=== PATIENT | female | born 1975 | race Caucasian/White ===

== ENCOUNTER 2018-03-11 11:55 | Inpatient (IN) | payer MEDICARE, MEDICAID, SELFPAY ==
[2018-03-11] VITALS (20 sets, daily range): BP systolic 114–156; BP diastolic 65–101; PULSE 92–138; RESP 16–35; TEMP 36.9–37.4; O2SAT 96–100; BMI 39.9; BMI 36.7; BMI 40.0
--- NOTE | 2018-03-11 12:07 | EKG12_ITS ---
Test Reason : DYSRHYTHMIA Blood Pressure : / mmHG Vent. Rate : 111 BPM Atrial Rate : 111 BPM P-R Int : 114 ms QRS Dur : 066 ms QT Int : 326 ms P-R-T Axes : 039 054 045 degrees QTc Int : 443 ms Sinus tachycardia Otherwise normal ECG Confirmed by CARL SAMANO, JAY ([id number]), website/blog editor JOSE MOLINA ([id number]) on 03/13/2018 3:04:38 PM Referred By: BRIGHT Confirmed By:JAY HENRY MD
--- NOTE | 2018-03-11 12:09 | ED.VISSUMM ---
- ER Visit Summary Date of Service: 03/11/18 Chief Complaint: [] Shortness of breath cough low pulse ox History of Present Illness: The patient is a 42 F [] of spina bifida recently admitted to [facility] in [place] for low pulse ox cough fever found to have what sounds like sepsis UTI, per family started on Rocephin discharged on oral cefuroxime about 2 days ago. Per the family she really never improved and during her outpatient stay for the last few days her condition has deteriorated where she continues to be short of breath coughing her pulse ox today was about 77 and she was brought to the hospital at [place] for further management. 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 that she urinates through at times when she does urinate she is straight cath, she has been constipated and recently was started on a bowel regimen and she is been passing runny yellow stool On exam the patient's resting comforting her bed she is on 4 L of oxygen her pulse ox is 99 she just feels tired awake alert family is providing most of her history Physical Examination: [] Vital signs are within normal range resting comforting the bed no distress now that she is on oxygen she is a very short statured individual she has scars to her lower back she has contracted her extremities and her abdomen seems slightly distended her HEENT exam is generally unremarkable her lungs are diminished the heart tones are tachycardic to 100 the abdomen is soft not obviously tender but again slightly distended, there is a stoma in her right lower quadrant that the family reports she urinates out of, rectal exam done with nurse auto damage trainee shows brown stool in the vault no pain no mass she has decreased sensation to her lower extremities which she really cannot move and per family she is awake to her normal mental status Test Results: [] Emergency Department Course and Treatment: [] Given all of the above the low pulse ox the persistence of her symptoms the differential is rather extensive and it would certainly include pneumonia sepsis CHF etc. the patient is never had a DVT or PE, her symptoms began with harsh cough and fever per the family will obtain screening labs flu swab, family reports she had a flu vaccine about a week ago The patient's EKG shows a sinus rhythm nothing acute, the chest x-ray shows nonspecific findings consistent with pulmonary congestion versus interstitial infiltrates, her BNP is about 600, white count is 13, 000, UA shows UTI blood and urine culture sent IV antibiotics started, she has no known history of congestive heart failure at this time I have asked the hospital see her further management and admission she is hemodynamically stable Treatment Plan: [] Disposition: [] Stable admit Impression: [] Dyspnea, possible pneumonia, urinary tract infection, recently treated for sepsis pneumonia and UTI, history of spina bifida This note was generated with [employer] dictation software. It may contain incorrect words, spelling, and punctuation that were not noted in review of the chart prior to signing ED Disposition - Plan for ED Patient: Chief Complaint: Shortness of Breath Referrals: Delores Alford MD [Primary Care Provider] -
--- NOTE | 2018-03-11 12:11 | ED.RN ---
NO OLD EKG'S IN MUSE.
--- NOTE | 2018-03-11 12:14 | ED.DCSUM_ITS ---
- ER Visit Summary Date of Service: 03/11/18 Chief Complaint: [] Shortness of breath cough low pulse ox History of Present Illness: The patient is a 42 F [] of spina bifida recently admitted to [facility] in [place] for low pulse ox cough fever found to have what sounds like sepsis UTI, per family started on Rocephin discharged on oral cefuroxime about 2 days ago. Per the family she really never improved and during her outpatient stay for the last few days her condition has deteriorated where she continues to be short of breath coughing her pulse ox today was about 77 and she was brought to the hospital at [place] for further management. 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 that she urinates through at times when she does urinate she is straight cath, she has been constipated and recently was started on a bowel regimen and she is been passing runny yellow stool On exam the patient's resting comforting her bed she is on 4 L of oxygen her pulse ox is 99 she just feels tired awake alert family is providing most of her history Physical Examination: [] Vital signs are within normal range resting comforting the bed no distress now that she is on oxygen she is a very short statured individual she has scars to her lower back she has contracted her extremities and her abdomen seems slightly distended her HEENT exam is generally unremarkable her lungs are diminished the heart tones are tachycardic to 100 the abdomen is soft not obviously tender but again slightly distended, there is a stoma in her right lower quadrant that the family reports she urinates out of, rectal exam done with nurse children's ministry director shows brown stool in the vault no pain no mass she has decreased sensation to her lower extremities which she really cannot move and per family she is awake to her normal mental status Test Results: [] Emergency Department Course and Treatment: [] Given all of the above the low pulse ox the persistence of her symptoms the differential is rather extensive and it would certainly include pneumonia sepsis CHF etc. the patient is never had a DVT or PE, her symptoms began with harsh cough and fever per the family will obtain screening labs flu swab, family reports she had a flu vaccine about a week ago The patient's EKG shows a sinus rhythm nothing acute, the chest x-ray shows nonspecific findings consistent with pulmonary congestion versus interstitial infiltrates, her BNP is about 600, white count is 13, 000, UA shows UTI blood and urine culture sent IV antibiotics started, she has no known history of congestive heart failure at this time I have asked the hospital see her further management and admission she is hemodynamically stable Treatment Plan: [] Disposition: [] Stable admit Impression: [] Dyspnea, possible pneumonia, urinary tract infection, recently treated for sepsis pneumonia and UTI, history of spina bifida This note was generated with [employer] dictation software. It may contain incorrect words, spelling, and punctuation that were not noted in review of the chart prior to signing ED Disposition - Plan for ED Patient: Chief Complaint: Shortness of Breath Referrals: Delores Alford MD [Primary Care Provider] -
--- NOTE | 2018-03-11 12:20 | RAD_ITS ---
STUDY: X-RAY CHEST REASON FOR EXAM: Female, 42 years old. Shortness of breath TECHNIQUE: Single view of the chest was obtained COMPARISON: August 22, 2014 chest radiograph FINDINGS: Dextroconvex scoliotic curvature with prior rhonda fixation seen. Blunting of the left costophrenic angle may relate with a small left-sided pleural effusion. Increased bilateral reticular markings may relate with pulmonary vascular congestion or interstitial pneumonitis. IMPRESSION: Small left-sided pleural effusion versus pleural thickening. Bilateral increased reticular markings may relate with mild pulmonary vascular congestion or interstitial pneumonitis Electronically Signed: James Burks, at 13:06 EDT Tel , Service support , RAD/Chest 1 View (Portable)
[2018-03-11] MEDS: Ipratropium/Albuterol Sulfate 3 ML AMPUL.NEB INHALATION ×2 (12:26→18:51)
[2018-03-11 12:36] LABS: Mucous, Urine 0 SEEN /hpf (<or=2+)
[2018-03-11 12:46] LABS: Color, Urine Yellow (Yellow); Glucose, Dipstick Normal (Normal); Leukocyte Esterase-Dipstick 100 /ul (Negative); Nitrite-Dipstick Negative (Negative); Occult Blood-Urine 150 /ul (Negative); Protein-Dipstick 100 mg/dl (Negative); Urine Bilirubin Dipstick Negative (Negative); Urine Clarity Sl. Cloudy (Clear); Urine Urobilinogen Normal (Normal)
[2018-03-11 12:49] LABS: Ketone-Dipstick 150 mg/dl (Negative)
[2018-03-11 12:58] LABS: Bacteria RARE /hpf (None Seen); Red Blood Cells-Urine 0-5 SEEN /hpf (0-5); Squamous Epithelial Cells - UA 0-5 SEEN /hpf (5-10); White Blood Cells 5-10 SEEN /hpf (0-5)
[2018-03-11 13:20] LABS: Anion Gap 9 (5-15); BUN 11 mg/dL (7-18); BUN/Creat Ratio 15.4 RATIO (10-20); Calcium,Total 8.4 mg/dL (8.5-10.1); Chloride 107 mmol/L (98-107); Creatinine, Serum 0.72 mg/dL (0.55-1.02); EST Glomerular Filtration Rate 95 mL/min (>60); Est Glom Filt Rate - Afr Amer 115 mL/min (>60); Glucose 70 mg/dL (74-106); Potassium 4.2 mmol/L (3.5-5.1); Sodium Level 142 mmol/L (136-145)
[2018-03-11 13:32] LABS: Absolute Lymphocyte Count 1.87 X10^3/ul (0.83-4.51); Absolute Neutrophil Count 9.7 X10^3/uL (2.0-7.7); Basophil# 0.08 X10^3/uL; Basophil% 0.6 % (0-1); Differential Indicated SCAN CRITERIA MET; Eosinophils% 1.5 % (0-5); Hematocrit 33.4 % (37-47); Hemoglobin 10.5 g/dl (12.0-15.0); Lymphocyte # 1.87 X10^3/ul (4.0); Lymphocyte % 13.8 % (19-41); Mean Corp Hgb Conc 31.4 g/gl (32-36); Mean Corpuscular Hgb 29.5 pg (27.0-32.0); Mean Corpuscular Volume 93.8 fL (81-99); Mean Platelet Vol. 9.9 fl (6.2-12.0); Monocyte# 1.63 X10^3/uL; Monocyte% 12.1 % (0-10); Neutrophil # 9.68 X10^3/uL (2.7-7.7); Neutrophil % 71.6 % (47-70); POSITIVE COUNT NO; POSITIVE DIFFERENTIAL YES; POSITIVE MORPHOLOGY YES; Platelet Count 328 K/mm3 (150-450); RBC Distribution Width CV 15.3 % (11.6-14.6); RBC Distribution Width SD 50.3 fl (35.1-43.9); Red Blood Count 3.56 M/mm3 (4.2-5.4); White Blood Count 13.5 K/mm3 (4.4-11.0)
[2018-03-11 13:33] LABS: Differential Comment SCANNED
[2018-03-11 13:36] LABS: BNP,B-Type NATRIURETIC PEPTIDE 561.7 pg/mL (0-100)
--- NOTE | 2018-03-11 14:16 | ED.RN ---
ED physician cancelled 2nd set of blood cultures, pt has had IV and blood draw attempts multiple times.
--- NOTE | 2018-03-11 14:17 | NURSING ---
FAXED TO [facility] FOR OLD CHART FROM THERE. HOSPITALIST PAGED
--- NOTE | 2018-03-11 14:19 | NURSING ---
DR STEVIE NOVOA
--- NOTE | 2018-03-11 14:29 | NURSING ---
DR HUBBARD IN WITH PATIENT
--- NOTE | 2018-03-11 14:30 | ED.RN ---
lab was then able to get 2nd set of blood cultures
--- NOTE | 2018-03-11 14:50 | PCM.HP.STD ---
Problem List (1) Acute respiratory failure with hypoxia Status: Acute (2) Sepsis Status: Acute (3) Gram-negative pneumonia Status: Acute History of Present Illness Date of Admission: 03/11/18 Chief Complaint: shortness of breath. The patient is a 42 year old F who was admitted at [facility] for constipation as well as Medardo tract infection and sepsis. Patient was able to have a small bowel movement while she was there and I was told that she is short of breath because she is constipated on top of her scoliosis and spina bifida. Was discharged yesterday and was doing okay but today, patient was short of breath. They checked her pulse ox and patient was noted to be in the 70% range. Patient was sent to the emergency room at [facility]. In there the workup showed patient was septic did have a white count. Patient received Rocephin and vancomycin. Blood cultures were drawn. Patient has been having some increasing abdominal distention as well per her family. She has been having some nausea and some vomiting. Patient's last normal bowel movement was about 10 days ago. Family states that they try to have her have a bowel movement twice a week. Patient has no knowledge of when she does have to have a bowel movement given the lack of sensation.[] Past Medical History Past Medical History (Chronic Problems): Chronic Problems (Last Updated 03/11/18 @ 14:54 by Cecil Butts DO) Edema of right lower extremity (Chronic) Spina bifida (Chronic) Medical History: Medical History (Last Updated 03/11/18 @ 14:54 by Cecil Butts DO) Acquired scoliosis M41.9 Spina bifida Q05.9 Allergies amoxicillin [From Augmentin] Allergy (Verified 03/11/18 12:10) Diarrhea azithromycin [From Zithromax Z-Turner] Allergy (Verified 03/11/18 12:10) Diarrhea ciprofloxacin [From Cipro] Allergy (Verified 03/11/18 12:10) Pain in joints clavulanic acid [From Augmentin] Allergy (Verified 03/11/18 12:10) Diarrhea Home Medications: Ambulatory Orders Medication Instructions Recorded Multivitamins,Therapeutic 1 tablet PO DAILY 04/24/13 [Multivitamin] Oxybutynin Chloride [Ditropan Xl] 15 mg PO DAILY 04/24/13 Paroxetine HCl [Paxil] 40 mg PO DAILY 04/24/13 Calcium Carbonate/Vitamin D3 1 each PO DAILY 04/14/16 [Calcium 500-Vit D3 200 Tablet] Cefuroxime Axetil [Ceftin] 250 mg PO BID 04/14/16 Ascorbic Acid [Vitamin C] 1,000 mg PO DAILY 03/11/18 Bacillus Coagulans [Probiotic] 1 each PO DAILY 03/11/18 Docusate Sodium [Colace] 100 mg PO QHS 03/11/18 MedroxyPROGESTERone [Depo-Provera] 150 mg IM .[id number] 03/11/18 Omeprazole [Prilosec] 20 mg PO QHS 03/11/18 Polyethylene Glycol 3350 [Miralax] 17 gm PO DAILY PRN 03/11/18 Surgical History: Surgical History (Last Updated 03/11/18 @ 14:55 by Cecil Butts DO) Hx of cholecystectomy Z90.49 Surgical History: cholecystectomy, - - vertebral rods. ileostomy Psychiatric History: No pertinent psych hx CT SCAN SPECIAL PROCEDURES TECHNOLOGIST History: No pertinent CT SCAN SPECIAL PROCEDURES TECHNOLOGIST history Lives: With Family Smoking Status: Never smoker Tobacco Use: Non-smoker Alcohol: None Drugs: None - *Family History Maternal History Items: - - hypothyroidism Review of Systems Constitutional: Reports: Chills. Denies: Fever Eyes: Denies: Blurred vision, Double vision HEENT: Denies: Head Aches, Sinus Congestion, Sinus Drainage Cardiovascular: Reports: Chest Pain. Denies: Palpitations Respiratory: Reports: Shortness of Breath, Shortness of breath at rest. Denies: Cough Gastrointestinal: Denies: Abdominal Pain, Nausea, Vomiting Genitourinary: Reports: - - ileostomy. Denies: Dysuria Musculoskeletal: Denies: Joint Pain, Joint Tenderness Skin: Denies: Rash, Wounds Neurological: Reports: - - paraplegic. wheelchair-bound. Denies: Balance problems Psychiatric: Denies: Anxiety, Depression Hematologic/ Lymphatic: Denies: Easy Bruising, Easy Bleeding, Hx of blood clot Comment: All review of systems are negative except as mentioned in the history of present illness and the other review of systems. VTE Information - Inpt Only VTE Present on Admission: No VTE Pharm Prophylaxis ordered?: Yes Patient Problems: Active and Suspected Problems (Last Updated 03/11/18 @ 14:54 by Cecil Butts DO) Acute respiratory failure with hypoxia (Acute) Sepsis (Acute) Gram-negative pneumonia (Acute) - Physical Exam General: Alert, Cooperative, No apparent distress HEENT: Atraumatic, PERRLA, EOMI, Normocephalic, - - No scleral icterus Oral: Moist Mucosa, No Gingival or Mucosal Lesions/ Ulcerations Neck: No Nodes, Thyroid Normal Size and Texture Lungs: Diminished, - - Few crackles in right lung field Abdomen: Soft, Non Tender, Distended, - - Ileostomy Extremities: No edema, Capillary Refill Less than 3 Seconds Skin: No rashes, No breakdown Musculoskeletal: No Tenderness to Palpation of Joints or Extremities, Muscle Wasting Neurological: - - No clonus. Muscle strength 5 out of 5 in upper extremities. Psych/Mental Status: Normal Affect, Appropriate Vital Signs Temp Pulse Resp BP Pulse Ox 36.9 C 109 H 22 H 135/90 H 99 03/11/18 11:56 03/11/18 14:19 03/11/18 14:19 03/11/18 14:19 03/11/18 14:19 Oxygen Flow Rate (L/min) 2 Oxygen Delivery Method Nasal Cannula Weight: 80.9 kg Body Mass Index (BMI) 39.9 Microbiology Past 72 Hours 03/11/18 12:40 Influenza Types A,B Direct FA (KELSEY) - Final Mucosa - Nose Laboratory Tests Past 24 Hrs 03/11/18 03/11/18 03/11/18 12:30 12:50 12:50 WBC 13.5 H RBC 3.56 L Hgb 10.5 L Hct 33.4 L MCV 93.8 MCH 29.5 MCHC 31.4 L RDW 15.3 H RDW Differential 50.3 H Plt Count 328 MPV 9.9 Immature Gran % (Auto) 0.400 Neut % (Auto) 71.6 H Lymph % (Auto) 13.8 L [place] % (Auto) 12.1 H Eos % (Auto) 1.5 Baso % (Auto) 0.6 Absolute Neuts (auto) 9.7 H Absolute Lymphs (auto) 1.87 Total Counted Not Reportable Differential Comment SCANNED Sodium 142 Potassium 4.2 Chloride 107 Carbon Dioxide 26.0 Anion Gap 9 BUN 11 Creatinine 0.72 Estim Creat Clear Calc 130.00 Est GFR (MDRD) Af Amer 115 Est GFR (MDRD) Non-Af 95 BUN/Creatinine Ratio 15.4 Glucose 70 L Lactic Acid Calcium 8.4 L Troponin I 0.043 B-Natriuretic Peptide Urine Color Yellow Urine Clarity Sl. Cloudy Urine pH 6.0 Ur Specific [place] 1.020 Urine Protein 100 H Urine Glucose (UA) Normal Urine Ketones 150 H Urine Occult Blood 150 H Urine Nitrite Negative Urine Bilirubin Negative Urine Urobilinogen Normal Ur Leukocyte Esterase 100 H Urine RBC 0-5 SEEN Urine WBC 5-10 SEEN Ur Squamous Epith Cells 0-5 SEEN Urine Bacteria RARE Urine Mucus 0 SEEN 03/11/18 03/11/18 12:50 12:50 WBC RBC Hgb Hct MCV MCH MCHC RDW RDW Differential Plt Count MPV Immature Gran % (Auto) Neut % (Auto) Lymph % (Auto) [place] % (Auto) Eos % (Auto) Baso % (Auto) Absolute Neuts (auto) Absolute Lymphs (auto) Total Counted Differential Comment Sodium Potassium Chloride Carbon Dioxide Anion Gap BUN Creatinine Estim Creat Clear Calc Est GFR (MDRD) Af Amer Est GFR (MDRD) Non-Af BUN/Creatinine Ratio Glucose Lactic Acid 1.0 Calcium Troponin I B-Natriuretic Peptide 561.7 H Urine Color Urine Clarity Urine pH Ur Specific [place] Urine Protein Urine Glucose (UA) Urine Ketones Urine Occult Blood Urine Nitrite Urine Bilirubin Urine Urobilinogen Ur Leukocyte Esterase Urine RBC Urine WBC Ur Squamous Epith Cells Urine Bacteria Urine Mucus EKG reviewed showed normal sinus rhythm without any acute changes. Chest x-ray personally reviewed and showed severe scoliosis with concavity to the right. Does show diminished in lung field in the left with some slight opacity. Unchanged from 2016. Assessment/Plan All Active Problems (Last Updated 03/11/18 @ 14:54 by Cecil Butts DO) Wound, open, foot (Resolved) Acute respiratory failure with hypoxia (Acute) Sepsis (Acute) Gram-negative pneumonia (Acute) 1. Acute hypoxic respiratory failure Currently improved with oxygen Patient was down to 70-80% range at home Unclear this is a specific diagnosis but partly attributable to the patient's severe scoliosis. Unable to evaluate rule out pneumonia at this time. Bronchodilators and pulmonary toilet 2. Sepsis Present on admission Patient was recently treated for a urinary tract infection at the outside hospital Will continue with vancomycin and aztreonam for potential gram-negative pneumonia. 3. Suspected gram-negative pneumonia. Patient was just hospitalized greater than 48 hours at [facility]. Vancomycin and meropenem Pulmonary toilet Check urinary antigens for Streptococcus and Legionella Check influenza 4. Spina bifida and severe scoliosis scoliosis Complicating care 5. DVT prophylaxis with Lovenox 6. Constipation Patient's last normal bowel movement was about 10 days ago We will check an abdominal x-ray as patient does have some abdominal distention. Evaluate for ileus or small bowel obstruction. Discussed with patient's family at bedside. All questions were answered. Code Visit Inpatient E&M: [id number] Init Hosp L3
--- NOTE | 2018-03-11 14:52 | NURSING ---
106 SEPSIS, PNEUMONIA STEVIE
--- NOTE | 2018-03-11 14:54 | HP.PCM_ITS ---
Problem List (1) Acute respiratory failure with hypoxia Status: Acute (2) Sepsis Status: Acute (3) Gram-negative pneumonia Status: Acute History of Present Illness Date of Admission: 03/11/18 Chief Complaint: shortness of breath. The patient is a 42 year old F who was admitted at [facility] for constipation as well as Medardo tract infection and sepsis. Patient was able to have a small bowel movement while she was there and I was told that she is short of breath because she is constipated on top of her scoliosis and spina bifida. Was discharged yesterday and was doing okay but today, patient was short of breath. They checked her pulse ox and patient was noted to be in the 70% range. Patient was sent to the emergency room at [facility]. In there the workup showed patient was septic did have a white count. Patient received Rocephin and vancomycin. Blood cultures were drawn. Patient has been having some increasing abdominal distention as well per her family. She has been having some nausea and some vomiting. Patient's last normal bowel movement was about 10 days ago. Family states that they try to have her have a bowel movement twice a week. Patient has no knowledge of when she does have to have a bowel movement given the lack of sensation.[] Past Medical History Past Medical History (Chronic Problems): Chronic Problems (Last Updated 03/11/18 @ 14:54 by Cecil Butts DO) Edema of right lower extremity (Chronic) Spina bifida (Chronic) Medical History: Medical History (Last Updated 03/11/18 @ 14:54 by Cecil Butts DO) Acquired scoliosis M41.9 Spina bifida Q05.9 Allergies amoxicillin [From Augmentin] Allergy (Verified 03/11/18 12:10) Diarrhea azithromycin [From Zithromax Z-Turner] Allergy (Verified 03/11/18 12:10) Diarrhea ciprofloxacin [From Cipro] Allergy (Verified 03/11/18 12:10) Pain in joints clavulanic acid [From Augmentin] Allergy (Verified 03/11/18 12:10) Diarrhea Home Medications: Ambulatory Orders Medication Instructions Recorded Multivitamins,Therapeutic 1 tablet PO DAILY 04/24/13 [Multivitamin] Oxybutynin Chloride [Ditropan Xl] 15 mg PO DAILY 04/24/13 Paroxetine HCl [Paxil] 40 mg PO DAILY 04/24/13 Calcium Carbonate/Vitamin D3 1 each PO DAILY 04/14/16 [Calcium 500-Vit D3 200 Tablet] Cefuroxime Axetil [Ceftin] 250 mg PO BID 04/14/16 Ascorbic Acid [Vitamin C] 1,000 mg PO DAILY 03/11/18 Bacillus Coagulans [Probiotic] 1 each PO DAILY 03/11/18 Docusate Sodium [Colace] 100 mg PO QHS 03/11/18 MedroxyPROGESTERone [Depo-Provera] 150 mg IM .[id number] 03/11/18 Omeprazole [Prilosec] 20 mg PO QHS 03/11/18 Polyethylene Glycol 3350 [Miralax] 17 gm PO DAILY PRN 03/11/18 Surgical History: Surgical History (Last Updated 03/11/18 @ 14:55 by Cecil Butts DO) Hx of cholecystectomy Z90.49 Surgical History: cholecystectomy, - - vertebral rods. ileostomy Psychiatric History: No pertinent psych hx TRIP RIDER History: No pertinent TRIP RIDER history Lives: With Family Smoking Status: Never smoker Tobacco Use: Non-smoker Alcohol: None Drugs: None - *Family History Maternal History Items: - - hypothyroidism Review of Systems Constitutional: Reports: Chills. Denies: Fever Eyes: Denies: Blurred vision, Double vision HEENT: Denies: Head Aches, Sinus Congestion, Sinus Drainage Cardiovascular: Reports: Chest Pain. Denies: Palpitations Respiratory: Reports: Shortness of Breath, Shortness of breath at rest. Denies: Cough Gastrointestinal: Denies: Abdominal Pain, Nausea, Vomiting Genitourinary: Reports: - - ileostomy. Denies: Dysuria Musculoskeletal: Denies: Joint Pain, Joint Tenderness Skin: Denies: Rash, Wounds Neurological: Reports: - - paraplegic. wheelchair-bound. Denies: Balance problems Psychiatric: Denies: Anxiety, Depression Hematologic/ Lymphatic: Denies: Easy Bruising, Easy Bleeding, Hx of blood clot Comment: All review of systems are negative except as mentioned in the history of present illness and the other review of systems. VTE Information - Inpt Only VTE Present on Admission: No VTE Pharm Prophylaxis ordered?: Yes Patient Problems: Active and Suspected Problems (Last Updated 03/11/18 @ 14:54 by Cecil Butts DO) Acute respiratory failure with hypoxia (Acute) Sepsis (Acute) Gram-negative pneumonia (Acute) - Physical Exam General: Alert, Cooperative, No apparent distress HEENT: Atraumatic, PERRLA, EOMI, Normocephalic, - - No scleral icterus Oral: Moist Mucosa, No Gingival or Mucosal Lesions/ Ulcerations Neck: No Nodes, Thyroid Normal Size and Texture Lungs: Diminished, - - Few crackles in right lung field Abdomen: Soft, Non Tender, Distended, - - Ileostomy Extremities: No edema, Capillary Refill Less than 3 Seconds Skin: No rashes, No breakdown Musculoskeletal: No Tenderness to Palpation of Joints or Extremities, Muscle Wasting Neurological: - - No clonus. Muscle strength 5 out of 5 in upper extremities. Psych/Mental Status: Normal Affect, Appropriate Vital Signs Temp Pulse Resp BP Pulse Ox 36.9 C 109 H 22 H 135/90 H 99 03/11/18 11:56 03/11/18 14:19 03/11/18 14:19 03/11/18 14:19 03/11/18 14:19 Oxygen Flow Rate (L/min) 2 Oxygen Delivery Method Nasal Cannula Weight: 80.9 kg Body Mass Index (BMI) 39.9 Microbiology Past 72 Hours 03/11/18 12:40 Influenza Types A,B Direct FA (KELSEY) - Final Mucosa - Nose Laboratory Tests Past 24 Hrs 03/11/18 03/11/18 03/11/18 12:30 12:50 12:50 WBC 13.5 H RBC 3.56 L Hgb 10.5 L Hct 33.4 L MCV 93.8 MCH 29.5 MCHC 31.4 L RDW 15.3 H RDW Differential 50.3 H Plt Count 328 MPV 9.9 Immature Gran % (Auto) 0.400 Neut % (Auto) 71.6 H Lymph % (Auto) 13.8 L Placer % (Auto) 12.1 H Eos % (Auto) 1.5 Baso % (Auto) 0.6 Absolute Neuts (auto) 9.7 H Absolute Lymphs (auto) 1.87 Total Counted Not Reportable Differential Comment SCANNED Sodium 142 Potassium 4.2 Chloride 107 Carbon Dioxide 26.0 Anion Gap 9 BUN 11 Creatinine 0.72 Estim Creat Clear Calc 130.00 Est GFR (MDRD) Af Amer 115 Est GFR (MDRD) Non-Af 95 BUN/Creatinine Ratio 15.4 Glucose 70 L Lactic Acid Calcium 8.4 L Troponin I 0.043 B-Natriuretic Peptide Urine Color Yellow Urine Clarity Sl. Cloudy Urine pH 6.0 Ur Specific Bryant 1.020 Urine Protein 100 H Urine Glucose (UA) Normal Urine Ketones 150 H Urine Occult Blood 150 H Urine Nitrite Negative Urine Bilirubin Negative Urine Urobilinogen Normal Ur Leukocyte Esterase 100 H Urine RBC 0-5 SEEN Urine WBC 5-10 SEEN Ur Squamous Epith Cells 0-5 SEEN Urine Bacteria RARE Urine Mucus 0 SEEN 03/11/18 03/11/18 12:50 12:50 WBC RBC Hgb Hct MCV MCH MCHC RDW RDW Differential Plt Count MPV Immature Gran % (Auto) Neut % (Auto) Lymph % (Auto) Placer % (Auto) Eos % (Auto) Baso % (Auto) Absolute Neuts (auto) Absolute Lymphs (auto) Total Counted Differential Comment Sodium Potassium Chloride Carbon Dioxide Anion Gap BUN Creatinine Estim Creat Clear Calc Est GFR (MDRD) Af Amer Est GFR (MDRD) Non-Af BUN/Creatinine Ratio Glucose Lactic Acid 1.0 Calcium Troponin I B-Natriuretic Peptide 561.7 H Urine Color Urine Clarity Urine pH Ur Specific Bryant Urine Protein Urine Glucose (UA) Urine Ketones Urine Occult Blood Urine Nitrite Urine Bilirubin Urine Urobilinogen Ur Leukocyte Esterase Urine RBC Urine WBC Ur Squamous Epith Cells Urine Bacteria Urine Mucus EKG reviewed showed normal sinus rhythm without any acute changes. Chest x-ray personally reviewed and showed severe scoliosis with concavity to the right. Does show diminished in lung field in the left with some slight opacity. Unchanged from 2016. Assessment/Plan All Active Problems (Last Updated 03/11/18 @ 14:54 by Cecil Butts DO) Wound, open, foot (Resolved) Acute respiratory failure with hypoxia (Acute) Sepsis (Acute) Gram-negative pneumonia (Acute) 1. Acute hypoxic respiratory failure * Currently improved with oxygen * Patient was down to 70-80% range at home * Unclear this is a specific diagnosis but partly attributable to the patient's severe scoliosis. Unable to evaluate rule out pneumonia at this time. * Bronchodilators and pulmonary toilet 2. Sepsis * Present on admission * Patient was recently treated for a urinary tract infection at the outside hospital * Will continue with vancomycin and aztreonam for potential gram-negative pneumonia. 3. Suspected gram-negative pneumonia. * Patient was just hospitalized greater than 48 hours at [facility]. * Vancomycin and meropenem * Pulmonary toilet * Check urinary antigens for Streptococcus and Legionella * Check influenza 4. Spina bifida and severe scoliosis scoliosis * Complicating care 5. DVT prophylaxis with Lovenox 6. Constipation * Patient's last normal bowel movement was about 10 days ago * We will check an abdominal x-ray as patient does have some abdominal distention. Evaluate for ileus or small bowel obstruction. Discussed with patient's family at bedside. All questions were answered. Code Visit Inpatient E&M: 10795 Init Hosp L3
[2018-03-11] MEDS: Vancomycin IV 1,000 MG/200 ML BAG 200 MG IV (15:26)
--- NOTE | 2018-03-11 15:48 | CT_ITS ---
STUDY: CT CHEST WITH CONTRAST REASON FOR EXAM: Female, 42 years old. Respiratory failure RADIATION DOSAGE (If Supplied By Facility): CTDIvol = ( 15.06 ) mGy, DLP = ( 513.40 ) mGycm TECHNIQUE: Transaxial imaging was performed following intravenous administration of 100 ml of Isovue 300 contrast material. Sagittal and coronal reconstructions were performed. Individualized dose optimization techniques were used for this CT. COMPARISON: Chest radiograph from the same day FINDINGS: There is motion artifact on the images. The lungs are under aerated. There are no focal airspace opacities. There is marked volume loss on the left side compared to the right. There is no demonstrated pleural abnormality. The heart is normal in size. The mediastinum is unremarkable. The hilar regions are unremarkable. The pulmonary arteries are unremarkable. The thoracic aorta is within normal limits. There is marked dextroscoliosis of the thoracic spine. Mota rods are present. The ribs on the left side are smaller than the right. A ventriculoperitoneal shunt catheter traverses the anterior left chest. There are no acute abnormalities in the upper abdomen. CT/Chest WITH Contrast IMPRESSION: There is no focal consolidation. There is no pleural effusion. The appearance on chest radiograph is due to decreased lung volume on the left side compared to the right secondary to small size of the left chest cavity. This is from severe dextroscoliosis of the thoracic spine and abnormal shape of the left ribs. Electronically Signed: Shell Ochoa MD at 20:01 EDT Tel Direct: [phone], Service support ,
--- NOTE | 2018-03-11 16:11 | RAD_ITS ---
STUDY: X-RAY - ABDOMEN/PELVIS REASON FOR EXAM: Female, 42 years old. Abdominal pain TECHNIQUE: Supine views of the abdomen and pelvis were obtained. COMPARISON: Chest radiograph from the same day FINDINGS: There is atelectasis in the left lung base. There is an unremarkable bowel gas pattern. There is no demonstrated free abdominal air. There is contrast in the collecting systems of both kidneys and in the bladder after CT scan. The soft tissues are unremarkable. Mota rods are present in the lower thoracic and lumbar spine. The lower aspect of the right Mota rhonda is broken. 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 RAD/Abdomen Single View (Portable) IMPRESSION: No acute abnormalities are seen in the abdomen or pelvis. Electronically Signed: Shell Ochoa MD at 20:07 EDT Tel Direct: [phone], Service support ,
--- NOTE | 2018-03-11 18:45 | NURSING ---
nurse called into the room by family who states that the patient pulled out her IV attempted twice to restart Iv without success. pt then began getting very anxious, tesnsing up her arms, and pulling the blankets over her head, and coughing, having grunting respirations, seeming to be holding her breath and possibly having a panic attack. pt reassured and comforted by nurse and family. her lips began to look cyanotic, pulse ox checked and was 83% on 2L NC. pt continues to have respiratory distress. Dr Butts called and notified of above, no new orders obtained.
--- NOTE | 2018-03-11 19:10 | NURSING ---
Pt continues to have respiratory distress, pulse ox continues to be around 88% to 90%on 100% 02 non rebreather mask. but having difficulty obtaining accurate pulse ox as pt is very agitated, and moving her arms and tensing up a lot. have been unable to obtain any IV access due to pt's condition. attempted to place pt on bipap, but unable because she states that she is nauseated. Dr Butts notified again, and he is now to the room to see the patient. He states to transfer the patient to ICU.
--- NOTE | 2018-03-11 19:51 | CPS ---
pep and smi in room -pt unable to do at this time
--- NOTE | 2018-03-11 20:00 | NURSING ---
report called and patient transferred to ICU 201.
--- NOTE | 2018-03-11 20:40 | PCM.RX.CS ---
Consult Pharmacy has been consulted to manage selected antiobiotic: Vancomycin Type of Consult: New start Suspected Infection: Sepsis Prior Doses of Antibiotics Received/Current Regimen: Medications Vancomycin HCl (Vancomycin) 1,000 mg in 200 mls @ 200 mls/hr IV Q8H MONE Discontinued Medications Vancomycin HCl (Vancomycin) 1,000 mg in 200 mls @ 200 mls/hr IV X1 ONE Stop: 03/11/18 14:58 Last Admin: 03/11/18 15:26 Dose: 200 mls/hr Labs: Sodium 142 mmol/L (136-145) 03/11/18 12:50 Potassium 4.2 mmol/L (3.5-5.1) 03/11/18 12:50 Chloride 107 mmol/L (98-107) 03/11/18 12:50 Carbon Dioxide 26.0 mmol/L (21.0-32.0) 03/11/18 12:50 Anion Gap 9 (5-15) 03/11/18 12:50 BUN 11 mg/dL (7-18) 03/11/18 12:50 Creatinine 0.72 mg/dL (0.55-1.02) 03/11/18 12:50 Est GFR (MDRD) Af Amer 115 mL/min (>60) 03/11/18 12:50 Est GFR (MDRD) Non-Af 95 mL/min (>60) 03/11/18 12:50 BUN/Creatinine Ratio 15.4 RATIO (10-20) 03/11/18 12:50 Glucose 70 mg/dL (74-106) L 03/11/18 12:50 Microbiology: Microbiology 03/11/18 12:40 Mucosa - Nose Influenza Types A,B Direct FA (KELSEY) - Final Weight used for dosin.1 kg Estimated Creatinine Clearance: 130 Goal Trough: 15-20 mcg/mL Pharmacy Plan for Drug Dosing: Pharmacy Service will continue to monitor and adjust dosing as required. Follow-Up Labs: Trough Vancomycin Labs to be done on [date and time ordered]: 03/12/18 @1500
--- NOTE | 2018-03-11 21:14 | PCM.OP.BLANK ---
Problem List (1) Acute respiratory failure with hypoxia Status: Acute (2) Sepsis Status: Acute (3) Gram-negative pneumonia Status: Acute Operative Report Date of Procedure: 03/11/18 Right internal jugular triple lumen catheter Reason: IV access Risks and benefits were explained to the patient's mother and daughter. Risk being bleeding and amongst others. They agreed to proceed. Procedure: Using sterile technique. Area was prepped and draped in a sterile fashion. Using ultrasound guidance the right internal jugular was identified and the skin was locally anesthetized with lidocaine. Using ultrasound guidance the catheter was cannulated and the guidewire was unable to be advanced. Was reattempted and again successful for cannulation and the guidewire was able to be advanced. It was dilated but the triple-lumen catheter could not be advanced over the guidewire. There was dark nonpulsatile blood noted. The guidewire and drip and catheter were completely removed and pressure was applied for 5 minutes. Patient had little bit of bruising in the area. Patient has a very short stature and her there may be some anatomical issue that may be prohibitive to advancing in the catheter. I evaluated the patient femoral area and there is significant yeast burden in that area region and feel putting a line would pose the patient to additional risks for infection. Follow-up chest x-ray currently pending.
--- NOTE | 2018-03-11 21:30 | RAD_ITS ---
STUDY: X-RAY CHEST REASON FOR EXAM: Female, 42 years old. Central line attempt TECHNIQUE: A single frontal view of the chest was obtained. COMPARISON: Chest radiograph from the same day FINDINGS: A ventriculoperitoneal shunt catheter traverses the left chest. The lungs are underaerated. There are increased interstitial markings throughout the lungs. There are no focal airspace opacities. There is no demonstrated pleural abnormality. The cardiac silhouette is normal in size allowing for low volume inspiration. The mediastinum and hilar regions are unremarkable. Normal visualized pulmonary arteries. Normal visualized aortic arch and descending thoracic aorta. There is marked dextroscoliosis of the thoracic spine. Mota rods are present in the lower thoracic spine. The visualized ribs, clavicles, and shoulders are unremarkable. There is no demonstrated abnormality of the visualized upper abdomen. RAD/CXR for Line Placement IMPRESSION: There are no acute abnormalities. There is no evidence of pneumothorax on the right side. Electronically Signed: Shell Ochoa MD at 22:12 EDT Tel Direct: [phone], Service support ,
--- NOTE | 2018-03-11 22:36 | ECHOCS_ITS ---
Reason For Study: CHF Procedure This was a 2D Doppler, Color Flow transthoracic echocardiogram. The study was technically difficult. Contrast injection was performed. The study was technically limited. Exam performed portable in ICU/CCU. Left Ventricle Normal LV size. Left ventricular systolic function is normal. The estimated ejection fraction is 60 %. No regional wall motion abnormalities noted. Right Ventricle Normal RV size. Normal systolic function. Atria Normal left atrium. Normal right atrium. Mitral Valve Normal mitral valve. Tricuspid Valve Normal tricuspid valve. Mild (1+) tricuspid valve insufficiency. Pulmonary artery systolic pressure is 37 mmHg. Aortic Valve Normal aortic valve. Trisinus/trileaflet aortic valve. Pulmonic Valve The pulmonic valve is not well visualized. Great Vessels Normal aortic root. The pulmonary artery is normal size. Normal inferior vena cava. Pericardium/Pleural No pericardial effusion. Medication Diluted definity 3ml given slow IV push to enhance endocardial definition. MMode/2D Measurements & Calculations LVIDd: 3.4 cm IVSd: 0.62 cm Ao root diam: 3.1 cm LVIDs: 2.3 cm LVPWd: 0.61 cm LA dimension: 3.3 cm FS: 32.8 % LVAd ap4: 22.1 cm2 SV(MOD-sp4): 40.0 ml SV(sp4-el): 41.2 ml EDV(MOD-sp4): 59.3 ml EDV(sp4-el): 60.9 ml LVAs ap4: 11.3 cm2 ESV(MOD-sp4): 19.3 ml ESV(sp4-el): 19.7 ml EF(MOD-sp4): 67.4 % EF(sp4-el): 67.7 % Doppler Measurements & Calculations MV E max mikael: 102.6 cm/sec Lat Peak E' Mikael: 7.4 cm/sec Med Peak E' Mikael: 5.2 cm/sec MV A max mikael: 85.3 cm/sec E/E' lat: 13.8 E/E' med: 19.6 MV E/A: 1.2 Ao V2 max: 122.0 cm/sec LV V1 max: 97.7 cm/sec PA V2 max: 143.5 cm/sec Ao max P.0 mmHg LV V1 max P.8 mmHg TR max mikael: 287.2 cm/sec TR max P.1 mmHg Interpretation Summary Normal LV size. Left ventricular systolic function is normal. The estimated ejection fraction is 60 %. Mild (1+) tricuspid valve insufficiency. Pulmonary artery systolic pressure is 37 mmHg. Contrast injection was performed. The study was technically difficult. Ordering Physician: Cecil Butts Referring Physician: CHRISTOPHE PENA MD Performed By: Brenda Waterman, KARY, RVT
[2018-03-11] MEDS: Pantoprazole Sodium 20 MG Tablet PO (22:54)
[2018-03-11] MEDS: Docusate Sodium 100 MG Capsule PO (22:54)
[2018-03-11] MEDS: Furosemide 40 MG Tablet PO (22:54)
[2018-03-11] MEDS: guaiFENesin 1,200 MG Tablet 1200 MG PO (22:54)
[2018-03-11] MEDS: Azithromycin 250 MG Tablet 500 MG PO (22:54)
[2018-03-12] VITALS (36 sets, daily range): BP systolic 113–158; BP diastolic 69–100; PULSE 93–128; RESP 12–27; TEMP 36.5–37.6; O2SAT 95–100
--- NOTE | 2018-03-12 01:15 | NURSING ---
Spoke with [employer] ray blowing engineer. She said someone will be in touch later this morning with an ETA.
--- NOTE | 2018-03-12 02:30 | CPS ---
PT SWITCHED TO BILEVEL 16/10 35% FROM CPAP OF 8CMH20 30% DUE TO LOW SPO2 AND APNEAS WHILE SLEEPING. PT TOLERATED WELL.
[2018-03-12] MEDS: Ipratropium/Albuterol Sulfate 3 ML AMPUL.NEB INHALATION ×5 (06:34→23:07)
--- NOTE | 2018-03-12 07:35 | PCM.CON.CC ---
Reason for Consult Date of Consultation: 03/12/18 Reason for Consultation: Acute respiratory failure History of Present Illness: The patient is a 42-year-old female, with a history as outlined below, who presented to the emergency department on March 11 with hypoxia and shortness of breath. The patient was recently admitted to [facility] reportedly treated for a urinary tract infection. Per the patient's family, the patient was experiencing shortness of breath even upon her discharge from the outside hospital. They were periodically checking her oxygen saturations in her home environment and in the day leading up to her hospital admission, she was noted to be hypoxic with oxygen saturations in the 70s and 80s. She denies the presence of a cough. However, she does have a history of obstructive sleep apnea, for which she utilizes nocturnal CPAP therapy. She gets around by wheelchair and per the patient's family has good quality of life. On presentation to the emergency department, the patient was initially noted to be afebrile, mildly tachycardic and hemodynamically stable. She was hypoxic requiring supplemental oxygen to maintain saturations. Laboratory evaluation revealed elevated white blood cell count to 13,000. Chemistry profile was largely unremarkable. Serum lactate was within normal limits. Troponin was negative. BNP was elevated to 561. Urinalysis revealed negative nitrates, positive leukocyte esterase and rare bacteria. A CT chest was obtained which revealed no acute cardiopulmonary process. The patient received supplemental IV fluid hydration and was started on antibiotics for suspected sepsis. She was initially admitted to the medical floor, where she later deteriorated with increasing oxygen requirement, requiring a transfer to the medical intensive care unit for ongoing management. Past Medical History Past Medical History (Chronic Problems): Chronic Problems (Last Updated 03/11/18 @ 14:54 by Cecil Butts DO) Edema of right lower extremity (Chronic) Spina bifida (Chronic) Medical History: Medical History (Last Updated 03/11/18 @ 14:54 by Cecil Butts DO) Acquired scoliosis M41.9 Spina bifida Q05.9 Allergies amoxicillin [From Augmentin] Allergy (Verified 03/11/18 12:10) Diarrhea azithromycin [From Zithromax Z-Turner] Allergy (Verified 03/11/18 12:10) Diarrhea ciprofloxacin [From Cipro] Allergy (Verified 03/11/18 12:10) Pain in joints clavulanic acid [From Augmentin] Allergy (Verified 03/11/18 12:10) Diarrhea Home Medications: Ambulatory Orders Medication Instructions Recorded Multivitamins,Therapeutic 1 tablet PO QHS 04/24/13 [Multivitamin] Oxybutynin Chloride [Ditropan Xl] 15 mg PO QHS 04/24/13 Paroxetine HCl [Paxil] 40 mg PO QHS 04/24/13 Calcium Carbonate/Vitamin D3 1 each PO QHS 04/14/16 [Calcium 500-Vit D3 200 Tablet] Cefuroxime Axetil [Ceftin] 250 mg PO BID 04/14/16 Ascorbic Acid [Vitamin C] 1,000 mg PO DAILY 03/11/18 Bacillus Coagulans [Probiotic] 1 each PO QHS 03/11/18 Docusate Sodium [Colace] 100 mg PO QHS 03/11/18 MedroxyPROGESTERone [Depo-Provera] 150 mg IM .[id number] 03/11/18 Omeprazole [Prilosec] 20 mg PO QHS 03/11/18 Polyethylene Glycol 3350 [Miralax] 17 gm PO DAILY PRN 03/11/18 Surgical History: Surgical History (Last Updated 03/11/18 @ 14:55 by Cecil Butts DO) Hx of cholecystectomy Z90.49 Surgical History: cholecystectomy, - - vertebral rods. 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 Lives: With Family Smoking Status: Never smoker Tobacco Use: Non-smoker Alcohol: None Drugs: None - *Family History Maternal History Items: - - hypothyroidism Review of Systems Constitutional: Denies: Chills, Fever Eyes: Denies: Blurred vision, Double vision HEENT: Denies: Head Aches, Sinus Congestion, Sinus Drainage Cardiovascular: Denies: Chest Pain, Palpitations Respiratory: Reports: Shortness of Breath Gastrointestinal: Denies: Abdominal Pain, Nausea, Vomiting Genitourinary: Denies: Dysuria Musculoskeletal: Denies: Joint Pain, Joint Tenderness Skin: Denies: Rash, Wounds Neurological: Denies: Numbness, Tingling, Focal weakness Psychiatric: Reports: Anxiety Hematologic/ Lymphatic: Denies: Easy Bruising, Easy Bleeding, Hx of blood clot Patient Problems: Active and Suspected Problems (Last Updated 03/11/18 @ 14:54 by Cecil Butts DO) Acute respiratory failure with hypoxia (Acute) Sepsis (Acute) Gram-negative pneumonia (Acute) Objective: The patient's most recent lab work, culture data and imaging studies have all been personally reviewed. Strep and urine Legionella antigens were both negative. Urine culture is pending. Rapid influenza screen was negative. Blood cultures are pending. - Physical Exam General: - - Currently on BiPAP. Somnolent but will arouse and answer simple questions. HEENT: Atraumatic, PERRLA, Normocephalic Oral: Dry Mucosa Neck: Supple, No Nodes, Trachea Midline Lungs: No rhonchi, No wheeze, No rales, Diminished Cardiovascular: Regular rate, Regular Rhythm, Normal S1, Normal S2, No murmurs Abdomen: Bowel Sounds Present, Soft, Non Tender Extremities: No clubbing, No edema Skin: No breakdown Musculoskeletal: - - Severe thoracic dextroscoliosis Neurological: Neuro grossly intact Psych/Mental Status: Normal Affect, Appropriate Vital Signs Temp Pulse Resp BP Pulse Ox 99.5 F H 95 15 136/74 H 100 03/12/18 02:00 03/12/18 06:00 03/12/18 06:00 03/12/18 06:00 03/12/18 06:00 Oxygen Flow Rate (L/min) 2 Oxygen Delivery Method Non-Rebreather Weight: 163 lb 5.8 oz Body Mass Index (BMI) 36.7 Intake and Output for Last 24 Hours 03/10/18 03/11/18 03/12/18 23:59 23:59 23:59 Intake Total 1135 / 1135 Output Total 650 / 650 575 / 575 Balance 485 / 485 -575 / -575 Microbiology Past 72 Hours 03/11/18 12:20 Legionella Antigen - Final Urine Catheter - Catheter 03/11/18 12:20 Streptococcus pneumoniae Antigen (M - Final Urine Catheter - Catheter 03/11/18 12:40 Influenza Types A,B Direct FA (KELSEY) - Final Mucosa - Nose Laboratory Tests Past 24 Hrs 03/11/18 03/11/18 03/11/18 12:30 12:50 12:50 WBC 13.5 H RBC 3.56 L Hgb 10.5 L Hct 33.4 L MCV 93.8 MCH 29.5 MCHC 31.4 L RDW 15.3 H RDW Differential 50.3 H Plt Count 328 MPV 9.9 Immature Gran % (Auto) 0.400 Neut % (Auto) 71.6 H Lymph % (Auto) 13.8 L [place] % (Auto) 12.1 H Eos % (Auto) 1.5 Baso % (Auto) 0.6 Absolute Neuts (auto) 9.7 H Absolute Lymphs (auto) 1.87 Total Counted Not Reportable Differential Comment SCANNED Sodium 142 Potassium 4.2 Chloride 107 Carbon Dioxide 26.0 Anion Gap 9 BUN 11 Creatinine 0.72 Estim Creat Clear Calc 130.00 Est GFR (MDRD) Af Amer 115 Est GFR (MDRD) Non-Af 95 BUN/Creatinine Ratio 15.4 Glucose 70 L Lactic Acid Calcium 8.4 L Troponin I 0.043 B-Natriuretic Peptide Urine Color Yellow Urine Clarity Sl. Cloudy Urine pH 6.0 Ur Specific [place] 1.020 Urine Protein 100 H Urine Glucose (UA) Normal Urine Ketones 150 H Urine Occult Blood 150 H Urine Nitrite Negative Urine Bilirubin Negative Urine Urobilinogen Normal Ur Leukocyte Esterase 100 H Urine RBC 0-5 SEEN Urine WBC 5-10 SEEN Ur Squamous Epith Cells 0-5 SEEN Urine Bacteria RARE Urine Mucus 0 SEEN 03/11/18 03/11/18 12:50 12:50 WBC RBC Hgb Hct MCV MCH MCHC RDW RDW Differential Plt Count MPV Immature Gran % (Auto) Neut % (Auto) Lymph % (Auto) [place] % (Auto) Eos % (Auto) Baso % (Auto) Absolute Neuts (auto) Absolute Lymphs (auto) Total Counted Differential Comment Sodium Potassium Chloride Carbon Dioxide Anion Gap BUN Creatinine Estim Creat Clear Calc Est GFR (MDRD) Af Amer Est GFR (MDRD) Non-Af BUN/Creatinine Ratio Glucose Lactic Acid 1.0 Calcium Troponin I B-Natriuretic Peptide 561.7 H Urine Color Urine Clarity Urine pH Ur Specific [place] Urine Protein Urine Glucose (UA) Urine Ketones Urine Occult Blood Urine Nitrite Urine Bilirubin Urine Urobilinogen Ur Leukocyte Esterase Urine RBC Urine WBC Ur Squamous Epith Cells Urine Bacteria Urine Mucus Clinical Impression(s) from Imaging Studies Chest X-Ray 03/11/18 12:[address] 03/11/18 15:48 IMPRESSION: There is no focal consolidation. There is no pleural effusion. The appearance on chest radiograph is due to decreased lung volume on the left side compared to the right secondary to small size of the left chest cavity. This is from severe dextroscoliosis of the thoracic spine and abnormal shape of the left ribs. Electronically Signed: Shell Ochoa MD at 20:01 EDT Tel Direct: [phone], Service support , KUB X-Ray 03/11/18 16:11 IMPRESSION: No acute abnormalities are seen in the abdomen or pelvis. Electronically Signed: Shell Ochoa MD at 20:07 EDT Tel Direct: [phone], Service support , Chest X-Ray 03/11/18 21:30 IMPRESSION: There are no acute abnormalities. There is no evidence of pneumothorax on the right side. Electronically Signed: Shell Ochoa MD at 22:12 EDT Tel Direct: [phone], Service support , Assessment/Plan Active and Suspected Problems (Last Updated 03/11/18 @ 14:54 by Cecil Butts DO) Acute respiratory failure with hypoxia (Acute) Sepsis (Acute) Gram-negative pneumonia (Acute) RECOMMENDATIONS: 1. Place PICC line and continue empiric antibiotics, pending infectious workup. 2. Wean supplemental oxygen to maintain saturations at or above 90%. 3. Continue nocturnal PAP therapy with sleeping. 4. Encourage incentive spirometer use. 5. Obtain respiratory viral panel. 6. Obtain repeat arterial blood gas if the patient's mentation changes. 7. Obtain echocardiogram IMPRESSIONS: 1. Acute hypoxemic respiratory failure The exact precipitating etiology is a bit unclear. The CT scan did not reveal a discernible infectious process. Alternative considerations include VQ mismatch from atelectasis versus tracheal bronchitis versus heart failure with fluid overload state. Regardless, the patient has responded to noninvasive positive pressure ventilation and is currently maintaining appropriate oxygen saturations on minimal O2. Recommend continuing to wean as tolerated. Given her history of obstructive sleep apnea, recommend continuing nocturnal PAP therapy on a nightly basis. Empiric antibiotics will be continued once PICC line has been established, pending infectious workup. Echocardiogram is currently pending. 2. Questionable CHF Echocardiogram is currently pending. Recommend transitioning from p.o. to IV Lasix today. 3. History of obstructive sleep apnea The patient does have a reported history of obstructive sleep apnea of unknown severity. She is reportedly compliant with the use of nocturnal CPAP therapy. She is currently scheduled to follow-up with Dr. Mack tomorrow. In the interim, recommend continuing nocturnal PAP therapy with sleeping. 4. Anxiety/depression/GERD/constipation/baseline spina bifida/scoliosis Complicates care, management, recovery and prognosis. Likely okay to continue home medications. TIME: 40 minutes of critical care time, independent of procedures, was spent addressing the patient's acute hypoxic respiratory failure, questionable CHF, history of obstructive sleep apnea, review of all data and collaboration with the care team. ([id number]) Code Visit 9xxxx: [id number] Critical care first hour
--- NOTE | 2018-03-12 07:39 | CON.PCM_ITS ---
Reason for Consult Date of Consultation: 03/12/18 Reason for Consultation: Acute respiratory failure History of Present Illness: The patient is a 42-year-old female, with a history as outlined below, who presented to the emergency department on March 11 with hypoxia and shortness of breath. The patient was recently admitted to [facility] reportedly treated for a urinary tract infection. Per the patient's family, the patient was experiencing shortness of breath even upon her discharge from the outside hospital. They were periodically checking her oxygen saturations in her home environment and in the day leading up to her hospital admission, she was noted to be hypoxic with oxygen saturations in the 70s and 80s. She denies the presence of a cough. However, she does have a history of obstructive sleep apnea, for which she utilizes nocturnal CPAP therapy. She gets around by wheelchair and per the patient's family has good quality of life. On presentation to the emergency department, the patient was initially noted to be afebrile, mildly tachycardic and hemodynamically stable. She was hypoxic requiring supplemental oxygen to maintain saturations. Laboratory evaluation revealed elevated white blood cell count to 13,000. Chemistry profile was largely unremarkable. Serum lactate was within normal limits. Troponin was negative. BNP was elevated to 561. Urinalysis revealed negative nitrates, positive leukocyte esterase and rare bacteria. A CT chest was obtained which revealed no acute cardiopulmonary process. The patient received supplemental IV fluid hydration and was started on antibiotics for suspected sepsis. She was initially admitted to the medical floor, where she later deteriorated with increasing oxygen requirement, requiring a transfer to the medical intensive care unit for ongoing management. Past Medical History Past Medical History (Chronic Problems): Chronic Problems (Last Updated 03/11/18 @ 14:54 by Cecil Butts DO) Edema of right lower extremity (Chronic) Spina bifida (Chronic) Medical History: Medical History (Last Updated 03/11/18 @ 14:54 by eCcil Butts DO) Acquired scoliosis M41.9 Spina bifida Q05.9 Allergies amoxicillin [From Augmentin] Allergy (Verified 03/11/18 12:10) Diarrhea azithromycin [From Zithromax Z-Turner] Allergy (Verified 03/11/18 12:10) Diarrhea ciprofloxacin [From Cipro] Allergy (Verified 03/11/18 12:10) Pain in joints clavulanic acid [From Augmentin] Allergy (Verified 03/11/18 12:10) Diarrhea Home Medications: Ambulatory Orders Medication Instructions Recorded Multivitamins,Therapeutic 1 tablet PO QHS 04/24/13 [Multivitamin] Oxybutynin Chloride [Ditropan Xl] 15 mg PO QHS 04/24/13 Paroxetine HCl [Paxil] 40 mg PO QHS 04/24/13 Calcium Carbonate/Vitamin D3 1 each PO QHS 04/14/16 [Calcium 500-Vit D3 200 Tablet] Cefuroxime Axetil [Ceftin] 250 mg PO BID 04/14/16 Ascorbic Acid [Vitamin C] 1,000 mg PO DAILY 03/11/18 Bacillus Coagulans [Probiotic] 1 each PO QHS 03/11/18 Docusate Sodium [Colace] 100 mg PO QHS 03/11/18 MedroxyPROGESTERone [Depo-Provera] 150 mg IM .[id number] 03/11/18 Omeprazole [Prilosec] 20 mg PO QHS 03/11/18 Polyethylene Glycol 3350 [Miralax] 17 gm PO DAILY PRN 03/11/18 Surgical History: Surgical History (Last Updated 03/11/18 @ 14:55 by Cecil Butts DO) Hx of cholecystectomy Z90.49 Surgical History: cholecystectomy, - - vertebral rods. 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 Lives: With Family Smoking Status: Never smoker Tobacco Use: Non-smoker Alcohol: None Drugs: None - *Family History Maternal History Items: - - hypothyroidism Review of Systems Constitutional: Denies: Chills, Fever Eyes: Denies: Blurred vision, Double vision HEENT: Denies: Head Aches, Sinus Congestion, Sinus Drainage Cardiovascular: Denies: Chest Pain, Palpitations Respiratory: Reports: Shortness of Breath Gastrointestinal: Denies: Abdominal Pain, Nausea, Vomiting Genitourinary: Denies: Dysuria Musculoskeletal: Denies: Joint Pain, Joint Tenderness Skin: Denies: Rash, Wounds Neurological: Denies: Numbness, Tingling, Focal weakness Psychiatric: Reports: Anxiety Hematologic/ Lymphatic: Denies: Easy Bruising, Easy Bleeding, Hx of blood clot Patient Problems: Active and Suspected Problems (Last Updated 03/11/18 @ 14:54 by Cecil Butts DO) Acute respiratory failure with hypoxia (Acute) Sepsis (Acute) Gram-negative pneumonia (Acute) Objective: The patient's most recent lab work, culture data and imaging studies have all been personally reviewed. Strep and urine Legionella antigens were both negative. Urine culture is pending. Rapid influenza screen was negative. Blood cultures are pending. - Physical Exam General: - - Currently on BiPAP. Somnolent but will arouse and answer simple questions. HEENT: Atraumatic, PERRLA, Normocephalic Oral: Dry Mucosa Neck: Supple, No Nodes, Trachea Midline Lungs: No rhonchi, No wheeze, No rales, Diminished Cardiovascular: Regular rate, Regular Rhythm, Normal S1, Normal S2, No murmurs Abdomen: Bowel Sounds Present, Soft, Non Tender Extremities: No clubbing, No edema Skin: No breakdown Musculoskeletal: - - Severe thoracic dextroscoliosis Neurological: Neuro grossly intact Psych/Mental Status: Normal Affect, Appropriate Vital Signs Temp Pulse Resp BP Pulse Ox 99.5 F H 95 15 136/74 H 100 03/12/18 02:00 03/12/18 06:00 03/12/18 06:00 03/12/18 06:00 03/12/18 06:00 Oxygen Flow Rate (L/min) 2 Oxygen Delivery Method Non-Rebreather Weight: 163 lb 5.8 oz Body Mass Index (BMI) 36.7 Intake and Output for Last 24 Hours 03/10/18 03/11/18 03/12/18 23:59 23:59 23:59 Intake Total 1135 / 1135 Output Total 650 / 650 575 / 575 Balance 485 / 485 -575 / -575 Microbiology Past 72 Hours 03/11/18 12:20 Legionella Antigen - Final Urine Catheter - Catheter 03/11/18 12:20 Streptococcus pneumoniae Antigen (M - Final Urine Catheter - Catheter 03/11/18 12:40 Influenza Types A,B Direct FA (KELSEY) - Final Mucosa - Nose Laboratory Tests Past 24 Hrs 03/11/18 03/11/18 03/11/18 12:30 12:50 12:50 WBC 13.5 H RBC 3.56 L Hgb 10.5 L Hct 33.4 L MCV 93.8 MCH 29.5 MCHC 31.4 L RDW 15.3 H RDW Differential 50.3 H Plt Count 328 MPV 9.9 Immature Gran % (Auto) 0.400 Neut % (Auto) 71.6 H Lymph % (Auto) 13.8 L [place] % (Auto) 12.1 H Eos % (Auto) 1.5 Baso % (Auto) 0.6 Absolute Neuts (auto) 9.7 H Absolute Lymphs (auto) 1.87 Total Counted Not Reportable Differential Comment SCANNED Sodium 142 Potassium 4.2 Chloride 107 Carbon Dioxide 26.0 Anion Gap 9 BUN 11 Creatinine 0.72 Estim Creat Clear Calc 130.00 Est GFR (MDRD) Af Amer 115 Est GFR (MDRD) Non-Af 95 BUN/Creatinine Ratio 15.4 Glucose 70 L Lactic Acid Calcium 8.4 L Troponin I 0.043 B-Natriuretic Peptide Urine Color Yellow Urine Clarity Sl. Cloudy Urine pH 6.0 Ur Specific [place] 1.020 Urine Protein 100 H Urine Glucose (UA) Normal Urine Ketones 150 H Urine Occult Blood 150 H Urine Nitrite Negative Urine Bilirubin Negative Urine Urobilinogen Normal Ur Leukocyte Esterase 100 H Urine RBC 0-5 SEEN Urine WBC 5-10 SEEN Ur Squamous Epith Cells 0-5 SEEN Urine Bacteria RARE Urine Mucus 0 SEEN 03/11/18 03/11/18 12:50 12:50 WBC RBC Hgb Hct MCV MCH MCHC RDW RDW Differential Plt Count MPV Immature Gran % (Auto) Neut % (Auto) Lymph % (Auto) [place] % (Auto) Eos % (Auto) Baso % (Auto) Absolute Neuts (auto) Absolute Lymphs (auto) Total Counted Differential Comment Sodium Potassium Chloride Carbon Dioxide Anion Gap BUN Creatinine Estim Creat Clear Calc Est GFR (MDRD) Af Amer Est GFR (MDRD) Non-Af BUN/Creatinine Ratio Glucose Lactic Acid 1.0 Calcium Troponin I B-Natriuretic Peptide 561.7 H Urine Color Urine Clarity Urine pH Ur Specific [place] Urine Protein Urine Glucose (UA) Urine Ketones Urine Occult Blood Urine Nitrite Urine Bilirubin Urine Urobilinogen Ur Leukocyte Esterase Urine RBC Urine WBC Ur Squamous Epith Cells Urine Bacteria Urine Mucus Clinical Impression(s) from Imaging Studies Chest X-Ray 03/11/18 12:[address] 03/11/18 15:48 IMPRESSION: There is no focal consolidation. There is no pleural effusion. The appearance on chest radiograph is due to decreased lung volume on the left side compared to the right secondary to small size of the left chest cavity. This is from severe dextroscoliosis of the thoracic spine and abnormal shape of the left ribs. Electronically Signed: Shell Ochoa MD at 20:01 EDT Tel Direct: [phone], Service support , KUB X-Ray 03/11/18 16:11 IMPRESSION: No acute abnormalities are seen in the abdomen or pelvis. Electronically Signed: Shell Ochoa MD at 20:07 EDT Tel Direct: [phone], Service support , Chest X-Ray 03/11/18 21:30 IMPRESSION: There are no acute abnormalities. There is no evidence of pneumothorax on the right side. Electronically Signed: Shell Ochoa MD at 22:12 EDT Tel Direct: [phone], Service support , Assessment/Plan Active and Suspected Problems (Last Updated 03/11/18 @ 14:54 by Cecil Butts DO) Acute respiratory failure with hypoxia (Acute) Sepsis (Acute) Gram-negative pneumonia (Acute) RECOMMENDATIONS: 1. Place PICC line and continue empiric antibiotics, pending infectious workup. 2. Wean supplemental oxygen to maintain saturations at or above 90%. 3. Continue nocturnal PAP therapy with sleeping. 4. Encourage incentive spirometer use. 5. Obtain respiratory viral panel. 6. Obtain repeat arterial blood gas if the patient's mentation changes. 7. Obtain echocardiogram IMPRESSIONS: 1. Acute hypoxemic respiratory failure The exact precipitating etiology is a bit unclear. The CT scan did not reveal a discernible infectious process. Alternative considerations include VQ mismatch from atelectasis versus tracheal bronchitis versus heart failure with fluid overload state. Regardless, the patient has responded to noninvasive positive pressure ventilation and is currently maintaining appropriate oxygen saturations on minimal O2. Recommend continuing to wean as tolerated. Given her history of obstructive sleep apnea, recommend continuing nocturnal PAP therapy on a nightly basis. Empiric antibiotics will be continued once PICC line has been established, pending infectious workup. Echocardiogram is currently pending. 2. Questionable CHF Echocardiogram is currently pending. Recommend transitioning from p.o. to IV Lasix today. 3. History of obstructive sleep apnea The patient does have a reported history of obstructive sleep apnea of unknown severity. She is reportedly compliant with the use of nocturnal CPAP therapy. She is currently scheduled to follow-up with Dr. Mack tomorrow. In the interim, recommend continuing nocturnal PAP therapy with sleeping. 4. Anxiety/depression/GERD/constipation/baseline spina bifida/scoliosis Complicates care, management, recovery and prognosis. Likely okay to continue home medications. TIME: 40 minutes of critical care time, independent of procedures, was spent addressing the patient's acute hypoxic respiratory failure, questionable CHF, history of obstructive sleep apnea, review of all data and collaboration with the care team. ([id number]) Code Visit 9xxxx: [id number] Critical care first hour
--- NOTE | 2018-03-12 07:41 | PCM.PN.HOSP ---
Patient Problems: Active and Suspected Problems (Last Updated 03/11/18 @ 14:54 by Cecil Butts DO) Acute respiratory failure with hypoxia (Acute) Sepsis (Acute) Gram-negative pneumonia (Acute) Subjective: Patient transitioned following admission to ICU on BiPAP with improvement overnight with ability to transition this morning to nasal cannula. Discussed with ICU staff and family and at this time not convinced of pneumonia; however, we will continue antibiotic therapy pending echocardiogram and further cardiology evaluation given concern for possible volume overload as etiology for current acute presentation. Patient notes feeling improved and less dyspneic. She remains mildly sluggish and falling asleep during examination. Patient denies fevers, chills, nausea, emesis, abdominal pain, chest pain. Objective: Physical Examination: General: awakens intermittently, falls back asleep easily, intermittently alert, orientation improving, answering some questions, cooperative, seated upright in bed in no apparent distress. Skin: normal color, turgor, no icterus, cyanosis. HEENT: AT/NC, EOMI, PERRLA, dry MM, thickened neck. Lungs: Diffusely diminished BS, > bases, poor effort, no rales, ronchi or wheezing. Heart: Regular rate and rhythm; no gallop, rub audible. Abdomen: soft, obese, NTTP, mildly to moderately distended, mildly decreased BS. Extremities: no cyanosis, clubbing, shortened stature, no pitting edema to extremities. Neurological: awakens intermittently, falls back asleep easily, intermittently alert, orientation improving, answering some questions, cooperative, seated upright in bed in no apparent distress; cognitive function improved, but not baseline intact; pupils equally reactive to light and accomodation; cranial nerves II-XII grossly normal, spina bifida, baseline wheelchair bound, moving upper extremities only, limited, strength severely globally decreased. Psychiatric: affect appears fatigued, no acute evidence of depressive or anxiety feelings. Vitals/I&O's: Vital Signs Temp Pulse Resp BP Pulse Ox 99.5 F H 95 15 136/74 H 100 03/12/18 02:00 03/12/18 06:00 03/12/18 06:00 03/12/18 06:00 03/12/18 06:00 Oxygen Flow Rate (L/min) 2 Oxygen Delivery Method Non-Rebreather Weight: 163 lb 5.8 oz Body Mass Index (BMI) 36.7 Intake and Output for Last 24 Hours 03/10/18 03/11/18 03/12/18 23:59 23:59 23:59 Intake Total 1135 / 1135 Output Total 650 / 650 575 / 575 Balance 485 / 485 -575 / -575 Microbiology Past 72 Hours 03/11/18 12:20 Urine Catheter - Catheter Legionella Antigen - Final 03/11/18 12:20 Urine Catheter - Catheter Streptococcus pneumoniae Antigen (M - Final 03/11/18 12:40 Mucosa - Nose Influenza Types A,B Direct FA ([facility]) - Final Laboratory Results 03/11/18 12:30: Urine Color Yellow, Urine Clarity Sl. Cloudy, Urine pH 6.0, Ur Specific [place] 1.020, Urine Protein 100 H, Urine Glucose (UA) Normal, Urine Ketones 150 H, Urine Occult Blood 150 H, Urine Nitrite Negative, Urine Bilirubin Negative, Urine Urobilinogen Normal, Ur Leukocyte Esterase 100 H, Urine RBC 0-5 SEEN, Urine WBC 5-10 SEEN, Ur Squamous Epith Cells 0-5 SEEN, Urine Bacteria RARE, Urine Mucus 0 SEEN 03/11/18 12:50: WBC 13.5 H, RBC 3.56 L, Hgb 10.5 L, Hct 33.4 L, MCV 93.8, MCH 29.5, MCHC 31.4 L, RDW 15.3 H, RDW Differential 50.3 H, Plt Count 328, MPV 9.9, Immature Gran % (Auto) 0.400, Neut % (Auto) 71.6 H, Lymph % (Auto) 13.8 L, [place] % (Auto) 12.1 H, Eos % (Auto) 1.5, Baso % (Auto) 0.6, Absolute Neuts (auto) 9.7 H, Absolute Lymphs (auto) 1.87, Total Counted Not Reportable, Differential Comment SCANNED 03/11/18 12:50: Sodium 142, Potassium 4.2, Chloride 107, Carbon Dioxide 26.0, Anion Gap 9, BUN 11, Creatinine 0.72, Estim Creat Clear Calc 130.00, Est GFR (MDRD) Af Amer 115, Est GFR (MDRD) Non-Af 95, BUN/Creatinine Ratio 15.4, Glucose 70 L, Calcium 8.4 L, Troponin I 0.043 03/11/18 12:50: Lactic Acid 1.0 03/11/18 12:50: B-Natriuretic Peptide 561.7 H Current Medications Acetaminophen (Tylenol) 650 mg PO Q4H PRN PRN PRN Reason: FEVER Albuterol Sulfate (Ventolin Aerosols) 2.5 mg INHALATION Q2H PRN PRN PRN Reason: SHORTNESS OF BREATH Albuterol/Ipratropium (Duoneb) 3 ml INHALATION Q4H.RT [facility] Last Admin: 03/12/18 06:34 Dose: 3 ml Ascorbic Acid (Vitamin C) 1,000 mg PO DAILY [facility] Azithromycin (Zithromax) 500 mg PO 2200 [facility] Calcium/Vitamin D (Os-Yrn 500mg + D) 1 tablet PO DAILYCM [facility] Ceftriaxone Sodium (Rocephin) 1 gm IM Q24 [facility] Docusate Sodium (Colace) 100 mg PO QHS [facility] Last Admin: 03/11/18 22:54 Dose: 100 mg Enoxaparin Sodium (Lovenox) 40 mg SC DAILY@1000 [facility] Furosemide (Lasix) 40 mg PO BID@1000,1800 [facility] Guaifenesin (Mucinex) 1,200 mg PO BID [facility] Last Admin: 03/11/18 22:54 Dose: 1,200 mg Influenza Virus Vaccine Quadrival (Fluarix/Fluzone) 0.5 ml IM .ONCE ONE Stop: 03/12/18 10:01 Lactobacillus Acidophilus (Acidophilus) 1 tablet PO DAILY [facility] Magnesium Hydroxide (Milk Of Magnesia) 30 ml PO DAILY PRN PRN PRN Reason: Constipation Multivitamins ([facility]amin) [facility] Ondansetron HCl (Zofran) 4 mg IV Q8H PRN PRN PRN Reason: NAUSEA Pantoprazole Sodium (Protonix) 20 mg PO QHS [facility] Last Admin: 03/11/18 22:54 Dose: 20 mg Paroxetine HCl (Paxil) 40 mg PO DAILY [facility] Polyethylene Glycol (Miralax) 17 gm PO DAILY PRN PRN Reason: Constipation Sodium Chloride () 5 - 30 ml IV UD PRN PRN Reason: SALINE FLUSH Tolterodine Tartrate (Detrol La) 4 mg PO DAILY [facility] Medical Necessity - Tobacco Use Smoking Status: Never smoker Tobacco Use: Non-smoker Assessment/Plan All Active Problems (Last Updated 03/11/18 @ 14:54 by Cecil Butts DO) Wound, open, foot (Resolved) Acute respiratory failure with hypoxia (Acute) Sepsis (Acute) Gram-negative pneumonia (Acute) The patient is a 42 y/o F w/ PMHx: Spina Bifida w/ severe scoliosis, GERD, Anxiety and Depression, Obesity, [facility] w/ sepsis and noted tachypnea and hypoxia at that time discharged on 03/10/18 with presentation to the [facility] ED on 03/11/18 with ongoing dyspnea, progressively worsening and home oxygenation 70%. (1) Acute Hypoxic Respiratory Failure secondary to ? Possible Pneumonia (CAP) and #2 Possible Volume Overload/CHF Unclear Type: Unclear specific etiology for respiratory failureCXR in the ED w/ small left-sided pleural effusion versus pleural thickening, bilateral increased reticular markings possibly consistent with mild pulmonary vascular congestion versus interstitial pneumonitis, CT chest with no focal consolidation, no pleural effusion, decreased lung volume left side compared to right secondary to small size of the left chest, severe dextroscoliosis of the thoracic spine and abnormal shape of the left ribs, KUB unremarkable. Admission CBC w/ WBC 13.5 with L shift, LA normal, worsened status with increased RR, accessory muscle usage w/ transition to BIPAP. Transferred to the ICU, maintained on BIPAP, transition to supplementation as able, ICU consulted, difficulties w/ central line placement secondary to anatomy with pending ICU physician evaluation, maintain on oxygen with wean as tolerated to room air/home oxygen supplementation, continue ATC duonebs, PRN albuterol, maintained on IV Rocephin and Azithromycin initially-->transitioned to oral azithromycin and IM rocephin secondary to access, pending PICC Placement w/ return to Rocephin/Azithromycin IV, given Vanc IV x 1 upon presentation, defer additional given lower suspicion for PNA. Maintain HOB, IS parameters w/ requested sputum cultures, pending respiratory viral panel, negative urine antigens. Given IV lasix secondary to notable weight increase through admission and CXR w/ congestion, will continue IV BID lasix pending PICC line placement. Bld cx x 2 obtained in the ED. (2) ? Possible Volume Overload, Acute Decompensated CHF, Unclear type: CXR obtained in the ED w/ congestion, recent 20 lb weight gain following [facility] admissions and current. Patient administered IV lasix initially, transitioned to oral, maintain on cardiac telemetry obtain cardiac enzyme series, obtain serial EKGs, continue IV lasix diuresis 40 mg BID, monitor I/Os, obtain FLP, continue medical therapy w/ asa, pending FLP. Hold on further agent administration pending ICU evaluation also given atypical presentation. Will obtain TSH and magnesium level. ECHO ordered. (3) Recent UTI: Unclear organism, UA not marked appearing on current presentation, UCx pending, treatment for #1 and #2 as noted. (4) Spina Bifida w/ Severe Scoliosis: Fall precautions, position changes, barrier regimen, PT, OT, CM consultation. (5) Chronic Constipation: KUB not marked appearing, maintain on bowel regimen, monitor I&O. (6) Anxiety and Depression: Maintain on home paxil regimen. (7) GERD: PPI. (8) DARIO: History of DARIO, continue q HS CPAP. (9) DVT prophylaxis: SCDs, lovenox. Code Visit Inpatient E&M: 63134 Subs Hosp L3
--- NOTE | 2018-03-12 07:58 | PN_ITS ---
Patient Problems: Active and Suspected Problems (Last Updated 03/11/18 @ 14:54 by Cecil Butts DO) Acute respiratory failure with hypoxia (Acute) Sepsis (Acute) Gram-negative pneumonia (Acute) Subjective: Patient transitioned following admission to ICU on BiPAP with improvement overnight with ability to transition this morning to nasal cannula. Discussed with ICU staff and family and at this time not convinced of pneumonia; however, we will continue antibiotic therapy pending echocardiogram and further cardiology evaluation given concern for possible volume overload as etiology for current acute presentation. Patient notes feeling improved and less dyspneic. She remains mildly sluggish and falling asleep during examination. Patient denies fevers, chills, nausea, emesis, abdominal pain, chest pain. Objective: Physical Examination: General: awakens intermittently, falls back asleep easily, intermittently alert, orientation improving, answering some questions, cooperative, seated upright in bed in no apparent distress. Skin: normal color, turgor, no icterus, cyanosis. HEENT: AT/NC, EOMI, PERRLA, dry MM, thickened neck. Lungs: Diffusely diminished BS, > bases, poor effort, no rales, ronchi or wheezing. Heart: Regular rate and rhythm; no gallop, rub audible. Abdomen: soft, obese, NTTP, mildly to moderately distended, mildly decreased BS. Extremities: no cyanosis, clubbing, shortened stature, no pitting edema to extremities. Neurological: awakens intermittently, falls back asleep easily, intermittently alert, orientation improving, answering some questions, cooperative, seated upright in bed in no apparent distress; cognitive function improved, but not baseline intact; pupils equally reactive to light and accomodation; cranial nerves II-XII grossly normal, spina bifida, baseline wheelchair bound, moving upper extremities only, limited, strength severely globally decreased. Psychiatric: affect appears fatigued, no acute evidence of depressive or anxiety feelings. Vitals/I&O's: Vital Signs Temp Pulse Resp BP Pulse Ox 99.5 F H 95 15 136/74 H 100 03/12/18 02:00 03/12/18 06:00 03/12/18 06:00 03/12/18 06:00 03/12/18 06:00 Oxygen Flow Rate (L/min) 2 Oxygen Delivery Method Non-Rebreather Weight: 163 lb 5.8 oz Body Mass Index (BMI) 36.7 Intake and Output for Last 24 Hours 03/10/18 03/11/18 03/12/18 23:59 23:59 23:59 Intake Total 1135 / 1135 Output Total 650 / 650 575 / 575 Balance 485 / 485 -575 / -575 Microbiology Past 72 Hours 03/11/18 12:20 Urine Catheter - Catheter Legionella Antigen - Final 03/11/18 12:20 Urine Catheter - Catheter Streptococcus pneumoniae Antigen (M - Final 03/11/18 12:40 Mucosa - Nose Influenza Types A,B Direct FA ([facility]) - Final Laboratory Results 03/11/18 12:30: Urine Color Yellow, Urine Clarity Sl. Cloudy, Urine pH 6.0, Ur Specific [place] 1.020, Urine Protein 100 H, Urine Glucose (UA) Normal, Urine Ketones 150 H, Urine Occult Blood 150 H, Urine Nitrite Negative, Urine Bilirubin Negative, Urine Urobilinogen Normal, Ur Leukocyte Esterase 100 H, Urine RBC 0-5 SEEN, Urine WBC 5-10 SEEN, Ur Squamous Epith Cells 0-5 SEEN, Urine Bacteria RARE, Urine Mucus 0 SEEN 03/11/18 12:50: WBC 13.5 H, RBC 3.56 L, Hgb 10.5 L, Hct 33.4 L, MCV 93.8, MCH 29.5, MCHC 31.4 L, RDW 15.3 H, RDW Differential 50.3 H, Plt Count 328, MPV 9.9, Immature Gran % (Auto) 0.400, Neut % (Auto) 71.6 H, Lymph % (Auto) 13.8 L, [place] % (Auto) 12.1 H, Eos % (Auto) 1.5, Baso % (Auto) 0.6, Absolute Neuts (auto) 9.7 H, Absolute Lymphs (auto) 1.87, Total Counted Not Reportable, Differential Comment SCANNED 03/11/18 12:50: Sodium 142, Potassium 4.2, Chloride 107, Carbon Dioxide 26.0, Anion Gap 9, BUN 11, Creatinine 0.72, Estim Creat Clear Calc 130.00, Est GFR (MDRD) Af Amer 115, Est GFR (MDRD) Non-Af 95, BUN/Creatinine Ratio 15.4, Glucose 70 L, Calcium 8.4 L, Troponin I 0.043 03/11/18 12:50: Lactic Acid 1.0 03/11/18 12:50: B-Natriuretic Peptide 561.7 H Current Medications Acetaminophen (Tylenol) 650 mg PO Q4H PRN PRN PRN Reason: FEVER Albuterol Sulfate (Ventolin Aerosols) 2.5 mg INHALATION Q2H PRN PRN PRN Reason: SHORTNESS OF BREATH Albuterol/Ipratropium (Duoneb) 3 ml INHALATION Q4H.RT [facility] Last Admin: 03/12/18 06:34 Dose: 3 ml Ascorbic Acid (Vitamin C) 1,000 mg PO DAILY [facility] Azithromycin (Zithromax) 500 mg PO 2200 [facility] Calcium/Vitamin D (Os-Yrn 500mg + D) 1 tablet PO DAILYCM [facility] Ceftriaxone Sodium (Rocephin) 1 gm IM Q24 [facility] Docusate Sodium (Colace) 100 mg PO QHS [facility] Last Admin: 03/11/18 22:54 Dose: 100 mg Enoxaparin Sodium (Lovenox) 40 mg SC DAILY@1000 [facility] Furosemide (Lasix) 40 mg PO BID@1000,1800 [facility] Guaifenesin (Mucinex) 1,200 mg PO BID [facility] Last Admin: 03/11/18 22:54 Dose: 1,200 mg Influenza Virus Vaccine Quadrival (Fluarix/Fluzone) 0.5 ml IM .ONCE ONE Stop: 03/12/18 10:01 Lactobacillus Acidophilus (Acidophilus) 1 tablet PO DAILY [facility] Magnesium Hydroxide (Milk Of Magnesia) 30 ml PO DAILY PRN PRN PRN Reason: Constipation Multivitamins (Multivitamin) [facility] Ondansetron HCl (Zofran) 4 mg IV Q8H PRN PRN PRN Reason: NAUSEA Pantoprazole Sodium (Protonix) 20 mg PO QHS [facility] Last Admin: 03/11/18 22:54 Dose: 20 mg Paroxetine HCl (Paxil) 40 mg PO DAILY [facility] Polyethylene Glycol (Miralax) 17 gm PO DAILY PRN PRN Reason: Constipation Sodium Chloride () 5 - 30 ml IV UD PRN PRN Reason: SALINE FLUSH Tolterodine Tartrate (Detrol La) 4 mg PO DAILY [facility] Medical Necessity - Tobacco Use Smoking Status: Never smoker Tobacco Use: Non-smoker Assessment/Plan All Active Problems (Last Updated 03/11/18 @ 14:54 by Cecil Butts DO) Wound, open, foot (Resolved) Acute respiratory failure with hypoxia (Acute) Sepsis (Acute) Gram-negative pneumonia (Acute) The patient is a 42 y/o F w/ PMHx: Spina Bifida w/ severe scoliosis, GERD, Anxiety and Depression, Obesity, [facility] w/ sepsis and noted tachypnea and hypoxia at that time discharged on 03/10/18 with presentation to the [facility] ED on 03/11/18 with ongoing dyspnea, progressively worsening and home oxygenation 70%. (1) Acute Hypoxic Respiratory Failure secondary to ? Possible Pneumonia (CAP) and #2 Possible Volume Overload/CHF Unclear Type: Unclear specific etiology for respiratory failureCXR in the ED w/ small left-sided pleural effusion versus pleural thickening, bilateral increased reticular markings possibly consistent with mild pulmonary vascular congestion versus interstitial pneumonitis, CT chest with no focal consolidation, no pleural effusion, decreased lung volume left side compared to right secondary to small size of the left chest, severe dextroscoliosis of the thoracic spine and abnormal shape of the left ribs, KUB unremarkable. Admission CBC w/ WBC 13.5 with L shift, LA normal, worsened status with increased RR, accessory muscle usage w/ transition to BIPAP. Transferred to the ICU, maintained on BIPAP, transition to supplementation as able, ICU consulted, difficulties w/ central line placement secondary to anatomy with pending ICU physician evaluation, maintain on oxygen with wean as tolerated to room air/home oxygen supplementation, continue ATC duonebs, PRN albuterol, maintained on IV Rocephin and Azithromycin initially-->transitioned to oral azithromycin and IM rocephin secondary to access, pending PICC Placement w/ return to Rocephin/Azithromycin IV, given Vanc IV x 1 upon presentation, defer additional given lower suspicion for PNA. Maintain HOB, IS parameters w/ requested sputum cultures, pending respiratory viral panel, negative urine antigens. Given IV lasix secondary to notable weight increase through admission and CXR w/ congestion, will continue IV BID lasix pending PICC line placement. Bld cx x 2 obtained in the ED. (2) ? Possible Volume Overload, Acute Decompensated CHF, Unclear type: CXR obtained in the ED w/ congestion, recent 20 lb weight gain following [facility] admissions and current. Patient administered IV lasix initially, transitioned to oral, maintain on cardiac telemetry obtain cardiac enzyme series, obtain serial EKGs, continue IV lasix diuresis 40 mg BID, monitor I/Os, obtain FLP, continue medical therapy w/ asa, pending FLP. Hold on further agent administration pending ICU evaluation also given atypical presentation. Will obtain TSH and magnesium level. ECHO ordered. (3) Recent UTI: Unclear organism, UA not marked appearing on current presentation, UCx pending, treatment for #1 and #2 as noted. (4) Spina Bifida w/ Severe Scoliosis: Fall precautions, position changes, barrier regimen, PT, OT, CM consultation. (5) Chronic Constipation: KUB not marked appearing, maintain on bowel regimen, monitor I&O. (6) Anxiety and Depression: Maintain on home paxil regimen. (7) GERD: PPI. (8) DARIO: History of DARIO, continue q HS CPAP. (9) DVT prophylaxis: SCDs, lovenox. Code Visit Inpatient E&M: 72537 Subs Hosp L3
[2018-03-12 08:41] LABS: Allen Test POS; Base Excess 10 mmol/L (-2 to +2); Bicarbonate 34.9 mmol/L (22-26); Blood Gas Specimen Type ART; EPAP 10; FI02 35; IPAP 16; PO2 132 mmHG (75-100); RR 12; SITE R Radial; SO2 99 % (95-99); Time Given 828; Total Carbon Dioxide 37 mmol/L; pCO2 57.4 mmHg (35-45); pH 7.39 (7.35-7.45)
[2018-03-12] MEDS: Ascorbic Acid 500 MG Tablet 1000 MG PO (09:28)
[2018-03-12] MEDS: Multivitamins,Therapeutic Tablet 1 TABLET PO (09:28)
[2018-03-12] MEDS: Calcium Carb/Vitamin D 1 TABLET Tablet PO (09:28)
[2018-03-12] MEDS: guaiFENesin 1,200 MG Tablet 1200 MG PO ×2 (09:29→20:36)
[2018-03-12] MEDS: Aspirin 81 MG TAB.CHEW PO (09:33)
[2018-03-12] MEDS: Tolterodine Tartrate 4 MG CAP.SA PO (09:35)
[2018-03-12] MEDS: Enoxaparin 40 MG/0.4 ML Syringe SC (09:35)
--- NOTE | 2018-03-12 09:36 | NURSING ---
Per family, patient has already had her flu shot this season. MD present at conversation with family and order discontinued.
[2018-03-12] MEDS: Furosemide 40 MG/4 ML Vial IV (11:23)
[2018-03-12] MEDS: Ceftriaxone 1 GM/50 mL Premix Q24 IV (11:51)
[2018-03-12 11:54] LABS: Anion Gap 6 (5-15); BUN 7 mg/dL (7-18); BUN/Creat Ratio 10.9 RATIO (10-20); Calcium,Total 8.1 mg/dL (8.5-10.1); Chloride 101 mmol/L (98-107); Creatinine, Serum 0.64 mg/dL (0.55-1.02); EST Glomerular Filtration Rate 107 mL/min (>60); Est Glom Filt Rate - Afr Amer 130 mL/min (>60); Estimated Creatinine Clearance 133.95 ml/min; Glucose 92 mg/dL (74-106); Potassium 3.1 mmol/L (3.5-5.1); Sodium Level 142 mmol/L (136-145)
[2018-03-12 11:57] LABS: Cholesterol 129 mg/dL (200); High Density Lipoprotein 9 mg/dL; T4 Free Direct 1.14 ng/dL (0.76-1.46); Triglycerides 161 mg/dL; Very Low Density Lipoprotein 32 mg/dL (5-40)
[2018-03-12 15:28] LABS: Absolute Lymphocyte Count 2.14 X10^3/ul (0.83-4.51); Absolute Neutrophil Count 9.7 X10^3/uL (2.0-7.7); Basophil# 0.04 X10^3/uL; Basophil% 0.3 % (0-1); Differential Indicated SCAN CRITERIA MET; Eosinophil# 0.16 X10^3/uL; Eosinophils% 1.2 % (0-5); Hematocrit 32.7 % (37-47); Hemoglobin 10.2 g/dl (12.0-15.0); Lymphocyte # 2.14 X10^3/ul (4.0); Lymphocyte % 16.2 % (19-41); Mean Corp Hgb Conc 31.2 g/gl (32-36); Mean Corpuscular Hgb 28.8 pg (27.0-32.0); Mean Corpuscular Volume 92.4 fL (81-99); Mean Platelet Vol. 9.2 fl (6.2-12.0); Monocyte# 1.19 X10^3/uL; Neutrophil # 9.65 X10^3/uL (2.7-7.7); POSITIVE COUNT NO; POSITIVE DIFFERENTIAL NO; POSITIVE MORPHOLOGY YES; Platelet Count 309 K/mm3 (150-450); RBC Distribution Width SD 51.2 fl (35.1-43.9); Red Blood Count 3.54 M/mm3 (4.2-5.4); White Blood Count 13.2 K/mm3 (4.4-11.0)
[2018-03-12 18:06] LABS: Anion Gap 6 (5-15); BUN 7 mg/dL (7-18); BUN/Creat Ratio 10.9 RATIO (10-20); Calcium,Total 8.3 mg/dL (8.5-10.1); Chloride 92 mmol/L (98-107); Creatinine, Serum 0.64 mg/dL (0.55-1.02); EST Glomerular Filtration Rate 108 mL/min (>60); Est Glom Filt Rate - Afr Amer 130 mL/min (>60); Estimated Creatinine Clearance 133.95 ml/min; Glucose 86 mg/dL (74-106); Potassium 3.4 mmol/L (3.5-5.1); Sodium Level 138 mmol/L (136-145)
[2018-03-12] MEDS: Furosemide 20 MG/2 ML VIAL IV (18:43)
[2018-03-12] MEDS: Pantoprazole Sodium 20 MG Tablet PO (20:36)
[2018-03-12] MEDS: Docusate Sodium 100 MG Capsule PO (20:36)
[2018-03-13] VITALS (27 sets, daily range): BP systolic 115–140; BP diastolic 75–99; PULSE 110–135; RESP 12–38; TEMP 36.6–37.3; O2SAT 92–100
[2018-03-13 01:03] LABS: Potassium 3.4 mmol/L (3.5-5.1)
[2018-03-13] MEDS: 0.9% NaCl Peripheral Flush Adult/Peds IV ×4 (02:02→21:44)
[2018-03-13] MEDS: Ipratropium/Albuterol Sulfate 3 ML AMPUL.NEB INHALATION ×6 (02:09→23:10)
[2018-03-13 05:55] LABS: Anion Gap 6 (5-15); BUN 10 mg/dL (7-18); BUN/Creat Ratio 15.1 RATIO (10-20); Calcium,Total 8.6 mg/dL (8.5-10.1); Chloride 91 mmol/L (98-107); Creatinine, Serum 0.66 mg/dL (0.55-1.02); EST Glomerular Filtration Rate 103 mL/min (>60); Est Glom Filt Rate - Afr Amer 125 mL/min (>60); Estimated Creatinine Clearance 122.71 ml/min; Glucose 85 mg/dL (74-106); Potassium 4.2 mmol/L (3.5-5.1); Sodium Level 138 mmol/L (136-145)
--- NOTE | 2018-03-13 05:55 | EKG12_ITS ---
Test Reason : AM EKG Blood Pressure : / mmHG Vent. Rate : 122 BPM Atrial Rate : 122 BPM P-R Int : 124 ms QRS Dur : 064 ms QT Int : 316 ms P-R-T Axes : 018 082 041 degrees QTc Int : 450 ms Sinus tachycardia Otherwise normal ECG When compared with ECG of 11-MAR-2018 12:16, MANUAL COMPARISON REQUIRED, DATA IS UNCONFIRMED Confirmed by CARL SAMANO, JAY ([id number]), design editor JOSE MOLINA ([id number] on 03/15/2018 3:45:46 PM Referred By: STEVIE Confirmed By:JAY HENRY MD
--- NOTE | 2018-03-13 06:39 | PCM.PN.INT ---
Subjective: The patient was seen and examined at the bedside this morning. Events from the last 24 hours have been reviewed. The patient is currently afebrile, hemodynamically stable and maintaining appropriate oxygen saturations on minimal supplemental oxygen. The patient was tolerant of scheduled BiPAP therapy overnight. Prior to this, she was able to be weaned down to 1 L/min of supplemental oxygen via nasal cannula. The patient was diuresed yesterday and was overall net -3 L. She appears to have developed a contraction alkalosis with a rising serum bicarbonate level. She is also now tachycardic. Objective: The patient's most recent lab work, culture data and imaging studies have all been personally reviewed. Infectious workup has been negative to date. Echocardiogram is pending. General: Alert, Cooperative, No apparent distress HEENT: Atraumatic, PERRLA, Normocephalic Oral: Moist Mucosa Neck: Supple, No Nodes, Trachea Midline Lungs: No rhonchi, No wheeze, No rales, Diminished Cardiovascular: Normal S1, Normal S2, No murmurs, Tachycardic Abdomen: Bowel Sounds Present, Soft, Non Tender Extremities: No clubbing, No cyanosis, No edema Skin: No breakdown Musculoskeletal: No Tenderness to Palpation of Joints or Extremities, - - Severe thoracic dextroscoliosis Lymphatic: No Cervical, Supraclavicular, or Inguinal Adenopathy Neurological: Neuro grossly intact Psych/Mental Status: Normal Affect, Appropriate Vital Signs Temp Pulse Resp BP Pulse Ox 97.9 F 120 H 22 H 137/95 H 100 03/13/18 04:00 03/13/18 06:00 03/13/18 06:00 03/13/18 06:00 03/13/18 06:00 Oxygen Flow Rate (L/min) 1 Oxygen Delivery Method Bi-pap Weight: 154 lb 5.177 oz Body Mass Index (BMI) 36.7 Intake and Output for Last 24 Hours 03/11/18 03/12/18 03/13/18 23:59 23:59 23:59 Intake Total 1135 / 1135 597 / 597 982 / 982 Output Total 650 / 650 3725 / 3725 800 / 800 Balance 485 / 485 -3128 / -3128 182 / 182 Labs (Last 48 Hours) 03/11/18 03/11/18 03/11/18 12:30 12:50 12:50 WBC 13.5 H RBC 3.56 L Hgb 10.5 L Hct 33.4 L MCV 93.8 MCH 29.5 MCHC 31.4 L RDW 15.3 H RDW Differential 50.3 H Plt Count 328 MPV 9.9 Immature Gran % (Auto) 0.400 Neut % (Auto) 71.6 H Lymph % (Auto) 13.8 L [place] % (Auto) 12.1 H Eos % (Auto) 1.5 Baso % (Auto) 0.6 Absolute Neuts (auto) 9.7 H Absolute Lymphs (auto) 1.87 Total Counted Not Reportable Differential Comment SCANNED Specimen Type Sample Site pH Bicarbonate Actual POC Total CO2 Base Excess O2 Saturation O2 % ABG pCO2 ABG pO2 Salo Test Respiration Rate O2 Delivery Device EPAP IPAP Blood Gas Notified Whom Blood Gas Notified Time Sodium 142 Potassium 4.2 Chloride 107 Carbon Dioxide 26.0 Anion Gap 9 BUN 11 Creatinine 0.72 Estim Creat Clear Calc 130.00 Est GFR (MDRD) Af Amer 115 Est GFR (MDRD) Non-Af 95 BUN/Creatinine Ratio 15.4 Glucose 70 L Lactic Acid Calcium 8.4 L Magnesium Troponin I 0.043 B-Natriuretic Peptide Triglycerides Cholesterol LDL Cholesterol VLDL Cholesterol HDL Cholesterol TSH Free T4 Urine Color Yellow Urine Clarity Sl. Cloudy Urine pH 6.0 Ur Specific [place] 1.020 Urine Protein 100 H Urine Glucose (UA) Normal Urine Ketones 150 H Urine Occult Blood 150 H Urine Nitrite Negative Urine Bilirubin Negative Urine Urobilinogen Normal Ur Leukocyte Esterase 100 H Urine RBC 0-5 SEEN Urine WBC 5-10 SEEN Ur Squamous Epith Cells 0-5 SEEN Urine Bacteria RARE Urine Mucus 0 SEEN 03/11/18 03/11/18 03/12/18 12:50 12:50 08:34 WBC RBC Hgb Hct MCV MCH MCHC RDW RDW Differential Plt Count MPV Immature Gran % (Auto) Neut % (Auto) Lymph % (Auto) [place] % (Auto) Eos % (Auto) Baso % (Auto) Absolute Neuts (auto) Absolute Lymphs (auto) Total Counted Differential Comment Specimen Type ART Sample Site R Radial pH 7.39 Bicarbonate Actual 34.9 H POC Total CO2 37 Base Excess 10 H O2 Saturation 99 O2 % 35 ABG pCO2 57.4 H ABG pO2 132 H Salo Test POS Respiration Rate 12 O2 Delivery Device Bi / C PAP EPAP 10 IPAP 16 Blood Gas Notified Whom ICU MD Blood Gas Notified Time 828 Sodium Potassium Chloride Carbon Dioxide Anion Gap BUN Creatinine Estim Creat Clear Calc Est GFR (MDRD) Af Amer Est GFR (MDRD) Non-Af BUN/Creatinine Ratio Glucose Lactic Acid 1.0 Calcium Magnesium Troponin I B-Natriuretic Peptide 561.7 H Triglycerides Cholesterol LDL Cholesterol VLDL Cholesterol HDL Cholesterol TSH Free T4 Urine Color Urine Clarity Urine pH Ur Specific [place] Urine Protein Urine Glucose (UA) Urine Ketones Urine Occult Blood Urine Nitrite Urine Bilirubin Urine Urobilinogen Ur Leukocyte Esterase Urine RBC Urine WBC Ur Squamous Epith Cells Urine Bacteria Urine Mucus 03/12/18 03/12/18 03/12/18 11:30 11:30 11:30 WBC RBC Hgb Hct MCV MCH MCHC RDW RDW Differential Plt Count MPV Immature Gran % (Auto) Neut % (Auto) Lymph % (Auto) [place] % (Auto) Eos % (Auto) Baso % (Auto) Absolute Neuts (auto) Absolute Lymphs (auto) Total Counted Differential Comment Specimen Type Sample Site pH Bicarbonate Actual POC Total CO2 Base Excess O2 Saturation O2 % ABG pCO2 ABG pO2 Salo Test Respiration Rate O2 Delivery Device EPAP IPAP Blood Gas Notified Whom Blood Gas Notified Time Sodium 142 Potassium 3.1 L Chloride 101 Carbon Dioxide 35.0 H Anion Gap 6 BUN 7 Creatinine 0.64 Estim Creat Clear Calc 133.95 Est GFR (MDRD) Af Amer 130 Est GFR (MDRD) Non-Af 107 BUN/Creatinine Ratio 10.9 Glucose 92 Lactic Acid Calcium 8.1 L Magnesium 2.0 Troponin I 0.021 B-Natriuretic Peptide Triglycerides 161 Cholesterol 129 LDL Cholesterol 88 VLDL Cholesterol 32 HDL Cholesterol 9 L TSH 2.40 Free T4 1.14 Urine Color Urine Clarity Urine pH Ur Specific [place] Urine Protein Urine Glucose (UA) Urine Ketones Urine Occult Blood Urine Nitrite Urine Bilirubin Urine Urobilinogen Ur Leukocyte Esterase Urine RBC Urine WBC Ur Squamous Epith Cells Urine Bacteria Urine Mucus 03/12/18 03/12/18 03/12/18 14:30 14:30 14:30 WBC 13.2 H RBC 3.54 L Hgb 10.2 L Hct 32.7 L MCV 92.4 MCH 28.8 MCHC 31.2 L RDW 15.0 H RDW Differential 51.2 H Plt Count 309 MPV 9.2 Immature Gran % (Auto) 0.300 Neut % (Auto) 73.0 H Lymph % (Auto) 16.2 L [place] % (Auto) 9.0 Eos % (Auto) 1.2 Baso % (Auto) 0.3 Absolute Neuts (auto) 9.7 H Absolute Lymphs (auto) 2.14 Total Counted Not Reportable Differential Comment Specimen Type Sample Site pH Bicarbonate Actual POC Total CO2 Base Excess O2 Saturation O2 % ABG pCO2 ABG pO2 Salo Test Respiration Rate O2 Delivery Device EPAP IPAP Blood Gas Notified Whom Blood Gas Notified Time Sodium Cancelled Potassium Cancelled Chloride Cancelled Carbon Dioxide Cancelled Anion Gap Cancelled BUN Cancelled Creatinine Cancelled Estim Creat Clear Calc Cancelled Est GFR (MDRD) Af Amer Cancelled Est GFR (MDRD) Non-Af Cancelled BUN/Creatinine Ratio Cancelled Glucose Cancelled Lactic Acid Calcium Cancelled Magnesium Troponin I 0.018 B-Natriuretic Peptide Triglycerides Cholesterol LDL Cholesterol VLDL Cholesterol HDL Cholesterol TSH Free T4 Urine Color Urine Clarity Urine pH Ur Specific [place] Urine Protein Urine Glucose (UA) Urine Ketones Urine Occult Blood Urine Nitrite Urine Bilirubin Urine Urobilinogen Ur Leukocyte Esterase Urine RBC Urine WBC Ur Squamous Epith Cells Urine Bacteria Urine Mucus 03/12/18 03/12/18 03/13/18 17:20 17:20 00:45 WBC RBC Hgb Hct MCV MCH MCHC RDW RDW Differential Plt Count MPV Immature Gran % (Auto) Neut % (Auto) Lymph % (Auto) [place] % (Auto) Eos % (Auto) Baso % (Auto) Absolute Neuts (auto) Absolute Lymphs (auto) Total Counted Differential Comment Specimen Type Sample Site pH Bicarbonate Actual POC Total CO2 Base Excess O2 Saturation O2 % ABG pCO2 ABG pO2 Salo Test Respiration Rate O2 Delivery Device EPA IPAP Blood Gas Notified Whom Blood Gas Notified Time Sodium 138 Potassium 3.4 L 3.4 L Chloride 92 L Carbon Dioxide 40.0 H Anion Gap 6 BUN 7 Creatinine 0.64 Estim Creat Clear Calc 133.95 Est GFR (MDRD) Af Amer 130 Est GFR (MDRD) Non-Af 108 BUN/Creatinine Ratio 10.9 Glucose 86 Lactic Acid Calcium 8.3 L Magnesium Troponin I < 0.015 B-Natriuretic Peptide Triglycerides Cholesterol LDL Cholesterol VLDL Cholesterol HDL Cholesterol TSH Free T4 Urine Color Urine Clarity Urine pH Ur Specific [place] Urine Protein Urine Glucose (UA) Urine Ketones Urine Occult Blood Urine Nitrite Urine Bilirubin Urine Urobilinogen Ur Leukocyte Esterase Urine RBC Urine WBC Ur Squamous Epith Cells Urine Bacteria Urine Mucus 03/13/18 05:30 WBC RBC Hgb Hct MCV MCH MCHC RDW RDW Differential Plt Count MPV Immature Gran % (Auto) Neut % (Auto) Lymph % (Auto) [place] % (Auto) Eos % (Auto) Baso % (Auto) Absolute Neuts (auto) Absolute Lymphs (auto) Total Counted Differential Comment Specimen Type Sample Site pH Bicarbonate Actual POC Total CO2 Base Excess O2 Saturation O2 % ABG pCO2 ABG pO2 Salo Test Respiration Rate O2 Delivery Device EPAP IPAP Blood Gas Notified Whom Blood Gas Notified Time Sodium 138 Potassium 4.2 Chloride 91 L Carbon Dioxide 41.0 H Anion Gap 6 BUN 10 Creatinine 0.66 Estim Creat Clear Calc 122.71 Est GFR (MDRD) Af Amer 125 Est GFR (MDRD) Non-Af 103 BUN/Creatinine Ratio 15.1 Glucose 85 Lactic Acid Calcium 8.6 Magnesium Troponin I B-Natriuretic Peptide Triglycerides Cholesterol LDL Cholesterol VLDL Cholesterol HDL Cholesterol TSH Free T4 Urine Color Urine Clarity Urine pH Ur Specific [place] Urine Protein Urine Glucose (UA) Urine Ketones Urine Occult Blood Urine Nitrite Urine Bilirubin Urine Urobilinogen Ur Leukocyte Esterase Urine RBC Urine WBC Ur Squamous Epith Cells Urine Bacteria Urine Mucus Microbiology 03/12/18 08:26 Mucosa - Nasopharyngeal Respiratory Panel (PCR) - Final 03/11/18 12:20 Urine Catheter - Catheter Legionella Antigen - Final 03/11/18 12:20 Urine Catheter - Catheter Streptococcus pneumoniae Antigen (M - Final 03/11/18 12:40 Mucosa - Nose Influenza Types A,B Direct FA ([facility]) - Final Clinical Impression(s) from Imaging Studies Chest X-Ray 03/11/18 12:[address] 03/11/18 15:48 IMPRESSION: There is no focal consolidation. There is no pleural effusion. The appearance on chest radiograph is due to decreased lung volume on the left side compared to the right secondary to small size of the left chest cavity. This is from severe dextroscoliosis of the thoracic spine and abnormal shape of the left ribs. Electronically Signed: Shell Ochoa MD at 20:01 EDT Tel Direct: [phone], Service support , KUB X-Ray 03/11/18 16:11 IMPRESSION: No acute abnormalities are seen in the abdomen or pelvis. Electronically Signed: Shell Ochoa MD at 20:07 EDT Tel Direct: [phone], Service support , Chest X-Ray 03/11/18 21:30 IMPRESSION: There are no acute abnormalities. There is no evidence of pneumothorax on the right side. Electronically Signed: Shell Ochoa MD at 22:12 EDT Tel Direct: [phone], Service support , Medical Necessity - Tobacco Use Smoking Status: Never smoker Tobacco Use: Non-smoker Assessment/Plan All Active Problems (Last Updated 03/11/18 @ 14:54 by Cecil Butts DO) Wound, open, foot (Resolved) Acute respiratory failure with hypoxia (Acute) Sepsis (Acute) Gram-negative pneumonia (Acute) RECOMMENDATIONS: 1. Continue empiric antibiotics, pending infectious workup. 2. Continue nocturnal PAP therapy with sleeping. 3. Encourage incentive spirometer use. 4. Echocardiogram is pending. 5. Provide the patient with 1 L of supplemental IV fluid in the form of normal saline. IMPRESSIONS: 1. Acute hypoxemic respiratory failure The exact precipitating etiology is a bit unclear. The CT scan did not reveal a discernible infectious process. Alternative considerations include VQ mismatch from atelectasis versus tracheal bronchitis versus heart failure with fluid overload state. Regardless, the patient has responded to noninvasive positive pressure ventilation and is currently maintaining appropriate oxygen saturations on room air. The patient was diuresed over 3 L in the last 24 hours. Therefore, I will provide her back with a small amount of supplemental IV fluid. Surface echocardiogram is currently pending. Empiric antibiotics can be continued, pending finalized infectious workup. 2. Questionable CHF Echocardiogram is currently pending. Lasix discontinued as the patient appears to be developing a contraction alkalosis. 3. History of obstructive sleep apnea The patient does have a reported history of obstructive sleep apnea of unknown severity. She is reportedly compliant with the use of nocturnal CPAP therapy. She is currently scheduled to follow-up with Dr. Mack. In the interim, recommend continuing nocturnal PAP therapy with sleeping. 4. Anxiety/depression/GERD/constipation/baseline spina bifida/scoliosis Complicates care, management, recovery and prognosis. Likely okay to continue home medications. This note was generated with [employer] dictation software. It may contain incorrect words, spelling, and punctuation that were not noted in checking the note before signing. DISPOSITION: The patient is medically stable for transfer out of the intensive care unit. Code Visit Inpatient E&M: 17364 Subs Hosp L3
[2018-03-13] MEDS: 0.9% Normal Saline 1,000 ML 999 ML IV (07:28)
[2018-03-13] MEDS: CHLORHEXIDINE GLUC 2% CLOTH 1 EACH TOWELETTE TOPICAL (07:37)
[2018-03-13] MEDS: Multivitamins,Therapeutic Tablet 1 TABLET PO (07:38)
[2018-03-13] MEDS: Calcium Carb/Vitamin D 1 TABLET Tablet PO (07:39)
[2018-03-13] MEDS: Aspirin 81 MG TAB.CHEW PO (07:41)
--- NOTE | 2018-03-13 08:50 | PN_ITS ---
Patient Problems: Active and Suspected Problems (Last Updated 03/11/18 @ 14:54 by Cecil Butts DO) Acute respiratory failure with hypoxia (Acute) Sepsis (Acute) Gram-negative pneumonia (Acute) Subjective: Patient with no acute events overnight per self and per nursing report. Patient tolerated overnight scheduled BiPAP without issue and is transitioned to minimal supplemental oxygen. Patient mildly tachycardic this morning suspected secondary to aggressive diuresis therefore Lasix discontinued and small normal saline bolus administered. Patient notes feeling improved since initial presentation and given clinical stability per discussion with ICU will transfer to PCU. Patient denies fevers, chills, nausea, emesis, abdominal pain, chest pain or dyspnea. Objective: Physical Examination: General: awake, alert, oriented x 3, improved appearance this AM, notes feeling weak, but notably improved, not short of breath. Skin: normal color, turgor, no icterus, cyanosis. HEENT: AT/NC, EOMI, PERRLA, improved MMM, thickened neck. Lungs: Improved BS, still diminished BL, > bases, improved effort, no rales, ronchi or wheezing. Heart: Regular rate and rhythm; no gallop, rub audible. Abdomen: soft, obese, NTTP, minimally distended, mildly decreased BS. Extremities: no cyanosis, clubbing, shortened stature, no pitting edema to extremities. Neurological: awake, alert, oriented x 3, improved appearance this AM; bseated upright in bed in no apparent distress; cognitive function improved, baseline per family; pupils equally reactive to light and accomodation; cranial nerves II-XII grossly normal, spina bifida, baseline wheelchair bound, moving upper extremities only, limited, strength improved, moderately to severely globally decreased. Psychiatric: affect appears improved, more interactive, no acute evidence of depressive or anxiety feelings. Vitals/I&O's: Vital Signs Temp Pulse Resp BP Pulse Ox 99.1 F 118 H 21 H 115/75 92 03/13/18 08:00 03/13/18 08:00 03/13/18 08:00 03/13/18 08:00 03/13/18 08:00 Oxygen Flow Rate (L/min) 1 Oxygen Delivery Method Room Air Weight: 154 lb 5.177 oz Body Mass Index (BMI) 36.7 Intake and Output for Last 24 Hours 03/11/18 03/12/1803/13/18 23:59 23:59 23:59 Intake Total 1135 / 1135 597 / 597 982 / 982 Output Total 650 / 650 3725 / 3725 800 / 800 Balance 485 / 485 -3128 / -3128 182 / 182 Microbiology Past 72 Hours 03/11/18 12:50 Blood Culture (Wb) - Anticubital Left Blood Culture - Preliminary No growth in 48 hours. 03/12/18 08:26 Mucosa - Nasopharyngeal Respiratory Panel (PCR) - Final 03/11/18 12:20 Urine Catheter - Catheter Legionella Antigen - Final 03/11/18 12:20 Urine Catheter - Catheter Streptococcus pneumoniae Antigen (M - Final 03/11/18 12:40 Mucosa - Nose Influenza Types A,B Direct FA ([facility]) - Final Laboratory Results 03/12/18 11:30: Sodium 142, Potassium 3.1 L, Chloride 101, Carbon Dioxide 35.0 H , Anion Gap 6, BUN 7, Creatinine 0.64, Estim Creat Clear Calc 133.95, Est GFR (MDRD) Af Amer 130, Est GFR (MDRD) Non-Af 107, BUN/Creatinine Ratio 10.9, Glucose 92, Calcium 8.1 L 03/12/18 11:30: Magnesium 2.0, Triglycerides 161, Cholesterol 129, LDL Cholesterol 88, VLDL Cholesterol 32, HDL Cholesterol 9 L, TSH 2.40, Free T4 1.14 03/12/18 11:30: Troponin I 0.021 03/12/18 14:30: WBC 13.2 H, RBC 3.54 L, Hgb 10.2 L, Hct 32.7 L, MCV 92.4, MCH 28.8, MCHC 31.2 L, RDW 15.0 H, RDW Differential 51.2 H, Plt Count 309, MPV 9.2, Immature Gran % (Auto) 0.300, Neut % (Auto) 73.0 H, Lymph % (Auto) 16.2 L, [place] % (Auto) 9.0, Eos % (Auto) 1.2, Baso % (Auto) 0.3, Absolute Neuts (auto) 9.7 H, Absolute Lymphs (auto) 2.14, Total Counted Not Reportable, Differential Comment 03/12/18 14:30: Troponin I 0.018 03/12/18 14:30: Sodium Cancelled, Potassium Cancelled, Chloride Cancelled, Carbon Dioxide Cancelled, Anion Gap Cancelled, BUN Cancelled, Creatinine Cancelled, Estim Creat Clear Calc Cancelled, Est GFR (MDRD) Af Amer Cancelled, Est GFR (MDRD) Non-Af Cancelled, BUN/Creatinine Ratio Cancelled, Glucose Cancelled, Calcium Cancelled 03/12/18 17:20: Troponin I < 0.015 03/12/18 17:20: Sodium 138, Potassium 3.4 L, Chloride 92 L, Carbon Dioxide 40.0 H, Anion Gap 6, BUN 7, Creatinine 0.64, Estim Creat Clear Calc 133.95, Est GFR (MDRD) Af Amer 130, Est GFR (MDRD) Non-Af 108, BUN/Creatinine Ratio 10.9, Glucose 86, Calcium 8.3 L 03/13/18 00:45: Potassium 3.4 L 03/13/18 05:30: Sodium 138, Potassium 4.2, Chloride 91 L, Carbon Dioxide 41.0 H, Anion Gap 6, BUN 10, Creatinine 0.66, Estim Creat Clear Calc 122.71, Est GFR (MDRD) Af Amer 125, Est GFR (MDRD) Non-Af 103, BUN/Creatinine Ratio 15.1, Glucose 85, Calcium 8.6 Current Medications Acetaminophen (Tylenol) 650 mg PO Q4H PRN PRN PRN Reason: FEVER Albuterol Sulfate (Ventolin Aerosols) 2.5 mg INHALATION Q2H PRN PRN PRN Reason: SHORTNESS OF BREATH Albuterol/Ipratropium (Duoneb) 3 ml INHALATION Q4H.RT [facility] Last Admin: 03/13/18 06:33 Dose: 3 ml Ascorbic Acid (Vitamin C) 1,000 mg PO DAILY [facility] Last Admin: 03/12/18 09:28 Dose: 1,000 mg Aspirin (Aspirin, Baby) 81 mg PO DAILY@0800 [facility] Last Admin: 03/13/18 07:41 Dose: 81 mg Calcium/Vitamin D (Os-Yrn 500mg + D) [facility] Last Admin: 03/13/18 07:39 Dose: 1 tablet Chlorhexidine Gluconate () 1 each TOPICAL DAILY [facility] Last Admin: 03/13/18 07:37 Dose: 1 each Docusate Sodium (Colace) 100 mg PO QHS [facility] Last Admin: 03/12/18 20:36 Dose: 100 mg Enoxaparin Sodium (Lovenox) 40 mg SC DAILY@1000 [facility] Last Admin: 03/12/18 09:35 Dose: 40 mg Guaifenesin (Mucinex) 1,200 mg PO BID [facility] Last Admin: 03/12/18 20:36 Dose: 1,200 mg Azithromycin 500 mg/ Dextrose 255 mls @ 250 mls/hr IV DAILY@2200 [facility] Last Admin: 03/12/18 21:42 Dose: 250 mls/hr Ceftriaxone Sodium (Rocephin) 1 gm in 50 mls @ 100 mls/hr IV Q24 [facility] Last Admin: 03/12/18 11:51 Dose: 100 mls/hr Lactobacillus Acidophilus (Acidophilus) 1 tablet PO DAILY [facility] Last Admin: 03/12/18 09:29 Dose: 1 tablet Magnesium Hydroxide (Milk Of Magnesia) 30 ml PO DAILY PRN PRN PRN Reason: Constipation Multivitamins (Multivitamin) 1 [facility] Last Admin: 03/13/18 07:38 Dose: 1 tablet Ondansetron HCl (Zofran) 4 mg IV Q8H PRN PRN PRN Reason: NAUSEA Pantoprazole Sodium (Protonix) 20 mg PO QHS [facility] Last Admin: 03/12/18 20:36 Dose: 20 mg Paroxetine HCl (Paxil) 40 mg PO DAILY [facility] Last Admin: 03/12/18 09:33 Dose: 40 mg Polyethylene Glycol (Miralax) 17 gm PO DAILY PRN PRN Reason: Constipation Sodium Chloride () 5 - 30 ml IV UD PRN PRN Reason: SALINE FLUSH Last Admin: 03/13/18 05:23 Dose: 20 ml Tolterodine Tartrate (Detrol La) 4 mg PO DAILY [facility] Last Admin: 03/12/18 09:35 Dose: 4 mg Medical Necessity - Tobacco Use Smoking Status: Never smoker Tobacco Use: Non-smoker Assessment/Plan All Active Problems (Last Updated 03/11/18 @ 14:54 by Cecil Butts DO) Wound, open, foot (Resolved) Acute respiratory failure with hypoxia (Acute) Sepsis (Acute) Gram-negative pneumonia (Acute) The patient is a 42 y/o F w/ PMHx: Spina Bifida w/ severe scoliosis, GERD, Anxi ety and Depression, Obesity, Recent OSH [facility] for constipation, UTI w/ sepsis and noted tachypnea and hypoxia at that time discharged on 03/10/18 with presentation to the [facility] ED on 03/11/18 with ongoing dyspnea, progressively worsening and home oxygenation 70%. (1) Acute Hypoxic Respiratory Failure secondary to ? Possible Pneumonia (CAP) and #2 More Likely Suspected Volume Overload secondary to Recent OSH Resuscitation w/ Sepsis/UTI, Lower suspicion of Actual CHF Unclear Type: CXR in the ED w/ small left-sided pleural effusion versus pleural thickening, bilateral increased reticular markings possibly consistent with mild pulmonary vascular congestion versus interstitial pneumonitis, CT chest with no focal consolidation, no pleural effusion, decreased lung volume left side compared to right secondary to small size of the left chest, severe dextroscoliosis of the thoracic spine and abnormal shape of the left ribs, KUB unremarkable. Admission CBC w/ WBC 13.5 with L shift, LA normal, worsened status with increased RR, accessory muscle usage w/ transition to BIPAP. Transferred to the ICU, maintained on BIPAP initially with eventual wean to NC, ATC duonebs, PRN albuterol, maintained on IV Rocephin and Azithromycin, PICC Placement secondary to access difficulties, continue HOB, IS parameters w/ requested sputum cultures, negative respiratory viral panel, negative urine antigens. Lasix as noted #2 discontinued. ECHO not marked appearing. Suspect presentation likely secondary to aggressive hydration w/ sepsis w/ UTI at OSH. Bld cx x 2 obtained in the ED without growth. UCx without growth. If remains stable, plan discharge in AM pending therapy recommendations. Will discuss abx continuation with ICU physician. (2) Suspected Volume Overload, ? Less Suspected Decompensated CHF: CXR obtained in the ED w/ congestion, recent 20 lb weight gain following [facility] admissions and current. Patient maintained on telemetry without event, cardiac enzyme series not marked, serial EKGs not marked, continued IV lasix diuresis with discontinuation secondary to notable successful diuresis w/ actually IVF administered w/ bolus following secondary to tachycardia w/ an early contraction alkalosis secondary to her diuresis, monitored I/Os, continue medical therapy w/ asa, FLP w/ TG 161, TChol 129, LDL 88, VLDL 32, HDL 9. Hold on further agent administration pending ICU evaluation also given atypical presentation. TSH normal. Mag normal. ECHO obtained w/ normal LV size, normal LV systolic function, EF 60%, mild TBI, PAS P 37 mmHg. (3) Prior to Admission Recent UTI: Unclear organism, UA not marked appearing on current presentation, UCx without growth, treatment for #1 and #2 as noted. (4) Spina Bifida w/ Severe Scoliosis: Fall precautions, position changes, barrier regimen, PT, OT, CM consultation. (5) Chronic Constipation: KUB not marked appearing, maintain on bowel regimen, monitor I&O. (6) Anxiety and Depression: Maintain on home paxil regimen. (7) GERD: PPI. (8) DARIO: History of DARIO, continue q HS BIPAP currently per Pulmonary recommendation. Will need pulmonary/sleep reassessment outpatient of her home DARIO settings. (9) DVT prophylaxis: SCDs, lovenox. Code Visit Inpatient E&M: 59954 Subs Hosp L2
--- NOTE | 2018-03-13 11:02 | CASEMGMT ---
HUBERT met with patient and her mom. Introduced self and role at [facility]. Confirmed patient's primary care doctor is Dr Delores Alford who is located in [place], [place]. She sees Dr Mack. Their home is one level with a ramp entrance. Patient has a track system set up in the bathroom as patient is wc bound. They have a slide board to help with transfers, and a wheelchair as well as accessible van. They use [facility] in [place]. Patient has a cpap through [employer]. Patient is active with the waiver program and her case mgr is Mgean Herrmann. They currently do not have any aides. Megan is trying to find an aide, but there is a shortage locally. She is not sure if they will need anything at d/c. HUBERT told her we will follow along and assist if needed. Anette TIMMONS
[2018-03-13] MEDS: Ceftriaxone 1 GM/50 mL Premix Q24 IV (11:46)
[2018-03-13] MEDS: Ascorbic Acid 500 MG Tablet 1000 MG PO (11:46)
[2018-03-13] MEDS: Enoxaparin 40 MG/0.4 ML Syringe SC (11:47)
[2018-03-13] MEDS: Tolterodine Tartrate 4 MG CAP.SA PO (11:47)
[2018-03-13] MEDS: guaiFENesin 1,200 MG Tablet 1200 MG PO ×2 (11:52→21:27)
--- NOTE | 2018-03-13 13:48 | NURSING ---
Changed in ICU prior to transfer to PCU
--- NOTE | 2018-03-13 17:35 | RAD_ITS ---
STUDY: X-RAY CHEST REASON FOR EXAM: Female, 42 years old. Shortness of breath. Sepsis. Pneumonia. TECHNIQUE: Single AP portable view of the chest. COMPARISON: March 11, 2018. FINDINGS: Telemetry wires overlie the chest. The lungs are hypoexpanded. There is no mass or infiltrate. There is no demonstrated pleural abnormality. Normal size heart. Normal mediastinum and fareed. Normal visualized pulmonary arteries. Normal visualized aortic arch and descending thoracic aorta. There is marked dextroscoliosis of the thoracic spine. There are Mota rods extending from the mid thoracic spine inferiorly. There is degenerative osteoarthritis of the bilateral shoulders. There is no demonstrated abnormality of the visualized soft tissue structures of the upper abdomen. RAD/Chest 1 View (Portable) IMPRESSION: No acute cardiopulmonary disease. There is no other interval change. Electronically Signed: Tacos Rene DO at 18:14 EDT Tel [phone], Service support ,
[2018-03-13] MEDS: LORazepam 2 MG/ML Syringe 0.5 MG IV (18:15)
[2018-03-13] MEDS: Pantoprazole Sodium 20 MG Tablet PO (21:27)
[2018-03-13] MEDS: Docusate Sodium 100 MG Capsule PO (21:27)
[2018-03-14] VITALS (10 sets, daily range): BP systolic 102–134; BP diastolic 66–93; PULSE 92–118; RESP 12–21; TEMP 36.2–37.1; O2SAT 92–100
[2018-03-14] MEDS: Ipratropium/Albuterol Sulfate 3 ML AMPUL.NEB INHALATION ×2 (03:35→06:54)
--- NOTE | 2018-03-14 07:02 | PCM.PN.HOSP ---
Patient Problems: Active and Suspected Problems (Last Updated 03/11/18 @ 14:54 by Cecil Butts DO) Acute respiratory failure with hypoxia (Acute) Sepsis (Acute) Gram-negative pneumonia (Acute) Subjective: Patient with recurrent episode 03/13/18 evening w/ dyspnea appearance, agitation, possibly anxiety, BIPAP replaced, repeat CXR without marked findings. PRN ativan initiated. She with no recurrent events but speech therapy evaluation today with suspected likely vocal cord dysfunction with no evidence of aspiration. Discussed with pulmonary medicine and given no findings of aspiration discontinue antibiotic therapy as do not suspect underlying pneumonia and do not suspect underlying CHF history but likely presentation secondary to volume overload from recent aggressive resuscitation from sepsis with UTI at outside facility. Patient denies fevers, chills, nausea, emesis, abdominal pain, chest pain or dyspnea. Objective: Physical Examination: General: awake, alert, oriented x 3, NAD, no current dyspnea. Skin: normal color, turgor, no icterus, cyanosis. HEENT: AT/NC, EOMI, PERRLA, MMM. Lungs: Improved BS, still diminished BL, > bases, no rales, ronchi or wheezing. Heart: Regular rate and rhythm; no gallop, rub audible. Abdomen: soft, obese, NTTP, minimally distended, mildly decreased BS. Extremities: no cyanosis, clubbing, shortened stature, no pitting edema to extremities. Neurological: awake, alert, oriented x 3, seated upright in bed in no apparent distress; cognitive function improved, baseline per family; pupils equally reactive to light and accomodation; cranial nerves II-XII grossly normal, spina bifida, baseline wheelchair bound, moving upper extremities only, limited, strength improved, moderately to severely globally decreased. Psychiatric: affect appears improved, calm, no acute evidence of depressive or anxiety feelings. Vitals/I&O's: Vital Signs Temp Pulse Resp BP Pulse Ox 98.0 F 92 17 134/93 H 100 03/14/18 06:15 03/14/18 06:15 03/14/18 06:15 03/14/18 06:15 03/14/18 06:15 Oxygen Flow Rate (L/min) 2 Oxygen Delivery Method Bi-pap Weight: 156 lb 15.506 oz Body Mass Index (BMI) 36.7 Intake and Output for Last 24 Hours 03/12/18 03/13/18 03/14/18 23:59 23:59 23:59 Intake Total 597 / 597 2907 / 2907 Output Total 3725 / 3725 1700 / 1700 100 / 100 Balance -3128 / -3128 1207 / 1207 -100 / -100 Microbiology Past 72 Hours 03/11/18 12:50 Blood Culture (Wb) - Anticubital Left Blood Culture - Preliminary 03/11/18 12:30 Urine, Catheterized Urine Culture - Final Culture exhibits no growth. 03/12/18 08:26 Mucosa - Nasopharyngeal Respiratory Panel (PCR) - Final 03/11/18 12:20 Urine Catheter - Catheter Legionella Antigen - Final 03/11/18 12:20 Urine Catheter - Catheter Streptococcus pneumoniae Antigen (M - Final 03/11/18 12:40 Mucosa - Nose Influenza Types A,B Direct FA ([facility]) - Final Current Medications Acetaminophen (Tylenol) 650 mg PO Q4H PRN PRN PRN Reason: FEVER Albuterol Sulfate (Ventolin Aerosols) 2.5 mg INHALATION Q2H PRN PRN PRN Reason: SHORTNESS OF BREATH Albuterol/Ipratropium (Duoneb) 3 ml INHALATION Q4H.RT [facility] Last Admin: 03/14/18 06:54 Dose: 3 ml Ascorbic Acid (Vitamin C) 1,000 mg PO DAILY [facility] Last Admin: 03/13/18 11:46 Dose: 1,000 mg Aspirin (Aspirin, Baby) 81 mg PO DAILY@0800 [facility] Last Admin: 03/13/18 07:41 Dose: 81 mg Calcium/Vitamin D (Os-Yrn 500mg + D) [facility] Admin: 03/13/18 07:39 Dose: 1 tablet Chlorhexidine Gluconate () 1 each TOPICAL DAILY [facility] Last Admin: 03/13/18 07:37 Dose: 1 each Docusate Sodium (Colace) 100 mg PO QHS [facility] Last Admin: 03/13/18 21:27 Dose: 100 mg Enoxaparin Sodium (Lovenox) 40 mg SC DAILY@1000 [facility] Last Admin: 03/13/18 11:47 Dose: 40 mg Guaifenesin (Mucinex) 1,200 mg PO BID [facility] Last Admin: 03/13/18 21:27 Dose: 1,200 mg Azithromycin 500 mg/ Dextrose 255 mls @ 250 mls/hr IV DAILY@2200 [facility] Last Admin: 03/13/18 21:28 Dose: 250 mls/hr Ceftriaxone Sodium (Rocephin) 1 gm in 50 mls @ 100 mls/hr IV Q24 [facility] Last Admin: 03/13/18 11:46 Dose: 100 mls/hr Lactobacillus Acidophilus (Acidophilus) 1 tablet PO DAILY [facility] Last Admin: 03/13/18 11:48 Dose: 1 tablet Lorazepam (Ativan) 0.5 mg IV Q6H PRN PRN PRN Reason: anxiety, agitation Last Admin: 03/13/18 18:15 Dose: 0.5 mg Magnesium Hydroxide (Milk Of Magnesia) 30 ml PO DAILY PRN PRN PRN Reason: Constipation Multivitamins (Multivitamin) 1 tablet PO DAILYCM [facility] Last Admin: 03/13/18 07:38 Dose: 1 tablet Ondansetron HCl (Zofran) 4 mg IV Q8H PRN PRN PRN Reason: NAUSEA Pantoprazole Sodium (Protonix) 20 mg PO QHS [facility] Last Admin: 03/13/18 21:27 Dose: 20 mg Paroxetine HCl (Paxil) 40 mg PO DAILY [facility] Last Admin: 03/13/18 11:47 Dose: 40 mg Polyethylene Glycol (Miralax) 17 gm PO DAILY PRN PRN Reason: Constipation Sodium Chloride () 5 - 30 ml IV UD PRN PRN Reason: SALINE FLUSH Last Admin: 03/13/18 21:44 Dose: 10 ml Tolterodine Tartrate (Detrol La) 4 mg PO DAILY [facility] Last Admin: 03/13/18 11:47 Dose: 4 mg Medical Necessity - Tobacco Use Smoking Status: Never smoker Tobacco Use: Non-smoker Assessment/Plan All Active Problems (Last Updated 03/11/18 @ 14:54 by Cecil Butts DO) Wound, open, foot (Resolved) Acute respiratory failure with hypoxia (Acute) Sepsis (Acute) Gram-negative pneumonia (Acute) The patient is a 42 y/o F w/ PMHx: Spina Bifida w/ severe scoliosis, GERD, Anxiety and Depression, Obesity, Recent [facility] admission for constipation, UTI w/ sepsis and noted tachypnea and hypoxia at that time discharged on 03/10/18 with presentation to the [facility] ED on 03/11/18 with ongoing dyspnea, progressively worsening and home oxygenation 70%. (1) Acute Hypoxic Respiratory Failure secondary to ? Possible Pneumonia (CAP) and #2 More Likely Suspected Volume Overload secondary to Recent OSH Resuscitation w/ Sepsis/UTI, Lower suspicion of Actual CHF Unclear Type: CXR in the ED w/ small left-sided pleural effusion versus pleural thickening, bilateral increased reticular markings possibly consistent with mild pulmonary vascular congestion versus interstitial pneumonitis, CT chest with no focal consolidation, no pleural effusion, decreased lung volume left side compared to right secondary to small size of the left chest, severe dextroscoliosis of the thoracic spine and abnormal shape of the left ribs, KUB unremarkable. Admission CBC w/ WBC 13.5 with L shift, LA normal, worsened status with increased RR, accessory muscle usage w/ transition to BIPAP. Transferred to the ICU, maintained on BIPAP initially with eventual wean to NC, ATC duonebs, PRN albuterol, maintained on IV Rocephin and Azithromycin, PICC Placement secondary to access difficulties, continue HOB, IS parameters w/ requested sputum cultures, negative respiratory viral panel, negative urine antigens. Lasix as noted #2 discontinued. ECHO not marked appearing. Suspect presentation likely secondary to aggressive hydration w/ sepsis w/ UTI at OSH. Bld cx x 2 obtained in the ED without growth. UCx without growth. 03/13/18 evening similar presentation to prior, worsened appearance dyspnea, although appeared more consistent with anxiety drive, BIPAP replaced, repeat CXR without acute findings, remained afebrile, discussed w/ pulmonary and may be vocal cord dysfunction as an etiology for this presentation w/ possible ENT evaluation upon discharge. Will discuss discharge planning timeline and abx therapy with Pulmonary. ST evaluation with feeling likely vocal cord issues, no signs of aspiration. (2) Suspected Volume Overload, ? Less Suspected Decompensated CHF: CXR obtained in the ED w/ congestion, recent 20 lb weight gain following [facility] admissions and current. Patient maintained on telemetry without event, cardiac enzyme series not marked, serial EKGs not marked, continued IV lasix diuresis with discontinuation secondary to notable successful diuresis w/ actually IVF administered w/ bolus following secondary to tachycardia w/ an early contraction alkalosis secondary to her diuresis, monitored I/Os, continue medical therapy w/ asa, FLP w/ TG 161, TChol 129, LDL 88, VLDL 32, HDL 9. Hold on further agent administration pending ICU evaluation also given atypical presentation. TSH normal. Mag normal. ECHO obtained w/ normal LV size, normal LV systolic function, EF 60%, mild TBI, PAS P 37 mmHg. 03/13/18 evening repeat CXR no marked appearing. (3) Prior to Admission Recent UTI: Unclear organism, UA not marked appearing on current presentation, UCx without growth, treatment for #1 and #2 as noted. (4) Spina Bifida w/ Severe Scoliosis: Fall precautions, position changes, barrier regimen, PT, OT, CM consultation. (5) Chronic Constipation: KUB not marked appearing, maintain on bowel regimen, monitor I&O. (6) Anxiety and Depression: Maintain on home paxil regimen. (7) GERD: PPI. (8) DARIO: History of DARIO, continue q HS BIPAP currently per Pulmonary recommendation. Will need pulmonary/sleep reassessment outpatient of her home DARIO settings. (9) DVT prophylaxis: SCDs, lovenox.
--- NOTE | 2018-03-14 07:05 | PN_ITS ---
Patient Problems: Active and Suspected Problems (Last Updated 03/11/18 @ 14:54 by Cecil Butts DO) Acute respiratory failure with hypoxia (Acute) Sepsis (Acute) Gram-negative pneumonia (Acute) Subjective: Patient with recurrent episode 03/13/18 evening w/ dyspnea appearance, agitation, possibly anxiety, BIPAP replaced, repeat CXR without marked findings. PRN ativan initiated. She with no recurrent events but speech therapy evaluation today with suspected likely vocal cord dysfunction with no evidence of aspiration. Discussed with pulmonary medicine and given no findings of aspiration discontinue antibiotic therapy as do not suspect underlying pneumonia and do not suspect underlying CHF history but likely presentation secondary to volume overload from recent aggressive resuscitation from sepsis with UTI at outside facility. Patient denies fevers, chills, nausea, emesis, abdominal pain, chest pain or dyspnea. Objective: Physical Examination: General: awake, alert, oriented x 3, NAD, no current dyspnea. Skin: normal color, turgor, no icterus, cyanosis. HEENT: AT/NC, EOMI, PERRLA, MMM. Lungs: Improved BS, still diminished BL, > bases, no rales, ronchi or wheezing. Heart: Regular rate and rhythm; no gallop, rub audible. Abdomen: soft, obese, NTTP, minimally distended, mildly decreased BS. Extremities: no cyanosis, clubbing, shortened stature, no pitting edema to extremities. Neurological: awake, alert, oriented x 3, seated upright in bed in no apparent distress; cognitive function improved, baseline per family; pupils equally reactive to light and accomodation; cranial nerves II-XII grossly normal, spina bifida, baseline wheelchair bound, moving upper extremities only, limited, strength improved, moderately to severely globally decreased. Psychiatric: affect appears improved, calm, no acute evidence of depressive or anxiety feelings. Vitals/I&O's: Vital Signs Temp Pulse Resp BP Pulse Ox 98.0 F 92 17 134/93 H 100 03/14/18 06:15 03/14/18 06:15 03/14/18 06:15 03/14/18 06:15 03/14/18 06:15 Oxygen Flow Rate (L/min) 2 Oxygen Delivery Method Bi-pap Weight: 156 lb 15.506 oz Body Mass Index (BMI) 36.7 Intake and Output for Last 24 Hours 03/12/18 03/13/18 03/14/18 23:59 23:59 23:59 Intake Total 597 / 597 2907 / 2907 Output Total 3725 / 3725 1700 / 1700 100 / 100 Balance -3128 / -3128 1207 / 1207 -100 / -100 Microbiology Past 72 Hours 03/11/18 12:50 Blood Culture (Wb) - Anticubital Left Blood Culture - Preliminary 03/11/18 12:30 Urine, Catheterized Urine Culture - Final Culture exhibits no growth. 03/12/18 08:26 Mucosa - Nasopharyngeal Respiratory Panel (PCR) - Final 03/11/18 12:20 Urine Catheter - Catheter Legionella Antigen - Final 03/11/18 12:20 Urine Catheter - Catheter Streptococcus pneumoniae Antigen (M - Final 03/11/18 12:40 Mucosa - Nose Influenza Types A,B Direct FA ([place]) - Final Current Medications Acetaminophen (Tylenol) 650 mg PO Q4H PRN PRN PRN Reason: FEVER Albuterol Sulfate (Ventolin Aerosols) 2.5 mg INHALATION Q2H PRN PRN PRN Reason: SHORTNESS OF BREATH Albuterol/Ipratropium (Duoneb) 3 ml INHALATION Q4H.RT [facility] Last Admin: 03/14/18 06:54 Dose: 3 ml Ascorbic Acid (Vitamin C) 1,000 mg PO DAILY [facility] Last Admin: 03/13/18 11:46 Dose: 1,000 mg Aspirin (Aspirin, Baby) 81 mg PO DAILY@0800 [facility] Last Admin: 03/13/18 07:41 Dose: 81 mg Calcium/Vitamin D (Os-Yrn 500mg + D) [facility] Last Admin: 03/13/18 07:39 Dose: 1 tablet Chlorhexidine Gluconate () 1 each TOPICAL DAILY [facility] Last Admin: 03/13/18 07:37 Dose: 1 each Docusate Sodium (Colace) 100 mg PO QHS [facility] Last Admin: 03/13/18 21:27 Dose: 100 mg Enoxaparin Sodium (Lovenox) 40 mg SC DAILY@1000 [facility] Last Admin: 03/13/18 11:47 Dose: 40 mg Guaifenesin (Mucinex) 1,200 mg PO BID [facility] Last Admin: 03/13/18 21:27 Dose: 1,200 mg Azithromycin 500 mg/ Dextrose 255 mls @ 250 mls/hr IV DAILY@2200 [facility] Last Admin: 03/13/18 21:28 Dose: 250 mls/hr Ceftriaxone Sodium (Rocephin) 1 gm in 50 mls @ 100 mls/hr IV Q24 [facility] Last Admin: 03/13/18 11:46 Dose: 100 mls/hr Lactobacillus Acidophilus (Acidophilus) 1 tablet PO DAILY [facility] Last Admin: 03/13/18 11:48 Dose: 1 tablet Lorazepam (Ativan) 0.5 mg IV Q6H PRN PRN PRN Reason: anxiety, agitation Last Admin: 03/13/18 18:15 Dose: 0.5 mg Magnesium Hydroxide (Milk Of Magnesia) 30 ml PO DAILY PRN PRN PRN Reason: Constipation Multivitamins (Multivitamin) 1 tablet PO DAILYCM [facility] Last Admin: 03/13/18 07:38 Dose: 1 tablet Ondansetron HCl (Zofran) 4 mg IV Q8H PRN PRN PRN Reason: NAUSEA Pantoprazole Sodium (Protonix) 20 mg PO QHS [facility] Last Admin: 03/13/18 21:27 Dose: 20 mg Paroxetine HCl (Paxil) 40 mg PO DAILY [facility] Last Admin: 03/13/18 11:47 Dose: 40 mg Polyethylene Glycol (Miralax) 17 gm PO DAILY PRN PRN Reason: Constipation Sodium Chloride () 5 - 30 ml IV UD PRN PRN Reason: SALINE FLUSH Last Admin: 03/13/18 21:44 Dose: 10 ml Tolterodine Tartrate (Detrol La) 4 mg PO DAILY [facility] Last Admin: 03/13/18 11:47 Dose: 4 mg Medical Necessity - Tobacco Use Smoking Status: Never smoker Tobacco Use: Non-smoker Assessment/Plan All Active Problems (Last Updated 03/11/18 @ 14:54 by Cecil Butts DO) Wound, open, foot (Resolved) Acute respiratory failure with hypoxia (Acute) Sepsis (Acute) Gram-negative pneumonia (Acute) The patient is a 42 y/o F w/ PMHx: Spina Bifida w/ severe scoliosis, GERD, Anxiety and Depression, Obesity, Recent [facility] admission for constip ation, UTI w/ sepsis and noted tachypnea and hypoxia at that time discharged on 03/10/18 with presentation to the [facility] ED on 03/11/18 with ongoing dyspnea, progressively worsening and home oxygenation 70%. (1) Acute Hypoxic Respiratory Failure secondary to ? Possible Pneumonia (CAP) and #2 More Likely Suspected Volume Overload secondary to Recent OSH Resuscitation w/ Sepsis/UTI, Lower suspicion of Actual CHF Unclear Type: CXR in the ED w/ small left-sided pleural effusion versus pleural thickening, bilateral increased reticular markings possibly consistent with mild pulmonary vascular congestion versus interstitial pneumonitis, CT chest with no focal consolidation, no pleural effusion, decreased lung volume left side compared to right secondary to small size of the left chest, severe dextroscoliosis of the thoracic spine and abnormal shape of the left ribs, KUB unremarkable. Admission CBC w/ WBC 13.5 with L shift, LA normal, worsened status with increased RR, accessory muscle usage w/ transition to BIPAP. Transferred to the ICU, maintained on BIPAP initially with eventual wean to NC, ATC duonebs, PRN albuterol, maintained on IV Rocephin and Azithromycin, PICC Placement secondary to access difficulties, continue HOB, IS parameters w/ requested sputum cultures, negative respiratory viral panel, negative urine antigens. Lasix as noted #2 discontinued. ECHO not marked appearing. Suspect presentation likely secondary to aggressive hydration w/ sepsis w/ UTI at OSH. Bld cx x 2 obtained in the ED without growth. UCx without growth. 03/13/18 evening similar presentation to prior, worsened appearance dyspnea, although appeared more consistent with anxiety drive, BIPAP replaced, repeat CXR without acute findings, remained afebrile, discussed w/ pulmonary and may be vocal cord dysfun ction as an etiology for this presentation w/ possible ENT evaluation upon discharge. Will discuss discharge planning timeline and abx therapy with Pulmonary. ST evaluation with feeling likely vocal cord issues, no signs of aspiration. (2) Suspected Volume Overload, ? Less Suspected Decompensated CHF: CXR obtained in the ED w/ congestion, recent 20 lb weight gain following [facility] admissions and current. Patient maintained on telemetry without event, cardiac enzyme series not marked, serial EKGs not marked, continued IV lasix diuresis with discontinuation secondary to notable successful diuresis w/ actually IVF administered w/ bolus following secondary to tachycardia w/ an early contraction alkalosis secondary to her diuresis, monitored I/Os, continue medical therapy w/ asa, FLP w/ TG 161, TChol 129, LDL 88, VLDL 32, HDL 9. Hold on further agent administration pending ICU evaluation also given atypical presentation. TSH normal. Mag normal. ECHO obtained w/ normal LV size, normal LV systolic function, EF 60%, mild TBI, PAS P 37 mmHg. 03/13/18 evening repeat CXR no marked appearing. (3) Prior to Admission Recent UTI: Unclear organism, UA not marked appearing on current presentation, UCx without growth, treatment for #1 and #2 as noted. (4) Spina Bifida w/ Severe Scoliosis: Fall precautions, position changes, barrier regimen, PT, OT, CM consultation. (5) Chronic Constipation: KUB not marked appearing, maintain on bowel regimen, monitor I&O. (6) Anxiety and Depression: Maintain on home paxil regimen. (7) GERD: PPI. (8) DARIO: History of DARIO, continue q HS BIPAP currently per Pulmonary recommendation. Will need pulmonary/sleep reassessment outpatient of her home [facility]ARIO settings. (9) DVT prophylaxis: SCDs, lovenox.
--- NOTE | 2018-03-14 07:18 | PCM.PROGNOTE ---
Patient Problems: Active and Suspected Problems (Last Updated 03/11/18 @ 14:54 by Cecil Butts DO) Acute respiratory failure with hypoxia (Acute) Sepsis (Acute) Gram-negative pneumonia (Acute) Subjective: The patient was seen and examined at the bedside this morning. Events from the last 24 hours have been reviewed. The patient is currently afebrile, hemodynamically stable and maintaining appropriate oxygen saturations on BiPAP. Last evening the patient was noted to have an episode of shortness of breath with possible anxiety contributing. She was placed back on BiPAP. This morning, the patient reports feeling well. She denies any resting shortness of breath. She does report that she has been experiencing intermittent episodes of acute onset dyspnea with an associated tightness and/or choking sensation in her throat. These episodes appear to be unrelated to food or liquid ingestion. She does report having a great deal of anxiety. Objective: The patient's most recent lab work, culture data and imaging studies have all been personally reviewed. Infectious workup has been negative to date. Surface echocardiogram revealed normal LV size and function with an ejection fraction of 60%. Pulmonary artery systolic pressure was estimated to be 37 mmHg. - Physical Exam General: Alert, Cooperative, No apparent distress HEENT: Atraumatic, PERRLA, Normocephalic Oral: No Gingival or Mucosal Lesions/ Ulcerations Neck: Supple, No Nodes, Trachea Midline Lungs: No rhonchi, No wheeze, No rales, Diminished Cardiovascular: Regular rate, Regular Rhythm, Normal S1, Normal S2, No murmurs Abdomen: Bowel Sounds Present, Soft, Non Tender Extremities: No clubbing, No cyanosis, No edema Skin: No breakdown Musculoskeletal: - - No significant change from previous. Lymphatic: No Cervical, Supraclavicular, or Inguinal Adenopathy Neurological: Neuro grossly intact Psych/Mental Status: Flat Affect Vital Signs Temp Pulse Resp BP Pulse Ox 98.0 F 92 17 134/93 H 100 03/14/18 06:15 03/14/18 06:15 03/14/18 06:15 03/14/18 06:15 03/14/18 06:15 Oxygen Flow Rate (L/min) 2 Oxygen Delivery Method Bi-pap Weight: 156 lb 15.506 oz Body Mass Index (BMI) 36.7 Intake and Output for Last 24 Hours 03/12/18 03/13/18 03/14/18 23:59 23:59 23:59 Intake Total 597 / 597 2907 / 2907 Output Total 3725 / 3725 1700 / 1700 100 / 100 Balance -3128 / -3128 1207 / 1207 -100 / -100 Microbiology Past 72 Hours 03/11/18 12:50 Blood Culture - Preliminary Blood Culture (Wb) - Anticubital Left 03/11/18 12:30 Urine Culture - Final Urine, Catheterized Culture exhibits no growth. 03/12/18 08:26 Respiratory Panel (PCR) - Final Mucosa - Nasopharyngeal 03/11/18 12:20 Legionella Antigen - Final Urine Catheter - Catheter 03/11/18 12:20 Streptococcus pneumoniae Antigen (M - Final Urine Catheter - Catheter 03/11/18 12:40 Influenza Types A,B Direct FA ([facility]) - Final Mucosa - Nose Labs (Last 48 Hours) 03/12/18 03/12/18 03/12/18 08:34 11:30 11:30 WBC RBC Hgb Hct MCV MCH MCHC RDW RDW Differential Plt Count MPV Immature Gran % (Auto) Neut % (Auto) Lymph % (Auto) Centre % (Auto) Eos % (Auto) Baso % (Auto) Absolute Neuts (auto) Absolute Lymphs (auto) Total Counted Differential Comment Specimen Type ART Sample Site R Radial pH 7.39 Bicarbonate Actual 34.9 H POC Total CO2 37 Base Excess 10 H O2 Saturation 99 O2 % 35 ABG pCO2 57.4 H ABG pO2 132 H Salo Test POS Respiration Rate 12 O2 Delivery Device Bi / C PAP EPAP 10 IPAP 16 Blood Gas Notified Whom ICU Blood Gas Notified Time 828 Sodium 142 Potassium 3.1 L Chloride 101 Carbon Dioxide 35.0 H Anion Gap 6 BUN 7 Creatinine 0.64 Estim Creat Clear Calc 133.95 Est GFR (MDRD) Af Amer 130 Est GFR (MDRD) Non-Af 107 BUN/Creatinine Ratio 10.9 Glucose 92 Calcium 8.1 L Magnesium 2.0 Troponin I Triglycerides 161 Cholesterol 129 LDL Cholesterol 88 VLDL Cholesterol 32 HDL Cholesterol 9 L TSH 2.40 Free T4 1.14 03/12/18 03/12/18 03/12/18 11:30 14:30 14:30 WBC 13.2 H RBC 3.54 L Hgb 10.2 L Hct 32.7 L MCV 92.4 MCH 28.8 MCHC 31.2 L RDW 15.0 H RDW Differential 51.2 H Plt Count 309 MPV 9.2 Immature Gran % (Auto) 0.300 Neut % (Auto) 73.0 H Lymph % (Auto) 16.2 L Centre % (Auto) 9.0 Eos % (Auto) 1.2 Baso % (Auto) 0.3 Absolute Neuts (auto) 9.7 H Absolute Lymphs (auto) 2.14 Total Counted Not Reportable Differential Comment Specimen Type Sample Site pH Bicarbonate Actual POC Total CO2 Base Excess O2 Saturation O2 % ABG pCO2 ABG pO2 Salo Test Respiration Rate O2 Delivery Device EPAP IPAP Blood Gas Notified Whom Blood Gas Notified Time Sodium Potassium Chloride Carbon Dioxide Anion Gap BUN Creatinine Estim Creat Clear Calc Est GFR (MDRD) Af Amer Est GFR (MDRD) Non-Af BUN/Creatinine Ratio Glucose Calcium Magnesium Troponin I 0.021 0.018 Triglycerides Cholesterol LDL Cholesterol VLDL Cholesterol HDL Cholesterol TSH Free T4 03/12/18 03/12/18 03/12/18 14:30 17:20 17:20 WBC RBC Hgb Hct MCV MCH MCHC RDW RDW Differential Plt Count MPV Immature Gran % (Auto) Neut % (Auto) Lymph % (Auto) Centre % (Auto) Eos % (Auto) Baso % (Auto) Absolute Neuts (auto) Absolute Lymphs (auto) Total Counted Differential Comment Specimen Type Sample Site pH Bicarbonate Actual POC Total CO2 Base Excess O2 Saturation O2 % ABG pCO2 ABG pO2 Salo Test Respiration Rate O2 Delivery Device EPAP IPAP Blood Gas Notified Whom Blood Gas Notified Time Sodium Cancelled 138 Potassium Cancelled 3.4 L Chloride Cancelled 92 L Carbon Dioxide Cancelled 40.0 H Anion Gap Cancelled 6 BUN Cancelled 7 Creatinine Cancelled 0.64 Estim Creat Clear Calc Cancelled 133.95 Est GFR (MDRD) Af Amer Cancelled 130 Est GFR (MDRD) Non-Af Cancelled 108 BUN/Creatinine Ratio Cancelled 10.9 Glucose Cancelled 86 Calcium Cancelled 8.3 L Magnesium Troponin I < 0.015 Triglycerides Cholesterol LDL Cholesterol VLDL Cholesterol HDL Cholesterol TSH Free T4 03/13/18 03/13/18 00:45 05:30 WBC RBC Hgb Hct MCV MCH MCHC RDW RDW Differential Plt Count MPV Immature Gran % (Auto) Neut % (Auto) Lymph % (Auto) Centre % (Auto) Eos % (Auto) Baso % (Auto) Absolute Neuts (auto) Absolute Lymphs (auto) Total Counted Differential Comment Specimen Type Sample Site pH Bicarbonate Actual POC Total CO2 Base Excess O2 Saturation O2 % ABG pCO2 ABG pO2 Salo Test Respiration Rate O2 Delivery Device EPAP IPAP Blood Gas Notified Whom Blood Gas Notified Time Sodium 138 Potassium 3.4 L 4.2 Chloride 91 L Carbon Dioxide 41.0 H Anion Gap 6 BUN 10 Creatinine 0.66 Estim Creat Clear Calc 122.71 Est GFR (MDRD) Af Amer 125 Est GFR (MDRD) Non-Af 103 BUN/Creatinine Ratio 15.1 Glucose 85 Calcium 8.6 Magnesium Troponin I Triglycerides Cholesterol LDL Cholesterol VLDL Cholesterol HDL Cholesterol TSH Free T4 Microbiology 03/11/18 12:50 Blood Culture (Wb) - Anticubital Left Blood Culture - Preliminary 03/11/18 12:30 Urine, Catheterized Urine Culture - Final Culture exhibits no growth. 03/12/18 08:26 Mucosa - Nasopharyngeal Respiratory Panel (PCR) - Final Clinical Impression(s) from Imaging Studies Chest X-Ray 03/11/18 12:[address] 03/11/18 15:48 IMPRESSION: There is no focal consolidation. There is no pleural effusion. The appearance on chest radiograph is due to decreased lung volume on the left side compared to the right secondary to small size of the left chest cavity. This is from severe dextroscoliosis of the thoracic spine and abnormal shape of the left ribs. Electronically Signed: Shell Ochoa MD at 20:01 EDT Tel Direct: [phone], Service support , KUB X-Ray 03/11/18 16:11 IMPRESSION: No acute abnormalities are seen in the abdomen or pelvis. Electronically Signed: Shell Ochoa MD at 20:07 EDT Tel Direct: [phone], Service support , Chest X-Ray 03/11/18 21:30 IMPRESSION: There are no acute abnormalities. There is no evidence of pneumothorax on the right side. Electronically Signed: Shell Ochoa MD at 22:12 EDT Tel Direct: [phone], Service support , Chest X-Ray 03/13/18 17:35 IMPRESSION: No acute cardiopulmonary disease. There is no other interval change. Electronically Signed: Tacos AnjuDO at 18:14 EDT Tel [phone], Service support , Medical Necessity - Tobacco Use Smoking Status: Never smoker Tobacco Use: Non-smoker Assessment/Plan All Active Problems (Last Updated 03/11/18 @ 14:54 by Cecil Butts DO) Wound, open, foot (Resolved) Acute respiratory failure with hypoxia (Acute) Sepsis (Acute) Gram-negative pneumonia (Acute) RECOMMENDATIONS: 1. Okay from my perspective to discontinue antibiotics at this time. 2. Continue nocturnal PAP therapy with sleeping. Follow-up with Dr. Mack as an outpatient. 3. Encourage incentive spirometer use. 4. Recommend evaluation by speech therapy for potential aspiration versus vocal cord dysfunction. Can also consider ENT referral for VLS following discharge. IMPRESSIONS: 1. Acute hypoxemic respiratory failure The exact precipitating etiology is a bit unclear. The CT scan did not reveal a discernible infectious process. Alternative considerations include VQ mismatch from atelectasis versus tracheal bronchitis versus heart failure with fluid overload state. Regardless, the patient has responded to noninvasive positive pressure ventilation and is currently maintaining appropriate oxygen saturations on room air. Empiric antibiotics can be discontinued from my perspective, as no infectious precipitant has been identified. 2. Questionable CHF Echocardiogram revealed normal systolic and diastolic dysfunction. 3. History of obstructive sleep apnea The patient does have a reported history of obstructive sleep apnea of unknown severity. She is reportedly compliant with the use of nocturnal CPAP therapy. She is currently scheduled to follow-up with Dr. Mack. In the interim, recommend continuing nocturnal PAP therapy with sleeping. 4. Anxiety/depression/GERD/constipation/baseline spina bifida/scoliosis Complicates care, management, recovery and prognosis. Likely okay to continue home medications. This note was generated with The [employer] software. It may contain incorrect words, spelling, and punctuation that were not noted in checking the note before signing. Code Visit Inpatient E&M: 62971 Subs Hosp L2
--- NOTE | 2018-03-14 07:21 | PN_ITS ---
Patient Problems: Active and Suspected Problems (Last Updated 03/11/18 @ 14:54 by Cecil Butts DO) Acute respiratory failure with hypoxia (Acute) Sepsis (Acute) Gram-negative pneumonia (Acute) Subjective: The patient was seen and examined at the bedside this morning. Events from the last 24 hours have been reviewed. The patient is currently afebrile, hemodynamically stable and maintaining appropriate oxygen saturations on BiPAP. Last evening the patient was noted to have an episode of shortness of breath with possible anxiety contributing. She was placed back on BiPAP. This morning, the patient reports feeling well. She denies any resting shortness of breath. She does report that she has been experiencing intermittent episodes of acute onset dyspnea with an associated tightness and/or choking sensation in her throat. These episodes appear to be unrelated to food or liquid ingestion. She does report having a great deal of anxiety. Objective: The patient's most recent lab work, culture data and imaging studies have all been personally reviewed. Infectious workup has been negative to date. Surface echocardiogram revealed normal LV size and function with an ejection fraction of 60%. Pulmonary artery systolic pressure was estimated to be 37 mmHg. - Physical Exam General: Alert, Cooperative, No apparent distress HEENT: Atraumatic, PERRLA, Normocephalic Oral: No Gingival or Mucosal Lesions/ Ulcerations Neck: Supple, No Nodes, Trachea Midline Lungs: No rhonchi, No wheeze, No rales, Diminished Cardiovascular: Regular rate, Regular Rhythm, Normal S1, Normal S2, No murmurs Abdomen: Bowel Sounds Present, Soft, Non Tender Extremities: No clubbing, No cyanosis, No edema Skin: No breakdown Musculoskeletal: - - No significant change from previous. Lymphatic: No Cervical, Supraclavicular, or Inguinal Adenopathy Neurological: Neuro grossly intact Psych/Mental Status: Flat Affect Vital Signs Temp Pulse Resp BP Pulse Ox 98.0 F 92 17 134/93 H 100 03/14/18 06:15 03/14/18 06:15 03/14/18 06:15 03/14/18 06:15 03/14/18 06:15 Oxygen Flow Rate (L/min) 2 Oxygen Delivery Method Bi-pap Weight: 156 lb 15.506 oz Body Mass Index (BMI) 36.7 Intake and Output for Last 24 Hours 03/12/18 03/13/18 03/14/18 23:59 23:59 23:59 Intake Total 597 / 597 2907 / 2907 Output Total 3725 / 3725 1700 / 1700 100 / 100 Balance -3128 / -3128 1207 / 1207 -100 / -100 Microbiology Past 72 Hours 03/11/18 12:50 Blood Culture - Preliminary Blood Culture (Wb) - Anticubital Left 03/11/18 12:30 Urine Culture - Final Urine, Catheterized Culture exhibits no growth. 03/12/18 08:26 Respiratory Panel (PCR) - Final Mucosa - Nasopharyngeal 03/11/18 12:20 Legionella Antigen - Final Urine Catheter - Catheter 03/11/18 12:20 Streptococcus pneumoniae Antigen (M - Final Urine Catheter - Catheter 03/11/18 12:40 Influenza Types A,B Direct FA ([facility]) - Final Mucosa - Nose Labs (Last 48 Hours) 03/12/18 03/12/18 03/12/18 08:34 11:30 11:30 WBC RBC Hgb Hct MCV MCH MCHC RDW RDW Differential Plt Count MPV Immature Gran % (Auto) Neut % (Auto) Lymph % (Auto) [place] % (Auto) Eos % (Auto) Baso % (Auto) Absolute Neuts (auto) Absolute Lymphs (auto) Total Counted Differential Comment Specimen Type ART Sample Site R Radial pH 7.39 Bicarbonate Actual 34.9 H POC Total CO2 37 Base Excess 10 H O2 Saturation 99 O2 % 35 ABG pCO2 57.4 H ABG pO2 132 H Salo Test POS Respiration Rate 12 O2 Delivery Device Bi / C PAP EPAP 10 IPAP 16 Blood Gas Notified Whom ICU Blood Gas Notified Time 828 Sodium 142 Potassium 3.1 L Chloride 101 Carbon Dioxide 35.0 H Anion Gap 6 BUN 7 Creatinine 0.64 Estim Creat Clear Calc 133.95 Est GFR (MDRD) Af Amer 130 Est GFR (MDRD) Non-Af 107 BUN/Creatinine Ratio 10.9 Glucose 92 Calcium 8.1 L Magnesium 2.0 Troponin I Triglycerides 161 Cholesterol 129 LDL Cholesterol 88 VLDL Cholesterol 32 HDL Cholesterol 9 L TSH 2.40 Free T4 1.14 03/12/18 03/12/18 03/12/18 11:30 14:30 14:30 WBC 13.2 H RBC 3.54 L Hgb 10.2 L Hct 32.7 L MCV 92.4 MCH 28.8 MCHC 31.2 L RDW 15.0 H RDW Differential 51.2 H Plt Count 309 MPV 9.2 Immature Gran % (Auto) 0.300 Neut % (Auto) 73.0 H Lymph % (Auto) 16.2 L [place] % (Auto) 9.0 Eos % (Auto) 1.2 Baso % (Auto) 0.3 Absolute Neuts (auto) 9.7 H Absolute Lymphs (auto) 2.14 Total Counted Not Reportable Differential Comment Specimen Type Sample Site pH Bicarbonate Actual POC Total CO2 Base Excess O2 Saturation O2 % ABG pCO2 ABG pO2 Salo Test Respiration Rate O2 Delivery Device EPAP IPAP Blood Gas Notified Whom Blood Gas Notified Time Sodium Potassium Chloride Carbon Dioxide Anion Gap BUN Creatinine Estim Creat Clear Calc Est GFR (MDRD) Af Amer Est GFR (MDRD) Non-Af BUN/Creatinine Ratio Glucose Calcium Magnesium Troponin I 0.021 0.018 Triglycerides Cholesterol LDL Cholesterol VLDL Cholesterol HDL Cholesterol TSH Free T4 03/12/18 03/12/18 03/12/18 14:30 17:20 17:20 WBC RBC Hgb Hct MCV MCH MCHC RDW RDW Differential Plt Count MPV Immature Gran % (Auto) Neut % (Auto) Lymph % (Auto) [place] % (Auto) Eos % (Auto) Baso % (Auto) Absolute Neuts (auto) Absolute Lymphs (auto) Total Counted Differential Comment Specimen Type Sample Site pH Bicarbonate Actual POC Total CO2 Base Excess O2 Saturation O2 % ABG pCO2 ABG pO2 Salo Test Respiration Rate O2 Delivery Device EPAP IPAP Blood Gas Notified Whom Blood Gas Notified Time Sodium Cancelled 138 Potassium Cancelled 3.4 L Chloride Cancelled 92 L Carbon Dioxide Cancelled 40.0 H Anion Gap Cancelled 6 BUN Cancelled 7 Creatinine Cancelled 0.64 Estim Creat Clear Calc Cancelled 133.95 Est GFR (MDRD) Af Amer Cancelled 130 Est GFR (MDRD) Non-Af Cancelled 108 BUN/Creatinine Ratio Cancelled 10.9 Glucose Cancelled 86 Calcium Cancelled 8.3 L Magnesium Troponin I < 0.015 Triglycerides Cholesterol LDL Cholesterol VLDL Cholesterol HDL Cholesterol TSH Free T4 03/13/18 03/13/18 00:45 05:30 WBC RBC Hgb Hct MCV MCH MCHC RDW RDW Differential Plt Count MPV Immature Gran % (Auto) Neut % (Auto) Lymph % (Auto) [place] % (Auto) Eos % (Auto) Baso % (Auto) Absolute Neuts (auto) Absolute Lymphs (auto) Total Counted Differential Comment Specimen Type Sample Site pH Bicarbonate Actual POC Total CO2 Base Excess O2 Saturation O2 % ABG pCO2 ABG pO2 Salo Test Respiration Rate O2 Delivery Device EPAP IPAP Blood Gas Notified Whom Blood Gas Notified Time Sodium 138 Potassium 3.4 L 4.2 Chloride 91 L Carbon Dioxide 41.0 H Anion Gap 6 BUN 10 Creatinine 0.66 Estim Creat Clear Calc 122.71 Est GFR (MDRD) Af Amer 125 Est GFR (MDRD) Non-Af 103 BUN/Creatinine Ratio 15.1 Glucose 85 Calcium 8.6 Magnesium Troponin I Triglycerides Cholesterol LDL Cholesterol VLDL Cholesterol HDL Cholesterol TSH Free T4 Microbiology 03/11/18 12:50 Blood Culture (Wb) - Anticubital Left Blood Culture - Preliminary 03/11/18 12:30 Urine, Catheterized Urine Culture - Final Culture exhibits no growth. 03/12/18 08:26 Mucosa - Nasopharyngeal Respiratory Panel (PCR) - Final Clinical Impression(s) from Imaging Studies Chest X-Ray 03/11/18 12:[address] 03/11/18 15:48 IMPRESSION: There is no focal consolidation. There is no pleural effusion. The appearance on chest radiograph is due to decreased lung volume on the left side compared to the right secondary to small size of the left chest cavity. This is from severe dextroscoliosis of the thoracic spine and abnormal shape of the left ribs. Electronically Signed: Shell Ochoa MD at 20:01 EDT Tel Direct: [phone], Service support , KUB X-Ray 03/11/18 16:11 IMPRESSION: No acute abnormalities are seen in the abdomen or pelvis. Electronically Signed: Shell Ochoa MD at 20:07 EDT Tel Direct: [phone], Service support , Chest X-Ray 03/11/18 21:30 IMPRESSION: There are no acute abnormalities. There is no evidence of pneumothorax on the right side. Electronically Signed: Shell Ochoa MD at 22:12 EDT Tel Direct: [phone], Service support , Chest X-Ray 03/13/18 17:35 IMPRESSION: No acute cardiopulmonary disease. There is no other interval change. Electronically Signed: Taocs AnjuDO at 18:14 EDT Tel [phone], Service support , Medical Necessity - Tobacco Use Smoking Status: Never smoker Tobacco Use: Non-smoker Assessment/Plan All Active Problems (Last Updated 03/11/18 @ 14:54 by Cecil Butts DO) Wound, open, foot (Resolved) Acute respiratory failure with hypoxia (Acute) Sepsis (Acute) Gram-negative pneumonia (Acute) RECOMMENDATIONS: 1. Okay from my perspective to discontinue antibiotics at this time. 2. Continue nocturnal PAP therapy with sleeping. Follow-up with Dr. Mack as an outpatient. 3. Encourage incentive spirometer use. 4. Recommend evaluation by speech therapy for potential aspiration versus vocal cord dysfunction. Can also consider ENT referral for VLS following discharge. IMPRESSIONS: 1. Acute hypoxemic respiratory failure The exact precipitating etiology is a bit unclear. The CT scan did not reveal a discernible infectious process. Alternative considerations include VQ mismatch from atelectasis versus tracheal bronchitis versus heart failure with fluid overload state. Regardless, the patient has responded to noninvasive positive pressure ventilation and is currently maintaining appropriate oxygen saturations on room air. Empiric antibiotics can be discontinued from my perspective, as no infectious precipitant has been identified. 2. Questionable CHF Echocardiogram revealed normal systolic and diastolic dysfunction. 3. History of obstructive sleep apnea The patient does have a reported history of obstructive sleep apnea of unknown severity. She is reportedly compliant with the use of nocturnal CPAP therapy. She is currently scheduled to follow-up with Dr. Mack. In the interim, recommend continuing nocturnal PAP therapy with sleeping. 4. Anxiety/depression/GERD/constipation/baseline spina bifida/scoliosis Complicates care, management, recovery and prognosis. Likely okay to continue home medications. This note was generated with Team [employer] software. It may contain incorrect words, spelling, and punctuation that were not noted in checking the note before signing. Code Visit Inpatient E&M: 43608 Subs Hosp L2
[2018-03-14] MEDS: Aspirin 81 MG TAB.CHEW PO (09:04)
[2018-03-14] MEDS: guaiFENesin 1,200 MG Tablet 1200 MG PO (09:04)
[2018-03-14] MEDS: Multivitamins,Therapeutic Tablet 1 TABLET PO (09:04)
[2018-03-14] MEDS: Enoxaparin 40 MG/0.4 ML Syringe SC (09:04)
[2018-03-14] MEDS: Calcium Carb/Vitamin D 1 TABLET Tablet PO (09:04)
[2018-03-14] MEDS: Ascorbic Acid 500 MG Tablet 1000 MG PO (09:04)
[2018-03-14] MEDS: Tolterodine Tartrate 4 MG CAP.SA PO (09:04)
--- NOTE | 2018-03-14 10:37 | PCM.DC ---
- Discharge Diagnoses Current Active Problems: Current Active and Chronic Problems (Last Updated 03/11/18 @ 14:54 by Cecil Butts DO) (1) Acute Hypoxic Respiratory Failure secondary to Pneumonia (CAP) RULED OUT and felt #2 More Likely Suspected Volume Overload secondary to Recent OSH Resuscitation w/ Sepsis/UTI, CHF Unclear Type RULED OUT (2) Suspected Volume Overload, Decompensated CHF RULED OUT (3) Suspected Vocal Cord Dysfunction/Spasms w/ Associated Anxiety and Subjective Dyspnea onset (3) Prior to Admission Recent UTI, Unclear Organism (4) Spina Bifida w/ Severe Scoliosis (5) Chronic Constipation (6) Anxiety and Depression (7) GERD (8) DARIO You will use the following diet at home:: Cardiac - Cardiac diet, need to have appropriate HOB, small bites, encourage laryngeal elevation as able. Amenable to regular consistency for both food and liquids. Your food should be the consistency of: Regular Your liquids should be the consistency of: Regular/Thin Discharge Activity: - - Encouraged continued home therapies including speech, PT and OT. Encourage every 2 hour re-positioning and off loading. Call your doctor if you observe: Fever of 101 or Higher, Inability to urinate - Decreased urine output., Inability to have a bowel movement, Shortness of breath, Dizziness, Chest pain, Uncontrolled pain Instructions: Vocal Cord Dysfunction (VCD), Your Body's Response to Anxiety Additional Instructions: During the admission you were evaluated for possible pneumonia as well as heart failure. Work-up for these processes was unremarkable and it was felt likely the presentation was associated w/ recent aggressive fluid resuscitation with recent UTI and sepsis presentation at other facility. Additionally, given history and events during admission, suspect ongoing vocal cord dysfunction with can cause the sensation of dyspnea and anxiety. Please continue with outpatient Speech evaluation for training and therapies in addition to planned ENT follow-up. Please follow-up with Dr. Mack also to re-assess home CPAP settings. Low dose ativan small amount has been given to assist w/ anxiety with onset of vocal cord dysfunction if needed. Allergies/Adverse Reactions: Allergies amoxicillin [From Augmentin] Allergy (Verified 03/11/18 12:10) Diarrhea azithromycin [From Zithromax Z-Turner] Allergy (Verified 03/11/18 12:10) Diarrhea ciprofloxacin [From Cipro] Allergy (Verified 03/11/18 12:10) Pain in joints clavulanic acid [From Augmentin] Allergy (Verified 03/11/18 12:10) Diarrhea Medications to take at Discharge Multivitamins,Therapeutic [Multivitamin] 1 tablet PO QHS 04/24/13 Oxybutynin Chloride [Ditropan Xl] 15 mg PO QHS 04/24/13 Paroxetine HCl [Paxil] 40 mg PO QHS 04/24/13 Calcium Carbonate/Vitamin D3 [Calcium 500-Vit D3 200 Tablet] 1 each PO QHS 04/14/16 Ascorbic Acid [Vitamin C] 1,000 mg PO DAILY 03/11/18 Bacillus Coagulans [Probiotic] 1 each PO QHS 03/11/18 Docusate Sodium [Colace] 100 mg PO QHS 03/11/18 MedroxyPROGESTERone [Depo-Provera] 150 mg IM .[id number] 03/11/18 Omeprazole [Prilosec] 20 mg PO QHS 03/11/18 Polyethylene Glycol 3350 [Miralax] 17 gm PO DAILY PRN 03/11/18 Albuterol IH (ProAir) [Proair Hfa] 1 - 2 puff INHALATION Q4H PRN PRN #1 inhaler 03/14/18 Aspirin [Aspirin, Baby] 81 mg PO DAILY@0800 tab.chew 03/14/18 Lorazepam [Ativan] 0.5 mg PO BID PRN PRN 5 Days #10 tab 03/14/18 The following prescriptions were given: Albuterol IH (ProAir) [Proair Hfa] 1 - 2 puff INHALATION Q4H PRN PRN #1 inhaler PRN Reason: dyspnea, wheezing Lorazepam [Ativan] 0.5 mg PO BID PRN PRN 5 Days #10 tab PRN Reason: anxiety w/ vocal cord dysfunct Primary Care Physician: Delores Alford MD [Primary Care Provider] - Please follow up with your Primary Care Physician in: Follow-up within 3-5 days. Test Results: Test results from this visit will be discussed in further detail at your follow-up appointment, if applicable. Please Follow Up With: Cecil Rogel MD When: Follow-up within 1 week to review admit, discuss vocal cord dysfunction. Please Follow Up With: Parviz Mack MD When: Follow-up within 1 week to review CPAP settings, reassess. Proposed Discharge Date: 03/14/18
--- NOTE | 2018-03-14 10:41 | DCINST_ITS ---
- Discharge Diagnoses Current Active Problems: Current Active and Chronic Problems (Last Updated 03/11/18 @ 14:54 by Cecil Butts DO) (1) Acute Hypoxic Respiratory Failure secondary to Pneumonia (CAP) RULED OUT and felt #2 More Likely Suspected Volume Overload secondary to Recent OSH Resuscitation w/ Sepsis/UTI, CHF Unclear Type RULED OUT (2) Suspected Volume Overload, Decompensated CHF RULED OUT (3) Suspected Vocal Cord Dysfunction/Spasms w/ Associated Anxiety and Subjective Dyspnea onset (3) Prior to Admission Recent UTI, Unclear Organism (4) Spina Bifida w/ Severe Scoliosis (5) Chronic Constipation (6) Anxiety and Depression (7) GERD (8) DARIO You will use the following diet at home:: Cardiac - Cardiac diet, need to have appropriate HOB, small bites, encourage laryngeal elevation as able. Amenable to regular consistency for both food and liquids. Your food should be the consistency of: Regular Your liquids should be the consistency of: Regular/Thin Discharge Activity: - - Encouraged continued home therapies including speech, PT and OT. Encourage every 2 hour re-positioning and off loading. Call your doctor if you observe: Fever of 101 or Higher, Inability to urinate - Decreased urine output., Inability to have a bowel movement, Shortness of breath, Dizziness, Chest pain, Uncontrolled pain Instructions: Vocal Cord Dysfunction (VCD), Your Body's Response to Anxiety Additional Instructions: During the admission you were evaluated for possible pneumonia as well as heart failure. Work-up for these processes was unremarkable and it was felt likely the presentation was associated w/ recent aggressive fluid resuscitation with recent UTI and sepsis presentation at other facility. Additionally, given history and events during admission, suspect ongoing vocal cord dysfunction with can cause the sensation of dyspnea and anxiety. Please continue with outpatient Speech evaluation for training and therapies in addition to planned ENT follow-up. Please follow-up with Dr. Mack also to re- assess home CPAP settings. Low dose ativan small amount has been given to assist w/ anxiety with onset of vocal cord dysfunction if needed. Allergies/Adverse Reactions: Allergies amoxicillin [From Augmentin] Allergy (Verified 03/11/18 12:10) Diarrhea azithromycin [From Zithromax Z-Turner] Allergy (Verified 03/11/18 12:10) Diarrhea ciprofloxacin [From Cipro] Allergy (Verified 03/11/18 12:10) Pain in joints clavulanic acid [From Augmentin] Allergy (Verified 03/11/18 12:10) Diarrhea Medications to take at Discharge Multivitamins,Therapeutic [Multivitamin] 1 tablet PO QHS 04/24/13 Oxybutynin Chloride [Ditropan Xl] 15 mg PO QHS 04/24/13 Paroxetine HCl [Paxil] 40 mg PO QHS 04/24/13 Calcium Carbonate/Vitamin D3 [Calcium 500-Vit D3 200 Tablet] 1 each PO QHS 04/14/16 Ascorbic Acid [Vitamin C] 1,000 mg PO DAILY 03/11/18 Bacillus Coagulans [Probiotic] 1 each PO QHS 03/11/18 Docusate Sodium [Colace] 100 mg PO QHS 03/11/18 MedroxyPROGESTERone [Depo-Provera] 150 mg IM .[id number] 03/11/18 Omeprazole [Prilosec] 20 mg PO QHS 03/11/18 Polyethylene Glycol 3350 [Miralax] 17 gm PO DAILY PRN 03/11/18 Albuterol IH (ProAir) [Proair Hfa] 1 - 2 puff INHALATION Q4H PRN PRN #1 inhaler 03/14/18 Aspirin [Aspirin, Baby] 81 mg PO DAILY@0800 tab.chew 03/14/18 Lorazepam [Ativan] 0.5 mg PO BID PRN PRN 5 Days #10 tab 03/14/18 The following prescriptions were given: Albuterol IH (ProAir) [Proair Hfa] 1 - 2 puff INHALATION Q4H PRN PRN #1 inhaler PRN Reason: dyspnea, wheezing Lorazepam [Ativan] 0.5 mg PO BID PRN PRN 5 Days #10 tab PRN Reason: anxiety w/ vocal cord dysfunct Primary Care Physician: Delores Alford MD [Primary Care Provider] - Please follow up with your Primary Care Physician in: Follow-up within 3-5 days. Test Results: Test results from this visit will be discussed in further detail at your follow- up appointment, if applicable. Please Follow Up With: Cecil Rogel MD When: Follow-up within 1 week to review admit, discuss vocal cord dysfunction. Please Follow Up With: Parviz Mack MD When: Follow-up within 1 week to review CPAP settings, reassess. Proposed Discharge Date: 03/14/18
--- NOTE | 2018-03-14 10:51 | DS.PCM_ITS ---
Discharge Date and Diagnosis - Problem List Patient Problems: Active and Suspected Problems (Last Updated 03/11/18 @ 14:54 by Cecil Butts DO) Acute respiratory failure with hypoxia (Acute) Sepsis (Acute) Gram-negative pneumonia (Acute) Date of Admission: 03/11/18 Date of Discharge: 03/14/18 - Primary Discharge Diagnosis Active and Suspected Problems (Last Updated 03/11/18 @ 14:54 by Cecil Butts DO) (1) Acute Hypoxic Respiratory Failure secondary to Volume Overload secondary to Recent OSH Resuscitation w/ Sepsis/UTI, RULED OUT CHF and Pneumonia (2) DARIO with need for CPAP setting re-evaluation (3) Suspected Vocal Cord Dysfunction/Spasms w/ Associated Anxiety and Subjective Dyspnea onset (4) Prior to Admission Recent UTI, Unclear Organism (5) Spina Bifida w/ Severe Scoliosis (6) Chronic Constipation (7) Anxiety and Depression with noted increased episodes anxiety with suspected vocal cord dysfunction/spasms #3 (8) GERD - Secondary Discharge Diagnosis Chronic Problems (Last Updated 03/11/18 @ 14:54 by Cecil Butts DO) Edema of right lower extremity (Chronic) Spina bifida (Chronic) Hospital Course and Treatment Dr. Fuentes Pulmonary Operations: None Procedures: EKG, - - BIPAP placement, PICC Line placement. Summary of Care Provided: The patient is a 42 y/o F w/ PMHx: Spina Bifida w/ severe scoliosis, GERD, Anxiety and Depression, Obesity, Recent OSH [facility] admission for constipation, UTI w/ sepsis and noted tachypnea and hypoxia at that time discharged on 03/10/18 with presentation to the [facility] ED on 03/11/18 with ongoing dyspnea, progressively worsening and home oxygenation 70%. CXR in the ED w/ small left-sided pleural effusion versus pleural thickening, bilateral increased reticular markings possibly consistent with mild pulmonary vascular congestion versus interstitial pneumonitis, CT chest with no focal consolidation, no pleural effusion, decreased lung volume left side compared to right secondary to small size of the left chest, severe dextroscoliosis of the thoracic spine and abnormal shape of the left ribs, KUB unremarkable. Admission CBC w/ WBC 13.5 with L shift, LA normal, worsened status with increased RR, accessory muscle usage w/ transition to BIPAP. Transferred to the ICU, maintained on BIPAP initially with eventual wean to NC, ATC duonebs, PRN albuterol, maintained on IV Rocephin and Azithromycin, PICC Placement secondary to access difficulties, continue HOB, IS parameters w/ requested sputum cultures, negative respiratory viral panel, negative urine antigens. Lasix as noted #2 discontinued. ECHO obtained w/ normal LV size, normal LV systolic function, EF 60%, mild TBI, PAS P 37 mmHg.. Suspected presentation likely secondary to aggressive hydration w/ sepsis w/ UTI at OSH as all findings not consistent with CHF or pneumonia and abx stopped on 03/14/18 per discussion with Pulmonary/ICU with Bld Cx and UCx without findings, negative urine antigens and negative respiratory panel. 03/13/18 evening did have similar presentation to prior and family notes this has been happening outpatient independent of food w/ worsened appearance dyspnea, although appeared more consistent with anxiety, BIPAP replaced, repeat CXR without acute findings, remained afebrile, discussed w/ pulmonary and may be vocal cord dysfunction as an etiology for this presentation. Speech evaluation performed, agreed no evidence of aspiration, encouraged small bites in addition to agreement with outpatient ENT evaluation as well as continued speech training for vocal cord dysfunction. Patient w/ history of DARIO, continued q HS BIPAP per Pulmonary recommendation w/ discharge recommendation for follow-up with Dr. Mack for re-assessment of her CPAP settings. Patient discharged to home in stable improved condition with ruled out pneumonia and CHF, felt secondary to volume overload and suspected episodes of vocal cord dysfunction/spasms w/ planned follow-up with PCP, ENT. Discharge Activity: - - Encouraged continued home therapies including speech, PT and OT. Encourage every 2 hour re-positioning and off loading. Call your doctor if you observe: Fever of 101 or Higher, Inability to urinate - Decreased urine output., Inability to have a bowel movement, Shortness of breath, Dizziness, Chest pain, Uncontrolled pain Home Medications: Medications to take at Discharge Multivitamins,Therapeutic [Multivitamin] 1 tablet PO QHS 04/24/13 Oxybutynin Chloride [Ditropan Xl] 15 mg PO QHS 04/24/13 Paroxetine HCl [Paxil] 40 mg PO QHS 04/24/13 Calcium Carbonate/Vitamin D3 [Calcium 500-Vit D3 200 Tablet] 1 each PO QHS 04/14/16 Ascorbic Acid [Vitamin C] 1,000 mg PO DAILY 03/11/18 Bacillus Coagulans [Probiotic] 1 each PO QHS 03/11/18 Docusate Sodium [Colace] 100 mg PO QHS 03/11/18 MedroxyPROGESTERone [Depo-Provera] 150 mg IM .[id number] 03/11/18 Omeprazole [Prilosec] 20 mg PO QHS 03/11/18 Polyethylene Glycol 3350 [Miralax] 17 gm PO DAILY PRN 03/11/18 Albuterol IH (ProAir) [Proair Hfa] 1 - 2 puff INHALATION Q4H PRN PRN #1 inhaler 03/14/18 Aspirin [Aspirin, Baby] 81 mg PO DAILY@0800 tab.chew 03/14/18 Lorazepam [Ativan] 0.5 mg PO BID PRN PRN 5 Days #10 tab 03/14/18 Following Prescrptions Were Given to Patient: Albuterol IH (ProAir) [Proair Hfa] 1 - 2 puff INHALATION Q4H PRN PRN #1 inhaler PRN Reason: dyspnea, wheezing Lorazepam [Ativan] 0.5 mg PO BID PRN PRN 5 Days #10 tab PRN Reason: anxiety w/ vocal cord dysfunct Primary Care Physician: Delores Alford MD [Primary Care Provider] - Please follow up with your Primary Care Physician in: Follow-up within 3-5 days. Please Follow Up With: Cecil Rogel MD When: Follow-up within 1 week to review admit, discuss vocal cord dysfunction. Please Follow Up With: Parviz Mack MD When: Follow-up within 1 week to review CPAP settings, reassess. Patient Instructions: Vocal Cord Dysfunction (VCD), Your Body's Response to Anxiety Disposition: Home with Home Health Minutes spent on discharge:: 35 Patient Condition:: Fair Medical Necessity - Tobacco Use Smoking Status: Never smoker Tobacco Use: Non-smoker Meaningful Use Info Meaningful Use Diagnoses (Choose all that apply): None applicable Code Visit Inpatient E&M: 59481 Disch Hosp
--- NOTE | 2018-03-14 11:19 | PHA.DC.MC ---
Pharmacy Service has performed discharge medication reconciliation and counseling for this patient. The patient's discharge medication list was reviewed for discrepancies and discrepancies were resolved. The patient was counseled on the following discharge medications and changes in medications for homegoing were reviewed. PROAIR INHALER, LORAZEPAM The Reason for Use, instructions for use, and potential side effects were reviewed for all new medications. The patient's questions regarding all of their medications were answered. The patient was not able to adequately demonstrate understanding. Spoke with the patient's mother, who is the primary caregiver for the patient. The patient's mother demonstrated understanding of medications, answered all of her questions.
--- NOTE | 2018-03-14 11:34 | CASEMGMT ---
Addendum entered by Janee Farnsworth 03/14/18 12:58: This RN CM still awaiting call back from [facility] at this time. Call to [facility] and pt is not in their service area. Call to [facility] and they can take pt for PT/OT/ST at this time. Referral faxed at this time. Call to [facility] to cancel referral to them at this time, voice understanding. Pt's mother updated at this time, voices understanding. Ted MACHADO CM Original Note: Therapy recommending [facility] for PT/OT/ST at this time. This RN CM to room to speak with pt's mother regarding to same. Mother agrees to [facility] at this time and states no preference on company at this time. Call to Marycarmen at [facility] and she states that they are unable to take pt at this time. Call to [facility] and they do not have Speech therapy coverage in pt's area at this time. Call and referral to [facility] to see if they are able to take pt at this time and they will return call to this RN JUAN and notify. Ted MACHADO CM
--- NOTE | 2018-03-14 11:34 | CASEMGMT ---
Therapy recommending [facility] for PT/OT/ST at this time. This RN CM to room to speak with pt's mother regarding to same. Mother agrees to HH at this time and states no preference on company at this time. Call to Marycarmen at [facility] and she states that they are unable to take pt at this time. Call to [facility] and they do not have Speech therapy coverage in pt's area at this time. Call and referral to [facility] to see if they are able to take pt at this time and they will return call to this RN JUAN and notify. [facility] order placed for RN, PT/OT/ST and aide at this time. SStaten JEANNETTE CM
== END 2018-03-14 14:41 | disposition home health service (06) | DRG 189 ==
LOC: ED 14:13 → PCU 15:12 → ICU 20:11 → PCU 03-13 13:08
PROVIDERS: Emergency Provider Emergency Medicine; Visit Provider Family Medicine
DX: J96.01 Acute respiratory failure with hypoxia (principal); G82.20 Paraplegia, unspecified; G47.33 Obstructive sleep apnea (adult) (pediatric); K21.9 Gastro-esophageal reflux disease without esophagitis; F41.9 Anxiety disorder, unspecified; F32.9 Major depressive disorder, single episode, unspecified; K59.09 Other constipation; Q05.9 Spina bifida, unspecified; M41.9 Scoliosis, unspecified; E66.9 Obesity, unspecified; Z68.36 Body mass index [BMI] 36.0-36.9, adult; E87.70 Fluid overload, unspecified; J38.3 Other diseases of vocal cords
CPT/HCPCS: 36569; 36600; 71045; 71260; 74018; 80048; 80061; 81001; 82803; 83605; 83735; 83880; 84132; 84439; 84443; 84484; 85025; 87040; 87086; 87149; 87449; 87633; 87804; 93005; 93306; 94003; 94640; 94660; 94667; 94668; 97110; 97163; 97165; 97530; 99285; J7030; J7050; P9612; Q9957; Q9967; A4216; C1751; C8929; J0696; J1940

== ENCOUNTER → 2018-03-30 11:17 | Outpatient (CLI) | payer MEDICARE, MEDICAID, SELFPAY ==
--- NOTE | 2018-03-30 11:21 | CT_ITS ---
STUDY: CT ABDOMEN AND PELVIS WITHOUT CONTRAST REASON FOR EXAM: Female, 43 years old. History of kidney stones. RADIATION DOSAGE (If Supplied By Facility): CTDIvol = ( 15.11 ) mGy, DLP = ( 649.39 ) mGycm TECHNIQUE: Transaxial images were obtained from the dome of the diaphragm to the symphysis pubis without oral contrast, and without intravenous contrast. Sagittal and coronal images were reconstructed. Individualized dose optimization techniques were used for this CT. COMPARISON: None. FINDINGS: Minimal increased markings at the lung bases suggestive of atelectasis. The visualized portions of the heart are within normal limits. Normal liver. Normal gallbladder and extrahepatic biliary system. Normal spleen. There is diffuse atrophy of the pancreas. Normal bilateral adrenal glands. There is a 1 cm calculus at the right renal pelvis. There is also evidence of a 6.6 mm calculus in the lower pole calyx of the right kidney as well as a 2.1 mm conquest in the lower posterior aspect of the right kidney. No significant hydronephrosis is seen. Normal left kidney. There is a small hiatal hernia. A gastrostomy tube is seen. Normal small intestine. A large amount of fecal material is seen in the right hemicolon. There are surgical clips in the region of the appendix consistent with a prior appendectomy. Normal abdominal aorta. Normal inferior vena cava. Normal retroperitoneum. There is a 8mm by 8 mm calculus at the base of the bladder on the right side. Normal abdominal wall. There are diffuse degenerative changes of the visualized lumbar spine. Moderate degree of the levoscoliosis. Prior multilevel fusion of the lumbar spine. Screw fixation of both sacroiliac regions bilaterally. Deformity of both hip joints with evidence of synovial thickening worse on the right side. CT/Abdomen/Pelvis without Cont IMPRESSION: Right renal calculi. 1 cm calculus in the right renal pelvis. 8 mm calculus at the base of the bladder on the right side. Electronically Signed: Jared Burns MD at 12:28 EDT Tel [phone], Service support ,
== END ==
PROVIDERS: Referring Provider Urology; Visit Provider Urology
DX: N20.0 Calculus of kidney (principal); N31.9 Neuromuscular dysfunction of bladder, unspecified
CPT/HCPCS: 74176

== ENCOUNTER 2018-04-12 10:15 | Day surgery (SDC) | payer MEDICARE, MEDICAID, SELFPAY ==
[2018-04-12 11:04] LABS: Internal QC Validated? YES +Cl - CLEAR BKGD; Pregnancy, Urine Negative Negative
[2018-04-12 11:05] VITALS: BP 132/83; PULSE 84; RESP 18; TEMP 37.3; O2SAT 95; BMI 31.1
[2018-04-12] MEDS: Cefazolin 2 GM in 0.9% Normal Saline 100 ML IV (12:33)
--- NOTE | 2018-04-12 13:33 | DCINST_ITS ---
Discharge Diet: Light diet - advance as tolerated Discharge Activity: Return to Normal Activity Allergies/Adverse Reactions: Allergies amoxicillin [From Augmentin] Adverse Reaction (Verified 04/11/18 11:08) Diarrhea azithromycin [From Zithromax Z-Turner] Adverse Reaction (Verified 04/11/18 11:08) Diarrhea ciprofloxacin [From Cipro] Adverse Reaction (Verified 04/11/18 11:08) Pain in joints clavulanic acid [From Augmentin] Adverse Reaction (Verified 04/11/18 11:08) Diarrhea Medications to take at Discharge Multivitamins,Therapeutic [Multivitamin] 1 tablet PO QHS 04/24/13 Oxybutynin Chloride [Ditropan Xl] 15 mg PO QHS 04/24/13 Paroxetine HCl [Paxil] 40 mg PO QHS 04/24/13 Calcium Carbonate/Vitamin D3 [Calcium 500-Vit D3 200 Tablet] 1 each PO QHS 04/14/16 Ascorbic Acid [Vitamin C] 1,000 mg PO DAILY 03/11/18 Bacillus Coagulans [Probiotic] 1 each PO QHS 03/11/18 Docusate Sodium [Colace] 100 mg PO QHS 03/11/18 MedroxyPROGESTERone [Depo-Provera] 150 mg IM .[id number] 03/11/18 Omeprazole [Prilosec] 20 mg PO QHS 03/11/18 Polyethylene Glycol 3350 [Miralax] 17 gm PO DAILY PRN 03/11/18 Albuterol IH (ProAir) [Proair Hfa] 1 - 2 puff INHALATION Q4H PRN PRN #1 inhaler 03/14/18 Aspirin [Aspirin, Baby] 81 mg PO DAILY@0800 tab.chew 03/14/18 Metoprolol Tartrate [Lopressor (Beta Jackie)] 12.5 mg PO BID 04/11/18 Nitrofurantoin Monohyd/M-Cryst [Macrobid 100 mg Capsule] 100 mg PO BID #10 cap 04/12/18 The following prescriptions were given: Nitrofurantoin Monohyd/M-Cryst [Macrobid 100 mg Capsule] 100 mg PO BID #10 cap Primary Care Physician: Delores Alford MD [Primary Care Provider] - Test Results: Test results from this visit will be discussed in further detail at your follow- up appointment, if applicable. Please Follow Up With: Enzo Hernandez MD When: in 2 weeks, please call to make an appointment.
--- NOTE | 2018-04-12 13:34 | PCM.OPRPT ---
Report of Operation Date of Procedure: 04/12/18 Pre-Operative Diagnosis: Bladder stone and kidney stones Post-Operative Diagnosis: Large bladder stone, large kidney stone, right UPJ obstruction. Surgery/Procedure Performed:: Cystoscopy and cystolitholapaxy of large bladder stone, right ureteroscopy laser lithotripsy of stone in the kidney, right laser endopyelotomy for UPJ obstruction, right stent placement, left ureteroscopy. Description of Surgical Findings:: 43-year-old female has a history of spinal myelomeningocele who presents to the hospital because she has a large stone in her bladder she does have a Mitrofanoff and catheterizes himself to empty her bladder every so often, about every 4 hours. CAT scan was done to demonstrate a large stone in the bladder is probably a source of infection she also has a large stone in the UPJ of the right kidney, the stone is in the pelvis and the right kidney also appears a stone in the upper pole of the left kidney. Because of this I recommend we proceed with surgery to remove the stones as her likely sources of infection for her. She was taken back to the operating room after smooth induction of general anesthesia she was placed supine on the table the legs in dorsal lithotomy position took extra time to position her legs and her stirrups making sure to make sure the hips were not overly stretched she was a difficult positioning because of her short stature and short legs but after this was accomplished then the urethra and vaginal area were prepped and draped in usual sterile fashion I went into the bladder with a 21 Gabonese rigid cystourethroscope and the urethra was normal appeared to be fairly coapted together the trigone was normal identify the right ureteral orifice and the left ureteral orifice. Then identified a large stone that was in the middle the in the bladder. The arroyo of the bladder nice and clear there is no tumors or stones within the bladder itself I then used 1000 ?m laser fiber started with a 6 Hz and 1 J and laser the stone little tiny pieces and then worked my way up in the power and fine laser the stone little tiny pieces all the pieces were then flushed out of the bladder. After completion of lasering the stone then I put a wire up on the right side wire went up to the kidney difficult to see the anatomy because of her multiple back surgeries and and hardware in her back, once the wire was in place I went over the wire with a flexible ureteroscope was able to get into the pelvis there was a very tight UPJ right before the pelvis I first lasered a large stone with a 200 ?m laser fiber using energy settings of 6 Hz and 1 J I then increased my joules and hurts I lasered the fragment this took quite some time and it into little tiny pieces I then went back down to the UPJ I then perform an endopyelotomy of the UPJ obstruction incised the UPJ medially towards the kidney did a large incision about 2cm using the end fire of the laser after this was lasered open and then had a nice more open channel put a wire through the endopyelotomy and then backed out the ureter with the scope and over the wire then advanced a stent it was a 6 Gabonese by 22 cm stent should allow this to heal open and allow the fragments to pass. We then drained the bladder I then went back in the bladder with a 21 Gabonese rigid cystourethroscope cannulated the left ureteral orifice with a wire advanced a wire up into the kidney performed x-ray difficult to tell the anatomy because the patient's body habitus she was twisted and so the kidney and ureter were overlying the hardware from her back so retrograde pyelogram was performed on the side I then went up all the way to the kidney I inspected the upper pole midpole lower the pole the kidney it was sort of a unusual angle of the kidney somewhat a dilated tortuous ureter and inspected the kidney I did not find any free floating stones no stones were found in the kidney there were some stones that were seen supposedly on CAT scan but I could not identify any stones along the course of the ureter of the pelvis or any obstructing stones then I worked my way down the ureter and out the bladder we then drained the bladder the stent on the right side was positioned appropriately with the string trimmed the string and we can see her back next week to remove the stent on the right side patient's anesthetic was reversed she is taken back to PACU good condition. Type of Anesthesia:: General Drains: stent right side - Admit VTE Documentation VTE Present on Admission: No VTE Mechan Device Prophylaxis: SCD's
[2018-04-12 13:40] VITALS: BP 119/75; BP 132/83; PULSE 111; RESP 16; TEMP 36.8; O2SAT 97
[2018-04-12 13:45] VITALS: BP 115/74; BP 132/83; PULSE 111; RESP 16; O2SAT 96
[2018-04-12 14:00] VITALS: BP 112/58; BP 132/83; PULSE 110; RESP 16; TEMP 37; O2SAT 96
[2018-04-12 16:05] VITALS: BP 132/83; BP 98/57; PULSE 103; RESP 16; TEMP 37.5; O2SAT 93
== END 2018-04-12 15:45 | disposition home or self-care (01) ==
LOC: SDC 10:17 → AC 10:18
PROVIDERS: Anesthesiology; Referring Provider Urology; Visit Provider Urology
PROC: (CPT 52318; principal; 2018-04-12 11:35)
DX: N21.0 Calculus in bladder (principal); N20.0 Calculus of kidney; N31.2 Flaccid neuropathic bladder, not elsewhere classified; F32.9 Major depressive disorder, single episode, unspecified; R62.52 Short stature (child); G47.30 Sleep apnea, unspecified; Z87.440 Personal history of urinary (tract) infections; E66.9 Obesity, unspecified; Z99.3 Dependence on wheelchair; Z68.34 Body mass index [BMI] 34.0-34.9, adult; Q05.1 Thoracic spina bifida with hydrocephalus
CPT/HCPCS: 52318; 52356; 76000; 81025; J7040; J7120; C1769; C2625; J2405

== ENCOUNTER → 2018-04-20 16:52 | Outpatient (CLI) | payer MEDICARE, MEDICAID, SELFPAY ==
[2018-04-12 11:05] VITALS: BMI 31.1
== END ==
PROVIDERS: Referring Provider Urology; Visit Provider Urology
DX: R82.90 Unspecified abnormal findings in urine (principal)
CPT/HCPCS: 87077; 87086; 87088; 87186

== ENCOUNTER → 2018-05-31 07:03 | Outpatient (CLI) | payer MEDICARE, MEDICAID, SELFPAY ==
--- NOTE | 2018-05-31 07:07 | CT_ITS ---
STUDY: CT ABDOMEN AND PELVIS WITHOUT CONTRAST REASON FOR EXAM: Female, 43 years old. RADIATION DOSAGE (If Supplied By Facility): CTDIvol = ( 12.17 ) mGy, DLP = ( 538.27 ) mGycm TECHNIQUE: Transaxial images were obtained from the dome of the diaphragm to the symphysis pubis without oral contrast, and without intravenous contrast. Sagittal and coronal images were reconstructed. Individualized dose optimization techniques were used for this CT. COMPARISON: March 30, 2018. FINDINGS: Minimal atelectatic changes are seen at the bases. There is a fixed hiatal hernia of moderate size. The liver is normal in size and attenuation no focal lesion noted. There is absence of the gallbladder due to previous cholecystectomy. The spleen is not enlarged. The pancreas is atrophic no masses are seen. There is apparently a [employer] shunt tube with the lower end beneath the inferior surface of the liver. There is 1 cm stone in the inferior aspect of the right kidney with another faint tiny stone adjacent to it. No hydronephrosis seen. The left kidney is unremarkable. There is evidence also spinal fusion involving the entire lumbar spine with fixating hardware down to the sacrum. There is scoliosis of the lumbar spine convexity to the left with resection of the posterior elements. The small and large bowel are within normal limits. The appendix is out. No free fluid or free air within the peritoneal cavity. The urinary bladder shows no stone formation. There is dislocated right hip with deformity of the pelvis. CT/Abdomen/Pelvis without Cont IMPRESSION: Stable findings without significant change since the previous study of March 30, 2018. Electronically Signed: Carolann Akhtar, at 12:04 EST Tel , Service support ,
== END ==
PROVIDERS: Referring Provider Urology; Visit Provider Urology
DX: N20.0 Calculus of kidney (principal)
CPT/HCPCS: 74176

== ENCOUNTER → 2018-07-13 17:32 | Outpatient (CLI) | payer MEDICARE, MEDICAID, SELFPAY | PROVIDERS: Referring Provider Urology; Visit Provider Urology | DX: N39.0 Urinary tract infection, site not specified (principal) | CPT/HCPCS: 87077; 87086; 87088; 87186 ==

== ENCOUNTER 2018-07-21 14:37 | Emergency (ER) | payer MEDICARE, MEDICAID, SELFPAY ==
[2018-07-21 14:38] VITALS: BP 127/83; PULSE 114; RESP 18; TEMP 37; O2SAT 97; BMI 29.2
--- NOTE | 2018-07-21 15:17 | CT_ITS ---
STUDY: CT ABDOMEN AND PELVIS WITHOUT CONTRAST REASON FOR EXAM: Female, 43 years old. Left flank pain RADIATION DOSAGE (If Supplied By Facility): CTDIvol = ( 29.78 ) mGy, DLP = ( 1302.01 ) mGycm TECHNIQUE: Transaxial images were obtained from the dome of the diaphragm to the symphysis pubis without oral contrast, and without intravenous contrast. Sagittal and coronal images were reconstructed. Individualized dose optimization techniques were used for this CT. COMPARISON: Prior recent study of 05/31/2018 FINDINGS: The visualized lung bases are unremarkable. The visualized portions of the heart are within normal limits. Normal liver. There are surgical clips in the gallbladder fossa consistent with a prior cholecystectomy. Normal spleen. The pancreas is fatty replaced. Normal bilateral adrenal glands. There are multiple nonobstructing right renal calculi measuring up to 1.3 cm. The largest stone is in the right renal pelvis. Normal left kidney. A [employer] shunt is seen with tip terminating in the mid pelvis. There is a small hiatal hernia. Normal small intestine. Normal colon. There is non-visualization of the appendix. Normal abdominal aorta. Normal inferior vena cava. Normal retroperitoneum. Normal urinary bladder. Normal abdominal wall. There is spina bifida of the lumbosacral region. Stabilization with orthopedic rods is seen throughout the visualized thoracolumbar region and sacrum. There is deformity of the bony pelvis. There are severe degenerative changes of the hips. There is dislocation of the right hip. CT/Abdomen/Pelvis without Cont IMPRESSION: 1. Status post cholecystectomy. 2. Fatty replaced pancreas. 3. Small hiatal hernia. 4. Multiple nonobstructing right renal calculi measuring up to 1.3 cm. 5. There is a CHIL[employer] shunt with tip terminating in the mid pelvis. 6. There is spina bifida of the lumbosacral region. Stabilization with orthopedic rods is noted throughout the visualized thoracolumbar area and sacrum. There is deformity of the bony pelvis. There are severe degenerative changes of the hips. There is dislocation of the right hip, also noted on the prior study. 7. There is no evidence of free intra-abdominal or intrapelvic air, fluid, or inflammatory process. 8. Findings are similar to the prior study. Electronically Signed: Rodney Hanson MD at 16:41 EST , Service support ,
--- NOTE | 2018-07-21 15:18 | ED.VISSUMM ---
- ER Visit Summary Date of Service: 07/21/18 Chief Complaint: Left flank pain History of Present Illness: The patient is a 43 F who has left flank pain. The pain started 5 days ago. She has a history of UTI and kidney stones in the past. She has not had a fever or back pain currently. She sees Dr. Hernandez as an outpatient. They took a urine specimen earlier this week and actually grew out Klebsiella and another gram-negative nonfermenting organism. They did not start antibiotics. She caths as needed through her navel. She wears a bag at night. She does not have an indwelling catheter. Physical Examination: Vital signs are reviewed. HEENT exam unremarkable. Heart is tachycardic and regular rhythm without murmurs. Lungs are clear. Abdomen is soft with left flank tenderness. Her extremities have no edema. Her neurologic exam is at baseline according to family. Test Results: White blood cell count 11.8, hemoglobin 11.7. Chemistries normal. Urinalysis reveals infection. CAT scan of the abdomen and pelvis reveals nothing acute. Emergency Department Course and Treatment: I reviewed the patient's culture from earlier this week. It was sensitive to many antibiotics including ceftriaxone. I will treat her with 1 dose of ceftriaxone here. Keflex for home. Feel she can be discharged as an outpatient because she has not vomiting. She is not febrile. Her white blood cell count is under 12. There are no signs of sepsis. She will need to follow-up with her urologist. Treatment Plan: [] Disposition: Discharge Impression: Pyelonephritis This note was generated with [employer] dictation software. It may contain incorrect words, spelling, and punctuation that were not noted in review of the chart prior to signing ED Disposition - Plan for ED Patient: Referrals: Delores Alford MD [Primary Care Provider] -
[2018-07-21] MEDS: Ketorolac 30 MG/ML Syringe IV (15:45)
[2018-07-21] MEDS: 0.9% Normal Saline 1,000 ML 250 ML IV (15:45)
[2018-07-21] MEDS: Ondansetron 4 MG/2 ML Vial IV (15:45)
[2018-07-21 15:47] VITALS: BP 134/99; PULSE 105; RESP 18; TEMP 37; O2SAT 92
[2018-07-21 16:00] LABS: Basophil# 0.07 X10^3/uL; Basophil% 0.6 % (0-1); Eosinophil# 0.47 X10^3/uL; Hematocrit 36.9 % (37-47); Hemoglobin 11.7 g/dl (12.0-15.0); Lymphocyte % 22.8 % (19-41); Mean Corp Hgb Conc 31.7 g/gl (32-36); Mean Corpuscular Hgb 30.3 pg (27.0-32.0); Mean Corpuscular Volume 95.6 fL (81-99); Mean Platelet Vol. 9.6 fl (6.2-12.0); Monocyte# 0.59 X10^3/uL; Neutrophil # 7.97 X10^3/uL (2.7-7.7); Neutrophil % 67.4 % (47-70); Platelet Count 378 K/mm3 (150-450); RBC Distribution Width CV 13.6 % (11.6-14.6); RBC Distribution Width SD 45.2 fl (35.1-43.9); Red Blood Count 3.86 M/mm3 (4.2-5.4); White Blood Count 11.8 K/mm3 (4.4-11.0)
[2018-07-21 16:02] LABS: Differential Indicated SCAN CRITERIA MET; POSITIVE COUNT NO; POSITIVE DIFFERENTIAL NO; POSITIVE MORPHOLOGY YES
[2018-07-21 16:03] LABS: Anion Gap 7 (5-15); BUN 10 mg/dL (7-18); BUN/Creat Ratio 17.8 RATIO (10-20); Calcium,Total 8.4 mg/dL (8.5-10.1); Chloride 106 mmol/L (98-107); Creatinine, Serum 0.56 mg/dL (0.55-1.02); EST Glomerular Filtration Rate 125 mL/min (>60); Est Glom Filt Rate - Afr Amer 151 mL/min (>60); Estimated Creatinine Clearance 134.49 ml/min; Glucose 91 mg/dL (74-106); Sodium Level 139 mmol/L (136-145)
[2018-07-21 16:39] LABS: Mucous, Urine 0 SEEN /hpf (<or=2+); Red Blood Cells-Urine 0 SEEN /hpf (0-5)
[2018-07-21 16:40] LABS: Differential Comment SCANNED; Reactive Lymphocyte 1+
[2018-07-21 16:47] LABS: Color, Urine Yellow (Yellow); Glucose, Dipstick Normal (Normal); Ketone-Dipstick Negative (Negative); Leukocyte Esterase-Dipstick 500 /ul (Negative); Nitrite-Dipstick Positive (Negative); Occult Blood-Urine 150 /ul (Negative); Protein-Dipstick 30 mg/dl (Negative); Urine Bilirubin Dipstick Negative (Negative); Urine Clarity Clear (Clear); Urine Urobilinogen Normal (Normal)
[2018-07-21 17:04] LABS: Bacteria 1+ /hpf (None Seen); Squamous Epithelial Cells - UA 0-5 SEEN /hpf (5-10); White Blood Cells 25-50 SEEN /hpf (0-5)
[2018-07-21 17:09] VITALS: BP 136/88; PULSE 106; RESP 16; O2SAT 87
--- NOTE | 2018-07-21 17:17 | ED.DEP ---
ED Disposition - Plan for ED Patient: Disposition: Home or Assisted Living Instructions: ED Kidney Infec Female Prescriptions: Cephalexin [Keflex] 500 mg PO Q12 #10 cap Referrals: Delores Alford MD [Primary Care Provider] -
[2018-07-21] MEDS: Ceftriaxone 1 GM/50 ML BAG IV (17:33)
[2018-07-21 18:12] VITALS: BP 148/85; PULSE 105; RESP 17; O2SAT 98
== END 2018-07-21 19:30 | disposition home or self-care (01) ==
PROVIDERS: Emergency Provider Emergency Medicine
DX: N12 Tubulo-interstitial nephritis, not specified as acute or chronic (principal); Z87.440 Personal history of urinary (tract) infections; Z87.442 Personal history of urinary calculi; J45.909 Unspecified asthma, uncomplicated
CPT/HCPCS: 74176; 80048; 81001; 85025; 96361; 96365; 96375; 99284; J7030; A4216; J2405

== ENCOUNTER → 2018-10-18 12:48 | Outpatient (CLI) | payer MEDICARE, MEDICAID, SELFPAY ==
[2018-10-18 09:39] VITALS: BMI 29.0
== END ==
PROVIDERS: Family Provider Family Medicine; PCP Family Medicine; Referring Provider Urology; Visit Provider Urology
DX: R30.0 Dysuria (principal); L89.103 Pressure ulcer of unspecified part of back, stage 3; Q05.9 Spina bifida, unspecified; Z79.82 Long term (current) use of aspirin; Z79.899 Other long term (current) drug therapy; R60.0 Localized edema
CPT/HCPCS: 11042; 87086; 87088; 87186; 99213; G0463

== ENCOUNTER 2018-10-25 09:15 | Outpatient (RCR) | payer MEDICARE, MEDICAID, SELFPAY ==
[2018-10-18 09:39] VITALS: BP 109/71; PULSE 76; RESP 16; TEMP 37.6; BMI 29.0
--- NOTE | 2018-10-18 13:30 | PCM.WC.HP ---
(1) Decubitus ulcer of lower back, stage 3 Status: Acute Current Visit: Yes Code(s): L89.103 - Pressure ulcer of unspecified part of back, stage 3 (2) Spina bifida Status: Chronic Current Visit: Yes Code(s): Q05.9 - Spina bifida, unspecified History of Present Illness Chief Complaint: Lower back ulcer. History of Wound: Ms. Crews is a 43-year-old who presents today with a lower back ulcer noted just over a week ago. He denies any known precipitating factor. Has been doing some conservative management at home without any significant improvement. Initial drainage noted however none at this time. She denies chills, fever otherwise feeling of unwell. Past Medical History Past Medical History: Chronic Problems (Last Updated 03/11/18 @ 14:54 by Cecil Butts DO) Edema of right lower extremity (Chronic) Spina bifida (Chronic) Surgical History: cholecystectomy, - - vertebral rods. ileostomy Allergies/Adverse Reactions: Allergies amoxicillin [From Augmentin] Adverse Reaction (Verified 10/18/18 11:30) Diarrhea azithromycin [From Zithromax Z-Turner] Adverse Reaction (Verified 10/18/18 11:30) Diarrhea ciprofloxacin [From Cipro] Adverse Reaction (Verified 10/18/18 11:30) Pain in joints clavulanic acid [From Augmentin] Adverse Reaction (Verified 10/18/18 11:30) Diarrhea Home Medications: Ambulatory Orders Medication Instructions Recorded Multivitamins,Therapeutic 1 tablet PO QHS 04/24/13 [Multivitamin] Oxybutynin Chloride [Ditropan Xl] 15 mg PO QHS 04/24/13 Paroxetine [Paxil] 40 mg PO QHS 04/24/13 Bacillus Coagulans [Probiotic] 1 each PO QHS 03/11/18 Omeprazole [Prilosec] mg PO QHS 03/11/18 Aspirin [Aspirin, Baby] 81 mg PO DAILY@0800 tab.chew 03/14/18 Metoprolol Tartrate [Lopressor mg PO BID 04/11/18 (Beta Jackie)] - Family History Maternal - Smoking Status: Never smoker Review of Systems Constitutional: Denies: Anorexia, Chills, Fever Eyes: Denies: Blurred vision, Pain, Redness HEENT: Denies: Difficulty Swallowing Cardiovascular: Denies: Chest Pain, Chest Pressure Respiratory: Denies: Cough, Hemoptysis Gastrointestinal: Denies: Abdominal Pain, Hematemesis, Vomiting Genitourinary: Denies: Hematuria Skin: Denies: Jaundice - Physical Exam Vital Signs Temp Pulse Resp BP 99.6 F H 76 16 109/71 10/18/18 09:39 10/18/18 09:39 10/18/18 09:39 10/18/18 09:39 General: Alert, Oriented x3, Cooperative, No apparent distress HEENT: Atraumatic, Normocephalic Oral: Moist Mucosa Neck: Supple Lungs: Normal air movement Cardiovascular: Regular rate, Regular Rhythm Abdomen: Soft, Non Tender, Obese Extremities: No cyanosis Skin: Ulcer/ Wound Wound Measurements and Assessment WC - Nurse 1 - General Ulcer Measurement Start: 10/18/18 09:39 Freq: Status: Active Protocol: Activity Type Activity Date Activity User E-Sign Co-Sign Detail Recorded Client Recorded Date Recorded By Document 10/18/18 09:39 [facility] [id number] 10/18/18 09:53 [facility] 10/18/18 09:39 Wound Center Nurse 1 [Ulcer Assessment] #2- LUMBAR AREA -Combined with other wound No -Current Size (cm) - Length 1.8 -Current Size (cm) - Width 1.7 -Current Size (cm) - Depth 0.1 -Total Square Cm 3.06 -Date of Last Picture (Recall this 10/18/18 field) -Photo Taken Yes -Epithelialization None Present -Tunneling No -Undermining/Tunneling No -Circular Undermining No -Exudate Amt Medium -Exudate Type Serosanguineous -Wound Margin Distinct, Outline Attached -Granulation Amt Small (1-33%) -Granulation Quality Red -Slough/Fibrin Yes -Necrosis Amt Large (67-100%) -Necrotic Tissue Type Adherent Slough -Texture (Patience-wound Skin Appearance) Assessed Scarring -Moisture (Patience-wound Skin Appearance Assessed ) -Color (Patience-wound Skin Appearance) Assessed -Temperature (Patience-wound Skin No Abnormality Appearance) (Pt Warm) -Tenderness on Palpation (Patience-wound No Skin Appearance) -Ulcer Cleansing Rinsed/ Irrigated with Saline -Foul Odor after Cleansing No -Anesthetic Used 5% Lidocaine Gel WC - Nurse 2 - General Ulcer CM Notes Start: 10/18/18 09:39 Freq: Status: Active Protocol: Activity Type Activity Date Activity User E-Sign Co-Sign Detail Recorded Client Recorded Date Recorded By Document 10/18/18 10:04 MW [id number] 10/18/18 10:10 MW 10/18/18 10:04 Wound Center Nurse 2 [Procedure/Treatment] -Time 10:04 -Correct Patient Yes -Correct Side, Site, Position Yes -Correct Procedure Yes -Procedure Performed Yes -Type of Procedure Debridement -Clinical Debridement Subcutaneous -Post Debridement Size (cm) - Length 2.3 -Post Debridement Size (cm) - Width 2.0 -Post Debridement Size (cm) - Depth 0.1 -Total Square Cm 4.60 -Wound/Ulcer Outcome Not Healed -Ulcer Cleansing Wound Cleanser -Foul Odor after Cleansing No -Bioengineered Tissue No -Bleeding Controlled with Pressure -Offloading No -Treatment Response Procedure Tolerated Well [See Physician Procedure note for Specifics] Pain Scale: 0-10 Numeric [Pain] -Is Patient Pain Free? Yes Musculoskeletal: No Muscle Wasting Neurological: Cranial nerves II-XII grossly intact Psych/Mental Status: Normal Affect Debridement Note Post-Debridement Measurements/Treatment WC - Nurse 2 - General Ulcer CM Notes Start: 10/18/18 09:39 Freq: Status: Active Protocol: Activity Type Activity Date Activity User E-Sign Co-Sign Detail Recorded Client Recorded Date Recorded By Document 10/18/18 10:04 MW [id number] 10/18/18 10:10 MW 10/18/18 10:04 Wound Center Nurse 2 #2- LUMBAR AREA -Time 10:04 -Correct Patient Yes -Correct Side, Site, Position Yes -Correct Procedure Yes -Procedure Performed Yes -Type of Procedure Debridement -Clinical Debridement Subcutaneous -Post Debridement Size (cm) - Length 2.3 -Post Debridement Size (cm) - Width 2.0 -Post Debridement Size (cm) - Depth 0.1 -Total Square Cm 4.60 -Wound/Ulcer Outcome Not Healed -Ulcer Cleansing Wound Cleanser -Foul Odor after Cleansing No -Bioengineered Tissue No -Bleeding Controlled with Pressure -Offloading No -Treatment Response Procedure Tolerated Well Pain Scale: 0-10 Numeric Is Patient Pain Free? Yes Wound debrided: Lower back Wound Grade/Stage: Stage III Type of Debridement: Excisional debridement Anesthesia Used: 4% Lidocaine Solution Depth: Down to and including healthy tissue, in the subcutaneous layer Percentage of wound debrided: 100 Instrument Used: 5mm curette Tissue Removed: Slough and devitalized tissue Severity: Fat Layer Exposed Amount of bleeding with debridement: Mild Bleeding Controlled with: Pressure Patient tolerated procedure well Assessment/Plan Active Problems (Last Updated 03/11/18 @ 14:54 by Cecil Butts DO) Spina bifida (Chronic) Decubitus ulcer of lower back, stage 3 (Acute) Assessment: Same as above. Plan: Debridement done as documented above, procedure was well-tolerated. Still has a decent amount of slough. Will start with Santyl daily with moistened gauze over top. Offloading recommended. Increased protein intake also strongly recommended. All her questions were answered and she was advised to call with any further questions or concerns. Follow-up in 1 week. This note was generated with [employer] dictation software. It may contain incorrect words, spelling, and punctuation that were not noted in checking the note before signing.
--- NOTE | 2018-10-18 13:34 | HP.PCM_ITS ---
(1) Decubitus ulcer of lower back, stage 3 Status: Acute Current Visit: Yes Code(s): L89.103 - Pressure ulcer of unspecified part of back, stage 3 (2) Spina bifida Status: Chronic Current Visit: Yes Code(s): Q05.9 - Spina bifida, unspecified History of Present Illness Chief Complaint: Lower back ulcer. History of Wound: Ms. Crews is a 43-year-old who presents today with a lower back ulcer noted just over a week ago. He denies any known precipitating factor. Has been doing some conservative management at home without any significant improvement. Initial drainage noted however none at this time. She denies chills, fever otherwise feeling of unwell. Past Medical History Past Medical History: Chronic Problems (Last Updated 03/11/18 @ 14:54 by Cecil Butts DO) Edema of right lower extremity (Chronic) Spina bifida (Chronic) Surgical History: cholecystectomy, - - vertebral rods. ileostomy Allergies/Adverse Reactions: Allergies amoxicillin [From Augmentin] Adverse Reaction (Verified 10/18/18 11:30) Diarrhea azithromycin [From Zithromax Z-Turner] Adverse Reaction (Verified 10/18/18 11:30) Diarrhea ciprofloxacin [From Cipro] Adverse Reaction (Verified 10/18/18 11:30) Pain in joints clavulanic acid [From Augmentin] Adverse Reaction (Verified 10/18/18 11:30) Diarrhea Home Medications: Ambulatory Orders Medication Instructions Recorded Multivitamins,Therapeutic 1 tablet PO QHS 04/24/13 [Multivitamin] Oxybutynin Chloride [Ditropan Xl] 15 mg PO QHS 04/24/13 Paroxetine [Paxil] 40 mg PO QHS 04/24/13 Bacillus Coagulans [Probiotic] 1 each PO QHS 03/11/18 Omeprazole [Prilosec] mg PO QHS 03/11/18 Aspirin [Aspirin, Baby] 81 mg PO DAILY@0800 tab.chew 03/14/18 Metoprolol Tartrate [Lopressor mg PO BID 04/11/18 (Beta Jackie)] - Family History Maternal - Smoking Status: Never smoker Review of Systems Constitutional: Denies: Anorexia, Chills, Fever Eyes: Denies: Blurred vision, Pain, Redness HEENT: Denies: Difficulty Swallowing Cardiovascular: Denies: Chest Pain, Chest Pressure Respiratory: Denies: Cough, Hemoptysis Gastrointestinal: Denies: Abdominal Pain, Hematemesis, Vomiting Genitourinary: Denies: Hematuria Skin: Denies: Jaundice - Physical Exam Vital Signs Temp Pulse Resp BP 99.6 F H 76 16 109/71 10/18/18 09:39 10/18/18 09:39 10/18/18 09:39 10/18/18 09:39 General: Alert, Oriented x3, Cooperative, No apparent distress HEENT: Atraumatic, Normocephalic Oral: Moist Mucosa Neck: Supple Lungs: Normal air movement Cardiovascular: Regular rate, Regular Rhythm Abdomen: Soft, Non Tender, Obese Extremities: No cyanosis Skin: Ulcer/ Wound Wound Measurements and Assessment WC - Nurse 1 - General Ulcer Measurement Start: 10/18/18 09:39 Freq: Status: Active Protocol: Activity Type Activity Date Activity User E-Sign Co-Sign Detail Recorded Client Recorded Date Recorded By Document 10/18/18 09:39 [facility] [id number] 10/18/18 09:53 [facility] 10/18/18 09:39 Wound Center Nurse 1 [Ulcer Assessment] #2- LUMBAR AREA -Combined with other wound No -Current Size (cm) - Length 1.8 -Current Size (cm) - Width 1.7 -Current Size (cm) - Depth 0.1 -Total Square Cm 3.06 -Date of Last Picture (Recall this 10/18/18 field) -Photo Taken Yes -Epithelialization None Present -Tunneling No -Undermining/Tunneling No -Circular Undermining No -Exudate Amt Medium -Exudate Type Serosanguineous -Wound Margin Distinct, Outline Attached -Granulation Amt Small (1-33%) -Granulation Quality Red -Slough/Fibrin Yes -Necrosis Amt Large (67-100%) -Necrotic Tissue Type Adherent Slough -Texture (Patience-wound Skin Appearance) Assessed Scarring -Moisture (Patience-wound Skin Appearance Assessed ) -Color (Patience-wound Skin Appearance) Assessed -Temperature (Patience-wound Skin No Abnormality Appearance) (Pt Warm) -Tenderness on Palpation (Patience-wound No Skin Appearance) -Ulcer Cleansing Rinsed/ Irrigated with Saline -Foul Odor after Cleansing No -Anesthetic Used 5% Lidocaine Gel WC - Nurse 2 - General Ulcer CM Notes Start: 10/18/18 09:39 Freq: Status: Active Protocol: Activity Type Activity Date Activity User E-Sign Co-Sign Detail Recorded Client Recorded Date Recorded By Document 10/18/18 10:04 MW [id number] 10/18/18 10:10 MW 10/18/18 10:04 Wound Center Nurse 2 [Procedure/Treatment] -Time 10:04 -Correct Patient Yes -Correct Side, Site, Position Yes -Correct Procedure Yes -Procedure Performed Yes -Type of Procedure Debridement -Clinical Debridement Subcutaneous -Post Debridement Size (cm) - Length 2.3 -Post Debridement Size (cm) - Width 2.0 -Post Debridement Size (cm) - Depth 0.1 -Total Square Cm 4.60 -Wound/Ulcer Outcome Not Healed -Ulcer Cleansing Wound Cleanser -Foul Odor after Cleansing No -Bioengineered Tissue No -Bleeding Controlled with Pressure -Offloading No -Treatment Response Procedure Tolerated Well [See Physician Procedure note for Specifics] Pain Scale: 0-10 Numeric [Pain] -Is Patient Pain Free? Yes Musculoskeletal: No Muscle Wasting Neurological: Cranial nerves II-XII grossly intact Psych/Mental Status: Normal Affect Debridement Note Post-Debridement Measurements/Treatment WC - Nurse 2 - General Ulcer CM Notes Start: 10/18/18 09:39 Freq: Status: Active Protocol: Activity Type Activity Date Activity User E-Sign Co-Sign Detail Recorded Client Recorded Date Recorded By Document 10/18/18 10:04 MW [id number] 10/18/18 10:10 MW 10/18/18 10:04 Wound Center Nurse 2 #2- LUMBAR AREA -Time 10:04 -Correct Patient Yes -Correct Side, Site, Position Yes -Correct Procedure Yes -Procedure Performed Yes -Type of Procedure Debridement -Clinical Debridement Subcutaneous -Post Debridement Size (cm) - Length 2.3 -Post Debridement Size (cm) - Width 2.0 -Post Debridement Size (cm) - Depth 0.1 -Total Square Cm 4.60 -Wound/Ulcer Outcome Not Healed -Ulcer Cleansing Wound Cleanser -Foul Odor after Cleansing No -Bioengineered Tissue No -Bleeding Controlled with Pressure -Offloading No -Treatment Response Procedure Tolerated Well Pain Scale: 0-10 Numeric Is Patient Pain Free? Yes Wound debrided: Lower back Wound Grade/Stage: Stage III Type of Debridement: Excisional debridement Anesthesia Used: 4% Lidocaine Solution Depth: Down to and including healthy tissue, in the subcutaneous layer Percentage of wound debrided: 100 Instrument Used: 5mm curette Tissue Removed: Slough and devitalized tissue Severity: Fat Layer Exposed Amount of bleeding with debridement: Mild Bleeding Controlled with: Pressure Patient tolerated procedure well Assessment/Plan Active Problems (Last Updated 03/11/18 @ 14:54 by Cecil Butts DO) Spina bifida (Chronic) Decubitus ulcer of lower back, stage 3 (Acute) Assessment: Same as above. Plan: Debridement done as documented above, procedure was well-tolerated. Still has a decent amount of slough. Will start with Santyl daily with moistened gauze over top. Offloading recommended. Increased protein intake also strongly recommended. All her questions were answered and she was advised to call with any further questions or concerns. Follow-up in 1 week. This note was generated with [employer] dictation software. It may contain incorrect words, spelling, and punctuation that were not noted in checking the note before signing.
[2018-10-25 09:52] VITALS: BP 97/63; PULSE 86; RESP 18; TEMP 36.9; BMI 29.0
--- NOTE | 2018-10-25 10:59 | PN.PCM_ITS ---
(1) Decubitus ulcer of lower back, stage 3 Status: Acute Current Visit: Yes Code(s): L89.103 - Pressure ulcer of unspecified part of back, stage 3 (2) Spina bifida Status: Chronic Current Visit: Yes Code(s): Q05.9 - Spina bifida, unspecified Type of Wound Chief Complaint: Lower back ulcer. History of Wound: Ms. Crews is a 43-year-old who presents today with a lower back ulcer noted just over a week ago. He denies any known precipitating factor. Has been doing some conservative management at home without any significant improvement. Initial drainage noted however none at this time. She denies chills, fever otherwise feeling of unwell. Progress of Wound: Improving. No new concerns at this time. - Physical Exam Vital Signs Temp Pulse Resp BP 98.4 F 86 18 97/63 10/25/18 09:52 10/25/18 09:52 10/25/18 09:52 10/25/18 09:52 General: Alert, Oriented x3, Cooperative, No apparent distress HEENT: Atraumatic, Normocephalic Oral: Moist Mucosa Neck: Supple Lungs: Normal air movement Extremities: No cyanosis Skin: Ulcer/ Wound Wound Measurements and Assessment WC - Nurse 1 - General Ulcer Measurement Start: 10/18/18 09:39 Freq: Status: Active Protocol: Activity Type Activity Date Activity User E-Sign Co-Sign Detail Recorded Client Recorded Date Recorded By Document 10/25/18 09:52 DV [id number] 10/25/18 09:59 DV 10/25/18 09:52 Wound Center Nurse 1 [Ulcer Assessment] #3- LUMBAR AREA -Combined with other wound No -Current Size (cm) - Length 1.9 -Current Size (cm) - Width 2.0 -Current Size (cm) - Depth 0.1 -Total Square Cm 3.80 -Photo Taken No -Epithelialization None Present -Tunneling No -Undermining/Tunneling No -Circular Undermining No -Classification - Thickness Full Thickness without Exposed Support Structure -Exudate Amt Medium -Exudate Type Serous -Wound Margin Flat & Intact -Granulation Amt Small (1-33%) -Granulation Quality Pale Red -Slough/Fibrin Yes -Necrosis Amt Medium (34-66%) -Necrotic Tissue Type Adherent Slough -Structure Exposed None/Limited to Skin Breakdown -Texture (Patience-wound Skin Appearance) Assessed Scarring -Moisture (Patience-wound Skin Appearance Assessed ) Weeping -Color (Patience-wound Skin Appearance) No Abnormality Assessed -Temperature (Patience-wound Skin No Abnormality Appearance) (Pt Warm) -Tenderness on Palpation (Patience-wound No Skin Appearance) -Ulcer Cleansing Rinsed/ Irrigated with Saline -Foul Odor after Cleansing No -Anesthetic Used 5% Lidocaine Gel - Nurse 2 - General Ulcer CM Notes Start: 10/18/18 09:39 Freq: Status: Active Protocol: Activity Type Activity Date Activity User E-Sign Co-Sign Detail Recorded Client Recorded Date Recorded By Document 10/25/18 10:17 MW [id number] 10/25/18 10:20 MW 10/25/18 10:17 Wound Center Nurse 2 [Procedure/Treatment] -Time 10:19 -Correct Patient Yes -Correct Side, Site, Position Yes -Correct Procedure Yes -Procedure Performed Yes -Type of Procedure Debridement -Clinical Debridement Subcutaneous -Post Debridement Size (cm) - Length 1.6 -Post Debridement Size (cm) - Width 1.0 -Post Debridement Size (cm) - Depth 0.1 -Total Square Cm 1.60 -Wound/Ulcer Outcome Not Healed -Ulcer Cleansing Rinsed/ Irrigated with Saline -Foul Odor after Cleansing No -Bioengineered Tissue No -Bleeding Controlled with Pressure -Offloading No -Treatment Response Procedure Tolerated Well [See Physician Procedure note for Specifics] Pain Scale: 0-10 Numeric [Pain] -Is Patient Pain Free? Yes Musculoskeletal: No Muscle Wasting Neurological: Cranial nerves II-XII grossly intact Psych/Mental Status: Normal Affect Debridement Note Post-Debridement Measurements/Treatment - Nurse 2 - General Ulcer CM Notes Start: 10/18/18 09:39 Freq: Status: Active Protocol: Activity Type Activity Date Activity User E-Sign Co-Sign Detail Recorded Client Recorded Date Recorded By Document 10/18/18 10:04 MW [id number] 10/18/18 10:10 MW Document 10/25/18 10:17 MW [id number] 10/25/18 10:20 MW 10/18/18 10/25/18 10:04 10:17 Wound Center Nurse 2 #3- LUMBAR AREA -Time 10:04 10:19 -Correct Patient Yes Yes -Correct Side, Site, Position Yes Yes -Correct Procedure Yes Yes -Procedure Performed Yes Yes -Type of Procedure Debridement Debridement -Clinical Debridement Subcutaneous Subcutaneous -Post Debridement Size (cm) - Length 2.3 1.6 -Post Debridement Size (cm) - Width 2.0 1.0 -Post Debridement Size (cm) - Depth 0.1 0.1 -Total Square Cm 4.60 1.60 -Wound/Ulcer Outcome Not Healed Not Healed -Ulcer Cleansing Wound Cleanser Rinsed/ Irrigated with Saline -Foul Odor after Cleansing No No -Bioengineered Tissue No No -Bleeding Controlled with Pressure Pressure -Offloading No No -Treatment Response Procedure Procedure Tolerated Well Tolerated Well Pain Scale: 0-10 Numeric Is Patient Pain Free? Yes Yes Wound debrided: Mid lower back Wound Grade/Stage: Stage III Type of Debridement: Excisional debridement Anesthesia Used: 4% Lidocaine Solution Depth: Down to and including healthy tissue, in the subcutaneous layer Percentage of wound debrided: 100 Instrument Used: 3mm curette Tissue Removed: Slough and devitalized tissue Severity: Fat Layer Exposed Amount of bleeding with debridement: Mild Bleeding Controlled with: Pressure Patient tolerated procedure well Assessment/Plan Active Problems (Last Updated 03/11/18 @ 14:54 by Cecil Butts DO) Spina bifida (Chronic) Decubitus ulcer of lower back, stage 3 (Acute) Assessment: Same as above. Plan: Improving. Debridement done as documented above, procedure was well- tolerated. Continue Santyl daily with moistened gauze over top. Offloading recommended. Increased protein intake also strongly recommended. All her questions were answered and she was advised to call with any further questions or concerns. Follow-up in 1 week. This note was generated with [employer] software. It may contain incorrect words, spelling, and punctuation that were not noted in checking the note before signing.
== END 2018-11-03 23:59 ==
LOC: WC 09:15
PROVIDERS: Family Provider Family Medicine; PCP Family Medicine; Visit Provider Internal Medicine
DX: L89.103 Pressure ulcer of unspecified part of back, stage 3 (principal); Q05.9 Spina bifida, unspecified; Z79.82 Long term (current) use of aspirin; Z79.899 Other long term (current) drug therapy; R60.0 Localized edema
CPT/HCPCS: 11042; 99213; G0463

== ENCOUNTER 2018-11-30 10:30 | Outpatient (RCR) | payer MEDICARE, MEDICAID, SELFPAY ==
[2018-11-04 01:20] VITALS: BP 97/63; PULSE 86; RESP 18; TEMP 36.9
[2018-11-08 08:16] VITALS: BP 120/82; PULSE 105; RESP 18; TEMP 37; BMI 29.0
--- NOTE | 2018-11-08 09:32 | PCM.WC.PN ---
(1) Decubitus ulcer of lower back, stage 3 Status: Chronic Current Visit: Yes Code(s): L89.103 - Pressure ulcer of unspecified part of back, stage 3 (2) Spina bifida Status: Chronic Current Visit: Yes Code(s): Q05.9 - Spina bifida, unspecified Type of Wound Chief Complaint: Lower back ulcer. History of Wound: Ms. Crews is a 43-year-old who presents today with a lower back ulcer noted just over a week ago. He denies any known precipitating factor. Has been doing some conservative management at home without any significant improvement. Initial drainage noted however none at this time. She denies chills, fever otherwise feeling of unwell. Progress of Wound: Stable. No new concerns at this time. - Physical Exam Vital Signs Temp Pulse Resp BP 98.6 F 105 H 18 120/82 H 11/08/18 08:16 11/08/18 08:16 11/08/18 08:16 11/08/18 08:16 General: Alert, Oriented x3, Cooperative, No apparent distress HEENT: Atraumatic, Normocephalic Oral: Moist Mucosa Neck: Supple Lungs: Normal air movement Extremities: No cyanosis Skin: Ulcer/ Wound Wound Measurements and Assessment WC - Nurse 1 - General Ulcer Measurement Start: 11/08/18 08:16 Freq: Status: Active Protocol: Activity Type Activity Date Activity User E-Sign Co-Sign Detail Recorded Client Recorded Date Recorded By Document 11/08/18 08:16 DV [id number] 11/08/18 08:23 DV 11/08/18 08:16 Wound Center Nurse 1 [Ulcer Assessment] #3- LUMBAR AREA -Combined with other wound No -Current Size (cm) - Length 1.5 -Current Size (cm) - Width 1.0 -Current Size (cm) - Depth 0.1 -Total Square Cm 1.50 -Photo Taken No -Epithelialization None Present -Tunneling No -Undermining/Tunneling No -Circular Undermining No -Classification - Thickness Full Thickness without Exposed Support Structure -Wound Margin Flat & Intact -Granulation Amt Small (1-33%) -Granulation Quality Pale Red -Slough/Fibrin Yes -Necrosis Amt Medium (34-66%) -Necrotic Tissue Type Adherent Slough -Structure Exposed None/Limited to Skin Breakdown -Texture (Patience-wound Skin Appearance) No Abnormality Assessed -Moisture (Patience-wound Skin Appearance No Abnormality ) Assessed -Color (Patience-wound Skin Appearance) No Abnormality Assessed -Temperature (Patience-wound Skin No Abnormality Appearance) (Pt Warm) -Tenderness on Palpation (Patience-wound No Skin Appearance) -Ulcer Cleansing Rinsed/ Irrigated with Saline -Foul Odor after Cleansing No -Anesthetic Used 5% Lidocaine Gel WC - Nurse 2 - General Ulcer CM Notes Start: 11/08/18 08:16 Freq: Status: Active Protocol: Activity Type Activity Date Activity User E-Sign Co-Sign Detail Recorded Client Recorded Date Recorded By Document 11/08/18 08:32 MW [id number] 11/08/18 08:35 MW 11/08/18 08:32 Wound Center Nurse 2 [Procedure/Treatment] -Time 08:34 -Correct Patient Yes -Correct Side, Site, Position Yes -Correct Procedure Yes -Procedure Performed Yes -Type of Procedure Debridement -Clinical Debridement Subcutaneous -Post Debridement Size (cm) - Length 1.5 -Post Debridement Size (cm) - Width 1.0 -Post Debridement Size (cm) - Depth 0.1 -Total Square Cm 1.50 -Wound/Ulcer Outcome Not Healed -Ulcer Cleansing Rinsed/ Irrigated with Saline -Foul Odor after Cleansing No -Bioengineered Tissue No -Bleeding Controlled with Pressure -Offloading No -Treatment Response Procedure Tolerated Well [See Physician Procedure note for Specifics] Pain Scale: 0-10 Numeric [Pain] -Is Patient Pain Free? Yes Neurological: Cranial nerves II-XII grossly intact Psych/Mental Status: Normal Affect Debridement Note Post-Debridement Measurements/Treatment WC - Nurse 2 - General Ulcer CM Notes Start: 11/08/18 08:16 Freq: Status: Active Protocol: Activity Type Activity Date Activity User E-Sign Co-Sign Detail Recorded Client Recorded Date Recorded By Document 11/08/18 08:32 MW [id number] 11/08/18 08:35 MW 11/08/18 08:32 Wound Center Nurse 2 #3- LUMBAR AREA -Time 08:34 -Correct Patient Yes -Correct Side, Site, Position Yes -Correct Procedure Yes -Procedure Performed Yes -Type of Procedure Debridement -Clinical Debridement Subcutaneous -Post Debridement Size (cm) - Length 1.5 -Post Debridement Size (cm) - Width 1.0 -Post Debridement Size (cm) - Depth 0.1 -Total Square Cm 1.50 -Wound/Ulcer Outcome Not Healed -Ulcer Cleansing Rinsed/ Irrigated with Saline -Foul Odor after Cleansing No -Bioengineered Tissue No -Bleeding Controlled with Pressure -Offloading No -Treatment Response Procedure Tolerated Well Pain Scale: 0-10 Numeric Is Patient Pain Free? Yes Wound debrided: Mid lower back Wound Grade/Stage: Stage III Type of Debridement: Excisional debridement Anesthesia Used: 4% Lidocaine Solution Depth: Down to and including healthy tissue, in the subcutaneous layer Percentage of wound debrided: 100 Instrument Used: 3mm curette Tissue Removed: Slough and devitalized tissue Severity: Fat Layer Exposed Amount of bleeding with debridement: Mild Bleeding Controlled with: Pressure Patient tolerated procedure well Assessment/Plan Active Problems (Last Updated 03/11/18 @ 14:54 by Cecil Butts DO) Spina bifida (Chronic) Decubitus ulcer of lower back, stage 3 (Chronic) Assessment: Same as above. Plan: Mild improvement in the past week. Debridement done as documented above, procedure was well-tolerated. Switch to Pomogran daily with adaptic over top. Offloading recommended. Increased protein intake also strongly recommended. All her questions were answered and she was advised to call with any further questions or concerns. Follow-up with Dr Lazaro next week. This note was generated with [employer] software. It may contain incorrect words, spelling, and punctuation that were not noted in checking the note before signing.
--- NOTE | 2018-11-08 09:35 | PN.PCM_ITS ---
(1) Decubitus ulcer of lower back, stage 3 Status: Chronic Current Visit: Yes Code(s): L89.103 - Pressure ulcer of unspecified part of back, stage 3 (2) Spina bifida Status: Chronic Current Visit: Yes Code(s): Q05.9 - Spina bifida, unspecified Type of Wound Chief Complaint: Lower back ulcer. History of Wound: Ms. Crews is a 43-year-old who presents today with a lower back ulcer noted just over a week ago. He denies any known precipitating factor. Has been doing some conservative management at home without any significant imp rovement. Initial drainage noted however none at this time. She denies chills, fever otherwise feeling of unwell. Progress of Wound: Stable. No new concerns at this time. - Physical Exam Vital Signs Temp Pulse Resp BP 98.6 F 105 H 18 120/82 H 11/08/18 08:16 11/08/18 08:16 11/08/18 08:16 11/08/18 08:16 General: Alert, Oriented x3, Cooperative, No apparent distress HEENT: Atraumatic, Normocephalic Oral: Moist Mucosa Neck: Supple Lungs: Normal air movement Extremities: No cyanosis Skin: Ulcer/ Wound Wound Measurements and Assessment WC - Nurse 1 - General Ulcer Measurement Start: 11/08/18 08:16 Freq: Status: Active Protocol: Activity Type Activity Date Activity User E-Sign Co-Sign Detail Recorded Client Recorded Date Recorded By Document 11/08/18 08:16 DV [id number] 11/08/18 08:23 DV 11/08/18 08:16 Wound Center Nurse 1 [Ulcer Assessment] #3- LUMBAR AREA -Combined with other wound No -Current Size (cm) - Length 1.5 -Current Size (cm) - Width 1.0 -Current Size (cm) - Depth 0.1 -Total Square Cm 1.50 -Photo Taken No -Epithelialization None Present -Tunneling No -Undermining/Tunneling No -Circular Undermining No -Classification - Thickness Full Thickness without Exposed Support Structure -Wound Margin Flat & Intact -Granulation Amt Small (1-33%) -Granulation Quality Pale Red -Slough/Fibrin Yes -Necrosis Amt Medium (34-66%) -Necrotic Tissue Type Adherent Slough -Structure Exposed None/Limited to Skin Breakdown -Texture (Patience-wound Skin Appearance) No Abnormality Assessed -Moisture (Patience-wound Skin Appearance No Abnormality ) Assessed -Color (Patience-wound Skin Appearance) No Abnormality Assessed -Temperature (Patience-wound Skin No Abnormality Appearance) (Pt Warm) -Tenderness on Palpation (Patience-wound No Skin Appearance) -Ulcer Cleansing Rinsed/ Irrigated with Saline -Foul Odor after Cleansing No -Anesthetic Used 5% Lidocaine Gel WC - Nurse 2 - General Ulcer CM Notes Start: 11/08/18 08:16 Freq: Status: Active Protocol: Activity Type Activity Date Activity User E-Sign Co-Sign Detail Recorded Client Recorded Date Recorded By Document 11/08/18 08:32 MW [id number] 11/08/18 08:35 MW 11/08/18 08:32 Wound Center Nurse 2 [Procedure/Treatment] -Time 08:34 -Correct Patient Yes -Correct Side, Site, Position Yes -Correct Procedure Yes -Procedure Performed Yes -Type of Procedure Debridement -Clinical Debridement Subcutaneous -Post Debridement Size (cm) - Length 1.5 -Post Debridement Size (cm) - Width 1.0 -Post Debridement Size (cm) - Depth 0.1 -Total Square Cm 1.50 -Wound/Ulcer Outcome Not Healed -Ulcer Cleansing Rinsed/ Irrigated with Saline -Foul Odor after Cleansing No -Bioengineered Tissue No -Bleeding Controlled with Pressure -Offloading No -Treatment Response Procedure Tolerated Well [See Physician Procedure note for Specifics] Pain Scale: 0-10 Numeric [Pain] -Is Patient Pain Free? Yes Neurological: Cranial nerves II-XII grossly intact Psych/Mental Status: Normal Affect Debridement Note Post-Debridement Measurements/Treatment WC - Nurse 2 - General Ulcer CM Notes Start: 11/08/18 08:16 Freq: Status: Active Protocol: Activity Type Activity Date Activity User E-Sign Co-Sign Detail Recorded Client Recorded Date Recorded By Document 11/08/18 08:32 MW [id number] 11/08/18 08:35 MW 11/08/18 08:32 Wound Center Nurse 2 #3- LUMBAR AREA -Time 08:34 -Correct Patient Yes -Correct Side, Site, Position Yes -Correct Procedure Yes -Procedure Performed Yes -Type of Procedure Debridement -Clinical Debridement Subcutaneous -Post Debridement Size (cm) - Length 1.5 -Post Debridement Size (cm) - Width 1.0 -Post Debridement Size (cm) - Depth 0.1 -Total Square Cm 1.50 -Wound/Ulcer Outcome Not Healed -Ulcer Cleansing Rinsed/ Irrigated with Saline -Foul Odor after Cleansing No -Bioengineered Tissue No -Bleeding Controlled with Pressure -Offloading No -Treatment Response Procedure Tolerated Well Pain Scale: 0-10 Numeric Is Patient Pain Free? Yes Wound debrided: Mid lower back Wound Grade/Stage: Stage III Type of Debridement: Excisional debridement Anesthesia Used: 4% Lidocaine Solution Depth: Down to and including healthy tissue, in the subcutaneous layer Percentage of wound debrided: 100 Instrument Used: 3mm curette Tissue Removed: Slough and devitalized tissue Severity: Fat Layer Exposed Amount of bleeding with debridement: Mild Bleeding Controlled with: Pressure Patient tolerated procedure well Assessment/Plan Active Problems (Last Updated 03/11/18 @ 14:54 by Cecil Butts DO) Spina bifida (Chronic) Decubitus ulcer of lower back, stage 3 (Chronic) Assessment: Same as above. Plan: Mild improvement in the past week. Debridement done as documented above, procedure was well-tolerated. Switch to Pomogran daily with adaptic over top. Offloading recommended. Increased protein intake also strongly recommended. All her questions were answered and she was advised to call with any further questions or concerns. Follow-up with Dr Lazaro next week. This note was generated with [employer] software. It may contain incorrect words, spelling, and punctuation that were not noted in checking the note before krystal miguel
[2018-11-17 13:28] VITALS: BP 124/94; PULSE 107; RESP 16; TEMP 37.3; BMI 29.0
--- NOTE | 2018-11-17 19:06 | PCM.WC.HP ---
(1) Spina bifida Status: Chronic Current Visit: Yes Qualifiers: Spinal region: unspecified Presence of hydrocephalus: unspecified hydrocephalus presence Qualified Code(s): Q05.9 - Spina bifida, unspecified Code(s): Q05.9 - Spina bifida, unspecified (2) Decubitus ulcer of lower back, stage 3 Status: Chronic Current Visit: Yes Code(s): L89.103 - Pressure ulcer of unspecified part of back, stage 3 Comment: midline History of Present Illness Date of Service: 11/17/18 Chief Complaint: Lower back ulcer. History of Wound: Ms. Crews is a 43-year-old who is seen today as a courtesy visit for Dr. Kinney with a lower back ulcer noted the beginning of October. She denies any known precipitating factor but does have spina bifida and spends a significant amount of time in a wheelchair. She has had ulcers in this area in the past. She initially had been doing some conservative management at home without any significant improvement. Initially there was drainage noted however there is not any significant drainage at this time. She denies chills, fever otherwise feeling of unwell. She has been tolerating traetment with Promogran moistened and changed every other day. She has been off work for several weeks. Past Medical History Past Medical History: Chronic Problems (Last Updated 03/11/18 @ 14:54 by Cecil Butts DO) Edema of right lower extremity (Chronic) Spina bifida (Chronic) Decubitus ulcer of lower back, stage 3 (Chronic) midline Surgical History: cholecystectomy, - - vertebral rods. ileostomy Allergies/Adverse Reactions: Allergies amoxicillin [From Augmentin] Adverse Reaction (Verified 10/18/18 11:30) Diarrhea azithromycin [From Zithromax Z-Turner] Adverse Reaction (Verified 10/18/18 11:30) Diarrhea ciprofloxacin [From Cipro] Adverse Reaction (Verified 10/18/18 11:30) Pain in joints clavulanic acid [From Augmentin] Adverse Reaction (Verified 10/18/18 11:30) Diarrhea Home Medications: Ambulatory Orders Medication Instructions Recorded Multivitamins,Therapeutic 1 tablet PO QHS 04/24/13 [Multivitamin] Oxybutynin Chloride [Ditropan Xl] 15 mg PO QHS 04/24/13 Paroxetine [Paxil] 40 mg PO QHS 04/24/13 Bacillus Coagulans [Probiotic] 1 each PO QHS 03/11/18 Omeprazole [Prilosec] mg PO QHS 03/11/18 Aspirin [Aspirin, Baby] 81 mg PO DAILY@0800 tab.chew 03/14/18 Metoprolol Tartrate [Lopressor mg PO BID 04/11/18 (Beta Jackie)] - Family History Maternal - Lives: With Family Smoking Status: Never smoker Tobacco Use: Non-smoker Alcohol: None Drugs: None Review of Systems Constitutional: Denies: Chills, Fever, Weight Change Eyes: Denies: Pain, Vision Change HEENT: Denies: Difficulty Hearing, Difficulty Swallowing, Sinus Congestion Cardiovascular: Denies: Chest Pain, Palpitations Respiratory: Denies: Cough, Shortness of Breath Gastrointestinal: Denies: Diarrhea, Nausea, Vomiting Genitourinary: Denies: Dysuria, Hematuria Skin: Reports: Wounds Endocrine: Denies: Heat/ Cold Intolerance, Polydipsia, Polyuria Hematologic/ Lymphatic: Denies: Easy Bruising, Easy Bleeding - Physical Exam Vital Signs Temp Pulse Resp BP 99.1 F 107 H 16 124/94 H 11/17/18 13:28 11/17/18 13:28 11/17/18 13:28 11/17/18 13:28 General: Alert, Oriented x3, Cooperative, No apparent distress HEENT: Atraumatic, Normocephalic Oral: Moist Mucosa Neck: Supple Lungs: Clear to auscultation Cardiovascular: Regular rate, Regular Rhythm Abdomen: Obese Extremities: Edema Skin: Ulcer/ Wound Wound Measurements and Assessment WC - Nurse 1 - General Ulcer Measurement Start: 11/08/18 08:16 Freq: Status: Active Protocol: Activity Type Activity Date Activity User E-Sign Co-Sign Detail Recorded Client Recorded Date Recorded By Document 11/17/18 13:28 [facility] [id number] 11/17/18 13:36 [facility] 11/17/18 13:28 Wound Center Nurse 1 [Ulcer Assessment] #3- LUMBAR AREA -Combined with other wound No -Current Size (cm) - Length 1.3 -Current Size (cm) - Width 1.4 -Current Size (cm) - Depth 0.2 -Total Square Cm 1.82 -Date of Last Picture (Recall this 11/17/18 field) -Photo Taken Yes -Epithelialization None Present -Tunneling No -Undermining/Tunneling No -Circular Undermining No -Exudate Amt Small -Exudate Type Serosanguineous -Wound Margin Flat & Intact -Granulation Amt Small (1-33%) -Granulation Quality Red -Slough/Fibrin Yes -Necrosis Amt Large (67-100%) -Necrotic Tissue Type Adherent Slough -Texture (Patience-wound Skin Appearance) Assessed Scarring -Moisture (Patience-wound Skin Appearance Assessed ) -Color (Patience-wound Skin Appearance) Assessed Erythema -Temperature (Patience-wound Skin No Abnormality Appearance) (Pt Warm) -Tenderness on Palpation (Patience-wound No Skin Appearance) -Ulcer Cleansing Rinsed/ Irrigated with Saline -Foul Odor after Cleansing No -Anesthetic Used 5% Lidocaine Gel WC - Nurse 2 - General Ulcer CM Notes Start: 11/08/18 08:16 Freq: Status: Active Protocol: Activity Type Activity Date Activity User E-Sign Co-Sign Detail Recorded Client Recorded Date Recorded By Document 11/17/18 14:19 DV [id number] 11/17/18 14:28 DV 11/17/18 14:19 Wound Center Nurse 2 [Procedure/Treatment] -Time 14:20 -Correct Patient Yes -Correct Side, Site, Position Yes -Correct Procedure Yes -Procedure Performed Yes -Type of Procedure Debridement -Clinical Debridement Subcutaneous -Post Debridement Size (cm) - Length 1.4 -Post Debridement Size (cm) - Width 1.3 -Post Debridement Size (cm) - Depth 0.1 -Total Square Cm 1.82 -Wound/Ulcer Outcome Not Healed -Ulcer Cleansing Rinsed/ Irrigated with Saline -Foul Odor after Cleansing No -Bioengineered Tissue No -Bleeding Controlled with Pressure -Offloading Yes -Treatment Response Procedure Tolerated Well [See Physician Procedure note for Specifics] Pain Scale: 0-10 Numeric [Pain] -Is Patient Pain Free? Yes Psych/Mental Status: Normal Affect, Appropriate Debridement Note Post-Debridement Measurements/Treatment - Nurse 2 - General Ulcer CM Notes Start: 11/08/18 08:16 Freq: Status: Active Protocol: Activity Type Activity Date Activity User E-Sign Co-Sign Detail Recorded Client Recorded Date Recorded By Document 11/08/18 08:32 MW [id number] 11/08/18 08:35 MW Document 11/17/18 14:19 DV [id number] 11/17/18 14:28 DV 11/08/18 11/17/18 08:32 14:19 Wound Center Nurse 2 #3- LUMBAR AREA -Time 08:34 14:20 -Correct Patient Yes Yes -Correct Side, Site, Position Yes Yes -Correct Procedure Yes Yes -Procedure Performed Yes Yes -Type of Procedure Debridement Debridement -Clinical Debridement Subcutaneous Subcutaneous -Post Debridement Size (cm) - Length 1.5 1.4 -Post Debridement Size (cm) - Width 1.0 1.3 -Post Debridement Size (cm) - Depth 0.1 0.1 -Total Square Cm 1.50 1.82 -Wound/Ulcer Outcome Not Healed Not Healed -Ulcer Cleansing Rinsed/ Rinsed/ Irrigated with Irrigated with Saline Saline -Foul Odor after Cleansing No No -Bioengineered Tissue No No -Bleeding Controlled with Pressure Pressure -Offloading No Yes -Treatment Response Procedure Procedure Tolerated Well Tolerated Well Pain Scale: 0-10 Numeric Is Patient Pain Free? Yes Yes Wound debrided: lumbar area midline Laterality: Not Applicable Wound Grade/Stage: Stage 3 Type of Debridement: Excisional debridement Anesthesia Used: 4% Lidocaine Solution, 5% Lidocaine Gel Depth: Down to and including healthy tissue, in the subcutaneous layer Percentage of wound debrided: 100 Instrument Used: 5mm curette Tissue Removed: yellow slough, devitalized tissue Severity: Fat Layer Exposed Amount of bleeding with debridement: Mild Bleeding Controlled with: Compression and gauze Patient tolerated procedure well Assessment/Plan Active Problems (Last Updated 03/11/18 @ 14:54 by Cecil Butts DO) Spina bifida (Chronic) Decubitus ulcer of lower back, stage 3 (Chronic) midline Assessment: Same as above. Plan: Mild improvement in the past week. Subcutaneous debridement done as documented above, procedure was well-tolerated. Continue with Promogran daily moistened with hydrogel with adaptic over top. Offloading recommended. She was given release to return to work but will need to offload her buttocks for 30 minutes every 3 hours by lying on her side or stomach which she states they can accomodate. Increased protein intake also strongly recommended. All her questions were answered and she was advised to call with any further questions or concerns. Follow-up in 1 week. This note was generated with [employer] software. It may contain incorrect words, spelling, and punctuation that were not noted in checking the note before signing.
--- NOTE | 2018-11-17 19:10 | HP.PCM_ITS ---
(1) Spina bifida Status: Chronic Current Visit: Yes Qualifiers: Spinal region: unspecified Presence of hydrocephalus: unspecified hydrocephalus presence Qualified Code(s): Q05.9 - Spina bifida, unspecified Code(s): Q05.9 - Spina bifida, unspecified (2) Decubitus ulcer of lower back, stage 3 Status: Chronic Current Visit: Yes Code(s): L89.103 - Pressure ulcer of unspecified part of back, stage 3 Comment: midline History of Present Illness Date of Service: 11/17/18 Chief Complaint: Lower back ulcer. History of Wound: Ms. Crews is a 43-year-old who is seen today as a courtesy visit for Dr. Kinney with a lower back ulcer noted the beginning of October. She denies any known precipitating factor but does have spina bifida and spends a significant amount of time in a wheelchair. She has had ulcers in this area in the past. She initially had been doing some conservative management at home without any significant improvement. Initially there was drainage noted however there is not any significant drainage at this time. She denies chills, fever otherwise feeling of unwell. She has been tolerating traetment with Promogran moistened and changed every other day. She has been off work for several weeks. Past Medical History Past Medical History: Chronic Problems (Last Updated 03/11/18 @ 14:54 by Cecil Butts DO) Edema of right lower extremity (Chronic) Spina bifida (Chronic) Decubitus ulcer of lower back, stage 3 (Chronic) midline Surgical History: cholecystectomy, - - vertebral rods. ileostomy Allergies/Adverse Reactions: Allergies amoxicillin [From Augmentin] Adverse Reaction (Verified 10/18/18 11:30) Diarrhea azithromycin [From Zithromax Z-Turner] Adverse Reaction (Verified 10/18/18 11:30) Diarrhea ciprofloxacin [From Cipro] Adverse Reaction (Verified 10/18/18 11:30) Pain in joints clavulanic acid [From Augmentin] Adverse Reaction (Verified 10/18/18 11:30) Diarrhea Home Medications: Ambulatory Orders Medication Instructions Recorded Multivitamins,Therapeutic 1 tablet PO QHS 04/24/13 [Multivitamin] Oxybutynin Chloride [Ditropan Xl] 15 mg PO QHS 04/24/13 Paroxetine [Paxil] 40 mg PO QHS 04/24/13 Bacillus Coagulans [Probiotic] 1 each PO QHS 03/11/18 Omeprazole [Prilosec] mg PO QHS 03/11/18 Aspirin [Aspirin, Baby] 81 mg PO DAILY@0800 tab.chew 03/14/18 Metoprolol Tartrate [Lopressor mg PO BID 04/11/18 (Beta Jackie)] - Family History Maternal - Lives: With Family Smoking Status: Never smoker Tobacco Use: Non-smoker Alcohol: None Drugs: None Review of Systems Constitutional: Denies: Chills, Fever, Weight Change Eyes: Denies: Pain, Vision Change HEENT: Denies: Difficulty Hearing, Difficulty Swallowing, Sinus Congestion Cardiovascular: Denies: Chest Pain, Palpitations Respiratory: Denies: Cough, Shortness of Breath Gastrointestinal: Denies: Diarrhea, Nausea, Vomiting Genitourinary: Denies: Dysuria, Hematuria Skin: Reports: Wounds Endocrine: Denies: Heat/ Cold Intolerance, Polydipsia, Polyuria Hematologic/ Lymphatic: Denies: Easy Bruising, Easy Bleeding - Physical Exam Vital Signs Temp Pulse Resp BP 99.1 F 107 H 16 124/94 H 11/17/18 13:28 11/17/18 13:28 11/17/18 13:28 11/17/18 13:28 General: Alert, Oriented x3, Cooperative, No apparent distress HEENT: Atraumatic, Normocephalic Oral: Moist Mucosa Neck: Supple Lungs: Clear to auscultation Cardiovascular: Regular rate, Regular Rhythm Abdomen: Obese Extremities: Edema Skin: Ulcer/ Wound Wound Measurements and Assessment WC - Nurse 1 - General Ulcer Measurement Start: 11/08/18 08:16 Freq: Status: Active Protocol: Activity Type Activity Date Activity User E-Sign Co-Sign Detail Recorded Client Recorded Date Recorded By Document 11/17/18 13:28 [facility] [id number] 11/17/18 13:36 [facility] 11/17/18 13:28 Wound Center Nurse 1 [Ulcer Assessment] #3- LUMBAR AREA -Combined with other wound No -Current Size (cm) - Length 1.3 -Current Size (cm) - Width 1.4 -Current Size (cm) - Depth 0.2 -Total Square Cm 1.82 -Date of Last Picture (Recall this 11/17/18 field) -Photo Taken Yes -Epithelialization None Present -Tunneling No -Undermining/Tunneling No -Circular Undermining No -Exudate Amt Small -Exudate Type Serosanguineous -Wound Margin Flat & Intact -Granulation Amt Small (1-33%) -Granulation Quality Red -Slough/Fibrin Yes -Necrosis Amt Large (67-100%) -Necrotic Tissue Type Adherent Slough -Texture (Patience-wound Skin Appearance) Assessed Scarring -Moisture (Patience-wound Skin Appearance Assessed ) -Color (Patience-wound Skin Appearance) Assessed Erythema -Temperature (Patience-wound Skin No Abnormality Appearance) (Pt Warm) -Tenderness on Palpation (Patience-wound No Skin Appearance) -Ulcer Cleansing Rinsed/ Irrigated with Saline -Foul Odor after Cleansing No -Anesthetic Used 5% Lidocaine Gel WC - Nurse 2 - General Ulcer CM Notes Start: 11/08/18 08:16 Freq: Status: Active Protocol: Activity Type Activity Date Activity User E-Sign Co-Sign Detail Recorded Client Recorded Date Recorded By Document 11/17/18 14:19 DV [id number] 11/17/18 14:28 DV 11/17/18 14:19 Wound Center Nurse 2 [Procedure/Treatment] -Time 14:20 -Correct Patient Yes -Correct Side, Site, Position Yes -Correct Procedure Yes -Procedure Performed Yes -Type of Procedure Debridement -Clinical Debridement Subcutaneous -Post Debridement Size (cm) - Length 1.4 -Post Debridement Size (cm) - Width 1.3 -Post Debridement Size (cm) - Depth 0.1 -Total Square Cm 1.82 -Wound/Ulcer Outcome Not Healed -Ulcer Cleansing Rinsed/ Irrigated with Saline -Foul Odor after Cleansing No -Bioengineered Tissue No -Bleeding Controlled with Pressure -Offloading Yes -Treatment Response Procedure Tolerated Well [See Physician Procedure note for Specifics] Pain Scale: 0-10 Numeric [Pain] -Is Patient Pain Free? Yes Psych/Mental Status: Normal Affect, Appropriate Debridement Note Post-Debridement Measurements/Treatment - Nurse 2 - General Ulcer CM Notes Start: 11/08/18 08:16 Freq: Status: Active Protocol: Activity Type Activity Date Activity User E-Sign Co-Sign Detail Recorded Client Recorded Date Recorded By Document 11/08/18 08:32 MW [id number] 11/08/18 08:35 MW Document 11/17/18 14:19 DV [id number] 11/17/18 14:28 DV 11/08/18 11/17/18 08:32 14:19 Wound Center Nurse 2 #3- LUMBAR AREA -Time 08:34 14:20 -Correct Patient Yes Yes -Correct Side, Site, Position Yes Yes -Correct Procedure Yes Yes -Procedure Performed Yes Yes -Type of Procedure Debridement Debridement -Clinical Debridement Subcutaneous Subcutaneous -Post Debridement Size (cm) - Length 1.5 1.4 -Post Debridement Size (cm) - Width 1.0 1.3 -Post Debridement Size (cm) - Depth 0.1 0.1 -Total Square Cm 1.50 1.82 -Wound/Ulcer Outcome Not Healed Not Healed -Ulcer Cleansing Rinsed/ Rinsed/ Irrigated with Irrigated with Saline Saline -Foul Odor after Cleansing No No -Bioengineered Tissue No No -Bleeding Controlled with Pressure Pressure -Offloading No Yes -Treatment Response Procedure Procedure Tolerated Well Tolerated Well Pain Scale: 0-10 Numeric Is Patient Pain Free? Yes Yes Wound debrided: lumbar area midline Laterality: Not Applicable Wound Grade/Stage: Stage 3 Type of Debridement: Excisional debridement Anesthesia Used: 4% Lidocaine Solution, 5% Lidocaine Gel Depth: Down to and including healthy tissue, in the subcutaneous layer Percentage of wound debrided: 100 Instrument Used: 5mm curette Tissue Removed: yellow slough, devitalized tissue Severity: Fat Layer Exposed Amount of bleeding with debridement: Mild Bleeding Controlled with: Compression and gauze Patient tolerated procedure well Assessment/Plan Active Problems (Last Updated 03/11/18 @ 14:54 by Cecil Butts DO) Spina bifida (Chronic) Decubitus ulcer of lower back, stage 3 (Chronic) midline Assessment: Same as above. Plan: Mild improvement in the past week. Subcutaneous debridement done as documented above, procedure was well-tolerated. Continue with Promogran daily moistened with hydrogel with adaptic over top. Offloading recommended. She was given release to return to work but will need to offload her buttocks for 30 minutes every 3 hours by lying on her side or stomach which she states they can accomodate. Increased protein intake also strongly recommended. All her questions were answered and she was advised to call with any further questions or concerns. Follow-up in 1 week. This note was generated with [employer] software. It may contain incorrect words, spelling, and punctuation that were not noted in checking the note before signing.
[2018-11-24 08:26] VITALS: BP 121/71; PULSE 74; RESP 16; TEMP 36.6; BMI 29.0
--- NOTE | 2018-11-24 10:51 | PCM.WC.PN ---
(1) Spina bifida Status: Chronic Current Visit: Yes Qualifiers: Spinal region: unspecified Presence of hydrocephalus: unspecified hydrocephalus presence Qualified Code(s): Q05.9 - Spina bifida, unspecified Code(s): Q05.9 - Spina bifida, unspecified (2) Decubitus ulcer of lower back, stage 3 Status: Chronic Current Visit: Yes Code(s): L89.103 - Pressure ulcer of unspecified part of back, stage 3 Comment: midline Type of Wound Date of Service: 11/24/18 Chief Complaint: Lower back ulcer. History of Wound: Ms. Crews is a 43-year-old who is seen today as a courtesy visit for Dr. Kinney with a lower back ulcer noted the beginning of October. She denies any known precipitating factor but does have spina bifida and spends a significant amount of time in a wheelchair. She has had ulcers in this area in the past. She initially had been doing some conservative management at home without any significant improvement. Initially there was drainage noted however there is not any significant drainage at this time. She denies chills, fever otherwise feeling of unwell. She has been tolerating teatment with Promogran moistened and changed every other day. She has been off work for several weeks. Progress of Wound: Her wound is slightly deeper this week but improved in size. She went to work and her caregiver states that they don't turn her like they should or have her rest there as instructed. - Physical Exam Vital Signs Temp Pulse Resp BP 97.8 F 74 16 121/71 H 11/24/18 08:26 11/24/18 08:26 11/24/18 08:26 11/24/18 08:26 General: Alert, Oriented x3, Cooperative, No apparent distress HEENT: Atraumatic, Normocephalic Oral: Moist Mucosa Abdomen: Obese Skin: Ulcer/ Wound Wound Measurements and Assessment WC - Nurse 1 - General Ulcer Measurement Start: 11/08/18 08:16 Freq: Status: Active Protocol: Activity Type Activity Date Activity User E-Sign Co-Sign Detail Recorded Client Recorded Date Recorded By Document 11/24/18 08:26 [id number] 11/24/18 08:35 11/24/18 08:26 Wound Center Nurse 1 [Ulcer Assessment] #3- LUMBAR AREA -Combined with other wound No -Photo Taken No -Epithelialization None Present -Undermining/Tunneling No -Circular Undermining No -Change in Wound Grade/Stage No Query Text:If change please identify the Stage/Grade in the comment (ie. S2 G3) -Exudate Amt Small -Exudate Type Purulent -Wound Margin Well Defined, Not Attached -Granulation Amt Small (1-33%) -Granulation Quality [place] -Slough/Fibrin Yes -Necrosis Amt None Present (0 %) -Structure Exposed None/Limited to Skin Breakdown -Texture (Patience-wound Skin Appearance) Friable -Moisture (Patience-wound Skin Appearance Weeping ) -Color (Patience-wound Skin Appearance) Palor -Temperature (Patience-wound Skin No Abnormality Appearance) (Pt Warm) -Tenderness on Palpation (Patience-wound No Skin Appearance) -Ulcer Cleansing Rinsed/ Irrigated with Saline -Foul Odor after Cleansing No -Anesthetic Used 5% Lidocaine Gel [Edema Assessment] -Lower Limb Edema Present NA WC - Nurse 2 - General Ulcer CM Notes Start: 11/08/18 08:16 Freq: Status: Active Protocol: Activity Type Activity Date Activity User E-Sign Co-Sign Detail Recorded Client Recorded Date Recorded By Document 11/24/18 08:46 AN [id number] 11/24/18 08:50 AN 11/24/18 08:46 Wound Center Nurse 2 [Procedure/Treatment] #3- LUMBAR AREA -Time 08:46 -Correct Patient Yes -Correct Side, Site, Position Yes -Correct Procedure Yes -Procedure Performed Yes -Type of Procedure Debridement -Clinical Debridement Subcutaneous -Post Debridement Size (cm) - Length 1.4 -Post Debridement Size (cm) - Width 1.2 -Post Debridement Size (cm) - Depth 0.3 -Total Square Cm 1.68 -Wound/Ulcer Outcome Not Healed -Ulcer Cleansing Rinsed/ Irrigated with Saline -Foul Odor after Cleansing No -Bioengineered Tissue No -Offloading Yes -Treatment Response Procedure Tolerated Well [See Physician Procedure note for Specifics] Pain Scale: 0-10 Numeric [Pain] -Is Patient Pain Free? Yes Psych/Mental Status: Normal Affect, Appropriate Debridement Note Post-Debridement Measurements/Treatment WC - Nurse 2 - General Ulcer CM Notes Start: 11/08/18 08:16 Freq: Status: Active Protocol: Activity Type Activity Date Activity User E-Sign Co-Sign Detail Recorded Client Recorded Date Recorded By Document 11/08/18 08:32 MW [id number] 11/08/18 08:35 MW Document 11/17/18 14:19 DV [id number] 11/17/18 14:28 DV Document 11/24/18 08:46 AN [id number] 11/24/18 08:50 AN 11/08/18 11/17/18 11/24/18 08:32 14:19 08:46 Wound Center Nurse 2 #3- LUMBAR AREA -Time 08:34 14:20 08:46 -Correct Patient Yes Yes Yes -Correct Side, Site, Position Yes Yes Yes -Correct Procedure Yes Yes Yes -Procedure Performed Yes Yes Yes -Type of Procedure Debridement Debridement Debridement -Clinical Debridement Subcutaneous Subcutaneous Subcutaneous -Post Debridement Size (cm) - Length 1.5 1.4 1.4 -Post Debridement Size (cm) - Width 1.0 1.3 1.2 -Post Debridement Size (cm) - Depth 0.1 0.1 0.3 -Total Square Cm 1.50 1.82 1.68 -Wound/Ulcer Outcome Not Healed Not Healed Not Healed -Ulcer Cleansing Rinsed/ Rinsed/ Rinsed/ Irrigated with Irrigated with Irrigated with Saline Saline Saline -Foul Odor after Cleansing No No No -Bioengineered Tissue No No No -Bleeding Controlled with Pressure Pressure -Offloading No Yes Yes -Treatment Response Procedure Procedure Procedure Tolerated Well Tolerated Well Tolerated Well Pain Scale: 0-10 Numeric Is Patient Pain Free? Yes Yes Yes Wound debrided: lumbar area Laterality: Not Applicable Wound Grade/Stage: Stage 3 Type of Debridement: Excisional debridement Anesthesia Used: 4% Lidocaine Solution, 5% Lidocaine Gel Depth: Down to and including healthy tissue, in the subcutaneous layer Percentage of wound debrided: 100 Instrument Used: 5mm curette Tissue Removed: yellow slough, devitalized tissue Severity: Fat Layer Exposed Amount of bleeding with debridement: Mild Bleeding Controlled with: Compression and gauze Patient tolerated procedure well Assessment/Plan Active Problems (Last Updated 03/11/18 @ 14:54 by Cecil Butts DO) Spina bifida (Chronic) Decubitus ulcer of lower back, stage 3 (Chronic) midline Assessment: Same as above. Plan: Mild improvement in the past week. Subcutaneous debridement done as documented above, procedure was well-tolerated. Continue with Promogran daily moistened with adaptic over top. Offloading recommended. She. was given a note to be off work untul further notice. All her questions were answered and she was advised to call with any further questions or concerns. Follow-up in 1 week. This note was generated with [employer] software. It may contain incorrect words, spelling, and punctuation that were not noted in checking the note before signing.
[2018-11-30 10:54] VITALS: BP 113/76; PULSE 69; RESP 16; TEMP 35.9; BMI 29.0
--- NOTE | 2018-11-30 19:49 | PN.PCM_ITS ---
(1) Decubitus ulcer of lower back, stage 3 Status: Chronic Current Visit: Yes Code(s): L89.103 - Pressure ulcer of unspecified part of back, stage 3 Comment: midline (2) Spina bifida Status: Chronic Current Visit: Yes Qualifiers: Spinal region: unspecified Presence of hydrocephalus: unspecified hydrocephalus presence Qualified Code(s): Q05.9 - Spina bifida, unspecified Code(s): Q05.9 - Spina bifida, unspecified Type of Wound Date of Service: 11/30/18 Chief Complaint: Lower back ulcer. History of Wound: Ms. Crews is a 43-year-old who is seen today as a courtesy visit for Dr. Kinney with a lower back ulcer noted the beginning of October. She denies any known precipitating factor but does have spina bifida and spends a significant amount of time in a wheelchair. She has had ulcers in this area in the past. She initially had been doing some conservative management at home without any significant improvement. Initially there was drainage noted however there is not any significant drainage at this time. She denies chills, fever otherwise feeling of unwell. She has been tolerating teatment with Promogran moistened and changed every other day. She has been off work for several weeks. Progress of Wound: No new concerns. - Physical Exam Vital Signs Temp Pulse Resp BP 96.6 F L 69 16 113/76 11/30/18 10:54 11/30/18 10:54 11/30/18 10:54 11/30/18 10:54 General: Alert, Oriented x3, Cooperative, No apparent distress HEENT: Atraumatic, Normocephalic Oral: Moist Mucosa Neck: Supple Lungs: Normal air movement Abdomen: Non Tender, Obese Wound Measurements and Assessment WC - Nurse 1 - General Ulcer Measurement Start: 11/08/18 08:16 Freq: Status: Active Protocol: Activity Type Activity Date Activity User E-Sign Co-Sign Detail Recorded Client Recorded Date Recorded By Document 11/30/18 10:54 [facility] [id number] 11/30/18 10:59 [facility] 11/30/18 10:54 Wound Center Nurse 1 [Ulcer Assessment] #3- LUMBAR AREA -Combined with other wound No -Current Size (cm) - Length 1.5 -Current Size (cm) - Width 0.8 -Current Size (cm) - Depth 0.4 -Total Square Cm 1.20 -Photo Taken No -Epithelialization None Present -Tunneling No -Undermining/Tunneling No -Circular Undermining No -Exudate Amt Small -Exudate Type Sanguineous -Wound Margin Distinct, Outline Attached -Granulation Amt Medium (34-66%) -Granulation Quality Red -Slough/Fibrin Yes -Necrosis Amt Small (1-33%) -Necrotic Tissue Type Adherent Slough -Texture (Patience-wound Skin Appearance) Assessed, Scarring -Moisture (Patience-wound Skin Appearance Assessed ) -Color (Patience-wound Skin Appearance) Assessed -Temperature (Patience-wound Skin No Abnormality Appearance) (Pt Warm) -Tenderness on Palpation (Patience-wound No Skin Appearance) -Ulcer Cleansing Rinsed/ Irrigated with Saline -Foul Odor after Cleansing No -Anesthetic Used 5% Lidocaine Gel WC - Nurse 2 - General Ulcer CM Notes Start: 11/08/18 08:16 Freq: Status: Active Protocol: Activity Type Activity Date Activity User E-Sign Co-Sign Detail Recorded Client Recorded Date Recorded By Document 11/30/18 11:14 MW [id number] 11/30/18 11:19 MW 11/30/18 11:14 Wound Center Nurse 2 [Procedure/Treatment] -Time 11:15 -Correct Patient Yes -Correct Side, Site, Position Yes -Correct Procedure Yes -Procedure Performed Yes -Type of Procedure Debridement -Clinical Debridement Subcutaneous -Post Debridement Size (cm) - Length 1.5 -Post Debridement Size (cm) - Width 1.0 -Post Debridement Size (cm) - Depth 0.3 -Total Square Cm 1.50 -Wound/Ulcer Outcome Not Healed -Ulcer Cleansing Rinsed/ Irrigated with Saline -Foul Odor after Cleansing No -Bioengineered Tissue No -Bleeding Controlled with Pressure -Offloading No -Treatment Response Procedure Tolerated Well [See Physician Procedure note for Specifics] Pain Scale: 0-10 Numeric [Pain] -Is Patient Pain Free? Yes Neurological: Cranial nerves II-XII grossly intact Debridement Note Post-Debridement Measurements/Treatment WC - Nurse 2 - General Ulcer CM Notes Start: 11/08/18 08:16 Freq: Status: Active Protocol: Activity Type Activity Date Activity User E-Sign Co-Sign Detail Recorded Client Recorded Date Recorded By Document 06/05/19 08:32 MW [id number] 11/08/18 08:35 MW Document 11/17/18 14:19 DV [id number] 11/17/18 14:28 DV Document 11/24/18 08:46 AN [id number] 11/24/18 08:50 AN Document 11/30/18 11:14 MW [id number] 11/30/18 11:19 MW 11/08/18 11/17/18 11/24/18 08:32 14:19 08:46 Wound Center Nurse 2 #3- LUMBAR AREA -Time 08:34 14:20 08:46 -Correct Patient Yes Yes Yes -Correct Side, Site, Position Yes Yes Yes -Correct Procedure Yes Yes Yes -Procedure Performed Yes Yes Yes -Type of Procedure Debridement Debridement Debridement -Clinical Debridement Subcutaneous Subcutaneous Subcutaneous -Post Debridement Size (cm) - Length 1.5 1.4 1.4 -Post Debridement Size (cm) - Width 1.0 1.3 1.2 -Post Debridement Size (cm) - Depth 0.1 0.1 0.3 -Total Square Cm 1.50 1.82 1.68 -Wound/Ulcer Outcome Not Healed Not Healed Not Healed -Ulcer Cleansing Rinsed/ Rinsed/ Rinsed/ Irrigated with Irrigated with Irrigated with Saline Saline Saline -Foul Odor after Cleansing No No No -Bioengineered Tissue No No No -Bleeding Controlled with Pressure Pressure -Offloading No Yes Yes -Treatment Response Procedure Procedure Procedure Tolerated Well Tolerated Well Tolerated Well Pain Scale: 0-10 Numeric Is Patient Pain Free? Yes Yes Yes 11/30/18 11:14 Wound Center Nurse 2 #3- LUMBAR AREA -Time 11:15 -Correct Patient Yes -Correct Side, Site, Position Yes -Correct Procedure Yes -Procedure Performed Yes -Type of Procedure Debridement -Clinical Debridement Subcutaneous -Post Debridement Size (cm) - Length 1.5 -Post Debridement Size (cm) - Width 1.0 -Post Debridement Size (cm) - Depth 0.3 -Total Square Cm 1.50 -Wound/Ulcer Outcome Not Healed -Ulcer Cleansing Rinsed/ Irrigated with Saline -Foul Odor after Cleansing No -Bioengineered Tissue No -Bleeding Controlled with Pressure -Offloading No -Treatment Response Procedure Tolerated Well Pain Scale: 0-10 Numeric Is Patient Pain Free? Yes Wound debrided: Mid lower back Wound Grade/Stage: Stage III Type of Debridement: Excisional debridement Anesthesia Used: 4% Lidocaine Solution Depth: Down to and including healthy tissue, in the subcutaneous layer Percentage of wound debrided: 100 Instrument Used: 3mm curette Tissue Removed: Slough and devitalized tissue Severity: Fat Layer Exposed Amount of bleeding with debridement: Mild Bleeding Controlled with: Pressure Patient tolerated procedure well Assessment/Plan Active Problems (Last Updated 03/11/18 @ 14:54 by Cecil Butts DO) Spina bifida (Chronic) Decubitus ulcer of lower back, stage 3 (Chronic) midline Assessment: Same as above. Plan: No significant improvement in the past week, debridement done as documented above, procedure was well-tolerated. Has used Promogran for 5 weeks without any significant improvement at this point, I believe she will benefit from a skin substitute/advanced wound care. We will apply for this. For now, continue Promogran with Adaptic over top, change daily. Continue offloading. Increase protein intake also recommended. Questions were answered and they were advised to call with any further questions or concerns. Follow-up in 1 week. This note was generated with [employer] dictation software. It may contain incorrect words, spelling, and punctuation that were not noted in checking the note before signing.
== END 2018-12-03 23:59 ==
LOC: WC 10:30
PROVIDERS: Family Provider Family Medicine; PCP Family Medicine; Visit Provider Internal Medicine
DX: L89.103 Pressure ulcer of unspecified part of back, stage 3 (principal); Q05.9 Spina bifida, unspecified; Z79.82 Long term (current) use of aspirin; Z79.899 Other long term (current) drug therapy; R60.0 Localized edema
CPT/HCPCS: 11042

== ENCOUNTER → 2018-12-27 11:35 | Outpatient (CLI) | payer MEDICARE, MEDICAID, SELFPAY ==
[2018-12-27 09:56] VITALS: BMI 29.0
== END ==
PROVIDERS: Family Provider Family Medicine; PCP Family Medicine; Referring Provider Urology; Visit Provider Urology
DX: N39.0 Urinary tract infection, site not specified (principal)
CPT/HCPCS: 87077; 87086; 87088; 87186

== ENCOUNTER 2019-01-03 09:45 | Outpatient (RCR) | payer MEDICARE, MEDICAID, SELFPAY ==
[2018-12-04 00:54] VITALS: BP 113/76; PULSE 69; RESP 16; TEMP 35.9
[2018-12-06 09:00] VITALS: BP 141/91; PULSE 95; RESP 16; TEMP 37.7; BMI 29.0
--- NOTE | 2018-12-06 10:27 | PN.PCM_ITS ---
(1) Decubitus ulcer of lower back, stage 3 Status: Chronic Current Visit: Yes Code(s): L89.103 - Pressure ulcer of unspecified part of back, stage 3 Comment: midline (2) Spina bifida Status: Chronic Current Visit: Yes Qualifiers: Code(s): Q05.9 - Spina bifida, unspecified Type of Wound Date of Service: 12/06/18 Chief Complaint: right foot wound healed History of Wound: Ms. Crews is a 43-year-old who is seen today as a courtesy visit for Dr. Kinney with a lower back ulcer noted the beginning of October. She denies any known precipitating factor but does have spina bifida and spends a significant amount of time in a wheelchair. She has had ulcers in this area in the past. She initially had been doing some conservative management at home without any significant improvement. Initially there was drainage noted however there is not any significant drainage at this time. She denies chills, fever otherwise feeling of unwell. She has been tolerating teatment with Promogran moistened and changed every other day. She has been off work for several weeks. Progress of Wound: No new concerns. Now approved for Epifix. She has had 6 week of collagen treatment without significant improvement. - Physical Exam Vital Signs Temp Pulse Resp BP 99.8 F H 95 16 141/91 H 12/06/18 09:00 12/06/18 09:00 12/06/18 09:00 12/06/18 09:00 General: Alert, Oriented x3, Cooperative, No apparent distress HEENT: Atraumatic, Normocephalic Neck: Supple Abdomen: Non Tender, Obese Extremities: No cyanosis Skin: Ulcer/ Wound Wound Measurements and Assessment WC - Nurse 1 - General Ulcer Measurement Start: 12/06/18 09:00 Freq: Status: Active Protocol: Activity Type Activity Date Activity User E-Sign Co-Sign Detail Recorded Client Recorded Date Recorded By Document 12/06/18 09:00 [facility] [id number] 12/06/18 09:08 [facility] 12/06/18 09:00 Wound Center Nurse 1 [Ulcer Assessment] #3- LUMBAR AREA -Combined with other wound No -Current Size (cm) - Length 1.2 -Current Size (cm) - Width 0.7 -Current Size (cm) - Depth 0.5 -Total Square Cm 0.84 -Photo Taken No -Epithelialization None Present -Tunneling No -Undermining/Tunneling No -Circular Undermining No -Exudate Amt Small -Exudate Type Serous -Wound Margin Thickened -Granulation Amt Medium (34-66%) -Granulation Quality Red -Slough/Fibrin Yes -Necrosis Amt Medium (34-66%) -Necrotic Tissue Type Adherent Slough -Texture (Patience-wound Skin Appearance) Assessed, Scarring -Moisture (Patience-wound Skin Appearance Assessed ) -Color (Patience-wound Skin Appearance) Assessed, Erythema -Temperature (Patience-wound Skin No Abnormality Appearance) (Pt Warm) -Tenderness on Palpation (Patience-wound No Skin Appearance) -Ulcer Cleansing Rinsed/ Irrigated with Saline -Foul Odor after Cleansing No -Anesthetic Used 5% Lidocaine Gel WC - Nurse 2 - General Ulcer CM Notes Start: 12/06/18 09:00 Freq: Status: Active Protocol: Activity Type Activity Date Activity User E-Sign Co-Sign Detail Recorded Client Recorded Date Recorded By Document 12/06/18 09:25 MW [id number] 12/06/18 09:34 MW 12/06/18 09:25 Wound Center Nurse 2 [Procedure/Treatment] -Time 09:25 -Correct Patient Yes -Correct Side, Site, Position Yes -Correct Procedure Yes -Procedure Performed Yes -Type of Procedure Debridement -Clinical Debridement Subcutaneous -Post Debridement Size (cm) - Length 1.5 -Post Debridement Size (cm) - Width 1.2 -Post Debridement Size (cm) - Depth 0.3 -Total Square Cm 1.80 -Wound/Ulcer Outcome Not Healed -Ulcer Cleansing Rinsed/ Irrigated with Saline -Foul Odor after Cleansing No -Bioengineered Tissue Yes -Type of bioengineered Tissue EPIFIX -Expiration Date 04/06/23 -Product Lot Number [id number] -Percent Used 100 -Saline Lot Number [id number] -Bleeding Controlled with Pressure -Offloading No -Treatment Response Procedure Tolerated Well [See Physician Procedure note for Specifics] Pain Scale: 0-10 Numeric [Pain] -Is Patient Pain Free? Yes Musculoskeletal: No Muscle Wasting Neurological: Cranial nerves II-XII grossly intact Psych/Mental Status: Normal Affect Debridement Note Post-Debridement Measurements/Treatment WC - Nurse 2 - General Ulcer CM Notes Start: 12/06/18 09:00 Freq: Status: Active Protocol: Activity Type Activity Date Activity User E-Sign Co-Sign Detail Recorded Client Recorded Date Recorded By Document 12/06/18 09:25 MW [id number] 12/06/18 09:34 MW 12/06/18 09:25 Wound Center Nurse 2 #3- LUMBAR AREA -Time 09:25 -Correct Patient Yes -Correct Side, Site, Position Yes -Correct Procedure Yes -Procedure Performed Yes -Type of Procedure Debridement -Clinical Debridement Subcutaneous -Post Debridement Size (cm) - Length 1.5 -Post Debridement Size (cm) - Width 1.2 -Post Debridement Size (cm) - Depth 0.3 -Total Square Cm 1.80 -Wound/Ulcer Outcome Not Healed -Ulcer Cleansing Rinsed/ Irrigated with Saline -Foul Odor after Cleansing No -Bioengineered Tissue Yes -Type of bioengineered Tissue EPIFIX -Expiration Date 04/06/23 -Product Lot Number [id number] -Percent Used 100 -Saline Lot Number [id number] -Bleeding Controlled with Pressure -Offloading No -Treatment Response Procedure Tolerated Well Pain Scale: 0-10 Numeric Is Patient Pain Free? Yes Wound debrided: Lower back ( Mid ) Wound Grade/Stage: Stage III Type of Debridement: Excisional debridement Anesthesia Used: 4% Lidocaine Solution Depth: Down to and including healthy tissue, in the subcutaneous layer Percentage of wound debrided: 100 Instrument Used: 3mm curette Tissue Removed: Slough and devitalized tissue Severity: Fat Layer Exposed Amount of bleeding with debridement: Mild Bleeding Controlled with: Pressure Patient tolerated procedure well Assessment/Plan Active Problems (Last Updated 03/11/18 @ 14:54 by Cecil Butts DO) Spina bifida (Chronic) Decubitus ulcer of lower back, stage 3 (Chronic) midline Assessment: right foot wound (possible burn) - healed today. spina bifida. malnutrition. lower extremity edema Plan: Again, no significant improvement in the past week. Has had 6 weeks of collagen treatment. She meets mediucal necessity for advanced wound care product due to failure to progress with over 30 days of traditional wound care products. Initial application of Epifix done using 100% of product. Moistened with saline. Adaptic over top and steristrips to secure. leave in place x 1 week. Continue offloading. Increase protein intake also recommended. All thier Questions were answered and they were advised to call with any further questions or concerns. Follow-up in 1 week. This note was generated with [employer] software. It may contain incorrect words, spelling, and punctuation that were not noted in checking the note before signing.
[2018-12-13 09:05] VITALS: BP 136/74; PULSE 86; RESP 18; TEMP 36.2; BMI 29.0
--- NOTE | 2018-12-13 10:08 | PN.PCM_ITS ---
(1) Decubitus ulcer of lower back, stage 3 Status: Chronic Current Visit: Yes Code(s): L89.103 - Pressure ulcer of unspecified part of back, stage 3 Comment: midline (2) Spina bifida Status: Chronic Current Visit: Yes Qualifiers: Code(s): Q05.9 - Spina bifida, unspecified Type of Wound Date of Service: 12/13/18 Chief Complaint: right foot wound healed History of Wound: Ms. Crews is a 43-year-old who is seen today as a courtesy visit for Dr. Kinney with a lower back ulcer noted the beginning of October. She denies any known precipitating factor but does have spina bifida and spends a significant amount of time in a wheelchair. She has had ulcers in this area in the past. She initially had been doing some conservative management at home without any significant improvement. Initially there was drainage noted however there is not any significant drainage at this time. She denies chills, fever otherwise feeling of unwell. She has been tolerating teatment with Promogran moistened and changed every other day. She has been off work for several weeks. Progress of Wound: Has had 1 application of Epifix. It however came off on tuesday. Been applying pomogran since falling off. - Physical Exam Vital Signs Temp Pulse Resp BP 97.1 F L 86 18 136/74 H 12/13/18 09:05 12/13/18 09:05 12/13/18 09:05 12/13/18 09:05 General: Alert, Oriented x3, Cooperative, No apparent distress HEENT: Atraumatic, Normocephalic Oral: Moist Mucosa Neck: Supple Lungs: Normal air movement Extremities: No cyanosis Skin: Ulcer/ Wound Wound Measurements and Assessment WC - Nurse 1 - General Ulcer Measurement Start: 12/06/18 09:00 Freq: Status: Active Protocol: Activity Type Activity Date Activity User E-Sign Co-Sign Detail Recorded Client Recorded Date Recorded By Document 12/13/18 09:05 INO [id number] 12/13/18 09:11 DL 12/13/18 09:05 Wound Center Nurse 1 [Ulcer Assessment] #3- LUMBAR AREA -Current Size (cm) - Length 1 -Current Size (cm) - Width 1.1 -Current Size (cm) - Depth 0.5 -Total Square Cm 1.1 -Photo Taken No -Exudate Amt Small -Exudate Type Serosanguineous -Wound Margin Distinct, Outline Attached -Granulation Amt Large (67-100%) -Granulation Quality Pale,[place] -Necrosis Amt Small (1-33%) -Necrotic Tissue Type Adherent Slough -Texture (Patience-wound Skin Appearance) Scarring -Moisture (Patience-wound Skin Appearance No Abnormality ) -Color (Patience-wound Skin Appearance) No Abnormality -Temperature (Patience-wound Skin No Abnormality Appearance) (Pt Warm) -Ulcer Cleansing Rinsed/ Irrigated with Saline -Foul Odor after Cleansing No -Anesthetic Used 5% Lidocaine Gel WC - Nurse 2 - General Ulcer CM Notes Start: 12/06/18 09:00 Freq: Status: Active Protocol: Activity Type Activity Date Activity User E-Sign Co-Sign Detail Recorded Client Recorded Date Recorded By Document 12/13/18 09:45 MW [id number] 12/13/18 09:52 MW 12/13/18 09:45 Wound Center Nurse 2 [Procedure/Treatment] -Time 09:46 -Correct Patient Yes -Correct Side, Site, Position Yes -Correct Procedure Yes -Procedure Performed Yes -Type of Procedure Debridement -Clinical Debridement Subcutaneous -Post Debridement Size (cm) - Length 1.0 -Post Debridement Size (cm) - Width 1.1 -Post Debridement Size (cm) - Depth 0.3 -Total Square Cm 1.10 -Wound/Ulcer Outcome Not Healed -Ulcer Cleansing Rinsed/ Irrigated with Saline -Foul Odor after Cleansing No -Bioengineered Tissue Yes -Type of bioengineered Tissue EPIFIX -Expiration Date 04/06/23 -Product Lot Number [id number] -Percent Used 100 -Saline Lot Number [id number] -Bleeding Controlled with Pressure -Offloading No -Treatment Response Procedure Tolerated Well [See Physician Procedure note for Specifics] Pain Scale: 0-10 Numeric [Pain] -Is Patient Pain Free? Yes Musculoskeletal: No Muscle Wasting Neurological: Cranial nerves II-XII grossly intact Psych/Mental Status: Normal Affect Debridement Note Post-Debridement Measurements/Treatment WC - Nurse 2 - General Ulcer CM Notes Start: 12/06/18 09:00 Freq: Status: Active Protocol: Activity Type Activity Date Activity User E-Sign Co-Sign Detail Recorded Client Recorded Date Recorded By Document 12/06/18 09:25 MW [id number] 12/06/18 09:34 MW Document 12/13/18 09:45 MW [id number] 12/13/18 09:52 MW 12/06/18 12/13/18 09:25 09:45 Wound Center Nurse 2 #3- LUMBAR AREA -Time 09: 09:46 -Correct Patient Yes Yes -Correct Side, Site, Position Yes Yes -Correct Procedure Yes Yes -Procedure Performed Yes Yes -Type of Procedure Debridement Debridement -Clinical Debridement Subcutaneous Subcutaneous -Post Debridement Size (cm) - Length 1.5 1.0 -Post Debridement Size (cm) - Width 1.2 1.1 -Post Debridement Size (cm) - Depth 0.3 0.3 -Total Square Cm 1.80 1.10 -Wound/Ulcer Outcome Not Healed Not Healed -Ulcer Cleansing Rinsed/ Rinsed/ Irrigated with Irrigated with Saline Saline -Foul Odor after Cleansing No No -Bioengineered Tissue Yes Yes -Type of bioengineered Tissue EPIFIX EPIFIX -Expiration Date 04/06/23 04/06/23 -Product Lot Number [id number] -Percent Used 100 100 -Saline Lot Number [id number] -Bleeding Controlled with Pressure Pressure -Offloading No No -Treatment Response Procedure Procedure Tolerated Well Tolerated Well Pain Scale: 0-10 Numeric Is Patient Pain Free? Yes Yes Wound debrided: Mid lower back Wound Grade/Stage: Stage III Type of Debridement: Excisional debridement Anesthesia Used: 4% Lidocaine Solution Depth: Down to and including healthy tissue, in the subcutaneous layer Percentage of wound debrided: 100 Instrument Used: 3mm curette Tissue Removed: Slough and devitalized tissue Severity: Fat Layer Exposed Amount of bleeding with debridement: Mild Bleeding Controlled with: Pressure Patient tolerated procedure well Assessment/Plan Active Problems (Last Updated 03/11/18 @ 14:54 by Cecil Butts DO) Spina bifida (Chronic) Decubitus ulcer of lower back, stage 3 (Chronic) midline Assessment: right foot wound (possible burn) - healed today. spina bifida. malnutrition. lower extremity edema Plan: 2nd application of Epifix done using 100% of product. Moistened with saline. wound veil over top and steristrips to secure. Reinforced blue tape due nto problems sticking. Leave in place x 1 week. Continue offloading. Increase protein intake also recommended. All their Questions were answered and they were advised to call with any further questions or concerns. She continues to meet medical necessity for Epifix due to non improvement ith traditinal wound care products after 6 weeks. Follow-up in 1 week. This note was generated with [email or web address] dictation software. It may contain incorrect words, spelling, and punctuation that were not noted in checking the note before signing.
[2018-12-20 09:05] VITALS: BP 113/79; PULSE 86; RESP 16; TEMP 36; BMI 29.0
--- NOTE | 2018-12-20 10:20 | PN.PCM_ITS ---
(1) Decubitus ulcer of lower back, stage 3 Status: Chronic Current Visit: Yes Code(s): L89.103 - Pressure ulcer of unspecified part of back, stage 3 Comment: midline (2) Spina bifida Status: Chronic Current Visit: Yes Qualifiers: Code(s): Q05.9 - Spina bifida, unspecified Type of Wound Date of Service: 12/20/18 Chief Complaint: right foot wound healed History of Wound: Ms. Crews is a 43-year-old who is seen today as a courtesy visit for Dr. Kinney with a lower back ulcer noted the beginning of October. She denies any known precipitating factor but does have spina bifida and spends a significant amount of time in a wheelchair. She has had ulcers in this area in the past. She initially had been doing some conservative management at home without any significant improvement. Initially there was drainage noted however there is not any significant drainage at this time. She denies chills, fever otherwise feeling of unwell. She has been tolerating teatment with Promogran moistened and changed every other day. She has been off work for several weeks. Progress of Wound: Has had 2 applications of Epifix so far. Stayed on better this week. No new cocnerns at this time. - Physical Exam Vital Signs Temp Pulse Resp BP 96.8 F L 86 16 113/79 12/20/18 09:05 12/20/18 09:05 12/20/18 09:05 12/20/18 09:05 General: Alert, No apparent distress HEENT: Atraumatic, Normocephalic Oral: Moist Mucosa Neck: Supple Lungs: Normal air movement Extremities: No cyanosis Wound Measurements and Assessment WC - Nurse 1 - General Ulcer Measurement Start: 12/06/18 09:00 Freq: Status: Active Protocol: Activity Type Activity Date Activity User E-Sign Co-Sign Detail Recorded Client Recorded Date Recorded By Document 12/20/18 09:05 DL [id number] 12/20/18 09:12 DL 12/20/18 09:05 Wound Center Nurse 1 [Ulcer Assessment] #3- LUMBAR AREA -Current Size (cm) - Length 1 -Current Size (cm) - Width 1.1 -Current Size (cm) - Depth 0.6 -Total Square Cm 1.1 -Photo Taken No -Exudate Amt Small -Exudate Type Serosanguineous -Wound Margin Thickened -Granulation Amt Large (67-100%) -Granulation Quality Pale,[place] -Necrosis Amt Small (1-33%) -Necrotic Tissue Type Adherent Slough -Structure Exposed N/A -Texture (Patience-wound Skin Appearance) Scarring -Moisture (Patience-wound Skin Appearance No Abnormality ) -Color (Patience-wound Skin Appearance) Rubor -Ulcer Cleansing Rinsed/ Irrigated with Saline -Foul Odor after Cleansing No -Anesthetic Used 5% Lidocaine Gel - Nurse 2 - General Ulcer CM Notes Start: 12/06/18 09:00 Freq: Status: Active Protocol: Activity Type Activity Date Activity User E-Sign Co-Sign Detail Recorded Client Recorded Date Recorded By Document 12/20/18 09:35 MW [id number] 12/20/18 09:40 MW 12/20/18 09:35 Wound Center Nurse 2 [Procedure/Treatment] -Time 09:35 -Correct Patient Yes -Correct Side, Site, Position Yes -Correct Procedure Yes -Procedure Performed Yes -Type of Procedure Debridement -Clinical Debridement Subcutaneous -Post Debridement Size (cm) - Length 1.0 -Post Debridement Size (cm) - Width 1.5 -Post Debridement Size (cm) - Depth 0.3 -Total Square Cm 1.50 -Wound/Ulcer Outcome Not Healed -Ulcer Cleansing Rinsed/ Irrigated with Saline -Foul Odor after Cleansing No -Bioengineered Tissue Yes -Type of bioengineered Tissue EPIFIX -Expiration Date 04/06/23 -Product Lot Number [id number] -Percent Used 100 -Saline Lot Number [id number] -Bleeding Controlled with Pressure -Offloading No -Treatment Response Procedure Tolerated Well [See Physician Procedure note for Specifics] Pain Scale: 0-10 Numeric [Pain] -Is Patient Pain Free? Yes Musculoskeletal: No Muscle Wasting Neurological: Cranial nerves II-XII grossly intact Psych/Mental Status: Normal Affect Debridement Note Post-Debridement Measurements/Treatment - Nurse 2 - General Ulcer CM Notes Start: 12/06/18 09:00 Freq: Status: Active Protocol: Activity Type Activity Date Activity User E-Sign Co-Sign Detail Recorded Client Recorded Date Recorded By Document 12/06/18 09:25 MW [id number] 12/06/18 09:34 MW Document 12/13/18 09:45 MW [id number] 12/13/18 09:52 MW Document 12/20/18 09:35 MW [id number] 12/20/18 09:40 MW 12/06/18 12/13/18 12/20/18 09:25 09:45 09:35 Wound Center Nurse 2 #3- LUMBAR AREA -Time 09:25 09:46 09:35 -Correct Patient Yes Yes Yes -Correct Side, Site, Position Yes Yes Yes -Correct Procedure Yes Yes Yes -Procedure Performed Yes Yes Yes -Type of Procedure Debridement Debridement Debridement -Clinical Debridement Subcutaneous Subcutaneous Subcutaneous -Post Debridement Size (cm) - Length 1.5 1.0 1.0 -Post Debridement Size (cm) - Width 1.2 1.1 1.5 -Post Debridement Size (cm) - Depth 0.3 0.3 0.3 -Total Square Cm 1.80 1.10 1.50 -Wound/Ulcer Outcome Not Healed Not Healed Not Healed -Ulcer Cleansing Rinsed/ Rinsed/ Rinsed/ Irrigated with Irrigated with Irrigated with Saline Saline Saline -Foul Odor after Cleansing No No No -Bioengineered Tissue Yes Yes Yes -Type of bioengineered Tissue EPIFIX EPIFIX EPIFIX -Expiration Date 04/06/23 04/06/23 04/06/23 -Product Lot Number [id number] -Percent Used 100 100 100 -Saline Lot Number [id number] -Bleeding Controlled with Pressure Pressure Pressure -Offloading No No No -Treatment Response Procedure Procedure Procedure Tolerated Well Tolerated Well Tolerated Well Pain Scale: 0-10 Numeric Is Patient Pain Free? Yes Yes Yes Wound debrided: Lower back ( Mid) Wound Grade/Stage: Stage III Type of Debridement: Excisional debridement Anesthesia Used: 4% Lidocaine Solution Depth: Down to and including healthy tissue, in the subcutaneous layer Percentage of wound debrided: 100 Instrument Used: 3mm curette Tissue Removed: Slough and devitalized tissue Severity: Fat Layer Exposed Amount of bleeding with debridement: Mild Bleeding Controlled with: Pressure Patient tolerated procedure well Assessment/Plan Active Problems (Last Updated 03/11/18 @ 14:54 by Cecil Butts DO) Spina bifida (Chronic) Decubitus ulcer of lower back, stage 3 (Chronic) midline Assessment: right foot wound (possible burn) - healed today. spina bifida. malnutrition. lower extremity edema Plan: Good granulation tissue however no significant change in circumference. Third application of Epifix done using 100% of product. Moistened with saline. wound veil over top and steristrips to secure. Leave in place x 1 week. Continue offloading. Increase protein intake also recommended. All their Questions were answered and they were advised to call with any further questions or concerns. She continues to meet medical necessity for Epifix due to non improvement with traditional wound care products after 6 weeks. Follow-up in 1 week. This note was generated with [employer] dictation software. It may contain incorrect words, spelling, and punctuation that were not noted in checking the note before signing.
[2018-12-27 09:56] VITALS: BP 138/81; PULSE 92; RESP 16; TEMP 37.7; BMI 29.0
--- NOTE | 2018-12-27 12:51 | PN.PCM_ITS ---
(1) Decubitus ulcer of lower back, stage 3 Status: Chronic Current Visit: Yes Code(s): L89.103 - Pressure ulcer of unspecified part of back, stage 3 Comment: midline (2) Spina bifida Status: Chronic Current Visit: Yes Qualifiers: Code(s): Q05.9 - Spina bifida, unspecified (3) Decubitus ulcer of right buttock, stage 1 Status: Acute Current Visit: Yes Code(s): L89.311 - Pressure ulcer of right buttock, stage 1 Type of Wound Date of Service: 12/27/18 Chief Complaint: right foot wound healed History of Wound: Ms. Crews is a 43-year-old who is seen today as a courtesy visit for Dr. Kinney with a lower back ulcer noted the beginning of October. She denies any known precipitating factor but does have spina bifida and spends a significant amount of time in a wheelchair. She has had ulcers in this area in the past. She initially had been doing some conservative management at home without any significant improvement. Initially there was drainage noted however there is not any significant drainage at this time. She denies chills, fever otherwise feeling of unwell. She has been tolerating teatment with Promogran moistened and changed every other day. She has been off work for several weeks. Progress of Wound: Has had 3 applications of epifix so far. New right superficial ulcer. - Physical Exam Vital Signs Temp Pulse Resp BP 100 F H 92 16 138/81 H 12/27/18 09:56 12/27/18 09:56 12/27/18 09:56 12/27/18 09:56 General: Alert, Oriented x3, Cooperative, No apparent distress HEENT: Atraumatic, Normocephalic Oral: Moist Mucosa Neck: Supple Lungs: Normal air movement Abdomen: Non Tender, Obese Extremities: No cyanosis Skin: Ulcer/ Wound Wound Measurements and Assessment WC - Nurse 1 - General Ulcer Measurement Start: 12/06/18 09:00 Freq: Status: Active Protocol: Activity Type Activity Date Activity User E-Sign Co-Sign Detail Recorded Client Recorded Date Recorded By Document 12/27/18 09:56 [facility] [id number] 12/27/18 10:08 [facility] 12/27/18 09:56 Wound Center Nurse 1 [Ulcer Assessment] #4- R BUTTOCK -Combined with other wound No -Current Size (cm) - Length 0.6 -Current Size (cm) - Width 1.3 -Current Size (cm) - Depth 0.1 -Total Square Cm 0.78 -Date of Last Picture (Recall this 12/27/18 field) -Photo Taken Yes -Epithelialization None Present -Tunneling No -Undermining/Tunneling No -Circular Undermining No -Exudate Amt Small -Exudate Type Serous -Wound Margin Flat & Intact -Granulation Amt Large (67-100%) -Granulation Quality Red -Slough/Fibrin No -Necrosis Amt None Present (0 %) -Texture (Patience-wound Skin Appearance) Assessed -Moisture (Patience-wound Skin Appearance Assessed ) -Color (Patience-wound Skin Appearance) Assessed -Temperature (Patience-wound Skin No Abnormality Appearance) (Pt Warm) -Tenderness on Palpation (Patience-wound No Skin Appearance) -Ulcer Cleansing Rinsed/ Irrigated with Saline -Foul Odor after Cleansing No -Anesthetic Used 5% Lidocaine Gel #3- LUMBAR AREA -Combined with other wound No -Current Size (cm) - Length 0.9 -Current Size (cm) - Width 0.9 -Current Size (cm) - Depth 0.5 -Total Square Cm 0.81 -Date of Last Picture (Recall this 12/27/18 field) -Photo Taken No -Epithelialization Small 1-33% -Tunneling No -Undermining/Tunneling No -Circular Undermining No -Exudate Amt Medium -Exudate Type Serous -Wound Margin Distinct, Outline Attached -Granulation Amt Large (67-100%) -Granulation Quality Red -Slough/Fibrin Yes -Necrosis Amt Small (1-33%) -Necrotic Tissue Type Adherent Slough -Texture (Patience-wound Skin Appearance) Assessed, Scarring -Moisture (Patience-wound Skin Appearance Assessed ) -Color (Patience-wound Skin Appearance) Assessed -Temperature (Patience-wound Skin No Abnormality Appearance) (Pt Warm) -Tenderness on Palpation (Patience-wound No Skin Appearance) -Ulcer Cleansing Rinsed/ Irrigated with Saline -Foul Odor after Cleansing No -Anesthetic Used 5% Lidocaine Gel WC - Nurse 2 - General Ulcer CM Notes Start: 12/06/18 09:00 Freq: Status: Active Protocol: Activity Type Activity Date Activity User E-Sign Co-Sign Detail Recorded Client Recorded Date Recorded By Document 12/27/18 10:27 MW [id number] 12/27/18 10:36 MW 12/27/18 10:27 Wound Center Nurse 2 [Procedure/Treatment] #4- R BUTTOCK -Time 10:28 -Correct Patient Yes -Correct Side, Site, Position Yes -Correct Procedure Yes -Procedure Performed No -Wound/Ulcer Outcome Not Healed -Ulcer Cleansing Rinsed/ Irrigated with Saline -Foul Odor after Cleansing No -Bioengineered Tissue No -Bleeding Controlled with NA -Offloading No -Treatment Response Procedure Tolerated Well #3- LUMBAR AREA -Time 10:27 -Correct Patient Yes -Correct Side, Site, Position Yes -Correct Procedure Yes -Procedure Performed Yes -Type of Procedure Debridement -Clinical Debridement Subcutaneous -Post Debridement Size (cm) - Length 0.7 -Post Debridement Size (cm) - Width 1.0 -Post Debridement Size (cm) - Depth 0.3 -Total Square Cm 0.70 -Wound/Ulcer Outcome Not Healed -Ulcer Cleansing Rinsed/ Irrigated with Saline -Foul Odor after Cleansing No -Bioengineered Tissue Yes -Type of bioengineered Tissue EPIFIX -Expiration Date 04/06/23 -Product Lot Number [id number] -Percent Used 100 -Saline Lot Number [id number] -Bleeding Controlled with Pressure -Offloading No -Treatment Response Procedure Tolerated Well [See Physician Procedure note for Specifics] Pain Scale: 0-10 Numeric [Pain] -Is Patient Pain Free? Yes Musculoskeletal: No Muscle Wasting Neurological: Cranial nerves II-XII grossly intact Debridement Note Post-Debridement Measurements/Treatment WC - Nurse 2 - General Ulcer CM Notes Start: 12/06/18 09:00 Freq: Status: Active Protocol: Activity Type Activity Date Activity User E-Sign Co-Sign Detail Recorded Client Recorded Date Recorded By Document 12/06/18 09:25 MW [id number] 12/06/18 09:34 MW Document 12/13/18 09:45 MW [id number] 12/13/18 09:52 MW Document 12/20/18 09:35 MW [id number] 12/20/18 09:40 MW Document 12/27/18 10:27 MW [id number] 12/27/18 10:36 MW 12/06/18 12/13/18 12/20/18 09:25 09:45 09:35 Wound Center Nurse 2 #4- R BUTTOCK -Time -Correct Patient -Correct Side, Site, Position -Correct Procedure -Procedure Performed -Wound/Ulcer Outcome -Ulcer Cleansing -Foul Odor after Cleansing -Bioengineered Tissue -Bleeding Controlled with -Offloading -Treatment Response #3- LUMBAR AREA -Time 09: 09:46 09:35 -Correct Patient Yes Yes Yes -Correct Side, Site, Position Yes Yes Yes -Correct Procedure Yes Yes Yes -Procedure Performed Yes Yes Yes -Type of Procedure Debridement Debridement Debridement -Clinical Debridement Subcutaneous Subcutaneous Subcutaneous -Post Debridement Size (cm) - Length 1.5 1.0 1.0 -Post Debridement Size (cm) - Width 1.2 1.1 1.5 -Post Debridement Size (cm) - Depth 0.3 0.3 0.3 -Total Square Cm 1.80 1.10 1.50 -Wound/Ulcer Outcome Not Healed Not Healed Not Healed -Ulcer Cleansing Rinsed/ Rinsed/ Rinsed/ Irrigated with Irrigated with Irrigated with Saline Saline Saline -Foul Odor after Cleansing No No No -Bioengineered Tissue Yes Yes Yes -Type of bioengineered Tissue EPIFIX EPIFIX EPIFIX -Expiration Date 04/06/23 04/06/23 04/06/23 -Product Lot Number [id number] -Percent Used 100 100 100 -Saline Lot Number [id number] -Bleeding Controlled with Pressure Pressure Pressure -Offloading No No No -Treatment Response Procedure Procedure Procedure Tolerated Well Tolerated Well Tolerated Well Pain Scale: 0-10 Numeric Is Patient Pain Free? Yes Yes Yes 12/27/18 10:27 Wound Center Nurse 2 #4- R BUTTOCK -Time 10:28 -Correct Patient Yes -Correct Side, Site, Position Yes -Correct Procedure Yes -Procedure Performed No -Wound/Ulcer Outcome Not Healed -Ulcer Cleansing Rinsed/ Irrigated with Saline -Foul Odor after Cleansing No -Bioengineered Tissue No -Bleeding Controlled with NA -Offloading No -Treatment Response Procedure Tolerated Well #3- LUMBAR AREA -Time 10:27 -Correct Patient Yes -Correct Side, Site, Position Yes -Correct Procedure Yes -Procedure Performed Yes -Type of Procedure Debridement -Clinical Debridement Subcutaneous -Post Debridement Size (cm) - Length 0.7 -Post Debridement Size (cm) - Width 1.0 -Post Debridement Size (cm) - Depth 0.3 -Total Square Cm 0.70 -Wound/Ulcer Outcome Not Healed -Ulcer Cleansing Rinsed/ Irrigated with Saline -Foul Odor after Cleansing No -Bioengineered Tissue Yes -Type of bioengineered Tissue EPIFIX -Expiration Date 04/06/23 -Product Lot Number [id number] -Percent Used 100 -Saline Lot Number [id number] -Bleeding Controlled with Pressure -Offloading No -Treatment Response Procedure Tolerated Well Pain Scale: 0-10 Numeric Is Patient Pain Free? Yes Wound debrided: Mid lower back Wound Grade/Stage: Stage III Type of Debridement: Excisional debridement Anesthesia Used: 4% Lidocaine Solution Depth: Down to and including healthy tissue, in the subcutaneous layer Percentage of wound debrided: 100 Instrument Used: 3mm curette Tissue Removed: Slough and devitalized tissue Severity: Fat Layer Exposed Amount of bleeding with debridement: Mild Bleeding Controlled with: Pressure Patient tolerated procedure well Assessment/Plan Active Problems (Last Updated 03/11/18 @ 14:54 by Cecil Butts DO) Spina bifida (Chronic) Decubitus ulcer of lower back, stage 3 (Chronic) midline Decubitus ulcer of right buttock, stage 1 (Acute) Assessment: right foot wound (possible burn) - healed today. spina bifida. malnutrition. lower extremity edema Plan: 4th application of Epifix done using 100% of product. Moistened with saline. wound veil over top and steristrips to secure. Leave in place x 1 week. Continue offloading. Aquacel extra 2 superficial right buttock ulcer. Zinc oxide cream to surrounding area. Increased protein intake also recommended. All their Questions were answered and they were advised to call with any further questions or concerns. She continues to meet medical necessity for Epifix due to non improvement with traditional wound care products after 6 weeks. Follow- up in 1 week. This note was generated with [employer] software. It may contain incorrect words, spelling, and punctuation that were not noted in checking the note before signing.
[2019-01-03 10:00] VITALS: BP 106/72; PULSE 96; RESP 18; TEMP 37.2; BMI 29.0
--- NOTE | 2019-01-03 11:48 | PN.PCM_ITS ---
(1) Decubitus ulcer of lower back, stage 3 Status: Chronic Current Visit: Yes Code(s): L89.103 - Pressure ulcer of unspecified part of back, stage 3 Comment: midline (2) Spina bifida Status: Chronic Current Visit: Yes Qualifiers: Code(s): Q05.9 - Spina bifida, unspecified (3) Decubitus ulcer of right buttock, stage 1 Status: Acute Current Visit: Yes Code(s): L89.311 - Pressure ulcer of right buttock, stage 1 Type of Wound Date of Service: 01/03/19 Chief Complaint: right foot wound healed History of Wound: Ms. Crews is a 43-year-old who is seen today as a courtesy visit for Dr. Kinney with a lower back ulcer noted the beginning of October. She denies any known precipitating factor but does have spina bifida and spends a significant amount of time in a wheelchair. She has had ulcers in this area in the past. She initially had been doing some conservative management at home without any significant improvement. Initially there was drainage noted however there is not any significant drainage at this time. She denies chills, fever otherwise feeling of unwell. She has been tolerating teatment with Promogran moistened and changed every other day. She has been off work for several weeks. Progress of Wound: Has had 4 applications of epifix so far. Right buttock ulcer healed hwever, now presents with patience ulcer skin break down and drainage noted on the dressing. - Physical Exam Vital Signs Temp Pulse Resp BP 98.9 F 96 18 106/72 01/03/19 10:00 01/03/19 10:00 01/03/19 10:00 01/03/19 10:00 General: Alert, Oriented x3, Cooperative, No apparent distress HEENT: Atraumatic, Normocephalic Oral: Moist Mucosa Neck: Supple Lungs: Normal air movement Abdomen: Soft, Obese Extremities: No cyanosis Skin: Ulcer/ Wound Wound Measurements and Assessment WC - Nurse 1 - General Ulcer Measurement Start: 12/06/18 09:00 Freq: Status: Active Protocol: Activity Type Activity Date Activity User E-Sign Co-Sign Detail Recorded Client Recorded Date Recorded By Document 01/03/19 10:00 DL [id number] 01/03/19 10:11 DL 01/03/19 10:00 Wound Center Nurse 1 [Ulcer Assessment] #4- R BUTTOCK -Current Size (cm) - Length 0.6 -Current Size (cm) - Width 1.4 -Current Size (cm) - Depth 0.5 -Total Square Cm 0.84 -Photo Taken No -Exudate Amt Small -Exudate Type Yellow/Green -Wound Margin Thickened -Granulation Amt Large (67-100%) -Granulation Quality Pale,[place] -Necrosis Amt None Present (0 %) -Structure Exposed N/A -Texture (Patience-wound Skin Appearance) Scarring -Moisture (Patience-wound Skin Appearance No Abnormality ) -Color (Patience-wound Skin Appearance) Rubor -Temperature (Patience-wound Skin No Abnormality Appearance) (Pt Warm) -Tenderness on Palpation (Patience-wound No Skin Appearance) -Ulcer Cleansing Wound Cleanser -Foul Odor after Cleansing No -Anesthetic Used 5% Lidocaine Gel WC - Nurse 2 - General Ulcer CM Notes Start: 12/06/18 09:00 Freq: Status: Active Protocol: Activity Type Activity Date Activity User E-Sign Co-Sign Detail Recorded Client Recorded Date Recorded By Document 01/03/19 10:34 MW [id number] 01/03/19 10:41 MW 01/03/19 10:34 Wound Center Nurse 2 [Procedure/Treatment] -Time 10:35 -Correct Patient Yes -Correct Side, Site, Position Yes -Correct Procedure Yes -Procedure Performed Yes -Wound/Ulcer Outcome Not Healed -Ulcer Cleansing Rinsed/ Irrigated with Saline -Foul Odor after Cleansing No -Bioengineered Tissue No -Bleeding Controlled with Pressure -Offloading No -Treatment Response Procedure Tolerated Well #3- LUMBAR AREA -Time 10:36 -Correct Patient Yes -Correct Side, Site, Position Yes -Correct Procedure Yes -Procedure Performed Yes -Type of Procedure Debridement -Clinical Debridement Subcutaneous -Post Debridement Size (cm) - Length 0.8 -Post Debridement Size (cm) - Width 1.1 -Post Debridement Size (cm) - Depth 0.3 -Total Square Cm 0.88 -Wound/Ulcer Outcome Not Healed -Ulcer Cleansing Rinsed/ Irrigated with Saline -Foul Odor after Cleansing No -Bioengineered Tissue No -Bleeding Controlled with Pressure -Offloading No -Treatment Response Procedure Tolerated Well [See Physician Procedure note for Specifics] Pain Scale: 0-10 Numeric [Pain] -Is Patient Pain Free? Yes Musculoskeletal: No Muscle Wasting Neurological: Cranial nerves II-XII grossly intact Psych/Mental Status: Normal Affect Debridement Note Post-Debridement Measurements/Treatment WC - Nurse 2 - General Ulcer CM Notes Start: 12/06/18 09:00 Freq: Status: Active Protocol: Activity Type Activity Date Activity User E-Sign Co-Sign Detail Recorded Client Recorded Date Recorded By Document 12/06/18 09:25 MW [id number] 12/06/18 09:34 MW Document 12/13/18 09:45 MW [id number] 12/13/18 09:52 MW Document 12/20/18 09:35 MW [id number] 12/20/18 09:40 MW Document 12/27/18 10:27 MW [id number] 12/27/18 10:36 MW Document 01/03/19 10:34 MW [id number] 01/03/19 10:41 MW 12/06/18 12/13/18 12/20/18 09:25 09:45 09:35 Wound Center Nurse 2 #4- R BUTTOCK -Time -Correct Patient -Correct Side, Site, Position -Correct Procedure -Procedure Performed -Wound/Ulcer Outcome -Ulcer Cleansing -Foul Odor after Cleansing -Bioengineered Tissue -Bleeding Controlled with -Offloading -Treatment Response #3- LUMBAR AREA -Time 09:25 09:46 09:35 -Correct Patient Yes Yes Yes -Correct Side, Site, Position Yes Yes Yes -Correct Procedure Yes Yes Yes -Procedure Performed Yes Yes Yes -Type of Procedure Debridement Debridement Debridement -Clinical Debridement Subcutaneous Subcutaneous Subcutaneous -Post Debridement Size (cm) - Length 1.5 1.0 1.0 -Post Debridement Size (cm) - Width 1.2 1.1 1.5 -Post Debridement Size (cm) - Depth 0.3 0.3 0.3 -Total Square Cm 1.80 1.10 1.50 -Wound/Ulcer Outcome Not Healed Not Healed Not Healed -Ulcer Cleansing Rinsed/ Rinsed/ Rinsed/ Irrigated with Irrigated with Irrigated with Saline Saline Saline -Foul Odor after Cleansing No No No -Bioengineered Tissue Yes Yes Yes -Type of bioengineered Tissue EPIFIX EPIFIX EPIFIX -Expiration Date 04/06/23 04/06/23 04/06/23 -Product Lot Number [id number] -Percent Used 100 100 100 -Saline Lot Number [id number] -Bleeding Controlled with Pressure Pressure Pressure -Offloading No No No -Treatment Response Procedure Procedure Procedure Tolerated Well Tolerated Well Tolerated Well Pain Scale: 0-10 Numeric Is Patient Pain Free? Yes Yes Yes 12/27/18 01/03/19 10:27 10:34 Wound Center Nurse 2 #4- R BUTTOCK -Time 10:28 10:35 -Correct Patient Yes Yes -Correct Side, Site, Position Yes Yes -Correct Procedure Yes Yes -Procedure Performed No Yes -Wound/Ulcer Outcome Not Healed Not Healed -Ulcer Cleansing Rinsed/ Rinsed/ Irrigated with Irrigated with Saline Saline -Foul Odor after Cleansing No No -Bioengineered Tissue No No -Bleeding Controlled with NA Pressure -Offloading No No -Treatment Response Procedure Procedure Tolerated Well Tolerated Well #3- LUMBAR AREA -Time 10:27 10:36 -Correct Patient Yes Yes -Correct Side, Site, Position Yes Yes -Correct Procedure Yes Yes -Procedure Performed Yes Yes -Type of Procedure Debridement Debridement -Clinical Debridement Subcutaneous Subcutaneous -Post Debridement Size (cm) - Length 0.7 0.8 -Post Debridement Size (cm) - Width 1.0 1.1 -Post Debridement Size (cm) - Depth 0.3 0.3 -Total Square Cm 0.70 0.88 -Wound/Ulcer Outcome Not Healed Not Healed -Ulcer Cleansing Rinsed/ Rinsed/ Irrigated with Irrigated with Saline Saline -Foul Odor after Cleansing No No -Bioengineered Tissue Yes No -Type of bioengineered Tissue EPIFIX -Expiration Date 04/06/23 -Product Lot Number [id number] -Percent Used 100 -Saline Lot Number [id number] -Bleeding Controlled with Pressure Pressure -Offloading No No -Treatment Response Procedure Procedure Tolerated Well Tolerated Well Pain Scale: 0-10 Numeric Is Patient Pain Free? Yes Yes Wound debrided: Mid lower back Wound Grade/Stage: Berto III Type of Debridement: Excisional debridement Anesthesia Used: 4% Lidocaine Solution Depth: Down to and including healthy tissue, in the subcutaneous layer Percentage of wound debrided: 100 Instrument Used: 3mm curette Tissue Removed: Slough and devitalized tissue Severity: Fat Layer Exposed Amount of bleeding with debridement: Mild Bleeding Controlled with: Pressure Patient tolerated procedure well Assessment/Plan Active Problems (Last Updated 03/11/18 @ 14:54 by Cecil Butts DO) Spina bifida (Chronic) Decubitus ulcer of lower back, stage 3 (Chronic) midline Decubitus ulcer of right buttock, stage 1 (Acute) Assessment: right foot wound (possible burn) - healed today. spina bifida. malnutrition. lower extremity edema Plan: Debridement done as documented above, procedure was well tolearted. Cultures taken due to drainage and skin breakdown. Hold off Epifix thos week. Loren with adaptic over top. Change twice daily. Continue offloading. Zinc oxide cream to surrounding area. Increased protein intake also recommended. All their Questions were answered and they were advised to call with any further questions or concerns. She continues to meet medical necessity for Epifix due to non improvement with traditional wound care products after 6 weeks. Follow- up in 1 week. This note was generated with [facility] dictation software. It may contain incorrect words, spelling, and punctuation that were not noted in checking the note before signing.
== END 2019-01-03 23:59 ==
LOC: WC 09:45
PROVIDERS: Family Provider Family Medicine; PCP Family Medicine; Visit Provider Internal Medicine
DX: L89.103 Pressure ulcer of unspecified part of back, stage 3 (principal); Q05.9 Spina bifida, unspecified; Z79.82 Long term (current) use of aspirin; Z79.899 Other long term (current) drug therapy; R60.0 Localized edema; L89.311 Pressure ulcer of right buttock, stage 1
CPT/HCPCS: 11042; 15271; 87070; 87075; 87077; 87086; 87088; 87186; 87205; Q4186

== ENCOUNTER 2019-02-01 10:00 | Outpatient (RCR) | payer MEDICARE, MEDICAID, SELFPAY ==
[2019-01-04 00:51] VITALS: BP 106/72; PULSE 96; RESP 18; TEMP 37.2
[2019-01-11 10:09] VITALS: BP 150/98; PULSE 78; RESP 18; TEMP 37.4; BMI 29.0
--- NOTE | 2019-01-11 10:45 | PCM.WC.PN ---
(1) Decubitus ulcer of lower back, stage 3 Status: Chronic Current Visit: Yes Code(s): L89.103 - Pressure ulcer of unspecified part of back, stage 3 Comment: midline (2) Spina bifida Status: Chronic Current Visit: Yes Qualifiers: Code(s): Q05.9 - Spina bifida, unspecified Type of Wound Date of Service: 01/11/19 Chief Complaint: right foot wound healed History of Wound: Ms. Crews is a 43-year-old who is seen today as a courtesy visit for Dr. Kinney with a lower back ulcer noted the beginning of October. She denies any known precipitating factor but does have spina bifida and spends a significant amount of time in a wheelchair. She has had ulcers in this area in the past. She initially had been doing some conservative management at home without any significant improvement. Initially there was drainage noted however there is not any significant drainage at this time. She denies chills, fever otherwise feeling of unwell. She has been tolerating teatment with Promogran moistened and changed every other day. She has been off work for several weeks. Progress of Wound: Has had 4 applications of epifix so far. Skin breakdown with some worsening. Prior ulcer has improved. - Physical Exam Vital Signs Temp Pulse Resp BP 99.3 F H 78 18 150/98 H 01/11/19 10:09 01/11/19 10:09 01/11/19 10:09 01/11/19 10:09 General: Alert, Oriented x3, Cooperative, No apparent distress HEENT: Atraumatic, Normocephalic Oral: Moist Mucosa Neck: Supple Lungs: Normal air movement Abdomen: Non Tender, Obese Extremities: No cyanosis Skin: Ulcer/ Wound Wound Measurements and Assessment WC - Nurse 1 - General Ulcer Measurement Start: 01/11/19 10:08 Freq: Status: Active Protocol: Activity Type Activity Date Activity User E-Sign Co-Sign Detail Recorded Client Recorded Date Recorded By Document 01/11/19 10:09 [email or web address] [id number] 01/11/19 10:16 [email or web address] 01/11/19 10:09 Wound Center Nurse 1 [Ulcer Assessment] #3- LUMBAR AREA -Combined with other wound No -Current Size (cm) - Length 0.7 -Current Size (cm) - Width 2.4 -Current Size (cm) - Depth 0.5 -Total Square Cm 1.68 -Tunneling No -Undermining/Tunneling No -Circular Undermining No -Exudate Amt Small -Exudate Type Serosanguineous -Wound Margin Flat & Intact -Granulation Amt Large (67-100%) -Granulation Quality [place] -Slough/Fibrin Yes -Necrosis Amt Medium (34-66%) -Necrotic Tissue Type Adherent Slough -Structure Exposed N/A -Texture (Patience-wound Skin Appearance) Assessed, Scarring -Moisture (Patience-wound Skin Appearance Assessed ) -Color (Patience-wound Skin Appearance) Assessed -Temperature (Patience-wound Skin No Abnormality Appearance) (Pt Warm) -Tenderness on Palpation (Patience-wound No Skin Appearance) -Ulcer Cleansing Wound Cleanser -Foul Odor after Cleansing No -Anesthetic Used 5% Lidocaine Gel WC - Nurse 2 - General Ulcer CM Notes Start: 01/11/19 10:08 Freq: Status: Active Protocol: Activity Type Activity Date Activity User E-Sign Co-Sign Detail Recorded Client Recorded Date Recorded By Document 01/11/19 10:25 MW [id number] 01/11/19 10:33 MW 01/11/19 10:25 Wound Center Nurse 2 [Procedure/Treatment] -Time 10:25 -Correct Patient Yes -Correct Side, Site, Position Yes -Correct Procedure Yes -Procedure Performed Yes -Type of Procedure Debridement -Clinical Debridement Subcutaneous -Post Debridement Size (cm) - Length 0.8 -Post Debridement Size (cm) - Width 2.5 -Post Debridement Size (cm) - Depth 0.3 -Total Square Cm 2.00 -Wound/Ulcer Outcome Not Healed -Ulcer Cleansing Rinsed/ Irrigated with Saline -Foul Odor after Cleansing No -Bioengineered Tissue Yes -Type of bioengineered Tissue EPIFIX -Bleeding Controlled with Pressure -Offloading No -Treatment Response Procedure Tolerated Well [See Physician Procedure note for Specifics] Pain Scale: 0-10 Numeric [Pain] -Is Patient Pain Free? Yes Musculoskeletal: No Muscle Wasting Neurological: Cranial nerves II-XII grossly intact Psych/Mental Status: Normal Affect Debridement Note Post-Debridement Measurements/Treatment WC - Nurse 2 - General Ulcer CM Notes Start: 01/11/19 10:08 Freq: Status: Active Protocol: Activity Type Activity Date Activity User E-Sign Co-Sign Detail Recorded Client Recorded Date Recorded By Document 01/11/19 10:25 MW [id number] 01/11/19 10:33 MW 01/11/19 10:25 Wound Center Nurse 2 #3- LUMBAR AREA -Time 10:25 -Correct Patient Yes -Correct Side, Site, Position Yes -Correct Procedure Yes -Procedure Performed Yes -Type of Procedure Debridement -Clinical Debridement Subcutaneous -Post Debridement Size (cm) - Length 0.8 -Post Debridement Size (cm) - Width 2.5 -Post Debridement Size (cm) - Depth 0.3 -Total Square Cm 2.00 -Wound/Ulcer Outcome Not Healed -Ulcer Cleansing Rinsed/ Irrigated with Saline -Foul Odor after Cleansing No -Bioengineered Tissue Yes -Type of bioengineered Tissue EPIFIX -Bleeding Controlled with Pressure -Offloading No -Treatment Response Procedure Tolerated Well Pain Scale: 0-10 Numeric Is Patient Pain Free? Yes Wound debrided: Mild lower back Wound Grade/Stage: Stage III Type of Debridement: Excisional debridement Anesthesia Used: 4% Lidocaine Solution Depth: Down to and including healthy tissue, in the subcutaneous layer Percentage of wound debrided: 100 Instrument Used: 3mm curette Tissue Removed: Slough and devitalized tissue Severity: Fat Layer Exposed Amount of bleeding with debridement: Mild Bleeding Controlled with: Pressure Patient tolerated procedure well Assessment/Plan Active Problems (Last Updated 03/11/18 @ 14:54 by Cecil Butts DO) Spina bifida (Chronic) Decubitus ulcer of lower back, stage 3 (Chronic) midline Assessment: right foot wound (possible burn) - healed today. spina bifida. malnutrition. lower extremity edema Plan: Debridement done as documented above, procedure was well tolearted. Cultures reviewed, miniml growth possibly contaminant. Patient also allergic to Ciprofloxacin. 5th application of Epifix done today using 100 % of product.Moistened with saline, wound veil over top. Seristrips and blue tape to secure. Leave in place for 1 week. Zinc oxide cream to surrounding area. Increased protein intake also recommended. All their Questions were answered and they were advised to call with any further questions or concerns. She continues to meet medical necessity for Epifix due to non improvement with traditional wound care products after 6 weeks. Follow-up in 1 week. This note was generated with [employer] software. It may contain incorrect words, spelling, and punctuation that were not noted in checking the note before signing.
[2019-01-17 09:35] VITALS: BP 120/68; PULSE 100; RESP 16; TEMP 37.4; BMI 29.0
--- NOTE | 2019-01-17 09:59 | PCM.WC.PN ---
(1) Decubitus ulcer of lower back, stage 3 Status: Chronic Current Visit: Yes Code(s): L89.103 - Pressure ulcer of unspecified part of back, stage 3 Comment: midline (2) Spina bifida Status: Chronic Current Visit: Yes Qualifiers: Code(s): Q05.9 - Spina bifida, unspecified Type of Wound Date of Service: 01/17/19 Chief Complaint: right foot wound healed History of Wound: Ms. Crews is a 43-year-old who is seen today as a courtesy visit for Dr. Kinney with a lower back ulcer noted the beginning of October. She denies any known precipitating factor but does have spina bifida and spends a significant amount of time in a wheelchair. She has had ulcers in this area in the past. She initially had been doing some conservative management at home without any significant improvement. Initially there was drainage noted however there is not any significant drainage at this time. She denies chills, fever otherwise feeling of unwell. She has been tolerating teatment with Promogran moistened and changed every other day. She has been off work for several weeks. Progress of Wound: Has had 5 applications of epifix so far. Improving. No ne concerns at this time. - Physical Exam Vital Signs Temp Pulse Resp BP 99.3 F H 100 16 120/68 01/17/19 09:35 01/17/19 09:35 01/17/19 09:35 01/17/19 09:35 General: Alert, Oriented x3, Cooperative, No apparent distress HEENT: Atraumatic, Normocephalic Oral: Moist Mucosa Neck: Supple Lungs: Normal air movement Extremities: No cyanosis Skin: Ulcer/ Wound Wound Measurements and Assessment WC - Nurse 1 - General Ulcer Measurement Start: 01/11/19 10:08 Freq: Status: Active Protocol: Activity Type Activity Date Activity User E-Sign Co-Sign Detail Recorded Client Recorded Date Recorded By Document 01/17/19 09:35 [facility] [id number] 01/17/19 09:39 [facility] 01/17/19 09:35 Wound Center Nurse 1 [Ulcer Assessment] #3- LUMBAR AREA -Combined with other wound No -Current Size (cm) - Length 0.8 -Current Size (cm) - Width 2.3 -Current Size (cm) - Depth 0.6 -Total Square Cm 1.84 -Photo Taken No -Epithelialization None Present -Tunneling No -Undermining/Tunneling No -Circular Undermining No -Exudate Amt Small -Exudate Type Serous -Wound Margin Thickened -Granulation Amt Medium (34-66%) -Granulation Quality Red -Slough/Fibrin Yes -Necrosis Amt Small (1-33%) -Necrotic Tissue Type Adherent Slough -Texture (Patience-wound Skin Appearance) Assessed, Scarring -Moisture (Patience-wound Skin Appearance Assessed ) -Color (Patience-wound Skin Appearance) Assessed -Temperature (Patience-wound Skin No Abnormality Appearance) (Pt Warm) -Tenderness on Palpation (Patience-wound No Skin Appearance) -Foul Odor after Cleansing No -Anesthetic Used 5% Lidocaine Gel WC - Nurse 2 - General Ulcer CM Notes Start: 01/11/19 10:08 Freq: Status: Active Protocol: Activity Type Activity Date Activity User E-Sign Co-Sign Detail Recorded Client Recorded Date Recorded By Document 01/17/19 09:49 [id number] 01/17/19 09:54 01/17/19 09:49 Wound Center Nurse 2 [Procedure/Treatment] -Time 09:49 -Correct Patient Yes -Correct Side, Site, Position Yes -Correct Procedure Yes -Procedure Performed Yes -Type of Procedure Debridement -Clinical Debridement Subcutaneous -Post Debridement Size (cm) - Length 0.4 -Post Debridement Size (cm) - Width 2.1 -Post Debridement Size (cm) - Depth 0.3 -Total Square Cm 0.84 -Wound/Ulcer Outcome Not Healed -Ulcer Cleansing Rinsed/ Irrigated with Saline -Foul Odor after Cleansing No -Bioengineered Tissue Yes -Type of bioengineered Tissue EPIFIX -Expiration Date 06/06/23 -Product Lot Number [id number] -Percent Used 100 -Saline Lot Number [id number] -Bleeding Controlled with Pressure -Offloading No -Treatment Response Procedure Tolerated Well [See Physician Procedure note for Specifics] Pain Scale: 0-10 Numeric [Pain] -Is Patient Pain Free? Yes Musculoskeletal: No Muscle Wasting Neurological: Cranial nerves II-XII grossly intact Psych/Mental Status: Normal Affect Debridement Note Post-Debridement Measurements/Treatment WC - Nurse 2 - General Ulcer CM Notes Start: 01/11/19 10:08 Freq: Status: Active Protocol: Activity Type Activity Date Activity User E-Sign Co-Sign Detail Recorded Client Recorded Date Recorded By Document 01/11/19 10:25 MW [id number] 01/11/19 10:33 MW Document 01/17/19 09:49 [id number] 01/17/19 09:54 01/11/19 01/17/19 10:25 09:49 Wound Center Nurse 2 #3- LUMBAR AREA -Time 10:25 09:49 -Correct Patient Yes Yes -Correct Side, Site, Position Yes Yes -Correct Procedure Yes Yes -Procedure Performed Yes Yes -Type of Procedure Debridement Debridement -Clinical Debridement Subcutaneous Subcutaneous -Post Debridement Size (cm) - Length 0.8 0.4 -Post Debridement Size (cm) - Width 2.5 2.1 -Post Debridement Size (cm) - Depth 0.3 0.3 -Total Square Cm 2.00 0.84 -Wound/Ulcer Outcome Not Healed Not Healed -Ulcer Cleansing Rinsed/ Rinsed/ Irrigated with Irrigated with Saline Saline -Foul Odor after Cleansing No No -Bioengineered Tissue Yes Yes -Type of bioengineered Tissue EPIFIX EPIFIX -Expiration Date 05/06/23 06/06/23 -Product Lot Number [id number] -Percent Used 100 100 -Saline Lot Number [id number] -Bleeding Controlled with Pressure Pressure -Offloading No No -Treatment Response Procedure Procedure Tolerated Well Tolerated Well Pain Scale: 0-10 Numeric Is Patient Pain Free? Yes Yes Wound debrided: Mid lower back Wound Grade/Stage: Stage III Type of Debridement: Excisional debridement Anesthesia Used: 4% Lidocaine Solution Depth: Down to and including healthy tissue, in the subcutaneous layer Percentage of wound debrided: 100 Instrument Used: 3mm curette Tissue Removed: Slough and dveitalized tissue Severity: Fat Layer Exposed Amount of bleeding with debridement: Mild Bleeding Controlled with: Pressure Assessment/Plan Active Problems (Last Updated 03/11/18 @ 14:54 by Cecil Butts DO) Spina bifida (Chronic) Decubitus ulcer of lower back, stage 3 (Chronic) midline Assessment: right foot wound (possible burn) - healed today. spina bifida. malnutrition. lower extremity edema Plan: Improving. Debridement done as documented above, procedure was well tolearted. 6th application of Epifix done today using 100 % of product.Moistened with saline, wound veil over top. Seristrips and blue tape to secure. Leave in place for 1 week. Zinc oxide cream to surrounding area. Increased protein intake also recommended. All their Questions were answered and they were advised to call with any further questions or concerns. She continues to meet medical necessity for Epifix due to non improvement with traditional wound care products after 6 weeks. Follow-up in 1 week. This note was generated with [employer] dictation software. It may contain incorrect words, spelling, and punctuation that were not noted in checking the note before signing.
[2019-01-25 10:56] VITALS: BP 144/94; PULSE 87; RESP 16; TEMP 36.4; BMI 29.0
--- NOTE | 2019-01-25 11:39 | PN.PCM_ITS ---
(1) Decubitus ulcer of lower back, stage 3 Status: Chronic Current Visit: Yes Code(s): L89.103 - Pressure ulcer of unspecified part of back, stage 3 Comment: midline (2) Spina bifida Status: Chronic Current Visit: Yes Qualifiers: Code(s): Q05.9 - Spina bifida, unspecified Type of Wound Date of Service: 01/25/19 Chief Complaint: right foot wound healed History of Wound: Ms. Crews is a 43-year-old who is seen today as a courtesy visit for Dr. Kinney with a lower back ulcer noted the beginning of October. She denies any known precipitating factor but does have spina bifida and spends a significant amount of time in a wheelchair. She has had ulcers in this area in the past. She initially had been doing some conservative management at home without any significant improvement. Initially there was drainage noted however there is not any significant drainage at this time. She denies chills, fever otherwise feeling of unwell. She has been tolerating teatment with Promogran moistened and changed every other day. She has been off work for several weeks. Progress of Wound: Has had 6 applications of epifix so far. Improving. No new concerns at this time. - Physical Exam Vital Signs Temp Pulse Resp BP 97.6 F L 87 16 144/94 H 01/25/19 10:56 01/25/19 10:56 01/25/19 10:56 01/25/19 10:56 General: Alert, Oriented x3, Cooperative, No apparent distress HEENT: Atraumatic, Normocephalic Oral: Moist Mucosa Neck: Supple Lungs: Normal air movement Abdomen: Non Tender, Obese Extremities: No cyanosis Skin: Ulcer/ Wound Wound Measurements and Assessment WC - Nurse 1 - General Ulcer Measurement Start: 01/11/19 10:08 Freq: Status: Active Protocol: Activity Type Activity Date Activity User E-Sign Co-Sign Detail Recorded Client Recorded Date Recorded By Document 01/25/19 10:56 PRASANTH [id number] 01/25/19 11:07 BS 01/25/19 10:56 Wound Center Nurse 1 [Ulcer Assessment] #3- LUMBAR AREA -Combined with other wound No -Current Size (cm) - Length 1.0 -Current Size (cm) - Width 2.0 -Current Size (cm) - Depth 0.7 -Total Square Cm 2.00 -Photo Taken No -Granulation Quality [place],Red -Slough/Fibrin Yes -Moisture (Patience-wound Skin Appearance Assessed ) -Color (Patience-wound Skin Appearance) Assessed -Temperature (Patience-wound Skin No Abnormality Appearance) (Pt Warm) -Tenderness on Palpation (Patience-wound No Skin Appearance) -Ulcer Cleansing Rinsed/ Irrigated with Saline -Foul Odor after Cleansing No -Anesthetic Used 5% Lidocaine Gel - Nurse 2 - General Ulcer CM Notes Start: 01/11/19 10:08 Freq: Status: Active Protocol: Activity Type Activity Date Activity User E-Sign Co-Sign Detail Recorded Client Recorded Date Recorded By Document 01/25/19 11:19 MW [id number] 01/25/19 11:27 MW 01/25/19 11:19 Wound Center Nurse 2 [Procedure/Treatment] -Time 11:21 -Correct Patient Yes -Correct Side, Site, Position Yes -Correct Procedure Yes -Procedure Performed Yes -Type of Procedure Debridement -Clinical Debridement Subcutaneous -Post Debridement Size (cm) - Length 0.3 -Post Debridement Size (cm) - Width 1.8 -Post Debridement Size (cm) - Depth 0 -Total Square Cm 0.54 -Wound/Ulcer Outcome Not Healed -Ulcer Cleansing Rinsed/ Irrigated with Saline -Foul Odor after Cleansing No -Bioengineered Tissue Yes -Type of bioengineered Tissue EPIFIX -Expiration Date 06/06/23 -Product Lot Number [id number] -Percent Used 100 -Saline Lot Number [id number] -Bleeding Controlled with Pressure -Offloading No -Treatment Response Procedure Tolerated Well [See Physician Procedure note for Specifics] Pain Scale: 0-10 Numeric [Pain] -Is Patient Pain Free? Yes Musculoskeletal: No Muscle Wasting Neurological: Cranial nerves II-XII grossly intact Psych/Mental Status: Normal Affect Debridement Note Post-Debridement Measurements/Treatment - Nurse 2 - General Ulcer CM Notes Start: 01/11/19 10:08 Freq: Status: Active Protocol: Activity Type Activity Date Activity User E-Sign Co-Sign Detail Recorded Client Recorded Date Recorded By Document 01/11/19 10:25 MW [id number] 01/11/19 10:33 MW Document 01/17/19 09:49 JF [id number] 01/17/19 09:54 JF Document 01/25/19 11:19 MW [id number] 01/25/19 11:27 MW 01/11/19 01/17/19 01/25/19 10:25 09:49 11:19 Wound Center Nurse 2 #3- LUMBAR AREA -Time 10: 09:49 11:21 -Correct Patient Yes Yes Yes -Correct Side, Site, Position Yes Yes Yes -Correct Procedure Yes Yes Yes -Procedure Performed Yes Yes Yes -Type of Procedure Debridement Debridement Debridement -Clinical Debridement Subcutaneous Subcutaneous Subcutaneous -Post Debridement Size (cm) - Length 0.8 0.4 0.3 -Post Debridement Size (cm) - Width 2.5 2.1 1.8 -Post Debridement Size (cm) - Depth 0.3 0.3 0 -Total Square Cm 2.00 0.84 0.54 -Wound/Ulcer Outcome Not Healed Not Healed Not Healed -Ulcer Cleansing Rinsed/ Rinsed/ Rinsed/ Irrigated with Irrigated with Irrigated with Saline Saline Saline -Foul Odor after Cleansing No No No -Bioengineered Tissue Yes Yes Yes -Type of bioengineered Tissue EPIFIX EPIFIX EPIFIX -Expiration Date 05/06/23 06/06/23 06/06/23 -Product Lot Number [id number] -Percent Used 100 100 100 -Saline Lot Number [id number] -Bleeding Controlled with Pressure Pressure Pressure -Offloading No No No -Treatment Response Procedure Procedure Procedure Tolerated Well Tolerated Well Tolerated Well Pain Scale: 0-10 Numeric Is Patient Pain Free? Yes Yes Yes Wound debrided: Mid low back Wound Grade/Stage: Stage III Type of Debridement: Excisional debridement Anesthesia Used: 4% Lidocaine Solution Depth: Down to and including healthy tissue, in the subcutaneous layer Percentage of wound debrided: 100 Instrument Used: 3mm curette Tissue Removed: Slough and devitalized tissue Severity: Fat Layer Exposed Amount of bleeding with debridement: Mild Bleeding Controlled with: Pressure Patient tolerated procedure well Assessment/Plan Active Problems (Last Updated 03/11/18 @ 14:54 by Cecil Butts DO) Spina bifida (Chronic) Decubitus ulcer of lower back, stage 3 (Chronic) midline Assessment: right foot wound (possible burn) - healed today. spina bifida. malnutrition. lower extremity edema Plan: Improving. Debridement done as documented above, procedure was well tolearted. 7th application of Epifix done today using 100 % of product.Moistened with saline, adaptic touch over top. Steristrips and blue tape to secure. Leave in place for 1 week. Zinc oxide cream to surrounding area. Increased protein intake also recommended. All their Questions were answered and they were advised to call with any further questions or concerns. She continues to meet medical necessity for Epifix due to non improvement with traditional wound care products after 6 weeks. Follow-up in 1 week. This note was generated with [employer] dictation software. It may contain incorrect words, spelling, and punctuation that were not noted in checking the note before signing.
[2019-02-01 10:20] VITALS: BP 161/99; PULSE 106; RESP 18; TEMP 37.2; BMI 29.0
--- NOTE | 2019-02-01 10:50 | PCM.WC.PN ---
(1) Decubitus ulcer of lower back, stage 3 Status: Chronic Current Visit: Yes Code(s): L89.103 - Pressure ulcer of unspecified part of back, stage 3 Comment: midline (2) Spina bifida Status: Chronic Current Visit: Yes Qualifiers: Code(s): Q05.9 - Spina bifida, unspecified Type of Wound Date of Service: 02/01/19 Chief Complaint: right foot wound healed History of Wound: Ms. Crews is a 43-year-old who is seen today as a courtesy visit for Dr. Kinney with a lower back ulcer noted the beginning of October. She denies any known precipitating factor but does have spina bifida and spends a significant amount of time in a wheelchair. She has had ulcers in this area in the past. She initially had been doing some conservative management at home without any significant improvement. Initially there was drainage noted however there is not any significant drainage at this time. She denies chills, fever otherwise feeling of unwell. She has been tolerating teatment with Promogran moistened and changed every other day. She has been off work for several weeks. Progress of Wound: Has had 7 applications of epifix so far. Improving. No new concerns at this time. - Physical Exam Vital Signs Temp Pulse Resp BP 98.9 F 106 H 18 161/99 H 02/01/19 10:20 02/01/19 10:20 02/01/19 10:20 02/01/19 10:20 General: Alert, Oriented x3, Cooperative, No apparent distress HEENT: Atraumatic, Normocephalic Oral: Moist Mucosa Neck: Supple Lungs: Normal air movement Extremities: No cyanosis Skin: Ulcer/ Wound Wound Measurements and Assessment WC - Nurse 1 - General Ulcer Measurement Start: 01/11/19 10:08 Freq: Status: Active Protocol: Activity Type Activity Date Activity User E-Sign Co-Sign Detail Recorded Client Recorded Date Recorded By Document 02/01/19 10:20 DL [id number] 02/01/19 10:23 DL 02/01/19 10:20 Wound Center Nurse 1 [Ulcer Assessment] #3- LUMBAR AREA -Combined with other wound No -Current Size (cm) - Length 0.3 -Current Size (cm) - Width 2.5 -Current Size (cm) - Depth 0.4 -Total Square Cm 0.75 -Photo Taken No -Tunneling No -Undermining/Tunneling No -Circular Undermining No -Exudate Amt Small -Exudate Type Serosanguineous -Wound Margin Thickened & Rolled Under -Granulation Amt Medium (34-66%) -Granulation Quality [place] -Slough/Fibrin Yes -Necrosis Amt Small (1-33%) -Necrotic Tissue Type Adherent Slough -Structure Exposed N/A -Texture (Patience-wound Skin Appearance) Assessed, Scarring -Moisture (Patience-wound Skin Appearance Assessed ) -Color (Patience-wound Skin Appearance) Assessed -Temperature (Patience-wound Skin No Abnormality Appearance) (Pt Warm) -Tenderness on Palpation (Patience-wound No Skin Appearance) -Ulcer Cleansing Wound Cleanser -Foul Odor after Cleansing No -Anesthetic Used 5% Lidocaine Gel WC - Nurse 2 - General Ulcer CM Notes Start: 01/11/19 10:08 Freq: Status: Active Protocol: Activity Type Activity Date Activity User E-Sign Co-Sign Detail Recorded Client Recorded Date Recorded By Document 02/01/19 10:35 MW [id number] 02/01/19 10:43 MW 02/01/19 10:35 Wound Center Nurse 2 [Procedure/Treatment] -Time 10:36 -Correct Patient Yes -Correct Side, Site, Position Yes -Correct Procedure Yes -Procedure Performed Yes -Type of Procedure Debridement -Clinical Debridement Subcutaneous -Post Debridement Size (cm) - Length 0.3 -Post Debridement Size (cm) - Width 1.5 -Post Debridement Size (cm) - Depth 0.3 -Total Square Cm 0.45 -Wound/Ulcer Outcome Not Healed -Ulcer Cleansing Rinsed/ Irrigated with Saline -Foul Odor after Cleansing No -Bioengineered Tissue Yes -Type of bioengineered Tissue EPIFIX -Expiration Date 05/06/23 -Product Lot Number [id number] -Percent Used 100 -Saline Lot Number [id number] -Bleeding Controlled with Pressure -Offloading No -Treatment Response Procedure Tolerated Well [See Physician Procedure note for Specifics] Pain Scale: 0-10 Numeric [Pain] -Is Patient Pain Free? Yes Neurological: Cranial nerves II-XII grossly intact Psych/Mental Status: Normal Affect Debridement Note Post-Debridement Measurements/Treatment WC - Nurse 2 - General Ulcer CM Notes Start: 01/11/19 10:08 Freq: Status: Active Protocol: Activity Type Activity Date Activity User E-Sign Co-Sign Detail Recorded Client Recorded Date Recorded By Document 01/11/19 10:25 MW [id number] 01/11/19 10:33 MW Document 01/17/19 09:49 JF [id number] 01/17/19 09:54 JF Document 01/25/19 11:19 MW [id number] 01/25/19 11:27 MW Document 02/01/19 10:35 MW [id number] 02/01/19 10:43 MW 01/11/19 01/17/19 01/25/19 10:25 09:49 11:19 Wound Center Nurse 2 #3- LUMBAR AREA -Time 10:25 09:49 11:21 -Correct Patient Yes Yes Yes -Correct Side, Site, Position Yes Yes Yes -Correct Procedure Yes Yes Yes -Procedure Performed Yes Yes Yes -Type of Procedure Debridement Debridement Debridement -Clinical Debridement Subcutaneous Subcutaneous Subcutaneous -Post Debridement Size (cm) - Length 0.8 0.4 0.3 -Post Debridement Size (cm) - Width 2.5 2.1 1.8 -Post Debridement Size (cm) - Depth 0.3 0.3 0 -Total Square Cm 2.00 0.84 0.54 -Wound/Ulcer Outcome Not Healed Not Healed Not Healed -Ulcer Cleansing Rinsed/ Rinsed/ Rinsed/ Irrigated with Irrigated with Irrigated with Saline Saline Saline -Foul Odor after Cleansing No No No -Bioengineered Tissue Yes Yes Yes -Type of bioengineered Tissue EPIFIX EPIFIX EPIFIX -Expiration Date 05/06/23 06/06/23 06/06/23 -Product Lot Number [id number] -Percent Used 100 100 100 -Saline Lot Number [id number] -Bleeding Controlled with Pressure Pressure Pressure -Offloading No No No -Treatment Response Procedure Procedure Procedure Tolerated Well Tolerated Well Tolerated Well Pain Scale: 0-10 Numeric Is Patient Pain Free? Yes Yes Yes 02/01/19 10:35 Wound Center Nurse 2 #3- LUMBAR AREA -Time 10:36 -Correct Patient Yes -Correct Side, Site, Position Yes -Correct Procedure Yes -Procedure Performed Yes -Type of Procedure Debridement -Clinical Debridement Subcutaneous -Post Debridement Size (cm) - Length 0.3 -Post Debridement Size (cm) - Width 1.5 -Post Debridement Size (cm) - Depth 0.3 -Total Square Cm 0.45 -Wound/Ulcer Outcome Not Healed -Ulcer Cleansing Rinsed/ Irrigated with Saline -Foul Odor after Cleansing No -Bioengineered Tissue Yes -Type of bioengineered Tissue EPIFIX -Expiration Date 05/06/23 -Product Lot Number [id number] -Percent Used 100 -Saline Lot Number [id number] -Bleeding Controlled with Pressure -Offloading No -Treatment Response Procedure Tolerated Well Pain Scale: 0-10 Numeric Is Patient Pain Free? Yes Wound debrided: Mild lower back Wound Grade/Stage: Stage III Type of Debridement: Excisional debridement Anesthesia Used: 5% Lidocaine Gel Depth: Down to and including healthy tissue, in the subcutaneous layer Percentage of wound debrided: 100 Instrument Used: 3mm curette Tissue Removed: Devitalized tissue Severity: Fat Layer Exposed Amount of bleeding with debridement: Mild Bleeding Controlled with: Pressure Patient tolerated procedure well Assessment/Plan Active Problems (Last Updated 03/11/18 @ 14:54 by Cecil Butts DO) Spina bifida (Chronic) Decubitus ulcer of lower back, stage 3 (Chronic) midline Assessment: right foot wound (possible burn) - healed today. spina bifida. malnutrition. lower extremity edema Plan: Improving. Debridement done as documented above, procedure was well tolearted. 8th application of Epifix done today using 100 % of product.Moistened with saline, adaptic touch over top. Steristrips and blue tape to secure. Leave in place for 1 week. Zinc oxide cream to surrounding area. Increased protein intake also recommended. All their Questions were answered and they were advised to call with any further questions or concerns. She continues to meet medical necessity for Epifix due to non improvement with traditional wound care products after 6 weeks. Follow-up in 1 week. This note was generated with [employer] software. It may contain incorrect words, spelling, and punctuation that were not noted in checking the note before signing.
== END 2019-02-03 23:59 ==
LOC: WC 10:00
PROVIDERS: Family Provider Family Medicine; PCP Family Medicine; Visit Provider Internal Medicine
DX: L89.103 Pressure ulcer of unspecified part of back, stage 3 (principal); Q05.9 Spina bifida, unspecified; Z79.82 Long term (current) use of aspirin; Z79.899 Other long term (current) drug therapy; R60.0 Localized edema; Z87.2 Personal history of diseases of the skin and subcutaneous tissue
CPT/HCPCS: 15271; Q4186

== ENCOUNTER → 2019-02-22 13:07 | Outpatient (CLI) | payer MEDICARE, MEDICAID, SELFPAY ==
[2019-02-22 11:48] VITALS: BMI 29.0
== END ==
PROVIDERS: Family Provider Family Medicine; PCP Family Medicine; Referring Provider Urology; Visit Provider Urology
DX: N39.0 Urinary tract infection, site not specified (principal)
CPT/HCPCS: 87086; 87088; 87186

== ENCOUNTER 2019-03-01 10:15 | Outpatient (RCR) | payer MEDICARE, MEDICAID, SELFPAY ==
[2019-02-04 00:43] VITALS: BP 161/99; PULSE 106; RESP 18; TEMP 37.2
[2019-02-08 11:24] VITALS: BP 128/87; PULSE 93; RESP 18; TEMP 36.2; BMI 29.0
--- NOTE | 2019-02-08 19:26 | PCM.WC.PN ---
(1) Decubitus ulcer of lower back, stage 3 Status: Chronic Current Visit: Yes Code(s): L89.103 - Pressure ulcer of unspecified part of back, stage 3 Comment: midline (2) Spina bifida Status: Chronic Current Visit: Yes Qualifiers: Code(s): Q05.9 - Spina bifida, unspecified Type of Wound Date of Service: 02/08/19 Chief Complaint: right foot wound healed History of Wound: Ms. Crews is a 43-year-old who is seen today as a courtesy visit for Dr. Kinney with a lower back ulcer noted the beginning of October. She denies any known precipitating factor but does have spina bifida and spends a significant amount of time in a wheelchair. She has had ulcers in this area in the past. She initially had been doing some conservative management at home without any significant improvement. Initially there was drainage noted however there is not any significant drainage at this time. She denies chills, fever otherwise feeling of unwell. She has been tolerating teatment with Promogran moistened and changed every other day. She has been off work for several weeks. Progress of Wound: Has had 8 applications of epifix so far. Stable. No new concerns at this time. - Physical Exam Vital Signs Temp Pulse Resp BP 97.1 F L 93 18 128/87 H 02/08/19 11:24 02/08/19 11:24 02/08/19 11:24 02/08/19 11:24 General: Alert, Oriented x3, Cooperative, No apparent distress HEENT: Atraumatic, Normocephalic Oral: Moist Mucosa Neck: Supple Lungs: Normal air movement Extremities: No cyanosis Skin: Ulcer/ Wound Wound Measurements and Assessment WC - Nurse 1 - General Ulcer Measurement Start: 02/08/19 11:24 Freq: Status: Active Protocol: Activity Type Activity Date Activity User E-Sign Co-Sign Detail Recorded Client Recorded Date Recorded By Document 02/08/19 11:24 [id number] 02/08/19 11:29 RB 02/08/19 11:24 Wound Center Nurse 1 [Ulcer Assessment] #3- LUMBAR AREA -Combined with other wound No -Current Size (cm) - Length 0.5 -Current Size (cm) - Width 2.2 -Current Size (cm) - Depth 0.2 -Total Square Cm 1.10 -Tunneling No -Undermining/Tunneling No -Circular Undermining No -Exudate Amt Small -Exudate Type Serosanguineous -Wound Margin Thickened -Granulation Amt Medium (34-66%) -Granulation Quality [place] -Necrosis Amt Medium (34-66%) -Necrotic Tissue Type Adherent Slough -Structure Exposed N/A -Texture (Patience-wound Skin Appearance) Assessed, Scarring -Moisture (Patience-wound Skin Appearance Assessed ) -Color (Patience-wound Skin Appearance) Assessed -Temperature (Patience-wound Skin No Abnormality Appearance) (Pt Warm) -Tenderness on Palpation (Patience-wound No Skin Appearance) -Ulcer Cleansing Wound Cleanser -Foul Odor after Cleansing No -Anesthetic Used 5% Lidocaine Gel WC - Nurse 2 - General Ulcer CM Notes Start: 02/08/19 11:24 Freq: Status: Active Protocol: Activity Type Activity Date Activity User E-Sign Co-Sign Detail Recorded Client Recorded Date Recorded By Document 02/08/19 11:48 MW [id number] 02/08/19 11:55 MW 02/08/19 11:48 Wound Center Nurse 2 [Procedure/Treatment] -Time 11:52 -Correct Patient Yes -Correct Side, Site, Position Yes -Correct Procedure Yes -Procedure Performed Yes -Type of Procedure Debridement -Clinical Debridement Subcutaneous -Post Debridement Size (cm) - Length 0.4 -Post Debridement Size (cm) - Width 1.8 -Post Debridement Size (cm) - Depth 0.2 -Total Square Cm 0.72 -Wound/Ulcer Outcome Not Healed -Ulcer Cleansing Rinsed/ Irrigated with Saline -Foul Odor after Cleansing No -Bioengineered Tissue Yes -Type of bioengineered Tissue EPIFIX -Expiration Date 06/06/23 -Product Lot Number [id number] -Percent Used 100 -Saline Lot Number [id number] -Bleeding Controlled with Pressure -Offloading No -Treatment Response Procedure Tolerated Well [See Physician Procedure note for Specifics] Pain Scale: 0-10 Numeric [Pain] -Is Patient Pain Free? Yes Musculoskeletal: No Muscle Wasting Neurological: Cranial nerves II-XII grossly intact Psych/Mental Status: Normal Affect Debridement Note Post-Debridement Measurements/Treatment WC - Nurse 2 - General Ulcer CM Notes Start: 02/08/19 11:24 Freq: Status: Active Protocol: Activity Type Activity Date Activity User E-Sign Co-Sign Detail Recorded Client Recorded Date Recorded By Document 02/08/19 11:48 MW [id number] 02/08/19 11:55 MW 02/08/19 11:48 Wound Center Nurse 2 #3- LUMBAR AREA -Time 11:52 -Correct Patient Yes -Correct Side, Site, Position Yes -Correct Procedure Yes -Procedure Performed Yes -Type of Procedure Debridement -Clinical Debridement Subcutaneous -Post Debridement Size (cm) - Length 0.4 -Post Debridement Size (cm) - Width 1.8 -Post Debridement Size (cm) - Depth 0.2 -Total Square Cm 0.72 -Wound/Ulcer Outcome Not Healed -Ulcer Cleansing Rinsed/ Irrigated with Saline -Foul Odor after Cleansing No -Bioengineered Tissue Yes -Type of bioengineered Tissue EPIFIX -Expiration Date 06/06/23 -Product Lot Number [id number] -Percent Used 100 -Saline Lot Number [id number] -Bleeding Controlled with Pressure -Offloading No -Treatment Response Procedure Tolerated Well Pain Scale: 0-10 Numeric Is Patient Pain Free? Yes Wound debrided: Mid lower back Wound Grade/Stage: Stage III Type of Debridement: Excisional debridement Anesthesia Used: 4% Lidocaine Solution, 5% Lidocaine Gel Depth: in the subcutaneous layer Percentage of wound debrided: 100 Instrument Used: 3mm curette Tissue Removed: Slough and devitalized tissue Severity: Fat Layer Exposed Amount of bleeding with debridement: Mild Bleeding Controlled with: Pressure Patient tolerated procedure well Assessment/Plan Active Problems (Last Updated 03/11/18 @ 14:54 by Cecil Butts DO) Spina bifida (Chronic) Decubitus ulcer of lower back, stage 3 (Chronic) midline Assessment: right foot wound (possible burn) - healed today. spina bifida. malnutrition. lower extremity edema Plan: Stable. Debridement done as documented above, procedure was well tolearted. 9th application of Epifix done today using 100 % of product.Moistened with saline, adaptic touch over top. Steristrips and blue tape to secure. Leave in place for 1 week. Zinc oxide cream to surrounding area. Increased protein intake also recommended. All their Questions were answered and they were advised to call with any further questions or concerns. She continues to meet medical necessity for Epifix due to non improvement with traditional wound care products after 6 weeks. May go back to work twice weekly for now. Reassess at next visit. Follow-up in 1 week. This note was generated with [employer] software. It may contain incorrect words, spelling, and punctuation that were not noted in checking the note before signing.
[2019-02-15 09:58] VITALS: BP 109/59; PULSE 94; RESP 18; TEMP 37.3; BMI 29.0
--- NOTE | 2019-02-15 10:21 | PN.PCM_ITS ---
(1) Decubitus ulcer of lower back, stage 3 Status: Chronic Current Visit: Yes Code(s): L89.103 - Pressure ulcer of unspecified part of back, stage 3 Comment: midline (2) Spina bifida Status: Chronic Current Visit: Yes Qualifiers: Code(s): Q05.9 - Spina bifida, unspecified Type of Wound Date of Service: 02/15/19 Chief Complaint: right foot wound healed History of Wound: Ms. Crews is a 43-year-old who is seen today as a courtesy visit for Dr. Kinney with a lower back ulcer noted the beginning of October. She denies any known precipitating factor but does have spina bifida and spends a significant amount of time in a wheelchair. She has had ulcers in this area in the past. She initially had been doing some conservative management at home without any significant improvement. Initially there was drainage noted however there is not any significant drainage at this time. She denies chills, fever otherwise feeling of unwell. She has been tolerating teatment with Promogran moistened and changed every other day. She has been off work for several weeks. Progress of Wound: Improving. Has had 9 applications of epifix so far. Stable. - Physical Exam Vital Signs Temp Pulse Resp BP 99.1 F 94 18 109/59 L 02/15/19 09:58 02/15/19 09:58 02/15/19 09:58 02/15/19 09:58 General: Alert, Oriented x3, Cooperative, No apparent distress HEENT: Atraumatic, Normocephalic Oral: Moist Mucosa Neck: Supple Lungs: Normal air movement Extremities: No cyanosis Skin: Ulcer/ Wound Wound Measurements and Assessment WC - Nurse 1 - General Ulcer Measurement Start: 02/08/19 11:24 Freq: Status: Active Protocol: Activity Type Activity Date Activity User E-Sign Co-Sign Detail Recorded Client Recorded Date Recorded By Document 02/15/19 09:58 [facility] [id number] 02/15/19 10:01 [facility] 02/15/19 09:58 Wound Center Nurse 1 [Ulcer Assessment] #3- LUMBAR AREA -Combined with other wound No -Current Size (cm) - Length 0.1 -Current Size (cm) - Width 1.5 -Current Size (cm) - Depth 0.3 -Total Square Cm 0.15 -Photo Taken Yes -Tunneling No -Undermining/Tunneling No -Circular Undermining No -Exudate Amt Small -Exudate Type Serosanguineous -Wound Margin Thickened -Granulation Amt Large (67-100%) -Granulation Quality [place] -Slough/Fibrin No -Necrosis Amt None Present (0 %) -Structure Exposed N/A -Texture (Patience-wound Skin Appearance) Scarring -Moisture (Patience-wound Skin Appearance Assessed ) -Color (Patience-wound Skin Appearance) Assessed -Temperature (Patience-wound Skin No Abnormality Appearance) (Pt Warm) -Tenderness on Palpation (Patience-wound No Skin Appearance) -Ulcer Cleansing Wound Cleanser -Foul Odor after Cleansing No -Anesthetic Used 5% Lidocaine Gel WC - Nurse 2 - General Ulcer CM Notes Start: 02/08/19 11:24 Freq: Status: Active Protocol: Activity Type Activity Date Activity User E-Sign Co-Sign Detail Recorded Client Recorded Date Recorded By Document 02/15/19 10:09 MW [id number] 02/15/19 10:20 MW 02/15/19 10:09 Wound Center Nurse 2 [Procedure/Treatment] -Time 10:10 -Correct Patient Yes -Correct Side, Site, Position Yes -Correct Procedure Yes -Procedure Performed Yes -Type of Procedure Debridement -Clinical Debridement Subcutaneous -Post Debridement Size (cm) - Length 0.2 -Post Debridement Size (cm) - Width 1.8 -Post Debridement Size (cm) - Depth 0.2 -Total Square Cm 0.36 -Wound/Ulcer Outcome Not Healed -Ulcer Cleansing Rinsed/ Irrigated with Saline -Foul Odor after Cleansing No -Bioengineered Tissue Yes -Type of bioengineered Tissue EPIFIX -Expiration Date 05/06/23 -Product Lot Number [id number] -Percent Used 100 -Saline Lot Number [id number] -Bleeding Controlled with Pressure -Offloading No -Treatment Response Procedure Tolerated Well [See Physician Procedure note for Specifics] Pain Scale: 0-10 Numeric [Pain] -Is Patient Pain Free? Yes Musculoskeletal: No Muscle Wasting Neurological: Cranial nerves II-XII grossly intact Psych/Mental Status: Normal Affect Debridement Note Post-Debridement Measurements/Treatment WC - Nurse 2 - General Ulcer CM Notes Start: 02/08/19 11:24 Freq: Status: Active Protocol: Activity Type Activity Date Activity User E-Sign Co-Sign Detail Recorded Client Recorded Date Recorded By Document 02/08/19 11:48 MW [id number] 02/08/19 11:55 MW Document 02/15/19 10:09 MW [id number] 02/15/19 10:20 MW 02/08/19 02/15/19 11:48 10:09 Wound Center Nurse 2 #3- LUMBAR AREA -Time 11:52 10:10 -Correct Patient Yes Yes -Correct Side, Site, Position Yes Yes -Correct Procedure Yes Yes -Procedure Performed Yes Yes -Type of Procedure Debridement Debridement -Clinical Debridement Subcutaneous Subcutaneous -Post Debridement Size (cm) - Length 0.4 0.2 -Post Debridement Size (cm) - Width 1.8 1.8 -Post Debridement Size (cm) - Depth 0.2 0.2 -Total Square Cm 0.72 0.36 -Wound/Ulcer Outcome Not Healed Not Healed -Ulcer Cleansing Rinsed/ Rinsed/ Irrigated with Irrigated with Saline Saline -Foul Odor after Cleansing No No -Bioengineered Tissue Yes Yes -Type of bioengineered Tissue EPIFIX EPIFIX -Expiration Date 06/06/23 05/06/23 -Product Lot Number [id number] -Percent Used 100 100 -Saline Lot Number [id number] -Bleeding Controlled with Pressure Pressure -Offloading No No -Treatment Response Procedure Procedure Tolerated Well Tolerated Well Pain Scale: 0-10 Numeric Is Patient Pain Free? Yes Yes Wound debrided: Mid lower back Wound Grade/Stage: Stage III Type of Debridement: Excisional debridement Anesthesia Used: 4% Lidocaine Solution Depth: Down to and including healthy tissue, in the subcutaneous layer Percentage of wound debrided: 100 Instrument Used: - - 1mm Tissue Removed: Slough and devitalized tisue Severity: Fat Layer Exposed Amount of bleeding with debridement: Mild Bleeding Controlled with: Pressure Patient tolerated procedure well Assessment/Plan Active Problems (Last Updated 03/11/18 @ 14:54 by Cecil Butts DO) Spina bifida (Chronic) Decubitus ulcer of lower back, stage 3 (Chronic) midline Assessment: right foot wound (possible burn) - healed today. spina bifida. malnutrition. lower extremity edema Plan: Improving. Debridement done as documented above, procedure was well tolerated. 10th application of Epifix done today using 100 % of product.Moistened with saline, adaptic touch over top. Steristrips. Leave in place for 1 week. Increased protein intake also recommended. All their Questions were answered and they were advised to call with any further questions or concerns. She continues to meet medical necessity for Epifix due to non improvement with traditional wound care products after 6 weeks. May go back to work twice weekly for now. Reassess at next visit. Follow-up in 1 week. This note was generated with [employer] dictation software. It may contain incorrect words, spelling, and punctuation that were not noted in checking the note before signing.
[2019-02-22 11:48] VITALS: BP 136/81; PULSE 103; RESP 20; TEMP 36.4; BMI 29.0
--- NOTE | 2019-02-22 12:48 | PN.PCM_ITS ---
(1) Decubitus ulcer of lower back, stage 3 Status: Chronic Current Visit: Yes Code(s): L89.103 - Pressure ulcer of unspecified part of back, stage 3 Comment: midline (2) Spina bifida Status: Chronic Current Visit: Yes Qualifiers: Code(s): Q05.9 - Spina bifida, unspecified Type of Wound Date of Service: 02/22/19 Chief Complaint: right foot wound healed History of Wound: Ms. Crews is a 43-year-old who is seen today as a courtesy visit for Dr. Kinney with a lower back ulcer noted the beginning of October. She denies any known precipitating factor but does have spina bifida and spends a significant amount of time in a wheelchair. She has had ulcers in this area in the past. She initially had been doing some conservative management at home without any significant improvement. Initially there was drainage noted however there is not any significant drainage at this time. She denies chills, fever otherwise feeling of unwell. She has been tolerating teatment with Promogran moistened and changed every other day. She has been off work for several weeks. Progress of Wound: Has had 10 aplications of Epifix. No new concerns at this time. - Physical Exam Vital Signs Temp Pulse Resp BP 97.5 F L 103 H 20 H 136/81 H 02/22/19 11:48 02/22/19 11:48 02/22/19 11:48 02/22/19 11:48 General: Alert, Oriented x3, Cooperative, No apparent distress HEENT: Atraumatic, Normocephalic Oral: Moist Mucosa Neck: Supple Abdomen: Non Tender, Obese Extremities: No cyanosis Skin: Ulcer/ Wound Wound Measurements and Assessment WC - Nurse 1 - General Ulcer Measurement Start: 02/08/19 11:24 Freq: Status: Active Protocol: Activity Type Activity Date Activity User E-Sign Co-Sign Detail Recorded Client Recorded Date Recorded By Document 02/22/19 11:48 DL [id number] 02/22/19 11:54 DL 02/22/19 11:48 Wound Center Nurse 1 [Ulcer Assessment] #3- LUMBAR AREA -Current Size (cm) - Length 0.4 -Current Size (cm) - Width 1.5 -Current Size (cm) - Depth 0.2 -Total Square Cm 0.60 -Photo Taken No -Undermining/Tunneling Starts (O' 9 clock) -Undermining/Tunneling Ends (O'clock) 3 -Maximum Distance (cm) 0.2 -Exudate Amt Small -Exudate Type Serosanguineous -Wound Margin Thickened & Rolled Under -Granulation Amt Small (1-33%) -Granulation Quality [place] -Necrosis Amt Small (1-33%) -Necrotic Tissue Type Adherent Slough -Structure Exposed N/A -Texture (Patience-wound Skin Appearance) Scarring -Moisture (Patience-wound Skin Appearance No Abnormality ) -Color (Patience-wound Skin Appearance) No Abnormality -Temperature (Patience-wound Skin No Abnormality Appearance) (Pt Warm) -Tenderness on Palpation (Patience-wound No Skin Appearance) -Ulcer Cleansing Rinsed/ Irrigated with Saline -Foul Odor after Cleansing No -Anesthetic Used 5% Lidocaine Gel WC - Nurse 2 - General Ulcer CM Notes Start: 02/08/19 11:24 Freq: Status: Active Protocol: Activity Type Activity Date Activity User E-Sign Co-Sign Detail Recorded Client Recorded Date Recorded By Document 02/22/19 12:21 MW [id number] 02/22/19 12:24 MW 02/22/19 12:21 Wound Center Nurse 2 [Procedure/Treatment] -Time 12:21 -Correct Patient Yes -Correct Side, Site, Position Yes -Correct Procedure Yes -Procedure Performed Yes -Type of Procedure Debridement -Clinical Debridement Subcutaneous -Post Debridement Size (cm) - Length 0.2 -Post Debridement Size (cm) - Width 1.5 -Post Debridement Size (cm) - Depth 0.3 -Total Square Cm 0.30 -Wound/Ulcer Outcome Not Healed -Ulcer Cleansing Rinsed/ Irrigated with Saline -Foul Odor after Cleansing No -Bioengineered Tissue No -Bleeding Controlled with Pressure -Offloading No -Treatment Response Procedure Tolerated Well [See Physician Procedure note for Specifics] Pain Scale: 0-10 Numeric [Pain] -Is Patient Pain Free? Yes Musculoskeletal: No Muscle Wasting Neurological: Cranial nerves II-XII grossly intact Psych/Mental Status: Normal Affect Debridement Note Post-Debridement Measurements/Treatment WC - Nurse 2 - General Ulcer CM Notes Start: 02/08/19 11:24 Freq: Status: Active Protocol: Activity Type Activity Date Activity User E-Sign Co-Sign Detail Recorded Client Recorded Date Recorded By Document 02/08/19 11:48 MW [id number] 02/08/19 11:55 MW Document 02/15/19 10:09 MW [id number] 02/15/19 10:20 MW Document 02/22/19 12:21 MW [id number] 02/22/19 12:24 MW 02/08/19 02/15/19 02/22/19 11:48 10:09 12:21 Wound Center Nurse 2 #3- LUMBAR AREA -Time 11:52 10:10 12:21 -Correct Patient Yes Yes Yes -Correct Side, Site, Position Yes Yes Yes -Correct Procedure Yes Yes Yes -Procedure Performed Yes Yes Yes -Type of Procedure Debridement Debridement Debridement -Clinical Debridement Subcutaneous Subcutaneous Subcutaneous -Post Debridement Size (cm) - Length 0.4 0.2 0.2 -Post Debridement Size (cm) - Width 1.8 1.8 1.5 -Post Debridement Size (cm) - Depth 0.2 0.2 0.3 -Total Square Cm 0.72 0.36 0.30 -Wound/Ulcer Outcome Not Healed Not Healed Not Healed -Ulcer Cleansing Rinsed/ Rinsed/ Rinsed/ Irrigated with Irrigated with Irrigated with Saline Saline Saline -Foul Odor after Cleansing No No No -Bioengineered Tissue Yes Yes No -Type of bioengineered Tissue EPIFIX EPIFIX -Expiration Date 06/06/23 05/06/23 -Product Lot Number [id number] -Percent Used 100 100 -Saline Lot Number [id number] -Bleeding Controlled with Pressure Pressure Pressure -Offloading No No No -Treatment Response Procedure Procedure Procedure Tolerated Well Tolerated Well Tolerated Well Pain Scale: 0-10 Numeric Is Patient Pain Free? Yes Yes Yes Wound debrided: Midline Lower back Wound Grade/Stage: Stage III Type of Debridement: Excisional debridement Anesthesia Used: 4% Lidocaine Solution Depth: Down to and including healthy tissue, in the subcutaneous layer Percentage of wound debrided: 100 Instrument Used: - - 1mm Tissue Removed: Slough and devitalized tissue Severity: Fat Layer Exposed Amount of bleeding with debridement: Mild Bleeding Controlled with: Pressure Patient tolerated procedure well Assessment/Plan Active Problems (Last Updated 03/11/18 @ 14:54 by Cecil Butts DO) Spina bifida (Chronic) Decubitus ulcer of lower back, stage 3 (Chronic) midline Assessment: right foot wound (possible burn) - healed today. spina bifida. malnutrition. lower extremity edema Plan: Improving. Debridement done as documented above, procedure was well tolerated. Has completed Epifix allocated. switch to Pomogarn daily with adaptic over top. Offloading and Increased protein intake also recommended. All their Questions were answered and they were advised to call with any further questions or concerns. Follow-up in 1 week. This note was generated with [employer] dictation software. It may contain incorrect words, spelling, and punctuation that were not noted in checking the note before signing.
[2019-03-01 10:44] VITALS: BP 134/82; PULSE 99; RESP 18; TEMP 35; BMI 29.0
--- NOTE | 2019-03-01 11:00 | PN.PCM_ITS ---
(1) Decubitus ulcer of lower back, stage 3 Status: Chronic Current Visit: Yes Code(s): L89.103 - Pressure ulcer of unspecified part of back, stage 3 Comment: midline (2) Spina bifida Status: Chronic Current Visit: Yes Qualifiers: Code(s): Q05.9 - Spina bifida, unspecified Type of Wound Date of Service: 03/01/19 Chief Complaint: right foot wound healed History of Wound: Ms. Crews is a 43-year-old who is seen today as a courtesy visit for Dr. Kinney with a lower back ulcer noted the beginning of October. She denies any known precipitating factor but does have spina bifida and spends a significant amount of time in a wheelchair. She has had ulcers in this area in the past. She initially had been doing some conservative management at home without any significant improvement. Initially there was drainage noted however there is not any significant drainage at this time. She denies chills, fever otherwise feeling of unwell. She has been tolerating teatment with Promogran moistened and changed every other day. She has been off work for several weeks. Progress of Wound: Stable. No new concerns at this time. Has had 1 week of pomogram. - Physical Exam Vital Signs Temp Pulse Resp BP 95.0 F L 99 18 134/82 H 03/01/19 10:44 03/01/19 10:44 03/01/19 10:44 03/01/19 10:44 General: Alert, Oriented x3, Cooperative, No apparent distress HEENT: Atraumatic, Normocephalic Oral: Moist Mucosa Neck: Supple Lungs: Normal air movement Extremities: No cyanosis Skin: Ulcer/ Wound Wound Measurements and Assessment - Nurse 1 - General Ulcer Measurement Start: 02/08/19 11:24 Freq: Status: Active Protocol: Activity Type Activity Date Activity User E-Sign Co-Sign Detail Recorded Client Recorded Date Recorded By Document 03/01/19 10:44 [id number] 03/01/19 10:51 03/01/19 10:44 Wound Center Nurse 1 [Ulcer Assessment] #3- LUMBAR AREA -Combined with other wound No -Current Size (cm) - Length 0.4 -Current Size (cm) - Width 1.3 -Current Size (cm) - Depth 0.3 -Total Square Cm 0.52 -Photo Taken No -Epithelialization Small 1-33% -Tunneling No -Undermining/Tunneling No -Circular Undermining No -Exudate Amt None Present -Wound Margin Thickened -Granulation Amt Small (1-33%) -Granulation Quality [place] -Slough/Fibrin Yes -Necrosis Amt None Present (0 %) -Necrotic Tissue Type Adherent Slough -Texture (Patience-wound Skin Appearance) Callus,Scarring -Moisture (Patience-wound Skin Appearance Maceration ) -Color (Patience-wound Skin Appearance) No Abnormality, Assessed -Temperature (Patience-wound Skin No Abnormality Appearance) (Pt Warm) -Tenderness on Palpation (Patience-wound No Skin Appearance) -Ulcer Cleansing Rinsed/ Irrigated with Saline -Foul Odor after Cleansing No -Anesthetic Used 5% Lidocaine Gel [Edema Assessment] -Lower Limb Edema Present NA WC - Nurse 2 - General Ulcer CM Notes Start: 02/08/19 11:24 Freq: Status: Active Protocol: Activity Type Activity Date Activity User E-Sign Co-Sign Detail Recorded Client Recorded Date Recorded By Document 03/01/19 10:56 MW [id number] 03/01/19 10:58 MW 03/01/19 10:56 Wound Center Nurse 2 [Procedure/Treatment] #3- LUMBAR AREA -Time 10:56 -Correct Patient Yes -Correct Side, Site, Position Yes -Correct Procedure Yes -Procedure Performed Yes -Type of Procedure Debridement -Clinical Debridement Subcutaneous -Post Debridement Size (cm) - Length 0.3 -Post Debridement Size (cm) - Width 1.2 -Post Debridement Size (cm) - Depth 0.3 -Total Square Cm 0.36 -Wound/Ulcer Outcome Not Healed -Ulcer Cleansing Rinsed/ Irrigated with Saline -Foul Odor after Cleansing No -Bioengineered Tissue No -Bleeding Controlled with Pressure -Offloading No -Treatment Response Procedure Tolerated Well [See Physician Procedure note for Specifics] Pain Scale: 0-10 Numeric [Pain] -Is Patient Pain Free? Yes Musculoskeletal: No Muscle Wasting Neurological: Cranial nerves II-XII grossly intact Psych/Mental Status: Normal Affect Debridement Note Post-Debridement Measurements/Treatment WC - Nurse 2 - General Ulcer CM Notes Start: 02/08/19 11:24 Freq: Status: Active Protocol: Activity Type Activity Date Activity User E-Sign Co-Sign Detail Recorded Client Recorded Date Recorded By Document 02/08/19 11:48 MW [id number] 02/08/19 11:55 MW Document 02/15/19 10:09 MW [id number] 02/15/19 10:20 MW Document 02/22/19 12:21 MW [id number] 02/22/19 12:24 MW Document 03/01/19 10:56 MW [id number] 03/01/19 10:58 MW 02/08/19 02/15/19 02/22/19 11:48 10:09 12:21 Wound Center Nurse 2 #3- LUMBAR AREA -Time 11:52 10:10 12:21 -Correct Patient Yes Yes Yes -Correct Side, Site, Position Yes Yes Yes -Correct Procedure Yes Yes Yes -Procedure Performed Yes Yes Yes -Type of Procedure Debridement Debridement Debridement -Clinical Debridement Subcutaneous Subcutaneous Subcutaneous -Post Debridement Size (cm) - Length 0.4 0.2 0.2 -Post Debridement Size (cm) - Width 1.8 1.8 1.5 -Post Debridement Size (cm) - Depth 0.2 0.2 0.3 -Total Square Cm 0.72 0.36 0.30 -Wound/Ulcer Outcome Not Healed Not Healed Not Healed -Ulcer Cleansing Rinsed/ Rinsed/ Rinsed/ Irrigated with Irrigated with Irrigated with Saline Saline Saline -Foul Odor after Cleansing No No No -Bioengineered Tissue Yes Yes No -Type of bioengineered Tissue EPIFIX EPIFIX -Expiration Date 06/06/23 05/06/23 -Product Lot Number [id number] -Percent Used 100 100 -Saline Lot Number [id number] -Bleeding Controlled with Pressure Pressure Pressure -Offloading No No No -Treatment Response Procedure Procedure Procedure Tolerated Well Tolerated Well Tolerated Well Pain Scale: 0-10 Numeric Is Patient Pain Free? Yes Yes Yes 03/01/19 10:56 Wound Center Nurse 2 #3- LUMBAR AREA -Time 10:56 -Correct Patient Yes -Correct Side, Site, Position Yes -Correct Procedure Yes -Procedure Performed Yes -Type of Procedure Debridement -Clinical Debridement Subcutaneous -Post Debridement Size (cm) - Length 0.3 -Post Debridement Size (cm) - Width 1.2 -Post Debridement Size (cm) - Depth 0.3 -Total Square Cm 0.36 -Wound/Ulcer Outcome Not Healed -Ulcer Cleansing Rinsed/ Irrigated with Saline -Foul Odor after Cleansing No -Bioengineered Tissue No -Type of bioengineered Tissue -Expiration Date -Product Lot Number -Percent Used -Saline Lot Number -Bleeding Controlled with Pressure -Offloading No -Treatment Response Procedure Tolerated Well Pain Scale: 0-10 Numeric Is Patient Pain Free? Yes Wound debrided: Mid lower back Wound Grade/Stage: Stage III Type of Debridement: Excisional debridement Anesthesia Used: 4% Lidocaine Solution Depth: Down to and including healthy tissue, in the subcutaneous layer Percentage of wound debrided: 100 Instrument Used: - - 1mm Tissue Removed: Slough and devitalized tissue Severity: Fat Layer Exposed Amount of bleeding with debridement: Mild Bleeding Controlled with: Pressure Patient tolerated procedure well Assessment/Plan Active Problems (Last Updated 03/11/18 @ 14:54 by Cecil Butts DO) Spina bifida (Chronic) Decubitus ulcer of lower back, stage 3 (Chronic) midline Assessment: right foot wound (possible burn) - healed today. spina bifida. malnutrition. lower extremity edema Plan: No significant change in the past week. Debridement done as documented above, procedure was well tolerated. Has completed Epifix allocated and switched to pomogran a week ago. No significnat change ( Actually, mild increase in circumference ). She also truly did not do well with traditional wound products in the past. We appeal for more applications of skin subs because this is likely her best chance at healing in a decent time. No concern for infection at this time. Continue Pomogram with adaptic over top. Change daily. Offloading and Increased protein intake also recommended. All their Questions were answered and they were advised to call with any further questions or concerns. Follow-up in 1 week. This note was generated with [employer] software. It may contain incorrect words, spelling, and punctuation that were not noted in checking the note before signing.
== END 2019-03-05 23:59 ==
LOC: WC 10:15
PROVIDERS: Family Provider Family Medicine; PCP Family Medicine; Visit Provider Internal Medicine
DX: L89.103 Pressure ulcer of unspecified part of back, stage 3 (principal); Q05.9 Spina bifida, unspecified; Z79.82 Long term (current) use of aspirin; Z79.899 Other long term (current) drug therapy; R60.0 Localized edema; Z87.2 Personal history of diseases of the skin and subcutaneous tissue
CPT/HCPCS: 11042; 15271; Q4186

== ENCOUNTER → 2019-03-12 11:59 | Outpatient (CLI) | payer MEDICARE, MEDICAID, SELFPAY ==
[2019-03-08 12:27] VITALS: BMI 29.0
--- NOTE | 2019-03-12 12:02 | CT_ITS ---
STUDY: CT ABDOMEN AND PELVIS WITHOUT CONTRAST REASON FOR EXAM: Female, 43 years old. RADIATION DOSAGE (If Supplied By Facility): CTDIvol = ( 15.58 ) mGy, DLP = ( 622.72 ) mGycm TECHNIQUE: Transaxial images were obtained from the dome of the diaphragm to the symphysis pubis without oral contrast, and without intravenous contrast. Sagittal and coronal images were reconstructed. Individualized dose optimization techniques were used for this CT. COMPARISON: Previous CT scan of the abdomen and pelvis obtained on 07/21/2018 FINDINGS: The visualized lung bases are unremarkable. The visualized portions of the heart are within normal limits. Normal liver. Patient has had a cholecystectomy. Normal spleen. Normal pancreas. A ventriculoperitoneal shunt tube are in place in the right upper abdominal cavity. Normal bilateral adrenal glands. The right kidney shows a large calcification seen in the right renal pelvis at the level of the ureteropelvic junction. An additional calculus is seen in a calyceal calculus. This calculi were previously noted and not significantly changed. Normal left kidney. Normal visualized stomach. Normal small intestine. Normal colon. The appendix is not visualized and there appears to be some surgery on the cecum. Normal abdominal aorta. Normal inferior vena cava. Normal retroperitoneum. Normal urinary bladder. Normal abdominal wall. There is moderate levoscoliosis involving the lumbar spine with pronounced spina bifida deformity.. CT/Abdomen/Pelvis without Cont IMPRESSION: 1. A ventriculoperitoneal shunt tubing are in place in the upper abdominal cavity in this patient with moderate levoscoliosis with a crown spina bifida deformity of the lower lumbar spine and sacrum. This was noted previously and is unchanged. 2.Tiny nonobstructive calculi are noted in the mid pole calyces of the right kidney with a staghorn calculus measuring about 1 cm in size in the right renal pelvis which was previously noted and is unchanged. Electronically Signed: Michi Serna, at 15:10 EDT Tel , Service support ,
== END ==
PROVIDERS: Referring Provider Urology; Visit Provider Urology
DX: N20.0 Calculus of kidney (principal)
CPT/HCPCS: 74176

== ENCOUNTER 2019-03-23 11:36 | Day surgery (SDC) | payer MEDICARE, MEDICAID, SELFPAY ==
[2019-03-08 12:27] VITALS: BMI 29.0
[2019-03-15 09:37] VITALS: BMI 29.0
[2019-03-23] VITALS (7 sets, daily range): BP systolic 106–124; BP diastolic 61–87; PULSE 110–135; RESP 16–18; TEMP 36.8–37.3; O2SAT 88–99; BMI 33.4
[2019-03-23] MEDS: Lactated Ringers 1,000 ML 100 ML IV (12:20)
--- NOTE | 2019-03-23 14:03 | HP.PCM_ITS ---
History and Physical Date of Admission: 03/23/19 Patient returns 43-year-old female with spina bifida complex reconstruction she has a neobladder and a catheterize will stoma, mom and child catheterize several times a day to empty the bladder. Shows a history of kidney stones on both sides. Prior to this she had surgery to alleviate obstruction. She is getting is still occasional urinary tract infections. Will do a CT scan stone protocol make sure the kidneys are okay. ALLERGIES: Augmentin - Diarrhea Cipro - Swelling, causes joint swelling. 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 Tobacco Use Assessment Completed: Used Smokeless in last 30 days? Smoking cessation counseling was provided. Does not use smokeless tobacco. Has never drank. Does not use drugs. Drinks 2 caffeinated drinks per day. Has not had a blood transfusion. REVIEW OF SYSTEMS: Constitutional: Patient denies fever, chills, weight loss, and weight gain. Genitourinary: Patient reports get up at night to void, leakage of urine, frequent uti's, and history of stones. Patient denies frequent urination, urinary retention, painful urination, blood in the urine, difficulty starting stream, weak stream/scanty, and bedwetting. VITAL SIGNS: 03/12/2019 11:31 AM Weight 145 lb / 65.77 kg Height 60 in / 152.4 cm BP 128/70 mmHg BMI 28.3 kg/m? - BMI Counseling was provided. MULTI-SYSTEM PHYSICAL EXAMINATION: Constitutional: Well-nourished. No physical deformities. Normally developed. Good grooming. Neck: Neck symmetrical, not swollen. Normal tracheal position. Respiratory: No labored breathing, no use of accessory muscles. Cardiovascular: Normal temperature, normal extremity pulses, no swelling, no varicosities. Lymphatic: No enlargement of neck, axillae, groin. Skin: No paleness, no jaundice, no cyanosis. No lesion, no ulcer, no rash. Neurologic / Psychiatric: Oriented to time, oriented to place, oriented to person. No depression, no anxiety, no agitation. Gastrointestinal: No mass, no tenderness, no rigidity, non obese abdomen. stoma Eyes: Normal conjunctivae. Normal eyelids. Ears, Nose, Mouth, and Throat: Left ear no scars, no lesions, no masses. Right ear no scars, no lesions, no masses. Nose no scars, no lesions, no masses. Normal hearing. Normal lips. Musculoskeletal: Normal gait and station of head and neck. PAST DATA REVIEWED: Source Of History: Patient PROCEDURES: None ASSESSMENT: ICD-10 Details 1 : Calculus of kidney - N20.0 2 Flaccid neuropathic bladder, not elsewhere classified - N31.2 3 Personal history of urinary (tract) infections - Z87.440 4 NON-: Thoracic spina bifida with hydrocephalus - Q05.1 PLAN: Document Letter(s): Created for Patient: Clinical Summary Notes: 43-year-old female with spina bifida, reconstruction of the urinary system with neobladder on self intermittent catheterization. Will do a CT scan stone protocol evaluate the kidneys. Treat UTI's as needed if she has symptoms. Follow-up in six months for checkup. Patient was feeling well today with no symptoms no fevers or chills, mom is wondering if her to check for urinary tract infection and explain to the mother that she will always have bacteria in her system and we only treat if she has symptoms. CARE TEAM: Girish Mary, M.Brittney Wellington Signed by Girish Hernandez M.D. on 03/12/19 at 11:43 AM (EDT) APPENDED NOTES: Has a stone in right renal pelvis. plan for cystoscopy and right ESWL, told mother, caregiver that may need multiple treatments.
[2019-03-23] MEDS: Cefazolin 2 GM in 0.9% Normal Saline 100 ML IV (14:37)
--- NOTE | 2019-03-23 15:08 | PCM.OPRPT ---
Report of Operation Date of Procedure: 03/23/19 Pre-Operative Diagnosis: Recurrent urinary tract infections and right kidney stone Post-Operative Diagnosis: The same Surgery/Procedure Performed:: Cystoscopy and right stent placement ESWL canceled because of active infection Description of Surgical Findings:: 43-year-old female with history of recurrent infections on work-up she was found to have a stone in the right pelvis of the kidney plan to treat the stone today however it looks like it is possible she may have an active infection will do a cystoscopy and stent placement if the urine looks purulent we then will have to delay the case for treatment of the active infection. 43-year-old female taken back to the operating room at the smooth induction of anesthesia she was placed supine on the table quite difficult anesthesia because of her body habitus she has spina bifida very short stature lot of hardware curvature she had rods in both her back's. After intubation she was then brought down to the end of the lithotripter table we placed one leg in stirrups the other leg to be held manually by the nurse because there is no way to put her legs in stirrups without any cause any severe bending. So being very careful we held her one leg manually and the other leg and stirrup we went into the bladder I left a lot of debris in the bladder from chronic infections and I then identified the right ureteral orifice advanced a wire up into the kidney could see the wire going to the kidney could see the wire go past the stone in the kidney showed a large stone in the right kidney. And then I placed a stent 6 [place] by 26 cm stent up on the right side. On fluoroscopy this the stone was quite faint but was visible. We will start her on some potassium citrate perhaps that the uric acid stone. Also possible with an infected stone. Because of the active infection we just place a stent for now and that the string on the stent for easy extraction but the stent was left coiled in the kidney and bladder good position and patient anesthetic was reversed taken back to PACU good condition and will put her on Bactrim and will send the urine for culture. Type of Anesthesia:: General Drains: stent placed - Admit VTE Documentation VTE Present on Admission: No VTE Mechan Device Prophylaxis: SCD's
--- NOTE | 2019-03-23 15:12 | DCINST_ITS ---
Discharge Diet: Light diet - advance as tolerated Discharge Activity: Return to Normal Activity Call your doctor if your incision/area has: Sudden Increased Bleeding Suture Line Care: Avoid Pulling/Pushing, Avoid Pinching/Bending Allergies/Adverse Reactions: Allergies amoxicillin [From Augmentin] Adverse Reaction (Verified 03/23/19 12:02) Diarrhea azithromycin [From Zithromax Z-Turner] Adverse Reaction (Verified 03/23/19 12:02) Diarrhea ciprofloxacin [From Cipro] Adverse Reaction (Verified 03/23/19 12:02) Pain in joints clavulanic acid [From Augmentin] Adverse Reaction (Verified 03/23/19 12:02) Diarrhea Medications to take at Discharge Multivitamins,Therapeutic [Multivitamin] 1 tablet PO QHS 04/24/13 Oxybutynin Chloride [Ditropan Xl] 15 mg PO QHS 04/24/13 Paroxetine [Paxil] 40 mg PO QHS 04/24/13 Bacillus Coagulans [Probiotic] 1 each PO QHS 03/11/18 Omeprazole [Prilosec] 20 mg PO QHS 03/11/18 Aspirin [Aspirin, Baby] 81 mg PO DAILY@0800 tab.chew 03/14/18 Metoprolol Tartrate [Lopressor (Beta Jackie)] 25 mg PO BID 04/11/18 MedroxyPROGESTERone [Depo-Provera] 150 mg IM .[id number] 03/19/19 Hydrocodone/Acetaminophen [[place] 5-325 Tablet] 1 ea PO Q4H PRN PRN 5 Days #20 tab 03/23/19 Smz/Tmp Ds [Bactrim Ds] 1 tab PO BID #14 tab 03/23/19 The following prescriptions were given: Smz/Tmp Ds [Bactrim Ds] 1 tab PO BID #14 tab Prescription Printed Hydrocodone/Acetaminophen [[place] 5-325 Tablet] 1 ea PO Q4H PRN PRN 5 Days #20 tab PRN Reason: Pain Or Fever Prescription Printed Primary Care Physician: Parviz Pruitt MD [Primary Care Provider] - Test Results: Test results from this visit will be discussed in further detail at your follow- up appointment, if applicable. Please Follow Up With: Enzo Hernandez MD
== END 2019-03-23 17:04 | disposition home or self-care (01) ==
LOC: SDC 11:37 → AC 11:39
PROVIDERS: Family Provider Family Medicine; PCP Family Medicine; Referring Provider Urology; Visit Provider Urology
PROC: (CPT 50590; principal; 2019-03-23 13:45)
DX: N20.0 Calculus of kidney (principal); Z87.440 Personal history of urinary (tract) infections; Z88.0 Allergy status to penicillin; Z88.1 Allergy status to other antibiotic agents; Z79.82 Long term (current) use of aspirin; Z79.899 Other long term (current) drug therapy; Z82.49 Family history of ischemic heart disease and other diseases of the circulatory system; N31.9 Neuromuscular dysfunction of bladder, unspecified; Q05.1 Thoracic spina bifida with hydrocephalus; Z87.442 Personal history of urinary calculi
CPT/HCPCS: 52332; 87077; 87086; 87088; 87186; J7120; C1769; C2617; J2405

== ENCOUNTER 2019-03-29 10:00 | Outpatient (RCR) | payer MEDICARE, MEDICAID, SELFPAY ==
[2019-03-06 00:43] VITALS: BP 134/82; PULSE 99; RESP 18; TEMP 35
[2019-03-08 12:27] VITALS: BP 114/77; PULSE 88; RESP 16; TEMP 37.4; BMI 29.0
--- NOTE | 2019-03-08 12:56 | PN.PCM_ITS ---
(1) Decubitus ulcer of lower back, stage 3 Status: Chronic Current Visit: Yes Code(s): L89.103 - Pressure ulcer of unspecified part of back, stage 3 Comment: midline (2) Spina bifida Status: Chronic Current Visit: Yes Qualifiers: Code(s): Q05.9 - Spina bifida, unspecified Type of Wound Date of Service: 03/08/19 Chief Complaint: right foot wound healed History of Wound: Ms. Crews is a 43-year-old who is seen today as a courtesy visit for Dr. Kinney with a lower back ulcer noted the beginning of October. She denies any known precipitating factor but does have spina bifida and spends a significant amount of time in a wheelchair. She has had ulcers in this area in the past. She initially had been doing some conservative management at home without any significant improvement. Initially there was drainage noted however there is not any significant drainage at this time. She denies chills, fever otherwise feeling of unwell. She has been tolerating teatment with Promogran moistened and changed every other day. She has been off work for several weeks. Progress of Wound: Stable. No new concerns at this time. - Physical Exam Vital Signs Temp Pulse Resp BP 99.3 F H 88 16 114/77 03/08/19 12:27 03/08/19 12:27 03/08/19 12:27 03/08/19 12:27 General: Alert, Oriented x3, Cooperative, No apparent distress HEENT: Atraumatic, Normocephalic Oral: Moist Mucosa Neck: Supple Lungs: Normal air movement Extremities: No cyanosis Skin: Ulcer/ Wound Wound Measurements and Assessment WC - Nurse 1 - General Ulcer Measurement Start: 03/08/19 12:27 Freq: Status: Active Protocol: Activity Type Activity Date Activity User E-Sign Co-Sign Detail Recorded Client Recorded Date Recorded By Document 03/08/19 12:27 [facility] [id number] 03/08/19 12:36 [facility] 03/08/19 12:27 Wound Center Nurse 1 [Ulcer Assessment] #3- LUMBAR AREA -Combined with other wound No -Current Size (cm) - Length 0.1 -Current Size (cm) - Width 1.9 -Current Size (cm) - Depth 0.3 -Total Square Cm 0.19 -Photo Taken No -Epithelialization None Present -Tunneling No -Undermining/Tunneling No -Circular Undermining No -Exudate Amt Small -Exudate Type Serous -Wound Margin Distinct, Outline Attached -Granulation Amt Small (1-33%) -Granulation Quality [place] -Slough/Fibrin Yes -Necrosis Amt Medium (34-66%) -Necrotic Tissue Type Adherent Slough -Texture (Patience-wound Skin Appearance) Assessed, Scarring -Moisture (Patience-wound Skin Appearance Assessed, ) Maceration -Color (Patience-wound Skin Appearance) Assessed,Palor -Temperature (Patience-wound Skin No Abnormality Appearance) (Pt Warm) -Tenderness on Palpation (Patience-wound No Skin Appearance) -Ulcer Cleansing Rinsed/ Irrigated with Saline -Foul Odor after Cleansing No -Anesthetic Used 5% Lidocaine Gel WC - Nurse 2 - General Ulcer CM Notes Start: 03/08/19 12:27 Freq: Status: Active Protocol: Activity Type Activity Date Activity User E-Sign Co-Sign Detail Recorded Client Recorded Date Recorded By Document 03/08/19 12:47 MW [id number] 03/08/19 12:50 MW 03/08/19 12:47 Wound Center Nurse 2 [Procedure/Treatment] -Time 12:47 -Correct Patient Yes -Correct Side, Site, Position Yes -Correct Procedure Yes -Procedure Performed Yes -Type of Procedure Debridement -Clinical Debridement Subcutaneous -Post Debridement Size (cm) - Length 0.3 -Post Debridement Size (cm) - Width 1.8 -Post Debridement Size (cm) - Depth 0.3 -Total Square Cm 0.54 -Wound/Ulcer Outcome Not Healed -Ulcer Cleansing Rinsed/ Irrigated with Saline -Foul Odor after Cleansing No -Bioengineered Tissue No -Bleeding Controlled with Pressure -Offloading No -Treatment Response Procedure Tolerated Well [See Physician Procedure note for Specifics] Pain Scale: 0-10 Numeric [Pain] -Is Patient Pain Free? Yes Musculoskeletal: No Muscle Wasting Neurological: Cranial nerves II-XII grossly intact Psych/Mental Status: Normal Affect Debridement Note Post-Debridement Measurements/Treatment WC - Nurse 2 - General Ulcer CM Notes Start: 03/08/19 12:27 Freq: Status: Active Protocol: Activity Type Activity Date Activity User E-Sign Co-Sign Detail Recorded Client Recorded Date Recorded By Document 03/08/19 12:47 MW [id number] 03/08/19 12:50 MW 03/08/19 12:47 Wound Center Nurse 2 #3- LUMBAR AREA -Time 12:47 -Correct Patient Yes -Correct Side, Site, Position Yes -Correct Procedure Yes -Procedure Performed Yes -Type of Procedure Debridement -Clinical Debridement Subcutaneous -Post Debridement Size (cm) - Length 0.3 -Post Debridement Size (cm) - Width 1.8 -Post Debridement Size (cm) - Depth 0.3 -Total Square Cm 0.54 -Wound/Ulcer Outcome Not Healed -Ulcer Cleansing Rinsed/ Irrigated with Saline -Foul Odor after Cleansing No -Bioengineered Tissue No -Bleeding Controlled with Pressure -Offloading No -Treatment Response Procedure Tolerated Well Pain Scale: 0-10 Numeric Is Patient Pain Free? Yes Wound debrided: Mid Lower Back Wound Grade/Stage: Stage III Type of Debridement: Excisional debridement Anesthesia Used: 4% Lidocaine Solution Depth: Down to and including healthy tissue, in the subcutaneous layer Percentage of wound debrided: 100 Instrument Used: - - 1mm Tissue Removed: Slough and devitalized tissue Severity: Fat Layer Exposed Amount of bleeding with debridement: Mild Bleeding Controlled with: Pressure Patient tolerated procedure well Assessment/Plan Active Problems (Last Updated 03/11/18 @ 14:54 by Cecil Butts DO) Spina bifida (Chronic) Decubitus ulcer of lower back, stage 3 (Chronic) midline Assessment: right foot wound (possible burn) - healed today. spina bifida. malnutrition. lower extremity edema Plan: No new concerns. Now clustered. Middle area is healed. Debridement done as documented above, procedure was well tolerated. Continue Pomogram with adaptic over top. Change daily. Offloading and Increased protein intake also recommended. All their Questions were answered and they were advised to call with any further questions or concerns. Follow-up in 1 week. This note was generated with [employer] [facility] [employer] dictation software. It may contain incorrect words, spelling, and punctuation that were not noted in checking the note before signing.
[2019-03-15 09:37] VITALS: BP 132/81; PULSE 91; RESP 18; TEMP 36.8; BMI 29.0
--- NOTE | 2019-03-15 10:06 | PCM.WC.PN ---
(1) Decubitus ulcer of lower back, stage 3 Status: Chronic Current Visit: Yes Code(s): L89.103 - Pressure ulcer of unspecified part of back, stage 3 Comment: midline (2) Spina bifida Status: Chronic Current Visit: Yes Qualifiers: Code(s): Q05.9 - Spina bifida, unspecified Type of Wound Date of Service: 03/15/19 Chief Complaint: right foot wound healed History of Wound: Ms. Crews is a 43-year-old who is seen today as a courtesy visit for Dr. Kinney with a lower back ulcer noted the beginning of October. She denies any known precipitating factor but does have spina bifida and spends a significant amount of time in a wheelchair. She has had ulcers in this area in the past. She initially had been doing some conservative management at home without any significant improvement. Initially there was drainage noted however there is not any significant drainage at this time. She denies chills, fever otherwise feeling of unwell. She has been tolerating teatment with Promogran moistened and changed every other day. She has been off work for several weeks. Progress of Wound: Improving. No new concerns at this time. - Physical Exam Vital Signs Temp Pulse Resp BP 98.2 F 91 18 132/81 H 03/15/19 09:37 03/15/19 09:37 03/15/19 09:37 03/15/19 09:37 General: Alert, Oriented x3, Cooperative, No apparent distress HEENT: Atraumatic, Normocephalic Oral: Moist Mucosa Neck: Supple Lungs: Normal air movement Abdomen: Non Tender, Obese Extremities: No cyanosis Skin: Ulcer/ Wound Wound Measurements and Assessment WC - Nurse 1 - General Ulcer Measurement Start: 03/08/19 12:27 Freq: Status: Active Protocol: Activity Type Activity Date Activity User E-Sign Co-Sign Detail Recorded Client Recorded Date Recorded By Document 03/15/19 09:37 RB [id number] 03/15/19 09:52 RB 03/15/19 09:37 Wound Center Nurse 1 [Ulcer Assessment] #3- LUMBAR AREA -Combined with other wound No -Current Size (cm) - Length 0.5 -Current Size (cm) - Width 1 -Current Size (cm) - Depth 0.3 -Total Square Cm 0.5 -Tunneling No -Undermining/Tunneling No -Circular Undermining No -Exudate Amt Small -Exudate Type Serosanguineous -Wound Margin Fibrotic Scar, Thickened Scar -Granulation Amt Large (67-100%) -Granulation Quality [place] -Slough/Fibrin Yes -Necrosis Amt Small (1-33%) -Necrotic Tissue Type Adherent Slough -Structure Exposed N/A -Texture (Patience-wound Skin Appearance) Assessed, Scarring -Moisture (Patience-wound Skin Appearance Assessed ) -Color (Patience-wound Skin Appearance) Assessed -Temperature (Patience-wound Skin No Abnormality Appearance) (Pt Warm) -Tenderness on Palpation (Patience-wound No Skin Appearance) -Ulcer Cleansing Wound Cleanser -Foul Odor after Cleansing No -Anesthetic Used 5% Lidocaine Gel WC - Nurse 2 - General Ulcer CM Notes Start: 03/08/19 12:27 Freq: Status: Active Protocol: Activity Type Activity Date Activity User E-Sign Co-Sign Detail Recorded Client Recorded Date Recorded By Document 03/15/19 10:03 MW [id number] 03/15/19 10:04 MW 03/15/19 10:03 Wound Center Nurse 2 [Procedure/Treatment] -Time 10:03 -Correct Patient Yes -Correct Side, Site, Position Yes -Correct Procedure Yes -Procedure Performed No -Post Debridement Size (cm) - Length 0.1 -Post Debridement Size (cm) - Width 0.1 -Post Debridement Size (cm) - Depth 0.1 -Total Square Cm 0.01 -Wound/Ulcer Outcome Not Healed -Ulcer Cleansing Rinsed/ Irrigated with Saline -Foul Odor after Cleansing No -Bioengineered Tissue No -Bleeding Controlled with NA -Offloading No -Treatment Response Procedure Tolerated Well [See Physician Procedure note for Specifics] Pain Scale: 0-10 Numeric [Pain] -Is Patient Pain Free? Yes Musculoskeletal: No Muscle Wasting Neurological: Cranial nerves II-XII grossly intact Psych/Mental Status: Normal Affect Debridement Note Post-Debridement Measurements/Treatment WC - Nurse 2 - General Ulcer CM Notes Start: 03/08/19 12:27 Freq: Status: Active Protocol: Activity Type Activity Date Activity User E-Sign Co-Sign Detail Recorded Client Recorded Date Recorded By Document 03/08/19 12:47 MW [id number] 03/08/19 12:50 MW Document 03/15/19 10:03 MW [id number] 03/15/19 10:04 MW 03/08/19 03/15/19 12:47 10:03 Wound Center Nurse 2 #3- LUMBAR AREA -Time 12:47 10:03 -Correct Patient Yes Yes -Correct Side, Site, Position Yes Yes -Correct Procedure Yes Yes -Procedure Performed Yes No -Type of Procedure Debridement -Clinical Debridement Subcutaneous -Post Debridement Size (cm) - Length 0.3 0.1 -Post Debridement Size (cm) - Width 1.8 0.1 -Post Debridement Size (cm) - Depth 0.3 0.1 -Total Square Cm 0.54 0.01 -Wound/Ulcer Outcome Not Healed Not Healed -Ulcer Cleansing Rinsed/ Rinsed/ Irrigated with Irrigated with Saline Saline -Foul Odor after Cleansing No No -Bioengineered Tissue No No -Bleeding Controlled with Pressure NA -Offloading No No -Treatment Response Procedure Procedure Tolerated Well Tolerated Well Pain Scale: 0-10 Numeric Is Patient Pain Free? Yes Yes No debridement was completed today Assessment/Plan Active Problems (Last Updated 03/11/18 @ 14:54 by Cecil Butts DO) Spina bifida (Chronic) Decubitus ulcer of lower back, stage 3 (Chronic) midline Assessment: right foot wound (possible burn) - healed today. spina bifida. malnutrition. lower extremity edema Plan: Improving. Miniml area left. No debridment completed today. Continue Pomogram with adaptic over top. Change daily. Offloading and Increased protein intake also recommended. All their Questions were answered and they were advised to call with any further questions or concerns. Follow-up in 1 week. This note was generated with [employer] software. It may contain incorrect words, spelling, and punctuation that were not noted in checking the note before signing.
[2019-03-29 10:33] VITALS: BP 111/75; PULSE 100; RESP 22; TEMP 37.7; BMI 29.0
--- NOTE | 2019-03-29 10:53 | PN.PCM_ITS ---
(1) Decubitus ulcer of lower back, stage 3 Status: Chronic Current Visit: Yes Code(s): L89.103 - Pressure ulcer of unspecified part of back, stage 3 Comment: midline (2) Spina bifida Status: Chronic Current Visit: Yes Qualifiers: Code(s): Q05.9 - Spina bifida, unspecified Type of Wound Date of Service: 03/29/19 Chief Complaint: right foot wound healed History of Wound: Ms. Crews is a 43-year-old who is seen today as a courtesy visit for Dr. Kinney with a lower back ulcer noted the beginning of October. She denies any known precipitating factor but does have spina bifida and spends a significant amount of time in a wheelchair. She has had ulcers in this area in the past. She initially had been doing some conservative management at home without any significant improvement. Initially there was drainage noted however there is not any significant drainage at this time. She denies chills, fever otherwise feeling of unwell. She has been tolerating teatment with Promogran moistened and changed every other day. She has been off work for several weeks. Progress of Wound: Slight worsening compared to last week however, still minimal area left. - Physical Exam Vital Signs Temp Pulse Resp BP 100 F H 100 22 H 111/75 03/29/19 10:33 03/29/19 10:33 03/29/19 10:33 03/29/19 10:33 General: Alert, Oriented x3, Cooperative, No apparent distress HEENT: Atraumatic, Normocephalic Oral: Moist Mucosa Neck: Supple Lungs: Normal air movement Abdomen: Non Tender, Obese Skin: Ulcer/ Wound Wound Measurements and Assessment WC - Nurse 1 - General Ulcer Measurement Start: 03/08/19 12:27 Freq: Status: Active Protocol: Activity Type Activity Date Activity User E-Sign Co-Sign Detail Recorded Client Recorded Date Recorded By Document 03/29/19 10:33 DL [id number] 03/29/19 10:36 DL 03/29/19 10:33 Wound Center Nurse 1 [Ulcer Assessment] #3- LUMBAR AREA -Current Size (cm) - Length 0.2 -Current Size (cm) - Width 0.2 -Current Size (cm) - Depth 0.2 -Total Square Cm 0.04 -Photo Taken No -Exudate Amt None Present -Wound Margin Thickened -Granulation Amt Small (1-33%) -Granulation Quality [place] -Necrosis Amt None Present (0 %) -Structure Exposed N/A -Texture (Patience-wound Skin Appearance) Scarring -Moisture (Patience-wound Skin Appearance No Abnormality ) -Color (Patience-wound Skin Appearance) No Abnormality -Temperature (Patience-wound Skin No Abnormality Appearance) (Pt Warm) -Tenderness on Palpation (Patience-wound No Skin Appearance) -Ulcer Cleansing Rinsed/ Irrigated with Saline -Foul Odor after Cleansing No -Anesthetic Used 5% Lidocaine Gel WC - Nurse 2 - General Ulcer CM Notes Start: 03/08/19 12:27 Freq: Status: Active Protocol: Activity Type Activity Date Activity User E-Sign Co-Sign Detail Recorded Client Recorded Date Recorded By Document 03/29/19 10:48 MW [id number] 03/29/19 10:51 MW 03/29/19 10:48 Wound Center Nurse 2 [Procedure/Treatment] -Time 10:48 -Correct Patient Yes -Correct Side, Site, Position Yes -Correct Procedure Yes -Procedure Performed Yes -Type of Procedure Debridement -Clinical Debridement Selective -Post Debridement Size (cm) - Length 0.2 -Post Debridement Size (cm) - Width 0.3 -Post Debridement Size (cm) - Depth 0.3 -Total Square Cm 0.06 -Wound/Ulcer Outcome Not Healed -Ulcer Cleansing Rinsed/ Irrigated with Saline -Foul Odor after Cleansing No -Bioengineered Tissue No -Bleeding Controlled with Pressure -Offloading No -Treatment Response Procedure Tolerated Well [See Physician Procedure note for Specifics] Pain Scale: 0-10 Numeric [Pain] -Is Patient Pain Free? Yes Musculoskeletal: No Muscle Wasting Neurological: Cranial nerves II-XII grossly intact Psych/Mental Status: Normal Affect Debridement Note Post-Debridement Measurements/Treatment WC - Nurse 2 - General Ulcer CM Notes Start: 03/08/19 12:27 Freq: Status: Active Protocol: Activity Type Activity Date Activity User E-Sign Co-Sign Detail Recorded Client Recorded Date Recorded By Document 03/08/19 12:47 MW [id number] 03/08/19 12:50 MW Document 03/15/19 10:03 MW [id number] 03/15/19 10:04 MW Document 03/29/19 10:48 MW [id number] 03/29/19 10:51 MW 03/08/19 03/15/19 03/29/19 12:47 10:03 10:48 Wound Center Nurse 2 #3- LUMBAR AREA -Time 12:47 10:03 10:48 -Correct Patient Yes Yes Yes -Correct Side, Site, Position Yes Yes Yes -Correct Procedure Yes Yes Yes -Procedure Performed Yes No Yes -Type of Procedure Debridement Debridement -Clinical Debridement Subcutaneous Selective -Post Debridement Size (cm) - Length 0.3 0.1 0.2 -Post Debridement Size (cm) - Width 1.8 0.1 0.3 -Post Debridement Size (cm) - Depth 0.3 0.1 0.3 -Total Square Cm 0.54 0.01 0.06 -Wound/Ulcer Outcome Not Healed Not Healed Not Healed -Ulcer Cleansing Rinsed/ Rinsed/ Rinsed/ Irrigated with Irrigated with Irrigated with Saline Saline Saline -Foul Odor after Cleansing No No No -Bioengineered Tissue No No No -Bleeding Controlled with Pressure NA Pressure -Offloading No No No -Treatment Response Procedure Procedure Procedure Tolerated Well Tolerated Well Tolerated Well Pain Scale: 0-10 Numeric Is Patient Pain Free? Yes Yes Yes Wound debrided: Mid lower back Type of Debridement: Excisional debridement Anesthesia Used: 4% Lidocaine Solution Depth: Down to and including healthy tissue, in the subcutaneous layer Percentage of wound debrided: 100 Instrument Used: - - 1mm Tissue Removed: Slough and devitalized tissue Severity: Fat Layer Exposed Amount of bleeding with debridement: Mild Bleeding Controlled with: Pressure Patient tolerated procedure well Assessment/Plan Active Problems (Last Updated 03/11/18 @ 14:54 by Cecil Butts DO) Spina bifida (Chronic) Decubitus ulcer of lower back, stage 3 (Chronic) midline Assessment: Same as above. Plan: Stable. Debridement done as documented above. Procedure was well tolerated. Continue Pomogram with adaptic over top. Change daily. Offloading and Increased protein intake also recommended. Has been sitting and laying a lot over the past week. All their Questions were answered and they were advised to call with any further questions or concerns. Follow-up in 1 week. This note was generated with [employer] software. It may contain incorrect words, spelling, and punctuation that were not noted in checking the note before signing.
== END 2019-04-05 23:59 ==
LOC: WC 10:00
PROVIDERS: Family Provider Family Medicine; PCP Family Medicine; Visit Provider Internal Medicine
DX: L89.103 Pressure ulcer of unspecified part of back, stage 3 (principal); Q05.9 Spina bifida, unspecified; R60.0 Localized edema
CPT/HCPCS: 11042; 97597; 99213; G0463

== ENCOUNTER 2019-03-30 10:35 | Day surgery (SDC) | payer MEDICARE, MEDICAID, SELFPAY ==
[2019-03-23 12:07] VITALS: BMI 33.4
[2019-03-29 10:33] VITALS: BMI 29.0
[2019-03-30] VITALS (11 sets, daily range): BP systolic 80–143; BP diastolic 50–92; PULSE 75–99; RESP 15–16; TEMP 36.3–37.3; O2SAT 92–100; BMI 30.3
[2019-03-30] MEDS: Lactated Ringers 1,000 ML 100 ML IV (11:30)
--- NOTE | 2019-03-30 12:36 | DCINST_ITS ---
- Discharge Diagnoses Current Active Problems: Current Active and Chronic Problems (Last Updated 03/11/18 @ 14:54 by Cecil Butts DO) Spina bifida (Chronic) Decubitus ulcer of lower back, stage 3 (Chronic) midline Reason(s) for Visit for Discharge Instructions: shockwave lithotripsy You will use the following diet at home:: Regular Your food should be the consistency of: Regular Discharge Activity: Return to Normal Activity Call your doctor if you observe: Fever of 101 or Higher Allergies/Adverse Reactions: Allergies amoxicillin [From Augmentin] Adverse Reaction (Verified 03/30/19 11:04) Diarrhea azithromycin [From Zithromax Z-Turner] Adverse Reaction (Verified 03/30/19 11:04) Diarrhea ciprofloxacin [From Cipro] Adverse Reaction (Verified 03/30/19 11:04) Pain in joints clavulanic acid [From Augmentin] Adverse Reaction (Verified 03/30/19 11:04) Diarrhea Medications to take at Discharge Multivitamins,Therapeutic [Multivitamin] 1 tablet PO QHS 04/24/13 Oxybutynin Chloride [Ditropan Xl] 15 mg PO QHS 04/24/13 Paroxetine [Paxil] 40 mg PO QHS 04/24/13 Bacillus Coagulans [Probiotic] 1 each PO QHS 03/11/18 Omeprazole [Prilosec] 20 mg PO QHS 03/11/18 Aspirin [Aspirin, Baby] 81 mg PO DAILY@0800 tab.chew 03/14/18 Metoprolol Tartrate [Lopressor (Beta Jackie)] 25 mg PO BID 04/11/18 MedroxyPROGESTERone [Depo-Provera] 150 mg IM .[id number] 03/19/19 Hydrocodone/Acetaminophen [[place] 5-325 Tablet] 1 ea PO Q4H PRN PRN 5 Days #20 tab 03/23/19 Potassium Citrate [Urocit-K] 15 meq PO BID #60 tablet.er 03/23/19 Smz/Tmp Ds [Bactrim Ds] 1 tab PO BID #14 tab 03/23/19 Smz/Tmp Ds [Bactrim Ds] 1 tab PO BID #14 tab 03/30/19 The following prescriptions were given: Smz/Tmp Ds [Bactrim Ds] 1 tab PO BID #14 tab Prescription Printed Primary Care Physician: Parviz Pruitt MD [Primary Care Provider] - Test Results: Test results from this visit will be discussed in further detail at your follow- up appointment, if applicable. Please Follow Up With: Enzo Hernandez MD When: 10 days with xray
--- NOTE | 2019-03-30 12:50 | PCM.OPRPT ---
Report of Operation Date of Procedure: 03/30/19 Pre-Operative Diagnosis: Right kidney stone large status post stent Post-Operative Diagnosis: The same Surgery/Procedure Performed:: Right extracorporeal shockwave lithotripsy Description of Surgical Findings:: 44-year-old female with spina bifida she has a history of augmented bladder she self catheterizes through the stoma in her abdomen, she is been getting recurrent infections on work-up was found to have an obstructing stone in the right kidney in the right UPJ area. Last week a stent was placed cultures was done showed multiple organisms growing she was placed on antibiotics and also given IV antibiotics today for the procedure. Today she was taken back to the operating room after induction of anesthesia she was placed supine on the table we were then able to localize a stone in the right renal pelvis and a total of 3000 shockwaves were delivered to the stone in the right kidney. Appeared to break up fairly quickly as a very faint stone could be infectious stone therefore she was on antibiotics to prevent sepsis. Stent was left in place at the completion of the shockwave treatment the stone recommend a pretty well but decided not to move the stent left stent placed all the fragments to pass and see her in 10 days with an x-ray and then remove the stent. She was taken back to the PACU in good condition anesthesia was reversed and went spoke to her mother. Type of Anesthesia:: General Drains: stent in place - Admit VTE Documentation VTE Present on Admission: No VTE Mechan Device Prophylaxis: SCD's
[2019-03-30] MEDS: Ipratropium/Albuterol Sulfate 3 ML AMPUL.NEB INHALATION (13:15)
--- NOTE | 2019-04-10 07:44 | HP.PCM_ITS ---
History of Present Illness Date of Admission: 04/04/19 Chief Complaint: presents for ESWL The patient is a 44 year old Female, had uti, treated, on bactrim, plan for ESWL today Past Medical History Past Medical History (Chronic Problems): Chronic Problems (Last Updated 03/11/18 @ 14:54 by Cecil Butts DO) Edema of right lower extremity (Chronic) Spina bifida (Chronic) Decubitus ulcer of lower back, stage 3 (Chronic) midline Medical History: Medical History (Last Updated 03/11/18 @ 14:54 by Cecil Butts DO) Acquired scoliosis M41.9 Spina bifida Q05.9 Allergies amoxicillin [From Augmentin] Adverse Reaction (Verified 03/30/19 11:04) Diarrhea azithromycin [From Zithromax Z-Turner] Adverse Reaction (Verified 03/30/19 11:04) Diarrhea ciprofloxacin [From Cipro] Adverse Reaction (Verified 03/30/19 11:04) Pain in joints clavulanic acid [From Augmentin] Adverse Reaction (Verified 03/30/19 11:04) Diarrhea Home Medications: Ambulatory Orders Medication Instructions Recorded Multivitamins,Therapeutic 1 tablet PO QHS 04/24/13 [Multivitamin] Oxybutynin Chloride [Ditropan Xl] 15 mg PO QHS 04/24/13 Paroxetine [Paxil] 40 mg PO QHS 04/24/13 Bacillus Coagulans [Probiotic] 1 each PO QHS 03/11/18 Omeprazole [Prilosec] 20 mg PO QHS 03/11/18 Aspirin [Aspirin, Baby] 81 mg PO DAILY@0800 tab.chew 03/14/18 Metoprolol Tartrate [Lopressor 25 mg PO BID 04/11/18 (Beta Jackie)] MedroxyPROGESTERone [Depo-Provera] 150 mg IM .[id number] 03/19/19 Potassium Citrate [Urocit-K] 15 meq PO BID #60 tablet.er 03/23/19 Smz/Tmp Ds [Bactrim Ds] 1 tab PO BID #14 tab 03/23/19 Smz/Tmp Ds [Bactrim Ds] 1 tab PO BID #14 tab 03/30/19 Surgical History: Surgical History (Last Updated 03/11/18 @ 14:55 by Cecil Jopperi, DO) Hx of cholecystectomy Z90.49 Surgical History: cholecystectomy, - - vertebral rods. 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[employer] AND VICE History: No pertinent [employer]ECTIVE NARCOT[employer] AND V[employer] history Smoking Status: Never smoker - *Family History Maternal History Items: - VTE Information - Inpt Only VTE Present on Admission: No - Physical Exam Vitals/I&O's: Vital Signs Temp Pulse Resp BP Pulse Ox 97.5 F L 89 16 92/50 L 92 03/30/19 14:45 03/30/19 16:15 03/30/19 16:15 03/30/19 16:15 03/30/19 16:15 Oxygen Flow Rate (L/min) 1 Oxygen Delivery Method Room Air Weight: 65.771 kg Body Mass Index (BMI) 30.3 General: Alert HEENT: Atraumatic Neck: Supple Lungs: Clear to auscultation Abdomen: Soft, Obese Assessment/Plan All Active Problems (Last Updated 03/11/18 @ 14:54 by Cecil Butts DO) Wound, open, foot (Resolved) Acute respiratory failure with hypoxia (Acute) Sepsis (Acute) Gram-negative pneumonia (Acute) Decubitus ulcer of right buttock, stage 1 (Acute) plan for ESWL uti treated stent in place
== END 2019-03-30 16:29 | disposition home or self-care (01) ==
LOC: SDC 10:38 → AC 10:39
PROVIDERS: Family Provider Family Medicine; PCP Family Medicine; Referring Provider Urology; Visit Provider Urology
PROC: (CPT 50590; principal; 2019-03-30 12:10)
DX: N20.0 Calculus of kidney (principal); I27.20 Pulmonary hypertension, unspecified; K21.9 Gastro-esophageal reflux disease without esophagitis; Z87.442 Personal history of urinary calculi; Q05.9 Spina bifida, unspecified; R60.0 Localized edema; L89.311 Pressure ulcer of right buttock, stage 1; M41.9 Scoliosis, unspecified; Z79.82 Long term (current) use of aspirin; Z88.0 Allergy status to penicillin; Z88.1 Allergy status to other antibiotic agents; N39.0 Urinary tract infection, site not specified; Z99.3 Dependence on wheelchair
CPT/HCPCS: 00873; 50590; 94640; J7120; J2405

== ENCOUNTER → 2019-04-09 09:26 | Outpatient (CLI) | payer MEDICARE, MEDICAID, SELFPAY ==
[2019-03-30 11:06] VITALS: BMI 30.3
--- NOTE | 2019-04-09 09:30 | RAD_ITS ---
STUDY: X-RAY - ABDOMEN/PELVIS REASON FOR EXAM: Female, 44 years old. Kidney stones with stent placement on the right TECHNIQUE: Two AP supine views of the abdomen and pelvis. COMPARISON: Prior study of 03/11/2018 FINDINGS: Normal visualized lung bases. There is a moderate amount of colonic gas. There is no demonstrated free abdominal air. There is a right-sided ureteral stent. The proximal portion of the stent is indeterminate in location. The distal portion of stent is projecting over the mid lower pelvis. A WHEAT INSPECTOR shunt is also noted with tip projecting over the epigastrium. Normal soft tissue structures. There is severe deformity of the right hemipelvis and right hip. There are severe degenerative changes of the left hip joint. Stabilizing rods are seen extending from the lower thoracic level to the sacrum. The right-sided stabilization rhonda is fractured in the sacral area. RAD/Abdomen Single View IMPRESSION: Right-sided ureteral stent noted with proximal portion in indeterminate position. There is a moderate amount of colonic gas. Stabilizing rods noted in the spine from the visualized lower thoracic region to sacrum. The lower right sided rhonda is fractured in the sacral region. Severe deformity of the right hemipelvis and hip and severe degenerative changes of the left hip. A WHEAT INSPECTOR shunt is seen with tip projecting over the epigastrium. Electronically Signed: Rodney Hanson MD at 22:28 EST , Service support ,
== END ==
PROVIDERS: Family Provider Family Medicine; PCP Family Medicine; Referring Provider Nurse Practitioner Adult Health; Visit Provider Nurse Practitioner Adult Health
DX: N20.0 Calculus of kidney (principal)
CPT/HCPCS: 74018

== ENCOUNTER 2019-04-26 09:15 | Outpatient (RCR) | payer MEDICARE, MEDICAID, SELFPAY ==
[2019-03-30 11:06] VITALS: BMI 30.3
[2019-04-06 00:44] VITALS: BP 111/75; PULSE 100; RESP 22; TEMP 37.7
[2019-04-12 10:00] VITALS: BP 121/77; PULSE 76; RESP 18; TEMP 35.1; BMI 30.3
--- NOTE | 2019-04-12 17:30 | PCM.WC.PN ---
(1) Decubitus ulcer of lower back, stage 3 Status: Chronic Current Visit: Yes Code(s): L89.103 - Pressure ulcer of unspecified part of back, stage 3 Comment: midline (2) Spina bifida Status: Chronic Current Visit: Yes Qualifiers: Code(s): Q05.9 - Spina bifida, unspecified Type of Wound Date of Service: 04/12/19 Chief Complaint: right foot wound healed History of Wound: Ms. Crews is a 43-year-old who is seen today as a courtesy visit for Dr. Kinney with a lower back ulcer noted the beginning of October. She denies any known precipitating factor but does have spina bifida and spends a significant amount of time in a wheelchair. She has had ulcers in this area in the past. She initially had been doing some conservative management at home without any significant improvement. Initially there was drainage noted however there is not any significant drainage at this time. She denies chills, fever otherwise feeling of unwell. She has been tolerating teatment with Promogran moistened and changed every other day. She has been off work for several weeks. Progress of Wound: No significant change. No new concerns at this time. - Physical Exam Vital Signs Temp Pulse Resp BP 95.1 F L 76 18 121/77 H 04/12/19 10:00 04/12/19 10:00 04/12/19 10:00 04/12/19 10:00 General: Alert, Cooperative, No apparent distress HEENT: Atraumatic, Normocephalic Oral: Moist Mucosa Neck: Supple Abdomen: Non Tender, Obese Extremities: No cyanosis Wound Measurements and Assessment WC - Nurse 1 - General Ulcer Measurement Start: 04/12/19 09:59 Freq: Status: Active Protocol: Activity Type Activity Date Activity User E-Sign Co-Sign Detail Recorded Client Recorded Date Recorded By Document 04/12/19 10:00 [id number] 04/12/19 10:08 04/12/19 10:00 Wound Center Nurse 1 [Ulcer Assessment] #3- LUMBAR AREA -Combined with other wound No -Current Size (cm) - Length 0.2 -Current Size (cm) - Width 0.6 -Current Size (cm) - Depth 0.1 -Total Square Cm 0.12 -Photo Taken No -Epithelialization Small 1-33% -Tunneling No -Undermining/Tunneling No -Circular Undermining No -Exudate Amt None Present -Wound Margin Distinct, Outline Attached -Granulation Amt Large (67-100%) -Granulation Quality Red -Slough/Fibrin Yes -Necrosis Amt None Present (0 %) -Necrotic Tissue Type Adherent Slough -Structure Exposed N/A -Texture (Patience-wound Skin Appearance) Scarring -Moisture (Patience-wound Skin Appearance Maceration ) -Color (Patience-wound Skin Appearance) No Abnormality, Assessed -Temperature (Patience-wound Skin No Abnormality Appearance) (Pt Warm) -Tenderness on Palpation (Patience-wound No Skin Appearance) -Ulcer Cleansing Rinsed/ Irrigated with Saline -Foul Odor after Cleansing No -Anesthetic Used 4% Lidocaine Solution [Edema Assessment] -Lower Limb Edema Present NA WC - Nurse 2 - General Ulcer CM Notes Start: 04/12/19 09:59 Freq: Status: Active Protocol: Activity Type Activity Date Activity User E-Sign Co-Sign Detail Recorded Client Recorded Date Recorded By Document 04/12/19 10:19 MW [id number] 04/12/19 10:21 MW 04/12/19 10:19 Wound Center Nurse 2 [Procedure/Treatment] #3- LUMBAR AREA -Time 10:21 -Correct Patient Yes -Correct Side, Site, Position Yes -Correct Procedure Yes -Procedure Performed Yes -Type of Procedure Debridement -Clinical Debridement Subcutaneous -Post Debridement Size (cm) - Length 0.1 -Post Debridement Size (cm) - Width 0.5 -Post Debridement Size (cm) - Depth 0.1 -Total Square Cm 0.05 -Wound/Ulcer Outcome Not Healed -Ulcer Cleansing Rinsed/ Irrigated with Saline -Foul Odor after Cleansing No -Bioengineered Tissue No -Bleeding Controlled with Pressure -Offloading No -Treatment Response Procedure Tolerated Well [See Physician Procedure note for Specifics] Pain Scale: 0-10 Numeric [Pain] -Is Patient Pain Free? Yes Neurological: Cranial nerves II-XII grossly intact Psych/Mental Status: Normal Affect Debridement Note Post-Debridement Measurements/Treatment WC - Nurse 2 - General Ulcer CM Notes Start: 04/12/19 09:59 Freq: Status: Active Protocol: Activity Type Activity Date Activity User E-Sign Co-Sign Detail Recorded Client Recorded Date Recorded By Document 04/12/19 10:19 MW [id number] 04/12/19 10:21 MW 04/12/19 10:19 Wound Center Nurse 2 #3- LUMBAR AREA -Time 10:21 -Correct Patient Yes -Correct Side, Site, Position Yes -Correct Procedure Yes -Procedure Performed Yes -Type of Procedure Debridement -Clinical Debridement Subcutaneous -Post Debridement Size (cm) - Length 0.1 -Post Debridement Size (cm) - Width 0.5 -Post Debridement Size (cm) - Depth 0.1 -Total Square Cm 0.05 -Wound/Ulcer Outcome Not Healed -Ulcer Cleansing Rinsed/ Irrigated with Saline -Foul Odor after Cleansing No -Bioengineered Tissue No -Bleeding Controlled with Pressure -Offloading No -Treatment Response Procedure Tolerated Well Pain Scale: 0-10 Numeric Is Patient Pain Free? Yes Wound debrided: Mid lower back Type of Debridement: Excisional debridement Anesthesia Used: 4% Lidocaine Solution Depth: Down to and including healthy tissue, in the subcutaneous layer Percentage of wound debrided: 100 Instrument Used: - - 1mm Tissue Removed: Slough and devitalized tissue Severity: Fat Layer Exposed Amount of bleeding with debridement: Mild Bleeding Controlled with: Pressure Patient tolerated procedure well Assessment/Plan Active Problems (Last Updated 03/11/18 @ 14:54 by Cecil Butts DO) Spina bifida (Chronic) Decubitus ulcer of lower back, stage 3 (Chronic) midline Assessment: Same as above. Plan: Stable. Debridement done as documented above. Procedure was well tolerated. Continue Pomogram with adaptic over top. Change daily to twice daily depending on drainage. Offloading and Increased protein intake also recommended. All their Questions were answered and they were advised to call with any further questions or concerns. Follow-up in 1 week. This note was generated with [employer] software. It may contain incorrect words, spelling, and punctuation that were not noted in checking the note before signing. Code Visit [id number]: [id number] Sher[place] subq tissue 20 sq cm/<
[2019-04-26 09:27] VITALS: BP 133/56; PULSE 84; RESP 16; TEMP 37; BMI 30.3
--- NOTE | 2019-04-26 09:46 | PCM.WC.PN ---
(1) Decubitus ulcer of lower back, stage 3 Status: Chronic Current Visit: Yes Code(s): L89.103 - Pressure ulcer of unspecified part of back, stage 3 Comment: midline (2) Spina bifida Status: Chronic Current Visit: Yes Qualifiers: Code(s): Q05.9 - Spina bifida, unspecified Type of Wound Date of Service: 04/26/19 Chief Complaint: right foot wound healed History of Wound: Ms. Crews is a 43-year-old who is seen today as a courtesy visit for Dr. Kinney with a lower back ulcer noted the beginning of October. She denies any known precipitating factor but does have spina bifida and spends a significant amount of time in a wheelchair. She has had ulcers in this area in the past. She initially had been doing some conservative management at home without any significant improvement. Initially there was drainage noted however there is not any significant drainage at this time. She denies chills, fever otherwise feeling of unwell. She has been tolerating teatment with Promogran moistened and changed every other day. She has been off work for several weeks. Progress of Wound: Healed. No ne concerns. - Physical Exam Vital Signs Temp Pulse Resp BP 98.6 F 84 16 133/56 H 04/26/19 09:27 04/26/19 09:27 04/26/19 09:27 04/26/19 09:27 General: Alert, Oriented x3, Cooperative, No apparent distress HEENT: Atraumatic, Normocephalic Oral: Moist Mucosa Neck: Supple Lungs: Normal air movement Extremities: No cyanosis Wound Measurements and Assessment WC - Nurse 1 - General Ulcer Measurement Start: 04/12/19 09:59 Freq: Status: Active Protocol: Activity Type Activity Date Activity User E-Sign Co-Sign Detail Recorded Client Recorded Date Recorded By Document 04/26/19 09:27 [facility] [id number] 04/26/19 09:37 [facility] 04/26/19 09:27 Wound Center Nurse 1 [Ulcer Assessment] #3- LUMBAR AREA -Combined with other wound No -Current Size (cm) - Length 0.1 -Current Size (cm) - Width 0.1 -Current Size (cm) - Depth 0.1 -Total Square Cm 0.01 -Photo Taken No -Epithelialization Large 67-100% -Tunneling No -Undermining/Tunneling No -Circular Undermining No -Slough/Fibrin Yes -Necrosis Amt Small (1-33%) -Necrotic Tissue Type Eschar -Texture (Patience-wound Skin Appearance) Assessed, Scarring -Moisture (Patience-wound Skin Appearance Assessed,Dry/ ) Scaly -Color (Patience-wound Skin Appearance) Assessed -Temperature (Patience-wound Skin No Abnormality Appearance) (Pt Warm) -Tenderness on Palpation (Patience-wound No Skin Appearance) -Ulcer Cleansing Rinsed/ Irrigated with Saline -Foul Odor after Cleansing No -Anesthetic Used 5% Lidocaine Gel WC - Nurse 2 - General Ulcer CM Notes Start: 04/12/19 09:59 Freq: Status: Active Protocol: Activity Type Activity Date Activity User E-Sign Co-Sign Detail Recorded Client Recorded Date Recorded By Document 04/26/19 09:44 MW [id number] 04/26/19 09:45 MW 04/26/19 09:44 Wound Center Nurse 2 [Procedure/Treatment] -Time 09:45 -Correct Patient Yes -Correct Side, Site, Position Yes -Correct Procedure Yes -Procedure Performed No -Post Debridement Size (cm) - Length 0 -Post Debridement Size (cm) - Width 0 -Post Debridement Size (cm) - Depth 0 -Total Square Cm 0 -Wound/Ulcer Outcome Healed- Epithelialized [See Physician Procedure note for Specifics] Pain Scale: 0-10 Numeric [Pain] -Is Patient Pain Free? Yes Musculoskeletal: No Muscle Wasting Neurological: Cranial nerves II-XII grossly intact Psych/Mental Status: Normal Affect Debridement Note Post-Debridement Measurements/Treatment - Nurse 2 - General Ulcer CM Notes Start: 04/12/19 09:59 Freq: Status: Active Protocol: Activity Type Activity Date Activity User E-Sign Co-Sign Detail Recorded Client Recorded Date Recorded By Document 04/12/19 10:19 MW [id number] 04/12/19 10:21 MW Document 04/26/19 09:44 MW [id number] 04/26/19 09:45 MW 04/12/19 04/26/19 10:19 09:44 Wound Center Nurse 2 #3- LUMBAR AREA -Time 10:21 09:45 -Correct Patient Yes Yes -Correct Side, Site, Position Yes Yes -Correct Procedure Yes Yes -Procedure Performed Yes No -Type of Procedure Debridement -Clinical Debridement Subcutaneous -Post Debridement Size (cm) - Length 0.1 0 -Post Debridement Size (cm) - Width 0.5 0 -Post Debridement Size (cm) - Depth 0.1 0 -Total Square Cm 0.05 0 -Wound/Ulcer Outcome Not Healed Healed- Epithelialized -Ulcer Cleansing Rinsed/ Irrigated with Saline -Foul Odor after Cleansing No -Bioengineered Tissue No -Bleeding Controlled with Pressure -Offloading No -Treatment Response Procedure Tolerated Well Pain Scale: 0-10 Numeric Is Patient Pain Free? Yes Yes No debridement was completed today Assessment/Plan Active Problems (Last Updated 03/11/18 @ 14:54 by Cecil Butts DO) Spina bifida (Chronic) Decubitus ulcer of lower back, stage 3 (Chronic) midline Assessment: Same as above. Plan: Healed. Adaptic and guaze over area for 2 weeks. Keep area protected. Offloading and Increased protein intake also recommended. All their questions were answered and they were advised to call with any further questions or concerns. Discharge from the wound clinic. Call with any concerns. This note was generated with [employer] dictation software. It may contain incorrect words, spelling, and punctuation that were not noted in checking the note before signing. Code Visit Office Visits / Consults: [id number] OV L3 Est - E and M code level 3
== END 2019-05-05 23:59 ==
LOC: WC 09:15
PROVIDERS: Family Provider Family Medicine; PCP Family Medicine; Visit Provider Internal Medicine
DX: L89.103 Pressure ulcer of unspecified part of back, stage 3 (principal); Q05.9 Spina bifida, unspecified; R60.0 Localized edema
CPT/HCPCS: 11042; 99213; G0463

== ENCOUNTER 2019-05-17 10:45 | Outpatient (RCR) | payer MEDICARE, MEDICAID, SELFPAY ==
[2019-05-06 00:36] VITALS: BP 133/56; PULSE 84; RESP 16; TEMP 37
[2019-05-10 10:47] VITALS: BMI 30.3
--- NOTE | 2019-05-10 11:11 | PCM.WC.PN ---
(1) Decubitus ulcer of lower back, stage 3 Status: Chronic Current Visit: Yes Code(s): L89.103 - Pressure ulcer of unspecified part of back, stage 3 Comment: midline (2) Spina bifida Status: Chronic Current Visit: Yes Qualifiers: Code(s): Q05.9 - Spina bifida, unspecified Type of Wound Date of Service: 05/10/19 Chief Complaint: right foot wound healed History of Wound: Ms. Crews is a 43-year-old who is seen today as a courtesy visit for Dr. Kinney with a lower back ulcer noted the beginning of October. She denies any known precipitating factor but does have spina bifida and spends a significant amount of time in a wheelchair. She has had ulcers in this area in the past. She initially had been doing some conservative management at home without any significant improvement. Initially there was drainage noted however there is not any significant drainage at this time. She denies chills, fever otherwise feeling of unwell. She has been tolerating teatment with Promogran moistened and changed every other day. She has been off work for several weeks. Progress of Wound: Healed out 2 weeks ago but presents today with superfiscial break down/ skin tear. - Physical Exam Vital Signs Temp Pulse Resp BP 98.6 F 84 16 133/56 H 05/06/19 00:36 05/06/19 00:36 05/06/19 00:36 05/06/19 00:36 General: Alert, Oriented x3, Cooperative, No apparent distress HEENT: Atraumatic, Normocephalic Oral: Moist Mucosa Neck: Supple Lungs: Normal air movement Abdomen: Obese Extremities: No cyanosis Skin: Ulcer/ Wound Wound Measurements and Assessment WC - Nurse 1 - General Ulcer Measurement Start: 05/10/19 10:47 Freq: Status: Active Protocol: Activity Type Activity Date Activity User E-Sign Co-Sign Detail Recorded Client Recorded Date Recorded By Document 05/10/19 10:47 DL [id number] 05/10/19 10:48 DL 05/10/19 10:47 Wound Center Nurse 1 [Ulcer Assessment] #3- LUMBAR AREA -Current Size (cm) - Length 0.3 -Current Size (cm) - Width 0.3 -Current Size (cm) - Depth 0.1 -Total Square Cm 0.09 -Photo Taken Yes -Exudate Amt Small -Exudate Type Serosanguineous -Wound Margin Distinct, Outline Attached -Granulation Amt Large (67-100%) -Granulation Quality [place] -Necrosis Amt None Present (0 %) -Structure Exposed N/A -Texture (Patience-wound Skin Appearance) Scarring -Moisture (Patience-wound Skin Appearance No Abnormality ) -Color (Patience-wound Skin Appearance) No Abnormality -Temperature (Patience-wound Skin No Abnormality Appearance) (Pt Warm) -Tenderness on Palpation (Patience-wound No Skin Appearance) -Ulcer Cleansing Rinsed/ Irrigated with Saline -Foul Odor after Cleansing No -Anesthetic Used 5% Lidocaine Gel WC - Nurse 2 - General Ulcer CM Notes Start: 05/10/19 10:47 Freq: Status: Active Protocol: Activity Type Activity Date Activity User E-Sign Co-Sign Detail Recorded Client Recorded Date Recorded By Document 05/10/19 11:01 MW [id number] 05/10/19 11:06 MW 05/10/19 11:01 Wound Center Nurse 2 [Procedure/Treatment] -Time 11:01 -Correct Patient Yes -Correct Side, Site, Position Yes -Correct Procedure Yes -Procedure Performed No -Post Debridement Size (cm) - Length 0.3 -Post Debridement Size (cm) - Width 0.3 -Post Debridement Size (cm) - Depth 0.1 -Total Square Cm 0.09 -Wound/Ulcer Outcome Not Healed -Ulcer Cleansing Rinsed/ Irrigated with Saline -Foul Odor after Cleansing No -Bioengineered Tissue No -Bleeding Controlled with NA -Offloading No -Treatment Response Procedure Tolerated Well [See Physician Procedure note for Specifics] Pain Scale: 0-10 Numeric [Pain] -Is Patient Pain Free? Yes Musculoskeletal: No Muscle Wasting Psych/Mental Status: Normal Affect Debridement Note Post-Debridement Measurements/Treatment WC - Nurse 2 - General Ulcer CM Notes Start: 05/10/19 10:47 Freq: Status: Active Protocol: Activity Type Activity Date Activity User E-Sign Co-Sign Detail Recorded Client Recorded Date Recorded By Document 05/10/19 11:01 MW [id number] 05/10/19 11:06 MW 05/10/19 11:01 Wound Center Nurse 2 #3- LUMBAR AREA -Time 11:01 -Correct Patient Yes -Correct Side, Site, Position Yes -Correct Procedure Yes -Procedure Performed No -Post Debridement Size (cm) - Length 0.3 -Post Debridement Size (cm) - Width 0.3 -Post Debridement Size (cm) - Depth 0.1 -Total Square Cm 0.09 -Wound/Ulcer Outcome Not Healed -Ulcer Cleansing Rinsed/ Irrigated with Saline -Foul Odor after Cleansing No -Bioengineered Tissue No -Bleeding Controlled with NA -Offloading No -Treatment Response Procedure Tolerated Well Pain Scale: 0-10 Numeric Is Patient Pain Free? Yes No debridement was completed today Assessment/Plan Active Problems (Last Updated 03/11/18 @ 14:54 by Cecil Butts DO) Spina bifida (Chronic) Decubitus ulcer of lower back, stage 3 (Chronic) midline Assessment: Same as above. Plan: Superfiscial breakdown. No debridement needed. Moistened pomogram with adaptic to the area. Moisture control discussed. May use Zince oxide cream to surrounding area. Keep area protected. Offloading and Increased protein intake also recommended. All their questions were answered and they were advised to call with any further questions or concerns. Follow up in 1 week. This note was generated with [employer] dictation software. It may contain incorrect words, spelling, and punctuation that were not noted in checking the note before signing. Code Visit Office Visits / Consults: [id number] OV L3 Est
[2019-05-17 11:33] VITALS: BP 132/75; PULSE 92; RESP 18; TEMP 37.3; BMI 30.3
--- NOTE | 2019-05-17 12:13 | PN.PCM_ITS ---
(1) Decubitus ulcer of lower back, stage 3 Status: Chronic Current Visit: Yes Code(s): L89.103 - Pressure ulcer of unspecified part of back, stage 3 Comment: midline (2) Spina bifida Status: Chronic Current Visit: Yes Qualifiers: Code(s): Q05.9 - Spina bifida, unspecified Type of Wound Date of Service: 05/17/19 Chief Complaint: right foot wound healed History of Wound: Ms. Crews is a 43-year-old who is seen today as a courtesy visit for Dr. Kinney with a lower back ulcer noted the beginning of October. She denies any known precipitating factor but does have spina bifida and spends a significant amount of time in a wheelchair. She has had ulcers in this area in the past. She initially had been doing some conservative management at home without any significant improvement. Initially there was drainage noted however there is not any significant drainage at this time. She denies chills, fever otherwise feeling of unwell. She has been tolerating teatment with Promogran moistened and changed every other day. She has been off work for several weeks. Progress of Wound: Stable. No new cocnerns. Still superficial tears - Physical Exam Vital Signs Temp Pulse Resp BP 99.1 F 92 18 132/75 H 05/17/19 11:33 05/17/19 11:33 05/17/19 11:33 05/17/19 11:33 General: Alert, Oriented x3, Cooperative, No apparent distress HEENT: Atraumatic, Normocephalic Oral: Moist Mucosa Neck: Supple Lungs: Normal air movement Abdomen: Obese Extremities: No cyanosis Skin: Ulcer/ Wound Wound Measurements and Assessment WC - Nurse 1 - General Ulcer Measurement Start: 05/10/19 10:47 Freq: Status: Active Protocol: Activity Type Activity Date Activity User E-Sign Co-Sign Detail Recorded Client Recorded Date Recorded By Document 05/17/19 11:33 [id number] 05/17/19 11:34 RB 05/17/19 11:33 Wound Center Nurse 1 [Ulcer Assessment] #3- LUMBAR AREA -Combined with other wound No -Current Size (cm) - Length 0.5 -Current Size (cm) - Width 0.3 -Current Size (cm) - Depth 0.2 -Total Square Cm 0.15 -Tunneling No -Undermining/Tunneling No -Circular Undermining No -Exudate Amt Small -Exudate Type Serosanguineous -Wound Margin Thickened & Rolled Under -Granulation Amt Large (67-100%) -Granulation Quality [place] -Slough/Fibrin Yes -Necrosis Amt Small (1-33%) -Structure Exposed N/A -Texture (Patience-wound Skin Appearance) Assessed, Excoriation -Moisture (Patience-wound Skin Appearance Assessed ) -Color (Patience-wound Skin Appearance) Assessed -Temperature (Patience-wound Skin No Abnormality Appearance) (Pt Warm) -Tenderness on Palpation (Patience-wound No Skin Appearance) -Foul Odor after Cleansing No -Anesthetic Used 4% Lidocaine Solution WC - Nurse 2 - General Ulcer CM Notes Start: 05/10/19 10:47 Freq: Status: Active Protocol: Activity Type Activity Date Activity User E-Sign Co-Sign Detail Recorded Client Recorded Date Recorded By Document 05/17/19 11:41 MW [id number] 05/17/19 11:45 MW 05/17/19 11:41 Wound Center Nurse 2 [Procedure/Treatment] -Time 11:41 -Correct Patient Yes -Correct Side, Site, Position Yes -Correct Procedure Yes -Procedure Performed Yes -Type of Procedure Debridement -Clinical Debridement Subcutaneous -Post Debridement Size (cm) - Length 0.1 -Post Debridement Size (cm) - Width 0.1 -Post Debridement Size (cm) - Depth 0.1 -Total Square Cm 0.01 -Wound/Ulcer Outcome Not Healed -Ulcer Cleansing Rinsed/ Irrigated with Saline -Foul Odor after Cleansing No -Bioengineered Tissue No -Bleeding Controlled with NA -Offloading No -Treatment Response Procedure Tolerated Well [See Physician Procedure note for Specifics] Pain Scale: 0-10 Numeric [Pain] -Is Patient Pain Free? Yes Musculoskeletal: No Muscle Wasting Neurological: Cranial nerves II-XII grossly intact Psych/Mental Status: Normal Affect Debridement Note Post-Debridement Measurements/Treatment WC - Nurse 2 - General Ulcer CM Notes Start: 05/10/19 10:47 Freq: Status: Active Protocol: Activity Type Activity Date Activity User E-Sign Co-Sign Detail Recorded Client Recorded Date Recorded By Document 05/10/19 11:01 MW [id number] 05/10/19 11:06 MW Document 05/17/19 11:41 MW [email or web address] 05/17/19 11:45 MW 05/10/19 05/17/19 11:01 11:41 Wound Center Nurse 2 #3- LUMBAR AREA -Time 11:01 11:41 -Correct Patient Yes Yes -Correct Side, Site, Position Yes Yes -Correct Procedure Yes Yes -Procedure Performed No Yes -Type of Procedure Debridement -Clinical Debridement Subcutaneous -Post Debridement Size (cm) - Length 0.3 0.1 -Post Debridement Size (cm) - Width 0.3 0.1 -Post Debridement Size (cm) - Depth 0.1 0.1 -Total Square Cm 0.09 0.01 -Wound/Ulcer Outcome Not Healed Not Healed -Ulcer Cleansing Rinsed/ Rinsed/ Irrigated with Irrigated with Saline Saline -Foul Odor after Cleansing No No -Bioengineered Tissue No No -Bleeding Controlled with NA NA -Offloading No No -Treatment Response Procedure Procedure Tolerated Well Tolerated Well Pain Scale: 0-10 Numeric Is Patient Pain Free? Yes Yes No debridement was completed today Assessment/Plan Active Problems (Last Updated 03/11/18 @ 14:54 by Cecil Butts DO) Spina bifida (Chronic) Decubitus ulcer of lower back, stage 3 (Chronic) midline Assessment: Same as above. Plan: Superficial breakdown. No debridement needed. Moistened pomogram with adaptic to the area. Optifoam for off loading. Moisture control discussed. May use Zince oxide cream to surrounding area. Keep area protected. Offloading and Increased protein intake also recommended. All their questions were answered and they were advised to call with any further questions or concerns. Follow up in 1 week. This note was generated with [employer] dictation software. It may contain incorrect words, spelling, and punctuation that were not noted in checking the note before signing. Code Visit Office Visits / Consults: [id number] OV L3 Est - E and M code level 3.
== END 2019-06-05 23:59 ==
LOC: WC 10:45
PROVIDERS: Family Provider Family Medicine; PCP Family Medicine; Visit Provider Internal Medicine
DX: L89.103 Pressure ulcer of unspecified part of back, stage 3 (principal); Q05.9 Spina bifida, unspecified
CPT/HCPCS: 99213; G0463

== ENCOUNTER 2019-06-07 09:47 | Outpatient (RCR) | payer MEDICARE, MEDICAID, SELFPAY ==
[2019-06-06 00:31] VITALS: BP 132/75; PULSE 92; RESP 18; TEMP 37.3
[2019-06-07 10:04] VITALS: BP 134/92; PULSE 87; RESP 18; TEMP 36.2; BMI 30.3
--- NOTE | 2019-06-07 10:55 | PCM.WC.PN ---
(1) Decubitus ulcer of right buttock, stage 1 Status: Acute Current Visit: Yes Code(s): L89.311 - Pressure ulcer of right buttock, stage 1 (2) Spina bifida Status: Chronic Current Visit: Yes Qualifiers: Code(s): Q05.9 - Spina bifida, unspecified Type of Wound Date of Service: 06/07/19 Chief Complaint: right foot wound healed History of Wound: Ms. Crews is a 43-year-old who is seen today as a courtesy visit for Dr. Kinney with a lower back ulcer noted the beginning of October. She denies any known precipitating factor but does have spina bifida and spends a significant amount of time in a wheelchair. She has had ulcers in this area in the past. She initially had been doing some conservative management at home without any significant improvement. Initially there was drainage noted however there is not any significant drainage at this time. She denies chills, fever otherwise feeling of unwell. She has been tolerating teatment with Promogran moistened and changed every other day. She has been off work for several weeks. Progress of Wound: Courtesy visit lumbar area resolved patient will be discharged - Physical Exam Vital Signs Temp Pulse Resp BP 97.1 F L 87 18 134/92 H 06/07/19 10:04 06/07/19 10:04 06/07/19 10:04 06/07/19 10:04 General: Oriented x3, Cooperative, Well developed HEENT: Atraumatic, PERRLA Oral: Moist Mucosa Neck: Supple, No JVD Lungs: Clear to auscultation, Normal air movement Cardiovascular: Regular rate, Regular Rhythm Abdomen: Bowel Sounds Present, Soft, Non Tender, No Hepato-splenomegaly Extremities: No clubbing, No edema Skin: Ulcer/ Wound - Lower lumbar area Wound Measurements and Assessment WC - Nurse 1 - General Ulcer Measurement Start: 06/07/19 10:03 Freq: Status: Active Protocol: Activity Type Activity Date Activity User E-Sign Co-Sign Detail Recorded Client Recorded Date Recorded By Document 06/07/19 10:04 [email or web address] [id number] 06/07/19 10:06 KALI 06/07/19 10:04 Wound Center Nurse 1 [Ulcer Assessment] #3- LUMBAR AREA -Combined with other wound No -Current Size (cm) - Length 0.1 -Current Size (cm) - Width 0.1 -Current Size (cm) - Depth 0.1 -Total Square Cm 0.01 -Date of Last Picture (Recall this 06/07/19 field) -Photo Taken Yes -Epithelialization Large 67-100% [Edema Assessment] -Lower Limb Edema Present NA WC - Nurse 2 - General Ulcer CM Notes Start: 06/07/19 10:03 Freq: Status: Active Protocol: Activity Type Activity Date Activity User E-Sign Co-Sign Detail Recorded Client Recorded Date Recorded By Document 06/07/19 10:18 MW [id number] 06/07/19 10:18 MW 06/07/19 10:18 Wound Center Nurse 2 [Procedure/Treatment] #3- LUMBAR AREA -Time 10:18 -Correct Patient Yes -Correct Side, Site, Position Yes -Correct Procedure Yes -Procedure Performed No -Post Debridement Size (cm) - Length 0 -Post Debridement Size (cm) - Width 0 -Post Debridement Size (cm) - Depth 0 -Total Square Cm 0 -Wound/Ulcer Outcome Healed- Epithelialized -Ulcer Cleansing Not Cleansed -Foul Odor after Cleansing No -Bioengineered Tissue No -Bleeding Controlled with NA -Offloading No -Treatment Response Procedure Tolerated Well [See Physician Procedure note for Specifics] Musculoskeletal: No Tenderness to Palpation of Joints or Extremities Lymphatic: No Cervical, Supraclavicular, or Inguinal Adenopathy Neurological: Cranial nerves II-XII grossly intact, Neuro grossly intact Psych/Mental Status: Normal Affect, Appropriate Debridement Note Post-Debridement Measurements/Treatment WC - Nurse 2 - General Ulcer CM Notes Start: 06/07/19 10:03 Freq: Status: Active Protocol: Activity Type Activity Date Activity User E-Sign Co-Sign Detail Recorded Client Recorded Date Recorded By Document 06/07/19 10:18 MW [id number] 06/07/19 10:18 MW 06/07/19 10:18 Wound Center Nurse 2 #3- LUMBAR AREA -Time 10:18 -Correct Patient Yes -Correct Side, Site, Position Yes -Correct Procedure Yes -Procedure Performed No -Post Debridement Size (cm) - Length 0 -Post Debridement Size (cm) - Width 0 -Post Debridement Size (cm) - Depth 0 -Total Square Cm 0 -Wound/Ulcer Outcome Healed- Epithelialized -Ulcer Cleansing Not Cleansed -Foul Odor after Cleansing No -Bioengineered Tissue No -Bleeding Controlled with NA -Offloading No -Treatment Response Procedure Tolerated Well No debridement was completed today Assessment/Plan Active Problems (Last Updated 03/11/18 @ 14:54 by Cecil Butts DO) Spina bifida (Chronic) Decubitus ulcer of right buttock, stage 1 (Acute) Assessment: Decubitus ulcer stage I lower lumbar area resolved. Spina bifida Plan: Discharge from the wound center continue padding the area with prescribed pads. Follow-up as needed
== END 2019-07-06 23:59 ==
LOC: WC 09:47
PROVIDERS: Family Provider Family Medicine; PCP Family Medicine; Visit Provider Internal Medicine
DX: Z09 Encounter for follow-up examination after completed treatment for conditions other than malignant neoplasm (principal); Q05.9 Spina bifida, unspecified
CPT/HCPCS: 99213; G0463

== ENCOUNTER → 2019-07-02 13:52 | Outpatient (CLI) | payer MEDICARE, MEDICAID, SELFPAY ==
[2019-06-07 10:04] VITALS: BMI 30.3
--- NOTE | 2019-07-02 14:06 | CT_ITS ---
STUDY: CT ABDOMEN AND PELVIS WITHOUT CONTRAST REASON FOR EXAM: Female, 44 years old. KIDNEY STONE? SPINA BIFIDA, BACK SURGERY AND CHOLECYSTECTOMY RADIATION DOSAGE (If Supplied By Facility): CTDIvol = ( 12.47 ) mGy, DLP = ( 517.25 ) mGycm TECHNIQUE: Transaxial images were obtained from the dome of the diaphragm to the symphysis pubis without oral contrast, and without intravenous contrast. Sagittal and coronal images were reconstructed. Individualized dose optimization techniques were used for this CT. COMPARISON: Comparison is made with prior study dated March 12, 2019. FINDINGS: A ventriculoperitoneal shunt tube is seen. The distal tip is in the right upper abdominal cavity. The visualized lung bases are unremarkable. The visualized portions of the heart are within normal limits. Normal liver. The patient is status post cholecystectomy. Normal spleen. There is mild diffuse atrophy of the pancreas. Normal bilateral adrenal glands. There is a 4 mm nonobstructive calculus in the lower pole calyx of the right kidney. The previously seen calcification at the right renal pelvis is not present at this time. Normal left kidney. Normal visualized stomach. Normal small intestine. Stable metallic density in the cecum. There is non-visualization of the appendix. Anastomosis is seen in the region of the ileocolic junction. Normal abdominal aorta. Normal inferior vena cava. Normal retroperitoneum. Mild degree of diffuse bladder wall thickening. Normal abdominal wall. Once again, there is a moderate degree of levoscoliosis with the spina bifida deformity and intraventricular fusion throughout the visualized thoracic and lumbar spine. CT/Abdomen/Pelvis without Cont IMPRESSION: 4 mm nonobstructive calculus in the inferior pole calyx of the right kidney. Mild degree of the bladder wall thickening. Electronically Signed: Jared Burns, at 14:43 EST , Service support ,
== END ==
PROVIDERS: PCP Nurse Practitioner Family; Referring Provider Urology; Visit Provider Urology
DX: N20.0 Calculus of kidney (principal)
CPT/HCPCS: 74176

== ENCOUNTER 2019-08-27 09:41 | Outpatient (RCR) | payer MEDICARE, MEDICAID, SELFPAY ==
[2019-08-27 09:51] VITALS: BP 124/90; PULSE 94; RESP 16; TEMP 36.6
--- NOTE | 2019-08-27 17:20 | HP.PCM_ITS ---
History of Present Illness Date of Service: 08/27/19 Chief Complaint: Recurrent sacral pressure sore, Stage III. History of Wound: 44-year-old woman with a history of spina bifida returns today with a 1 week history of breakdown and recurrence of a previous sacral pressure sore. She denies trauma. She had a flap done several years ago in the area and also had vertebral rods placed. The mother brings her in today for further evaluation and treatment. Today she denies fever. Her appetite is ok. She has spina bifida and spends a significant amount of time in a wheelchair. She has had multiple CT scans over the last year and a half with the latest one on 07/02/19. The CT Abdomen/Pelvis shows levoscoliosis with a spina bifida deformity of the lumbosacral region. Stabilization with orthopedic rods is seen throughout the visualized thoracolumbar region and sacrum. Screw fixation of both sacroiliac regions bilaterally. There is deformity of the bony pelvis. There are severe degenerative changes of the hips. There is dislocation of the right hip. Past Medical History Past Medical History: Chronic Problems (Last Updated 03/11/18 @ 14:[address] Cecil Butts, DO) History of back surgery (Chronic) had vertebral rods placed throughout thoracolumbar region and sacrum Edema of right lower extremity (Chronic) Spina bifida (Chronic) Decubitus ulcer of lower back, stage 3 (Chronic) midline Surgical History: cholecystectomy, - - vertebral rods. ileostomy Allergies/Adverse Reactions: Allergies amoxicillin [From Augmentin] Adverse Reaction (Verified 08/27/19 10:06) Diarrhea azithromycin [From Zithromax Z-Turner] Adverse Reaction (Verified 08/27/19 10:06) Diarrhea ciprofloxacin [From Cipro] Adverse Reaction (Verified 08/27/19 10:06) Pain in joints clavulanic acid [From Augmentin] Adverse Reaction (Verified 08/27/19 10:06) Diarrhea Home Medications: Ambulatory Orders Medication Instructions Recorded Multivitamins,Therapeutic 1 tablet PO QHS 04/24/13 [Multivitamin] Oxybutynin Chloride [Ditropan Xl] 15 mg PO QHS 04/24/13 Paroxetine [Paxil] 40 mg PO QHS 04/24/13 Bacillus Coagulans [Probiotic] 1 each PO QHS 03/11/18 Omeprazole [Prilosec] 20 mg PO QHS 03/11/18 Aspirin [Aspirin, Baby] 81 mg PO DAILY@0800 tab.chew 03/14/18 Metoprolol Tartrate [Lopressor 25 mg PO BID 04/11/18 (Beta Jackie)] MedroxyPROGESTERone [Depo-Provera] 150 mg IM .[id number] 03/19/19 Potassium Citrate [Urocit-K] 15 meq PO BID #60 tablet.er 03/23/19 Smz/Tmp Ds [Bactrim Ds] 1 tab PO BID #14 tab 03/23/19 Smz/Tmp Ds [Bactrim Ds] 1 tab PO BID #14 tab 03/30/19 - Family History Maternal No pertinent history Lives: With Family Smoking Status: Never smoker Tobacco Use: Non-smoker Alcohol: None Drugs: None Review of Systems Constitutional: Denies: Chills, Fever, Weight Change. Eyes: Denies: Pain, Vision Change. HEENT: Denies: Difficulty Hearing, Difficulty Swallowing, Sinus Congestion. Cardiovascular: Denies: Chest Pain, Palpitations. Respiratory: De nies: Cough, Shortness of Breath. Gastrointestinal: Denies: Diarrhea, Nausea, Vomiting. Genitourinary: Denies: Dysuria, Hematuria. Skin: Reports: Wounds. Endocrine: Denies: Heat/ Cold Intolerance, Polydipsia, Polyuria. Hematologic/ Lymphatic: Denies: Easy Bruising, Easy Bleeding - Physical Exam General: Alert, Oriented x3, Cooperative. HEENT: PERRL, EOMI. Oral: Moist Mucosa. Neck: Supple, nontender. No cervical adenopathy. Lungs: Clear to auscultation Cardiovascular: Regular rate, Regular Rhythm Abdomen: Soft, Nondistended. Extremities: Mild edema Skin: Has sacral pressure sore into the subcutaneous tissue. No exposed bone. No exposed hardware. Stage III pressure sore. Measures 0.6 x 0.8 x 0.6 cm. Neuro: CN II-XII grossly intact. Psych/Mental Status: Normal Affect, Appropriate Vital Signs Temp Pulse Resp BP 98 F 94 16 124/90 H 08/27/19 09:51 08/27/19 09:51 08/27/19 09:51 08/27/19 09:51 Wound Measurements and Assessment WC - Nurse 1 - General Ulcer Measurement Start: 08/27/19 09:44 Freq: Status: Active Protocol: Activity Type Activity Date Activity User E-Sign Co-Sign Detail Recorded Client Recorded Date Recorded By Document 08/27/19 09:51 DL [id number] 08/27/19 10:04 DL 08/27/19 09:51 Wound Center Nurse 1 [Ulcer Assessment] #5 Lumbar -Current Size (cm) - Length 0.5 -Current Size (cm) - Width 0.7 -Current Size (cm) - Depth 0.2 -Total Square Cm 0.35 -Photo Taken Yes -Classification - Thickness Full Thickness without Exposed Support Structure -Exudate Amt Small -Exudate Type Serosanguineous -Wound Margin Distinct, Outline Attached -Granulation Amt Small (1-33%) -Granulation Quality Red -Necrosis Amt Small (1-33%) -Necrotic Tissue Type Adherent Slough -Structure Exposed N/A -Texture (Patience-wound Skin Appearance) Scarring -Moisture (Patience-wound Skin Appearance No Abnormality ) -Color (Patience-wound Skin Appearance) No Abnormality -Temperature (Patience-wound Skin No Abnormality Appearance) (Pt Warm) -Tenderness on Palpation (Patience-wound No Skin Appearance) -Ulcer Cleansing Wound Cleanser -Foul Odor after Cleansing No -Anesthetic Used 5% Lidocaine Gel WC - Nurse 2 - General Ulcer CM Notes Start: 08/27/19 09:44 Freq: Status: Active Protocol: Activity Type Activity Date Activity User E-Sign Co-Sign Detail Recorded Client Recorded Date Recorded By Document 08/27/19 10:25 DL [id number] 08/27/19 10:27 DL 08/27/19 10:25 Wound Center Nurse 2 [Procedure/Treatment] -Time 10:26 -Correct Patient Yes -Correct Side, Site, Position Yes -Correct Procedure Yes -Procedure Performed Yes -Type of Procedure Debridement -Clinical Debridement Subcutaneous -Post Debridement Size (cm) - Length 0.6 -Post Debridement Size (cm) - Width 0.8 -Post Debridement Size (cm) - Depth 0.6 -Total Square Cm 0.48 -Wound/Ulcer Outcome Not Healed -Ulcer Cleansing Rinsed/ Irrigated with Saline -Foul Odor after Cleansing No -Bioengineered Tissue No -Bleeding Controlled with Pressure -Offloading No -Treatment Response Procedure Tolerated Well [See Physician Procedure note for Specifics] Pain Scale: 0-10 Numeric [Pain] -Is Patient Pain Free? Yes Debridement Note Post-Debridement Measurements/Treatment WC - Nurse 2 - General Ulcer CM Notes Start: 08/27/19 09:44 Freq: Status: Active Protocol: Activity Type Activity Date Activity User E-Sign Co-Sign Detail Recorded Client Recorded Date Recorded By Document 08/27/19 10:25 DL [id number] 08/27/19 10:27 DL 08/27/19 10:25 Wound Center Nurse 2 #5 Sacral pressure sore, Stage III -Time 10:26 -Correct Patient Yes -Correct Side, Site, Position Yes -Correct Procedure Yes -Procedure Performed Yes -Type of Procedure Debridement -Clinical Debridement Subcutaneous -Post Debridement Size (cm) - Length 0.6 -Post Debridement Size (cm) - Width 0.8 -Post Debridement Size (cm) - Depth 0.6 -Total Square Cm 0.48 -Wound/Ulcer Outcome Not Healed -Ulcer Cleansing Rinsed/ Irrigated with Saline -Foul Odor after Cleansing No -Bioengineered Tissue No -Bleeding Controlled with Pressure -Offloading No -Treatment Response Procedure Tolerated Well Pain Scale: 0-10 Numeric Is Patient Pain Free? Yes Wound debrided: #5 Sacral area. Laterality: Not Applicable Wound Grade/Stage: III. Type of Debridement: Excisional debridement Anesthesia Used: 4% Lidocaine Solution Depth: Down to and including healthy tissue, in the subcutaneous layer Percentage of wound debrided: 100 Instrument Used: 3mm curette Tissue Removed: subcutaneous tissue. Severity: Fat Layer Exposed Amount of bleeding with debridement: Mild Bleeding Controlled with: Pressure Patient tolerated procedure well, - - A wound culture was obtained today. Assessment/Plan Assessment: 1. Recurrent sacral pressure sore, Stage III. 2. Spina bifida. 3. History of vertebral rods placement. Plan: Begin Silver dressing changes daily to the sacral pressure sore. A wound culture was obtained today. A positive culture will necessitate antibiotic therapy. She has had multiple CT scans over the last year and a half with the latest one on 07/02/19. The CT Abdomen/Pelvis shows levoscoliosis with a spina bifida deformity of the lumbosacral region. Stabilization with orthopedic rods is seen throughout the visualized thoracolumbar region and sacrum. Screw fixation of both sacroiliac regions bilaterally. There is deformity of the bony pelvis. There are severe degenerative changes of the hips. There is dislocation of the right hip. There is concern that if the pressure sore progresses down to the bone, we may see exposed hardware. Hopefully that doesn't happen. The mother seems quite attentive to her care so will keep a close eye on the healing of this pressure sore. Encourage nutritional pickens pplementation with protein to help the healing process. Her last Prealbumin was 21.0 on 04/14/16. Followup one week. Office Visits / Consults: [id number] OV L4 New - -25 Modifier ICD-10 - L89.153, Q05.9, Z98.890 Multi Select Codes - Integumentary Integumentary CPT Codes: 81347 Sherlyn subq tissue 20 sq cm/< - ICD-10 - L89.153, Q05.9, Z98.890
== END 2019-09-04 23:59 ==
LOC: WC 09:41
PROVIDERS: PCP Nurse Practitioner Family; Referring Provider Surgery; Visit Provider Surgery
DX: L89.153 Pressure ulcer of sacral region, stage 3 (principal); Q05.7 Lumbar spina bifida without hydrocephalus; R60.0 Localized edema
CPT/HCPCS: 11042; 87070; 87075; 87077; 87186; 87205; 99213; G0463

== ENCOUNTER 2019-09-27 10:30 | Outpatient (RCR) | payer MEDICARE, MEDICAID, SELFPAY ==
[2019-09-05 01:01] VITALS: BP 124/90; PULSE 94; RESP 16; TEMP 36.6
[2019-09-06 12:04] VITALS: BP 130/86; PULSE 106; RESP 16; TEMP 36.1; BMI 30.3
--- NOTE | 2019-09-06 13:35 | PCM.WC.HP ---
(1) Pressure ulcer of sacral region, stage 3 Status: Acute Current Visit: Yes Code(s): L89.153 - Pressure ulcer of sacral region, stage 3 (2) Spina bifida Status: Chronic Current Visit: Yes Qualifiers: Code(s): Q05.9 - Spina bifida, unspecified History of Present Illness Date of Service: 09/06/19 Chief Complaint: Recurrent sacral pressure sore, Stage III. History of Wound: 44-year-old woman with a history of spina bifida returns today with a 1 week history of breakdown and recurrence of a previous sacral pressure. She denies any known precipitating factors but admits that she has occasionally had urine around the area. She was seen about a week ago by Dr. Batista and culture taken and grew Proteus. She has since been on Aquacel silver. She denies chills, fever or otherwise feeling of unwell. Mother reports compliance with dressing changes. History of spina bifida and is largely sedentary. Past Medical History Past Medical History: Chronic Problems (Last Updated 03/11/18 @ 14:[address] Cecil Butts, DO) History of back surgery (Chronic) had vertebral rods placed throughout thoracolumbar region and sacrum Edema of right lower extremity (Chronic) Spina bifida (Chronic) Decubitus ulcer of lower back, stage 3 (Chronic) midline Surgical History: cholecystectomy, - - vertebral rods. ileostomy Allergies/Adverse Reactions: Allergies amoxicillin [From Augmentin] Adverse Reaction (Verified 08/27/19 10:06) Diarrhea azithromycin [From Zithromax Z-Turner] Adverse Reaction (Verified 08/27/19 10:06) Diarrhea ciprofloxacin [From Cipro] Adverse Reaction (Verified 08/27/19 10:06) Pain in joints clavulanic acid [From Augmentin] Adverse Reaction (Verified 08/27/19 10:06) Diarrhea Home Medications: Ambulatory Orders Medication Instructions Recorded Multivitamins,Therapeutic 1 tablet PO QHS 04/24/13 [Multivitamin] Oxybutynin Chloride [Ditropan Xl] 15 mg PO QHS 04/24/13 Paroxetine [Paxil] 40 mg PO QHS 04/24/13 Bacillus Coagulans [Probiotic] 1 each PO QHS 03/11/18 Omeprazole [Prilosec] 20 mg PO QHS 10/06/18 Aspirin [Aspirin, Baby] 81 mg PO DAILY@0800 tab.chew 03/14/18 Metoprolol Tartrate [Lopressor 25 mg PO BID 04/11/18 (Beta Jackie)] MedroxyPROGESTERone [Depo-Provera] 150 mg IM .[id number] 03/19/19 Potassium Citrate [Urocit-K] 15 meq PO BID #60 tablet.er 03/23/19 Smz/Tmp Ds [Bactrim Ds] 1 tab PO BID #14 tab 03/23/19 Smz/Tmp Ds [Bactrim Ds] 1 tab PO BID #14 tab 03/30/19 - Family History Maternal No pertinent history Smoking Status: Never smoker Tobacco Use: Non-smoker Review of Systems Constitutional: Denies: Anorexia, Chills, Fever Eyes: Denies: Blurred vision, Pain, Redness HEENT: Denies: Difficulty Swallowing Cardiovascular: Denies: Chest Pain, Chest Pressure Respiratory: Denies: Cough, Hemoptysis Gastrointestinal: Denies: Abdominal Pain, Hematemesis, Vomiting Skin: Denies: Jaundice - Physical Exam Vital Signs Temp Pulse Resp BP 96.9 F L 106 H 16 130/86 H 09/06/19 12:04 09/06/19 12:04 09/06/19 12:04 09/06/19 12:04 General: Alert, Oriented x3, Cooperative, No apparent distress HEENT: Atraumatic, Normocephalic Oral: Moist Mucosa Neck: Supple Lungs: Normal air movement Abdomen: Non Tender, Obese Extremities: No cyanosis Wound Measurements and Assessment WC - Nurse 1 - General Ulcer Measurement Start: 09/06/19 12:04 Freq: Status: Active Protocol: Activity Type Activity Date Activity User E-Sign Co-Sign Detail Recorded Client Recorded Date Recorded By Document 09/06/19 12:04 [facility] [id number] 09/06/19 12:12 [facility] 09/06/19 12:04 Wound Center Nurse 1 [Ulcer Assessment] #5 Lumbar -Combined with other wound No -Current Size (cm) - Length 0.1 -Current Size (cm) - Width 0.5 -Current Size (cm) - Depth 0.3 -Total Square Cm 0.05 -Photo Taken No -Epithelialization None Present -Tunneling No -Undermining/Tunneling No -Circular Undermining No -Exudate Amt Small -Exudate Type Serous -Wound Margin Distinct, Outline Attached -Granulation Amt Large (67-100%) -Granulation Quality Red -Slough/Fibrin No -Necrosis Amt None Present (0 %) -Texture (Patience-wound Skin Appearance) Assessed, Scarring -Moisture (Patience-wound Skin Appearance Assessed ) -Color (Patience-wound Skin Appearance) Assessed -Temperature (Patience-wound Skin No Abnormality Appearance) (Pt Warm) -Tenderness on Palpation (Patience-wound No Skin Appearance) -Ulcer Cleansing Rinsed/ Irrigated with Saline -Foul Odor after Cleansing No -Anesthetic Used 5% Lidocaine Gel WC - Nurse 2 - General Ulcer CM Notes Start: 09/06/19 12:04 Freq: Status: Active Protocol: Activity Type Activity Date Activity User E-Sign Co-Sign Detail Recorded Client Recorded Date Recorded By Document 09/06/19 12:36 MW [id number] 09/06/19 12:44 MW 09/06/19 12:36 Wound Center Nurse 2 [Procedure/Treatment] -Time 12:37 -Correct Patient Yes -Correct Side, Site, Position Yes -Correct Procedure Yes -Procedure Performed Yes -Type of Procedure Debridement -Clinical Debridement Subcutaneous -Post Debridement Size (cm) - Length 0.3 -Post Debridement Size (cm) - Width 0.5 -Post Debridement Size (cm) - Depth 0.6 -Total Square Cm 0.15 -Wound/Ulcer Outcome Not Healed -Ulcer Cleansing Rinsed/ Irrigated with Saline -Foul Odor after Cleansing No -Bioengineered Tissue No -Bleeding Controlled with Pressure -Offloading No -Treatment Response Procedure Tolerated Well [See Physician Procedure note for Specifics] Pain Scale: 0-10 Numeric [Pain] -Is Patient Pain Free? Yes Neurological: Cranial nerves II-XII grossly intact Psych/Mental Status: Normal Affect Debridement Note Post-Debridement Measurements/Treatment WC - Nurse 2 - General Ulcer CM Notes Start: 09/06/19 12:04 Freq: Status: Active Protocol: Activity Type Activity Date Activity User E-Sign Co-Sign Detail Recorded Client Recorded Date Recorded By Document 09/06/19 12:36 MW [id number] 09/06/19 12:44 MW 09/06/19 12:36 Wound Center Nurse 2 #5 Lumbar -Time 12:37 -Correct Patient Yes -Correct Side, Site, Position Yes -Correct Procedure Yes -Procedure Performed Yes -Type of Procedure Debridement -Clinical Debridement Subcutaneous -Post Debridement Size (cm) - Length 0.3 -Post Debridement Size (cm) - Width 0.5 -Post Debridement Size (cm) - Depth 0.6 -Total Square Cm 0.15 -Wound/Ulcer Outcome Not Healed -Ulcer Cleansing Rinsed/ Irrigated with Saline -Foul Odor after Cleansing No -Bioengineered Tissue No -Bleeding Controlled with Pressure -Offloading No -Treatment Response Procedure Tolerated Well Pain Scale: 0-10 Numeric Is Patient Pain Free? Yes Wound debrided: Sacral Wound Grade/Stage: Stage III Type of Debridement: Excisional debridement Anesthesia Used: 4% Lidocaine Solution Depth: Down to and including healthy tissue, in the subcutaneous layer Percentage of wound debrided: 100 Instrument Used: - - 1mm Tissue Removed: Slough and devitalized tissue Severity: Fat Layer Exposed Amount of bleeding with debridement: Mild Bleeding Controlled with: Pressure Patient tolerated procedure well Assessment/Plan Active Problems (Last Updated 03/11/18 @ 14:[address] Cecil Butts, DO) Pressure ulcer of sacral region, stage 3 (Acute) Spina bifida (Chronic) Assessment: 1. Recurrent sacral pressure sore, Stage III. 2. Spina bifida. 3. History of vertebral rods placement. Plan: Recurrent sacral ulcer probably from breakdown due to urinary contamination. Debridement done as documented above, procedure was well-tolerated. Culture and sensitivity reviewed, switch to Keflex. No true allergy to penicillin, reports increased diarrhea while on penicillin. Continue Aquacel silver daily to twice daily. Strongly advised to avoid urinary contamination of the area. Continue offloading. Continue increased protein intake. Their questions were answered and they were advised to call with any further questions or concerns. Follow-up in a week. This note was generated with [employer] software. It may contain incorrect words, spelling, and punctuation that were not noted in checking the note before signing. Multi Select Codes - Visit Charges Office Visit/Consults: 97891 OV L3 Est - Integumentary Integumentary CPT Codes: 13344 Sherlyn subq tissue 20 sq cm/<
[2019-09-13 10:43] VITALS: BP 139/80; PULSE 91; RESP 20; TEMP 36.6; BMI 30.3
--- NOTE | 2019-09-13 11:08 | PCM.WC.PN ---
(1) Pressure ulcer of sacral region, stage 3 Status: Acute Current Visit: Yes Code(s): L89.153 - Pressure ulcer of sacral region, stage 3 (2) Spina bifida Status: Chronic Current Visit: Yes Qualifiers: Code(s): Q05.9 - Spina bifida, unspecified Type of Wound Date of Service: 09/13/19 Chief Complaint: Recurrent sacral pressure sore, Stage III. History of Wound: 44-year-old woman with a history of spina bifida returns today with a 1 week history of breakdown and recurrence of a previous sacral pressure. She denies any known precipitating factors but admits that she has occasionally had urine around the area. She was seen about a week ago by Dr. Batista and culture taken and grew Proteus. She has since been on Aquacel silver. She denies chills, fever or otherwise feeling of unwell. Mother reports compliance with dressing changes. History of spina bifida and is largely sedentary. Progress of Wound: No new concerns. Almost completed antibiotics. - Physical Exam Vital Signs Temp Pulse Resp BP 97.8 F 91 20 H 139/80 H 09/13/19 10:43 09/13/19 10:43 09/13/19 10:43 09/13/19 10:43 General: Alert, Oriented x3, Cooperative, No apparent distress HEENT: Atraumatic, Normocephalic Oral: Moist Mucosa Neck: Supple Lungs: Normal air movement Extremities: No cyanosis Skin: Ulcer/ Wound Wound Measurements and Assessment WC - Nurse 1 - General Ulcer Measurement Start: 09/06/19 12:04 Freq: Status: Active Protocol: Activity Type Activity Date Activity User E-Sign Co-Sign Detail Recorded Client Recorded Date Recorded By Document 09/13/19 10:43 PL [id number] 09/13/19 10:48 PL 09/13/19 10:43 Wound Center Nurse 1 [Ulcer Assessment] #5 Lumbar -Combined with other wound No -Current Size (cm) - Length 0.3 -Current Size (cm) - Width 0.4 -Current Size (cm) - Depth 0.5 -Total Square Cm 0.12 -Photo Taken No -Epithelialization None Present -Tunneling No -Undermining/Tunneling No -Exudate Amt Small -Exudate Type Serosanguineous -Granulation Amt Large (67-100%) -Granulation Quality [place] -Slough/Fibrin Yes -Necrosis Amt Small (1-33%) -Necrotic Tissue Type Adherent Slough -Ulcer Cleansing Rinsed/ Irrigated with Saline -Foul Odor after Cleansing No -Anesthetic Used 4% Lidocaine Solution - Nurse 2 - General Ulcer CM Notes Start: 09/06/19 12:04 Freq: Status: Active Protocol: Activity Type Activity Date Activity User E-Sign Co-Sign Detail Recorded Client Recorded Date Recorded By Document 09/13/19 11:01 MW [id number] 09/13/19 11:04 MW 09/13/19 11:01 Wound Center Nurse 2 [Procedure/Treatment] -Time 11:02 -Correct Patient Yes -Correct Side, Site, Position Yes -Correct Procedure Yes -Procedure Performed Yes -Type of Procedure Debridement -Clinical Debridement Subcutaneous -Post Debridement Size (cm) - Length 0.3 -Post Debridement Size (cm) - Width 0.6 -Post Debridement Size (cm) - Depth 0.6 -Total Square Cm 0.18 -Wound/Ulcer Outcome Not Healed -Ulcer Cleansing Rinsed/ Irrigated with Saline -Foul Odor after Cleansing No -Bioengineered Tissue No -Bleeding Controlled with Pressure -Offloading No -Treatment Response Procedure Tolerated Well [See Physician Procedure note for Specifics] Pain Scale: 0-10 Numeric [Pain] -Is Patient Pain Free? Yes Neurological: Cranial nerves II-XII grossly intact Psych/Mental Status: Normal Affect Debridement Note Post-Debridement Measurements/Treatment - Nurse 2 - General Ulcer CM Notes Start: 09/06/19 12:04 Freq: Status: Active Protocol: Activity Type Activity Date Activity User E-Sign Co-Sign Detail Recorded Client Recorded Date Recorded By Document 09/06/19 12:36 MW [id number] 09/06/19 12:44 MW Document 09/13/19 11:01 MW [id number] 09/13/19 11:04 MW 09/06/19 09/13/19 12:36 11:01 Wound Center Nurse 2 #5 Lumbar -Time 12:37 11:02 -Correct Patient Yes Yes -Correct Side, Site, Position Yes Yes -Correct Procedure Yes Yes -Procedure Performed Yes Yes -Type of Procedure Debridement Debridement -Clinical Debridement Subcutaneous Subcutaneous -Post Debridement Size (cm) - Length 0.3 0.3 -Post Debridement Size (cm) - Width 0.5 0.6 -Post Debridement Size (cm) - Depth 0.6 0.6 -Total Square Cm 0.15 0.18 -Wound/Ulcer Outcome Not Healed Not Healed -Ulcer Cleansing Rinsed/ Rinsed/ Irrigated with Irrigated with Saline Saline -Foul Odor after Cleansing No No -Bioengineered Tissue No No -Bleeding Controlled with Pressure Pressure -Offloading No No -Treatment Response Procedure Procedure Tolerated Well Tolerated Well Pain Scale: 0-10 Numeric Is Patient Pain Free? Yes Yes Wound debrided: Sacral Wound Grade/Stage: Stage III Type of Debridement: Excisional debridement Anesthesia Used: 4% Lidocaine Solution Depth: Down to and including healthy tissue, in the subcutaneous layer Percentage of wound debrided: 100 Instrument Used: - - 1mm Tissue Removed: Slough and devitalized tissue Severity: Fat Layer Exposed Amount of bleeding with debridement: Mild Bleeding Controlled with: Pressure Patient tolerated procedure well Assessment/Plan Active Problems (Last Updated 03/11/18 @ 14:[address] Cecil Butts, DO) Pressure ulcer of sacral region, stage 3 (Acute) Spina bifida (Chronic) Assessment: 1. Recurrent sacral pressure sore, Stage III. 2. Spina bifida. 3. History of vertebral rods placement. Plan: Debridement done as documented above. Procedure was well-tolerated. Very slight worsening noted, switch from Aquacel to Promogran daily. Complete antibiotics. Strongly advised to avoid urinary contamination of the area. Continue offloading. Continue increased protein intake. Their questions were answered and they were advised to call with any further questions or concerns. Follow-up in a week. This note was generated with [employer] software. It may contain incorrect words, spelling, and punctuation that were not noted in checking the note before signing. [id number]: [id number] Sherlyn subq tissue 20 sq cm/<
[2019-09-27 10:47] VITALS: BP 114/92; PULSE 95; RESP 18; TEMP 36.2; BMI 30.3
--- NOTE | 2019-09-27 11:06 | PCM.WC.PN ---
(1) Pressure ulcer of sacral region, stage 3 Status: Acute Current Visit: Yes Code(s): L89.153 - Pressure ulcer of sacral region, stage 3 (2) Spina bifida Status: Chronic Current Visit: Yes Qualifiers: Code(s): Q05.9 - Spina bifida, unspecified Type of Wound Date of Service: 09/27/19 Chief Complaint: Recurrent sacral pressure sore, Stage III. History of Wound: 44-year-old woman with a history of spina bifida returns today with a 1 week history of breakdown and recurrence of a previous sacral pressure. She denies any known precipitating factors but admits that she has occasionally had urine around the area. She was seen about a week ago by Dr. Batista and culture taken and grew Proteus. She has since been on Aquacel silver. She denies chills, fever or otherwise feeling of unwell. Mother reports compliance with dressing changes. History of spina bifida and is largely sedentary. Progress of Wound: Healed. No new concerns at this time. - Physical Exam Vital Signs Temp Pulse Resp BP 97.2 F L 95 18 114/92 H 09/27/19 10:47 09/27/19 10:47 09/27/19 10:47 09/27/19 10:47 General: Alert, Oriented x3, Cooperative, No apparent distress HEENT: Atraumatic, Normocephalic Oral: Moist Mucosa Neck: Supple Lungs: Normal air movement Abdomen: Non Tender, Obese Extremities: No cyanosis Wound Measurements and Assessment WC - Nurse 1 - General Ulcer Measurement Start: 09/06/19 12:04 Freq: Status: Active Protocol: Activity Type Activity Date Activity User E-Sign Co-Sign Detail Recorded Client Recorded Date Recorded By Document 09/27/19 10:47 RB [id number] 09/27/19 10:49 RB 09/27/19 10:47 Wound Center Nurse 1 [Ulcer Assessment] #5 Lumbar -Combined with other wound No -Current Size (cm) - Length 0.1 -Current Size (cm) - Width 0.1 -Current Size (cm) - Depth 0.1 -Total Square Cm 0.01 -Tunneling No -Undermining/Tunneling No -Circular Undermining No -Exudate Amt Small -Exudate Type Serosanguineous -Wound Margin Thickened & Rolled Under -Granulation Amt Large (67-100%) -Granulation Quality [place] -Slough/Fibrin Yes -Necrosis Amt Small (1-33%) -Necrotic Tissue Type Adherent Slough -Structure Exposed N/A -Texture (Patience-wound Skin Appearance) Assessed, Friable, Scarring -Moisture (Aptience-wound Skin Appearance Assessed ) -Color (Patience-wound Skin Appearance) Assessed -Temperature (Patience-wound Skin No Abnormality Appearance) (Pt Warm) -Tenderness on Palpation (Patience-wound No Skin Appearance) -Ulcer Cleansing Wound Cleanser -Foul Odor after Cleansing No -Anesthetic Used 4% Lidocaine Solution WC - Nurse 2 - General Ulcer CM Notes Start: 09/06/19 12:04 Freq: Status: Active Protocol: Activity Type Activity Date Activity User E-Sign Co-Sign Detail Recorded Client Recorded Date Recorded By Document 09/27/19 11:02 MW [id number] 09/27/19 11:04 MW 09/27/19 11:02 Wound Center Nurse 2 [Procedure/Treatment] -Time 11:03 -Correct Patient Yes -Correct Side, Site, Position Yes -Correct Procedure Yes -Procedure Performed No -Post Debridement Size (cm) - Length 0 -Post Debridement Size (cm) - Width 0 -Post Debridement Size (cm) - Depth 0 -Total Square Cm 0 -Wound/Ulcer Outcome Healed- Epithelialized [See Physician Procedure note for Specifics] Pain Scale: 0-10 Numeric [Pain] -Is Patient Pain Free? Yes Musculoskeletal: No Muscle Wasting Neurological: Cranial nerves II-XII grossly intact Psych/Mental Status: Normal Affect Debridement Note Post-Debridement Measurements/Treatment - Nurse 2 - General Ulcer CM Notes Start: 09/06/19 12:04 Freq: Status: Active Protocol: Activity Type Activity Date Activity User E-Sign Co-Sign Detail Recorded Client Recorded Date Recorded By Document 09/06/19 12:36 MW [id number] 09/06/19 12:44 MW Document 09/13/19 11:01 MW [id number] 09/13/19 11:04 MW Document 09/27/19 11:02 MW [id number] 09/27/19 11:04 MW 09/06/19 09/13/19 09/27/19 12:36 11:01 11:02 Wound Center Nurse 2 #5 Lumbar -Time 12:37 11:02 11:03 -Correct Patient Yes Yes Yes -Correct Side, Site, Position Yes Yes Yes -Correct Procedure Yes Yes Yes -Procedure Performed Yes Yes No -Type of Procedure Debridement Debridement -Clinical Debridement Subcutaneous Subcutaneous -Post Debridement Size (cm) - Length 0.3 0.3 0 -Post Debridement Size (cm) - Width 0.5 0.6 0 -Post Debridement Size (cm) - Depth 0.6 0.6 0 -Total Square Cm 0.15 0.18 0 -Wound/Ulcer Outcome Not Healed Not Healed Healed- Epithelialized -Ulcer Cleansing Rinsed/ Rinsed/ Irrigated with Irrigated with Saline Saline -Foul Odor after Cleansing No No -Bioengineered Tissue No No -Bleeding Controlled with Pressure Pressure -Offloading No No -Treatment Response Procedure Procedure Tolerated Well Tolerated Well Pain Scale: 0-10 Numeric Is Patient Pain Free? Yes Yes Yes No debridement was completed today Assessment/Plan Active Problems (Last Updated 03/11/18 @ 14:[address] Cecil Butts, DO) Pressure ulcer of sacral region, stage 3 (Acute) Spina bifida (Chronic) Assessment: 1. Recurrent sacral pressure sore, Stage III. 2. Spina bifida. 3. History of vertebral rods placement. Plan: No debridement completed today. Ulcer is healed. OptiForm over area to help with offloading. Advised that they always keep the area dry and avoid urinary contamination as well. Their questions were answered and they were advised to call with any further questions or concerns. Discharged from the wound center. This note was generated with [employer] dictation software. It may contain incorrect words, spelling, and punctuation that were not noted in checking the note before signing. Office Visits / Consults: 01722 OV L3 Est - E and M code level 3.
== END 2019-10-04 23:59 ==
LOC: WC 10:30
PROVIDERS: PCP Nurse Practitioner Family; Referring Provider Internal Medicine; Visit Provider Internal Medicine
DX: L89.153 Pressure ulcer of sacral region, stage 3 (principal); Q05.9 Spina bifida, unspecified; R60.0 Localized edema; Z79.3 Long term (current) use of hormonal contraceptives; Z79.82 Long term (current) use of aspirin; Z79.899 Other long term (current) drug therapy
CPT/HCPCS: 11042; 99213; G0463

== ENCOUNTER → 2020-09-04 12:51 | Outpatient (CLI) | payer MEDICARE, MEDICAID, SELFPAY ==
--- NOTE | 2020-09-04 13:28 | CT_ITS ---
STUDY: CT ABDOMEN AND PELVIS WITHOUT CONTRAST REASON FOR EXAM: Female, 45 years old. GROSS HEMATURIA/CALCULUS OF KIDNEY RADIATION DOSAGE (If Supplied By Facility): CTDIvol = ( 18.60 ) mGy, DLP = ( 778.18 ) mGycm TECHNIQUE: Transaxial images were obtained from the dome of the diaphragm to the symphysis pubis without oral contrast, and without intravenous contrast. Sagittal and coronal images were reconstructed. Individualized dose optimization techniques were used for this CT. COMPARISON: 07/02/2019. FINDINGS: The study is limited by the patient''s severe scoliosis and lack of IV contrast. DIRECTOR OF PREMIUM SEAT SALES shunt is partially included with no evidence of discontinuity. Visualized lung is clear. Unremarkable liver, spleen, pancreas, and adrenals on this unenhanced study. Stones in the right kidney measuring up to 0.8 cm. A 1.0 cm stone at the right UPJ causing mild right-sided hydronephrosis. No radiopaque urolithiasis on the left side. Status post cholecystectomy and likely appendectomy. Bowel loops nonobstructed. Large amount of retained stool in the cecum and ascending colon. No free air or free fluid. No adenopathy. No abdominal aortic aneurysm. Grossly unremarkable urinary bladder. No adnexal mass. Status post fusion of the thoracolumbar spine and sacroiliac joints. Fracture of distal right rhonda is noted, unchanged. CT/Abdomen/Pelvis without Cont IMPRESSION: A 1.0 cm stone at the right UPJ causing mild hydronephrosis. Additional smaller stones in the right kidney. No left-sided radiopaque urolithiasis. Status post fusion of the thoracolumbar spine and sacroiliac joints. Inferior part of the right rhonda is broken. Electronically Signed: Camden Howard MD at 3:25 EDT Tel , Service support ,
== END ==
PROVIDERS: PCP Nurse Practitioner Family; Referring Provider Nurse Practitioner Adult Health; Visit Provider Nurse Practitioner Adult Health
DX: N20.0 Calculus of kidney (principal); R31.0 Gross hematuria
CPT/HCPCS: 74176

== ENCOUNTER 2020-09-11 10:11 | Inpatient (IN) | payer MEDICARE, MEDICAID, SELFPAY ==
[2020-09-11] VITALS (9 sets, daily range): BP systolic 115–165; BP diastolic 67–96; PULSE 92–112; RESP 17–18; TEMP 36.6–37.1; O2SAT 95–98; BMI 33.6; BMI 35.0; BMI 34.9
--- NOTE | 2020-09-11 11:01 | ED.VIS.GI ---
History of Present Illness Chief Complaint: Complaint Informant: Patient - Abdominal Pain/Flank Pain Onset: Yesterday Context: Sudden Onset Timing: Continuous Quality: Aching Location: Left Flank Current Severity: Severe Maximum Severity: Severe Worsened by: Nothing Relieved by: Nothing - Nausea/Vomiting/Emesis GI Symptom: Nausea, Vomiting Onset: Yesterday - Diarrhea/Melena/Hematochezia GI Symptom: Negative for: Diarrhea, Melena, Hematochezia Associated Symptoms: Negative for: Hematuria Narrative: Patient has a history of spina bifida, paralyzed from the waist down, with a urostomy that she self caths through. 2 weeks ago it was foul-smelling and cloudy so mother took her in and she was placed on a short course of antibiotics that she finished over a week ago. About 1 week ago, she had a routine appointment with Dr. Hernandez, a CT was done to evaluate known renal stone, and it was seen to be in the ureter and she was scheduled to have surgery to remove it which has not happened yet. Yesterday she developed pain and a fever along with nausea and vomiting that has progressed today. She did not have flank pain prior to yesterday. She was advised to come to the ER for further evaluation, symptom control, and likely admission. - Past Medical History (1) Spina bifida Status: Chronic Past Medical History - Allergies and Home Meds Allergies/Adverse Reactions: Allergies amoxicillin [From Augmentin] Adverse Reaction (Verified 09/11/20 10:12) Diarrhea azithromycin [From Zithromax Z-Turner] Adverse Reaction (Verified 09/11/20 10:12) Diarrhea ciprofloxacin [From Cipro] Adverse Reaction (Verified 09/11/20 10:12) Pain in joints clavulanic acid [From Augmentin] Adverse Reaction (Verified 09/11/20 10:12) Diarrhea Primary Care Physician: Kelsey Toure NP, GAS TRANSFER OPERATOR-C [Primary Care Provider] - Surgical History: cholecystectomy, - - vertebral rods. ileostomy Lives: With Family Smoking Status: Never smoker - Family History Maternal Family History: Reports: No pertinent history Review of Systems General: Reports: Chills, Fever, Malaise. Denies: Sweats Eyes: Denies: Visual changes - bilaterally, Diplopia ENT: Denies: Rhinorrhea, Sore throat Cardiovascular: Denies: Chest pain, Palpitations Respiratory: Denies: Dyspnea, Cough, Dyspnea on exertion Gastrointestinal: Reports: Abdominal pain, Nausea, Vomiting. Denies: Diarrhea, Melena, Hematochezia Genitourinary: Denies: Dysuria, Hematuria, Frequency Musculoskeletal: Reports: Back pain. Denies: Swelling, Extremity Pain Skin: Denies: Rash, Wounds Neurological: Reports: Weakness - Paraplegic, Numbness - Waist down. Denies: Headache Physical Exam Vital Signs/Narrative: Vital Signs Temp Pulse Resp BP Pulse Ox 09/11/20 10:12 98.1 F 106 H 18 162/95 H 97 Inital Vital Signs reviewed: Yes General: Well nourished, Well developed, Acute Distress - Pain, no other distress Head: Normocephalic, Atraumatic Eyes: Perrl, EOMI ENT: Moist mucous membranes, No rhinorrhea Neck: Supple, Nontender Cardiovascular: Regular rate, Regular rhythm, No murmurs, Tachycardia - Mild Respiratory: No distress, CTA bilaterally, Chest nontender Abdomen: Soft, Nontender, Nondistended, Normal bowel sounds, - - Periumbilical urostomy site benign appearing without discharge or signs of cellulitis Back: Nontender, Normal Inspection. Negative for: CVA tenderness Extremities: Nontender, No edema Skin: Normal color, No rash, No Trauma Neurological: Alert, Oriented x3, Cranial nerves II-XII grossly intact, - - Paraplegia, insensate from the waist down. Good distal pulses. Psychological: Normal affect, Normal Mood Diagnostic/Tx/Re-eval Laboratory Tests 09/11/20 09/11/20 09/11/20 Range/Units 11:48 11:48 11:48 WBC (4.4-11.0) K/mm3 RBC (4.2-5.4) M/mm3 Hgb (12.0-15.0) g/dL Hct (37-47) % MCV (81-99) fL MCH (27.0-32.0) pg MCHC (32-36) g/dL RDW Std Deviation (35.1-43.9) fl RDW Coeff of Melodie (11.6-14.6) % Plt Count (150-450) K/mm3 MPV (6.2-12.0) fl Immature Gran % (Auto) (0.0-0.9) % Neut % (Auto) (47-70) % Lymph % (Auto) (19-41) % [place] % (Auto) (0-10) % Eos % (Auto) (0-5) % Baso % (Auto) (0-1) % Absolute Neuts (auto) (2.0-7.7) X10^3/uL Absolute Lymphs (auto) (0.83-4.51) X10^3/uL Nucleated RBC % (0-5) % Sodium 138 Potassium 4.0 Chloride 104 Carbon Dioxide 31.0 Anion Gap 3 L BUN 18 Creatinine 0.61 Estim Creat Clear Calc 125.09 Est GFR (MDRD) Af Amer 135 Est GFR (MDRD) Non-Af 112 BUN/Creatinine Ratio 29.3 H Glucose 92 Lactic Acid 1.0 Calcium 9.2 Urine Color Straw (Yellow) Urine Clarity Sl. Cloudy (Clear) Urine pH 6.5 (5.0 - 8.0) Ur Specific [place] 1.015 (1.002-1.030) Urine Protein 30 H (Negative) mg/dl Urine Glucose (UA) Normal (Normal) mg/dl Urine Ketones Negative (Negative) mg/dl Urine Occult Blood 25 H (Negative) /ul Urine Nitrite Negative (Negative) Urine Bilirubin Negative (Negative) mg/dL Urine Urobilinogen Normal (Normal) mg/dl Ur Leukocyte Esterase 500 H (Negative) /ul Urine RBC 0 SEEN (0-5) /hpf Urine WBC 10-25 SEEN (0-5) /hpf Ur Squamous Epith Cells 0-5 SEEN (5-10) /hpf Urine Bacteria 2+ (None Seen) /hpf Urine Mucus 0 SEEN (<or=2+) /hpf 09/11/20 09/11/20 09/11/20 Range/Units 11:25 11:10 11:10 WBC 13.9 H (4.4-11.0) K/mm3 RBC 4.35 (4.2-5.4) M/mm3 Hgb 12.7 (12.0-15.0) g/dL Hct 40.4 (37-47) % MCV 92.9 (81-99) fL MCH 29.2 (27.0-32.0) pg MCHC 31.4 L (32-36) g/dL RDW Std Deviation 49.1 H (35.1-43.9) fl RDW Coeff of Melodie 14.4 (11.6-14.6) % Plt Count 401 (150-450) K/mm3 MPV 9.5 (6.2-12.0) fl Immature Gran % (Auto) 0.400 (0.0-0.9) % Neut % (Auto) 72.6 H (47-70) % Lymph % (Auto) 18.3 L (19-41) % [place] % (Auto) 5.8 (0-10) % Eos % (Auto) 2.5 (0-5) % Baso % (Auto) 0.4 (0-1) % Absolute Neuts (auto) 10.1 H (2.0-7.7) X10^3/uL Absolute Lymphs (auto) 2.54 (0.83-4.51) X10^3/uL Nucleated RBC % 0 (0-5) % Sodium Cancelled Potassium Cancelled Chloride Cancelled Carbon Dioxide Cancelled Anion Gap Cancelled BUN Cancelled Creatinine Cancelled Estim Creat Clear Calc Cancelled Est GFR (MDRD) Af Amer Cancelled Est GFR (MDRD) Non-Af Cancelled BUN/Creatinine Ratio Cancelled Glucose Cancelled Lactic Acid Cancelled Calcium Cancelled Urine Color (Yellow) Urine Clarity (Clear) Urine pH (5.0 - 8.0) Ur Specific [place] (1.002-1.030) Urine Protein (Negative) mg/dl Urine Glucose (UA) (Normal) mg/dl Urine Ketones (Negative) mg/dl Urine Occult Blood (Negative) /ul Urine Nitrite (Negative) Urine Bilirubin (Negative) mg/dL Urine Urobilinogen (Normal) mg/dl Ur Leukocyte Esterase (Negative) /ul Urine RBC (0-5) /hpf Urine WBC (0-5) /hpf Ur Squamous Epith Cells (5-10) /hpf Urine Bacteria (None Seen) /hpf Urine Mucus (<or=2+) /hpf - Medical Decision Making Patient CT from 1 week ago was reviewed and shows a 1 cm left UPJ stone with associated hydronephrosis. Her urine shows signs of infection at this time consistent with the symptoms she was having, and she has a leukocytosis. Blood cultures were obtained, her lactate is within normal limits, hemodynamically stable, Rocephin started and plan is for admission. Discussed with urology, he will consult, agrees with antibiotics, hospitalist to admit. ED Disposition - Plan for ED Patient: Disposition: Acute Care Hospital [facility] Diagnosis: Acute upper urinary tract infection, Ureterolithiasis, Renal colic on left side, Sepsis due to urinary tract infection Referrals: Kelsey Toure GAS TRANSFER OPERATOR, GAS TRANSFER OPERATOR-C [Primary Care Provider] -
[2020-09-11 11:23] LABS: Absolute Lymphocyte Count 2.54 X10^3/uL (0.83-4.51); Absolute Neutrophil Count 10.1 X10^3/uL (2.0-7.7); Basophil# 0.05 X10^3/uL; Basophil% 0.4 % (0-1); Eosinophil# 0.34 X10^3/uL; Eosinophils% 2.5 % (0-5); Hematocrit 40.4 % (37-47); Hemoglobin 12.7 g/dL (12.0-15.0); Lymphocyte # 2.54 X10^3/ul (4.0); Lymphocyte % 18.3 % (19-41); Mean Corp Hgb Conc 31.4 g/dL (32-36); Mean Corpuscular Hgb 29.2 pg (27.0-32.0); Mean Corpuscular Volume 92.9 fL (81-99); Mean Platelet Vol. 9.5 fl (6.2-12.0); Monocyte% 5.8 % (0-10); NRBC Flagged by Analyzer 0 % (0-5); Neutrophil # 10.07 X10^3/uL (2.7-7.7); Neutrophil % 72.6 % (47-70); Platelet Count 401 K/mm3 (150-450); RBC Distribution Width CV 14.4 % (11.6-14.6); RBC Distribution Width SD 49.1 fl (35.1-43.9); Red Blood Count 4.35 M/mm3 (4.2-5.4); White Blood Count 13.9 K/mm3 (4.4-11.0)
[2020-09-11] MEDS: Ketorolac 15 MG/ML Vial IV (11:31)
[2020-09-11] MEDS: 0.9% Normal Saline 1,000 ML 150 ML IV ×2 (11:31→22:04)
[2020-09-11] MEDS: Ondansetron 4 MG/2 ML Vial IV (11:31)
[2020-09-11] MEDS: Morphine 4 MG/ML Syringe IV (11:32)
[2020-09-11 12:04] LABS: Mucous, Urine 0 SEEN /hpf (<or=2+); Red Blood Cells-Urine 0 SEEN /hpf (0-5)
[2020-09-11 12:09] LABS: Color, Urine Straw (Yellow); Glucose, Dipstick Normal (Normal); Ketone-Dipstick Negative (Negative); Leukocyte Esterase-Dipstick 500 /ul (Negative); Nitrite-Dipstick Negative (Negative); Occult Blood-Urine 25 /ul (Negative); Protein-Dipstick 30 mg/dl (Negative); Specific Gravity, Urine 1.015 (1.002-1.030); Urine Bilirubin Dipstick Negative (Negative); Urine Clarity Sl. Cloudy (Clear); Urine Urobilinogen Normal (Normal); Urine pH 6.5 (5.0 - 8.0)
[2020-09-11 12:22] LABS: White Blood Cells 10-25 SEEN /hpf (0-5)
[2020-09-11 12:23] LABS: Bacteria 2+ /hpf (None Seen); Squamous Epithelial Cells - UA 0-5 SEEN /hpf (5-10)
[2020-09-11 12:25] LABS: Anion Gap 3 (5-15); BUN 18 mg/dL (7-18); BUN/Creat Ratio 29.3 RATIO (10-20); Calcium,Total 9.2 mg/dL (8.5-10.1); Chloride 104 mmol/L (98-107); Creatinine, Serum 0.61 mg/dL (0.55-1.02); EST Glomerular Filtration Rate 112 mL/min (>60); Est Glom Filt Rate - Afr Amer 135 mL/min (>60); Estimated Creatinine Clearance 125.09 ml/min; Glucose 92 mg/dL (74-106); Sodium Level 138 mmol/L (136-145)
[2020-09-11] MEDS: HYDROmorphone 1 MG/ML Syringe IV (13:05)
[2020-09-11] MEDS: Ceftriaxone 1 GM/50 ML BAG IV (13:06)
--- NOTE | 2020-09-11 15:03 | HP.PCM_ITS ---
History of Present Illness Date of Admission: 09/11/20 Chief Complaint: fever, chills The patient is a 45 year old F with an extensive past medical history as outlined which includes a history of spina bifida with paralysis from the waist down with a urostomy that she self caths through. Patient was admitted through the ED on 09/21/2020 with a complaint of fever and chills. About 2 weeks ago, she noticed that her urine was foul-smelling and cloudy so she was taken to her PCP and she was placed on a course of antibiotics that she finished about a week ago. She followed up with her urologist for routine appointment about a week ago and a CT was done to evaluate her known kidney stone. Kidney stone was subsequently seen to be in the ureter and she was scheduled to have surgery to remove the stone in about a week. However she had a fever and chills about 1 day prior to admission, and had assisted nausea and vomiting. She denied any flank pain. Her mother called her urologist office on the day of admission and she was counseled to bring her into the ED for admission. D, vitals show temperature of 98.1 Fahrenheit with blood pressure of 165/95, pulse rate of 106 and respiratory rate of 18. She was saturating at 97% on 2 L of oxygen. Chemistry essentially unremarkable and creatinine was 0.69. CBC showed WBC of 13.9 and hemoglobin was 12.7. Platelets were 401. Urinalysis showed 2+ bacteria and 10-[address] of the abdomen and pelvis dated 09/04/2020 showed a 1 cm stone at the right ureteropelvic junction causing mild hydronephrosis with additional smaller stones in the right kidney. She has been admitted to manage for sepsis due to infected right ureteric stone. [] Past Medical History Past Medical History (Chronic Problems): Chronic Problems (Last Reviewed 09/11/20 @ 17:[address] Enzo Hernandez MD) History of back surgery (Chronic) had vertebral rods placed throughout thoracolumbar region and sacrum Edema of right lower extremity (Chronic) Spina bifida (Chronic) Decubitus ulcer of lower back, stage 3 (Chronic) midline Medical History: Medical History (Last Reviewed 09/11/20 @ 17:[address] Enzo Hernandez MD) Acquired scoliosis M41.9 Spina bifida Q05.9 Allergies amoxicillin [From Augmentin] Adverse Reaction (Verified 09/11/20 10:12) Diarrhea azithromycin [From Zithromax Z-Turner] Adverse Reaction (Verified 09/11/20 10:12) Diarrhea ciprofloxacin [From Cipro] Adverse Reaction (Verified 09/11/20 10:12) Pain in joints clavulanic acid [From Augmentin] Adverse Reaction (Verified 09/11/20 10:12) Diarrhea Home Medications: Ambulatory Orders Medication Instructions Recorded Multivitamins,Therapeutic 1 tablet PO QHS 04/24/13 [Multivitamin] Omeprazole [Prilosec] 20 mg PO QHS 03/11/18 Aspirin [Aspirin, Baby] 81 mg PO DAILY@0800 tab.chew 03/14/18 MedroxyPROGESTERone [Depo-Provera] 150 mg IM .[id number] 03/19/19 Potassium Citrate [Urocit-K] 15 meq PO BID #60 tablet.er 03/23/19 Bacillus Coagulans [Probiotic] 1 each PO QHS 09/11/20 Oxybutynin Chloride [Oxybutynin 15 mg PO QHS 09/11/20 Chloride ER] Paroxetine HCl [Paxil] 40 mg PO QHS 09/11/20 Surgical History: Surgical History (Last Reviewed 09/11/20 @ 17:[address] Enzo Hernandez MD) Hx of cholecystectomy Z90.49 Surgical History: cholecystectomy, - - vertebral rods. 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 Denies: Anorexia, Fatigue Eyes: Denies: Blurred vision HEENT: Denies: Head Aches, Sinus Congestion, Sinus Drainage Cardiovascular: Denies: Chest Pain, Palpitations Respiratory: Denies: Cough, Shortness of Breath, Shortness of breath at rest, Shortness of breath upon exertion, Sputum production Gastrointestinal: Reports: Nausea, Vomiting. Denies: Abdominal Pain Genitourinary: Denies: Dysuria Musculoskeletal: Denies: Joint Pain, Joint Tenderness Skin: Denies: Rash, Wounds Neurological: Denies: Numbness, Tingling, Focal weakness Psychiatric: Denies: Anxiety, Depression, Homicidal Ideations, Suicidal Ideations Hematologic/ Lymphatic: Denies: Easy Bruising, Easy Bleeding VTE Information - Inpt Only VTE Present on Admission: No VTE Pharm Prophylaxis ordered?: Yes Patient Problems: Active and Suspected Problems (Last Reviewed 09/11/20 @ 17:[address] Enzo Hernandez MD) Acute upper urinary tract infection (Acute) Ureterolithiasis (Acute) Renal colic on left side (Acute) Sepsis due to urinary tract infection (Acute) - Physical Exam Vitals/I&O's: Vital Signs Temp Pulse Resp BP Pulse Ox 98.3 F 98 18 120/75 95 09/11/20 14:31 09/11/20 14:31 09/11/20 14:31 09/11/20 14:31 09/11/20 14:31 Oxygen Flow Rate (L/min) 2 Oxygen Delivery Method Nasal Cannula Weight: 155 lb 10.342 oz Body Mass Index (BMI) 34.9 General: Alert, Oriented x3, Cooperative HEENT: Atraumatic, PERRLA, EOMI, Normocephalic Oral: Dry Mucosa Neck: Supple, No JVD, Negative Carotid Bruits Lungs: Clear to auscultation, Normal air movement Cardiovascular: Regular rate, Regular Rhythm, Normal S1, Normal S2, No murmurs Abdomen: Bowel Sounds Present, Soft, Non Tender, Non-Distended, No Hepato- splenomegaly, - - has suprapubic urostomy Extremities: No clubbing, No cyanosis, No edema, Capillary Refill Less than 3 Seconds Skin: No rashes, No breakdown Musculoskeletal: No Tenderness to Palpation of Joints or Extremities Lymphatic: No Cervical, Supraclavicular, or Inguinal Adenopathy Neurological: Cranial nerves II-XII grossly intact, - - has bilateral LE paralysis due to spina bifida Psych/Mental Status: Normal Affect, Appropriate, Alert and oriented to time, place, person, mood and affect Microbiology Past 72 Hours 09/11/20 11:56 Mucosa - Nose SARS-CoV-2 Antigen (Rapid) - Final Laboratory Results 09/11/20 11:10: WBC 13.9 H, RBC 4.35, Hgb 12.7, Hct 40.4, MCV 92.9, MCH 29.2, MCHC 31.4 L, RDW Std Deviation 49.1 H, RDW Coeff of Melodie 14.4, Plt Count 401, MPV 9.5, Immature Gran % (Auto) 0.400, Neut % (Auto) 72.6 H, Lymph % (Auto) 18.3 L, [place] % (Auto) 5.8, Eos % (Auto) 2.5, Baso % (Auto) 0.4, Absolute Neuts (auto) 10.1 H, Absolute Lymphs (auto) 2.54, Nucleated RBC % 0 09/11/20 11:10: Sodium Cancelled, Potassium Cancelled, Chloride Cancelled, Carbon Dioxide Cancelled, Anion Gap Cancelled, BUN Cancelled, Creatinine Cancelled, Estim Creat Clear Calc Cancelled, Est GFR (MDRD) Af Amer Cancelled, Est GFR (MDRD) Non-Af Cancelled, BUN/Creatinine Ratio Cancelled, Glucose Cancelled, Calcium Cancelled 09/11/20 11:25: Lactic Acid Cancelled 09/11/20 11:48: Urine Color Straw, Urine Clarity Sl. Cloudy, Urine pH 6.5, Ur Specific [place] 1.015, Urine Protein 30 H, Urine Glucose (UA) Normal, Urine Ketones Negative, Urine Occult Blood 25 H, Urine Nitrite Negative, Urine Bilirubin Negative, Urine Urobilinogen Normal, Ur Leukocyte Esterase 500 H, Urine RBC 0 SEEN, Urine WBC 10-25 SEEN, Ur Squamous Epith Cells 0-5 SEEN, Urine Bacteria 2+, Urine Mucus 0 SEEN 09/11/20 11:48: Lactic Acid 1.0 09/11/20 11:48: Sodium 138, Potassium 4.0, Chloride 104, Carbon Dioxide 31.0, Anion Gap 3 L, BUN 18, Creatinine 0.61, Estim Creat Clear Calc 125.09, Est GFR (MDRD) Af Amer 135, Est GFR (MDRD) Non-Af 112, BUN/Creatinine Ratio 29.3 H, Glucose 92, Calcium 9.2 Current Medications Sodium Chloride () 1,000 mls @ 150 mls/hr IV .[id number] [facility] Last Admin: 09/11/20 11:31 Dose: 150 mls/hr Documented by: Sodium Chloride () 500 mls @ 15 mls/hr IV PRN PRN PRN Reason: Blood Transfusion Sodium Chloride () 250 mls @ 15 mls/hr IV .[id number] PRN PRN Reason: Saline Flush Sodium Chloride () 250 mls @ 15 mls/hr IV .[id number] PRN PRN Reason: Additional IVPB Infusion Sodium Chloride (0.9% Saline Lock 10 Ml Syringe) 10 - 40 ml IV UD PRN PRN Reason: SALINE FLUSH Assessment/Plan All Active Problems (Last Reviewed 09/11/20 @ 17:[address] Enzo Hernandez MD) Acute upper urinary tract infection (Acute) Ureterolithiasis (Acute) Renal colic on left side (Acute) Sepsis due to urinary tract infection (Acute) Pressure ulcer of sacral region, stage 3 (Acute) Wound, open, foot (Resolved) Acute respiratory failure with hypoxia (Acute) Sepsis (Acute) Gram-negative pneumonia (Acute) Decubitus ulcer of right buttock, stage 1 (Acute) 45-year-old female admitted with a complaint of fever and chills and has been admitted to manage for UTI and infected ureteric stone. #sepsis due to Acute complicated UTI with infected right ureteric stone * admit to PCU * hydrate with IVF NS @ 150cc/hr * IV cefepime 2mg every 8 hours * blood and urine cultures obtained * urology consulted. * PT/OT consulted * #UTI: As above. #Spina bifida with acquired scoliosis: Stable. Consult PT OT. #History of neurogenic bladder: Due to spina bifida. Has urostomy which she self caths daily. DVT prophylaxis: lovenox code status; full code * Patient and her mother counseled extensively about different types of CODE STATUS including full code, DNR CCA and DNR CCA. Patient elects to be full code. * Total ofih-ad-zlss time 16 minutes. Inpatient E&M: 88154 Init Hosp L3 Procedures: 05674 Advncd Care Plan 30 Min
--- NOTE | 2020-09-11 15:30 | NURSING ---
Pt and pt's mother straight cath'd pt for 100mls of urine. Charted in I&Os.
[2020-09-11 16:17] LABS: Lactic Acid 0.7 mmol/L (0.4-1.9)
--- NOTE | 2020-09-11 17:14 | PCM.CONS.U ---
Problem List (1) Acute upper urinary tract infection Status: Acute Reason for Consult Date of Consultation: 09/11/20 Reason for Consultation: acute pyelo Right with stone History of Present Illness: The patient is a 45 year old female admitted obstruction on right with pyelonephritis Past Medical History Past Medical History (Chronic Problems): Chronic Problems (Last Updated 03/11/18 @ 14:[address] Cecil Butts DO) History of back surgery (Chronic) had vertebral rods placed throughout thoracolumbar region and sacrum Edema of right lower extremity (Chronic) Spina bifida (Chronic) Decubitus ulcer of lower back, stage 3 (Chronic) midline Medical History: Medical History (Last Reviewed 09/11/20 @ 17:[address] Enzo Hernandez MD) Acquired scoliosis M41.9 Spina bifida Q05.9 Allergies amoxicillin [From Augmentin] Adverse Reaction (Verified 09/11/20 10:12) Diarrhea azithromycin [From Zithromax Z-Turner] Adverse Reaction (Verified 09/11/20 10:12) Diarrhea ciprofloxacin [From Cipro] Adverse Reaction (Verified 09/11/20 10:12) Pain in joints clavulanic acid [From Augmentin] Adverse Reaction (Verified 09/11/20 10:12) Diarrhea Home Medications: Ambulatory Orders Medication Instructions Recorded Multivitamins,Therapeutic 1 tablet PO QHS 04/24/13 [Multivitamin] Omeprazole [Prilosec] 20 mg PO QHS 03/11/18 Aspirin [Aspirin, Baby] 81 mg PO DAILY@0800 tab.chew 03/14/18 MedroxyPROGESTERone [Depo-Provera] 150 mg IM .[id number] 03/19/19 Potassium Citrate [Urocit-K] 15 meq PO BID #60 tablet.er 03/23/19 Bacillus Coagulans [Probiotic] 1 each PO QHS 09/11/20 Oxybutynin Chloride [Oxybutynin 15 mg PO QHS 09/11/20 Chloride ER] Paroxetine HCl [Paxil] 40 mg PO QHS 09/11/20 Surgical History: Surgical History (Last Reviewed 09/11/20 @ 17:[address] Enzo Hernandez MD) Hx of cholecystectomy Z90.49 Surgical History: cholecystectomy, - - vertebral rods. ileostomy Psychiatric History: No pertinent psych hx [employer] History: No pertinent [employer] history Lives: With Family Smoking Status: Never smoker - *Family History Maternal History Items: No pertinent history Review of Systems Constitutional: Reports: Chills. Denies: Fever, Weight Change HEENT: Denies: Head Aches, Sinus Congestion, Sinus Drainage Cardiovascular: Denies: Chest Pain, Palpitations Respiratory: Denies: Cough, Shortness of breath at rest, Sputum production Gastrointestinal: Reports: Nausea, Vomiting. Denies: Abdominal Pain Genitourinary: Denies: Dysuria Musculoskeletal: Denies: Joint Pain, Joint Tenderness Skin: Denies: Rash, Wounds Neurological: Denies: Numbness, Tingling, Focal weakness Psychiatric: Denies: Anxiety, Depression, Homicidal Ideations, Suicidal Ideations Hematologic/ Lymphatic: Denies: Easy Bruising, Easy Bleeding Physical Exam - Physical Exam Vital Signs Temp 98.3 F 09/11/20 14:31 Pulse 92 09/11/20 15:19 Resp 18 09/11/20 14:31 BP 120/75 09/11/20 14:31 Pulse Ox 95 09/11/20 14:31 Intake & Output 09/09/20 09/10/20 09/11/20 23:59 23:59 23:59 Intake Total 50 / 50 Balance 50 / 50 Weight: 70.6 kg Intake: Intake, IV Amount 50 / 50 Rocephin 1 gm In 50 ml @ 100 50 / 50 mls/hr IV X1 ONE Rx#:[id number] General: Alert, No apparent distress Oral: Moist Mucosa Neck: Supple Lungs: Normal air movement Abdomen: Soft, Obese Microbiology Past 72 Hours 09/11/20 11:56 SARS-CoV-2 Antigen (Rapid) - Final Mucosa - Nose Laboratory Tests Past 24 Hrs 09/11/20 09/11/20 09/11/20 11:10 11:10 11:25 WBC 13.9 H RBC 4.35 Hgb 12.7 Hct 40.4 MCV 92.9 MCH 29.2 MCHC 31.4 L RDW Std Deviation 49.1 H RDW Coeff of Melodie 14.4 Plt Count 401 MPV 9.5 Immature Gran % (Auto) 0.400 Neut % (Auto) 72.6 H Lymph % (Auto) 18.3 L [place] % (Auto) 5.8 Eos % (Auto) 2.5 Baso % (Auto) 0.4 Absolute Neuts (auto) 10.1 H Absolute Lymphs (auto) 2.54 Nucleated RBC % 0 Sodium Cancelled Potassium Cancelled Chloride Cancelled Carbon Dioxide Cancelled Anion Gap Cancelled BUN Cancelled Creatinine Cancelled Estim Creat Clear Calc Cancelled Est GFR (MDRD) Af Amer Cancelled Est GFR (MDRD) Non-Af Cancelled BUN/Creatinine Ratio Cancelled Glucose Cancelled Lactic Acid Cancelled Calcium Cancelled Urine Color Urine Clarity Urine pH Ur Specific [place] Urine Protein Urine Glucose (UA) Urine Ketones Urine Occult Blood Urine Nitrite Urine Bilirubin Urine Urobilinogen Ur Leukocyte Esterase Urine RBC Urine WBC Ur Squamous Epith Cells Urine Bacteria Urine Mucus 09/11/20 09/11/20 09/11/20 11:48 11:48 11:48 WBC RBC Hgb Hct MCV MCH MCHC RDW Std Deviation RDW Coeff of Melodie Plt Count MPV Immature Gran % (Auto) Neut % (Auto) Lymph % (Auto) [place] % (Auto) Eos % (Auto) Baso % (Auto) Absolute Neuts (auto) Absolute Lymphs (auto) Nucleated RBC % Sodium 138 Potassium 4.0 Chloride 104 Carbon Dioxide 31.0 Anion Gap 3 L BUN 18 Creatinine 0.61 Estim Creat Clear Calc 125.09 Est GFR (MDRD) Af Amer 135 Est GFR (MDRD) Non-Af 112 BUN/Creatinine Ratio 29.3 H Glucose 92 Lactic Acid 1.0 Calcium 9.2 Urine Color Straw Urine Clarity Sl. Cloudy Urine pH 6.5 Ur Specific [place] 1.015 Urine Protein 30 H Urine Glucose (UA) Normal Urine Ketones Negative Urine Occult Blood 25 H Urine Nitrite Negative Urine Bilirubin Negative Urine Urobilinogen Normal Ur Leukocyte Esterase 500 H Urine RBC 0 SEEN Urine WBC 10-25 SEEN Ur Squamous Epith Cells 0-5 SEEN Urine Bacteria 2+ Urine Mucus 0 SEEN 09/11/20 15:44 WBC RBC Hgb Hct MCV MCH MCHC RDW Std Deviation RDW Coeff of Melodie Plt Count MPV Immature Gran % (Auto) Neut % (Auto) Lymph % (Auto) [place] % (Auto) Eos % (Auto) Baso % (Auto) Absolute Neuts (auto) Absolute Lymphs (auto) Nucleated RBC % Sodium Potassium Chloride Carbon Dioxide Anion Gap BUN Creatinine Estim Creat Clear Calc Est GFR (MDRD) Af Amer Est GFR (MDRD) Non-Af BUN/Creatinine Ratio Glucose Lactic Acid 0.7 Calcium Urine Color Urine Clarity Urine pH Ur Specific [place] Urine Protein Urine Glucose (UA) Urine Ketones Urine Occult Blood Urine Nitrite Urine Bilirubin Urine Urobilinogen Ur Leukocyte Esterase Urine RBC Urine WBC Ur Squamous Epith Cells Urine Bacteria Urine Mucus Assessment/Plan All Active Problems (Last Updated 03/11/18 @ 14:[address] Cecil Butts, DO) Acute upper urinary tract infection (Acute) Ureterolithiasis (Acute) Renal colic on left side (Acute) Sepsis due to urinary tract infection (Acute) Pressure ulcer of sacral region, stage 3 (Acute) Wound, open, foot (Resolved) Acute respiratory failure with hypoxia (Acute) Sepsis (Acute) Gram-negative pneumonia (Acute) Decubitus ulcer of right buttock, stage 1 (Acute) npo at midnight add on for tomorrow for cysto Right stent placement in OR
[2020-09-11] MEDS: Tolterodine Tartrate 4 MG CAP.SA PO (20:15)
[2020-09-11] MEDS: Multivitamins,Therapeutic Tablet 1 TABLET PO (21:10)
[2020-09-11] MEDS: Pantoprazole Sodium 20 MG Tablet PO (21:10)
[2020-09-11] MEDS: Paroxetine 20 MG Tablet 40 MG PO (21:11)
[2020-09-11 22:25] LABS: Internal QC Validated? YES +Cl - CLEAR BKGD; Pregnancy, Urine Negative Negative
[2020-09-12] VITALS (18 sets, daily range): BP systolic 115–136; BP diastolic 67–97; PULSE 85–107; RESP 16–20; TEMP 36.4–37.4; O2SAT 90–100; BMI 35.0
[2020-09-12] MEDS: 0.9% Normal Saline 1,000 ML 150 ML IV ×3 (05:20→22:05)
--- NOTE | 2020-09-12 06:00 | EKG12_ITS ---
Test Reason : AM EKG Blood Pressure : / mmHG Vent. Rate : 108 BPM Atrial Rate : 108 BPM P-R Int : 116 ms QRS Dur : 066 ms QT Int : 322 ms P-R-T Axes : 029 053 055 degrees QTc Int : 431 ms Sinus tachycardia Otherwise normal ECG When compared with ECG of 13-MAR-2018 05:23, No significant change was found Confirmed by CARL SAMANO, JAY ([id number]), fan mail editor ANNABELLE ELMORE ([id number]) on 09/17/2020 1:11:17 PM Referred By: DR MCCAIN Confirmed By:JAY HENRY MD
[2020-09-12 06:18] LABS: Absolute Lymphocyte Count 2.11 X10^3/uL (0.83-4.51); Absolute Neutrophil Count 8.1 X10^3/uL (2.0-7.7); Basophil# 0.06 X10^3/uL; Basophil% 0.5 % (0-1); Eosinophil# 0.31 X10^3/uL; Eosinophils% 2.8 % (0-5); Hematocrit 36.4 % (37-47); Hemoglobin 10.3 g/dL (12.0-15.0); Lymphocyte # 2.11 X10^3/ul (4.0); Lymphocyte % 18.8 % (19-41); Mean Corp Hgb Conc 28.3 g/dL (32-36); Mean Corpuscular Hgb 29.3 pg (27.0-32.0); Mean Corpuscular Volume 103.7 fL (81-99); Mean Platelet Vol. 9.5 fl (6.2-12.0); Monocyte# 0.56 X10^3/uL; NRBC Flagged by Analyzer 0 % (0-5); Neutrophil # 8.14 X10^3/uL (2.7-7.7); Neutrophil % 72.5 % (47-70); Platelet Count 320 K/mm3 (150-450); RBC Distribution Width CV 14.7 % (11.6-14.6); RBC Distribution Width SD 56.3 fl (35.1-43.9); Red Blood Count 3.51 M/mm3 (4.2-5.4); White Blood Count 11.2 K/mm3 (4.4-11.0)
[2020-09-12 06:56] LABS: Anion Gap 3 (5-15); BUN 14 mg/dL (7-18); BUN/Creat Ratio 24.8 RATIO (10-20); Calcium,Total 8.3 mg/dL (8.5-10.1); Chloride 110 mmol/L (98-107); Creatinine, Serum 0.56 mg/dL (0.55-1.02); EST Glomerular Filtration Rate 123 mL/min (>60); Est Glom Filt Rate - Afr Amer 149 mL/min (>60); Estimated Creatinine Clearance 141.39 ml/min; Glucose 106 mg/dL (74-106); Potassium 4.3 mmol/L (3.5-5.1); Sodium Level 137 mmol/L (136-145)
--- NOTE | 2020-09-12 09:54 | PCM.PN.HOSP ---
Patient Problems: Active and Suspected Problems (Last Reviewed 09/11/20 @ 17:[address] Enzo Hernandez MD) Acute upper urinary tract infection (Acute) Ureterolithiasis (Acute) Renal colic on left side (Acute) Sepsis due to urinary tract infection (Acute) Subjective: Patient seen and examined. She had no complaints today and felt well. Review of systems otherwise negative. She has remained hemodynamically stable. She is for cystoscopy with stent placement by urology today. She does have a mild fever of 99.4F today. Wbc is down to 11.2. Vitals/I&O's: Vital Signs Temp Pulse Resp BP Pulse Ox 99.4 F H 97 17 126/83 H 93 09/12/20 08:03 09/12/20 08:03 09/12/20 08:03 09/12/20 08:03 09/12/20 08:03 Oxygen Flow Rate (L/min) 2 Oxygen Delivery Method Room Air Weight: 155 lb 10.342 oz Body Mass Index (BMI) 34.9 Intake and Output for Last 24 Hours 09/10/20 09/11/20 09/12/20 23:59 23:59 23:59 Intake Total 1370 / 1690 1420 / 1420 Output Total 100 / 350 700 / 700 Balance 1270 / 1340 720 / 720 General: Alert, Oriented x3, Cooperative HEENT: Atraumatic, PERRLA, EOMI, Normocephalic Oral: Dry Mucosa Neck: Supple, No JVD, Negative Carotid Bruits Lungs: Clear to auscultation, Normal air movement Cardiovascular: Regular rate, Regular Rhythm, Normal S1, Normal S2, No murmurs Abdomen: Bowel Sounds Present, Soft, Non Tender, Non-Distended, No Hepato-splenomegaly, - - has suprapubic urostomy Extremities: No clubbing, No cyanosis, No edema, Capillary Refill Less than 3 Seconds Skin: No rashes, No breakdown Musculoskeletal: No Tenderness to Palpation of Joints or Extremities Lymphatic: No Cervical, Supraclavicular, or Inguinal Adenopathy Neurological: Cranial nerves II-XII grossly intact, - - has bilateral LE paralysis due to spina bifida Psych/Mental Status: Normal Affect, Appropriate, Alert and oriented to time, place, person, mood and affect Microbiology Past 72 Hours 09/11/20 11:56 Mucosa - Nose SARS-CoV-2 Antigen (Rapid) - Final Laboratory Results 09/11/20 11:10: WBC 13.9 H, RBC 4.35, Hgb 12.7, Hct 40.4, MCV 92.9, MCH 29.2, MCHC 31.4 L, RDW Std Deviation 49.1 H, RDW Coeff of Melodie 14.4, Plt Count 401, MPV 9.5, Immature Gran % (Auto) 0.400, Neut % (Auto) 72.6 H, Lymph % (Auto) 18.3 L, [place] % (Auto) 5.8, Eos % (Auto) 2.5, Baso % (Auto) 0.4, Absolute Neuts (auto) 10.1 H, Absolute Lymphs (auto) 2.54, Nucleated RBC % 0 09/11/20 11:10: Sodium Cancelled, Potassium Cancelled, Chloride Cancelled, Carbon Dioxide Cancelled, Anion Gap Cancelled, BUN Cancelled, Creatinine Cancelled, Estim Creat Clear Calc Cancelled, Est GFR (MDRD) Af Amer Cancelled, Est GFR (MDRD) Non-Af Cancelled, BUN/Creatinine Ratio Cancelled, Glucose Cancelled, Calcium Cancelled 09/11/20 11:25: Lactic Acid Cancelled 09/11/20 11:48: Urine Color Straw, Urine Clarity Sl. Cloudy, Urine pH 6.5, Ur Specific [place] 1.015, Urine Protein 30 H, Urine Glucose (UA) Normal, Urine Ketones Negative, Urine Occult Blood 25 H, Urine Nitrite Negative, Urine Bilirubin Negative, Urine Urobilinogen Normal, Ur Leukocyte Esterase 500 H, Urine RBC 0 SEEN, Urine WBC 10-25 SEEN, Ur Squamous Epith Cells 0-5 SEEN, Urine Bacteria 2+, Urine Mucus 0 SEEN 09/11/20 11:48: Lactic Acid 1.0 09/11/20 11:48: Sodium 138, Potassium 4.0, Chloride 104, Carbon Dioxide 31.0, Anion Gap 3 L, BUN 18, Creatinine 0.61, Estim Creat Clear Calc 125.09, Est GFR (MDRD) Af Amer 135, Est GFR (MDRD) Non-Af 112, BUN/Creatinine Ratio 29.3 H, Glucose 92, Calcium 9.2 09/11/20 11:48: Urine Test Negative 09/11/20 15:44: Lactic Acid 0.7 09/12/20 06:10: WBC 11.2 H, RBC 3.51 L, Hgb 10.3 L, Hct 36.4 L, MCV 103.7 H D, MCH 29.3, MCHC 28.3 L D, RDW Std Deviation 56.3 H, RDW Coeff of Melodie 14.7 H, Plt Count 320, MPV 9.5, Immature Gran % (Auto) 0.400, Neut % (Auto) 72.5 H, Lymph % (Auto) 18.8 L, [place] % (Auto) 5.0, Eos % (Auto) 2.8, Baso % (Auto) 0.5, Absolute Neuts (auto) 8.1 H, Absolute Lymphs (auto) 2.11, Nucleated RBC % 0 09/12/20 06:10: Sodium 137, Potassium 4.3, Chloride 110 H, Carbon Dioxide 24.0, Anion Gap 3 L, BUN 14, Creatinine 0.56, Estim Creat Clear Calc 141.39, Est GFR (MDRD) Af Amer 149, Est GFR (MDRD) Non-Af 123, BUN/Creatinine Ratio 24.8 H, Glucose 106, Calcium 8.3 L Current Medications Acetaminophen (Acetaminophen 325 Mg Tablet) 650 mg PO Q6H PRN PRN PRN Reason: Pain Score 1-10/Temp > 100.7 F Aspirin (Aspirin 81 Mg Tab.Chew) 81 mg PO DAILY@0800 [facility] Enoxaparin Sodium (Enoxaparin 40 Mg/0.4 Ml Syringe) 40 mg SC DAILY [facility] Sodium Chloride () 1,000 mls @ 150 mls/hr IV .[id number] [facility] Last Admin: 09/12/20 05:20 Dose: 150 mls/hr Documented by: Sodium Chloride () 500 mls @ 15 mls/hr IV PRN PRN PRN Reason: Blood Transfusion Sodium Chloride () 250 mls @ 15 mls/hr IV .[id number] PRN PRN Reason: Saline Flush Sodium Chloride () 250 mls @ 15 mls/hr IV .[id number] PRN PRN Reason: Additional IVPB Infusion Cefepime HCl 2 gm/ Sodium (Chloride) 100 mls @ 200 mls/hr IV Q8 [facility] Last Infusion: 09/12/20 05:52 Dose: Infused Documented by: Lactobacillus Acidophilus (Lactobacillus Acidophilus) [facility] Last Admin: 09/11/20 20:15 Dose: 1 tablet Documented by: Medroxyprogesterone Acetate (Medroxyprogesterone 150 Mg/Ml Syringe) 150 mg IM .[id number] [facility] Morphine Sulfate (Morphine 4 Mg/Ml Syringe) 4 mg IV Q3H PRN PRN PRN Reason: Pain Score 6-10 Multivitamins (Multivitamins,Therapeutic Tablet) [facility] Last Admin: 09/11/20 21:10 Dose: 1 tablet Documented by: Ondansetron HCl (Ondansetron 4 Mg/2 Ml Vial) 4 mg IV Q8H PRN PRN PRN Reason: NAUSEA/VOMITING Oxycodone HCl (Oxycodone 5 Mg Tablet) 5 mg PO Q4H PRN PRN PRN Reason: Pain Score 4-5 Pantoprazole Sodium (Pantoprazole Sodium 20 Mg Tablet) [facility] Last Admin: 09/11/20 21:10 Dose: 20 mg Documented by: Paroxetine HCl (Paroxetine 20 Mg Tablet) 40 [facility] Last Admin: 09/11/20 21:11 Dose: 40 mg Documented by: Potassium Citrate (Potassium Citrate 15 Meq Tablet.Er) 15 meq PO BID [facility] Last Admin: 09/11/20 21:11 Dose: 15 meq Documented by: Sodium Chloride (0.9% Saline Lock 10 Ml Syringe) 10 - 40 ml IV UD PRN PRN Reason: SALINE FLUSH Tolterodine Tartrate (Tolterodine Tartrate 4 Mg Cap.Sa) 4 mg [facility] Last Admin: 09/11/20 20:15 Dose: 4 mg Documented by: STROKE Vital Signs/Narrative: Vital Signs Temp Pulse Resp BP Pulse Ox 09/12/20 08:03 99.4 F H 97 17 126/83 H 93 09/12/20 07:29 103 H Medical Necessity - Tobacco Use Smoking Status: Never smoker Assessment/Plan All Active Problems (Last Reviewed 09/11/20 @ 17:[address] Enzo Hernandez MD) Acute upper urinary tract infection (Acute) Ureterolithiasis (Acute) Renal colic on left side (Acute) Sepsis due to urinary tract infection (Acute) Pressure ulcer of sacral region, stage 3 (Acute) Wound, open, foot (Resolved) Acute respiratory failure with hypoxia (Acute) Sepsis (Acute) Gram-negative pneumonia (Acute) Decubitus ulcer of right buttock, stage 1 (Acute) #sepsis due to Acute complicated UTI with infected right ureteric stone on IV cefepime blood and urine cultures pending. hydrate with IVF NS @ 150cc/hr IV cefepime 2mg every 8 hours urology on board; for cystoscopy with stent placement. PT/OT consulted #UTI: As above. #Spina bifida with acquired scoliosis: Stable. Consult PT OT. #History of neurogenic bladder: Due to spina bifida. Has urostomy which she self caths daily. DVT prophylaxis: lovenox code status: full code Inpatient E&M: 87256 Subs Hosp L3
--- NOTE | 2020-09-12 11:00 | CASEMGMT ---
JEANNETTE MARTINEZ assessment: Face to Face with pt's mother/guardian for initial transition planning/care coordination assessment. Pt is sleeping with cpap in place in no distress. JEANNETTE MARTINEZ introduced self and role at [facility], mother voices understanding and consents to assessment. Care providers, pharmacy, and demographics verified. Presentation: Pt c/o left sided flank pain, recent dx kidney stone on left-also reports fever/recent UTI Admitting dx: Sepsis d/t UTI, kidney stone PCP: [facility] Specialists: Mary, uro; den Mack Preferred Pharmacy: [facility] Insurance: [facility] A/B, [facility] Prescription Benefit: SHARRI Living Will/HPOA: Per mother, pt has LW/HPOA and she is pt's HPOA as well as guardian. LNOK: Mirella Pena, mother; Robyn Clements, sister Living Arrangements: Pt lives with parents on main level of 2 story home and is dependent on mother for all ADL's. Pt also has an aide 3 days/week for about 3hrs/day. Pt's CM is Shantell Spencer. Pt is non-ambulatory. Transportation: Parents drive and states no transportation concerns. DME/HHC: Per mom, pt has the following DME: tracking system in home to bedroom and bathroom, power w/c, nebulizer, and cpap thru [employer]. Mom states no need for any further DME. Mom states pt has had HHC 3 years ago but has not been to SNF. Mother states no concerns with pt going home at time of discharge. Pt is on disability. Mom states pt does not smoke cigarettes or drink ETOH. Mom states no further concerns/needs. CM to follow for any further discharge planning/needs. Advised pt to ask for CM if any further questions/concerns/needs arise, voices understanding. Plan: Home w/ family support. [place] JEANNETTE MARTINEZ
--- NOTE | 2020-09-12 15:49 | PCM.CONS.B ---
Problem List (1) Acute upper urinary tract infection Status: Acute - Consult Date of Consult: 09/12/20 - Reason for Consult 45-year-old female with history of spina bifida she was seen in the office and is known to have a stone in the right kidney she now presents with obstruction and infection were to proceed with a cystoscopy and right stent placement. After this we can treat her with antibiotics discharge once stable and cultures are known and she does have an appointment later on this month for shockwave lithotripsy of the stone fragment.
--- NOTE | 2020-09-12 16:46 | OP.PCM_ITS ---
Problem List (1) Acute upper urinary tract infection Status: Acute Report of Operation Date of Procedure: 09/12/20 Pre-Operative Diagnosis: Right renal calculi radiolucent Post-Operative Diagnosis: Same Surgery/Procedure Performed:: Cystoscopy retrograde pyelogram and right stent placement Description of Surgical Findings:: 45-year-old female with spina bifida she has a Mitrofanoff she catheterizes through her bellybutton to the bladder she came in with a obstructing stone and sepsis nausea vomiting so today when taken to surgery for cystoscopy stent placement on the right side she is on the surgical schedule for treatment of the stone of the right side at this point she is on for lithotripsy progress which were overlooked laser ureteroscopy since I cannot see it on x-ray. Patient was taken back to the operating room at the smooth induction of general anesthesia she was placed in dorsolithotomy position her legs to place straight in the stirrups that could not bend him she is very short she is a pediatric patient basically. Once the legs were in the stirrups and straight went into the bladder with a 21 Montene[place] rigid cystourethroscope the bladder anatomy extremely unusual she had a large stone bladder probably from the Mitrofanoff and identified the trigone which is very flat and bullous edema I did force identify the right ureteral orifice and cannulated with a Pollick catheter quite difficult to get the wire up the right ureter after multiple gentle tries of that was able to get the wire up into the right kidney I then performed a retrograde pyelogram to see the contrast going up to the kidney could see the stones within the renal pelvis and delineate the anatomy and then I put a wire up into the kidney and then placed a stent but the for stent was missed position so I pulled out the stent and then recannulated the right ureteral orifice at the use another gentle manipulation to get the wire up on the right side and eventually got it in then over the wire advanced a 6 Montenegrin by 22 cm stent and then I saw that the wire was after coiled and then the stent coiled in the bladder I then pulled the wire and drained the bladder left the Mitrofanoff in place left the catheter in the Mitrofanoff patient anesthetic was reversed taken back to PACU good condition with plan to switch over to ureteroscopy laser when she comes back in about 2 weeks for treatment of the stone. Type of Anesthesia:: General Drains: stent right - Admit VTE Documentation VTE Present on Admission: No VTE Mechan Device Prophylaxis: SCD's
[2020-09-12] MEDS: Paroxetine 20 MG Tablet 40 MG PO (20:22)
[2020-09-12] MEDS: Multivitamins,Therapeutic Tablet 1 TABLET PO (20:22)
[2020-09-12] MEDS: Tolterodine Tartrate 4 MG CAP.SA PO (20:22)
[2020-09-12] MEDS: Pantoprazole Sodium 20 MG Tablet PO (20:24)
[2020-09-12] MEDS: Acetaminophen 325 MG Tablet 650 MG PO (20:36)
[2020-09-13] VITALS (14 sets, daily range): BP systolic 117–154; BP diastolic 77–99; PULSE 95–102; RESP 16–18; TEMP 36.6–37.4; O2SAT 91–99
[2020-09-13] MEDS: 0.9% Normal Saline 1,000 ML 150 ML IV ×2 (05:06→12:06)
[2020-09-13] MEDS: oxyCODONE 5 MG Tablet PO ×2 (05:29→19:53)
[2020-09-13 06:44] LABS: Absolute Lymphocyte Count 2.08 X10^3/uL (0.83-4.51); Absolute Neutrophil Count 8.1 X10^3/uL (2.0-7.7); Basophil# 0.06 X10^3/uL; Basophil% 0.5 % (0-1); Eosinophil# 0.42 X10^3/uL; Eosinophils% 3.7 % (0-5); Hematocrit 34.3 % (37-47); Hemoglobin 10.1 g/dL (12.0-15.0); Lymphocyte # 2.08 X10^3/ul (4.0); Lymphocyte % 18.5 % (19-41); Mean Corp Hgb Conc 29.4 g/dL (32-36); Mean Corpuscular Hgb 28.6 pg (27.0-32.0); Mean Corpuscular Volume 97.2 fL (81-99); Mean Platelet Vol. 9.5 fl (6.2-12.0); Monocyte# 0.57 X10^3/uL; Monocyte% 5.1 % (0-10); NRBC Flagged by Analyzer 0 % (0-5); Neutrophil # 8.11 X10^3/uL (2.7-7.7); Neutrophil % 71.9 % (47-70); Platelet Count 312 K/mm3 (150-450); RBC Distribution Width CV 14.6 % (11.6-14.6); RBC Distribution Width SD 52.7 fl (35.1-43.9); Red Blood Count 3.53 M/mm3 (4.2-5.4); White Blood Count 11.3 K/mm3 (4.4-11.0)
[2020-09-13 08:02] LABS: Anion Gap 3 (5-15); BUN 10 mg/dL (7-18); Calcium,Total 8.5 mg/dL (8.5-10.1); Chloride 108 mmol/L (98-107); Creatinine, Serum 0.46 mg/dL (0.55-1.02); EST Glomerular Filtration Rate 158 mL/min (>60); Est Glom Filt Rate - Afr Amer 191 mL/min (>60); Estimated Creatinine Clearance 172.13 ml/min; Glucose 102 mg/dL (74-106); Potassium 4.2 mmol/L (3.5-5.1); Sodium Level 139 mmol/L (136-145)
--- NOTE | 2020-09-13 09:19 | PCM.PN.BLA ---
Progress Note 45 yo female with spina bifida clinically stable s/p stent for infections stone can go home once cx back has appt for last stone in about 1 1/2 week. d/c abernathy on discharge and resume self cath. STROKE Vital Signs/Narrative: Vital Signs Temp Pulse Resp BP Pulse Ox 09/13/20 08:32 98 F 95 18 151/99 H 92 09/13/20 08:21 94 09/13/20 07:17 98 09/13/20 05:32 98.2 F 98 18 121/77 H 94
[2020-09-13] MEDS: Aspirin 81 MG TAB.CHEW PO (09:27)
[2020-09-13] MEDS: Enoxaparin 40 MG/0.4 ML Syringe SC (09:27)
[2020-09-13] MEDS: Acetaminophen 325 MG Tablet 650 MG PO (09:29)
--- NOTE | 2020-09-13 10:32 | PCM.PN.HOSP ---
Patient Problems: Active and Suspected Problems (Last Reviewed 09/11/20 @ 17:[address] Enzo Hernandez MD) Acute upper urinary tract infection (Acute) Ureterolithiasis (Acute) Renal colic on left side (Acute) Sepsis due to urinary tract infection (Acute) Subjective: Patient seen and examined. She had no complaints today. She had cystoscopy with stent placement yesterday. Review of systems otherwise negative. Vitals/I&O's: Vital Signs Temp Pulse Resp BP Pulse Ox 98 F 95 18 151/99 H 92 09/13/20 08:32 09/13/20 08:32 09/13/20 08:32 09/13/20 08:32 09/13/20 08:32 Oxygen Flow Rate (L/min) 2 Oxygen Delivery Method CPAP Weight: 155 lb 10.342 oz Body Mass Index (BMI) 35.0 Intake and Output for Last 24 Hours 09/11/20 09/12/20 09/13/20 23:59 23:59 23:59 Intake Total 1370 / 1690 3447.5 / 3447.5 2315.0 / 2315.0 Output Total 100 / 350 2055 / 2055 1525 / 1525 Balance 1270 / 1340 1392.5 / 1392.5 790.0 / 790.0 General: Alert, Oriented x3, Cooperative HEENT: Atraumatic, PERRLA, EOMI, Normocephalic Oral: Dry Mucosa Neck: Supple, No JVD, Negative Carotid Bruits Lungs: Clear to auscultation, Normal air movement Cardiovascular: Regular rate, Regular Rhythm, Normal S1, Normal S2, No murmurs Abdomen: Bowel Sounds Present, Soft, Non Tender, Non-Distended, No Hepato-splenomegaly, - -has urostomy through which she self caths Extremities: No clubbing, No cyanosis, No edema, Capillary Refill Less than 3 Seconds Skin: No rashes, No breakdown Musculoskeletal: No Tenderness to Palpation of Joints or Extremities Lymphatic: No Cervical, Supraclavicular, or Inguinal Adenopathy Neurological: Cranial nerves II-XII grossly intact, - - 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 09/11/20 11:25 Blood Culture (Wb) - Right Hand Blood Culture - Preliminary No growth in 48 hours. 09/11/20 11:56 Mucosa - Nose SARS-CoV-2 Antigen (Rapid) - Final Laboratory Results 09/13/20 06:30: WBC 11.3 H, RBC 3.53 L, Hgb 10.1 L, Hct 34.3 L, MCV 97.2 D, MCH 28.6, MCHC 29.4 L, RDW Std Deviation 52.7 H, RDW Coeff of Melodie 14.6, Plt Count 312, MPV 9.5, Immature Gran % (Auto) 0.300, Neut % (Auto) 71.9 H, Lymph % (Auto) 18.5 L, Mckenzie % (Auto) 5.1, Eos % (Auto) 3.7, Baso % (Auto) 0.5, Absolute Neuts (auto) 8.1 H, Absolute Lymphs (auto) 2.08, Nucleated RBC % 0 09/13/20 06:30: Sodium 139, Potassium 4.2, Chloride 108 H, Carbon Dioxide 28.0, Anion Gap 3 L, BUN 10, Creatinine 0.46 L, Estim Creat Clear Calc 172.13, Est GFR (MDRD) Af Amer 191, Est GFR (MDRD) Non-Af 158, BUN/Creatinine Ratio 22.0 H, Glucose 102, Calcium 8.5 Current Medications Acetaminophen (Acetaminophen 325 Mg Tablet) 650 mg PO Q6H PRN PRN PRN Reason: Pain Score 1-10/Temp > 100.7 F Last Admin: 09/13/20 09:29 Dose: 650 mg Documented by: Aspirin (Aspirin 81 Mg Tab.Chew) 81 mg PO DAILY@0800 [facility] Last Admin: 09/13/20 09:27 Dose: 81 mg Documented by: Enoxaparin Sodium (Enoxaparin 40 Mg/0.4 Ml Syringe) 40 mg SC DAILY [facility] Last Admin: 09/13/20 09:27 Dose: 40 mg Documented by: Sodium Chloride () 1,000 mls @ 150 mls/hr IV .[id number] [facility] Last Infusion: 09/13/20 08:35 Dose: Infused Documented by: Sodium Chloride () 500 mls @ 15 mls/hr IV PRN PRN PRN Reason: Blood Transfusion Sodium Chloride () 250 mls @ 15 mls/hr IV .[id number] PRN PRN Reason: Saline Flush Sodium Chloride () 250 mls @ 15 mls/hr IV .[id number] PRN PRN Reason: Additional IVPB Infusion Cefepime HCl 2 gm/ Sodium (Chloride) 100 mls @ 200 mls/hr IV Q8 [facility] Last Infusion: 09/13/20 05:39 Dose: Infused Documented by: Lactobacillus Acidophilus (Lactobacillus Acidophilus) [facility] Last Admin: 09/12/20 20:19 Dose: 1 tablet Documented by: Medroxyprogesterone Acetate (Medroxyprogesterone 150 Mg/Ml Syringe) 150 mg IM .[id number] [facility] Morphine Sulfate (Morphine 4 Mg/Ml Syringe) 4 mg IV Q3H PRN PRN PRN Reason: Pain Score 6-10 Multivitamins (Multivitamins,Therapeutic Tablet) [facility] Last Admin: 09/12/20 20:22 Dose: 1 tablet Documented by: Ondansetron HCl (Ondansetron 4 Mg/2 Ml Vial) 4 mg IV Q8H PRN PRN PRN Reason: NAUSEA/VOMITING Oxycodone HCl (Oxycodone 5 Mg Tablet) 5 mg PO Q4H PRN PRN PRN Reason: Pain Score 4-5 Last Admin: 09/13/20 05:29 Dose: 5 mg Documented by: Pantoprazole Sodium (Pantoprazole Sodium 20 Mg Tablet) [facility] Last Admin: 09/12/20 20:24 Dose: 20 mg Documented by: Paroxetine HCl (Paroxetine 20 Mg Tablet) [facility] Last Admin: 09/12/20 20:22 Dose: 40 mg Documented by: Potassium Citrate (Potassium Citrate 15 Meq Tablet.Er) 15 meq PO BID [facility] Last Admin: 09/13/20 09:28 Dose: 15 meq Documented by: Sodium Chloride (0.9% Saline Lock 10 Ml Syringe) 10 - 40 ml IV UD PRN PRN Reason: SALINE FLUSH Tolterodine Tartrate (Tolterodine Tartrate 4 Mg Cap.Sa) [facility] Last Admin: 09/12/20 20:22 Dose: 4 mg Documented by: STROKE Vital Signs/Narrative: Vital Signs Temp Pulse Resp BP Pulse Ox 09/13/20 08:32 98 F 95 18 151/99 H 92 09/13/20 08:21 94 09/13/20 07:17 98 Medical Necessity - Tobacco Use Smoking Status: Never smoker Assessment/Plan All Active Problems (Last Reviewed 09/11/20 @ 17:[address] Enzo Hernandez MD) Acute upper urinary tract infection (Acute) Ureterolithiasis (Acute) Renal colic on left side (Acute) Sepsis due to urinary tract infection (Acute) Pressure ulcer of sacral region, stage 3 (Acute) Wound, open, foot (Resolved) Acute respiratory failure with hypoxia (Acute) Sepsis (Acute) Gram-negative pneumonia (Acute) Decubitus ulcer of right buttock, stage 1 (Acute) 45-year-old female admitted with a complaint of fever and chills and has been admitted to manage for UTI and infected ureteric stone. #sepsis due to Acute complicated UTI with infected right ureteric stone s/p cystoscopy with right ureteral stent placement on IV cefepime urology on board blood cultures show no growth after 48 hours urine culutres growing Proteus mirabilis and alpha hemolytic streptococcus #UTI: As above. #Spina bifida with acquired scoliosis: Stable. #History of neurogenic bladder: Due to spina bifida. Has urostomy which she self caths daily. DVT prophylaxis: lovenox code status; full code Inpatient E&M: 52594 Subs Hosp L2
--- NOTE | 2020-09-13 14:22 | CASEMGMT ---
SW spoke w/pt's mother in pt's room in regard to services at home. She states that Rolanda Spencer is pt's SSA, she does not think SW needs to call her for anything. SW also asked about pt's aides at home, if SW needs to contact any agency. Pt's mother states that no, she will contact the aides when pt goes home. SW gave pt's mother SW's number to call, in the event pt gets home and any of the service providers need information from pt's hospital stay. Pt's mother states understanding. Otherwise, no other social service needs are anticipated. CHERYL Irizarry
[2020-09-13] MEDS: Tolterodine Tartrate 4 MG CAP.SA PO (21:35)
[2020-09-13] MEDS: Multivitamins,Therapeutic Tablet 1 TABLET PO (21:36)
[2020-09-13] MEDS: Paroxetine 20 MG Tablet 40 MG PO (21:36)
[2020-09-13] MEDS: Pantoprazole Sodium 20 MG Tablet PO (21:36)
[2020-09-14] VITALS (11 sets, daily range): BP systolic 145–158; BP diastolic 81–115; PULSE 92–121; RESP 16–18; TEMP 36.2–37; O2SAT 95–98
[2020-09-14 06:32] LABS: Absolute Lymphocyte Count 1.92 X10^3/uL (0.83-4.51); Absolute Neutrophil Count 9.7 X10^3/uL (2.0-7.7); Basophil# 0.05 X10^3/uL; Basophil% 0.4 % (0-1); Eosinophil# 0.51 X10^3/uL; Eosinophils% 3.9 % (0-5); Hematocrit 37.1 % (37-47); Hemoglobin 11.1 g/dL (12.0-15.0); Lymphocyte # 1.92 X10^3/ul (4.0); Lymphocyte % 14.8 % (19-41); Mean Corp Hgb Conc 29.9 g/dL (32-36); Mean Corpuscular Hgb 28.8 pg (27.0-32.0); Mean Corpuscular Volume 96.4 fL (81-99); Mean Platelet Vol. 9.6 fl (6.2-12.0); Monocyte# 0.75 X10^3/uL; Monocyte% 5.8 % (0-10); NRBC Flagged by Analyzer 0 % (0-5); Neutrophil # 9.72 X10^3/uL (2.7-7.7); Neutrophil % 74.6 % (47-70); Platelet Count 339 K/mm3 (150-450); RBC Distribution Width CV 14.4 % (11.6-14.6); RBC Distribution Width SD 50.7 fl (35.1-43.9); Red Blood Count 3.85 M/mm3 (4.2-5.4)
[2020-09-14 06:59] LABS: Anion Gap 1 (5-15); BUN 9 mg/dL (7-18); BUN/Creat Ratio 21.8 RATIO (10-20); Calcium,Total 9.2 mg/dL (8.5-10.1); Chloride 102 mmol/L (98-107); Creatinine, Serum 0.41 mg/dL (0.55-1.02); EST Glomerular Filtration Rate 177 mL/min (>60); Est Glom Filt Rate - Afr Amer 214 mL/min (>60); Estimated Creatinine Clearance 193.12 ml/min; Glucose 95 mg/dL (74-106); Potassium 4.2 mmol/L (3.5-5.1); Sodium Level 134 mmol/L (136-145)
--- NOTE | 2020-09-14 08:44 | PCM.PN.BLA ---
Progress Note 45 yo female with spina bifida no changes, s/p stent, urine cx are back on discharge her abernathy can come out and do self cath and overnight abernathy at home like usual STROKE Vital Signs/Narrative: Vital Signs Temp Pulse Resp BP Pulse Ox 09/14/20 08:38 98.4 F 108 H 17 157/109 H 98 09/14/20 06:48 109 H
[2020-09-14] MEDS: Aspirin 81 MG TAB.CHEW PO (08:45)
--- NOTE | 2020-09-14 10:02 | PCM.PN.HOSP ---
Patient Problems: Active and Suspected Problems (Last Reviewed 09/11/20 @ 17:[address] Enzo Hernandez MD) Acute upper urinary tract infection (Acute) Ureterolithiasis (Acute) Renal colic on left side (Acute) Sepsis due to urinary tract infection (Acute) Subjective: Patient seen and examined. She feels well and has no complaints today. Review systems otherwise negative. WBC has trended up slightly to 13.3 today and her heart rate is up at 108. She is therefore still meeting SIRS criteria 2 out of 4. She has otherwise remained hemodynamically stable. Vitals/I&O's: Vital Signs Temp Pulse Resp BP Pulse Ox 98.4 F 108 H 17 157/109 H 98 09/14/20 08:38 09/14/20 08:38 09/14/20 08:38 09/14/20 08:38 09/14/20 08:38 Oxygen Flow Rate (L/min) 1 Oxygen Delivery Method Nasal Cannula Weight: 155 lb 10.342 oz Body Mass Index (BMI) 35.0 Intake and Output for Last 24 Hours 09/12/20 09/13/20 09/14/20 23:59 23:59 23:59 Intake Total 3447.5 / 3447.5 3995.5 / 3995.5 200 / 200 Output Total 2055 / 2055 4675 / 4675 2200 / 2200 Balance 1392.5 / 1392.5 -679.5 / -679.5 -1999 / General: Alert, Oriented x3, Cooperative HEENT: Atraumatic, PERRLA, EOMI, Normocephalic Oral: Dry Mucosa Neck: Supple, No JVD, Negative Carotid Bruits Lungs: Clear to auscultation, Normal air movement Cardiovascular: Regular rate, Regular Rhythm, Normal S1, Normal S2, No murmurs Abdomen: Bowel Sounds Present, Soft, Non Tender, Non-Distended, No Hepato-splenomegaly, - -has urostomy through which she self caths Extremities: No clubbing, No cyanosis, No edema, Capillary Refill Less than 3 Seconds Skin: No rashes, No breakdown Musculoskeletal: No Tenderness to Palpation of Joints or Extremities Lymphatic: No Cervical, Supraclavicular, or Inguinal Adenopathy Neurological: Cranial nerves II-XII grossly intact, - - 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 09/11/20 11:25 Blood Culture (Wb) - Right Hand Blood Culture - Preliminary No growth in 48 hours. 09/11/20 11:56 Mucosa - Nose SARS-CoV-2 Antigen (Rapid) - Final Laboratory Results 09/14/20 06:18: WBC 13.0 H, RBC 3.85 L, Hgb 11.1 L, Hct 37.1, MCV 96.4, MCH 28.8, MCHC 29.9 L, RDW Std Deviation 50.7 H, RDW Coeff of Melodie 14.4, Plt Count 339, MPV 9.6, Immature Gran % (Auto) 0.500, Neut % (Auto) 74.6 H, Lymph % (Auto) 14.8 L, Callahan % (Auto) 5.8, Eos % (Auto) 3.9, Baso % (Auto) 0.4, Absolute Neuts (auto) 9.7 H, Absolute Lymphs (auto) 1.92, Nucleated RBC % 0 09/14/20 06:18: Sodium 134 L, Potassium 4.2, Chloride 102, Carbon Dioxide 31.0, Anion Gap 1 L, BUN 9, Creatinine 0.41 L, Estim Creat Clear Calc 193.12, Est GFR (MDRD) Af Amer 214, Est GFR (MDRD) Non-Af 177, BUN/Creatinine Ratio 21.8 H, Glucose 95, Calcium 9.2 Current Medications Acetaminophen (Acetaminophen 325 Mg Tablet) 650 mg PO Q6H PRN PRN PRN Reason: Pain Score 1-10/Temp > 100.7 F Last Admin: 09/13/20 09:29 Dose: 650 mg Documented by: Aspirin (Aspirin 81 Mg Tab.Chew) 81 mg PO DAILY@0800 [facility] Last Admin: 09/14/20 08:45 Dose: 81 mg Documented by: Enoxaparin Sodium (Enoxaparin 40 Mg/0.4 Ml Syringe) 40 mg SC DAILY [facility] Last Admin: 09/13/20 09:27 Dose: 40 mg Documented by: Sodium Chloride () 500 mls @ 15 mls/hr IV PRN PRN PRN Reason: Blood Transfusion Sodium Chloride () 250 mls @ 15 mls/hr IV .[id number] PRN PRN Reason: Saline Flush Last Infusion: 09/13/20 22:10 Dose: 15 mls/hr Documented by: Sodium Chloride () 250 mls @ 15 mls/hr IV .[id number] PRN PRN Reason: Additional IVPB Infusion Cefepime HCl 2 gm/ Sodium (Chloride) 100 mls @ 200 mls/hr IV Q8 [facility] Last Infusion: 09/14/20 06:22 Dose: Infused Documented by: Lactobacillus Acidophilus ([facility]act[facility]ophilus) [facility] Last Admin: 09/13/20 21:36 Dose: 1 tablet Documented by: Medroxyprogesterone Acetate (Medroxyprogesterone 150 Mg/Ml Syringe) 150 mg IM .[id number] [facility] Morphine Sulfate (Morphine 4 Mg/Ml Syringe) 4 mg IV Q3H PRN PRN PRN Reason: Pain Score 6-10 Multivitamins (Multivitamins,Therapeutic Tablet) 1 tablet PO QHS [facility] Last Admin: 09/13/20 21:36 Dose: 1 tablet Documented by: Ondansetron HCl (Ondansetron 4 Mg/2 Ml Vial) 4 mg IV Q8H PRN PRN PRN Reason: NAUSEA/VOMITING Oxycodone HCl (Oxycodone 5 Mg Tablet) 5 mg PO Q4H PRN PRN PRN Reason: Pain Score 4-5 Last Admin: 09/13/20 19:53 Dose: 5 mg Documented by: Pantoprazole Sodium (Pantoprazole Sodium 20 Mg Tablet) 20 mg PO QHS [facility] Last Admin: 09/13/20 21:36 Dose: 20 mg Documented by: Paroxetine HCl (Paroxetine 20 Mg Tablet) [facility] Last Admin: 09/13/20 21:36 Dose: 40 mg Documented by: Potassium Citrate (Potassium Citrate 15 Meq Tablet.Er) 15 meq PO BID [facility] Last Admin: 09/13/20 21:37 Dose: 15 meq Documented by: Sodium Chloride (0.9% Saline Lock 10 Ml Syringe) 10 - 40 ml IV UD PRN PRN Reason: SALINE FLUSH Tolterodine Tartrate (Tolterodine Tartrate 4 Mg Cap.Sa) 4 mg PO QHS [facility] Last Admin: 09/13/20 21:35 Dose: 4 mg Documented by: STROKE Vital Signs/Narrative: Vital Signs Temp Pulse Resp BP Pulse Ox 09/14/20 08:38 98.4 F 108 H 17 157/109 H 98 09/14/20 06:48 109 H Medical Necessity - Tobacco Use Smoking Status: Never smoker Assessment/Plan All Active Problems (Last Reviewed 09/11/20 @ 17:[address] Enzo Hernandez MD) Acute upper urinary tract infection (Acute) Ureterolithiasis (Acute) Renal colic on left side (Acute) Sepsis due to urinary tract infection (Acute) Pressure ulcer of sacral region, stage 3 (Acute) Wound, open, foot (Resolved) Acute respiratory failure with hypoxia (Acute) Sepsis (Acute) Gram-negative pneumonia (Acute) Decubitus ulcer of right buttock, stage 1 (Acute) 45-year-old female admitted with a complaint of fever and chills and has been admitted to manage for UTI and infected ureteric stone. #sepsis due to Acute complicated UTI with infected right ureteric stone s/p cystoscopy with right ureteral stent placement on IV cefepime urology on board blood cultures show no growth after 48 hours urine cultures growing Proteus mirabilis and alpha hemolytic streptococcus patient has SIRS criteria of 2/4 today, with increased wbc and HR. Will therefore continue on IV antibiotics for today #UTI: As above. #Spina bifida with acquired scoliosis: Stable. #History of neurogenic bladder: Due to spina bifida. Has urostomy which she self caths daily. DVT prophylaxis: lovenox code status; full code Disposition: for likely Dc home tomorrow Inpatient E&M: 62300 Subs Hosp L2
[2020-09-14] MEDS: Enoxaparin 40 MG/0.4 ML Syringe SC (10:53)
[2020-09-14] MEDS: Polyethylene Glycol 3350 17 GM PACKET PO (15:55)
[2020-09-14] MEDS: Bisacodyl 5 MG Tablet 10 MG PO (15:55)
[2020-09-14] MEDS: 0.9% Saline Lock 10 ML Syringe IV ×2 (16:08→21:19)
[2020-09-14] MEDS: hydrALAZINE 20 MG/ML Vial 10 MG IV (16:09)
[2020-09-14] MEDS: Paroxetine 20 MG Tablet 40 MG PO (21:19)
[2020-09-14] MEDS: POTASSIUM CITRATE 5 MEQ TABLET.ER 15 MEQ PO (21:19)
[2020-09-14] MEDS: Pantoprazole Sodium 20 MG Tablet PO (21:19)
[2020-09-14] MEDS: Multivitamins,Therapeutic Tablet 1 TABLET PO (21:19)
[2020-09-14] MEDS: Tolterodine Tartrate 4 MG CAP.SA PO (21:19)
[2020-09-15] MEDS: oxyCODONE 5 MG Tablet PO (02:10)
[2020-09-15 02:57] VITALS: BP 149/80; PULSE 110; RESP 18; TEMP 36.6; O2SAT 95
[2020-09-15 03:01] VITALS: PULSE 91
[2020-09-15 06:43] LABS: Absolute Lymphocyte Count 2.12 X10^3/uL (0.83-4.51); Absolute Neutrophil Count 11.4 X10^3/uL (2.0-7.7); Basophil# 0.04 X10^3/uL; Basophil% 0.3 % (0-1); Eosinophil# 0.38 X10^3/uL; Eosinophils% 2.6 % (0-5); Hematocrit 39.4 % (37-47); Hemoglobin 12.4 g/dL (12.0-15.0); Lymphocyte # 2.12 X10^3/ul (4.0); Lymphocyte % 14.3 % (19-41); Mean Corp Hgb Conc 31.5 g/dL (32-36); Mean Corpuscular Volume 92.1 fL (81-99); Mean Platelet Vol. 9.7 fl (6.2-12.0); Monocyte# 0.85 X10^3/uL; Monocyte% 5.7 % (0-10); NRBC Flagged by Analyzer 0 % (0-5); Neutrophil # 11.39 X10^3/uL (2.7-7.7); Neutrophil % 76.8 % (47-70); Platelet Count 412 K/mm3 (150-450); RBC Distribution Width CV 14.6 % (11.6-14.6); RBC Distribution Width SD 49.3 fl (35.1-43.9); Red Blood Count 4.28 M/mm3 (4.2-5.4); White Blood Count 14.8 K/mm3 (4.4-11.0)
[2020-09-15 07:04] VITALS: PULSE 110
[2020-09-15 07:09] LABS: Anion Gap 4 (5-15); BUN 10 mg/dL (7-18); BUN/Creat Ratio 21.1 RATIO (10-20); Calcium,Total 9.7 mg/dL (8.5-10.1); Chloride 99 mmol/L (98-107); Creatinine, Serum 0.47 mg/dL (0.55-1.02); EST Glomerular Filtration Rate 151 mL/min (>60); Est Glom Filt Rate - Afr Amer 183 mL/min (>60); Estimated Creatinine Clearance 168.47 ml/min; Glucose 95 mg/dL (74-106); Potassium 4.4 mmol/L (3.5-5.1); Sodium Level 135 mmol/L (136-145)
[2020-09-15 07:19] VITALS: O2SAT 95
[2020-09-15] MEDS: POTASSIUM CITRATE 5 MEQ TABLET.ER 15 MEQ PO (08:15)
[2020-09-15] MEDS: Aspirin 81 MG TAB.CHEW PO (08:15)
[2020-09-15] MEDS: Polyethylene Glycol 3350 17 GM PACKET PO (08:18)
[2020-09-15] MEDS: Enoxaparin 40 MG/0.4 ML Syringe SC (08:18)
[2020-09-15 09:43] VITALS: BP 125/78; PULSE 125; RESP 17; TEMP 36.6; O2SAT 99
--- NOTE | 2020-09-15 12:03 | DCINST_ITS ---
- Discharge Diagnoses Current Active Problems: Current Active and Chronic Problems (Last Reviewed 09/11/20 @ 17:[address] Enzo Hernandez MD) Acute upper urinary tract infection (Acute) Ureterolithiasis (Acute) Renal colic on left side (Acute) Sepsis due to urinary tract infection (Acute) Spina bifida (Chronic) You will use the following diet at home:: No restrictions Your food should be the consistency of: Regular Your liquids should be the consistency of: Regular/Thin Discharge Activity: Return to Normal Activity Call your doctor if you observe: Fever of 101 or Higher Additional Instructions: Self cath and overnight indwelling catheter as previously performed. Allergies/Adverse Reactions: Allergies amoxicillin [From Augmentin] Adverse Reaction (Verified 09/11/20 10:12) Diarrhea azithromycin [From Zithromax Z-Turner] Adverse Reaction (Verified 09/11/20 10:12) Diarrhea ciprofloxacin [From Cipro] Adverse Reaction (Verified 09/11/20 10:12) Pain in joints clavulanic acid [From Augmentin] Adverse Reaction (Verified 09/11/20 10:12) Diarrhea Medications to take at Discharge Multivitamins,Therapeutic [Multivitamin] 1 tablet PO QHS 04/24/13 Omeprazole [Prilosec] 20 mg PO QHS 03/11/18 Aspirin [Aspirin, Baby] 81 mg PO DAILY@0800 tab.chew 03/14/18 MedroxyPROGESTERone [Depo-Provera] 150 mg IM .[id number] 03/19/19 Potassium Citrate [Urocit-K] 15 meq PO BID #60 tablet.er 03/23/19 Bacillus Coagulans [Probiotic] 1 each PO QHS 09/11/20 Oxybutynin Chloride [Oxybutynin Chloride ER] 15 mg PO QHS 09/11/20 Paroxetine HCl [Paxil] 40 mg PO QHS 09/11/20 Polyethylene Glycol 3350 [Miralax] 17 gm PO DAILY PRN PRN 09/14/20 Primary Care Physician: Kelsey Toure [employer], [employer] [Primary Care Provider] - Within 2 Weeks Test Results: Test results from this visit will be discussed in further detail at your follow- up appointment, if applicable. Please Follow Up With: Enzo Hernandez MD When: 1-2 weeks Proposed Discharge Date: 09/15/20
--- NOTE | 2020-09-15 12:05 | DS.PCM_ITS ---
Discharge Date and Diagnosis - Problem List Patient Problems: Active and Suspected Problems (Last Reviewed 09/11/20 @ 17:[address] Enzo Hernandez MD) Ureterolithiasis (Acute) Renal colic on left side (Acute) Sepsis due to urinary tract infection (Acute) Date of Admission: 09/11/20 Date of Discharge: 09/15/20 - Primary Discharge Diagnosis Acute Problems: Active Problems (Last Reviewed 09/11/20 @ 17:[address] Enzo Hernandez MD) Acute upper urinary tract infection (Acute) Ureterolithiasis (Acute) Renal colic on left side (Acute) Sepsis due to urinary tract infection (Acute) - Secondary Discharge Diagnosis Chronic Problems: Chronic Problems (Last Reviewed 09/11/20 @ 17:[address] Enzo Hernandez MD) History of back surgery (Chronic) had vertebral rods placed throughout thoracolumbar region and sacrum Edema of right lower extremity (Chronic) Spina bifida (Chronic) Decubitus ulcer of lower back, stage 3 (Chronic) midline Hospital Course and Treatment Operations: - - cystoscopy Procedures: None Summary of Care Provided: The patient is a 45 year old F presented with fever and chills. Patient previously known to have a 1 cm stone at the right UP junction. Concern was for UTI as patient had 2+ bacteria and 10-25 white blood cells. Culture came back 1000 Proteus mirabilis as well as creatinine 100,000 Streptococcus gallolyticus. Patient had negative nitrates, 500 leuk esterase and 10-25 white blood cells. I feel that the urine is likely colonization and not a true infection. Patient was felt to have sepsis, however I do not feel the patient was septic and as patient has had chronic leukocytosis and urinalysis is not suggestive of a urinary tract infection. Therefore, patient would not receive any additional antibiotics upon discharge. Patient was put on cefepime during this hospitalization. Patient did undergo a cystoscopy on September 12 with retrograde pyelogram and right stent placement. Afterwards patient is feeling much better. Patient will follow up with urology in regards to having the stone and stent subsequently removed. Patient is overall feeling well and will be discharged home in stable condition. Case discussed with the patient's mother at bedside. Patient had acute Newberry catheter placed here. Patient will continue with her intermittent self catheterizations as well as continuous drainage overnight she was doing previously. [] Patient Problems: Active and Suspected Problems (Last Reviewed 09/11/20 @ 17:[address] Enzo Hernandez MD) Ureterolithiasis (Acute) Renal colic on left side (Acute) Sepsis due to urinary tract infection (Acute) - Physical Exam Vitals/I&O's: Vital Signs Temp Pulse Resp BP Pulse Ox 36.6 C 125 H 17 125/78 H 99 09/15/20 09:43 09/15/20 09:43 09/15/20 09:43 09/15/20 09:43 09/15/20 09:43 Oxygen Flow Rate (L/min) 2 Oxygen Delivery Method Nasal Cannula Weight: 70.6 kg Body Mass Index (BMI) 35.0 Intake and Output for Last 24 Hours 09/13/20 09/14/20 09/15/20 23:59 23:59 23:59 Intake Total 3995.5 / 3995.5 1770.25 / 1770.25 100 / 100 Output Total 4675 / 4675 4775 / 4775 950 / 950 Balance -679.5 / -679.5 -3004.75 / -3004.75 -850 / -850 General: Alert, Cooperative, No apparent distress HEENT: Atraumatic, Normocephalic Oral: Moist Mucosa, No Gingival or Mucosal Lesions/ Ulcerations Neck: No Nodes, Thyroid Normal Size and Texture Lungs: Clear to auscultation, Normal air movement, No rhonchi, No wheeze, No rales Cardiovascular: Regular rate, Regular Rhythm, Normal S1, Normal S2, No murmurs Abdomen: Bowel Sounds Present, Soft, Non Tender, Non-Distended, No Hepato- splenomegaly Extremities: No edema, No Calf Tenderness Psych/Mental Status: Normal Affect, Appropriate Microbiology Past 72 Hours 09/11/20 11:48 Urine Catheter - Catheter Urine Culture - Final Proteus mirabilis Streptococcus gallolyticus pas 09/11/20 11:52 Blood Culture (Wb) - Arm Left Blood Culture - Preliminary No growth in 48 hours. 09/11/20 11:25 Blood Culture (Wb) - Right Hand Blood Culture - Preliminary No growth in 48 hours. Laboratory Results 09/15/20 06:10: WBC 14.8 H, RBC 4.28, Hgb 12.4, Hct 39.4, MCV 92.1, MCH 29.0, MCHC 31.5 L D, RDW Std Deviation 49.3 H, RDW Coeff of Melodie 14.6, Plt Count 412, MPV 9.7, Immature Gran % (Auto) 0.300, Neut % (Auto) 76.8 H, Lymph % (Auto) 14.3 L, [place] % (Auto) 5.7, Eos % (Auto) 2.6, Baso % (Auto) 0.3, Absolute Neuts (auto) 11.4 H, Absolute Lymphs (auto) 2.12, Nucleated RBC % 0 09/15/20 06:10: Sodium 135 L, Potassium 4.4, Chloride 99, Carbon Dioxide 32.0, Anion Gap 4 L, BUN 10, Creatinine 0.47 L, Estim Creat Clear Calc 168.47, Est GFR (MDRD) Af Amer 183, Est GFR (MDRD) Non-Af 151, BUN/Creatinine Ratio 21.1 H, Glucose 95, Calcium 9.7 Current Medications Acetaminophen (Acetaminophen 325 Mg Tablet) 650 mg PO Q6H PRN PRN PRN Reason: Pain Score 1-10/Temp > 100.7 F Last Admin: 09/13/20 09:29 Dose: 650 mg Documented by: Aspirin (Aspirin 81 Mg Tab.Chew) 81 mg PO DAILY@0800 [facility] Last Admin: 09/15/20 08:15 Dose: 81 mg Documented by: Enoxaparin Sodium (Enoxaparin 40 Mg/0.4 Ml Syringe) 40 mg SC DAILY [facility] Last Admin: 09/15/20 08:18 Dose: 40 mg Documented by: Hydralazine HCl (Hydralazine 20 Mg/Ml Vial) 10 mg IV Q6H PRN PRN PRN Reason: Sbp Greater Than 160 Last Admin: 09/14/20 16:09 Dose: 10 mg Documented by: Sodium Chloride () 500 mls @ 15 mls/hr IV PRN PRN PRN Reason: Blood Transfusion Sodium Chloride () 250 mls @ 15 mls/hr IV .[id number] PRN PRN Reason: Saline Flush Last Infusion: 09/14/20 22:02 Dose: 15 mls/hr Documented by: Sodium Chloride () 250 mls @ 15 mls/hr IV .[id number] PRN PRN Reason: Additional IVPB Infusion Cefepime HCl 2 gm/ Sodium (Chloride) 100 mls @ 200 mls/hr IV Q8 [facility] Last Infusion: 09/15/20 05:53 Dose: Infused Documented by: Lactobacillus Acidophilus (Lactobacillus Acidophilus) 1 tablet PO QHS [facility] Last Admin: 09/14/20 21:19 Dose: 1 tablet Documented by: Medroxyprogesterone Acetate (Medroxyprogesterone 150 Mg/Ml Syringe) 150 mg IM .[id number] [facility] Morphine Sulfate (Morphine 4 Mg/Ml Syringe) 4 mg IV Q3H PRN PRN PRN Reason: Pain Score 6-10 Multivitamins (Multivitamins,Therapeutic Tablet) 1 tablet PO QHS [facility] Last Admin: 09/14/20 21:19 Dose: 1 tablet Documented by: Ondansetron HCl (Ondansetron 4 Mg/2 Ml Vial) 4 mg IV Q8H PRN PRN PRN Reason: NAUSEA/VOMITING Oxycodone HCl (Oxycodone 5 Mg Tablet) 5 mg PO Q4H PRN PRN PRN Reason: Pain Score 4-5 Last Admin: 09/15/20 02:10 Dose: 5 mg Documented by: Pantoprazole Sodium (Pantoprazole Sodium 20 Mg Tablet) 20 mg PO QHS [facility] Last Admin: 09/14/20 21:19 Dose: 20 mg Documented by: Paroxetine HCl (Paroxetine 20 Mg Tablet) 40 mg PO QHS [facility] Last Admin: 09/14/20 21:19 Dose: 40 mg Documented by: Polyethylene Glycol (Polyethylene Glycol 3350 17 Gm Packet) 17 gm PO DAILY [facility] Last Admin: 09/15/20 08:18 Dose: 17 gm Documented by: Potassium Citrate (Potassium Citrate 5 Meq Tablet.Er) 15 meq PO BID [facility] Last Admin: 09/15/20 08:15 Dose: 15 meq Documented by: Sodium Chloride (0.9% Saline Lock 10 Ml Syringe) 10 - 40 ml IV UD PRN PRN Reason: SALINE FLUSH Last Admin: 09/14/20 21:19 Dose: 10 ml Documented by: Tolterodine Tartrate (Tolterodine Tartrate 4 Mg Cap.Sa) 4 mg PO QHS [facility] Last Admin: 09/14/20 21:19 Dose: 4 mg Documented by: Discharge Diet: No Restrictions Discharge Activity: Return to Normal Activity Call your doctor if you observe: Fever of 101 or Higher Home Medications: Medications to take at Discharge Multivitamins,Therapeutic [Multivitamin] 1 tablet PO QHS 04/24/13 Omeprazole [Prilosec] 20 mg PO QHS 03/11/18 Aspirin [Aspirin, Baby] 81 mg PO DAILY@0800 tab.chew 03/14/18 MedroxyPROGESTERone [Depo-Provera] 150 mg IM .[id number] 03/19/19 Potassium Citrate [Urocit-K] 15 meq PO BID #60 tablet.er 03/23/19 Bacillus Coagulans [Probiotic] 1 each PO QHS 09/11/20 Oxybutynin Chloride [Oxybutynin Chloride ER] 15 mg PO QHS 09/11/20 Paroxetine HCl [Paxil] 40 mg PO QHS 09/11/20 Polyethylene Glycol 3350 [Miralax] 17 gm PO DAILY PRN PRN 09/14/20 Primary Care Physician: Kelsey Toure OVERLOCK HEMMER, OVERLOCK HEMMER-C [Primary Care Provider] - Within 2 Weeks Please Follow Up With: Enzo Hernandez MD When: 1-2 weeks Disposition: Home Minutes spent on discharge:: 28 Patient Condition:: Good Medical Necessity - Tobacco Use Smoking Status: Never smoker Meaningful Use Info Meaningful Use Diagnoses (Choose all that apply): None applicable Inpatient E&M: 60132 Disch Hosp
--- NOTE | 2020-09-15 12:12 | PHA.DC.MR ---
Pharmacy Service has performed discharge medication reconciliation for this patient. The patient's discharge medication list was reviewed for discrepancies and discrepancies were resolved. Home Medications Multivitamins,Therapeutic [Multivitamin] 1 tablet PO QHS 04/24/13 Omeprazole [Prilosec] 20 mg PO QHS 03/11/18 Aspirin [Aspirin, Baby] 81 mg PO DAILY@0800 tab.chew 03/14/18 MedroxyPROGESTERone [Depo-Provera] 150 mg IM .[id number] 03/19/19 Potassium Citrate [Urocit-K] 15 meq PO BID #60 tablet.er 03/23/19 Bacillus Coagulans [Probiotic] 1 each PO QHS 09/11/20 Oxybutynin Chloride [Oxybutynin Chloride ER] 15 mg PO QHS 09/11/20 Paroxetine HCl [Paxil] 40 mg PO QHS 09/11/20 Polyethylene Glycol 3350 [Miralax] 17 gm PO DAILY PRN PRN 09/14/20
[2020-09-15] MEDS: MedroxyPROGESTERone 150 MG/ML Syringe IM (13:04)
--- NOTE | 2020-09-22 08:42 | CASEMGMT ---
SW received a message from pt's mother inquiring about a return to work letter for pt. SW called back, left her a message directing her to call Dr. Hernandez's office, and left the number for his office, for her to call. CHERYL Irizarry
== END 2020-09-15 14:06 | disposition home or self-care (01) | DRG 660 ==
LOC: ED 13:00 → PCU 13:14
PROVIDERS: Anesthesiology; Urology; Admitting Provider Student in an Organized Health Care Education/Training Program; Emergency Provider Emergency Medicine; PCP Nurse Practitioner Family
PROC: BT1D1ZZ Fluoroscopy of Right Kidney, Ureter and Bladder using Low Osmolar Contrast (ICD-10-PCS; CPT 52332; principal; 2020-09-12 17:20)
DX: N13.2 Hydronephrosis with renal and ureteral calculous obstruction (principal); G82.20 Paraplegia, unspecified; Q05.9 Spina bifida, unspecified; N21.0 Calculus in bladder; N31.9 Neuromuscular dysfunction of bladder, unspecified; Z93.6 Other artificial openings of urinary tract status; Z99.3 Dependence on wheelchair; B95.5 Unspecified streptococcus as the cause of diseases classified elsewhere; B96.4 Proteus (mirabilis) (morganii) as the cause of diseases classified elsewhere
CPT/HCPCS: 36415; 76000; 80048; 81001; 81025; 83605; 85025; 87040; 87077; 87086; 87088; 87186; 87426; 93005; 99284; J7030; J7050; A4216; C1769; C2625; J2405

== ENCOUNTER 2020-09-26 08:03 | Day surgery (SDC) | payer MEDICARE, MEDICAID, SELFPAY ==
[2020-09-12 14:05] VITALS: BMI 35.0
--- NOTE | 2020-09-26 08:11 | RAD_ITS ---
INDICATION: preop EXAMINATION/TECHNIQUE: X-RAY - XR Abdomen 1 View COMPARISON: 04/09/2019 FINDINGS: Normal visualized lung bases. There is a large amount of colonic gas. There is no demonstrated free abdominal air. There is a right-sided ureteral stent. The proximal portion of the stent is indeterminate in location. The distal portion of stent is projecting over the mid lower pelvis, likely in the bladder. A LOGISTICS OPERATIONS MANAGER shunt is also noted with tip projecting over the epigastrium. Normal soft tissue structures. There is severe deformity of the right hemipelvis and right hip. There are severe degenerative changes of the left hip joint. Stabilizing rods are seen extending from the lower thoracic level to the sacrum. The right-sided stabilization rhonda is fractured in the sacral area. RAD/Abdomen Single View IMPRESSION: Large amount of colonic gas. Right-sided ureteral stent noted with proximal portion in indeterminate position. Severe deformity of the right hemipelvis and hip and severe degenerative changes of the left hip. Electronically Signed: Yemi Paniagua MD at 23:03 EDT Tel , Service support ,
[2020-09-26] MEDS: Lactated Ringers 1,000 ML 100 ML IV (09:10)
[2020-09-26 09:17] VITALS: BP 137/82; PULSE 100; RESP 20; TEMP 36.9; O2SAT 97
--- NOTE | 2020-09-26 09:57 | HP.PCM_ITS ---
Problem List (1) Ureterolithiasis Status: Acute History of Present Illness Date of Admission: 09/26/20 Chief Complaint: Right kidney stones The patient is a 45 year old female with radiolucent stones in the right renal pelvis she underwent stent placement for infection she now presents for shockwave lithotripsy and stent removal on the right side Past Medical History Past Medical History (Chronic Problems): Chronic Problems (Last Reviewed 09/11/20 @ 17:[address] Enzo Hernandez MD) History of back surgery (Chronic) had vertebral rods placed throughout thoracolumbar region and sacrum Pressure ulcer of sacral region, stage 3 (Chronic) Edema of right lower extremity (Chronic) Spina bifida (Chronic) Decubitus ulcer of lower back, stage 3 (Chronic) midline Medical History: Medical History (Last Reviewed 09/11/20 @ 17:[address] Enzo Hernandez MD) Acquired scoliosis M41.9 Spina bifida Q05.9 Allergies amoxicillin [From Augmentin] Adverse Reaction (Verified 09/26/20 09:14) Diarrhea azithromycin [From Zithromax Z-Turner] Adverse Reaction (Verified 09/26/20 09:14) Diarrhea ciprofloxacin [From Cipro] Adverse Reaction (Verified 09/26/20 09:14) Pain in joints clavulanic acid [From Augmentin] Adverse Reaction (Verified 09/26/20 09:14) Diarrhea Home Medications: Ambulatory Orders Medication Instructions Recorded Multivitamins,Therapeutic 1 tablet PO QHS 04/24/13 [Multivitamin] Omeprazole [Prilosec] 20 mg PO QHS 03/11/18 Aspirin [Aspirin, Baby] 81 mg PO DAILY@0800 tab.chew 03/14/18 MedroxyPROGESTERone [Depo-Provera] 150 mg IM .[id number] 03/19/19 Potassium Citrate [Urocit-K] 15 meq PO BID #60 tablet.er 03/23/19 Bacillus Coagulans [Probiotic] 1 each PO QHS 09/11/20 Oxybutynin Chloride [Oxybutynin 15 mg PO QHS 09/11/20 Chloride ER] Paroxetine HCl [Paxil] 40 mg PO QHS 09/11/20 Polyethylene Glycol 3350 [Miralax] 17 gm PO DAILY PRN PRN 09/14/20 Surgical History: Surgical History (Last Reviewed 09/11/20 @ 17:[address] Enzo Hernandez MD) Hx of cholecystectomy Z90.49 Surgical History: cholecystectomy, - - vertebral rods. ileostomy Psychiatric History: No pertinent psych hx COMMUNITY HEALTH AGENT History: No pertinent COMMUNITY HEALTH AGENT history Smoking Status: Never smoker - *Family History Maternal History Items: No pertinent history Review of Systems Constitutional: Denies: Chills, Fever, Weight Change HEENT: Denies: Head Aches, Sinus Congestion, Sinus Drainage Cardiovascular: Denies: Chest Pain, Palpitations Respiratory: Denies: Cough, Shortness of breath at rest, Sputum production Gastrointestinal: Denies: Abdominal Pain, Nausea, Vomiting Genitourinary: Denies: Dysuria Musculoskeletal: Denies: Joint Pain, Joint Tenderness Skin: Denies: Rash, Wounds Neurological: Denies: Numbness, Tingling, Focal weakness Psychiatric: Denies: Anxiety, Depression, Homicidal Ideations, Suicidal Ideations Hematologic/ Lymphatic: Denies: Easy Bruising, Easy Bleeding VTE Information - Inpt Only VTE Present on Admission: No - Physical Exam Vitals/I&O's: Vital Signs Temp Pulse Resp BP Pulse Ox 98.4 F 100 20 H 137/82 H 97 09/26/20 09:17 09/26/20 09:17 09/26/20 09:17 09/26/20 09:17 09/26/20 09:17 Oxygen Delivery Method Room Air Weight: 67.132 kg Body Mass Index (BMI) 35.0 General: Alert, Oriented x3, Cooperative HEENT: Atraumatic, PERRLA, EOMI, Normocephalic Neck: Supple, No JVD, Negative Carotid Bruits Lungs: Clear to auscultation, Normal air movement Cardiovascular: Regular rate, No murmurs Abdomen: Bowel Sounds Present, Soft, Non Tender Extremities: No edema, Capillary Refill Less than 3 Seconds Skin: No rashes, No breakdown Musculoskeletal: No Tenderness to Palpation of Joints or Extremities Neurological: Cranial nerves II-XII grossly intact Psych/Mental Status: Normal Affect, Appropriate Microbiology Past 72 Hours 09/25/20 11:35 Interface Orders SARS-CoV-2 Antigen (Rapid) - Final Current Medications Cefazolin Sodium 2 gm/ Sodium (Chloride) 110 mls @ 150 mls/hr IV PREOP ONE Stop: 09/26/20 10:38 Lactated Ringer's () 1,000 mls @ 100 mls/hr IV .Q10H MONE Last Admin: 09/26/20 09:10 Dose: 100 mls/hr Documented by: Assessment/Plan All Active Problems (Last Reviewed 09/11/20 @ 17:[address] Enzo Hernandez MD) Acute upper urinary tract infection (Ruled-out) Ureterolithiasis (Acute) Renal colic on left side (Acute) Sepsis due to urinary tract infection (Acute) Wound, open, foot (Resolved) Acute respiratory failure with hypoxia (Ruled-out) Sepsis (Acute) Gram-negative pneumonia (Acute) Decubitus ulcer of right buttock, stage 1 (Acute) Plan to proceed with shockwave lithotripsy of the right kidney stones and retrograde pyelogram and stent removal
--- NOTE | 2020-09-26 09:59 | PCM.DC.URO ---
Discharge Diet: Light diet - advance as tolerated Discharge Activity: Return to Normal Activity Allergies/Adverse Reactions: Allergies amoxicillin [From Augmentin] Adverse Reaction (Verified 09/26/20 09:14) Diarrhea azithromycin [From Zithromax Z-Turner] Adverse Reaction (Verified 09/26/20 09:14) Diarrhea ciprofloxacin [From Cipro] Adverse Reaction (Verified 09/26/20 09:14) Pain in joints clavulanic acid [From Augmentin] Adverse Reaction (Verified 09/26/20 09:14) Diarrhea Medications to take at Discharge Multivitamins,Therapeutic [Multivitamin] 1 tablet PO QHS 04/24/13 Omeprazole [Prilosec] 20 mg PO QHS 03/11/18 Aspirin [Aspirin, Baby] 81 mg PO DAILY@0800 tab.chew 03/14/18 MedroxyPROGESTERone [Depo-Provera] 150 mg IM .[id number] 03/19/19 Potassium Citrate [Urocit-K] 15 meq PO BID #60 tablet.er 03/23/19 Bacillus Coagulans [Probiotic] 1 each PO QHS 09/11/20 Oxybutynin Chloride [Oxybutynin Chloride ER] 15 mg PO QHS 09/11/20 Paroxetine HCl [Paxil] 40 mg PO QHS 09/11/20 Polyethylene Glycol 3350 [Miralax] 17 gm PO DAILY PRN PRN 09/14/20 Orders to be completed after discharge: Abdomen Single View [RAD] Time Frame: 09/26/20, Facility: [facility], Location: [facility] [place] Primary Care Physician: Kelsey Toure NP, PHARMACY INFORMATICS SPECIALIST-C [Primary Care Provider] - Test Results: Test results from this visit will be discussed in further detail at your follow-up appointment, if applicable. Please Follow Up With: Enzo Hernandez MD When: please call to make an appointment.
[2020-09-26] MEDS: Cefazolin 2 GM in 0.9% Normal Saline 100 ML IV (10:00)
[2020-09-26] MEDS: Lubricating Jelly 60 GM Tube 30 GM TOPICAL (10:00)
--- NOTE | 2020-09-26 10:37 | PCM.OPRPT ---
Problem List (1) Ureterolithiasis Status: Acute Report of Operation Date of Procedure: 09/26/20 Pre-Operative Diagnosis: Right renal calculus Post-Operative Diagnosis: Same Surgery/Procedure Performed:: Right extracorporeal shockwave lithotripsy, and stent removal Description of Surgical Findings:: Patient presents to the hospital for treatment of a kidney stone with shockwave lithotripsy. In the preoperative area and x-ray was done to confirm the location of the stone. The x-ray was reviewed and the stone location was reviewed. In the preoperative setting I spoke with the patient regarding the treatment of the stone how the treatment would be conducted and the expectations after surgery. The patient understands there is a risk of bleeding and infection. Also discussed the very rare risk of hematoma or damage to the kidney. We also discussed the risk that the shockwave machine will fail to break the stone adequately and that the patient may need other surgical procedures. We also discussed the possibility that the patient may need a stent after the procedure. After reviewing the procedure with the patient, the patient is signed the consent form all the patient's questions were addressed and was taken back to the operating room for treatment of a kidney stone. Patient was taken back to the operating room, patient was identified by the nursing staff, we identified the side of the treatment and the patient side of treatment had been marked by my initials. The patient underwent general anesthetic and was placed supine on the lithotripter table. We then used fluoroscopy to identify the stone on the right renal pelvis with the stent. We then positioned the patient under the lithotripter and we used triangulation technique to identify the location of the stone and then we made sure that the stone was engaged in the F2 focal point of F2 Donier lithoprior machine. Once the patient was positioned appropriately and the stone was identified and placed in the F2 focal point of the lithotripter machine we then proceeded with shockwave lithotripsy. In the beginning the shockwave was delivered at a rate of 120 shocks per minute, we monitor the EKG for any ectopy. The power was slowly increased to 5 kV and subsequently at the 7 kV. We then proceeded with the treatment we move the therapy had around during the treatment to make sure the stone stayed in the F2 focal point during the entire treatment. Once the stone had broken up completely then we stopped the treatment a total of about 2000 shockwaves were delivered to the stone under fluoroscopic guidance. The patient's urethra and genitals were prepped and draped in usual sterile fashion. I went into the bladder with a 21 [place] rigid cystourethroscope. I grabbed the stent emanating from the right ureteral orifice and then gently remove the stent from the bladder. I then drained the patient's bladder.At this point the patient's anesthetic was reversed patient was extubated and taken back to the PACU in stable condition. The patient was given instructions to call the office to make an a follow-up appointment. Type of Anesthesia:: General Drains: stent removed. - Admit VTE Documentation VTE Present on Admission: No VTE Mechan Device Prophylaxis: SCD's
[2020-09-26 10:48] VITALS: BP 127/74; BP 137/82; PULSE 104; RESP 18; TEMP 36.1; O2SAT 100
[2020-09-26 11:00] VITALS: BP 125/61; BP 137/82; PULSE 101; RESP 18; O2SAT 94
[2020-09-26 11:13] VITALS: BP 137/82; PULSE 98; RESP 18; TEMP 36.5; O2SAT 97
[2020-09-26] MEDS: Ondansetron 4 MG/2 ML Vial IV (11:16)
[2020-09-26] MEDS: Ketorolac 15 MG/ML Vial IV (11:16)
[2020-09-26 12:14] VITALS: BP 137/82; BP 96/67; PULSE 92; RESP 16; TEMP 36.2; O2SAT 96
== END 2020-09-26 12:18 | disposition home or self-care (01) ==
LOC: SDC 08:04 → AC 08:05
PROVIDERS: PCP Nurse Practitioner Family; Referring Provider Urology; Visit Provider Urology
PROC: (CPT 50590; principal; 2020-09-26 09:45)
DX: N20.0 Calculus of kidney (principal); Q05.9 Spina bifida, unspecified; K21.9 Gastro-esophageal reflux disease without esophagitis; Z79.899 Other long term (current) drug therapy; G47.33 Obstructive sleep apnea (adult) (pediatric); G83.9 Paralytic syndrome, unspecified; Z20.822 Contact with and (suspected) exposure to COVID-19
CPT/HCPCS: 00873; 50590; 52310; 74018; 87426; C9803; J7120; C1769; J2405

== ENCOUNTER → 2021-04-10 13:43 | Outpatient (CLI) | payer MEDICARE, MEDICAID, SELFPAY ==
--- NOTE | 2021-04-10 13:47 | ECHOD_ITS ---
Reason For Study: DARIO Procedure This was a 2D Doppler, Color Flow transthoracic echocardiogram. Very technically difficult study. Echo done with patient in wheel chair. The study was technically difficult. Exam performed in department. Left Ventricle Normal LV size. Based upon the 2D echocardiographic images obtained there appears to be grossly normal left ventricular size, wall motion, and systolic function. The estimated ejection fraction is 65 %. Transmitral doppler flow suggestive of impaired relaxation of left ventricle. No regional wall motion abnormalities noted. Right Ventricle Normal RV size. Normal systolic function. Atria Normal left atrium. Normal right atrium. No doppler evidence for ASD. Mitral Valve There is no mitral annular calcification. Normal mitral valve. Trivial mitral valve insufficiency. Tricuspid Valve Normal tricuspid valve. Mild tricuspid valve insufficiency. Unable to estimate RV systolic pressure/pulmonary artery pressure due to technically difficult study. Aortic Valve Trisinus/trileaflet aortic valve. Normal aortic valve. Pulmonic Valve The pulmonic valve is not well visualized. Great Vessels Normal sized aortic root. Pericardium/Pleural No pericardial effusion. MMode/2D Measurements & Calculations LVIDd: 3.0 cm IVSd: 1.1 cm Ao root diam: 3.1 cm LVIDs: 1.8 cm LVPWd: 1.0 cm LA dimension: 3.0 cm FS: 40.1 % Time Measurements MV dec time: 0.30 sec Doppler Measurements & Calculations MV E max mikael: 71.3 cm/sec Lat Peak E' Mikael: 9.2 cm/sec Med Peak E' Mikael: 6.3 cm/sec MV A max mikael: 89.3 cm/sec E/E' lat: 7.8 E/E' med: 11.4 MV E/A: 0.80 Ao V2 max: 100.6 cm/sec LV V1 max: 91.0 cm/sec PA V2 max: 120.4 cm/sec Ao max P.0 mmHg LV V1 max P.3 mmHg ECHO/Echo Complete Interpretation Summary The study was technically difficult. Based upon the 2D echocardiographic images obtained there appears to be grossly normal left ventricular size, wall motion, and systolic function. The estimated ejection fraction is 65 %. Trivial mitral valve insufficiency. Mild tricuspid valve insufficiency. Unable to estimate RV systolic pressure/pulmonary artery pressure due to techni micaela difficult study. Transmitral doppler flow suggestive of impaired relaxation of left ventricle Ordering Physician: Parviz Mack Referring Physician: Kelsey Toure HUMANITIES AND LANGUAGES PROFESSOR-C Performed By: Carroll Whelan RCS
== END ==
PROVIDERS: PCP Nurse Practitioner Family; Referring Provider Internal Medicine Pulmonary Disease; Visit Provider Internal Medicine Pulmonary Disease
DX: G47.33 Obstructive sleep apnea (adult) (pediatric) (principal); R09.02 Hypoxemia; R06.09 Other forms of dyspnea
CPT/HCPCS: 93306

== ENCOUNTER → 2021-04-17 20:09 | Outpatient (CLI) | payer MEDICARE, MEDICAID, SELFPAY | PROVIDERS: PCP Nurse Practitioner Family; Referring Provider Internal Medicine Pulmonary Disease; Visit Provider Internal Medicine Pulmonary Disease | DX: G47.31 Primary central sleep apnea (principal); G47.33 Obstructive sleep apnea (adult) (pediatric) | CPT/HCPCS: 95811 ==

== ENCOUNTER → 2021-10-09 | Outpatient (CLI) | payer MEDICARE, MEDICAID, SELFPAY ==
--- NOTE | 2021-10-09 14:30 | ST.MBS ---
Modified Barium Swallow - Patient Information Study Date: 10/09/21 Study Time: 13:00 Direct Billable Minutes: 120 Total Minutes procedure & reportin Diagnosis: Spina bifida (Q05.9), GERD (K21.9) Referring Physician: Parviz Mack V Reason for Referral: Objectively assess swallow function, risk for aspiration, and determine recommendations for least restrictive diet textures and compensatory strategies to improve safety of swallow. Medical History: The patient is a 46 year old female with PMH including Acquired scoliosis, Spina bifida, GERD, History of back surgery (SEE EMR for full PMH) who was referred for MBS study after choking episode in August of 2021. Mother, Mirella, and caregiver, Candida, present for the study. The food she choked on was a pretzel. The patient's caregiver, Candida, had to perform the Heimlich maneuver and use a finger sweep to clear a pretzel from the patient's oral cavity. She has been eating chopped foods since and has supervision for all food and snack. The patient eats with a quick rate and consumes large bites while speaking per mother's report. She has a history of coughing when eating food. She had pneumonia ~2-3 years ago. Current Diet Ordered: Chopped foods / Thin liquids Dentition: WNL Mental Status: WNL - Followed directions well; however, the patient is impulsive with quick rate of oral intake. Respiratory Status: Oxygenating on Room Air - Penetration-Aspiration Scale Penetration-Aspiration Scale: OBJECTIVE ASSESSMENT OF SWALLOW FUNCTION (QUANTITATIVE ? PER TRIAL): PENETRATION / ASPIRATION SCALE (MORENO): 1 = does not enter airway 2 = enters airway/above vocal folds/ejected 3 = enters airway/above vocal folds/not ejected 4 = enters airway/contacts vocal folds/ejected 5 = enters airway/contacts vocal folds/not ejected 6 = enters airway/below vocal folds/ejected 7 = enters airway/below vocal folds/not ejected despite effort 8 = enters airway/below vocal folds/no effort VIDEOFLOROSCOPIC SCALE SCORE (MORENO): Grade I = aspiration of material that has penetrated into the laryngeal vestibule, intact cough reflex Grade II = aspiration < 10 % of the bolus, intact cough reflex Grade III = aspiration of < 10 % of the bolus, reduced cough reflex or aspiration of > 10 % of the bolus, intact cough reflex Grade IV = aspiration of > 10 % of the bolus, reduced cough reflex - Penetration-Aspiration Scale Score Thin Liquid via teaspoon Result: 1= does not enter airway Thin Liquid via teaspoon Trial 2 Result: 1= does not enter airway Thin Liquid via large single sip from cup Result: 2= enter airway/above vocal folds/ejected Thin Liquid via large single sip from cup Effortful swallow Result: 2= enter airway/above vocal folds/ejected Thin Liquid via teaspoon Trial 3 Result: 1= does not enter airway Thin Liquid via small single sip from cup Result: 1= does not enter airway [place] Thick Liquid via small single sip from cup Result: 1= does not enter airway Honey Thick Liquid via small single sip from cup Result: 1= does not enter airway Pudding via teaspoon Result: 1= does not enter airway Cookie Result: 1= does not enter airway Thin Liquid via sequential sips from straw Result: 2= enter airway/above vocal folds/ejected - Pt was cued for small sip, but took large sequential sips. Thin Liquid via sequential sips from cup Result: 2= enter airway/above vocal folds/ejected Thin Liquid via small single sip from cup Trial 2 Result: 1= does not enter airway - Oral Phase Labial Seal: No Labial Escape Tongue Control During Bolus Hold: Posterior escape of less than half of bolus Bolus Preparation/Mastication: Disorganized chewing/mashing with solid pieces of bolus unchewed Bolus Transport/Lingual Motion: Brisk tongue motion Oral Residue: Trace residue lining oral structures - Pharyngeal Phase Initiation of Pharyngeal Swallow: Bolus head at posterior laryngeal surgace of epiglottis - large sips of liquids Soft Palate Elevation: Trace column of contrast/air between soft palate and pharyngeal wall Laryngeal Elevation: Partial superior movement thyroid cart/partial apprx aryt-epig petiole Anterior Hyoid Excursion: Partial anterior movement Epiglottic Movement: Complete inversion Laryngeal Vestibule Closure at Height of Swallow: Incomplete; narrow column of air/contrast in laryngeal vestibule Pharyngeal Stripping Wave: Present - complete Pharyngoesophageal Segment Opening: Complete distension and complete duration; no obstruction of flow Tongue Base Retraction: Trace column of contrast between tongue base & post. pharyngeal wall Pharyngeal Residue: Trace residue within or on pharyngeal structures - Treatment Strategies Effects of treatment strategies attemped:: Effortful swallow = little to no impact. Decreased rate = effective. Decreased bolus size = effective. - Diagnosis/Impression Diagnosis: Mild oropharyngeal phase dysphagia (R13.12) Impression: Due to pt's body habitus, the C-arm was required to complete the study. COUNSELOR [facility]AMP had difficulty viewing the level of the vocal folds and below. COULD NOT DEFINITIVELY RULE OUT ASPIRATION FOR ALL TRIALS NOTED ABOVE DUE TO LIMITED VIEW OF PHARYNX. The oral phase is primarily marked by rapid and decreased mastication abilities with pieces of cookie bolus left unchewed upon swallowing. She had mild posterior loss of large or sequential sips of thin liquids to the posterior surface of the epiglottis resulting in suboptimal bolus placement before the swallow. The pharyngeal phase is primarily marked by mildly decreased airway closure during the swallow. She has mildly decreased hyoid excursion and laryngeal elevation. She demonstrated laryngeal penetration of large or sequential sips of thin liquids, which appeared to fully eject from the laryngeal vestibule. However, as mentioned above, the COUNSELOR CAMP could not rule out aspiration during the study due to limited view of pharynx due to pt's body habitus. - Recommendations Diet: Mechanical Soft Textures - Soft and bite size textures (IDDSI Level 6) with Minced and moist meats (IDDSI Level 5), Thin Liquids Compensatory Strategies: Small Bites - Clear oral cavity prior to taking each next bite, Small Sips - Consider use of Provale cup or sips by tsp if unable to reliably consume small sips with direct supervision and verbal cues, Slow Rate - Sips and bites one at a time, Sitting upright, Remain sitting upright for 30 minutes after PO intake, Assist with verbal cues to use recommended strategies Supervision: 1:1 Close Supervision Recommend Repeat Modified Barium Swallow: No Need for Skilled Speech Therapy Services: Yes Comment: Will recommend the patient for outpatient dysphagia therapy to address deficits in oropharyngeal swallow function. Would consider the patient for oropharyngeal strengthening to improve laryngeal elevation and hyoid excursion (effortful swallow, Sarah, CTAR). The patient would benefit from thorough education regarding diet recommendations and recommended compensatory strategies, especially need for use of small bites/sips and slow rate. Education Completed: 1. Described result of evaluation., 4. Family/caregivers understand evaluation & agree w/ goals & tx plan., 7. Pt requires further education on strategies & risks. Comment: Thorough education for pt, pt's mother, and pt's caregiver following study re: results of MBS study and recommended diet textures and aspiration precautions. Additionally, COUNSELOR CAMP educated the patient and family in aspiration and choking risk. Pt's mother inquired about use of de-choking device. COUNSELOR CAMP recommended use of Heimlich maneuver for choking. COUNSELOR CAMP provided soft and bite size and minced and moist preparation and testing handouts. Additional handout provided re: diet recommendations and aspiration precautions. Pt's mother and caregiver demonstrated good understanding. The patient requires continued education. Following explanation, she took a large sip resulting in coughing. COUNSELOR CAMP re-iterated recommendation for Provale cup to limit bolus size and rate with liquids. - Status Active ST Patient: Active - Contact Information [facility] Speech Therapy:: Anitra Garcia M.A. [facility] Speech-Language Pathologist [facility] [address] [place] [address] [email or web address] [phone] 10/09/21 14:51
== END | disposition home or self-care (01) ==
PROVIDERS: PCP Nurse Practitioner Family; Visit Provider Internal Medicine Pulmonary Disease
DX: K21.9 Gastro-esophageal reflux disease without esophagitis (principal); R05.9 Cough, unspecified
CPT/HCPCS: 74230; 92611

== ENCOUNTER → 2021-10-12 | Outpatient (CLI) | payer MEDICARE, MEDICAID, SELFPAY ==
--- NOTE | 2021-10-12 14:33 | CT_ITS ---
STUDY: CT ABDOMEN AND PELVIS WITHOUT CONTRAST REASON FOR EXAM: Female, 46 years old. GROSS HEMATURIA. History of spina bifida. RADIATION DOSAGE (If Supplied By Facility): CTDIvol = ( 19.62 ) mGy, DLP = ( 892.24 ) mGycm TECHNIQUE: Transaxial images were obtained from the dome of the diaphragm to the symphysis pubis without oral contrast, and without intravenous contrast. Sagittal and coronal images were reconstructed. Individualized dose optimization techniques were used for this CT. COMPARISON: Comparison is made with prior study 09/04/2020. FINDINGS: A right-sided ventricular peritoneal shunt tube is visualized. The visualized lung bases are unremarkable. The visualized portions of the heart are within normal limits. Normal liver. There are surgical clips in the gallbladder fossa consistent with a prior cholecystectomy. Normal spleen. Normal pancreas. Normal bilateral adrenal glands. Normal right kidney. Normal left kidney. No renal calculi are seen at this time. Mild degree of persistent right hydroureter down to the ureterovesical junction. No obstructive uropathy is seen at this time. Normal visualized stomach. Normal small intestine. Residual oral contrast is seen within portions of the colon. The appendix is visualized and appears normal. Normal abdominal aorta. Normal inferior vena cava. Normal retroperitoneum. Normal urinary bladder. Normal abdominal wall. Marked degree of levoscoliosis with rhonda and screw fixation devices. Once again, there is a fracture of the distal right rhonda. Marked degree of degenerative changes and pseudoacetabulum formation of the right hip joint. CT/Abdomen/Pelvis without Cont IMPRESSION: No evidence of ureteral obstruction at this time. Electronically Signed: Jared Burns MD at 15:23 EDT ,
[2021-10-12 14:59] LABS: Anion Gap 4 (5-15); BUN 9 mg/dL (7-18); BUN/Creat Ratio 16.2 RATIO (10-20); Calcium,Total 9.3 mg/dL (8.5-10.1); Chloride 102 mmol/L (98-107); Creatinine, Serum 0.56 mg/dL (0.55-1.02); EST Glomerular Filtration Rate 125 mL/min (>60); Est Glom Filt Rate - Afr Amer 151 mL/min (>60); Glucose 122 mg/dL (74-106); Potassium 3.4 mmol/L (3.5-5.1); Sodium Level 139 mmol/L (136-145)
== END | disposition home or self-care (01) ==
PROVIDERS: PCP Nurse Practitioner Family; Referring Provider Urology; Visit Provider Urology
DX: Q05.1 Thoracic spina bifida with hydrocephalus (principal); R31.0 Gross hematuria
CPT/HCPCS: 36415; 74176; 80048

== ENCOUNTER → 2021-10-28 | Outpatient (CLI) | payer MEDICARE, MEDICAID, SELFPAY ==
[2021-11-04 13:39] VITALS: BP 153/104; PULSE 100; RESP 18; TEMP 37.3; O2SAT 98; BMI 34.2
== END | disposition home or self-care (01) ==
LOC: SDC 11-04 12:50 → PAT 11-24 09:04
PROVIDERS: PCP Nurse Practitioner Family; Referring Provider Urology; Visit Provider Urology
DX: Z01.818 Encounter for other preprocedural examination (principal)
CPT/HCPCS: J7120; J2405

== ENCOUNTER 2021-12-24 10:00 | Outpatient (RCR) | payer MEDICARE, MEDICAID, SELFPAY ==
[2021-12-17 09:26] VITALS: BP 137/90; PULSE 101; RESP 16; TEMP 36.4
--- NOTE | 2021-12-17 11:44 | HP.PCM_ITS ---
History of Present Illness Date of Service: 12/17/21 Chief Complaint: Recurrent sacral pressure sore, Stage III. History of Wound: Ms. Crews is a 46-year-old woman with a history of spina bifida returns today with a 10 day history of breakdown and recurrence of a previous sacral pressure ulcer. She denies any known precipitating factor. Mother states that she noted it on the 07 of December. Has been applying dry dressing. No significant improvement. She typically a lot of moisture in the area and there has been. She otherwise feels well denies chills, fever nausea vomiting. [facility] Medical History (Updated 10/28/21 @ 13:07 by Mya Dinh) Acquired scoliosis Asthma Back pain BiPAP (biphasic positive airway pressure) dependence Constipation Depression Gastric reflux History of echocardiogram History of edema History of urinary self-catheterization Hx of back injury Non-smoker Spina bifida Uses wheelchair Wears glasses Home Medications multivitamin with folic acid 400 mcg tablet (Thera) 1 tab PO QHS general health 04/24/13 [History Last Taken 09/25/20 17:30] omeprazole 20 mg capsule,delayed release 20 mg PO QHS acid reflux 03/11/18 [History Last Taken 09/25/20 17:30] aspirin 81 mg chewable tablet 81 mg PO DAILY@0800 03/14/18 [Rx Last Taken 11/02/21] medroxyprogesterone 150 mg/mL intramuscular syringe 150 mg IM .[id number] 03/19/19 [History Last Taken 09/25/20 17:30] potassium citrate 15 mEq (1,620 mg) tablet,extended release 15 meq PO BID ##60 03/23/19 [Rx Last Taken 09/25/20 17:30] Bacillus coagulans 10 billion cell capsule,delayed release 1 each PO QHS [facility] 09/11/20 [History Last Taken 09/25/20 17:30] oxybutynin chloride 15 mg tablet,extended release 24 hr 15 mg PO TID BLADDER 09/11/20 [History Last Taken 09/25/20 17:30] paroxetine HCl 40 mg tablet 40 mg PO QHS DEPRESSION 09/11/20 [History Last Taken 09/25/20 17:30] polyethylene glycol 3350 17 gram oral powder packet 17 gm PO DAILY PRN PRN Constipation 09/14/20 [History Last Taken 09/25/20 17:30] budesonide 0.25 mg/2 mL suspension for nebulization 0.25 mg inhalation BID 10/28/21 [History Last Taken Unknown] sennosides 8.6 mg-docusate sodium 50 mg tablet (Stool Softener-Laxative) 1 tab- cap PO QHS 10/28/21 [History Last Taken Unknown] Allergy/AdvReac Type Severity Reaction Status Date / Time amoxicillin [From Augmentin] AdvReac Diarrhea Verified 11/04/21 13:39 azithromycin AdvReac Diarrhea Verified 11/04/21 13:39 [From Zithromax Z-Turner] ciprofloxacin [From Cipro] AdvReac Pain in Verified 11/04/21 13:39 joints clavulanic acid AdvReac Diarrhea Verified 11/04/21 13:39 [From Augmentin] Surgical History (Updated 10/28/21 @ 13:07 by Mya Dinh) History of brain shunt History of cystoscopy History of incision and drainage Hx of cholecystectomy Hx of eye surgery Hx of ileostomy Social History Smoking Status: Never smoker ROS Constitutional Constitutional: Denies body ache(s), change in weight, frequent falls, headache(s), increased appetite, poor appetite or snoring Eyes Eyes: Denies change in vision, decreased night vision, discharge from eye(s), exophthalmos, halo effect, itchy eyes, loss of central vision or loss of peripheral vision ENT HEENT: Denies dysphagia, ear discharge, facial pain, halitosis, headache(s), nasal congestion or nasal obstruction Cardiovascular Cardiovascular: Denies clubbing, cyanosis, diaphoresis, dyspnea at rest, dyspnea on exertion, easily tiring during activity or erythema on extremities Respiratory/Chest Respiratory/Chest: Denies dyspnea, dyspnea on exertion, hemoptysis, hoarseness, inability to speak, nail bed cyanosis or patience-oral cyanosis Gastrointestinal Gastrointestinal: Denies chewing difficulty, coffee ground emesis, constipation, cramping, diarrhea, dry heaves or dyspepsia Genitourinary Genitourinary: Denies abdominal discomfort, anuria, burning urination, difficulty urinating, dysuria or genital lesions Musculoskeletal Musculoskeletal: Denies joint stiffness, joint swelling, loss of height, muscle cramps, muscle spasms or muscle weakness Integumentary Integumentary: Denies erythema, furuncle, hirsutism, jaundice, lesions, nail changes or new lesions Neurologic Neurologic: Denies burning sensations, confusion, convulsions, disequilibrium, dizziness, focal weakness or frequent falls Psychiatric Psychiatric: Denies change in appetite, confusion, depression, difficulty concentrating, hallucinations, homicidal ideation or hopelessness Endocrine Endocrinology: Denies deepening of the voice, flushing, heat intolerance, palpitations, polydipsia, polyphagia or polyuria Allergic/Immunologic Allergic/Immunologic: Denies lip swelling, seasonal rhinorrhea, tongue swelling, hives, urticaria, eczemia or wheezing Vital Signs Vital Signs Vital Signs: 12/17/21 09:26 Temperature 97.5 F L Temperature Source Temporal Pulse Rate 101 H Respiratory Rate 16 Blood Pressure 137/90 H Blood Pressure Mean 105 Blood Pressure Source Monitor Blood Pressure Position Sitting Blood Pressure Location Left Forearm Oxygen Delivery Method Room Air Physical Exam Const alert, oriented x3 and no apparent distress General Appearance: cooperative and well kempt HEENT normocephalic and hearing grossly normal bilaterally Head and Scalp: normal to inspection and atraumatic Neck full ROM and supple Resp normal respiratory effort and normal air movement Effort and Inspection: able to speak in complete sentences Skin Wounds: wounds noted Neuro oriented x3, CN's II-XII intact bilaterally and moves all extremities Psych mental status grossly normal, cooperative and affect normal Appearance: grossly normal Attitude: calm Speech: normal speech Debridement Note Debridement Note Wound debrided: sacral Wound Grade/Stage: Stage III Type of Debridement: Excisional debridement Anesthesia Used: 4% Lidocaine Solution Depth: Down to and including healthy tissue and in the subcutaneous layer Percentage of wound debrided: 100 Instrument Used: 5mm curette Tissue Removed: Slough and devitalized tissue Severity: Fat Layer Exposed Amount of bleeding with debridement: Mild Bleeding Controlled with: Pressure Patient tolerated procedure: Patient tolerated procedure well Post-Debridement Measurements and Additional Note: Post-Debridement Measurements/Treatment - Nurse 1 - General Ulcer Assessment Start: 12/17/21 09:04 Freq: Status: Active Protocol: TOBIN Activity Type Activity Date Activity User E-sign Co-sign Detail Recorded Client Recorded Date Recorded By Document 12/17/21 09:26 [facility] [id number] 12/17/21 09:36 [facility] 12/17/21 09:26 - Today's Visit Information Type of service Initial Visit Arrival Mode Wheelchair Transfer Assistance Manual,Other Transfer Assist (Other) 3 assist to bed Accompanied by mom Patient Identification Verified (Name & Yes ) Patient Requires Transmission-Based No Precautions Vital Signs Temperature (97.8 F-99.1 F) 97.5 F L Temperature Source Temporal Pulse Rate (60-100) 101 H Pulse Location Monitor Respiratory Rate (12-18) 16 Respiratory rate source Observation Oxygen Delivery Method Room Air Blood Pressure (90/60-120/80) 137/90 H Blood Pressure Mean 105 Source Monitor Position Sitting Blood Pressure Location Left Forearm Pain Scale: 0-10 Numeric Is Patient Pain Free? Yes WC - Nurse 1 - General Ulcer Measurement Start: 12/17/21 09:04 Freq: Status: Active Protocol: Activity Type Activity Date Activity User E-sign Co-sign Detail Recorded Client Recorded Date Recorded By Document 12/17/21 09:26 [facility] [id number] 12/17/21 09:36 [facility] 12/17/21 09:26 Wound Center Nurse 1 #6- lumbar -Combined with other wound No -Current Size (cm) - Length 1.4 -Current Size (cm) - Width 1.1 -Current Size (cm) - Depth 0.1 -Total Square Cm 1.54 -Date of Last Picture (Recall this 12/17/21 field) -Photo Taken Yes -Epithelialization None Present -Tunneling No -Undermining/Tunneling No -Circular Undermining No -Exudate Amt Medium -Exudate Type Serosanguineous -Wound Margin Distinct, Outline Attached -Granulation Amt Medium (34-66%) -Granulation Quality Red -Slough/Fibrin Yes -Necrosis Amt Medium (34-66%) -Necrotic Tissue Type Adherent Slough -Texture (Patience-wound Skin Appearance) Assessed, Scarring -Moisture (Patience-wound Skin Appearance) Assessed, Maceration -Color (Patience-wound Skin Appearance) Assessed, Erythema -Temperature (Patience-wound Skin No Abnormality Appearance) (Pt Warm) -Tenderness on Palpation (Patience-wound No Skin Appearance) -Ulcer Cleansing Rinsed/ Irrigated with Saline -Foul Odor after Cleansing No -Anesthetic Used 5% Lidocaine Gel WC - Nurse 2 - General Ulcer CM Notes Start: 12/17/21 09:04 Freq: Status: Active Protocol: Activity Type Activity Date Activity User E-sign Co-sign Detail Recorded Client Recorded Date Recorded By Document 12/17/21 09:43 MW [id number] 12/17/21 09:48 MW 12/17/21 09:43 Wound Center Nurse 2 -Time 09:43 -Correct Patient Yes -Correct Side, Site, Position Yes -Correct Procedure Yes -Procedure Performed Yes -Type of Procedure Debridement -Clinical Debridement Subcutaneous -Tissue Removed Subcutaneous -Post Debridement (cm) - Length 1.5 -Post Debridement (cm) - Width 1.4 -Post Debridement (cm) - Depth 0.1 -Total Square (Post) (cm) 2.10 -Area of Debridement (cm) - Length 1.5 -Area of Debridement (cm) - Width 1.4 -Total Square (Area) (cm) 2.10 -Tunneling No -Undermining/Tunneling No -Circular Undermining No -Wound/Ulcer Outcome Not Healed -Ulcer Cleansing Rinsed/ Irrigated with Saline -Foul Odor after Cleansing No -Bioengineered Tissue No -Bleeding Controlled with Pressure -Treatment Response Procedure Tolerated Well -Offloading No -Debridement - Subq, 1st 20sq cm Yes Pain Scale: 0-10 Numeric Is Patient Pain Free? Yes WC - Nurse 3 - General Ulcer D/C NN Start: 12/17/21 09:04 Freq: Status: Active Protocol: Activity Type Activity Date Activity User E-sign Co-sign Detail Recorded Client Recorded Date Recorded By Document 12/17/21 09:49 MW [id number] 12/17/21 09:50 MW 12/17/21 09:49 Wound Care Nurse 3 #6- lumbar -Ulcer Cleansing Rinsed/ Irrigated with Saline -Foul Odor after Cleansing No -Negative Pressure Wound Therapy N/A -Primary Dressing Applied Mepilex Border, Promogran -Mepilex Border 1 -Promogran 1 Pain Scale: 0-10 Numeric Is Patient Pain Free? Yes Teaching: Wound Center Dressing Your Wound -Person Taught Patient,Family -Teaching Method Discussion -Response to teaching Verbalize understanding WC - Visit Discharge Discharge Condition Stable Ambulatory Status Wheelchair Transportation Private Auto Accompanied by mom Medication Reconcilliation completed & No provided to patient/care provider Clinical Summary of Care Provided Yes Charges/Coding Visit Charges Office Visits / Consults: 83970 OV L3 Est Procedures Integumentary 111xxx-113xx: [id number] Sherlyn subq tissue 20 sq cm/< Assessment/Plan Assessment/Plan (1) Pressure ulcer of sacral region, stage 3: CODE(S): L89.153 - Pressure ulcer of sacral region, stage 3 (2) Spina bifida: CODE(S): Q05.9 - Spina bifida, unspecified PLAN: Plan Recurrent sacral pressure ulcer. Debridement done as documented above, procedure was well-tolerated. Promogran daily, cover with Adaptic and secure with foam dressing/Optifoam. Moisture control strongly recommended. Offloading also discussed. Increase protein intake. They were advised to call with any further questions or concerns. Follow-up in 1 week. This note was generated with [employer] dictation software. It may contain incorrect words, spelling, and punctuation that were not noted in checking the note before signing.
[2021-12-24 10:08] VITALS: BP 132/93; PULSE 95; RESP 16; TEMP 36.4
--- NOTE | 2021-12-24 10:30 | PCM.WC.PN ---
History of Present Illness Date of Service: 12/24/21 Chief Complaint: Recurrent sacral pressure sore, Stage III. History of Wound: Ms. Crews is a 46-year-old woman with a history of spina bifida returns today with a 10 day history of breakdown and recurrence of a previous sacral pressure ulcer. She denies any known precipitating factor. Mother states that she noted it on the 07 of December. Has been applying dry dressing. No significant improvement. She typically a lot of moisture in the area and there has been. She otherwise feels well denies chills, fever nausea vomiting. Progress of Wound: Improving. Has been applying Promogran with Adaptic. No new concerns reported. Objective Data Objective Data Vital Signs: Vital Signs Temp Pulse Resp BP O2 Del Method 97.6 F L 95 16 132/93 H Room Air 12/24/21 10:08 12/24/21 10:08 12/24/21 10:08 12/24/21 10:08 12/24/21 10:08 Oxygen Delivery Method Room Air Charges/Coding Procedures Integumentary 111xxx-113xx: 59247 Sherlyn subq tissue 20 sq cm/< Physical Exam Const alert, oriented x3 and no apparent distress General Appearance: cooperative and well kempt HEENT normocephalic and hearing grossly normal bilaterally Head and Scalp: normal to inspection and atraumatic Neck full ROM and supple Resp normal respiratory effort and normal air movement Effort and Inspection: able to speak in complete sentences Skin Wounds: wounds noted Neuro oriented x3, CN's II-XII intact bilaterally and moves all extremities Psych mental status grossly normal, cooperative and affect normal Appearance: grossly normal Attitude: calm Speech: normal speech Debridement Note Debridement Note Wound debrided: Sacral Wound Grade/Stage: Stage III Type of Debridement: Excisional debridement Anesthesia Used: 4% Lidocaine Solution Depth: Down to and including healthy tissue and in the subcutaneous layer Percentage of wound debrided: 100 Instrument Used: 5mm curette Tissue Removed: Slough and devitalized tissue Severity: Fat Layer Exposed Amount of bleeding with debridement: Mild Bleeding Controlled with: Pressure Patient tolerated procedure: Patient tolerated procedure well Post-Debridement Measurements and Additional Note: Post-Debridement Measurements/Treatment JESSICA - Nurse 1 - General Ulcer Assessment Start: 12/17/21 09:04 Freq: Status: Active Protocol: TOBIN Activity Type Activity Date Activity User E-sign Co-sign Detail Recorded Client Recorded Date Recorded By Document 12/17/21 09:26 [facility] [id number] 12/17/21 09:36 [facility] Document 12/24/21 10:08 [facility] [id number] 12/24/21 10:16 [facility] 12/17/21 12/24/21 09:26 10:08 - Today's Visit Information Type of service Initial Visit Follow-up Visit (Physician/SENIOR FOREMAN ) Arrival Mode Wheelchair Wheelchair Transfer Assistance Manual,Other Other Transfer Assist (Other) 3 assist to bed 2 assist- rolls onto bed Accompanied by mom mother Patient Identification Verified (Name & Yes Yes ) Patient Requires Transmission-Based No No Precautions Vital Signs Temperature (97.8 F-99.1 F) 97.5 F L 97.6 F L Temperature Source Temporal Temporal Pulse Rate (60-100) 101 H 95 Pulse Location Monitor Monitor Respiratory Rate (12-18) 16 16 Respiratory rate source Observation Observation Oxygen Delivery Method Room Air Room Air Blood Pressure (90/60-120/80) 137/90 H 132/93 H Blood Pressure Mean (mm Hg) 105 106 Source Monitor Monitor Position Sitting Sitting Blood Pressure Location Left Forearm Right Forearm History Since Last Visit- (Skip if this is Patient's initial visit) Have you changed medications since your No last visit? Any new allergies or adverse reactions No Had a fall/change in ADL's that may No increase risk of falls Signs or symptoms of abuse and/or No neglect since last visit Have you been in the hospital since your No last visit? Has dressing in place as prescribed Yes Has compression in place as prescribed N/A Has offloadiing in place as prescribed N/A Experienced any changes in pain level or No management Left Footwear Other Footwear (Comment) Right Footwear Other Footwear (Comment) Other Footwear socks Pain Scale: 0-10 Numeric Is Patient Pain Free? Yes Yes - Nurse 1 - General Ulcer Measurement Start: 12/17/21 09:04 Freq: Status: Active Protocol: Activity Type Activity Date Activity User E-sign Co-sign Detail Recorded Client Recorded Date Recorded By Document 12/17/21 09:26 [facility] [id number] 12/17/21 09:36 [facility] Document 12/24/21 10:08 [facility] [id number] 12/24/21 10:16 [facility] 12/17/21 12/24/21 09:26 10:08 Wound Center Nurse 1 #6- lumbar -Combined with other wound No No -Current Size (cm) - Length 1.4 1.3 -Current Size (cm) - Width 1.1 1.1 -Current Size (cm) - Depth 0.1 0.2 -Total Square Cm 1.54 1.43 -Date of Last Picture (Recall this 12/17/21 12/24/21 field) -Photo Taken Yes Yes -Epithelialization None Present None Present -Tunneling No No -Undermining/Tunneling No No -Circular Undermining No No -Exudate Amt Medium Small -Exudate Type Serosanguineous Serous -Wound Margin Distinct, Distinct, Outline Outline Attached Attached -Granulation Amt Medium (34-66%) None Present (0 %) -Granulation Quality Red -Slough/Fibrin Yes Yes -Necrosis Amt Medium (34-66%) Large (67-100%) -Necrotic Tissue Type Adherent Slough Adherent Slough -Texture (Patience-wound Skin Appearance) Assessed, Assessed Scarring -Moisture (Pateince-wound Skin Appearance) Assessed, Assessed, Maceration Maceration -Color (Patience-wound Skin Appearance) Assessed, Assessed,Palor Erythema -Temperature (Patience-wound Skin No Abnormality No Abnormality Appearance) (Pt Warm) (Pt Warm) -Tenderness on Palpation (Patience-wound No No Skin Appearance) -Ulcer Cleansing Rinsed/ Rinsed/ Irrigated with Irrigated with Saline Saline -Foul Odor after Cleansing No No -Anesthetic Used 5% Lidocaine 5% Lidocaine Gel Gel WC - Nurse 2 - General Ulcer CM Notes Start: 12/17/21 09:04 Freq: Status: Active Protocol: Activity Type Activity Date Activity User E-sign Co-sign Detail Recorded Client Recorded Date Recorded By Document 12/17/21 09:43 MW [id number] 12/17/21 09:48 MW Document 12/24/21 10:20 MW [id number] 12/24/21 10:23 MW 12/17/21 12/24/21 09:43 10:20 Wound Center Nurse 2 #6- lumbar -Time 09:43 10:20 -Correct Patient Yes Yes -Correct Side, Site, Position Yes Yes -Correct Procedure Yes Yes -Procedure Performed Yes Yes -Type of Procedure Debridement Debridement -Clinical Debridement Subcutaneous Subcutaneous -Tissue Removed Subcutaneous Subcutaneous -Post Debridement (cm) - Length 1.5 1.3 -Post Debridement (cm) - Width 1.4 1.2 -Post Debridement (cm) - Depth 0.1 0.1 -Total Square (Post) (cm) 2.10 1.56 -Area of Debridement (cm) - Length 1.5 1.3 -Area of Debridement (cm) - Width 1.4 1.2 -Total Square (Area) (cm) 2.10 1.56 -Tunneling No No -Undermining/Tunneling No No -Circular Undermining No No -Wound/Ulcer Outcome Not Healed Not Healed -Ulcer Cleansing Rinsed/ Rinsed/ Irrigated with Irrigated with Saline Saline -Foul Odor after Cleansing No No -Bioengineered Tissue No No -Bleeding Controlled with Pressure Pressure -Treatment Response Procedure Procedure Tolerated Well Tolerated Well -Offloading No No -Debridement - Subq, 1st 20sq cm Yes Yes Pain Scale: 0-10 Numeric Is Patient Pain Free? Yes Yes - Nurse 3 - General Ulcer D/C NN Start: 12/17/21 09:04 Freq: Status: Active Protocol: Activity Type Activity Date Activity User E-sign Co-sign Detail Recorded Client Recorded Date Recorded By Document 12/17/21 09:49 MW [id number] 12/17/21 09:50 MW Document 12/24/21 10:23 MW [id number] 12/24/21 10:24 MW 12/17/21 12/24/21 09:49 10:23 Wound Care Nurse 3 #6- lumbar -Ulcer Cleansing Rinsed/ Rinsed/ Irrigated with Irrigated with Saline Saline -Foul Odor after Cleansing No No -Negative Pressure Wound Therapy N/A N/A -Primary Dressing Applied Mepilex Border, Promogran -Other Dressing promogran -Other Covering [place] SAP silicone bordered 4x4 foam -Mepilex Border 1 -Promogran 1 Treatment Response Procedure Tolerated Well Pain Scale: 0-10 Numeric Is Patient Pain Free? Yes Yes Teaching: Wound Center Dressing Your Wound -Person Taught Patient,Family Patient,Family -Teaching Method Discussion Discussion, Demonstration -Response to teaching Verbalize Verbalize understanding understanding WC - Visit Discharge Discharge Condition Stable Stable Ambulatory Status Wheelchair Wheelchair Transportation Private Auto Private Auto Accompanied by mom mom Medication Reconcilliation completed & No No provided to patient/care provider Clinical Summary of Care Provided Yes Yes Assessment/Plan Assessment/Plan (1) Pressure ulcer of sacral region, stage 3: CODE(S): L89.153 - Pressure ulcer of sacral region, stage 3 (2) Spina bifida: CODE(S): Q05.9 - Spina bifida, unspecified PLAN: Plan Improving. Debridement done as documented above, procedure was well-tolerated. Continue Promogran daily, cover with Adaptic and secure with foam dressing/Optifoam. Moisture control strongly recommended. Offloading also discussed. Increase protein intake. They were advised to call with any further questions or concerns. Follow-up in 2 weeks. This note was generated with [employer] dictation software. It may contain incorrect words, spelling, and punctuation that were not noted in checking the note before signing.
== END 2022-01-03 23:59 | disposition home or self-care (01) ==
LOC: WC 10:00
PROVIDERS: PCP Nurse Practitioner Family; Visit Provider Internal Medicine
DX: L89.153 Pressure ulcer of sacral region, stage 3 (principal); Q05.9 Spina bifida, unspecified; Z79.51 Long term (current) use of inhaled steroids; Z79.82 Long term (current) use of aspirin
CPT/HCPCS: 11042; 99213; G0463

== ENCOUNTER → 2022-01-19 | Outpatient (CLI) | payer MEDICARE, MEDICAID, SELFPAY ==
--- NOTE | 2022-01-19 12:12 | RAD_ITS ---
STUDY: X-RAY - LUMBAR SPINE REASON FOR EXAM: Female, 46 years old. SACRAL ULCER TECHNIQUE: 2 view(s) of the lumbar spine were obtained. COMPARISON: CT of abdomen and pelvis dated OCTOBER 12, 2021 FINDINGS: The lumbar lordosis is straightened. There is osseous fusion across the disc spaces from the thoracic spine down to L4-L5. Spinal rods and cerclage wires are stable throughout the lower thoracic spine down to the bilateral SI joints. Reidentification of fracturing and displacement of the distal one third aspect of the right spinal rhonda across the sacral ala region. No acute fracture is seen. No aggressive process is present. 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 No significant scoliosis is present. No visualized osteomyelitis. The soft tissue structures are unremarkable. RAD/Lumbar Spine 2 or 3 Views IMPRESSION: Degenerative changes of the spine, as detailed above. Electronically Signed: Chung Vera MD at 14:45 EDT ,
--- NOTE | 2022-01-19 12:15 | RAD_ITS ---
STUDY: X-RAY - SACRUM/COCCYX REASON FOR EXAM: Female, 46 years old. SACRAL ULCER TECHNIQUE: 3 view(s) of the sacrum and coccyx were obtained. COMPARISON: None. FINDINGS: The bony structures are demineralized. No visualized acute sacral fracture or evidence of osteomyelitis or a destructive process. Angulation and hyperinflation of the coccygeal segments is chronic. Spinal hardware and chronic postoperative and degenerative changes of the spine noted. Mild osteophytic changes of the SI joints noted. The spinal rods terminate at the inferior aspects of the bilateral SI joints. The distal one third aspect of the right spinal rhonda is fractured and displaced, however this is a chronic finding. No visualized subcutaneous gas. The presacral soft tissue structures are unremarkable. RAD/Sacrum-Coccyx min 2 Views IMPRESSION: No acute fracture or evidence of osteomyelitis Electronically Signed: Chung Vera MD at 15:45 EDT ,
== END | disposition home or self-care (01) ==
LOC: RAD 12:09
PROVIDERS: PCP Nurse Practitioner Family; Referring Provider Internal Medicine; Visit Provider Internal Medicine
DX: L98.419 Non-pressure chronic ulcer of buttock with unspecified severity (principal)
CPT/HCPCS: 72100; 72220

== ENCOUNTER 2022-01-28 13:15 | Outpatient (RCR) | payer MEDICARE, MEDICAID, SELFPAY ==
[2022-01-04 00:39] VITALS: BP 132/93; PULSE 95; RESP 16; TEMP 36.4
[2022-01-07 10:32] VITALS: BP 139/94; PULSE 118; RESP 16; TEMP 36.8
--- NOTE | 2022-01-07 13:44 | PN.PCM_ITS ---
History of Present Illness Date of Service: 01/07/22 Chief Complaint: Recurrent sacral pressure sore, Stage III. History of Wound: Ms. Crews is a 46-year-old woman with a history of spina bifida returns today with a 10 day history of breakdown and recurrence of a previous sacral pressure ulcer. She denies any known precipitating factor. Mother states that she noted it on the 07 of December. Has been applying dry dressing. No significant improvement. She typically a lot of moisture in the area and there has been. She otherwise feels well denies chills, fever nausea vomiting. Progress of Wound: Patience wound maceration. They state that dressing changes have been done as recommended. Currently applying Promogran Objective Data Objective Data Vital Signs: Vital Signs Temp Pulse Resp BP O2 Del Method 98.2 F 118 H 16 139/94 H Room Air 01/07/22 10:32 01/07/22 10:32 01/07/22 10:32 01/07/22 10:32 01/07/22 10:32 Oxygen Delivery Method Room Air Charges/Coding Procedures Integumentary 111xxx-113xx: 57434 Sherlyn subq tissue 20 sq cm/< Physical Exam Const alert, oriented x3 and no apparent distress General Appearance: cooperative and well kempt HEENT normocephalic and hearing grossly normal bilaterally Head and Scalp: normal to inspection and atraumatic Neck full ROM and supple Resp normal respiratory effort and normal air movement Effort and Inspection: able to speak in complete sentences Skin Wounds: wounds noted Neuro oriented x3, CN's II-XII intact bilaterally and moves all extremities Psych mental status grossly normal, cooperative and affect normal Appearance: grossly normal Attitude: calm Speech: normal speech Debridement Note Debridement Note Wound debrided: Sacral Type of Debridement: Excisional debridement Anesthesia Used: 4% Lidocaine Solution Depth: Down to and including healthy tissue and in the subcutaneous layer Percentage of wound debrided: 100 Instrument Used: 5mm curette Tissue Removed: Slough and devitalized tissue Severity: Fat Layer Exposed Amount of bleeding with debridement: Mild Bleeding Controlled with: Pressure Patient tolerated procedure: Patient tolerated procedure well Post-Debridement Measurements and Additional Note: Post-Debridement Measurements/Treatment JESSICA - Nurse 1 - General Ulcer Assessment Start: 01/07/22 10:30 Freq: Status: Active Protocol: TOBIN Activity Type Activity Date Activity User E-sign Co-sign Detail Recorded Client Recorded Date Recorded By Document 01/07/22 10:32 [facility] [id number] 01/07/22 10:40 [facility] 01/07/22 10:32 - Today's Visit Information Type of service Follow-up Visit (Physician/GROCERY MANAGER ) Arrival Mode Ambulatory Transfer Assistance None Patient Identification Verified (Name & Yes ) Patient Requires Transmission-Based No Precautions Vital Signs Temperature (97.8 F-99.1 F) 98.2 F Temperature Source Temporal Pulse Rate (60-100) 118 H Pulse Location Monitor Respiratory Rate (12-18) 16 Respiratory rate source Observation Oxygen Delivery Method Room Air Blood Pressure (90/60-120/80) 139/94 H Blood Pressure Mean (mm Hg) 109 Source Monitor Position Sitting Blood Pressure Location Left Arm History Since Last Visit- (Skip if this is Patient's initial visit) Have you changed medications since your No last visit? Any new allergies or adverse reactions No Had a fall/change in ADL's that may No increase risk of falls Signs or symptoms of abuse and/or No neglect since last visit Have you been in the hospital since your No last visit? Has dressing in place as prescribed Yes Has compression in place as prescribed N/A Has offloadiing in place as prescribed N/A Experienced any changes in pain level or No management Other Footwear SOCKS BOTH FEET Pain Scale: 0-10 Numeric Is Patient Pain Free? Yes - Nurse 1 - General Ulcer Measurement Start: 01/07/22 10:30 Freq: Status: Active Protocol: Activity Type Activity Date Activity User E-sign Co-sign Detail Recorded Client Recorded Date Recorded By Document 01/07/22 10:32 [facility] [id number] 01/07/22 10:40 [facility] 01/07/22 10:32 Wound Center Nurse 1 #6- lumbar cluster -Combined with other wound No -Current Size (cm) - Length 2.4 -Current Size (cm) - Width 1.3 -Current Size (cm) - Depth 0.3 -Total Square Cm 3.12 -Date of Last Picture (Recall this 01/07/22 field) -Photo Taken Yes -Epithelialization None Present -Tunneling No -Undermining/Tunneling No -Circular Undermining No -Exudate Amt Medium -Exudate Type Serosanguineous -Wound Margin Distinct, Outline Attached -Granulation Amt Small (1-33%) -Granulation Quality Red -Slough/Fibrin Yes -Necrosis Amt Large (67-100%) -Necrotic Tissue Type Adherent Slough -Texture (Patience-wound Skin Appearance) Assessed, Scarring -Moisture (Patience-wound Skin Appearance) Assessed, Maceration -Color (Patience-wound Skin Appearance) Assessed, Erythema,Palor -Temperature (Patience-wound Skin No Abnormality Appearance) (Pt Warm) -Tenderness on Palpation (Patience-wound No Skin Appearance) -Ulcer Cleansing Rinsed/ Irrigated with Saline -Foul Odor after Cleansing No -Anesthetic Used 5% Lidocaine Gel WC - Nurse 2 - General Ulcer CM Notes Start: 01/07/22 10:30 Freq: Status: Active Protocol: Activity Type Activity Date Activity User E-sign Co-sign Detail Recorded Client Recorded Date Recorded By Document 01/07/22 10:51 Desktop 01/07/22 10:58 01/07/22 10:51 Wound Center Nurse 2 -Time 10:53 -Correct Patient Yes -Correct Side, Site, Position Yes -Correct Procedure Yes -Procedure Performed Yes -Type of Procedure Debridement -Clinical Debridement Subcutaneous -Tissue Removed Subcutaneous -Post Debridement (cm) - Length 4 -Post Debridement (cm) - Width 5 -Post Debridement (cm) - Depth 0.2 -Total Square (Post) (cm) 20 -Area of Debridement (cm) - Length 4 -Area of Debridement (cm) - Width 5 -Total Square (Area) (cm) 20 -Tunneling No -Undermining/Tunneling No -Circular Undermining No -Wound/Ulcer Outcome Not Healed -Ulcer Cleansing Rinsed/ Irrigated with Saline -Foul Odor after Cleansing No -Bioengineered Tissue No -Bleeding Controlled with Pressure -Treatment Response Procedure Tolerated Well -Offloading No -Debridement - Subq, 1st 20sq cm Yes Pain Scale: 0-10 Numeric Is Patient Pain Free? Yes JESSICA - Nurse 3 - General Ulcer D/C NN Start: 01/07/22 10:30 Freq: Status: Active Protocol: Activity Type Activity Date Activity User E-sign Co-sign Detail Recorded Client Recorded Date Recorded By Document 01/07/22 11:11 DL [id number] 01/07/22 11:15 DL 01/07/22 11:11 Wound Care Nurse 3 #6- lumbar cluster -Ulcer Cleansing Rinsed/ Irrigated with Saline -Foul Odor after Cleansing No -Other Dressing promogran -Other Covering ABD Treatment Response Procedure Tolerated Well Pain Scale: 0-10 Numeric Is Patient Pain Free? Yes WC - Visit Discharge Discharge Condition Stable Ambulatory Status Wheelchair Transportation Private Auto Facility Type Framing Machine Tender Care Facility Orders Sent Yes Assessment/Plan Assessment/Plan (1) Pressure ulcer of sacral region, stage 3: CODE(S): L89.153 - Pressure ulcer of sacral region, stage 3 (2) Spina bifida: CODE(S): Q05.9 - Spina bifida, unspecified PLAN: Plan Some worsening noted with periwound maceration. Debridement done as documented above, procedure was well-tolerated. Continue Promogran cover with Adaptic and ABD. change daily to twice daily depending on drainage. Moisture control strongly recommended. Offloading also discussed. Increase protein intake. They were advised to call with any further questions or concerns. Follow-up in 1 week. This note was generated with [employer] dictation software. It may contain incorrect words, spelling, and punctuation that were not noted in checking the note before signing.
[2022-01-14 10:32] VITALS: BP 132/91; PULSE 106; RESP 20; TEMP 36.8
--- NOTE | 2022-01-14 12:45 | PN.PCM_ITS ---
History of Present Illness Date of Service: 01/14/22 Chief Complaint: Recurrent sacral pressure sore, Stage III. History of Wound: Ms. Crews is a 46-year-old woman with a history of spina bifida returns today with a 10 day history of breakdown and recurrence of a previous sacral pressure ulcer. She denies any known precipitating factor. Mother states that she noted it on the 07 of December. Has been applying dry dressing. No significant improvement. She typically a lot of moisture in the area and there has been. She otherwise feels well denies chills, fever nausea vomiting. Progress of Wound: New Maulik sacral ulceration. Prior maceration is improved compared to last week however now presents with a new area of ulceration. Concern for pressure over a prior implant. Objective Data Objective Data Vital Signs: Vital Signs Temp Pulse Resp BP O2 Del Method 98.2 F 106 H 20 H 132/91 H Room Air 01/14/22 10:32 01/14/22 10:32 01/14/22 10:32 01/14/22 10:32 01/07/22 10:32 Oxygen Delivery Method Room Air Charges/Coding Procedures Integumentary 111xxx-113xx: 97109 Sherlyn subq tissue 20 sq cm/< Physical Exam Const alert, oriented x3 and no apparent distress General Appearance: cooperative and well kempt HEENT normocephalic and hearing grossly normal bilaterally Head and Scalp: normal to inspection and atraumatic Neck full ROM and supple Resp normal respiratory effort Effort and Inspection: able to speak in complete sentences Skin Wounds: wounds noted Neuro oriented x3, CN's II-XII intact bilaterally and moves all extremities Psych mental status grossly normal, cooperative and affect normal Appearance: grossly normal Attitude: calm Speech: normal speech Debridement Note Debridement Note Wound debrided: Sacral cluster Type of Debridement: Excisional debridement Anesthesia Used: 4% Lidocaine Solution Depth: Down to and including healthy tissue and in the subcutaneous layer Percentage of wound debrided: 100 Instrument Used: 5mm curette Tissue Removed: Slough and devitalized tissue Severity: Fat Layer Exposed Amount of bleeding with debridement: Mild Bleeding Controlled with: Pressure Patient tolerated procedure: Patient tolerated procedure well Post-Debridement Measurements and Additional Note: Post-Debridement Measurements/Treatment JESSICA - Nurse 1 - General Ulcer Assessment Start: 01/07/22 10:30 Freq: Status: Active Protocol: TOBIN Activity Type Activity Date Activity User E-sign Co-sign Detail Recorded Client Recorded Date Recorded By Document 01/07/22 10:32 [facility] [id number] 01/07/22 10:40 [facility] Document 01/14/22 10:32 DL [id number] 01/14/22 10:39 DL 01/07/22 01/14/22 10:32 10:32 - Today's Visit Information Type of service Follow-up Visit Follow-up Visit (Physician/HALVER MACHINE OPERATOR (Physician/HALVER MACHINE OPERATOR ) ) Arrival Mode Ambulatory Wheelchair Transfer Assistance None Manual Transfer Assist (Other) x2 Patient Identification Verified (Name & Yes Yes ) Patient Requires Transmission-Based No No Precautions Vital Signs Temperature (97.8 F-99.1 F) 98.2 F 98.2 F Temperature Source Temporal Temporal Pulse Rate (60-100) 118 H 106 H Pulse Location Monitor Monitor Respiratory Rate (12-18) 16 20 H Respiratory rate source Observation Observation Oxygen Delivery Method Room Air Blood Pressure (90/60-120/80) 139/94 H 132/91 H Blood Pressure Mean (mm Hg) 109 104 Source Monitor Monitor Position Sitting Blood Pressure Location Left Arm History Since Last Visit- (Skip if this is Patient's initial visit) Have you changed medications since your No No last visit? Any new allergies or adverse reactions No No Had a fall/change in ADL's that may No No increase risk of falls Signs or symptoms of abuse and/or No No neglect since last visit Have you been in the hospital since your No No last visit? Has dressing in place as prescribed Yes Yes Has compression in place as prescribed N/A N/A Has offloadiing in place as prescribed N/A Yes Experienced any changes in pain level or No No management Other Footwear SOCKS BOTH FEET Pain Scale: 0-10 Numeric Is Patient Pain Free? Yes Yes - Nurse 1 - General Ulcer Measurement Start: 01/07/22 10:30 Freq: Status: Active Protocol: Activity Type Activity Date Activity User E-sign Co-sign Detail Recorded Client Recorded Date Recorded By Document 01/07/22 10:32 [facility] [id number] 01/07/22 10:40 [facility] Document 01/14/22 10:32 DL [id number] 08/11/22 10:39 DL 01/07/22 01/14/22 10:32 10:32 Wound Center Nurse 1 #6- sacral cluster -Combined with other wound No -Current Size (cm) - Length 2.4 4 -Current Size (cm) - Width 1.3 6 -Current Size (cm) - Depth 0.3 0.2 -Total Square Cm 3.12 24 -Date of Last Picture (Recall this 01/07/22 field) -Photo Taken Yes No -Epithelialization None Present -Tunneling No -Undermining/Tunneling No -Circular Undermining No -Exudate Amt Medium Medium -Exudate Type Serosanguineous Serosanguineous -Wound Margin Distinct, Distinct, Outline Outline Attached Attached -Granulation Amt Small (1-33%) Small (1-33%) -Granulation Quality Red [place] -Slough/Fibrin Yes -Necrosis Amt Large (67-100%) Medium (34-66%) -Necrotic Tissue Type Adherent Slough Adherent Slough -Structure Exposed N/A -Texture (Patience-wound Skin Appearance) Assessed, Scarring Scarring -Moisture (Patience-wound Skin Appearance) Assessed, No Abnormality Maceration -Color (Patience-wound Skin Appearance) Assessed, No Abnormality Erythema,Palor -Temperature (Patience-wound Skin No Abnormality No Abnormality Appearance) (Pt Warm) (Pt Warm) -Tenderness on Palpation (Patience-wound No No Skin Appearance) -Ulcer Cleansing Rinsed/ Rinsed/ Irrigated with Irrigated with Saline Saline -Foul Odor after Cleansing No No -Anesthetic Used 5% Lidocaine 5% Lidocaine Gel Gel WC - Nurse 2 - General Ulcer CM Notes Start: 01/07/22 10:30 Freq: Status: Active Protocol: Activity Type Activity Date Activity User E-sign Co-sign Detail Recorded Client Recorded Date Recorded By Document 01/07/22 10:51 Desktop 01/07/22 10:58 Document 01/14/22 10:57 MW [id number] 01/14/22 11:07 MW 01/07/22 01/14/22 10:51 10:57 Wound Center Nurse 2 #6- sacral cluster -Time 10:53 10:57 -Correct Patient Yes Yes -Correct Side, Site, Position Yes Yes -Correct Procedure Yes Yes -Procedure Performed Yes Yes -Type of Procedure Debridement Debridement -Clinical Debridement Subcutaneous Subcutaneous -Tissue Removed Subcutaneous Subcutaneous -Post Debridement (cm) - Length 4 5.0 -Post Debridement (cm) - Width 5 6.0 -Post Debridement (cm) - Depth 0.2 0.2 -Total Square (Post) (cm) 20 30.00 -Area of Debridement (cm) - Length 4 5.0 -Area of Debridement (cm) - Width 5 6.0 -Total Square (Area) (cm) 20 30.00 -Tunneling No No -Undermining/Tunneling No No -Circular Undermining No No -Wound/Ulcer Outcome Not Healed Not Healed -Ulcer Cleansing Rinsed/ Rinsed/ Irrigated with Irrigated with Saline Saline -Foul Odor after Cleansing No No -Bioengineered Tissue No No -Bleeding Controlled with Pressure Pressure -Treatment Response Procedure Procedure Tolerated Well Tolerated Well -Offloading No No -Debridement - Subq, 1st 20sq cm Yes Yes -Debridement, SubQ, ea addt'l 20sq cm 1 or part thereof Pain Scale: 0-10 Numeric Is Patient Pain Free? Yes Yes - Nurse 3 - General Ulcer D/C NN Start: 01/07/22 10:30 Freq: Status: Active Protocol: Activity Type Activity Date Activity User E-sign Co-sign Detail Recorded Client Recorded Date Recorded By Document 01/07/22 11:11 DL [id number] 01/07/22 11:15 DL Document 01/14/22 11:21 DL [id number] 01/14/22 11:23 DL 01/07/22 01/14/22 11:11 11:21 Wound Care Nurse 3 #6- sacral cluster -Ulcer Cleansing Rinsed/ Rinsed/ Irrigated with Irrigated with Saline Saline -Foul Odor after Cleansing No No -Other Dressing promogran hydrogel -Primary Dressing Covered/Secured with Dry Gauze, Secured with Tape -Other Covering ABD ABD Treatment Response Procedure Tolerated Well Pain Scale: 0-10 Numeric Is Patient Pain Free? Yes Yes - Visit Discharge Discharge Condition Stable Stable Ambulatory Status Wheelchair Wheelchair Transportation Private Auto Private Auto Notes: pt to start Santyl as soon as it is obtained from pharm. Facility Type [facility]idential Care Facility Orders Sent Yes Assessment/Plan Assessment/Plan (1) Pressure ulcer of sacral region, stage 3: CODE(S): L89.153 - Pressure ulcer of sacral region, stage 3 (2) Spina bifida: CODE(S): Q05.9 - Spina bifida, unspecified PLAN: Plan New area of ulceration, clustered. Significant slough. Concern for pressure from surgical device/rhonda. Imaging ordered. Switch to Santyl to both ulcers however due to worsening, will apply for Epifix which she has used in the past and healed really well on it. Recommendation sent over to facility on repositioning often. Continue adequate protein intake, vitamin C and zinc. Their questions were answered and they were advised to call with any further questions or concerns. This note was generated with [employer] dictation software. It may contain incorrect words, spelling, and punctuation that were not noted in checking the note before signing.
[2022-01-21 10:47] VITALS: BP 134/83; PULSE 112; RESP 20; TEMP 37.1
--- NOTE | 2022-01-21 13:58 | PN.PCM_ITS ---
History of Present Illness Date of Service: 01/21/22 Chief Complaint: Recurrent sacral pressure sore, Stage III. History of Wound: Ms. Crews is a 46-year-old woman with a history of spina bifida returns today with a 10 day history of breakdown and recurrence of a previous sacral pressure ulcer. She denies any known precipitating factor. Mother states that she noted it on the 07 of December. Has been applying dry dressing. No significant improvement. She typically a lot of moisture in the area and there has been. She otherwise feels well denies chills, fever nausea vomiting. Progress of Wound: No significant change in the past week. Now approved for epi fix. Subjective Subjective No new concerns at this time. Objective Data Objective Data Vital Signs: Vital Signs Temp Pulse Resp BP O2 Del Method 98.8 F 112 H 20 H 134/83 H Room Air 01/21/22 10:47 01/21/22 10:47 01/21/22 10:47 01/21/22 10:47 01/07/22 10:32 Oxygen Delivery Method Room Air Charges/Coding Procedures Integumentary 150xxx-152xx: 07156 Skin sub graft trnk/arm/leg Physical Exam Const alert, oriented x3 and no apparent distress General Appearance: cooperative and well kempt HEENT normocephalic and hearing grossly normal bilaterally Head and Scalp: normal to inspection and atraumatic Neck full ROM and supple Resp normal respiratory effort Effort and Inspection: able to speak in complete sentences Skin Wounds: wounds noted Neuro oriented x3, CN's II-XII intact bilaterally and moves all extremities Psych mental status grossly normal, cooperative and affect normal Appearance: grossly normal Attitude: calm Speech: normal speech Debridement Note Debridement Note Wound debrided: Sacral Wound Grade/Stage: Stage III Type of Debridement: Excisional debridement Anesthesia Used: 4% Lidocaine Solution Depth: Down to and including healthy tissue and in the subcutaneous layer Percentage of wound debrided: 100 Instrument Used: 5mm curette Tissue Removed: Slough and devitalized tissue Severity: Fat Layer Exposed Amount of bleeding with debridement: Mild Bleeding Controlled with: Pressure Patient tolerated procedure: Patient tolerated procedure well Post-Debridement Measurements and Additional Note: Post-Debridement Measurements/Treatment JESSICA - Nurse 1 - General Ulcer Assessment Start: 01/07/22 10:30 Freq: Status: Active Protocol: TOBIN Activity Type Activity Date Activity User E-sign Co-sign Detail Recorded Client Recorded Date Recorded By Document 01/07/22 10:32 BMF [id number] 01/07/22 10:40 BMF Document 01/14/22 10:32 DL [id number] 01/14/22 10:39 DL Document 01/21/22 10:47 DL [id number] 01/21/22 11:00 DL 01/07/22 01/14/22 01/21/22 10:32 10:32 10:47 - Today's Visit Information Type of service Follow-up Visit Follow-up Visit Follow-up Visit (Physician/CORPORATE LICENSED BROKER (Physician/CORPORATE LICENSED BROKER (Physician/CORPORATE LICENSED BROKER ) ) ) Arrival Mode Ambulatory Wheelchair Wheelchair Transfer Assistance None Manual Manual Transfer Assist (Other) x2 x2 Patient Identification Verified (Name & Yes Yes Yes ) Patient Requires Transmission-Based No No No Precautions Vital Signs Temperature (97.8 F-99.1 F) 98.2 F 98.2 F 98.8 F Temperature Source Temporal Temporal Temporal Pulse Rate (60-100) 118 H 106 H 112 H Pulse Location Monitor Monitor Monitor Respiratory Rate (12-18) 16 20 H 20 H Respiratory rate source Observation Observation Observation Oxygen Delivery Method Room Air Blood Pressure (90/60-120/80) 139/94 H 132/91 H 134/83 H Blood Pressure Mean (mm Hg) 109 104 100 Source Monitor Monitor Monitor Position Sitting Blood Pressure Location Left Arm History Since Last Visit- (Skip if this is Patient's initial visit) Have you changed medications since your No No No last visit? Any new allergies or adverse reactions No No No Had a fall/change in ADL's that may No No No increase risk of falls Signs or symptoms of abuse and/or No No No neglect since last visit Have you been in the hospital since your No No No last visit? Has dressing in place as prescribed Yes Yes Yes Has compression in place as prescribed N/A N/A N/A Has offloadiing in place as prescribed N/A Yes Yes Experienced any changes in pain level or No No No management Other Footwear SOCKS BOTH FEET Pain Scale: 0-10 Numeric Is Patient Pain Free? Yes Yes Yes - Nurse 1 - General Ulcer Measurement Start: 01/07/22 10:30 Freq: Status: Active Protocol: Activity Type Activity Date Activity User E-sign Co-sign Detail Recorded Client Recorded Date Recorded By Document 01/07/22 10:32 BMF [id number] 01/07/22 10:40 BMF Document 01/14/22 10:32 DL [id number] 01/14/22 10:39 DL Document 01/21/22 10:47 DL [id number] 01/21/22 11:00 DL 01/07/22 01/14/22 01/21/22 10:32 10:32 10:47 Wound Center Nurse 1 #6- sacral cluster -Combined with other wound No -Current Size (cm) - Length 2.4 4 3.3 -Current Size (cm) - Width 1.3 6 5.8 -Current Size (cm) - Depth 0.3 0.2 0.3 -Total Square Cm 3.12 24 19.14 -Date of Last Picture (Recall this 01/07/22 field) -Photo Taken Yes No No -Epithelialization None Present -Tunneling No -Undermining/Tunneling No -Circular Undermining No -Exudate Amt Medium Medium Medium -Exudate Type Serosanguineous Serosanguineous Serosanguineous -Wound Margin Distinct, Distinct, Distinct, Outline Outline Outline Attached Attached Attached -Granulation Amt Small (1-33%) Small (1-33%) Medium (34-66%) -Granulation Quality Red [place] Red -Slough/Fibrin Yes -Necrosis Amt Large (67-100%) Medium (34-66%) Medium (34-66%) -Necrotic Tissue Type Adherent Slough Adherent Slough Adherent Slough -Structure Exposed N/A N/A -Texture (Patience-wound Skin Appearance) Assessed, Scarring Scarring Scarring -Moisture (Patience-wound Skin Appearance) Assessed, No Abnormality No Abnormality Maceration -Color (Patience-wound Skin Appearance) Assessed, No Abnormality No Abnormality Erythema,Palor -Temperature (Patience-wound Skin No Abnormality No Abnormality No Abnormality Appearance) (Pt Warm) (Pt Warm) (Pt Warm) -Tenderness on Palpation (Patience-wound No No Skin Appearance) -Ulcer Cleansing Rinsed/ Rinsed/ Soap and Water Irrigated with Irrigated with Saline Saline -Foul Odor after Cleansing No No No -Anesthetic Used 5% Lidocaine 5% Lidocaine 5% Lidocaine Gel Gel Gel WC - Nurse 2 - General Ulcer CM Notes Start: 01/07/22 10:30 Freq: Status: Active Protocol: Activity Type Activity Date Activity User E-sign Co-sign Detail Recorded Client Recorded Date Recorded By Document 01/07/22 10:51 Desktop 01/07/22 10:58 JF Document 01/14/22 10:57 MW [id number] 01/14/22 11:07 MW Document 01/21/22 11:29 MW [id number] 01/21/22 11:41 MW 01/07/22 01/14/22 01/21/22 10:51 10:57 11:29 Wound Center Nurse 2 #6- sacral cluster -Time 10:53 10:57 11:31 -Correct Patient Yes Yes Yes -Correct Side, Site, Position Yes Yes Yes -Correct Procedure Yes Yes Yes -Procedure Performed Yes Yes Yes -Type of Procedure Debridement Debridement Debridement -Clinical Debridement Subcutaneous Subcutaneous Subcutaneous -Tissue Removed Subcutaneous Subcutaneous Subcutaneous -Post Debridement (cm) - Length 4 5.0 3.4 -Post Debridement (cm) - Width 5 6.0 6.0 -Post Debridement (cm) - Depth 0.2 0.2 0.2 -Total Square (Post) (cm) 20 30.00 20.40 -Area of Debridement (cm) - Length 4 5.0 3.4 -Area of Debridement (cm) - Width 5 6.0 6.0 -Total Square (Area) (cm) 20 30.00 20.40 -Tunneling No No No -Undermining/Tunneling No No No -Circular Undermining No No No -Wound/Ulcer Outcome Not Healed Not Healed Not Healed -Ulcer Cleansing Rinsed/ Rinsed/ Rinsed/ Irrigated with Irrigated with Irrigated with Saline Saline Saline -Foul Odor after Cleansing No No No -Bioengineered Tissue No No Yes -Type of Bioengineered Tissue Epifix Mesh -Expiration Date 11/04/26 -Product Lot Number [id number] -Percent Used 100 -Lot number of Saline Used [id number] -Bleeding Controlled with Pressure Pressure Pressure -Treatment Response Procedure Procedure Procedure Tolerated Well Tolerated Well Tolerated Well -Offloading No No No -Debridement - Subq, 1st 20sq cm Yes Yes No -Debridement, SubQ, ea addt'l 20sq cm 1 or part thereof -Apply Skin Sub - 1st 25 sq cm - Legs 1 -Epifix Mesh (per sq cm) 11 Pain Scale: 0-10 Numeric Is Patient Pain Free? Yes Yes Yes WC - Nurse 3 - General Ulcer D/C NN Start: 01/07/22 10:30 Freq: Status: Active Protocol: Activity Type Activity Date Activity User E-sign Co-sign Detail Recorded Client Recorded Date Recorded By Document 01/07/22 11:11 DL [id number] 01/07/22 11:15 DL Document 01/14/22 11:21 DL [id number] 01/14/22 11:23 DL Document 01/21/22 11:51 DL [id number] 01/21/22 11:52 DL 01/07/22 01/14/22 01/21/22 11:11 11:21 11:51 Wound Care Nurse 3 #6- sacral cluster -Ulcer Cleansing Rinsed/ Rinsed/ Irrigated with Irrigated with Saline Saline -Foul Odor after Cleansing No No No -Other Dressing promogran hydrogel ABD -Primary Dressing Covered/Secured with Dry Gauze, Dry Gauze, Secured with Secured with Tape Tape -Other Covering ABD ABD Treatment Response Procedure Procedure Tolerated Well Tolerated Well Pain Scale: 0-10 Numeric Is Patient Pain Free? Yes Yes Yes - Visit Discharge Discharge Condition Stable Stable Stable Ambulatory Status Wheelchair Wheelchair Wheelchair Transportation Private Auto Private Auto Private Auto Accompanied by mother Notes: pt to start Santyl as soon as it is obtained from pharm. Facility [facility] Facility Orders Sent Yes Yes Assessment/Plan Assessment/Plan (1) Pressure ulcer of sacral region, stage 3: CODE(S): L89.153 - Pressure ulcer of sacral region, stage 3 (2) Spina bifida: CODE(S): Q05.9 - Spina bifida, unspecified PLAN: Plan Debridement done as documented above, procedure was well-tolerated. Now approved for epi fix. Initial application done today using 100% of product. Moistened with saline. Covered with wound veil and secured with Steri-Strips. Leave in place for a week. May change outer dressing if soiled. X-ray findings discussed with mother. Pressure relief and offloading very strongly recommended. Continue adequate protein intake, vitamin C and zinc. Their questions were answered and they were advised to call with any further questions or concerns. Follow-up next week for a courtesy visit in 2 weeks with me. This note was generated with [employer] dictation software. It may contain incorrect words, spelling, and punctuation that were not noted in checking the note before signing.
[2022-01-28 13:29] VITALS: BP 133/91; PULSE 109; TEMP 36.2
--- NOTE | 2022-01-28 16:37 | PN.PCM_ITS ---
History of Present Illness Date of Service: 01/28/22 Chief Complaint: Recurrent sacral pressure sore, Stage III. History of Wound: Ms. Crews is a 46-year-old woman with a history of spina bifida returns today with a 10 day history of breakdown and recurrence of a previous sacral pressure ulcer. She denies any known precipitating factor. Mother states that she noted it on the 07 of December. Has been applying dry dressing. No significant improvement. She typically a lot of moisture in the area and there has been. She otherwise feels well denies chills, fever nausea vomiting. Progress of Wound: Courtesy visit for Dr. Kinney, ulcer cluster has slightly improved after the first application of Epifix. Her mother states that one of [facility] care givers removed the wound veil on Tuesday due to it getting soiled. They were placing her previous dressing daily since then. Objective Data Objective Data Vital Signs: Vital Signs Temp Pulse Resp BP O2 Del Method 97.2 F L 109 H 20 H 133/91 H Room Air 01/28/22 13:29 01/28/22 13:29 01/21/22 10:47 01/28/22 13:29 01/07/22 10:32 Oxygen Delivery Method Room Air Charges/Coding Procedures Integumentary 150xxx-152xx: 13891 Skin sub graft face/nk/hf/g Physical Exam Const alert, oriented x3 and no apparent distress General Appearance: well kempt HEENT normocephalic and hearing grossly normal bilaterally Neck full ROM and supple Resp normal respiratory effort Effort and Inspection: able to speak in complete sentences Skin Wound Narrative: Sacral ulcer cluster is beefy pink in color. Patience wound is stable. Neuro oriented x3 and CN's II-XII intact bilaterally Psych mental status grossly normal, cooperative and affect normal Appearance: grossly normal Attitude: calm Speech: normal speech Debridement Note Debridement Note Wound debrided: Sacral Wound Grade/Stage: Stage III Type of Debridement: Excisional debridement Anesthesia Used: 4% Lidocaine Solution Depth: Down to and including healthy tissue and in the subcutaneous layer Percentage of wound debrided: 100 Instrument Used: 5mm curette Tissue Removed: Slough and devitalized tissue Severity: Fat Layer Exposed Amount of bleeding with debridement: Mild Bleeding Controlled with: Pressure Patient tolerated procedure: Patient tolerated procedure well Post-Debridement Measurements and Additional Note: Post-Debridement Measurements/Treatment WC - Nurse 1 - General Ulcer Assessment Start: 01/07/22 10:30 Freq: Status: Active Protocol: TOBIN Activity Type Activity Date Activity User E-sign Co-sign Detail Recorded Client Recorded Date Recorded By Document 01/07/22 10:32 BMF [id number] 01/07/22 10:40 BMF Document 01/14/22 10:32 DL [id number] 01/14/22 10:39 DL Document 01/21/22 10:47 DL [id number] 01/21/22 11:00 DL Document 01/28/22 13:29 AK [id number] 01/28/22 13:36 AK 01/07/22 01/14/22 01/21/22 10:32 10:32 10:47 - Today's Visit Information Type of service Follow-up Visit Follow-up Visit Follow-up Visit (Physician/NATURAL RESOURCE TECHNICIAN (Physician/NATURAL RESOURCE TECHNICIAN (Physician/NATURAL RESOURCE TECHNICIAN ) ) ) Arrival Mode Ambulatory Wheelchair Wheelchair Transfer Assistance None Manual Manual Transfer Assist (Other) x2 x2 Patient Identification Verified (Name & Yes Yes Yes ) Patient Requires Transmission-Based No No No Precautions Safety Precautions Vital Signs Temperature (97.8 F-99.1 F) 98.2 F 98.2 F 98.8 F Temperature Source Temporal Temporal Temporal Pulse Rate (60-100) 118 H 106 H 112 H Pulse Location Monitor Monitor Monitor Respiratory Rate (12-18) 16 20 H 20 H Respiratory rate source Observation Observation Observation Oxygen Delivery Method Room Air Blood Pressure (90/60-120/80) 139/94 H 132/91 H 134/83 H Blood Pressure Mean (mm Hg) 109 104 100 Source Monitor Monitor Monitor Position Sitting Blood Pressure Location Left Arm History Since Last Visit- (Skip if this is Patient's initial visit) Have you changed medications since your No No No last visit? Any new allergies or adverse reactions No No No Had a fall/change in ADL's that may No No No increase risk of falls Signs or symptoms of abuse and/or No No No neglect since last visit Have you been in the hospital since your No No No last visit? Has dressing in place as prescribed Yes Yes Yes Has compression in place as prescribed N/A N/A N/A Has offloadiing in place as prescribed N/A Yes Yes Experienced any changes in pain level or No No No management Other Footwear SOCKS BOTH FEET Pain Scale: 0-10 Numeric Is Patient Pain Free? Yes Yes Yes 01/28/22 13:29 WC - Today's Visit Information Type of service Follow-up Visit (Physician/NATURAL RESOURCE TECHNICIAN ) Arrival Mode Wheelchair Transfer Assistance Transfer Assist (Other) Patient Identification Verified (Name & Yes ) Patient Requires Transmission-Based No Precautions Safety Precautions NA Vital Signs Temperature (97.8 F-99.1 F) 97.2 F L Temperature Source Temporal Pulse Rate (60-100) 109 H Pulse Location Monitor Respiratory Rate (12-18) Respiratory rate source Oxygen Delivery Method Blood Pressure (90/60-120/80) 133/91 H Blood Pressure Mean (mm Hg) 105 Source Monitor Position Blood Pressure Location History Since Last Visit- (Skip if this is Patient's initial visit) Have you changed medications since your No last visit? Any new allergies or adverse reactions No Had a fall/change in ADL's that may No increase risk of falls Signs or symptoms of abuse and/or No neglect since last visit Have you been in the hospital since your No last visit? Has dressing in place as prescribed Yes Has compression in place as prescribed N/A Has offloadiing in place as prescribed N/A Experienced any changes in pain level or No management Other Footwear Pain Scale: 0-10 Numeric Is Patient Pain Free? Yes - Nurse 1 - General Ulcer Measurement Start: 01/07/22 10:30 Freq: Status: Active Protocol: Activity Type Activity Date Activity User E-sign Co-sign Detail Recorded Client Recorded Date Recorded By Document 01/07/22 10:32 BMF [id number] 01/07/22 10:40 BMF Document 01/14/22 10:32 DL [id number] 01/14/22 10:39 DL Document 01/21/22 10:47 DL [id number] 01/21/22 11:00 DL Document 01/28/22 13:29 AK [id number] 01/28/22 13:36 AK Document 01/28/22 13:37 AK [id number] 01/28/22 13:38 AK 01/07/22 01/14/22 01/21/22 10:32 10:32 10:47 Wound Center Nurse 1 #6- sacral cluster -Combined with other wound No -Current Size (cm) - Length 2.4 4 3.3 -Current Size (cm) - Width 1.3 6 5.8 -Current Size (cm) - Depth 0.3 0.2 0.3 -Total Square Cm 3.12 24 19.14 -Date of Last Picture (Recall this 01/07/22 field) -Photo Taken Yes No No -Epithelialization None Present -Tunneling No -Undermining/Tunneling No -Circular Undermining No -Change in Wound Grade/Stage -Exudate Amt Medium Medium Medium -Exudate Type Serosanguineous Serosanguineous Serosanguineous -Wound Margin Distinct, Distinct, Distinct, Outline Outline Outline Attached Attached Attached -Granulation Amt Small (1-33%) Small (1-33%) Medium (34-66%) -Granulation Quality Red [place] Red -Slough/Fibrin Yes -Necrosis Amt Large (67-100%) Medium (34-66%) Medium (34-66%) -Necrotic Tissue Type Adherent Slough Adherent Slough Adherent Slough -Structure Exposed N/A N/A -Texture (Patience-wound Skin Appearance) Assessed, Scarring Scarring Scarring -Moisture (Patience-wound Skin Appearance) Assessed, No Abnormality No Abnormality Maceration -Color (Patience-wound Skin Appearance) Assessed, No Abnormality No Abnormality Erythema,Palor -Temperature (Patience-wound Skin No Abnormality No Abnormality No Abnormality Appearance) (Pt Warm) (Pt Warm) (Pt Warm) -Tenderness on Palpation (Patience-wound No No Skin Appearance) -Ulcer Cleansing Rinsed/ Rinsed/ Soap and Water Irrigated with Irrigated with Saline Saline -Foul Odor after Cleansing No No No -Anesthetic Used 5% Lidocaine 5% Lidocaine 5% Lidocaine Gel Gel Gel 01/28/22 01/28/22 13:29 13:37 Wound Center Nurse 1 #6- sacral cluster -Combined with other wound No -Current Size (cm) - Length 3.9 -Current Size (cm) - Width 5.3 -Current Size (cm) - Depth 0.2 -Total Square Cm 20.67 -Date of Last Picture (Recall this field) -Photo Taken No -Epithelialization -Tunneling No -Undermining/Tunneling No -Circular Undermining No -Change in Wound Grade/Stage No -Exudate Amt Medium -Exudate Type Serosanguineous -Wound Margin Distinct, Outline Attached -Granulation Amt Medium (34-66%) -Granulation Quality [place],Red -Slough/Fibrin Yes -Necrosis Amt Large (67-100%) -Necrotic Tissue Type Adherent Slough -Structure Exposed N/A -Texture (Patience-wound Skin Appearance) No Abnormality, Assessed -Moisture (Patience-wound Skin Appearance) No Abnormality, Assessed -Color (Patience-wound Skin Appearance) No Abnormality, Assessed -Temperature (Patience-wound Skin No Abnormality Appearance) (Pt Warm) -Tenderness on Palpation (Patience-wound No Skin Appearance) -Ulcer Cleansing Rinsed/ Irrigated with Saline -Foul Odor after Cleansing No -Anesthetic Used 5% Lidocaine Gel WC - Nurse 2 - General Ulcer CM Notes Start: 01/07/22 10:30 Freq: Status: Active Protocol: Activity Type Activity Date Activity User E-sign Co-sign Detail Recorded Client Recorded Date Recorded By Document 01/07/22 10:51 Desktop 01/07/22 10:58 Document 01/14/22 10:57 MW [id number] 01/14/22 11:07 MW Document 01/21/22 11:29 MW [id number] 01/21/22 11:41 MW Document 01/28/22 15:54 PL [id number] 01/28/22 15:56 PL 01/07/22 01/14/22 01/21/22 10:51 10:57 11:29 Wound Center Nurse 2 #6- sacral cluster -Time 10:53 10:57 11:31 -Correct Patient Yes Yes Yes -Correct Side, Site, Position Yes Yes Yes -Correct Procedure Yes Yes Yes -Procedure Performed Yes Yes Yes -Type of Procedure Debridement Debridement Debridement -Clinical Debridement Subcutaneous Subcutaneous Subcutaneous -Tissue Removed Subcutaneous Subcutaneous Subcutaneous -Post Debridement (cm) - Length 4 5.0 3.4 -Post Debridement (cm) - Width 5 6.0 6.0 -Post Debridement (cm) - Depth 0.2 0.2 0.2 -Total Square (Post) (cm) 20 30.00 20.40 -Area of Debridement (cm) - Length 4 5.0 3.4 -Area of Debridement (cm) - Width 5 6.0 6.0 -Total Square (Area) (cm) 20 30.00 20.40 -Tunneling No No No -Undermining/Tunneling No No No -Circular Undermining No No No -Wound/Ulcer Outcome Not Healed Not Healed Not Healed -Ulcer Cleansing Rinsed/ Rinsed/ Rinsed/ Irrigated with Irrigated with Irrigated with Saline Saline Saline -Foul Odor after Cleansing No No No -Bioengineered Tissue No No Yes -Type of Bioengineered Tissue Epifix Mesh -Expiration Date 11/04/26 -Product Lot Number [id number] -Percent Used 100 -Lot number of Saline Used [id number] -Bleeding Controlled with Pressure Pressure Pressure -Treatment Response Procedure Procedure Procedure Tolerated Well Tolerated Well Tolerated Well -Offloading No No No -Debridement - Subq, 1st 20sq cm Yes Yes No -Debridement, SubQ, ea addt'l 20sq cm 1 or part thereof -Apply Skin Sub - 1st 25 sq cm - Legs 1 -Apply Skin Sub - 1st 25 sq cm - Feet -Epifix Mesh (per sq cm) 11 Pain Scale: 0-10 Numeric Is Patient Pain Free? Yes Yes Yes 01/28/22 15:54 Wound Center Nurse 2 #6- sacral cluster -Time 13:44 -Correct Patient Yes -Correct Side, Site, Position Yes -Correct Procedure Yes -Procedure Performed Yes -Type of Procedure Debridement -Clinical Debridement Subcutaneous -Tissue Removed Subcutaneous -Post Debridement (cm) - Length 3.2 -Post Debridement (cm) - Width 5.8 -Post Debridement (cm) - Depth 0.4 -Total Square (Post) (cm) 18.56 -Area of Debridement (cm) - Length 3.2 -Area of Debridement (cm) - Width 5.8 -Total Square (Area) (cm) 18.56 -Tunneling No -Undermining/Tunneling No -Circular Undermining No -Wound/Ulcer Outcome Not Healed -Ulcer Cleansing Rinsed/ Irrigated with Saline -Foul Odor after Cleansing No -Bioengineered Tissue Yes -Type of Bioengineered Tissue Epifix Mesh -Expiration Date 11/04/26 -Product Lot Number [id number] -Percent Used 100 -Lot number of Saline Used -Bleeding Controlled with Pressure -Treatment Response Procedure Tolerated Well -Offloading -Debridement - Subq, 1st 20sq cm No -Debridement, SubQ, ea addt'l 20sq cm or part thereof -Apply Skin Sub - 1st 25 sq cm - Legs -Apply Skin Sub - 1st 25 sq cm - Feet 1 -Epifix Mesh (per sq cm) 11 Pain Scale: 0-10 Numeric Is Patient Pain Free? Yes - Nurse 3 - General Ulcer D/C NN Start: 01/07/22 10:30 Freq: Status: Active Protocol: Activity Type Activity Date Activity User E-sign Co-sign Detail Recorded Client Recorded Date Recorded By Document 01/07/22 11:11 DL [id number] 01/07/22 11:15 DL Document 01/14/22 11:21 DL [id number] 01/14/22 11:23 DL Document 01/21/22 11:51 DL [id number] 01/21/22 11:52 DL Document 01/28/22 14:11 KR [id number] 01/28/22 14:11 KR 01/07/22 01/14/22 01/21/22 11:11 11:21 11:51 Wound Care Nurse 3 #6- sacral cluster -Ulcer Cleansing Rinsed/ Rinsed/ Irrigated with Irrigated with Saline Saline -Foul Odor after Cleansing No No No -Other Dressing promogran hydrogel ABD -Primary Dressing Covered/Secured with Dry Gauze, Dry Gauze, Secured with Secured with Tape Tape -Other Covering ABD ABD Treatment Response Procedure Procedure Tolerated Well Tolerated Well Pain Scale: 0-10 Numeric Is Patient Pain Free? Yes Yes Yes WC - Visit Discharge Discharge Condition Stable Stable Stable Ambulatory Status Wheelchair Wheelchair Wheelchair Transportation Private Auto Private Auto Private Auto Accompanied by mother Notes: pt to start Santyl as soon as it is obtained from pharm. Facility Type [facility] Facility Orders Sent Yes Yes 01/28/22 14:11 Wound Care Nurse 3 #6- sacral cluster -Ulcer Cleansing -Foul Odor after Cleansing -Other Dressing abd pad -Primary Dressing Covered/Secured with -Other Covering Treatment Response Pain Scale: 0-10 Numeric Is Patient Pain Free? Yes WC - Visit Discharge Discharge Condition Stable Ambulatory Status Wheelchair Transportation Private Auto Accompanied by mother Notes: Facility Type Orders Sent Assessment/Plan Assessment/Plan (1) Pressure ulcer of sacral region, stage 3: CODE(S): L89.153 - Pressure ulcer of sacral region, stage 3 (2) Spina bifida: CODE(S): Q05.9 - Spina bifida, unspecified PLAN: Plan Courtesy visit for Dr. Kinney. Debridement done as documented above, procedure was well-tolerated. Now approved for epi fix. Second application done today using 100% of product. Moistened with saline. Covered with wound veil and secured with Steri-Strips. Leave in place for a week. May change outer dressing if soiled. Stressed the importance of keeping the wound veil in place. Given extra steri strips to secure the wound veil if it becomes loose. Pressure relief and offloading very strongly recommended. Continue adequate protein intake, vitamin C and zinc. Their questions were answered and they were advised to call with any further questions or concerns. Follow-up next week with Dr. Kinney.
== END 2022-02-03 23:59 | disposition home or self-care (01) ==
LOC: WC 13:15
PROVIDERS: PCP Nurse Practitioner Family; Visit Provider Internal Medicine
DX: L89.153 Pressure ulcer of sacral region, stage 3 (principal); Q05.9 Spina bifida, unspecified
CPT/HCPCS: 11042; 11045; 15271; 15275; Q4186

== ENCOUNTER 2022-02-25 10:30 | Outpatient (RCR) | payer MEDICARE, MEDICAID, SELFPAY ==
[2022-02-04 00:37] VITALS: BP 133/91; PULSE 109; RESP 20; TEMP 36.2
[2022-02-04 10:58] VITALS: BP 136/89; PULSE 113; RESP 20; TEMP 36.6
--- NOTE | 2022-02-04 14:01 | PCM.WC.PN ---
History of Present Illness Date of Service: 02/04/22 Chief Complaint: Recurrent sacral pressure sore, Stage III. History of Wound: Ms. Crews is a 46-year-old woman with a history of spina bifida returns today with a 10 day history of breakdown and recurrence of a previous sacral pressure ulcer. She denies any known precipitating factor. Mother states that she noted it on the 07 of December. Has been applying dry dressing. No significant improvement. She typically a lot of moisture in the area and there has been. She otherwise feels well denies chills, fever nausea vomiting. Progress of Wound: Has had 2 applications of epi fix so far. Some improvement. Periwound dermatitis, mother states that outer dressing was left in place all week. Objective Data Objective Data Vital Signs: Vital Signs Temp Pulse Resp BP 97.9 F 113 H 20 H 136/89 H 02/04/22 10:58 02/04/22 10:58 02/04/22 10:58 02/04/22 10:58 Charges/Coding Procedures Integumentary 150xxx-152xx: 90535 Skin sub graft trnk/arm/leg Physical Exam Const alert, oriented x3 and no apparent distress General Appearance: cooperative and well kempt HEENT normocephalic and hearing grossly normal bilaterally Head and Scalp: normal to inspection and atraumatic Neck full ROM and supple Resp normal respiratory effort Effort and Inspection: able to speak in complete sentences Skin Wounds: wounds noted Neuro oriented x3, CN's II-XII intact bilaterally and moves all extremities Psych mental status grossly normal, cooperative and affect normal Appearance: grossly normal Attitude: calm Speech: normal speech Debridement Note Debridement Note Wound debrided: Sacral Type of Debridement: Excisional debridement Anesthesia Used: 4% Lidocaine Solution Depth: Down to and including healthy tissue and in the subcutaneous layer Percentage of wound debrided: 100 Instrument Used: 5mm curette Tissue Removed: Slough and devitalized tissue Severity: Fat Layer Exposed Amount of bleeding with debridement: Mild Bleeding Controlled with: Pressure Patient tolerated procedure: Patient tolerated procedure well Post-Debridement Measurements and Additional Note: Post-Debridement Measurements/Treatment JESSICA - Nurse 1 - General Ulcer Assessment Start: 02/04/22 10:57 Freq: Status: Active Protocol: TOBIN Activity Type Activity Date Activity User E-sign Co-sign Detail Recorded Client Recorded Date Recorded By Document 02/04/22 10:58 [id number] 02/04/22 11:03 02/04/22 10:58 - Today's Visit Information Type of service Follow-up Visit (Physician/SENIOR CLIMATE ADVISOR ) Arrival Mode Wheelchair Transfer Assistance Manual Transfer Assist (Other) x2 Patient Identification Verified (Name & Yes ) Safety Precautions NA Vital Signs Temperature (97.8 F-99.1 F) 97.9 F Temperature Source Temporal Pulse Rate (60-100) 113 H Pulse Location Monitor Respiratory Rate (12-18) 20 H Respiratory rate source Observation Blood Pressure (90/60-120/80) 136/89 H Blood Pressure Mean (mm Hg) 104 Source Monitor History Since Last Visit- (Skip if this is Patient's initial visit) Have you changed medications since your No last visit? Any new allergies or adverse reactions No Had a fall/change in ADL's that may No increase risk of falls Signs or symptoms of abuse and/or No neglect since last visit Have you been in the hospital since your No last visit? Has dressing in place as prescribed Yes Has compression in place as prescribed N/A Has offloadiing in place as prescribed Yes Experienced any changes in pain level or No management Pain Scale: 0-10 Numeric Is Patient Pain Free? Yes - Nurse 1 - General Ulcer Measurement Start: 02/04/22 10:57 Freq: Status: Active Protocol: Activity Type Activity Date Activity User E-sign Co-sign Detail Recorded Client Recorded Date Recorded By Document 02/04/22 10:58 [id number] 02/04/22 11:03 02/04/22 10:58 Wound Center Nurse 1 #6- sacral cluster -Current Size (cm) - Length 3 -Current Size (cm) - Width 4 -Current Size (cm) - Depth 0.2 -Total Square Cm 12 -Photo Taken No -Exudate Amt Medium -Exudate Type Serosanguineous -Wound Margin Distinct, Outline Attached -Granulation Amt Medium (34-66%) -Granulation Quality Red -Necrosis Amt Medium (34-66%) -Necrotic Tissue Type Adherent Slough -Structure Exposed N/A -Texture (Patience-wound Skin Appearance) Excoriation, Scarring,Rash -Moisture (Patience-wound Skin Appearance) No Abnormality -Color (Patience-wound Skin Appearance) No Abnormality -Temperature (Patience-wound Skin No Abnormality Appearance) (Pt Warm) -Tenderness on Palpation (Patience-wound No Skin Appearance) -Ulcer Cleansing Soap and Water -Foul Odor after Cleansing No -Anesthetic Used 5% Lidocaine Gel WC - Nurse 2 - General Ulcer CM Notes Start: 02/04/22 10:57 Freq: Status: Active Protocol: Activity Type Activity Date Activity User E-sign Co-sign Detail Recorded Client Recorded Date Recorded By Document 02/04/22 11:15 MW [id number] 02/04/22 11:26 MW 02/04/22 11:15 Wound Center Nurse 2 -Time 11:16 -Correct Patient Yes -Correct Side, Site, Position Yes -Correct Procedure Yes -Procedure Performed Yes -Type of Procedure Debridement -Clinical Debridement Subcutaneous -Tissue Removed Subcutaneous -Post Debridement (cm) - Length 2.5 -Post Debridement (cm) - Width 5.2 -Post Debridement (cm) - Depth 0.3 -Total Square (Post) (cm) 13.00 -Area of Debridement (cm) - Length 2.5 -Area of Debridement (cm) - Width 5.2 -Total Square (Area) (cm) 13.00 -Tunneling No -Undermining/Tunneling No -Circular Undermining No -Wound/Ulcer Outcome Not Healed -Ulcer Cleansing Rinsed/ Irrigated with Saline -Foul Odor after Cleansing No -Bioengineered Tissue Yes -Type of Bioengineered Tissue Epifix Mesh -Expiration Date 12/04/26 -Product Lot Number [id number] -Percent Used 100 -Lot number of Saline Used [id number] -Bleeding Controlled with Pressure -Treatment Response Procedure Tolerated Well -Offloading No -Debridement - Subq, 1st 20sq cm No -Epifix Mesh (per sq cm) 11 Pain Scale: 0-10 Numeric Is Patient Pain Free? Yes WC - Nurse 3 - General Ulcer D/C NN Start: 02/04/22 10:57 Freq: Status: Active Protocol: Activity Type Activity Date Activity User E-sign Co-sign Detail Recorded Client Recorded Date Recorded By Document 02/04/22 11:28 MW [id number] 02/04/22 11:29 MW 02/04/22 11:28 Wound Care Nurse 3 #6- sacral cluster -Ulcer Cleansing Not Cleansed -Foul Odor after Cleansing No -Negative Pressure Wound Therapy N/A -Other Dressing ABD PAD -Primary Dressing Covered/Secured with Secured with Tape Pain Scale: 0-10 Numeric Is Patient Pain Free? Yes Teaching: Wound Center Dressing Your Wound -Person Taught Patient -Teaching Method Discussion -Response to teaching Verbalize understanding WC - Visit Discharge Discharge Condition Stable Ambulatory Status Ambulatory Transportation Private Auto Accompanied by MOM Medication Reconcilliation completed & No provided to patient/care provider Clinical Summary of Care Provided Yes Assessment/Plan Assessment/Plan (1) Pressure ulcer of sacral region, stage 3: CODE(S): L89.153 - Pressure ulcer of sacral region, stage 3 (2) Spina bifida: CODE(S): Q05.9 - Spina bifida, unspecified PLAN: Plan Debridement done as documented above, procedure was well-tolerated. 3rd application of Epifix done today using 100% of product. Moistened with saline. Covered with wound veil and secured with Steri-Strips. Leave in place for a week. May change outer dressing if soiled. Aquaphor to the periwound dermatitis/irritated area. Change outer dressing when soiled. Continue adequate protein intake, vitamin C and zinc. Their questions were answered and they were advised to call with any further questions or concerns. Follow-up in a week. This note was generated with [employer] dictation software. It may contain incorrect words, spelling, and punctuation that were not noted in checking the note before signing.
[2022-02-11 09:59] VITALS: BP 136/67; PULSE 105; RESP 16; TEMP 36.2
--- NOTE | 2022-02-11 10:35 | PCM.WC.PN ---
History of Present Illness Date of Service: 02/11/22 Chief Complaint: Recurrent sacral pressure sore, Stage III. History of Wound: Ms. Crews is a 46-year-old woman with a history of spina bifida returns today with a 10 day history of breakdown and recurrence of a previous sacral pressure ulcer. She denies any known precipitating factor. Mother states that she noted it on the 07 of December. Has been applying dry dressing. No significant improvement. She typically a lot of moisture in the area and there has been. She otherwise feels well denies chills, fever nausea vomiting. Progress of Wound: Has had 3 applications of epi fix so far. Some improvement. Periwound dermatitis noted last week has resolved. Objective Data Objective Data Vital Signs: Vital Signs Temp Pulse Resp BP O2 Del Method 97.1 F L 105 H 16 136/67 H Room Air 02/11/22 09:59 02/11/22 09:59 02/11/22 09:59 02/11/22 09:59 02/11/22 09:59 Oxygen Delivery Method Room Air Charges/Coding Procedures Integumentary 150xxx-152xx: 87231 Skin sub graft trnk/arm/leg Physical Exam Const alert, oriented x3 and no apparent distress General Appearance: cooperative and well kempt HEENT normocephalic and hearing grossly normal bilaterally Head and Scalp: normal to inspection and atraumatic Neck full ROM and supple Resp normal respiratory effort Effort and Inspection: able to speak in complete sentences Skin Wounds: wounds noted Neuro oriented x3, CN's II-XII intact bilaterally and moves all extremities Psych mental status grossly normal, cooperative and affect normal Appearance: grossly normal Attitude: calm Speech: normal speech Debridement Note Debridement Note Wound debrided: Sacral Type of Debridement: Excisional debridement Anesthesia Used: 4% Lidocaine Solution Depth: Down to and including healthy tissue and in the subcutaneous layer Percentage of wound debrided: 100 Instrument Used: 7mm curette Tissue Removed: Slough and devitalized tissue Severity: Fat Layer Exposed Amount of bleeding with debridement: Mild Bleeding Controlled with: Pressure Patient tolerated procedure: Patient tolerated procedure well Post-Debridement Measurements and Additional Note: Post-Debridement Measurements/Treatment JESSICA - Nurse 1 - General Ulcer Assessment Start: 02/04/22 10:57 Freq: Status: Active Protocol: TOBIN Activity Type Activity Date Activity User E-sign Co-sign Detail Recorded Client Recorded Date Recorded By Document 02/04/22 10:58 DL [id number] 02/04/22 11:03 DL Document 02/11/22 09:59 [facility] [id number] 02/11/22 10:10 BMF 02/04/22 02/11/22 10:58 09:59 - Today's Visit Information Type of service Follow-up Visit Follow-up Visit (Physician/[employer] (Physician/[employer] ) ) Arrival Mode Wheelchair Wheelchair Transfer Assistance Manual Other Transfer Assist (Other) x2 2 Accompanied by mom Patient Identification Verified (Name & Yes Yes ) Patient Requires Transmission-Based No Precautions Safety Precautions NA Vital Signs Temperature (97.8 F-99.1 F) 97.9 F 97.1 F L Temperature Source Temporal Temporal Pulse Rate (60-100) 113 H 105 H Pulse Location Monitor Monitor Respiratory Rate (12-18) 20 H 16 Respiratory rate source Observation Observation Oxygen Delivery Method Room Air Blood Pressure (90/60-120/80) 136/89 H 136/67 H Blood Pressure Mean (mm Hg) 104 90 Source Monitor Monitor Position Sitting Blood Pressure Location Right Forearm History Since Last Visit- (Skip if this is Patient's initial visit) Have you changed medications since your No No last visit? Any new allergies or adverse reactions No No Had a fall/change in ADL's that may No No increase risk of falls Signs or symptoms of abuse and/or No No neglect since last visit Have you been in the hospital since your No No last visit? Has dressing in place as prescribed Yes No Has compression in place as prescribed N/A N/A Has offloadiing in place as prescribed Yes N/A Experienced any changes in pain level or No No management Left Footwear Other Footwear (Comment) Right Footwear Other Footwear (Comment) Other Footwear heel protector Pain Scale: 0-10 Numeric Is Patient Pain Free? Yes Yes - Nurse 1 - General Ulcer Measurement Start: 02/04/22 10:57 Freq: Status: Active Protocol: Activity Type Activity Date Activity User E-sign Co-sign Detail Recorded Client Recorded Date Recorded By Document 02/04/22 10:58 DL [id number] 02/04/22 11:03 DL Document 02/11/22 09:59 [facility] [id number] 02/11/22 10:10 [facility] 02/04/22 02/11/22 10:58 09:59 Wound Center Nurse 1 #6- sacral cluster -Combined with other wound No -Current Size (cm) - Length 3 2.4 -Current Size (cm) - Width 4 4.5 -Current Size (cm) - Depth 0.2 0.3 -Total Square Cm 12 10.80 -Date of Last Picture (Recall this 02/11/22 field) -Photo Taken No Yes -Epithelialization None Present -Tunneling No -Undermining/Tunneling No -Circular Undermining No -Exudate Amt Medium Medium -Exudate Type Serosanguineous Serous -Wound Margin Distinct, Distinct, Outline Outline Attached Attached -Granulation Amt Medium (34-66%) Large (67-100%) -Granulation Quality Red Red -Necrosis Amt Medium (34-66%) -Necrotic Tissue Type Adherent Slough -Structure Exposed N/A -Texture (Patience-wound Skin Appearance) Excoriation, Assessed, Scarring,Rash Scarring -Moisture (Patience-wound Skin Appearance) No Abnormality Assessed, Maceration -Color (Patience-wound Skin Appearance) No Abnormality Assessed,Rubor -Temperature (Patience-wound Skin No Abnormality No Abnormality Appearance) (Pt Warm) (Pt Warm) -Tenderness on Palpation (Patience-wound No No Skin Appearance) -Ulcer Cleansing Soap and Water Soap and Water -Foul Odor after Cleansing No No -Anesthetic Used 5% Lidocaine 5% Lidocaine Gel Gel WC - Nurse 2 - General Ulcer CM Notes Start: 02/04/22 10:57 Freq: Status: Active Protocol: Activity Type Activity Date Activity User E-sign Co-sign Detail Recorded Client Recorded Date Recorded By Document 02/04/22 11:15 MW [id number] 02/04/22 11:26 MW Edit Result 02/04/22 11:15 MW (1) [id number] 02/05/22 06:41 PL Document 02/11/22 10:18 MW [id number] 02/11/22 10:28 MW (1) #6- sacral cluster - Apply Skin Sub - 1st 25 sq cm - Legs => 1 02/04/22 02/11/22 11:15 10:18 Wound Center Nurse 2 #6- sacral cluster -Time 11:16 10:19 -Correct Patient Yes Yes -Correct Side, Site, Position Yes Yes -Correct Procedure Yes Yes -Procedure Performed Yes Yes -Type of Procedure Debridement Debridement -Clinical Debridement Subcutaneous Subcutaneous -Tissue Removed Subcutaneous Subcutaneous -Post Debridement (cm) - Length 2.5 2.0 -Post Debridement (cm) - Width 5.2 5.0 -Post Debridement (cm) - Depth 0.3 0.2 -Total Square (Post) (cm) 13.00 10.00 -Area of Debridement (cm) - Length 2.5 2.0 -Area of Debridement (cm) - Width 5.2 5.0 -Total Square (Area) (cm) 13.00 10.00 -Tunneling No No -Undermining/Tunneling No No -Circular Undermining No No -Wound/Ulcer Outcome Not Healed Not Healed -Ulcer Cleansing Rinsed/ Rinsed/ Irrigated with Irrigated with Saline Saline -Foul Odor after Cleansing No No -Bioengineered Tissue Yes Yes -Type of Bioengineered Tissue Epifix Mesh Epifix Mesh -Expiration Date 12/04/26 12/04/26 -Product Lot Number [id number] -Percent Used 100 100 -Lot number of Saline Used [id number] -Bleeding Controlled with Pressure Pressure -Treatment Response Procedure Procedure Tolerated Well Tolerated Well -Offloading No No -Debridement - Subq, 1st 20sq cm No No -Apply Skin Sub - 1st 25 sq cm - Legs 1 1 -Epifix Mesh (per sq cm) 11 11 Pain Scale: 0-10 Numeric Is Patient Pain Free? Yes Yes - Nurse 3 - General Ulcer D/C NN Start: 02/04/22 10:57 Freq: Status: Active Protocol: Activity Type Activity Date Activity User E-sign Co-sign Detail Recorded Client Recorded Date Recorded By Document 02/04/22 11:28 MW [id number] 02/04/22 11:29 MW 02/04/22 11:28 Wound Care Nurse 3 #6- sacral cluster -Ulcer Cleansing Not Cleansed -Foul Odor after Cleansing No -Negative Pressure Wound Therapy N/A -Other Dressing ABD PAD -Primary Dressing Covered/Secured with Secured with Tape Pain Scale: 0-10 Numeric Is Patient Pain Free? Yes Teaching: Wound Center Dressing Your Wound -Person Taught Patient -Teaching Method Discussion -Response to teaching Verbalize understanding WC - Visit Discharge Discharge Condition Stable Ambulatory Status Ambulatory Transportation Private Auto Accompanied by MOM Medication Reconcilliation completed & No provided to patient/care provider Clinical Summary of Care Provided Yes Assessment/Plan Assessment/Plan (1) Pressure ulcer of sacral region, stage 3: CODE(S): L89.153 - Pressure ulcer of sacral region, stage 3 (2) Spina bifida: CODE(S): Q05.9 - Spina bifida, unspecified PLAN: Plan Debridement done as documented above, procedure was well-tolerated. 4th application of Epifix done today using 100% of product. Moistened with saline. Covered with wound veil and secured with Steri-Strips. Leave in place for a week. Aquacel extra to help with drainage. May change outer dressing if soiled. Aquaphor to the periwound dermatitis/irritated area. Change outer dressing when soiled. Continue adequate protein intake, vitamin C and zinc. Their questions were answered and they were advised to call with any further questions or concerns. Follow-up in a week. This note was generated with [employer] dictation software. It may contain incorrect words, spelling, and punctuation that were not noted in checking the note before signing.
[2022-02-18 10:18] VITALS: BP 148/97; PULSE 104; RESP 16; TEMP 36.6
--- NOTE | 2022-02-18 12:33 | PCM.WC.PN ---
History of Present Illness Date of Service: 02/18/22 Chief Complaint: Recurrent sacral pressure sore, Stage III. History of Wound: Ms. Crews is a 46-year-old woman with a history of spina bifida returns today with a 10 day history of breakdown and recurrence of a previous sacral pressure ulcer. She denies any known precipitating factor. Mother states that she noted it on the 07 of December. Has been applying dry dressing. No significant improvement. She typically a lot of moisture in the area and there has been. She otherwise feels well denies chills, fever nausea vomiting. Progress of Wound: Has had 4 applications of epi fix so far. Some improvement. Some improvement noted. Objective Data Objective Data Vital Signs: Vital Signs Temp Pulse Resp BP O2 Del Method 98 F 104 H 16 148/97 H Room Air 02/18/22 10:18 02/18/22 10:18 02/18/22 10:18 02/18/22 10:18 02/18/22 10:18 Oxygen Delivery Method Room Air Charges/Coding Procedures Integumentary 150xxx-152xx: 16987 Skin sub graft trnk/arm/leg Physical Exam Const alert, oriented x3 and no apparent distress General Appearance: cooperative and well kempt HEENT normocephalic and hearing grossly normal bilaterally Head and Scalp: normal to inspection and atraumatic Neck full ROM and supple Resp normal respiratory effort Effort and Inspection: able to speak in complete sentences Skin Wounds: wounds noted Neuro oriented x3, CN's II-XII intact bilaterally and moves all extremities Psych mental status grossly normal, cooperative and affect normal Appearance: grossly normal Attitude: calm Speech: normal speech Debridement Note Debridement Note Wound debrided: Sacral Type of Debridement: Excisional debridement Anesthesia Used: 4% Lidocaine Solution Depth: Down to and including healthy tissue and in the subcutaneous layer Percentage of wound debrided: 100 Instrument Used: 5mm curette Tissue Removed: Slough and devitalized tissue Severity: Fat Layer Exposed Amount of bleeding with debridement: Mild Bleeding Controlled with: Pressure Patient tolerated procedure: Patient tolerated procedure well Post-Debridement Measurements and Additional Note: Post-Debridement Measurements/Treatment JESSICA - Nurse 1 - General Ulcer Assessment Start: 02/04/22 10:57 Freq: Status: Active Protocol: TOBIN Activity Type Activity Date Activity User E-sign Co-sign Detail Recorded Client Recorded Date Recorded By Document 02/04/22 10:58 DL [id number] 02/04/22 11:03 DL Document 02/11/22 09:59 F [id number] 02/11/22 10:10 BMF Document 02/18/22 10:18 BMF [id number] 02/18/22 10:26 BMF 02/04/22 02/11/22 02/18/22 10:58 09:59 10:18 - Today's Visit Information Type of service Follow-up Visit Follow-up Visit Follow-up Visit (Physician/[employer]ATOR (Physician/[employer]IVE [employer] OPERATOR (Physician/[employer]PERATOR ) ) ) Arrival Mode Wheelchair Wheelchair Wheelchair Transfer Assistance Manual Other Manual Transfer Assist (Other) x2 2 3 Accompanied by mom mom Patient Identification Verified (Name & Yes Yes Yes ) Patient Requires Transmission-Based No No Precautions Safety Precautions NA Vital Signs Temperature (97.8 F-99.1 F) 97.9 F 97.1 F L 98 F Temperature Source Temporal Temporal Temporal Pulse Rate (60-100) 113 H 105 H 104 H Pulse Location Monitor Monitor Monitor Respiratory Rate (12-18) 20 H 16 16 Respiratory rate source Observation Observation Observation Oxygen Delivery Method Room Air Room Air Blood Pressure (90/60-120/80) 136/89 H 136/67 H 148/97 H Blood Pressure Mean (mm Hg) 104 90 114 Source Monitor Monitor Monitor Position Sitting Sitting Blood Pressure Location Right Forearm Right Forearm History Since Last Visit- (Skip if this is Patient's initial visit) Have you changed medications since your No No No last visit? Any new allergies or adverse reactions No No No Had a fall/change in ADL's that may No No No increase risk of falls Signs or symptoms of abuse and/or No No No neglect since last visit Have you been in the hospital since your No No No last visit? Has dressing in place as prescribed Yes No Yes Has compression in place as prescribed N/A N/A N/A Has offloadiing in place as prescribed Yes N/A N/A Experienced any changes in pain level or No No No management Left Footwear Other Footwear (Comment) Right Footwear Other Footwear (Comment) Other Footwear heel protector Pain Scale: 0-10 Numeric Is Patient Pain Free? Yes Yes Yes - Nurse 1 - General Ulcer Measurement Start: 02/04/22 10:57 Freq: Status: Active Protocol: Activity Type Activity Date Activity User E-sign Co-sign Detail Recorded Client Recorded Date Recorded By Document 02/04/22 10:58 DL [id number] 02/04/22 11:03 DL Document 02/11/22 09:59 [facility] [id number] 02/11/22 10:10 BMF Document 02/18/22 10:18 [facility] [id number] 02/18/22 10:26 BMF 02/04/22 02/11/22 02/18/22 10:58 09:59 10:18 Wound Center Nurse 1 #6- sacral cluster -Combined with other wound No No -Current Size (cm) - Length 3 2.4 3 -Current Size (cm) - Width 4 4.5 5.5 -Current Size (cm) - Depth 0.2 0.3 0.5 -Total Square Cm 12 10.80 16.5 -Date of Last Picture (Recall this 02/11/22 02/18/22 field) -Photo Taken No Yes Yes -Epithelialization None Present Small 1-33% -Tunneling No No -Undermining/Tunneling No No -Circular Undermining No No -Exudate Amt Medium Medium Medium -Exudate Type Serosanguineous Serous Serosanguineous -Wound Margin Distinct, Distinct, Thickened Outline Outline Attached Attached -Granulation Amt Medium (34-66%) Large (67-100%) Large (67-100%) -Granulation Quality Red Red Red -Slough/Fibrin Yes -Necrosis Amt Medium (34-66%) Small (1-33%) -Necrotic Tissue Type Adherent Slough Adherent Slough -Structure Exposed N/A -Texture (Patience-wound Skin Appearance) Excoriation, Assessed, Assessed, Scarring,Rash Scarring Scarring -Moisture (Patience-wound Skin Appearance) No Abnormality Assessed, Assessed Maceration -Color (Patience-wound Skin Appearance) No Abnormality Assessed,Rubor Assessed -Temperature (Patience-wound Skin No Abnormality No Abnormality No Abnormality Appearance) (Pt Warm) (Pt Warm) (Pt Warm) -Tenderness on Palpation (Patience-wound No No No Skin Appearance) -Ulcer Cleansing Soap and Water Soap and Water Soap and Water -Foul Odor after Cleansing No No No -Anesthetic Used 5% Lidocaine 5% Lidocaine 5% Lidocaine Gel Gel Gel WC - Nurse 2 - General Ulcer CM Notes Start: 02/04/22 10:57 Freq: Status: Active Protocol: Activity Type Activity Date Activity User E-sign Co-sign Detail Recorded Client Recorded Date Recorded By Document 02/04/22 11:15 MW [id number] 02/04/22 11:26 MW Edit Result 02/04/22 11:15 MW (1) [id number] 02/05/22 06:41 PL Document 02/11/22 10:18 MW [id number] 02/11/22 10:28 MW Document 02/18/22 10:47 MW [id number] 02/18/22 10:57 MW (1) #6- sacral cluster - Apply Skin Sub - 1st 25 sq cm - Legs => 1 02/04/22 02/11/22 02/18/22 11:15 10:18 10:47 Wound Center Nurse 2 #6- sacral cluster -Time 11:16 10:19 10:48 -Correct Patient Yes Yes Yes -Correct Side, Site, Position Yes Yes Yes -Correct Procedure Yes Yes Yes -Procedure Performed Yes Yes Yes -Type of Procedure Debridement Debridement Debridement -Clinical Debridement Subcutaneous Subcutaneous Subcutaneous -Tissue Removed Subcutaneous Subcutaneous Subcutaneous -Post Debridement (cm) - Length 2.5 2.0 2.4 -Post Debridement (cm) - Width 5.2 5.0 5.2 -Post Debridement (cm) - Depth 0.3 0.2 0.3 -Total Square (Post) (cm) 13.00 10.00 12.48 -Area of Debridement (cm) - Length 2.5 2.0 2.4 -Area of Debridement (cm) - Width 5.2 5.0 5.2 -Total Square (Area) (cm) 13.00 10.00 12.48 -Tunneling No No No -Undermining/Tunneling No No No -Circular Undermining No No No -Wound/Ulcer Outcome Not Healed Not Healed Not Healed -Ulcer Cleansing Rinsed/ Rinsed/ Rinsed/ Irrigated with Irrigated with Irrigated with Saline Saline Saline -Foul Odor after Cleansing No No No -Bioengineered Tissue Yes Yes Yes -Type of Bioengineered Tissue Epifix Mesh Epifix Mesh Epifix Mesh -Expiration Date 12/04/26 12/04/26 12/04/26 -Product Lot Number [id number] -Percent Used 100 100 100 -Lot number of Saline Used [id number] -Bleeding Controlled with Pressure Pressure Pressure -Treatment Response Procedure Procedure Procedure Tolerated Well Tolerated Well Tolerated Well -Offloading No No No -Debridement - Subq, 1st 20sq cm No No No -Apply Skin Sub - 1st 25 sq cm - Legs 1 1 1 -Epifix Mesh (per sq cm) 11 11 11 Pain Scale: 0-10 Numeric Is Patient Pain Free? Yes Yes Yes - Nurse 3 - General Ulcer D/C NN Start: 02/04/22 10:57 Freq: Status: Active Protocol: Activity Type Activity Date Activity User E-sign Co-sign Detail Recorded Client Recorded Date Recorded By Document 02/04/22 11:28 [id number] 02/04/22 11:29 MW Document 02/11/22 10:38 ID [id number] 02/11/22 10:39 MT Document 02/18/22 11:09 [facility] [id number] 02/18/22 11:10 [facility] 02/04/22 02/11/22 02/18/22 11:28 10:38 11:09 Wound Care Nurse 3 #6- sacral cluster -Ulcer Cleansing Not Cleansed -Foul Odor after Cleansing No -Negative Pressure Wound Therapy N/A -Primary Dressing Applied Aquacel AG 4x4 Aquacel Extra -Other Dressing ABD PAD abd pad and epifix aquacel extra -Primary Dressing Covered/Secured with Secured with Dry Gauze, Secured with Tape Secured with Tape Tape -Other Covering abd -Aquacel Extra 1 -Aquacel AG 4x4 1 Treatment Response Procedure Tolerated Well Pain Scale: 0-10 Numeric Is Patient Pain Free? Yes Yes Yes Teaching: Wound Center Dressing Your Wound -Person Taught Patient -Teaching Method Discussion -Response to teaching Verbalize understanding WC - Visit Discharge Discharge Condition Stable Stable Stable Ambulatory Status Ambulatory Wheelchair Wheelchair Transportation Private Auto Private Auto Accompanied by MOM mom Medication Reconcilliation completed & No No provided to patient/care provider Clinical Summary of Care Provided Yes Yes Notes: explained to pt and mother they need to keep wound dry. pt and mother verbalized understanding. Assessment/Plan Assessment/Plan (1) Pressure ulcer of sacral region, stage 3: CODE(S): L89.153 - Pressure ulcer of sacral region, stage 3 (2) Spina bifida: CODE(S): Q05.9 - Spina bifida, unspecified PLAN: Plan Debridement done as documented above, procedure was well-tolerated. 5th application of Epifix done today using 100% of product. Moistened with saline. Covered with wound veil and secured with Steri-Strips. Leave in place for a week. Aquacel extra to help with drainage. Change outer dressing when soiled. Continue adequate protein intake, vitamin C and zinc. Their questions were answered and they were advised to call with any further questions or concerns. Follow-up in a week. This note was generated with [employer] dictation software. It may contain incorrect words, spelling, and punctuation that were not noted in checking the note before signing.
[2022-02-25 10:40] VITALS: BP 143/105; PULSE 108; RESP 20; TEMP 36.2
--- NOTE | 2022-02-25 12:37 | PCM.WC.PN ---
History of Present Illness Date of Service: 02/25/22 Chief Complaint: Recurrent sacral pressure sore, Stage III. History of Wound: Ms. Crews is a 46-year-old woman with a history of spina bifida returns today with a 10 day history of breakdown and recurrence of a previous sacral pressure ulcer. She denies any known precipitating factor. Mother states that she noted it on the 07 of December. Has been applying dry dressing. No significant improvement. She typically a lot of moisture in the area and there has been. She otherwise feels well denies chills, fever nausea vomiting. Progress of Wound: Has had 5 applications of epi fix so far. Some improvement. Some improvement noted. Objective Data Objective Data Vital Signs: Vital Signs Temp Pulse Resp BP O2 Del Method 97.1 F L 108 H 20 H 143/105 H Room Air 02/25/22 10:40 02/25/22 10:40 02/25/22 10:40 02/25/22 10:40 02/18/22 10:18 Oxygen Delivery Method Room Air Charges/Coding Procedures Integumentary 150xxx-152xx: 70375 Skin sub graft trnk/arm/leg Physical Exam Const alert, oriented x3 and no apparent distress General Appearance: cooperative and well kempt HEENT normocephalic and hearing grossly normal bilaterally Head and Scalp: normal to inspection and atraumatic Neck full ROM and supple Resp normal respiratory effort Effort and Inspection: able to speak in complete sentences Skin Wounds: wounds noted Neuro oriented x3, CN's II-XII intact bilaterally and moves all extremities Psych mental status grossly normal, cooperative and affect normal Appearance: grossly normal Attitude: calm Speech: normal speech Debridement Note Debridement Note Wound debrided: Sacral Type of Debridement: Excisional debridement Anesthesia Used: 4% Lidocaine Solution Depth: Down to and including healthy tissue and in the subcutaneous layer Percentage of wound debrided: 100 Instrument Used: 3mm curette Tissue Removed: Slough and devitalized tissue Severity: Fat Layer Exposed Amount of bleeding with debridement: Mild Bleeding Controlled with: Pressure Patient tolerated procedure: Patient tolerated procedure well Post-Debridement Measurements and Additional Note: Post-Debridement Measurements/Treatment JESSICA - Nurse 1 - General Ulcer Assessment Start: 02/04/22 10:57 Freq: Status: Active Protocol: TOBIN Activity Type Activity Date Activity User E-sign Co-sign Detail Recorded Client Recorded Date Recorded By Document 02/04/22 10:58 DL [id number] 02/04/22 11:03 DL Document 02/11/22 09:59 BMF [id number] 02/11/22 10:10 BMF Document 02/18/22 10:18 BMF [id number] 02/18/22 10:26 BMF Document 02/25/22 10:40 DL [id number] 02/25/22 10:49 DL 02/04/22 02/11/22 02/18/22 10:58 09:59 10:18 - Today's Visit Information Type of service Follow-up Visit Follow-up Visit Follow-up Visit (Physician/CLINICAL LAB SCIENTIST (Physician/CLINICAL LAB SCIENTIST (Physician/CLINICAL LAB SCIENTIST ) ) ) Arrival Mode Wheelchair Wheelchair Wheelchair Transfer Assistance Manual Other Manual Transfer Assist (Other) x2 2 3 Accompanied by mom mom Patient Identification Verified (Name & Yes Yes Yes ) Patient Requires Transmission-Based No No Precautions Safety Precautions NA Vital Signs Temperature (97.8 F-99.1 F) 97.9 F 97.1 F L 98 F Temperature Source Temporal Temporal Temporal Pulse Rate (60-100) 113 H 105 H 104 H Pulse Location Monitor Monitor Monitor Respiratory Rate (12-18) 20 H 16 16 Respiratory rate source Observation Observation Observation Oxygen Delivery Method Room Air Room Air Blood Pressure (90/60-120/80) 136/89 H 136/67 H 148/97 H Blood Pressure Mean (mm Hg) 104 90 114 Source Monitor Monitor Monitor Position Sitting Sitting Blood Pressure Location Right Forearm Right Forearm History Since Last Visit- (Skip if this is Patient's initial visit) Have you changed medications since your No No No last visit? Any new allergies or adverse reactions No No No Had a fall/change in ADL's that may No No No increase risk of falls Signs or symptoms of abuse and/or No No No neglect since last visit Have you been in the hospital since your No No No last visit? Has dressing in place as prescribed Yes No Yes Has compression in place as prescribed N/A N/A N/A Has offloadiing in place as prescribed Yes N/A N/A Experienced any changes in pain level or No No No management Left Footwear Other Footwear (Comment) Right Footwear Other Footwear (Comment) Other Footwear heel protector Pain Scale: 0-10 Numeric Is Patient Pain Free? Yes Yes Yes 02/25/22 10:40 WC - Today's Visit Information Type of service Follow-up Visit (Physician/CLINICAL LAB SCIENTIST ) Arrival Mode Wheelchair Transfer Assistance Manual Transfer Assist (Other) x2 Accompanied by Patient Identification Verified (Name & Yes ) Patient Requires Transmission-Based No Precautions Safety Precautions Vital Signs Temperature (97.8 F-99.1 F) 97.1 F L Temperature Source Temporal Pulse Rate (60-100) 108 H Pulse Location Monitor Respiratory Rate (12-18) 20 H Respiratory rate source Observation Oxygen Delivery Method Blood Pressure (90/60-120/80) 143/105 H Blood Pressure Mean (mm Hg) 117 Source Monitor Position Blood Pressure Location History Since Last Visit- (Skip if this is Patient's initial visit) Have you changed medications since your No last visit? Any new allergies or adverse reactions No Had a fall/change in ADL's that may No increase risk of falls Signs or symptoms of abuse and/or No neglect since last visit Have you been in the hospital since your No last visit? Has dressing in place as prescribed Yes Has compression in place as prescribed N/A Has offloadiing in place as prescribed Yes Experienced any changes in pain level or No management Left Footwear Right Footwear Other Footwear Pain Scale: 0-10 Numeric Is Patient Pain Free? Yes - Nurse 1 - General Ulcer Measurement Start: 02/04/22 10:57 Freq: Status: Active Protocol: Activity Type Activity Date Activity User E-sign Co-sign Detail Recorded Client Recorded Date Recorded By Document 02/04/22 10:58 DL [id number] 02/04/22 11:03 DL Document 02/11/22 09:59 [facility] [id number] 02/11/22 10:10 [facility] Document 02/18/22 10:18 BM [id number] 02/18/22 10:26 BM Document 02/25/22 10:40 DL [id number] 02/25/22 10:49 DL 02/04/22 02/11/22 02/18/22 10:58 09:59 10:18 Wound Center Nurse 1 #6- sacral cluster -Combined with other wound No No -Current Size (cm) - Length 3 2.4 3 -Current Size (cm) - Width 4 4.5 5.5 -Current Size (cm) - Depth 0.2 0.3 0.5 -Total Square Cm 12 10.80 16.5 -Date of Last Picture (Recall this 02/11/22 02/18/22 field) -Photo Taken No Yes Yes -Epithelialization None Present Small 1-33% -Tunneling No No -Undermining/Tunneling No No -Circular Undermining No No -Exudate Amt Medium Medium Medium -Exudate Type Serosanguineous Serous Serosanguineous -Wound Margin Distinct, Distinct, Thickened Outline Outline Attached Attached -Granulation Amt Medium (34-66%) Large (67-100%) Large (67-100%) -Granulation Quality Red Red Red -Slough/Fibrin Yes -Necrosis Amt Medium (34-66%) Small (1-33%) -Necrotic Tissue Type Adherent Slough Adherent Slough -Structure Exposed N/A -Texture (Patience-wound Skin Appearance) Excoriation, Assessed, Assessed, Scarring,Rash Scarring Scarring -Moisture (Patience-wound Skin Appearance) No Abnormality Assessed, Assessed Maceration -Color (Patience-wound Skin Appearance) No Abnormality Assessed,Rubor Assessed -Temperature (Patience-wound Skin No Abnormality No Abnormality No Abnormality Appearance) (Pt Warm) (Pt Warm) (Pt Warm) -Tenderness on Palpation (Patience-wound No No No Skin Appearance) -Ulcer Cleansing Soap and Water Soap and Water Soap and Water -Foul Odor after Cleansing No No No -Anesthetic Used 5% Lidocaine 5% Lidocaine 5% Lidocaine Gel Gel Gel 02/25/22 10:40 Wound Center Nurse 1 #6- sacral cluster -Combined with other wound -Current Size (cm) - Length 1.2 -Current Size (cm) - Width 4.8 -Current Size (cm) - Depth 0.3 -Total Square Cm 5.76 -Date of Last Picture (Recall this field) -Photo Taken No -Epithelialization -Tunneling -Undermining/Tunneling -Circular Undermining -Exudate Amt Medium -Exudate Type Serosanguineous -Wound Margin Distinct, Outline Attached -Granulation Amt Large (67-100%) -Granulation Quality [place],Red -Slough/Fibrin -Necrosis Amt None Present (0 %) -Necrotic Tissue Type -Structure Exposed N/A -Texture (Patience-wound Skin Appearance) Scarring -Moisture (Patience-wound Skin Appearance) No Abnormality -Color (Patience-wound Skin Appearance) No Abnormality -Temperature (Patience-wound Skin No Abnormality Appearance) (Pt Warm) -Tenderness on Palpation (Patience-wound Skin Appearance) -Ulcer Cleansing Rinsed/ Irrigated with Saline -Foul Odor after Cleansing No -Anesthetic Used 5% Lidocaine Gel WC - Nurse 2 - General Ulcer CM Notes Start: 02/04/22 10:57 Freq: Status: Active Protocol: Activity Type Activity Date Activity User E-sign Co-sign Detail Recorded Client Recorded Date Recorded By Document 02/04/22 11:15 MW [id number] 02/04/22 11:26 MW Edit Result 02/04/22 11:15 MW (1) [id number] 02/05/22 06:41 PL Document 02/11/22 10:18 MW [id number] 02/11/22 10:28 MW Document 02/18/22 10:47 MW [id number] 02/18/22 10:57 MW Document 02/25/22 10:57 MW [id number] 02/25/22 11:12 MW (1) #6- sacral cluster - Apply Skin Sub - 1st 25 sq cm - Legs => 1 02/04/22 02/11/22 02/18/22 11:15 10:18 10:47 Wound Center Nurse 2 #6- sacral cluster -Time 11:16 10:19 10:48 -Correct Patient Yes Yes Yes -Correct Side, Site, Position Yes Yes Yes -Correct Procedure Yes Yes Yes -Procedure Performed Yes Yes Yes -Type of Procedure Debridement Debridement Debridement -Clinical Debridement Subcutaneous Subcutaneous Subcutaneous -Tissue Removed Subcutaneous Subcutaneous Subcutaneous -Post Debridement (cm) - Length 2.5 2.0 2.4 -Post Debridement (cm) - Width 5.2 5.0 5.2 -Post Debridement (cm) - Depth 0.3 0.2 0.3 -Total Square (Post) (cm) 13.00 10.00 12.48 -Area of Debridement (cm) - Length 2.5 2.0 2.4 -Area of Debridement (cm) - Width 5.2 5.0 5.2 -Total Square (Area) (cm) 13.00 10.00 12.48 -Tunneling No No No -Undermining/Tunneling No No No -Circular Undermining No No No -Wound/Ulcer Outcome Not Healed Not Healed Not Healed -Ulcer Cleansing Rinsed/ Rinsed/ Rinsed/ Irrigated with Irrigated with Irrigated with Saline Saline Saline -Foul Odor after Cleansing No No No -Bioengineered Tissue Yes Yes Yes -Type of Bioengineered Tissue Epifix Mesh Epifix Mesh Epifix Mesh -Expiration Date 12/04/26 12/04/26 12/04/26 -Product Lot Number [id number] -Percent Used 100 100 100 -Lot number of Saline Used [id number] -Bleeding Controlled with Pressure Pressure Pressure -Treatment Response Procedure Procedure Procedure Tolerated Well Tolerated Well Tolerated Well -Offloading No No No -Debridement - Subq, 1st 20sq cm No No No -Apply Skin Sub - 1st 25 sq cm - Legs 1 1 1 -Epifix (per sq cm) -Epifix Mesh (per sq cm) 11 11 11 Pain Scale: 0-10 Numeric Is Patient Pain Free? Yes Yes Yes 02/25/22 10:57 Wound Center Nurse 2 #6- sacral cluster -Time 10:57 -Correct Patient Yes -Correct Side, Site, Position Yes -Correct Procedure Yes -Procedure Performed Yes -Type of Procedure Debridement -Clinical Debridement Subcutaneous -Tissue Removed Subcutaneous -Post Debridement (cm) - Length 2.0 -Post Debridement (cm) - Width 4.7 -Post Debridement (cm) - Depth 0.2 -Total Square (Post) (cm) 9.40 -Area of Debridement (cm) - Length 2.0 -Area of Debridement (cm) - Width 4.7 -Total Square (Area) (cm) 9.40 -Tunneling No -Undermining/Tunneling No -Circular Undermining No -Wound/Ulcer Outcome Not Healed -Ulcer Cleansing Rinsed/ Irrigated with Saline -Foul Odor after Cleansing No -Bioengineered Tissue Yes -Type of Bioengineered Tissue Epifix -Expiration Date 11/04/26 -Product Lot Number [id number] -Percent Used 100 -Lot number of Saline Used [id number] -Bleeding Controlled with Pressure -Treatment Response Procedure Tolerated Well -Offloading No -Debridement - Subq, 1st 20sq cm No -Apply Skin Sub - 1st 25 sq cm - Legs 1 -Epifix (per sq cm) 4 -Epifix Mesh (per sq cm) Pain Scale: 0-10 Numeric Is Patient Pain Free? Yes - Nurse 3 - General Ulcer D/C NN Start: 02/04/22 10:57 Freq: Status: Active Protocol: Activity Type Activity Date Activity User E-sign Co-sign Detail Recorded Client Recorded Date Recorded By Document 02/04/22 11:28 MW [id number] 02/04/22 11:29 MW Document 02/11/22 10:38 MT [id number] 02/11/22 10:39 MT Document 02/18/22 11:09 [facility] [id number] 02/18/22 11:10 [facility] 02/04/22 02/11/22 02/18/22 11:28 10:38 11:09 Wound Care Nurse 3 #6- sacral cluster -Ulcer Cleansing Not Cleansed -Foul Odor after Cleansing No -Negative Pressure Wound Therapy N/A -Primary Dressing Applied Aquacel AG 4x4 Aquacel Extra -Other Dressing ABD PAD abd pad and epifix aquacel extra -Primary Dressing Covered/Secured with Secured with Dry Gauze, Secured with Tape Secured with Tape Tape -Other Covering abd -Aquacel Extra 1 -Aquacel AG 4x4 1 Treatment Response Procedure Tolerated Well Pain Scale: 0-10 Numeric Is Patient Pain Free? Yes Yes Yes Teaching: Wound Center Dressing Your Wound -Person Taught Patient -Teaching Method Discussion -Response to teaching Verbalize understanding WC - Visit Discharge Discharge Condition Stable Stable Stable Ambulatory Status Ambulatory Wheelchair Wheelchair Transportation Private Auto Private Auto Accompanied by MOM mom Medication Reconcilliation completed & No No provided to patient/care provider Clinical Summary of Care Provided Yes Yes Notes: explained to pt and mother they need to keep wound dry. pt and mother verbalized understanding. Assessment/Plan Assessment/Plan (1) Pressure ulcer of sacral region, stage 3: CODE(S): L89.153 - Pressure ulcer of sacral region, stage 3 (2) Spina bifida: CODE(S): Q05.9 - Spina bifida, unspecified PLAN: Plan Debridement done as documented above, procedure was well-tolerated. Improving. 6th application of Epifix done today using 100% of product. Moistened with saline. Covered with wound veil and secured with Steri-Strips. Leave in place for a week. Aquacel extra to help with drainage. Change outer dressing when soiled. Continue adequate protein intake, vitamin C and zinc. Their questions were answered and they were advised to call with any further questions or concerns. Follow-up in a week. This note was generated with [employer] dictation software. It may contain incorrect words, spelling, and punctuation that were not noted in checking the note before signing.
== END 2022-03-05 23:59 | disposition home or self-care (01) ==
LOC: WC 10:30
PROVIDERS: PCP Nurse Practitioner Family; Visit Provider Internal Medicine
DX: L89.153 Pressure ulcer of sacral region, stage 3 (principal); Q05.9 Spina bifida, unspecified
CPT/HCPCS: 15271; Q4186

== ENCOUNTER 2022-03-25 10:45 | Outpatient (RCR) | payer MEDICARE, MEDICAID, SELFPAY ==
[2022-03-06 01:28] VITALS: BP 143/105; PULSE 108; RESP 20; TEMP 36.2
[2022-03-11 10:45] VITALS: BP 181/98; PULSE 96; RESP 18; TEMP 36.1
--- NOTE | 2022-03-11 12:43 | PN.PCM_ITS ---
History of Present Illness Date of Service: 03/11/22 Chief Complaint: Recurrent sacral pressure sore, Stage III. History of Wound: Ms. Crews is a 46-year-old woman with a history of spina bifida returns today with a 10 day history of breakdown and recurrence of a previous sacral pressure ulcer. She denies any known precipitating factor. Mother states that she noted it on the 07 of December. Has been applying dry dressing. No significant improvement. She typically a lot of moisture in the area and there has been. She otherwise feels well denies chills, fever nausea vomiting. Progress of Wound: Has had 6 applications of epi fix so far. Improving. No new concerns at this time. Objective Data Objective Data Vital Signs: Vital Signs Temp Pulse Resp BP 97 F L 96 18 181/98 H 03/11/22 10:45 03/11/22 10:45 03/11/22 10:45 03/11/22 10:45 Charges/Coding Procedures Integumentary 150xxx-152xx: 73805 Skin sub graft trnk/arm/leg Physical Exam Const alert, oriented x3 and no apparent distress General Appearance: cooperative and well kempt HEENT normocephalic and hearing grossly normal bilaterally Head and Scalp: normal to inspection and atraumatic Neck full ROM and supple Resp normal respiratory effort Effort and Inspection: able to speak in complete sentences Skin Wounds: wounds noted Neuro oriented x3, CN's II-XII intact bilaterally and moves all extremities Psych mental status grossly normal, cooperative and affect normal Appearance: grossly normal Attitude: calm Speech: normal speech Debridement Note Debridement Note Wound debrided: Sacral Type of Debridement: Excisional debridement Anesthesia Used: 4% Lidocaine Solution Depth: Down to and including healthy tissue and in the subcutaneous layer Percentage of wound debrided: 100 Instrument Used: 3mm curette Tissue Removed: Slough and devitalized tissue Severity: Fat Layer Exposed Amount of bleeding with debridement: Mild Bleeding Controlled with: Pressure Patient tolerated procedure: Patient tolerated procedure well Post-Debridement Measurements and Additional Note: Post-Debridement Measurements/Treatment JESSICA - Nurse 1 - General Ulcer Assessment Start: 03/11/22 10:45 Freq: Status: Active Protocol: TOBIN Activity Type Activity Date Activity User E-sign Co-sign Detail Recorded Client Recorded Date Recorded By Document 03/11/22 10:45 ALFREDO [id number] 03/11/22 10:55 RB 03/11/22 10:45 - Today's Visit Information Type of service Follow-up Visit (Physician/LEAN MANAGER ) Arrival Mode Wheelchair Transfer Assistance Manual Patient Identification Verified (Name & Yes ) Patient Requires Transmission-Based No Precautions Vital Signs Temperature (97.8 F-99.1 F) 97 F L Temperature Source Temporal Pulse Rate (60-100) 96 Pulse Location Monitor Respiratory Rate (12-18) 18 Respiratory rate source Observation Blood Pressure (90/60-120/80) 181/98 H Blood Pressure Mean (mm Hg) 125 Source Monitor Position Semi-Fowlers Blood Pressure Location Left Arm History Since Last Visit- (Skip if this is Patient's initial visit) Have you changed medications since your No last visit? Any new allergies or adverse reactions No Had a fall/change in ADL's that may No increase risk of falls Signs or symptoms of abuse and/or No neglect since last visit Have you been in the hospital since your No last visit? Has dressing in place as prescribed Yes Has compression in place as prescribed No Has offloadiing in place as prescribed Yes Experienced any changes in pain level or No management Pain Scale: 0-10 Numeric Is Patient Pain Free? Yes - Nurse 1 - General Ulcer Measurement Start: 03/11/22 10:45 Freq: Status: Active Protocol: Activity Type Activity Date Activity User E-sign Co-sign Detail Recorded Client Recorded Date Recorded By Document 03/11/22 10:45 RB [id number] 03/11/22 10:55 RB 03/11/22 10:45 Wound Center Nurse 1 #6- sacral cluster -Combined with other wound No -Current Size (cm) - Length 0.4 -Current Size (cm) - Width 0.9 -Current Size (cm) - Depth 0.3 -Total Square Cm 0.36 -Photo Taken Yes -Tunneling No -Undermining/Tunneling No -Circular Undermining No -Exudate Amt Medium -Exudate Type Serosanguineous -Wound Margin Thickened & Rolled Under -Granulation Amt Medium (34-66%) -Granulation Quality [place] -Slough/Fibrin Yes -Necrosis Amt Medium (34-66%) -Necrotic Tissue Type Adherent Slough -Structure Exposed N/A -Texture (Patience-wound Skin Appearance) Scarring -Moisture (Patience-wound Skin Appearance) Assessed -Color (Patience-wound Skin Appearance) Assessed -Temperature (Patience-wound Skin No Abnormality Appearance) (Pt Warm) -Tenderness on Palpation (Patience-wound No Skin Appearance) -Ulcer Cleansing Wound Cleanser -Foul Odor after Cleansing No -Anesthetic Used 5% Lidocaine Gel WC - Nurse 2 - General Ulcer CM Notes Start: 03/11/22 10:45 Freq: Status: Active Protocol: Activity Type Activity Date Activity User E-sign Co-sign Detail Recorded Client Recorded Date Recorded By Document 03/11/22 11:24 MW [id number] 03/11/22 11:31 MW 03/11/22 11:24 Wound Center Nurse 2 -Time 11:24 -Correct Patient Yes -Correct Side, Site, Position Yes -Correct Procedure Yes -Procedure Performed Yes -Type of Procedure Debridement -Clinical Debridement Subcutaneous -Tissue Removed Subcutaneous -Post Debridement (cm) - Length 0.4 -Post Debridement (cm) - Width 1.2 -Post Debridement (cm) - Depth 0.2 -Total Square (Post) (cm) 0.48 -Area of Debridement (cm) - Length 0.4 -Area of Debridement (cm) - Width 1.2 -Total Square (Area) (cm) 0.48 -Tunneling No -Undermining/Tunneling No -Circular Undermining No -Wound/Ulcer Outcome Not Healed -Ulcer Cleansing Rinsed/ Irrigated with Saline -Foul Odor after Cleansing No -Bioengineered Tissue Yes -Type of Bioengineered Tissue Epifix 18mm Disc -Expiration Date 12/04/26 -Product Lot Number [id number] -Percent Used 100 -Lot number of Saline Used [id number] -Bleeding Controlled with Pressure -Treatment Response Procedure Tolerated Well -Offloading No -Debridement - Subq, 1st 20sq cm No -Apply Skin Sub - each addt'l 25 sq cm 1 - Legs -Epifix 18mm Disc 3 Pain Scale: 0-10 Numeric Is Patient Pain Free? Yes - Nurse 3 - General Ulcer D/C NN Start: 03/11/22 10:45 Freq: Status: Active Protocol: Activity Type Activity Date Activity User E-sign Co-sign Detail Recorded Client Recorded Date Recorded By Document 03/11/22 11:37 BMF [id number] 03/11/22 11:38 BMF 03/11/22 11:37 Wound Care Nurse 3 #6- sacral cluster -Primary Dressing Applied Aquacel Extra -Other Dressing EPIFIX -Other Covering ABD, PER RB RN -Aquacel Extra 1 Treatment Response Procedure Tolerated Well Pain Scale: 0-10 Numeric Is Patient Pain Free? Yes WC - Visit Discharge Discharge Condition Stable Ambulatory Status Wheelchair Transportation Private Auto Accompanied by MOM Assessment/Plan Assessment/Plan (1) Pressure ulcer of sacral region, stage 3: CODE(S): L89.153 - Pressure ulcer of sacral region, stage 3 (2) Spina bifida: CODE(S): Q05.9 - Spina bifida, unspecified PLAN: Plan Debridement done as documented above, procedure was well-tolerated. Improving. 7th application of Epifix done today using 100% of product. Moistened with saline. Covered with wound veil and secured with Steri-Strips. Leave in place for a week. Aquacel extra to help with drainage. Change outer dressing when soiled. Continue adequate protein intake, vitamin C and zinc. Their questions were answered and they were advised to call with any further questions or concerns. Follow-up in a week. This note was generated with [employer] dictation software. It may contain incorrect words, spelling, and punctuation that were not noted in checking the note before signing.
[2022-03-18 10:43] VITALS: BP 151/92; PULSE 100; RESP 18; TEMP 35.8
--- NOTE | 2022-03-18 13:19 | PN.PCM_ITS ---
History of Present Illness Date of Service: 03/18/22 Chief Complaint: Recurrent sacral pressure sore, Stage III. History of Wound: Ms. Crews is a 46-year-old woman with a history of spina bifida returns today with a 10 day history of breakdown and recurrence of a previous sacral pressure ulcer. She denies any known precipitating factor. Mother states that she noted it on the 07 of December. Has been applying dry dressing. No significant improvement. She typically a lot of moisture in the area and there has been. She otherwise feels well denies chills, fever nausea vomiting. Progress of Wound: Has had 7 applications of epi fix so far. Mild skin tear in the previously healed area otherwise, no acute concern. Objective Data Objective Data Vital Signs: Vital Signs Temp Pulse Resp BP 96.4 F L 100 18 151/92 H 03/18/22 10:43 03/18/22 10:43 03/18/22 10:43 03/18/22 10:43 Charges/Coding Procedures Integumentary 150xxx-152xx: 86968 Skin sub graft trnk/arm/leg Physical Exam Const alert, oriented x3 and no apparent distress General Appearance: cooperative and well kempt HEENT normocephalic and hearing grossly normal bilaterally Head and Scalp: normal to inspection and atraumatic Neck full ROM and supple Resp normal respiratory effort Effort and Inspection: able to speak in complete sentences Skin Wounds: wounds noted Neuro oriented x3, CN's II-XII intact bilaterally and moves all extremities Psych mental status grossly normal, cooperative and affect normal Appearance: grossly normal Attitude: calm Speech: normal speech Debridement Note Debridement Note Wound debrided: Sacral Type of Debridement: Excisional debridement Anesthesia Used: 4% Lidocaine Solution Depth: Down to and including healthy tissue and in the subcutaneous layer Percentage of wound debrided: 100 Instrument Used: 3mm curette Tissue Removed: Slough and devitalized tissue Severity: Fat Layer Exposed Amount of bleeding with debridement: Mild Bleeding Controlled with: Pressure Patient tolerated procedure: Patient tolerated procedure well Post-Debridement Measurements and Additional Note: Post-Debridement Measurements/Treatment JESSICA - Nurse 1 - General Ulcer Assessment Start: 03/11/22 10:45 Freq: Status: Active Protocol: TOBIN Activity Type Activity Date Activity User E-sign Co-sign Detail Recorded Client Recorded Date Recorded By Document 03/11/22 10:45 RB [id number] 03/11/22 10:55 RB Document 03/18/22 10:43 DL [id number] 03/18/22 10:54 DL 03/11/22 03/18/22 10:45 10:43 - Today's Visit Information Type of service Follow-up Visit Follow-up Visit (Physician/NEEDLE LEADER (Physician/NEEDLE LEADER ) ) Arrival Mode Wheelchair Wheelchair Transfer Assistance Manual Manual Transfer Assist (Other) x2 Patient Identification Verified (Name & Yes Yes ) Patient Requires Transmission-Based No Precautions Vital Signs Temperature (97.8 F-99.1 F) 97 F L 96.4 F L Temperature Source Temporal Temporal Pulse Rate (60-100) 96 100 Pulse Location Monitor Monitor Respiratory Rate (12-18) 18 18 Respiratory rate source Observation Observation Blood Pressure (90/60-120/80) 181/98 H 151/92 H Blood Pressure Mean (mm Hg) 125 111 Source Monitor Monitor Position Semi-Fowlers Blood Pressure Location Left Arm History Since Last Visit- (Skip if this is Patient's initial visit) Have you changed medications since your No No last visit? Any new allergies or adverse reactions No No Had a fall/change in ADL's that may No No increase risk of falls Signs or symptoms of abuse and/or No No neglect since last visit Have you been in the hospital since your No No last visit? Has dressing in place as prescribed Yes Yes Has compression in place as prescribed No N/A Has offloadiing in place as prescribed Yes Yes Experienced any changes in pain level or No No management Pain Scale: 0-10 Numeric Is Patient Pain Free? Yes Yes - Nurse 1 - General Ulcer Measurement Start: 03/11/22 10:45 Freq: Status: Active Protocol: Activity Type Activity Date Activity User E-sign Co-sign Detail Recorded Client Recorded Date Recorded By Document 03/11/22 10:45 RB [id number] 03/11/22 10:55 RB Document 03/18/22 10:43 DL [id number] 03/18/22 10:54 DL 03/11/22 03/18/22 10:45 10:43 Wound Center Nurse 1 #6- sacral cluster -Combined with other wound No -Current Size (cm) - Length 0.4 1 -Current Size (cm) - Width 0.9 4.5 -Current Size (cm) - Depth 0.3 0.3 -Total Square Cm 0.36 4.5 -Photo Taken Yes Yes -Tunneling No -Undermining/Tunneling No -Circular Undermining No -Exudate Amt Medium Small -Exudate Type Serosanguineous Serosanguineous -Wound Margin Thickened & Distinct, Rolled Under Outline Attached -Granulation Amt Medium (34-66%) Small (1-33%) -Granulation Quality [place] -Slough/Fibrin Yes -Necrosis Amt Medium (34-66%) Small (1-33%) -Necrotic Tissue Type Adherent Slough Adherent Slough -Structure Exposed N/A N/A -Texture (Patience-wound Skin Appearance) Scarring Scarring -Moisture (Patience-wound Skin Appearance) Assessed No Abnormality -Color (Patience-wound Skin Appearance) Assessed No Abnormality -Temperature (Patience-wound Skin No Abnormality No Abnormality Appearance) (Pt Warm) (Pt Warm) -Tenderness on Palpation (Patience-wound No No Skin Appearance) -Ulcer Cleansing Wound Cleanser Rinsed/ Irrigated with Saline -Foul Odor after Cleansing No No -Anesthetic Used 5% Lidocaine 5% Lidocaine Gel Gel WC - Nurse 2 - General Ulcer CM Notes Start: 03/11/22 10:45 Freq: Status: Active Protocol: Activity Type Activity Date Activity User E-sign Co-sign Detail Recorded Client Recorded Date Recorded By Document 03/11/22 11:24 MW [id number] 03/11/22 11:31 MW Edit Result 03/11/22 11:24 MW (1) [id number] 03/12/22 06:54 PL Document 03/18/22 11:10 MW [id number] 03/18/22 11:19 MW (1) #6- sacral cluster - Apply Skin Sub - 1st 25 sq cm - Legs => 1 - Apply Skin Sub - each addt'l 25 sq cm 1 => - Legs 03/11/22 03/18/22 11:24 11:10 Wound Center Nurse 2 #6- sacral cluster -Time 11:24 11:12 -Correct Patient Yes Yes -Correct Side, Site, Position Yes Yes -Correct Procedure Yes Yes -Procedure Performed Yes Yes -Type of Procedure Debridement Debridement -Clinical Debridement Subcutaneous Subcutaneous -Tissue Removed Subcutaneous Subcutaneous -Post Debridement (cm) - Length 0.4 0.5 -Post Debridement (cm) - Width 1.2 1.0 -Post Debridement (cm) - Depth 0.2 0.2 -Total Square (Post) (cm) 0.48 0.50 -Area of Debridement (cm) - Length 0.4 0.5 -Area of Debridement (cm) - Width 1.2 1.0 -Total Square (Area) (cm) 0.48 0.50 -Tunneling No No -Undermining/Tunneling No No -Circular Undermining No No -Wound/Ulcer Outcome Not Healed Not Healed -Ulcer Cleansing Rinsed/ Rinsed/ Irrigated with Irrigated with Saline Saline -Foul Odor after Cleansing No No -Bioengineered Tissue Yes Yes -Type of Bioengineered Tissue Epifix 18mm Epifix 18mm Disc Disc -Expiration Date 12/04/26 12/04/26 -Product Lot Number [id number] -Percent Used 100 100 -Lot number of Saline Used [id number] -Bleeding Controlled with Pressure Pressure -Treatment Response Procedure Procedure Tolerated Well Tolerated Well -Offloading No No -Debridement - Subq, 1st 20sq cm No No -Apply Skin Sub - 1st 25 sq cm - Legs 1 1 -Epifix 18mm Disc 3 3 Pain Scale: 0-10 Numeric Is Patient Pain Free? Yes Yes WC - Nurse 3 - General Ulcer D/C NN Start: 03/11/22 10:45 Freq: Status: Active Protocol: Activity Type Activity Date Activity User E-sign Co-sign Detail Recorded Client Recorded Date Recorded By Document 03/11/22 11:37 [facility] [id number] 03/11/22 11:38 [facility] Document 03/18/22 11:33 [facility] [id number] 03/18/22 11:34 [facility] 03/11/22 03/18/22 11:37 11:33 Wound Care Nurse 3 #6- sacral cluster -Primary Dressing Applied Aquacel Extra Aquacel Extra -Other Dressing EPIFIX epifix; abd -Primary Dressing Covered/Secured with Secured with Tape -Other Covering ABD, PER RB RN drsg per dl rides attendant -Aquacel Extra 1 1 Treatment Response Procedure Procedure Tolerated Well Tolerated Well Pain Scale: 0-10 Numeric Is Patient Pain Free? Yes Yes WC - Visit Discharge Discharge Condition Stable Stable Ambulatory Status Wheelchair Wheelchair Transportation Private Auto Private Auto Accompanied by MOM mom Assessment/Plan Assessment/Plan (1) Pressure ulcer of sacral region, stage 3: CODE(S): L89.153 - Pressure ulcer of sacral region, stage 3 (2) Spina bifida: CODE(S): Q05.9 - Spina bifida, unspecified PLAN: Plan Debridement done as documented above, procedure was well-tolerated. Stable. 8th application of Epifix done today using 100% of product. Moistened with saline. Covered with wound veil and secured with Steri-Strips. Leave in place for a week. Aquacel extra to help with drainage. Change outer dressing when soiled. Continue adequate protein intake, vitamin C and zinc. Their questions were answered and they were advised to call with any further questions or concerns. Follow-up in a week. This note was generated with [employer] dictation software. It may contain incorrect words, spelling, and punctuation that were not noted in checking the note before signing.
[2022-03-25 11:26] VITALS: BP 160/85; PULSE 72; RESP 20; TEMP 36
--- NOTE | 2022-03-25 12:46 | PN.PCM_ITS ---
History of Present Illness Date of Service: 03/25/22 Chief Complaint: Recurrent sacral pressure sore, Stage III. History of Wound: Ms. Crews is a 46-year-old woman with a history of spina bifida returns today with a 10 day history of breakdown and recurrence of a previous sacral pressure ulcer. She denies any known precipitating factor. Mother states that she noted it on the 07 of December. Has been applying dry dressing. No significant improvement. She typically a lot of moisture in the area and there has been. She otherwise feels well denies chills, fever nausea vomiting. Progress of Wound: Has had 8 applications of epi fix so far. Improving. No new concerns at this time. Objective Data Objective Data Vital Signs: Vital Signs Temp Pulse Resp BP 96.8 F L 72 20 H 160/85 H 03/25/22 11:26 03/25/22 11:26 03/25/22 11:26 03/25/22 11:26 Charges/Coding Procedures Integumentary 150xxx-152xx: 04517 Skin sub graft trnk/arm/leg Physical Exam Const alert, oriented x3 and no apparent distress General Appearance: cooperative and well kempt HEENT normocephalic and hearing grossly normal bilaterally Head and Scalp: normal to inspection and atraumatic Neck full ROM and supple Resp normal respiratory effort Effort and Inspection: able to speak in complete sentences Skin Wounds: wounds noted Neuro oriented x3, CN's II-XII intact bilaterally and moves all extremities Psych mental status grossly normal, cooperative and affect normal Appearance: grossly normal Attitude: calm Speech: normal speech Debridement Note Debridement Note Wound debrided: Sacral Type of Debridement: Excisional debridement Anesthesia Used: 4% Lidocaine Solution Depth: Down to and including healthy tissue and in the subcutaneous layer Percentage of wound debrided: 100 Instrument Used: 3mm curette Tissue Removed: Slough and devitalized tissue Severity: Fat Layer Exposed Amount of bleeding with debridement: Mild Bleeding Controlled with: Pressure Patient tolerated procedure: Patient tolerated procedure well Post-Debridement Measurements and Additional Note: Post-Debridement Measurements/Treatment JESSICA - Nurse 1 - General Ulcer Assessment Start: 03/11/22 10:45 Freq: Status: Active Protocol: TOBIN Activity Type Activity Date Activity User E-sign Co-sign Detail Recorded Client Recorded Date Recorded By Document 03/11/22 10:45 RB [id number] 03/11/22 10:55 RB Document 03/18/22 10:43 DL [id number] 03/18/22 10:54 DL Document 03/25/22 11:26 DL [id number] 03/25/22 11:27 DL 03/11/22 03/18/22 03/25/22 10:45 10:43 11:26 WC - Today's Visit Information Type of service Follow-up Visit Follow-up Visit Follow-up Visit (Physician/SHANK CARRIER (Physician/SHANK CARRIER (Physician/SHANK CARRIER ) ) ) Arrival Mode Wheelchair Wheelchair Wheelchair Transfer Assistance Manual Manual Manual Transfer Assist (Other) x2 x2 Patient Identification Verified (Name & Yes Yes Yes ) Patient Requires Transmission-Based No No Precautions Vital Signs Temperature (97.8 F-99.1 F) 97 F L 96.4 F L 96.8 F L Temperature Source Temporal Temporal Temporal Pulse Rate (60-100) 96 100 72 Pulse Location Monitor Monitor Monitor Respiratory Rate (12-18) 18 18 20 H Respiratory rate source Observation Observation Observation Blood Pressure (90/60-120/80) 181/98 H 151/92 H 160/85 H Blood Pressure Mean (mm Hg) 125 111 110 Source Monitor Monitor Monitor Position Semi-Fowlers Blood Pressure Location Left Arm History Since Last Visit- (Skip if this is Patient's initial visit) Have you changed medications since your No No No last visit? Any new allergies or adverse reactions No No No Had a fall/change in ADL's that may No No No increase risk of falls Signs or symptoms of abuse and/or No No No neglect since last visit Have you been in the hospital since your No No No last visit? Has dressing in place as prescribed Yes Yes Yes Has compression in place as prescribed No N/A N/A Has offloadiing in place as prescribed Yes Yes Experienced any changes in pain level or No No No management Pain Scale: 0-10 Numeric Is Patient Pain Free? Yes Yes Yes - Nurse 1 - General Ulcer Measurement Start: 03/11/22 10:45 Freq: Status: Active Protocol: Activity Type Activity Date Activity User E-sign Co-sign Detail Recorded Client Recorded Date Recorded By Document 03/11/22 10:45 RB [id number] 03/11/22 10:55 RB Document 03/18/22 10:43 DL [id number] 03/18/22 10:54 DL Document 03/25/22 11:26 DL [id number] 03/25/22 11:27 DL 03/11/22 03/18/22 03/25/22 10:45 10:43 11:26 Wound Center Nurse 1 #6- sacral cluster -Combined with other wound No -Current Size (cm) - Length 0.4 1 1 -Current Size (cm) - Width 0.9 4.5 4.2 -Current Size (cm) - Depth 0.3 0.3 0.4 -Total Square Cm 0.36 4.5 4.2 -Photo Taken Yes Yes Yes -Tunneling No -Undermining/Tunneling No -Circular Undermining No -Exudate Amt Medium Small Small -Exudate Type Serosanguineous Serosanguineous Serosanguineous -Wound Margin Thickened & Distinct, Distinct, Rolled Under Outline Outline Attached Attached -Granulation Amt Medium (34-66%) Small (1-33%) Large (67-100%) -Granulation Quality [place] -Slough/Fibrin Yes -Necrosis Amt Medium (34-66%) Small (1-33%) None Present (0 %) -Necrotic Tissue Type Adherent Slough Adherent Slough -Structure Exposed N/A N/A N/A -Texture (Patience-wound Skin Appearance) Scarring Scarring Scarring -Moisture (Patience-wound Skin Appearance) Assessed No Abnormality No Abnormality -Color (Patience-wound Skin Appearance) Assessed No Abnormality No Abnormality -Temperature (Patience-wound Skin No Abnormality No Abnormality No Abnormality Appearance) (Pt Warm) (Pt Warm) (Pt Warm) -Tenderness on Palpation (Patience-wound No No Skin Appearance) -Ulcer Cleansing Wound Cleanser Rinsed/ Rinsed/ Irrigated with Irrigated with Saline Saline -Foul Odor after Cleansing No No No -Anesthetic Used 5% Lidocaine 5% Lidocaine Gel Gel WC - Nurse 2 - General Ulcer CM Notes Start: 03/11/22 10:45 Freq: Status: Active Protocol: Activity Type Activity Date Activity User E-sign Co-sign Detail Recorded Client Recorded Date Recorded By Document 03/11/22 11:24 MW [id number] 03/11/22 11:31 MW Edit Result 03/11/22 11:24 MW (1) [id number] 03/12/22 06:54 PL Document 03/18/22 11:10 MW [id number] 03/18/22 11:19 MW Document 03/25/22 11:53 MW [id number] 03/25/22 12:02 MW (1) #6- sacral cluster - Apply Skin Sub - 1st 25 sq cm - Legs => 1 - Apply Skin Sub - each addt'l 25 sq cm 1 => - Legs 03/11/22 03/18/22 03/25/22 11:24 11:10 11:53 Wound Center Nurse 2 #6- sacral cluster -Time 11:24 11:12 11:59 -Correct Patient Yes Yes Yes -Correct Side, Site, Position Yes Yes Yes -Correct Procedure Yes Yes Yes -Procedure Performed Yes Yes Yes -Type of Procedure Debridement Debridement Debridement -Clinical Debridement Subcutaneous Subcutaneous Subcutaneous -Tissue Removed Subcutaneous Subcutaneous Subcutaneous -Post Debridement (cm) - Length 0.4 0.5 0.3 -Post Debridement (cm) - Width 1.2 1.0 0.9 -Post Debridement (cm) - Depth 0.2 0.2 0.2 -Total Square (Post) (cm) 0.48 0.50 0.27 -Area of Debridement (cm) - Length 0.4 0.5 0.3 -Area of Debridement (cm) - Width 1.2 1.0 0.9 -Total Square (Area) (cm) 0.48 0.50 0.27 -Tunneling No No No -Undermining/Tunneling No No No -Circular Undermining No No No -Wound/Ulcer Outcome Not Healed Not Healed Not Healed -Ulcer Cleansing Rinsed/ Rinsed/ Rinsed/ Irrigated with Irrigated with Irrigated with Saline Saline Saline -Foul Odor after Cleansing No No No -Bioengineered Tissue Yes Yes Yes -Type of Bioengineered Tissue Epifix 18mm Epifix 18mm Epifix 18mm Disc Disc Disc -Expiration Date 12/04/26 12/04/26 12/04/26 -Product Lot Number [id number] -Percent Used 100 100 100 -Lot number of Saline Used [id number] -Bleeding Controlled with Pressure Pressure Pressure -Treatment Response Procedure Procedure Procedure Tolerated Well Tolerated Well Tolerated Well -Offloading No No No -Debridement - Subq, 1st 20sq cm No No No -Apply Skin Sub - 1st 25 sq cm - Legs 1 1 1 -Epifix 18mm Disc 3 3 3 Pain Scale: 0-10 Numeric Is Patient Pain Free? Yes Yes Yes - Nurse 3 - General Ulcer D/C NN Start: 03/11/22 10:45 Freq: Status: Active Protocol: Activity Type Activity Date Activity User E-sign Co-sign Detail Recorded Client Recorded Date Recorded By Document 03/11/22 11:37 [facility] [id number] 03/11/22 11:38 [facility] Document 03/18/22 11:33 [facility] [id number] 03/18/22 11:34 [facility] Document 03/25/22 12:12 [facility] [id number] 03/25/22 12:12 [facility] 03/11/22 03/18/22 03/25/22 11:37 11:33 12:12 Wound Care Nurse 3 #6- sacral cluster -Primary Dressing Applied Aquacel Extra Aquacel Extra -Other Dressing EPIFIX epifix; abd EPIFIX -Primary Dressing Covered/Secured with Secured with Secured with Tape Tape -Other Covering ABD, PER RB RN drsg per dl delphi developer ABD -Aquacel Extra 1 1 Treatment Response Procedure Procedure Procedure Tolerated Well Tolerated Well Tolerated Well Pain Scale: 0-10 Numeric Is Patient Pain Free? Yes Yes Yes - Visit Discharge Discharge Condition Stable Stable Stable Ambulatory Status Wheelchair Wheelchair Wheelchair Transportation Private Auto Private Auto Private Auto Accompanied by MOM mom MOM Assessment/Plan Assessment/Plan (1) Pressure ulcer of sacral region, stage 3: CODE(S): L89.153 - Pressure ulcer of sacral region, stage 3 (2) Spina bifida: CODE(S): Q05.9 - Spina bifida, unspecified PLAN: Plan Debridement done as documented above, procedure was well-tolerated. Some improvement noted. 9th application of Epifix done today using 100% of product. Moistened with saline. Covered with wound veil and secured with Steri-Strips. Leave in place for a week. Aquacel extra to help with drainage. Change outer dressing when soiled. Continue adequate protein intake, vitamin C and zinc. Their questions were answered and they were advised to call with any further questions or concerns. Follow-up in a week. This note was generated with [employer] dictation software. It may contain incorrect words, spelling, and punctuation that were not noted in checking the note before signing.
== END 2022-04-05 23:59 | disposition home or self-care (01) ==
LOC: WC 10:45
PROVIDERS: PCP Nurse Practitioner Family; Visit Provider Internal Medicine
DX: L89.153 Pressure ulcer of sacral region, stage 3 (principal); Q05.9 Spina bifida, unspecified
CPT/HCPCS: 15271; 15272; Q4186

== ENCOUNTER 2022-04-22 10:45 | Outpatient (RCR) | payer MEDICARE, MEDICAID, SELFPAY ==
[2022-04-06 00:29] VITALS: BP 160/85; PULSE 72; RESP 20; TEMP 36
[2022-04-08 10:51] VITALS: BP 130/86; RESP 16; TEMP 35.7
--- NOTE | 2022-04-08 12:44 | PN.PCM_ITS ---
History of Present Illness Date of Service: 04/08/22 Chief Complaint: Recurrent sacral pressure sore, Stage III. History of Wound: Ms. Crews is a 46-year-old woman with a history of spina bifida returns today with a 10 day history of breakdown and recurrence of a previous sacral pressure ulcer. She denies any known precipitating factor. Mother states that she noted it on the 07 of December. Has been applying dry dressing. No significant improvement. She typically a lot of moisture in the area and there has been. She otherwise feels well denies chills, fever nausea vomiting. Progress of Wound: Had 9 applications of epi fix. Some improvement. No new concerns at this time. Objective Data Objective Data Vital Signs: Vital Signs Temp Pulse Resp BP O2 Del Method 96.2 F L 72 16 130/86 H Room Air 04/08/22 10:51 04/06/22 00:29 04/08/22 10:51 04/08/22 10:51 04/08/22 10:51 Oxygen Delivery Method Room Air Charges/Coding Procedures Integumentary 150xxx-152xx: 21643 Skin sub graft trnk/arm/leg Physical Exam Const alert, oriented x3 and no apparent distress General Appearance: cooperative and well kempt HEENT normocephalic and hearing grossly normal bilaterally Head and Scalp: normal to inspection and atraumatic Neck full ROM and supple Resp normal respiratory effort Effort and Inspection: able to speak in complete sentences Skin Wounds: wounds noted Neuro oriented x3, CN's II-XII intact bilaterally and moves all extremities Psych mental status grossly normal, cooperative and affect normal Appearance: grossly normal Attitude: calm Speech: normal speech Debridement Note Debridement Note Wound debrided: Sacral Type of Debridement: Excisional debridement Anesthesia Used: 4% Lidocaine Solution Depth: Down to and including healthy tissue and in the subcutaneous layer Percentage of wound debrided: 100 Instrument Used: 3mm curette Tissue Removed: Slough and devitalized tissue Severity: Fat Layer Exposed Amount of bleeding with debridement: Mild Bleeding Controlled with: Pressure Patient tolerated procedure: Patient tolerated procedure well Post-Debridement Measurements and Additional Note: Post-Debridement Measurements/Treatment JESSICA - Nurse 1 - General Ulcer Assessment Start: 04/08/22 10:49 Freq: Status: Active Protocol: TOBIN Activity Type Activity Date Activity User E-sign Co-sign Detail Recorded Client Recorded Date Recorded By Document 04/08/22 10:51 [facility] [id number] 04/08/22 11:06 [facility] 04/08/22 10:51 - Today's Visit Information Type of service Follow-up Visit (Physician/CONVOLUTE TUBE WINDER ) Arrival Mode Wheelchair Transfer Assistance Other Transfer Assist (Other) 2 Patient Identification Verified (Name & Yes ) Patient Requires Transmission-Based No Precautions Vital Signs Temperature (97.8 F-99.1 F) 96.2 F L Temperature Source Temporal Respiratory Rate (12-18) 16 Respiratory rate source Observation Oxygen Delivery Method Room Air Blood Pressure (90/60-120/80) 130/86 H Blood Pressure Mean (mm Hg) 100 Source Monitor Position Sitting Blood Pressure Location Left Arm History Since Last Visit- (Skip if this is Patient's initial visit) Have you changed medications since your No last visit? Any new allergies or adverse reactions No Had a fall/change in ADL's that may No increase risk of falls Signs or symptoms of abuse and/or No neglect since last visit Have you been in the hospital since your No last visit? Has dressing in place as prescribed Yes Has compression in place as prescribed N/A Has offloadiing in place as prescribed N/A Experienced any changes in pain level or No management Pain Scale: 0-10 Numeric Is Patient Pain Free? Yes - Nurse 1 - General Ulcer Measurement Start: 04/08/22 10:49 Freq: Status: Active Protocol: Activity Type Activity Date Activity User E-sign Co-sign Detail Recorded Client Recorded Date Recorded By Document 04/08/22 10:51 [facility] [id number] 04/08/22 11:06 [facility] 04/08/22 10:51 Wound Center Nurse 1 #6- sacral cluster -Combined with other wound No -Current Size (cm) - Length 0.2 -Current Size (cm) - Width 0.5 -Current Size (cm) - Depth 0.4 -Total Square Cm 0.10 -Photo Taken No -Epithelialization Medium 34-66% -Tunneling No -Undermining/Tunneling No -Circular Undermining No -Exudate Amt Medium -Exudate Type Serosanguineous -Wound Margin Distinct, Outline Attached -Granulation Amt Large (67-100%) -Granulation Quality Red -Slough/Fibrin No -Necrosis Amt None Present (0 %) -Texture (Patience-wound Skin Appearance) Assessed, Scarring -Moisture (Patience-wound Skin Appearance) Assessed -Color (Patience-wound Skin Appearance) Assessed -Temperature (Patience-wound Skin No Abnormality Appearance) (Pt Warm) -Tenderness on Palpation (Patience-wound No Skin Appearance) -Ulcer Cleansing Soap and Water -Foul Odor after Cleansing No -Anesthetic Used 5% Lidocaine Gel WC - Nurse 2 - General Ulcer CM Notes Start: 04/08/22 10:49 Freq: Status: Active Protocol: Activity Type Activity Date Activity User E-sign Co-sign Detail Recorded Client Recorded Date Recorded By Document 04/08/22 11:30 MW [id number] 04/08/22 11:40 MW 04/08/22 11:30 Wound Center Nurse 2 -Time 11:30 -Correct Patient Yes -Correct Side, Site, Position Yes -Correct Procedure Yes -Procedure Performed Yes -Type of Procedure Debridement -Clinical Debridement Subcutaneous -Tissue Removed Subcutaneous -Post Debridement (cm) - Length 0.3 -Post Debridement (cm) - Width 0.9 -Post Debridement (cm) - Depth 0.2 -Total Square (Post) (cm) 0.27 -Area of Debridement (cm) - Length 0.3 -Area of Debridement (cm) - Width 0.9 -Total Square (Area) (cm) 0.27 -Tunneling No -Undermining/Tunneling No -Circular Undermining No -Wound/Ulcer Outcome Not Healed -Ulcer Cleansing Rinsed/ Irrigated with Saline -Foul Odor after Cleansing No -Bioengineered Tissue Yes -Type of Bioengineered Tissue Epifix 18mm Disc -Expiration Date 01/04/27 -Product Lot Number [id number] -Percent Used 100 -Lot number of Saline Used [id number] -Bleeding Controlled with Pressure -Treatment Response Procedure Tolerated Well -Offloading No -Debridement - Subq, 1st 20sq cm No -Apply Skin Sub - 1st 25 sq cm - Legs 1 -Epifix 18mm Disc 3 Pain Scale: 0-10 Numeric Is Patient Pain Free? Yes WC - Nurse 3 - General Ulcer D/C NN Start: 04/08/22 10:49 Freq: Status: Active Protocol: Activity Type Activity Date Activity User E-sign Co-sign Detail Recorded Client Recorded Date Recorded By Document 04/08/22 11:44 [facility] [id number] 04/08/22 11:45 [facility] 04/08/22 11:44 Wound Care Nurse 3 #6- sacral cluster -Primary Dressing Applied Aquacel Extra, Promogran -Other Dressing EPIFIX -Primary Dressing Covered/Secured with Secured with Tape -Other Covering ABD, DRSG PER DL; PROMOGRAN SENT W/ PT TO APPLY IN 10 DAYS -Aquacel Extra 1 -Promogran 1 Treatment Response Procedure Tolerated Well Pain Scale: 0-10 Numeric Is Patient Pain Free? Yes WC - Visit Discharge Discharge Condition Stable Ambulatory Status Wheelchair Transportation Private Auto Accompanied by MOM Assessment/Plan Assessment/Plan (1) Pressure ulcer of sacral region, stage 3: CODE(S): L89.153 - Pressure ulcer of sacral region, stage 3 (2) Spina bifida: CODE(S): Q05.9 - Spina bifida, unspecified PLAN: Plan Debridement done as documented above, procedure was well-tolerated. Some improvement noted. 10th application of Epifix done today using 100% of product. Moistened with saline. Covered with wound veil and secured with Steri-Strips. Leave in place for 2 week. Aquacel extra to help with drainage. Change outer dressing when soiled. Continue adequate protein intake, vitamin C and zinc. Their questions were answered and they were advised to call with any further questions or concerns. Follow-up in 2 weeks. This note was generated with [employer] software. It may contain incorrect words, spelling, and punctuation that were not noted in checking the note before signing.
[2022-04-22 11:34] VITALS: BP 135/95; PULSE 93; RESP 18; TEMP 36.4
--- NOTE | 2022-04-22 12:37 | PCM.WC.PN ---
History of Present Illness Date of Service: 04/22/22 Chief Complaint: Recurrent sacral pressure sore, Stage III. History of Wound: Ms. Crews is a 46-year-old woman with a history of spina bifida returns today with a 10 day history of breakdown and recurrence of a previous sacral pressure ulcer. She denies any known precipitating factor. Mother states that she noted it on the 07 of December. Has been applying dry dressing. No significant improvement. She typically a lot of moisture in the area and there has been. She otherwise feels well denies chills, fever nausea vomiting. Progress of Wound: Has had 10 applications of epi fix. Some increase in periwound maceration. No other acute concerns. Objective Data Objective Data Vital Signs: Vital Signs Temp Pulse Resp BP O2 Del Method 97.5 F L 93 18 135/95 H Room Air 04/22/22 11:34 04/22/22 11:34 04/22/22 11:34 04/22/22 11:34 04/08/22 10:51 Oxygen Delivery Method Room Air Charges/Coding Procedures Integumentary 111xxx-113xx: 37019 Sherlyn subq tissue 20 sq cm/< Physical Exam Const alert, oriented x3 and no apparent distress General Appearance: cooperative and well kempt HEENT normocephalic and hearing grossly normal bilaterally Head and Scalp: normal to inspection and atraumatic Neck full ROM and supple Resp normal respiratory effort Effort and Inspection: able to speak in complete sentences Skin Wounds: wounds noted Neuro oriented x3, CN's II-XII intact bilaterally and moves all extremities Psych mental status grossly normal, cooperative and affect normal Appearance: grossly normal Attitude: calm Speech: normal speech Debridement Note Debridement Note Wound debrided: Sacral Type of Debridement: Excisional debridement Anesthesia Used: 4% Lidocaine Solution Depth: Down to and including healthy tissue and in the subcutaneous layer Percentage of wound debrided: 100 Instrument Used: 3mm curette Tissue Removed: Slough and devitalized tissue Severity: Fat Layer Exposed Amount of bleeding with debridement: Mild Bleeding Controlled with: Pressure Patient tolerated procedure: Patient tolerated procedure well Post-Debridement Measurements and Additional Note: Post-Debridement Measurements/Treatment JESSICA - Nurse 1 - General Ulcer Assessment Start: 04/08/22 10:49 Freq: Status: Active Protocol: TOBIN Activity Type Activity Date Activity User E-sign Co-sign Detail Recorded Client Recorded Date Recorded By Document 04/08/22 10:[address] [facility] [id number] 04/08/22 11:[address] [facility] Document 04/22/22 11:34 DL [id number] 04/22/22 11:44 DL 04/08/22 04/22/22 10:51 11:34 - Today's Visit Information Type of service Follow-up Visit Follow-up Visit (Physician/CONSTRUCTION IRONWORKER (Physician/CONSTRUCTION IRONWORKER ) ) Arrival Mode Wheelchair Wheelchair Transfer Assistance Other None Transfer Assist (Other) 2 Patient Identification Verified (Name & Yes Yes ) Patient Requires Transmission-Based No No Precautions Vital Signs Temperature (97.8 F-99.1 F) 96.2 F L 97.5 F L Temperature Source Temporal Temporal Pulse Rate (60-100) 93 Pulse Location Monitor Respiratory Rate (12-18) 16 18 Respiratory rate source Observation Observation Oxygen Delivery Method Room Air Blood Pressure (90/60-120/80) 130/86 H 135/95 H Blood Pressure Mean (mm Hg) 100 108 Source Monitor Monitor Position Sitting Blood Pressure Location Left Arm History Since Last Visit- (Skip if this is Patient's initial visit) Have you changed medications since your No No last visit? Any new allergies or adverse reactions No No Had a fall/change in ADL's that may No No increase risk of falls Signs or symptoms of abuse and/or No No neglect since last visit Have you been in the hospital since your No No last visit? Has dressing in place as prescribed Yes Yes Has compression in place as prescribed N/A N/A Has offloadiing in place as prescribed N/A Yes Experienced any changes in pain level or No No management Pain Scale: 0-10 Numeric Is Patient Pain Free? Yes Yes - Nurse 1 - General Ulcer Measurement Start: 04/08/22 10:49 Freq: Status: Active Protocol: Activity Type Activity Date Activity User E-sign Co-sign Detail Recorded Client Recorded Date Recorded By Document 04/08/22 10:[address] [facility] [id number] 04/08/22 11:[address] [facility] Document 04/22/22 11:34 DL [id number] 04/22/22 11:44 DL 04/08/22 04/22/22 10:51 11:34 Wound Center Nurse 1 #6- sacral cluster -Combined with other wound No -Current Size (cm) - Length 0.2 0.5 -Current Size (cm) - Width 0.5 0.7 -Current Size (cm) - Depth 0.4 0.3 -Total Square Cm 0.10 0.35 -Photo Taken No No -Epithelialization Medium 34-66% -Tunneling No -Tunneling Position (O'clock) 3 -Tunneling Distance (cm) 0.3 -Undermining/Tunneling No -Circular Undermining No -Exudate Amt Medium Medium -Exudate Type Serosanguineous Serosanguineous -Wound Margin Distinct, Distinct, Outline Outline Attached Attached -Granulation Amt Large (67-100%) -Granulation Quality Red Pale,[place] -Slough/Fibrin No -Necrosis Amt None Present (0 Small (1-33%) %) -Necrotic Tissue Type Adherent Slough -Structure Exposed N/A -Texture (Patience-wound Skin Appearance) Assessed, Scarring Scarring -Moisture (Patience-wound Skin Appearance) Assessed No Abnormality -Color (Patience-wound Skin Appearance) Assessed No Abnormality -Temperature (Patience-wound Skin No Abnormality No Abnormality Appearance) (Pt Warm) (Pt Warm) -Tenderness on Palpation (Patience-wound No No Skin Appearance) -Ulcer Cleansing Soap and Water Rinsed/ Irrigated with Saline -Foul Odor after Cleansing No No -Anesthetic Used 5% Lidocaine 5% Lidocaine Gel Gel WC - Nurse 2 - General Ulcer CM Notes Start: 04/08/22 10:49 Freq: Status: Active Protocol: Activity Type Activity Date Activity User E-sign Co-sign Detail Recorded Client Recorded Date Recorded By Document 04/08/22 11:30 MW [id number] 04/08/22 11:40 MW Document 04/22/22 11:53 MW [id number] 04/22/22 11:56 MW 04/08/22 04/22/22 11:30 11:53 Wound Center Nurse 2 #6- sacral cluster -Time 11:30 11:53 -Correct Patient Yes Yes -Correct Side, Site, Position Yes Yes -Correct Procedure Yes Yes -Procedure Performed Yes Yes -Type of Procedure Debridement Debridement -Clinical Debridement Subcutaneous Subcutaneous -Tissue Removed Subcutaneous Subcutaneous -Post Debridement (cm) - Length 0.3 0.4 -Post Debridement (cm) - Width 0.9 1.0 -Post Debridement (cm) - Depth 0.2 0.4 -Total Square (Post) (cm) 0.27 0.40 -Area of Debridement (cm) - Length 0.3 0.4 -Area of Debridement (cm) - Width 0.9 1.0 -Total Square (Area) (cm) 0.27 0.40 -Tunneling No No -Undermining/Tunneling No No -Circular Undermining No No -Wound/Ulcer Outcome Not Healed Not Healed -Ulcer Cleansing Rinsed/ Rinsed/ Irrigated with Irrigated with Saline Saline -Foul Odor after Cleansing No -Bioengineered Tissue Yes No -Type of Bioengineered Tissue Epifix 18mm Disc -Expiration Date 01/04/27 -Product Lot Number [id number] -Percent Used 100 -Lot number of Saline Used [id number] -Bleeding Controlled with Pressure Pressure -Treatment Response Procedure Procedure Tolerated Well Tolerated Well -Offloading No No -Debridement - Subq, 1st 20sq cm No Yes -Apply Skin Sub - 1st 25 sq cm - Legs 1 -Epifix 18mm Disc 3 Pain Scale: 0-10 Numeric Is Patient Pain Free? Yes Yes WC - Nurse 3 - General Ulcer D/C NN Start: 04/08/22 10:49 Freq: Status: Active Protocol: Activity Type Activity Date Activity User E-sign Co-sign Detail Recorded Client Recorded Date Recorded By Document 04/08/22 11:[address] [facility] [id number] 04/08/22 11:[address] [facility] Document 04/22/22 11:57 MW [id number] 04/22/22 11:57 MW 04/08/22 04/22/22 11:44 11:57 Wound Care Nurse 3 #6- sacral cluster -Ulcer Cleansing Rinsed/ Irrigated with Saline -Foul Odor after Cleansing No -Negative Pressure Wound Therapy N/A -Primary Dressing Applied Aquacel Extra, Mepilex Border, Promogran Promogran -Other Dressing EPIFIX -Primary Dressing Covered/Secured with Secured with Tape -Other Covering ABD, DRSG PER DL; PROMOGRAN SENT W/ PT TO APPLY IN 10 DAYS -Aquacel Extra 1 -Mepilex Border 1 -Promogran 1 1 Treatment Response Procedure Procedure Tolerated Well Tolerated Well Pain Scale: 0-10 Numeric Is Patient Pain Free? Yes Yes Teaching: Wound Center Dressing Your Wound -Person Taught Patient,Family -Teaching Method Discussion -Response to teaching Verbalize understanding WC - Visit Discharge Discharge Condition Stable Stable Ambulatory Status Wheelchair Wheelchair Transportation Private Auto Private Auto Accompanied by MOM mom Medication Reconcilliation completed & No provided to patient/care provider Clinical Summary of Care Provided Yes Assessment/Plan Assessment/Plan (1) Pressure ulcer of sacral region, stage 3: CODE(S): L89.153 - Pressure ulcer of sacral region, stage 3 (2) Spina bifida: CODE(S): Q05.9 - Spina bifida, unspecified PLAN: Plan Debridement done as documented above, procedure was well-tolerated. Has completed epi fix applications. Periwound maceration, dressings have been left on for longer than it should have. Promogran with Adaptic over top, change daily to twice daily depending on drainage. ABD over top. Continue adequate protein intake, vitamin C and zinc. Their questions were answered and they were advised to call with any further questions or concerns. Follow-up in 2 weeks. This note was generated with [employer] software. It may contain incorrect words, spelling, and punctuation that were not noted in checking the note before signing.
== END 2022-05-05 23:59 | disposition home or self-care (01) ==
LOC: WC 10:45
PROVIDERS: PCP Nurse Practitioner Family; Visit Provider Internal Medicine
DX: L89.153 Pressure ulcer of sacral region, stage 3 (principal); Q05.9 Spina bifida, unspecified
CPT/HCPCS: 11042; 15271; Q4186

== ENCOUNTER 2022-06-02 15:19 | Outpatient (CLI) | payer MEDICARE, MEDICAID, SELFPAY ==
[2022-06-02 16:38] LABS: Erythrocyte Sedimentation Rate 97 mm/hr (0-30)
[2022-06-02 16:40] LABS: Absolute Lymphocyte Count 2.34 X10^3/uL (0.83-4.51); Absolute Neutrophil Count 9.6 X10^3/uL (2.0-7.7); Basophil# 0.05 X10^3/uL; Basophil% 0.4 % (0-1); Eosinophil# 0.27 X10^3/uL; Eosinophils% 2.1 % (0-5); Hematocrit 38.7 % (37-47); Hemoglobin 12.6 g/dL (12.0-15.0); Lymphocyte # 2.34 X10^3/ul (0.83-4.51); Mean Corp Hgb Conc 32.6 g/dL (32-36); Mean Corpuscular Hgb 29.7 pg (27.0-32.0); Mean Corpuscular Volume 91.3 fL (81-99); Mean Platelet Vol. 9.3 fl (6.2-12.0); Monocyte# 0.69 X10^3/uL; Monocyte% 5.3 % (0-10); NRBC Flagged by Analyzer 0 % (0-5); Neutrophil # 9.57 X10^3/uL (2.7-7.7); Neutrophil % 73.8 % (47-70); Platelet Count 442 K/mm3 (150-450); RBC Distribution Width CV 14.6 % (11.6-14.6); RBC Distribution Width SD 48.2 fl (35.1-43.9); Red Blood Count 4.24 M/mm3 (4.2-5.4)
[2022-06-02 17:03] LABS: Prealbumin 18.7 mg/dL (20.0-40.0)
== END 2022-06-02 23:59 | disposition home or self-care (01) ==
PROVIDERS: PCP Nurse Practitioner Family; Visit Provider Internal Medicine
DX: L89.153 Pressure ulcer of sacral region, stage 3 (principal)
CPT/HCPCS: 36415; 84134; 85025; 85652; 86140

== ENCOUNTER 2022-06-03 10:30 | Outpatient (RCR) | payer MEDICARE, MEDICAID, SELFPAY ==
[2022-05-06 00:28] VITALS: BP 135/95; PULSE 93; RESP 18; TEMP 36.4
[2022-05-06 11:02] VITALS: BP 122/90; PULSE 92; RESP 20; TEMP 36.9
--- NOTE | 2022-05-06 13:17 | PCM.WC.PN ---
History of Present Illness Date of Service: 05/06/22 Chief Complaint: Recurrent sacral pressure sore, Stage III. History of Wound: Ms. Crews is a 46-year-old woman with a history of spina bifida returns today with a 10 day history of breakdown and recurrence of a previous sacral pressure ulcer. She denies any known precipitating factor. Mother states that she noted it on the 07 of December. Has been applying dry dressing. No significant improvement. She typically a lot of moisture in the area and there has been. She otherwise feels well denies chills, fever nausea vomiting. Progress of Wound: Worsening noted. Her mother states that dressing changes have been done as recommended. Has been applying Promogran daily. Objective Data Objective Data Vital Signs: Vital Signs Temp Pulse Resp BP 98.5 F 92 20 H 122/90 H 05/06/22 11:02 05/06/22 11:02 05/06/22 11:02 05/06/22 11:02 Charges/Coding Procedures Integumentary 111xxx-113xx: [id number] Sherlyn subq tissue 20 sq cm/< Physical Exam Const alert, oriented x3 and no apparent distress General Appearance: cooperative and well kempt HEENT normocephalic and hearing grossly normal bilaterally Head and Scalp: normal to inspection and atraumatic Neck full ROM and supple Resp normal respiratory effort Effort and Inspection: able to speak in complete sentences Skin Wounds: wounds noted Neuro oriented x3, CN's II-XII intact bilaterally and moves all extremities Psych mental status grossly normal, cooperative and affect normal Appearance: grossly normal Attitude: calm Speech: normal speech Debridement Note Debridement Note Wound debrided: Sacral Type of Debridement: Excisional debridement Anesthesia Used: 4% Lidocaine Solution Depth: Down to and including healthy tissue and in the subcutaneous layer Percentage of wound debrided: 100 Instrument Used: 3mm curette Tissue Removed: Slough and devitalized tissue Severity: Fat Layer Exposed Amount of bleeding with debridement: Mild Bleeding Controlled with: Pressure Patient tolerated procedure: Patient tolerated procedure well Post-Debridement Measurements and Additional Note: Post-Debridement Measurements/Treatment JESSICA - Nurse 1 - General Ulcer Assessment Start: 05/06/22 11:02 Freq: Status: Active Protocol: TOBIN Activity Type Activity Date Activity User E-sign Co-sign Detail Recorded Client Recorded Date Recorded By Document 05/06/22 11:02 INO [id number] 05/06/22 11:15 DL 05/06/22 11:02 WC - Today's Visit Information Type of service Follow-up Visit (Physician/TOBACCO CHECKOUT CLERK ) Arrival Mode Wheelchair Transfer Assistance Manual Transfer Assist (Other) x2 Patient Identification Verified (Name & Yes ) Patient Requires Transmission-Based No Precautions Vital Signs Temperature (97.8 F-99.1 F) 98.5 F Temperature Source Temporal Pulse Rate (60-100) 92 Pulse Location Monitor Respiratory Rate (12-18) 20 H Respiratory rate source Observation Blood Pressure (90/60-120/80) 122/90 H Blood Pressure Mean (mm Hg) 100 Source Monitor History Since Last Visit- (Skip if this is Patient's initial visit) Have you changed medications since your No last visit? Any new allergies or adverse reactions No Had a fall/change in ADL's that may No increase risk of falls Signs or symptoms of abuse and/or No neglect since last visit Have you been in the hospital since your No last visit? Has dressing in place as prescribed Yes Has compression in place as prescribed N/A Has offloadiing in place as prescribed Yes Experienced any changes in pain level or No management Pain Scale: 0-10 Numeric Is Patient Pain Free? Yes - Nurse 1 - General Ulcer Measurement Start: 05/06/22 11:02 Freq: Status: Active Protocol: Activity Type Activity Date Activity User E-sign Co-sign Detail Recorded Client Recorded Date Recorded By Document 05/06/22 11:02 [id number] 05/06/22 11:15 05/06/22 11:02 Wound Center Nurse 1 #6- sacral cluster -Current Size (cm) - Length 1.8 -Current Size (cm) - Width 1.3 -Current Size (cm) - Depth 0.7 -Total Square Cm 2.34 -Photo Taken Yes -Exudate Amt Medium -Exudate Type Serosanguineous -Wound Margin Distinct, Outline Attached -Granulation Amt Medium (34-66%) -Granulation Quality Red -Necrosis Amt Small (1-33%) -Necrotic Tissue Type Adherent Slough -Structure Exposed N/A -Texture (Patience-wound Skin Appearance) Scarring -Moisture (Patience-wound Skin Appearance) No Abnormality -Color (Patience-wound Skin Appearance) No Abnormality -Temperature (Patience-wound Skin No Abnormality Appearance) (Pt Warm) -Ulcer Cleansing Rinsed/ Irrigated with Saline -Foul Odor after Cleansing No -Anesthetic Used 5% Lidocaine Gel WC - Nurse 2 - General Ulcer CM Notes Start: 05/06/22 11:02 Freq: Status: Active Protocol: Activity Type Activity Date Activity User E-sign Co-sign Detail Recorded Client Recorded Date Recorded By Document 05/06/22 11:25 MW [id number] 05/06/22 11:31 MW 05/06/22 11:25 Wound Center Nurse 2 -Time 11:26 -Correct Patient Yes -Correct Side, Site, Position Yes -Correct Procedure Yes -Procedure Performed Yes -Type of Procedure Debridement -Clinical Debridement Subcutaneous -Tissue Removed Subcutaneous -Post Debridement (cm) - Length 1.7 -Post Debridement (cm) - Width 1.0 -Post Debridement (cm) - Depth 0.2 -Total Square (Post) (cm) 1.70 -Area of Debridement (cm) - Length 1.7 -Area of Debridement (cm) - Width 1.0 -Total Square (Area) (cm) 1.70 -Tunneling No -Undermining/Tunneling No -Circular Undermining No -Wound/Ulcer Outcome Not Healed -Ulcer Cleansing Rinsed/ Irrigated with Saline -Foul Odor after Cleansing No -Bioengineered Tissue No -Bleeding Controlled with Pressure -Treatment Response Procedure Tolerated Well -Offloading No -Debridement - Subq, 1st 20sq cm Yes Pain Scale: 0-10 Numeric Is Patient Pain Free? Yes WC - Nurse 3 - General Ulcer D/C NN Start: 05/06/22 11:02 Freq: Status: Active Protocol: Activity Type Activity Date Activity User E-sign Co-sign Detail Recorded Client Recorded Date Recorded By Document 05/06/22 11:52 DL [id number] 05/06/22 11:53 DL 05/06/22 11:52 Wound Care Nurse 3 #6- sacral cluster -Ulcer Cleansing Rinsed/ Irrigated with Saline -Foul Odor after Cleansing No -Primary Dressing Applied NonAdherent Contact Layer, Promogran -Primary Dressing Covered/Secured with Dry Gauze, Secured with Tape -Promogran 2 Treatment Response Procedure Tolerated Well Pain Scale: 0-10 Numeric Is Patient Pain Free? Yes WC - Visit Discharge Discharge Condition Stable Ambulatory Status Wheelchair Transportation Private Auto Accompanied by mother Facility Type Home Health Orders Sent Yes Assessment/Plan Assessment/Plan (1) Pressure ulcer of sacral region, stage 3: CODE(S): L89.153 - Pressure ulcer of sacral region, stage 3 (2) Spina bifida: CODE(S): Q05.9 - Spina bifida, unspecified PLAN: Plan Debridement done as documented above, procedure was well-tolerated. Periwound maceration noted at her last visit has resolved however, there is worsening ulcer size/will start. No clinical concern for infection at this time however, we will switch to Loren. Change daily, cover with Adaptic. ABD over top. Offloading very strongly recommended. Continue adequate protein intake, vitamin C and zinc. Their questions were answered and they were advised to call with any further questions or concerns. Follow-up in 2 weeks or sooner if needed.. This note was generated with EverPresent dictation software. It may contain incorrect words, spelling, and punctuation that were not noted in checking the note before signing.
[2022-05-27 09:09] VITALS: BP 131/81; PULSE 93; RESP 20; TEMP 36.6
--- NOTE | 2022-05-27 10:29 | PN.PCM_ITS ---
History of Present Illness Date of Service: 05/27/22 Chief Complaint: Recurrent sacral pressure sore, Stage III. History of Wound: Ms. Crews is a 46-year-old woman with a history of spina bifida returns today with a 10 day history of breakdown and recurrence of a previous sacral pressure ulcer. She denies any known precipitating factor. Mother states that she noted it on the 07 of December. Has been applying dry dressing. No significant improvement. She typically a lot of moisture in the area and there has been. She otherwise feels well denies chills, fever nausea vomiting. Progress of Wound: No significant tire changer the last 2 weeks. Mother states that they have been doing dressing changes as recommended. Questionable drainage. No chills, fever or feeling of unwell. Objective Data Objective Data Vital Signs: Vital Signs Temp Pulse Resp BP 98 F 93 20 H 131/81 H 05/27/22 09:09 05/27/22 09:09 05/27/22 09:09 05/27/22 09:09 Charges/Coding Procedures Integumentary 111xxx-113xx: [id number] Sherlyn subq tissue 20 sq cm/< Physical Exam Const alert, oriented x3 and no apparent distress General Appearance: cooperative and well kempt HEENT normocephalic and hearing grossly normal bilaterally Head and Scalp: normal to inspection and atraumatic Neck full ROM and supple Resp normal respiratory effort Effort and Inspection: able to speak in complete sentences Skin Wounds: wounds noted Neuro oriented x3, CN's II-XII intact bilaterally and moves all extremities Psych mental status grossly normal, cooperative and affect normal Appearance: grossly normal Attitude: calm Speech: normal speech Debridement Note Debridement Note Wound debrided: Sacral Type of Debridement: Excisional debridement Anesthesia Used: 4% Lidocaine Solution Depth: Down to and including healthy tissue Percentage of wound debrided: 100 Instrument Used: 3mm curette Tissue Removed: Slough and devitalized tissue Severity: Fat Layer Exposed Amount of bleeding with debridement: Mild Bleeding Controlled with: Pressure Patient tolerated procedure: Patient tolerated procedure well Post-Debridement Measurements and Additional Note: Post-Debridement Measurements/Treatment JESSICA - Nurse 1 - General Ulcer Assessment Start: 05/06/22 11:02 Freq: Status: Active Protocol: TOBIN Activity Type Activity Date Activity User E-sign Co-sign Detail Recorded Client Recorded Date Recorded By Document 05/06/22 11:02 DL [id number] 05/06/22 11:15 DL Document 05/27/22 09:09 DL [id number] 05/27/22 09:16 DL 05/06/22 05/27/22 11:02 09:09 - Today's Visit Information Type of service Follow-up Visit Follow-up Visit (Physician/PETROLEUM REFINERY WORKER (Physician/PETROLEUM REFINERY WORKER ) ) Arrival Mode Wheelchair Wheelchair Transfer Assistance Manual Manual Transfer Assist (Other) x2 x2 Patient Identification Verified (Name & Yes Yes ) Patient Requires Transmission-Based No No Precautions Vital Signs Temperature (97.8 F-99.1 F) 98.5 F 98 F Temperature Source Temporal Temporal Pulse Rate (60-100) 92 93 Pulse Location Monitor Monitor Respiratory Rate (12-18) 20 H 20 H Respiratory rate source Observation Observation Blood Pressure (90/60-120/80) 122/90 H 131/81 H Blood Pressure Mean (mm Hg) 100 97 Source Monitor Monitor History Since Last Visit- (Skip if this is Patient's initial visit) Have you changed medications since your No No last visit? Any new allergies or adverse reactions No No Had a fall/change in ADL's that may No No increase risk of falls Signs or symptoms of abuse and/or No No neglect since last visit Have you been in the hospital since your No No last visit? Has dressing in place as prescribed Yes Yes Has compression in place as prescribed N/A N/A Has offloadiing in place as prescribed Yes Yes Experienced any changes in pain level or No No management Pain Scale: 0-10 Numeric Is Patient Pain Free? Yes Yes - Nurse 1 - General Ulcer Measurement Start: 05/06/22 11:02 Freq: Status: Active Protocol: Activity Type Activity Date Activity User E-sign Co-sign Detail Recorded Client Recorded Date Recorded By Document 05/06/22 11:02 DL [id number] 05/06/22 11:15 DL Document 05/27/22 09:09 [id number] 05/27/22 09:16 DL 05/06/22 05/27/22 11:02 09:09 Wound Center Nurse 1 #6- sacral cluster -Current Size (cm) - Length 1.8 1.7 -Current Size (cm) - Width 1.3 1.1 -Current Size (cm) - Depth 0.7 0.6 -Total Square Cm 2.34 1.87 -Photo Taken Yes No -Exudate Amt Medium Small -Exudate Type Serosanguineous Serosanguineous -Wound Margin Distinct, Distinct, Outline Outline Attached Attached -Granulation Amt Medium (34-66%) Large (67-100%) -Granulation Quality [place] -Necrosis Amt Small (1-33%) Small (1-33%) -Necrotic Tissue Type Adherent Slough Adherent Slough -Structure Exposed N/A N/A -Texture (Patience-wound Skin Appearance) Scarring Scarring -Moisture (Patience-wound Skin Appearance) No Abnormality No Abnormality -Color (Patience-wound Skin Appearance) No Abnormality No Abnormality -Temperature (Patience-wound Skin No Abnormality No Abnormality Appearance) (Pt Warm) (Pt Warm) -Tenderness on Palpation (Patience-wound No Skin Appearance) -Ulcer Cleansing Rinsed/ Soap and Water Irrigated with Saline -Foul Odor after Cleansing No No -Anesthetic Used 5% Lidocaine 5% Lidocaine Gel Gel WC - Nurse 2 - General Ulcer CM Notes Start: 05/06/22 11:02 Freq: Status: Active Protocol: Activity Type Activity Date Activity User E-sign Co-sign Detail Recorded Client Recorded Date Recorded By Document 05/06/22 11:25 MW [id number] 05/06/22 11:31 MW Document 05/27/22 09:33 MW [id number] 05/27/22 09:33 MW 05/06/22 05/27/22 11:25 09:33 Wound Center Nurse 2 #6- sacral cluster -Time 11:26 09:33 -Correct Patient Yes Yes -Correct Side, Site, Position Yes Yes -Correct Procedure Yes Yes -Procedure Performed Yes Yes -Type of Procedure Debridement Debridement -Clinical Debridement Subcutaneous Subcutaneous -Tissue Removed Subcutaneous Subcutaneous -Post Debridement (cm) - Length 1.7 1.5 -Post Debridement (cm) - Width 1.0 1.9 -Post Debridement (cm) - Depth 0.2 0.5 -Total Square (Post) (cm) 1.70 2.85 -Area of Debridement (cm) - Length 1.7 1.5 -Area of Debridement (cm) - Width 1.0 1.9 -Total Square (Area) (cm) 1.70 2.85 -Tunneling No No -Undermining/Tunneling No No -Circular Undermining No No -Wound/Ulcer Outcome Not Healed Not Healed -Ulcer Cleansing Rinsed/ Rinsed/ Irrigated with Irrigated with Saline Saline -Foul Odor after Cleansing No No -Bioengineered Tissue No No -Bleeding Controlled with Pressure Pressure -Treatment Response Procedure Procedure Tolerated Well Tolerated Well -Offloading No No -Debridement - Subq, 1st 20sq cm Yes Yes Pain Scale: 0-10 Numeric Is Patient Pain Free? Yes Yes - Nurse 3 - General Ulcer D/C NN Start: 05/06/22 11:02 Freq: Status: Active Protocol: Activity Type Activity Date Activity User E-sign Co-sign Detail Recorded Client Recorded Date Recorded By Document 05/06/22 11:52 INO [id number] 05/06/22 11:53 DL 05/06/22 11:52 Wound Care Nurse 3 #6- sacral cluster -Ulcer Cleansing Rinsed/ Irrigated with Saline -Foul Odor after Cleansing No -Primary Dressing Applied NonAdherent Contact Layer, Promogran -Primary Dressing Covered/Secured with Dry Gauze, Secured with Tape -Promogran 2 Treatment Response Procedure Tolerated Well Pain Scale: 0-10 Numeric Is Patient Pain Free? Yes WC - Visit Discharge Discharge Condition Stable Ambulatory Status Wheelchair Transportation Private Auto Accompanied by mother Facility Type Home Health Orders Sent Yes Assessment/Plan Assessment/Plan (1) Pressure ulcer of sacral region, stage 3: CODE(S): L89.153 - Pressure ulcer of sacral region, stage 3 (2) Spina bifida: CODE(S): Q05.9 - Spina bifida, unspecified PLAN: Plan Debridement done as documented above, procedure was well-tolerated. Again, no improvement. Concern for drainage. Cultures taken. Labs ordered, will review. Stop Loren and go back to Promogran daily. ABD over top. Offloading very strongly recommended. Continue adequate protein intake, vitamin C and zinc. Their questions were answered and they were advised to call with any further questions or concerns. Follow-up in 1 week or sooner if needed. This note was generated with Stand Ination software. It may contain incorrect words, spelling, and punctuation that were not noted in checking the note before signing.
[2022-06-03 10:44] VITALS: BP 145/84; PULSE 100; RESP 19; TEMP 35.9
--- NOTE | 2022-06-03 12:45 | PN.PCM_ITS ---
History of Present Illness Date of Service: 06/03/22 Chief Complaint: Recurrent sacral pressure sore, Stage III. History of Wound: Ms. Crews is a 46-year-old woman with a history of spina bifida returns today with a 10 day history of breakdown and recurrence of a previous sacral pressure ulcer. She denies any known precipitating factor. Mother states that she noted it on the 07 of December. Has been applying dry dressing. No significant improvement. She typically a lot of moisture in the area and there has been. She otherwise feels well denies chills, fever nausea vomiting. Progress of Wound: Some improvement noted this week. No new concerns reported. Objective Data Objective Data Vital Signs: Vital Signs Temp Pulse Resp BP 96.6 F L 100 19 H 145/84 H 06/03/22 10:44 06/03/22 10:44 06/03/22 10:44 06/03/22 10:44 Lab / Micro Data Micro: Microbiology 05/27/22 09:30 Wound Abcess - Sacral Gram Stain - Final 05/27/22 09:30 Wound Abcess - Sacral Wound Culture - Final Staphylococcus aureus Corynebacterium striatum 05/27/22 09:30 Wound Abcess - Sacral Anaerobic Culture - Final Anaerobic cocci Charges/Coding Procedures Integumentary 111xxx-113xx: 60763 Sherlyn subq tissue 20 sq cm/< Physical Exam Const alert, oriented x3 and no apparent distress General Appearance: cooperative and well kempt HEENT normocephalic and hearing grossly normal bilaterally Head and Scalp: normal to inspection and atraumatic Neck full ROM and supple Resp normal respiratory effort Effort and Inspection: able to speak in complete sentences Skin Wounds: wounds noted Neuro oriented x3, CN's II-XII intact bilaterally and moves all extremities Psych mental status grossly normal, cooperative and affect normal Appearance: grossly normal Attitude: calm Speech: normal speech Debridement Note Debridement Note Wound debrided: Sacral Type of Debridement: Excisional debridement Anesthesia Used: 5% Lidocaine Gel Depth: Down to and including healthy tissue and in the subcutaneous layer Percentage of wound debrided: 100 Instrument Used: 3mm curette Tissue Removed: Slough and devitalized tissue Severity: Fat Layer Exposed Amount of bleeding with debridement: Mild Bleeding Controlled with: Pressure Patient tolerated procedure: Patient tolerated procedure well Post-Debridement Measurements and Additional Note: Post-Debridement Measurements/Treatment WC - Nurse 1 - General Ulcer Assessment Start: 05/06/22 11:02 Freq: Status: Active Protocol: [email or web address] Activity Type Activity Date Activity User E-sign Co-sign Detail Recorded Client Recorded Date Recorded By Document 05/06/22 11:02 DL [id number] 05/06/22 11:15 DL Document 05/27/22 09:09 DL [id number] 05/27/22 09:16 DL Document 06/03/22 10:44 ML [id number] 06/03/22 10:47 ML 05/06/22 05/27/22 06/03/22 11:02 09:09 10:44 WC - Today's Visit Information Type of service Follow-up Visit Follow-up Visit Follow-up Visit (Physician/CONSTRUCTION ADMINISTRATIVE ASSISTANT (Physician/CONSTRUCTION ADMINISTRATIVE ASSISTANT (Physician/CONSTRUCTION ADMINISTRATIVE ASSISTANT ) ) ) Arrival Mode Wheelchair Wheelchair Wheelchair Transfer Assistance Manual Manual None Transfer Assist (Other) x2 x2 Patient Identification Verified (Name & Yes Yes Yes ) Patient Requires Transmission-Based No No No Precautions Safety Precautions NA Vital Signs Temperature (97.8 F-99.1 F) 98.5 F 98 F 96.6 F L Temperature Source Temporal Temporal Temporal Pulse Rate (60-100) 92 93 100 Pulse Location Monitor Monitor Monitor Respiratory Rate (12-18) 20 H 20 H 19 H Respiratory rate source Observation Observation Observation Blood Pressure (90/60-120/80) 122/90 H 131/81 H 145/84 H Blood Pressure Mean (mm Hg) 100 97 104 Source Monitor Monitor Monitor Position Sitting Blood Pressure Location Left Arm History Since Last Visit- (Skip if this is Patient's initial visit) Have you changed medications since your No No No last visit? Any new allergies or adverse reactions No No No Had a fall/change in ADL's that may No No No increase risk of falls Signs or symptoms of abuse and/or No No No neglect since last visit Have you been in the hospital since your No No No last visit? Has dressing in place as prescribed Yes Yes Yes Has compression in place as prescribed N/A N/A N/A Has offloadiing in place as prescribed Yes Yes N/A Experienced any changes in pain level or No No No management Left Footwear No Footwear Right Footwear No Footwear Pain Scale: 0-10 Numeric Is Patient Pain Free? Yes Yes Yes WC - Nurse 1 - General Ulcer Measurement Start: 05/06/22 11:02 Freq: Status: Active Protocol: Activity Type Activity Date Activity User E-sign Co-sign Detail Recorded Client Recorded Date Recorded By Document 05/06/22 11:02 DL [id number] 05/06/22 11:15 DL Document 05/27/22 09:09 DL [id number] 05/27/22 09:16 DL Document 06/03/22 10:44 ML [id number] 06/03/22 10:47 ML 05/06/22 05/27/22 06/03/22 11:02 09:09 10:44 Wound Center Nurse 1 #6- sacral cluster -Current Size (cm) - Length 1.8 1.7 1.8 -Current Size (cm) - Width 1.3 1.1 1.6 -Current Size (cm) - Depth 0.7 0.6 0.4 -Total Square Cm 2.34 1.87 2.88 -Photo Taken Yes No -Exudate Amt Medium Small Small -Exudate Type Serosanguineous Serosanguineous Serosanguineous -Wound Margin Distinct, Distinct, Flat & Intact Outline Outline Attached Attached -Granulation Amt Medium (34-66%) Large (67-100%) -Granulation Quality [place] -Slough/Fibrin Yes -Necrosis Amt Small (1-33%) Small (1-33%) Medium (34-66%) -Necrotic Tissue Type Adherent Slough Adherent Slough Adherent Slough -Structure Exposed N/A N/A -Texture (Patience-wound Skin Appearance) Scarring Scarring Assessed -Moisture (Patience-wound Skin Appearance) No Abnormality No Abnormality Assessed -Color (Patience-wound Skin Appearance) No Abnormality No Abnormality Assessed -Temperature (Patience-wound Skin No Abnormality No Abnormality Appearance) (Pt Warm) (Pt Warm) -Tenderness on Palpation (Patience-wound No No Skin Appearance) -Ulcer Cleansing Rinsed/ Soap and Water Rinsed/ Irrigated with Irrigated with Saline Saline -Foul Odor after Cleansing No No No -Anesthetic Used 5% Lidocaine 5% Lidocaine 5% Lidocaine Gel Gel Gel WC - Nurse 2 - General Ulcer CM Notes Start: 05/06/22 11:02 Freq: Status: Active Protocol: Activity Type Activity Date Activity User E-sign Co-sign Detail Recorded Client Recorded Date Recorded By Document 05/06/22 11:25 MW [id number] 05/06/22 11:31 MW Document 05/27/22 09:33 MW [id number] 05/27/22 09:33 MW Document 06/03/22 11:03 [id number] 06/03/22 11:08 05/06/22 05/27/22 06/03/22 11:25 09:33 11:03 Wound Center Nurse 2 #6- sacral cluster -Time 11:26 09:33 11:04 -Correct Patient Yes Yes Yes -Correct Side, Site, Position Yes Yes Yes -Correct Procedure Yes Yes Yes -Procedure Performed Yes Yes Yes -Type of Procedure Debridement Debridement Debridement -Clinical Debridement Subcutaneous Subcutaneous Subcutaneous -Tissue Removed Subcutaneous Subcutaneous Subcutaneous -Post Debridement (cm) - Length 1.7 1.5 1.4 -Post Debridement (cm) - Width 1.0 1.9 1.4 -Post Debridement (cm) - Depth 0.2 0.5 0.4 -Total Square (Post) (cm) 1.70 2.85 1.96 -Area of Debridement (cm) - Length 1.7 1.5 1.4 -Area of Debridement (cm) - Width 1.0 1.9 1.4 -Total Square (Area) (cm) 1.70 2.85 1.96 -Tunneling No No No -Undermining/Tunneling No No No -Circular Undermining No No No -Wound/Ulcer Outcome Not Healed Not Healed Not Healed -Ulcer Cleansing Rinsed/ Rinsed/ Rinsed/ Irrigated with Irrigated with Irrigated with Saline Saline Saline -Foul Odor after Cleansing No No No -Bioengineered Tissue No No No -Bleeding Controlled with Pressure Pressure Pressure -Treatment Response Procedure Procedure Procedure Tolerated Well Tolerated Well Tolerated Well -Offloading No No No -Debridement - Subq, 1st 20sq cm Yes Yes Yes Pain Scale: 0-10 Numeric Is Patient Pain Free? Yes Yes Yes WC - Nurse 3 - General Ulcer D/C NN Start: 05/06/22 11:02 Freq: Status: Active Protocol: Activity Type Activity Date Activity User E-sign Co-sign Detail Recorded Client Recorded Date Recorded By Document 05/06/22 11:52 DL [id number] 05/06/22 11:53 DL Document 06/03/22 11:23 ML [id number] 06/03/22 11:24 ML 05/06/22 06/03/22 11:52 11:23 Wound Care Nurse 3 #6- sacral cluster -Ulcer Cleansing Rinsed/ Rinsed/ Irrigated with Irrigated with Saline Saline -Foul Odor after Cleansing No -Primary Dressing Applied NonAdherent Promogran Contact Layer, Promogran -Other Dressing adaptic, -Primary Dressing Covered/Secured with Dry Gauze, Dry Gauze, Secured with Secured with Tape Tape -Promogran 2 1 Treatment Response Procedure Tolerated Well Pain Scale: 0-10 Numeric Is Patient Pain Free? Yes Yes WC - Visit Discharge Discharge Condition Stable Ambulatory Status Wheelchair Transportation Private Auto Accompanied by mother Facility Type Home Health Orders Sent Yes Assessment/Plan Assessment/Plan (1) Pressure ulcer of sacral region, stage 3: CODE(S): L89.153 - Pressure ulcer of sacral region, stage 3 (2) Spina bifida: CODE(S): Q05.9 - Spina bifida, unspecified PLAN: Plan Debridement done as documented above, procedure was well-tolerated. Some improvement this week. Cultures and blood work reviewed, some growth but not o verwhelming however, elevated CRP which may be chronic. ESR is elevated but improved compared to prior check. White count and neutrophils also elevated however this appears to be chronic. Due to labs, culture and stagnation, will start on oral antibiotics. Prescription for doxycycline and metronidazole sent. Continue Promogran daily. ABD over top. Offloading very strongly recommended. Continue adequate protein intake, vitamin C and zinc. Their questions were answered and they were advised to call with any further questions or concerns. Follow-up in 1 week or sooner if needed. This note was generated with [employer] dictation software. It may contain incorrect words, spelling, and punctuation that were not noted in checking the note before signing.
== END 2022-06-05 23:59 | disposition home or self-care (01) ==
LOC: WC 10:30
PROVIDERS: PCP Nurse Practitioner Family; Visit Provider Internal Medicine
DX: L89.153 Pressure ulcer of sacral region, stage 3 (principal); Q05.9 Spina bifida, unspecified
CPT/HCPCS: 11042; 87070; 87075; 87077; 87186; 87205

== ENCOUNTER 2022-07-01 10:15 | Outpatient (RCR) | payer MEDICARE, MEDICAID, SELFPAY ==
[2022-06-06 00:24] VITALS: BP 145/84; PULSE 100; RESP 19; TEMP 35.9
[2022-06-10 10:43] VITALS: BP 120/79; PULSE 114; RESP 16; TEMP 36.1
--- NOTE | 2022-06-10 12:03 | PN.PCM_ITS ---
History of Present Illness Date of Service: 06/10/22 Chief Complaint: Recurrent sacral pressure sore, Stage III. History of Wound: Ms. Crews is a 46-year-old woman with a history of spina bifida returns today with a 10 day history of breakdown and recurrence of a previous sacral pressure ulcer. She denies any known precipitating factor. Mother states that she noted it on the 07 of December. Has been applying dry dressing. No significant improvement. She typically a lot of moisture in the area and there has been. She otherwise feels well denies chills, fever nausea vomiting. Progress of Wound: No new concerns at this time. Stable Ulcer. Objective Data Objective Data Vital Signs: Vital Signs Temp Pulse Resp BP O2 Del Method 96.9 F L 114 H 16 120/79 Room Air 06/10/22 10:43 06/10/22 10:43 06/10/22 10:43 06/10/22 10:43 06/10/22 10:43 Oxygen Delivery Method Room Air Charges/Coding Procedures Integumentary 111xxx-113xx: 27739 Sherlyn subq tissue 20 sq cm/< Physical Exam Const alert, oriented x3 and no apparent distress General Appearance: cooperative and well kempt HEENT normocephalic and hearing grossly normal bilaterally Head and Scalp: normal to inspection and atraumatic Neck full ROM and supple Resp normal respiratory effort Effort and Inspection: able to speak in complete sentences Skin Wounds: wounds noted Neuro oriented x3, CN's II-XII intact bilaterally and moves all extremities Psych mental status grossly normal, cooperative and affect normal Appearance: grossly normal Attitude: calm Speech: normal speech Debridement Note Debridement Note Wound debrided: Sacral Ulcer Type of Debridement: Excisional debridement Anesthesia Used: 4% Lidocaine Solution Depth: Down to and including healthy tissue and in the subcutaneous layer Percentage of wound debrided: 100 Instrument Used: 3mm curette Tissue Removed: Slough and devitalized tissue Severity: Fat Layer Exposed Amount of bleeding with debridement: Mild Bleeding Controlled with: Pressure Patient tolerated procedure: Patient tolerated procedure well Post-Debridement Measurements and Additional Note: Post-Debridement Measurements/Treatment JESSICA - Nurse 1 - General Ulcer Assessment Start: 06/10/22 10:41 Freq: Status: Active Protocol: TOBIN Activity Type Activity Date Activity User E-sign Co-sign Detail Recorded Client Recorded Date Recorded By Document 06/10/22 10:43 BMF [id number] 06/10/22 10:49 [facility] 06/10/22 10:43 WC - Today's Visit Information Type of service Follow-up Visit (Physician/STONE CRUSHER OPERATOR ) Arrival Mode Wheelchair Transfer Assistance Manual Transfer Assist (Other) 2 assist Accompanied by mom Patient Identification Verified (Name & Yes ) Patient Requires Transmission-Based No Precautions Vital Signs Temperature (97.8 F-99.1 F) 96.9 F L Temperature Source Temporal Pulse Rate (60-100) 114 H Pulse Location Monitor Respiratory Rate (12-18) 16 Respiratory rate source Observation Oxygen Delivery Method Room Air Blood Pressure (90/60-120/80) 120/79 Blood Pressure Mean (mm Hg) 92 Source Monitor Position Sitting Blood Pressure Location Left Forearm History Since Last Visit- (Skip if this is Patient's initial visit) Have you changed medications since your No last visit? Any new allergies or adverse reactions No Had a fall/change in ADL's that may No increase risk of falls Signs or symptoms of abuse and/or No neglect since last visit Have you been in the hospital since your No last visit? Has dressing in place as prescribed Yes Has compression in place as prescribed N/A Has offloadiing in place as prescribed N/A Experienced any changes in pain level or No management Left Footwear Slipper Right Footwear Slipper Pain Scale: 0-10 Numeric Is Patient Pain Free? Yes - Nurse 1 - General Ulcer Measurement Start: 06/10/22 10:41 Freq: Status: Active Protocol: Activity Type Activity Date Activity User E-sign Co-sign Detail Recorded Client Recorded Date Recorded By Document 06/10/22 10:43 [facility] [id number] 06/10/22 10:49 [facility] 06/10/22 10:43 Wound Center Nurse 1 #6- sacral cluster -Combined with other wound No -Current Size (cm) - Length 1.8 -Current Size (cm) - Width 1.3 -Current Size (cm) - Depth 0.6 -Total Square Cm 2.34 -Date of Last Picture (Recall this 06/10/22 field) -Photo Taken Yes -Epithelialization Small 1-33% -Tunneling Yes -Tunneling Position (O'clock) 3 -Tunneling Distance (cm) 0.6 -Undermining/Tunneling No -Circular Undermining No -Exudate Amt Medium -Exudate Type Serosanguineous -Wound Margin Distinct, Outline Attached -Granulation Amt Large (67-100%) -Granulation Quality Red -Slough/Fibrin No -Necrosis Amt None Present (0 %) -Texture (Patience-wound Skin Appearance) Assessed, Scarring -Moisture (Patience-wound Skin Appearance) Assessed -Color (Patience-wound Skin Appearance) Assessed -Temperature (Patience-wound Skin No Abnormality Appearance) (Pt Warm) -Tenderness on Palpation (Patience-wound No Skin Appearance) -Ulcer Cleansing Rinsed/ Irrigated with Saline -Foul Odor after Cleansing No -Anesthetic Used 5% Lidocaine Gel WC - Nurse 2 - General Ulcer CM Notes Start: 06/10/22 10:41 Freq: Status: Active Protocol: Activity Type Activity Date Activity User E-sign Co-sign Detail Recorded Client Recorded Date Recorded By Document 06/10/22 11:08 MW [id number] 06/10/22 11:13 MW 06/10/22 11:08 Wound Center Nurse 2 -Time 11:08 -Correct Patient Yes -Correct Side, Site, Position Yes -Correct Procedure Yes -Procedure Performed Yes -Type of Procedure Debridement -Clinical Debridement Subcutaneous -Tissue Removed Subcutaneous -Post Debridement (cm) - Length 1.5 -Post Debridement (cm) - Width 1.2 -Post Debridement (cm) - Depth 0.4 -Total Square (Post) (cm) 1.80 -Area of Debridement (cm) - Length 1.5 -Area of Debridement (cm) - Width 1.2 -Total Square (Area) (cm) 1.80 -Tunneling No -Undermining/Tunneling No -Circular Undermining No -Wound/Ulcer Outcome Not Healed -Ulcer Cleansing Rinsed/ Irrigated with Saline -Foul Odor after Cleansing No -Bioengineered Tissue No -Bleeding Controlled with Pressure -Treatment Response Procedure Tolerated Well -Offloading No -Debridement - Subq, 1st 20sq cm Yes Pain Scale: 0-10 Numeric Is Patient Pain Free? Yes JESSICA - Nurse 3 - General Ulcer D/C NN Start: 06/10/22 10:41 Freq: Status: Active Protocol: Activity Type Activity Date Activity User E-sign Co-sign Detail Recorded Client Recorded Date Recorded By Document 06/10/22 11:23 MW [id number] 06/10/22 11:24 MW 06/10/22 11:23 Wound Care Nurse 3 #6- sacral cluster -Ulcer Cleansing Rinsed/ Irrigated with Saline -Foul Odor after Cleansing No -Negative Pressure Wound Therapy N/A -Primary Dressing Applied NonAdherent Contact Layer, Promogran -Primary Dressing Covered/Secured with Secured with Tape -Other Covering abd pad -Promogran 1 Treatment Response Procedure Tolerated Well Pain Scale: 0-10 Numeric Is Patient Pain Free? Yes Teaching: Wound Center Dressing Your Wound -Person Taught Patient,Family -Teaching Method Discussion, Demonstration -Response to teaching Verbalize understanding WC - Visit Discharge Discharge Condition Stable Ambulatory Status Wheelchair Transportation Private Auto Accompanied by mom Medication Reconcilliation completed & No provided to patient/care provider Clinical Summary of Care Provided Yes Assessment/Plan Assessment/Plan (1) Pressure ulcer of sacral region, stage 3: CODE(S): L89.153 - Pressure ulcer of sacral region, stage 3 (2) Spina bifida: CODE(S): Q05.9 - Spina bifida, unspecified PLAN: Plan Debridement done as documented above, procedure was well-tolerated. Stable. Continue Promogran daily. ABD over top. Offloading very strongly recommended. Continue adequate protein intake, vitamin C and zinc. Their questions were answered and they were advised to call with any further questions or concerns. Follow-up in 2 weeks or sooner if needed. This note was generated with [employer] software. It may contain incorrect words, spelling, and punctuation that were not noted in checking the note before signing.
[2022-06-24 10:37] VITALS: BP 153/91; PULSE 108; RESP 20; TEMP 36.6
--- NOTE | 2022-06-24 12:42 | PN.PCM_ITS ---
History of Present Illness Date of Service: 06/24/22 Chief Complaint: Recurrent sacral pressure sore, Stage III. History of Wound: Ms. Crews is a 46-year-old woman with a history of spina bifida returns today with a 10 day history of breakdown and recurrence of a previous sacral pressure ulcer. She denies any known precipitating factor. Mother states that she noted it on the 07 of December. Has been applying dry dressing. No significant improvement. She typically a lot of moisture in the area and there has been. She otherwise feels well denies chills, fever nausea vomiting. Progress of Wound: Significant worsening since her last visit. Mother states that she has had wound dressings as recommended. They do not believe that she has had more pressure to the area than previously. Objective Data Objective Data Vital Signs: Vital Signs Temp Pulse Resp BP O2 Del Method 97.8 F 108 H 20 H 153/91 H Room Air 06/24/22 10:37 06/24/22 10:37 06/24/22 10:37 06/24/22 10:37 06/10/22 10:43 Oxygen Delivery Method Room Air Charges/Coding Procedures Integumentary 111xxx-113xx: 47119 Sherlyn subq tissue 20 sq cm/< Physical Exam Const alert, oriented x3 and no apparent distress General Appearance: cooperative and well kempt HEENT normocephalic and hearing grossly normal bilaterally Head and Scalp: normal to inspection and atraumatic Neck full ROM and supple Resp normal respiratory effort Effort and Inspection: able to speak in complete sentences Skin Wounds: wounds noted Neuro oriented x3, CN's II-XII intact bilaterally and moves all extremities Psych mental status grossly normal, cooperative and affect normal Appearance: grossly normal Attitude: calm Speech: normal speech Debridement Note Debridement Note Wound debrided: Sacral Type of Debridement: Excisional debridement Anesthesia Used: 4% Lidocaine Solution Depth: Down to and including healthy tissue and in the subcutaneous layer Percentage of wound debrided: 100 Instrument Used: 5mm curette Tissue Removed: Slough and devitalized tissue Severity: Fat Layer Exposed Amount of bleeding with debridement: Mild Bleeding Controlled with: Pressure Patient tolerated procedure: Patient tolerated procedure well Post-Debridement Measurements and Additional Note: Post-Debridement Measurements/Treatment JESSICA - Nurse 1 - General Ulcer Assessment Start: 06/10/22 10:41 Freq: Status: Active Protocol: TOBIN Activity Type Activity Date Activity User E-sign Co-sign Detail Recorded Client Recorded Date Recorded By Document 06/10/22 10:43 [facility] [id number] 06/10/22 10:49 [facility] Document 06/24/22 10:37 DL [id number] 06/24/22 10:46 DL 06/10/22 06/24/22 10:43 10:37 - Today's Visit Information Type of service Follow-up Visit Follow-up Visit (Physician/RESPIRATORY EQUIPMENT ASSISTANT (Physician/RESPIRATORY EQUIPMENT ASSISTANT ) ) Arrival Mode Wheelchair Wheelchair Transfer Assistance Manual Transfer Assist (Other) 2 assist x2 Accompanied by mom Patient Identification Verified (Name & Yes Yes ) Patient Requires Transmission-Based No No Precautions Vital Signs Temperature (97.8 F-99.1 F) 96.9 F L 97.8 F Temperature Source Temporal Temporal Pulse Rate (60-100) 114 H 108 H Pulse Location Monitor Monitor Respiratory Rate (12-18) 16 20 H Respiratory rate source Observation Observation Oxygen Delivery Method Room Air Blood Pressure (90/60-120/80) 120/79 153/91 H Blood Pressure Mean (mm Hg) 92 111 Source Monitor Monitor Position Sitting Blood Pressure Location Left Forearm History Since Last Visit- (Skip if this is Patient's initial visit) Have you changed medications since your No No last visit? Any new allergies or adverse reactions No No Had a fall/change in ADL's that may No No increase risk of falls Signs or symptoms of abuse and/or No No neglect since last visit Have you been in the hospital since your No No last visit? Has dressing in place as prescribed Yes Yes Has compression in place as prescribed N/A Has offloadiing in place as prescribed N/A Yes Experienced any changes in pain level or No No management Left Footwear Slipper Right Footwear Slipper Pain Scale: 0-10 Numeric Is Patient Pain Free? Yes Yes - Nurse 1 - General Ulcer Measurement Start: 06/10/22 10:41 Freq: Status: Active Protocol: Activity Type Activity Date Activity User E-sign Co-sign Detail Recorded Client Recorded Date Recorded By Document 06/10/22 10:43 [facility] [id number] 06/10/22 10:49 [facility] Document 06/24/22 10:37 DL [id number] 06/24/22 10:46 DL 06/10/22 06/24/22 10:43 10:37 Wound Center Nurse 1 #6- sacral cluster -Combined with other wound No -Current Size (cm) - Length 1.8 1.8 -Current Size (cm) - Width 1.3 1.8 -Current Size (cm) - Depth 0.6 0.5 -Total Square Cm 2.34 3.24 -Date of Last Picture (Recall this 06/10/22 field) -Photo Taken Yes Yes -Epithelialization Small 1-33% -Tunneling Yes -Tunneling Position (O'clock) 3 -Tunneling Distance (cm) 0.6 -Undermining/Tunneling No -Circular Undermining No -Exudate Amt Medium Medium -Exudate Type Serosanguineous Serosanguineous -Wound Margin Distinct, Distinct, Outline Outline Attached Attached -Granulation Amt Large (67-100%) Large (67-100%) -Granulation Quality Red Red -Slough/Fibrin No -Necrosis Amt None Present (0 Small (1-33%) %) -Structure Exposed N/A -Texture (Patience-wound Skin Appearance) Assessed, Scarring Scarring -Moisture (Patience-wound Skin Appearance) Assessed No Abnormality -Color (Patience-wound Skin Appearance) Assessed No Abnormality -Temperature (Patience-wound Skin No Abnormality Appearance) (Pt Warm) -Tenderness on Palpation (Patience-wound No No Skin Appearance) -Ulcer Cleansing Rinsed/ Soap and Water Irrigated with Saline -Foul Odor after Cleansing No No -Anesthetic Used 5% Lidocaine 5% Lidocaine Gel Gel WC - Nurse 2 - General Ulcer CM Notes Start: 06/10/22 10:41 Freq: Status: Active Protocol: Activity Type Activity Date Activity User E-sign Co-sign Detail Recorded Client Recorded Date Recorded By Document 06/10/22 11:08 MW [id number] 06/10/22 11:13 MW Document 06/24/22 11:02 MW [id number] 06/24/22 11:11 MW 06/10/22 06/24/22 11:08 11:02 Wound Center Nurse 2 #6- sacral cluster -Time 11:08 11:03 -Correct Patient Yes Yes -Correct Side, Site, Position Yes Yes -Correct Procedure Yes Yes -Procedure Performed Yes Yes -Type of Procedure Debridement Debridement -Clinical Debridement Subcutaneous Subcutaneous -Tissue Removed Subcutaneous Subcutaneous -Post Debridement (cm) - Length 1.5 1.9 -Post Debridement (cm) - Width 1.2 3.2 -Post Debridement (cm) - Depth 0.4 0.6 -Total Square (Post) (cm) 1.80 6.08 -Area of Debridement (cm) - Length 1.5 1.9 -Area of Debridement (cm) - Width 1.2 3.2 -Total Square (Area) (cm) 1.80 6.08 -Tunneling No No -Undermining/Tunneling No No -Circular Undermining No No -Wound/Ulcer Outcome Not Healed Not Healed -Ulcer Cleansing Rinsed/ Rinsed/ Irrigated with Irrigated with Saline Saline -Foul Odor after Cleansing No No -Bioengineered Tissue No No -Bleeding Controlled with Pressure Pressure -Treatment Response Procedure Procedure Tolerated Well Tolerated Well -Offloading No No -Debridement - Subq, 1st 20sq cm Yes Yes Pain Scale: 0-10 Numeric Is Patient Pain Free? Yes Yes - Nurse 3 - General Ulcer D/C NN Start: 06/10/22 10:41 Freq: Status: Active Protocol: Activity Type Activity Date Activity User E-sign Co-sign Detail Recorded Client Recorded Date Recorded By Document 06/10/22 11:23 MW [id number] 06/10/22 11:24 MW 06/10/22 11:23 Wound Care Nurse 3 #6- sacral cluster -Ulcer Cleansing Rinsed/ Irrigated with Saline -Foul Odor after Cleansing No -Negative Pressure Wound Therapy N/A -Primary Dressing Applied NonAdherent Contact Layer, Promogran -Primary Dressing Covered/Secured with Secured with Tape -Other Covering abd pad -Promogran 1 Treatment Response Procedure Tolerated Well Pain Scale: 0-10 Numeric Is Patient Pain Free? Yes Teaching: Wound Center Dressing Your Wound -Person Taught Patient,Family -Teaching Method Discussion, Demonstration -Response to teaching Verbalize understanding WC - Visit Discharge Discharge Condition Stable Ambulatory Status Wheelchair Transportation Private Auto Accompanied by mom Medication Reconcilliation completed & No provided to patient/care provider Clinical Summary of Care Provided Yes Assessment/Plan Assessment/Plan (1) Pressure ulcer of sacral region, stage 3: CODE(S): L89.153 - Pressure ulcer of sacral region, stage 3 (2) Spina bifida: CODE(S): Q05.9 - Spina bifida, unspecified PLAN: Plan Debridement done as documented above, procedure was well-tolerated. Significant worsening noted since her last visit. Cultures taken. Surgical wound/flap closure discussed. Patient's mother states that she has had same to the same area many years ago. This might be beneficial since this time, sacral ulcer is not progressing as well as it did in the past. Due to concern for moisture, switch to Aquacel extra, cover with gauze and ABD and change daily to twice daily depending on drainage. Offloading very strongly recommended. Continue adequate protein intake, vitamin C and zinc. Their questions were answered and they were advised to call with any further questions or concerns. Follow-up in 1 week. This note was generated with [employer] dictation software. It may contain incorrect words, spelling, and punctuation that were not noted in checking the note before signing.
[2022-07-01 10:44] VITALS: BP 129/81; PULSE 107; RESP 20; TEMP 36.6
--- NOTE | 2022-07-01 11:24 | PCM.WC.PN ---
History of Present Illness Date of Service: 07/01/22 Chief Complaint: Recurrent sacral pressure sore, Stage III. History of Wound: Ms. Crews is a 46-year-old woman with a history of spina bifida returns today with a 10 day history of breakdown and recurrence of a previous sacral pressure ulcer. She denies any known precipitating factor. Mother states that she noted it on the 07 of December. Has been applying dry dressing. No significant improvement. She typically a lot of moisture in the area and there has been. She otherwise feels well denies chills, fever nausea vomiting. Progress of Wound: Some improvement noted this week. Less erythema. Mother still reports some drainage at home. They have been better with offloading. Objective Data Objective Data Vital Signs: Vital Signs Temp Pulse Resp BP O2 Del Method 97.9 F 107 H 20 H 129/81 H Room Air 07/01/22 10:44 07/01/22 10:44 07/01/22 10:44 07/01/22 10:44 06/10/22 10:43 Oxygen Delivery Method Room Air Lab / Micro Data Micro: Microbiology 06/24/22 11:10 Wound Abcess - Sacral Gram Stain - Final 06/24/22 11:10 Wound Abcess - Sacral Wound Culture - Final Proteus mirabilis Staphylococcus aureus Corynebacterium striatum 06/24/22 11:10 Wound Abcess - Sacral Anaerobic Culture - Final No anaerobic bacteria isolated. Charges/Coding Procedures Integumentary 111xxx-113xx: [id number] Sherlyn subq tissue 20 sq cm/< Physical Exam Const alert, oriented x3 and no apparent distress General Appearance: cooperative and well kempt HEENT normocephalic and hearing grossly normal bilaterally Head and Scalp: normal to inspection and atraumatic Neck full ROM and supple Resp normal respiratory effort Effort and Inspection: able to speak in complete sentences Skin Wounds: wounds noted Neuro oriented x3, CN's II-XII intact bilaterally and moves all extremities Psych mental status grossly normal, cooperative and affect normal Appearance: grossly normal Attitude: calm Speech: normal speech Debridement Note Debridement Note Wound debrided: Sacral Type of Debridement: Excisional debridement Anesthesia Used: 4% Lidocaine Solution Depth: Down to and including healthy tissue and in the subcutaneous layer Percentage of wound debrided: 100 Instrument Used: 3mm curette Tissue Removed: Slough and devitalized tissue Severity: Fat Layer Exposed Amount of bleeding with debridement: Mild Bleeding Controlled with: Pressure Patient tolerated procedure: Patient tolerated procedure well Post-Debridement Measurements and Additional Note: Post-Debridement Measurements/Treatment - Nurse 1 - General Ulcer Assessment Start: 06/10/22 10:41 Freq: Status: Active Protocol: TOBIN Activity Type Activity Date Activity User E-sign Co-sign Detail Recorded Client Recorded Date Recorded By Document 06/10/22 10:43 [facility] [id number] 06/10/22 10:49 [facility] Document 06/24/22 10:37 DL [id number] 06/24/22 10:46 DL Document 07/01/22 10:44 DL [id number] 07/01/22 10:54 DL 06/10/22 06/24/22 07/01/22 10:43 10:37 10:44 - Today's Visit Information Type of service Follow-up Visit Follow-up Visit Follow-up Visit (Physician/TEST DESK TROUBLE LOCATOR (Physician/TEST DESK TROUBLE LOCATOR (Physician/TEST DESK TROUBLE LOCATOR ) ) ) Arrival Mode Wheelchair Wheelchair Wheelchair Transfer Assistance Manual None Transfer Assist (Other) 2 assist x2 Accompanied by mom Patient Identification Verified (Name & Yes Yes Yes ) Patient Requires Transmission-Based No No No Precautions Vital Signs Temperature (97.8 F-99.1 F) 96.9 F L 97.8 F 97.9 F Temperature Source Temporal Temporal Temporal Pulse Rate (60-100) 114 H 108 H 107 H Pulse Location Monitor Monitor Monitor Respiratory Rate (12-18) 16 20 H 20 H Respiratory rate source Observation Observation Observation Oxygen Delivery Method Room Air Blood Pressure (90/60-120/80) 120/79 153/91 H 129/81 H Blood Pressure Mean (mm Hg) 92 111 97 Source Monitor Monitor Monitor Position Sitting Blood Pressure Location Left Forearm History Since Last Visit- (Skip if this is Patient's initial visit) Have you changed medications since your No No No last visit? Any new allergies or adverse reactions No No No Had a fall/change in ADL's that may No No No increase risk of falls Signs or symptoms of abuse and/or No No No neglect since last visit Have you been in the hospital since your No No No last visit? Has dressing in place as prescribed Yes Yes Yes Has compression in place as prescribed N/A N/A Has offloadiing in place as prescribed N/A Yes Yes Experienced any changes in pain level or No No No management Left Footwear Slipper Right Footwear Slipper Pain Scale: 0-10 Numeric Is Patient Pain Free? Yes Yes Yes WC - Nurse 1 - General Ulcer Measurement Start: 06/10/22 10:41 Freq: Status: Active Protocol: Activity Type Activity Date Activity User E-sign Co-sign Detail Recorded Client Recorded Date Recorded By Document 06/10/22 10:43 BMF [id number] 06/10/22 10:49 BMF Document 06/24/22 10:37 DL [id number] 06/24/22 10:46 DL Document 07/01/22 10:44 DL [id number] 07/01/22 10:54 DL 06/10/22 06/24/22 07/01/22 10:43 10:37 10:44 Wound Center Nurse 1 #6- sacral cluster -Combined with other wound No -Current Size (cm) - Length 1.8 1.8 1.9 -Current Size (cm) - Width 1.3 1.8 2.3 -Current Size (cm) - Depth 0.6 0.5 0.8 -Total Square Cm 2.34 3.24 4.37 -Date of Last Picture (Recall this 06/10/22 field) -Photo Taken Yes Yes Yes -Epithelialization Small 1-33% -Tunneling Yes -Tunneling Position (O'clock) 3 -Tunneling Distance (cm) 0.6 -Undermining/Tunneling No -Circular Undermining No -Exudate Amt Medium Medium Medium -Exudate Type Serosanguineous Serosanguineous Serosanguineous -Wound Margin Distinct, Distinct, Thickened & Outline Outline Rolled Under Attached Attached -Granulation Amt Large (67-100%) Large (67-100%) Medium (34-66%) -Granulation Quality Red Red Pale,[place] -Slough/Fibrin No -Necrosis Amt None Present (0 Small (1-33%) Medium (34-66%) %) -Necrotic Tissue Type Adherent Slough -Structure Exposed N/A N/A -Texture (Patience-wound Skin Appearance) Assessed, Scarring Scarring Scarring -Moisture (Patience-wound Skin Appearance) Assessed No Abnormality Dry/Scaly -Color (Patience-wound Skin Appearance) Assessed No Abnormality Assessed -Temperature (Patience-wound Skin No Abnormality No Abnormality Appearance) (Pt Warm) (Pt Warm) -Tenderness on Palpation (Patience-wound No No No Skin Appearance) -Ulcer Cleansing Rinsed/ Soap and Water Rinsed/ Irrigated with Irrigated with Saline Saline -Foul Odor after Cleansing No No No -Anesthetic Used 5% Lidocaine 5% Lidocaine 5% Lidocaine Gel Gel Gel WC - Nurse 2 - General Ulcer CM Notes Start: 06/10/22 10:41 Freq: Status: Active Protocol: Activity Type Activity Date Activity User E-sign Co-sign Detail Recorded Client Recorded Date Recorded By Document 06/10/22 11:08 MW [id number] 06/10/22 11:13 MW Document 06/24/22 11:02 MW [id number] 06/24/22 11:11 MW Document 07/01/22 11:03 MW [id number] 07/01/22 11:07 MW 06/10/22 06/24/22 07/01/22 11:08 11:02 11:03 Wound Center Nurse 2 #6- sacral cluster -Time 11:08 11:03 11:04 -Correct Patient Yes Yes Yes -Correct Side, Site, Position Yes Yes Yes -Correct Procedure Yes Yes Yes -Procedure Performed Yes Yes Yes -Type of Procedure Debridement -Type of Procedure Debridement Debridement -Clinical Debridement Subcutaneous Subcutaneous Subcutaneous -Tissue Removed Subcutaneous Subcutaneous Subcutaneous -Post Debridement (cm) - Length 1.5 1.9 2.0 -Post Debridement (cm) - Width 1.2 3.2 2.5 -Post Debridement (cm) - Depth 0.4 0.6 0.4 -Total Square (Post) (cm) 1.80 6.08 5.00 -Area of Debridement (cm) - Length 1.5 1.9 2.0 -Area of Debridement (cm) - Width 1.2 3.2 2.5 -Total Square (Area) (cm) 1.80 6.08 5.00 -Tunneling No No No -Undermining/Tunneling No No No -Circular Undermining No No No -Wound/Ulcer Outcome Not Healed Not Healed Not Healed -Ulcer Cleansing Rinsed/ Rinsed/ Rinsed/ Irrigated with Irrigated with Irrigated with Saline Saline Saline -Foul Odor after Cleansing No No No -Bioengineered Tissue No No No -Bleeding Controlled with Pressure Pressure Pressure -Treatment Response Procedure Procedure Procedure Tolerated Well Tolerated Well Tolerated Well -Offloading No No No -Debridement - Subq, 1st 20sq cm Yes Yes Yes Pain Scale: 0-10 Numeric Is Patient Pain Free? Yes Yes Yes WC - Nurse 3 - General Ulcer D/C NN Start: 06/10/22 10:41 Freq: Status: Active Protocol: Activity Type Activity Date Activity User E-sign Co-sign Detail Recorded Client Recorded Date Recorded By Document 06/10/22 11:23 MW [id number] 06/10/22 11:24 MW 06/10/22 11:23 Wound Care Center Nurse 3 #6- sacral cluster -Ulcer Cleansing Rinsed/ Irrigated with Saline -Foul Odor after Cleansing No -Negative Pressure Wound Therapy N/A -Primary Dressing Applied NonAdherent Contact Layer, Promogran -Primary Dressing Covered/Secured with Secured with Tape -Other Covering abd pad -Promogran 1 Treatment Response Procedure Tolerated Well Pain Scale: 0-10 Numeric Is Patient Pain Free? Yes Teaching: Wound Center Dressing Your Wound -Person Taught Patient,Family -Teaching Method Discussion, Demonstration -Response to teaching Verbalize understanding WC - Visit Discharge Discharge Condition Stable Ambulatory Status Wheelchair Transportation Private Auto Accompanied by mom Medication Reconcilliation completed & No provided to patient/care provider Clinical Summary of Care Provided Yes Assessment/Plan Assessment/Plan (1) Pressure ulcer of sacral region, stage 3: CODE(S): L89.153 - Pressure ulcer of sacral region, stage 3 (2) Spina bifida: CODE(S): Q05.9 - Spina bifida, unspecified PLAN: Plan Debridement done as documented above, procedure was well-tolerated. Some improvement noted this week. They have been offloading better, they recommended. Cultures reviewed, prescription for Keflex sent. Continue Aquacel extra, cover with gauze and ABD and change daily to twice daily depending on drainage. Offloading very strongly recommended. Continue adequate protein intake, vitamin C and zinc. Their questions were answered and they were advised to call with any further questions or concerns. Follow-up in 1 week. This note was generated with [employer] software. It may contain incorrect words, spelling, and punctuation that were not noted in checking the note before signing.
== END 2022-07-06 23:59 | disposition home or self-care (01) ==
LOC: WC 10:15
PROVIDERS: PCP Nurse Practitioner Family; Visit Provider Internal Medicine
DX: L89.153 Pressure ulcer of sacral region, stage 3 (principal); Q05.9 Spina bifida, unspecified
CPT/HCPCS: 11042; 87070; 87075; 87077; 87186; 87205

== ENCOUNTER 2022-07-29 10:45 | Outpatient (RCR) | payer MEDICARE, MEDICAID, SELFPAY ==
[2022-07-07 00:29] VITALS: BP 129/81; PULSE 107; RESP 20; TEMP 36.6
[2022-07-08 10:15] VITALS: BP 97/72; PULSE 113; RESP 20; TEMP 36.6
--- NOTE | 2022-07-08 10:35 | PCM.WC.PN ---
History of Present Illness Date of Service: 07/08/22 Chief Complaint: Recurrent sacral pressure sore, Stage III. History of Wound: Ms. Crews is a 46-year-old woman with a history of spina bifida returns today with a 10 day history of breakdown and recurrence of a previous sacral pressure ulcer. She denies any known precipitating factor. Mother states that she noted it on the 07 of December. Has been applying dry dressing. No significant improvement. She typically a lot of moisture in the area and there has been. She otherwise feels well denies chills, fever nausea vomiting. Progress of Wound: Some improvement noted. No new concerns reported. Now using Aquacel extra. Objective Data Objective Data Vital Signs: Vital Signs Temp Pulse Resp BP 98 F 113 H 20 H 97/72 07/08/22 10:15 07/08/22 10:15 07/08/22 10:15 07/08/22 10:15 Charges/Coding Procedures Integumentary 111xxx-113xx: [id number] Sherlyn subq tissue 20 sq cm/< Physical Exam Const alert, oriented x3 and no apparent distress General Appearance: cooperative and well kempt HEENT normocephalic and hearing grossly normal bilaterally Head and Scalp: normal to inspection and atraumatic Neck full ROM and supple Resp normal respiratory effort Effort and Inspection: able to speak in complete sentences Skin Wounds: wounds noted Neuro oriented x3, CN's II-XII intact bilaterally and moves all extremities Psych mental status grossly normal, cooperative and affect normal Appearance: grossly normal Attitude: calm Speech: normal speech Debridement Note Debridement Note Wound debrided: Sacral Type of Debridement: Excisional debridement Anesthesia Used: 4% Lidocaine Solution Depth: Down to and including healthy tissue and in the subcutaneous layer Percentage of wound debrided: 100 Instrument Used: 3mm curette Tissue Removed: Slough and devitalized tissue Severity: Fat Layer Exposed Amount of bleeding with debridement: Mild Bleeding Controlled with: Pressure Patient tolerated procedure: Patient tolerated procedure well Post-Debridement Measurements and Additional Note: Post-Debridement Measurements/Treatment JESSICA - Nurse 1 - General Ulcer Assessment Start: 07/08/22 10:14 Freq: Status: Active Protocol: TOBIN Activity Type Activity Date Activity User E-sign Co-sign Detail Recorded Client Recorded Date Recorded By Document 07/08/22 10:15 DL [id number] 07/08/22 10:25 DL 07/08/22 10:15 - Today's Visit Information Type of service Follow-up Visit (Physician/DISTRIBUTOR SALES CONSULTANT ) Arrival Mode Wheelchair Transfer Assistance Manual,None Transfer Assist (Other) x2 Patient Identification Verified (Name & Yes ) Patient Requires Transmission-Based No Precautions Vital Signs Temperature (97.8 F-99.1 F) 98 F Temperature Source Temporal Pulse Rate (60-100) 113 H Respiratory Rate (12-18) 20 H Respiratory rate source Observation Blood Pressure (90/60-120/80) 97/72 Blood Pressure Mean (mm Hg) 80 Source Monitor History Since Last Visit- (Skip if this is Patient's initial visit) Have you changed medications since your No last visit? Any new allergies or adverse reactions No Had a fall/change in ADL's that may No increase risk of falls Signs or symptoms of abuse and/or No neglect since last visit Have you been in the hospital since your No last visit? Has dressing in place as prescribed Yes Has compression in place as prescribed N/A Experienced any changes in pain level or No management Pain Scale: 0-10 Numeric Is Patient Pain Free? Yes - Nurse 1 - General Ulcer Measurement Start: 07/08/22 10:14 Freq: Status: Active Protocol: Activity Type Activity Date Activity User E-sign Co-sign Detail Recorded Client Recorded Date Recorded By Document 07/08/22 10:15 DL [id number] 07/08/22 10:25 DL 07/08/22 10:15 Wound Center Nurse 1 #6- sacral cluster -Current Size (cm) - Length 1.8 -Current Size (cm) - Width 1.9 -Current Size (cm) - Depth 0.7 -Total Square Cm 3.42 -Photo Taken Yes -Exudate Amt Medium -Exudate Type Serosanguineous -Wound Margin Distinct, Outline Attached -Granulation Amt Medium (34-66%) -Granulation Quality Raymond,Red -Necrosis Amt Medium (34-66%) -Necrotic Tissue Type Adherent Slough -Structure Exposed N/A -Texture (Patience-wound Skin Appearance) Scarring -Moisture (Patience-wound Skin Appearance) No Abnormality -Color (Patience-wound Skin Appearance) No Abnormality -Temperature (Patience-wound Skin No Abnormality Appearance) (Pt Warm) -Tenderness on Palpation (Patience-wound No Skin Appearance) -Ulcer Cleansing Rinsed/ Irrigated with Saline -Foul Odor after Cleansing Yes, Due to Product Use -Anesthetic Used 5% Lidocaine Gel - Nurse 2 - General Ulcer CM Notes Start: 07/08/22 10:14 Freq: Status: Active Protocol: Activity Type Activity Date Activity User E-sign Co-sign Detail Recorded Client Recorded Date Recorded By Document 07/08/22 10:29 MW [id number] 07/08/22 10:31 MW 07/08/22 10:29 Wound Center Nurse 2 -Time 10:29 -Correct Patient Yes -Correct Side, Site, Position Yes -Correct Procedure Yes -Procedure Performed Yes -Type of Procedure Debridement -Clinical Debridement Subcutaneous -Tissue Removed Subcutaneous -Post Debridement (cm) - Length 1.8 -Post Debridement (cm) - Width 2.0 -Post Debridement (cm) - Depth 0.4 -Total Square (Post) (cm) 3.60 -Area of Debridement (cm) - Length 1.8 -Area of Debridement (cm) - Width 2.0 -Total Square (Area) (cm) 3.60 -Tunneling No -Undermining/Tunneling No -Circular Undermining No -Wound/Ulcer Outcome Not Healed -Ulcer Cleansing Rinsed/ Irrigated with Saline -Foul Odor after Cleansing No -Bioengineered Tissue No -Bleeding Controlled with Pressure -Treatment Response Procedure Tolerated Well -Offloading No -Debridement - Subq, 1st 20sq cm Yes Pain Scale: 0-10 Numeric Is Patient Pain Free? Yes JESSICA - Nurse 3 - General Ulcer D/C NN Start: 07/08/22 10:14 Freq: Status: Active Protocol: Activity Type Activity Date Activity User E-sign Co-sign Detail Recorded Client Recorded Date Recorded By Document 07/08/22 10:31 MW [id number] 07/08/22 10:32 MW 07/08/22 10:31 Wound Care Center Nurse 3 #6- sacral cluster -Ulcer Cleansing Rinsed/ Irrigated with Saline -Foul Odor after Cleansing No -Negative Pressure Wound Therapy N/A -Primary Dressing Applied Aquacel Extra -Other Covering ABD PAD -Aquacel Extra 1 Treatment Response Procedure Tolerated Well Pain Scale: 0-10 Numeric Is Patient Pain Free? Yes Teaching: Wound Center Dressing Your Wound -Person Taught Patient,Family -Teaching Method Discussion, Demonstration -Response to teaching Verbalize understanding WC - Visit Discharge Discharge Condition Stable Ambulatory Status Walker Transportation Private Auto Accompanied by MOM Clinical Summary of Care Provided Yes Assessment/Plan Assessment/Plan (1) Pressure ulcer of sacral region, stage 3: CODE(S): L89.153 - Pressure ulcer of sacral region, stage 3 (2) Spina bifida: CODE(S): Q05.9 - Spina bifida, unspecified PLAN: Plan Debridement done as documented above, procedure was well-tolerated. Some improvement noted this week. Continue Aquacel extra, cover with gauze and ABD and change daily to twice daily depending on drainage. Offloading very strongly recommended. Continue adequate protein intake, vitamin C and zinc. Their questions were answered and they were advised to call with any further questions or concerns. Follow-up in 1 week. This note was generated with [employer] dictation software. It may contain incorrect words, spelling, and punctuation that were not noted in checking the note before signing.
[2022-07-22 10:10] VITALS: BP 148/86; PULSE 108; TEMP 36.6
--- NOTE | 2022-07-22 12:54 | PCM.WC.PN ---
History of Present Illness Date of Service: 07/22/22 Chief Complaint: Recurrent sacral pressure sore, Stage III. History of Wound: Ms. Crews is a 46-year-old woman with a history of spina bifida returns today with a 10 day history of breakdown and recurrence of a previous sacral pressure ulcer. She denies any known precipitating factor. Mother states that she noted it on the 07 of December. Has been applying dry dressing. No significant improvement. She typically a lot of moisture in the area and there has been. She otherwise feels well denies chills, fever nausea vomiting. Progress of Wound: Significant worsening noted since her last visit. Has not been here in 2 weeks. Here today with her mother and caregiver. Mother has been ill so care has been largely by her caregivers at home. They state that she has not been laying for too long on her back. Caregiver also states that there has been increased drainage. No chills, fever or otherwise feeling of unwell. Objective Data Objective Data Vital Signs: Vital Signs Temp Pulse Resp BP 97.8 F 108 H 20 H 148/86 H 07/22/22 10:10 07/22/22 10:10 07/08/22 10:15 07/22/22 10:10 Charges/Coding Procedures Integumentary 111xxx-113xx: [id number] Sherlyn subq tissue 20 sq cm/< Physical Exam Const alert, oriented x3 and no apparent distress General Appearance: cooperative and well kempt HEENT normocephalic and hearing grossly normal bilaterally Head and Scalp: normal to inspection and atraumatic Neck full ROM and supple Resp normal respiratory effort Effort and Inspection: able to speak in complete sentences Skin Wounds: wounds noted Neuro oriented x3, CN's II-XII intact bilaterally and moves all extremities Psych mental status grossly normal, cooperative and affect normal Appearance: grossly normal Attitude: calm Speech: normal speech Debridement Note Debridement Note Wound debrided: Sacral Type of Debridement: Excisional debridement Anesthesia Used: 5% Lidocaine Gel Depth: Down to and including healthy tissue and in the subcutaneous layer Percentage of wound debrided: 100 Instrument Used: 3mm curette Tissue Removed: Slough and devitalized tissue Severity: Fat Layer Exposed Amount of bleeding with debridement: Mild Bleeding Controlled with: Pressure Patient tolerated procedure: Patient tolerated procedure well Post-Debridement Measurements and Additional Note: Post-Debridement Measurements/Treatment WC - Nurse 1 - General Ulcer Assessment Start: 07/08/22 10:14 Freq: Status: Active Protocol: TOBIN Activity Type Activity Date Activity User E-sign Co-sign Detail Recorded Client Recorded Date Recorded By Document 07/08/22 10:15 DL [id number] 07/08/22 10:25 DL Document 07/22/22 10:10 [facility] [id number] 07/22/22 10:20 BM 07/08/22 07/22/22 10:15 10:10 - Today's Visit Information Type of service Follow-up Visit Follow-up Visit (Physician/ACCIDENT EXAMINER (Physician/ACCIDENT EXAMINER ) ) Arrival Mode Wheelchair Wheelchair Transfer Assistance Manual,None Manual Transfer Assist (Other) x2 2 w/slide board Accompanied by mom and caregiver Patient Identification Verified (Name & Yes Yes ) Patient Requires Transmission-Based No No Precautions Vital Signs Temperature (97.8 F-99.1 F) 98 F 97.8 F Temperature Source Temporal Temporal Pulse Rate (60-100) 113 H 108 H Pulse Location Monitor Respiratory Rate (12-18) 20 H Respiratory rate source Observation Blood Pressure (90/60-120/80) 97/72 148/86 H Blood Pressure Mean (mm Hg) 80 106 Source Monitor Monitor Position Sitting Blood Pressure Location Left Forearm History Since Last Visit- (Skip if this is Patient's initial visit) Have you changed medications since your No No last visit? Any new allergies or adverse reactions No No Had a fall/change in ADL's that may No No increase risk of falls Signs or symptoms of abuse and/or No No neglect since last visit Have you been in the hospital since your No No last visit? Has dressing in place as prescribed Yes Yes Has compression in place as prescribed N/A N/A Has offloadiing in place as prescribed N/A Experienced any changes in pain level or No No management Left Footwear Regular Shoe Right Footwear Regular Shoe Pain Scale: 0-10 Numeric Is Patient Pain Free? Yes Yes - Nurse 1 - General Ulcer Measurement Start: 07/08/22 10:14 Freq: Status: Active Protocol: Activity Type Activity Date Activity User E-sign Co-sign Detail Recorded Client Recorded Date Recorded By Document 07/08/22 10:15 DL [id number] 07/08/22 10:25 DL Document 07/22/22 10:10 BMF [id number] 07/22/22 10:20 BMF 07/08/22 07/22/22 10:15 10:10 Wound Center Nurse 1 #6- sacral cluster -Combined with other wound No -Current Size (cm) - Length 1.8 2.6 -Current Size (cm) - Width 1.9 2.6 -Current Size (cm) - Depth 0.7 1.6 -Total Square Cm 3.42 6.76 -Date of Last Picture (Recall this 07/22/22 field) -Photo Taken Yes Yes -Epithelialization None Present -Tunneling No -Undermining/Tunneling No -Circular Undermining No -Exudate Amt Medium Medium -Exudate Type Serosanguineous Serosanguineous -Wound Margin Distinct, Distinct, Outline Outline Attached Attached -Granulation Amt Medium (34-66%) Small (1-33%) -Granulation Quality [place],Red Red -Slough/Fibrin Yes -Necrosis Amt Medium (34-66%) Large (67-100%) -Necrotic Tissue Type Adherent Slough Adherent Slough -Structure Exposed N/A -Texture (Patience-wound Skin Appearance) Scarring Assessed, Scarring -Moisture (Patience-wound Skin Appearance) No Abnormality Assessed -Color (Patience-wound Skin Appearance) No Abnormality Assessed, Erythema -Temperature (Patience-wound Skin No Abnormality No Abnormality Appearance) (Pt Warm) (Pt Warm) -Tenderness on Palpation (Patience-wound No No Skin Appearance) -Ulcer Cleansing Rinsed/ Rinsed/ Irrigated with Irrigated with Saline Saline -Foul Odor after Cleansing Yes, Due to No Product Use -Anesthetic Used 5% Lidocaine 5% Lidocaine Gel Gel WC - Nurse 2 - General Ulcer CM Notes Start: 07/08/22 10:14 Freq: Status: Active Protocol: Activity Type Activity Date Activity User E-sign Co-sign Detail Recorded Client Recorded Date Recorded By Document 07/08/22 10:29 MW [id number] 07/08/22 10:31 MW Document 07/22/22 10:47 MW [id number] 07/22/22 10:55 MW 07/08/22 07/22/22 10:29 10:47 Wound Center Nurse 2 #6- sacral cluster -Time 10:29 10:47 -Correct Patient Yes Yes -Correct Side, Site, Position Yes Yes -Correct Procedure Yes Yes -Procedure Performed Yes Yes -Type of Procedure Debridement Debridement -Clinical Debridement Subcutaneous Subcutaneous -Tissue Removed Subcutaneous Subcutaneous -Post Debridement (cm) - Length 1.8 2.3 -Post Debridement (cm) - Width 2.0 2.6 -Post Debridement (cm) - Depth 0.4 1.5 -Total Square (Post) (cm) 3.60 5.98 -Area of Debridement (cm) - Length 1.8 2.3 -Area of Debridement (cm) - Width 2.0 2.6 -Total Square (Area) (cm) 3.60 5.98 -Tunneling No No -Undermining/Tunneling No No -Circular Undermining No No -Wound/Ulcer Outcome Not Healed Not Healed -Ulcer Cleansing Rinsed/ Wound Cleanser Irrigated with Saline -Foul Odor after Cleansing No No -Bioengineered Tissue No No -Bleeding Controlled with Pressure Pressure -Treatment Response Procedure Procedure Tolerated Well Tolerated Well -Offloading No No -Debridement - Subq, 1st 20sq cm Yes Yes Pain Scale: 0-10 Numeric Is Patient Pain Free? Yes Yes WC - Nurse 3 - General Ulcer D/C NN Start: 07/08/22 10:14 Freq: Status: Active Protocol: Activity Type Activity Date Activity User E-sign Co-sign Detail Recorded Client Recorded Date Recorded By Document 07/08/22 10:31 MW [id number] 07/08/22 10:32 MW Document 07/22/22 11:07 MW [id number] 07/22/22 11:08 MW 07/08/22 07/22/22 10:31 11:07 Wound Care Center Nurse 3 #6- sacral cluster -Ulcer Cleansing Rinsed/ Rinsed/ Irrigated with Irrigated with Saline Saline -Foul Odor after Cleansing No No -Negative Pressure Wound Therapy N/A N/A -Primary Dressing Applied Aquacel Extra Aquacel Extra, NonAdherent Contact Layer -Primary Dressing Covered/Secured with Secured with Tape -Other Covering ABD PAD ABD pad -Aquacel Extra 1 1 Treatment Response Procedure Procedure Tolerated Well Tolerated Well Pain Scale: 0-10 Numeric Is Patient Pain Free? Yes Yes Teaching: Wound Center Dressing Your Wound -Person Taught Patient,Family Patient,Family, Primary Caregiver -Teaching Method Discussion, Discussion Demonstration -Response to teaching Verbalize Verbalize understanding understanding WC - Visit Discharge Discharge Condition Stable Stable Ambulatory Status Walker Wheelchair Transportation Private Auto Private Auto Accompanied by MOM mom and caregiver Medication Reconcilliation completed & No provided to patient/care provider Clinical Summary of Care Provided Yes Yes Assessment/Plan Assessment/Plan (1) Pressure ulcer of sacral region, stage 3: CODE(S): L89.153 - Pressure ulcer of sacral region, stage 3 (2) Spina bifida: CODE(S): Q05.9 - Spina bifida, unspecified PLAN: Plan Debridement done as documented above, procedure was well-tolerated. Significant worsening since her last visit. Missed her last appointment because her mother could not bring her here. Cultures taken however does not look clinically/grossly infected. May have been due to worsening pressure. Has an appointment with plastic surgery on the . Continue Aquacel extra, cover with gauze and ABD and change daily to twice daily depending on drainage. Offloading very strongly recommended. Continue adequate protein intake, vitamin C and zinc. Their questions were answered and they were advised to call with any further questions or concerns. Follow-up in 1 week. This note was generated with [employer] dictation software. It may contain incorrect words, spelling, and punctuation that were not noted in checking the note before signing.
[2022-07-29 10:52] VITALS: BP 149/91; PULSE 107; RESP 20; TEMP 36.4
--- NOTE | 2022-07-29 12:27 | PN.PCM_ITS ---
History of Present Illness Date of Service: 07/29/22 Chief Complaint: Recurrent sacral pressure sore, Stage III. History of Wound: Ms. Crews is a 46-year-old woman with a history of spina bifida returns today with a 10 day history of breakdown and recurrence of a previous sacral pressure ulcer. She denies any known precipitating factor. Mother states that she noted it on the 07 of December. Has been applying dry dressing. No significant improvement. She typically a lot of moisture in the area and there has been. She otherwise feels well denies chills, fever nausea vomiting. Progress of Wound: Stable. No new concerns or significant changes since last visit. Objective Data Objective Data Vital Signs: Vital Signs Temp Pulse Resp BP 97.5 F L 107 H 20 H 149/91 H 07/29/22 10:52 07/29/22 10:52 07/29/22 10:52 07/29/22 10:52 Lab / Micro Data Micro: Microbiology 07/22/22 10:50 Wound - Sacral Gram Stain - Final 07/22/22 10:50 Wound - Sacral Wound Culture - Final Proteus mirabilis Staphylococcus aureus 07/22/22 10:50 Wound - Sacral Anaerobic Culture - Final No anaerobic bacteria isolated. Charges/Coding Procedures Integumentary 111xxx-113xx: 75111 Sherlyn subq tissue 20 sq cm/< Physical Exam Const alert, oriented x3 and no apparent distress General Appearance: cooperative and well kempt HEENT normocephalic and hearing grossly normal bilaterally Head and Scalp: normal to inspection and atraumatic Neck full ROM and supple Resp normal respiratory effort Effort and Inspection: able to speak in complete sentences Skin Wounds: wounds noted Neuro oriented x3, CN's II-XII intact bilaterally and moves all extremities Psych mental status grossly normal, cooperative and affect normal Appearance: grossly normal Attitude: calm Speech: normal speech Debridement Note Debridement Note Wound debrided: Sacral Type of Debridement: Excisional debridement Anesthesia Used: 5% Lidocaine Gel Depth: Down to and including healthy tissue and in the subcutaneous layer Percentage of wound debrided: 100 Instrument Used: 5mm curette Tissue Removed: Slough and devitalized tissue Severity: Fat Layer Exposed Amount of bleeding with debridement: Mild Bleeding Controlled with: Pressure Patient tolerated procedure: Patient tolerated procedure well Post-Debridement Measurements and Additional Note: Post-Debridement Measurements/Treatment WC - Nurse 1 - General Ulcer Assessment Start: 07/08/22 10:14 Freq: Status: Active Protocol: WC.LOWEXT Activity Type Activity Date Activity User E-sign Co-sign Detail Recorded Client Recorded Date Recorded By Document 07/08/22 10:15 DL [id number] 07/08/22 10:25 DL Document 07/22/22 10:10 BMF [id number] 07/22/22 10:20 BMF Document 07/29/22 10:52 DL [id number] 07/29/22 10:54 DL 07/08/22 07/22/22 07/29/22 10:15 10:10 10:52 - Today's Visit Information Type of service Follow-up Visit Follow-up Visit Follow-up Visit (Physician/INFANTRY OPERATIONS SPECIALIST (Physician/INFANTRY OPERATIONS SPECIALIST (Physician/INFANTRY OPERATIONS SPECIALIST ) ) ) Arrival Mode Wheelchair Wheelchair Wheelchair Transfer Assistance Manual,None Manual Manual,None Transfer Assist (Other) x2 2 w/slide board x1 Accompanied by mom and caregiver Patient Identification Verified (Name & Yes Yes No ) Patient Requires Transmission-Based No No Precautions Vital Signs Temperature (97.8 F-99.1 F) 98 F 97.8 F 97.5 F L Temperature Source Temporal Temporal Temporal Pulse Rate (60-100) 113 H 108 H 107 H Pulse Location Monitor Monitor Respiratory Rate (12-18) 20 H 20 H Respiratory rate source Observation Observation Blood Pressure (90/60-120/80) 97/72 148/86 H 149/91 H Blood Pressure Mean (mm Hg) 80 106 110 Source Monitor Monitor Monitor Position Sitting Blood Pressure Location Left Forearm History Since Last Visit- (Skip if this is Patient's initial visit) Have you changed medications since your No No No last visit? Any new allergies or adverse reactions No No No Had a fall/change in ADL's that may No No No increase risk of falls Signs or symptoms of abuse and/or No No No neglect since last visit Have you been in the hospital since your No No No last visit? Has dressing in place as prescribed Yes Yes Yes Has compression in place as prescribed N/A N/A N/A Has offloadiing in place as prescribed N/A Yes Experienced any changes in pain level or No No No management Left Footwear Regular Shoe Right Footwear Regular Shoe Pain Scale: 0-10 Numeric Is Patient Pain Free? Yes Yes Yes WC - Nurse 1 - General Ulcer Measurement Start: 07/08/22 10:14 Freq: Status: Active Protocol: Activity Type Activity Date Activity User E-sign Co-sign Detail Recorded Client Recorded Date Recorded By Document 07/08/22 10:15 DL [id number] 07/08/22 10:25 DL Document 07/22/22 10:10 BMF [id number] 07/22/22 10:20 BMF Document 07/29/22 10:52 DL [id number] 07/29/22 10:54 DL 07/08/22 07/22/22 07/29/22 10:15 10:10 10:52 Wound Center Nurse 1 #6- sacral cluster -Combined with other wound No -Current Size (cm) - Length 1.8 2.6 2.2 -Current Size (cm) - Width 1.9 2.6 2.4 -Current Size (cm) - Depth 0.7 1.6 1.5 -Total Square Cm 3.42 6.76 5.28 -Date of Last Picture (Recall this 07/22/22 field) -Photo Taken Yes Yes Yes -Epithelialization None Present -Tunneling No -Undermining/Tunneling No -Circular Undermining No -Exudate Amt Medium Medium Medium -Exudate Type Serosanguineous Serosanguineous Serosanguineous -Wound Margin Distinct, Distinct, Thickened & Outline Outline Rolled Under Attached Attached -Granulation Amt Medium (34-66%) Small (1-33%) Medium (34-66%) -Granulation Quality [place],Red -Slough/Fibrin Yes -Necrosis Amt Medium (34-66%) Large (67-100%) Medium (34-66%) -Necrotic Tissue Type Adherent Slough Adherent Slough Adherent Slough -Structure Exposed N/A N/A -Texture (Patience-wound Skin Appearance) Scarring Assessed, Scarring Scarring -Moisture (Patience-wound Skin Appearance) No Abnormality Assessed Dry/Scaly -Color (Patience-wound Skin Appearance) No Abnormality Assessed, No Abnormality Erythema -Temperature (Patience-wound Skin No Abnormality No Abnormality No Abnormality Appearance) (Pt Warm) (Pt Warm) (Pt Warm) -Tenderness on Palpation (Patience-wound No No Skin Appearance) -Ulcer Cleansing Rinsed/ Rinsed/ Soap and Water Irrigated with Irrigated with Saline Saline -Foul Odor after Cleansing Yes, Due to No No Product Use -Anesthetic Used 5% Lidocaine 5% Lidocaine 5% Lidocaine Gel Gel Gel WC - Nurse 2 - General Ulcer CM Notes Start: 07/08/22 10:14 Freq: Status: Active Protocol: Activity Type Activity Date Activity User E-sign Co-sign Detail Recorded Client Recorded Date Recorded By Document 07/08/22 10:29 MW [id number] 07/08/22 10:31 MW Document 07/22/22 10:47 MW [id number] 07/22/22 10:55 MW Document 07/29/22 10:59 MW [id number] 07/29/22 11:05 MW 07/08/22 07/22/22 07/29/22 10:29 10:47 10:59 Wound Center Nurse 2 #6- sacral cluster -Time 10:29 10:47 11:00 -Correct Patient Yes Yes Yes -Correct Side, Site, Position Yes Yes Yes -Correct Procedure Yes Yes Yes -Procedure Performed Yes Yes Yes -Type of Procedure Debridement Debridement Debridement -Clinical Debridement Subcutaneous Subcutaneous Subcutaneous -Tissue Removed Subcutaneous Subcutaneous Subcutaneous -Post Debridement (cm) - Length 1.8 2.3 2.8 -Post Debridement (cm) - Width 2.0 2.6 2.4 -Post Debridement (cm) - Depth 0.4 1.5 1.6 -Total Square (Post) (cm) 3.60 5.98 6.72 -Area of Debridement (cm) - Length 1.8 2.3 2.8 -Area of Debridement (cm) - Width 2.0 2.6 2.4 -Total Square (Area) (cm) 3.60 5.98 6.72 -Tunneling No No No -Undermining/Tunneling No No No -Circular Undermining No No No -Wound/Ulcer Outcome Not Healed Not Healed Not Healed -Ulcer Cleansing Rinsed/ Wound Cleanser Rinsed/ Irrigated with Irrigated with Saline Saline -Foul Odor after Cleansing No No No -Bioengineered Tissue No No No -Bleeding Controlled with Pressure Pressure Pressure -Treatment Response Procedure Procedure Procedure Tolerated Well Tolerated Well Tolerated Well -Offloading No No No -Debridement - Subq, 1st 20sq cm Yes Yes Yes Pain Scale: 0-10 Numeric Is Patient Pain Free? Yes Yes Yes - Nurse 3 - General Ulcer D/C NN Start: 07/08/22 10:14 Freq: Status: Active Protocol: Activity Type Activity Date Activity User E-sign Co-sign Detail Recorded Client Recorded Date Recorded By Document 07/08/22 10:31 MW [id number] 07/08/22 10:32 MW Document 07/22/22 11:07 MW [id number] 07/22/22 11:08 MW 07/08/22 07/22/22 10:31 11:07 Wound Care Center Nurse 3 #6- sacral cluster -Ulcer Cleansing Rinsed/ Rinsed/ Irrigated with Irrigated with Saline Saline -Foul Odor after Cleansing No No -Negative Pressure Wound Therapy N/A N/A -Primary Dressing Applied Aquacel Extra Aquacel Extra, NonAdherent Contact Layer -Primary Dressing Covered/Secured with Secured with Tape -Other Covering ABD PAD ABD pad -Aquacel Extra 1 1 Treatment Response Procedure Procedure Tolerated Well Tolerated Well Pain Scale: 0-10 Numeric Is Patient Pain Free? Yes Yes Teaching: Wound Center Dressing Your Wound -Person Taught Patient,Family Patient,Family, Primary Caregiver -Teaching Method Discussion, Discussion Demonstration -Response to teaching Verbalize Verbalize understanding understanding WC - Visit Discharge Discharge Condition Stable Stable Ambulatory Status Walker Wheelchair Transportation Private Auto Private Auto Accompanied by MOM mom and caregiver Medication Reconcilliation completed & No provided to patient/care provider Clinical Summary of Care Provided Yes Yes Assessment/Plan Assessment/Plan (1) Pressure ulcer of sacral region, stage 3: CODE(S): L89.153 - Pressure ulcer of sacral region, stage 3 (2) Spina bifida: CODE(S): Q05.9 - Spina bifida, unspecified PLAN: Plan Debridement done as documented above, procedure was well-tolerated. No significant change since last visit. Culture reviewed, Proteus and staph with minimal growth. Allergy to fluoroquinolones, doxycycline prescribed. Mupirocin ointment also recommended. Has an appointment with plastic surgery on the . Continue Aquacel extra, cover with gauze and ABD and change daily to twice daily depending on drainage. Offloading very strongly recommended. Continue adequate protein intake, vitamin C and zinc. Their questions were answered and they were advised to call with any further questions or concerns. Follow-up in 1 week. This note was generated with [employer] dictation software. It may contain incorrect words, spelling, and punctuation that were not noted in checking the note before signing.
== END 2022-08-03 23:59 | disposition home or self-care (01) ==
LOC: WC 10:45
PROVIDERS: PCP Nurse Practitioner Family; Visit Provider Internal Medicine
DX: L89.153 Pressure ulcer of sacral region, stage 3 (principal); Q05.9 Spina bifida, unspecified
CPT/HCPCS: 11042; 87070; 87075; 87077; 87186; 87205

== ENCOUNTER 2022-08-26 10:45 | Outpatient (RCR) | payer MEDICARE, MEDICAID, SELFPAY ==
[2022-08-04 00:21] VITALS: BP 149/91; PULSE 107; RESP 20; TEMP 36.4
[2022-08-05 10:27] VITALS: BP 138/98; PULSE 110; RESP 16; TEMP 36.9
--- NOTE | 2022-08-05 13:27 | PN.PCM_ITS ---
History of Present Illness Date of Service: 08/05/22 Chief Complaint: Recurrent sacral pressure sore, Stage III. History of Wound: Ms. Crews is a 46-year-old woman with a history of spina bifida returns today with a 10 day history of breakdown and recurrence of a previous sacral pressure ulcer. She denies any known precipitating factor. Mother states that she noted it on the 07 of December. Has been applying dry dressing. No significant improvement. She typically a lot of moisture in the area and there has been. She otherwise feels well denies chills, fever nausea vomiting. Progress of Wound: No new concerns at this time. Established with plastic surgery and plan is for surgery however date has not been fixed. Objective Data Objective Data Vital Signs: Vital Signs Temp Pulse Resp BP O2 Del Method 98.4 F 110 H 16 138/98 H Room Air 08/05/22 10:27 08/05/22 10:27 08/05/22 10:27 08/05/22 10:27 08/05/22 10:27 Oxygen Delivery Method Room Air Charges/Coding Procedures Integumentary 111xxx-113xx: 40154 Sherlyn subq tissue 20 sq cm/< Physical Exam Const alert, oriented x3 and no apparent distress General Appearance: cooperative and well kempt HEENT normocephalic and hearing grossly normal bilaterally Head and Scalp: normal to inspection and atraumatic Neck full ROM and supple Resp normal respiratory effort Effort and Inspection: able to speak in complete sentences Skin Wounds: wounds noted Neuro oriented x3, CN's II-XII intact bilaterally and moves all extremities Psych mental status grossly normal, cooperative and affect normal Appearance: grossly normal Attitude: calm Speech: normal speech Debridement Note Debridement Note Wound debrided: Sacral Type of Debridement: Excisional debridement Anesthesia Used: 5% Lidocaine Gel Depth: Down to and including healthy tissue and in the subcutaneous layer Percentage of wound debrided: 100 Instrument Used: 5mm curette Tissue Removed: Slough and devitalized tissue Severity: Fat Layer Exposed Amount of bleeding with debridement: Mild Bleeding Controlled with: Pressure Patient tolerated procedure: Patient tolerated procedure well Post-Debridement Measurements and Additional Note: Post-Debridement Measurements/Treatment JESSICA - Nurse 1 - General Ulcer Assessment Start: 08/05/22 10:27 Freq: Status: Active Protocol: TOBIN Activity Type Activity Date Activity User E-sign Co-sign Detail Recorded Client Recorded Date Recorded By Document 08/05/22 10:27 [facility] [id number] 08/05/22 10:37 [facility] 08/05/22 10:27 - Today's Visit Information Type of service Follow-up Visit (Physician/ASSISTIVE TECHNOLOGY SPECIALIST ) Arrival Mode Wheelchair Transfer Assistance Manual Transfer Assist (Other) 2 W/ SLIDE BOARD Accompanied by 2 CAREGIVERS Patient Identification Verified (Name & Yes ) Patient Requires Transmission-Based No Precautions Vital Signs Temperature (97.8 F-99.1 F) 98.4 F Temperature Source Temporal Pulse Rate (60-100) 110 H Pulse Location Monitor Respiratory Rate (12-18) 16 Respiratory rate source Observation Oxygen Delivery Method Room Air Blood Pressure (90/60-120/80) 138/98 H Blood Pressure Mean (mm Hg) 111 Source Monitor Position Sitting Blood Pressure Location Right Arm History Since Last Visit- (Skip if this is Patient's initial visit) Have you changed medications since your No last visit? Any new allergies or adverse reactions No Had a fall/change in ADL's that may No increase risk of falls Signs or symptoms of abuse and/or No neglect since last visit Have you been in the hospital since your No last visit? Has dressing in place as prescribed Yes Has compression in place as prescribed N/A Has offloadiing in place as prescribed N/A Experienced any changes in pain level or No management Left Footwear Regular Shoe Right Footwear Regular Shoe Pain Scale: 0-10 Numeric Is Patient Pain Free? Yes - Nurse 1 - General Ulcer Measurement Start: 08/05/22 10:27 Freq: Status: Active Protocol: Activity Type Activity Date Activity User E-sign Co-sign Detail Recorded Client Recorded Date Recorded By Document 08/05/22 10:27 [facility] [id number] 08/05/22 10:37 [facility] 08/05/22 10:27 Wound Center Nurse 1 #6- sacral cluster -Combined with other wound No -Current Size (cm) - Length 2 -Current Size (cm) - Width 2.7 -Current Size (cm) - Depth 1.3 -Total Square Cm 5.4 -Date of Last Picture (Recall this 08/05/22 field) -Photo Taken Yes -Epithelialization None Present -Tunneling No -Undermining/Tunneling No -Circular Undermining No -Exudate Amt Medium -Exudate Type Serosanguineous -Wound Margin Thickened -Granulation Amt Small (1-33%) -Granulation Quality No Name -Slough/Fibrin Yes -Necrosis Amt Large (67-100%) -Necrotic Tissue Type Adherent Slough -Texture (Patience-wound Skin Appearance) Assessed, Scarring -Moisture (Patience-wound Skin Appearance) Assessed -Color (Patience-wound Skin Appearance) Assessed, Erythema -Temperature (Patience-wound Skin No Abnormality Appearance) (Pt Warm) -Tenderness on Palpation (Patience-wound No Skin Appearance) -Ulcer Cleansing Soap and Water -Foul Odor after Cleansing No -Anesthetic Used 5% Lidocaine Gel WC - Nurse 2 - General Ulcer CM Notes Start: 08/05/22 10:27 Freq: Status: Active Protocol: Activity Type Activity Date Activity User E-sign Co-sign Detail Recorded Client Recorded Date Recorded By Document 08/05/22 10:48 MW [id number] 08/05/22 10:52 MW 08/05/22 10:48 Wound Center Nurse 2 -Time 10:49 -Correct Patient Yes -Correct Side, Site, Position Yes -Correct Procedure Yes -Procedure Performed Yes -Type of Procedure Debridement -Clinical Debridement Subcutaneous -Tissue Removed Subcutaneous -Post Debridement (cm) - Length 3.0 -Post Debridement (cm) - Width 3.0 -Post Debridement (cm) - Depth 1.7 -Total Square (Post) (cm) 9.00 -Area of Debridement (cm) - Length 3.0 -Area of Debridement (cm) - Width 3.0 -Total Square (Area) (cm) 9.00 -Tunneling No -Undermining/Tunneling No -Circular Undermining No -Wound/Ulcer Outcome Not Healed -Ulcer Cleansing Rinsed/ Irrigated with Saline -Foul Odor after Cleansing No -Bioengineered Tissue No -Bleeding Controlled with Pressure -Treatment Response Procedure Tolerated Well -Offloading No -Debridement - Subq, 1st 20sq cm Yes Pain Scale: 0-10 Numeric Is Patient Pain Free? Yes - Nurse 3 - General Ulcer D/C NN Start: 08/05/22 10:27 Freq: Status: Active Protocol: Activity Type Activity Date Activity User E-sign Co-sign Detail Recorded Client Recorded Date Recorded By Document 08/05/22 11:15 BMF [id number] 08/05/22 11:15 BM 08/05/22 11:15 Wound Care Center Nurse 3 #6- sacral cluster -Ulcer Cleansing Rinsed/ Irrigated with Saline -Foul Odor after Cleansing No -Primary Dressing Applied Aquacel Extra -Other Dressing BACTROBAN -Primary Dressing Covered/Secured with Secured with Tape,Other -Other Covering ABD -Aquacel Extra 1 Treatment Response Procedure Tolerated Well Pain Scale: 0-10 Numeric Is Patient Pain Free? Yes WC - Visit Discharge Discharge Condition Stable Ambulatory Status Wheelchair Transportation Private Auto Accompanied by 2 CAREGIVERS Other SENIOR CARE Assessment/Plan Assessment/Plan (1) Pressure ulcer of sacral region, stage 3: CODE(S): L89.153 - Pressure ulcer of sacral region, stage 3 (2) Spina bifida: CODE(S): Q05.9 - Spina bifida, unspecified PLAN: Plan Debridement done as documented above, procedure was well-tolerated. As above, has established with plastics and plan is for surgery but date still pending. Continue Aquacel extra, cover with gauze and ABD and change daily to twice daily depending on drainage. Continue mupirocin ointment. Offloading very strongly recommended. Continue adequate protein intake, vitamin C and zinc. Their questions were answered and they were advised to call with any further questions or concerns. Follow-up in 1 week. This note was generated with [employer] dictation software. It may contain incorrect words, spelling, and punctuation that were not noted in checking the note before signing.
[2022-08-12 11:18] VITALS: BP 126/87; PULSE 109; TEMP 36.1
--- NOTE | 2022-08-12 11:37 | PCM.WC.PN ---
History of Present Illness Date of Service: 08/12/22 Chief Complaint: Recurrent sacral pressure sore, Stage III. History of Wound: Ms. Crews is a 46-year-old woman with a history of spina bifida returns today with a 10 day history of breakdown and recurrence of a previous sacral pressure ulcer. She denies any known precipitating factor. Mother states that she noted it on the 07 of December. Has been applying dry dressing. No significant improvement. She typically a lot of moisture in the area and there has been. She otherwise feels well denies chills, fever nausea vomiting. Progress of Wound: No new concerns at this time, some improvement noted. Objective Data Objective Data Vital Signs: Vital Signs Temp Pulse Resp BP O2 Del Method 97 F L 109 H 16 126/87 H Room Air 08/12/22 11:18 08/12/22 11:18 08/05/22 10:27 08/12/22 11:18 08/05/22 10:27 Oxygen Delivery Method Room Air Charges/Coding Procedures Integumentary 111xxx-113xx: [id number] Sherlyn subq tissue 20 sq cm/< Physical Exam Const alert, oriented x3 and no apparent distress General Appearance: cooperative and well kempt HEENT normocephalic and hearing grossly normal bilaterally Head and Scalp: normal to inspection and atraumatic Neck full ROM and supple Resp normal respiratory effort Effort and Inspection: able to speak in complete sentences Skin Wounds: wounds noted Neuro oriented x3, CN's II-XII intact bilaterally and moves all extremities Psych mental status grossly normal, cooperative and affect normal Appearance: grossly normal Speech: normal speech Debridement Note Debridement Note Wound debrided: Sacral Type of Debridement: Excisional debridement Anesthesia Used: 5% Lidocaine Gel Depth: Down to and including healthy tissue and in the subcutaneous layer Percentage of wound debrided: 100 Instrument Used: 5mm curette Tissue Removed: Slough and devitalized tissue Severity: Fat Layer Exposed Amount of bleeding with debridement: Mild Bleeding Controlled with: Pressure Patient tolerated procedure: Patient tolerated procedure well Post-Debridement Measurements and Additional Note: Post-Debridement Measurements/Treatment JESSICA - Nurse 1 - General Ulcer Assessment Start: 08/05/22 10:27 Freq: Status: Active Protocol: TOBIN Activity Type Activity Date Activity User E-sign Co-sign Detail Recorded Client Recorded Date Recorded By Document 08/05/22 10:27 [facility] [id number] 08/05/22 10:37 [facility] Document 08/12/22 11:18 [facility] [id number] 08/12/22 11:24 [facility] 08/05/22 08/12/22 10:27 11:18 - Today's Visit Information Type of service Follow-up Visit Follow-up Visit (Physician/[employer] (Physician/[employer] ) ) Arrival Mode Wheelchair Wheelchair Transfer Assistance Manual Other Transfer Assist (Other) 2 W/ SLIDE 2 BOARD Accompanied by 2 CAREGIVERS 2CAREGIVERS Patient Identification Verified (Name & Yes Yes ) Patient Requires Transmission-Based No No Precautions Vital Signs Temperature (97.8 F-99.1 F) 98.4 F 97 F L Temperature Source Temporal Temporal Pulse Rate (60-100) 110 H 109 H Pulse Location Monitor Monitor Respiratory Rate (12-18) 16 Respiratory rate source Observation Oxygen Delivery Method Room Air Blood Pressure (90/60-120/80) 138/98 H 126/87 H Blood Pressure Mean (mm Hg) 111 100 Source Monitor Monitor Position Sitting Sitting Blood Pressure Location Right Arm Right Forearm History Since Last Visit- (Skip if this is Patient's initial visit) Have you changed medications since your No No last visit? Any new allergies or adverse reactions No No Had a fall/change in ADL's that may No No increase risk of falls Signs or symptoms of abuse and/or No No neglect since last visit Have you been in the hospital since your No No last visit? Has dressing in place as prescribed Yes Yes Has compression in place as prescribed N/A N/A Has offloadiing in place as prescribed N/A N/A Experienced any changes in pain level or No No management Left Footwear Regular Shoe Slipper Right Footwear Regular Shoe Slipper Pain Scale: 0-10 Numeric Is Patient Pain Free? Yes Yes - Nurse 1 - General Ulcer Measurement Start: 08/05/22 10:27 Freq: Status: Active Protocol: Activity Type Activity Date Activity User E-sign Co-sign Detail Recorded Client Recorded Date Recorded By Document 08/05/22 10:27 [facility] [id number] 08/05/22 10:37 [facility] Document 08/12/22 11:18 [facility] [id number] 08/12/22 11:24 BMF 08/05/22 08/12/22 10:27 11:18 Wound Center Nurse 1 #6- sacral cluster -Combined with other wound No No -Current Size (cm) - Length 2 2.1 -Current Size (cm) - Width 2.7 2.9 -Current Size (cm) - Depth 1.3 1 -Total Square Cm 5.4 6.09 -Date of Last Picture (Recall this 08/05/22 08/12/22 field) -Photo Taken Yes Yes -Epithelialization None Present None Present -Tunneling No No -Undermining/Tunneling No No -Circular Undermining No No -Exudate Amt Medium Medium -Exudate Type Serosanguineous Serosanguineous -Wound Margin Thickened Thickened -Granulation Amt Small (1-33%) Small (1-33%) -Granulation Quality [place] Red -Slough/Fibrin Yes Yes -Necrosis Amt Large (67-100%) Large (67-100%) -Necrotic Tissue Type Adherent Slough Adherent Slough -Texture (Patience-wound Skin Appearance) Assessed, Assessed, Scarring Scarring -Moisture (Patience-wound Skin Appearance) Assessed Assessed -Color (Patience-wound Skin Appearance) Assessed, Assessed Erythema -Temperature (Patience-wound Skin No Abnormality No Abnormality Appearance) (Pt Warm) (Pt Warm) -Tenderness on Palpation (Patience-wound No No Skin Appearance) -Ulcer Cleansing Soap and Water Rinsed/ Irrigated with Saline -Foul Odor after Cleansing No No -Anesthetic Used 5% Lidocaine 5% Lidocaine Gel Gel WC - Nurse 2 - General Ulcer CM Notes Start: 08/05/22 10:27 Freq: Status: Active Protocol: Activity Type Activity Date Activity User E-sign Co-sign Detail Recorded Client Recorded Date Recorded By Document 08/05/22 10:48 MW [id number] 08/05/22 10:52 MW 08/05/22 10:48 Wound Center Nurse 2 -Time 10:49 -Correct Patient Yes -Correct Side, Site, Position Yes -Correct Procedure Yes -Procedure Performed Yes -Type of Procedure Debridement -Clinical Debridement Subcutaneous -Tissue Removed Subcutaneous -Post Debridement (cm) - Length 3.0 -Post Debridement (cm) - Width 3.0 -Post Debridement (cm) - Depth 1.7 -Total Square (Post) (cm) 9.00 -Area of Debridement (cm) - Length 3.0 -Area of Debridement (cm) - Width 3.0 -Total Square (Area) (cm) 9.00 -Tunneling No -Undermining/Tunneling No -Circular Undermining No -Wound/Ulcer Outcome Not Healed -Ulcer Cleansing Rinsed/ Irrigated with Saline -Foul Odor after Cleansing No -Bioengineered Tissue No -Bleeding Controlled with Pressure -Treatment Response Procedure Tolerated Well -Offloading No -Debridement - Subq, 1st 20sq cm Yes Pain Scale: 0-10 Numeric Is Patient Pain Free? Yes - Nurse 3 - General Ulcer D/C NN Start: 08/05/22 10:27 Freq: Status: Active Protocol: Activity Type Activity Date Activity User E-sign Co-sign Detail Recorded Client Recorded Date Recorded By Document 08/05/22 11:15 [facility] [id number] 08/05/22 11:15 [facility] 08/05/22 11:15 Wound Care Center Nurse 3 #6- sacral cluster -Ulcer Cleansing Rinsed/ Irrigated with Saline -Foul Odor after Cleansing No -Primary Dressing Applied Aquacel Extra -Other Dressing BACTROBAN -Primary Dressing Covered/Secured with Secured with Tape,Other -Other Covering ABD -Aquacel Extra 1 Treatment Response Procedure Tolerated Well Pain Scale: 0-10 Numeric Is Patient Pain Free? Yes - Visit Discharge Discharge Condition Stable Ambulatory Status Wheelchair Transportation Private Auto Accompanied by 2 CAREGIVERS Other [facility]IV[facility] Assessment/Plan Assessment/Plan (1) Pressure ulcer of sacral region, stage 3: CODE(S): L89.153 - Pressure ulcer of sacral region, stage 3 (2) Spina bifida: CODE(S): Q05.9 - Spina bifida, unspecified PLAN: Plan Debridement done as documented above, procedure was well-tolerated. Some improvement noted, no new concerns. Still awaiting neck steps from plastics. Continue Aquacel extra, cover with gauze and ABD and change daily to twice daily depending on drainage. Continue mupirocin ointment. Offloading very strongly recommended. Continue adequate protein intake, vitamin C and zinc. Their questions were answered and they were advised to call with any further questions or concerns. Follow-up in 1 week. This note was generated with [employer] software. It may contain incorrect words, spelling, and punctuation that were not noted in checking the note before signing.
[2022-08-26 10:57] VITALS: BP 121/80; PULSE 91; RESP 16
--- NOTE | 2022-08-26 12:27 | PCM.WC.PN ---
History of Present Illness Date of Service: 08/26/22 Chief Complaint: Recurrent sacral pressure sore, Stage III. History of Wound: Ms. Crews is a 46-year-old woman with a history of spina bifida returns today with a 10 day history of breakdown and recurrence of a previous sacral pressure ulcer. She denies any known precipitating factor. Mother states that she noted it on the 07 of December. Has been applying dry dressing. No significant improvement. She typically a lot of moisture in the area and there has been. She otherwise feels well denies chills, fever nausea vomiting. Progress of Wound: Stable. No new concerns at this time. Scheduled for her procedure in October. Objective Data Objective Data Vital Signs: Vital Signs Temp Pulse Resp BP O2 Del Method 97 F L 91 16 121/80 H Room Air 08/12/22 11:18 08/26/22 10:57 08/26/22 10:57 08/26/22 10:57 08/26/22 10:57 Oxygen Delivery Method Room Air Physical Exam Const alert, oriented x3 and no apparent distress General Appearance: cooperative and well kempt HEENT normocephalic and hearing grossly normal bilaterally Head and Scalp: normal to inspection and atraumatic Neck full ROM and supple Resp normal respiratory effort Effort and Inspection: able to speak in complete sentences Skin Wounds: wounds noted Neuro oriented x3, CN's II-XII intact bilaterally and moves all extremities Psych mental status grossly normal, cooperative and affect normal Appearance: grossly normal Speech: normal speech Debridement Note Debridement Note Wound debrided: Sacral Type of Debridement: Excisional debridement Anesthesia Used: 5% Lidocaine Gel Depth: Down to and including healthy tissue and in the subcutaneous layer Percentage of wound debrided: 100 Instrument Used: 5mm curette Tissue Removed: Slough and devitalized tissue Severity: Fat Layer Exposed Amount of bleeding with debridement: Mild Bleeding Controlled with: Pressure Patient tolerated procedure: Patient tolerated procedure well Post-Debridement Measurements and Additional Note: Post-Debridement Measurements/Treatment - Nurse 1 - General Ulcer Assessment Start: 08/05/22 10:27 Freq: Status: Active Protocol: TOBIN Activity Type Activity Date Activity User E-sign Co-sign Detail Recorded Client Recorded Date Recorded By Document 08/05/22 10:27 [facility] [id number] 08/05/22 10:37 [facility] Document 08/12/22 11:18 [facility] [id number] 08/12/22 11:24 [facility] Document 08/26/22 10:57 [facility] [id number] 08/26/22 11:05 BMF 08/05/22 08/12/22 08/26/22 10:27 11:18 10:57 - Today's Visit Information Type of service Follow-up Visit Follow-up Visit Follow-up Visit (Physician/[employer] (Physician/[employer] (Physician/[employer] ) ) ) Arrival Mode Wheelchair Wheelchair Wheelchair Transfer Assistance Manual Other Other Transfer Assist (Other) 2 W/ SLIDE 2 2 BOARD Accompanied by 2 CAREGIVERS 2CAREGIVERS 2 CAREGIVERS Patient Identification Verified (Name & Yes Yes Yes ) Patient Requires Transmission-Based No No No Precautions Vital Signs Temperature (97.8 F-99.1 F) 98.4 F 97 F L Temperature Source Temporal Temporal Pulse Rate (60-100) 110 H 109 H 91 Pulse Location Monitor Monitor Monitor Respiratory Rate (12-18) 16 16 Respiratory rate source Observation Observation Oxygen Delivery Method Room Air Room Air Blood Pressure (90/60-120/80) 138/98 H 126/87 H 121/80 H Blood Pressure Mean (mm Hg) 111 100 93 Source Monitor Monitor Monitor Position Sitting Sitting Sitting Blood Pressure Location Right Arm Right Forearm Right Forearm History Since Last Visit- (Skip if this is Patient's initial visit) Have you changed medications since your No No No last visit? Any new allergies or adverse reactions No No No Had a fall/change in ADL's that may No No No increase risk of falls Signs or symptoms of abuse and/or No No No neglect since last visit Have you been in the hospital since your No No No last visit? Has dressing in place as prescribed Yes Yes Yes Has compression in place as prescribed N/A N/A N/A Has offloadiing in place as prescribed N/A N/A N/A Experienced any changes in pain level or No No No management Left Footwear Regular Shoe Slipper Slipper Right Footwear Regular Shoe Slipper Slipper Pain Scale: 0-10 Numeric Is Patient Pain Free? Yes Yes Yes - Nurse 1 - General Ulcer Measurement Start: 08/05/22 10:27 Freq: Status: Active Protocol: Activity Type Activity Date Activity User E-sign Co-sign Detail Recorded Client Recorded Date Recorded By Document 08/05/22 10:27 [facility] [id number] 08/05/22 10:37 [facility] Document 08/12/22 11:18 [facility] [id number] 08/12/22 11:24 [facility] Document 08/26/22 10:57 [facility] [id number] 08/26/22 11:05 [facility] 08/05/22 08/12/22 08/26/22 10:27 11:18 10:57 Wound Center Nurse 1 #6- sacral cluster -Combined with other wound No No No -Current Size (cm) - Length 2 2.1 2.5 -Current Size (cm) - Width 2.7 2.9 2.4 -Current Size (cm) - Depth 1.3 1 1 -Total Square Cm 5.4 6.09 6.00 -Date of Last Picture (Recall this 08/05/22 08/12/22 08/26/22 field) -Photo Taken Yes Yes Yes -Epithelialization None Present None Present None Present -Tunneling No No No -Undermining/Tunneling No No No -Circular Undermining No No No -Exudate Amt Medium Medium Medium -Exudate Type Serosanguineous Serosanguineous Serous -Wound Margin Thickened Thickened Distinct, Outline Attached -Granulation Amt Small (1-33%) Small (1-33%) None Present (0 %) -Granulation Quality [place] Red -Slough/Fibrin Yes Yes Yes -Necrosis Amt Large (67-100%) Large (67-100%) Large (67-100%) -Necrotic Tissue Type Adherent Slough Adherent Slough Adherent Slough -Texture (Patience-wound Skin Appearance) Assessed, Assessed, Assessed, Scarring Scarring Scarring -Moisture (Patience-wound Skin Appearance) Assessed Assessed Assessed -Color (Patience-wound Skin Appearance) Assessed, Assessed Assessed Erythema -Temperature (Patience-wound Skin No Abnormality No Abnormality No Abnormality Appearance) (Pt Warm) (Pt Warm) (Pt Warm) -Tenderness on Palpation (Patience-wound No No No Skin Appearance) -Ulcer Cleansing Soap and Water Rinsed/ Soap and Water Irrigated with Saline -Foul Odor after Cleansing No No No -Anesthetic Used 5% Lidocaine 5% Lidocaine 5% Lidocaine Gel Gel Gel WC - Nurse 2 - General Ulcer CM Notes Start: 08/05/22 10:27 Freq: Status: Active Protocol: Activity Type Activity Date Activity User E-sign Co-sign Detail Recorded Client Recorded Date Recorded By Document 08/05/22 10:48 MW [id number] 08/05/22 10:52 MW Document 08/12/22 11:28 BMF [id number] 08/12/22 11:47 BMF Document 08/26/22 11:26 MW [id number] 08/26/22 11:29 MW 08/05/22 08/12/22 08/26/22 10:48 11:28 11:26 Wound Center Nurse 2 #6- sacral cluster -Time 10:49 11:30 11:27 -Correct Patient Yes Yes Yes -Correct Side, Site, Position Yes Yes Yes -Correct Procedure Yes Yes Yes -Procedure Performed Yes Yes Yes -Type of Procedure Debridement Debridement Debridement -Clinical Debridement Subcutaneous Subcutaneous Subcutaneous -Tissue Removed Subcutaneous Subcutaneous, Subcutaneous Slough -Post Debridement (cm) - Length 3.0 2.3 2.5 -Post Debridement (cm) - Width 3.0 2.6 2.5 -Post Debridement (cm) - Depth 1.7 1.1 1.1 -Total Square (Post) (cm) 9.00 5.98 6.25 -Area of Debridement (cm) - Length 3.0 2.3 2.5 -Area of Debridement (cm) - Width 3.0 2.6 2.5 -Total Square (Area) (cm) 9.00 5.98 6.25 -Tunneling No No No -Undermining/Tunneling No No No -Circular Undermining No No No -Wound/Ulcer Outcome Not Healed Not Healed Not Healed -Ulcer Cleansing Rinsed/ Rinsed/ Rinsed/ Irrigated with Irrigated with Irrigated with Saline Saline Saline -Foul Odor after Cleansing No No No -Bioengineered Tissue No No No -Bleeding Controlled with Pressure Pressure Pressure -Treatment Response Procedure Procedure Procedure Tolerated Well Tolerated Well Tolerated Well -Offloading No No -Assistive Device(s) Wheelchair -Pressure Reduction Wheelchair cushion -Debridement - Subq, 1st 20sq cm Yes Yes Yes Pain Scale: 0-10 Numeric Is Patient Pain Free? Yes Yes Yes JESSICA - Nurse 3 - General Ulcer D/C NN Start: 08/05/22 10:27 Freq: Status: Active Protocol: Activity Type Activity Date Activity User E-sign Co-sign Detail Recorded Client Recorded Date Recorded By Document 08/05/22 11:15 BM [id number] 08/05/22 11:15 BM Document 08/12/22 11:52 [id number] 08/12/22 11:52 Document 08/26/22 11:36 BM [id number] 08/26/22 11:38 BMF Edit Result 08/26/22 11:36 BMF (1) [id number] 08/26/22 11:40 BMF (1) #6- sacral cluster - Other Covering ABD => ABD; - Aquacel Extra 1 => 3 08/05/22 08/12/22 08/26/22 11:15 11:52 11:36 Wound Care Center Nurse 3 #6- sacral cluster -Ulcer Cleansing Rinsed/ Rinsed/ Rinsed/ Irrigated with Irrigated with Irrigated with Saline Saline Saline -Foul Odor after Cleansing No No No -Primary Dressing Applied Aquacel Extra Aquacel Extra Aquacel Extra -Other Dressing BACTROBAN BACTROBAN BACTROBAN -Primary Dressing Covered/Secured with Secured with Dry Gauze, Tape,Other Secured with Tape -Other Covering ABD ABD; -Aquacel Extra 1 1 3 Treatment Response Procedure Tolerated Well Pain Scale: 0-10 Numeric Is Patient Pain Free? Yes Yes Yes WC - Visit Discharge Discharge Condition Stable Stable Stable Ambulatory Status Wheelchair Wheelchair Wheelchair Transportation Private Auto Private Auto Private Auto Accompanied by 2 CAREGIVERS Medication Reconcilliation completed & Yes provided to patient/care provider Clinical Summary of Care Provided Yes Facility Type Home Health Other RESIDENTIAL Orders Sent Yes Assessment/Plan Assessment/Plan (1) Pressure ulcer of sacral region, stage 3: CODE(S): L89.153 - Pressure ulcer of sacral region, stage 3 (2) Spina bifida: CODE(S): Q05.9 - Spina bifida, unspecified PLAN: Plan Debridement done as documented above, procedure was well-tolerated. Stable, no new concerns. Plan per patient is for surgery in October. Continue Aquacel extra, cover with gauze and ABD and change daily to twice daily depending on drainage. Continue mupirocin ointment. Offloading very strongly recommended. Continue adequate protein intake, vitamin C and zinc. Their questions were answered and they were advised to call with any further questions or concerns. Follow-up in 2 weeks. This note was generated with [employer] software. It may contain incorrect words, spelling, and punctuation that were not noted in checking the note before signing.
== END 2022-09-03 23:59 | disposition home or self-care (01) ==
LOC: WC 10:45
PROVIDERS: PCP Nurse Practitioner Family; Visit Provider Internal Medicine
DX: L89.153 Pressure ulcer of sacral region, stage 3 (principal); Q05.9 Spina bifida, unspecified
CPT/HCPCS: 11042

== ENCOUNTER 2022-09-23 11:15 | Outpatient (RCR) | payer MEDICARE, MEDICAID, SELFPAY ==
[2022-09-04 01:36] VITALS: BP 121/80; PULSE 91; RESP 16; TEMP 36.1
[2022-09-09 11:24] VITALS: BP 112/75; PULSE 108; RESP 20; TEMP 36.2
--- NOTE | 2022-09-09 17:08 | PN.PCM_ITS ---
History of Present Illness Date of Service: 09/09/22 Chief Complaint: Recurrent sacral pressure sore, Stage III. History of Wound: Ms. Crews is a 46-year-old woman with a history of spina bifida returns today with a 10 day history of breakdown and recurrence of a previous sacral pressure ulcer. She denies any known precipitating factor. Mother states that she noted it on the 07 of December. Has been applying dry dressing. No significant improvement. She typically a lot of moisture in the area and there has been. She otherwise feels well denies chills, fever nausea vomiting. Progress of Wound: Stable ulcer, no acute concerns at this time. Objective Data Objective Data Vital Signs: Vital Signs Temp Pulse Resp BP 97.1 F L 108 H 20 H 112/75 09/09/22 11:24 09/09/22 11:24 09/09/22 11:24 09/09/22 11:24 Charges/Coding Procedures Integumentary 111xxx-113xx: [id number] Sherlyn subq tissue 20 sq cm/< Physical Exam Const alert, oriented x3 and no apparent distress General Appearance: cooperative and well kempt HEENT normocephalic and hearing grossly normal bilaterally Head and Scalp: normal to inspection and atraumatic Neck full ROM and supple Resp normal respiratory effort Effort and Inspection: able to speak in complete sentences Skin Wounds: wounds noted Neuro oriented x3, CN's II-XII intact bilaterally and moves all extremities Psych mental status grossly normal, cooperative and affect normal Appearance: grossly normal Speech: normal speech Debridement Note Debridement Note Wound debrided: Sacral Type of Debridement: Excisional debridement Anesthesia Used: 5% Lidocaine Gel Depth: Down to and including healthy tissue and in the subcutaneous layer Percentage of wound debrided: 100 Instrument Used: 5mm curette Tissue Removed: Slough and devitalized tissue Severity: Fat Layer Exposed Amount of bleeding with debridement: Mild Bleeding Controlled with: Pressure Patient tolerated procedure: Patient tolerated procedure well Post-Debridement Measurements and Additional Note: Post-Debridement Measurements/Treatment JESSICA - Nurse 1 - General Ulcer Assessment Start: 09/09/22 11:23 Freq: Status: Active Protocol: TOBIN Activity Type Activity Date Activity User E-sign Co-sign Detail Recorded Client Recorded Date Recorded By Document 09/09/22 11:24 DL [id number] 09/09/22 11:31 DL 09/09/22 11:24 - Today's Visit Information Type of service Follow-up Visit (Physician/MAILROOM ASSOCIATE ) Arrival Mode Wheelchair Transfer Assistance Manual Transfer Assist (Other) X2 Patient Identification Verified (Name & Yes ) Patient Requires Transmission-Based No Precautions Vital Signs Temperature (97.8 F-99.1 F) 97.1 F L Temperature Source Temporal Pulse Rate (60-100) 108 H Pulse Location Monitor Respiratory Rate (12-18) 20 H Respiratory rate source Observation Blood Pressure (90/60-120/80) 112/75 Blood Pressure Mean (mm Hg) 87 Source Monitor History Since Last Visit- (Skip if this is Patient's initial visit) Have you changed medications since your No last visit? Any new allergies or adverse reactions No Had a fall/change in ADL's that may No increase risk of falls Signs or symptoms of abuse and/or No neglect since last visit Have you been in the hospital since your No last visit? Has dressing in place as prescribed Yes Has offloadiing in place as prescribed Yes Experienced any changes in pain level or No management Pain Scale: 0-10 Numeric Is Patient Pain Free? Yes - Nurse 1 - General Ulcer Measurement Start: 09/09/22 11:23 Freq: Status: Active Protocol: Activity Type Activity Date Activity User E-sign Co-sign Detail Recorded Client Recorded Date Recorded By Document 09/09/22 11:24 [id number] 09/09/22 11:31 DL 09/09/22 11:24 Wound Center Nurse 1 #6- sacral cluster -Current Size (cm) - Length 2.6 -Current Size (cm) - Width 2.1 -Current Size (cm) - Depth 1.1 -Total Square Cm 5.46 -Photo Taken No -Undermining/Tunneling Starts (O'clock 1 ) -Undermining/Tunneling Ends (O'clock) 2 -Maximum Distance (cm) 1 -Exudate Type Serosanguineous -Wound Margin Thickened & Rolled Under -Granulation Amt None Present (0 %) -Necrosis Amt Large (67-100%) -Necrotic Tissue Type Adherent Slough -Structure Exposed N/A -Texture (Patience-wound Skin Appearance) Scarring -Moisture (Patience-wound Skin Appearance) No Abnormality -Color (Patience-wound Skin Appearance) No Abnormality -Temperature (Patience-wound Skin No Abnormality Appearance) (Pt Warm) -Tenderness on Palpation (Patience-wound No Skin Appearance) -Ulcer Cleansing Rinsed/ Irrigated with Saline -Foul Odor after Cleansing No -Anesthetic Used 5% Lidocaine Gel - Nurse 2 - General Ulcer CM Notes Start: 09/09/22 11:23 Freq: Status: Active Protocol: Activity Type Activity Date Activity User E-sign Co-sign Detail Recorded Client Recorded Date Recorded By Document 09/09/22 11:51 MW [id number] 09/09/22 11:54 MW 09/09/22 11:51 Wound Center Nurse 2 -Time 11:51 -Correct Patient Yes -Correct Side, Site, Position Yes -Correct Procedure Yes -Procedure Performed Yes -Type of Procedure Debridement -Clinical Debridement Subcutaneous -Tissue Removed Subcutaneous -Post Debridement (cm) - Length 2.5 -Post Debridement (cm) - Width 2.5 -Post Debridement (cm) - Depth 1.0 -Total Square (Post) (cm) 6.25 -Area of Debridement (cm) - Length 2.5 -Area of Debridement (cm) - Width 2.5 -Total Square (Area) (cm) 6.25 -Tunneling No -Undermining/Tunneling No -Circular Undermining No -Wound/Ulcer Outcome Not Healed -Ulcer Cleansing Rinsed/ Irrigated with Saline -Foul Odor after Cleansing No -Bioengineered Tissue No -Bleeding Controlled with Pressure -Treatment Response Procedure Tolerated Well -Offloading No -Debridement - Subq, 1st 20sq cm Yes Pain Scale: 0-10 Numeric Is Patient Pain Free? Yes - Nurse 3 - General Ulcer D/C NN Start: 09/09/22 11:23 Freq: Status: Active Protocol: Activity Type Activity Date Activity User E-sign Co-sign Detail Recorded Client Recorded Date Recorded By Document 09/09/22 12:06 MW [id number] 09/09/22 12:07 MW 09/09/22 12:06 Wound Care Center Nurse 3 #6- sacral cluster -Ulcer Cleansing Rinsed/ Irrigated with Saline -Foul Odor after Cleansing No -Negative Pressure Wound Therapy N/A -Primary Dressing Applied Aquacel Extra -Other Dressing bactroban -Other Covering abd pad -Aquacel Extra 1 Treatment Response Procedure Tolerated Well Pain Scale: 0-10 Numeric Is Patient Pain Free? Yes Teaching: Wound Center Dressing Your Wound -Person Taught Patient,Primary Caregiver -Teaching Method Discussion, Demonstration -Response to teaching Verbalize understanding WC - Visit Discharge Discharge Condition Stable Ambulatory Status Wheelchair Transportation Private Auto Accompanied by caregivers Medication Reconcilliation completed & No provided to patient/care provider Clinical Summary of Care Provided Yes Assessment/Plan Assessment/Plan (1) Pressure ulcer of sacral region, stage 3: CODE(S): L89.153 - Pressure ulcer of sacral region, stage 3 (2) Spina bifida: CODE(S): Q05.9 - Spina bifida, unspecified PLAN: Plan Debridement done as documented above, procedure was well-tolerated. Stable, no new concerns. ? Plan per patient is for surgery in October this has however not been finalized.. Continue Aquacel extra, cover with gauze and ABD and change daily to twice daily depending on drainage. Continue mupirocin ointment. Offloading very strongly recommended. Continue adequate protein intake, vitamin C and zinc. Their questions were answered and they were advised to call with any further questions or concerns. Follow-up in 1 week. This note was generated with [employer] dictation software. It may contain incorrect words, spelling, and punctuation that were not noted in checking the note before signing.
[2022-09-16 11:25] VITALS: BP 146/87; PULSE 101; RESP 18; TEMP 36.4
--- NOTE | 2022-09-16 13:21 | PN.PCM_ITS ---
History of Present Illness Date of Service: 09/16/22 Chief Complaint: Recurrent sacral pressure sore, Stage III. History of Wound: Ms. Crews is a 46-year-old woman with a history of spina bifida returns today with a 10 day history of breakdown and recurrence of a previous sacral pressure ulcer. She denies any known precipitating factor. Mother states that she noted it on the 07 of December. Has been applying dry dressing. No significant improvement. She typically a lot of moisture in the area and there has been. She otherwise feels well denies chills, fever nausea vomiting. Progress of Wound: Stable ulcer, no acute concerns at this time. Objective Data Objective Data Vital Signs: Vital Signs Temp Pulse Resp BP O2 Del Method 97.5 F L 101 H 18 146/87 H Room Air 09/16/22 11:25 09/16/22 11:25 09/16/22 11:25 09/16/22 11:25 09/16/22 11:25 Oxygen Delivery Method Room Air Charges/Coding Procedures Integumentary 111xxx-113xx: [id number] Sherlyn subq tissue 20 sq cm/< Physical Exam Const alert, oriented x3 and no apparent distress General Appearance: cooperative and well kempt HEENT normocephalic and hearing grossly normal bilaterally Head and Scalp: normal to inspection and atraumatic Neck full ROM and supple Resp normal respiratory effort Effort and Inspection: able to speak in complete sentences Skin Wounds: wounds noted Neuro oriented x3, CN's II-XII intact bilaterally and moves all extremities Psych mental status grossly normal, cooperative and affect normal Appearance: grossly normal Speech: normal speech Debridement Note Debridement Note Wound debrided: Sacral Type of Debridement: Excisional debridement Anesthesia Used: 5% Lidocaine Gel Depth: Down to and including healthy tissue and in the subcutaneous layer Percentage of wound debrided: 100 Instrument Used: 5mm curette Tissue Removed: Slough and devitalized tissue Severity: Fat Layer Exposed Amount of bleeding with debridement: Mild Bleeding Controlled with: Pressure Patient tolerated procedure: Patient tolerated procedure well Post-Debridement Measurements and Additional Note: Post-Debridement Measurements/Treatment JESSICA - Nurse 1 - General Ulcer Assessment Start: 09/09/22 11:23 Freq: Status: Active Protocol: TOBIN Activity Type Activity Date Activity User E-sign Co-sign Detail Recorded Client Recorded Date Recorded By Document 09/09/22 11:24 DL [id number] 09/09/22 11:31 DL Document 09/16/22 11:25 [facility] [id number] 09/16/22 11:33 [facility] 09/09/22 09/16/22 11:24 11:25 - Today's Visit Information Type of service Follow-up Visit Follow-up Visit (Physician/TITLE MANAGER (Physician/TITLE MANAGER ) ) Arrival Mode Wheelchair Wheelchair Transfer Assistance Manual Other Transfer Assist (Other) X2 2 Accompanied by 2 CAREGIVERS Patient Identification Verified (Name & Yes ) Patient Requires Transmission-Based No Precautions Vital Signs Temperature (97.8 F-99.1 F) 97.1 F L 97.5 F L Temperature Source Temporal Temporal Pulse Rate (60-100) 108 H 101 H Pulse Location Monitor Monitor Respiratory Rate (12-18) 20 H 18 Respiratory rate source Observation Observation Oxygen Delivery Method Room Air Blood Pressure (90/60-120/80) 112/75 146/87 H Blood Pressure Mean (mm Hg) 87 106 Source Monitor Monitor Position Sitting Blood Pressure Location Left Forearm History Since Last Visit- (Skip if this is Patient's initial visit) Have you changed medications since your No No last visit? Any new allergies or adverse reactions No No Had a fall/change in ADL's that may No No increase risk of falls Signs or symptoms of abuse and/or No No neglect since last visit Have you been in the hospital since your No No last visit? Has dressing in place as prescribed Yes Yes Has compression in place as prescribed N/A Has offloadiing in place as prescribed Yes N/A Experienced any changes in pain level or No No management Left Footwear Slipper Right Footwear Slipper Pain Scale: 0-10 Numeric Is Patient Pain Free? Yes Yes - Nurse 1 - General Ulcer Measurement Start: 09/09/22 11:23 Freq: Status: Active Protocol: Activity Type Activity Date Activity User E-sign Co-sign Detail Recorded Client Recorded Date Recorded By Document 09/09/22 11:24 DL [id number] 09/09/22 11:31 DL Document 09/16/22 11:25 [facility] [id number] 09/16/22 11:33 [facility] 09/09/22 09/16/22 11:24 11:25 Wound Center Nurse 1 #6- sacral cluster -Combined with other wound No -Current Size (cm) - Length 2.6 2.7 -Current Size (cm) - Width 2.1 1.9 -Current Size (cm) - Depth 1.1 1.4 -Total Square Cm 5.46 5.13 -Date of Last Picture (Recall this 09/16/22 field) -Photo Taken No Yes -Epithelialization None Present -Tunneling No -Undermining/Tunneling No -Undermining/Tunneling Starts (O'clock 1 ) -Undermining/Tunneling Ends (O'clock) 2 -Maximum Distance (cm) 1 -Circular Undermining No -Exudate Amt Medium -Exudate Type Serosanguineous Serosanguineous -Wound Margin Thickened & Thickened & Rolled Under Rolled Under -Granulation Amt None Present (0 None Present (0 %) %) -Slough/Fibrin Yes -Necrosis Amt Large (67-100%) Large (67-100%) -Necrotic Tissue Type Adherent Slough Adherent Slough -Structure Exposed N/A -Texture (Patience-wound Skin Appearance) Scarring Assessed, Scarring -Moisture (Patience-wound Skin Appearance) No Abnormality Assessed -Color (Patience-wound Skin Appearance) No Abnormality Assessed, Erythema -Temperature (Patience-wound Skin No Abnormality No Abnormality Appearance) (Pt Warm) (Pt Warm) -Tenderness on Palpation (Patience-wound No No Skin Appearance) -Ulcer Cleansing Rinsed/ Rinsed/ Irrigated with Irrigated with Saline Saline -Foul Odor after Cleansing No No -Anesthetic Used 5% Lidocaine 5% Lidocaine Gel Gel WC - Nurse 2 - General Ulcer CM Notes Start: 09/09/22 11:23 Freq: Status: Active Protocol: Activity Type Activity Date Activity User E-sign Co-sign Detail Recorded Client Recorded Date Recorded By Document 09/09/22 11:51 MW [id number] 09/09/22 11:54 MW Document 09/16/22 12:02 MW [id number] 09/16/22 12:03 MW 09/09/22 09/16/22 11:51 12:02 Wound Center Nurse 2 #6- sacral cluster -Time 11:51 12:02 -Correct Patient Yes Yes -Correct Side, Site, Position Yes Yes -Correct Procedure Yes Yes -Procedure Performed Yes Yes -Type of Procedure Debridement Debridement -Clinical Debridement Subcutaneous Subcutaneous -Tissue Removed Subcutaneous Subcutaneous -Post Debridement (cm) - Length 2.5 2.5 -Post Debridement (cm) - Width 2.5 2.1 -Post Debridement (cm) - Depth 1.0 1.0 -Total Square (Post) (cm) 6.25 5.25 -Area of Debridement (cm) - Length 2.5 2.5 -Area of Debridement (cm) - Width 2.5 2.1 -Total Square (Area) (cm) 6.25 5.25 -Tunneling No No -Undermining/Tunneling No No -Circular Undermining No No -Wound/Ulcer Outcome Not Healed Not Healed -Ulcer Cleansing Rinsed/ Rinsed/ Irrigated with Irrigated with Saline Saline -Foul Odor after Cleansing No No -Bioengineered Tissue No No -Bleeding Controlled with Pressure Pressure -Treatment Response Procedure Procedure Tolerated Well Tolerated Well -Offloading No No -Debridement - Subq, 1st 20sq cm Yes Yes Pain Scale: 0-10 Numeric Is Patient Pain Free? Yes Yes - Nurse 3 - General Ulcer D/C NN Start: 09/09/22 11:23 Freq: Status: Active Protocol: Activity Type Activity Date Activity User E-sign Co-sign Detail Recorded Client Recorded Date Recorded By Document 09/09/22 12:06 [id number] 09/09/22 12:07 MW Document 09/16/22 12:16 [facility] [id number] 09/16/22 12:17 [facility] 09/09/22 09/16/22 12:06 12:16 Wound Care Center Nurse 3 #6- sacral cluster -Ulcer Cleansing Rinsed/ Rinsed/ Irrigated with Irrigated with Saline Saline -Foul Odor after Cleansing No No -Negative Pressure Wound Therapy N/A -Primary Dressing Applied Aquacel Extra Aquacel Extra -Other Dressing bactroban BACTROBAN, DRSG PER DL DEGREASER OPERATOR -Primary Dressing Covered/Secured with Secured with Tape -Other Covering abd pad ABD -Aquacel Extra 1 1 Treatment Response Procedure Procedure Tolerated Well Tolerated Well Pain Scale: 0-10 Numeric Is Patient Pain Free? Yes Yes Teaching: Wound Center Dressing Your Wound -Person Taught Patient,Primary Caregiver -Teaching Method Discussion, Demonstration -Response to teaching Verbalize understanding WC - Visit Discharge Discharge Condition Stable Stable Ambulatory Status Wheelchair Wheelchair Transportation Private Auto HALF-WAY TRANSPORT Accompanied by caregivers Medication Reconcilliation completed & No provided to patient/care provider Clinical Summary of Care Provided Yes Other HALF-WAY Assessment/Plan Assessment/Plan (1) Pressure ulcer of sacral region, stage 3: CODE(S): L89.153 - Pressure ulcer of sacral region, stage 3 (2) Spina bifida: CODE(S): Q05.9 - Spina bifida, unspecified PLAN: Plan Debridement done as documented above, procedure was well-tolerated. Stable, no new concerns. Plan per patient is for surgery in October, this has however not been finalized.. Continue Aquacel extra, cover with gauze and ABD and change daily to twice daily depending on drainage. Continue mupirocin ointment. Offloading very strongly recommended. Continue adequate protein intake, vitamin C and zinc. Their questions were answered and they were advised to call with any further questions or concerns. Follow-up in 1 week. This note was generated with [employer] dictation software. It may contain incorrect words, spelling, and punctuation that were not noted in checking the note before signing.
[2022-09-23 11:14] VITALS: BP 108/78; PULSE 101; RESP 16; TEMP 36.4
--- NOTE | 2022-09-23 12:25 | PCM.WC.PN ---
History of Present Illness Date of Service: 09/23/22 Chief Complaint: Recurrent sacral pressure sore, Stage III. History of Wound: Ms. Crews is a 46-year-old woman with a history of spina bifida returns today with a 10 day history of breakdown and recurrence of a previous sacral pressure ulcer. She denies any known precipitating factor. Mother states that she noted it on the 07 of December. Has been applying dry dressing. No significant improvement. She typically a lot of moisture in the area and there has been. She otherwise feels well denies chills, fever nausea vomiting. Progress of Wound: Stable ulcer, no acute concerns at this time. Surgery is scheduled for the 05 of October. Objective Data Objective Data Vital Signs: Vital Signs Temp Pulse Resp BP O2 Del Method 97.5 F L 101 H 16 108/78 Room Air 09/23/22 11:14 09/23/22 11:14 09/23/22 11:14 09/23/22 11:14 09/23/22 11:14 Oxygen Delivery Method Room Air Charges/Coding Procedures Integumentary 111xxx-113xx: 44504 Sherlyn subq tissue 20 sq cm/< Physical Exam Const alert, oriented x3 and no apparent distress General Appearance: cooperative and well kempt HEENT normocephalic and hearing grossly normal bilaterally Head and Scalp: normal to inspection and atraumatic Neck full ROM and supple Resp normal respiratory effort Effort and Inspection: able to speak in complete sentences Skin Wounds: wounds noted Neuro oriented x3, CN's II-XII intact bilaterally and moves all extremities Psych mental status grossly normal, cooperative and affect normal Appearance: grossly normal Speech: normal speech Debridement Note Debridement Note Wound debrided: Sacral Type of Debridement: Excisional debridement Anesthesia Used: 5% Lidocaine Gel Depth: Down to and including healthy tissue and in the subcutaneous layer Percentage of wound debrided: 100 Instrument Used: 5mm curette Tissue Removed: Slough and devitalized tissue Severity: Fat Layer Exposed Amount of bleeding with debridement: Mild Bleeding Controlled with: Pressure Patient tolerated procedure: Patient tolerated procedure well Post-Debridement Measurements and Additional Note: Post-Debridement Measurements/Treatment JESSICA - Nurse 1 - General Ulcer Assessment Start: 09/09/22 11:23 Freq: Status: Active Protocol: TOBIN Activity Type Activity Date Activity User E-sign Co-sign Detail Recorded Client Recorded Date Recorded By Document 09/09/22 11:24 DL [id number] 09/09/22 11:31 DL Document 09/16/22 11:25 [facility] [id number] 09/16/22 11:33 BMF Document 09/23/22 11:14 [facility] [id number] 09/23/22 11:21 BMF 09/09/22 09/16/22 09/23/22 11:24 11:25 11:14 - Today's Visit Information Type of service Follow-up Visit Follow-up Visit Follow-up Visit (Physician/COMMUNICATIONS STRATEGIST (Physician/COMMUNICATIONS STRATEGIST (Physician/COMMUNICATIONS STRATEGIST ) ) ) Arrival Mode Wheelchair Wheelchair Wheelchair Transfer Assistance Manual Other Other Transfer Assist (Other) X2 2 caregivers transfer pt Accompanied by 2 CAREGIVERS 2 caregivers Patient Identification Verified (Name & Yes Yes ) Patient Requires Transmission-Based No No Precautions Vital Signs Temperature (97.8 F-99.1 F) 97.1 F L 97.5 F L 97.5 F L Temperature Source Temporal Temporal Temporal Pulse Rate (60-100) 108 H 101 H 101 H Pulse Location Monitor Monitor Monitor Respiratory Rate (12-18) 20 H 18 16 Respiratory rate source Observation Observation Observation Oxygen Delivery Method Room Air Room Air Blood Pressure (90/60-120/80) 112/75 146/87 H 108/78 Blood Pressure Mean (mm Hg) 87 106 88 Source Monitor Monitor Monitor Position Sitting Sitting Blood Pressure Location Left Forearm Left Forearm History Since Last Visit- (Skip if this is Patient's initial visit) Have you changed medications since your No No No last visit? Any new allergies or adverse reactions No No No Had a fall/change in ADL's that may No No No increase risk of falls Signs or symptoms of abuse and/or No No No neglect since last visit Have you been in the hospital since your No No No last visit? Has dressing in place as prescribed Yes Yes Yes Has compression in place as prescribed N/A N/A Has offloadiing in place as prescribed Yes N/A N/A Experienced any changes in pain level or No No No management Left Footwear Slipper Slipper Right Footwear Slipper Slipper Pain Scale: 0-10 Numeric Is Patient Pain Free? Yes Yes Yes - Nurse 1 - General Ulcer Measurement Start: 09/09/22 11:23 Freq: Status: Active Protocol: Activity Type Activity Date Activity User E-sign Co-sign Detail Recorded Client Recorded Date Recorded By Document 09/09/22 11:24 DL [id number] 09/09/22 11:31 DL Document 09/16/22 11:25 [facility] [id number] 09/16/22 11:33 BM Document 09/23/22 11:14 [facility] [id number] 09/23/22 11:21 BMF 09/09/22 09/16/22 09/23/22 11:24 11:25 11:14 Wound Center Nurse 1 #6- sacral cluster -Combined with other wound No No -Current Size (cm) - Length 2.6 2.7 2.2 -Current Size (cm) - Width 2.1 1.9 2.3 -Current Size (cm) - Depth 1.1 1.4 1.6 -Total Square Cm 5.46 5.13 5.06 -Date of Last Picture (Recall this 09/16/22 09/23/22 field) -Photo Taken No Yes Yes -Epithelialization None Present None Present -Tunneling No No -Undermining/Tunneling No No -Undermining/Tunneling Starts (O'clock 1 ) -Undermining/Tunneling Ends (O'clock) 2 -Maximum Distance (cm) 1 -Circular Undermining No No -Exudate Amt Medium Medium -Exudate Type Serosanguineous Serosanguineous Serous -Wound Margin Thickened & Thickened & Thickened & Rolled Under Rolled Under Rolled Under -Granulation Amt None Present (0 None Present (0 Small (1-33%) %) %) -Granulation Quality Red -Slough/Fibrin Yes Yes -Necrosis Amt Large (67-100%) Large (67-100%) Large (67-100%) -Necrotic Tissue Type Adherent Slough Adherent Slough Adherent Slough -Structure Exposed N/A -Texture (Patience-wound Skin Appearance) Scarring Assessed, Assessed, Scarring Scarring -Moisture (Patience-wound Skin Appearance) No Abnormality Assessed Assessed -Color (Patience-wound Skin Appearance) No Abnormality Assessed, Assessed Erythema -Temperature (Patience-wound Skin No Abnormality No Abnormality No Abnormality Appearance) (Pt Warm) (Pt Warm) (Pt Warm) -Tenderness on Palpation (Patience-wound No No No Skin Appearance) -Ulcer Cleansing Rinsed/ Rinsed/ Rinsed/ Irrigated with Irrigated with Irrigated with Saline Saline Saline -Foul Odor after Cleansing No No No -Anesthetic Used 5% Lidocaine 5% Lidocaine 5% Lidocaine Gel Gel Gel WC - Nurse 2 - General Ulcer CM Notes Start: 09/09/22 11:23 Freq: Status: Active Protocol: Activity Type Activity Date Activity User E-sign Co-sign Detail Recorded Client Recorded Date Recorded By Document 09/09/22 11:51 MW [id number] 09/09/22 11:54 MW Document 09/16/22 12:02 MW [id number] 09/16/22 12:03 MW Document 09/23/22 11:30 MW [id number] 09/23/22 11:34 MW 09/09/22 09/16/22 09/23/22 11:51 12:02 11:30 Wound Center Nurse 2 #6- sacral cluster -Time 11:51 12:02 11:30 -Correct Patient Yes Yes Yes -Correct Side, Site, Position Yes Yes Yes -Correct Procedure Yes Yes Yes -Procedure Performed Yes Yes Yes -Type of Procedure Debridement Debridement Debridement -Clinical Debridement Subcutaneous Subcutaneous Subcutaneous -Tissue Removed Subcutaneous Subcutaneous Subcutaneous -Post Debridement (cm) - Length 2.5 2.5 2.4 -Post Debridement (cm) - Width 2.5 2.1 2.5 -Post Debridement (cm) - Depth 1.0 1.0 1.2 -Total Square (Post) (cm) 6.25 5.25 6.00 -Area of Debridement (cm) - Length 2.5 2.5 2.4 -Area of Debridement (cm) - Width 2.5 2.1 2.5 -Total Square (Area) (cm) 6.25 5.25 6.00 -Tunneling No No No -Undermining/Tunneling No No No -Circular Undermining No No No -Wound/Ulcer Outcome Not Healed Not Healed Not Healed -Ulcer Cleansing Rinsed/ Rinsed/ Rinsed/ Irrigated with Irrigated with Irrigated with Saline Saline Saline -Foul Odor after Cleansing No No No -Bioengineered Tissue No No No -Bleeding Controlled with Pressure Pressure Pressure -Treatment Response Procedure Procedure Procedure Tolerated Well Tolerated Well Tolerated Well -Offloading No No No -Debridement - Subq, 1st 20sq cm Yes Yes Yes Pain Scale: 0-10 Numeric Is Patient Pain Free? Yes Yes Yes - Nurse 3 - General Ulcer D/C NN Start: 09/09/22 11:23 Freq: Status: Active Protocol: Activity Type Activity Date Activity User E-sign Co-sign Detail Recorded Client Recorded Date Recorded By Document 09/09/22 12:06 MW [id number] 09/09/22 12:07 MW Document 09/16/22 12:16 [facility] [id number] 09/16/22 12:17 BM Document 09/23/22 11:48 [facility] [id number] 09/23/22 11:48 [facility] 09/09/22 09/16/22 09/23/22 12:06 12:16 11:48 Wound Care Center Nurse 3 #6- sacral cluster -Ulcer Cleansing Rinsed/ Rinsed/ Rinsed/ Irrigated with Irrigated with Irrigated with Saline Saline Saline -Foul Odor after Cleansing No No No -Negative Pressure Wound Therapy N/A -Primary Dressing Applied Aquacel Extra Aquacel Extra Aquacel Extra -Other Dressing bactroban BACTROBAN, DRSG bactroban PER DL FOURCHETTE SEWER -Primary Dressing Covered/Secured with Secured with Secured with Tape Tape -Other Covering abd pad ABD abd; drsg per dl 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 Yes Yes Yes Teaching: Wound Center Dressing Your Wound -Person Taught Patient,Primary Caregiver -Teaching Method Discussion, Demonstration -Response to teaching Verbalize understanding WC - Visit Discharge Discharge Condition Stable Stable Stable Ambulatory Status Wheelchair Wheelchair Wheelchair Transportation Private Auto ALF Private Auto TRANSPORT Accompanied by caregivers 2 caregivers from retirement Medication Reconcilliation completed & No provided to patient/care provider Clinical Summary of Care Provided Yes Facility Type Home Health Other ALF Assessment/Plan Assessment/Plan (1) Pressure ulcer of sacral region, stage 3: CODE(S): L89.153 - Pressure ulcer of sacral region, stage 3 (2) Spina bifida: CODE(S): Q05.9 - Spina bifida, unspecified PLAN: Plan Debridement done as documented above, procedure was well-tolerated. Stable, no new concerns. Plan is for surgery on the 05 of October. Continue Aquacel extra, cover with gauze and ABD and change daily to twice daily depending on drainage. Continue mupirocin ointment. Offloading very strongly recommended. Continue adequate protein intake, vitamin C and zinc. Their questions were answered and they were advised to call with any further questions or concerns. Since plan is for surgery in 2 weeks, patient was discharged from the wound center. She was advised to call if she has any questions or concerns. Patient and caregivers voiced understanding. This note was generated with [employer]ov[employer] dictation software. It may contain incorrect words, spelling, and punctuation that were not noted in checking the note before signing.
== END 2022-10-03 23:59 | disposition home or self-care (01) ==
LOC: WC 11:15
PROVIDERS: PCP Nurse Practitioner Family; Visit Provider Internal Medicine
DX: L89.153 Pressure ulcer of sacral region, stage 3 (principal); Q05.9 Spina bifida, unspecified
CPT/HCPCS: 11042

== ENCOUNTER → 2023-03-05 | Outpatient (CLI) | payer MEDICARE, MEDICAID, SELFPAY ==
--- NOTE | 2023-03-05 10:32 | US_ITS ---
STUDY: RENAL ULTRASOUND - COMPLETE REASON FOR EXAM: Female, 47 years old. HX OF URINARY CALC TECHNIQUE: Ultrasound evaluation of the kidneys was performed with real-time and static hinojosa-scale imaging. COMPARISON: None. FINDINGS: RIGHT KIDNEY: Normal location of the right kidney, which is normal in size. The right kidney measures 8.8 cm. There is a normal cortex of the right kidney. The renal cortex measures 1.2 cm. There is no right renal mass or cyst. There are no right renal calculi. There is no right hydronephrosis. DISTAL RIGHT URETER: There is non-visualization of the distal right ureter. There is no demonstrated right ureterovesical junction calculus. There is a visualized right ureteral jet. LEFT KIDNEY: Normal location of the left kidney, which is normal in size. The left kidney measures 10.0 cm. There is a normal cortex of the left kidney. The renal cortex measures 1.5 cm. There is no left renal mass or cyst. There are no left renal calculi. There is no left hydronephrosis. DISTAL LEFT URETER: There is non-visualization of the distal left ureter. There is no demonstrated left ureterovesical junction calculus. There is a visualized left ureteral jet. BLADDER: The distended urinary bladder has a volume of 113 ml. The empty urinary bladder has a volume of ml. There is a normal wall thickness of the distended urinary bladder. There is no demonstrated mass within the urinary bladder. There are no demonstrated bladder calculi. US/Kidney and Bladder IMPRESSION: Normal ultrasound of the kidneys and urinary bladder. Electronically Signed: Kartik Olivera MD at 22:42 EDT ,
== END | disposition home or self-care (01) ==
LOC: US 10:30
PROVIDERS: PCP Nurse Practitioner Family; Referring Provider Urology; Visit Provider Urology
DX: Q05.9 Spina bifida, unspecified (principal); Z87.442 Personal history of urinary calculi
CPT/HCPCS: 76770

== ENCOUNTER 2024-11-29 10:30 | Outpatient (RCR) | payer MEDICARE, MEDICAID, SELFPAY ==
[2024-11-22 10:48] VITALS: BP 139/103; PULSE 87; RESP 18; TEMP 36.9
[2024-11-29 10:50] VITALS: BP 118/83; PULSE 100; RESP 18; TEMP 36.8
== END 2024-12-03 23:59 | disposition home or self-care (01) ==
LOC: WC 10:30
PROVIDERS: PCP Nurse Practitioner Family; Visit Provider Internal Medicine
DX: L89.153 Pressure ulcer of sacral region, stage 3 (principal); L89.313 Pressure ulcer of right buttock, stage 3; L89.323 Pressure ulcer of left buttock, stage 3; G82.20 Paraplegia, unspecified; Q05.9 Spina bifida, unspecified; L22 Diaper dermatitis; K21.9 Gastro-esophageal reflux disease without esophagitis; Z79.51 Long term (current) use of inhaled steroids; Z79.82 Long term (current) use of aspirin; Z79.899 Other long term (current) drug therapy
CPT/HCPCS: 11042; 11045; 87070; 87075; 87077; 87186; 87205; 99204; G0463

== ENCOUNTER 2024-12-13 10:45 | Outpatient (RCR) | payer MEDICARE, MEDICAID, SELFPAY ==
[2024-12-06 11:29] VITALS: BP 107/62; PULSE 112; RESP 18; TEMP 36.4
--- NOTE | 2024-12-06 13:40 | PN.PCM_ITS ---
History of Present Illness Date of Service: 12/06/24 Chief Complaint: Recurrent decubitus buttock and sacral ulcers History of Wound: A courtesy visit is provided today on behalf of the patient's regular Wound Center physician, Dr. Kinney. The patient's medical history is as follows: Juliette is a 49-year-old well-known to the wound center who presented due to decubitus ulcers. She has a history of spinal bifida and paraplegia. She currently resides in a long term. Her family noted bleeding on her underwear during routine care and subsequently examined her buttock area where they noted some blisters and open areas. Since then, they had been applying Vaseline to the area and subsequently presented here. She has been relatively stable. No history of diabetes mellitus or tobacco use. She has been having more daily bowel movements however no significant watery bowel movements or concern for fecal contamination. She feels well otherwise. Progress of Wound: No acute concerns reported at this time. Has made significant progress since her last visit. Tolerating antibiotics well so far. Objective Data Objective Data Vital Signs: Vital Signs Temp Pulse Resp BP 97.5 F L 112 H 18 107/62 12/06/24 11:29 12/06/24 11:29 12/06/24 11:29 12/06/24 11:29 Charges/Coding Procedures Integumentary 111xxx-113xx: 23334 Sherlyn subq tissue 20 sq cm/< Physical Exam Const alert, oriented x3 and no apparent distress General Appearance: cooperative and well kempt HEENT normocephalic and hearing grossly normal bilaterally Head and Scalp: normal to inspection and atraumatic Neck full ROM and supple Resp normal respiratory effort and normal air movement Effort and Inspection: able to speak in complete sentences Skin Wounds: wounds noted size Size: See clinical note, bed with slough, no odor, o pen and surrounding erythema Neuro oriented x3 and CN's II-XII intact bilaterally Psych mental status grossly normal, cooperative and affect normal Appearance: grossly normal Attitude: calm Speech: normal speech Debridement Note Debridement Note Wound debrided: Left buttock cluster Wound Grade/Stage: Stage III Type of Debridement: Excisional debridement Anesthesia Used: 5% Lidocaine Gel Depth: Down to and including healthy tissue and in the subcutaneous layer Percentage of wound debrided: 100 Instrument Used: 5mm curette Tissue Removed: Slough and devitalized tissue Severity: Fat Layer Exposed Amount of bleeding with debridement: Mild Bleeding Controlled with: Pressure Patient tolerated procedure: Patient tolerated procedure well Post-Debridement Measurements and Additional Note: Post-Debridement Measurements/Treatment - Nurse 1 - General Ulcer Assessment Start: 12/06/24 11:29 Freq: Status: Active Protocol: TOBIN Activity Type Activity Date Activity User E-sign Co-sign Detail Recorded Client Recorded Date Recorded By Document 12/06/24 11:29 ALFREDO [id number] 12/06/24 11:33 12/06/24 11:29 - Today's Visit Information Type of service Follow-up Visit (Physician/ENTRY LEVEL SALES CONSULTANT ) Arrival Mode Ambulatory Transfer Assistance Manual Transfer Assist (Other) three assist Patient Identification Verified (Name & Yes ) Patient Requires Transmission-Based No Precautions Safety Precautions NA Vital Signs Temperature (97.8 F-99.1 F) 97.5 F L Temperature Source Temporal Pulse Rate (60-100) 112 H Pulse Location Monitor Respiratory Rate (12-18) 18 Respiratory rate source Observation Blood Pressure (90/60-120/80) 107/62 Blood Pressure Mean (mm Hg) 77 Source Monitor Position Semi-Fowlers Blood Pressure Location Left Arm History Since Last Visit- (Skip if this is Patient's initial visit) Have you changed medications since your No last visit? Any new allergies or adverse reactions No Had a fall/change in ADL's that may No increase risk of falls Signs or symptoms of abuse and/or No neglect since last visit Have you been in the hospital since your No last visit? Has dressing in place as prescribed Yes Has compression in place as prescribed N/A Has offloadiing in place as prescribed N/A Experienced any changes in pain level or No management Pain Scale: 0-10 Numeric Is Patient Pain Free? Yes [facility] Nurse 1 - General Ulcer Measurement Start: 12/06/24 11:29 Freq: Status: Active Protocol: Activity Type Activity Date Activity User E-sign Co-sign Detail Recorded Client Recorded Date Recorded By Document 12/06/24 11:29 [email or web address] [id number] 12/06/24 11:33 RB 12/06/24 11:29 Wound Center Nurse 1 #8 Right ishium cluster -Combined with other wound No -Current Size (cm) - Length 0.1 -Current Size (cm) - Width 0.1 -Current Size (cm) - Depth 0.1 -Total Square Cm 0.01 -Photo Taken Yes -Tunneling No -Undermining/Tunneling No -Circular Undermining No -Exudate Amt Medium -Exudate Type Serosanguineous -Wound Margin Distinct, Outline Attached -Granulation Amt Medium (34-66%) -Granulation Quality [place] -Slough/Fibrin Yes -Necrosis Amt Medium (34-66%) -Necrotic Tissue Type Adherent Slough -Structure Exposed N/A -Texture (Patience-wound Skin Appearance) Scarring -Moisture (Patience-wound Skin Appearance) Assessed -Color (Patience-wound Skin Appearance) Assessed -Temperature (Patience-wound Skin No Abnormality Appearance) (Pt Warm) -Tenderness on Palpation (Patience-wound No Skin Appearance) -Ulcer Cleansing Wound Cleanser -Foul Odor after Cleansing No #7 L Ishium cluster -Combined with other wound No -Current Size (cm) - Length 4.2 -Current Size (cm) - Width 1 -Current Size (cm) - Depth 0.1 -Total Square Cm 4.2 -Photo Taken Yes -Tunneling No -Undermining/Tunneling No -Circular Undermining No -Exudate Amt Medium -Exudate Type Serosanguineous -Wound Margin Distinct, Outline Attached -Granulation Amt Medium (34-66%) -Granulation Quality [place] -Slough/Fibrin Yes -Necrosis Amt Medium (34-66%) -Necrotic Tissue Type Adherent Slough -Structure Exposed N/A -Texture (Patience-wound Skin Appearance) Assessed, Scarring -Moisture (Patience-wound Skin Appearance) Assessed -Color (Patience-wound Skin Appearance) Assessed -Temperature (Patience-wound Skin No Abnormality Appearance) (Pt Warm) -Tenderness on Palpation (Patience-wound No Skin Appearance) -Ulcer Cleansing Wound Cleanser -Foul Odor after Cleansing No -Anesthetic Used 5% Lidocaine Gel #6- sacrum -Combined with other wound No -Current Size (cm) - Length 0.1 -Current Size (cm) - Width 0.1 -Current Size (cm) - Depth 0.1 -Total Square Cm 0.01 -Photo Taken Yes -Tunneling No -Undermining/Tunneling No -Circular Undermining No -Exudate Amt Medium -Exudate Type Serosanguineous -Wound Margin Distinct, Outline Attached -Granulation Amt Medium (34-66%) -Granulation Quality [place] -Slough/Fibrin Yes -Necrosis Amt Medium (34-66%) -Necrotic Tissue Type Adherent Slough -Structure Exposed N/A -Texture (Patience-wound Skin Appearance) Assessed -Moisture (Patience-wound Skin Appearance) Assessed -Color (Patience-wound Skin Appearance) Assessed -Temperature (Patience-wound Skin No Abnormality Appearance) (Pt Warm) -Tenderness on Palpation (Patience-wound No Skin Appearance) -Ulcer Cleansing Wound Cleanser -Foul Odor after Cleansing No -Anesthetic Used 5% Lidocaine Gel WC - Nurse 2 - General Ulcer CM Notes Start: 12/06/24 11:29 Freq: Status: Active Protocol: Activity Type Activity Date Activity User E-sign Co-sign Detail Recorded Client Recorded Date Recorded By Document 12/06/24 11:40 [id number] 12/06/24 11:44 12/06/24 11:40 Wound Center Nurse 2 #8 Right ishium cluster -Time 11:43 -Correct Patient Yes -Correct Side, Site, Position Yes -Correct Procedure No -Procedure Performed No -Wound/Ulcer Outcome Healed- Epithelialized -Foul Odor after Cleansing No -Bioengineered Tissue No -Bleeding Controlled with NA #7 L Ishium cluster -Time 11:44 -Correct Patient Yes -Correct Side, Site, Position Yes -Correct Procedure Yes -Procedure Performed Yes -Type of Procedure Debridement -Clinical Debridement Subcutaneous -Tissue Removed Subcutaneous -Post Debridement (cm) - Length 3.7 -Post Debridement (cm) - Width 0.7 -Post Debridement (cm) - Depth 0.1 -Total Square (Post) (cm) 2.59 -Area of Debridement (cm) - Length 3.7 -Area of Debridement (cm) - Width 0.7 -Total Square (Area) (cm) 2.59 -Tunneling No -Undermining/Tunneling No -Circular Undermining No -Wound/Ulcer Outcome Not Healed -Ulcer Cleansing Rinsed/ Irrigated with Saline -Foul Odor after Cleansing No -Bioengineered Tissue No -Bleeding Controlled with Pressure -Treatment Response Procedure Tolerated Well -Offloading No -Debridement - Subq, 1st 20sq cm Yes #6- sacrum -Time 11:40 -Correct Patient Yes -Correct Side, Site, Position Yes -Correct Procedure No -Procedure Performed No -Wound/Ulcer Outcome Healed- Epithelialized -Foul Odor after Cleansing No -Bioengineered Tissue No -Bleeding Controlled with NA Pain Scale: 0-10 Numeric Is Patient Pain Free? Yes - Nurse 3 - General Ulcer D/C NN Start: 12/06/24 11:29 Freq: Status: Active Protocol: Activity Type Activity Date Activity User E-sign Co-sign Detail Recorded Client Recorded Date Recorded By Document 12/06/24 12:00 WA [id number] 12/06/24 12:02 WA 12/06/24 12:00 Wound Care Center Nurse 3 #8 Right ishium cluster -Foul Odor after Cleansing No -Negative Pressure Wound Therapy N/A -Primary Dressing Applied Fibracol Plus 4x4,Silicone Border Foam 4x4 -Fibracol Plus 4x4 1 -Silicone Border Foam 4x4 1 Pain Scale: 0-10 Numeric Is Patient Pain Free? Yes WC - Visit Discharge Discharge Condition Stable Ambulatory Status Ambulatory Transportation Private Auto Medication Reconcilliation completed & No provided to patient/care provider Clinical Summary of Care Provided Yes Assessment/Plan Assessment/Plan (1) Pressure ulcer of sacral region, stage 3: CODE(S): L89.153 - Pressure ulcer of sacral region, stage 3 (2) Decubitus ulcer of left buttock, stage 3: CODE(S): L89.323 - Pressure ulcer of left buttock, stage 3 (3) Decubitus ulcer of right buttock, stage 3: CODE(S): L89.313 - Pressure ulcer of right buttock, stage 3 (4) Spina bifida: CODE(S): Q05.9 - Spina bifida, unspecified PLAN: Plan Debridement done as documented above, procedure was well-tolerated. Has done remarkably well since her last visit. Sacral and right buttock ulcers have essentially healed. Left also with significant improvement. Has an appointment with urology on the due to concern for malfunctioning suprapubic catheter. Continue lightly moistened Fibracol and cover with foam dressing. Continue zinc oxide/diaper rash cream for skin protection. Change daily or when soiled. Appetite is said to be good, continue optimal protein intake. Continue use of offloading devices/mattress. 6 weeks off workshop/work given to help with monitoring area properly, changing once soiled and repositioning. Their questions were answered and they were advised to let us know if they had any further questions or concerns. Follow-up in a week or sooner if needed. This note was generated with [employer] software. It may contain incorrect words, spelling, and punctuation that were not noted in checking the note before signing.
--- NOTE | 2024-12-10 09:04 | WC ---
PHOTO 12/06/24
--- NOTE | 2024-12-10 09:08 | WC ---
PHOTO 12/06/24 RIGHT ISCHIUM
--- NOTE | 2024-12-10 09:12 | WC ---
PHOTO 12/06/24 LEFT ISCHIUM
[2024-12-13 11:11] VITALS: BP 131/95; PULSE 96; RESP 18; TEMP 36.2
--- NOTE | 2024-12-13 12:20 | PN.PCM_ITS ---
History of Present Illness Date of Service: 12/13/24 Chief Complaint: Recurrent decubitus buttock and sacral ulcers History of Wound: A courtesy visit is provided today on behalf of the patient's regular Wound Center physician, Dr. Kinney. The patient's medical history is as follows: Juliette is a 49-year-old well-known to the wound center who presented due to decubitus ulcers. She has a history of spinal bifida and paraplegia. She currently resides in a assisted. Her family noted bleeding on her underwear during routine care and subsequently examined her buttock area where they noted some blisters and open areas. Since then, they had been applying Vaseline to the area and subsequently presented here. She has been relatively stable. No history of diabetes mellitus or tobacco use. She has been having more daily bowel movements however no significant watery bowel movements or concern for fecal contamination. She feels well otherwise. Progress of Wound: No new concerns at this time. Healed. Objective Data Objective Data Vital Signs: Vital Signs Temp Pulse Resp BP O2 Del Method 97.1 F L 96 18 131/95 H Room Air 12/13/24 11:11 12/13/24 11:11 12/13/24 11:11 12/13/24 11:11 12/13/24 11:11 Oxygen Delivery Method Room Air Charges/Coding Visit Charges Office Visits / Consults: [id number] OV L3 Est 20min Physical Exam Const alert, oriented x3 and no apparent distress General Appearance: cooperative and well kempt HEENT normocephalic and hearing grossly normal bilaterally Head and Scalp: normal to inspection and atraumatic Neck full ROM and supple Resp normal respiratory effort and normal air movement Effort and Inspection: able to speak in complete sentences Neuro oriented x3 and CN's II-XII intact bilaterally Psych mental status grossly normal, cooperative and affect normal Appearance: grossly normal Attitude: calm Speech: normal speech Debridement Note Debridement Note Post-Debridement Measurements and Additional Note: Post-Debridement Measurements/Treatment WC - Nurse 1 - General Ulcer Assessment Start: 12/06/24 11:29 Freq: Status: Active Protocol: [email or web address] Activity Type Activity Date Activity User E-sign Co-sign Detail Recorded Client Recorded Date Recorded By Document 12/06/24 11:29 RB [id number] 12/06/24 11:33 RB Document 12/13/24 11:11 [id number] 12/13/24 11:25 12/06/24 12/13/24 11:29 11:11 - Today's Visit Information Type of service Follow-up Visit Follow-up Visit (Physician/AUTO PAINTER HELPER (Physician/AUTO PAINTER HELPER ) ) Arrival Mode Ambulatory Wheelchair Transfer Assistance Manual Transfer Assist (Other) three assist Patient Identification Verified (Name & Yes Yes ) Patient Requires Transmission-Based No Precautions Safety Precautions NA Vital Signs Temperature (97.8 F-99.1 F) 97.5 F L 97.1 F L Temperature Source Temporal Temporal Pulse Rate (60-100) 112 H 96 Pulse Location Monitor Monitor Respiratory Rate (12-18) 18 18 Respiratory rate source Observation Observation Oxygen Delivery Method Room Air Blood Pressure (90/60-120/80) 107/62 131/95 H Blood Pressure Mean (mm Hg) 77 107 Source Monitor Monitor Position Semi-Fowlers Sitting Blood Pressure Location Left Arm Left Arm History Since Last Visit- (Skip if this is Patient's initial visit) Have you changed medications since your No No last visit? Any new allergies or adverse reactions No No Had a fall/change in ADL's that may No No increase risk of falls Signs or symptoms of abuse and/or No No neglect since last visit Have you been in the hospital since your No No last visit? Has dressing in place as prescribed Yes Yes Has compression in place as prescribed N/A Yes Has offloadiing in place as prescribed N/A N/A Experienced any changes in pain level or No No management Left Footwear No Footwear Right Footwear No Footwear Pain Scale: 0-10 Numeric Is Patient Pain Free? Yes Yes - Nurse 1 - General Ulcer Measurement Start: 12/06/24 11:29 Freq: Status: Active Protocol: Activity Type Activity Date Activity User E-sign Co-sign Detail Recorded Client Recorded Date Recorded By Document 12/06/24 11:29 RB [id number] 12/06/24 11:33 RB Document 12/13/24 11:11 [id number] [id number] 12/13/24 11:25 12/06/24 12/13/24 11:29 11:11 Wound Center Nurse 1 #6- sacrum -Combined with other wound No -Current Size (cm) - Length 0.1 0.1 -Current Size (cm) - Width 0.1 0.1 -Current Size (cm) - Depth 0.1 0 -Total Square Cm 0.01 0.01 -Photo Taken Yes -Epithelialization Large 67-100% -Tunneling No -Undermining/Tunneling No -Circular Undermining No -Exudate Amt Medium None Present -Exudate Type Serosanguineous -Wound Margin Distinct, Outline Attached -Granulation Amt Medium (34-66%) -Granulation Quality [place] -Slough/Fibrin Yes -Necrosis Amt Medium (34-66%) -Necrotic Tissue Type Adherent Slough -Structure Exposed N/A -Texture (Patience-wound Skin Appearance) Assessed Assessed -Moisture (Patience-wound Skin Appearance) Assessed Assessed -Color (Patience-wound Skin Appearance) Assessed Assessed -Temperature (Patience-wound Skin No Abnormality No Abnormality Appearance) (Pt Warm) (Pt Warm) -Tenderness on Palpation (Patience-wound No No Skin Appearance) -Ulcer Cleansing Wound Cleanser Soap and Water -Foul Odor after Cleansing No No -Anesthetic Used 5% Lidocaine Gel -Wound Comment(s) poss. healed #8 Right ishium cluster -Combined with other wound No -Current Size (cm) - Length 0.1 0.1 -Current Size (cm) - Width 0.1 0.1 -Current Size (cm) - Depth 0.1 0 -Total Square Cm 0.01 0.01 -Date of Last Picture (Recall this 12/13/24 field) -Photo Taken Yes -Epithelialization Large 67-100% -Tunneling No -Undermining/Tunneling No -Circular Undermining No -Exudate Amt Medium None Present -Exudate Type Serosanguineous -Wound Margin Distinct, Outline Attached -Granulation Amt Medium (34-66%) -Granulation Quality [place] -Slough/Fibrin Yes -Necrosis Amt Medium (34-66%) -Necrotic Tissue Type Adherent Slough -Structure Exposed N/A -Texture (Patience-wound Skin Appearance) Scarring Assessed -Moisture (Patience-wound Skin Appearance) Assessed Assessed -Color (Patience-wound Skin Appearance) Assessed Assessed -Temperature (Patience-wound Skin No Abnormality No Abnormality Appearance) (Pt Warm) (Pt Warm) -Tenderness on Palpation (Patience-wound No No Skin Appearance) -Ulcer Cleansing Wound Cleanser Soap and Water -Foul Odor after Cleansing No No -Wound Comment(s) poss. healed #7 L Ishium cluster -Combined with other wound No -Current Size (cm) - Length 4.2 0.1 -Current Size (cm) - Width 1 0.1 -Current Size (cm) - Depth 0.1 0 -Total Square Cm 4.2 0.01 -Date of Last Picture (Recall this 12/13/24 field) -Photo Taken Yes -Epithelialization Large 67-100% -Tunneling No -Undermining/Tunneling No -Circular Undermining No -Exudate Amt Medium -Exudate Type Serosanguineous -Wound Margin Distinct, Outline Attached -Granulation Amt Medium (34-66%) -Granulation Quality [place] -Slough/Fibrin Yes -Necrosis Amt Medium (34-66%) -Necrotic Tissue Type Adherent Slough -Structure Exposed N/A -Texture (Patience-wound Skin Appearance) Assessed, Assessed Scarring -Moisture (Patience-wound Skin Appearance) Assessed Assessed -Color (Patience-wound Skin Appearance) Assessed Assessed -Temperature (Patience-wound Skin No Abnormality No Abnormality Appearance) (Pt Warm) (Pt Warm) -Tenderness on Palpation (Patience-wound No No Skin Appearance) -Ulcer Cleansing Wound Cleanser Soap and Water -Foul Odor after Cleansing No No -Anesthetic Used 5% Lidocaine Gel -Wound Comment(s) poss. healed WC - Nurse 2 - General Ulcer CM Notes Start: 12/06/24 11:29 Freq: Status: Active Protocol: Activity Type Activity Date Activity User E-sign Co-sign Detail Recorded Client Recorded Date Recorded By Document 12/06/24 11:40 [id number] 12/06/24 11:44 Document 12/13/24 11:32 [id number] 12/13/24 11:35 12/06/24 12/13/24 11:40 11:32 Wound Center Nurse 2 #6- sacrum -Time 11:40 -Correct Patient Yes -Correct Side, Site, Position Yes -Correct Procedure No -Procedure Performed No -Wound/Ulcer Outcome Healed- Epithelialized -Foul Odor after Cleansing No -Bioengineered Tissue No -Bleeding Controlled with NA #8 Right ishium cluster -Time 11:43 11:33 -Correct Patient Yes Yes -Correct Side, Site, Position Yes Yes -Correct Procedure No No -Procedure Performed No No -Tunneling No -Undermining/Tunneling No -Circular Undermining No -Wound/Ulcer Outcome Healed- Healed- Epithelialized Epithelialized -Foul Odor after Cleansing No -Bioengineered Tissue No -Bleeding Controlled with NA NA #7 L Alfredo cluster -Time 11:44 11:33 -Correct Patient Yes Yes -Correct Side, Site, Position Yes Yes -Correct Procedure Yes No -Procedure Performed Yes No -Type of Procedure Debridement -Clinical Debridement Subcutaneous -Tissue Removed Subcutaneous -Post Debridement (cm) - Length 3.7 -Post Debridement (cm) - Width 0.7 -Post Debridement (cm) - Depth 0.1 -Total Square (Post) (cm) 2.59 -Area of Debridement (cm) - Length 3.7 -Area of Debridement (cm) - Width 0.7 -Total Square (Area) (cm) 2.59 -Tunneling No -Undermining/Tunneling No -Circular Undermining No -Wound/Ulcer Outcome Not Healed Healed- Epithelialized -Ulcer Cleansing Rinsed/ Not Cleansed Irrigated with Saline -Foul Odor after Cleansing No No -Bioengineered Tissue No No -Bleeding Controlled with Pressure NA -Treatment Response Procedure Tolerated Well -Offloading No No -Debridement - Subq, 1st 20sq cm Yes Pain Scale: 0-10 Numeric Is Patient Pain Free? Yes Yes - Nurse 3 - General Ulcer D/C NN Start: 12/06/24 11:29 Freq: Status: Active Protocol: Activity Type Activity Date Activity User E-sign Co-sign Detail Recorded Client Recorded Date Recorded By Document 12/06/24 12:00 TN [id number] 12/06/24 12:02 TN 12/06/24 12:00 Wound Care Center Nurse 3 #8 Right alfredo cluster -Foul Odor after Cleansing No -Negative Pressure Wound Therapy N/A -Primary Dressing Applied Fibracol Plus 4x4,Silicone Border Foam 4x4 -Fibracol Plus 4x4 1 -Silicone Border Foam 4x4 1 Pain Scale: 0-10 Numeric Is Patient Pain Free? Yes - Visit Discharge Discharge Condition Stable Ambulatory Status Ambulatory Transportation Private Auto Medication Reconcilliation completed & No provided to patient/care provider Clinical Summary of Care Provided Yes Assessment/Plan Assessment/Plan (1) Pressure ulcer of sacral region, stage 3: CODE(S): L89.153 - Pressure ulcer of sacral region, stage 3 (2) Decubitus ulcer of left buttock, stage 3: CODE(S): L89.323 - Pressure ulcer of left buttock, stage 3 (3) Decubitus ulcer of right buttock, stage 3: CODE(S): L89.313 - Pressure ulcer of right buttock, stage 3 (4) Spina bifida: CODE(S): Q05.9 - Spina bifida, unspecified PLAN: Plan Healed. No debridement completed today. Lengthy discussion had with mother and caregiver. Zinc oxide cream to buttock area indefinitely. Cover prior areas of ulceration with foam dressing for 2 weeks and then stop. May return to workshop after 2 weeks. Continue offloading. Continue optimized protein/dietary intake. Their questions were answered, they were advised to let us know if they had any further questions or concerns. Discharge from the wound center. This note was generated with [employer] dictation software. It may contain incorrect words, spelling, and punctuation that were not noted in checking the note before signing.
== END 2024-12-13 15:24 | disposition home or self-care (01) ==
LOC: WC 10:45
PROVIDERS: PCP Nurse Practitioner Family; Visit Provider Internal Medicine
DX: L89.153 Pressure ulcer of sacral region, stage 3 (principal); L89.313 Pressure ulcer of right buttock, stage 3; L89.323 Pressure ulcer of left buttock, stage 3; G82.20 Paraplegia, unspecified; Q05.9 Spina bifida, unspecified
CPT/HCPCS: 11042; 99213; G0463

== ENCOUNTER 2025-01-03 08:08 | Outpatient (RCR) | payer MEDICARE, MEDICAID, SELFPAY ==
[2025-01-03 08:22] VITALS: BP 117/76; PULSE 106; RESP 18; TEMP 36.2
--- NOTE | 2025-01-03 09:25 | PCM.WC.HP ---
History of Present Illness Date of Service: 01/03/25 Chief Complaint: Sacral/Coccyx Ulcer History of Wound: Ms. Crews is a 49-year-old well-known to me. Recently discharged following healing of decubitus ulcers however, presents with a new sacral area ulcer. Said to have opened on Tuesday. 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 Had been off due to previous decubitus ulcers. Tuesday, new area of opening was noted. No chills, fever or feeling of unwell. Appetite is good. [facility] Medical History Decubitus ulcer of right buttock, stage 3 Decubitus ulcer of left buttock, stage 3 UTI (urinary tract infection) GI problem Kidney stone Seasonal allergies Wears glasses Depression Uses wheelchair History of urinary self-catheterization Back pain Constipation Gastric reflux Non-smoker BiPAP (biphasic positive airway pressure) dependence Asthma History of edema History of echocardiogram Hx of back injury Acquired scoliosis Spina bifida Home Medications ?Medication ?Instructions ?Recorded ?Last Taken ?Type multivitamin with folic acid 400 1 tab PO QHS general health 04/24/13 09/25/20 17:30 History mcg tablet (Thera) omeprazole 20 mg capsule,delayed 20 mg PO QHS acid reflux 03/11/18 09/25/20 17:30 History release aspirin 81 mg chewable tablet 81 mg PO DAILY@0800 03/14/18 11/02/21 Rx potassium citrate 15 mEq (1,620 15 meq PO BID ##60 03/23/19 09/25/20 17:30 Rx mg) tablet,extended release Bacillus coagulans 10 billion cell 1 each PO QHS [facility] 09/11/20 09/25/20 17:30 History capsule,delayed release polyethylene glycol 3350 17 gram 17 gm PO DAILY PRN PRN Constipation 09/14/20 09/25/20 17:30 History oral powder packet budesonide 0.25 mg/2 mL suspension 0.25 mg inhalation BID 10/28/21 Unknown History for nebulization bisacodyl 5 mg tablet 5 mg PO .once weekly 08/21/24 Unknown History docusate sodium 100 mg tablet 100 mg PO BID 08/21/24 Unknown History (Stool Softener) loratadine 10 mg tablet 10 mg PO QDAY 08/21/24 Unknown History mineral oil (Fleet Mineral Oil 118 ml GA .QTUFR 08/21/24 Unknown History enema) mupirocin calcium 2 % topical cream 1 applic topical BID 08/21/24 Unknown History ondansetron HCl 4 mg tablet 4 mg PO .COMPLEX #10 tabs 08/21/24 Unknown Rx oxybutynin chloride 15 mg 5 mg PO TID BLADDER 08/21/24 Unknown History tablet,extended release 24 hr peg 3350-electrolytes 236 240 ml PO Q10M #4,000 mL 08/21/24 Unknown Rx gram-22.74 gram-6.74 gram-5.86 gram solution (Golytely) psyllium husk 0.52 gram capsule 0.52 g PO QDAY 08/21/24 Unknown History (Fiber Laxative (psyllium husk)) sertraline 50 mg tablet 50 mg PO QDAY 08/21/24 Unknown History amoxicillin 500 mg-potassium 1 tab PO BID #14 tabs 11/29/24 Unknown Rx clavulanate 125 mg tablet (Augmentin) sulfamethoxazole 800 1 tab PO BID #14 tabs 11/29/24 Unknown Rx mg-trimethoprim 160 mg tablet (Bactrim DS) lubiprostone 24 mcg capsule 24 mcg PO BID constipation #60 caps 12/08/24 Unknown Rx (Amitiza) cefdinir 300 mg capsule 300 mg PO BID #20 caps 01/03/25 Unknown Rx Allergy/AdvReac Type Severity Reaction Status Date / Time amoxicillin (From Augmentin) AdvReac Diarrhea Verified 11/04/21 13:39 azithromycin (From Zithromax AdvReac Diarrhea Verified 11/04/21 13:39 Z-Turner) ciprofloxacin (From Cipro) AdvReac Pain in Verified 11/04/21 13:39 joints clavulanic acid (From AdvReac Diarrhea Verified 11/04/21 13:39 Augmentin) Surgical History History of incision and drainage Hx of eye surgery Hx of ileostomy History of brain shunt History of cystoscopy Hx of cholecystectomy Social History Smoking Status: Never smoker ROS Constitutional Constitutional: Denies body ache(s), change in weight, frequent falls, headache(s), increased appetite, poor appetite or snoring Eyes Eyes: Denies change in vision, decreased night vision, discharge from eye(s), exophthalmos, halo effect, itchy eyes, loss of central vision or loss of peripheral vision ENT HEENT: Denies dysphagia, ear discharge, facial pain, halitosis, headache(s), nasal congestion or nasal obstruction Cardiovascular Cardiovascular: Denies clubbing, cyanosis, diaphoresis, dyspnea at rest, dyspnea on exertion, easily tiring during activity or erythema on extremities Respiratory/Chest Respiratory/Chest: Denies dyspnea, dyspnea on exertion, hemoptysis, hoarseness, inability to speak, nail bed cyanosis or patience-oral cyanosis Gastrointestinal Gastrointestinal: Denies chewing difficulty, coffee ground emesis, constipation, cramping, diarrhea, dry heaves or dyspepsia Genitourinary Genitourinary: Denies abdominal discomfort, anuria, burning urination, difficulty urinating, dysuria or genital lesions Musculoskeletal Musculoskeletal: Denies joint stiffness, joint swelling, loss of height, muscle cramps, muscle spasms or muscle weakness Integumentary Integumentary: Denies erythema, furuncle, hirsutism, jaundice, lesions, nail changes or new lesions Neurologic Neurologic: Denies burning sensations, confusion, convulsions, disequilibrium, dizziness, focal weakness or frequent falls Psychiatric Psychiatric: Denies change in appetite, confusion, depression, difficulty concentrating, hallucinations, homicidal ideation or hopelessness Endocrine Endocrinology: Denies deepening of the voice, flushing, heat intolerance, palpitations, polydipsia, polyphagia or polyuria Allergic/Immunologic Allergic/Immunologic: Denies lip swelling, seasonal rhinorrhea, tongue swelling, hives, urticaria, eczemia or wheezing Vital Signs Vital Signs Vital Signs: 01/03/25 08:22 Temperature 97.1 F L Temperature Source Temporal Pulse Rate 106 H Respiratory Rate 18 Blood Pressure 117/76 Blood Pressure Mean 89 Blood Pressure Source Monitor Blood Pressure Position Semi-Fowlers Blood Pressure Location Right Arm Oxygen Delivery Method Room Air Physical Exam Const alert, oriented x3 and no apparent distress General Appearance: cooperative and well kempt HEENT normocephalic and hearing grossly normal bilaterally Head and Scalp: normal to inspection and atraumatic Neck full ROM and supple Resp normal respiratory effort Effort and Inspection: able to speak in complete sentences Skin Wounds: wounds noted size Size: See clinical note, bed with slough, no odor, open and surrounding erythema Neuro oriented x3 and CN's II-XII intact bilaterally Psych mental status grossly normal, cooperative and affect normal Appearance: grossly normal Attitude: calm Speech: normal speech Debridement Note Debridement Note Wound debrided: Sacrum Wound Grade/Stage: Stage III Type of Debridement: Excisional debridement Anesthesia Used: 5% Lidocaine Gel Depth: Down to and including healthy tissue and in the subcutaneous layer Percentage of wound debrided: 100 Instrument Used: 3mm curette Tissue Removed: Slough and devitalized tissue Severity: Fat Layer Exposed Amount of bleeding with debridement: Mild Bleeding Controlled with: Pressure Patient tolerated procedure: Patient did not tolerate procedure well Post-Debridement Measurements and Additional Note: Post-Debridement Measurements/Treatment - Nurse 1 - General Ulcer Assessment Start: 01/03/25 08:21 Freq: Status: Active Protocol: TOBIN Activity Type Activity Date Activity User E-sign Co-sign Detail Recorded Client Recorded Date Recorded By Document 01/03/25 08:22 [id number] 01/03/25 08:26 DS 01/03/25 08:22 - Today's Visit Information Type of service Initial Visit Arrival Mode Wheelchair Accompanied by mother and sister Patient Identification Verified (Name & Yes ) Patient Requires Transmission-Based No Precautions Safety Precautions Fall Prevention Vital Signs Temperature (97.8 F-99.1 F) 97.1 F L Temperature Source Temporal Pulse Rate (60-100) 106 H Pulse Location Monitor Respiratory Rate (12-18) 18 Respiratory rate source Observation Oxygen Delivery Method Room Air Blood Pressure (90/60-120/80) 117/76 Blood Pressure Mean 89 Source Monitor Position Semi-Fowlers Blood Pressure Location Right Arm Pain Scale: 0-10 Numeric Is Patient Pain Free? Yes Communication Assessment Preferred language Namibian Able to Read Yes Able to Write Yes Communication Tools None Right Hearing Abillity Normal Left Hearing Abillity Normal Visual Assistive Devices Glasses Teaching Assessment Preferences Verbal,Written Readiness To Learn Excellent Willingness to Engage in Self Management High Activies Readiness to Engage in Self Management High Activities Anxiety Level Calm Cooperation Cooperative Perception Coherent Interest in Health Problem Asks Questions Education Importance Acknowledges Need Does Patient Smoke tobacco or other No substances Is Patient Diabetic No Functional Assessment Recent Decline in Ability to Perform Denies Any Declines Teaching: Wound Center *Welcome to the Wound Center -Person Taught Patient,Family -Teaching Method Discussion -Response to teaching Verbalize Understanding WC - Nurse 1 - General Ulcer Measurement Start: 01/03/25 08:21 Freq: Status: Active Protocol: Activity Type Activity Date Activity User E-sign Co-sign Detail Recorded Client Recorded Date Recorded By Document 01/03/25 08:26 DS [id number] 01/03/25 08:36 DS 01/03/25 08:26 Wound Center Nurse 1 #9 coccyx -Current Size (cm) - Length 0.9 -Current Size (cm) - Width 0.9 -Current Size (cm) - Depth 0.1 -Total Square Cm 0.81 -Date of Last Picture (Recall this 01/03/25 field) -Photo Taken Yes -Tunneling No -Undermining/Tunneling No -Circular Undermining No -Exudate Amt None Present -Wound Margin Distinct, Outline Attached -Texture (Patience-wound Skin Appearance) Assessed -Moisture (Patience-wound Skin Appearance) Assessed -Color (Patience-wound Skin Appearance) Assessed -Temperature (Patience-wound Skin No Abnormality Appearance) (Pt Warm) -Tenderness on Palpation (Patience-wound No Skin Appearance) -Ulcer Cleansing Soap and Water -Foul Odor after Cleansing No -Anesthetic Used 5% Lidocaine Gel WC - Nurse 2 - General Ulcer CM Notes Start: 01/03/25 08:21 Freq: Status: Active Protocol: Activity Type Activity Date Activity User E-sign Co-sign Detail Recorded Client Recorded Date Recorded By Document 01/03/25 08:41 [id number] 01/03/25 08:46 01/03/25 08:41 Wound Center Nurse 2 -Time 08:41 -Correct Patient Yes -Correct Side, Site, Position Yes -Correct Procedure Yes -Procedure Performed Yes -Type of Procedure Debridement -Clinical Debridement Subcutaneous -Tissue Removed Subcutaneous -Post Debridement (cm) - Length 0.9 -Post Debridement (cm) - Width 1.0 -Post Debridement (cm) - Depth 0.1 -Total Square (Post) (cm) 0.90 -Area of Debridement (cm) - Length 0.9 -Area of Debridement (cm) - Width 1.0 -Total Square (Area) (cm) 0.90 -Tunneling No -Undermining/Tunneling No -Circular Undermining No -Wound/Ulcer Outcome Not Healed -Ulcer Cleansing Rinsed/ Irrigated with Saline -Foul Odor after Cleansing No -Bioengineered Tissue No -Bleeding Controlled with Pressure -Treatment Response Procedure Tolerated Well -Offloading No -Debridement - Subq, 1st 20sq cm Yes Pain Scale: 0-10 Numeric Is Patient Pain Free? Yes - Nurse 3 - General Ulcer D/C NN Start: 01/03/25 08:21 Freq: Status: Active Protocol: Activity Type Activity Date Activity User E-sign Co-sign Detail Recorded Client Recorded Date Recorded By Document 01/03/25 08:52 WV [id number] 01/03/25 09:06 W[place] 01/03/25 08:52 Wound Care Center Nurse 3 #9 coccyx -Primary Dressing Applied Promogran, Silicone Border Foam 4x4 -Other Dressing adaptic -Promogran 1 -Silicone Border Foam 4x4 2 Pain Scale: 0-10 Numeric Is Patient Pain Free? Yes WC - Visit Discharge Discharge Condition Stable Ambulatory Status Wheelchair Transportation Private Auto Medication Reconcilliation completed & No provided to patient/care provider Clinical Summary of Care Provided Yes Notes: explained new dressing changes to family and pt. they verbalized understanding. Charges/Coding Visit Charges Office Visits / Consults: 38987 OV L3 Est 20min Procedures Integumentary 111xxx-113xx: 16768 Sherlyn subq tissue 20 sq cm/< Assessment/Plan Assessment/Plan (1) Pressure ulcer of sacral region, stage 3: CODE(S): L89.153 - Pressure ulcer of sacral region, stage 3 (2) Spina bifida: CODE(S): Q05.9 - Spina bifida, unspecified PLAN: Plan New area of opening. Noted on Tuesday. No known precipitating factors however recently went back to her workshop. No chills, fever or feeling of unwell. Debridement done as documented above, procedure was well-tolerated. Area of erythema noted surrounding ulceration. Concern for cellulitis. Culture taken. Empirically starting cefdinir 300 mg twice daily for 10 days. For now, Promogran daily. Cover with Adaptic and foam dressing. Change when soiled. Continue offloading and reposition often. Optimal protein intake. Their questions were answered and they were advised to let us know if they had any further questions or concerns. Follow-up in a week or sooner if needed. This note was generated with [employer] software. It may contain incorrect words, spelling, and punctuation that were not noted in checking the note before signing.
--- NOTE | 2025-01-04 08:31 | WC ---
PHOTO-COCCYX 01/03/25
== END 2025-01-03 23:59 | disposition home or self-care (01) ==
LOC: WC 08:08
PROVIDERS: PCP Nurse Practitioner Family; Referring Provider Internal Medicine; Visit Provider Internal Medicine
DX: L89.153 Pressure ulcer of sacral region, stage 3 (principal); Q05.9 Spina bifida, unspecified; Z79.51 Long term (current) use of inhaled steroids; Z79.82 Long term (current) use of aspirin; K21.9 Gastro-esophageal reflux disease without esophagitis; F32.A Depression, unspecified; Z90.49 Acquired absence of other specified parts of digestive tract
CPT/HCPCS: 11042; 87070; 87075; 87205; 99213; G0463

== ENCOUNTER → 2025-01-15 | Outpatient (CLI) | payer MEDICARE, MEDICAID, SELFPAY ==
--- NOTE | 2025-01-15 18:37 | CT_ITS ---
PROCEDURE: ABDOMEN/PELVIS WITHOUT CONT 01/15/2025 REASON FOR EXAM: FREQUENCY OF MICTURITION TECHNIQUE: ABDOMEN/PELVIS WITHOUT CONT Noncontrast technique limits evaluation of the abdominal and pelvic viscera. Coronal and Sagittal reconstruction series were provided. One or more dose reduction techniques were used (e.g., Automated exposure control, adjustment of the mA and/or kV according to patient size, use of iterative reconstruction technique). RADIATION DOSE SUMMARY: CTDlvol: 15 mGy DLP: 696 mGycm COMPARISON: 10/12/2021 FINDINGS: Severe scoliosis. Thoracic cage deformity. Clear lung bases. Normal heart size. Status post cholecystectomy. Unremarkable liver, pancreas, spleen, adrenal glands, kidneys. No hydronephrosis or ureteral stone. Suprapubic catheter tip in bladder lumen. Normal uterus. No retroperitoneal or pelvic adenopathy. There is a lower pelvic mass or cyst, series 2, image 119, measuring 1.8 x 2.3 cm, nonspecific but favoring benign etiology. No free air. Distal end of SIGHT MOUNTER shunt tip terminates in the peritoneal cavity. Nonobstructed bowel.. Status post appendectomy. No acute large bowel findings. Extensive thoracic lumbar scoliosis status post spinal rhonda placement. Muscle wasting. Bilateral hip joint deformity. Sacral hypoplasia. CT/Abdomen/Pelvis without Cont IMPRESSION: No acute abdominopelvic findings. Reading Location: [place] [id number]
== END | disposition home or self-care (01) ==
PROVIDERS: PCP Nurse Practitioner Family; Referring Provider Urology; Visit Provider Urology
DX: R32 Unspecified urinary incontinence (principal); R35.0 Frequency of micturition; Z87.442 Personal history of urinary calculi
CPT/HCPCS: 74176

== ENCOUNTER 2025-01-22 08:42 | Day surgery (SDC) | payer MEDICARE, MEDICAID, SELFPAY ==
[2025-01-22 10:01] VITALS: BP 137/99; PULSE 110; RESP 16; TEMP 36.4; O2SAT 97; BMI 26.4
[2025-01-22] MEDS: Lactated Ringers 1,000 ML 15 ML IV (10:01)
--- NOTE | 2025-01-22 10:40 | PCM.PRE.AN2 ---
ASA Classification* ASA Classification ASA Classification: 3 Assessment & Plan Anesthesia* Anesthesia Assessment Anesthesia Assessment: Discussed sedation and/or anesthesia options, risks, benefits, and alternatives with patient/parents/legal guardian/POA. Questions invited. The patient/parents/legal guardian/POA seems to understand and agrees to proceed with anesthesia plan. Reviewed the physical assessment, medical history, allergy history and patient home medications list prior to surgery/procedure/anesthetic and documented any changes. Performed airway and anesthesia risk assessments. Anesthesia Type Anesthesia Type: MAC History Source History Obtained from:: Patient, Chart and Parent/ Guardian Anesthesia Focused Assessment* Oxygen Delivery Method: Room Air Airway Assessment Mouth opens: 2 cm Mallampati Score: III Teeth Condition: Intact Neck Range of motion (ROM): Full ROM Labs Anesthesia Preop lab: CBC WBC 13.0 K/mm3 (4.4-11.0) H 06/02/22 15:23 06/02/22 RBC 4.24 M/mm3 (4.2-5.4) 06/02/22 15:23 06/02/22 Hgb 12.6 g/dL (12.0-15.0) 06/02/22 15:23 06/02/22 Hct 38.7 % (37-47) 06/02/22 15:23 06/02/22 Plt Count 442 K/mm3 (150-450) 06/02/22 15:23 06/02/22 CHEMISTRY Potassium 3.4 mmol/L (3.5-5.1) L 10/12/21 14:13 10/12/21 Sodium 139 mmol/L (136-145) 10/12/21 14:13 10/12/21 Magnesium 2.0 mg/dL (1.6-2.6) 03/12/18 11:30 03/12/18 BUN 9 mg/dL (7-18) 10/12/21 14:13 10/12/21 Creatinine 0.56 mg/dL (0.55-1.02) 10/12/21 14:13 10/12/21 Glucose 122 mg/dL (74-106) H 10/12/21 14:13 10/12/21 TSH 2.40 uIU/mL (0.358-3.74) 03/12/18 11:30 03/12/18 COAG Urine Test Negative Negative 09/11/20 11:48 09/11/20 Pre-Assessment Diagnosis/Proposed Procedure Planned Operative Procedure(s): COLONOSCOPY Anesthesia History 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 When Was Last Pacemaker Check QUESTION #4 FULL TEXT: You/Your Family Experience fever (hyperthermia) with Anesthesia Last Oral Intake Last Oral intake: Last Oral Intake NPO since Meds taken in AM with sips of water? Meds patient instructed to take am of surgery PONV PONV - plant safety leader: PONV - plant safety leader Female Yes 01/22/25 10:33 HX of Motion Sickness No 01/22/25 10:33 HX of N/V After Surgery No 01/22/25 10:33 Non-Smoker Yes 01/22/25 10:33 Duration of Surgery greater No 01/22/25 10:33 than 60 minutes Number of Risk Factors 2 01/22/25 10:33 PONV Score Moderate Risk 01/22/25 10:33 Height & Weight Height & Weight: Anesthesia: Height & Weight Height 4 ft 7.9 in 08/21/24 13:52 Respiratory Assessment Respiratory Assessment - plant safety leader: Respiratory Tract Infection Hx - plant safety leader Hx Respiratory Tract Infection No 01/22/25 10:33 STOP Sleep Apnea STOP Sleep Apnea - plant safety leader: STOP Sleep Apnea - plant safety leader Hx Hypertension Yes 01/22/25 10:33 Hx Sleep Apnea Yes 01/22/25 10:33 CPAP No 01/22/25 10:33 BIPAP Yes 01/22/25 10:33 Do you snore loudly (louder than talking or can be heard Do you often feel tired/ fatigued/ sleepy during daytime? Has anyone observed you stop breathing during sleep? STOP Results Positive 01/22/25 10:33 QUESTION #5 FULL TEXT : Do you snore loudly (louder than talking or can be heard through closed doors)? 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 Specify any problems Hx of Preganancy in last 3 No 01/22/25 10:33 Months Nurse Filling Out Transfusion MGRIFFITH 01/22/25 10:33 & Questions: Date: 01/22/25 01/22/25 10:33 Time: 10:34 01/22/25 10:33 Patient unable to answer at this time (ie. confused, unrespo /Reproduction History /Reproductive History - plant safety leader: /Reproductive Hx- plant safety leader Hx Now No 01/22/25 10:33 Gestational Age (in weeks): EDC: Hx Hx Para Hx Section SAB No 01/22/25 10:33 Active Medications Active Medications: Current Medications Generic Name Dose Route Start Last Admin Trade Name Freq PRN Reason Stop Dose Admin Lactated Ringer's 1,000 mls @ 15 mls/hr 01/22/25 09:45 01/22/25 10:01 IV 15 mls/hr .Q48H MONE Administration PFSH Medical History Decubitus ulcer of right buttock, stage 3 Decubitus ulcer of left buttock, stage 3 UTI (urinary tract infection) GI problem Kidney stone Seasonal allergies Wears glasses Depression Uses wheelchair History of urinary self-catheterization Back pain Constipation Gastric reflux Non-smoker BiPAP (biphasic positive airway pressure) dependence Asthma History of edema History of echocardiogram Hx of back injury Acquired scoliosis Spina bifida Home Medications ?Medication ?Instructions ?Recorded ?Last Taken ?Type multivitamin with folic acid 400 1 tab PO QHS general health 04/24/13 01/22/25 History mcg tablet (Thera) omeprazole 20 mg capsule,delayed 20 mg PO QHS acid reflux 03/11/18 01/21/25 History release aspirin 81 mg chewable tablet 81 mg PO DAILY@0800 03/14/18 01/22/25 Rx potassium citrate 15 mEq (1,620 15 meq PO BID ##60 03/23/19 01/22/25 Rx mg) tablet,extended release polyethylene glycol 3350 17 gram 17 gm PO DAILY PRN PRN Constipation 09/14/20 01/22/25 History oral powder packet budesonide 0.25 mg/2 mL suspension 0.25 mg inhalation BID 10/28/21 Unknown History for nebulization bisacodyl 5 mg tablet 5 mg PO FR 08/21/24 Unknown History docusate sodium 100 mg tablet 100 mg PO BID 08/21/24 01/22/25 History (Stool Softener) loratadine 10 mg tablet 10 mg PO QDAY 08/21/24 01/22/25 History mupirocin calcium 2 % topical cream 1 applic topical BID 08/21/24 01/22/25 History oxybutynin chloride 15 mg 5 mg PO TID BLADDER 08/21/24 01/22/25 History tablet,extended release 24 hr psyllium husk 0.52 gram capsule 0.52 g PO QDAY 08/21/24 01/22/25 History (Fiber Laxative (psyllium husk)) sertraline 50 mg tablet 50 mg PO QDAY 08/21/24 01/22/25 History peg 3350-electrolytes 236 240 ml PO Q10M #4,000 mL 01/16/25 01/21/25 Rx gram-22.74 gram-6.74 gram-5.86 gram solution (Golytely) Bacillus coagulans 250 million 1 tab PO DAILY 01/22/25 Unknown History cell chewable tablet (Digestive Advantage Probiotic Gummy) lisinopril 20 mg tablet 20 mg PO DAILY 01/22/25 01/22/25 History Allergy/AdvReac Type Severity Reaction Status Date / Time amoxicillin (From Augmentin) AdvReac Diarrhea Verified 01/22/25 09:34 azithromycin (From Zithromax AdvReac Diarrhea Verified 01/22/25 09:34 Z-Turner) ciprofloxacin (From Cipro) AdvReac Pain in Verified 01/22/25 09:34 joints clavulanic acid (From AdvReac Diarrhea Verified 01/22/25 09:34 Augmentin) Surgical History History of incision and drainage Hx of eye surgery Hx of ileostomy History of brain shunt History of cystoscopy Hx of cholecystectomy Social History Smoking Status: Never smoker Review of Systems (Anesthesia) ROS Narrative System reviewed and no additional complaints, except as documented. Physical Exam Resp normal respiratory effort and normal air movement Cardio regular rate and regular rhythm
--- NOTE | 2025-01-22 11:39 | PCM.HP.STD ---
HPI - General General Date of Admission: 01/22/25 Date of Service: 01/22/25 Chief Complaint: Constipation HPI Narrative TOMMY DE LA TORRE, is a 49 F who presents Chief Complaint: constipaiton - she is seen in the office today with her mom, sister and caregiver - used to do digital stimulation - enema on Tuesday and Fridays - stools are very small - smears or skid alexandra - Dulcolax 4 tabs and 2 stool softeners would result in an explosive stool - denies any abdominal pain - does experience abdominal distension - she will have nausea with laxatives - has a history of bed sores, presently none - has choked significantly in the past - she is supposed to be on a special diet, food is chopped up into small pieces, que often to take small bites, alternate sips and swallow - h/o CCX - denies any family h/o colon CA - in past she did a bag enema of water but this never worked, this was years ago - denies any weight loss - sister reports the idea behind the enemas two days a week, was so she could have a BM in a controlled environment and still function and go to shop during the week without interfering with her daily activities - sister reports she really needs to keep to her daily routine for her QOL - while this seems ideal, it does not appear practical [facility] Medical History Suprapubic catheter History of Clostridium difficile infection Anxiety Pressure ulcer Easy bruising Dietary restriction Difficulty chewing Heartburn Sleep apnea On home oxygen therapy Hypertension Decubitus ulcer of right buttock, stage 3 Decubitus ulcer of left buttock, stage 3 GI problem Seasonal allergies Wears glasses Depression Uses wheelchair History of urinary self-catheterization Back pain Constipation Gastric reflux Non-smoker BiPAP (biphasic positive airway pressure) dependence Asthma History of edema History of echocardiogram Hx of back injury Acquired scoliosis Spina bifida Home Medications ?Medication ?Instructions ?Recorded ?Last Taken ?Type multivitamin with folic acid 400 1 tab PO QHS general health 04/24/13 01/22/25 History mcg tablet (Thera) omeprazole 20 mg capsule,delayed 20 mg PO QHS acid reflux 03/11/18 01/21/25 History release aspirin 81 mg chewable tablet 81 mg PO DAILY@0800 03/14/18 01/22/25 Rx potassium citrate 15 mEq (1,620 15 meq PO BID ##60 03/23/19 01/22/25 Rx mg) tablet,extended release polyethylene glycol 3350 17 gram 17 gm PO DAILY PRN PRN Constipation 09/14/20 01/22/25 History oral powder packet budesonide 0.25 mg/2 mL suspension 0.25 mg inhalation BID 10/28/21 Unknown History for nebulization bisacodyl 5 mg tablet 5 mg PO FR 08/21/24 Unknown History docusate sodium 100 mg tablet 100 mg PO BID 08/21/24 01/22/25 History (Stool Softener) loratadine 10 mg tablet 10 mg PO QDAY 08/21/24 01/22/25 History mupirocin calcium 2 % topical cream 1 applic topical BID 08/21/24 01/22/25 History oxybutynin chloride 15 mg 5 mg PO TID BLADDER 08/21/24 01/22/25 History tablet,extended release 24 hr psyllium husk 0.52 gram capsule 0.52 g PO QDAY 08/21/24 01/22/25 History (Fiber Laxative (psyllium husk)) sertraline 50 mg tablet 50 mg PO QDAY 08/21/24 01/22/25 History peg 3350-electrolytes 236 240 ml PO Q10M #4,000 mL 01/16/25 01/21/25 Rx gram-22.74 gram-6.74 gram-5.86 gram solution (Golytely) Bacillus coagulans 250 million 1 tab PO DAILY 01/22/25 Unknown History cell chewable tablet (Digestive Advantage Probiotic Gummy) lisinopril 20 mg tablet 20 mg PO DAILY 01/22/25 01/22/25 History Allergy/AdvReac Type Severity Reaction Status Date / Time amoxicillin (From Augmentin) AdvReac Diarrhea Verified 01/22/25 09:34 azithromycin (From Zithromax AdvReac Diarrhea Verified 01/22/25 09:34 Z-Turner) ciprofloxacin (From Cipro) AdvReac Pain in Verified 01/22/25 09:34 joints clavulanic acid (From AdvReac Diarrhea Verified 01/22/25 09:34 Augmentin) Surgical History History of brain surgery History of incision and drainage Hx of eye surgery Hx of ileostomy History of brain shunt History of cystoscopy Hx of cholecystectomy Social History Smoking Status: Never smoker ROS Constitutional Constitutional: Denies fatigue, fever(s), poor appetite, weight gain or weight loss Gastrointestinal Gastrointestinal: Denies belching, bloating, change in bowel habits, change in stool character, chewing difficulty, coffee ground emesis, constipation, cramping, diarrhea, dyspepsia, dysphagia, early satiety, excessive flatus, fecal incontinence, heartburn, hematemesis, hematochezia, hemorrhoids, loose stools, melena, nausea, odynophagia, rectal bleeding, tenesmus, vomiting or weight changes Vital Signs Vital Signs Vital Signs: 01/22/25 10:01 01/22/25 10:05 01/22/25 10:41 Temperature 97.5 F L Temperature Source Temporal Pulse Rate 110 H Respiratory Rate 16 Respiratory Pattern Normal Blood Pressure 137/99 H Blood Pressure Mean 111 Blood Pressure Source Monitor Blood Pressure Position Semi-Fowlers Blood Pressure Location Right Arm Pulse Ox 97 Oxygen Delivery Method Room Air Room Air Weight Weight: 135 lb Body Mass Index (BMI) 26.4 Physical Exam Const alert, oriented x3, no apparent distress and healthy appearing General Appearance: cooperative GI normal to inspection, nondistended, normoactive bowel sounds, soft to palpation, non-tender and non-distended Percussion: normal to percussion Rectal Exam: deferred Assessment & Plan Assessment/Plan (1) Constipation: QUALIFIERS: Constipation type: chronic idiopathic constipation Qualified Code(s): K59.04 - Chronic idiopathic constipation PLAN: Assessment and Plan Assessment and Plan (1) Constipation: Status: Acute Qualifiers: Constipation type: chronic idiopathic constipation Qualified Code(s): K59.04 - Chronic idiopathic constipation Orders: Orders Thyroid Stim Hormone (TSH) Today K59.00 - Constipation, unspecified Medications: New linaclotide (Linzess) 290 mcg PO QDAY 90 caps 1RF peg 3350-electrolytes 236-22.74-6.74 -5.86 gram (Golytely) take as directed for split dose bowel prep 240 mL PO Q10M 4,000 mL 0RF ondansetron HCl 4 mg orally; take two tablets PO two hours prior to start of bowel prep and one every 4 hours as needed for N/V 10 tabs 0RF Plan 49y/o female presents for initial consult with complaints of chronic constipation. PMH of spina bifida. Presents in WC today with her mom, sister and caregiver from halfway. She has tried and failed multiple OTC laxatives and enemas. She does experience abdominal distension, bloating and occasional abdominal pain with nausea. She is presently only having a BM 24-48 hours after use of an enema, and family reports this only produces a small smear of a stool. I have started her on Linzess 290mcg once daily. She will proceed with colonoscopy. Discussed risk of skin breakdown secondary to frequent soiling. She resides in a halfway and they are aware they will need to frequently monitor for soiling. Linzess has an increased risk of diarrhea in the first two weeks of treatment. We have discussed importance of daily use and PRN use of laxative while possibly more convenient have shown to be ineffective. Patient Instructions: Start Linzess 290mcg once daily at 1400. Take on an empty stomach, 30 minutes before a snack. Linzess may cause diarrhea and diarrhea may be worse in the first two weeks of continuous use. Increase fluid intake Discontinue bi-weekly enemas Discontinue stool softener Follow-up in office 10-14 days post procedure
[2025-01-22 12:45] VITALS: BP 126/71; BP 137/99; PULSE 114; RESP 16; TEMP 37.4; O2SAT 100
--- NOTE | 2025-01-22 12:48 | OP.PROVAT_ITS ---
01/22/2025 Sangeeta Joseph Re : Colonoscopy procedure for Juliette Baileyr Mesfin This procedure was performed on Wednesday, January 22, 2025. My impressions and recommendations are as follows: Impressions : - Preparation of the colon was fair. - Redundant colon. - Stool in the recto-sigmoid colon, in the sigmoid colon, in the descending colon, at the splenic flexure, in the transverse colon and in the cecum. - No specimens collected. Recommendations : - Discharge patient to home. - Resume previous diet. - Continue present medications. - Repeat colonoscopy in 5 years for surveillance. My findings are described in the full procedure note, which is enclosed. If I can be of further assistance, please feel free to contact me at . Sincerely, Mario Rai, 01/22/2025 12:48:14 PM This report has been signed electronically.
--- NOTE | 2025-01-22 12:48 | OP.COLON_ITS ---
Patient Name: Juliette Crews Procedure Date: 01/22/2025 11:23 AM Date of : 1975 Age: 49 Procedure: Colonoscopy Indications: Screening for colorectal malignant neoplasm Providers: Mario Rai DO Referring MD: Sangeeta Joseph Medicines: Monitored Anesthesia Care Patient Profile: This is a 49 year old female. Refer to note in patient chart for documentation of history and physical. Last Colonoscopy: none. The patient's first colonoscopy is today. Complications: No immediate complications. Procedure: Pre-Anesthesia Assessment: - Prior to the procedure, a History and Physical was performed, and patient medications and allergies were reviewed. The patient is competent. The risks and benefits of the procedure and the sedation options and risks were discussed with the patient. All questions were answered and informed consent was obtained. Patient identification and proposed procedure were verified by the physician in the pre-procedure area. Mental Status Examination: alert and oriented. Airway Examination: normal oropharyngeal airway and neck mobility. Respiratory Examination: clear to auscultation. CV Examination: normal. Prophylactic Antibiotics: The patient does not require prophylactic antibiotics. Prior Anticoagulants: The patient has taken no anticoagulant or antiplatelet agents. ASA Grade Assessment: III - A patient with severe systemic disease. After reviewing the risks and benefits, the patient was deemed in satisfactory condition to undergo the procedure. The anesthesia plan was to use monitored anesthesia care (MAC). Immediately prior to administration of medications, the patient was re-assessed for adequacy to receive sedatives. The heart rate, respiratory rate, oxygen saturations, blood pressure, adequacy of pulmonary ventilation, and response to care were monitored throughout the procedure. The physical status of the patient was re-assessed after the procedure. After I obtained informed consent, the scope was passed under direct vision. Throughout the procedure, the patient's blood pressure, pulse, and oxygen saturations were monitored continuously. The Colonoscope was introduced through the anus and advanced to the cecum, identified by appendiceal orifice and ileocecal valve. The colonoscopy was performed without difficulty. The patient tolerated the procedure well. The quality of the bowel preparation was fair. The ileocecal valve, appendiceal orifice, and rectum were photographed. Scope In: 12:21:55 PM Scope Withdrawal Time 0 hours 12 minutes 25 seconds Scope Out: 12:40:55 PM Total Procedure Duration Time 0 hours 19 minutes 0 seconds Findings: The perianal and digital rectal examinations were normal. The colon (entire examined portion) was significantly redundant. Stool was found in the recto-sigmoid colon, in the sigmoid colon, in the descending colon, at the splenic flexure, in the transverse colon and in the cecum. Lavage of the area was performed using greater than 500 mL, resulting in incomplete clearance with fair visualization. Impression: - Preparation of the colon was fair. - Redundant colon. - Stool in the recto-sigmoid colon, in the sigmoid colon, in the descending colon, at the splenic flexure, in the transverse colon and in the cecum. - No specimens collected. Recommendation: - Discharge patient to home. - Resume previous diet. - Continue present medications. - Repeat colonoscopy in 5 years for surveillance. Procedure Code(s): --- Professional --- 01607, Colonoscopy, flexible; diagnostic, including collection of specimen(s) by brushing or washing, when performed (separate procedure) CPT copyright 2021 [employer]. All rights reserved. The codes documented in this report are preliminary and upon office admin review may be revised to meet current compliance requirements. Mario Rai DO 01/22/2025 12:48:14 PM This report has been signed electronically. Number of Addenda: 0 Note Initiated On: 01/22/2025 11:23 AM
[2025-01-22 12:50] VITALS: BP 118/78; BP 137/99; PULSE 114; RESP 16; O2SAT 100
--- NOTE | 2025-01-22 12:51 | PCM.POST.ANE ---
Anesthesia: Postop Eval I Current Vital Signs Temperature: 99.3 F Pulse Rate: 109 Blood Pressure: 126/71 Respiratory Rate: 18 Pulse Ox: 100 Oxygen Delivery Method: Room Air Assessment Airway patent: Yes Spontaneous unlabored respirations: Yes Mental status: Awake nausea: No Vomiting: No Anesthesia Complication: Yes Anesthesia Complication Comment:: in situ IV infiltrated Fluid Hydration Crystalloid volume administer (ml): 300 Total IV fluid infused: 300 Progress Note Anesthesia document: Postop Eval 1 completed: Yes
[2025-01-22 12:52] VITALS: BP 126/71; PULSE 109; RESP 18; TEMP 37.4; O2SAT 100
[2025-01-22 12:55] VITALS: BP 115/85; BP 137/99; PULSE 114; RESP 18; TEMP 37.3; O2SAT 100
[2025-01-22 13:28] VITALS: BP 137/99
--- NOTE | 2025-01-22 14:31 | PCM.POSTANE2 ---
Anesthesia Postop Eval I Sum Postop Eval Completion status Anesthesia document: Postop Eval 1 completed: Yes Anesthesia Postop Eval I Summary Anesthesia Postop Eval I Summary: Anesthesia Postop Eval I: Assessment Summary Airway patent Yes 01/22/25 12:52 [email or web address] Spontaneous unlabored Yes 01/22/25 12:52 [email or web address] respirations Mental status Awake 01/22/25 12:52 [email or web address] nausea No 01/22/25 12:52 [email or web address] Vomiting No 01/22/25 12:52 [email or web address] Anesthesia Postop Eval I: Fluid Summary Crystalloid volume administer 300 01/22/25 12:52 [email or web address] (ml) Colloids volume administered ( ml) Blood Product volume administered (ml) Total IV fluid infused 300 01/22/25 12:52 [email or web address] Anesthesia Postop Eval I: Summary Notes Anesthesia Complication Yes 01/22/25 12:52 [email or web address] Anesthesia Complication in situ IV 01/22/25 12:52 [email or web address] Comment: infiltrated Post-operative progress note Anesthesia: Postop Eval II Evaluation Mental status: Awake Pain Level: 0 nausea: No Vomiting: No Complications Anesthesia Complication: No
== END 2025-01-22 13:41 | disposition home or self-care (01) ==
LOC: EN 08:43 → AC 08:45
PROVIDERS: PCP Nurse Practitioner Family; Referring Provider Nurse Practitioner Family; Visit Provider Internal Medicine Gastroenterology
PROC: 0DJD8ZZ Inspection of Lower Intestinal Tract, Via Natural or Artificial Opening Endoscopic (ICD-10-PCS; CPT 45378; principal; 2025-01-22 11:25)
DX: K59.04 Chronic idiopathic constipation (principal); K21.9 Gastro-esophageal reflux disease without esophagitis; Z79.899 Other long term (current) drug therapy; I10 Essential (primary) hypertension; Z79.51 Long term (current) use of inhaled steroids; Q43.8 Other specified congenital malformations of intestine; Z79.82 Long term (current) use of aspirin; G47.30 Sleep apnea, unspecified; Z99.81 Dependence on supplemental oxygen; J45.909 Unspecified asthma, uncomplicated; F41.9 Anxiety disorder, unspecified; F32.A Depression, unspecified; Z90.49 Acquired absence of other specified parts of digestive tract
CPT/HCPCS: 45378; J2405

== ENCOUNTER 2025-01-31 10:00 | Outpatient (RCR) | payer MEDICARE, MEDICAID, SELFPAY ==
[2025-01-10 10:34] VITALS: BP 122/85; PULSE 92; RESP 16; TEMP 36.1
--- NOTE | 2025-01-10 11:27 | PN.PCM_ITS ---
History of Present Illness Date of Service: 01/10/25 Chief Complaint: Sacral/Coccyx Ulcer History of Wound: Ms. Crews is a 49-year-old well-known to me. Recently discharged following healing of decubitus ulcers however, presents with a new sacral area ulcer. Said to have opened on Tuesday. 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 Had been off due to previous decubitus ulcers. Tuesday, new area of opening was noted. No chills, fever or feeling of unwell. Appetite is good. Progress of Wound: Concerns with dressing changes due to long term restrictions and state mandate. [facility] staff is unable to do dressing changes because Promogran is listed as a "debriding agent" which they cannot apply. Her sister has been having to come in for dressing changes. Otherwise, no acute concerns reported at this time. Cultures from last visit with no growth. Has a few more days of cefdinir for cellulitis. Objective Data Objective Data Vital Signs: Vital Signs Temp Pulse Resp BP 97 F L 92 16 122/85 H 01/10/25 10:34 01/10/25 10:34 01/10/25 10:34 01/10/25 10:34 Charges/Coding Procedures Integumentary 111xxx-113xx: [id number] Sherlyn subq tissue 20 sq cm/< Physical Exam Const alert, oriented x3 and no apparent distress General Appearance: cooperative and well kempt HEENT normocephalic and hearing grossly normal bilaterally Head and Scalp: normal to inspection and atraumatic Neck full ROM and supple Resp normal respiratory effort and normal air movement Effort and Inspection: able to speak in complete sentences Skin Wounds: wounds noted size Size: See clinical note, bed granulating well and with slough, no odor, open and surrounding erythema Neuro oriented x3 and CN's II-XII intact bilaterally Psych mental status grossly normal, cooperative and affect normal Appearance: grossly normal Attitude: calm Speech: normal speech Debridement Note Debridement Note Wound debrided: Sacrum Wound Grade/Stage: Stage III Type of Debridement: Excisional debridement Anesthesia Used: 5% Lidocaine Gel Depth: Down to and including healthy tissue and in the subcutaneous layer Percentage of wound debrided: 100 Instrument Used: 3mm curette Tissue Removed: Slough and devitalized tissue Severity: Fat Layer Exposed Amount of bleeding with debridement: Mild Bleeding Controlled with: Pressure Patient tolerated procedure: Patient tolerated procedure well Post-Debridement Measurements and Additional Note: Post-Debridement Measurements/Treatment - Nurse 1 - General Ulcer Assessment Start: 01/10/25 10:34 Freq: Status: Active Protocol: TOBIN Activity Type Activity Date Activity User E-sign Co-sign Detail Recorded Client Recorded Date Recorded By Document 01/10/25 10:34 HAROON [id number] 01/10/25 10:39 01/10/25 10:34 - Today's Visit Information Type of service Follow-up Visit (Physician/INPUT OUTPUT CLERK ) Arrival Mode Wheelchair Transfer Assistance Manual Transfer Assist (Other) 2 Patient Identification Verified (Name & Yes ) Vital Signs Temperature (97.8 F-99.1 F) 97 F L Temperature Source Temporal Pulse Rate (60-100) 92 Pulse Location Monitor Respiratory Rate (12-18) 16 Respiratory rate source Observation Blood Pressure (90/60-120/80) 122/85 H Blood Pressure Mean (mm Hg) 97 Source Monitor Position Semi-Fowlers Blood Pressure Location Left Forearm History Since Last Visit- (Skip if this is Patient's initial visit) Have you changed medications since your No last visit? Any new allergies or adverse reactions No Had a fall/change in ADL's that may No increase risk of falls Signs or symptoms of abuse and/or No neglect since last visit Have you been in the hospital since your No last visit? Has dressing in place as prescribed Yes Has compression in place as prescribed N/A Has offloadiing in place as prescribed N/A Experienced any changes in pain level or No management Pain Scale: 0-10 Numeric Is Patient Pain Free? Yes - Nurse 1 - General Ulcer Measurement Start: 01/10/25 10:34 Freq: Status: Active Protocol: Activity Type Activity Date Activity User E-sign Co-sign Detail Recorded Client Recorded Date Recorded By Document 01/10/25 10:34 HAROON [id number] 01/10/25 10:39 01/10/25 10:34 Wound Center Nurse 1 #9 coccyx -Current Size (cm) - Length 0.7 -Current Size (cm) - Width 0.5 -Current Size (cm) - Depth 0.3 -Total Square Cm 0.35 -Photo Taken Yes -Exudate Amt Medium -Exudate Type Serosanguineous -Wound Margin Flat & Intact -Granulation Amt Large (67-100%) -Granulation Quality [place] -Slough/Fibrin No -Structure Exposed N/A -Texture (Patience-wound Skin Appearance) No Abnormality -Moisture (Patience-wound Skin Appearance) No Abnormality -Color (Patience-wound Skin Appearance) No Abnormality -Temperature (Patience-wound Skin No Abnormality Appearance) (Pt Warm) -Tenderness on Palpation (Patience-wound No Skin Appearance) -Ulcer Cleansing Soap and Water -Foul Odor after Cleansing No -Anesthetic Used 5% Lidocaine Gel WC - Nurse 2 - General Ulcer CM Notes Start: 01/10/25 10:34 Freq: Status: Active Protocol: Activity Type Activity Date Activity User E-sign Co-sign Detail Recorded Client Recorded Date Recorded By Document 01/10/25 10:47 [id number] 01/10/25 10:53 01/10/25 10:47 Wound Center Nurse 2 -Time 10:47 -Correct Patient Yes -Correct Side, Site, Position Yes -Correct Procedure Yes -Procedure Performed Yes -Type of Procedure Debridement -Clinical Debridement Subcutaneous -Tissue Removed Subcutaneous -Post Debridement (cm) - Length 0.5 -Post Debridement (cm) - Width 0.9 -Post Debridement (cm) - Depth 0.6 -Total Square (Post) (cm) 0.45 -Area of Debridement (cm) - Length 0.5 -Area of Debridement (cm) - Width 0.9 -Total Square (Area) (cm) 0.45 -Tunneling No -Undermining/Tunneling Yes -Undermining/Tunneling Starts (O'clock 11 ) -Undermining/Tunneling Ends (O'clock) 2 -Maximum Distance (cm) 0.6 -Circular Undermining No -Wound/Ulcer Outcome Not Healed -Ulcer Cleansing Rinsed/ Irrigated with Saline -Foul Odor after Cleansing No -Bioengineered Tissue No -Bleeding Controlled with Pressure -Treatment Response Procedure Tolerated Well -Offloading No -Debridement - Subq, 1st 20sq cm Yes Pain Scale: 0-10 Numeric Is Patient Pain Free? Yes JESSICA - Nurse 3 - General Ulcer D/C NN Start: 01/10/25 10:34 Freq: Status: Active Protocol: Activity Type Activity Date Activity User E-sign Co-sign Detail Recorded Client Recorded Date Recorded By Document 01/10/25 10:58 CP [id number] 01/10/25 11:00 CP 01/10/25 10:58 Wound Care Center Nurse 3 #9 coccyx -Ulcer Cleansing Rinsed/ Irrigated with Saline -Foul Odor after Cleansing No -Primary Dressing Applied Promogran, Silicone Border Foam 4x4 -Other Dressing adaptic -Promogran 1 -Silicone Border Foam 4x4 1 Pain Scale: 0-10 Numeric Is Patient Pain Free? Yes WC - Visit Discharge Discharge Condition Stable Ambulatory Status Wheelchair Transportation Private Auto Clinical Summary of Care Provided Yes Assessment/Plan Assessment/Plan (1) Pressure ulcer of sacral region, stage 3: CODE(S): L89.153 - Pressure ulcer of sacral region, stage 3 (2) Spina bifida: CODE(S): Q05.9 - Spina bifida, unspecified PLAN: Plan Debridement done as documented above, procedure was well-tolerated. Some improvement noted. Area of erythema noted at last visit has improved/resolved. New undermining however appreciated. Due to restrictions at the long term we will switch from Promogran to Fibracol. This is not classified as a "debriding agent. Cover with Adaptic and foam dressing. Currently applying bacitracin which is an old order that she had, they were advised that they reach out to her prescribing practitioner and to have this discontinued. Change dressing when soiled. Complete cefdinir. Continue offloading and reposition often. Optimal protein intake. Their questions were answered and they were advised to let us know if they had any further questions or concerns. Follow-up in a week or sooner if needed. This note was generated with [employer] dictation software. It may contain incorrect words, spelling, and punctuation that were not noted in checking the note before signing.
--- NOTE | 2025-01-10 13:22 | WC ---
PHOTO-COCCYX 01/10/25
[2025-01-17 10:03] VITALS: BP 139/83; PULSE 100; RESP 18; TEMP 35.8
--- NOTE | 2025-01-17 10:37 | PN.PCM_ITS ---
History of Present Illness Date of Service: 01/17/25 Chief Complaint: Sacral/Coccyx Ulcer History of Wound: Ms. Crews is a 49-year-old well-known to me. Recently discharged following healing of decubitus ulcers however, presents with a new sacral area ulcer. Said to have opened on Tuesday. 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 Had been off due to previous decubitus ulcers. Tuesday, new area of opening was noted. No chills, fever or feeling of unwell. Appetite is good. Progress of Wound: Switched to Fibracol at her last visit due to senior living restrictions and state laws. Caregiver states that dressing changes have been done consistently and no concerns reported at this time. Objective Data Objective Data Vital Signs: Vital Signs Temp Pulse Resp BP O2 Del Method 96.4 F L 100 18 139/83 H Room Air 01/17/25 10:03 01/17/25 10:03 01/17/25 10:03 01/17/25 10:03 01/17/25 10:03 Oxygen Delivery Method Room Air Charges/Coding Procedures Integumentary 111xxx-113xx: [id number] Sherlyn subq tissue 20 sq cm/< Physical Exam Const alert, oriented x3 and no apparent distress General Appearance: cooperative and well kempt HEENT normocephalic and hearing grossly normal bilaterally Head and Scalp: normal to inspection and atraumatic Neck full ROM and supple Resp normal respiratory effort and normal air movement Effort and Inspection: able to speak in complete sentences Skin Wounds: wounds noted size Size: See clinical note, bed granulating well and with slough, no odor, open and surrounding erythema Neuro oriented x3 and CN's II-XII intact bilaterally Psych mental status grossly normal, cooperative and affect normal Appearance: grossly normal Attitude: calm Speech: normal speech Debridement Note Debridement Note Wound debrided: Sacrum Wound Grade/Stage: Stage III Type of Debridement: Excisional debridement Anesthesia Used: 5% Lidocaine Gel Depth: Down to and including healthy tissue and in the subcutaneous layer Percentage of wound debrided: 100 Instrument Used: 3mm curette Tissue Removed: Slough and devitalized tissue Severity: Fat Layer Exposed Amount of bleeding with debridement: Mild Bleeding Controlled with: Pressure Patient tolerated procedure: Patient tolerated procedure well Post-Debridement Measurements and Additional Note: Post-Debridement Measurements/Treatment WC - Nurse 1 - General Ulcer Assessment Start: 01/10/25 10:34 Freq: Status: Active Protocol: TOBIN Activity Type Activity Date Activity User E-sign Co-sign Detail Recorded Client Recorded Date Recorded By Document 01/10/25 10:34 CP [id number] 01/10/25 10:39 CP Document 01/17/25 10:03 DS [id number] 01/17/25 10:05 DS 01/10/25 01/17/25 10:34 10:03 - Today's Visit Information Type of service Follow-up Visit Follow-up Visit (Physician/DIMENSIONAL INTEGRATION ENGINEER (Physician/DIMENSIONAL INTEGRATION ENGINEER ) ) Arrival Mode Wheelchair Wheelchair Transfer Assistance Manual Manual Transfer Assist (Other) 2 Accompanied by aides Patient Identification Verified (Name & Yes Yes ) Vital Signs Temperature (97.8 F-99.1 F) 97 F L 96.4 F L Temperature Source Temporal Temporal Pulse Rate (60-100) 92 100 Pulse Location Monitor Monitor Respiratory Rate (12-18) 16 18 Respiratory rate source Observation Observation Oxygen Delivery Method Room Air Blood Pressure (90/60-120/80) 122/85 H 139/83 H Blood Pressure Mean (mm Hg) 97 101 Source Monitor Monitor Position Semi-Fowlers Semi-Fowlers Blood Pressure Location Left Forearm Left Forearm History Since Last Visit- (Skip if this is Patient's initial visit) Have you changed medications since your No No last visit? Any new allergies or adverse reactions No No Had a fall/change in ADL's that may No No increase risk of falls Signs or symptoms of abuse and/or No No neglect since last visit Have you been in the hospital since your No No last visit? Has dressing in place as prescribed Yes Yes Has compression in place as prescribed N/A N/A Has offloadiing in place as prescribed N/A N/A Experienced any changes in pain level or No No management Pain Scale: 0-10 Numeric Is Patient Pain Free? Yes Yes - Nurse 1 - General Ulcer Measurement Start: 01/10/25 10:34 Freq: Status: Active Protocol: Activity Type Activity Date Activity User E-sign Co-sign Detail Recorded Client Recorded Date Recorded By Document 01/10/25 10:34 CP [id number] 01/10/25 10:39 CP Document 01/17/25 10:05 DS [id number] 01/17/25 10:13 DS 01/10/25 01/17/25 10:34 10:05 Wound Center Nurse 1 #9 coccyx -Current Size (cm) - Length 0.7 0.9 -Current Size (cm) - Width 0.5 1.2 -Current Size (cm) - Depth 0.3 0.2 -Total Square Cm 0.35 1.08 -Date of Last Picture (Recall this 01/17/25 field) -Photo Taken Yes Yes -Tunneling No -Undermining/Tunneling No -Circular Undermining No -Exudate Amt Medium Small -Exudate Type Serosanguineous Serosanguineous -Wound Margin Flat & Intact Distinct, Outline Attached -Granulation Amt Large (67-100%) Small (1-33%) -Granulation Quality [place] -Slough/Fibrin No -Necrosis Amt Medium (34-66%) -Necrotic Tissue Type Adherent Slough -Structure Exposed N/A -Texture (Patience-wound Skin Appearance) No Abnormality Assessed -Moisture (Patience-wound Skin Appearance) No Abnormality Assessed -Color (Patience-wound Skin Appearance) No Abnormality Assessed -Temperature (Patience-wound Skin No Abnormality No Abnormality Appearance) (Pt Warm) (Pt Warm) -Tenderness on Palpation (Patience-wound No No Skin Appearance) -Ulcer Cleansing Soap and Water Soap and Water -Foul Odor after Cleansing No No -Anesthetic Used 5% Lidocaine 5% Lidocaine Gel Gel WC - Nurse 2 - General Ulcer CM Notes Start: 01/10/25 10:34 Freq: Status: Active Protocol: Activity Type Activity Date Activity User E-sign Co-sign Detail Recorded Client Recorded Date Recorded By Document 01/10/25 10:47 [id number] 01/10/25 10:53 Document 01/17/25 10:23 [id number] 01/17/25 10:30 01/10/25 01/17/25 10:47 10:23 Wound Center Nurse 2 #9 coccyx -Time 10:47 10:24 -Correct Patient Yes Yes -Correct Side, Site, Position Yes Yes -Correct Procedure Yes Yes -Procedure Performed Yes Yes -Type of Procedure Debridement Debridement -Clinical Debridement Subcutaneous Subcutaneous -Tissue Removed Subcutaneous Subcutaneous -Post Debridement (cm) - Length 0.5 0.7 -Post Debridement (cm) - Width 0.9 0.5 -Post Debridement (cm) - Depth 0.6 0.4 -Total Square (Post) (cm) 0.45 0.35 -Area of Debridement (cm) - Length 0.5 0.7 -Area of Debridement (cm) - Width 0.9 0.5 -Total Square (Area) (cm) 0.45 0.35 -Tunneling No No -Undermining/Tunneling Yes Yes -Undermining/Tunneling Starts (O'clock 11 11 ) -Undermining/Tunneling Ends (O'clock) 2 2 -Maximum Distance (cm) 0.6 0.5 -Circular Undermining No No -Wound/Ulcer Outcome Not Healed Not Healed -Ulcer Cleansing Rinsed/ Rinsed/ Irrigated with Irrigated with Saline Saline -Foul Odor after Cleansing No No -Bioengineered Tissue No No -Bleeding Controlled with Pressure Pressure -Treatment Response Procedure Procedure Tolerated Well Tolerated Well -Offloading No No -Debridement - Subq, 1st 20sq cm Yes Yes Pain Scale: 0-10 Numeric Is Patient Pain Free? Yes Yes - Nurse 3 - General Ulcer D/C NN Start: 01/10/25 10:34 Freq: Status: Active Protocol: Activity Type Activity Date Activity User E-sign Co-sign Detail Recorded Client Recorded Date Recorded By Document 01/10/25 10:58 CP [id number] 01/10/25 11:00 CP 01/10/25 10:58 Wound Care Center Nurse 3 #9 coccyx -Ulcer Cleansing Rinsed/ Irrigated with Saline -Foul Odor after Cleansing No -Primary Dressing Applied Promogran, Silicone Border Foam 4x4 -Other Dressing adaptic -Promogran 1 -Silicone Border Foam 4x4 1 Pain Scale: 0-10 Numeric Is Patient Pain Free? Yes - Visit Discharge Discharge Condition Stable Ambulatory Status Wheelchair Transportation Private Auto Clinical Summary of Care Provided Yes Assessment/Plan Assessment/Plan (1) Pressure ulcer of sacral region, stage 3: CODE(S): L89.153 - Pressure ulcer of sacral region, stage 3 (2) Spina bifida: CODE(S): Q05.9 - Spina bifida, unspecified PLAN: Plan Debridement done as documented above, procedure was well-tolerated. Improving. No new concerns reported or noted at this time. Continue Fibracol, cover with Adaptic and foam dressing. Change dressing daily or when soiled. Continue offloading and reposition often. Optimal protein intake. Their questions were answered and they were advised to let us know if they had any further questions or concerns. Follow-up in a week or sooner if needed. This note was generated with [employer] dictation software. It may contain incorrect words, spelling, and punctuation that were not noted in checking the note before signing.
--- NOTE | 2025-01-18 08:47 | WC ---
PHOTO-COCCYX 01/17/25
[2025-01-24 10:37] VITALS: BP 116/85; PULSE 110; RESP 18; TEMP 35.8
--- NOTE | 2025-01-24 12:25 | PN.PCM_ITS ---
History of Present Illness Date of Service: 01/24/25 Chief Complaint: Sacral/Coccyx Ulcer History of Wound: Ms. Crews is a 49-year-old well-known to me. Recently discharged following healing of decubitus ulcers however, presents with a new sacral area ulcer. Said to have opened on Tuesday. 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 Had been off due to previous decubitus ulcers. Tuesday, new area of opening was noted. No chills, fever or feeling of unwell. Appetite is good. Progress of Wound: Improving. No new concerns reported at this time. Objective Data Objective Data Vital Signs: Vital Signs Temp Pulse Resp BP O2 Del Method 96.4 F L 110 H 18 116/85 H Room Air 01/24/25 10:37 01/24/25 10:37 01/24/25 10:37 01/24/25 10:37 01/24/25 10:37 Oxygen Delivery Method Room Air Charges/Coding Procedures Integumentary 111xxx-113xx: 52730 Sherlyn subq tissue 20 sq cm/< Physical Exam Const alert, oriented x3 and no apparent distress General Appearance: cooperative and well kempt HEENT normocephalic and hearing grossly normal bilaterally Head and Scalp: normal to inspection and atraumatic Neck full ROM and supple Resp normal respiratory effort and normal air movement Effort and Inspection: able to speak in complete sentences Skin Wounds: wounds noted size Size: See clinical note, bed granulating well, no odor and open Neuro oriented x3 and CN's II-XII intact bilaterally Psych mental status grossly normal, cooperative and affect normal Appearance: grossly normal Attitude: calm Speech: normal speech Debridement Note Debridement Note Wound debrided: sacrum Wound Grade/Stage: Stage III Type of Debridement: Excisional debridement Anesthesia Used: 5% Lidocaine Gel Depth: Down to and including healthy tissue and in the subcutaneous layer Percentage of wound debrided: 100 Instrument Used: 3mm curette Tissue Removed: Devitalized tissue Severity: Fat Layer Exposed Amount of bleeding with debridement: Mild Bleeding Controlled with: Pressure Patient tolerated procedure: Patient tolerated procedure well Post-Debridement Measurements and Additional Note: Post-Debridement Measurements/Treatment JESSICA - Nurse 1 - General Ulcer Assessment Start: 01/10/25 10:34 Freq: Status: Active Protocol: TOBIN Activity Type Activity Date Activity User E-sign Co-sign Detail Recorded Client Recorded Date Recorded By Document 01/10/25 10:34 CP [id number] 01/10/25 10:39 CP Document 01/17/25 10:03 DS [id number] 01/17/25 10:05 DS Document 01/24/25 10:37 DS [id number] 01/24/25 10:48 DS 01/10/25 01/17/25 01/24/25 10:34 10:03 10:37 WC - Today's Visit Information Type of service Follow-up Visit Follow-up Visit Follow-up Visit (Physician/PROFESSOR OF LITERATURE (Physician/PROFESSOR OF LITERATURE (Physician/PROFESSOR OF LITERATURE ) ) ) Arrival Mode Wheelchair Wheelchair Wheelchair Transfer Assistance Manual Manual Manual Transfer Assist (Other) 2 Accompanied by aides aides Patient Identification Verified (Name & Yes Yes Yes ) Safety Precautions Fall Prevention Vital Signs Temperature (97.8 F-99.1 F) 97 F L 96.4 F L 96.4 F L Temperature Source Temporal Temporal Temporal Pulse Rate (60-100) 92 100 110 H Pulse Location Monitor Monitor Monitor Respiratory Rate (12-18) 16 18 18 Respiratory rate source Observation Observation Observation Oxygen Delivery Method Room Air Room Air Blood Pressure (90/60-120/80) 122/85 H 139/83 H 116/85 H Blood Pressure Mean (mm Hg) 97 101 95 Source Monitor Monitor Monitor Position Semi-Fowlers Semi-Fowlers Semi-Fowlers Blood Pressure Location Left Forearm Left Forearm Left Arm History Since Last Visit- (Skip if this is Patient's initial visit) Have you changed medications since your No No No last visit? Any new allergies or adverse reactions No No No Had a fall/change in ADL's that may No No No increase risk of falls Signs or symptoms of abuse and/or No No No neglect since last visit Have you been in the hospital since your No No No last visit? Has dressing in place as prescribed Yes Yes Yes Has compression in place as prescribed N/A N/A N/A Has offloadiing in place as prescribed N/A N/A N/A Experienced any changes in pain level or No No No management Left Footwear Regular Shoe Right Footwear Regular Shoe Pain Scale: 0-10 Numeric Is Patient Pain Free? Yes Yes Yes - Nurse 1 - General Ulcer Measurement Start: 01/10/25 10:34 Freq: Status: Active Protocol: Activity Type Activity Date Activity User E-sign Co-sign Detail Recorded Client Recorded Date Recorded By Document 01/10/25 10:34 CP [id number] 01/10/25 10:39 CP Document 01/17/25 10:05 DS [id number] 01/17/25 10:13 DS Document 01/24/25 10:37 DS [id number] 01/24/25 10:48 DS 01/10/25 01/17/25 01/24/25 10:34 10:05 10:37 Wound Center Nurse 1 #9 coccyx -Current Size (cm) - Length 0.7 0.9 0.4 -Current Size (cm) - Width 0.5 1.2 0.5 -Current Size (cm) - Depth 0.3 0.2 0.3 -Total Square Cm 0.35 1.08 0.20 -Date of Last Picture (Recall this 01/17/25 01/24/25 field) -Photo Taken Yes Yes Yes -Tunneling No No -Undermining/Tunneling No No -Circular Undermining No No -Exudate Amt Medium Small Medium -Exudate Type Serosanguineous Serosanguineous Serosanguineous -Wound Margin Flat & Intact Distinct, Outline Attached -Granulation Amt Large (67-100%) Small (1-33%) -Granulation Quality [place] -Slough/Fibrin No -Necrosis Amt Medium (34-66%) -Necrotic Tissue Type Adherent Slough -Structure Exposed N/A -Texture (Patience-wound Skin Appearance) No Abnormality Assessed Assessed -Moisture (Patience-wound Skin Appearance) No Abnormality Assessed Assessed, Maceration -Color (Patience-wound Skin Appearance) No Abnormality Assessed Assessed -Temperature (Patience-wound Skin No Abnormality No Abnormality No Abnormality Appearance) (Pt Warm) (Pt Warm) (Pt Warm) -Tenderness on Palpation (Patience-wound No No No Skin Appearance) -Ulcer Cleansing Soap and Water Soap and Water Rinsed/ Irrigated with Saline -Foul Odor after Cleansing No No No -Anesthetic Used 5% Lidocaine 5% Lidocaine 5% Lidocaine Gel Gel Gel WC - Nurse 2 - General Ulcer CM Notes Start: 01/10/25 10:34 Freq: Status: Active Protocol: Activity Type Activity Date Activity User E-sign Co-sign Detail Recorded Client Recorded Date Recorded By Document 01/10/25 10:47 GM [id number] 01/10/25 10:53 GM Document 01/17/25 10:23 GM [id number] 01/17/25 10:30 GM Document 01/24/25 11:05 GM [id number] 01/24/25 11:06 GM Edit Result 01/24/25 11:05 GM (1) [id number] 01/24/25 11:08 GM (1) #9 coccyx - Post Debridement (cm) - Length => 0.5 - Post Debridement (cm) - Width => 0.4 - Post Debridement (cm) - Depth => 0.2 - Total Square (Post) (cm) => 0.20 - Area of Debridement (cm) - Length => 0.5 - Area of Debridement (cm) - Width => 0.4 - Total Square (Area) (cm) => 0.20 01/10/25 01/17/25 01/24/25 10:47 10:23 11:05 Wound Center Nurse 2 #9 coccyx -Time 10:47 10:24 11:05 -Correct Patient Yes Yes Yes -Correct Side, Site, Position Yes Yes Yes -Correct Procedure Yes Yes Yes -Procedure Performed Yes Yes Yes -Type of Procedure Debridement Debridement Debridement -Clinical Debridement Subcutaneous Subcutaneous Subcutaneous -Tissue Removed Subcutaneous Subcutaneous Subcutaneous -Post Debridement (cm) - Length 0.5 0.7 0.5 -Post Debridement (cm) - Width 0.9 0.5 0.4 -Post Debridement (cm) - Depth 0.6 0.4 0.2 -Total Square (Post) (cm) 0.45 0.35 0.20 -Area of Debridement (cm) - Length 0.5 0.7 0.5 -Area of Debridement (cm) - Width 0.9 0.5 0.4 -Total Square (Area) (cm) 0.45 0.35 0.20 -Tunneling No No No -Undermining/Tunneling Yes Yes No -Undermining/Tunneling Starts (O'clock 11 11 ) -Undermining/Tunneling Ends (O'clock) 2 2 -Maximum Distance (cm) 0.6 0.5 -Circular Undermining No No No -Wound/Ulcer Outcome Not Healed Not Healed Not Healed -Ulcer Cleansing Rinsed/ Rinsed/ Rinsed/ Irrigated with Irrigated with Irrigated with Saline Saline Saline -Foul Odor after Cleansing No No No -Bioengineered Tissue No No No -Bleeding Controlled with Pressure Pressure Pressure -Treatment Response Procedure Procedure Procedure Tolerated Well Tolerated Well Tolerated Well -Offloading No No No -Debridement - Subq, 1st 20sq cm Yes Yes Yes Pain Scale: 0-10 Numeric Is Patient Pain Free? Yes Yes Yes - Nurse 3 - General Ulcer D/C NN Start: 01/10/25 10:34 Freq: Status: Active Protocol: Activity Type Activity Date Activity User E-sign Co-sign Detail Recorded Client Recorded Date Recorded By Document 01/10/25 10:58 CP [id number] 01/10/25 11:00 CP Document 01/17/25 10:53 KW [email or web address] 01/17/25 10:53 KW Document 01/24/25 11:26 RB [id number] 01/24/25 11:27 RB 01/10/25 01/17/25 01/24/25 10:58 10:53 11:26 Wound Care Center Nurse 3 #9 coccyx -Ulcer Cleansing Rinsed/ Rinsed/ Irrigated with Irrigated with Saline Saline -Foul Odor after Cleansing No -Primary Dressing Applied Promogran, Fibracol Plus Fibracol Plus Silicone Border 4x4,Silicone 4x4,NonAdherent Foam 4x4 Border Foam 4x4 Contact Layer, Silicone Border Foam 4x4 -Other Dressing adaptic -Fibracol Plus 4x4 1 1 -Promogran 1 -Silicone Border Foam 4x4 1 1 1 Treatment Response Procedure Tolerated Well Pain Scale: 0-10 Numeric Is Patient Pain Free? Yes Yes Yes - Visit Discharge Discharge Condition Stable Stable Stable Ambulatory Status Wheelchair Wheelchair Wheelchair Transportation Private Auto Private Auto Accompanied by home caregiver Medication Reconcilliation completed & No No provided to patient/care provider Clinical Summary of Care Provided Yes Yes Yes Assessment/Plan Assessment/Plan (1) Pressure ulcer of sacral region, stage 3: CODE(S): L89.153 - Pressure ulcer of sacral region, stage 3 (2) Spina bifida: CODE(S): Q05.9 - Spina bifida, unspecified PLAN: Plan Debridement done as documented above, procedure was well-tolerated. Continued improvement noted. No new concerns reported or noted at this time. Continue Fibracol, cover with Adaptic and foam dressing. Change dressing daily or when soiled. Continue offloading and reposition often. Optimal protein intake. Their questions were answered and they were advised to let us know if they had any further questions or concerns. Follow-up in a week or sooner if needed. This note was generated with [employer] software. It may contain incorrect words, spelling, and punctuation that were not noted in checking the note before signing.
--- NOTE | 2025-01-25 08:38 | WC ---
PHOTO-[email or web address] 01/24/25
--- NOTE | 2025-01-25 09:22 | WC ---
photo-COCCYX 01/24/25
[2025-01-31 10:03] VITALS: BP 115/86; PULSE 102; RESP 16; TEMP 36.4
--- NOTE | 2025-01-31 11:51 | PN.PCM_ITS ---
History of Present Illness Date of Service: 01/31/25 Chief Complaint: Sacral/Coccyx Ulcer History of Wound: Ms. Crews is a 49-year-old well-known to me. Recently discharged following healing of decubitus ulcers however, presents with a new sacral area ulcer. Said to have opened on Tuesday. 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 Had been off due to previous decubitus ulcers. Tuesday, new area of opening was noted. No chills, fever or feeling of unwell. Appetite is good. Progress of Wound: No acute concerns reported at this time, improving. Objective Data Objective Data Vital Signs: Vital Signs Temp Pulse Resp BP O2 Del Method 97.6 F L 102 H 16 115/86 H Room Air 01/31/25 10:03 01/31/25 10:03 01/31/25 10:03 01/31/25 10:03 01/31/25 10:03 Oxygen Delivery Method Room Air Charges/Coding Procedures Integumentary 111xxx-113xx: 84671 Sherlyn subq tissue 20 sq cm/< Physical Exam Const alert, oriented x3 and no apparent distress General Appearance: cooperative and well kempt HEENT normocephalic and hearing grossly normal bilaterally Head and Scalp: normal to inspection and atraumatic Neck full ROM and supple Resp normal respiratory effort Effort and Inspection: able to speak in complete sentences Skin Wounds: wounds noted size Size: See clinical note, bed granulating well, no odor and open Neuro oriented x3 and CN's II-XII intact bilaterally Psych mental status grossly normal, cooperative and affect normal Appearance: grossly normal Attitude: calm Speech: normal speech Debridement Note Debridement Note Wound debrided: Sacral Wound Grade/Stage: Stage III Type of Debridement: Excisional debridement Anesthesia Used: 5% Lidocaine Gel Depth: Down to and including healthy tissue and in the subcutaneous layer Percentage of wound debrided: 100 Instrument Used: 3mm curette Tissue Removed: Devitalized tissue Severity: Fat Layer Exposed Amount of bleeding with debridement: Mild Bleeding Controlled with: Pressure Patient tolerated procedure: Patient tolerated procedure well Post-Debridement Measurements and Additional Note: Post-Debridement Measurements/Treatment JESSICA - Nurse 1 - General Ulcer Assessment Start: 01/10/25 10:34 Freq: Status: Active Protocol: TOBIN Activity Type Activity Date Activity User E-sign Co-sign Detail Recorded Client Recorded Date Recorded By Document 01/10/25 10:34 CP [id number] 01/10/25 10:39 CP Document 01/17/25 10:03 DS [id number] 01/17/25 10:05 DS Document 01/24/25 10:37 DS [id number] 01/24/25 10:48 DS Document 01/31/25 10:03 DS [id number] 01/31/25 10:13 DS 01/10/25 01/17/25 01/24/25 10:34 10:03 10:37 WC - Today's Visit Information Type of service Follow-up Visit Follow-up Visit Follow-up Visit (Physician/FRINGING MACHINE OPERATOR (Physician/FRINGING MACHINE OPERATOR (Physician/FRINGING MACHINE OPERATOR ) ) ) Arrival Mode Wheelchair Wheelchair Wheelchair Transfer Assistance Manual Manual Manual Transfer Assist (Other) 2 Accompanied by aides aides Patient Identification Verified (Name & Yes Yes Yes ) Patient Requires Transmission-Based Precautions Safety Precautions Fall Prevention Vital Signs Temperature (97.8 F-99.1 F) 97 F L 96.4 F L 96.4 F L Temperature Source Temporal Temporal Temporal Pulse Rate (60-100) 92 100 110 H Pulse Location Monitor Monitor Monitor Respiratory Rate (12-18) 16 18 18 Respiratory rate source Observation Observation Observation Oxygen Delivery Method Room Air Room Air Blood Pressure (90/60-120/80) 122/85 H 139/83 H 116/85 H Blood Pressure Mean (mm Hg) 97 101 95 Source Monitor Monitor Monitor Position Semi-Fowlers Semi-Fowlers Semi-Fowlers Blood Pressure Location Left Forearm Left Forearm Left Arm History Since Last Visit- (Skip if this is Patient's initial visit) Have you changed medications since your No No No last visit? Any new allergies or adverse reactions No No No Had a fall/change in ADL's that may No No No increase risk of falls Signs or symptoms of abuse and/or No No No neglect since last visit Have you been in the hospital since your No No No last visit? Has dressing in place as prescribed Yes Yes Yes Has compression in place as prescribed N/A N/A N/A Has offloadiing in place as prescribed N/A N/A N/A Experienced any changes in pain level or No No No management Left Footwear Regular Shoe Right Footwear Regular Shoe Pain Scale: 0-10 Numeric Is Patient Pain Free? Yes Yes Yes 01/31/25 10:03 - Today's Visit Information Type of service Follow-up Visit (Physician/FRINGING MACHINE OPERATOR ) Arrival Mode Wheelchair Transfer Assistance Manual Transfer Assist (Other) Accompanied by AIDES X2 Patient Identification Verified (Name & Yes ) Patient Requires Transmission-Based No Precautions Safety Precautions Fall Prevention Vital Signs Temperature (97.8 F-99.1 F) 97.6 F L Temperature Source Temporal Pulse Rate (60-100) 102 H Pulse Location Monitor Respiratory Rate (12-18) 16 Respiratory rate source Observation Oxygen Delivery Method Room Air Blood Pressure (90/60-120/80) 115/86 H Blood Pressure Mean (mm Hg) 95 Source Monitor Position Semi-Fowlers Blood Pressure Location Right Arm History Since Last Visit- (Skip if this is Patient's initial visit) Have you changed medications since your No last visit? Any new allergies or adverse reactions No Had a fall/change in ADL's that may No increase risk of falls Signs or symptoms of abuse and/or No neglect since last visit Have you been in the hospital since your No last visit? Has dressing in place as prescribed Yes Has compression in place as prescribed N/A Has offloadiing in place as prescribed N/A Experienced any changes in pain level or No management Left Footwear Regular Shoe Right Footwear Regular Shoe Pain Scale: 0-10 Numeric Is Patient Pain Free? Yes - Nurse 1 - General Ulcer Measurement Start: 01/10/25 10:34 Freq: Status: Active Protocol: Activity Type Activity Date Activity User E-sign Co-sign Detail Recorded Client Recorded Date Recorded By Document 01/10/25 10:34 CP [id number] 01/10/25 10:39 CP Document 01/17/25 10:05 DS [id number] 01/17/25 10:13 DS Document 01/24/25 10:37 DS [id number] 01/24/25 10:48 DS Document 01/31/25 10:03 DS [id number] 01/31/25 10:13 DS 01/10/25 01/17/25 01/24/25 10:34 10:05 10:37 Wound Center Nurse 1 #9 coccyx -Current Size (cm) - Length 0.7 0.9 0.4 -Current Size (cm) - Width 0.5 1.2 0.5 -Current Size (cm) - Depth 0.3 0.2 0.3 -Total Square Cm 0.35 1.08 0.20 -Date of Last Picture (Recall this 01/17/25 01/24/25 field) -Photo Taken Yes Yes Yes -Tunneling No No -Undermining/Tunneling No No -Circular Undermining No No -Exudate Amt Medium Small Medium -Exudate Type Serosanguineous Serosanguineous Serosanguineous -Wound Margin Flat & Intact Distinct, Outline Attached -Granulation Amt Large (67-100%) Small (1-33%) -Granulation Quality [place] -Slough/Fibrin No -Necrosis Amt Medium (34-66%) -Necrotic Tissue Type Adherent Slough -Structure Exposed N/A -Texture (Patience-wound Skin Appearance) No Abnormality Assessed Assessed -Moisture (Patience-wound Skin Appearance) No Abnormality Assessed Assessed, Maceration -Color (Patience-wound Skin Appearance) No Abnormality Assessed Assessed -Temperature (Patience-wound Skin No Abnormality No Abnormality No Abnormality Appearance) (Pt Warm) (Pt Warm) (Pt Warm) -Tenderness on Palpation (Patience-wound No No No Skin Appearance) -Ulcer Cleansing Soap and Water Soap and Water Rinsed/ Irrigated with Saline -Foul Odor after Cleansing No No No -Anesthetic Used 5% Lidocaine 5% Lidocaine 5% Lidocaine Gel Gel Gel 01/31/25 10:03 Wound Center Nurse 1 #9 coccyx -Current Size (cm) - Length 0.4 -Current Size (cm) - Width 0.3 -Current Size (cm) - Depth 0.1 -Total Square Cm 0.12 -Date of Last Picture (Recall this 01/31/25 field) -Photo Taken Yes -Tunneling No -Undermining/Tunneling No -Circular Undermining No -Exudate Amt None Present -Exudate Type -Wound Margin Distinct, Outline Attached -Granulation Amt Large (67-100%) -Granulation Quality [place] -Slough/Fibrin -Necrosis Amt -Necrotic Tissue Type -Structure Exposed -Texture (Patience-wound Skin Appearance) Assessed -Moisture (Patience-wound Skin Appearance) Assessed, Maceration -Color (Patience-wound Skin Appearance) Assessed -Temperature (Patience-wound Skin No Abnormality Appearance) (Pt Warm) -Tenderness on Palpation (Patience-wound No Skin Appearance) -Ulcer Cleansing Soap and Water -Foul Odor after Cleansing No -Anesthetic Used 5% Lidocaine Gel WC - Nurse 2 - General Ulcer CM Notes Start: 01/10/25 10:34 Freq: Status: Active Protocol: Activity Type Activity Date Activity User E-sign Co-sign Detail Recorded Client Recorded Date Recorded By Document 01/10/25 10:47 GM [id number] 01/10/25 10:53 GM Document 01/17/25 10:23 GM [id number] 01/17/25 10:30 GM Document 01/24/25 11:05 GM [id number] 01/24/25 11:06 GM Edit Result 01/24/25 11:05 GM (1) [id number] 01/24/25 11:08 GM Document 01/31/25 10:42 GM [id number] 01/31/25 10:44 GM (1) #9 coccyx - Post Debridement (cm) - Length => 0.5 - Post Debridement (cm) - Width => 0.4 - Post Debridement (cm) - Depth => 0.2 - Total Square (Post) (cm) => 0.20 - Area of Debridement (cm) - Length => 0.5 - Area of Debridement (cm) - Width => 0.4 - Total Square (Area) (cm) => 0.20 01/10/25 01/17/25 01/24/25 10:47 10:23 11:05 Wound Center Nurse 2 #9 coccyx -Time 10:47 10:24 11:05 -Correct Patient Yes Yes Yes -Correct Side, Site, Position Yes Yes Yes -Correct Procedure Yes Yes Yes -Procedure Performed Yes Yes Yes -Type of Procedure Debridement Debridement Debridement -Clinical Debridement Subcutaneous Subcutaneous Subcutaneous -Tissue Removed Subcutaneous Subcutaneous Subcutaneous -Post Debridement (cm) - Length 0.5 0.7 0.5 -Post Debridement (cm) - Width 0.9 0.5 0.4 -Post Debridement (cm) - Depth 0.6 0.4 0.2 -Total Square (Post) (cm) 0.45 0.35 0.20 -Area of Debridement (cm) - Length 0.5 0.7 0.5 -Area of Debridement (cm) - Width 0.9 0.5 0.4 -Total Square (Area) (cm) 0.45 0.35 0.20 -Tunneling No No No -Undermining/Tunneling Yes Yes No -Undermining/Tunneling Starts (O'clock 11 11 ) -Undermining/Tunneling Ends (O'clock) 2 2 -Maximum Distance (cm) 0.6 0.5 -Circular Undermining No No No -Wound/Ulcer Outcome Not Healed Not Healed Not Healed -Ulcer Cleansing Rinsed/ Rinsed/ Rinsed/ Irrigated with Irrigated with Irrigated with Saline Saline Saline -Foul Odor after Cleansing No No No -Bioengineered Tissue No No No -Bleeding Controlled with Pressure Pressure Pressure -Treatment Response Procedure Procedure Procedure Tolerated Well Tolerated Well Tolerated Well -Offloading No No No -Debridement - Subq, 1st 20sq cm Yes Yes Yes Pain Scale: 0-10 Numeric Is Patient Pain Free? Yes Yes Yes 01/31/25 10:42 Wound Center Nurse 2 #9 coccyx -Time 10:42 -Correct Patient Yes -Correct Side, Site, Position Yes -Correct Procedure Yes -Procedure Performed Yes -Type of Procedure Debridement -Clinical Debridement Subcutaneous -Tissue Removed Subcutaneous -Post Debridement (cm) - Length 0.4 -Post Debridement (cm) - Width 0.3 -Post Debridement (cm) - Depth 0.2 -Total Square (Post) (cm) 0.12 -Area of Debridement (cm) - Length 0.4 -Area of Debridement (cm) - Width 0.3 -Total Square (Area) (cm) 0.12 -Tunneling No -Undermining/Tunneling No -Undermining/Tunneling Starts (O'clock ) -Undermining/Tunneling Ends (O'clock) -Maximum Distance (cm) -Circular Undermining No -Wound/Ulcer Outcome Not Healed -Ulcer Cleansing Rinsed/ Irrigated with Saline -Foul Odor after Cleansing No -Bioengineered Tissue No -Bleeding Controlled with Pressure -Treatment Response Procedure Tolerated Well -Offloading No -Debridement - Subq, 1st 20sq cm Yes Pain Scale: 0-10 Numeric Is Patient Pain Free? Yes WC - Nurse 3 - General Ulcer D/C NN Start: 01/10/25 10:34 Freq: Status: Active Protocol: Activity Type Activity Date Activity User E-sign Co-sign Detail Recorded Client Recorded Date Recorded By Document 01/10/25 10:58 CP [id number] 01/10/25 11:00 CP Document 01/17/25 10:53 KW [id number] 01/17/25 10:53 KW Document 01/24/25 11:26 RB [id number] 01/24/25 11:27 RB Document 01/31/25 10:58 KW [id number] 01/31/25 10:59 KW 01/10/25 01/17/25 01/24/25 10:58 10:53 11:26 Wound Care Center Nurse 3 #9 coccyx -Ulcer Cleansing Rinsed/ Rinsed/ Irrigated with Irrigated with Saline Saline -Foul Odor after Cleansing No -Primary Dressing Applied Promogran, Fibracol Plus Fibracol Plus Silicone Border 4x4,Silicone 4x4,NonAdherent Foam 4x4 Border Foam 4x4 Contact Layer, Silicone Border Foam 4x4 -Other Dressing adaptic -Fibracol Plus 4x4 1 1 -Promogran 1 -Silicone Border Foam 4x4 1 1 1 -Silicone Border Foam 6x6 Treatment Response Procedure Tolerated Well Pain Scale: 0-10 Numeric Is Patient Pain Free? Yes Yes Yes WC - Visit Discharge Discharge Condition Stable Stable Stable Ambulatory Status Wheelchair Wheelchair Wheelchair Transportation Private Auto Private Auto Accompanied by home caregiver Medication Reconcilliation completed & No No provided to patient/care provider Clinical Summary of Care Provided Yes Yes Yes 01/31/25 10:58 Wound Care Center Nurse 3 #9 coccyx -Ulcer Cleansing -Foul Odor after Cleansing -Primary Dressing Applied Fibracol Plus 4x4,NonAdherent Contact Layer, Silicone Border Foam 6x6 -Other Dressing -Fibracol Plus 4x4 1 -Promogran -Silicone Border Foam 4x4 -Silicone Border Foam 6x6 1 Treatment Response Pain Scale: 0-10 Numeric Is Patient Pain Free? Yes WC - Visit Discharge Discharge Condition Stable Ambulatory Status Wheelchair Transportation Private Auto Accompanied by Medication Reconcilliation completed & No provided to patient/care provider Clinical Summary of Care Provided Yes Assessment/Plan Assessment/Plan (1) Pressure ulcer of sacral region, stage 3: CODE(S): L89.153 - Pressure ulcer of sacral region, stage 3 (2) Spina bifida: CODE(S): Q05.9 - Spina bifida, unspecified PLAN: Plan Debridement done as documented above, procedure was well-tolerated. Continued improvement noted. No new concerns reported or noted at this time. Continue Fibracol, cover with Adaptic and foam dressing. Change dressing daily or when soiled. Continue offloading and reposition often. Optimal protein intake. Their questions were answered and they were advised to let us know if they had any further questions or concerns. Follow-up in a week or sooner if needed. This note was generated with [employer] dictation software. It may contain incorrect words, spelling, and punctuation that were not noted in checking the note before signing.
--- NOTE | 2025-02-01 08:58 | WC ---
PHOTO-COCCYX 01/31/25
== END 2025-02-03 23:59 | disposition home or self-care (01) ==
LOC: WC 10:00
PROVIDERS: PCP Nurse Practitioner Family; Referring Provider Internal Medicine; Visit Provider Internal Medicine
DX: L89.153 Pressure ulcer of sacral region, stage 3 (principal); Q05.9 Spina bifida, unspecified
CPT/HCPCS: 11042

== ENCOUNTER 2025-02-21 10:30 | Outpatient (RCR) | payer MEDICARE, MEDICAID, SELFPAY ==
[2025-02-07 10:42] VITALS: BP 97/72; PULSE 106; RESP 18; TEMP 36.6
--- NOTE | 2025-02-07 12:21 | PN.PCM_ITS ---
History of Present Illness Date of Service: 02/07/25 Chief Complaint: Sacral/Coccyx Ulcer History of Wound: Ms. Crews is a 49-year-old well-known to me. Recently discharged following healing of decubitus ulcers however, presents with a new sacral area ulcer. Said to have opened on Tuesday. 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 Had been off due to previous decubitus ulcers. Tuesday, new area of opening was noted. No chills, fever or feeling of unwell. Appetite is good. Progress of Wound: Worsening and increased periwound/ulcer maceration noted today. Caregiver states that in the past week she has had some concerns with her suprapubic catheter and subsequently had more wetness. No other acute concerns reported. Feels well otherwise. Objective Data Objective Data Vital Signs: Vital Signs Temp Pulse Resp BP O2 Del Method 98 F 106 H 18 97/72 Room Air 02/07/25 10:42 02/07/25 10:42 02/07/25 10:42 02/07/25 10:42 02/07/25 10:42 Oxygen Delivery Method Room Air Charges/Coding Procedures Integumentary 111xxx-113xx: 59588 Sherlyn subq tissue 20 sq cm/< Physical Exam Const alert, oriented x3 and no apparent distress General Appearance: cooperative and well kempt HEENT normocephalic and hearing grossly normal bilaterally Head and Scalp: normal to inspection and atraumatic Neck full ROM and supple Resp normal respiratory effort Effort and Inspection: able to speak in complete sentences Skin Wounds: wounds noted size Size: See clinical note, bed granulating well, margins macerated, no odor and open Neuro oriented x3 and CN's II-XII intact bilaterally Psych mental status grossly normal, cooperative and affect normal Appearance: grossly normal Attitude: calm Speech: normal speech Debridement Note Debridement Note Wound debrided: Sacral Type of Debridement: Excisional debridement Anesthesia Used: 5% Lidocaine Gel Depth: Down to and including healthy tissue and in the subcutaneous layer Percentage of wound debrided: 100 Instrument Used: 5mm curette Tissue Removed: Slough and devitalized tissue Severity: Fat Layer Exposed Amount of bleeding with debridement: Mild Bleeding Controlled with: Pressure Patient tolerated procedure: Patient tolerated procedure well Post-Debridement Measurements and Additional Note: Post-Debridement Measurements/Treatment WC - Nurse 1 - General Ulcer Assessment Start: 02/07/25 10:42 Freq: Status: Active Protocol: WC.BIBIANA Activity Type Activity Date Activity User E-sign Co-sign Detail Recorded Client Recorded Date Recorded By Document 02/07/25 10:42 [place] [id number] 02/07/25 10:50 IL 02/07/25 10:42 - Today's Visit Information Type of service Follow-up Visit (Physician/MODEL DRESSER ) Arrival Mode Wheelchair Accompanied by AIDS Patient Identification Verified (Name & Yes ) Safety Precautions Fall Prevention Vital Signs Temperature (97.8 F-99.1 F) 98 F Temperature Source Temporal Pulse Rate (60-100) 106 H Pulse Location Monitor Respiratory Rate (12-18) 18 Respiratory rate source Observation Oxygen Delivery Method Room Air Blood Pressure (90/60-120/80) 97/72 Blood Pressure Mean (mm Hg) 80 Source Monitor Position Sitting Blood Pressure Location Right Arm History Since Last Visit- (Skip if this is Patient's initial visit) Has dressing in place as prescribed Yes Has compression in place as prescribed Yes Has offloadiing in place as prescribed Yes Experienced any changes in pain level or Yes management Left Footwear Regular Shoe Right Footwear Regular Shoe Pain Scale: 0-10 Numeric Is Patient Pain Free? Yes - Nurse 1 - General Ulcer Measurement Start: 02/07/25 10:42 Freq: Status: Active Protocol: Activity Type Activity Date Activity User E-sign Co-sign Detail Recorded Client Recorded Date Recorded By Document 02/07/25 10:42 [place] [id number] 02/07/25 10:50 [place] 02/07/25 10:42 Wound Center Nurse 1 #9 coccyx -Current Size (cm) - Length 0.7 -Current Size (cm) - Width 0.4 -Current Size (cm) - Depth 0.1 -Total Square Cm 0.28 -Date of Last Picture (Recall this 02/07/25 field) -Photo Taken Yes -Tunneling No -Undermining/Tunneling No -Circular Undermining No -Exudate Amt Medium -Exudate Type Serous -Wound Margin Thickened & Rolled Under -Granulation Amt Large (67-100%) -Granulation Quality [place] -Slough/Fibrin No -Texture (Patience-wound Skin Appearance) Assessed -Moisture (Patience-wound Skin Appearance) Assessed -Color (Patience-wound Skin Appearance) Assessed -Temperature (Patience-wound Skin No Abnormality Appearance) (Pt Warm) -Tenderness on Palpation (Patience-wound No Skin Appearance) -Ulcer Cleansing Soap and Water -Foul Odor after Cleansing No -Anesthetic Used 5% Lidocaine Gel Lower Limb Edema Present NA - Nurse 2 - General Ulcer CM Notes Start: 02/07/25 10:42 Freq: Status: Active Protocol: Activity Type Activity Date Activity User E-sign Co-sign Detail Recorded Client Recorded Date Recorded By Document 02/07/25 11:14 [id number] 02/07/25 11:16 02/07/25 11:14 Wound Center Nurse 2 #9 coccyx -Time 11:15 -Correct Patient Yes -Correct Side, Site, Position Yes -Correct Procedure Yes -Procedure Performed Yes -Type of Procedure Debridement -Clinical Debridement Subcutaneous -Tissue Removed Subcutaneous -Post Debridement (cm) - Length 1.0 -Post Debridement (cm) - Width 0.3 -Post Debridement (cm) - Depth 0.2 -Total Square (Post) (cm) 0.30 -Area of Debridement (cm) - Length 1.0 -Area of Debridement (cm) - Width 0.3 -Total Square (Area) (cm) 0.30 -Tunneling No -Undermining/Tunneling No -Circular Undermining No -Wound/Ulcer Outcome Not Healed -Ulcer Cleansing Rinsed/ Irrigated with Saline -Foul Odor after Cleansing No -Bioengineered Tissue No -Bleeding Controlled with Pressure -Treatment Response Procedure Tolerated Well -Offloading No -Debridement - Subq, 1st 20sq cm Yes Pain Scale: 0-10 Numeric Is Patient Pain Free? Yes - Nurse 3 - General Ulcer D/C NN Start: 02/07/25 10:42 Freq: Status: Active Protocol: Activity Type Activity Date Activity User E-sign Co-sign Detail Recorded Client Recorded Date Recorded By Document 02/07/25 11:33 DL [id number] 02/07/25 11:34 02/07/25 11:33 Wound Care Center Nurse 3 #9 coccyx -Ulcer Cleansing Rinsed/ Irrigated with Saline -Foul Odor after Cleansing No -Primary Dressing Applied Fibracol Plus 4x4,Silicone Border Foam 6x6 -Fibracol Plus 4x4 1 -Silicone Border Foam 6x6 1 Treatment Response Procedure Tolerated Well Pain Scale: 0-10 Numeric Is Patient Pain Free? Yes WC - Visit Discharge Discharge Condition Stable Ambulatory Status Wheelchair Transportation Private Auto Facility Type Hospital Administrative Assistant Care Facility Orders Sent Yes Assessment/Plan Assessment/Plan (1) Pressure ulcer of sacral region, stage 3: CODE(S): L89.153 - Pressure ulcer of sacral region, stage 3 (2) Spina bifida: CODE(S): Q05.9 - Spina bifida, unspecified PLAN: Plan Debridement done as documented above, procedure was well-tolerated. As above, some worsening noted. Concern for increased moisture to the area due to problems with suprapubic catheter. Caregiver states that she has an appointment with her urologist shortly. Continue Fibracol and foam dressing, change at le ast twice daily. Continue offloading and reposition often. Optimal protein intake. Their questions were answered and they were advised to let us know if they had any further questions or concerns. Follow-up in a week or sooner if needed. This note was generated with [employer] dictation software. It may contain incorrect words, spelling, and punctuation that were not noted in checking the note before signing.
--- NOTE | 2025-02-07 13:29 | WC ---
[id number] 02/07/25
--- NOTE | 2025-02-14 13:09 | PN.PCM_ITS ---
History of Present Illness Date of Service: 02/14/25 Chief Complaint: Sacral/Coccyx Ulcer History of Wound: Ms. Crews is a 49-year-old well-known to me. Recently discharged following healing of decubitus ulcers however, presents with a new sacral area ulcer. Said to have opened on Tuesday. 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 Had been off due to previous decubitus ulcers. Tuesday, new area of opening was noted. No chills, fever or feeling of unwell. Appetite is good. Progress of Wound: No acute concerns at this time. Some improvement noted since her last visit. Caregiver states that concerns with suprapubic catheter have been resolved. Resulting in more periods of staying staying dry. No new concerns reported otherwise. Objective Data Objective Data Vital Signs: Vital Signs Temp Pulse Resp BP O2 Del Method 98 F 106 H 18 97/72 Room Air 02/07/25 10:42 02/07/25 10:42 02/07/25 10:42 02/07/25 10:42 02/07/25 10:42 Oxygen Delivery Method Room Air Charges/Coding Procedures Integumentary 111xxx-113xx: 04249 Sherlyn subq tissue 20 sq cm/< Physical Exam Const alert, oriented x3 and no apparent distress General Appearance: cooperative and well kempt HEENT normocephalic and hearing grossly normal bilaterally Head and Scalp: normal to inspection and atraumatic Neck full ROM and supple Resp normal respiratory effort Effort and Inspection: able to speak in complete sentences Skin Wounds: wounds noted size Size: See clinical note, bed granulating well, margins well approximated, no odor and open Neuro oriented x3 and CN's II-XII intact bilaterally Psych mental status grossly normal, cooperative and affect normal Appearance: grossly normal Attitude: calm Speech: normal speech Debridement Note Debridement Note Wound debrided: Sacrum Type of Debridement: Excisional debridement Anesthesia Used: 5% Lidocaine Gel Depth: Down to and including healthy tissue and in the subcutaneous layer Percentage of wound debrided: 100 Instrument Used: - (1mm) Tissue Removed: Slough and devitalized tissue Severity: Fat Layer Exposed Amount of bleeding with debridement: Mild Bleeding Controlled with: Pressure Patient tolerated procedure: Patient tolerated procedure well Post-Debridement Measurements and Additional Note: Post-Debridement Measurements/Treatment WC - Nurse 1 - General Ulcer Assessment Start: 02/07/25 10:42 Freq: Status: Active Protocol: TOBIN Activity Type Activity Date Activity User E-sign Co-sign Detail Recorded Client Recorded Date Recorded By Document 02/07/25 10:42 [place] [id number] 02/07/25 10:50 [place] Document 02/14/25 11:28 KW [id number] 02/14/25 11:33 KW 02/07/25 02/14/25 10:42 11:28 - Today's Visit Information Type of service Follow-up Visit Follow-up Visit (Physician/WATER CONTROL SUPERVISOR (Physician/WATER CONTROL SUPERVISOR ) ) Arrival Mode Wheelchair Wheelchair Accompanied by AIDS CARE TAKERS Patient Identification Verified (Name & Yes Yes ) Safety Precautions Fall Prevention Vital Signs Temperature (97.8 F-99.1 F) 98 F Temperature Source Temporal Pulse Rate (60-100) 106 H Pulse Location Monitor Respiratory Rate (12-18) 18 Respiratory rate source Observation Oxygen Delivery Method Room Air Blood Pressure (90/60-120/80) 97/72 Blood Pressure Mean (mm Hg) 80 Source Monitor Position Sitting Blood Pressure Location Right Arm History Since Last Visit- (Skip if this is Patient's initial visit) Have you changed medications since your No last visit? Any new allergies or adverse reactions No Had a fall/change in ADL's that may No increase risk of falls Signs or symptoms of abuse and/or No neglect since last visit Have you been in the hospital since your No last visit? Has dressing in place as prescribed Yes Yes Has compression in place as prescribed Yes N/A Has offloadiing in place as prescribed Yes N/A Experienced any changes in pain level or Yes No management Left Footwear Regular Shoe Slipper Right Footwear Regular Shoe Slipper Pain Scale: 0-10 Numeric Is Patient Pain Free? Yes Yes - Nurse 1 - General Ulcer Measurement Start: 02/07/25 10:42 Freq: Status: Active Protocol: Activity Type Activity Date Activity User E-sign Co-sign Detail Recorded Client Recorded Date Recorded By Document 02/07/25 10:42 [place] [id number] 02/07/25 10:50 [place] Document 02/14/25 11:28 KW [id number] 02/14/25 11:33 02/07/25 02/14/25 10:42 11:28 Wound Center Nurse 1 #9 coccyx -Current Size (cm) - Length 0.7 0.2 -Current Size (cm) - Width 0.4 0.2 -Current Size (cm) - Depth 0.1 0.1 -Total Square Cm 0.28 0.04 -Date of Last Picture (Recall this 02/07/25 field) -Photo Taken Yes -Tunneling No -Undermining/Tunneling No -Circular Undermining No -Exudate Amt Medium Small -Exudate Type Serous Serosanguineous -Wound Margin Thickened & Distinct, Rolled Under Outline Attached -Granulation Amt Large (67-100%) Large (67-100%) -Granulation Quality Pale,[place] Red -Slough/Fibrin No -Necrosis Amt Small (1-33%) -Necrotic Tissue Type Adherent Slough -Texture (Patience-wound Skin Appearance) Assessed Assessed -Moisture (Patience-wound Skin Appearance) Assessed Maceration -Color (Patience-wound Skin Appearance) Assessed Assessed -Temperature (Patience-wound Skin No Abnormality No Abnormality Appearance) (Pt Warm) (Pt Warm) -Tenderness on Palpation (Patience-wound No No Skin Appearance) -Ulcer Cleansing Soap and Water Soap and Water -Foul Odor after Cleansing No No -Anesthetic Used 5% Lidocaine 5% Lidocaine Gel Gel Lower Limb Edema Present NA WC - Nurse 2 - General Ulcer CM Notes Start: 02/07/25 10:42 Freq: Status: Active Protocol: Activity Type Activity Date Activity User E-sign Co-sign Detail Recorded Client Recorded Date Recorded By Document 02/07/25 11:14 [id number] 02/07/25 11:16 Document 02/14/25 11:52 [id number] 02/14/25 11:54 02/07/25 02/14/25 11:14 11:52 Wound Center Nurse 2 #9 coccyx -Time 11:15 11:52 -Correct Patient Yes Yes -Correct Side, Site, Position Yes Yes -Correct Procedure Yes Yes -Procedure Performed Yes Yes -Type of Procedure Debridement Debridement -Clinical Debridement Subcutaneous Subcutaneous -Tissue Removed Subcutaneous Subcutaneous -Post Debridement (cm) - Length 1.0 0.4 -Post Debridement (cm) - Width 0.3 0.2 -Post Debridement (cm) - Depth 0.2 0.1 -Total Square (Post) (cm) 0.30 0.08 -Area of Debridement (cm) - Length 1.0 0.4 -Area of Debridement (cm) - Width 0.3 0.2 -Total Square (Area) (cm) 0.30 0.08 -Tunneling No No -Undermining/Tunneling No No -Circular Undermining No No -Wound/Ulcer Outcome Not Healed Not Healed -Ulcer Cleansing Rinsed/ Rinsed/ Irrigated with Irrigated with Saline Saline -Foul Odor after Cleansing No No -Bioengineered Tissue No No -Bleeding Controlled with Pressure Pressure -Treatment Response Procedure Procedure Tolerated Well Tolerated Well -Offloading No No -Debridement - Subq, 1st 20sq cm Yes Yes Pain Scale: 0-10 Numeric Is Patient Pain Free? Yes Yes - Nurse 3 - General Ulcer D/C NN Start: 02/07/25 10:42 Freq: Status: Active Protocol: Activity Type Activity Date Activity User E-sign Co-sign Detail Recorded Client Recorded Date Recorded By Document 02/07/25 11:33 DL [id number] 02/07/25 11:34 DL 02/07/25 11:33 Wound Care Center Nurse 3 #9 coccyx -Ulcer Cleansing Rinsed/ Irrigated with Saline -Foul Odor after Cleansing No -Primary Dressing Applied Fibracol Plus 4x4,Silicone Border Foam 6x6 -Fibracol Plus 4x4 1 -Silicone Border Foam 6x6 1 Treatment Response Procedure Tolerated Well Pain Scale: 0-10 Numeric Is Patient Pain Free? Yes WC - Visit Discharge Discharge Condition Stable Ambulatory Status Wheelchair Transportation Private [facility] Facility Type Assisted Care Facility Orders Sent Yes Assessment/Plan Assessment/Plan (1) Pressure ulcer of sacral region, stage 3: CODE(S): L89.153 - Pressure ulcer of sacral region, stage 3 (2) Spina bifida: CODE(S): Q05.9 - Spina bifida, unspecified PLAN: Plan Debridement done as documented above, procedure was well-tolerated. Good improvement noted since her last visit. 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 Continue Fibracol and foam dressing, change at least twice daily. Continue offloading and reposition often. Optimal protein intake. Their questions were answered and they were advised to let us know if they had any further questions or concerns. Follow-up in a week or sooner if needed. This note was generated with [employer] software. It may contain incorrect words, spelling, and punctuation that were not noted in checking the note before signing.
--- NOTE | 2025-02-18 15:55 | WC ---
received call from speech therapist - Vineet - requesting 6 visits for dificulty swallowing. Called Vineet back and informed him Dr. Kinney only sees for the wound and that he would need to speak to pts PCP Kelsey Toure VENEER GRADER -
[2025-02-21 10:53] VITALS: BP 135/85; PULSE 99; RESP 18; TEMP 36.6
--- NOTE | 2025-02-21 11:35 | PCM.WC.PN ---
History of Present Illness Date of Service: 02/21/25 Chief Complaint: Sacral/Coccyx Ulcer History of Wound: Ms. Crews is a 49-year-old well-known to me. Recently discharged following healing of decubitus ulcers however, presents with a new sacral area ulcer. Said to have opened on Tuesday. 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 Had been off due to previous decubitus ulcers. Tuesday, new area of opening was noted. No chills, fever or feeling of unwell. Appetite is good. Progress of Wound: No acute concerns at this time. Essentially healed/minimal area left. Objective Data Objective Data Vital Signs: Vital Signs Temp Pulse Resp BP O2 Del Method 97.8 F 99 18 135/85 H Room Air 02/21/25 10:53 02/21/25 10:53 02/21/25 10:53 02/21/25 10:53 02/21/25 10:53 Oxygen Delivery Method Room Air Charges/Coding Visit Charges Office Visits / Consults: 66076 OV L3 Est 20min Physical Exam Const alert, oriented x3 and no apparent distress General Appearance: cooperative and well kempt HEENT normocephalic and hearing grossly normal bilaterally Head and Scalp: normal to inspection and atraumatic Neck full ROM and supple Resp normal respiratory effort Effort and Inspection: able to speak in complete sentences Neuro oriented x3 and CN's II-XII intact bilaterally Psych mental status grossly normal, cooperative and affect normal Appearance: grossly normal Attitude: calm Speech: normal speech Debridement Note Debridement Note Post-Debridement Measurements and Additional Note: Post-Debridement Measurements/Treatment - Nurse 1 - General Ulcer Assessment Start: 02/07/25 10:42 Freq: Status: Active Protocol: [email or web address] Activity Type Activity Date Activity User E-sign Co-sign Detail Recorded Client Recorded Date Recorded By Document 02/07/25 10:42 MT [id number] 02/07/25 10:50 MT Document 02/14/25 11:28 KW [id number] 02/14/25 11:33 KW Document 02/21/25 10:53 KW [id number] 02/21/25 10:59 KW 02/07/25 02/14/25 02/21/25 10:42 11:28 10:53 - Today's Visit Information Type of service Follow-up Visit Follow-up Visit Follow-up Visit (Physician/HARBOR TUG CAPTAIN (Physician/HARBOR TUG CAPTAIN (Physician/HARBOR TUG CAPTAIN ) ) ) Arrival Mode Wheelchair Wheelchair Wheelchair Accompanied by AIDS CARE TAKERS caretakers Patient Identification Verified (Name & Yes Yes Yes ) Safety Precautions Fall Prevention Vital Signs Temperature (97.8 F-99.1 F) 98 F 97.8 F Temperature Source Temporal Temporal Pulse Rate (60-100) 106 H 99 Pulse Location Monitor Monitor Respiratory Rate (12-18) 18 18 Respiratory rate source Observation Observation Oxygen Delivery Method Room Air Room Air Blood Pressure (90/60-120/80) 97/72 135/85 H Blood Pressure Mean (mm Hg) 80 101 Source Monitor Monitor Position Sitting Sitting Blood Pressure Location Right Arm Left Arm History Since Last Visit- (Skip if this is Patient's initial visit) Have you changed medications since your No No last visit? Any new allergies or adverse reactions No No Had a fall/change in ADL's that may No No increase risk of falls Signs or symptoms of abuse and/or No No neglect since last visit Have you been in the hospital since your No No last visit? Has dressing in place as prescribed Yes Yes Yes Has compression in place as prescribed Yes N/A N/A Has offloadiing in place as prescribed Yes N/A N/A Experienced any changes in pain level or Yes No No management Left Footwear Regular Shoe Slipper Slipper Right Footwear Regular Shoe Slipper Slipper Pain Scale: 0-10 Numeric Is Patient Pain Free? Yes Yes Yes WC - Nurse 1 - General Ulcer Measurement Start: 02/07/25 10:42 Freq: Status: Active Protocol: Activity Type Activity Date Activity User E-sign Co-sign Detail Recorded Client Recorded Date Recorded By Document 02/07/25 10:42 MT [id number] 02/07/25 10:50 MT Document 02/14/25 11:28 KW [id number] 02/14/25 11:33 KW Document 02/21/25 10:53 KW [id number] 02/21/25 10:59 KW 02/07/25 02/14/25 02/21/25 10:42 11:28 10:53 Wound Center Nurse 1 #9 coccyx -Current Size (cm) - Length 0.7 0.2 0.1 -Current Size (cm) - Width 0.4 0.2 0.1 -Current Size (cm) - Depth 0.1 0.1 0 -Total Square Cm 0.28 0.04 0.01 -Date of Last Picture (Recall this 02/07/25 02/21/25 field) -Photo Taken Yes -Epithelialization Large 67-100% -Tunneling No -Undermining/Tunneling No -Circular Undermining No -Exudate Amt Medium Small None Present -Exudate Type Serous Serosanguineous -Wound Margin Thickened & Distinct, Rolled Under Outline Attached -Granulation Amt Large (67-100%) Large (67-100%) -Granulation Quality Pale,[place] Red -Slough/Fibrin No -Necrosis Amt Small (1-33%) -Necrotic Tissue Type Adherent Slough -Texture (Patience-wound Skin Appearance) Assessed Assessed Assessed -Moisture (Patience-wound Skin Appearance) Assessed Maceration Assessed -Color (Patience-wound Skin Appearance) Assessed Assessed Assessed -Temperature (Patience-wound Skin No Abnormality No Abnormality No Abnormality Appearance) (Pt Warm) (Pt Warm) (Pt Warm) -Tenderness on Palpation (Patience-wound No No No Skin Appearance) -Ulcer Cleansing Soap and Water Soap and Water Rinsed/ Irrigated with Saline -Foul Odor after Cleansing No No No -Anesthetic Used 5% Lidocaine 5% Lidocaine 5% Lidocaine Gel Gel Gel Lower Limb Edema Present NA WC - Nurse 2 - General Ulcer CM Notes Start: 02/07/25 10:42 Freq: Status: Active Protocol: Activity Type Activity Date Activity User E-sign Co-sign Detail Recorded Client Recorded Date Recorded By Document 02/07/25 11:14 [id number] 02/07/25 11:16 Document 02/14/25 11:52 [id number] 02/14/25 11:54 Document 02/21/25 11:05 [id number] 02/21/25 11:10 02/07/25 02/14/25 02/21/25 11:14 11:52 11:05 Wound Center Nurse 2 #9 coccyx -Time 11:15 11:52 11:09 -Correct Patient Yes Yes Yes -Correct Side, Site, Position Yes Yes Yes -Correct Procedure Yes Yes No -Procedure Performed Yes Yes No -Type of Procedure Debridement Debridement -Clinical Debridement Subcutaneous Subcutaneous -Tissue Removed Subcutaneous Subcutaneous -Post Debridement (cm) - Length 1.0 0.4 -Post Debridement (cm) - Width 0.3 0.2 -Post Debridement (cm) - Depth 0.2 0.1 -Total Square (Post) (cm) 0.30 0.08 -Area of Debridement (cm) - Length 1.0 0.4 -Area of Debridement (cm) - Width 0.3 0.2 -Total Square (Area) (cm) 0.30 0.08 -Tunneling No No No -Undermining/Tunneling No No No -Circular Undermining No No No -Wound/Ulcer Outcome Not Healed Not Healed Healed- Epithelialized -Ulcer Cleansing Rinsed/ Rinsed/ Rinsed/ Irrigated with Irrigated with Irrigated with Saline Saline Saline -Foul Odor after Cleansing No No No -Bioengineered Tissue No No No -Bleeding Controlled with Pressure Pressure -Treatment Response Procedure Procedure Tolerated Well Tolerated Well -Offloading No No -Debridement - Subq, 1st 20sq cm Yes Yes Pain Scale: 0-10 Numeric Is Patient Pain Free? Yes Yes Yes - Nurse 3 - General Ulcer D/C NN Start: 02/07/25 10:42 Freq: Status: Active Protocol: Activity Type Activity Date Activity User E-sign Co-sign Detail Recorded Client Recorded Date Recorded By Document 02/07/25 11:33 DL [id number] 02/07/25 11:34 DL Document 02/21/25 11:22 RB [id number] 02/21/25 11:22 RB 02/07/25 02/21/25 11:33 11:22 Wound Care Center Nurse 3 #9 coccyx -Ulcer Cleansing Rinsed/ Rinsed/ Irrigated with Irrigated with Saline Saline -Foul Odor after Cleansing No -Primary Dressing Applied Fibracol Plus Silicone Border 4x4,Silicone Foam 4x4 Border Foam 6x6 -Fibracol Plus 4x4 1 -Silicone Border Foam 4x4 1 -Silicone Border Foam 6x6 1 Treatment Response Procedure Procedure Tolerated Well Tolerated Well Pain Scale: 0-10 Numeric Is Patient Pain Free? Yes Yes - Visit Discharge Discharge Condition Stable Stable Ambulatory Status Wheelchair Wheelchair Transportation Private Auto Private Auto Accompanied by home aides Medication Reconcilliation completed & No provided to patient/care provider Clinical Summary of Care Provided Yes Facility Type [facility] Care Facility Orders Sent Yes Assessment/Plan Assessment/Plan (1) Pressure ulcer of sacral region, stage 3: CODE(S): L89.153 - Pressure ulcer of sacral region, stage 3 (2) Spina bifida: CODE(S): Q05.9 - Spina bifida, unspecified PLAN: Plan No debridement completed today. As above, essentially healed. Continue barrier dressing/Vaseline to buttock and sacral area with each change. Continue foam dressing to sacral area. Continue offloading and reposition often. Optimal protein intake. Their questions were answered and they were advised to let us know if they had any further questions or concerns. Follow-up in 2 weeks or sooner if needed. This note was generated with [employer] dictation software. It may contain incorrect words, spelling, and punctuation that were not noted in checking the note before signing.
--- NOTE | 2025-02-22 09:24 | WC ---
[id number]-COCCYX 02/21/25
--- NOTE | 2025-03-04 11:18 | WC ---
received call from Vineet pts [facility] - he was asking about severe interactions b/t oxybutynin and pot citrate and should there be any changes with it and also about pts low BP systalic 105. called Vineet back and left him a VM stating that Dr. Kinney only sees pt for wound care that he needs to call the pts PCP regarding any issues not related to the wound. I gave pts PCP information and phone number Kelsey Toure NP [phone]
== END 2025-03-05 23:59 | disposition home or self-care (01) ==
LOC: WC 10:30
PROVIDERS: PCP Nurse Practitioner Family; Referring Provider Internal Medicine; Visit Provider Internal Medicine
DX: L89.153 Pressure ulcer of sacral region, stage 3 (principal); Q05.9 Spina bifida, unspecified
CPT/HCPCS: 11042; 99213; G0463

== ENCOUNTER 2025-03-07 10:53 | Outpatient (RCR) | payer MEDICARE, MEDICAID, SELFPAY ==
[2025-03-07 11:23] VITALS: BP 116/82; PULSE 98; RESP 18; TEMP 36.6
--- NOTE | 2025-03-07 12:14 | PN.PCM_ITS ---
History of Present Illness Date of Service: 03/07/25 Chief Complaint: Sacral/Coccyx Ulcer History of Wound: Ms. Crews is a 49-year-old well-known to me. Recently discharged following healing of decubitus ulcers however, presents with a new sacral area ulcer. Said to have opened on Tuesday. 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 Had been off due to previous decubitus ulcers. Tuesday, new area of opening was noted. No chills, fever or feeling of unwell. Appetite is good. Progress of Wound: No new concerns at this time. Stays healed. Vaseline has been applied daily. Objective Data Objective Data Vital Signs: Vital Signs Temp Pulse Resp BP 97.8 F 98 18 116/82 H 03/07/25 11:23 03/07/25 11:23 03/07/25 11:23 03/07/25 11:23 Charges/Coding Visit Charges Office Visits / Consults: [id number] OV L3 Est 20min Physical Exam Const alert, oriented x3 and no apparent distress General Appearance: cooperative and well kempt HEENT normocephalic and hearing grossly normal bilaterally Head and Scalp: normal to inspection and atraumatic Neck full ROM and supple Resp normal respiratory effort Effort and Inspection: able to speak in complete sentences Neuro oriented x3 and CN's II-XII intact bilaterally Psych mental status grossly normal, cooperative and affect normal Appearance: grossly normal Attitude: calm Speech: normal speech Debridement Note Debridement Note Post-Debridement Measurements and Additional Note: Post-Debridement Measurements/Treatment JESSICA - Nurse 1 - General Ulcer Assessment Start: 03/07/25 11:23 Freq: Status: Active Protocol: TOBIN Activity Type Activity Date Activity User E-sign Co-sign Detail Recorded Client Recorded Date Recorded By Document 03/07/25 11:23 [email or web address] [id number] 03/07/25 11:24 RB 03/07/25 11:23 - Today's Visit Information Type of service Follow-up Visit (Physician/JOURNEYMAN OPERATOR ASSISTANT ) Arrival Mode Ambulatory Transfer Assistance None Patient Identification Verified (Name & Yes ) Patient Requires Transmission-Based No Precautions Vital Signs Temperature (97.8 F-99.1 F) 97.8 F Temperature Source Temporal Pulse Rate (60-100) 98 Pulse Location Monitor Respiratory Rate (12-18) 18 Respiratory rate source Observation Blood Pressure (90/60-120/80) 116/82 H Blood Pressure Mean (mm Hg) 93 Source Monitor Position Semi-Fowlers Blood Pressure Location Left Arm History Since Last Visit- (Skip if this is Patient's initial visit) Have you changed medications since your No last visit? Any new allergies or adverse reactions No Had a fall/change in ADL's that may No increase risk of falls Signs or symptoms of abuse and/or No neglect since last visit Have you been in the hospital since your No last visit? Has dressing in place as prescribed Yes Has compression in place as prescribed N/A Has offloadiing in place as prescribed Yes Experienced any changes in pain level or No management Pain Scale: 0-10 Numeric Is Patient Pain Free? Yes WC - Nurse 1 - General Ulcer Measurement Start: 03/07/25 11:23 Freq: Status: Active Protocol: Activity Type Activity Date Activity User E-sign Co-sign Detail Recorded Client Recorded Date Recorded By Document 03/07/25 11:23 RB [id number] 03/07/25 11:24 RB 03/07/25 11:23 Wound Center Nurse 1 #9 coccyx -Combined with other wound No -Current Size (cm) - Length 0 -Current Size (cm) - Width 0 -Current Size (cm) - Depth 0 -Total Square Cm 0 -Photo Taken Yes -Epithelialization Large 67-100% WC - Nurse 2 - General Ulcer CM Notes Start: 03/07/25 11:23 Freq: Status: Active Protocol: Activity Type Activity Date Activity User E-sign Co-sign Detail Recorded Client Recorded Date Recorded By Document 03/07/25 11:42 [id number] 03/07/25 11:43 03/07/25 11:42 Wound Center Nurse 2 -Time 11:42 -Correct Patient Yes -Correct Side, Site, Position Yes -Correct Procedure No -Procedure Performed No -Tunneling No -Undermining/Tunneling No -Circular Undermining No -Wound/Ulcer Outcome Healed- Epithelialized -Ulcer Cleansing Not Cleansed -Foul Odor after Cleansing No -Bleeding Controlled with NA -Offloading No Pain Scale: 0-10 Numeric Is Patient Pain Free? Yes JESSICA - Nurse 3 - General Ulcer D/C NN Start: 03/07/25 11:23 Freq: Status: Active Protocol: Activity Type Activity Date Activity User E-sign Co-sign Detail Recorded Client Recorded Date Recorded By Document 03/07/25 11:43 [id number] 03/07/25 11:45 03/07/25 11:43 Wound Care Center Nurse 3 #9 coccyx -Ulcer Cleansing Not Cleansed -Foul Odor after Cleansing No Pain Scale: 0-10 Numeric Is Patient Pain Free? Yes WC - Visit Discharge Discharge Condition Stable Ambulatory Status Wheelchair Transportation Private Auto Assessment/Plan Assessment/Plan (1) Pressure ulcer of sacral region, stage 3: CODE(S): L89.153 - Pressure ulcer of sacral region, stage 3 (2) Spina bifida: CODE(S): Q05.9 - Spina bifida, unspecified PLAN: Plan No debridement completed, remains healed. No new concerns reported by caregivers. Continue barrier dressing/Vaseline to buttock and sacral area with each change indefinitely. Continue offloading and reposition often. Optimal protein intake. Their questions were answered and they were advised to let us know if they had any further questions or concerns. Okay to return to workshop. Discharge from the wound center. This note was generated with [employer] dictation software. It may contain incorrect words, spelling, and punctuation that were not noted in checking the note before signing.
--- NOTE | 2025-03-11 10:24 | WC ---
PHOTO-COCCYX 03/07/25
== END 2025-03-18 10:23 | disposition home or self-care (01) ==
LOC: WC 10:53
PROVIDERS: PCP Nurse Practitioner Family; Referring Provider Internal Medicine; Visit Provider Internal Medicine
DX: L89.153 Pressure ulcer of sacral region, stage 3 (principal); Q05.9 Spina bifida, unspecified
CPT/HCPCS: 99213; G0463

== ENCOUNTER 2025-03-28 11:23 | Outpatient (RCR) | payer MEDICARE, MEDICAID, SELFPAY ==
--- NOTE | 2025-03-22 08:36 | WC ---
received call from pts mcc Benson. stating pt has an appointment next 03/28/25 to re-establish as a pt. they mentioned using the same dressing and washing with soap/water that she was using prior to her d/c from the wound center. Instructed them I cannot give them additional dressing suggestions until Dr. Kinney evaluates her on upcoming appointment. instructed to keep area clean d/t wound being on coccyx. Benson understands and states that she has a 2nd wound next to the one that reopened on her coccyx.
[2025-03-28 11:29] VITALS: BP 150/97; PULSE 100; RESP 18; TEMP 36.1
--- NOTE | 2025-03-28 12:27 | PCM.WC.PN ---
History of Present Illness Date of Service: 03/28/25 Chief Complaint: Sacral/Coccyx Ulcer History of Wound: Ms. Crews is a 49-year-old well-known to me. Recently discharged following healing of decubitus ulcers however, presents with a new sacral area ulcer. Said to have opened on Tuesday. 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 Had been off due to previous decubitus ulcers. Tuesday, new area of opening was noted. No chills, fever or feeling of unwell. Appetite is good. Progress of Wound: Had been discharged a few weeks ago however following return to workshop and being more sedentary, area reopened. Since reopening, caregivers have been reapplying Fibracol and foam dressing with subsequent improvement. No new concerns otherwise Objective Data Objective Data Vital Signs: Vital Signs Temp Pulse Resp BP 97 F L 100 18 150/97 H 03/28/25 11:29 03/28/25 11:29 03/28/25 11:29 03/28/25 11:29 Charges/Coding Procedures Integumentary [id number]: [id number] Sherlyn subq tissue 20 sq cm/< Physical Exam Const alert, oriented x3 and no apparent distress General Appearance: cooperative and well kempt HEENT normocephalic and hearing grossly normal bilaterally Head and Scalp: normal to inspection and atraumatic Neck full ROM and supple Resp normal respiratory effort Effort and Inspection: able to speak in complete sentences Skin Wounds: wounds noted size Size: See clinical note, bed granulating well, margins well approximated, no odor and open Neuro oriented x3 and CN's II-XII intact bilaterally Psych mental status grossly normal, cooperative and affect normal Appearance: grossly normal Attitude: calm Speech: normal speech Debridement Note Debridement Note Wound debrided: Sacrum Wound Grade/Stage: Stage III Type of Debridement: Excisional debridement Anesthesia Used: 5% Lidocaine Gel Depth: Down to and including healthy tissue and in the subcutaneous layer Percentage of wound debrided: 100 Instrument Used: 3mm curette Tissue Removed: Slough and devitalized tissue Severity: Fat Layer Exposed Amount of bleeding with debridement: Mild Bleeding Controlled with: Pressure Patient tolerated procedure: Patient tolerated procedure well Post-Debridement Measurements and Additional Note: Post-Debridement Measurements/Treatment JESSICA - Nurse 1 - General Ulcer Assessment Start: 03/28/25 11:29 Freq: Status: Active Protocol: APRILT Activity Type Activity Date Activity User E-sign Co-sign Detail Recorded Client Recorded Date Recorded By Document 03/28/25 11:29 AK [id number] 03/28/25 11:35 AK 03/28/25 11:29 Vital Signs Temperature (97.8 F-99.1 F) 97 F L Temperature Source Temporal Pulse Rate (60-100) 100 Pulse Location Monitor Respiratory Rate (12-18) 18 Respiratory rate source Observation Blood Pressure (90/60-120/80) 150/97 H Blood Pressure Mean (mm Hg) 114 Source Monitor Position Sitting Blood Pressure Location Left Arm History Since Last Visit- (Skip if this is Patient's initial visit) Has dressing in place as prescribed Yes Has compression in place as prescribed Yes Has offloadiing in place as prescribed Yes Experienced any changes in pain level or Yes management Left Footwear Regular Shoe Right Footwear Regular Shoe Pain Scale: 0-10 Numeric Is Patient Pain Free? Yes WC - Nurse 1 - General Ulcer Measurement Start: 03/28/25 11:29 Freq: Status: Active Protocol: Activity Type Activity Date Activity User E-sign Co-sign Detail Recorded Client Recorded Date Recorded By Document 03/28/25 11:29 AK [id number] 03/28/25 11:35 AK 03/28/25 11:29 Wound Center Nurse 1 #11 Sacrum -Current Size (cm) - Length 0.1 -Current Size (cm) - Width 0.1 -Current Size (cm) - Depth 0.1 -Total Square Cm 0.01 -Date of Last Picture (Recall this 03/28/25 field) -Photo Taken Yes -Tunneling No -Undermining/Tunneling No -Circular Undermining No -Exudate Amt None Present -Wound Margin Flat & Intact -Granulation Amt Large (67-100%) -Granulation Quality Pale,[place] -Necrosis Amt Small (1-33%) -Necrotic Tissue Type Adherent Slough -Texture (Patience-wound Skin Appearance) Assessed -Moisture (Patience-wound Skin Appearance) Assessed -Color (Patience-wound Skin Appearance) Assessed -Temperature (Patience-wound Skin No Abnormality Appearance) (Pt Warm) -Tenderness on Palpation (Patience-wound No Skin Appearance) -Ulcer Cleansing Soap and Water -Foul Odor after Cleansing No -Anesthetic Used 5% Lidocaine Gel Lower Limb Edema Present NA WC - Nurse 2 - General Ulcer CM Notes Start: 03/28/25 11:29 Freq: Status: Active Protocol: Activity Type Activity Date Activity User E-sign Co-sign Detail Recorded Client Recorded Date Recorded By Document 03/28/25 11:43 [id number] 03/28/25 11:52 03/28/25 11:43 Wound Center Nurse 2 #11 Sacrum -Time 11:43 -Correct Patient Yes -Correct Side, Site, Position Yes -Correct Procedure Yes -Procedure Performed Yes -Type of Procedure Debridement -Clinical Debridement Subcutaneous -Tissue Removed Subcutaneous -Post Debridement (cm) - Length 0.2 -Post Debridement (cm) - Width 0.4 -Post Debridement (cm) - Depth 0.1 -Total Square (Post) (cm) 0.08 -Area of Debridement (cm) - Length 0.2 -Area of Debridement (cm) - Width 0.4 -Total Square (Area) (cm) 0.08 -Tunneling No -Undermining/Tunneling No -Circular Undermining No -Wound/Ulcer Outcome Not Healed -Ulcer Cleansing Rinsed/ Irrigated with Saline -Foul Odor after Cleansing No -Bioengineered Tissue No -Bleeding Controlled with Pressure -Treatment Response Procedure Tolerated Well -Offloading No -Debridement - Subq, 1st 20sq cm Yes Pain Scale: 0-10 Numeric Is Patient Pain Free? Yes - Nurse 3 - General Ulcer D/C NN Start: 03/28/25 11:29 Freq: Status: Active Protocol: Activity Type Activity Date Activity User E-sign Co-sign Detail Recorded Client Recorded Date Recorded By Document 03/28/25 12:15 [id number] 03/28/25 12:16 03/28/25 12:15 Wound Care Center Nurse 3 #11 Sacrum -Ulcer Cleansing Rinsed/ Irrigated with Saline -Primary Dressing Applied Fibracol Plus 4x4,Silicone Border Foam 4x4 -Fibracol Plus 4x4 1 -Silicone Border Foam 4x4 3 Treatment Response Procedure Tolerated Well Pain Scale: 0-10 Numeric Is Patient Pain Free? Yes WC - Visit Discharge Discharge Condition Stable Ambulatory Status Wheelchair Transportation Private Auto Medication Reconcilliation completed & No provided to patient/care provider Clinical Summary of Care Provided Yes Assessment/Plan Assessment/Plan (1) Pressure ulcer of sacral region, stage 3: CODE(S): L89.153 - Pressure ulcer of sacral region, stage 3 (2) Spina bifida: CODE(S): Q05.9 - Spina bifida, unspecified PLAN: Plan Debridement done as documented above, procedure was well-tolerated. Good improvement from initial reopening per pictures from caregivers. Continue Fibracol and foam dressing, change at least twice daily. Continue offloading and reposition often. Optimal protein intake. Once healed, hold off the workshop for at least 4 weeks prior to restarting. Mother and caregivers plan to speak with clinical social work therapist at workshop to make sure that she is repositioning often. Hopefully ongoing care is better. Their questions were answered and they were advised to let us know if they had any further questions or concerns. Follow-up in a week or sooner if needed. This note was generated with [employer] dictation software. It may contain incorrect words, spelling, and punctuation that were not noted in checking the note before signing.
--- NOTE | 2025-03-28 15:06 | WC ---
PHOTO: SACRUM 03/28/25
--- NOTE | 2025-03-29 09:42 | WC ---
PHOTO-SACRUM 03/28/25
== END 2025-04-05 23:59 | disposition home or self-care (01) ==
LOC: WC 11:23
PROVIDERS: PCP Nurse Practitioner Family; Referring Provider Internal Medicine; Visit Provider Internal Medicine
DX: L89.153 Pressure ulcer of sacral region, stage 3 (principal); Q05.9 Spina bifida, unspecified
CPT/HCPCS: 11042; 99213; G0463

== ENCOUNTER 2025-05-23 20:44 | Inpatient (IN) | payer MEDICARE, MEDICAID, SELFPAY ==
[2025-05-23 20:45] VITALS: BP 110/90; PULSE 117; RESP 16; TEMP 36.8; O2SAT 96
--- OUTSIDE RECORDS SUMMARY | 2025-05-23 22:42 | XMS RPT_ITS | CCD ---
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 Name Role Phone LUIS ENRIQUE BRENNAN Unavailable Unavailable PENA, CHRISTOPHE E Unavailable Unavailable PENA, CHRISTOPHE E Unavailable Unavailable YOUSSEFI, MAXI Unavailable Unavailable YOUSSEFI, MAXI Unavailable Unavailable PENA, CHRISTOPHE E Unavailable Unavailable PENA, CHRISTOPHE E Unavailable Unavailable YOUSSEFI, MAXI Unavailable Unavailable YOUSSEFI, MAXI Unavailable Unavailable LUIS ENRIQUE BRENNAN Unavailable Unavailable PENA, CHRISTOPHE E Unavailable Unavailable PENA, CHRISTOPHE E Unavailable Unavailable Sherri HUMAN RESOURCES TRAINING MANAGER, HUMAN RESOURCES TRAINING MANAGER-C Kassie Primary Care Provider Dr. Savannah Kinney Attending Provider [phone] Dr. Savannah Kinney Other Provider [phone] Beto HUMAN RESOURCES TRAINING MANAGER, HUMAN RESOURCES TRAINING MANAGER-C Steph E Attending Provider [phone] Beto HUMAN RESOURCES TRAINING MANAGER, HUMAN RESOURCES TRAINING MANAGER-C Steph E Referring Provider Sherri CARD, HUMAN RESOURCES TRAINING MANAGER-C Kassie Primary Care Provider [phone] Dr. Savannah Kinney Attending Provider [phone] Savannah Kinney Other Provider [phone] Beto HUMAN RESOURCES TRAINING MANAGER, HUMAN RESOURCES TRAINING MANAGER-C Steph E Attending Provider [phone] Beto HUMAN RESOURCES TRAINING MANAGER, HUMAN RESOURCES TRAINING MANAGER-C Steph E Referring Provider Sherri CARD, HUMAN RESOURCES TRAINING MANAGER-C Kassie Primary Care Provider Dr. Savannah Kinney Attending Provider [phone] Savannah Kinney Other Provider [phone] Sherri HUMAN RESOURCES TRAINING MANAGER, HUMAN RESOURCES TRAINING MANAGER-C Kassie Primary Care Provider [phone] Dr. Savannah Kinney Attending Provider [phone] Gregoria, Dr. Nuñez Other Provider [phone] Unavailable Primary Care Provider Unavailyue Polanco HUMAN RESOURCES TRAINING MANAGER, HUMAN RESOURCES TRAINING MANAGER-C Kassie Primary Care Provider [phone] Dr. Savannah Kinney Attending Provider [phone] Dr. Savannah Kinney Other Provider [phone] Sherri HUMAN RESOURCES TRAINING MANAGER, HUMAN RESOURCES TRAINING MANAGER-C Kassie Primary Care Provider Gregoria, Dr. Nuñez Attending Provider [phone] Dr. Savannah Kinney Other Provider [phone] SHERRI JOB PRESS FEEDER-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, KASSIE Roman Primary Care Unava ilable PHYSICIAN, NOT RECORDED Attending Unavaila ble KASSIE POLANCO Primary Care Unavailable SHELL RUTH Attending Unavailabl e GATHERWRIGHT, NAWAF Francisco Attending Unavailabl e KASSIE POLANCO Primary Care Unavailable KASSIE POLANCO Primary Care Unavailable GATHERWRIGHT, NAWAF Francisco Attending Unavailabl e SHELL RUTH Attending Unavailabl e KASSIE POLANCO Primary Care Unavailable GATHERWRIGHT, NAWAF Francisco Attending Unavailabl e KASSIE POLANCO Primary Care Unavailable GATHERWRIGHT, NAWAF Francisco Attending Unavailabl e KASSIE POLANCO Primary Care Unavailable GATHERWRIGHT, NAWAF Francisco Referring Unavailabl e GATHERWRIGHT, NAWAF Francisco Referring Unavailabl e GATHERWRIGHT, NAWAF Francisco Attending Unavailabl e VIKTOR JARAMILLO Consulting Unavailable GATHERWRIGHT, NAWAF Francisco Attending Unavailabl e GATHERWRIGHT, NAWAF Francisco Referring Unavailabl e GATHERWRIGHT, NAWAF Francisco Admitting Unavailabl e GATHERWRIGHT, NAWAF Francisco Attending Unavailabl e KASSIE POLANCO Primary Care Unavailable Roxana Muir RN Unavailable Unavailable CHRISTOPHE PENA MD Unavailable MARILEE LUGO MD Unavailable [phone] TALIA ALBARADO Unavailable Unavailable Nolan WOLF MD Unavailable ENEDINA MOLINA Unavailable Unavailable Bethany Molina Unavailable Unavailable Cristobal MOLINA MD Unavailable Raad Nagy Unavailable Unavailable RAAD NAGY Unavailable Unavailable Juliette Kenyon Unavailable Unavailable Kenyetta Hodge Unavailable Unavailable AYESHA SAMANO, RONNIE Andrade Unavailable Lior Hodge Unavailable Unavailable Bill MACHADO, Cherry Unavailable Unavaila MARY Corley Unavailable Unavailable John RN, Shantell Unavailable Unavailable Unavailable Unavailable MARYANN SAMANO, DR SAEED Primary Care Unavailable Sherri HUMAN RESOURCES TRAINING MANAGER-C, Kassie Primary Care Provider Sherri HUMAN RESOURCES TRAINING MANAGER-C, Kassie Referring Provider Osman HUMAN RESOURCES TRAINING MANAGER-C, Shell Attending Provider Gregoria SAMANO, Dr. Nuñez Attending Provider [phone] Gregoria SAMANO, Dr. Nuñez Other Provider [phone] Care Physician, No Primary Referring Provider Un available Dr. Brett Vincent MD Attending Provider Sherri HUMAN RESOURCES TRAINING MANAGER-C, Kassie Primary Care Provider Dr. Savannah Kinney MD Referring Provider [phone] Mary SAMANO, Dr. Enzo Stout Attending Provider Dr. Enzo Hernandez MD Referring Provider Sherri CARD-C, Kassie Referring Provider Dr. Mario Rai DO Attending Provider Dr. Mario Rai DO Other Provider Osman HUMAN RESOURCES TRAINING MANAGERShell Argueta Attending Provider Sherri CARD-C, Kassie Primary Care Physician Dr. Savannah Kinney MD Attending Physician Dr. Savannah Kinney MD Nurse Practitioner [phone] Dr. Brett Vincent MD Attending Physician Mary SAMANO, Dr. Enzo Stout Attending Physician Cecelia HOPKINS, Dr. Martin Attending Physician Cecelia HOPKINS, Dr. Martin Nurse Practitioner Osman CARD-C, Shell Attending Physician Sherri CARD-C, Kassie Primary Care Physician Gregoria SAMANO, Dr. Nuñez Attending Physician Gregoria SAMANO, Dr. Nuñez Nurse Practitioner Care Physician, No Primary Referring Provider Un available KILO BENSON DO Attending Unavailable KASSIE POLANCO CNP Consulting Unavailable KASSIE POLANCO CNP Referring Unavailable KILO BENSON DO Admitting Unavailable KILO BENSON DO Primary Care Unavailable PROVIDER, UNKNOWN Consulting Unavailable PROVIDER, UNKNOWN Consulting Unavailable VIKTOR FOY DO Admitting Unavailable VIKTOR FOY DO Primary Care Unavailable VIKTOR FOY DO Attending Unavailable KASSIE POLANCO CNP Consulting Unavailable KASSIE POLANCO CNP Referring Unavailable PROVIDER, UNKNOWN Consulting Unavailable PROVIDER, UNKNOWN Consulting Unavailable KASSIE POLANCO CNP Primary Care Unavailable KASSIE POLANCO CNP Consulting Unavailable KASSIE POLANCO CNP Attending Unavailable KASSIE POLANCO CNP Admitting Unavailable PROVIDER, UNKNOWN Consulting Unavailable PROVIDER, UNKNOWN Consulting Unavailable Sherri HUMAN RESOURCES TRAINING MANAGER, Kassie Primary Care Unavailable Oleghe, Efewongbe Attending Unavailable Oleghe, Efewongbe Referring Unavailable Oleghe, Efewongbe Consulting Unavailable Sherri HUMAN RESOURCES TRAINING MANAGER, Kassie Referring Unavailable Sherri HUMAN RESOURCES TRAINING MANAGER, Kassie Primary Care Unavailable Shell Brewer Attending Unavailable Care Physician, No Primary Referring Unava ilable Sherri HUMAN RESOURCES TRAINING MANAGER, Kassie Primary Care Unavailable Oleghe, Efewongbe Attending Unavailable Oleghe, Efewongbe Consulting Unavailable Sherri HUMAN RESOURCES TRAINING MANAGER, Kassie Primary Care Unavailable Oleghe, Efewongbe Referring Unavailable Oleghe, Efewongbe Attending Unavailable Oleghe, Efewongbe Consulting Unavailable Sherri HUMAN RESOURCES TRAINING MANAGER, Kassie Primary Care Unavailable Oleghe, Efewongbe Attending Unavailable Oleghe, Efewongbe Referring Unavailable Sherri HUMAN RESOURCES TRAINING MANAGER, Kassie Primary Care Unavailable Oleghe, Efewongbe Attending Unavailable Oleghe, Efewongbe Referring Unavailable Oleghe, Efewongbe Consulting Unavailable Sherri HUMAN RESOURCES TRAINING MANAGER, [facility] Primary Care Unavailable Oleghe, Efewongbe Attending Unavailable Oleghe, Efewongbe Referring Unavailable Sherri HUMAN RESOURCES TRAINING MANAGER, Kassie Referring Unavailable Sherri HUMAN RESOURCES TRAINING MANAGER, [facility] Primary Care Unavailable Friend, Mario Consulting Unavailable Friend, Mario Attending Unavailable Sherri HUMAN RESOURCES TRAINING MANAGER, [facility] Primary Care Unavailable Oleghe, Efewongbe Attending Unavailable Oleghe, Efewongbe Referring Unavailable Oleghe, Efewongbe Consulting Unavailable Sherri HUMAN RESOURCES TRAINING MANAGER, [facility] Primary Care Unavailable Oleghe, Efewongbe Referring Unavailable Oleghe, Efewongbe Attending Unavailable Oleghe, Efewongbe Consulting Unavailable Sherri HUMAN RESOURCES TRAINING MANAGER, [facility] Primary Care Unavailable Oleghe, Efewongbe Consulting Unavailable Oleghe, Efewongbe Attending Unavailable Oleghe, Efewongbe Referring Unavailable Sherri HUMAN RESOURCES TRAINING MANAGER, [facility] Primary Care Unavailable Oleghe, Efewongbe Referring Unavailable Oleghe, Efewongbe Attending Unavailable Care Physician, No Primary Referring Unava ilable Sherri HUMAN RESOURCES TRAINING MANAGER, [facility] Primary Care Unavailable Oleghe, Efewongbe Attending Unavailable Care Physician, No Primary Referring Unava ilable Sherri HUMAN RESOURCES TRAINING MANAGER, [facility] Primary Care Unavailable Oleghe, Efewongbe Attending Unavailable Sherri HUMAN RESOURCES TRAINING MANAGER, [facility] Primary Care Unavailable Oleghe, Efewongbe Referring Unavailable Oleghe, Efewongbe Attending Unavailable MaryEnzoGabriel Attending Unavailable Mary Gabriel Referring Unavailable Sherri HUMAN RESOURCES TRAINING MANAGER, [facility] Primary Care Unavailable Oleghe, Efewongbe Consulting Unavailable Sherri HUMAN RESOURCES TRAINING MANAGER, [facility] Primary Care Unavailable Oleghe, Efewongbe Attending Unavailable Oleghe, Efewongbe Referring Unavailable Sherri HUMAN RESOURCES TRAINING MANAGER, [facility] Primary Care Unavailable Oleghe, Efewongbe Attending Unavailable Oleghe, Efewongbe Referring Unavailable Oleghe, Efewongbe Consulting Unavailable Sherri HUMAN RESOURCES TRAINING MANAGER, Kassie Referring Unavailable Sherri HUMAN RESOURCES TRAINING MANAGER, [facility] Primary Care Unavailable Friend, Mario Attending Unavailable Sherri HUMAN RESOURCES TRAINING MANAGER, [facility] Primary Care Unavailable Oleghe, Efewongbe Referring Unavailable Oleghe, Efewongbe Attending Unavailable Sherri HUMAN RESOURCES TRAINING MANAGER, [facility] Primary Care Unavailable Oleghe, Efewongbe Attending Unavailable Oleghe, Efewongbe Referring Unavailable Sherri HUMAN RESOURCES TRAINING MANAGER, [facility] Primary Care Unavailable Oleghe, Efewongbe Attending Unavailable Oleghe, Efewongbe Referring Unavailable Oleghe, Efewongbe Consulting Unavailable Care Physician, No Primary Referring Unava ilable Sherri HUMAN RESOURCES TRAINING MANAGER, Kassie Primary Care Unavailable Oleghe, Efewongbe Consulting Unavailable Oleghe, Efewongbe Attending Unavailable Care Physician, No Primary Referring Unava ilable Sherri HUMAN RESOURCES TRAINING MANAGER, Kassie Primary Care Unavailable Oleghe, Efewongbe Consulting Unavailable Oleghe, Efewongbe Attending Unavailable Sherri HUMAN RESOURCES TRAINING MANAGER, Kassie Referring Unavailable Sherri HUMAN RESOURCES TRAINING MANAGER, Kassie Primary Care Unavailable Shell Brewer Attending Unavailable Sherri HUMAN RESOURCES TRAINING MANAGER, Kassie Primary Care Unavailable Oleghe, Efewongbe Referring Unavailable Oleghe, Efewongbe Attending Unavailable Oleghe, Efewongbe Consulting Unavailable Sherri HUMAN RESOURCES TRAINING MANAGER, Kassie Primary Care Unavailable Oleghe, Efewongbe Referring Unavailable Oleghe, Efewongbe Attending Unavailable Oleghe, Efewongbe Consulting Unavailable Allergies Allergy Classification Reported Allergen(s) Allergy Type Date of Onset Reaction(s) Facility (20 sources) azithromycin; Translations: [AZITHROMYCIN] Drug Allergy 3 Diarrhea [facility] Repository (2 sources) cephalexin; Translations: [CEPHALEXIN] Drug Allergy 8 [facility] Repository (20 sources) ciprofloxacin; Translations: [CIPROFLOXACIN] Drug Allergy 3 Other: See Comments [facility] Repository (4 sources) AMOXICILLIN-POT CLAVULANATE; Translations: [AMOXICILLIN-POT CLAVULANATE] Propensity to adverse reactions to drug (disorder) 3 Diarrhea [facility] Repository (20 sources) Amoxicillin Drug Allergy 1 [facility] (20 sources) Clavulanate; Translations: [CLAVULANIC ACID] Drug Allergy 9 [facility] (1 source) Albuterol; Translations: [ALBUTEROL] Drug Allergy 3 [facility] Repository (1 source) Amoxicillin / Clavulanate Drug Allergy 9 Replaced By [facility], [facility].; [facility], [place], [facility]. (1 source) Cephalexin Drug Allergy 9 [email or web address], [place] [facility]. (1 source) Ciprofloxacin Drug Allergy 9 [facility].; [facility]. (1 source) Erythromycin Drug Allergy 9 Diarrhea [facility]. (1 source) Z Turner (Renamed from Zithromax Z-Turner *MACROLIDES*) 9 Diarrhea [email or web address], [email or web address]. (1 source) Albuterol Drug Allergy [facility] Repository (1 source) Amoxicillin Drug Allergy [facility] Repository (1 source) Amoxicillin / Clavulanate Drug Allergy [facility] Repository (1 source) Ciprofloxacin Drug Allergy [facility] Repository (1 source) Amoxicillin Drug Allergy 5 [facility] Repository (1 source) Clavulanate Drug Allergy 5 [facility] Repository Medications Current Medications Medication Drug Class(es) Dates Sig (Normalized) Sig (Original) ascorbic acid 1000 mg oral tablet (3 sources) Vitamin C take 1 tablet by once daily VITAMIN C, 1000MG (Oral Tablet) ; 1 daily (1000 MG) take 1 tablet by mouth once miguel y ascorbic acid, vitamin C, (VITAMIN C) 500 mg tablet Take 500 mg by mouth once daily. 0 Active Comment on above: Take 500 mg by mouth once daily. aspirin 81 mg chewable tablet (20 sources) Platelet Aggregation Inhibitor, Nonsteroidal Anti-inflammatory Drug Start: 03-14-2018 take 1 tablet by mouth once daily take 1 tablet by mouth once miguel y Aspirin Adult Low Strength 81 MG Oral Tablet Delayed Release ; 1 (one) daily (81 MG) bacillus coagulans [id number] unt chewable tablet (18 sources) Start: 01-22-2025 Start: 09-11-2020 Bacillus Coagu lans Active 1 EACH PO AT BEDTIME September 11, 2020 12:34pm Start: 09-11-2020 Bacillus Coagu lans Active 1 EACH PO AT BEDTIME September 10, 2020 11:00pm Start: 09-11-2020 Bacillus Coagu lans Active 1 EACH PO AT BEDTIME September 11, 2020 12:00am bisacodyl 5 mg delayed relea se oral tablet (13 sources) Stimulant Laxative Start: 08-21-2024 End: 01-30-2025 Start: 08-21-2024 Bisacodyl 5 mg tablet Active 5 mg PO FR August 21, 2024 12:00am budesonide 0.125 mg/ml inhalation suspension (19 sources) Corticosteroid Start: 10-28-2021 take 0.25 mg by inhalation twice daily Calcium-Vitamin D 500 MG Oral Capsule (1 source) take 1 capsule by mouth once daily Calcium-Vitamin D 500 MG Oral Capsule ; 1 daily (500 MG) cephalexin 750 mg oral capsule (2 sources) Cephalosporin Antibacterial Start: 09-26-2020 take 750 mg by mouth three times daily Cephalexin Active 750 MG PO THREE TIMES A DAY September 26, 2020 10:00am DAILY MULTIPLE VITAMINS (Oral Tablet) (1 source) take 1 tablet by mouth once daily DAILY MULTIPLE VITAMINS (Oral Tablet) ; 1 (one) daily docusate sodium 100 mg oral tablet (9 sources) Start: 08-21-2024 take 1 tablet by mouth twice daily glycerin 2100 mg rectal suppository (1 source) Non-Standardized Chemical Allergen COLACE ADULT, 2.1GM (Rectal Suppository) ; 1 daily as needed (2.1 GM) Comments: Medication taken as needed. Comment on above: Medication taken as needed. lisinopril 20 mg oral tablet (6 sources) Angiotensin Converting Enzyme Inhibitor Start: 01-22-2025 take 1 tablet by mouth once daily loratadine 10 mg oral tablet (9 sources) Start: 08-21-2024 take 1 tablet by mouth once daily lubiprostone 0.024 mg oral capsule (20 sources) Chloride Channel Activator Start: 01-30-2025 take 1 capsule by mouth twice daily Start: 09-04-2024 End: 01-22-2025 take 1 capsule by mouth twice daily Lubiprostone (Amitiza) 24 mcg capsule Discontinued 24 ug PO TWICE A DAY 60 10 January 16, 2025 4:57pm January 22, 2025 10:12am constipation metoprolol tartrate 25 mg oral tablet (1 source) beta-Adrenergic Jackie Start: 02-21-2019 take 1 tablet by mouth twice daily Metoprolol Tartrate 25 MG Oral Tablet ; 1 (one) Tablet bid for 60 days Quantity: 60 {Tablet} Refills: 2 Ordered: 21-Feb-2019 MD Nolan WOLF Start: 21-Feb-2019 Multivitamin With Folic Acid (Thera) 1 TABLET tablet (20 sources) Start: 04-24-2013 take 1 tablet by mouth at bedtime Multivitamin With Folic Acid (Thera) 1 TABLET tablet Active 1 TABLET PO AT BEDTIME April 24, 2013 11:46am Start: 04-24-2013 take 1 tablet by keiry th at bedtime Start: 04-24-2013 take 1 tablet by keiry th at bedtime Multivitamin With Folic Acid (Thera) 1 TABLET tablet Active 1 {tbl} PO AT BEDTIME April 24, 2013 1:00am general health Start: 04-24-2013 take 1 tablet by keiry th at bedtime Multivitamin With Folic Acid (Thera) 1 TABLET tablet Active 1 TABLET PO AT BEDTIME April 24, 2013 12:00am Start: 04-24-2013 take 1 tablet by keiry th at bedtime Multivitamin With Folic Acid (Thera) 1 TABLET tablet Active 1 TABLET PO AT BEDTIME April 24, 2013 1:00am mupirocin 20 mg/ml topical cream (9 sources) RNA Synthetase Inhibitor Antibacterial Start: 08-21-2024 omeprazole 20 mg delayed release oral capsule (20 sources) Proton Pump Inhibitor Start: 03-11-2018 take 1 capsule by mouth at bedtime take 1 tablet by mouth at bedtim e PriLOSEC OTC 20 MG Oral Tablet Delayed Release ; 1 at bedtime (20 MG) 24 hr oxybutynin chloride 15 mg extended release oral tablet (20 sources) Cholinergic Muscarinic Antagonist Start: 09-11-2020 End: 08-21-2024 take 1 tablet by mouth three times daily Start: 02-14-2013 take 1 tablet by keiry th once daily oxybutynin ER (DITROPAN XL) 15 mg 24 hr Extended Rel Tab Take 1 tablet by mouth once daily. 0 02/14/2013 Active take 1 tablet by keiry th every twenty-four hours DITROPAN XL, 10MG (Oral Tablet Extended Release 24 Hour) ; (10 MG) Status: Inactive take 1 tablet by keiry th every twenty-four hours OXYBUTYNIN CHLORIDE ER, 5MG (Oral Tablet Extended Release 24 Hour) ; 1 three times daily (5 MG) Comment on above: Take 1 tablet by keiry th once daily. polyethylene glycol [id number] mg powder for oral solution (20 sources) Osmotic Laxative Start: 09-14-2020 take 17 g by mouth once daily as needed for constipation potassium citrate 15 meq extended release oral tablet (20 sources) Start: 03-23-2019 take 1 tablet by mouth twice daily psyllium 520 mg oral capsule (9 sources) Start: 08-21-2024 sertraline 50 mg oral tablet (9 sources) Serotonin Reuptake Inhibitor Start: 08-21-2024 take 1 tablet by mouth once daily Completed/Discontinued Medications Medication Drug Class(es) Dates Sig (Normalized) Sig (Original) acetaminophen 325 mg / HYDROcodone bitartrate 5 mg oral tablet (20 sources) Opioid Agonist Start: 09-26-2020 End: 10-03-2020 Hydrocodone-Acetami nophen 1 TABLET tablet Discontinued 1 {tbl} PO EVERY 4 HOURS NEEDED as needed for Pain 14 7 0 September 26, 2020 October 02, 2020 12:00am October 03, 2020 12:01am Personal history of urinary calculi Start: 09-26-2020 End: 10-03-2020 take 1 tablet by mouth every four hours as needed Hydrocodone-Acetaminophen Discontinued 1 TABLET PO EVERY 4 HOURS NEEDED 14 7 September 26, 2020 October 03, 2020 12:01am Start: 03-23-2019 End: 04-05-2019 Hydrocodone-Acetaminophen 1 EACH tablet Discontinued 1 NMA PO EVERY 4 HOURS NEEDED as needed for Pain Or Fever 20 5 0 March 23, 2019 March 27, 2019 12:00am April 05, 2019 12:09am Personal history of urinary calculi Start: 03-23-2019 End: 04-05-2019 Hydrocodone-Acetaminophen Di scontinued 1 EACH PO EVERY 4 HOURS NEEDED 20 5 March 23, 2019 April 05, 2019 12:09am acetaminophen 325 mg / oxyCODONE hydrochloride 5 mg oral tablet (1 source) Opioid Agonist Start: 02-12-2013 End: 08-16-2013 take 1 tablet by mouth four times daily as needed for pain PERCOCET, 5-325MG (Oral Tablet) ; 1 (one) Tablet four times daily as needed for pain for 0 days Quantity: 30 {Tablet} Refills: 0 Ordered: 16-Aug-2013 JEANNETTE Khan Start: 12-Feb-2013 End: 16-Aug-2013 Status: Inactive Comments: Medication taken as needed. Comment on above: Medication taken as needed. amino acids-protein hydrolys (PRO-STAT AWC) 17-100 gram-kcal/30 mL liqd (1 source) Start: 08-05-2022 amino acids-protein hydrolys (PRO-STAT AWC) 17-100 gram-kcal/30 mL liqd Take 30 fluid ounces by mouth as directed. 887 mL 0 08/05/2022 Active Comment on above: Take 30 fluid ounces by mouth as directed. amoxicillin 500 mg oral capsule (3 sources) Penicillin-class Antibacterial Start: 10-13-2017 End: 10-20-2017 take 1 capsule by mouth three times daily Amoxicillin 500 MG Oral Capsule ; 1 (one) Capsule tid for 7 days Quantity: 21 {Capsule} Refills: 0 Ordered: 19-Jan-2018 MD Nolan WOLF Start: 13-Oct-2017 End: 20-Oct-2017 Status: Inactive Start: 09-13-2017 End: 09-23-2017 take 1 capsule by mouth three times daily Amoxicillin 500 MG Oral Capsule ; 1 (one) Capsule three times daily for 10 days Quantity: 30 {Capsule} Refills: 0 Ordered: 13-Sep-2017 MD Nolan WOLF Start: 13-Sep-2017 End: 23-Sep-2017 Status: Inactive Start: 12-02-2011 End: 12-09-2011 take 1 tablet by mouth three times daily AMOXICILLIN, 500MG (Oral Tablet) ; 1 (one) Tablet three times daily for 7 days Quantity: 21 {Tablet} Refills: 0 Ordered: 28-Dec-2011 MD CHRISTOPHE PENA Start: 02-Dec-2011 End: 09-Dec-2011 Status: Inactive amoxicillin 500 mg / clavulanate 125 mg oral tablet (9 sources) Penicillin-class Antibacterial Start: 11-29-2024 End: 01-22-2025 Amoxicillin-Pot Clavulanate (Augmentin) 500-125 mg tablet Discontinued 1 {tbl} PO TWICE A DAY 14 0 November 29, 2024 12:00am January 22, 2025 9:36am azithromycin 250 mg oral tablet (2 sources) Macrolide Antimicrobial Start: 11-12-2014 End: 11-17-2014 AZITHROMYCIN, 250MG (Oral Tablet) ; 2 Tabs day one Tablet 1 tab qday x4days for 5 days Quantity: 6 {Tablet} Refills: 0 Ordered: 12-Nov-2014 MD Nolan WOLF Start: 12-Nov-2014 End: 17-Nov-2014 Status: Inactive Start: 07-31-2010 End: 08-05-2010 take 1 dose by mouth once AZITHROMYCIN, 1GM (Oral Pack et) ; 1 Packet DIRECTED for 5 days Quantity: 1 {Packet} Refills: 0 Ordered: 27-Aug-2010 MD CHRISTOPHE PENA Start: 31-Jul-2010 End: 05-Aug-2010 Status: Inactive Comments: CALLED TO [facility] PER dR. PENA'S ORDER Comment on above: CALLED TO [facility] PENA'S ORDER Bacillus Coagulans 1 EACH capsule,delayed release(DR/EC) (9 sources) Start: 09-11-2020 End: 01-22-2025 Bacillus Coagulans 1 EACH capsule,delayed release(DR/EC) Discontinued 1 NMA PO AT BEDTIME September 11, 2020 12:00am January 22, 2025 9:36am [facility] Start: 09-11-2020 Bacillus Coagu lans 1 EACH capsule,delayed release(DR/EC) Active 1 NMA PO AT BEDTIME September 11, 2020 12:00am [facility] calcium carbonate 1000 mg oral tablet (2 sources) Calcium Carbonat e 1,000 mg Tab Take by mouth. 0 Active Comment on above: Take by mouth. cefdinir 300 mg oral capsule (7 sources) Cephalosporin Antibacterial Start: 5 End: 5 take 1 capsule by mouth twice daily Cefdinir 300 mg capsule Discontinued 300 mg PO TWICE A DAY 20 0 January 03, 2025 12:00am January 22, 2025 10:08am cefuroxime 500 mg oral tablet (20 sources) Cephalosporin Antibacterial Start: 6 End: 8 Cefuroxime Axetil (Ceftin) 500 MG tablet Discontinued 250 mg PO TWICE A DAY April 14, 2016 1:00am March 14, 2018 10:34am antibiotic Start: 07-30-2010 End: 08-06-2010 take 1 tablet by mouth twice daily CEFTIN, 250MG (Oral Tablet) ; 1 Tablet BID for 7 days Quantity: 14 {Tablet} Refills: 0 Ordered: 30-Jul-2010 MD CHRISTOPHE PENA Start: 30-Jul-2010 End: 06-Aug-2010 Status: Inactive Start: 07-06-2010 End: 07-16-2010 take 1 tablet by mouth twice daily CEFTIN, 250MG (Oral Tablet) ; 1 (one) Tablet two times daily for 10 days Quantity: 20 {Tablet} Refills: 0 Ordered: 29-Jul-2010 MD RONNIE HODGE Start: 06-Jul-2010 End: 16-Jul-2010 Status: Inactive take 1 tablet by keiry th twice daily Ceftin 500 MG Oral Tablet ; 1 two times daily (500 MG) Status: Inactive Comments: [facility] Comment on above: [facility] codeine phosphate 2 mg/ml / guaiFENesin 20 mg/ml oral solution (3 sources) Opioid Agonist Start: 08-11-2018 End: 08-16-2018 take 5 mL by mouth every four to six hours as needed for cough GuaiFENesin AC 100-10 MG/5ML Oral Syrup ; 5 Milliliter every 4-6 hours prn cough for 5 days Quantity: 120 {Milliliter} Refills: 0 Ordered: 11-Aug-2018 MD Nolan WOLF Start: 11-Aug-2018 End: 16-Aug-2018 Status: Inactive Start: 03-23-2016 End: 04-09-2016 take 5 mL by mouth every four hours as needed for cough Guaifenesin-Codeine 100-10 MG/5ML Oral Syrup ; 5 ml ml every four hours, as needed for cough for 0 days Quantity: 4 {Ounce} Refills: 1 Ordered: 09-Apr-2016 ENEDINA MOLINA Start: 23-Mar-2016 End: 09-Apr-2016 Status: Inactive Comments: Medication taken as needed. Start: 11-12-2014 End: 11-17-2014 take 1 [tsp_us] by mouth every six hours as needed for cough GUAIFENESIN AC, 100-10MG/5ML (Oral Syrup) ; 1 (one) teaspoon every 6 hours as needed for cough for 5 days Quantity: 4 {Ounce} Refills: 0 Ordered: 24-Feb-2015 MD Nolan WOLF Start: 12-Nov-2014 End: 17-Nov-2014 Status: Inactive Comments: Medication taken as needed. Comment on above: Medication taken as needed. codeine phosphate 2 mg/ml / promethazine hydrochloride 1.25 mg/ml oral solution (1 source) Opioid Agonist, Phenothiazine Start: 04-07-20 13 End: 04-12-20 13 PROMETHAZINE-CODEINE , 6.25-10MG/5ML (Oral Syrup) ; 1 Teaspoon(s) every four hours, as needed for 5 days Quantity: 1 {Bottle(s)} Refills: 0 Ordered: 17-Apr-2013 MD MARILEE LUGO Start: 07-Apr-2013 End: 12-Apr-2013 Status: Inactive Comments: Medication taken as needed. Comment on above: Medication taken as needed. docusate sodium 50 mg / sennosides, chcf 8.6 mg oral tablet (19 sources) Start: 10-29-19 End: 08-22-19 Sennosides-Docusate Sodium (Stool Softener-Laxative) 8.6-50 mg Tablet Discontinued 1 NMA PO AT BEDTIME October 28, 2021 12:00am August 21, 2024 2:15pm doxycycline hyclate 100 mg oral capsule (3 sources) Tetracycline-class Drug Start: 08-12-19 19 End: 10-04-19 19 take 1 capsule by mouth twice daily Doxycycline Hyclate 100 MG Oral Capsule ; 1 (one) Capsule two times daily for 10 days Quantity: 20 {Capsule} Refills: 1 Ordered: 03-Oct-2018 MD Nolan WOLF Start: 11-Aug-2018 End: 03-Oct-2018 Status: Inactive Start: 09-20-2016 End: 09-13-2017 take 1 capsule by mouth twice daily Doxycycline Hyclate 100 MG Oral Capsule ; 1 (one) Capsule Capsule two times daily for 0 days Quantity: 20 {Capsule} Refills: 0 Ordered: 13-Sep-2017 JEANNETTE Lopez Start: 20-Sep-2016 End: 13-Sep-2017 Status: Inactive Start: 06-09-2011 End: 06-19-2011 take 1 capsule by mouth twice daily at mealtime DOXYCYCLINE HYCLATE, 100MG (Oral Capsule) ; 1 (one) Capsule two times daily with meals for 10 days Quantity: 20 {Capsule} Refills: 0 Ordered: 09-Jun-2011 MD MARILEE LUGO Start: 09-Jun-2011 End: 19-Jun-2011 Status: Inactive 24 hr fexofenadine hydrochloride 180 mg / pseudoephedrine hydrochloride 240 mg extended release oral tablet (20 sources) alpha-Adrenergic Agonist, Histamine-1 Receptor Antagonist Start: 04-24-2013 End: 04-14-2016 Fexofenadine-Pseudoephedrine (Yohana-D 24 Hour Tablet) 1 TAB.SR Tab.Sr.24h Discontinued 1 NMA PO DAILY April 24, 2013 1:00am April 14, 2016 11:45am fluconazole 150 mg oral tablet (3 sources) Azole Antifungal Start: 08-11-2018 End: 10-03-2018 Diflucan 150 MG Oral Tablet ; 1 (one) Tablet x1 for 1 days Quantity: 1 {Tablet} Refills: 1 Ordered: 03-Oct-2018 MD Nolan WOLF Start: 11-Aug-2018 End: 03-Oct-2018 Status: Inactive Start: 07-20-2016 End: 07-22-2016 Diflucan 150 MG Oral Tablet ; one Tab Tab for 2 days for 2 days Quantity: 2 {Tablet} Refills: 0 Ordered: 20-Jul-2016 MD Nolan WOLF Start: 20-Jul-2016 End: 22-Jul-2016 Status: Inactive Start: 06-30-2015 End: 03-23-2016 take 1 tablet by mouth every week Diflucan 150 MG Oral Tablet ; one tablet(s) weekly for 1 days Quantity: 2 {Tablet} Refills: 1 Ordered: 23-Mar-2016 TALIA ALBARADO Start: 30-Jun-2015 End: 23-Mar-2016 Status: Inactive Comments: Amy ML[facility], Comment on above: Amy MLBG, 12 hr guaiFENesin 1200 mg / pseudoephedrine hydrochloride 120 mg extended release oral tablet (1 source) alpha-Adrenergic Agonist Star t: 06-06 End: 06-07 11 MUCINEX D, 120-1200MG (Oral Tablet Extended Release 12 Hour) ; 1 (one) Tablet ER 12HR two times daily, as needed for 9 days Quantity: 18 {Tablet_ER_12HR} Refills: 0 Ordered: 02-Jul-2010 MD RONNIE HODGE Start: 19-Jun-2010 End: 28-Jun-2010 Status: Inactive Comments: Medication taken as needed. Comment on above: Medication taken as needed. ketoconazole 20 mg/ml topical cream (1 source) Azole Antifungal Star t: 07-07 End: 07-08 Ketoconazole 2 % External Cream ; 1 (one) application bid to affected area until clear for 1 week for 14 days Quantity: 1 {Tube} Refills: 0 Ordered: 20-Sep-2016 MD Nolan WOLF Start: 20-Jul-2016 End: 03-Aug-2016 Status: Inactive linaclotide 0.29 mg oral capsule (9 sources) Guanylate Cyclase-C Agonist Star t: 08-04 25 End: 06-25 25 take 1 capsule by mouth once daily Linaclotide (Linzess) 290 mcg capsule Discontinued 290 ug PO daily August 21, 2024 12:00am September 04, 2024 4:44pm LORazepam 0.5 mg oral tablet (20 sources) Benzodiazepine Star t: 02-23 18 End: 03-06 take 1 tablet by mouth twice daily as needed for anxiety Lorazepam 0.5 MG tablet Discontinued 0.5 mg PO TWICE DAILY NEEDED as needed for anxiety w/ vocal cord dysfunct 10 March 14, 2018 12:00am March 18, 2018 12:00am March 19, 2018 12:09am 1 ml medroxyPROGESTERone acetate 150 mg/ml prefilled syringe (20 sources) Progestin Star t: 03-06 19 End: 08-04 inject 150 mg by intramuscular injection every three months Medroxyprogesterone 150 MG/ML syringe Discontinued 150 mg IM .[id number] March 19, 2019 12:00am August 21, 2024 4:03pm Start: 03-19-2019 inject 150 mg by int ramuscular injection every three months Medroxyprogesterone Active 150 MG IM .[id number] March 19, 2019 12:00am Depo-Provera 150 MG/ML Intramuscular Suspension ; 1 every 3 months (150 MG/ML) Comments: [facility] Comment on above: [facility] meloxicam 7.5 mg oral tablet (1 source) Nonsteroidal Anti-inflammatory Drug take 1 tablet by mouth once daily as needed MELOXICAM, 7.5MG (Oral Tablet) ; 1 daily as needed (7.5 MG) Status: Inactive Comments: Medication taken as needed. Comment on above: Medication taken as needed. mineral oil 1000 mg/ml enema (9 sources) Start: 08-22-19 End: 01-23-20 Mineral Oil (Fleet Mineral Oil) enema Discontinued 118 mL RC .QTUFR August 21, 2024 12:00am January 22, 2025 10:11am discard any unused portion minocycline 100 mg oral capsule (1 source) Tetracycline-class Drug Start: 04-07-20 13 End: 04-17-20 13 take 1 capsule by mouth twice daily MINOCYCLINE HCL, 100MG (Oral Capsule) ; 1 (one) Capsule two times daily for 10 days Quantity: 20 {Capsule} Refills: 0 Ordered: 17-Apr-2013 MD MARILEE LUGO Start: 07-Apr-2013 End: 17-Apr-2013 Status: Inactive Multivitamins chew (2 sources) Multivitamins ch ew Take by mouth. 0 Active Comment on above: Take by mouth. nitrofurantoin, macrocrystals 100 mg oral capsule (1 source) Nitrofuran Antibacterial MACRODANTIN, 100MG (Oral Capsule) ; (100 MG) Status: Inactive nitrofurantoin, macrocrystals 25 mg / nitrofurantoin, monohydrate 75 mg oral capsule (1 source) Nitrofuran Antibacterial Start: 02-28-20 16 End: 03-06-20 16 take 1 capsule by mouth twice daily Macrobid 100 MG Oral Capsule ; 1 (one) Capsule bid for 7 days Quantity: 14 {Capsule} Refills: 0 Ordered: 28-Feb-2016 MD Nolan WOLF Start: 28-Feb-2016 End: 06-Mar-2016 Status: Inactive ondansetron 4 mg oral tablet (9 sources) Serotonin-3 Receptor Antagonist Start: 08-22-19 End: 01-23-20 take 2 tablets by mouth every two hours as needed, then take 1 tablet by mouth every four hours as needed Ondansetron Hcl 4 mg tablet Discontinued 4 mg PO .COMPLEX 10 0 August 21, 2024 12:00am January 22, 2025 10:11am 4 mg orally; take two tablets PO two hours prior to start of bowel prep and one every 4 hours as needed for N/V PARoxetine hydrochloride 40 mg oral tablet (20 sources) Serotonin Reuptake Inhibitor Start: 02-22-20 End: 08-22-19 take 1 tablet by mouth at bedtime Paroxetine Hcl 40 MG tablet Discontinued 40 mg PO AT BEDTIME September 11, 2020 12:00am August 21, 2024 4:01pm DEPRESSION Start: 02-14-2013 take 1 tablet by keiry th once daily PARoxetine 20 mg tablet Take 1 tablet by mouth once daily. 0 02/14/2013 Active Comment on above: Take 1 tablet by keiry th once daily. polyethylene glycol 3350 177200 mg / potassium chloride 2970 mg / sodium bicarbonate 6740 mg / sodium chloride 5860 mg / sodium sulfate 98299 mg powder for oral solution (15 sources) Osmotic Laxative Start: 08-21-2024 End: 01-30-2025 Peg 3350-Electrolytes (Golytely) 236-22.74-6.74 -5.86 gram recon soln Discontinued 240 mL PO Q10M 4000 0 January 16, 2025 4:58pm January 30, 2025 9:13am take as directed for split dose bowel prep sodium chloride 0.111 meq/ml nasal spray (1 source) Start: 06-19-2010 End: 06-17-2012 SALINE NASAL SPRAY, 0.65% (Nasal Solution) ; 1 (one) [place](s) every hour, as needed for 0 days Quantity: 1 {Bottle(s)} Refills: 0 Ordered: 17-Jun-2012 JEANNETTE Khan Start: 19-Jun-2010 End: 17-Jun-2012 Status: Inactive Comments: Medication taken as needed. Comment on above: Medication taken as needed. sulfamethoxazole 800 mg / trimethoprim 160 mg oral tablet (16 sources) Dihydrofolate Reductase Inhibitor Antibacterial, Sulfonamide Antimicrobial Start: 11-29-2024 End: 01-22-2025 Sulfamethoxazole-Trime thoprim (Bactrim Ds) 800-160 mg tablet Discontinued 1 {tbl} PO TWICE A DAY 14 0 November 29, 2024 12:00am January 22, 2025 10:10am Start: 10-10-2017 End: 10-13-2017 take 1 tablet by mouth twice daily Sulfamethoxazole-Trimethoprim 800-160 MG Oral Tablet ; 1 (one) Tablet two times daily for 7 days Quantity: 14 {Tablet} Refills: 0 Ordered: 13-Oct-2017 MD Nolan WOLF Start: 10-Oct-2017 End: 13-Oct-2017 Status: Inactive Start: 06-03-2015 End: 06-13-2015 take 1 tablet by mouth twice daily BACTRIM DS, 800-160MG (Oral Tablet) ; 1 (one) Tablet two times daily for 10 days Quantity: 20 {Tablet} Refills: 0 Ordered: 03-Jun-2015 MD Nolan WOLF Start: 03-Jun-2015 End: 13-Jun-2015 Status: Inactive Start: 04-09-2013 End: 02-19-2014 take 1 tablet by mouth twice daily BACTRIM DS, 800-160MG (Oral Tablet) ; 1 (one) Tablet two times daily for 7 days Quantity: 14 {Tablet} Refills: 0 Ordered: 12-Feb-2014 MD Nolan WOLF Start: 12-Feb-2014 End: 19-Feb-2014 Status: Inactive Comments: [facility] Start: 08-15-2012 End: 08-25-2012 take 1 tablet by mouth twice daily BACTRIM DS, 800-160MG (Oral Tablet) ; 1 (one) Tablet two times daily for 10 days Quantity: 20 {Tablet} Refills: 0 Ordered: 15-Aug-2012 MD Nolan WOLF Start: 15-Aug-2012 End: 25-Aug-2012 Status: Inactive Comment on above: Take 1 tablet by [facility] triamcinolone acetonide 5 mg/ml topical cream (1 source) Corticosteroid Start: 08-15-2012 End: 08-29-2012 TRIAMCINOLONE ACETONIDE, 0.5% (External Cream) ; 1 (one) Cream bid for up to 14 days, then off x 14 days for 14 days Quantity: 1 {tube} Refills: 0 Ordered: 23-Nov-2012 MD Nolan WOLF Start: 15-Aug-2012 End: 29-Aug-2012 Status: Inactive Vitamin D (20 sources) Start: 04-14-2016 End: 04-14-2016 Vitamin D Discontinued April 14, 2016 11:46am April 14, 2016 11:48am Start: 04-14-2016 End: 04-14-2016 Vitamin D Discontinued 2015 12:00am April 14, 2016 10:48am Start: 04-14-2016 End: 04-14-2016 Vitamin D Discontinued 2015 1:00am April 14, 2016 11:48am Problems Active Problems Problem Classification Problem Date Documented Date Episodic/Chronic Abdominal pain (2 sources) Abdominal pain; Translations: [Unspecified abdominal pain] 03-20-2015 Episodic Acute bronchitis (5 sources) Acute bacterial bronchitis; Translations: [Acute bronchitis due to other specified organisms] 09-20-2016 Episodic Administrative/social admission (7 sources) Patient encounter status; Translations: [Counseling, unspecified] 10-03-2018 Episodic Biliary tract disease (1 source) Calculus of gallbladder without mention of cholecystitis, without mention of obstruction 02-12-2013 Episodic Calculus of urinary tract (20 sources) Ureteric stone; Translations: [Calculus of ureter] 09-11-2020 Episodic Chronic ulcer of skin (20 sources) Pressure ulcer of buttock stage 1; Translations: [Pressure ulcer of right buttock, stage 1] Onset: 09-29-19 Chronic Comment on above: midline Congestive heart failure; nonhypertensive (1 source) Congestive heart failure; nonhypertensive Onset: 03-11-20 18 03-15-2018 Comment on above: CHF, Acute resp fail ure, R/O sepsis; Disch 03/14/18 Contraceptive and procreative management (8 sources) Contraceptive surveillance, unspecified 11-10-2011 Episodic Esophageal disorders (15 sources) Gastro-esophageal reflux disease without esophagitis; Translations: [Gastroesophageal reflux disease] Onset: 09-29-1908-21-2024 Chronic Essential hypertension (5 sources) Benign hypertension; Translations: [Essential (primary) hypertension] Onset: 12-15-1910-03-2018 Chronic Genitourinary symptoms and ill-defined conditions (1 source) Unspecified urinary incontinence; Translations: [Unspecified urinary incontinence] Onset: 01-23-20 Chronic Genitourinary symptoms and ill-defined conditions (6 sources) Blood in urine; Translations: [Hematuria, unspecified] 05-05-2017 Episodic Immunizations and screening for infectious disease (1 source) Other specified vaccinations against streptococcus pneumoniae [pneumococcus] 03-19-2010 Episodic Mood disorders (5 sources) Recurrent major depressive episodes, mild ; Translations: [Major depressive disorder, recurrent, mild] 10-03-2018 Chronic Comment on above: Agitated. Mycoses (7 sources) Candidiasis of vagina; Translations: [Candidiasis of vulva and vagina] 08-11-2018 Episodic Nervous system congenital anomalies (20 sources) Spina bifida; Translations: [Spina bifida, unspecified] Onset: 04-16-20 Chronic Open wounds of extremities (20 sources) Open wound of foot; Translations: [Unspecified open wound, unspecified foot, initial encounter] 11-17-2018 Episodic Other and unspecified benign neoplasm (1 source) Benign neoplasm of skin of trunk; Translations: [Melanocytic nevi of trunk] 04-05-2011 Episodic Other gastrointestinal disorders (8 sources) Chronic idiopathic constipation; Translations: [Chronic idiopathic constipation] 01-30-2025 Chronic Other gastrointestinal disorders (2 sources) Chronic idiopathic constipation; Translations: [Chronic idiopathic constipation] Onset: 02-15-20 Chronic Other gastrointestinal disorders (9 sources) Gastrointestinal tract problem; Translations: [Other specified symptoms and signs involving the digestive system and abdomen] 08-21-2024 Episodic Other gastrointestinal disorders (17 sources) Constipation; Translations: [Constipation, unspecified] 08-21-2024 Episodic Other inflammatory condition of skin (2 sources) Intertrigo; Translations: [Erythema intertrigo] 07-20-2016 Episodic Other nervous system disorders (2 sources) Ventriculoperitoneal shunt in situ; Translations: [Presence of cerebrospinal fluid drainage device] Onset: 03-12-20 13 03-12-2013 Chronic Other nervous system disorders (2 sources) Hydrocephalus; Translations: [Hydrocephalus, unspecified] Onset: 03-12-20 13 03-12-2013 Chronic Other nervous system disorders (1 source) Presence of cerebrospinal fluid drainage device; Translations: [S/P ACCOUNT SERVICES REPRESENTATIVE shunt] Onset: 03-12-20 13 Chronic Other nervous system disorders (1 source) Hydrocephalus, unspecified; Translations: [Hydrocephalus, unspecified type (HCC)] Onset: 03-12-20 13 Chronic Other nutritional; endocrine; and metabolic disorders (2 sources) Body mass index 30+ - obesity; Translations: [Body mass index (BMI) 34.0-34.9, adult] 09-13-2017 Chronic Other skin disorders (2 sources) Eruption; Translations: [Rash and other nonspecific skin eruption] 06-01-2013 Episodic Other upper respiratory disease (9 sources) Seasonal allergy; Translations: [Other seasonal allergic rhinitis] 08-21-2024 Chronic Other upper respiratory infections (5 sources) Chronic sinusitis; Translations: [Chronic sinusitis, unspecified] 2016 Chronic Other upper respiratory infections (11 sources) Acute bacterial sinusitis; Translations: [Acute sinusitis, unspecified] 08-11-2018 Episodic Pneumonia (except that caused by tuberculosis or sexually transmitted disease) (20 sources) Pneumonia due to Gram negative bacteria; Translations: [Pneumonia due to other Gram-negative bacteria] 11-17-2018 Episodic Residual codes; unclassified (20 sources) Edema of right lower limb; Translations: [Localized edema] 11-17-2018 Episodic Residual codes; unclassified (20 sources) H/O Spinal surgery; Translations: [Other specified postprocedural states] 08-29-2019 Episodic Comment on above: had vertebral rods p laced throughout thoracolumbar region and sacrum Septicemia (except in labor) (20 sources) Sepsis due to urinary tract infection; Translations: [Sepsis, unspecified organism] 09-11-2020 Episodic Skin and subcutaneous tissue infections (3 sources) Cellulitis of right foot; Translations: [Cellulitis of right lower limb] 04-09-2016 Episodic Unclassified (1 source) Post Op Onset: 12-29-19 23 Unclassified (1 source) [facility] Onset: 03-07-20 18 06-13-2018 Comment on above: Urosepsis, spina bif oralia; Admit Dr Brar; Disch 03/10/19 Unclassified (1 source) cough - The cough has been occurring for 10 days. The cough is characterized as productive of purulent sputum. The symptoms have been associated with runny nose (yellow), while the symptoms have not been associated with chest pain, dyspnea, fever or sore throat. Note for cough: Seen 03/23/2016 at [place] 2016 Unclassified (1 source) [ADDITIONAL REASON] Urinary frequency - Note for Urinary frequency: Has urinary incontinence 2016 Urinary tract infections (20 sources) Acute urinary tract infection; Translations: [Urinary tract infection, site not specified] Onset: 09-05-19 18 10-13-2017 Episodic Comment on above: K. oxytoca resistant to ampicillin Viral infection (1 source) Verruca vulgaris; Translations: [Viral wart, unspecified] 03-24-2011 Episodic Past or Other Problems Problem Classification Problem Date Documented Date Episodic/Chronic Headache; including migraine (1 source) Headache; including migraine 06-09-2011 Open wounds of head; neck; and trunk (1 source) Unspecified open wound of lower back and pelvis without penetration into retroperitoneum, initial encounter; Translations: [Wound of sacral region, initial encounter] Onset: 3 Episodic Other gastrointestinal disorders (1 source) Constipation, unspecified; Translations: [Constipation, unspecified] Onset: 5 Episodic Other screening for suspected conditions (not mental disorders or infectious disease) (2 sources) Encounter for screening for diabetes mellitus; Translations: [Encounter for screening for cardiovascular disorders] Onset: 5 Episodic Pneumonia (except that caused by tuberculosis or sexually transmitted disease) (1 source) Pneumonia (except that caused by tuberculosis or sexually transmitted disease) 03-03-2011 Residual codes; unclassified (1 source) Localized edema; Translations: [Edema of lower extremity] Onset: 3 Episodic Unclassified (1 source) HYPERTENSION - Note for HYPERTENSION: Here for exam. 10-03-2018 Unclassified (1 source) Sinus pain - The sinus pain has been occurring for 5 days. There has been associated cough, nasal stuffiness and sore throat. Note for Sinus pain: Taking Mucinex. Was seen for this in June. Here for exam. 08-11-2018 Unclassified (1 source) cough - The onset of the cough has been sudden and has been occurring for 1 week. The course has been increasing. The cough is characterized as dry. The symptoms have been associated with chest pain, dyspnea, headache (frontal), hoarseness, runny nose, sore throat and wheezing. Note for cough: C/O ears ringing. 06-12-2018 Unclassified (1 source) recheck after being in the hospital - The diagnosis of acute respiratory failure with hypoxia, sepsis, pneumonia. The date of admission was 03/11/18 and date of discharge was 03/14/18. The hospitalization was at [facility]. Note for recheck after being in the hospital: Pt said she is feeling better. Pt is seeing Dr. Mack and Dr. Hernandez. [facility] is seeing pt for P.T. and O.T. Here for exam. 03-28-2018 Unclassified (1 source) [ADDITIONAL REASON] Transition into care - The patient is transitioning into care from a hospital and a summary of care was reviewed. 03-28-2018 Unclassified (1 source) UTI* - The symptoms have been occurring for 3 days. The symptoms have been associated with other (feels ill.). Note for Infection: pt gets cathed for urine. Sees urologist at [facility] and would to see about someone in [facility] [place]. c/o frequent UTI's. 10-10-2017 Unclassified (1 source) visit for new wheel chair - Here for MOBILITY EXAMINATION 09-27-2017 Unclassified (1 source) !Patient notification of lab results - Maryann. The test(s) that you had done were/was a urine culture (The bacterium causing the infection is not sensitive to the amoxicillin. Please stop the amoxicillin and start Bactrim. I am sending this to the pharmacy.). You should call our office if you have any questions. Please let us know if your symptoms do not improve. 09-15-2017 Unclassified (1 source) Routine Check - Note for Routine Check : Spina bifida. Pt needs an order for a new wheelchair and an order for physical therapy. Here for exam. 09-13-2017 Unclassified (1 source) !Patient notification of lab results - Pena. The test(s) that you had done were/was a urine culture. Your tests showed the following abnormalities: infection from E.coli bacteria, which is sensitive to amoxicillin . Please continue your current medication/therapy and let us know if your symptoms do not improve. 08-27-2017 Unclassified (1 source) cough - The onset of the cough has been sudden and has been occurring for 10 days. The course has been recurrent. The symptoms have been associated with chest pain, dyspnea, headache, hoarseness, night sweats, runny nose, sore throat and wheezing. Note for cough: Here for exam. 09-20-2016 Unclassified (1 source) !Patient notification of lab results - Kornhaus. The test(s) that you had done were/was a urine culture (There was no single definitive bacterial organism noted to grow on the urine culture. You may stop the antibiotics if you have not already completed them). You should call our office if you have any questions. Please let us know if your symptoms do not improve. 07-22-2016 Unclassified (1 source) Rash - The onset of the rash has been acute and has been occurring for 1 week. The rash is characterized as red. The rash was first seen on the abdomen (under breasts and armpits) and the groin. There has been associated itching and pain. Note for Rash: Here for exam. 07-20-2016 Unclassified (1 source) [ADDITIONAL REASON] Blood in urine - The onset of the blood in urine has been acute. 07-20-2016 Unclassified (1 source) Cellulitis - Symptoms include swelling (improving), drainage and erythema. Symptoms are located on the right foot. Note for Cellulitis: Seen on office on 04/07/16, sent to ER. Started Ceftin 500mg bid. Jeanette culture done. 04-09-2016 Unclassified (1 source) [ADDITIONAL REASON] Transition into care - The patient is transitioning into care from an emergency room ([facility] 04/07/16) and a summary of care was reviewed . Note for Transition into care: . 04-09-2016 Unclassified (1 source) Skin lesion - The skin lesion has been occurring for 1 day. The skin lesion is located on the lower extremity (right foot). 04-07-2016 Unclassified (1 source) !Patient notification of lab results 1 - [facility]. The test(s) that you had done were/was a urine culture. Your tests showed the following abnormalities: infection sensitive to Bactrim . 03-31-2016 Unclassified (1 source) cough - The cough has been occurring in a persistent pattern for 4 days. The course has been increasing. The cough is characterized as productive of mucoid sputum. The symptoms have been associated with runny nose (sinus congestgion). 03-23-2016 Unclassified (1 source) Sinus pain - The sinus pain has been occurring for 2 days. There has been associated eye pain, fever, nasal stuffiness and sore throat. Note for Sinus pain: . 08-02-2015 Unclassified (1 source) !Patient notification of lab results 1 - [facility]. The test(s) that you had done were/was a urine culture (This showed an infection that is susceptible to the Bactrim, so please complete the course that was prescribed). 06-09-2015 Unclassified (1 source) cough - The onset of the cough has been acute and has been occurring for 1 week. The cough is characterized as productive of mucoid sputum. The symptoms have been associated with runny nose and sore throat, while the symptoms have not been associated with fever. Note for cough: Here for exam. 06-03-2015 Unclassified (1 source) [ADDITIONAL REASON] Urine problems - Note for Urine problems: Mother said pt's urine has been cloudy for a few days. 06-03-2015 Unclassified (1 source) !Patient notification of lab results 1 - Prashanth. The test(s) that you had done were/was a urine culture. Your tests showed the following abnormalities: urinary infection that is sensitive to sulfa antibiotics . 03-03-2015 Unclassified (1 source) !Patient notification of lab results 1 - [facility]. The test(s) that you had done were/was a chest X-ray. The results of your testing were normal . You should call our office if you have any questions. Please follow up as scheduled and let us know if your symptoms do not improve. 11-13-2014 Unclassified (1 source) recheck - other illness (cough and sinusitis.). Note for recheck: seen by Dr Christophe Pena 11-04-14 and rx with doxycycline. Not improving. Here for exam. 11-12-2014 Unclassified (1 source) Sinusitis - The onset of the sinusitis has been acute and has been occurring for 1 week. There has been associated nasal stuffiness and runny nose. Note for Sinusitis: pt wants to do urine culture.. 11-04-2014 Unclassified (1 source) !Patient notification of lab results 1 - [facility]. The test(s) that you had done were/was a urine culture (This did show a bladder infection and I have sent antibiotic to the pharmacy. Message left on voice mail for patient and her mother (Mirella Pena). Call if not doing better.). 07-05-2014 Unclassified (1 source) !Patient notification of lab results 1 - Amanda. The test(s) that you had done were/was a urine culture. Your tests showed the following abnormalities: continued enterrococcus . Please adjust your therapy by repeat Amoxicillin as prior and repeat culture in two weeks. 06-04-2014 Unclassified (1 source) Pyelonephritis - Symptoms include flank pain (left , much improved), while symptoms do not include fever. Note for Pyelonephritis: Pt was at [facility] from 05/13/14 to 05/14/14. Pt said she is feeling a little better. 05-15-2014 Unclassified (1 source) [ADDITIONAL REASON] Transition into care - The patient is transitioning into care from a hospital and a summary of care was reviewed . 05-15-2014 Unclassified (1 source) !Patient notification of lab results 1 - [facility]. The test(s) that you had done were/was a urine culture (This was positive and the antibiotic was an acceptable choice. Please finish the medication). You should call our office if you have any questions. 02-16-2014 Unclassified (1 source) Depressive Disorders - The last clinic visit was 5 month(s) ago. Note for Depressive disorders: needs refill on paxil Here for exam. 02-12-2014 Unclassified (1 source) [ADDITIONAL REASON] Sinusitis - The onset of the sinusitis has been acute and has been occurring for days. There has been associated cough, itchy eyes, itchy nose and nasal stuffiness. 02-12-2014 Unclassified (1 source) [ADDITIONAL REASON] UTI* - The urinary symptoms are described as other: cath urine specimen is cloudy. 02-12-2014 Unclassified (1 source) !Patient notification of lab results 1 - [facility]. The test(s) that you had done were/was a urinary tract infection. The organisms that grew on the culture are sensitive to the antibiotic you are taking. You should call our office if you have any questions. Please continue your current medication/therapy and follow up as scheduled. 12-17-2013 Unclassified (1 source) Blood in urine - The onset of the blood in urine has been acute and has been occurring for hours. The urine is described as bloody with clots. Note for Blood in urine: Here for exam. 12-12-2013 Unclassified (1 source) !Patient notification of lab results 1 - Pena. The test(s) that you had done were/was a URINE CULTURE. Your tests showed the following abnormalities: bacteria in urine which is sensitive to Bactrim . You should call our office for a new prescription (for Bactrim DS one tablet 2x/day for one week). 08-20-2013 Unclassified (1 source) recheck - other illness (wants refill on paxil). Note for recheck: . 08-16-2013 Unclassified (1 source) [ADDITIONAL REASON] UTI* - Note for Infection: cath urine. 08-16-2013 Unclassified (1 source) [ADDITIONAL REASON] Earache - The symptoms have been associated with decreased hearing and sore throat. 08-16-2013 Unclassified (1 source) !Patient notification of lab results 1 - Amanda. The test(s) that you had done were/was a urine culture. Your tests showed the following abnormalities: bacteria sensitive to Bactrim . Please continue your current medication/therapy (repeat culture in 2 weeks). 04-11-2013 Unclassified (1 source) cough - The cough has been occurring for 3 days. The course has been constant. The cough is characterized as productive of purulent sputum. The symptoms have been associated with hoarseness, runny nose (yellow) and sore throat, while the symptoms have not been associated with chest pain, dyspnea or fever. 04-07-2013 Unclassified (1 source) [ADDITIONAL REASON] Urine problems - Note for Urine problems: vomiting 04-07-2013 Unclassified (1 source) !Patient notification of lab results 1 - Pena. The test(s) that you had done were/was a urine Culture. Your tests showed the following abnormalities: still bacteria in urine . Please adjust your therapy by taking Cipro 500 mg 2x/day for 1 week. Please be aware that we have sent copies to Dr Lynch at (Dr Lynch at [facility]). 02-15-2013 Unclassified (2 sources) Unspecified Diagnosis 02-12-2013 Unclassified (1 source) Abdominal Pain, Female - Note for Abdominal pain: seen at [facility] for abd pain. 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 Had UTI that was treated by [facility] 01-30-13 and wants lab order for recheck of urine. Uses percocet for pain.. 02-12-2013 Unclassified (1 source) Sinusitis - The onset of the sinusitis has been acute and has been occurring for 3 days. There has been associated cough, nasal stuffiness and runny nose. 08-15-2012 Unclassified (1 source) [ADDITIONAL REASON] Rash - The onset of the rash has been acute. The rash was first seen on the lower extremity (right). Note for Rash: Mother used hydrocortiosone cream 08-15-2012 Unclassified (1 source) [ADDITIONAL REASON] UTI* - The urine is described as other: cloudy. Note for Infection: this is a cath specimen. 08-15-2012 Unclassified (1 source) !Patient notification of lab results 1 07-01-2012 Unclassified (1 source) Sinusitis - The onset of the sinusitis has been acute and has been occurring for 2 days. There has been associated fever and nasal stuffiness. 06-17-2012 Unclassified (1 source) [ADDITIONAL REASON] cough - The cough has been occurring for 1 day. The course has been increasing. The cough is characterized as productive of purulent sputum. The symptoms have been associated with chest pain, dyspnea, runny nose (green x 1 week) and sore throat, while the symptoms have not been associated with fever or hoarseness. 06-17-2012 Unclassified (1 source) cough - The cough has been occurring for 1 week. The cough is characterized as productive of purulent sputum. The symptoms have been associated with fever (not today). Note for cough: . 12-02-2011 Unclassified (1 source) INJECTION - medication name(s): Medroxyprogesterone (Depo). Note for INJECTION: pt instructed to return for next Depo between Jan 25 and Feb 08 11-10-2011 Unclassified (1 source) INJECTION - medication name(s): Depoprovera. 08-10-2011 Unclassified (1 source) INJECTION - medication name(s): MedroxyProgesterone. 05-19-2011 Unclassified (1 source) !Patient notification of lab results 1 - Dr. Pena. The test(s) that you had done were/was a skin b iopsy. The results of your testing were normal (skin lesion was a benign mole) . 04-07-2011 Unclassified (1 source) Warts.. - The lesions are located on the posterior trunk. Note for Warts..: Multiple nevi 04-05-2011 Unclassified (1 source) Skin lesion - The skin lesion has been occurring for 1 year. The skin lesion is located on the trunk (right shoulder). 03-24-2011 Unclassified (1 source) cough - The onset of the cough has been sudden and has been occurring in a persistent pattern for 10 days. The cough is characterized as productive of mucoid sputum (YELLOW-GREEN). The symptoms have been associated with dyspnea, headache, hoarseness, runny nose and sore throat, while the symptoms have not been associated with chest pain. Note for cough: Also c/o earache and vomiting after coughing 02-17-2011 Unclassified (1 source) Depoprovera injection 08-27-2010 Unclassified (1 source) Patient notification of lab results - Dr. Hodge. The test(s) that you had done were/was a urine culture. For your age and medical condition your tests showed the following abnormalities: e coli urinary tract infection . Please make the following adjustments to your therapy: you need an antibiotic called ceftin 250 mgm 2 times a day for 10 days and know that we will call this to your pharmacy. 07-06-2010 Unclassified (1 source) Cough - The onset of the cough has been acute and has been occurring for 1 week. The cough is characterized as productive of mucoid sputum. The symptoms have been associated with fever, headache and runny nose. Note for Cough: wants urine checked for infection. Mother cathed pt in office. 06-19-2010 Unclassified (1 source) Contraception - She is nulligravida. The last clinic visit was 3 month(s) ago. The reasons for contraception include bleeding control. 06-11-2010 Urinary tract infections (1 source) Urinary tract infections 09-13-2017 Results Test Name Value Interpretation Reference Range Facility URINE CULTURE [CCL]on 2024 Bacteria identified Cx Nom (U) URCUL See Results Below See Below CULTURE, URINE MIXED MICROBIOTA INCLUDING 4 DIFFERENT COLONY TYPES, AND NO ONE TYPE >=100,000 CFU/ml Mixed microbiota including 4 different colony types, and no one SOURCE: Urine (Nonspecific) [facility] [address] [place] [address] Hardik Zarate III, M.D. 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 Allergies Given (Motrin) PO 400 verified and confirmed 5 rights. Information reviewed with 21:25 04/02/2025 mg (NOW x1) patient including reason for taking this medication. Yeison Webb R.N. Verbalizes understanding. - 21:26 Yeison Webb R.N. Scanned TraMADol 22:32 04/02 TraMADol (Ultram) PO 50 mg given. Allergies Given (Ultram) PO 50 verified and confirmed 5 rights. Information reviewed with 22:32 04/02/2025 mg (NOW x1, patient including reason for taking this medication and Yeison Webb R.N. HIGH ALERT sedative warning. Verbalizes understanding. - 22:32 Yeison Scanned MEDICATION) Jon R.N. TraMADol 00:39 04/03 TraMADol (Ultram) PO 50 mg given. Allergies Given (Ultram) PO 50 verified and confirmed 5 rights. Information reviewed with 00:39 04/03/2025 mg (NOW x1, patient including reason for taking this medication. Yeison Webb R.N. HIGH ALERT Verbalizes understanding. - 00:40 Yeison Webb RAlvinN. Scanned MEDICATION) Bactrim DS PO 1 01:07 04/03 Bactrim DS PO 1 tab given. Allergies verified Given tab (NOW x1) and confirmed 5 rights. Information reviewed with patient 01:07 04/03/2025 including reason for taking this medication. Verbalizes Yeison Webb R.N. understanding. - 01:07 Yeison Webb R.N. Scanned 1 of 1 [facility] ED NURSES CLINICAL NOTEon ED NURSES CLINICAL NOTE Nurse Narrative - JULIETTE CREWS, : 1975, , Nurse Clinical Narrative [address] [place] [address] [id number] 04/02/2025 19:28:00 Patient: JULIETTE CREWS Sex: Female : 1975 Age: 50y Disposition: Discharge to Home Disposition Decision Time: 01:00 04/03/2025 Departure Time: 01:10 04/03/2025 TRIAGE Arrived by private vehicle. Historian: (patient). ( Pt c/o hypertension and headache.). Triage time: 19:36 04/02/2025. Acuity: LEVEL 3. Chief Complaint: HEADACHE. This started just prior to arrival. SEPSIS SCREEN: NEGATIVE. SIRS criteria negative. -- 19:40 04/02/25 EDT Richard Cadena R.N. 19:40 04/02/25. BP: 177/112 MAP: 134. HR: 96. RR: 16. O2 saturation: 95% Temperature: 98.2 F (temporal). Pain level now 10/10. -- 19:40 04/02/25 EDT Richard Cadena R.N. Measurements: 19:39 04/02/25 Wt: 59.0 kg -- 19:39 04/02/25 EDT Richard Cadena R.N. Medications: Mucus Relief ER 600 mg tablet, extended release: 1 tablet twice a day . -- 22:19 04/02/25 EDT Yeison Webb R.N. Constulose 10 gram/15 mL oral solution: 30 ml twice a day . -- 22:19 04/02/25 EDT Yeison Webb R.N. loratadine 10 mg tablet: 1 tablet once a day . -- 22:19 04/02/25 EDT Yeison Webb R.N. 1 of 4 Nurse Narrative - ELEONORAJULIETTE Francisco, : 1975, , budesonide 0.25 mg/2 mL suspension for nebulization: 1 vial twice a day . -- 22:19 04/02/25 EDT Yeison Webb R.N. lubiprostone 24 mcg capsule -- 22:19 04/02/25 EDT Yeison Webb R.N. sertraline 50 mg tablet: 1 tablet once a day . -- 22:19 04/02/25 EDT Yeison Webb R.N. psyllium husk 0.4 gram capsule: 2 capsule once a day . -- 22:19 04/02/25 MAVIS Webb R.N. potassium citrate ER 10 mEq (1,080 mg) tablet,extended release: 1 tablet twice a day . -- 22:19 04/02/25 MAVIS Webb R.N. oxybutynin chloride 5 mg tablet: 1 tablet three times a day . -- 22:19 04/02/25 MAVIS Webb R.N. omeprazole 20 mg capsule,delayed release: 1 capsule once a day . -- 22:19 04/02/25 MAVIS Webb R.N. mupirocin 2 % topical ointment: 1 gram once a day . -- 22:19 04/02/25 MAVIS Webb R.N. brompheniramine-pseudoephe drine-DM 2 mg-30 mg-10 mg/5 mL oral syrup: 10 ml every four hours . -- 22:19 04/02/25 MAVIS Webb R.N. bisacodyl 5 mg tablet,delayed release: 1 tablet once a week . -- 22:19 04/02/25 MAVIS Webb R.N. paroxetine 40 mg tablet: Stopped 10/25/2024. -- 22:19 04/02/25 CAPRICET Yeison Webb R.N.Correction -- 22:40 04/02/25 CAPRICET Cary Zaragoza R.N. oxybutynin chloride ER 10 mg tablet,extended release 24 hr: Stopped 10/25/2024. -- 22:19 04/02/25 EDT Yeison Webb R.N.Correction -- 22:38 04/02/25 EDT Cary Zaragoza R.N. Pt did not have updated med list -- 22:19 04/02/25 EDT Yeison Webb R.N. aspirin 81 mg tablet: 81 mg once a day . -- 22:34 04/02/25 EDT Cary Zaragoza R.N. lisinopriL 20 mg tablet: 20 mg once a day . -- 22:37 04/02/25 EDT Cary Zaragoza R.N. 19:36 04/02/25. [facility] Pharmacy: ([facility] -- 19:40 04/02/25 EDT Richard Cadena R.N. Allergies: azithromycin -- 19:38 04/02/25 EDT Richard Cadena R.N. amoxicillin -- 19:38 04/02/25 EDT Richard Cadena R.N. Augmentin -- 19:38 04/02/25 EDT Richard Cadena R.N. Cipro -- 19:38 04/02/25 EDT Richard Cadena R.N. Problems: Spina bifida -- 19:38 04/02/25 EDT Richard Cadena R.N. COPD - Chronic Obstructive Pulmonary Disease -- 19:38 04/02/25 EDT Richard Cadena R.N. Surgeries: 2 of 4 Nurse Narrative - JULIETTE CREWS, : 1975, , Ventriculo Peritoneal Shunt Surgery -- 19:38 04/02/25 EDT Richard Cadena R.N. Cholecystectomy -- 19:38 04/02/25 EDT Richard Cadena R.N. Lithotripsy -- 19:38 04/02/25 CAPRICET Richard Cadena R.N. Back Surgery -- 19:38 04/02/25 CAPRICET Richard Cadena R.N. History 19:36 04/02/25. SOCIAL HX: Never smoker. No alcohol use or drug use. The patient has not traveled outside the [place] Infectious disease exposure: No infectious disease exposure. ABUSE ASSESSMENT: The patient answered yes to the question(s) Do you feel safe in your home? and no to the question(s) Are you afraid to go home?. SELF HARM ASSESSMENT: Self harm assessment was performed. The patient answered no to the question(s) Have you recently felt down, depressed, or hopeless? and Do you have thoughts of harming or killing yourself?. FALL RISK ASSESSMENT: Fall risk assessment completed. No risk factors identified. -- 19:40 04/02/25 EDT Richard Cadena R.N. PHYSICAL ASSESSMENT 21:40 04/02/25. To room via wheelchair. ( headache, sensitive to light, bp higher than normal). GENERAL / NEURO / PSYCH: Alert. Oriented X 4. Appears in pain. Speech within normal limits. -- 21:40 04/02/25 EDT Yeison Webb R.N. NURSING PROGRESS NOTES 20:44 04/02/25. ( ok'd pt taking home meds). -- 20:44 04/02/25 EDT Yeison Webb R.N. 21:25 04/02/25. Two patient identifiers checked. Call light pl (more content not included)... [facility] ED ORDER SHEET (CPOE ONLY)on 04-03-2025 ED ORDER SHEET (CPOE ONLY) Order Sheet - JULIETTE CREWS, : 1975, , Order Sheet [address] [address] [id number] 04/02/2025 Patient: JULIETTE CREWS Sex: Female : 1975 Age: 50y MEASUREMENTS: Wt: 59.0 kg ALLERGIES: Augmentin, Cipro, amoxicillin, azithromycin MEDICATION/IV/DRIP/FLUID ORDERS Acknowledge Order Description Priority Entered d Completed Ibuprofen (Motrin) PO400 20:43 04/02/2025 20:45 21:26 mg (NOW x1) Kilo Benson, 04/02/2025 04/02/2025 D.O. Yeison Webb, Yeison Webb R.N. RFanny TraMADol (Ultram) PO50 22:20 04/02/2025 22:23 22:32 mg (NOW x1, HIGH ALERT Kilo Benson, 04/02/2025 04/02/2025 MEDICATION) Yeison Leiva R.N. RAlvinNAlvin Reason for ordering with Benefits outweigh risks --22:20 04/02/2025 Kilo alerts: Ivanna Benson TraMADol (Ultram) PO50 23:53 04/02/2025 23:59 00:40 mg (NOW x1, HIGH ALERT Kilo Benson, 04/02/2025 04/03/2025 MEDICATION) Yeison Leiva R.NAlvin R.NAlvin Reason for ordering with Benefits outweigh risks --23:53 04/02/2025 Kilo alerts: Ivanna Benson 1 of 3 Order Sheet - JULIETTE CREWS, : 1975, , Bactrim DS PO1 tab (NOW 00:50 04/03/2025 00:50 01:07 x1) Kilo Benson, 04/03/2025 04/03/2025 Yeison Leiva R.N. R.NAlvin Reason for ordering with Benefits outweigh risks --00:50 04/03/2025 Kilo alerts: Ivanna Benson LAB ORDERS Acknowledge Order Description Priority Entered d Collected Completed CBC w Diff Stat Stat 20:43 21:04 04/02/2025 04/02/2025 Yeison Thrasher R.N. D.OAlvin CMP Stat Stat 20:43 21:04 04/02/2025 04/02/2025 Yeison Thrasher R.N. D.O. Sed. Rate Stat Stat 20:43 21:04 04/02/2025 04/02/2025 Yeison Thrasher R.N. D.O. Urinalysis Stat Stat 00:20 00:32 00:40 04/03/2025 04/03/2025 04/03/2025 Yeison Thrasher R.NBaltazar QueenO. Urine Culture [CCL] Stat 00:20 00:32 00:40 Stat 04/03/2025 04/03/2025 04/03/2025 Yeison Thrasher R.N. Seth Lapp, R.N. 2 of 3 Order Sheet - JULIETTE CREWS, : 1975, , D.OAlvin DIAGNOSTIC STUDY ORDERS Acknowledge Order Description Priority Entered d Completed CT Brain wo Cont Stat Stat 20:43 04/02/2025 21:04 Kilo Benson, 04/02/2025 D.OAlvin Webb R.N. Order 20:43 Status: Not . Kilo Benson, Comments: 04/02/2025: D.OAlvin Reason for Study: Head Pain STAFF ORDERS Acknowledge Order Description Priority Entered d Collected Completed Vitals (blood pressure 23:54 23:59 large cuff) 04/02/2025 04/02/2025 Yeison Thrasher R.N. D.OAlvin [Electronically signed by Kilo Benson D.O. (04/03/2025 04:14 EDT)] 3 of 3 [facility] ED PHYSICIAN CLINICAL REPORT on 04-03-2025 ED PHYSICIAN CLINICAL REPORT Narrative - JULIETTE CREWS, : 1975, , Physician Clinical Narrative [address] [address] [id number] 04/02/2025 19:28:00 Patient: JULIETTE CREWS Sex: Female : 1975 Age: 50y Disposition: Discharge to Home Disposition Decision Time: 01:00 04/03/2025 Departure Time: 01:10 04/03/2025 Measurements Wt: 59.0 kg Initial Vital Sign Measured Olinda Time BP MAP HR RR O2Sat ETCO2 Temp n GCS RTS 19:40 177/112 134 96 16 95% 98.2 F 10 04/02/2025 Time Seen: 20:21 04/02/2025. Historian- patient. Independent historian- family. HISTORY OF PRESENT ILLNESS Chief Complaint: HEADACHE. This started today. Located in the region of the right eye and left eye. No neck pain. Not located in the facial region. No preceding symptoms, blurred vision, photophobia, associated nausea or numbness. No weakness or vomiting. No recent travel. REVIEW OF SYSTEMS Status: Not . 1 of 4 Bernard JULIETTE REDDY, : 1975, , PAST HISTORY COPD - Chronic Obstructive Pulmonary Disease Spina bifida Surgeries: Back Surgery Cholecystectomy Lithotripsy Ventriculo Peritoneal Shunt Surgery Medications: aspirin 81 mg tablet: 81 mg once a day . bisacodyl 5 mg tablet,delayed release: 1 tablet once a week . brompheniramine-pseudoephe drine-DM 2 mg-30 mg-10 mg/5 mL oral syrup: 10 ml every four hours . budesonide 0.25 mg/2 mL suspension for nebulization: 1 vial twice a day . Constulose 10 gram/15 mL oral solution: 30 ml twice a day . lisinopriL 20 mg tablet: 20 mg once a day . loratadine 10 mg tablet: 1 tablet once a day . lubiprostone 24 mcg capsule Mucus Relief ER 600 mg tablet, extended release: 1 tablet twice a day . mupirocin 2 % topical ointment: 1 gram once a day . omeprazole 20 mg capsule,delayed release: 1 capsule once a day . oxybutynin chloride 5 mg tablet: 1 tablet three times a day . potassium citrate ER 10 mEq (1,080 mg) tablet,extended release: 1 tablet twice a day . psyllium husk 0.4 gram capsule: 2 capsule once a day . Pt did not have updated med list sertraline 50 mg tablet: 1 tablet once a day . Allergies: amoxicillin Augmentin azithromycin Cipro 2 of 4 Bernard Baptiste JULIETTE CREWS, : 1975, , ADDITIONAL NOTES The nursing notes have been reviewed. PHYSICAL EXAM Vital Signs: Have been reviewed. PROGRESS AND PROCEDURES MEDICAL DECISION MAKING: (ibuprofen nl help Tramadol dose no 1 helped, then clark returned, no 2 dose helped; ct, labs neg, urine may have uti (cath), will place on abx, patient's respiratory care faculty checked with patient's mother, bactrim is used to to treat her uti; will place on bactrim for three days, till culture returns, sister/respiratory care faculty ok with this plan.). CLINICAL IMPRESSION Recurrent migraine headache. labile blood pressure r/o urinary tract infection. DISCHARGE INSTRUCTIONS (home continue current medications keep up the fluiids add: antibioticL Bactrim Check urine culture 48 hours with your doctor, or with the ER. We will notify you if evidence of infection becomes evident You are welcomed to return anytime. Dylon BENSON< ER PHYSICIAN< Cristobal Gordon). 3 of 4 Narrative - JULIETTE CREWS, : 1975, , Prescription Medications: Bactrim DS 800 mg-160 mg tablet: Take 1 tablet by mouth twice a day for 10 days, dispense 20 tablet. Refills 0. Pharmacy: [facility] [facility] [id number] [place] [address]. Bactrim DS 800 mg-160 mg tablet: Take 1 tablet by mouth twice a day for 10 days, dispense 20 tablet. Refills 0. Pharmacy: [facility] [address] [place] [address]. Understanding of the discharge instructions verbalized by family. (Electronically signed by Kilo Benson D.O. 04/03/25 04:14:32 EDT) Generated by [facility] 4 of 4 Normal [facility] ED SUPER BILLon 04-03-2025 ED SUPER BILL [facility] - ALICIA CREWS : 1975, , [address] [place] [address] [id number] 04/02/2025 Patient: JULIETTE CREWS Sex: Female : 1975 Age: 50y Item Facility Profession Category Description Code al Code Quantity Fee Total Nurse/E/M EMERGENCY 586243 1 $0.00 $0.00 DEPARTMEN T VISIT HIGH/URGEN T SEVERITY (07957-77) Grand Total $0.00 Providers Kilo Benson D.O. Chief Complaint HEADACHE. Principal Diagnosis Recurrent migraine headache. labile blood pressure r/o urinary tract infection. 1 of 2 Superbill - JULIETTE CREWS, : 1975, , ICD-10 Codes G43.909: Migraine, unspecified, not intractable, without status migrainosus 2 of 2 [facility] ED VISIT SUMMARYon ED VISIT SUMMARY Visit JULIETTE Lang : 1975, , Visit [address] [address] [id number] 04/02/2025 Patient: JULIETTE CREWS Sex: Female : 1975 Age: 50y 04/03/2025 04:14 AM EDT ED Arrival:19:28 04/02/2025 Status:not Recent Travel:no EDT Language:eng Adv Directive: Isolation Status: Infectious Disease Ethnicity:N Fall Risk:no risk Exposure:no Measurements:130.0 lb / Self-Harm Status:risk Sepsis Screen:negative 59.0 kg Chief Complaint:HEADACHE and (Pt c/o hypertension and headache.) ALLERGIES amoxicillin Augmentin azithromycin Cipro HOME MEDICATIONS aspirin 81 mg tablet: 81 mg once a day . 1 of 4 Visit JULIETTE Watts, : 1975, , bisacodyl 5 mg tablet,delayed release: 1 tablet once a week . brompheniramine-pseudoephe drine-DM 2 mg-30 mg-10 mg/5 mL oral syrup: 10 ml every four hours . budesonide 0.25 mg/2 mL suspension for nebulization: 1 vial twice a day . Constulose 10 gram/15 mL oral solution: 30 ml twice a day . lisinopriL 20 mg tablet: 20 mg once a day . loratadine 10 mg tablet: 1 tablet once a day . lubiprostone 24 mcg capsule Mucus Relief ER 600 mg tablet, extended release: 1 tablet twice a day . mupirocin 2 % topical ointment: 1 gram once a day . omeprazole 20 mg capsule,delayed release: 1 capsule once a day . oxybutynin chloride 5 mg tablet: 1 tablet three times a day . potassium citrate ER 10 mEq (1,080 mg) tablet,extended release: 1 tablet twice a day . psyllium husk 0.4 gram capsule: 2 capsule once a day . Pt did not have updated med list sertraline 50 mg tablet: 1 tablet once a day . PAST MEDICAL HISTORY / PROBLEMS COPD - Chronic Obstructive Pulmonary Disease Spina bifida PAST SURGICAL HISTORY Back Surgery Cholecystectomy Lithotripsy Ventriculo Peritoneal Shunt Surgery SOCIAL HISTORY Smoking status: No Alcohol use: No Drug use: No ED COURSE MEDICATIONS GIVEN IN EMERGENCY DEPARTMENT 21:25 04/02/25 Ibuprofen (Motrin) PO 400 mg 2 of 4 Visit Overview - JULIETTE CREWS, : 1975, , 22:32 04/02/25 TraMADol (Ultram) PO 50 mg 00:39 04/03/25 TraMADol (Ultram) PO 50 mg 01:07 04/03/25 Bactrim DS PO 1 tab IV SITE INFORMATION INTAKE OUTPUT REASSESMENT (most recent) 21:40 04/02/25. To room via wheelchair. ( headache, sensitive to light, bp higher than normal). GENERAL / NEURO / PSYCH: Alert. Oriented X 4. Appears in pain. Speech within normal limits. VITAL SIGNS First Vitals Last Vitals Temp 19:40 04/02/25 98.2 F Temp 00:57 04/03/25 BP 19:40 04/02/25 177/112 BP 00:57 04/03/25 HR 19:40 04/02/25 96 HR 00:57 04/03/25 RR 19:40 04/02/25 16 RR 00:57 04/03/25 O2 Sat 19:40 04/02/25 95% O2 Sat 00:57 04/03/25 98% Pain 19:40 04/02/25 10 Pain 00:57 04/03/25 0 ETCO2 19:40 04/02/25 ETCO2 00:57 04/03/25 GCS 19:40 04/02/25 GCS 00:57 04/03/25 RTS 19:40 04/02/25 RTS 00:57 04/03/25 PROCEDURES NURSING INTERVENTIONS LABS / STUDIES LABS / STUDIES ORDERED CBC w Diff CMP CT Brain wo Cont Sed. Rate Urinalysis 3 of 4 Visit Overview - JULIETTE CREWS, : 1975, , Urine Culture [CCL] LABS / STUDIES PENDING IMPORT CBC + DIFF CMP with eGFR CT BRAIN W/O CONTRAST SEDRATE URINALYSIS CLINICAL IMPRESSION RECURRENT MIGRAINE HEADACHE 4 of 4 Normal [facility] ED VITALS FLOW SHEETon 04-03 ED VITALS FLOW SHEET Vitals - MIGEL CREWS : 1975, , Vital Sign Flow Sheet [place] [address] [place] [address] [phone] 04/02/2025 Patient: JULIETTE CREWS Sex: Female : 1975 Age: 50y Measurements Wt: 59.0 kg Measured Olinda Time BP MAP HR RR O2Sat ETCO2 Temp n GCS RTS 00:57 98% 0 04/03/2025 00:56 134/103 115 101 04/03/2025 00:44 152/92 109 104 04/03/2025 00:27 129/82 97 100 04/03/2025 00:10 132/87 105 101 04/03/2025 23:56 154/92 108 100 04/02/2025 23:41 126/81 96 97 04/02/2025 23:26 140/116 122 96 04/02/2025 1 of 5 Vitals - JULIETTE CREWS, : 1975, , 23:23 98 95% 04/02/2025 23:18 99 95% 04/02/2025 23:13 98 94% 04/02/2025 23:11 169/90 118 96 04/02/2025 23:08 102 97% 04/02/2025 23:08 157/101 117 99 04/02/2025 23:03 89 95% 04/02/2025 22:58 86 95% 04/02/2025 22:57 169/110 119 92 04/02/2025 22:53 90 95% 04/02/2025 22:48 93 96% 04/02/2025 22:43 95 97% 04/02/2025 22:42 125/96 105 91 04/02/2025 22:38 95 96% 04/02/2025 22:33 98 96% 04/02/2025 2 of 5 JULIETTE Licea, : 1975, , 22:28 90 95% 04/02/2025 22:26 188/116 138 91 04/02/2025 22:23 91 95% 04/02/2025 22:18 89 95% 04/02/2025 22:13 92 95% 04/02/2025 22:08 91 96% 04/02/2025 22:03 98 95% 04/02/2025 21:58 95 99% 04/02/2025 21:53 87 92% 04/02/2025 21:48 87 94% 04/02/2025 21:43 87 96% 04/02/2025 21:41 172/93 131 81 04/02/2025 21:38 86 96% 04/02/2025 21:33 88 96% 04/02/2025 21:28 93 96% 04/02/2025 3 of 5 JULIETTE Licea, : 1975, , 21:26 169/102 124 97 04/02/2025 21:23 101 96% 04/02/2025 21:18 95 96% 04/02/2025 21:03 90 96% 04/02/2025 20:58 91 96% 04/02/2025 20:56 180/109 132 91 04/02/2025 20:53 91 96% 04/02/2025 20:48 89 95% 04/02/2025 20:43 88 96% 04/02/2025 20:41 176/99 124 87 04/02/2025 20:38 87 95% 04/02/2025 20:33 87 96% 04/02/2025 20:28 89 96% 04/02/2025 20:26 179/98 125 85 04/02/2025 20:23 90 96% 04/02/2025 4 of 5 Vitals - JULIETTE CREWS, : 1975, , 20:18 89 96% 04/02/2025 20:13 91 95% 04/02/2025 20:11 191/105 130 89 04/02/2025 20:08 87 95% 04/02/2025 20:03 87 95% 04/02/2025 19:58 94 94% 04/02/2025 19:57 178/103 131 83 04/02/2025 19:40 177/112 134 96 16 95% 98.2 F 10 04/02/2025 5 of 5 Normal [facility] URINALYSISon 04-03-2025 Amorphous 1+ Normal [facility] Comment on above: Performed By: #### 2 68667 #### [facility],[address] [place] [address] Bacteria 3+ Normal [facility] Comment on above: Performed By: #### 2 51306 #### [facility],[address] [place] [address] Bilirubin Ql (U) Negative Normal NORMAL: NEGATIVE [facility] Comment on above: Performed By: #### 2 03200 #### [facility],[address] [place] [address] Casts NONE Normal [facility] Comment on above: Performed By: #### 2 70841 #### [facility],[address] [place] [address] Clarity (U) SL. CLOUDY Abnormal NORMAL: CLEAR [facility] Comment on above: Performed By: #### 2 96502 #### [facility],[address] [place] [address] Color (U) YELLOW Normal NORMAL: YELLOW [facility] Comment on above: Performed By: #### 2 98128 #### [facility],[address] [place] [address]79[address] Crystals LM Nom (Urine sed) NONE Normal [facility] Comment on above: Performed By: #### 2 24037 #### [facility],[address] [place] [address] 72139 Epi Cells OCC Normal [facility] Comment on above: Performed By: #### 2 07159 #### [facility],[address] [place] [address] 55567 Glucose Ql (U) NORM Normal NORMAL: NORMAL [facility] Comment on above: Performed By: #### 2 28809 #### [facility],[address] [place], [place] [id number] Hemoglobin Ql (U) 25 Abnormal NORMAL: NEGATIVE [facility] Comment on above: Performed By: #### 2 84040 #### [facility],[address] [place], [place] [address] Ketone Negative Normal NORMAL: NEGATIVE [facility] Comment on above: Performed By: #### 2 55210 #### [facility],[address] [place] [address] Leukocytes 500 Abnormal NORMAL: NEGATIVE [facility] Comment on above: Performed By: #### 2 27769 #### [facility],[address] [place] [address] 48948 Mucous NONE Normal [facility] Comment on above: Performed By: #### 2 44752 #### [facility],[address] [place] [address] 09833 Nitrite Ql (U) Negative Normal NORMAL: NEGATIVE [facility] Comment on above: Performed By: #### 2 99399 #### [facility],[address] [place] [address] 60715 pH (U) 7.0 [pH] Normal NORMAL: 5.0-8.0 [facility] Comment on above: Performed By: #### 2 96521 #### [facility],[address] [place] [address] Protein Ql (U) 15 Abnormal NORMAL: NEGATIVE [facility] Comment on above: Performed By: #### 2 74208 #### [facility],[address] [place] [address] Rbc 5-10 Normal 0-3/hpf [facility] Comment on above: Performed By: #### 2 92856 #### [facility],[address] [place] [address] Sp [place] 1.010 Normal NORMAL: 1.010-1.030 [facility] Comment on above: Performed By: #### 2 11683 #### [facility],[address] [place] [address] Specimen Type Catheter Normal [facility] Comment on above: Performed By: #### 2 54179 #### [facility],[address] [place] [address] Urinalysis dipstick W Reflex Microscopic panel (U) SEE BELOW Normal [facility] Comment on above: Result Comment: MICR OSCOPIC Performed By: #### 2 30570 #### [facility],[address] [place] [address] Urobilinog NORMAL Normal NORMAL: NORMAL [facility] Comment on above: Performed By: #### 2 07330 #### [facility],[address] [place] [address] Wbc 26-50 Normal 0-5/hpf [facility] Comment on above: Performed By: #### 2 04598 #### [facility],[address] [place] [address] Yeast NONE Normal [facility] Comment on above: Performed By: #### 2 20176 #### [facility],[address] [place] [address] CBC + DIFFon 04-02-2025 Baso # 0.03 x10EE3/UL Normal 0.00 - 0.10 [facility] Comment on above: Performed By: #### 2 25192 #### [place] [address] Basophils/100 WBC (Bld) 0.2 % Normal 0.0 - 2.0 [facility] Comment on above: Performed By: #### 2 61506 #### [facility],[address] [place] [address] CBC + DIFF Normal [facility] Comment on above: Result Comment: CBC- COMPLETE BLOOD COUNT Performed By: #### 2 37620 #### [place] [address] EO # 0.19 x10EE3/UL Normal 0.00 - 0.50 [facility] Comment on above: Performed By: #### 2 82353 #### [place] [address] Eosinophils/100 WBC (Bld) 1.2 % Normal 0.0 - 7.0 [facility] Comment on above: Performed By: #### 2 75094 #### [place] [address] Erythrocyte distribution width (RBC) [Ratio] 15.1 % Normal 12.0 - 15.6 [facility] Comment on above: Performed By: #### 2 09694 #### [place] [address] Hematocrit (Bld) [Volume fraction] 37.1 % Normal 34.0 - 46.0 [facility] Comment on above: Performed By: #### 2 04365 #### [place] [address] Hemoglobin (Bld) [Mass/Vol] 12.0 g/dL Normal 12.0 - 16.0 [facility] Comment on above: Performed By: #### 2 57877 #### [facility],[address] [place] [address] Lymph # 1.78 x10EE3/UL Normal 0.80 - 2.80 [facility] Comment on above: Performed By: #### 2 41643 #### [facility],[address] [place] [address] Lymphocytes/100 WBC (Bld) 11.2 % Low 20.0 - 45.0 [facility] Comment on above: Performed By: #### 2 42783 #### [facility],[address] [place] [address] MANUAL DIFF N/A Normal [facility] Comment on above: Performed By: #### 2 73442 #### [facility],[address] [place] [address] MCH (RBC) [Entitic mass] 27 pg Normal 27 - 33 [facility] Comment on above: Performed By: #### 2 56492 #### [place] [address] MCHC 32 X10 3 Normal 32 - 36 [facility] Comment on above: Performed By: #### 2 73204 #### [place] [address] MCV (RBC) [Entitic vol] 82 fL Normal 80 - 99 [facility] Comment on above: Performed By: #### 2 94075 #### [place] [address] [place] # 0.63 x10EE3/UL Normal 0.20 - 1.00 [facility] Comment on above: Performed By: #### 2 39635 #### [place] [address] MONOS % 4.0 % Normal 0.0 - 10.0 [facility] Comment on above: Performed By: #### 2 26305 #### [facility],[address],[place] [address] Morphology Harry (Bld) [Interp] N/A Normal [facility] Comment on above: Performed By: #### 2 95064 #### [facility],[address] [place] [address] 28111 Neut # 13.27 x10EE3/UL High 1.50 - 7.10 [facility] Comment on above: Performed By: #### 2 75884 #### [facility],[address] [place] [address] Neutrophils/100 WBC (Bld) 83.5 % High 46.0 - 76.0 [facility] Comment on above: Performed By: #### 2 87276 #### [facility],[address] [place] [address] PLATELET 555 x10EE3/UL High 150 - 450 [facility] Comment on above: Performed By: #### 2 63519 #### [facility],[address] [place] [address] Platelet mean volume (Bld) [Entitic vol] 7.0 fL Normal 6.6 - 10.5 [facility] Comment on above: Result Comment: AUTO MATED DIFFERENTIAL Performed By: #### 2 33528 #### [facility],[address] [place], [place] [address] RBC 4.53 x 10EE6/UL Normal 4.10 - 5.30 [facility] Comment on above: Performed By: #### 2 14893 #### [facility],[address] [place], [place] [address] WBC 15.9 x 10EE3/UL High 4.5 - 10.8 [facility] Comment on above: Performed By: #### 2 79001 #### [facility],[address] [place] [address] CMP with eGFRon 04-02-2025 AGE 50 years Normal [facility] Comment on above: Performed By: #### 2 17799 #### [facility],[address] [place] [address] 72057 Albumin [Mass/Vol] 3.2 g/dL Low 3.4 - 5.0 [facility] Comment on above: Performed By: #### 2 05575 #### [facility],[address] [place] [address] 63526 Albumin/Globulin [Mass ratio] 0.7 {ratio} Low 0.9 - 1.6 [facility] Comment on above: Performed By: #### 2 91948 #### [facility],[address] [place] [address] 35181 ALK PHOS 120 U/L High 46 - 116 [facility] Comment on above: Performed By: #### 2 72274 #### [facility],[address] [place] [address] 87100 ALT [Catalytic activity/Vol] 30 U/L Normal 16 - 63 [facility] Comment on above: Performed By: #### 2 54660 #### [facility],[address] [place] [address] 22902 Anion gap [Moles/Vol] 13 mmol/L Normal 10 - 20 [facility] Comment on above: Performed By: #### 2 74853 #### [facility],[address] [place] [address] 20852 AST [Catalytic activity/Vol] 18 U/L Normal 13 - 39 [facility] Comment on above: Performed By: #### 2 86669 #### [facility],[address] [place] [address] 41567 B/C RATIO 24 ratio Normal 0 - 30 [facility] Comment on above: Performed By: #### 2 54407 #### [facility],[address] [place] [address] 62232 Bilirubin [Mass/Vol] 0.1 mg/dL Low 0.2 - 1.0 [facility] Comment on above: Performed By: #### 2 43110 #### [facility],[address] [place] [address] 72738 Calcium [Mass/Vol] 9.3 mg/dL Normal 8.5 - 10.1 [facility] Comment on above: Performed By: #### 2 67951 #### [facility],[address] [place] [address] 29480 Chloride [Moles/Vol] 97 mmol/L Low 98 - 107 [facility] Comment on above: Performed By: #### 2 53649 #### [facility],[address] [place] [address] 73583 CMP with eGFR Normal [facility] Comment on above: Result Comment: COMP REHENSIVE METABOLIC PANEL Performed By: #### 2 99335 #### [facility],[address] [place] [address] 53762 CO2 [Moles/Vol] 29.3 mmol/L Normal 21.0 - 32.0 [facility] Comment on above: Performed By: #### 2 31741 #### [facility],[address] [place] [address] 06270 Creatinine [Mass/Vol] 0.46 mg/dL Low 0.55 - 1.02 [facility] Comment on above: Performed By: #### 2 67954 #### [facility],[address] [place] [address] 07240 GFR/1.73 sq M.predicted among non-blacks MDRD (S/P/Bld) [Vol rate/Area] mL/min/{1.73_m2} Normal 60 - 999 [facility] Comment on above: Performed By: #### 2 22474 #### [facility],[address] [place] [address] 60315 Result Comment: ACCO RDING TO THE NATIONAL KIDNEY DISEASE EDUCATION PROGRAM(NKDE), A NORMAL eGFR IS A VALUE GREATER THAN OR EQUAL TO 60 ML/MIN/1.73 SQ METERS. CHRONIC KIDNEY DISEASE: <60mL/MIN/1.73 SQ METERS KIDNEY FAILURE: <15mL/MIN/1.73 SQ METERS THIS TEST SHOULD ONLY BE USED FOR PATIENTS 18 YEARS OF AGE AND OLDER. Globulin (S) [Mass/Vol] 4.3 g/dL High 1.5 - 3.8 [facility] Comment on above: Performed By: #### 2 96945 #### [facility],[address] [place] [address] 50817 Glucose [Mass/Vol] 118 mg/dL High 74 - 106 [facility] Comment on above: Performed By: #### 2 91321 #### [facility],[address] [place] [address] 48408 Potassium [Moles/Vol] 3.9 mmol/L Normal 3.5 - 5.1 [facility] Comment on above: Performed By: #### 2 17861 #### [facility],[address] [place] [address] 60290 Protein [Mass/Vol] 7.5 g/dL Normal 6.4 - 8.2 [facility] Comment on above: Performed By: #### 2 79016 #### [facility],[address] [place] [address] 78411 Sodium [Moles/Vol] 135 mmol/L Low 136 - 145 [facility] Comment on above: Performed By: #### 2 02270 #### [facility],[address] [place] [address] 06099 Urea nitrogen [Mass/Vol] 11 mg/dL Normal 7 - 18 [facility] Comment on above: Performed By: #### 2 78633 #### [facility],[address] [place] [address] BRAIN W/O CONTRAST 03-07 CT BRAIN W/O CONTRAST [address] ? [place] [address] ? Patient: JULIETTE CREWS Phone#: : 1975 Age: 50 Gender: F Pt. Type: ER Account: [id number] Location: 052 Ordering: DR. KILO BENSON Exam Date: 04/02/2025/21:06 Family Phys: KASSIE POLANCO Charge Code: 441555 Physician: [place] Order #: [id number] Dose#: [id number] PROCEDURE: CT BRAIN WITHOUT CONTRAST COMPARISON: [facility], CT, BRAIN W/O CON, 10/25/2024, 20:55. INDICATIONS: Headache. TECHNIQUE: CT images were obtained without contrast material. All CT scans at this facility use dose modulation, iterative reconstruction, and/or weight based dosing when appropriate to reduce radiation dose to as low as reasonably achievable. IV CONTRAST: No IV contrast used,ml TOTAL DOSE: 52.7 CTDIvol(mGy) FINDINGS: CEREBRUM: No edema, hemorrhage, mass, acute infarction, or inappropriate atrophy. CEREBELLUM: No edema, hemorrhage, mass, acute infarction, or inappropriate atrophy. BRAINSTEM: No edema, hemorrhage, mass, acute infarction, or inappropriate atrophy. CSF SPACES: Ventricles, cisterns, and sulci are appropriate for age. No hydrocephalus, subarachnoid hemorrhage, or mass. SKULL: No mass or other significant visible lesion. SINUSES: Mild mucosal thickening in the ethmoid sinuses. ORBITS: Limited views are unremarkable. OTHER: Ventricular peritoneal shunt tube is present entering the left posterior parietal calvarium. Tip terminates to the right of midline. CONCLUSION: 1. There is no evidence of acute intracranial abnormality. Dictated by: Winsome Ledbetter MD on 04/02/2025 at 21:28 Approved by: Winsome Ledbetter MD on 04/02/2025 at 21:31 Normal [facility] SEDRATEon 04-02-2025 SEDRATE 53 mm/hr High 0 - 30 [facility] Comment on above: Performed By: #### 2 70759 #### [facility],[address] [place], [place] [address] Gastroenterology Visit Repor ton 01-30-2025 Gastroenterology Visit Report [facility] [address] [place] [address] OFFICE VISIT Date of Service: 01/30/25 MR#: [id number] Acct: [id number] Name: JULIETTE CREWS RAI Rep #: [id number] : 1975 Provider: ADAN grimes Age/Sex: 49/F Location: [facility] Status: Signed Intake Vital Signs 08/21/24 13:52 01/22/25 10:01 01/30/25 09:14 Height 4 ft 7.9 in 5 ft 5 ft Weight: 135 lb BMI 26.4 BP 120/81 H Respiration 18 Pulse Oximetry (%) 95 Oxygen Delivery Method room air Intake Visit Reasons: Test Result Chief Complaint: constipaiton 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: No Accompanied by: Caregiver Is patient in pain?: No Allergies amoxicillin (From Augmentin) Adverse Reaction (Verified 01/22/25 09:34) Diarrhea azithromycin (From Zithromax Z-Turner) Adverse Reaction (Verified 01/22/25 09:34) Diarrhea ciprofloxacin (From Cipro) Adverse Reaction (Verified 01/22/25 09:34) Pain in joints clavulanic acid (From Augmentin) Adverse Reaction (Verified 01/22/25 09:34) Diarrhea Medications ???Medication ???Instructions ???Recorded ???Confirmed ???Type multivitamin with folic acid 400 1 tab PO QHS general health 01/30/25 History mcg tablet (Thera) omeprazole 20 mg capsule,delayed 20 mg PO QHS acid reflux 03/11/18 01/30/25 History release aspirin 81 mg chewable tablet 81 mg PO DAILY@0800 03/14/1801/30 Rx potassium citrate 15 mEq (1,620 15 meq PO BID ##60 03/23/19 Rx mg) tablet,extended release polyethylene glycol 3350 17 gram 17 gm PO DAILY PRN PRN Constipatio n 09/14/20 01/30/25 History oral powder packet budesonide 0.25 mg/2 mL suspension 0.25 mg inhalation BID 10/28/21 01/30/25 History for nebulization docusate sodium 100 mg tablet 100 mg PO BID 08/21/24 01/30/25 Hi story (Stool Softener) loratadine 10 mg tablet 10 mg PO QDAY 08/21/24 01/30/25 Hi story mupirocin calcium 2 % topical cream 1 applic topical BID 08/21/24 0 01/30/25 History oxybutynin chloride 15 mg 5 mg PO TID BLADDER 08/21/2401/30 History tablet,extended release 24 hr psyllium husk 0.52 gram capsule 0.52 g PO QDAY 08/21/24 01/30/25 H istory (Fiber Laxative (psyllium husk)) sertraline 50 mg tablet 50 mg PO QDAY 08/21/24 01/30/25 Hi story Bacillus coagulans 250 million 1 tab PO DAILY 01/22/25 01/30/25 H istory cell chewable tablet (Digestive Advantage Probiotic Gummy) lisinopril 20 mg tablet 20 mg PO DAILY 01/22/25 01/30/25 H istory bisacodyl 5 mg tablet,delayed 5 mg PO ONCE PRN constipation #30 01/30/25 01/30/25 Rx release (Dulcolax (bisacodyl)) tabs lubiprostone 24 mcg capsule 24 mcg PO BID 01/30/25 01/30/25 Hi story PFSH Medical History Suprapubic catheter History of Clostridium difficile infection Anxiety Pressure ulcer Easy bruising Dietary restriction Difficulty chewing Heartburn Sleep apnea On home oxygen therapy Hypertension Decubitus ulcer of right buttock, stage 3 Decubitus ulcer of left buttock, stage 3 GI problem Seasonal allergies Wears glasses Depression Uses wheelchair History of urinary self-catheterization Back pain Constipation Gastric reflux Non-smoker BiPAP (biphasic positive airway pressure) dependence Asthma History of edema History of echocardiogram Hx of back injury Acquired scoliosis Spina bifida Surgical History History of brain surgery History of incision and drainage Hx of eye surgery Hx of ileostomy History of brain shunt History of cystoscopy Hx of cholecystectomy Social History Smoking Status: Never smoker HPI HPI Chief Complaint: constipaiton Details: OV 08/21/2024 49y/o female presents for initial consult with complaints of chronic constipation. PMH of spina bifida. Presents in WC today with her mom, sister and caregiver from [facility]. She has tried and failed multiple OTC laxatives and enemas. She does experience abdominal distension, bloating and occasional abdominal pain with nausea. She is presently only having a BM 24-48 hours after use of an enema, and family reports this only produces a small smear of a stool. I have started her on Linzess 290mcg once daily. She will proceed with colonoscopy. Discussed risk of skin breakdown secondary to frequent soiling. She resides in a [facility] and they are aware they will need to frequently monitor for soiling. Linzess has an increased risk of juliet rrhea in the first two weeks of treatment. We have discussed importance of daily use and PRN use of laxative while possibly more convenient have shown to be ineffective. Patient Instructions: Start Linzess 290mcg once (more content not included)... Normal [facility] Colonoscopy Reporton 025 Colonoscopy Report [facility] Medical Records Department [address] [place] [address] Colonoscopy Report MR#: [id number] Acct: [id number] Name: JULIETTE CREWS RAI Rep #: [id number] : 1975 49 From: Mario Rai DO PCP: ADAN Joseph Status:REG [facility] Patient Name: Juliette Crews Procedure Date: 01/22/2025 11:23 AM Date of : 1975 Age: 49 Procedure: Colonoscopy Indications: Screening for colorectal malignant neoplasm Providers: Mario Rai DO Referring MD: Adan Joseph Medicines: Monitored Anesthesia Care Patient Profile: This is a 49 year old female. Refer to note in patient chart for documentation of history and physical. Last Colonoscopy: none. The patient's first colonoscopy is today. Complications: No immediate complications. Procedure: Pre-Anesthesia Assessment: - Prior to the procedure, a History and Physical was performed, and patient medications and allergies were reviewed. The patient is competent. The risks and benefits of the procedure and the sedation options and risks were discussed with the patient. All questions were answered and informed consent was obtained. Patient identification and proposed procedure were verified by the physician in the pre-procedure area. Mental Status Examination: alert and oriented. Airway Examination: normal oropharyngeal airway and neck mobility. Respiratory Examination: clear to auscultation. CV Examination: normal. Prophylactic Antibiotics: The patient does not require prophylactic antibiotics. Prior Anticoagulants: The patient has taken no anticoagulant or antiplatelet agents. ASA Grade Assessment: III - A patient with severe systemic disease. After reviewing the risks and benefits, the patient was deemed in satisfactory condition to undergo the procedure. The anesthesia plan was to use monitored anesthesia care (MAC). Immediately prior to administration of medications, the patient was re-assessed for adequacy to receive sedatives. The heart rate, respiratory rate, oxygen saturations, blood pressure, adequacy of pulmonary ventilation, and response to care were monitored throughout the procedure. The physical status of the patient was re-assessed after the procedure. After I obtained informed consent, the scope was passed under direct vision. Throughout the procedure, the patient's blood pressure, pulse, and oxygen saturations were monitored continuously. The Colonoscope was introduced through the anus and advanced to the cecum, identified by appendiceal orifice and ileocecal valve. The colonoscopy was performed without difficulty. The patient tolerated the procedure well. The quality of the bowel preparation was fair. The ileocecal valve, appendiceal orifice, and rectum were photographed. Scope In: 12:21:55 PM Scope Withdrawal Time 0 hours 12 minutes 25 seconds Scope Out: 12:40:55 PM Total Procedure Duration Time 0 hours 19 minutes 0 seconds Findings: The perianal and digital rectal examinations were normal. The colon (entire examined portion) was significantly redundant. Stool was found in the recto-sigmoid colon, in the sigmoid colon, in the descending colon, at the splenic flexure, in the transverse colon and in the cecum. Lavage of the area was performed using greater than 500 mL, resulting in incomplete clearance with fair visualization. Impression: - Preparation of the colon was fair. - Redundant colon. - Stool in the recto-sigmoid colon, in the sigmoid colon, in the descending colon, at the splenic flexure, in the transverse colon and in the cecum. - No specimens collected. Recommendation: - Discharge patient to home. - Resume previous diet. - Continue present medications. - Repeat colonoscopy in 5 years for surveillance. Procedure Code(s): --- Professional --- 54971, Colonoscopy, flexible; diagnostic, including collection of specimen(s) by brushing or washing, when performed (separate procedure) CPT copyright 2021 [employer]. All rights reserved. The codes documented in this report are preliminary and upon field sales trainer review may be revised to meet current compliance requirements. Mario Rai DO 01/22/2025 12:48:14 PM This report has been signed electronically. Number of Addenda: 0 Note Initiated On: 01/22/2025 11:23 AM 01/22/25 1248 Date Mario Rai DO Cosigner Signature: Date (if indicated) CC: ADAN Polanco; Mario Rai DO Date Dictated: 01/22/25 1123 Date Transcribed: Museum Registrar: GRANT Signed [facility] Medical Records Department [address] [place] [address] Provation Physician Letter MR#: [id number] Acct: [id number] Name: JULIETTE CREWS RAI Rep #: [id number] : 1975 49 From: Mario Rai DO PCP: ADAN Joseph Status:REG [facility] 01/22/2025 Adan Joseph Re : Colonoscopy procedure for Juliette Crews Lynnr Sherri This procedure was performed on Wednesday, January 22, 2025. My impressions and recommendations are as follows: Impressions : - Preparation of the colon was fair. - Redundant colon. - Stool in the recto-sigmoid colon, in the sigmoid colon, in the descending colon, at the splenic flexure, in the transverse colon and in the cecum. - No specimens collected. Recommendations : - Discharge patient to home. - Resume previous diet. - Continue present medications. - Repeat colonoscopy in 5 years for surveillance. My findings are described in the full procedure note, which is enclosed. If I can be of further assistance, please feel free to contact me at . Sincerely, Mario Rai DO 01/22/2025 12:48:14 PM This report has been signed electronically. 01/22/25 1248 Date Mario Iverson Signature: Date (if indicated) CC: HUMAN RESOURCES TRAINING MANAGER-C Kassie Polanco; Mario Rai DO Date Dictated: 01/22/25 1123 Date Transcribed: Museum Registrar: GRANT Signed [facility] MR/POSTOP.[facility] 01-22-2025 MR/POSTOP.[facility] Medical Records Department [address] [place] [address] Anesthesia Postop Eval I 01/22/25 1251 MR#: [id number] Acct: [id number] Name: JULIETTE CREWS RAI Rep #: [id number] : 1975 49 From: Rex Martinez PCP: ADAN Joseph Status:REG SD Y Race: C Location: [place] [address] Anesthesia: Postop Eval I Current Vital Signs Temperature: 99.3 F Pulse Rate: 109 Blood Pressure: 126/71 Respiratory Rate: 18 Pulse Ox: 100 Oxygen Delivery Method: Room Air Assessment Airway patent: Yes Spontaneous unlabored respirations: Yes Mental status: Awake nausea: No Vomiting: No Anesthesia Complication: Yes Anesthesia Complication Comment:: in situ IV infiltrated Fluid Hydration Crystalloid volume administer (ml): 300 Total IV fluid infused: 300 Progress Note Anesthesia document: Postop Eval 1 completed: Yes 01/22/25 125 Date Rex Palma Signature: Date CC: Signed Normal [facility] MR/[id number] 01-22-2025 MR/POSTOPAN2 [facility] Medical Records Department [address] [place] [address] Anesthesia Postop Eval II 01/22/25 1431 MR#: [id number] Acct: [id number] Name: JULIETTE CREWS RAI Rep #: [id number] : 1975 49 From: Kaiser Rowland MD PCP: Kassie Polanco NP-C Status:DEP [facility] Y Race: C Location: [place] Anesthesia Postop Eval I Sum Postop Eval Completion status Anesthesia document: Postop Eval 1 completed: Yes Anesthesia Postop Eval I Summary Anesthesia Postop Eval I Summary: Anesthesia Postop Eval I: Assessment Summary Airway patent Yes 01/22/25 12:52 [email or web address] Spontaneous unlabored Yes 01/22/25 12:52 [email or web address] respirations Mental status Awake 01/22/25 12:52 [email or web address] nausea No 01/22/25 12:52 [email or web address] Vomiting No 01/22/25 12:52 [email or web address] Anesthesia Postop Eval I: Fluid Summary Crystalloid volume administer 300 01/22/25 12:52 [email or web address] (ml) Colloids volume administered ( ml) Blood Product volume administered (ml) Total IV fluid infused 300 01/22/25 12:52 [email or web address] Anesthesia Postop Eval I: Summary Notes Anesthesia Complication Yes 01/22/25 12:52 [email or web address] Anesthesia Complication in situ IV 01/22/25 12:52 [email or web address] Comment: infiltrated Post-operative progress note Anesthesia: Postop Eval II Evaluation Mental status: Awake Pain Level: 0 nausea: No Vomiting: No Complications Anesthesia Complication: No 01/22/25 1431 Date Kaiser Rowland MD Cosigner Signature: Date CC: Signed Normal [facility] Abdomen/Pelvis without Conto n 01-15-2025 Abdomen/Pelvis without Cont [facility] Imaging Services [address] [place] [address] Abdomen/Pelvis without Cont MR#: [id number] Acct: [id number] Name: JULIETTE CREWS RAI Rep #: [id number] : 1975 F 49 From: Peter Newman MD PCP: Kassie Polanco NP-C Status: REG CLI Study: Abdomen/Pelvis without Cont Date of Exam: 01/04 07/31 Exam# [id number] Ordering Dr: Enzo Hernandez MD PROCEDURE: ABDOMEN/PELVIS WITHOUT CONT 01/15/2025 REASON FOR EXAM: FREQUENCY OF MICTURITION TECHNIQUE: ABDOMEN/PELVIS WITHOUT CONT Noncontrast technique limits evaluation of the abdominal and pelvic viscera. Coronal and Sagittal reconstruction series were provided. One or more dose reduction techniques were used (e.g., Automated exposure control, adjustment of the mA and/or kV according to patient size, use of iterative reconstruction technique). RADIATION DOSE SUMMARY: CTDlvol: 15 mGy DLP: 696 mGycm COMPARISON: 10/12/2021 FINDINGS: Severe scoliosis. Thoracic cage deformity. Clear lung bases. Normal heart size. Status post cholecystectomy. Unremarkable liver, pancreas, spleen, adrenal glands, kidneys. No hydronephrosis or ureteral stone. Suprapubic catheter tip in bladder lumen. Normal uterus. No retroperitoneal or pelvic adenopathy. There is a lower pelvic mass or cyst, series 2, image 119, measuring 1.8 x 2.3 cm, nonspecific but favoring benign etiology. No free air. Distal end of ACCOUNT SERVICES REPRESENTATIVE shunt tip terminates in the peritoneal cavity. Nonobstructed bowel.. Status post appendectomy. No acute large bowel findings. Extensive thoracic lumbar scoliosis status post spinal rhonda placement. Muscle wasting. Bilateral hip joint deformity. Sacral hypoplasia. CT/Abdomen/Pelvis without Cont IMPRESSION: No acute abdominopelvic findings. Reading Location: [place] [address] CC: ADAN Polanco; Dr. Enzo Hernandez MD Museum Registrar: Signed Normal [facility] Culture, Anaerobic Any Sourc forrest 01-08-2025 CUAN List Antibiotics Las t 48 Hours? none List Antibiotics to be Started? doxycine, ceftiner No growth in [address] [facility] Comment on above: Performed By: #### M 100.2000, M100.4001, M100.3000 #### [facility] Laboratory [address] [facility] [place], [address] Wound Cultureon 01-05-2025 WC List Antibiotics Las t 48 Hours? none List Antibiotics to be Started? doxycine, ceftiner No growth aerobically. Normal [facility] Comment on above: Performed By: #### M 100.2000, M100.4001, M100.3000 #### [facility] [address] [facility] [place], [address] Anaerobic cultureOrdered By: Savannah Kinney on 01-03-2025 Bacteria identified Anaer cx Nom (Unsp spec) No growth in [address] [facility] Gram Stainon 01-03-2025 GS List Antibiotics Las t 48 Hours? none List Antibiotics to be Started? doxycine, ceftiner Gram Stain No organisms seen No cells seen Normal [facility] Comment on above: Performed By: #### M 100.2000, M100.4001, M100.3000 #### [facility] Laboratory [address] [facility] [place], [address] Gram stainOrdered By: Germania Kinney on 01-03-2025 Microscopic observation Gram stain Nom (Unsp spec) [facility] Wound Ctr History AND Physic nitza 01-03-2025 Wound Ctr History & Physical [facility] [address] [place] [address] H P Exam - Wound Care 01/03/25 0925 MR#: [id number] Acct: [id number] Name: ELEONORAJULIETTE RAI Rep #: [id number] : 1975 49 From: Savannah Kinney MD PCP: ADAN Joseph Status:REG RCR Location: History of Present Illness Date of Service: 01/03/25 Chief Complaint: Sacral/Coccyx Ulcer History of Wound: Ms. Crews is a 49-year-old well-known to me. Recently discharged following healing of decubitus ulcers however, presents with a new sacral area ulcer. Said to have opened on Tuesday. 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 Had been off due to previous decubitus ulcers. Tuesday, new area of opening was noted. No chills, fever or feeling of unwell. Appetite is good. [facility] Medical History Decubitus ulcer of right buttock, stage 3 Decubitus ulcer of left buttock, stage 3 UTI (urinary tract infection) GI problem Kidney stone Seasonal allergies Wears glasses Depression Uses wheelchair History of urinary self-catheterization Back pain Constipation Gastric reflux Non-smoker BiPAP (biphasic positive airway pressure) dependence Asthma History of edema History of echocardiogram Hx of back injury Acquired scoliosis Spina bifida Home Medications ???Medication ???Instructions ???Recorded ???Last Taken ???Type multivitamin with folic acid 400 1 tab PO QHS general health 09/25/20 17:30 History mcg tablet (Thera) omeprazole 20 mg capsule,delayed 20 mg PO QHS acid reflux 03/11/18 09/25/20 17:30 History release aspirin 81 mg chewable tablet 81 mg PO DAILY@0800 03/14/1811/02 Rx potassium citrate 15 mEq (1,620 15 meq PO BID ##60 03/23/19 17:30 Rx mg) tablet,extended release Bacillus coagulans 10 billion cell 1 each PO QHS [facility] /01/2409/25/20 17:30 History capsule,delayed release polyethylene glycol 3350 17 gram 17 gm PO DAILY PRN PRN Constipatio n 09/14/20 09/25/20 17:30 History oral powder packet budesonide 0.25 mg/2 mL suspension 0.25 mg inhalation BID 10/28/21 Unknown History for nebulization bisacodyl 5 mg tablet 5 mg PO .once weekly 08/21/24 Unkn own History docusate sodium 100 mg tablet 100 mg PO BID 08/21/24 Unknown His tory (Stool Softener) loratadine 10 mg tablet 10 mg PO QDAY 08/21/24 Unknown His tory mineral oil (Fleet Mineral Oil 118 ml [place] .QTUFR 08/21/24 Unknown History enema) mupirocin calcium 2 % topical cream 1 applic topical BID 08/21/24 U nknown History ondansetron HCl 4 mg tablet 4 mg PO .COMPLEX #10 tabs 08/21/24 Unknown Rx oxybutynin chloride 15 mg 5 mg PO TID BLADDER 08/21/24 Unkno wn History tablet,extended release 24 hr peg 3350-electrolytes 236 240 ml PO Q10M #4,000 mL 08/21/24 Unknown Rx gram-22.74 gram-6.74 gram-5.86 gram solution (Golytely) psyllium husk 0.52 gram capsule 0.52 g PO QDAY 08/21/24 Unknown Hi story (Fiber Laxative (psyllium husk)) sertraline 50 mg tablet 50 mg PO QDAY 08/21/24 Unknown His tory amoxicillin 500 mg-potassium 1 tab PO BID #14 tabs 11/29/24 Unk nown Rx clavulanate 125 mg tablet (Augmentin) sulfamethoxazole 800 1 tab PO BID #14 tabs 11/29/24 Unk nown Rx mg-trimethoprim 160 mg tablet (Bactrim DS) lubiprostone 24 mcg capsule 24 mcg PO BID constipation #60 cap s 12/08/24 Unknown Rx (Amitiza) cefdinir 300 mg capsule 300 mg PO BID #20 caps 01/03/25 Un known Rx Allergy/AdvReac Type Severity Reaction Status Date / Time amoxicillin (From Augmentin) AdvReac Diarrhea Verified 11/04/21 13:39 azithromycin (From Zithromax AdvReac Diarrhea Verified 11/04/21 13:39 Z-Turner) ciprofloxacin (From Cipro) AdvReac Pain in Verified 11/04/21 13:39 joints clavulanic acid (From AdvReac Diarrhea Verified 11/04/21 13:39 Augmentin) Surgical History History of incision and drainage Hx of eye surgery Hx of ileostomy History of brain shunt History of cystoscopy Hx of cholecystectomy Social History Smoking Status: Never smoker ROS Constitutional Constitutional: Denies body ache(s), change in weight, frequent falls, headache(s), increased appetite, poor appetite or snoring Eyes Eyes: Denies change in vision, decreased night vision, discharge from eye(s), exophthalmos, halo effect, itchy eyes, loss of central vision or loss of peripheral vision ENT HEENT: Denies dysphagia, ear discharge, facial pain, halitosis, headache(s), nasal congestion or nasal obstruction Cardiovascular Cardiovascular: Denies clubbing, cyanosis, diaphoresis, dyspnea at rest, dyspnea on exertion, easily tiring during activity (more content not included)... Normal [facility] CBC + DIFFon 12-14-2024 Baso # 0.01 x10EE3/UL Normal 0.00 - 0.10 [facility] Comment on above: Performed By: #### 2 35038 #### [facility],[address] [place] [address] Basophils/100 WBC (Bld) 0.1 % Normal 0.0 - 2.0 [facility] Comment on above: Performed By: #### 2 93664 #### [facility],[address] [place] [address] CBC + DIFF Normal [facility] Comment on above: Result Comment: CBC- COMPLETE BLOOD COUNT Performed By: #### 2 82384 #### [facility],[address] [place] [address] EO # 0.27 x10EE3/UL Normal 0.00 - 0.50 [facility] Comment on above: Performed By: #### 2 82742 #### [facility],[address] [place] [address] Eosinophils/100 WBC (Bld) 2.6 % Normal 0.0 - 7.0 [facility] Comment on above: Performed By: #### 2 04296 #### [facility],[address] [place] [address] Erythrocyte distribution width (RBC) [Ratio] 17.7 % High 12.0 - 15.6 [facility] Comment on above: Performed By: #### 2 23341 #### [facility],[address] [place] [address] Hematocrit (Bld) [Volume fraction] 31.6 % Low 34.0 - 46.0 [facility] Comment on above: Performed By: #### 2 58524 #### [facility],[address] [place] [address] Hemoglobin (Bld) [Mass/Vol] 10.8 g/dL Low 12.0 - 16.0 [facility] Comment on above: Performed By: #### 2 36209 #### [facility],[address] [place] [address] Lymph # 2.61 x10EE3/UL Normal 0.80 - 2.80 [facility] Comment on above: Performed By: #### 2 62320 #### [facility],[address] [place], [place] [id number] Lymphocytes/100 WBC (Bld) 25.5 % Normal 20.0 - 45.0 [facility] Comment on above: Performed By: #### 2 96522 #### [facility],[address] [place], [place] [id number] MANUAL DIFF N/A Normal [facility] Comment on above: Performed By: #### 2 63628 #### [facility],[address] [place] [address]33 MCH (RBC) [Entitic mass] 28 pg Normal 27 - 33 [facility] Comment on above: Performed By: #### 2 07452 #### [facility],[address] [place] [address]66 MCHC 34 X10 3 Normal 32 - 36 [facility] Comment on above: Performed By: #### 2 47058 #### [facility],[address] [place] [address] 01310 MCV (RBC) [Entitic vol] 81 fL Normal 80 - 99 [facility] Comment on above: Performed By: #### 2 02361 #### [facility],[address] [place] [address] [place] # 0.48 x10EE3/UL Normal 0.20 - 1.00 [facility] Comment on above: Performed By: #### 2 34925 #### [facility],[address] [place] [address] 69017 MONOS % 4.7 % Normal 0.0 - 10.0 [facility] Comment on above: Performed By: #### 2 81510 #### [facility],[address] [place] [address]234 Morphology Harry (Bld) [Interp] N/A Normal [facility] Comment on above: Performed By: #### 2 06008 #### [facility],[address] [place] [address] 21060 Neut # 6.86 x10EE3/UL Normal 1.50 - 7.10 [facility] Comment on above: Performed By: #### 2 61199 #### [facility],[address] [place] [address]693 Neutrophils/100 WBC (Bld) 67.1 % Normal 46.0 - 76.0 [facility] Comment on above: Performed By: #### 2 24315 #### [facility],[address] [place] [address]1276 PLATELET 427 x10EE3/UL Normal 150 - 450 [facility] Comment on above: Performed By: #### 2 98777 #### [facility],[address] [place] [address] Platelet mean volume (Bld) [Entitic vol] 7.3 fL Normal 6.6 - 10.5 [facility] Comment on above: Result Comment: AUTO MATED DIFFERENTIAL Performed By: #### 2 22092 #### [facility],[address] [place] [address] RBC 3.90 x 10EE6/UL Low 4.10 - 5.30 [facility] Comment on above: Performed By: #### 2 06826 #### [facility],[address] [place] [address] WBC 10.2 x 10EE3/UL Normal 4.5 - 10.8 [facility] Comment on above: Performed By: #### 2 06033 #### [facility],[address] [place] [address] CMP with eGFRon 12-14-2024 AGE 49 years Normal [facility] Comment on above: Performed By: #### 2 94566 #### [facility],[address] [place] [address] Albumin [Mass/Vol] 3.1 g/dL Low 3.4 - 5.0 [facility] Comment on above: Performed By: #### 2 14769 #### [facility],[address] [place] [address] Albumin/Globulin [Mass ratio] 0.7 {ratio} Low 0.9 - 1.6 [facility] Comment on above: Performed By: #### 2 47824 #### [facility],[address] [place], [place] [id number] ALK PHOS 120 U/L High 46 - 116 [facility] Comment on above: Performed By: #### 2 35472 #### [facility],[address] [place] [address] 38286 ALT [Catalytic activity/Vol] 23 U/L Normal 16 - 63 [facility] Comment on above: Performed By: #### 2 [id number] #### [facility],[address] [place], [place] [id number] Anion gap [Moles/Vol] 14 mmol/L Normal 10 - 20 [facility] Comment on above: Performed By: #### 2 17620 #### [facility],[address] [place] [address] AST [Catalytic activity/Vol] 10 U/L Low 13 - 39 [facility] Comment on above: Performed By: #### 2 [id number] #### [facility],[address] [place] [address] B/C RATIO 64 ratio High 0 - 30 [facility] Comment on above: Performed By: #### 2 26775 #### [facility],[address] [place] [address] Bilirubin [Mass/Vol] 0.1 mg/dL Low 0.2 - 1.0 [facility] Comment on above: Performed By: #### 2 83104 #### [facility],[address] [place] [address] Calcium [Mass/Vol] 9.2 mg/dL Normal 8.5 - 10.1 [facility] Comment on above: Performed By: #### 2 29919 #### [facility],[address] [place] [address] Chloride [Moles/Vol] 100 mmol/L Normal 98 - 107 [facility] Comment on above: Performed By: #### 2 89946 #### [facility],[address] [place] [address] CMP with eGFR Normal [facility] Comment on above: Result Comment: COMP REHENSIVE METABOLIC PANEL Performed By: #### 2 25247 #### [facility],[address] [place] [address] 90886 CO2 [Moles/Vol] 28.8 mmol/L Normal 21.0 - 32.0 [facility] Comment on above: Performed By: #### 2 05876 #### [facility],[address] [place] [address] Creatinine [Mass/Vol] 0.42 mg/dL Low 0.55 - 1.02 [facility] Comment on above: Performed By: #### 2 48245 #### [facility],[address] [place] [address] GFR/1.73 sq M.predicted among non-blacks MDRD (S/P/Bld) [Vol rate/Area] mL/min/{1.73_m2} Normal 60 - 999 [facility] Comment on above: Performed By: #### 2 15632 #### [facility],[address] [place] [address] Result Comment: ACCO RDING TO THE NATIONAL KIDNEY DISEASE EDUCATION PROGRAM(NKDE), A NORMAL eGFR IS A VALUE GREATER THAN OR EQUAL TO 60 ML/MIN/1.73 SQ METERS. CHRONIC KIDNEY DISEASE: <60mL/MIN/1.73 SQ METERS KIDNEY FAILURE: <15mL/MIN/1.73 SQ METERS THIS TEST SHOULD ONLY BE USED FOR PATIENTS 18 YEARS OF AGE AND OLDER. Globulin (S) [Mass/Vol] 4.6 g/dL High 1.5 - 3.8 [facility] Comment on above: Performed By: #### 2 57724 #### [facility],[address] [place], [place] [id number] Glucose [Mass/Vol] 88 mg/dL Normal 74 - 106 [facility] Comment on above: Performed By: #### 2 59703 #### [facility],[address] [place] [address] Potassium [Moles/Vol] 4.3 mmol/L Normal 3.5 - 5.1 [facility] Comment on above: Performed By: #### 2 32705 #### [facility],[address] [place], [place] [id number] Protein [Mass/Vol] 7.7 g/dL Normal 6.4 - 8.2 [facility] Comment on above: Performed By: #### 2 75747 #### [facility],[address] [place] [address] Sodium [Moles/Vol] 138 mmol/L Normal 136 - 145 [facility] Comment on above: Performed By: #### 2 30538 #### [facility],[address] [place] [address]21 Urea nitrogen [Mass/Vol] 27 mg/dL High 7 - 18 [facility] Comment on above: Performed By: #### 2 67910 #### [facility],[address] [place] [address] LIPID PROFILEon 12-14-2024 Cholesterol [Mass/Vol] 163 mg/dL Normal 0 - 240 [facility] Comment on above: Performed By: #### 2 12226 #### [facility],[address] [place] [address]9574 Cholesterol in HDL [Mass/Vol] 55 mg/dL Normal 40 - 60 [facility] Comment on above: Performed By: #### 2 66430 #### [facility],[address] [place] [address]149 Cholesterol in LDL [Mass/Vol] 97 mg/dL Normal 0 - 129 [facility] Comment on above: Performed By: #### 2 35929 #### [facility],[address] [place] [address]991 Cholesterol.total/Ch olesterol in HDL [Mass ratio] 3.0 {ratio} Normal 0.0 - 5.0 [facility] Comment on above: Performed By: #### 2 48135 #### [facility],[address] [place] [address]62 Lipid 1996 panel Normal [facility] Comment on above: Result Comment: LIPI D PROFILE Performed By: #### 2 16453 #### [facility],[address] [place] [address]35 Triglyceride [Mass/Vol] 55 mg/dL Normal 0 - 150 [facility] Comment on above: Performed By: #### 2 97953 #### [facility],[address] [facility] [address] Wound Ctr History AND Physic nitza 11-29-2024 Wound Ctr History & Physical [facility] [address] [place] [address] H P Exam - Wound Care 11/29/24 1637 MR#: [id number] Acct: [id number] Name: JULIETTE CREWS RAI Rep #: [id number] : 1975 49 From: Brett Vincent MD PCP: ADAN Joseph Status:REG RCR Location: ADDENDUM by Dr. Brett Vincent MD on 11/30/24 at 09 Addendum Because of the effect of Bactrim in association with the patient's daily potassium supplementation, the patient's caregivers have been instructed to half the dose of the patient's current potassium medication. 11/30/24 09 Cosigner Signature (if applicable): cc: * Signed History of Present Illness Date of Service: 11/29/24 Chief Complaint: Recurrent decubitus buttock and sacral ulcers History of Wound: A courtesy visit is provided today on behalf of the patient's regular Wound Center physician, Dr. Kinney. The patient's medical history is as follows: Juliette is a 49-year-old well-known to the wound center who presented due to decubitus ulcers. She has a history of spinal bifida and paraplegia. She currently resides in a [facility]. Her family noted bleeding on her underwear during routine care and subsequently examined her buttock area where they noted some blisters and open areas. Since then, they had been applying Vaseline to the area and subsequently presented here. She has been relatively stable. No history of diabetes mellitus or tobacco use. She has been having more daily bowel movements however no significant watery bowel movements or concern for fecal contamination. She feels well otherwise. [facility] Medical History Decubitus ulcer of right buttock, stage 3 Decubitus ulcer of left buttock, stage 3 UTI (urinary tract infection) GI problem Kidney stone Seasonal allergies Wears glasses Depression Uses wheelchair History of urinary self-catheterization Back pain Constipation Gastric reflux Non-smoker BiPAP (biphasic positive airway pressure) dependence Asthma History of edema History of echocardiogram Hx of back injury Acquired scoliosis Spina bifida Home Medications ???Medication ???Instructions ???Recorded ???Last Taken ???Type multivitamin with folic acid 400 1 tab PO QHS general health 09/25/20 17:30 History mcg tablet (Thera) omeprazole 20 mg capsule,delayed 20 mg PO QHS acid reflux 03/11/18 09/25/20 17:30 History release aspirin 81 mg chewable tablet 81 mg PO DAILY@0800 03/14/1811/02 Rx potassium citrate 15 mEq (1,620 15 meq PO BID ##60 03/23/19 17:30 Rx mg) tablet,extended release Bacillus coagulans 10 billion cell 1 each PO QHS [facility] 01/2409/25/20 17:30 History capsule,delayed release polyethylene glycol 3350 17 gram 17 gm PO DAILY PRN PRN Constipatio n 09/14/20 09/25/20 17:30 History oral powder packet budesonide 0.25 mg/2 mL suspension 0.25 mg inhalation BID 10/28/21 Unknown History for nebulization bisacodyl 5 mg tablet 5 mg PO .once weekly 08/21/24 Unkn own History docusate sodium 100 mg tablet 100 mg PO BID 08/21/24 Unknown His tory (Stool Softener) loratadine 10 mg tablet 10 mg PO QDAY 08/21/24 Unknown His tory mineral oil (Fleet Mineral Oil 118 ml [place] .QTUFR 08/21/24 Unknown History enema) mupirocin calcium 2 % topical cream 1 applic topical BID 08/21/24 U nknown History ondansetron HCl 4 mg tablet 4 mg PO .COMPLEX #10 tabs 08/21/24 Unknown Rx oxybutynin chloride 15 mg 5 mg PO TID BLADDER 08/21/24 Unkno wn History tablet,extended release 24 hr peg 3350-electrolytes 236 240 ml PO Q10M #4,000 mL 08/21/24 Unknown Rx gram-22.74 gram-6.74 gram-5.86 gram solution (Golytely) psyllium husk 0.52 gram capsule 0.52 g PO QDAY 08/21/24 Unknown Hi story (Fiber Laxative (psyllium husk)) sertraline 50 mg tablet 50 mg PO QDAY 08/21/24 Unknown His tory lubiprostone 24 mcg capsule 24 mcg PO BID constipation #60 cap s 09/04/24 Unknown Rx (Amitiza) Allergy/AdvReac Type Severity Reaction Status Date / Time amoxicillin (From Augmentin) AdvReac Diarrhea Verified 11/04/21 13:39 azithromycin (From Zithromax AdvReac Diarrhea Verified 11/04/21 13:39 Z-Turner) ciprofloxacin (From Cipro) AdvReac Pain in Verified 11/04/21 13:39 joints clavulanic acid (From AdvReac Diarrhea Verified 11/04/21 13:39 Augmentin) Surgical History History of incision and drainage Hx of eye surgery Hx of ileostomy History of brain shunt History of cystoscopy Hx of cholecystectomy Social History Smoking Status: Never smoker Vital Signs Vital Signs Vital Signs: 11/29/24 10:50 Temp (more content not included)... Normal [facility] Culture, Anaerobic Any Sourc forrest 11-28-2024 CUAN List Antibiotics Las t 48 Hours? none List Antibiotics to be Started? none #1 Anaerobic non-spore forming gram positive rods are usually SUSCEPTIBLE to Beta-lactams and Beta-lactamase inhibitors, Linezolid, and Daptomycin. They are usually RESISTANT to Metronidazole. Bacteria Spec Anaerobe Cult #2 Studies have confirmed that Anaerobic Gram Positive Cocci are routinely SUSCEPTABLE to Penicillin and generally susceptible to Beta-lactams and Beta-lactamase inhibitors, Cephalosporins, Carbapenems and Metronidazole. They are showing increased RESISTANCE to Clindamycin Cutibacterium granulosum Anaerobic cocci Normal [facility] Comment on above: Performed By: #### M 100.2000, M100.4001, M100.3000 #### [facility] [address] [place], [address] Wound Cultureon 11-25-2024 List Antibiotics Las t 48 Hours? none List Antibiotics to be Started? none #3 Gram positive rhonda suggestive of a diphtheroid. Susceptibility not normally performed on this organism Wound Culture Wound Culture Citrobacter freundii Amount Growth Rare Klebsiella aerogenes Klebsiella aerogenes CORSTR Amount Growth 1+ Corynebacterium striatum Amount Growth Rare Beta Lactamase-Reportable Negative Enterococcus faecalis Cefepime Islt KELSEY <=0.12 cefTRIAXone Islt KELSEY <=0.25 S Ciprofloxacin Islt KELSEY <=0.06 Gentamicin Islt KELSEY <=1 S levoFLOXacin Islt KELSEY <=0.12 Meropenem Islt KELSEY <=0.25 S Pip+Tazo Islt KELSEY <=4 S TMP SMX Islt KELSEY <=20 S Klebsiella aerogenes: REACTION Cefepime Islt KELSEY <=0.12 S cefTRIAXone Islt KELSEY <=0.25 S Ciprofloxacin Islt KELSEY <=0.06 S Gentamicin Islt KELSEY <=1 S levoFLOXacin Islt KELSEY <=0.12 Meropenem Islt KELSEY <=0.25 S Pip+Tazo Islt KELSEY 8 S TMP SMX Islt KELSEY <=20 S Enterococcus faecalis: REACTION Ampicillin Islt KELSEY <=2 S Gentamicin Synergy Susc Islt SYN-S S Linezolid Islt KELSEY 2 S Streptomycin High Pot Susc Islt SYN-S S Vancomycin Islt KELSEY [address] [facility] Comment on above: Performed By: #### M 100.2000, M100.4001, M100.3000 #### [facility] [address] [place], [place], [id number] Gram Stainon 11-23-2024 GS List Antibiotics Las t 48 Hours? none List Antibiotics to be Started? none Gram Stain No organisms seen No cells seen Normal [facility] Comment on above: Performed By: #### M 100.2000, M100.4001, M100.3000 #### [facility] [address] [place], [place], [id number] Anaerobic cultureOrdered By: Savannah Kinney on 11-22-2024 Bacteria identified Anaer cx Nom (Unsp spec) Cutibacterium granulosum Abnormal [facility] Bacteria identified Anaer cx Nom (Unsp spec) Anaerobic cocci Abnormal [facility] Gram stainOrdered By: Germania Kinney on 11-22-2024 Microscopic observation Gram stain Nom (Unsp spec) [facility] Wound Ctr History AND Physic nitza 11-22-2024 Wound Ctr History & Physical [facility] [address] [place] [address] H P Exam - Wound Care 11/22/24 1355 MR#: [id number] Acct: [id number] Name: JULIETTE CREWS RAI Rep #: [id number] : 1975 49 From: Savannah Kinney MD PCP: Kassie Polanco NP-C Status:REG RCR Location: History of Present Illness Date of Service: 11/22/24 Chief Complaint: Recurrent decubitus buttock and sacral ulcers History of Wound: Juliette is a 49-year-old well-known to the wound center who presents today due to decubitus ulcers. History of spinal bifida and paraplegia. Currently resides in a home. Family noted bleeding on her underwear during routine care and subsequently examined her buttock area where they noted some blisters and open areas. Since then, they have been applying Vaseline to the area and subsequently presented here. Has been relatively stable. No history of diabetes mellitus or tobacco use. Has been having more daily bowel movements however no significant watery bowel movements or concern for fecal contamination. Feels well otherwise. [facility] Medical History (Updated 11/22/24 @ 20:[address] Savannah Kinney MD) Decubitus ulcer of right buttock, stage 3 Decubitus ulcer of left buttock, stage 3 UTI (urinary tract infection) GI problem Kidney stone Seasonal allergies Wears glasses Depression Uses wheelchair History of urinary self-catheterization Back pain Constipation Gastric reflux Non-smoker BiPAP (biphasic positive airway pressure) dependence Asthma History of edema History of echocardiogram Hx of back injury Acquired scoliosis Spina bifida Home Medications ???Medication ???Instructions ???Recorded ???Last Taken ???Type multivitamin with folic acid 400 1 tab PO QHS general health 09/25/20 17:30 History mcg tablet (Thera) omeprazole 20 mg capsule,delayed 20 mg PO QHS acid reflux 10/06/18 04/22/21 17:30 History release aspirin 81 mg chewable tablet 81 mg PO DAILY@0800 03/14/1811/02 Rx potassium citrate 15 mEq (1,620 15 meq PO BID ##60 03/23/19 17:30 Rx mg) tablet,extended release Bacillus coagulans 10 billion cell 1 each PO Q [facility] 0401/2409/25/20 17:30 History capsule,delayed release polyethylene glycol 3350 17 gram 17 gm PO DAILY PRN PRN Constipatio n 09/14/20 09/25/20 17:30 History oral powder packet budesonide 0.25 mg/2 mL suspension 0.25 mg inhalation BID 10/28/21 Unknown History for nebulization bisacodyl 5 mg tablet 5 mg PO .once weekly 08/21/24 Unkn own History docusate sodium 100 mg tablet 100 mg PO BID 08/21/24 Unknown His tory (Stool Softener) loratadine 10 mg tablet 10 mg PO QDAY 08/21/24 Unknown His tory mineral oil (Fleet Mineral Oil 118 ml [place] .QTUFR 08/21/24 Unknown History enema) mupirocin calcium 2 % topical cream 1 applic topical BID 08/21/24 U nknown History ondansetron HCl 4 mg tablet 4 mg PO .COMPLEX #10 tabs 08/21/24 Unknown Rx oxybutynin chloride 15 mg 5 mg PO TID BLADDER 08/21/24 Unkno wn History tablet,extended release 24 hr peg 3350-electrolytes 236 240 ml PO Q10M #4,000 mL 08/21/24 Unknown Rx gram-22.74 gram-6.74 gram-5.86 gram solution (Golytely) psyllium husk 0.52 gram capsule 0.52 g PO QDAY 08/21/24 Unknown Hi story (Fiber Laxative (psyllium husk)) sertraline 50 mg tablet 50 mg PO QDAY 08/21/24 Unknown His tory lubiprostone 24 mcg capsule 24 mcg PO BID constipation #60 cap s 09/04/24 Unknown Rx (Amitiza) Allergy/AdvReac Type Severity Reaction Status Date / Time amoxicillin (From Augmentin) AdvReac Diarrhea Verified 11/04/21 13:39 azithromycin (From Zithromax AdvReac Diarrhea Verified 11/04/21 13:39 Z-Turner) ciprofloxacin (From Cipro) AdvReac Pain in Verified 11/04/21 13:39 joints clavulanic acid (From AdvReac Diarrhea Verified 11/04/21 13:39 Augmentin) Surgical History History of incision and drainage Hx of eye surgery Hx of ileostomy History of brain shunt History of cystoscopy Hx of cholecystectomy Social History Smoking Status: Never smoker ROS Constitutional Constitutional: Denies body ache(s), change in weight, frequent falls, headache(s), increased appetite, poor appetite or snoring Eyes Eyes: Denies change in vision, decreased night vision, discharge from eye(s), exophthalmos, halo effect, itchy eyes, loss of central vision or loss of peripheral vision ENT HEENT: Denies dysphagia, ear discharge, facial pain, halitosis, headache(s), nasal congestion or nasal obstruction Cardiovascular Cardiovascular: Denies clubbing, cyanosis, diaphoresis, dyspnea at rest, dyspnea on exertion, easily tiring during activity or erythema on extremities Respi (more content not included)... Normal [facility] ED MED ADMINISTRATION DETAIL on 10-30-2024 ED MED ADMINISTRATION DETAIL Seat Pack Inspector Medication Administration Record [address] [place] [address] [id number] 10/25/2024 Patient: JULIETTE CREWS Sex: Female : 1975 Age: 49y MEASUREMENTS: Wt: 61.2 kg ALLERGIES: Augmentin, amoxicillin, azithromycin Medication Ordered Medication Administration Date/Time Clonidine PO 0.1 23:34 10/25 Clonidine PO 0.1 mg given. Allergies verified and Given mg (NOW x1) confirmed 5 rights. Information reviewed with patient. Verbalizes 23:34 10/25/2024 understanding. - 23:34 Baltazar Mcqueen R.N. Scanned KetorOLAC 23:33 10/25 KetorOLAC (Toradol) IVP 30 mg given via Site# 1. Given (Toradol) IVP 30 mg Allergies verified and confirmed 5 rights. IV patency established. IV 23:33 10/25/2024 (NOW x1) site checked: no pain, redness, or swelling. IV flushed thoroughly Ro Saini R.N. pre-medication administration. IVP given by nurse. Information Scanned reviewed with patient. Verbalizes understanding. - 23:34 Ro Saini R.N. 1 of 1 Normal [facility] ED NURSES CLINICAL NOTEon ED NURSES CLINICAL NOTE Nurse Narrative Nurse Clinical Narrative [facility] [address] [facility] [place] [address] [phone] 10/25/2024 19:31:00 Patient: JULIETTE CREWS Sex: Female : 1975 Age: 49y Disposition: Discharge to [facility] Disposition Decision Time: 00:46 10/26/2024 Departure Time: 00:58 10/26/2024 TRIAGE Triage time: 19:35 10/25/2024. -- 19:45 10/25/24 EDT Richard Cadena R.N. 19:42 10/25/24. BP: 189/113 MAP: 138. HR: 96. RR: 16. O2 saturation: 97% Temperature: 98.4 F. Pain level now 03/15. -- 19:42 10/25/24 EDT Richard Cadena R.N. Primary physician (Kassie Polanco). ( Pt c/o high blood pressure as well as a headache.). Acuity: LEVEL 3. Chief Complaint: (High blood pressure). BLOOD PRESSURE ELEVATED. 19:45 10/25/24. This started today. SEPSIS SCREEN: NEGATIVE. SIRS criteria negative. -- 19:45 10/25/24 CAPRICET Richard Cadena R.N. Measurements: 19:43 10/25/24 Wt: 61.2 kg -- 19:43 10/25/24 CAPRICET Richard Cadena R.N. Medications: Mucus Relief ER 600 mg tablet, extended release: 1 tablet twice a day as needed. -- 20:08 10/25/24 MAVIS Cadena R.N. Constulose 10 gram/15 mL oral solution: 30 ml twice a day as needed. -- 20:08 10/25/24 MAVIS Cadena R.N. 1 of 4 Nurse Narrative loratadine 10 mg tablet: 1 tablet once a day. -- 20:10/25/24 MAVIS Cadena R.N. budesonide 0.25 mg/2 mL suspension for nebulization: 1 vial twice a day. -- 20:10/25/24 MAVIS Cadena R.N. lubiprostone 24 mcg capsule: TAKE 1 CAPSULE BY MOUTH 2ITIMES A DAY FOR CONSTIPATION -- 20:10/25/24 MAVIS Cadena R.N. sertraline 50 mg tablet: 1 tablet once a day. -- 20:10/25/24 MAVIS Cadena R.N. psyllium husk 0.4 gram capsule: 2 capsule once a day. -- 20:10/25/24 MAVIS Cadena R.N. potassium citrate ER 10 mEq (1,080 mg) tablet,extended release: 1 tablet twice a day. -- 20:10/25/24 MAVIS Cadena R.N. paroxetine 40 mg tablet: Stopped 10/25/2024. -- 20:10/25/24 MAVIS Cadena R.N. oxybutynin chloride 5 mg tablet: 1 tablet three times a day. -- 20:10/25/24 MAVIS Cadena R.N. omeprazole 20 mg capsule,delayed release: 1 capsule once a day. -- 20:10/25/24 MAVIS Cadena R.N. mupirocin 2 % topical ointment: 1 gram once a day. -- 20:10/25/24 MAVIS Cadena R.N. brompheniramine-pseudoephe drine-DM 2 mg-30 mg-10 mg/5 mL oral syrup: 10 ml every four hours as needed. -- 20:10/25/24 MAVIS Cadena R.N. lubiprostone 24 mcg capsule: TAKE 1 CAPSULE BY MOUTH 2ITIMES A DAY FOR CONSTIPATION -- 20:10/25/24 MAVIS Cadena R.N. oxybutynin chloride ER 10 mg tablet,extended release 24 hr: Stopped 10/25/2024. -- 20:10/25/24 MAVIS Cadena R.N. bisacodyl 5 mg tablet,delayed release: 1 tablet once a week. -- 20:08 10/25/24 MAVIS Cadena R.N. 19:45 10/25/24. Preferred Pharmacy: ([facility]). -- 19:45 10/25/24 EDDylon Cadena R.N. Allergies: azithromycin -- 19:38 10/25/24 MAVIS Cadena R.N. amoxicillin -- 19:38 10/25/24 CAPRICET Richard Cadena R.N. Augmentin -- 19:38 10/25/24 EDT Richard Cadena R.N. Problems: Spina bifida -- 19:38 10/25/24 MAVIS Cadena R.N. COPD - Chronic Obstructive Pulmonary Disease -- 19:39 10/25/24 CAPRICET Richard Cadena R.N. Surgeries: Ventriculo Peritoneal Shunt Surgery -- 19:38 10/25/24 MAVIS Cadena R.N. Cholecystectomy -- 19:38 10/25/24 MAVIS Cadena R.N. Lithotripsy -- 19:38 10/25/24 CAPRICET Richard Cadena R.N. 2 of 4 Nurse Narrative Back Surgery -- 19:38 10/25/24 MAVIS Cadena R.N. History 19:45 10/25/24. SOCIAL HX: Never smoker. No alcohol use or drug use. The patient has not traveled outside the [place] Infectious disease exposure: No infectious disease exposure. ABUSE ASSESSMENT: The patient answered yes to the question(s) Do you feel safe in your home? and no to the question(s) Are you afraid to go home?. SELF HARM ASSESSMENT: Self harm assessment was performed. The patient answered no to the question(s) Have you recently felt down, depressed, or hopeless? and Do you have thoughts of harming or killing yourself?. FALL RISK ASSESSMENT: Fall risk assessment completed. Risk factors identified include patient impairment of mobility. Fall interventions initiated. Side rails up x2. Bed in low position. Brakes on. Call light in reach of patient and family. -- 19:45 10/25/24 MAVIS Cadena R.N. PHYSICAL ASSESSMENT 20:18 10/25/24. GENERAL / NEURO / PSYCH: Alert. Oriented X 4. Appears in no acute distress. HEENT: Pupils equal, round and reactive to light. Mucous membranes are pink. RESPIRATORY: Respirations not labored. Breath sounds within normal limits. CVS: Normal sinus rhythm noted. Capillary refill less than 2 seconds. Pulses within normal limits. GI / : Urinary catheter in place on arrival returning normal appearing urine. SKIN: Skin is warm and dry. -- 20:18 10/25/24 EDT Ro Saini R.N. NURSING PROGRESS NOTES 20:10/25/24. Site #1 st (more content not included)... Normal [facility] ED ORDER SHEET (CPOE ONLY)on 10-30-2024 ED ORDER SHEET (CPOE ONLY) Order Sheet Order Sheet [address] [place] [address] [id number] 10/25/2024 Patient: JULIETTE CREWS Sex: Female : 1975 Age: 49y MEASUREMENTS: Wt: 61.2 kg ALLERGIES: Augmentin, amoxicillin, azithromycin MEDICATION/IV/DRIP/FLUID ORDERS Order Description Priority Entered Acknowledged Completed Clonidine PO0.1 mg (NOW x1) 23:23 10/25/2024 23:30 23:34 Viktor Foy D.O. 10/25/2024 10/25/2024 Ro Mcqueen R.N. R.N. KetorOLAC (Toradol) IVP30 mg 23:25 10/25/2024 23:30 23:34 (NOW x1) Viktor Foy D.O. 10/25/2024 10/25/2024 Ro Mcqueen R.N. R.N. Reason for ordering with alerts: Clinical consideration given --23:10/25/2024 Viktor Foy D.O. LAB ORDERS Order Description Priority Entered Acknowledged Collected Completed CBC w Diff Stat Stat 20:10 10/25/2024 20:23 10/25/2024 20:24 10/25/2024 Ivanna Odom R.N. Alex Mast, R.N. CMP Stat Stat 20:10 10/25/2024 20:23 10/25/2024 20:24 10/25/2024 1 of 3 Order Sheet Ivanna Odom R.N. Alex Mast, R.NAlvin Troponin-I Stat Stat 20:10 10/25/2024 20:23 10/25/2024 20:24 10/25/2024 Ivanna Odom R.N. Alex Mast, R.NAlvin EKG - ED Stat Stat 20:10 10/25/2024 20:23 10/25/2024 20:29 10/25/2024 Ivanna Odom R.Rochelle Saini R.N. Urinalysis Stat Stat 20:10 10/25/2024 20:23 10/25/2024 20:24 10/25/2024 Ivanna Odom R.N. Alex Mast, R.N. HCG, Qual Serum Stat Stat 20:10 10/25/2024 20:23 10/25/2024 20:24 10/25/2024 Ivanna Odom R.N. Alex Mast, R.NAlvin Flu Swab (Influenzae Stat 20:11 10/25/2024 20:23 10/25/2024 20:24 10/25/2024 AAg) Stat Ivanna Odom R.Rochelle Cadena, R.N. Rapid COVID (SARS) Stat 20:11 10/25/2024 20:23 10/25/2024 20:24 10/25/2024 ANTIGEN TEST Stat Ivanna Odom R.Rochelle Cadena, R.N. CRP Stat Stat 20:12 10/25/2024 20:24 10/25/2024 20:24 10/25/2024 Ivanna Odom R.Rochelle Cadena, R.NAlvin DIAGNOSTIC STUDY ORDERS Order Description Priority Entered Acknowledged Completed CT Brain wo Cont Stat Stat 20:10 10/25/2024 20:24 20:29 Viktor Foy D.O. 10/25/2024 10/25/2024 Ro Mcqueen R.N. R.N. 2 of 3 Order Sheet Order Comments: 20:10 10/25/2024: Status: Not . Viktor Foy D.O. Reason for Study: Headache STAFF ORDERS Order Description Priority Entered Acknowledged Collected Completed IV Saline Lock 20:10 10/25/2024 20:23 10/25/2024 20:24 10/25/2024 Ivanna Odom R.N. Alex Mast, R.N. Vital Signs every 30 20:10 10/25/2024 20:24 10/25/2024 20:29 10/25/2024 minutes Ivanna Odom Alisha Whytsell, R.N. R.N. [employer] 20:10 10/25/2024 20:24 10/25/2024 20:29 10/25/2024 Ivanna Odom Alisha Whytsell, R.N. R.N. Oxygen titrate to 92% 20:10 10/25/2024 20:23 10/25/2024 20:24 10/25/2024 Ivanna Odom R.N. Alex Mast, R.N. [Electronically signed by Viktor Foy D.O. (10/26/2024 02:26 EDT)] 3 of 3 Normal [facility] ED PHYSICIAN CLINICAL REPORT on 10-30-2024 ED PHYSICIAN CLINICAL REPORT Narrative Physician Clinical [address] [address] [id number] 10/25/2024 19:31:00 Patient: JULIETTE CREWS Sex: Female : 1975 Age: 49y Disposition: Discharge to [facility] Disposition Decision Time: 00:46 10/26/2024 Departure Time: 00:58 10/26/2024 Measurements Wt: 61.2 kg Initial Vital Sign Measured Time BP MAP HR RR O2Sat ETCO2 Temp Pain GCS RTS 19:42 10/25/2024 189/113 138 96 16 97% 98.4 F 10 Time Seen: 19:44 10/25/2024. Arrived- By ambulance. Historian- patient. Independent historian- EMS personnel. HISTORY OF PRESENT ILLNESS Chief Complaint: HEADACHE. Is still present. This started today. It is described as pressure. No neck pain. No blurred vision, photophobia, associated nausea, numbness or vomiting. Similar symptoms previously. None. Recent medical care: Not recently seen/assessed. REVIEW OF SYSTEMS NOSE: No sinus pressure. EARS: No ear pain. CVS: No chest pain. RESPIRATORY: No carbon monoxide exposure, difficulty breathing or cough. GI: No abdominal pain or diarrhea. : No pain with urination. SKIN: No 18 Narrative skin rash. ENDO/HEME/LYMPH: No enlarged lymph nodes. MUSCULOSKELETAL: No back pain. THROAT: No sore throat. CONSTITUTIONAL: No fever or muscle aches. Status: Not . PAST HISTORY See nurses notes. COPD - Chronic Obstructive Pulmonary Disease Spina bifida Surgeries: Back Surgery Cholecystectomy Lithotripsy Ventriculo Peritoneal Shunt Surgery Medications: bisacodyl 5 mg tablet,delayed release: 1 tablet once a week. brompheniramine-pseudoephe drine-DM 2 mg-30 mg-10 mg/5 mL oral syrup: 10 ml every four hours as needed. budesonide 0.25 mg/2 mL suspension for nebulization: 1 vial twice a day. Constulose 10 gram/15 mL oral solution: 30 ml twice a day as needed. loratadine 10 mg tablet: 1 tablet once a day. lubiprostone 24 mcg capsule: TAKE 1 CAPSULE BY MOUTH 2ITIMES A DAY FOR CONSTIPATION lubiprostone 24 mcg capsule: TAKE 1 CAPSULE BY MOUTH 2ITIMES A DAY FOR CONSTIPATION Mucus Relief ER 600 mg tablet, extended release: 1 tablet twice a day as needed. mupirocin 2 % topical ointment: 1 gram once a day. omeprazole 20 mg capsule,delayed release: 1 capsule once a day. oxybutynin chloride 5 mg tablet: 1 tablet three times a day. oxybutynin chloride ER 10 mg tablet,extended release 24 hr: Stopped 10/25/2024. paroxetine 40 mg tablet: Stopped 10/25/2024. potassium citrate ER 10 mEq (1,080 mg) tablet,extended release: 1 tablet twice a day. psyllium husk 0.4 gram capsule: 2 capsule once a day. sertraline 50 mg tablet: 1 tablet once a day. Allergies: amoxicillin Augmentin azithromycin 2 of 18 Narrative SOCIAL HISTORY Never smoker. No alcohol use or drug use. ADDITIONAL NOTES The nursing notes have been reviewed. PHYSICAL EXAM Appearance: Alert. No acute distress. Eyes: Pupils equal, round and reactive to light. Eyes normal inspection. ENT: Nose normal. Pharynx normal. Neck: Normal inspection. Neck supple. CVS: Normal heart rate and rhythm. Heart sounds normal. Pulses normal. Respiratory: No respiratory distress. Painless inspiration. Abdomen: Soft and nontender. Back: Normal inspection. Skin: Skin warm and dry. No rash. Extremities: Extremities exhibit normal ROM. No lower extremity edema. Neuro: Oriented X 3. Alert. No motor deficit. No sensory deficit. LABS, X-RAYS, AND EKG Laboratory Tests: C-REACTIVE PROTEIN Final KAILA: 10/25/2024 20:21:00 EDT MsgRcvd: 10/25/2024 20:59 EDT Lab Test Result Reference Status Received Comments 0.98 mg/dl 10/25/2024 20:59 CRP 0.00 - 0.90 Final Above high normal EDT CBC + DIFF Final KAILA: 10/25/2024 20:21:00 EDT MsgRcvd: 10/25/2024 20:33 EDT 3 of 18 Narrative Lab Test Result Reference Status Received Comments 10/25/2024 20:33 CBC-COMPLETE CBC + DIFF Final EDT BLOOD COUNT 14.7 x 10/UL 10/25/2024 20:33 WBC 4.5 - 10.8 Final Above high normal EDT 10/25/2024 20:33 RBC 4.17 x 10/UL 4.10 - 5.30 Final EDT 11.6 g/dl 10/25/2024 20:33 HEMOGLOBIN 12.0 - 16.0 Final Below low normal EDT 10/25/2024 20:33 HEMATOCRIT 34.3 % 34.0 - 46.0 Final EDT 10/25/2024 20:33 MCV 82 fl 80 - 99 Final EDT 10/25/2024 20:33 MCH 28 pg 27 - 33 Final EDT 10/25/2024 20:33 MCHC 34 X10 3 32 - 36 Final EDT 16.5 % 10/25/2024 20:33 RDW/CV 12.0 - 15.6 Final Above high normal EDT 488 x10/UL 10/25/2024 20:33 PLATELET 150 - 450 Final Above high normal EDT 10/25/2024 20:33 AUTOMATED MPV 7.1 fl 6.6 - 10.5 Final EDT DIFFERENTIAL 10/25/2024 20:33 NEUT % 69.9 % 46.0 - 76.0 Final EDT 10/25/2024 20:33 LYMPH % 21.0 % 20.0 - 45.0 Final EDT 4 of 18 Narrative Lab Test Result Reference Status Received Comments 10/25/2024 (more content not included)... Normal [facility] ED SUPER BILLon 10-30-2024 ED SUPER BILL [address] [address] [id number] 10/25/2024 Patient: JULIETTE CREWS Sex: Female : 1975 Age: 49y Facility Professional Category Item Description Code Code Quantity Fee Total Nurse/E/M EMERGENCY 620138 1 $0.00 $0.00 DEPT VISIT HIGH SEVERITYFUNCJ (88561-75) Nurse/IV/IM/Infusions IVP initial (19873) 959102 1 $0.00 $0.00 Grand $0.00 Total Providers Viktor Foy D.O. Chief Complaint HEADACHE. Principal Diagnosis Hypertensive headache Essential hypertension. 1 of 2 [facility] ICD-10 Codes I10: Essential (primary) hypertension R51.9: Headache, unspecified I10: Essential (primary) hypertension 2 of 2 Normal [facility] ED VISIT SUMMARYon ED VISIT SUMMARY Visit Overview Visit Overview [address] [address] [id number] 10/25/2024 Patient: JULIETTE CREWS Sex: Female : 1975 Age: 49y 10/30/2024 09:19 PM EDT ED Arrival:19:31 10/25/2024 EDT Status:not Recent Travel:no Language:eng Adv Directive: Isolation Status: Ethnicity:N Fall Risk:risk Infectious Disease Exposure:no Measurements:135.0 lb / 61.2 kg Self-Harm Status:risk Sepsis Screen:negative Chief Complaint:(Kassie Polanco), (High blood pressure), and (Pt c/o high blood pressure as well as a headache.) ALLERGIES amoxicillin Augmentin azithromycin HOME MEDICATIONS bisacodyl 5 mg tablet,delayed release: 1 tablet once a week. brompheniramine-pseudoephe drine-DM 2 mg-30 mg-10 mg/5 mL oral syrup: 10 ml every four hours as needed. budesonide 0.25 mg/2 mL suspension for nebulization: 1 vial twice a day. 1 4 Visit Overview Constulose 10 gram/15 mL oral solution: 30 ml twice a day as needed. loratadine 10 mg tablet: 1 tablet once a day. lubiprostone 24 mcg capsule: TAKE 1 CAPSULE BY MOUTH 2ITIMES A DAY FOR CONSTIPATION lubiprostone 24 mcg capsule: TAKE 1 CAPSULE BY MOUTH 2ITIMES A DAY FOR CONSTIPATION Mucus Relief ER 600 mg tablet, extended release: 1 tablet twice a day as needed. mupirocin 2 % topical ointment: 1 gram once a day. omeprazole 20 mg capsule,delayed release: 1 capsule once a day. oxybutynin chloride 5 mg tablet: 1 tablet three times a day. oxybutynin chloride ER 10 mg tablet,extended release 24 hr: Stopped 10/25/2024. paroxetine 40 mg tablet: Stopped 10/25/2024. potassium citrate ER 10 mEq (1,080 mg) tablet,extended release: 1 tablet twice a day. psyllium husk 0.4 gram capsule: 2 capsule once a day. sertraline 50 mg tablet: 1 tablet once a day. PAST MEDICAL HISTORY / PROBLEMS COPD - Chronic Obstructive Pulmonary Disease See nurses notes Spina bifida PAST SURGICAL HISTORY Back Surgery Cholecystectomy Lithotripsy Ventriculo Peritoneal Shunt Surgery SOCIAL HISTORY Smoking status: No Alcohol use: No Drug use: No ED COURSE MEDICATIONS GIVEN IN EMERGENCY DEPARTMENT 23:33 10/25/24 KetorOLAC (Toradol) IVP 30 mg 23:34 10/25/24 Clonidine PO 0.1 mg 2 4 Visit Overview IV SITE INFORMATION INTAKE OUTPUT REASSESMENT (most recent) 20:18 10/25/24. GENERAL / NEURO / PSYCH: Alert. Oriented X 4. Appears in no acute distress. HEENT: Pupils equal, round and reactive to light. Mucous membranes are pink. RESPIRATORY: Respirations not labored. Breath sounds within normal limits. CVS: Normal sinus rhythm noted. Capillary refill less than 2 seconds. Pulses within normal limits. GI / : Urinary catheter in place on arrival returning normal appearing urine. SKIN: Skin is warm and dry. VITAL SIGNS First Vitals Last Vitals Temp 19:42 10/25/24 98.4 F Temp 00:43 10/26/24 BP 19:42 10/25/24 189/113 BP 00:43 10/26/24 HR 19:42 10/25/24 96 HR 00:43 10/26/24 108 RR 19:42 10/25/24 16 RR 00:43 10/26/24 O2 Sat 19:42 10/25/24 97% O2 Sat 00:43 10/26/24 92% Pain 19:42 10/25/24 10 Pain 00:43 10/26/24 ETCO2 19:42 10/25/24 ETCO2 00:43 10/26/24 GCS 19:42 10/25/24 GCS 00:43 10/26/24 RTS 19:42 10/25/24 RTS 00:43 10/26/24 PROCEDURES NURSING INTERVENTIONS LABS / STUDIES LABS / STUDIES ORDERED CBC w Diff CMP CRP CT Brain wo Cont EKG - ED Flu Swab (Influenzae AAg) HCG, Qual Serum 3 of 4 Visit Overview Rapid COVID (SARS) ANTIGEN TEST Troponin-I Urinalysis CLINICAL IMPRESSION ESSENTIAL HYPERTENSION HYPERTENSIVE HEADACHE 4 of 4 Normal [facility] ED VITALS FLOW SHEETon 10-30 ED VITALS FLOW SHEET Vitals Vital Sign Flow Sheet [facility] [address] [facility] [place] [address] [id number] 10/25/2024 Patient: JULIETTE CREWS Sex: Female : 1975 Age: 49y Measurements Wt: 61.2 kg Measured Time BP MAP HR RR O2Sat ETCO2 Temp Pain GCS RTS 00:43 10/26/2024 108 92% 00:38 10/26/2024 106 92% 00:34 10/26/2024 130/81 95 106 00:33 10/26/2024 106 91% 00:30 10/26/2024 0 00:28 10/26/2024 108 92% 00:23 10/26/2024 106 92% 00:18 10/26/2024 105 93% 00:13 10/26/2024 106 93% 00:08 10/26/2024 100 93% 00:03 10/26/2024 132/88 105 102 00:03 10/26/2024 102 92% 23:58 10/25/2024 106 92% 23:53 10/25/2024 104 91% 23:48 10/25/2024 105 93% 1 of 4 Vitals Measured Time BP MAP HR RR O2Sat ETCO2 Temp Pain GCS RTS 23:43 10/25/2024 106 93% 23:38 10/25/2024 103 94% 23:33 10/25/2024 102 92% 23:28 10/25/2024 103 93% 23:23 10/25/2024 104 93% 23:18 10/25/2024 103 92% 23:13 10/25/2024 102 92% 23:08 10/25/2024 104 93% 23:04 10/25/2024 155/112 123 98 23:03 10/25/2024 101 91% 22:58 10/25/2024 103 92% 22:53 10/25/2024 104 93% 22:48 10/25/2024 102 92% 22:43 10/25/2024 102 92% 22:38 10/25/2024 104 93% 22:34 10/25/2024 146/114 126 101 22:33 10/25/2024 100 92% 22:28 10/25/2024 101 94% 22:23 10/25/2024 102 94% 22:18 10/25/2024 103 93% 22:13 10/25/2024 104 95% 22:08 10/25/2024 105 95% 22:03 10/25/2024 181 98% 21:58 10/25/2024 178 98% 21:53 10/25/2024 120 97% 2 of 4 Vitals Measured Time BP MAP HR RR O2Sat ETCO2 Temp Pain GCS RTS 21:48 10/25/2024 197 98% 21:43 10/25/2024 174 98% 21:38 10/25/2024 197 98% 21:33 10/25/2024 178 95% 21:33 10/25/2024 160/99 119 98 21:28 10/25/2024 167 97% 21:23 10/25/2024 217 98% 21:18 10/25/2024 174 96% 21:13 10/25/2024 149 98% 21:08 10/25/2024 102 96% 21:03 10/25/2024 96 97% 21:03 10/25/2024 168/96 132 96 20:58 10/25/2024 96 97% 20:53 10/25/2024 98 96% 20:49 10/25/2024 97 95% 20:44 10/25/2024 99 95% 20:39 10/25/2024 93 96% 20:34 10/25/2024 101 96% 20:34 10/25/2024 161/100 122 95 20:31 10/25/2024 162/105 123 94 20:29 10/25/2024 94 95% 20:04 10/25/2024 98 95% 20:04 10/25/2024 202/106 142 98 19:59 10/25/2024 97 97% 19:42 10/25/2024 189/113 138 96 16 97% 98.4 F 10 3 of 4 Vitals 4 of 4 Normal [facility] C-REACTIVE PROTEINon 025 CRP 0.98 mg/dl High 0.00 - 0.90 [facility] Comment on above: Performed By: #### 2 [id number] #### [facility],[address] [place] [address] CBC + DIFFon 10-25-2024 Baso # 0.02 x10EE3/UL Normal 0.00 - 0.10 [facility] Comment on above: Performed By: #### 2 [id number] #### [facility],[address] [place] [address] Basophils/100 WBC (Bld) 0.1 % Normal 0.0 - 2.0 [facility] Comment on above: Performed By: #### 2 60635 #### [facility],[address] [place] [address] CBC + DIFF Normal [facility] Comment on above: Result Comment: CBC- COMPLETE BLOOD COUNT Performed By: #### 2 08455 #### [facility],[address] [place] [address] EO # 0.45 x10EE3/UL Normal 0.00 - 0.50 [facility] Comment on above: Performed By: #### 2 16748 #### [facility],[address] [place] [address] 17768 Eosinophils/100 WBC (Bld) 3.0 % Normal 0.0 - 7.0 [facility] Comment on above: Performed By: #### 2 72491 #### [facility],[address] [place], [place] [phone] Erythrocyte distribution width (RBC) [Ratio] 16.5 % High 12.0 - 15.6 [facility] Comment on above: Performed By: #### 2 57852 #### [facility],[address] [place] [address] Hematocrit (Bld) [Volume fraction] 34.3 % Normal 34.0 - 46.0 [facility] Comment on above: Performed By: #### 2 49959 #### [facility],[address] [place] [address] Hemoglobin (Bld) [Mass/Vol] 11.6 g/dL Low 12.0 - 16.0 [facility] Comment on above: Performed By: #### 2 94571 #### [facility],[address] [place] [address] Lymph # 3.09 x10EE3/UL High 0.80 - 2.80 [facility] Comment on above: Performed By: #### 2 29294 #### [facility],[address] [place] [address] Lymphocytes/100 WBC (Bld) 21.0 % Normal 20.0 - 45.0 [facility] Comment on above: Performed By: #### 2 97956 #### [facility],[address] [place] [address] MANUAL DIFF N/A Normal [facility] Comment on above: Performed By: #### 2 76273 #### [facility],[address] [place] [address] MCH (RBC) [Entitic mass] 28 pg Normal 27 - 33 [facility] Comment on above: Performed By: #### 2 94750 #### [facility],[address] [place] [address] MCHC 34 X10 3 Normal 32 - 36 [facility] Comment on above: Performed By: #### 2 66197 #### [facility],[address] [place] [address] MCV (RBC) [Entitic vol] 82 fL Normal 80 - 99 [facility] Comment on above: Performed By: #### 2 50004 #### [facility],[address] [place] [address] [place] # 0.88 x10EE3/UL Normal 0.20 - 1.00 [facility] Comment on above: Performed By: #### 2 26080 #### [facility],[address] [place] [address] MONOS % 6.0 % Normal 0.0 - 10.0 [facility] Comment on above: Performed By: #### 2 94302 #### [facility],[address] [place], [place] [phone] Morphology Harry (Bld) [Interp] N/A Normal [facility] Comment on above: Performed By: #### 2 81043 #### [facility],[address] [place] [address] Neut # 10.30 x10EE3/UL High 1.50 - 7.10 [facility] Comment on above: Performed By: #### 2 25531 #### [facility],[address] [place] [address] Neutrophils/100 WBC (Bld) 69.9 % Normal 46.0 - 76.0 [facility] Comment on above: Performed By: #### 2 39241 #### [facility],[address] [place] [address]85[address] PLATELET 488 x10EE3/UL High 150 - 450 [facility] Comment on above: Performed By: #### 2 91048 #### [facility],[address] [place] [address] Platelet mean volume (Bld) [Entitic vol] 7.1 fL Normal 6.6 - 10.5 [facility] Comment on above: Result Comment: AUTO MATED DIFFERENTIAL Performed By: #### 2 76239 #### [facility],[address] [place] [address] 26819 RBC 4.17 x 10EE6/UL Normal 4.10 - 5.30 [facility] Comment on above: Performed By: #### 2 53653 #### [facility],[address] [place] [address] WBC 14.7 x 10EE3/UL High 4.5 - 10.8 [facility] Comment on above: Performed By: #### 2 81907 #### [facility],[address] [place] [address] 19086 CMP with eGFRon 10-25-2024 AGE 49 years Normal [facility] Comment on above: Performed By: #### 2 07322 #### [facility],[address] [place] [address] 82475 Albumin [Mass/Vol] 3.1 g/dL Low 3.4 - 5.0 [facility] Comment on above: Performed By: #### 2 17740 #### [facility],[address] [place] [address] Albumin/Globulin [Mass ratio] 0.7 {ratio} Low 0.9 - 1.6 [facility] Comment on above: Performed By: #### 2 41560 #### [facility],[address] [place] [address] 65131 ALK PHOS 133 U/L High 46 - 116 [facility] Comment on above: Performed By: #### 2 33679 #### [facility],[address] [place] [address] 05814 ALT [Catalytic activity/Vol] 25 U/L Normal 16 - 63 [facility] Comment on above: Performed By: #### 2 35122 #### [facility],[address] [place] [address] 09329 Anion gap [Moles/Vol] 8 mmol/L Low 10 - 20 [facility] Comment on above: Performed By: #### 2 39292 #### [facility],[address] [place] [address]1310 AST [Catalytic activity/Vol] 11 U/L Low 13 - 39 [facility] Comment on above: Performed By: #### 2 34397 #### [facility],[address] [place] [address] 09319 B/C RATIO 24 ratio Normal 0 - 30 [facility] Comment on above: Performed By: #### 2 60599 #### [facility],[address] [place] [address] 12252 Bilirubin [Mass/Vol] 0.1 mg/dL Low 0.2 - 1.0 [facility] Comment on above: Performed By: #### 2 24890 #### [facility],[address] [place] [address] 30695 Calcium [Mass/Vol] 8.9 mg/dL Normal 8.5 - 10.1 [facility] Comment on above: Performed By: #### 2 73752 #### [facility],[address] [place] [address] 03580 Chloride [Moles/Vol] 100 mmol/L Normal 98 - 107 [facility] Comment on above: Performed By: #### 2 49848 #### [facility],[address] [place], [place] [phone] CMP with eGFR Normal [facility] Comment on above: Result Comment: COMP REHENSIVE METABOLIC PANEL Performed By: #### 2 87232 #### [facility],[address] [place], [place] [phone] CO2 [Moles/Vol] 32.8 mmol/L High 21.0 - 32.0 [facility] Comment on above: Performed By: #### 2 90888 #### [facility],[address] [place] [address] Creatinine [Mass/Vol] 0.58 mg/dL Normal 0.55 - 1.02 [facility] Comment on above: Performed By: #### 2 70258 #### [facility],[address] [place] [address] GFR/1.73 sq M.predicted among non-blacks MDRD (S/P/Bld) [Vol rate/Area] mL/min/{1.73_m2} Normal 60 - 999 [facility] Comment on above: Performed By: #### 2 85272 #### [facility],[address] [place] [address] Result Comment: ACCO RDING TO THE NATIONAL KIDNEY DISEASE EDUCATION PROGRAM(NKDE), A NORMAL eGFR IS A VALUE GREATER THAN OR EQUAL TO 60 ML/MIN/1.73 SQ METERS. CHRONIC KIDNEY DISEASE: <60mL/MIN/1.73 SQ METERS KIDNEY FAILURE: <15mL/MIN/1.73 SQ METERS THIS TEST SHOULD ONLY BE USED FOR PATIENTS 18 YEARS OF AGE AND OLDER. Globulin (S) [Mass/Vol] 4.6 g/dL High 1.5 - 3.8 [facility] Comment on above: Performed By: #### 2 05717 #### [facility],[address] [place], [place] [phone] Glucose [Mass/Vol] 84 mg/dL Normal 74 - 106 [facility] Comment on above: Performed By: #### 2 61907 #### [facility],[address] [place] [address] 77733 Potassium [Moles/Vol] 4.0 mmol/L Normal 3.5 - 5.1 [facility] Comment on above: Performed By: #### 2 89801 #### [facility],[address] [place] [address] 21700 Protein [Mass/Vol] 7.7 g/dL Normal 6.4 - 8.2 [facility] Comment on above: Performed By: #### 2 30335 #### [facility],[address] [place] [address] Sodium [Moles/Vol] 137 mmol/L Normal 136 - 145 [facility] Comment on above: Performed By: #### 2 88690 #### [facility],[address] [place] [address] Urea nitrogen [Mass/Vol] 14 mg/dL Normal 7 - 18 [facility] Comment on above: Performed By: #### 2 82412 #### [facility],[address] [place] [address] CORONAVIRUS (SARS) ANTIGEN T ESTon 10-25-2024 EXTERNAL QC DONE? YES Normal [facility] Comment on above: Performed By: #### 2 35671 #### [facility],[address] [place] [address] INTERNAL CONTROL PASS Normal [facility] Comment on above: Performed By: #### 2 77264 #### [facility],[address] [place] [address] 43354 SARS ANTIGEN Negative Normal NORMAL: NEGATIVE [facility] Comment on above: Performed By: #### 2 92800 #### [facility],[address] [place], [place] [phone] SEND TO ? NO Normal [facility] Comment on above: Result Comment: SARS -CoV-2 THIS TEST IS BEING USED UNDER THE FDA EUA PROCEDURE. THIS ASSAY HAS BEEN VALIDATED AT [facility] FOR USE WITH NASAL AND NASOPHARYNGEAL SWAB SPECIMENS. INTERPRETIVE DATA TEST RESULTS SHOULD ALWAYS BE CONSIDERED IN THE CONTEXT OF CLINICAL OBSERVATIONS AND EPIDEMIOLOGICAL DATA IN MAKING FINAL DIAGNOSIS AND PATIENT MANAGEMENT DECISIONS. PATIENT MANAGEMENT SHOULD FOLLOW CURRENT CDC GUIDELINES. THE ORDY SARS ANTIGEN ROBERT DOES NOT DIFFERENTIATE BETWEEN SARS-CoV & SARS-CoV-2. A POSITIVE TEST RESULT INDICATES THE PRESENCE OF SARS-CoV-2 NUCLEOCAPSID PROTEIN ANTIGEN, AND THE PATIENT IS INFECTED WITH THE VIRUS AND PRESUMED TO BE CONTAGIOUS. A NEGATIVE TEST RESULT FOR THIS TEST MEANS THAT SARS-CoV-2 NUCLEOCAPSID PROTEIN ANTIGEN WAS NOT PRESENT IN THE SPECIMEN ABOVE THE LIMIT OF DETECTION. HOWEVER, A NEGATIVE RESULT DOES NOT RULE OUT COVID-19 AND SHOULD NOT BE USED THE SOLE BASIS FOR TREATMENT OR PATIENT MANAGEMENT DECISIONS. A NEGATIVE RESULT DOES NOT EXCLUDE THE POSSIBILITY OF COVID-19. NEGATIVE RESULTS, FROM PATIENTS WITH SYMPTOM ONSET BEYOND FIVE DAYS, SHOULD BE TREATED PRESUMPTIVE AND CONFIRMATION WITH A MOLECULAR ASSAY, IF NECESSARY, FOR PATIENT MANAGEMENT, MAY BE PERFORMED. WHEN DIAGNOSTIC TESTING IS NEGATIVE, THE POSSIBLILTY OF A FALSE NEGATIVE RESULT SHOULD BE CONSIDERED IN THE CONTEXT OF A PATIENT'S RECENT EXPOSURES AND THE PRESENCE OF CLINICAL SIGNS AND SYMPTOMS CONSISTENT WITH COVID-19. THE POSSIBILITY OF A FALSE NEGATIVE RESULT SHOULD ESPECIALLY BE CONSIDERED IF THE PATIENT'S RECENT EXPOSURES OR CLINICAL PRESENTATION INDICATE THAT COVID-19 IS LIKELY, AND DIAGNOSTIC TESTS FOR OTHER CAUSES OF ILLNESS (e.g., OTHER RESPIRATORY ILLNESS) ARE NEGATIVE. IF COVID-19 IS STILL SUSPECTED BASED ON EXPOSURE HISTORY TOGETHER WITH OTHER CLINICAL FINDINGS, RE-TESTING SHOULD BE CONSIDERED BY HEALTHCARE PROVIDERS IN CONSULTATION WITH PUBLIC HEALTH AUTHORITIES. Performed By: #### 2 [id number] #### [facility],[address] [place] [address] CT BRAIN W/O CONTRAST 10-05 CT BRAIN W/O CONTRAST [place] [address] Patient: JULIETTE CREWS Phone#: : [phone] Age: 49 Gender: F Pt. Type: ER Account: [id number] Location: 052 Ordering: VIKTOR FOY Exam Date: 10/25/2024/20:55 Family Phys: KASSIE POLANCO Charge Code: [id number] Physician: Collingsworth Order #: [id number] Dose#: 52.3 PROCEDURE: CT BRAIN WITHOUT CONTRAST COMPARISON: [facility], CT, BRAIN W W/O CON, 08/03/2023, 10:18. INDICATIONS: Headache. TECHNIQUE: CT images were obtained without contrast material. All CT scans at this facility use dose modulation, iterative reconstruction, and/or weight based dosing when appropriate to reduce radiation dose to as low as reasonably achievable. 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 No mass, edema, midline shift, or intracranial hemorrhage. CEREBELLUM: There is chronic asymmetry of the cerebella, the left is diminutive. BRAINSTEM: No edema, hemorrhage, mass, or inappropriate atrophy. CSF SPACES: There is a left parietal approach ventricular shunt, tip terminates in the left lateral ventricle. No hydrocephalus. SKULL: There is diffuse thickening of the skull. There is evidence of prior right parietal bore hole SINUSES: Small mucosal thickening in the left maxillary sinus. ORBITS: Limited views are unremarkable. OTHER: Negative. CONCLUSION: 1. No appreciable acute intracranial abnormality. Note: An acute ischemic event may not be initially evident on CT. 2. 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 Stable asymmetry of the cerebellum. Dictated by: Millicent Torres MD on 10/25/2024 at 21:21 Continued Report - Page 2 of 2 Patient: JULIETTE CREWS Phone#: : [phone] Age: 49 Gender: F Pt. Type: ER Account: [id number] Location: 052 Ordering: VIKTOR FOY Exam Date: 10/25/2024/20:55 Family Phys: KASSIE POLANCO Charge Code: [id number] Physician: Collingsworth Order #: [id number] Dose#: 52.3 Approved by: Millicent Torres MD on 10/25/2024 at 21:29 Normal [facility] INFLUENZA VIRUS RAPID A/Bon 10-25-2024 INFLUENZA VIRUS RAPID A/B INFLUENZA A NEGATIVE INFLUENZA B NEGATIVE INTERNAL NEG QC PASS INTERNAL POS QC PASS EXTERNAL QC DONE? YES SEND TO IC? NO A NEGATIVE TEST RESULT DOES NOT EXCLUDE INFECTION WITH INFLUENZA A OR B. THEREFORE, THE RESULTS OBTAINED FROM THIS FLU TEST SHOULD BE USED IN CONJUCTION WITH CLINICAL FINDINGS TO MAKE AN ACCURATE DIAGNOSIS. A POSITIVE RESULT DOES NOT RULE OUT CO-INFECTIONS WITH OTHER PATHOGENS OR IDENTIFY ANY SPECIFIC INFLUENZA A VIRUS SUBTYPE.CO-INFECTION WITH INFLUENZA A AND B IS RARE. IT IS RECOMMENDED THAT DUAL POSITIVE RESULTS BE CONFIRMED BY VIRAL CULTURE OR AN FDA-CLEARED INFLUENZA A AND B MOLECULAR ASSAY. INDIVIDUALS WHO HAVE RECEIVED NASALLY ADMINISTERED INFLUENZA A VACCINE MAY TEST POSITIVE IN COMMERCIALLY AVAILABLE INFLUENZA RAPID DIAGNOSTIC TESTS FOR UP TO THREE DAYS. RESULT CRITICAL? NO Normal [facility] Comment on above: Performed By: #### 2 [id number] #### [facility],[address] [place] [address] SERUM QUALon 10-25 EXTERNAL QC DONE? YES Normal [facility] Comment on above: Performed By: #### 2 [id number] #### [facility],[address] [place] [address] INTERNAL QC PASS Normal [facility] Comment on above: Performed By: #### 2 [id number] #### [facility],[address] [place] [address] SER Negative Normal NEGATIVE [facility] Comment on above: Performed By: #### 2 98991 #### [facility],[address] [place] [address] TROPONINon 10-25-2024 HS TROPONIN 5.6 pg/mL Normal 0.0 - 51.4 [facility] Comment on above: Performed By: #### 2 [id number] #### [facility],[address] [place] [address] URINALYSISon 10-25-2024 Amorphous NONE Normal [facility] Comment on above: Performed By: #### 2 55798 #### [facility],[address] [place] [address] Bacteria NONE Normal [facility] Comment on above: Performed By: #### 2 48873 #### [facility],[address] [place] [address] 37367 Bilirubin Ql (U) Negative Normal NORMAL: NEGATIVE [facility] Comment on above: Performed By: #### 2 59843 #### [facility],[address] [place] [address] 88943 Casts NONE Normal [facility] Comment on above: Performed By: #### 2 18692 #### [facility],[address] [place] [address] 71777 Clarity (U) clear Normal NORMAL: CLEAR [facility] Comment on above: Performed By: #### 2 71408 #### [facility],[address] [place] [address] 64526 Color (U) p.yel Normal NORMAL: YELLOW [facility] Comment on above: Performed By: #### 2 48903 #### [facility],[address] [place] [address] 28489 Crystals LM Nom (Urine sed) NONE Normal [facility] Comment on above: Performed By: #### 2 18252 #### [facility],[address] [place] [address] 65860 Epi Cells NONE Normal [facility] Comment on above: Performed By: #### 2 34752 #### [facility],[address] [place] [address] 41920 Glucose Ql (U) NORM Normal NORMAL: NORMAL [facility] Comment on above: Performed By: #### 2 68337 #### [facility],[address] [place] [address] 33541 Hemoglobin Ql (U) 10 Abnormal NORMAL: NEGATIVE [facility] Comment on above: Performed By: #### 2 29192 #### [facility],[address] [place] [address] 99192 Ketone Negative Normal NORMAL: NEGATIVE [facility] Comment on above: Performed By: #### 2 14207 #### [facility],[address] [place] [address] 47858 Leukocytes 25 Abnormal NORMAL: NEGATIVE [facility] Comment on above: Performed By: #### 2 94955 #### [facility],[address] [place] [address] 87954 Mucous NONE Normal [facility] Comment on above: Performed By: #### 2 63537 #### [facility],[address] [place] [address] Nitrite Ql (U) Negative Normal NORMAL: NEGATIVE [facility] Comment on above: Performed By: #### 2 82256 #### [facility],[address] [place] [address] pH (U) 8 [pH] Normal NORMAL: 5.0-8.0 [facility] Comment on above: Performed By: #### 2 42854 #### [facility],[address] [place] [address] Protein Ql (U) Negative Normal NORMAL: NEGATIVE [facility] Comment on above: Performed By: #### 2 90445 #### [facility],[address] [place] [address] Rbc 0-5 Normal 0-3/hpf [facility] Comment on above: Performed By: #### 2 85958 #### [facility],[address] [place] [address] Sp [place] 1.015 Normal NORMAL: 1.010-1.030 [facility] Comment on above: Performed By: #### 2 84891 #### [facility],[address] [place] [address] Specimen Type R Normal [facility] Comment on above: Performed By: #### 2 62638 #### [facility],[address] [place], [place] [id number] Urinalysis dipstick W Reflex Microscopic panel (U) SEE BELOW Normal [facility] Comment on above: Result Comment: MICR OSCOPIC Performed By: #### 2 49512 #### [facility],[address] [place] [address] 25933 Urobilinog NORM Normal NORMAL: NORMAL [facility] Comment on above: Performed By: #### 2 53006 #### [facility],[address] [place] [address] 40981 Wbc NONE Normal 0-5/hpf [facility] Comment on above: Performed By: #### 2 81850 #### [facility],[address] [place] [address] 86359 Yeast NONE Normal [facility] Comment on above: Performed By: #### 2 36213 #### [facility],[address] [place], [place] [id number] Gastroenterology Visit Repor ton 08-21-2024 Gastroenterology Visit Report [facility] [address] [place] [id number] OFFICE VISIT Date of Service: 08/21/24 MR#: [id number] Acct: [id number] Name: JULIETTE CREWS RAI Rep #: [id number] : 1975 Provider: ADAN grimes Age/Sex: 49/F Location[place] [facility] [place] Status: Signed Intake Vital Signs 11/04/21 13:39 08/21/24 13:52 Height 4 ft 7.9 in 4 ft 7.9 in Weight: 135 lb BMI 30.4 BP 149/90 H Respiration 18 Pulse 114 H Pulse Oximetry (%) 94 Oxygen Delivery Method room air Intake Visit Reasons: CHRONIC CONSTIPATION Chief Complaint: constipaiton 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: No Accompanied by: Sister Is patient in pain?: No Allergies amoxicillin (From Augmentin) Adverse Reaction (Verified 11/04/21 13:39) Diarrhea azithromycin (From Zithromax Z-Turner) Adverse Reaction (Verified 11/04/21 13:39) Diarrhea ciprofloxacin (From Cipro) Adverse Reaction (Verified 11/04/21 13:39) Pain in joints clavulanic acid (From Augmentin) Adverse Reaction (Verified 11/04/21 13:39) Diarrhea Medications ???Medication ???Instructions ???Recorded ???Confirmed ???Type multivitamin with folic acid 400 1 tab PO QHS general health 08/21/24 History mcg tablet (Thera) omeprazole 20 mg capsule,delayed 20 mg PO QHS acid reflux 03/11/18 08/21/24 History release aspirin 81 mg chewable tablet 81 mg PO DAILY@0800 03/14/1808/21 Rx potassium citrate 15 mEq (1,620 15 meq PO BID ##60 03/23/19 Rx mg) tablet,extended release Bacillus coagulans 10 billion cell 1 each PO QHS [facility]E [facility] 01/2408/21/24 History capsule,delayed release polyethylene glycol 3350 17 gram 17 gm PO DAILY PRN PRN Constipatio n 09/14/20 08/21/24 History oral powder packet budesonide 0.25 mg/2 mL suspension 0.25 mg inhalation BID 10/28/21 08/21/24 History for nebulization bisacodyl 5 mg tablet 5 mg PO .once weekly 08/21/2408/04 History docusate sodium 100 mg tablet 100 mg PO BID 08/21/24 08/21/24 Hi story (Stool Softener) linaclotide 290 mcg capsule 290 mcg PO QDAY #90 caps 08/21/24 08/21/24 Rx (Linzess) loratadine 10 mg tablet 10 mg PO QDAY 08/21/24 08/21/24 Hi story mineral oil (Fleet Mineral Oil 118 ml [place] .QTUFR 08/21/24 08/21/24 History enema) mupirocin calcium 2 % topical cream 1 applic topical BID 08/21/24 0 08/21/24 History ondansetron HCl 4 mg tablet 4 mg PO .COMPLEX #10 tabs 08/21/24 08/21/24 Rx oxybutynin chloride 15 mg 5 mg PO TID BLADDER 08/21/2408/21 History tablet,extended release 24 hr peg 3350-electrolytes 236 240 ml PO Q10M #4,000 mL 08/21/24 08/21/24 Rx gram-22.74 gram-6.74 gram-5.86 gram solution (Golytely) psyllium husk 0.52 gram capsule 0.52 g PO QDAY 08/21/24 08/21/24 H istory (Fiber Laxative (psyllium husk)) sertraline 50 mg tablet 50 mg PO QDAY 08/21/24 08/21/24 Hi story PFSH Medical History UTI (urinary tract infection) GI problem Kidney stone Seasonal allergies Wears glasses Depression Uses wheelchair History of urinary self-catheterization Back pain Constipation Gastric reflux Non-smoker BiPAP (biphasic positive airway pressure) dependence Asthma History of edema History of echocardiogram Hx of back injury Acquired scoliosis Spina bifida Surgical History History of incision and drainage Hx of eye surgery Hx of ileostomy History of brain shunt History of cystoscopy Hx of cholecystectomy Social History Smoking Status: Never smoker HPI HPI Chief Complaint: constipaiton Details: JULIETTE CREWS, is a 49 F who presents to the office today for - she is seen in the office today with her mom, sister and caregiver - used to do digital stimulation - enema on Tuesday and Fridays - stools are very small - smears or skid alexandra - Dulcolax 4 tabs and 2 stool softeners would result in an explosive stool - denies any abdominal pain - does experience abdominal distension - she will have nausea with laxatives - has a history of bed sores, presently none - has choked significantly in the past - she is supposed to be on a special diet, food is chopped up into small pieces, que often to take small bites, alternate sips and swallow - h/o CCX - denies any family h/o colon CA - in past she did a bag enema of water but this never worked, this was years ago - denies any weight loss - sister reports the idea behind the enemas two days a week, was so she could have a BM in a controlled environment and still function and go to shop during the week without interfering with her daily activities - sister reports she really needs to ke (more content not included)... Normal [facility] No Panel Informationon 06-07 [facility], [facility].; [facility], [place], [facility]. CNCOon 03-16-2023 CNCO Letter Text Normal [facility] CNCOon 03-09-2023 CNCO Letter Text Normal [facility] CNCOon 03-02-2023 CNCO Letter Text Normal [facility] CNCOon 01-28-2023 CNCO Letter Text Normal [facility] CNOVon 01-25-2023 CNOV Office Visit ([facility] ) -- JULIETTE CREWS ([id number]) 1975 F Date Time Provider Department 01/25/23 3:00 PM [facility] During your visit today, we recorded the following information about you: Nawaf Quinn MD 01/26/2023 5:10 PM Signed S: NAES. Wound care nurse/me felt continued NPWT not indicated. O: Gen alert, nad Sacral area - superficial skin loss, base of wound with healthy appearing granulation tissue, depth <2-3 mm, no cellulitis/abscess/infecti on A/P 47 year old female s/p pressure sore excision and gluteal rotation flap with delayed healing - now with superficial delayed healing. Silver nitrate applied. Can DC VAC and WTD dressing and convert to non-adherent gauze/small dressing. Patient can sit for no longer than 2 hrs followed by recovery period of 2 hrs. Sitting to recovery period should be 1:1 eg 30 min on/30 min off until complete resolution of wound healing. Patient may shower and return to her facility. Fu 6 weeks/prn. During this patient visit I have spent approximately 15 minutes out of 30 in counseling regarding treatment options and coordinating care. Allergies As of Date: 01/25/2023 Noted Allergy Reaction AUGMENTIN (AMOXICILLIN-POT CLAVUL*02/14/2013 6 - Diarrhea CEPHALEXIN 07/06/2017 6 - Diarrhea CIPROFLOXACIN 02/14/2013 14 - Other: See Comments Comments: joint swelling CLAVULANIC ACID 10/18/2018 6 - Diarrhea ZPAK (AZITHROMYCIN) 02/14/2013 6 - Diarrhea ALBUTEROL 09/24/2022 14 - Other: See Comments Comments: Makes her anxious Date Reviewed: 01/25/2023 Reviewed by: Nunu Alex LPN - Fully Assessed Primary Visit Diagnosis:Pressure injury of sacral region, stage 4 (HCC) [L89.154] Prescriptions as of 01/26/2023 - bisacodyl EC (DULCOLAX) 5 mg EC tablet - MUCUS RELIEF ER 600 mg 12 hr tablet - sulfamethoxazole-trimethop rim (BACTRIM DS) 800-160 mg per tablet - mupirocin (BACTROBAN) 2 % ointment APPLY OINTMENT EXTERNALLY TO AFFECTED AREA OF SACRAL WOUND DIRECTED - oxyCODONE IR (ROXICODONE) 5 mg immediate release tablet Take 1 tablet by mouth every 6 hours as needed for pain. - polyethylene glycol 3350 17 gram/dose powder Take 17 g by mouth as needed. - potassium citrate ER (UROCIT-K) 10 mEq (1,080 mg) - CONSTULOSE 10 gram/15 mL solution Take 30 g by mouth twice daily as needed. - calcium polycarbophil (FIBER-CAPS, CA POLYCARBOPHIL, ORAL) Take 2 tablets by mouth once daily. - aspirin 81 mg chewable tablet Take 81 mg by mouth. - omeprazole (PRILOSEC) 20 mg capsule - loratadine 10 mg cap Take by mouth once daily. - budesonide (PULMICORT) 0.25 mg/2 mL nebulizer solution Inhale as instructed. - Multivitamins chew Take by mouth. - PARoxetine 20 mg tablet Take 1 tablet by mouth once daily. - oxybutynin ER (DITROPAN XL) 15 mg 24 hr Extended Rel Tab Take 1 tablet by mouth once daily. Problem List As Of Date 01/25/2023 Noted Resolved S/P ACCOUNT SERVICES REPRESENTATIVE shunt [Z98.2] 03/12/2013 Hydrocephalus [G91.9] 03/12/2013 Edema of lower extremity [R60.0] 09/28/2022 Gastroesophageal reflux disease [K21.9] 10/12/2021 Wound of sacral region, initial encounter [S31.*10/05/2022 Infected wound [T14.8XXA, L08.9] 10/06/2022 Gram positive bacterial infection [A49.9] 10/06/2022 History of spina bifida [Z87.728] 10/06/2022 History of urinary diversion procedure [Z98.890]10/06/2022 Antibiotic causing adverse effect [T36.95XA] 10/06/2022 Leukocytosis [D72.829] 10/06/2022 Counseling, unspecified [Z71.9] 10/06/2022 Encounter Status:Closed by NAWAF QUINN on 01/26/23 [facility] CNPNon 01-12-2023 CNPN Telephone ([facility]) -- JULIETTE CREWS ([id number]) 1975 F Date Time Provider Department 01/12/23 SHELL RUTH During your visit today, we recorded the following information about you: Shell Ruth PA-C 01/12/2023 4:24 PM Signed I spoke with the patients Mother Mirella, she states the wound is healing well and much better over the past 2 weeks. No drainage. Wound Care nurse feels it is healing well also and the wound vac can be discontinued. I asked Mirella to text or Mychart pictures which she is working on. Wound vac can be DC'ed at this time. Shell Ruth PA-C Allergies As of Date: 01/12/2023 Noted Allergy Reaction AUGMENTIN (AMOXICILLIN-POT CLAVUL*02/14/2013 6 - Diarrhea CEPHALEXIN 07/06/2017 6 - Diarrhea CIPROFLOXACIN 02/14/2013 14 - Other: See Comments Comments: joint swelling CLAVULANIC ACID 10/18/2018 6 - Diarrhea ZPAK (AZITHROMYCIN) 02/14/2013 6 - Diarrhea ALBUTEROL 09/24/2022 14 - Other: See Comments Comments: Makes her anxious Date Reviewed: 12/28/2022 Reviewed by: Oralia Burnett MA - Fully Assessed Reason for Visit: Patient Update [1234] Prescriptions as of 01/14/2023 - bisacodyl EC (DULCOLAX) 5 mg EC tablet - MUCUS RELIEF ER 600 mg 12 hr tablet - sulfamethoxazole-trimethop rim (BACTRIM DS) 800-160 mg per tablet - mupirocin (BACTROBAN) 2 % ointment APPLY OINTMENT EXTERNALLY TO AFFECTED AREA OF SACRAL WOUND DIRECTED - oxyCODONE IR (ROXICODONE) 5 mg immediate release tablet Take 1 tablet by mouth every 6 hours as needed for pain. - polyethylene glycol 3350 17 gram/dose powder Take 17 g by mouth as needed. - potassium citrate ER (UROCIT-K) 10 mEq (1,080 mg) - CONSTULOSE 10 gram/15 mL solution Take 30 g by mouth twice daily as needed. - calcium polycarbophil (FIBER-CAPS, CA POLYCARBOPHIL, ORAL) Take 2 tablets by mouth once daily. - aspirin 81 mg chewable tablet Take 81 mg by mouth. - omeprazole (PRILOSEC) 20 mg capsule - loratadine 10 mg cap Take by mouth once daily. - budesonide (PULMICORT) 0.25 mg/2 mL nebulizer solution Inhale as instructed. - Multivitamins chew Take by mouth. - PARoxetine 20 mg tablet Take 1 tablet by mouth once daily. - oxybutynin ER (DITROPAN XL) 15 mg 24 hr Extended Rel Tab Take 1 tablet by mouth once daily. Problem List As Of Date 01/12/2023 Noted Resolved S/P ACCOUNT SERVICES REPRESENTATIVE shunt [Z98.2] 03/12/2013 Hydrocephalus [G91.9] 03/12/2013 Edema of lower extremity [R60.0] 09/28/2022 Gastroesophageal reflux disease [K21.9] 10/12/2021 Wound of sacral region, initial encounter [S31.*10/05/2022 Infected wound [T14.8XXA, L08.9] 10/06/2022 Gram positive bacterial infection [A49.9] 10/06/2022 History of spina bifida [Z87.728] 10/06/2022 History of urinary diversion procedure [Z98.890]10/06/2022 Antibiotic causing adverse effect [T36.95XA] 10/06/2022 Leukocytosis [D72.829] 10/06/2022 Counseling, unspecified [Z71.9] 10/06/2022 Encounter Status:Closed by SHELL RUTH on 01/14/23 [facility] Bacteria Wnd Culton 12-29-19 Bacteria identified Cx Nom (Wound) ORGANISM ID: 1 Many Corynebacterium species Identified as Corynebacterium striatum group ORGANISM ID: 2 Few Klebsiella pneumoniae Extended-spectrum beta-lactamase (ESBL) production detected in this isolate. ESBL producing strains are considered resistant to all cephalosporins, penicillins, and aztreonam. GRAM STAIN: No organisms seen Rare Polymorphonuclear leukocytes ORGANISM ID: 2 (KLEBSIELLA PNEUMONIAE) ANTIBIOTIC INTERPRETATION KELSEY STATUS REFERENCE RANGE Ampicillin R >16 F Susceptible <=8 , Intermediate >8 , Resistant >16 Cefazolin R >16 F Susceptible <=2 , Intermediate >2 , Resistant >=8 Ceftriaxone R >32 F Susceptible <=1 , Intermediate >1 , Resistant >=4 Cefepime R >16 F Susceptible <=2 , Susceptible-Dose Dependent >2 , Resistant >=16 Ertapenem S <=0.25 F Susceptible <=0.5 , Intermediate >.5 , Resistant >1 Meropenem S <=0.5 F Susceptible <=1 , Intermediate >1 , Resistant >2 Aztreonam R >16 F Susceptible <=4 , Intermediate >4 , Resistant >=16 Gentamicin S <=2 F Susceptible <=4 , Intermediate >4 , Resistant >8 Trimeth sulfameth R >2 F Ciprofloxacin R >2 F Susceptible <=0.25 , Intermediate >.25 , Resistant >.5 Abnormal [facility] Comment on above: Performed By: #### 6 [id number] #### [facility] CLIA [id number] [address] CNOVon 12-28-2022 CNOV Office Visit ([facility]) -- JULIETTE CREWS ([id number]) 1975 F Date Time Provider Department 12/28/22 1:[address] [facility] During your visit today, we recorded the following information about you: Shell Ruth PA-C 01/12/2023 4:09 PM Addendum Plastic Surgery Postop Note Subjective: Juliette Crews is a 47 year old female who presents 2.5 month(s) post-op: excision sacral wound with myocutaneous flap coverage . She has been treating the area of delayed wound healing with wound vac. The central wound is healing and becoming more superficial. Using wound vac and home care is still coming in. It is healing well. She also has an area to the right of the wound that is leaking. Fluid is serosang with no odor. It is Coming from a pinpoint opening. No surrounding erythema. Culture taken ROS: Review of Systems Constitutional: Negative for chills and fever. Skin: Negative for rash. Physical Exam General Appearance: Well appearing, alert, in no acute distress, well-hydrated, well nourished.. Skin: Skin color, texture, turgor normal, no suspicious rashes or lesions. INCISION: Wound becoming more superficial. 1.5 cm x 0.8 cm No erythema or drainage. To the right of the wound there is a pinpoint area of ss leakage. no erythema. Not malodorous. Assessment: (Z98.890) Post-operative state (primary encounter diagnosis) improving area of delayed healing Plan: ABSCESS AND WOUND CULTURE WITH GRAM STAIN Plan: - Continue wound vac - Culture pending - FU 3 weeks or prn with photos Shell Ruth PA-C 12/30/22- spoke with mother regarding culture results ( she does not use Mychart) Shell Ruth PA-C Allergies As of Date: 12/28/2022 Noted Allergy Reaction AUGMENTIN (AMOXICILLIN-POT CLAVUL*02/14/2013 6 - Diarrhea CEPHALEXIN 07/06/2017 6 - Diarrhea CIPROFLOXACIN 02/14/2013 14 - Other: See Comments Comments: joint swelling CLAVULANIC ACID 10/18/2018 6 - Diarrhea ZPAK (AZITHROMYCIN) 02/14/2013 6 - Diarrhea ALBUTEROL 09/24/2022 14 - Other: See Comments Comments: Makes her anxious Date Reviewed: 12/28/2022 Reviewed by: Oralia Burnett MA - Fully Assessed Reason for Visit: Post Op [174] Primary Visit Diagnosis:Post-operative state [Z98.890] Order(s):ABSCESS AND WOUND CULTURE WITH GRAM STAIN [SQWCUL] Order #: [id number]. #:[id number] Prescriptions as of 01/12/2023 - bisacodyl EC (DULCOLAX) 5 mg EC tablet - MUCUS RELIEF ER 600 mg 12 hr tablet - sulfamethoxazole-trimethop rim (BACTRIM DS) 800-160 mg per tablet - mupirocin (BACTROBAN) 2 % ointment APPLY OINTMENT EXTERNALLY TO AFFECTED AREA OF SACRAL WOUND DIRECTED - oxyCODONE IR (ROXICODONE) 5 mg immediate release tablet Take 1 tablet by mouth every 6 hours as needed for pain. - polyethylene glycol 3350 17 gram/dose powder Take 17 g by mouth as needed. - potassium citrate ER (UROCIT-K) 10 mEq (1,080 mg) - CONSTULOSE 10 gram/15 mL solution Take 30 g by mouth twice daily as needed. - calcium polycarbophil (FIBER-CAPS, CA POLYCARBOPHIL, ORAL) Take 2 tablets by mouth once daily. - aspirin 81 mg chewable tablet Take 81 mg by mouth. - omeprazole (PRILOSEC) 20 mg capsule - loratadine 10 mg cap Take by mouth once daily. - budesonide (PULMICORT) 0.25 mg/2 mL nebulizer solution Inhale as instructed. - Multivitamins chew Take by mouth. - PARoxetine 20 mg tablet Take 1 tablet by mouth once daily. - oxybutynin ER (DITROPAN XL) 15 mg 24 hr Extended Rel Tab Take 1 tablet by mouth once daily. Problem List As Of Date 12/28/2022 Noted Resolved S/P ACCOUNT SERVICES REPRESENTATIVE shunt [Z98.2] 03/12/2013 Hydrocephalus [G91.9] 03/12/2013 Edema of lower extremity [R60.0] 09/28/2022 Gastroesophageal reflux disease [K21.9] 10/12/2021 Wound of sacral region, initial encounter [S31.*10/05/2022 Infected wound [T14.8XXA, L08.9] 10/06/2022 Gram positive bacterial infection [A49.9] 10/06/2022 History of spina bifida [Z87.728] 10/06/2022 History of urinary diversion procedure [Z98.890]10/06/2022 Antibiotic causing adverse effect [T36.95XA] 10/06/2022 Leukocytosis [D72.829] 10/06/2022 Counseling, unspecified [Z71.9] 10/06/2022 Encounter Status:Closed by SHELL RUTH on 12/28/22 [facility] 12-16-2022 [facility] Telephone (PLWBA) -- JULIETTE CREWS ([id number]) 1975 F Date Time Provider Department 12/16/22 NAWAF QUINN [facility] During your visit today, we recorded the following information about you: Love Falcon 12/16/2022 1:57 PM Signed Madonna from [facility] (P: [phone] F: [phone]) called asking for instructions for pt's wound VAC and instructions for wound on R upper buttocks. Please advise. Thank you. Oralia Burnett MA 12/17/2022 3:06 PM Signed Thank you Love, I am waiting for Dr. Quinn to sign his office note. I will send AVS. Oralia Burnett MA Allergies As of Date: 12/16/2022 Noted Allergy Reaction AUGMENTIN (AMOXICILLIN-POT CLAVUL*02/14/2013 6 - Diarrhea CEPHALEXIN 07/06/2017 6 - Diarrhea CIPROFLOXACIN 02/14/2013 14 - Other: See Comments Comments: joint swelling CLAVULANIC ACID 10/18/2018 6 - Diarrhea ZPAK (AZITHROMYCIN) 02/14/2013 6 - Diarrhea ALBUTEROL 09/24/2022 14 - Other: See Comments Comments: Makes her anxious Date Reviewed: 12/14/2022 Reviewed by: Oralia Burnett MA - Fully Assessed Reason for Visit: Wound Care [485] Prescriptions as of 12/21/2022 - sulfamethoxazole-trimethop rim (BACTRIM DS) 800-160 mg per tablet Take 1 tablet by mouth twice daily for 7 days. - mupirocin (BACTROBAN) 2 % ointment Apply to affected area every 12 hours as needed (apply to affected wound) for up to 10 days. - sulfamethoxazole-trimethop rim (BACTRIM DS) 800-160 mg per tablet - mupirocin (BACTROBAN) 2 % ointment APPLY OINTMENT EXTERNALLY TO AFFECTED AREA OF SACRAL WOUND DIRECTED - oxyCODONE IR (ROXICODONE) 5 mg immediate release tablet Take 1 tablet by mouth every 6 hours as needed for pain. - polyethylene glycol 3350 17 gram/dose powder Take 17 g by mouth as needed. - potassium citrate ER (UROCIT-K) 10 mEq (1,080 mg) - CONSTULOSE 10 gram/15 mL solution Take 30 g by mouth twice daily as needed. - calcium polycarbophil (FIBER-CAPS, CA POLYCARBOPHIL, ORAL) Take 2 tablets by mouth once daily. - aspirin 81 mg chewable tablet Take 81 mg by mouth. - omeprazole (PRILOSEC) 20 mg capsule - loratadine 10 mg cap Take by mouth once daily. - budesonide (PULMICORT) 0.25 mg/2 mL nebulizer solution Inhale as instructed. - Multivitamins chew Take by mouth. - PARoxetine 20 mg tablet Take 1 tablet by mouth once daily. - oxybutynin ER (DITROPAN XL) 15 mg 24 hr Extended Rel Tab Take 1 tablet by mouth once daily. Problem List As Of Date 12/16/2022 Noted Resolved S/P ACCOUNT SERVICES REPRESENTATIVE shunt [Z98.2] 03/12/2013 Hydrocephalus [G91.9] 03/12/2013 Edema of lower extremity [R60.0] 09/28/2022 Gastroesophageal reflux disease [K21.9] 10/12/2021 Wound of sacral region, initial encounter [S31.*10/05/2022 Infected wound [T14.8XXA, L08.9] 10/06/2022 Gram positive bacterial infection [A49.9] 10/06/2022 History of spina bifida [Z87.728] 10/06/2022 History of urinary diversion procedure [Z98.890]10/06/2022 Antibiotic causing adverse effect [T36.95XA] 10/06/2022 Leukocytosis [D72.829] 10/06/2022 Counseling, unspecified [Z71.9] 10/06/2022 Encounter Status:Closed by [facility]CON [facility]PLHWBA ) -- JULIETTE CREWS ([id number]) 1975 F Date Time Provider Department 12/14/22 3:30 PM [facility] During your visit today, we recorded the following information about you: Nawaf Quinn MD 12/19/2022 8:13 PM Signed Plastic Surgery Postop Note All documentation from previous visit was copied and pasted, documentation has been reviewed and edited as necessary for today's visit. Subjective: Juliette Crews is a 47 year old female who presents today in post operative visit to 10/05/22 Excision sacral pressure sore [id number] 2. ATT [id number] NAES. Dehiscence again. Physical Exam General Appearance: Well appearing, alert, in no acute distress, well-hydrated, well nourished.. Skin: Skin color, texture, turgor normal, no suspicious rashes or lesions. Neurologic: Gait normal. Reflexes normal and symmetric. Sensation grossly intact.. INCISION: mostly clean dry/intact, most medial portion of incision with partial dehiscence, no e/o infection, no palpable bone, sutures removed, and NPWT dressing placed Assessment: S/p above - Plan: NPWT device placed Change MWF Will fu virtually one week, may try delayed primary closure based on healing vs continued NPWT The patient is seen and examined by Dr. Quinn and the following reflects his/her service. Scribed by Oralia Burnett MA I agree with the Chief Complaint, ROS, and Past Histories independently gathered by the clinical mining support worker and the remaining scribed note accurately describes my personal service to the patient. Allergies As of Date: 12/14/2022 Noted Allergy Reaction AUGMENTIN (AMOXICILLIN-POT CLAVUL*02/14/2013 6 - Diarrhea CEPHALEXIN 07/06/2017 6 - Diarrhea CIPROFLOXACIN 02/14/2013 14 - Other: See Comments Comments: joint swelling CLAVULANIC ACID 10/18/2018 6 - Diarrhea ZPAK (AZITHROMYCIN) 02/14/2013 6 - Diarrhea ALBUTEROL 09/24/2022 14 - Other: See Comments Comments: Makes her anxious Date Reviewed: 12/14/2022 Reviewed by: Oralia Burnett MA - Fully Assessed Reason for Visit: Established Patient [175] Primary Visit Diagnosis:Post-operative state [Z98.890] Prescriptions as of 12/19/2022 - sulfamethoxazole-trimethop rim (BACTRIM DS) 800-160 mg per tablet - mupirocin (BACTROBAN) 2 % ointment APPLY OINTMENT EXTERNALLY TO AFFECTED AREA OF SACRAL WOUND DIRECTED - oxyCODONE IR (ROXICODONE) 5 mg immediate release tablet Take 1 tablet by mouth every 6 hours as needed for pain. - polyethylene glycol 3350 17 gram/dose powder Take 17 g by mouth as needed. - potassium citrate ER (UROCIT-K) 10 mEq (1,080 mg) - CONSTULOSE 10 gram/15 mL solution Take 30 g by mouth twice daily as needed. - calcium polycarbophil (FIBER-CAPS, CA POLYCARBOPHIL, ORAL) Take 2 tablets by mouth once daily. - aspirin 81 mg chewable tablet Take 81 mg by mouth. - omeprazole (PRILOSEC) 20 mg capsule - loratadine 10 mg cap Take by mouth once daily. - budesonide (PULMICORT) 0.25 mg/2 mL nebulizer solution Inhale as instructed. - Multivitamins chew Take by mouth. - PARoxetine 20 mg tablet Take 1 tablet by mouth once daily. - oxybutynin ER (DITROPAN XL) 15 mg 24 hr Extended Rel Tab Take 1 tablet by mouth once daily. Problem List As Of Date 12/14/2022 Noted Resolved S/P ACCOUNT SERVICES REPRESENTATIVE shunt [Z98.2] 03/12/2013 Hydrocephalus [G91.9] 03/12/2013 Edema of lower extremity [R60.0] 09/28/2022 Gastroesophageal reflux disease [K21.9] 10/12/2021 Wound of sacral region, initial encounter [S31.*10/05/2022 Infected wound [T14.8XXA, L08.9] 10/06/2022 Gram positive bacterial infection [A49.9] 10/06/2022 History of spina bifida [Z87.728] 10/06/2022 History of urinary diversion procedure [Z98.890]10/06/2022 Antibiotic causing adverse effect [T36.95XA] 10/06/2022 Leukocytosis [D72.829] 10/06/2022 Counseling, unspecified [Z71.9] 10/06/2022 Encounter Status:Closed by NAWAF QUINN on 12/19/22 [facility] 12-03-2022 [facility] Telephone (AGPLASBTH ) -- ELEONORAJULIETTE ([id number]) 1975 F Date Time Provider Department 12/03/22 [facility] During your visit today, we recorded the following information about you: Love Falcon 12/03/2022 1:07 PM Signed [facility] [phone] F: [phone]. They need to know what procedure was done, wound care instructions and future treatments for the wound. Please advise. Thank you. Nunu Alex LPN 12/03/2022 2:21 PM Signed Hi, What are the current wound care instructions for patient? And then I will call and update them. Thank you! Nunu Alex LPN 12/08/2022 8:24 AM Signed Done. Spoke with Yudelka. Faxed over recent visit notes/op report with wound instructions as requested. Nunu Alex LPN Allergies As of Date: 12/03/2022 Noted Allergy Reaction AUGMENTIN (AMOXICILLIN-POT CLAVUL*02/14/2013 6 - Diarrhea CEPHALEXIN 07/06/2017 6 - Diarrhea CIPROFLOXACIN 02/14/2013 14 - Other: See Comments Comments: joint swelling CLAVULANIC ACID 10/18/2018 6 - Diarrhea ZPAK (AZITHROMYCIN) 02/14/2013 6 - Diarrhea ALBUTEROL 09/24/2022 14 - Other: See Comments Comments: Makes her anxious Date Reviewed: 11/30/2022 Reviewed by: Oralia Burnett MA - Fully Assessed Reason for Visit: Patient Update [1234] Prescriptions as of 12/08/2022 - sulfamethoxazole-trimethop rim (BACTRIM DS) 800-160 mg per tablet Take 1 tablet by mouth twice daily for 7 days. - sulfamethoxazole-trimethop rim (BACTRIM DS) 800-160 mg per tablet - mupirocin (BACTROBAN) 2 % ointment APPLY OINTMENT EXTERNALLY TO AFFECTED AREA OF SACRAL WOUND DIRECTED - oxyCODONE IR (ROXICODONE) 5 mg immediate release tablet Take 1 tablet by mouth every 6 hours as needed for pain. - polyethylene glycol 3350 17 gram/dose powder Take 17 g by mouth as needed. - potassium citrate ER (UROCIT-K) 10 mEq (1,080 mg) - CONSTULOSE 10 gram/15 mL solution Take 30 g by mouth twice daily as needed. - calcium polycarbophil (FIBER-CAPS, CA POLYCARBOPHIL, ORAL) Take 2 tablets by mouth once daily. - aspirin 81 mg chewable tablet Take 81 mg by mouth. - omeprazole (PRILOSEC) 20 mg capsule - loratadine 10 mg cap Take by mouth once daily. - budesonide (PULMICORT) 0.25 mg/2 mL nebulizer solution Inhale as instructed. - Multivitamins chew Take by mouth. - PARoxetine 20 mg tablet Take 1 tablet by mouth once daily. - oxybutynin ER (DITROPAN XL) 15 mg 24 hr Extended Rel Tab Take 1 tablet by mouth once daily. Problem List As Of Date 12/03/2022 Noted Resolved S/P ACCOUNT SERVICES REPRESENTATIVE shunt [Z98.2] 03/12/2013 Hydrocephalus [G91.9] 03/12/2013 Edema of lower extremity [R60.0] 09/28/2022 Gastroesophageal reflux disease [K21.9] 10/12/2021 Wound of sacral region, initial encounter [S31.*10/05/2022 Infected wound [T14.8XXA, L08.9] 10/06/2022 Gram positive bacterial infection [A49.9] 10/06/2022 History of spina bifida [Z87.728] 10/06/2022 History of urinary diversion procedure [Z98.890]10/06/2022 Antibiotic causing adverse effect [T36.95XA] 10/06/2022 Leukocytosis [D72.829] 10/06/2022 Counseling, unspecified [Z71.9] 10/06/2022 Encounter Status:Closed by NUNU ALEX on 12/08/22 [facility] Office Visit (PLHWBA ) -- JUILETTE CREWS ([id number]) 1975 F Date Time Provider Department 11/30/22 10:15 AM NAWAF QUINN PLHWBA During your visit today, we recorded the following information about you: Nawaf Quinn MD 12/01/2022 5:39 PM Signed Plastic Surgery Postop Note All documentation from previous visit was copied and pasted, documentation has been reviewed and edited as necessary for today's visit. Subjective: Juliette Crews is a 47 year old female who presents today in post operative visit to 10/05/22 Excision sacral pressure sore [id number] 2. ATT [id number] NAES. Dehiscence ?worsened. Physical Exam General Appearance: Well appearing, alert, in no acute distress, well-hydrated, well nourished.. Skin: Skin color, texture, turgor normal, no suspicious rashes or lesions. Neurologic: Gait normal. Reflexes normal and symmetric. Sensation grossly intact.. INCISION: mostly clean dry/intact, most medial portion of incision with partial dehiscence, no e/o infection, no palpable bone (silver nitrate placed), sutures placed Assessment: S/p above - Plan: Closed today - unfortunately at area of maximal tension and movement during transfers. No palpable bone, healthy granulating base. May consider wound VAC in future if delayed closure fails. Abx for 7 days prxis. The patient is seen and examined by Dr. Quinn and the following reflects his/her service. Scribed by Oralia Burnett MA I agree with the Chief Complaint, ROS, and Past Histories independently gathered by the clinical mining support worker and the remaining scribed note accurately describes my personal service to the patient. Allergies As of Date: 11/30/2022 Noted Allergy Reaction AUGMENTIN (AMOXICILLIN-POT CLAVUL*02/14/2013 6 - Diarrhea CEPHALEXIN 07/06/2017 6 - Diarrhea CIPROFLOXACIN 02/14/2013 14 - Other: See Comments Comments: joint swelling CLAVULANIC ACID 10/18/2018 6 - Diarrhea ZPAK (AZITHROMYCIN) 02/14/2013 6 - Diarrhea ALBUTEROL 09/24/2022 14 - Other: See Comments Comments: Makes her anxious Date Reviewed: 11/30/2022 Reviewed by: Oralia Burnett MA - Fully Assessed Reason for Visit: Post Op [174] Primary Visit Diagnosis:Post-operative state [Z98.890] Order(s):sulfamethoxazole- trimethoprim (BACTRIM DS) 800-160 mg per tabletTake 1 tablet by mouth twice daily for 7 days.Disp: 14 tabletRfl: 0 Prescriptions as of 12/01/2022 - sulfamethoxazole-trimethop rim (BACTRIM DS) 800-160 mg per tablet Take 1 tablet by mouth twice daily for 7 days. - sulfamethoxazole-trimethop rim (BACTRIM DS) 800-160 mg per tablet - mupirocin (BACTROBAN) 2 % ointment APPLY OINTMENT EXTERNALLY TO AFFECTED AREA OF SACRAL WOUND DIRECTED - oxyCODONE IR (ROXICODONE) 5 mg immediate release tablet Take 1 tablet by mouth every 6 hours as needed for pain. - polyethylene glycol 3350 17 gram/dose powder Take 17 g by mouth as needed. - potassium citrate ER (UROCIT-K) 10 mEq (1,080 mg) - CONSTULOSE 10 gram/15 mL solution Take 30 g by mouth twice daily as needed. - calcium polycarbophil (FIBER-CAPS, CA POLYCARBOPHIL, ORAL) Take 2 tablets by mouth once daily. - aspirin 81 mg chewable tablet Take 81 mg by mouth. - omeprazole (PRILOSEC) 20 mg capsule - loratadine 10 mg cap Take by mouth once daily. - budesonide (PULMICORT) 0.25 mg/2 mL nebulizer solution Inhale as instructed. - Multivitamins chew Take by mouth. - PARoxetine 20 mg tablet Take 1 tablet by mouth once daily. - oxybutynin ER (DITROPAN XL) 15 mg 24 hr Extended Rel Tab Take 1 tablet by mouth once daily. Problem List As Of Date 11/30/2022 Noted Resolved S/P ACCOUNT SERVICES REPRESENTATIVE shunt [Z98.2] 03/12/2013 Hydrocephalus [G91.9] 03/12/2013 Edema of lower extremity [R60.0] 09/28/2022 Gastroesophageal reflux disease [K21.9] 10/12/2021 Wound of sacral region, initial encounter [S31.*10/05/2022 Infected wound [T14.8XXA, L08.9] 10/06/2022 Gram positive bacterial infection [A49.9] 10/06/2022 History of spina bifida [Z87.728] 10/06/2022 History of urinary diversion procedure [Z98.890]10/06/2022 Antibiotic causing adverse effect [T36.95XA] 10/06/2022 Leukocytosis [D72.829] 10/06/2022 Counseling, unspecified [Z71.9] 10/06/2022 Prescriptions ordered this encounter Disp Refills Start End SULFAMETHOXAZOLE 800 MG-TRIMETHOPRIM* 14 t* 0 12/01/2022 12/08/2022 Route: ORAL Sig: Take 1 tablet by mouth twice daily for 7 days. Encounter Status:Closed by NAWAF QUINN on 12/01/22 [facility] 11-19-2022 [facility] Telephone (AGPLASBT ) -- JULIETTE CREWS ([id number]) 1975 F Date Time Provider Department 11/19/[address] [facility] During your visit today, we recorded the following information about you: Nunu Alex LPN 11/19/2022 1:16 PM Signed Hi Sabra Sher [facility] of is calling regarding concern for patient's family not able to care for patient wound properly at home. They are calling to inquire about getting home health nurse set up for patient. The Home care they were using prior that they want to use again now is- [facility]- they just need doctors order for this and faxed to the below number. I can fax this order over if this is okay! Thank you Nunu Alex LPN -Fax orders to: [phone] Allergies As of Date: 11/19/2022 Noted Allergy Reaction AUGMENTIN (AMOXICILLIN-POT CLAVUL*02/14/2013 6 - Diarrhea CEPHALEXIN 07/06/2017 6 - Diarrhea CIPROFLOXACIN 02/14/2013 14 - Other: See Comments Comments: joint swelling CLAVULANIC ACID 10/18/2018 6 - Diarrhea ZPAK (AZITHROMYCIN) 02/14/2013 6 - Diarrhea ALBUTEROL 09/24/2022 14 - Other: See Comments Comments: Makes her anxious Date Reviewed: 11/16/2022 Reviewed by: Oralia Burnett MA - Fully Assessed Reason for Visit: Orders [681] Primary Visit Diagnosis:Post-operative state [Z98.890] Prescriptions as of 11/19/2022 - sulfamethoxazole-trimethop rim (BACTRIM DS) 800-160 mg per tablet - mupirocin (BACTROBAN) 2 % ointment APPLY OINTMENT EXTERNALLY TO AFFECTED AREA OF SACRAL WOUND DIRECTED - oxyCODONE IR (ROXICODONE) 5 mg immediate release tablet Take 1 tablet by mouth every 6 hours as needed for pain. - polyethylene glycol 3350 17 gram/dose powder Take 17 g by mouth as needed. - potassium citrate ER (UROCIT-K) 10 mEq (1,080 mg) - CONSTULOSE 10 gram/15 mL solution Take 30 g by mouth twice daily as needed. - calcium polycarbophil (FIBER-CAPS, CA POLYCARBOPHIL, ORAL) Take 2 tablets by mouth once daily. - aspirin 81 mg chewable tablet Take 81 mg by mouth. - omeprazole (PRILOSEC) 20 mg capsule - loratadine 10 mg cap Take by mouth once daily. - budesonide (PULMICORT) 0.25 mg/2 mL nebulizer solution Inhale as instructed. - Multivitamins chew Take by mouth. - PARoxetine 20 mg tablet Take 1 tablet by mouth once daily. - oxybutynin ER (DITROPAN XL) 15 mg 24 hr Extended Rel Tab Take 1 tablet by mouth once daily. Problem List As Of Date 11/19/2022 Noted Resolved S/P ACCOUNT SERVICES REPRESENTATIVE shunt [Z98.2] 03/12/2013 Hydrocephalus [G91.9] 03/12/2013 Edema of lower extremity [R60.0] 09/28/2022 Gastroesophageal reflux disease [K21.9] 10/12/2021 Wound of sacral region, initial encounter [S31.*10/05/2022 Infected wound [T14.8XXA, L08.9] 10/06/2022 Gram positive bacterial infection [A49.9] 10/06/2022 History of spina bifida [Z87.728] 10/06/2022 History of urinary diversion procedure [Z98.890]10/06/2022 Antibiotic causing adverse effect [T36.95XA] 10/06/2022 Leukocytosis [D72.829] 10/06/2022 Counseling, unspecified [Z71.9] 10/06/2022 Encounter Status:Closed by NUNU ALEX on 11/19/22 Normal [facility]ID[facility] 11-17-2022 Acinetobacter gerber-baumanii complex Not detected Normal Not Detected [facility] ([place]) Comment on above: Performed By: #### B AMITA #### [place] [address] Bacteroides fragilis Not detected Normal Not Detected [facility] ([place]) Comment on above: Performed By: #### B AMITA #### [place] [address] BCID Comment See Comment Normal [facility] ([place]) Comment on above: Result Comment: Anti microbial resistance can occur via multiple mechanisms. A Not Detected result for antimicrobial resistance gene(s) does not indicate antimicrobial susceptibility. Culture identification and susceptibility results to follow. If BCID panel was negative (Not Detected) for all targets, this does not exclude a blood stream infection. Our blood culture system detected growth. Culture identification and susceptibility testing (if appropriate) to follow. Performed By: #### B AMITA #### [place] [address] Janki albicans Not detected Normal Not Detected [facility] ([place]) Comment on above: Performed By: #### B AMITA #### [place] [id number] Janki auris Not detected Normal Not Detected [facility] ([place]) Comment on above: Performed By: #### B AMITA #### [place] [id number] Janki glabrata Not detected Normal Not Detected [facility] ([place]) Comment on above: Performed By: #### B AMITA #### [facility] [address] [place] [address] Janki krusei Not detected Normal Not Detected [facility] ([place]) Comment on above: Performed By: #### B AMITA #### [facility] [address] [place] [address] Janki parapsilosis Not detected Normal Not Detected [facility] ([place]) Comment on above: Performed By: #### B AMITA #### [facility] [address] [place] [address] Janki tropicalis Not detected Normal Not Detected [facility] ([place]) Comment on above: Performed By: #### B AMITA #### [place] [address] Cryptococcus neoformans-gattii Not detected Normal Not Detected [facility] ([place]) Comment on above: Performed By: #### B AMITA #### [place] [address] CTX-M (ESBL) Not Applicable Normal Not Detected [facility] ([place]) Comment on above: Performed By: #### B AMITA #### [place] [address] E. Coli Not detected Normal Not Detected [facility] ([place] Comment on above: Performed By: #### B AMITA #### [place] [address] Enterobacter cloacae Complex Not detected Normal Not Detected [facility] ([place] Comment on above: Performed By: #### B AMITA #### [place] [address] Enterobacterales Not detected Normal Not Detected [facility] ([place]) Comment on above: Performed By: #### B AMITA #### [place] [address] Enterococcus faecalis Not detected Normal Not Detected [facility] ([place] Comment on above: Performed By: #### B AMITA #### [place] [address] Enterococcus faecium Not detected Normal Not Detected [facility] ([place] Comment on above: Performed By: #### B AMITA #### [facility] [address] [place] [id number] Haemophilus influenzae Not detected Normal Not Detected [facility] ([place]) Comment on above: Performed By: #### B AMITA #### [facility] [address] [place] [address] IMP (Carbapenemase) Not Applicable Normal Not Detected [facility] ([place]) Comment on above: Performed By: #### B AMITA #### [place] [address] Klebsiella aerogenes Not detected Normal Not Detected [facility] ([place] Comment on above: Performed By: #### B AMITA #### [place] [address] Klebsiella oxytoca Not detected Normal Not Detected [facility] ([place]) Comment on above: Performed By: #### B AMITA #### [place] [address] Klebsiella pneumoniae group Not detected Normal Not Detected [facility] ([place] Comment on above: Performed By: #### B AMITA #### [place] [address] KPC (Carbapenemase) Not Applicable Normal Not Detected [facility] ([place] Comment on above: Performed By: #### B AMITA #### [place] [address] Listeria monocytogenes Not detected Normal Not Detected [facility] ([place] Comment on above: Performed By: #### B AMITA #### [place] [address] MCR-1 (Colistin Resistance) Not Applicable Normal Not Detected [facility] ([place]) Comment on above: Performed By: #### B AMITA #### [place] [address] Mec A/C Not Applicable Normal Not Detected [facility] ([place]) Comment on above: Performed By: #### B AMITA #### [place] [address] Mec A/C-MREJ (MRSA) Not Applicable Normal Not Detected [facility] ([place]) Comment on above: Performed By: #### B AMITA #### [facility] [address] [place] [place] [address] NDM (Carbapenemase) Not Applicable Normal Not Detected [facility] ([place]) Comment on above: Performed By: #### B AMITA #### [facility] [address] [place] [address] Neisseria meningitidis (Encapsalated) Not detected Normal Not Detected [facility] ([place]) Comment on above: Performed By: #### B AMITA #### [facility] [address] [place] [address] OXA-48 like (Carbapenemase) Not Applicable Normal Not Detected [facility] ([place]) Comment on above: Performed By: #### B AMITA #### [place] [address] Proteus Not detected Normal Not Detected [facility] ([place] Comment on above: Performed By: #### B AMITA #### [place] [address] Pseudomonas aeruginosa Not detected Normal Not Detected [facility] ([place] Comment on above: Performed By: #### B AMITA #### [place] [address] S. agalactiae Org specific cx Ql (Vag fld) Not detected Normal Not Detected [facility] ([place] Comment on above: Performed By: #### B AMITA #### [address] [address] Salmonella species Not detected Normal Not Detected [facility] ([place]) Comment on above: Performed By: #### B AMITA #### [place] [address] Serratia marcescens Not detected Normal Not Detected A [facility] ([place]) Comment on above: Performed By: #### B AMITA #### [address] [address] Staphylococcus Not detected Normal Not Detected [facility] ([place]) Comment on above: Performed By: #### B AMITA #### [address] [address] Staphylococcus aureus Not detected Normal Not Detected [facility] ([place]) Comment on above: Result Comment: If S taphylococcus aureus is Detected, an Infectious Disease physician consult is required on identification. Performed By: #### B AMITA #### [place] [address] Staphylococcus epidermidis Not detected Normal Not Detected [facility] ([place] Comment on above: Performed By: #### B AMITA #### [place] [address] Staphylococcus lugdunensis Not detected Normal Not Detected [facility] ([place] Comment on above: Performed By: #### B AMITA #### [place] [address] Stenotropomonas maltophilia Not detected Normal Not Detected [facility] ([place] Comment on above: Performed By: #### B AMITA #### [place] [address] Streptococcus Detected Abnormal Not Detected [facility] ([place] Comment on above: Performed By: #### B AMITA #### [place] [address] Streptococcus pneumoniae Not detected Normal Not Detected [facility] ([place] Comment on above: Performed By: #### B AMITA #### [place] [address] Streptococcus pyogenes Detected Abnormal Not Detected [facility] ([place] Comment on above: Performed By: #### B AMITA #### [place] [address] Van A/B Not Applicable Normal Not Detected [facility] ([place] Comment on above: Performed By: #### B AMITA #### [place] [address] VIM (Carbapenemase) Not Applicable Normal Not Detected [facility] ([place]) Comment on above: Performed By: #### B AMITA #### [place] [address] Aida 11-16-2022 CNOV Office Visit ([facility]) -- JULIETTE CREWS ([id number]) 1975 F Date Time Provider Department 11/16/22 2:00 PM SHELL RUTHASBTBahrti During your visit today, we recorded the following information about you: Shell Ruth PA-C 11/17/2022 12:13 PM Signed Plastic Surgery Postop Note Subjective: Juliette Crews is a 47 year old female who presents 6 week(s) post-op: excision sacral pressure ulcer with reconstruction . The wound has opened up. No pain. Minimal drainage. Mother has been packing the wound with Iodoform. ROS: Review of Systems Constitutional: Negative for chills and fever. Skin: Negative for rash. Physical Exam General Appearance: Well appearing, alert, in no acute distress, well-hydrated, well nourished.. Skin: Skin color, texture, turgor normal, no suspicious rashes or lesions. INCISION: Dehiscence of central area of the wound 2cm x 1 cm with undermining medially approx 2 cm. no drainage or odor. No bone palpated. Assessment: (Z98.890) Post-operative state (primary encounter diagnosis) Plan: - Continue WTD packing dressing changes BID - Pressure offloading - Ok to send photos if symptoms worsen - FU as scheduled Shell Ruth PA-C Allergies As of Date: 11/16/2022 Noted Allergy Reaction AUGMENTIN (AMOXICILLIN-POT CLAVUL*02/14/2013 6 - Diarrhea CEPHALEXIN 07/06/2017 6 - Diarrhea CIPROFLOXACIN 02/14/2013 14 - Other: See Comments Comments: joint swelling CLAVULANIC ACID 10/18/2018 6 - Diarrhea ZPAK (AZITHROMYCIN) 02/14/2013 6 - Diarrhea ALBUTEROL 09/24/2022 14 - Other: See Comments Comments: Makes her anxious Date Reviewed: 11/16/2022 Reviewed by: Oralia Burnett MA - Fully Assessed Reason for Visit: Established Patient [175] Primary Visit Diagnosis:Post-operative state [Z98.890] Prescriptions as of 11/17/2022 - sulfamethoxazole-trimethop rim (BACTRIM DS) 800-160 mg per tablet - mupirocin (BACTROBAN) 2 % ointment APPLY OINTMENT EXTERNALLY TO AFFECTED AREA OF SACRAL WOUND DIRECTED - oxyCODONE IR (ROXICODONE) 5 mg immediate release tablet Take 1 tablet by mouth every 6 hours as needed for pain. - polyethylene glycol 3350 17 gram/dose powder Take 17 g by mouth as needed. - potassium citrate ER (UROCIT-K) 10 mEq (1,080 mg) - CONSTULOSE 10 gram/15 mL solution Take 30 g by mouth twice daily as needed. - calcium polycarbophil (FIBER-CAPS, CA POLYCARBOPHIL, ORAL) Take 2 tablets by mouth once daily. - aspirin 81 mg chewable tablet Take 81 mg by mouth. - omeprazole (PRILOSEC) 20 mg capsule - loratadine 10 mg cap Take by mouth once daily. - budesonide (PULMICORT) 0.25 mg/2 mL nebulizer solution Inhale as instructed. - Multivitamins chew Take by mouth. - PARoxetine 20 mg tablet Take 1 tablet by mouth once daily. - oxybutynin ER (DITROPAN XL) 15 mg 24 hr Extended Rel Tab Take 1 tablet by mouth once daily. Problem List As Of Date 11/16/2022 Noted Resolved S/P ACCOUNT SERVICES REPRESENTATIVE shunt [Z98.2] 03/12/2013 Hydrocephalus [G91.9] 03/12/2013 Edema of lower extremity [R60.0] 09/28/2022 Gastroesophageal reflux disease [K21.9] 10/12/2021 Wound of sacral region, initial encounter [S31.*10/05/2022 Infected wound [T14.8XXA, L08.9] 10/06/2022 Gram positive bacterial infection [A49.9] 10/06/2022 History of spina bifida [Z87.728] 10/06/2022 History of urinary diversion procedure [Z98.890]10/06/2022 Antibiotic causing adverse effect [T36.95XA] 10/06/2022 Leukocytosis [D72.829] 10/06/2022 Counseling, unspecified [Z71.9] 10/06/2022 Disposition: Return in about 2 weeks (around 11/30/2022). Follow-up and Disposition History for Encounter Date Provider Department [facility] Status:Closed by SHELL RUTH on 11/17/22 [facility] CNPFern 11-15-2022 CNPN Telephone ([facility] ) -- JULIETTE CREWS ([id number]) 1975 F Date Time Provider Department 11/15/[address] [facility] During your visit today, we recorded the following information about you: Oralia Burnett MA 11/15/2022 1:23 PM Signed Loi Degroot with [facility] [phone] called in to inform you over these events that happened over the weekend . ADELAIDA Drained fell out Tuesday. Was Keeping it clean and dry with guaze. Today an ambulance was called due to high blood pressure, fever, rapid heart rate. Patent was transported to [place] . Oralia Burnett MA Allergies As of Date: 11/15/2022 Noted Allergy Reaction AUGMENTIN (AMOXICILLIN-POT CLAVUL*02/14/2013 6 - Diarrhea CEPHALEXIN 07/06/2017 6 - Diarrhea CIPROFLOXACIN 02/14/2013 14 - Other: See Comments Comments: joint swelling CLAVULANIC ACID 10/18/2018 6 - Diarrhea ZPAK (AZITHROMYCIN) 02/14/2013 6 - Diarrhea ALBUTEROL 09/24/2022 14 - Other: See Comments Comments: Makes her anxious Date Reviewed: 11/09/2022 Reviewed by: Oralia Burnett MA - Fully Assessed Reason for Visit: Patient Update [1234] Prescriptions as of 11/16/2022 - mupirocin (BACTROBAN) 2 % ointment APPLY OINTMENT EXTERNALLY TO AFFECTED AREA OF SACRAL WOUND DIRECTED - oxyCODONE IR (ROXICODONE) 5 mg immediate release tablet Take 1 tablet by mouth every 6 hours as needed for pain. - polyethylene glycol 3350 17 gram/dose powder Take 17 g by mouth as needed. - potassium citrate ER (UROCIT-K) 10 mEq (1,080 mg) - CONSTULOSE 10 gram/15 mL solution Take 30 g by mouth twice daily as needed. - calcium polycarbophil (FIBER-CAPS, CA POLYCARBOPHIL, ORAL) Take 2 tablets by mouth once daily. - aspirin 81 mg chewable tablet Take 81 mg by mouth. - omeprazole (PRILOSEC) 20 mg capsule - loratadine 10 mg cap Take by mouth once daily. - budesonide (PULMICORT) 0.25 mg/2 mL nebulizer solution Inhale as instructed. - Multivitamins chew Take by mouth. - PARoxetine 20 mg tablet Take 1 tablet by mouth once daily. - oxybutynin ER (DITROPAN XL) 15 mg 24 hr Extended Rel Tab Take 1 tablet by mouth once daily. Problem List As Of Date 11/15/2022 Noted Resolved S/P ACCOUNT SERVICES REPRESENTATIVE shunt [Z98.2] 03/12/2013 Hydrocephalus [G91.9] 03/12/2013 Edema of lower extremity [R60.0] 09/28/2022 Gastroesophageal reflux disease [K21.9] 10/12/2021 Wound of sacral region, initial encounter [S31.*10/05/2022 Infected wound [T14.8XXA, L08.9] 10/06/2022 Gram positive bacterial infection [A49.9] 10/06/2022 History of spina bifida [Z87.728] 10/06/2022 History of urinary diversion procedure [Z98.890]10/06/2022 Antibiotic causing adverse effect [T36.95XA] 10/06/2022 Leukocytosis [D72.829] 10/06/2022 Counseling, unspecified [Z71.9] 10/06/2022 Encounter Status:Closed by ORALIA BURNETT on 11/16/22 [facility] Aida 11-09-2022 CNOV Office Visit ([facility] ) -- JULIETTE CREWS ([id number]) 1975 F Date Time Provider Department 11/09/22 9:45 AM NAWAF QUINN During your visit today, we recorded the following information about you: Nawaf Quinn MD 11/09/2022 4:53 PM Signed Plastic Surgery Postop Note All documentation from previous visit was copied and pasted, documentation has been reviewed and edited as necessary for today's visit. Subjective: Juliette Crews is a 47 year old female who presents today in post operative visit to 10/05/22 Excision sacral pressure sore [id number] 2. ATT [id number] NAES. Stable wound. Physical Exam General Appearance: Well appearing, alert, in no acute distress, well-hydrated, well nourished.. Skin: Skin color, texture, turgor normal, no suspicious rashes or lesions. Neurologic: Gait normal. Reflexes normal and symmetric. Sensation grossly intact.. INCISION: mostly clean dry/intact, most medial portion of incision with partial dehiscence, no e/o infection, no palpable bone (silver nitrate placed), sutures removed Assessment: S/p above - Plan: Cont local wound care Graduated sitting Fu as scheduled - will remove drain at that time. The patient is seen and examined by Dr. Quinn and the following reflects his/her service. Scribed by Oralia Burnett MA I agree with the Chief Complaint, ROS, and Past Histories independently gathered by the clinical mining support worker and the remaining scribed note accurately describes my personal service to the patient. 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 - polyethylene glycol 3350 17 gram/dose powder Take 17 g by mouth as needed. - potassium citrate ER (UROCIT-K) 10 mEq (1,080 mg) - CONSTULOSE 10 gram/15 mL solution Take 30 g by mouth twice daily as needed. - calcium polycarbophil (FIBER-CAPS, CA POLYCARBOPHIL, ORAL) Take 2 tablets by mouth once daily. - aspirin 81 mg chewable tablet Take 81 mg by mouth. - omeprazole (PRILOSEC) 20 mg capsule - loratadine 10 mg cap Take by mouth once daily. - budesonide (PULMICORT) 0.25 mg/2 mL nebulizer solution Inhale as instructed. - Multivitamins chew Take by mouth. - PARoxetine 20 mg tablet Take 1 tablet by mouth once daily. - oxybutynin ER (DITROPAN XL) 15 mg 24 hr Extended Rel Tab Take 1 tablet by mouth once daily. Problem List As Of Date 11/09/2022 Noted Resolved S/P ACCOUNT SERVICES REPRESENTATIVE shunt [Z98.2] 03/12/2013 Hydrocephalus [G91.9] 03/12/2013 Edema of lower extremity [R60.0] 09/28/2022 Gastroesophageal reflux disease [K21.9] 10/12/2021 Wound of sacral region, initial encounter [S31.*10/05/2022 Infected wound [T14.8XXA, L08.9] 10/06/2022 Gram positive bacterial infection [A49.9] 10/06/2022 History of spina bifida [Z87.728] 10/06/2022 History of urinary diversion procedure [Z98.890]10/06/2022 Antibiotic causing adverse effect [T36.95XA] 10/06/2022 Leukocytosis [D72.829] 10/06/2022 Counseling, unspecified [Z71.9] 10/06/2022 Encounter Status:Closed by NAWAF QUINN on 11/09/22 [facility] CNOVon 10-26-2022 CNOV Office Visit ([facility] ) -- JULIETTE CREWS ([id number]) 1975 F Date Time Provider Department 10/26/22 10:15 AM [facility] During your visit today, we recorded the following information about you: Nawaf Quinn MD 10/29/2022 4:54 PM Signed Plastic Surgery Postop Note Subjective: Juliette Crews is a 47 year old female who presents today in post operative visit to 10/05/22 Excision sacral pressure sore [id number] 2. ATT 38m55um Physical Exam General Appearance: Well appearing, alert, in no acute distress, well-hydrated, well nourished.. Skin: Skin color, texture, turgor normal, no suspicious rashes or lesions. Neurologic: Gait normal. Reflexes normal and symmetric. Sensation grossly intact.. INCISION: mostly clean dry/intact, most medial portion of incision with partial dehiscence, no e/o infection, no palpable bone Assessment: S/p above - Plan: Cont local wound care Delay in sitting protocol until healing Fu as scheduled The patient is seen and examined by Dr. Quinn and the following reflects his/her service. Scribed by Oralia Burnett MA I agree with the Chief Complaint, ROS, and Past Histories independently gathered by the clinical mining support worker and the remaining scribed note accurately describes my personal service to the patient. 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 - polyethylene glycol 3350 17 gram/dose powder Take 17 g by mouth as needed. - potassium citrate ER (UROCIT-K) 10 mEq (1,080 mg) - CONSTULOSE 10 gram/15 mL solution Take 30 g by mouth twice daily as needed. - calcium polycarbophil (FIBER-CAPS, CA POLYCARBOPHIL, ORAL) Take 2 tablets by mouth once daily. - aspirin 81 mg chewable tablet Take 81 mg by mouth. - omeprazole (PRILOSEC) 20 mg capsule - loratadine 10 mg cap Take by mouth once daily. - budesonide (PULMICORT) 0.25 mg/2 mL nebulizer solution Inhale as instructed. - Multivitamins chew Take by mouth. - PARoxetine 20 mg tablet Take 1 tablet by mouth once daily. - oxybutynin ER (DITROPAN XL) 15 mg 24 hr Extended Rel Tab Take 1 tablet by mouth once daily. Problem List As Of Date 10/26/2022 Noted Resolved S/P ACCOUNT SERVICES REPRESENTATIVE shunt [Z98.2] 03/12/2013 Hydrocephalus [G91.9] 03/12/2013 Edema of lower extremity [R60.0] 09/28/2022 Gastroesophageal reflux disease [K21.9] 10/12/2021 Wound of sacral region, initial encounter [S31.*10/05/2022 Infected wound [T14.8XXA, L08.9] 10/06/2022 Gram positive bacterial infection [A49.9] 10/06/2022 History of spina bifida [Z87.728] 10/06/2022 History of urinary diversion procedure [Z98.890]10/06/2022 Antibiotic causing adverse effect [T36.95XA] 10/06/2022 Leukocytosis [D72.829] 10/06/2022 Counseling, unspecified [Z71.9] 10/06/2022 Encounter Status:Closed by NAWAF QUINN on 10/29/22 [facility] CNPNon 10-11-2022 CNPN Telephone (PLHWBA) -- JULIETTE CREWS ([id number]) 1975 F Date Time Provider Department 10/11/22 NAWAF QUINN [facility] During your visit today, we recorded the following information about you: Orlaia Burnett MA 10/11/2022 3:51 PM Signed Timbo Degroot, patients home nurse called in with an update. Timbo states he is going to visit Juliette 2x weekly for 3 weeks and then once weekly for two weeks. He is currently leaving the incision open to air.He is going to change the ADELAIDA drain site once weekly using Tegaderm. He did notice some yellow drainage during dressing changes. Would you like to add anything? Oralia Burnett MA Timbo [phone] Shell Ruth PA-C 10/13/2022 3:06 PM Signed I spoke with Timbo. I told him to send an updated photo after the next visit. Oralia Burnett MA 10/13/2022 3:59 PM Signed Thank you! Oralia Burnett MA Allergies As of Date: 10/11/2022 Noted Allergy Reaction AUGMENTIN (AMOXICILLIN-POT CLAVUL*02/14/2013 6 - Diarrhea CEPHALEXIN 07/06/2017 6 - Diarrhea CIPROFLOXACIN 02/14/2013 14 - Other: See Comments Comments: joint swelling CLAVULANIC ACID 10/18/2018 6 - Diarrhea ZPAK (AZITHROMYCIN) 02/14/2013 6 - Diarrhea ALBUTEROL 09/24/2022 14 - Other: See Comments Comments: Makes her anxious Date Reviewed: 10/05/2022 Reviewed by: Griselda Durand RN - Fully Assessed Reason for Visit: Patient Update [1234] Prescriptions as of 10/13/2022 - doxycycline (VIBRA-TABS) 100 mg tablet Take 1 tablet by mouth twice daily for 10 days. - oxyCODONE IR (ROXICODONE) 5 mg immediate release tablet Take 1 tablet by mouth every 6 hours as needed for pain. - polyethylene glycol 3350 17 gram/dose powder Take 17 g by mouth as needed. - potassium citrate ER (UROCIT-K) 10 mEq (1,080 mg) - CONSTULOSE 10 gram/15 mL solution Take 30 g by mouth twice daily as needed. - calcium polycarbophil (FIBER-CAPS, CA POLYCARBOPHIL, ORAL) Take 2 tablets by mouth once daily. - aspirin 81 mg chewable tablet Take 81 mg by mouth. - omeprazole (PRILOSEC) 20 mg capsule - loratadine 10 mg cap Take by mouth once daily. - budesonide (PULMICORT) 0.25 mg/2 mL nebulizer solution Inhale as instructed. - Multivitamins chew Take by mouth. - PARoxetine 20 mg tablet Take 1 tablet by mouth once daily. - oxybutynin ER (DITROPAN XL) 15 mg 24 hr Extended Rel Tab Take 1 tablet by mouth once daily. Problem List As Of Date 10/11/2022 Noted Resolved S/P ACCOUNT SERVICES REPRESENTATIVE shunt [Z98.2] 03/12/2013 Hydrocephalus [G91.9] 03/12/2013 Edema of lower extremity [R60.0] 09/28/2022 Gastroesophageal reflux disease [K21.9] 10/12/2021 Wound of sacral region, initial encounter [S31.*10/05/2022 Infected wound [T14.8XXA, L08.9] 10/06/2022 Gram positive bacterial infection [A49.9] 10/06/2022 History of spina bifida [Z87.728] 10/06/2022 History of urinary diversion procedure [Z98.890]10/06/2022 Antibiotic causing adverse effect [T36.95XA] 10/06/2022 Leukocytosis [D72.829] 10/06/2022 Counseling, unspecified [Z71.9] 10/06/2022 Encounter Status:Closed by ORALIA BURNETT on 10/13/22 Normal [facility] Basic metabolic 2000 panelon 10-08-2022 Anion gap [Moles/Vol] 8 mmol/L Low 9-18 [facility] Comment on above: Order Comment: Speci men Type: BLOOD SPECIMENOrdering Facility: [facility] Address: [address] [address] Performed By: #### 1 1475-1, 635-3, 20488-0 #### [facility] CLIA [id number] [address] [place] [address] [place] #### BACPCR #### [facility] CLIA [id number] [address] [place] [address] [place] Calcium [Mass/Vol] 9.0 mg/dL Normal 8.5-10.2 [facility] Comment on above: Order Comment: Speci men Type: BLOOD SPECIMENOrdering Facility: [facility] Address: [address] Performed By: #### 1 1475-1, 635-3, 66697-0 #### [facility] CLIA [id number] [address] [place] [address] [place] #### BACPCR #### [facility] CLIA [id number] [address] [place] [address] [place] Chloride [Moles/Vol] 101 mmol/L Normal 97-105 [facility] Comment on above: Order Comment: Speci men Type: BLOOD SPECIMENOrdering Facility: [facility] Address: [address] Performed By: #### 1 1475-1, 635-3, 75106-3 #### [facility] CLIA [id number] [address] [place] [address] [place] #### BACPCR #### [facility] CLIA [id number] [address] [place] CO2 [Moles/Vol] 30 mmol/L Normal 22-30 [facility] Comment on above: Order Comment: Speci men Type: BLOOD SPECIMENOrdering Facility: [facility] Address: [address] [address] Performed By: #### 1 1475-1, 635-3, 48372-4 #### [facility] CLIA [id number] [address] #### BACPCR #### [facility] CLIA [id number] [facility] [place] Creatinine [Mass/Vol] 0.58 mg/dL Normal 0.58-0.96 [facility] Comment on above: Order Comment: Speci men Type: BLOOD SPECIMENOrdering Facility: [facility] Address: [address] [place] [address] Performed By: #### 1 1475-1, 635-3, 39903-7 #### [facility] CLIA [id number] [address] #### BACPCR #### [facility] CLIA [id number] [address] [place] [address] ESTIMATED GLOMERULAR FILTRATION RATE 112 mL/min/1.73m??? Normal >=60 [facility] Comment on above: Order Comment: Speci men Type: BLOOD SPECIMENOrdering Facility: [facility] Address: [address] [address] Result Comment: Priya mated Glomerular Filtration Rate (eGFR) is calculated using the 2020 CKD-EPI creatinine equation. This equation utilizes serum creatinine, sex, and age as parameters. The creatinine assay has traceable calibration to isotope dilution-mass spectrometry. Refer to KDIGO guidelines for clinical interpretation. In patients with unstable renal function, e.g. those with acute kidney injury, the eGFR may not accurately reflect actual GFR. Performed By: #### 1 1475-1, 635-3, 28602-2 #### [facility] CLIA [id number] [address] [place] [address] [place] #### BACPCR #### [facility] CLIA [id number] [address] [place] [address] [place] Glucose [Mass/Vol] 116 mg/dL High 74-99 [facility] Comment on above: Order Comment: Speci men Type: BLOOD SPECIMENOrdering Facility: [facility] Address: [address] [place], [place] [id number] Result Comment: The [place] Diabetes Association (ADA) provides guidance for cutoff values for fasting glucose and random glucose. The ADA defines fasting as no caloric intake for at least 8 hours. Fasting plasma glucose results between 100 to 125 mg/dL indicate increased risk for diabetes (prediabetes). Fasting plasma glucose results greater than or equal to 126 mg/dL meet the criteria for diagnosis of diabetes. In the absence of unequivocal hyperglycemia, results should be confirmed by repeat testing. In a patient with classic symptoms of hyperglycemia or hyperglycemic crisis, random plasma glucose results greater than or equal to 200 mg/dL meet the criteria for diagnosis of diabetes. Reference: Standards of Medical Care in Diabetes 2016, [place] [employer]. Diabetes Care. 2016.39(Suppl 1). Performed By: #### 1 1475-1, 635-3, 89923-3 #### [facility] CLIA [id number] 1 [place] [address] [place] #### BACPCR #### [facility] CLIA [id number] [facility] [place] [address] [place] Potassium [Moles/Vol] 3.9 mmol/L Normal 3.7-5.1 [facility] Comment on above: Order Comment: Speci men Type: BLOOD SPECIMENOrdering Facility: [facility] Address: [address] [place], [place] [address] Performed By: #### 1 1475-1, 635-3, 87566-5 #### [facility] CLIA [id number] 1 [place] [address] [place] #### BACPCR #### [facility] CLIA [id number] [address] [place] [address] [place] Sodium [Moles/Vol] 139 mmol/L Normal 136-144 [facility] Comment on above: Order Comment: Speci men Type: BLOOD SPECIMENOrdering Facility: [facility] Address: [address] [address] Performed By: #### 1 1475-1, 635-3, 73578-9 #### [facility] CLIA [id number] [address] [place] [address] [place] #### BACPCR #### [facility] CLIA [id number] [facility] [place] Urea nitrogen [Mass/Vol] 8 mg/dL Normal 7-21 [facility] Comment on above: Order Comment: Speci men Type: BLOOD SPECIMENOrdering Facility: [facility] Address: [address] [place] [address] Performed By: #### 1 1475-1, 63-3, 33563-5 #### [facility] CLIA [id number] [address] STATES [facility] #### BACPCR #### [facility] CLIA [id number] [address] [place] [address] [place] CBC panel Auto (Bld)on 10-08 Erythrocyte distribution width (RBC) [Ratio] 14.7 % Normal 11.5-15.0 [facility] Comment on above: Order Comment: Speci men Type: BLOOD SPECIMENOrdering Facility: [facility] Address: [address] [place] [address] Performed By: #### 1 1475-1, 635-3, 72789-8 #### [facility] CLIA [id number] [address] [place] #### BACPCR #### [facility] CLIA [id number] [address] [place] [address] [place] Hematocrit (Bld) [Volume fraction] 25.2 % Low 36.0-46.0 [facility] Comment on above: Order Comment: Speci men Type: BLOOD SPECIMENOrdering Facility: [facility] Address: [address] [address] Performed By: #### 1 1475-1, 63-3, 26665-0 #### [facility] CLIA [id number] [address] [place] [address] [place] #### BACPCR #### [facility] CLIA [id number] [address] [place] [address] [place] Hemoglobin (Bld) [Mass/Vol] 8.1 g/dL Low 11.5-15.5 [facility] Comment on above: Order Comment: Speci men Type: BLOOD SPECIMENOrdering Facility: [facility] Address: [address] [place] [address] Performed By: #### 1 1475-, 75-3, 89147-9 #### [facility] CLIA [id number] 1 [place] [address] [place] #### BACPCR #### [facility] CLIA [id number] [address] [place] [address] [place] MCH (RBC) [Entitic mass] 30.1 pg Normal 26.0-34.0 [facility] Comment on above: Order Comment: Speci men Type: BLOOD SPECIMENOrdering Facility: [facility] Address: [address] Performed By: #### 1 1475-1, 63-3, 95384-2 #### [facility] CLIA [id number] 1 [place] [address] [place] #### BACPCR #### [facility] CLIA [id number] [address] [place] [address] [place] MCHC (RBC) [Mass/Vol] 32.1 g/dL Normal 30.5-36.0 [facility] Comment on above: Order Comment: Speci men Type: BLOOD SPECIMENOrdering Facility: [facility] Address: [address] [address] Performed By: #### 1 1475-1, 635-3, 96359-5 #### [facility] CLIA [id number] [address] [place] [address] [place] #### BACPCR #### [facility] CLIA [id number] [address] [place] [address] [place] MCV (RBC) [Entitic vol] 93.7 fL Normal 80.0-100.0 [facility] Comment on above: Order Comment: Speci men Type: BLOOD SPECIMENOrdering Facility: [facility] Address: [address] [place] [address] Performed By: #### 1 1475-1, 63-3, 87571-6 #### [facility] CLIA [id number] [address] [place] [address] [place] #### BACPCR #### [facility] CLIA [id number] [address] [place] [address] [place] Nucleated RBC (Bld) [#/Vol] 10*3/uL Normal <0.01 [facility] Comment on above: Order Comment: Speci men Type: BLOOD SPECIMENOrdering Facility: [facility] Address: [address] [place] [address] Performed By: #### 1 1475-1, 635-3, 18415-4 #### [facility] CLIA [id number] [address] [place] [address] [place] #### BACPCR #### [facility] CLIA [id number] [address] [place] [address] [place] Platelet mean volume (Bld) [Entitic vol] 9.4 fL Normal 9.0-12.7 [facility] Comment on above: Order Comment: Speci men Type: BLOOD SPECIMENOrdering Facility: [facility] Address: [address] [place] [address] Performed By: #### 1 1475-1, 635-3, 40674-5 #### [facility] CLIA [id number] [address] [place] #### BACPCR #### [facility] CLIA [id number] [address] [place] [address] [place] Platelets (Bld) [#/Vol] 276 10*3/uL Normal 150-400 [facility] Comment on above: Order Comment: Speci men Type: BLOOD SPECIMENOrdering Facility: [facility] Address: [address] [place] [address] Performed By: #### 1 1475-1, 635-3, 13086-4 #### [facility] CLIA [id number] [address] [place] #### BACPCR #### [facility] CLIA [id number] [address] [place] [address] [place] RBC (Bld) [#/Vol] 2.69 10*6/uL Low 3.90-5.20 [facility] Comment on above: Order Comment: Speci men Type: BLOOD SPECIMENOrdering Facility: [facility] Address: [address] [place] [address] Performed By: #### 1 1475-1, 635-3, 73201-3 #### [facility] CLIA [id number] [address] [place] #### BACPCR #### [facility] CLIA [id number] [address] [place] [address] [place] WBC (Bld) [#/Vol] 14.12 10*3/uL High 3.70-11.00 [facility] Comment on above: Order Comment: Speci men Type: BLOOD SPECIMENOrdering Facility: [facility] Address: [address] [id number] Performed By: #### 1 1475-1, 635-3, 93108-6 #### [facility] CLIA [id number] 1 [place] [address] [facility] [place] #### BACPCR #### [facility] CLIA [id number] [address] [facility] [id number] [id number] [facility] [place] CONSULT PROGon 10-08-2022 CONSULT PROG HNO ID: [id number] Author: Dacia Gonzalez bharti Service: Pharmacy Author Type: Pharmacist Type: Consult Progress Note Filed: 10/08/2022 6:33 AM Note Text: PHARMACY VANCOMYCIN DOSING NOTE Patient Name: Juliette Crews Admission Date: 10/05/2022 Date of Consult: 10/08/2022 Time of Consult: 6:28 AM Indication: Bone AND joint infection Goal Range: 10-20 mcg/mL RECOMMENDATIONS/PLAN: Pharmacy consulted for vancomycin dosing for Juliette Crews, a 47 year old female. 1. Patient is currently ordered Vancomycin 1 g IV q12h. Today is day 3 of therapy. 2. The most recent vancomycin level was 16.9 mcg/mL drawn at 0505 on 10-08-2022. This is a ~12 hour level on the 3 day of therapy. 3. The present dose of vancomycin is the recommended dosage for this patient at this time. Continue therapy as prescribed. 4. The next vancomycin level has been ordered for 10-09-2022 at 0600 (Completed) We will follow patient renal function, vancomycin levels and doses with you during the course of therapy. Additional recommendations will appear in follow up notes. If you have any questions[place] [phone]. Age: [age] year old Allergies: ALLERGIES Allergen Reactions Augmentin [Amoxicil* Diarrhea Cephalexin Diarrhea Ciprofloxacin Other: See Comments joint swelling Clavulanic Acid Diarrhea Zpak [Azithromycin] Diarrhea Albuterol Other: See Comments Makes her anxious Last 3 Encounter Wt Readings: Date: Wt: 09/28/2022 68 kg (150 lb) 09/14/2022 68 kg (150 lb) 08/04/2022 68 kg (150 lb) Last 1 Encounter Ht Readings: Date: Ht: 09/28/2022 147.3 cm (4' 10) CrCl: >120 mL/min Temp (24hrs), Av.9 ?C (98.4 ?F), Min:36 ?C (96.8 ?F), Max:37.5 ?C (99.5 ?F) - Current Temp: 36 ?C (96.8 ?F) Labs BUN (mg/dL) Date Value 10/08/2022 8 10/07/2022 5 (L) 10/06/2022 10 Creatinine (mg/dL) Date Value 10/08/2022 0.58 10/07/2022 0.39 (L) 10/06/2022 0.56 (L) WBC (k/uL) Date Value 10/08/2022 14.12 (H) 10/07/2022 16.41 (H) 10/06/2022 13.68 (H) Vancomycin Levels: Vancomycin (ug/mL) Date/Time Value 10/08/2022 0505 16.9 Dacia Gonzalez [facility] Normal [facility] Vancomycin random [Mass/Vol] on 10-08-2022 Vancomycin [Mass/Vol] 16.9 ug/mL Normal 10.0-20.0 [facility] Comment on above: Order Comment: Speci men Type: BLOOD SPECIMENOrdering Facility: [facility] Address: [address] [place] [id number] Result Comment: Refe rence ranges and high/low indicator flags are provided as general guidelines only. The treating physician must determine appropriate target levels/dosing based on the specific clinical situation. Performed By: #### 1 1475-1, 635-3, 45439-9 #### [facility] CLIA [id number] 1 [place] [address] [place] #### BACPCR #### [facility] CLIA [id number] [address] [place] [address] [place] Basic metabolic 2000 panelon 10-07-2022 Anion gap [Moles/Vol] 8 mmol/L Low 9-18 [facility] Comment on above: Order Comment: Speci men Type: BLOOD SPECIMENOrdering Facility: [facility] Address: [address] Performed By: #### 1 1475-1, 635-3, 16222-8 #### [facility] CLIA [id number] [address] [place] [address] [place] #### BACPCR #### [facility] CLIA [id number] [address] [place] [address] [place] Calcium [Mass/Vol] 8.7 mg/dL Normal 8.5-10.2 [facility] Comment on above: Order Comment: Speci men Type: BLOOD SPECIMENOrdering Facility: [facility] Address: [address] [place] [address] Performed By: #### 1 1475-1, 635-3, 86012-9 #### [facility] CLIA [id number] [address] [place] [address] [place] #### BACPCR #### [facility] CLIA [id number] [address] [place] [address] [place] Chloride [Moles/Vol] 101 mmol/L Normal 97-105 [facility] Comment on above: Order Comment: Speci men Type: BLOOD SPECIMENOrdering Facility: [facility] Address: [address] [place] [address] Performed By: #### 1 1475-1, 635-3, 98211-9 #### [facility] CLIA [id number] [address] [place] [address] [place] #### BACPCR #### [facility] CLIA [id number] [address] [place] [address] [place] CO2 [Moles/Vol] 27 mmol/L Normal 22-30 [facility] Comment on above: Order Comment: Speci men Type: BLOOD SPECIMENOrdering Facility: [facility] Address: [address] [address] Performed By: #### 1 1475-1, 635-3, 76928-7 #### [facility] CLIA [id number] [address] [place] #### BACPCR #### [facility] CLIA [id number] [address] [place] Creatinine [Mass/Vol] 0.39 mg/dL Low 0.58-0.96 [facility] Comment on above: Order Comment: Speci men Type: BLOOD SPECIMENOrdering Facility: [facility] Address: [address] [place] [address] Performed By: #### 1 1475-1, 635-3, 30024-3 #### [facility] CLIA [id number] [address] [place] [address] [place] #### BACPCR #### [facility] CLIA [id number] [address] [place] [address] [place] ESTIMATED GLOMERULAR FILTRATION RATE 124 mL/min/1.73m??? Normal >=60 [facility] Comment on above: Order Comment: Speci men Type: BLOOD SPECIMENOrdering Facility: [facility] Address: [address] [place] [address] Result Comment: Priya mated Glomerular Filtration Rate (eGFR) is calculated using the 2020 CKD-EPI creatinine equation. This equation utilizes serum creatinine, sex, and age as parameters. The creatinine assay has traceable calibration to isotope dilution-mass spectrometry. Refer to KDIGO guidelines for clinical interpretation. In patients with unstable renal function, e.g. those with acute kidney injury, the eGFR may not accurately reflect actual GFR. Performed By: #### 1 1475-1, 635-3, 93378-8 #### [facility] CLIA [id number] 1 [place] [address] [place] #### BACPCR #### [facility] CLIA [id number] [address] [place] [address] [place] Glucose [Mass/Vol] 106 mg/dL High 74-99 [facility] Comment on above: Order Comment: Speci men Type: BLOOD SPECIMENOrdering Facility: [facility] Address: [address] [id number] Result Comment: The [place] Diabetes Association (ADA) provides guidance for cutoff values for fasting glucose and random glucose. The ADA defines fasting as no caloric intake for at least 8 hours. Fasting plasma glucose results between 100 to 125 mg/dL indicate increased risk for diabetes (prediabetes). Fasting plasma glucose results greater than or equal to 126 mg/dL meet the criteria for diagnosis of diabetes. In the absence of unequivocal hyperglycemia, results should be confirmed by repeat testing. In a patient with classic symptoms of hyperglycemia or hyperglycemic crisis, random plasma glucose results greater than or equal to 200 mg/dL meet the criteria for diagnosis of diabetes. Reference: Standards of Medical Care in Diabetes 2016, [place] [employer]. Diabetes Care. 2016.39(Suppl 1). Performed By: #### 1 1475-1, 635-3, 85492-6 #### [facility] CLIA [id number] [address] [place] [address] [place] #### BACPCR #### [facility] CLIA [id number] [facility] [place] [address] [place] Potassium [Moles/Vol] 3.6 mmol/L Low 3.7-5.1 [facility] Comment on above: Order Comment: Speci men Type: BLOOD SPECIMENOrdering Facility: [facility] Address: [address] [id number] Performed By: #### 1 1475-1, 635-3, 66217-9 #### [facility] CLIA [id number] 1 [place] [address] [place] #### BACPCR #### [facility] CLIA [id number] [address] [place] [address] [place] Sodium [Moles/Vol] 136 mmol/L Normal 136-144 [facility] Comment on above: Order Comment: Speci men Type: BLOOD SPECIMENOrdering Facility: [facility] Address: [address] [address] Performed By: #### 1 1475-1, 635-3, 73857-0 #### [facility] CLIA [id number] [address] [place] [address] [place] #### BACPCR #### [facility] CLIA [id number] [facility] [place] [address] [place] Urea nitrogen [Mass/Vol] 5 mg/dL Low 7-21 [facility] Comment on above: Order Comment: Speci men Type: BLOOD SPECIMENOrdering Facility: [facility] Address: [address] [place] [address] Performed By: #### 1 1475-1, 63-3, 97464-2 #### [facility] CLIA [id number] 1 [place] [address] [place] #### BACPCR #### [facility] CLIA [id number] [address] [place] [address] [place] CBC panel Auto (Bld)on 10-07 Erythrocyte distribution width (RBC) [Ratio] 14.9 % Normal 11.5-15.0 [facility] Comment on above: Order Comment: Speci men Type: BLOOD SPECIMENOrdering Facility: [facility] Address: [address] [place] [address] Performed By: #### 1 1475-1, 635-3, 62981-1 #### [facility] CLIA [id number] 1 [place] [address] [place] #### BACPCR #### [facility] CLIA [id number] [address] [place] Hematocrit (Bld) [Volume fraction] 23.8 % Low 36.0-46.0 [facility] Comment on above: Order Comment: Speci men Type: BLOOD SPECIMENOrdering Facility: [facility] Address: [address] [address] Performed By: #### 1 1475-1, 635-3, 46552-6 #### [facility] CLIA [id number] [address] [place] [address] [place] [facility] #### BACPCR #### [facility] CLIA [id number] [address] [place] [address] [place] Hemoglobin (Bld) [Mass/Vol] 7.9 g/dL Low 11.5-15.5 [facility] Comment on above: Order Comment: Speci men Type: BLOOD SPECIMENOrdering Facility: [facility] Address: [address] [place] [address] Performed By: #### 1 1475-1, 815-3, 97114-8 #### [facility] CLIA [id number] [address] [place] [address] [place] #### BACPCR #### [facility] CLIA [id number] [address] [place] [address] [place] MCH (RBC) [Entitic mass] 30.2 pg Normal 26.0-34.0 [facility] Comment on above: Order Comment: Speci men Type: BLOOD SPECIMENOrdering Facility: [facility] Address: [address] Performed By: #### 1 1475-1, 395-3, 75314-0 #### [facility] CLIA [id number] [address] [place] [address] [place] #### BACPCR #### [facility] CLIA [id number] [facility] [address] [place] MCHC (RBC) [Mass/Vol] 33.2 g/dL Normal 30.5-36.0 [facility] Comment on above: Order Comment: Speci men Type: BLOOD SPECIMENOrdering Facility: [facility] Address: [address] [place] [address] Performed By: #### 1 1475-1, 635-3, 74973-7 #### [facility] CLIA [id number] [address] #### BACPCR #### [facility] CLIA [id number] [address] [place] [address] [place] MCV (RBC) [Entitic vol] 90.8 fL Normal 80.0-100.0 [facility] Comment on above: Order Comment: Speci men Type: BLOOD SPECIMENOrdering Facility: [facility] Address: [address] [place] [address] Performed By: #### 1 1475-1, 63-3, 13697-6 #### [facility] CLIA [id number] [address] [place] [address] [place] #### BACPCR #### [facility] CLIA [id number] [address] [place] [address] [place] Nucleated RBC (Bld) [#/Vol] 10*3/uL Normal <0.01 [facility] Comment on above: Order Comment: Speci men Type: BLOOD SPECIMENOrdering Facility: [facility] Address: [address] [place] [address] Performed By: #### 1 1475-1, 635-3, 75797-9 #### [facility] CLIA [id number] [address] [place] #### BACPCR #### [facility] CLIA [id number] [address] [place] [address] [place] Platelet mean volume (Bld) [Entitic vol] 9.7 fL Normal 9.0-12.7 [facility] Comment on above: Order Comment: Speci men Type: BLOOD SPECIMENOrdering Facility: [facility] Address: [address] [place] [address] Performed By: #### 1 1475-1, 635-3, 66170-6 #### [facility] CLIA [id number] [address] [place] #### BACPCR #### [facility] CLIA [id number] [address] [place] [address] [place] Platelets (Bld) [#/Vol] 224 10*3/uL Normal 150-400 [facility] Comment on above: Order Comment: Speci men Type: BLOOD SPECIMENOrdering Facility: [facility] Address: [address] [place] [address] Performed By: #### 1 1475-1, 635-3, 15028-0 #### [facility] CLIA [id number] [address] [place] #### BACPCR #### [facility] CLIA [id number] [address] [place] [address] [place] RBC (Bld) [#/Vol] 2.62 10*6/uL Low 3.90-5.20 [facility] Comment on above: Order Comment: Speci men Type: BLOOD SPECIMENOrdering Facility: [facility] Address: [address] [place], [place] [address] Performed By: #### 1 1475-1, 635-3, 78362-1 #### [facility] CLIA [id number] [address] #### BACPCR #### [facility] CLIA [id number] [address] [place] [address] [place] WBC (Bld) [#/Vol] 16.41 10*3/uL High 3.70-11.00 [facility] Comment on above: Order Comment: Speci men Type: BLOOD SPECIMENOrdering Facility: [facility] Address: [address] [id number] Performed By: #### 1 1475-1, 635-3, 92681-3 #### [facility] CLIA [id number] [address] [place] [address] [facility] [place] #### BACPCR #### [facility] CLIA [id number] [address] [facility] [id number], [place] [address] [facility] CNDSon 10-07-2022 CNDS HNO ID: [id number] Author: Shell Ruth PA-C Service: Plastic Surgery Author Type: Physician Gear Setter Type: Discharge Summary Filed: 10/08/2022 1:13 PM Note Text: DISCHARGE SUMMARY PATIENT NAME: Jluiette Crews ADMISSION DATE: 10/05/2022 DISCHARGE DATE: 10/08/2022 ATTENDING PHYSICIAN: Nawaf Quinn MD Code Status: Not on file Highest Readmission Risk Score: 12 The 30 day readmissions risk score is derived from an internally validated risk model which evaluates patient level characteristics, utilization history, medication orders and lab results up until the day of discharge. Patients with a score of 40 or above are considered highest risk for readmission. Specific patient level drivers will be listed at the bottom of the summary. CONSULTING TEAMS DURING HOSPITALIZATION: Infections Disease Treatment Team: Attending Provider: Nawaf Quinn MD Consulting: Viktor Jaramillo MD REASON FOR HOSPITALIZATION: sacral wound DIAGNOSIS: Principal Problem: Wound of sacral region, initial encounter POA: Yes Active Problems: Infected wound POA: Unknown Gram positive bacterial infection POA: Unknown History of spina bifida POA: Unknown History of urinary diversion procedure POA: Unknown Antibiotic causing adverse effect POA: Unknown Leukocytosis POA: Unknown Counseling, unspecified POA: Unknown Resolved Problems: * No resolved hospital problems. * OPERATIONS DURING HOSPITALIZATION: Excision sacral wound with gluteal rotation flap PROCEDURES DURING HOSPITALIZATION: No procedures performed HOSPITAL COURSE: Pt presented to for surgery for sacral wound. After consent was obtained the procedure was performed as planned. For excess intraoperative bleeding 1 units RBC transfusion was given. The patient was admitted for close monitoring of incision and Hemoglobin. Hemoglobin stabilized, pain was adequately controlled and patient was prepared for DC. Transitions of Care Critical Issues: N/a LABS AND PROCEDURES PENDING AT DISCHARGE: No pending results. PATIENT CONDITION AT DISCHARGE: Good DISCHARGE DISPOSITION: Home with Parent Discharge Physical Exam: VITAL SIGNS: BP 130/81 Pulse 115 Temp 37 ?C (98.6 ?F) (Oral) Resp 20 Ht 147.3 cm (4' 10) Wt 68 kg (150 lb) SpO2 96% BMI 31.35 kg/m? GENERAL: Alert, no distress, cooperative SKIN: Skin color, texture, turgor normal. No rashes or lesions. WOUND: Clean, dry and intact INFORMATION PROVIDED TO PATIENT: WOUND/SURGICAL SITE CARE: Leave open to air DIET: Resume pre-hospital diet ACTIVITY: Bedrest ALLERGIES Allergen Reactions Augmentin [Amoxicil* Diarrhea Cephalexin Diarrhea Ciprofloxacin Other: See Comments joint swelling Clavulanic Acid Diarrhea Zpak [Azithromycin] Diarrhea Albuterol Other: See Comments Makes her anxious DISCHARGE MEDICATION: Current Discharge Medication List CONTINUE these medications which have NOT CHANGED polyethylene glycol 3350 17 g Take 17 g by mouth as needed. potassium citrate ER (UROCIT-K) 10 mEq (1,080 mg) calcium polycarbophil (FIBER-CAPS, CA POLYCARBOPHIL, ORAL) 2 tablets Take 2 tablets by mouth once daily. aspirin 81 mg Take 81 mg by mouth. omeprazole (PRILOSEC) 20 mg capsule loratadine 10 mg cap Take by mouth once daily. budesonide (PULMICORT) 0.25 mg/2 mL nebulizer solution Inhale as instructed. Multivitamins chew Take by mouth. PARoxetine (PAXIL) 20 mg Take 20 mg by mouth once daily. Refills: 0 oxybutynin ER (DITROPAN XL) 15 mg Take 15 mg by mouth once daily. Refills: 0 CONSTULOSE 30 g Take 30 g by mouth twice daily as needed. metoprolol tartrate (short acting) (LOPRESSOR) 25 mg Take 25 mg by mouth. PRO-STAT AWC 30 fluid ounces Take 30 fluid ounces by mouth as directed. Qty: 887 mL Refills: 0 Calcium Carbonate 1,000 mg Tab Take by mouth. ascorbic acid (vitamin C) (VITAMIN C) 500 mg Take 500 mg by mouth once daily. FUTURE APPOINTMENTS: Follow Up with Dr. Quinn 10/26/22 Urology regarding urostomy The patient's risk for 30-day readmission is determined using the following contributing factors: Pt variables contributing to increased readmission risk: 16 Active Medication Orders 8.5 First Resulted Calcium During Admission 5 Most Recent BUN Result 1 Insurance - Medicare Plan of care discussed with Patient and Guardian I have performed the ycsc-sk-bbaa and relevant services for a total of >30 minutes. SIGNATURE: Shell Ruth PA-C DATE: October 07, 2022 TIME: 11:14 AM Normal [facility]NP[facility] Telephone (PLHWBA) -- JULIETTE CREWS ([id number]) 1975 F Date Time Provider Department 10/07/22 [facility] During your visit today, we recorded the following information about you: Nunu Alex LPN 10/07/2022 9:34 AM Signed Update: Mitch Burnett from [facility] Board of called in wanting to speak with patient's spring encaser regarding after care summary post-op surgery on 10/[address] Quinn. She expressed concern for patient being discharged to go home after surgery. I explained that since patient is still admitted, if she had any questions regarding patient's care to call the hospital and ask to speak with patient's nurse. Nunu Alex LPN Allergies As of Date: 10/07/2022 Noted Allergy Reaction AUGMENTIN (AMOXICILLIN-POT CLAVUL*02/14/2013 6 - Diarrhea CEPHALEXIN 07/06/2017 6 - Diarrhea CIPROFLOXACIN 02/14/2013 14 - Other: See Comments Comments: joint swelling CLAVULANIC ACID 10/18/2018 6 - Diarrhea ZPAK (AZITHROMYCIN) 02/14/2013 6 - Diarrhea ALBUTEROL 09/24/2022 14 - Other: See Comments Comments: Makes her anxious Date Reviewed: 10/05/2022 Reviewed by: Griselda Durand RN - Fully Assessed Reason for Visit: Patient Update [1234] Prescriptions as of 10/07/2022 - polyethylene glycol 3350 17 gram/dose powder Take 17 g by mouth as needed. - potassium citrate ER (UROCIT-K) 10 mEq (1,080 mg) - CONSTULOSE 10 gram/15 mL solution Take 30 g by mouth twice daily as needed. - calcium polycarbophil (FIBER-CAPS, CA POLYCARBOPHIL, ORAL) Take 2 tablets by mouth once daily. - aspirin 81 mg chewable tablet Take 81 mg by mouth. - omeprazole (PRILOSEC) 20 mg capsule - loratadine 10 mg cap Take by mouth once daily. - budesonide (PULMICORT) 0.25 mg/2 mL nebulizer solution Inhale as instructed. - metoprolol tartrate, short acting, (LOPRESSOR) 25 mg tablet Take 25 mg by mouth. - amino acids-protein hydrolys (PRO-STAT AWC) 17-100 gram-kcal/30 mL liqd Take 30 fluid ounces by mouth as directed. - Calcium Carbonate 1,000 mg Tab Take by mouth. - ascorbic acid, vitamin C, (VITAMIN C) 500 mg tablet Take 500 mg by mouth once daily. - Multivitamins chew Take by mouth. - PARoxetine 20 mg tablet Take 1 tablet by mouth once daily. - oxybutynin ER (DITROPAN XL) 15 mg 24 hr Extended Rel Tab Take 1 tablet by mouth once daily. Facility-Administered Medications as of 10/07/2022 - vancomycin dosing and monitoring per pharmacy - vancomycin iv piggyback 1 g in D5W 200 mL (VANCOCIN) - ascorbic acid (vitamin C) 500 mg tab(s) (VITAMIN C) - budesonide 0.25 mg/2 mL 0.25 mg (PULMICORT) - aspirin 81 mg chewable tab(s) - polyethylene glycol 3350 17 g packet - lactulose 30 g CUP - NaCl 0.9% iv flush bag - keTORolac 15 mg injection (Toradol) - acetaminophen 325 mg tab(s) (TYLENOL) - oxyCODONE-acetaminophen 5-325 mg 2 tablet (PERCOCET) - morphine 2 mg injection - ondansetron 4 mg tab(s) (ZOFRAN) - ondansetron (PF) 4 mg injection (ZOFRAN) - pantoprazole DR 40 mg tab(s) (PROTONIX) - trospium 20 mg tab(s) (SANCTURA) - PARoxetine 40 mg tab(s) (PAXIL) Problem List As Of Date 10/07/2022 Noted Resolved S/P ACCOUNT SERVICES REPRESENTATIVE shunt [Z98.2] 03/12/2013 Hydrocephalus [G91.9] 03/12/2013 Edema of lower extremity [R60.0] 09/28/2022 Gastroesophageal reflux disease [K21.9] 10/12/2021 Wound of sacral region, initial encounter [S31.*10/05/2022 Infected wound [T14.8XXA, L08.9] 10/06/2022 Gram positive bacterial infection [A49.9] 10/06/2022 History of spina bifida [Z87.728] 10/06/2022 History of urinary diversion procedure [Z98.890]10/06/2022 Antibiotic causing adverse effect [T36.95XA] 10/06/2022 Leukocytosis [D72.829] 10/06/2022 Counseling, unspecified [Z71.9] 10/06/2022 Encounter Status:Closed by NUNU ALEX on 10/07/22 [facility] 10-06-2022 ALLIED HEALTH HNO ID: [id number] Author: Chaplain Taj Ribera Service: Spiritual Care Author Type: Student Type: Allied Health Filed: 10/06/2022 2:11 PM Note Text: SPIRITUAL CARE PROGRESS NOTE SERVICE DATE: 10/06/2022 SERVICE TIME: 9:53 am Initial visit, the patient request a prayer, after that she express gratitude To contact the Spiritual Care Department: Please call [phone]. SIGNATURE: Chaplain Mounika Student PATIENT NAME: Juliette Crews DATE: October 06, 2022 TIME: 2:09 PM PAGER/CONTACT #: [phone] [facility] Basic metabolic 2000 panelon 10-06-2022 Anion gap [Moles/Vol] 8 mmol/L Low 9-18 [facility] Comment on above: Order Comment: Speci men Type: BLOOD SPECIMENOrdering Facility: [facility] Address: [address] Performed By: #### 1 1475-1, 63-3, 70165-4 #### [facility] CLIA [id number] [address] [place] [address] [place] #### BACPCR #### [facility] CLIA [id number] [address] [place] [address] [place] Calcium [Mass/Vol] 8.5 mg/dL Normal 8.5-10.2 [facility] Comment on above: Order Comment: Speci men Type: BLOOD SPECIMENOrdering Facility: [facility] Address: [address] Performed By: #### 1 1475-1, 633, 50025-8 #### [facility] CLIA [id number] [address] [place] #### BACPCR #### [facility] CLIA [id number] [address] [place] [address] [place] Chloride [Moles/Vol] 104 mmol/L Normal 97-105 [facility] Comment on above: Order Comment: Speci men Type: BLOOD SPECIMENOrdering Facility: [facility] Address: [address] Performed By: #### 1 1475-1, 633, 03038-1 #### [facility] CLIA [id number] [address] [place] [address] [place] #### BACPCR #### [facility] CLIA [id number] [address] [place] [address] [place] CO2 [Moles/Vol] 28 mmol/L Normal 22-30 [facility] Comment on above: Order Comment: Speci men Type: BLOOD SPECIMENOrdering Facility: [facility] Address: [address] Performed By: #### 1 1475-1, 63-3, 93505-3 #### [facility] CLIA [id number] [address] #### BACPCR #### [facility] CLIA [id number] [address] [place] Creatinine [Mass/Vol] 0.56 mg/dL Low 0.58-0.96 [facility] Comment on above: Order Comment: Speci men Type: BLOOD SPECIMENOrdering Facility: [facility] Address: [address] [place] [address] Performed By: #### 1 1475-1, 635-3, 37292-9 #### [facility] CLIA [id number] [address] #### BACPCR #### [facility] CLIA [id number] [address] [place] [address] ESTIMATED GLOMERULAR FILTRATION RATE 113 mL/min/1.73m??? Normal >=60 [facility] Comment on above: Order Comment: Speci men Type: BLOOD SPECIMENOrdering Facility: [facility] Address: [address] [place] [address] Result Comment: Priya mated Glomerular Filtration Rate (eGFR) is calculated using the 2020 CKD-EPI creatinine equation. This equation utilizes serum creatinine, sex, and age as parameters. The creatinine assay has traceable calibration to isotope dilution-mass spectrometry. Refer to KDIGO guidelines for clinical interpretation. In patients with unstable renal function, e.g. those with acute kidney injury, the eGFR may not accurately reflect actual GFR. Performed By: #### 1 1475-1, 635-3, 36916-1 #### [facility] CLIA [id number] [address] [place] #### BACPCR #### [facility] CLIA [id number] [address] [place] [facility] Glucose [Mass/Vol] 98 mg/dL Normal 74-99 [facility] Comment on above: Order Comment: Audi lozano Type: BLOOD SPECIMENOrdering Facility: [facility] Address: [place] [id number] Result Comment: The [place] Diabetes Association (ADA) provides guidance for cutoff values for fasting glucose and random glucose. The ADA defines fasting as no caloric intake for at least 8 hours. Fasting plasma glucose results between 100 to 125 mg/dL indicate increased risk for diabetes (prediabetes). Fasting plasma glucose results greater than or equal to 126 mg/dL meet the criteria for diagnosis of diabetes. In the absence of unequivocal hyperglycemia, results should be confirmed by repeat testing. In a patient with classic symptoms of hyperglycemia or hyperglycemic crisis, random plasma glucose results greater than or equal to 200 mg/dL meet the criteria for diagnosis of diabetes. Reference: Standards of Medical Care in Diabetes 2016, [place] Diabetes Association. Diabetes Care. 2016.39(Suppl 1). Performed By: #### 1 1475-1, 635-3, 74273-2 #### [facility] CLIA [id number] [address] [place] [address] [place] #### BACPCR #### [facility] CLIA [id number] [address] [place] [address] [place] Potassium [Moles/Vol] 3.9 mmol/L Normal 3.7-5.1 [facility] Comment on above: Order Comment: Audi lozano Type: BLOOD SPECIMENOrdering Facility: [facility] Address: [place] [id number] Performed By: #### 1 1475-1, 635-3, 77285-5 #### [facility] CLIA [id number] [address] [place] [address] [place] #### BACPCR #### [facility] CLIA [id number] [address] [place] [address] [place] Sodium [Moles/Vol] 140 mmol/L Normal 136-144 [facility] Comment on above: Order Comment: Audi lozano Type: BLOOD SPECIMENOrdering Facility: [facility] Address: [address] [place] [address] Performed By: #### 1 1475-1, 635-3, 78169-4 #### [facility] CLIA [id number] [address] #### BACPCR #### [facility] CLIA [id number] [address] [place] Urea nitrogen [Mass/Vol] 10 mg/dL Normal 7-21 [facility] Comment on above: Order Comment: Speci men Type: BLOOD SPECIMENOrdering Facility: [facility] Address: [address] [place] [address] Performed By: #### 1 1475-1, 635-3, 34025-4 #### [facility] CLIA [id number] [address] [place] [address] #### BACPCR #### [facility] CLIA [id number] [address] [place] [address] [place] CBC panel Auto (Bld)on 10-06 Erythrocyte distribution width (RBC) [Ratio] 15.0 % Normal 11.5-15.0 [facility] Comment on above: Order Comment: Speci men Type: BLOOD SPECIMENOrdering Facility: [facility] Address: [address] Performed By: #### 1 1475-1, 635-3, 89998-4 #### [facility] CLIA [id number] [address] [place] [address] [place] #### BACPCR #### [facility] CLIA [id number] [address] [place] [address] [place] Hematocrit (Bld) [Volume fraction] 23.3 % Low 36.0-46.0 [facility] Comment on above: Order Comment: Speci men Type: BLOOD SPECIMENOrdering Facility: [facility] Address: [address] [place] [address] Performed By: #### 1 1475-1, 635-3, 90016-9 #### [facility] CLIA [id number] [address] [place] #### BACPCR #### [facility] CLIA [id number] [address] [place] [address] [place] Hemoglobin (Bld) [Mass/Vol] 7.9 g/dL Low 11.5-15.5 [facility] Comment on above: Order Comment: Speci men Type: BLOOD SPECIMENOrdering Facility: [facility] Address: [address] Performed By: #### 1 1475-1, 63-3, 34952-8 #### [facility] CLIA [id number] [address] [place] [address] #### BACPCR #### [facility] CLIA [id number] [address] [place] [address] [place] MCH (RBC) [Entitic mass] 30.4 pg Normal 26.0-34.0 [facility] Comment on above: Order Comment: Speci men Type: BLOOD SPECIMENOrdering Facility: [facility] Address: [address] [place] [address] Performed By: #### 1 1475-1, 63-3, 59090-6 #### [facility] CLIA [id number] [address] [place] [address] #### BACPCR #### [facility] CLIA [id number] [address] [place] MCHC (RBC) [Mass/Vol] 33.9 g/dL Normal 30.5-36.0 [facility] Comment on above: Order Comment: Speci men Type: BLOOD SPECIMENOrdering Facility: [facility] Address: [address] Performed By: #### 1 1475-1, 63-3, 93430-4 #### [facility] CLIA [id number] [address] #### BACPCR #### [facility] CLIA [id number] [address] [place] MCV (RBC) [Entitic vol] 89.6 fL Normal 80.0-100.0 [facility] Comment on above: Order Comment: Speci men Type: BLOOD SPECIMENOrdering Facility: [facility] Address: [address] Performed By: #### 1 1475-1, , 86620-6 #### [facility] CLIA [id number] [address] #### BACPCR #### [facility] CLIA [id number] [facility] [place] Nucleated RBC (Bld) [#/Vol] 10*3/uL Normal <0.01 [facility] Comment on above: Order Comment: Speci men Type: BLOOD SPECIMENOrdering Facility: [facility] Address: [address] [place] [address] Performed By: #### 1 1475-1, , 44656-3 #### [facility] CLIA [id number] [address] #### BACPCR #### [facility] CLIA [id number] [address] [place] [address] [place] Platelet mean volume (Bld) [Entitic vol] 9.7 fL Normal 9.0-12.7 [facility] Comment on above: Order Comment: Speci men Type: BLOOD SPECIMENOrdering Facility: [facility] Address: [address] [place], [place] Performed By: #### 1 1475-1, 63-3, 20187-2 #### [facility] CLIA [id number] [address] [place] #### BACPCR #### [facility] CLIA [id number] [address] [place] [address] [place] Platelets (Bld) [#/Vol] 184 10*3/uL Normal 150-400 [facility] Comment on above: Order Comment: Speci men Type: BLOOD SPECIMENOrdering Facility: [facility] Address: [address] [place] [address] Performed By: #### 1 1475-1, 63-3, 21289-0 #### [facility] CLIA [id number] [address] [place] #### BACPCR #### [facility] CLIA [id number] [address] [place] [address] [place] RBC (Bld) [#/Vol] 2.60 10*6/uL Low 3.90-5.20 [facility] Comment on above: Order Comment: Speci men Type: BLOOD SPECIMENOrdering Facility: [facility] Address: [address] [place] [address] Performed By: #### 1 1475-1, 633, 04851-1 #### [facility] CLIA [id number] [address] [place] #### BACPCR #### [facility] CLIA [id number] [address] [place] [address] [place] WBC (Bld) [#/Vol] 13.68 10*3/uL High 3.70-11.00 [facility] Comment on above: Order Comment: Speci men Type: BLOOD SPECIMENOrdering Facility: [facility] Address: [address] [place] [address] Performed By: #### 1 1475-1, 63-3, 76578-3 #### [facility] CLIA [id number] [address] [place] [address] [place] #### BACPCR #### [facility] CLIA [id number] [address] [address] [place] CONSULTon 10-06-2022 CONSULT HNO ID: [id number] Author: Viktor Jaramillo MD Service: Infectious Disease Author Type: Physician Type: Consults Filed: 10/06/2022 1:17 PM Note Text: INITIAL CONSULT INFECTIOUS DISEASE SERVICE DATE: 10/06/2022 SERVICE TIME: 1030 We were asked to evaluate Ms. Juliette Crews, a 47 year old yo female by Dr. Quinn for chronic decubitus ulcer. Our findings and recommendations will be communicated through the shared medical record. ASSESSMENT: #1-chronic sacral decubitus due to immobility issues and question of infection. Debridement and bone biopsy cultures pending #1-rkyu-neyetuvu infection-certainly based on Gram stain by now and if so this would be osteomyelitis. Await cultures occasionally Gram stain's could be debris. #3-comorbidities of spina bifida, urinary diversion system which she straight caths, #4-allergy to multiple antibiotics--really not allergies as most antibiotics for GI side effects. The Cipro side effect of multiple joint swelling could of course be tendinitis and will probably be avoided although sometimes other quinolones do not cause the same problem. #5-leukocytosis possibly postop reaction and dexamethasone #6-counseling: Discussed issues with patient and her mother RECOMMENDATIONS: -If bone culture starts to grow gold standard is 6 to 8 weeks IV therapy which supposedly she is going home and they would have to learn. However, if this is gram-positive and we can get this set up through her insurance, we might be able to do a dose of dalbavancin here at discharge and another one 7 to 8 days later at an outpatient infusion center which could give 6 to 8 weeks of IV antibiotics without a PICC line and daily administration of other agents. -Plan antibiotics after we see potential culture reports. Subjective SUBJECTIVE: HPI: 47 year old female , immobile from spina bifida, either bedbound or wheelchair-bound, ACCOUNT SERVICES REPRESENTATIVE shunt, lower extremity edema, GERD, independent living patient, presented [facility] 10/[facility]22 for debridement of chronic sacral decubitus (since about December 2021 per her mother), bone biopsy, and eventual flap placement. Mother provides most of the history and the patient occasionally answers. Apparently this ulcer has been there while in spite of various wound center attempts down in [place]. Apparently did not drain pus with a foul odor nor does she have fever or chills. However it was not healing and may have been getting worse recently. Admitted October 05 and underwent surgery where brief op note is available and states procedure was excision of sacral pressure sore and measurements given. Specimens included sacral wound and sacral bone. Antibiotic allergies-none but does have side effects: Diarrhea with azithromycin, Augmentin, cephalexin but has tolerated other cephalosporins before Cipro was joint swelling and it is unknown if she has had of the quinolone since Active Antimicrobials (From admission, onward) None Vancomycin to newly start Immunosuppressants: None known Current other medications reviewed. Current Facility-Administered Medications Medication Dose Route Frequency ascorbic acid (vitamin C) 500 mg tab(s) (VITAMIN C) 500 mg ORAL DAILY budesonide 0.25 mg/2 mL 0.25 mg (PULMICORT) 0.25 mg INHALATION DAILY aspirin 81 mg chewable tab(s) 81 mg ORAL DAILY polyethylene glycol 3350 17 g packet 17 g ORAL DAILY PRN lactulose 30 g CUP 30 g ORAL BID PRN NaCl 0.9% iv flush bag 20 mL INTRAVENOUS PRN keTORolac 15 mg injection (Toradol) 15 mg INTRAVENOUS q 6 H acetaminophen 325 mg tab(s) (TYLENOL) 325 mg ORAL q 6 H PRN oxyCODONE-acetaminophen 5-325 mg 2 tablet (PERCOCET) 2 tablet ORAL q 4 H PRN morphine 2 mg injection 2 mg INTRAVENOUS q 4 H PRN ondansetron 4 mg tab(s) (ZOFRAN) 4 mg ORAL q 6 H PRN Or ondansetron (PF) 4 mg injection (ZOFRAN) 4 mg INTRAVENOUS q [address] 40 mg tab(s) (PROTONIX) 40 mg ORAL DAILY (6 AM) trospium 20 mg tab(s) (SANCTURA) 20 mg ORAL BID AC PARoxetine 40 mg tab(s) (PAXIL) 40 mg ORAL DAILY PAST MEDICAL HISTORY Diagnosis Date Newberry catheter at Hydrocephalus (HCC) Living in assisted living [facility] Paraplegia (HCC) Pressure injury of sacral region, stage 4 (HCC) Self-catheterizes urinary bladder 4X/DAY Spina bifida (HCC) USES COMPRESSION VEST UTI (lower urinary tract infection) Wheelchair dependence PAST SURGICAL HISTORY Procedure Laterality Date PAST SURGICAL HISTORY OF last in 1994 5 shunts placed PAST SURGICAL HISTORY OF 2002 rhonda in right foot AND SINCE BEEN REMOVED PAST SURGICAL HISTORY OF 2005 bladder surgery and cath in belly button PAST SURGICAL HISTORY OF 2012 5 buttock surgeries for pressure ulcer PAST SURGICAL HISTORY OF 2002 rhonda in back PAST SURGICAL HISTORY OF 1977 eye surgery/ [facility] PAST SURGICAL HISTORY OF 2020 [facility] Social History Tobacco Use Smoking status: Never Smokeless tobacco: Never (more content not included)... Normal [facility] CONSULT PROGon 10-06-2022 CONSULT PROG HNO ID: [id number] Author: Edie Stringer RPh Service: Pharmacy Author Type: Pharmacist Type: Consult Progress Note Filed: 10/06/2022 1:33 PM Note Text: PHARMACY VANCOMYCIN DOSING NOTE Patient Name: Juliette Crews Admission Date: 10/05/2022 Date of Consult: 10/06/2022 Time of Consult: 1:16 PM Indication: Bone AND joint infection currently unsure if soft tissue only or actual osteomyelitis of the sacrum Goal Range: 10-20 mcg/mL SSTI or OM (goal depending on SSTI vs OM; SSTI goal recommendation as 10-15; while 15-20 for OM) RECOMMENDATIONS/PLAN: Pharmacy consulted for vancomycin dosing for Juliette Crews, a 47 year old female. 1. Patient is currently ordered Vancomycin 1.25 g IV q12h. Today is day 1 of therapy. Pt received Vanco 1g on 10/05 @ 0824 2. No vancomycin level has been drawn for this dosing regimen. ID on consult- currently unsure if SSTI vs OM Leukocytosis noted, afebrile, tachycardia noted, MAP > 65 No growths seen in current Cx reports Scr trend un-concerning Accumulation risk: obese (BMI 31.35) Will keep 15 mg/kg dosing of actual BW = 68 kg which is ~ Vanco 1g and a q12hr regimen d/t OM not yet ruled out Will give dose now and then have the next dose tomorrow 10/08 @ 0600 in order to have more appropriate Vanco infusion time (0600/1800) Vanco level prior to 4th dose of regimen 10/08 @ 0500 3. Adjusted regimen to Vanco 1 g IV q 12hr 4. The next vancomycin level has been ordered for 10/08 @ 0500 (Completed) We will follow patient renal function, vancomycin levels and doses with you during the course of therapy. Additional recommendations will appear in follow up notes. If you have any questions, please contact Edie Stringer (Pharmacist) at Ext # [phone] Age: [age] year old Allergies: ALLERGIES Allergen Reactions Augmentin [Amoxicil* Diarrhea Cephalexin Diarrhea Ciprofloxacin Other: See Comments joint swelling Clavulanic Acid Diarrhea Zpak [Azithromycin] Diarrhea Albuterol Other: See Comments Makes her anxious Last 3 Encounter Wt Readings: Date: Wt: 09/28/2022 68 kg (150 lb) 09/14/2022 68 kg (150 lb) 08/04/2022 68 kg (150 lb) Last 1 Encounter Ht Readings: Date: Ht: 09/28/2022 147.3 cm (4' 10) CrCl~ 108 mL/min using adj BW 5 kg > of note Ht < 5 ft Temp (24hrs), Av.9 ?C (98.4 ?F), Min:36.3 ?C (97.3 ?F), Max:37.5 ?C (99.5 ?F) - Current Temp: 36.3 ?C (97.3 ?F) Labs BUN (mg/dL) Date Value 10/06/2022 10 09/28/2022 14 03/15/2013 7 (L) Creatinine (mg/dL) Date Value 10/06/2022 0.56 (L) 09/28/2022 0.48 (L) 03/15/2013 0.65 (L) WBC (k/uL) Date Value 10/06/2022 13.68 (H) 09/28/2022 10.31 03/15/2013 9.77 Vancomycin Levels: No results found for: MARILURYLEE Edie Stringer [facility] NUTRITIONon 10-06-2022 NUTRITION HNO ID: [id number] Author: Evelyn Diego RD Service: Nutrition Therapy Author Type: Registered Dietitian Type: Nutrition Filed: 10/06/2022 2:18 PM Note Text: NUTRITION THERAPY INITIAL ASSESSMENT SERVICE DATE: 10/06/2022 SERVICE TIME: 1:00 pm Consult for assessment Nutrition Assessment: Recommended Malnutrition Diagnosis: No Malnutrition Identified Nutrition Diagnosis: Problem: Increased nutrient needs Related to: Chronic illness As evidenced by: Medical condition, Imaging studies (pressure injury) Estimated kilocalorie needs: 1360 - 1700 Calorie Calculation Method: 20-25 kcals/kg Estimated protein needs (grams): 88 - 115 Grams protein determined by: 1.3 - 1.7 g/kg Care Plan: Continue current diet Regular Snacks: Added (crackers/cheese/PB for ) in CBORD. Juliette reports a good appetite. She was eating lunch with her mother in the room. Her mother bought her a chicken salad sandwich from [employer] and she ate all of it. Encouraged protein foods. Monitor and Evaluation: Meet greater than 75% of estimated needs, Monitor bowel function, Monitor labs, I/Os, vital signs, weight Discharge Recommendations: Diet Diet: Regular HPI: Juliette Crews is [facility] a [facility] where she has 24 hr care and an airflow bed. She has a hx of spina bifida, paraplegia, hydrocephalus with ACCOUNT SERVICES REPRESENTATIVE shunt, GERD, anxiety and depression, asthma and DARIO. She had an excision of a sacral pressure injury on 10/05/22. She started vancomycin on 10/05/22. ATB will be adjusted depending on if this is soft tissue infection of actual osteomyelitis of the sacrum. PAST MEDICAL HISTORY Diagnosis Date Newberry catheter at Hydrocephalus ([facility] Living in assisted living [facility] Paraplegia ([facility]) Pressure injury of sacral region, stage 4 ([facility]) Self-catheterizes urinary bladder 4X/DAY Spina bifida ([facility]) USES COMPRESSION VEST UTI (lower urinary tract infection) Wheelchair dependence PAST SURGICAL HISTORY Procedure Laterality Date PAST SURGICAL HISTORY OF last in 1994 5 shunts placed PAST SURGICAL HISTORY OF 2002 rhonda in right foot AND SINCE BEEN REMOVED PAST SURGICAL HISTORY OF 2005 bladder surgery and cath in belly button PAST SURGICAL HISTORY OF 2012 5 buttock surgeries for pressure ulcer PAST SURGICAL HISTORY OF 2002 rhonda in back PAST SURGICAL HISTORY OF 1977 eye surgery/ LAZY EYE PAST SURGICAL HISTORY OF 2020 LKIDNEY STONE Intake History: Nutrition Intake Prior to Admission: Greater than 75% estimated energy needs greater than or equal to 3 months Current Nutrition Intake: Greater than 75% estimated energy needs Current Intake Over time: (1 - 2 days) Diet Orders (From admission, onward) Start Ordered 10/05/22 1500 DIET REGULAR START NOW 10/05/22 1450 Anthropometrics: Height: 147.3 cm (4' 10) Weight: 68 kg (150 lb) Dosing Weight: 68 kg (149 lb 14.6 oz) Usual Weight: 68 kg (149 lb 14.6 oz) 08/04/22 Usual Weight Obtained From: Chart Review Body mass index is 31.35 kg/m?. Weight change percentage over time: no change per Epic records Physical Exam: Subcutaneous fat loss: No fat loss Muscle loss: (She is non- ambulatory so yes she has decreased muscle mass in both her legs but it is not due to malnutrition.) Potential micronutrient deficiency: Skin (pressure injury) Edema/Ascites: Lower extremities Lower Extremity: Mild 1+ GI Symptoms: None Functional Status: Not related to malnutrition status Potential Signs of Inflammation: Chronic condition spina bifida, paraplegia MNT Billing: $ Initial Assessment: 1-15 minutes SIGNATURE: Evelyn Diego RD PATIENT NAME: Juliette Crews DATE: October 06, 2022 TIME: 2:00 PM [id number] [facility] ALLIED HEALTHon 10-05-2022 ALLIED HEALTH HNO ID: [id number] Author: Chaplain Gris Service: Spiritual Care Author Type: Public Health Clinical Nurse Specialist Type: Allied Health Filed: 10/05/2022 7:54 AM Note Text: SPIRITUAL CARE PROGRESS NOTE SERVICE DATE: 10/05/2022 SERVICE TIME: 7:10am As seed packer, visited with patient and loved ones in presurgery area. Listened empathetically and offered emotional and spiritual support. Prayed with patient and loved ones, per request. Informed patient and loved ones of 27/12 spiritual care. To contact the Spiritual Care Department: Please call [phone]. SIGNATURE: Chaplain Gris PATIENT NAME: Juliette Crews DATE: October 05, 2022 TIME: 7:52 AM PAGER/CONTACT #: [phone] [facility] ANES POSTPROC EVALon 023 ANES POSTPROC EVAL HNO ID: [id number] Author: Yamini Tavarez MD Service: Anesthesiology Author Type: Anesthesiologist Type: Anesthesia Postprocedure Evaluation Filed: 10/05/2022 2:41 PM Note Text: POST ANESTHESIA EVALUATION NOTE : 1975 Procedure Summary Date: 10/05/22 Room / Location: [place] Anesthesia Start: 808 Anesthesia Stop: 1118 Procedures: EXCISION PRESSURE ULCER SACRAL PREP FOR MUSCLE/ MYOCUTANEOUS FLAP OR SKIN GRAFT CLOSURE W/ OSTECTOMY (Spine Sacral) ADJACENT TISSUE TRANSFER / REARRANGEMENT BUTTOCKS ADD'L < OR =30 SQCM SQCM / GLUTEAL ROTATION (Spine Sacral) Diagnosis: Pressure injury of sacral region, stage 4 (HCC) (Pressure injury of sacral region, stage 4 (HCC) [L89.154]) Surgeons: Nawaf Quinn MD Responsible Provider: Yamini Tavarez MD Anesthesia Type: general ASA Status: 3 Anesthesia Type: general Airway Type: ETT Last Vitals Vitals Value Taken Time BP 133/105 10/05/22 1415 Temp 37.5 ?C (99.5 ?F) 10/05/22 1400 HR SpO2 105 10/05/22 1419 Resp 23 10/05/22 1419 SpO2 100 % 10/05/22 1419 Vitals shown include unvalidated device data. Post Anesthesia Patient Status Patient Evaluation: PACU. PACU/ICU Patient Condition: stable. Anticipated Disposition: inpatient floor planned admission. Neurological Status: aware and responsive. Pulmonary Status: breathing comfortably on room air Airway Control: returned to baseline unsupported. Cardiovascular Status: stable. Pain Management: clinically adequate Postoperative Hydration: acceptable. Intraoperative Events: no significant anesthesia events Post Operative Nausea/Vomiting Status: no significant post operative nausea or vomiting Recommendation: further care per PACU/ICU/floor team. Anesthesia Observations No Documentation SIGNATURE: Yamini Tavarez MD PATIENT NAME: Juliette Crews DATE: October 05, 2022 TIME: 2:41 PM CSN: [id number] [facility] ANES PRE-OPon 10-05-2022 ANES PRE-OP HNO ID: [id number] Author: Yamini Tavarez MD Service: Anesthesiology Author Type: Anesthesiologist Type: Anesthesia Preprocedure Evaluation Filed: 10/05/2022 7:56 AM Note Text: ANESTHESIOLOGY DAY OF SURGERY NOTE : 1975 Procedure Information Date/Time: 10/05/22 0800 Procedures: EXCISION PRESSURE ULCER SACRAL PREP FOR MUSCLE/ MYOCUTANEOUS FLAP OR SKIN GRAFT CLOSURE W/ OSTECTOMY (Spine Sacral) ADJACENT TISSUE TRANSFER / REARRANGEMENT BUTTOCKS ADD'L < OR =30 SQCM SQCM / GLUTEAL ROTATION (Spine Sacral) Location: [place] OR 05 / [place] Surgeons: Nawaf Quinn MD Estimated body mass index is 31.35 kg/m? as calculated from the following: Height as of 09/28/22: 147.3 cm (4' 10). Weight as of 09/28/22: 68 kg (150 lb). Most recent hematocrit and potassium results: Hematocrit 38.8 09/28/2022 Potassium 4.7 09/28/2022 Relevant Problems GI (+) Gastroesophageal reflux disease - ACCOUNT SERVICES REPRESENTATIVE shunt working well - GERD well controlled - wheelchair bound - sacral decubitus ulcer I - PHYSICAL EVALUATION AIRWAY Patient intubated: No. Tracheostomy tube not present Mallampati: III. TM distance: >3 FB. Neck ROM: full ROM without neurological symptoms. Mouth opening: adequate. Short neck: no. Thick neck: no DENTAL Dental findings: teeth intact. II - ANESTHESIA PLAN ASA Score: 3 Anesthetic Plan: general Airway type: ETT The patient is not a current smoker. NPO Status: adequate Beta Jackie Monitoring Plan Monitoring plan: standard ASA. Post Procedure Analgesic Plan Postoperative analgesic plan: parenteral or oral opioids. Informed Consent Anesthetic risks, benefits, alternatives, personnel and consent discussed: yes. Patient / Responsible Alliance Party agrees to proceed: yes Patient / Surrogate agrees to blood products: blood products not planned Potential Anesthesia issues that may suggest increased risk of complications or contraindication to planned procedure: none. Vitals Value Taken Time BP 140/92 10/05/22 0738 Pulse 106 10/05/22 0738 Resp 18 10/05/22 0738 Temp 36.9 ?C (98.4 ?F) 10/05/22 0738 SpO2 96 % 10/05/22 0738 No current facility-administered medications on file as of 10/05/2022. Outpatient Medications as of 10/05/2022 Medication Sig - polyethylene glycol 3350 17 gram/dose powder Take 17 g by mouth. - potassium citrate ER (UROCIT-K) 10 mEq (1,080 mg) - aspirin 81 mg chewable tablet Take 81 mg by mouth. - budesonide (PULMICORT) 0.25 mg/2 mL nebulizer solution Inhale as instructed. - metoprolol tartrate, short acting, (LOPRESSOR) 25 mg tablet Take 25 mg by mouth. - Multivitamins chew Take by mouth. - PARoxetine 20 mg tablet Take 1 tablet by mouth once daily. - oxybutynin ER (DITROPAN XL) 15 mg 24 hr Extended Rel Tab Take 1 tablet by mouth once daily. - CONSTULOSE 10 gram/15 mL solution - omeprazole (PRILOSEC) 20 mg capsule - amino acids-protein hydrolys (PRO-STAT AWC) 17-100 gram-kcal/30 mL liqd Take 30 fluid ounces by mouth as directed. - Calcium Carbonate 1,000 mg Tab Take by mouth. - ascorbic acid, vitamin C, (VITAMIN C) 500 mg tablet Take 500 mg by mouth once daily. I have interviewed and examined the patient. I have reviewed the medical record and/or the pre-anesthesia evaluation, pertinent labs, and test results. This contains updated information obtained within 48 hours of Surgery/Procedure. SIGNATURE: Yamini Tavarez MD PATIENT NAME: Juliette Crews DATE: October 05, 2022 TIME: 7:54 AM CSN: [id number] [facility] BRIEF OP NOTon 10-05-2022 BRIEF OP NOT HNO ID: [id number] Author: Nawaf Quinn MD Service: Plastic Surgery Author Type: Physician Type: Brief Op Note Filed: 10/05/2022 11:45 AM Note Text: BRIEF OPERATIVE / PROCEDURE NOTE LOG ID: [id number] SURGERY/PROCEDURE DATE: 10/05/2022 INCISION/PROCEDURE START TIME: 8:35 AM INCISION CLOSE/PROCEDURE END TIME: 10:51 AM SURGEON(S)/PROCEDURALIST(S ) AND CASER(S): Surgeon(s) and Role: * Nawaf Quinn MD - Primary * Michael Deleon MD - Resident - Assisting Mold Sheet Cleaner: Brenda Leong SA SURGERY/PROCEDURE(S): 1. Excision sacral pressure sore [id number] 2. ATT 31c65in ANESTHESIA: General FINDINGS: see dictation ESTIMATED BLOOD LOSS: 1000 mls SPECIMENS: sacral bone, sacral wound COMPLICATIONS: None DRAINS: Modified CLOSURE TECHNIQUE: Non-primary PRE-OP/PRE-PROCEDURE DIAGNOSIS: sacral pressure sore POST-OP/POST-PROCEDURE DIAGNOSIS: Same as Preop SIGNATURE: Nawaf Quinn MD PATIENT NAME: Juliette Crews DATE: October 05, 2022 TIME: 11:44 AM Normal [facility] Bacteria Spec Anaerobe Culto n 10-05-2022 Bacteria identified Anaer cx Nom (Unsp spec) Negative Normal [facility] Comment on above: Performed By: #### 1 1475-1, 635-3, 25249-7 #### [facility] CLIA [id number] [address] [place] [address] #### BACPCR #### [facility] CLIA [id number] [address] [place] [address] [place] Bacteria identified Anaer cx Nom (Unsp spec) Negative Normal [facility] Comment on above: Performed By: #### 1 1475-1, 95607-8, 635-3 #### [facility] CLIA [id number] [address] [place] [address] [place] Bacteria Tiss Culton 023 Bacteria identified Cx Nom (Tiss) CULTURE, TISSUE: No growth 5 days GRAM STAIN: No cells or organisms seen PLEASE NOTE CORRECTED GRAM STAIN. PREVIOULSY REPORTED MODERATE GRAM POSITIVE COCCI Normal [facility] Comment on above: Performed By: #### 1 1475-1, 635-3, 99321-8 #### [facility] CLIA [id number] [address] [place] #### BACPCR #### [facility] CLIA [id number] [address] [place] [address] [place] Bacteria identified Cx Nom (Tiss) CULTURE, TISSUE: No growth GRAM STAIN: No cells or organisms seen Normal [facility] Comment on above: Performed By: #### 1 1475-1, 33820-6, 635-3 #### [facility] CLIA [id number] [address] CONFIRM BLOOD TYPEon 023 ABO A Normal [facility] Comment on above: Order Comment: Speci men Type: BLOOD SPECIMENOrdering Facility: [facility] Address: [address] [place] [address] Performed By: #### 1 1475-1, 635-3, 30794-3 #### [facility] CLIA [id number] [address] #### BACPCR #### [facility] CLIA [id number] [address] [place] [address] [place] Rh Nom (Bld) Positive Normal [facility] Comment on above: Order Comment: Speci men Type: BLOOD SPECIMENOrdering Facility: [facility] Address: [address] [place] [address] Performed By: #### 1 1475-1, 635-3, 13818-2 #### [facility] CLIA [id number] [address] #### BACPCR #### [facility] CLIA [id number] [address] [place] HISTORY PHYSICALon HISTORY PHYSICAL HNO ID: [id number] Author: Shell Ruth PA-C Service: Plastic Surgery Author Type: Physician Gear Setter Type: HANDP Filed: 10/05/2022 7:55 AM Note Text: UPDATED HISTORY AND PHYSICAL EXAMINATION SERVICE DATE: 10/05/2022 SERVICE TIME: 7:54 AM PHYSICAL EXAM MUST BE COMPLETED ON ADMISSION The History and Physical (completed in the past 30 days) has been reviewed and the patient has been examined. The contents accurately reflect the patient's condition with the following additions or revisions since the HANDP was completed. Examination indicates no changes. This HANDP can be found in the Electronic Medical Record dated 09/27/22. SIGNATURE: Shell Ruth PA-C PATIENT NAME: Juliette Crews DATE: October 05, 2022 TIME: 7:54 AM Normal [facility] Microorganism Spec Culton Microorganism identified Cx Nom (Unsp spec) CULTURE, FUNGAL: No Fungus isolated after 28 days FUNGAL SMEAR: No fungus seen Normal [facility] Comment on above: Performed By: #### 1 1475-1, 635-3, 32917-8 #### [facility] CLIA [id number] [address] [place] #### BACPCR #### [facility] CLIA [id number] [address] [place] [address] [place] Microorganism identified Cx Nom (Unsp spec) CULTURE, AFB: No Acid Fast Bacilli isolated after 42 days AFB STAIN: No acid fast bacilli seen by flurochrome stain [facility] Comment on above: Performed By: #### 1 1475-1, 635-3, 46550-6 #### [facility] CLIA [id number] [address] [place] #### BACPCR #### [facility] CLIA [id number] [address] [place] [address] [place] Microorganism identified Cx Nom (Unsp spec) CULTURE, FUNGAL: No Fungus isolated after 28 days FUNGAL SMEAR: No fungus seen [facility] Comment on above: Performed By: #### 1 1475-1, 94774-5, 635-3 #### [facility] CLIA [id number] [address] [place] Microorganism identified Cx Nom (Unsp spec) CULTURE, AFB: No Acid Fast Bacilli isolated after 42 days AFB STAIN: No acid fast bacilli seen by flurochrome stain [facility] Comment on above: Performed By: #### 1 1475-1, 78766-5, 635-3 #### [id number] [address] OF [facility] OPERATIVE NOon 10-05-2022 OPERATIVE NO HNO ID: [id number] Author: Nawaf Quinn MD Service: Plastic Surgery Author Type: Physician Type: Operative Report Filed: 10/11/2022 11:39 AM Note Text: OPERATIVE / PROCEDURE NOTE LOG ID: [id number] SURGERY/PROCEDURE DATE: 10/05/2022 INCISION/PROCEDURE START TIME: 8:35 AM INCISION CLOSE/PROCEDURE END TIME: 10:51 AM SURGEON(S)/PROCEDURALIST(S ) AND CASER(S): Surgeon(s) and Role: * Nawaf Quinn MD - Primary * Michael Deleon MD - Resident - Assisting Mold Sheet Cleaner: Brenda Leong SA SURGERY/PROCEDURE(S): 1. Excision sacral pressure sore [id number] 2. ATT 02d06lu ANESTHESIA: General FINDINGS: see dictation ESTIMATED BLOOD LOSS: 1000 mls SPECIMENS: sacral bone, sacral wound COMPLICATIONS: None DRAINS: Modified CLOSURE TECHNIQUE: Non-primary PRE-OP/PRE-PROCEDURE DIAGNOSIS: sacral pressure sore POST-OP/POST-PROCEDURE DIAGNOSIS: Same as Preop SIGNATURE: Nawaf Quinn MD PATIENT NAME: Juliette Crews DATE: October 05, 2022 TIME: 11:44 AM Indications for the procedure: This is a 47-year-old female with a longstanding sacral pressure sore. She was seen in the office and we discussed performing the above procedures. A written informed consent was obtained from her POA. All the risk were reviewed prior to taking her back to the operating room including but not limited to infection, bleeding, damage surrounding structures, delayed wound healing, and partial or complete flap loss as well as recurrence of the pressure sore. A preoperative huddle was performed prior to taken back to the operating room. Description of procedure: Patient was brought back to the operating room. SCDs were on and running prior to induction of general anesthesia. She received appropriate perioperative antibiotics. Induction was performed on the bed and the patient was placed in the prone position ensuring adequate padding of all pressure points and nerves. A timeout was performed with 2 patient identifiers. The skin was prepped with alcohol and then a mixture of lidocaine with epinephrine and Marcaine were injected circumferentially. The patient was then prepped and draped to allow for maximal hemostatic and anesthetic effect. We began the procedure by incising the skin and bursa using a 15 blade and then performing additional dissection using electrocautery. Dissection was carried circumferentially ensuring that all the bursa was removed. This was taken down to the bone. The wound itself was sent off for culture as well as for final pathology. We then proceeded with excising sacral bone using a combination of rongeurs and osteotomes. During this dissection, the sacral venous plexus on the left side was injured. The incision was extended and additional portions of the sacrum and pelvis removed to try to achieve adequate access. In order to ensure that the patient did not become unstable, pressure was held and a type and screen sent and blood ordered. After ensuring that the patient was stable and in no danger, we proceeded with achieving hemostasis using a combination of electrocautery, bone wax, Surgicel, and Alena. The wound was inspected for 15 minutes and hemostasis was verified. We then proceeded with elevating a right gluteal tissue advancement. A backcut was made in the previously placed reconstruction scar. The leading edge of the adjacent tissue was de-epithelialized and a backcut made in this as well. The total area of the adjacent tissue transfer was 20 x 15 cm. The leading edge of de-epithelialized tissue was then sutured into the deeper portion of the wound to allow for additional bony coverage. This was done using a 2-0 Vicryl. A 19 Kyrgyz drain was placed prior to definitive closure. We then proceeded with a layered closure of the adjacent tissue using 2-0 Vicryl for the superficial fascial layer followed by a 3-0 Vicryl for the deep dermal and finally a 3-0 nylon and binta for the skin. Exofin will be applied to the incision. The patient will be placed back in the supine position and she would be extubated uneventfully. She received 2 units of blood following the procedure and was admitted for observation as well as to await for definitive cultures. The patient will be transferred to the PACU in stable condition. I was present for the entire procedure. Normal [facility] SURGICAL PATHOLOGYon 023 CASE REPORT Normal [facility] Comment on above: Order Comment: Speci men Type: TISSUE SPECIMENOrdering Facility: [facility] Address: [address] [place] [address] [place] [address] Result Comment: Surg [facility] Pathology Report Case: [id number] Authorizing Provider: Nawaf Quinn MD Collected: 10/05/2022 08:53 AM Ordering Location: [facility] Received: 10/05/2022 01:06 PM Pathologist: Karly Berumen MD Specimen: SOFT TISSUE, sacral wound for permanent Performed By: #### 1 1475-1, 635-3, 45516-3 #### [facility] CLIA [id number] [address] [place] [address] [place] [facility] #### BACPCR #### [facility] CLIA [id number] [address] [place] [address] [place] CLINICAL HISTORY Normal [facility] Comment on above: Order Comment: Speci men Type: TISSUE SPECIMENOrdering Facility: [facility] Address: [address] [address] Result Comment: Pre- op diagnosis: Pressure injury of sacral region, stage 4 (HCC) [L89.154] Performed By: #### 1 1475-1, 635-3, 58343-3 #### [facility] CLIA [id number] [address] [place] [address] [place] [facility] #### BACPCR #### [facility] CLIA [id number] [address] [place] [address] [place] FINAL DIAGNOSIS Normal [facility] Comment on above: Order Comment: Speci men Type: TISSUE SPECIMENOrdering Facility: [facility] Address: [address] [address] Result Comment: A. S acral wound, excision: -- Skin and underlying subcutaneous tissue with ulceration, fibrinoid necrosis, fibrosis and chronic inflammation. Performed By: #### 1 1475-1, 635-3, 92406-6 #### [facility] CL[facility] [id number] [address] [place] #### BACPCR #### [facility] CLIA [id number] [address] FINAL PERFORMING LAB [facility] Comment on above: Order Comment: Speci men Type: TISSUE SPECIMENOrdering Facility: [facility] Address: [address] [place] [address] Result Comment: Diag nostic interpretation performed at [facility] [place], [address] [place] [address] CLIA# [id number] Scrip Clerk: Cecil Sainz M.D. Performed By: #### 1 1475-1, 635-3, 66168-5 #### [facility] CLIA [id number] [address] [place] [address] #### BACPCR #### [facility] CLIA [id number] [address] [place] [address] GROSS DESCRIPTION A. SOFT TISSUE Normal [facility] Comment on above: Order Comment: Speci men Type: TISSUE SPECIMENOrdering Facility: [facility] Address: [address] [place] [address] Result Comment: A. R eceived in formalin labeled sacral wound is an unoriented segment of lentz-pink slightly firm and fibrous tissue measuring 5.7 x 3.6 x 4.3 cm. One surface displays an irregular segment of skin measuring 3.7 x 2.8 cm. The skin surface displays a depressed ulcerated appearing area measuring 2.9 x 1.0 cm. Upon sectioning the specimen displays a white fibrous cut surface. Production Operations Engineer sections are submitted in formalin in 2 cassettes. Gross examination performed at [facility] [place], [address] [place] [address] KVB October 05, 2022 1:33 PM Performed By: #### 1 1475-1, 635-3, 55658-3 #### [facility] CLIA [id number] [address] [place] [address] #### BACPCR #### [facility] CLIA [id number] [address] [place] [address] [place] TYPE + SCREENon 10-05-2022 ABO A Normal [facility] Comment on above: Order Comment: Speci men Type: BLOOD SPECIMENOrdering Facility: [facility] Address: [address] [place] [address] Performed By: #### 1 1475-1, 635-3, 12808-1 #### [facility] CLIA [id number] 1 [place] [address] [place] #### BACPCR #### [facility] CLIA [id number] [address] [place] [address] [place] HISTORICAL AB SCR STATUS Negative Normal [facility] Comment on above: Order Comment: Speci men Type: BLOOD SPECIMENOrdering Facility: [facility] Address: [address] [place] [address] Performed By: #### 1 1475-1, 635-3, 75376-0 #### [facility] CLIA [id number] [address] [place] #### BACPCR #### [facility] CLIA [id number] [address] [place] [address] [place] Rh Nom (Bld) Positive Normal [facility] Comment on above: Order Comment: Speci men Type: BLOOD SPECIMENOrdering Facility: [facility] Address: [address] [place], [place] [address] Performed By: #### 1 1475-1, 635-3, 41748-5 #### [facility] CLIA [id number] 1 [place] [address] [place] #### BACPCR #### [facility] CLIA [id number] [address] [place] [address] [place] TYPE AND SCREEN EXPIRATION 10/08/2022 23:59 Normal [facility] Comment on above: Order Comment: Speci men Type: BLOOD SPECIMENOrdering Facility: [facility] Address: [address] [address] Performed By: #### 1 1475-1, 635-3, 34681-4 #### [facility] CLIA [id number] 1 [place] [address] [place] #### BACPCR #### [facility] CLIA [id number] [address] [place] UNIVERSAL BACTERIAL PCRon Bacteria identified based on 16S rRNA gene Sequencing Nom (Unsp spec) Mixed Sequences Detected by 16S rDNA gene sequencing. Unable to identify the bacterial DNA in the sample Abnormal [facility] Comment on above: Order Comment: Speci men Type: SPECIMEN FROM BONE [facility] Address: [address] [place] [address] Performed By: #### 1 1475-1, 635-3, 84144-4 #### [facility] CLIA [id number] [address] [place] [address] [place] #### BACPCR #### [facility] CLIA [id number] [address] [place] [address] [place] Bacteria identified based on 16S rRNA gene Sequencing Nom (Unsp spec) Detected Normal [facility] Comment on above: Order Comment: Speci men Type: TISSUE SPECIMENOrdering Facility: [facility] Address: [address] [address] Performed By: #### 1 1475-1, 635-3, 56003-4 #### [facility] CLIA [id number] [address] [place] #### BACPCR #### [facility] CLIA [id number] [address] [place] Carlos 10-04-2022 VANESSAN Telephone (PLHWBA) -- JULIETTE CREWS ([id number]) 1975 F Date Time Provider Department 10/04/22 NAWAF QUINN During your visit today, we recorded the following information about you: Oralia Burnett MA 10/04/2022 3:[address] Quinn, Patient had labs faxed over with abnormalities. Patient is scheduled on 10/05/22 for Excision Pressure Ulcer , Sacral. DEUCE: <0.2 Creatine 0.48 Platelet 412 Oralia Burnett MA Allergies As of Date: 10/04/2022 Noted Allergy Reaction AUGMENTIN (AMOXICILLIN-POT CLAVUL*02/14/2013 6 - Diarrhea CEPHALEXIN 07/06/2017 6 - Diarrhea CIPROFLOXACIN 02/14/2013 14 - Other: See Comments Comments: joint swelling CLAVULANIC ACID 10/18/2018 6 - Diarrhea ZPAK (AZITHROMYCIN) 02/14/2013 6 - Diarrhea ALBUTEROL 09/24/2022 14 - Other: See Comments Date Reviewed: 09/28/2022 Reviewed by: Mayi Grimes APRN.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 - Fully Assessed Reason for Visit: Patient Update [1234] Cmt: Abnormal Labs Prescriptions as of 10/06/2022 - polyethylene glycol 3350 17 gram/dose powder Take 17 g by mouth as needed. - potassium citrate ER (UROCIT-K) 10 mEq (1,080 mg) - CONSTULOSE 10 gram/15 mL solution Take 30 g by mouth twice daily as needed. - calcium polycarbophil (FIBER-CAPS, CA POLYCARBOPHIL, ORAL) Take 2 tablets by mouth once daily. - aspirin 81 mg chewable tablet Take 81 mg by mouth. - omeprazole (PRILOSEC) 20 mg capsule - loratadine 10 mg cap Take by mouth once daily. - budesonide (PULMICORT) 0.25 mg/2 mL nebulizer solution Inhale as instructed. - metoprolol tartrate, short acting, (LOPRESSOR) 25 mg tablet Take 25 mg by mouth. - amino acids-protein hydrolys (PRO-STAT AWC) 17-100 gram-kcal/30 mL liqd Take 30 fluid ounces by mouth as directed. - Calcium Carbonate 1,000 mg Tab Take by mouth. - ascorbic acid, vitamin C, (VITAMIN C) 500 mg tablet Take 500 mg by mouth once daily. - Multivitamins chew Take by mouth. - PARoxetine 20 mg tablet Take 1 tablet by mouth once daily. - oxybutynin ER (DITROPAN XL) 15 mg 24 hr Extended Rel Tab Take 1 tablet by mouth once daily. Facility-Administered Medications as of 10/06/2022 - ascorbic acid (vitamin C) 500 mg tab(s) (VITAMIN C) - budesonide 0.25 mg/2 mL 0.25 mg (PULMICORT) - aspirin 81 mg chewable tab(s) - polyethylene glycol 3350 17 g packet - lactulose 30 g CUP - NaCl 0.9% iv flush bag - keTORolac 15 mg injection (Toradol) - acetaminophen 325 mg tab(s) (TYLENOL) - oxyCODONE-acetaminophen 5-325 mg 2 tablet (PERCOCET) - morphine 2 mg injection - ondansetron 4 mg tab(s) (ZOFRAN) - ondansetron (PF) 4 mg injection (ZOFRAN) - pantoprazole DR 40 mg tab(s) (PROTONIX) - trospium 20 mg tab(s) (SANCTURA) - PARoxetine 40 mg tab(s) (PAXIL) Problem List As Of Date 10/04/2022 Noted Resolved S/P ACCOUNT SERVICES REPRESENTATIVE shunt [Z98.2] 03/12/2013 Hydrocephalus [G91.9] 03/12/2013 Edema of lower extremity [R60.0] 09/28/2022 Gastroesophageal reflux disease [K21.9] 10/12/2021 Encounter Status:Closed by ORALIA BURNETT on 10/06/22 Normal [facility] Bilirub Conj SerPl-mCncon Bilirubin.conjugated [Mass/Vol] mg/dL Normal <0.2 [facility] Comment on above: Order Comment: Speci men Type: BLOOD SPECIMENOrdering Facility: [facility] Address: [address] [place], [place] [address] [address] Performed By: #### 1 1475-1, 62593-8, 635-3 #### [facility] CLIA [id number] [address] CBC W Auto Differential pane l (Bld)on 09-28-2022 Basophils (Bld) [#/Vol] 0.06 10*3/uL Normal <0.11 [facility] Comment on above: Order Comment: Speci men Type: BLOOD SPECIMENOrdering Facility: [facility] Address: [address] [address] Performed By: #### 1 1475-1, 63-3, 21207-3 #### [facility] CLIA [id number] [address] [place] [address] #### BACPCR #### [facility] CLIA [id number] [address] [place] [address] Basophils/100 WBC (Bld) 0.6 % Normal [facility] Comment on above: Order Comment: Speci men Type: BLOOD SPECIMENOrdering Facility: [facility] Address: [address] [address] Performed By: #### 1 1475-1, 63-3, 64606-7 #### [facility] CLIA [id number] [address] [place] [address] #### BACPCR #### [facility] CLIA [id number] [address] [place] [address] [place] Differential cell count method Nom (Bld) Auto Normal [facility] Comment on above: Order Comment: Speci men Type: BLOOD SPECIMENOrdering Facility: [facility] Address: [address] Performed By: #### 1 1475-1, 635-3, 91987-2 #### [facility] CLIA [id number] [address] [place] [address] [place] #### BACPCR #### [facility] CLIA [id number] [address] [place] [address] [place] Eosinophils (Bld) [#/Vol] 0.26 10*3/uL Normal <0.46 [facility] Comment on above: Order Comment: Speci men Type: BLOOD SPECIMENOrdering Facility: [facility] Address: [address] [address] Performed By: #### 1 1475-1, 635-3, 60125-6 #### [facility] CLIA [id number] [address] [place] #### BACPCR #### [facility] CLIA [id number] [address] [place] [address] [place] Eosinophils/100 WBC (Bld) 2.5 % Normal [facility] Comment on above: Order Comment: Speci men Type: BLOOD SPECIMENOrdering Facility: [facility] Address: [address] [place] [address] Performed By: #### 1 1475-, 63-3, 42671-0 #### [facility] CLIA [id number] [address] [place] #### BACPCR #### [facility] CLIA [id number] [address] [place] [address] [place] Erythrocyte distribution width (RBC) [Ratio] 15.0 % Normal 11.5-15.0 [facility] Comment on above: Order Comment: Speci men Type: BLOOD SPECIMENOrdering Facility: [facility] Address: [address] [place] [address] Performed By: #### 1 1475-1, 63-3, 07013-2 #### [facility] CLIA [id number] [address] [place] #### BACPCR #### [facility] CLIA [id number] [address] [place] [address] [place] Hematocrit (Bld) [Volume fraction] 38.8 % Normal 36.0-46.0 [facility] Comment on above: Order Comment: Speci men Type: BLOOD SPECIMENOrdering Facility: [facility] Address: [address] [address] Performed By: #### 1 1475-1, 635-3, 30255-1 #### [facility] CLIA [id number] [address] [place] #### BACPCR #### [facility] CLIA [id number] [address] [place] [address] [place] Hemoglobin (Bld) [Mass/Vol] 12.1 g/dL Normal 11.5-15.5 [facility] Comment on above: Order Comment: Speci men Type: BLOOD SPECIMENOrdering Facility: [facility] Address: [address] Performed By: #### 1 1475-, 63-3, 79940-1 #### [facility] CLIA [id number] [address] [place] #### BACPCR #### [facility] CLIA [id number] [address] [place] [address] [place] Immature granulocytes (Bld) [#/Vol] 10*3/uL Normal <0.10 [facility] Comment on above: Order Comment: Speci men Type: BLOOD SPECIMENOrdering Facility: [facility] Address: [address] Performed By: #### 1 1475-1, 63-3, 02503-1 #### [facility] CLIA [id number] [address] [place] #### BACPCR #### [facility] CLIA [id number] [facility] [place] Immature granulocytes/100 WBC (Bld) 0.2 % Normal [facility] Comment on above: Order Comment: Speci men Type: BLOOD SPECIMENOrdering Facility: [facility] Address: [address] [place] [address] Performed By: #### 1 1475-1, 635-3, 50496-3 #### [facility] CLIA [id number] 1 [place] [address] [place] #### BACPCR #### [facility] CLIA [id number] [address] [place] [address] [place] Lymphocytes (Bld) [#/Vol] 2.64 10*3/uL Normal 1.00-4.00 [facility] Comment on above: Order Comment: Speci men Type: BLOOD SPECIMENOrdering Facility: [facility] Address: [address] [place] [address] Performed By: #### 1 1475-1, 63-3, 99342-0 #### [facility] CLIA [id number] 1 [place] [address] [place] #### BACPCR #### [facility] CLIA [id number] [address] [place] [address] [place] Lymphocytes/100 WBC (Bld) 25.6 % Normal [facility] Comment on above: Order Comment: Speci men Type: BLOOD SPECIMENOrdering Facility: [facility] Address: [address] [place], [place] [address] Performed By: #### 1 1475-1, 635-3, 21101-9 #### [facility] CLIA [id number] 1 [place] [address] [place] #### BACPCR #### [facility] CLIA [id number] [facility] [place] [address] [place] MCH (RBC) [Entitic mass] 29.2 pg Normal 26.0-34.0 [facility] Comment on above: Order Comment: Speci men Type: BLOOD SPECIMENOrdering Facility: [facility] Address: [address] [address] Performed By: #### 1 1475-1, 63-3, 74331-2 #### [facility] CLIA [id number] [address] #### BACPCR #### [facility] CLIA [id number] [address] [place] [address] [place] MCHC (RBC) [Mass/Vol] 31.2 g/dL Normal 30.5-36.0 [facility] Comment on above: Order Comment: Speci men Type: BLOOD SPECIMENOrdering Facility: [facility] Address: [address] [address] Performed By: #### 1 1475, , 74829-8 #### [facility] CLIA [id number] [address] [place] [address] #### BACPCR #### [facility] CLIA [id number] [address] [place] [address] [place] MCV (RBC) [Entitic vol] 93.5 fL Normal 80.0-100.0 [facility] Comment on above: Order Comment: Speci men Type: BLOOD SPECIMENOrdering Facility: [facility] Address: [address] Performed By: #### 1 1475-1, 63-3, 20359-8 #### [facility] CLIA [id number] [address] [place] #### BACPCR #### [facility] CLIA [id number] [facility] [place] [address] [place] Monocytes (Bld) [#/Vol] 0.50 10*3/uL Normal <0.87 [facility] Comment on above: Order Comment: Speci men Type: BLOOD SPECIMENOrdering Facility: [facility] Address: [address] Performed By: #### 1 1475-1, 63-3, 53758-3 #### [facility] CLIA [id number] 1 [place] [address] [place] #### BACPCR #### [facility] CLIA [id number] [address] [place] Monocytes/100 WBC (Bld) 4.8 % Normal [facility] Comment on above: Order Comment: Speci men Type: BLOOD SPECIMENOrdering Facility: [facility] Address: [address] Performed By: #### 1 1475-, 6310-06, 28108-7 #### [facility] CLIA [id number] [address] [place] [address] #### BACPCR #### [facility] CLIA [id number] [address] [place] [address] [place] Neutrophils (Bld) [#/Vol] 6.83 10*3/uL Normal 1.45-7.50 [facility] Comment on above: Order Comment: Speci men Type: BLOOD SPECIMENOrdering Facility: [facility] Address: [address] Performed By: #### 1 1475-, 6310-06, 86944-4 #### [facility] CLIA [id number] [address] [place] [address] [place] #### BACPCR #### [facility] CLIA [id number] [address] [place] [address] [place] Neutrophils/100 WBC (Bld) 66.3 % Normal [facility] Comment on above: Order Comment: Speci men Type: BLOOD SPECIMENOrdering Facility: [facility] Address: [address] [place] [address] Performed By: #### 1 1475-1, 633, 22617-8 #### [facility] CLIA [id number] [address] #### BACPCR #### [facility] CLIA [id number] [address] Nucleated RBC (Bld) [#/Vol] 10*3/uL Normal <0.01 [facility] Comment on above: Order Comment: Speci men Type: BLOOD SPECIMENOrdering Facility: [facility] Address: [address] [address] Performed By: #### 1 1475, , 32720-6 #### [facility] CLIA [id number] [address] #### BACPCR #### [facility] CLIA [id number] [address] [place] [address] [place] [facility] Nucleated RBC/100 WBC (Bld) [Ratio] 0.0 /100 WBC Normal [facility] Comment on above: Order Comment: Speci men Type: BLOOD SPECIMENOrdering Facility: [facility] Address: [address] [address] Performed By: #### 1 1475, , 52435-6 #### [facility] CLIA [id number] [address] #### BACPCR #### [facility] CLIA [id number] [facility] STATES [facility] Platelet mean volume (Bld) [Entitic vol] 9.9 fL Normal 9.0-12.7 [facility] Comment on above: Order Comment: Speci men Type: BLOOD SPECIMENOrdering Facility: [facility] Address: [address] [address] Performed By: #### 1 1475-1, 63-3, 36526-6 #### [facility] CLIA [id number] [address] [place] #### BACPCR #### [facility] CLIA [id number] [address] [place] [address] [place] Platelets (Bld) [#/Vol] 412 10*3/uL High 150-400 [facility] Comment on above: Order Comment: Speci men Type: BLOOD SPECIMENOrdering Facility: [facility] Address: [address] [address] Performed By: #### 1 1475-1, 635-3, 04969-6 #### [facility] CLIA [id number] [address] #### BACPCR #### [facility] CLIA [id number] [address] [place] [address] [place] RBC (Bld) [#/Vol] 4.15 10*6/uL Normal 3.90-5.20 [facility] Comment on above: Order Comment: Speci men Type: BLOOD SPECIMENOrdering Facility: [facility] Address: [address] [place] [address] Performed By: #### 1 1475-1, 63-3, 47576-6 #### [facility] CLIA [id number] [address] [place] #### BACPCR #### [facility] CLIA [id number] [address] [place] [address] [place] WBC (Bld) [#/Vol] 10.31 10*3/uL Normal 3.70-11.00 [facility] Comment on above: Order Comment: Speci men Type: BLOOD SPECIMENOrdering Facility: [facility] Address: [address] [address] Performed By: #### 1 1475-1, 63-3, 83019-3 #### [facility] CLIA [id number] [address] #### BACPCR #### [facility] CLIA [id number] [address] [facility] [id number] Comprehensive metabolic 2000 panelon 09-28-2022 Albumin [Mass/Vol] 4.0 g/dL Normal 3.9-4.9 [facility] Comment on above: Order Comment: Speci men Type: BLOOD SPECIMENOrdering Facility: [facility] Address: [address] [address] Performed By: #### 1 1475-1, 97445-7, 635-3 #### [facility] CLIA [id number] [address] ALP [Catalytic activity/Vol] 104 U/L Normal 34-123 [facility] Comment on above: Order Comment: Speci men Type: BLOOD SPECIMENOrdering Facility: [facility] Address: [address] [address] Performed By: #### 1 1475-1, 67436-4, 635-3 #### [facility] CLIA [id number] [address] ALT With P-5'-P [Catalytic activity/Vol] 17 U/L Normal 7-38 [facility] Comment on above: Order Comment: Speci men Type: BLOOD SPECIMENOrdering Facility: [facility] Address: [address] [address] Performed By: #### 1 1475-1, 07167-8, 635-3 #### [facility] CLIA [id number] [address] Anion gap [Moles/Vol] 11 mmol/L Normal 9-18 [facility] Comment on above: Order Comment: Speci men Type: BLOOD SPECIMENOrdering Facility: [facility] Address: [address] [address] Performed By: #### 1 1475-1, 14924-2, 635-3 #### [facility] CLIA [id number] 1 [place] [address] [place] AST With P-5'-P [Catalytic activity/Vol] 15 U/L Normal 13-35 [facility] Comment on above: Order Comment: Speci men Type: BLOOD SPECIMENOrdering Facility: [facility] Address: [address] [place] [address] Performed By: #### 1 1475-1, 38335-4, 635-3 #### [facility] CLIA [id number] [address] [place] Bilirubin [Mass/Vol] mg/dL Low 0.2-1.3 [facility] Comment on above: Order Comment: Speci men Type: BLOOD SPECIMENOrdering Facility: [facility] Address: [address] [place] [address] Performed By: #### 1 1475-1, 85181-5, 94-3 #### [facility] CLIA [id number] 1 [place] [address] [place] Calcium [Mass/Vol] 10.1 mg/dL Normal 8.5-10.2 [facility] Comment on above: Order Comment: Speci men Type: BLOOD SPECIMENOrdering Facility: [facility] Address: [address] [place] [address] Performed By: #### 1 1475-1, 24058-2, 635-3 #### [facility] CLIA [id number] 1 [place] [address] [place] Chloride [Moles/Vol] 100 mmol/L Normal 97-105 [facility] Comment on above: Order Comment: Speci men Type: BLOOD SPECIMENOrdering Facility: [facility] Address: [address] [place] [address] Performed By: #### 1 1475-1, 95720-1, 635-3 #### [facility] CLIA [id number] 1 [place] [address] [place] CO2 [Moles/Vol] 28 mmol/L Normal 22-30 [facility] Comment on above: Order Comment: Speci men Type: BLOOD SPECIMENOrdering Facility: [facility] Address: [address] [place] [address] Performed By: #### 1 1475-1, 31429-2, 635-3 #### [facility] CLIA [id number] [address] [place] Creatinine [Mass/Vol] 0.48 mg/dL Low 0.58-0.96 [facility] Comment on above: Order Comment: Speci men Type: BLOOD SPECIMENOrdering Facility: [facility] Address: [address] [place] [address] Performed By: #### 1 1475-1, 06486-1, 635-3 #### [facility] CLIA [id number] [address] OF [facility] ESTIMATED GLOMERULAR FILTRATION RATE 118 mL/min/1.73m??? Normal >=60 [facility] Comment on above: Order Comment: Speci men Type: BLOOD SPECIMENOrdering Facility: [facility] Address: [address] [place] [address] Result Comment: Priya mated Glomerular Filtration Rate (eGFR) is calculated using the 2020 CKD-EPI creatinine equation. This equation utilizes serum creatinine, sex, and age as parameters. The creatinine assay has traceable calibration to isotope dilution-mass spectrometry. Refer to KDIGO guidelines for clinical interpretation. In patients with unstable renal function, e.g. those with acute kidney injury, the eGFR may not accurately reflect actual GFR. Performed By: #### 1 1475-1, 06387-6, 635-3 #### [facility] CLIA [id number] [address] [place] Glucose [Mass/Vol] 90 mg/dL Normal 74-99 [facility] Comment on above: Order Comment: Speci men Type: BLOOD SPECIMENOrdering Facility: [facility] Address: [address] [place] [address] Result Comment: The [place] Diabetes Association (ADA) provides guidance for cutoff values for fasting glucose and random glucose. The ADA defines fasting as no caloric intake for at least 8 hours. Fasting plasma glucose results between 100 to 125 mg/dL indicate increased risk for diabetes (prediabetes). Fasting plasma glucose results greater than or equal to 126 mg/dL meet the criteria for diagnosis of diabetes. In the absence of unequivocal hyperglycemia, results should be confirmed by repeat testing. In a patient with classic symptoms of hyperglycemia or hyperglycemic crisis, random plasma glucose results greater than or equal to 200 mg/dL meet the criteria for diagnosis of diabetes. Reference: Standards of Medical Care in Diabetes 2016, [place] Diabetes Association. Diabetes Care. 2016.39(Suppl 1). Performed By: #### 1 1475-1, 53944-5, 635-3 #### [facility] CLIA [id number] 1 [place] [address] [place] Potassium [Moles/Vol] 4.7 mmol/L Normal 3.7-5.1 [facility] Comment on above: Order Comment: Audi men Type: BLOOD SPECIMENOrdering Facility: [facility] Address: [address] [address] Performed By: #### 1 1475-1, 21580-4, 635-3 #### [facility] CLIA [id number] 1 [place] [address] [place] Protein [Mass/Vol] 7.2 g/dL Normal 6.3-8.0 [facility] Comment on above: Order Comment: Jeremiahi marta Type: BLOOD SPECIMENOrdering Facility: [facility] Address: [address] [address] Performed By: #### 1 1475-1, 99637-5, 635-3 #### [facility] CLIA [id number] 1 [place] [address] [place] Sodium [Moles/Vol] 139 mmol/L Normal 136-144 [facility] Comment on above: Order Comment: Jeremiahi men Type: BLOOD SPECIMENOrdering Facility: [facility] Address: [address] [address] Performed By: #### 1 1475-1, 37428-1, 635-3 #### [facility] CLIA [id number] 1 [place] [address] [place] Urea nitrogen [Mass/Vol] 14 mg/dL Normal 7-21 [facility] Comment on above: Order Comment: Speci men Type: BLOOD SPECIMENOrdering Facility: [facility] Address: [facility] [address] [phone] Performed By: #### 1 1475-1, 55498-2, 635-3 #### [facility] CLIA [id number] 1 [place] [address] [place] HISTORY PHYSICALon HISTORY PHYSICAL HNO ID: [id number] Author: Mayi Grimes APRN.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 Service: ? Author Type: Nurse Practitioner Type: HANDP Filed: 09/28/2022 1:40 PM Note Text: HISTORY AND PHYSICAL EXAMINATION SERVICE DATE: 09/21/2022 SERVICE TIME: 1:39 PM PRIMARY CARE PHYSICIAN: No primary care provider on file. REASON FOR VISIT: Juliette Crews is a 47 year old female who is scheduled for Procedure(s): EXCISION PRESSURE ULCER SACRAL PREP FOR MUSCLE/ MYOCUTANEOUS FLAP OR SKIN GRAFT CLOSURE W/ OSTECTOMY (N/A) ADJACENT TISSUE TRANSFER / REARRANGEMENT BUTTOCKS ADD'L < OR =30 SQCM SQCM / GLUTEAL ROTATION (N/A) at the request of Dr. Nawaf Quinn for routine HANDP. My final recommendation will be communicated back to the requesting physician by way of shared medical record or letter. 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 CHIEF COMPLAINT: The reason for this visit is to perform a comprehensive review of the patient's past medical history, assess their current health status and obtain any additional testing required based on anesthesia guidelines. We will also identify any potential anesthesia problems or contraindications to the planned procedure. 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 Pt with hx spina bifida, hydrocephalus with ACCOUNT SERVICES REPRESENTATIVE shunt, non ambulatory. Pt presents with mother and caregiver for PST for OR 10/05/2022 for excision pressure ulcer sacral with flap or skin graft closure with Dr Urbina. REVIEW OF SYSTEMS: General: No weight loss, malaise or fevers. Negative for: unintentional weight change, malaise and fever. Neurological: Hydrocephalus with ACCOUNT SERVICES REPRESENTATIVE shunt Positive for: paraplegia. Negative for: headaches and seizures. Respiratory: Positive for: asthma (nebulizer), obstructive sleep apnea and CPAP/BiPAP compliant. Negative for: COPD and tobacco use. Cardiovascular: Negative for: arrhythmia, CAD, DVT/PE and hyperlipidemia. GI: Positive for: GERD Negative for: abdominal pain. : Positive for: self catheterization. Endocrine: Negative for: hyperthyroidism and hypothyroidism. Hematology: Positive for: chronic anti-coagulation/platelet meds. Patient is on anti-coagulation/platelet medication(s): Aspirin (81mg). Oncology: No history of CA metastasis, chemo within 30 days, or radiotherapy within 90 days. No history of oncological symptoms or problems. Psych: Positive for: anxiety and depression. Musculoskeletal: Occasional hand pain Paraplegia Skin: See HPI. PAST MEDICAL HISTORY Diagnosis Date [place] catheter at Hydrocephalus (HCC) Living in assisted living [facility] Paraplegia (HCC) Pressure injury of sacral region, stage 4 (HCC) Self-catheterizes urinary bladder 4X/DAY Spina bifida (HCC) USES COMPRESSION VEST UTI (lower urinary tract infection) Wheelchair dependence PAST SURGICAL HISTORY Procedure Laterality Date PAST SURGICAL HISTORY OF last in 1994 5 shunts placed PAST SURGICAL HISTORY OF 2002 rhonda in right foot AND SINCE BEEN REMOVED PAST SURGICAL HISTORY OF 2005 bladder surgery and cath in belly button PAST SURGICAL HISTORY OF 2012 5 buttock surgeries for pressure ulcer PAST SURGICAL HISTORY OF 2002 rhonda in back PAST SURGICAL HISTORY OF 1977 eye surgery/ [facility] PAST SURGICAL HISTORY OF 2020 [facility] H[facility] Problem Relation Age of Onset Cancer Maternal Grandmother Social History Tobacco Use Smoking status: Never Smokeless tobacco: Never Substance Use Topics Alcohol use: No Drug use: No Prior to Admission medications as of 09/28/22 1242 Medication Sig Last Dose Taking aspirin 81 mg chewable tablet Take 81 mg by mouth. Yes omeprazole (PRILOSEC) 20 mg capsule Yes loratadine 10 mg cap Take by mouth once daily. Yes budesonide (PULMICORT) 0.25 mg/2 mL nebulizer solution Inhale as instructed. Yes amino acids-protein hydrolys (PRO-STAT AWC) 17-100 gram-kcal/30 mL liqd Take 30 fluid ounces by mouth as directed. Yes Calcium Carbonate 1,000 mg Tab Take by mouth. Yes Multivitamins chew Take by mouth. Yes PARoxetine 20 mg tablet Take 1 tablet by mouth once daily. Yes oxybutynin ER (DITROPAN XL) 15 mg 24 hr Extended Rel Tab Take 1 tablet by mouth once daily. Yes metoprolol tartrate, short acting, (LOPRESSOR) 25 mg tablet Take 25 mg by mouth. sulfamethoxazole-trimethop rim (BACTRIM DS,SEPTRA DS) 800-160 mg per tablet Take by mouth twice daily. ascorbic acid, vitamin C, (VITAMIN C) 500 mg tablet Take 500 mg by mouth once daily. No medication comments fo (more content not included)... Normal [facility] PT panel Coag (PPP)on 2022 INR Coag (PPP) [Relative time] 1.0 {INR} Normal 0.9-1.3 [facility] Comment on above: Order Comment: Speci men Type: BLOOD SPECIMENOrdering Facility: [facility] Address: [address] [place] [address] [place] [address] Result Comment: Lucia min K Antagonist (VKA) Therapeutic Range: INR 2 to 3 (Target INR of 2.5) Note: For patients treated with VKA drugs, such as warfarin, the [place] [employer] 2012 Guideline recommends a therapeutic INR range of 2 to 3 (target INR of 2.5). This recommendation includes high-risk patients with antiphospholipid syndrome with previous arterial or venous thromboembolism, current-generation mechanical or bioprosthetic aortic heart valve replacement. Note: Patients with mechanical aortic valve replacement and additional risk factors for thromboembolic events (atrial fibrillation, previous thromboembolism, LV dysfunction, hypercoagulable conditions) or an older generation mechanical AVR (i.e., ball in-Cage) or any mechanical MVR should have a INR therapeutic range of 2.5 to 3.5 (target INR of 3). Kathy JORGE, et al. Chest 2012, 141:7S-47S Yudith LYON, et al. [facility] 2017, 70: 252-289 Performed By: #### 1 1475-1, 635-3, 10949-2 #### [facility] CLIA [id number] [address] [place] #### BACPCR #### [facility] CLIA [id number] [address] [place] PT Coag (PPP) [Time] 9.4 s Normal <13.1 [facility] Comment on above: Order Comment: Speci men Type: BLOOD SPECIMENOrdering Facility: [facility] Address: [address] [address] Performed By: #### 1 1475-1, 63-3, 69938-5 #### [facility] CLIA [id number] [address] STATES OF [facility] #### BACPCR #### [facility] CLIA [id number] [address] [place] Prealbumin [Mass/Vol]on 09-05 Prealbumin Nephelometry [Mass/Vol] 23 mg/dL Normal 17-36 [facility] Comment on above: Order Comment: Speci men Type: BLOOD SPECIMENOrdering Facility: [facility] Address: [address] [address] Performed By: #### 1 1475-1, 43829-9, 63-3 #### [facility] CLIA [id number] [address] [place] aPTT PPPon 09-28-2022 aPTT Coag (PPP) [Time] 25.9 s Normal 23.0-32.4 [facility] Comment on above: Order Comment: Speci men Type: BLOOD SPECIMENOrdering Facility: [facility] Address: [address] [address] Performed By: #### 1 1475-1, 635-3, 21964-0 #### [facility] CLIA [id number] 1 [place] [address] [place] #### BACPCR #### [facility] CLIA [id number] [address] [address] [place] Carlos 08-19-2022 CNPN Telephone ([facility]) -- JULIETTE CREWS ([id number]) 1975 F Date Time Provider Department 08/19/22 [facility] During your visit today, we recorded the following information about you: Nunu Alex LPN 08/19/2022 11:45 AM Signed Hi, Patient scheduled for surgery on October 05. 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 -What do you think patients discharge care plan would be after surgery? (Eating, colostomy, mobility) She is in a group disability facility and they do have some care on sight but not any nurse or doctor and they only come for 2 hours a day. Please advise. Thank you ISAIAH Wagner LPN 08/23/2022 3:07 PM Signed Thank you. 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 - sulfamethoxazole-trimethop rim (BACTRIM DS,SEPTRA DS) 800-160 mg per tablet Take 1 tablet by mouth twice daily. - Calcium Carbonate 1,000 mg Tab Take by mouth. - ascorbic acid, vitamin C, (VITAMIN C) 500 mg tablet Take 500 mg by mouth once daily. - Multivitamins chew Take by mouth. - PARoxetine 20 mg tablet Take 1 tablet by mouth once daily. - oxybutynin ER (DITROPAN XL) 15 mg 24 hr Extended Rel Tab Take 1 tablet by mouth once daily. Problem List As Of Date 08/19/2022 Noted Resolved S/P ACCOUNT SERVICES REPRESENTATIVE shunt [Z98.2] 03/12/2013 Hydrocephalus [G91.9] 03/12/2013 Encounter Status:Closed by NUNU ALEX on 08/26/22 [facility] CNOVon 08-04-2022 CN Office Visit [facility] -- JULIETTE CREWS ([id number]) 1975 F Date Time Provider Department 08/04/22 1:30 PM [facility] During your visit today, we recorded the following information about you: Weight Height 68 kg 1.372 m Nawaf Quinn MD 08/05/2022 12:10 PM Signed Nawaf Quinn [address] [facility] [address] [place] [address] Plastic Surgery New Office Note CC: Wound Check HPI: Juliette is a 47 year old female here today for wound check. Patient is here today for sacral wound. Present since December. Previous gluteal rotational flap. PAST MEDICAL HISTORY Diagnosis Date Hydrocephalus Paraplegia Spina bifida UTI (lower urinary tract infection) PAST SURGICAL HISTORY Procedure Laterality Date PAST SURGICAL HISTORY OF last in 1994 5 shunts placed PAST SURGICAL HISTORY OF rhonda in right foot PAST SURGICAL HISTORY OF bladder surgery and cath in belly button PAST SURGICAL HISTORY OF 5 buttock surgeries for pressure ulcer PAST SURGICAL HISTORY OF rhonda in back PAST SURGICAL HISTORY OF eye surgery No family history on file. Social History Tobacco Use Smoking status: Never Smokeless tobacco: Never Substance Use Topics Alcohol use: No Drug use: No Current Outpatient Medications Medication Sig sulfamethoxazole-trimethop rim (BACTRIM DS) 800-160 mg per tablet Take 1 tablet by mouth twice daily. Calcium Carbonate 1,000 mg Tab Take by mouth. ascorbic acid (VITAMIN C) 500 mg tablet Take 500 mg by mouth once daily. Multivitamins (CHEWABLE MULTI VITAMIN) Chew Take by mouth. PARoxetine 20 mg tablet Take 1 tablet by mouth once daily. oxybutynin XL (DITROPAN XL) 15 mg 24 hr tablet Take 1 tablet by mouth once daily. No current facility-administered medications for this visit. ALLERGIES Allergen Reactions Augmentin [Amoxicil* Diarrhea Ciprofloxacin Other: See Comments joint swelling Zpak [Azithromycin] Diarrhea REVIEW OF SYSTEMS: ROS PHYSICAL EXAM: Ht 4' 6 (1.37m) Wt 150 lb (68.0kg) BMI 36.15 kg/(m2). CONSTITUTIONAL: awake, alert, cooperative Sacral pressure wound - bone palpable, not obviously soft, wound 5x5cm, undermines all directions, epibole, no cellulitis, moderate amt of exudate, right sided previous gluteal rotation flap, insensate ASSESSMENT / PLAN: 47 year old y/o female with stage IV pressure sore of sacrum - plan for below. The risks/benefits of surgery were discussed. I have explained the risks and benefits including but not limited to infection, hematoma, seroma, open wounds, chronic wounds, prolonged time off and possibility for additional surgery. I have answered all patients questions to the best of my ability and to the patients satisfaction. The patient voiced understanding of the above and had no further questions and agreed to proceed with surgery. During this patient visit I have spent approximately 30 minutes out of 45 in counseling regarding treatment options and coordinating care. The patient is seen and examined by Dr. Quinn and the following reflects his/her service. Scribed by Oralia Burnett MA I agree with the Chief Complaint, ROS, and Past Histories independently gathered by the clinical mining support worker and the remaining scribed note accurately describes my personal service to the patient. Surgery Scheduling Juliette Francisco Eleonora 1975 Procedure: excision sacral pressure sore, immediate reconstruction with gluteal rotations or v-y advancement flap OR Time Needed: 3 hrs [place] or ASC:[facility] Equipment Request: clinitron bed, ronguers, rasps, plastic set, two bovies, 19F drains x2, 2-0 undyed vicryl, 3-0 nylon, stapler (extra), prineo SA Requested: Yes Anesthesia: General - prone Post op appointment: 3,6 Inpatient stay:Yes Block Needed: No Pre Testing Needed: Yes Occupational Therapy: No Cosmetic: No Nawaf Quinn MD Allergies As of Date: 08/04/2022 Noted Allergy Reaction AUGMENTIN (AMOXICILLIN-POT CLAVUL*02/14/2013 6 - Diarrhea CIPROFLOXACIN 02/14/2013 14 - Other: See Comments Comments: joint swelling ZPAK (AZITHROMYCIN) 02/14/2013 6 - Diarrhea Date Reviewed: 04/09/2013 Reviewed by: Mary Patel Ma - Fully Assessed Reason for Visit: New Patient [172] Primary Visit Diagnosis:Pressure injury of sacral region, stage 4 (HCC) [L89.154] Order(s):CBC + DIFF [SQCBCDIF] Order #: [id number] FUTURE COMP METABOLIC PANEL [SQCMP] Order #: [id number] FUTURE HEPATIC FUNCTION PNL [SQHFP] Order #: [id number] FUTURE PREALBUMIN BLD [SQPREALB] Order #: [id number] FUTURE PROTHROMBIN TIME/PT [SQPT] Order #: [id number] FUTURE ACTIVATED PTT [SQPTT] Order #: [id number] FUTURE Prescriptions as of 08/05/2022 - sulfamethoxazole-trimethop rim (BACTRIM DS,SEPTRA DS) 800-160 mg per tablet Take 1 tablet by mouth twice daily. - Calcium Carbonate 1,000 mg (more content not included)... Normal [facility] Bacteria identified Cx Nom ( Wound)Ordered By: Dr. Kinney on 07-26-2022 Wound Culture Proteus mirabilis [facility] Wound Culture Staphylococcus aureus [facility] Anaerobic cultureOrdered By: Dr. Kinney on 07-25-2022 Bacteria identified Anaer cx Nom (Unsp spec) No anaerobic bacteria isolated. [facility] Gram stain for investigation of transfusion reactionOrdered By: Dr. Kinney on 07-23-2022 Microscopic observation Gram stain Nom (Unsp spec) [facility] Anaerobic cultureOrdered By: Dr. Kinney on 06-28-2022 Bacteria identified Anaer cx Nom (Unsp spec) No anaerobic bacteria isolated. [facility] Bacteria identified Cx Nom ( Wound)Ordered By: Dr. Kinney on 06-27-2022 Wound Culture Proteus mirabilis [facility] Wound Culture Staphylococcus aureus [facility] Wound Culture Corynebacterium striatum [facility] Gram stain for investigation of transfusion reactionOrdered By: Dr. Kinney on 06-24-2022 Microscopic observation Gram stain Nom (Unsp spec) [facility] Absolute lymphocyte countOrd ered By: Dr. Kinney on 06-02-2022 Lymphocytes Auto (Unsp spec) [#/Vol] 2.34 10*3/uL 0.83-4.51 [facility] Basophil percentageOrdered B y: Dr. Kinney on 06-02-2022 Basophils/100 WBC (Bld) 0.4 % 0-1 [facility] Eosinophils/100 WBC (Bld) 2.1 % 0-5 [facility] Neutrophils (Bld) [#/Vol] 9.6 10*3/uL 2.0-7.7 [facility] Neutrophils/100 WBC (Bld) 73.8 % 47-70 [facility] WBC (Bld) [#/Vol] 13.0 10*3/uL 4.4-11.0 [facility] Blood erythrocytes count (nu mber/volume)Ordered By: Dr. Kinney on 06-02-2022 RBC (Bld) [#/Vol] 4.24 10*6/uL 4.2-5.4 [facility] Blood hemoglobin measurement (mass/volume)Ordered By: Dr. Kinney on 06-02-2022 Hemoglobin (Bld) [Mass/Vol] 12.6 g/dL 12.0-15.0 [facility] Blood lymphocytes/100 leukoc ytesOrdered By: Dr. Kinney on 06-02-2022 Lymphocytes/100 WBC (Bld) 18.0 % 19-41 [facility] Blood monocytes/100 leukocyt esOrdered By: Dr. Kinney on 06-02-2022 Monocytes/100 WBC (Bld) 5.3 % 0-10 [facility] Blood platelet mean volumeOr dered By: Dr. Kinney on 06-02-2022 Platelet mean volume (Bld) [Entitic vol] 9.3 fL 6.2-12.0 [facility] Determination of erythrocyte mean corpuscular volume (MCV)Ordered By: Dr. Kinney on 06-02-2022 MCV (RBC) [Entitic vol] 91.3 fL 81-99 [facility] Erythrocyte sedimentation ra teOrdered By: Dr. Kinney on 06-02-2022 ESR (Bld) [Velocity] 97 mm/h 0-30 [facility] Hematocrit Auto (Bld) [Volum e fraction]Ordered By: Dr. Kinney on 06-02-2022 Hematocrit (Bld) [Volume fraction] 38.7 % 37-47 [facility] Laboratory - Hematology and Cell countsOrdered By: Dr. Kinney on 06-02-2022 Erythrocyte distribution width (RBC) [Entitic vol] 48.2 fL 35.1-43.9 [facility] Erythrocyte distribution width (RBC) [Ratio] 14.6 % 11.6-14.6 [facility] Immature granulocytes/100 WBC (Bld) 0.400 % 0.0-0.9 [facility] Comment on above: IG% - Immature Granu locytes (promyelocytes, myelocytes and metamyelocytes) > 1% indicates that a LEFT SHIFT is Present. MCH (RBC) [Entitic mass] 29.7 pg 27.0-32.0 [facility] Nucleated RBC/100 WBC (Bld) [Ratio] 0 % 0-5 [facility] MCHC Auto (RBC) [Mass/Vol]Or dered By: Dr. Kinney on 06-02-2022 MCHC (RBC) [Mass/Vol] 32.6 g/dL 32-36 [facility] Platelets bldOrdered By: Dr. Kinney on 06-02-2022 Platelets (Bld) [#/Vol] 442 10*3/uL 150-450 [facility] Serum or plasma C reactive p rotein measurement (mass/volume)Ordered By: Dr. Kinney on 06-02-2022 CRP [Mass/Vol] 53.50 mg/L 0.0-3.0 [facility] Comment on above: C-Reactive Protein ( CRP) provides useful information for thediagnosis, therapy and monitoring of inflammatory processesand associated diseases. For the evaluation of Relative Riskfor Cardiovascular Disease, a High Sensitivity CRP (HSCRP)should be ordered. Serum or plasma transthyreti n measurement (mass/volume)Ordered By: Dr. Kinney on 06-02-2022 Prealbumin [Mass/Vol] 18.7 mg/dL 20.0-40.0 [facility] Bacteria identified Anaer cx Nom (Unsp spec)Ordered By: Dr. Kinney on 06-01-2022 Anaerobic Culture Anaerobic cocci [facility] Bacteria identified Cx Nom ( Wound)Ordered By: Dr. Kinney on 05-30-2022 Wound Culture [address]aphylococcus aureus [facility] Wound Culture Corynebacterium striatum [facility] Gram stain for investigation of transfusion reactionOrdered By: Dr. Kinney on 05-27-2022 Microscopic observation Gram stain Nom (Unsp spec) [facility] Basophil percentageon 2021 Chloride [Moles/Vol] 102 mmol/L 98-107 [facility] Work Phone: Glucose [Mass/Vol] 122 mg/dL 74-106 [facility] Work Phone: Comment on above: Fasting Glucose resu lt from 100 to 125 mg/dL suggests IMPAIRED HOMEOSTASIS per A.D.A. criteria. Potassium [Moles/Vol] 3.4 mmol/L 3.5-5.1 [facility] Work Phone: Sodium [Moles/Vol] 139 mmol/L 136-145 [facility] Work Phone: Laboratory - Chemistry and C hemistry - challengeon 10-12-2021 CO2 [Moles/Vol] 33.0 mmol/L 21.0-32.0 [facility] Work Phone: Urea nitrogen/Creatinine [Mass ratio] 16.2 mg/mg 10-20 [facility] Work Phone: No Panel Informationon 10-12 Estimated GFR (MDRD) Amer 151 mL/min >60 [facility] Work Phone: Comment on above: GFR Calc Estimated GFR (MDRD) Non-Af Amer 125 mL/min >60 [facility] Work Phone: Comment on above: Non- GFR Calc Serum or plasma calcium rodger urement (mass/volume)on 10-12-2021 Calcium [Mass/Vol] 9.3 mg/dL 8.5-10.1 [facility] Work Phone: Serum or plasma creatinine m easurement (mass/volume)on 10-12-2021 Creatinine [Mass/Vol] 0.56 mg/dL 0.55-1.02 [facility] Work Phone: Comment on above: The validity of the calculated GFR & GFRAA in patients over 70 years has not been determined. Clinical correlation is essential. Serum or plasma urea nitroge n measurement (mass/volume)on 10-12-2021 Urea nitrogen [Mass/Vol] 9 mg/dL 7-18 [facility] Work Phone: Thin prep Papanicolaou smear with manual screeningon 10-12-2021 Thin prep Papanicolaou smear with manual screening 4 5-15 [facility] Work Phone: NM RENAL STATIC & FUNCTIONon 11-25-2017 NM RENAL STATIC & FUNCTION CLINICAL HISTORY: neurogenic bladderCOMPARISON: 11/10/2010TECHNIQUE: Following IV injection of 5.0 mCi of technetium 99m - DMSA, multiplestatic images were obtained over the kidneys supplemented by pinhole images. The split renal function was also calculated.FINDINGS:KIDNEY S: Orthotopic and nearly symmetric in size. There is no central photopenic area to suggest hydronephrosis.RADIOTRACER UPTAKE: There is bilateral renal scarring. Scarring can be seen inthe upper and lower poles of both kidneys. These findings are new from theprevious exam.SPLIT FUNCTION: Left kidney: 53.6% total renal function Right kidney: 46.4% total renal functionIMPRESSION: New bilateral renal scarring since the 11/10/2010 exam.This report has been created using voice recognition softwareSigned by: Dr. Praneeth Thomas at 11/25/2017 14:50 Normal [facility] Progress Noteon 11-25-2017 Awning Spreader Authentication Interface Message Text Juliette Crews is here for follow-up for:neurogenic bladder Urologic ProblemHistory of Presenting Problem:History of myelodysplasia: . CIC: every 4 hours during day and night cath todrain. No difficulties. UTI: none with fever. Is not wet. Is satisfiedwith continence. Constipation managed by enema.Past Medical History:Past Medical History:Diagnosis Date Constipation CPAP (continuous positive airway pressure) dependence only at night Delay in development Depression Hematuria Neurogenic bladder Spina bifida UTI (urinary tract infection) Wears glassesPast Surgical History:Procedure Laterality Date BACK SURGERY BLADDER SURGERY Mitrofanoff CHOLECYSTECTOMY EYE SURGERY VENTRICULOPERITONEAL SHUNTAllergies:AllergiesAl lergen Reactions Augmentin [Amoxicillin-Pot Clavulanate] Diarrhea Ciprofloxacin Other (See Comments) Joint swelling Keflex [Cephalexin] Diarrhea Zithromax [Azithromycin] DiarrheaMedications:Outpat ient Encounter Prescriptions as of 11/25/2017Medication Sig Dispense Refill PARoxetine (PAXIL) 40 MG TABS Take by mouth daily Multiple Vitamins-Minerals (MULTIVITAMIN ADULTS PO) Take by mouth daily Probiotic Product (PROBIOTIC PO) Take by mouth daily Docusate Sodium (COLACE PO) Take by mouth as needed Ascorbic Acid (VITAMIN C PO) Take by mouth daily CALCIUM PO Take by mouth daily MedroxyPROGESTERone Acetate (DEPO-PROVERA IM) Inject into the muscle Oxybutynin Chloride (DITROPAN-XL) 15 MG TB24 CR tablet Take 1 Tab (15 mg) bymouth daily 90 Tab 3 polyethylene glycol (MIRALAX;GLYCOLAX) powder Take 17 g by mouth daily In 8ounces of non carbonated beverage. 527 g 11 Fluconazole (DIFLUCAN PO) Take by mouth as neededNo facility-administered encounter medications on file as of 11/25/2017.Family Medical History:Family HistoryProblem Relation Age of Onset Hypertension Mother Thyroid Disease Mother Arthritis Mother No known problems Father No known problems SisterSocial History:Social HistorySocial History Marital status: Single Spouse name: N/A Number of children: N/A Years of education: N/AOccupational History Not on file.Social History Main Topics Smoking status: Never Smoker Smokeless tobacco: Never Used Alcohol use Not on file Drug use: Unknown Sexual activity: Not on fileOther Topics Concern Not on fileSocial History Narrative No narrative on fileAdditional History Is the patient on a special diet? No Does the patient have special needs? Wheelchair Age at toilet training? n/a Per parents, immunizations are up to date. Yes Patient lives with? Parents Factors which may affect learning NoneReview of Systems:A comprehensive review of systems was negative. No fever or cough today.Physical Examination:Vitals: 11/25/17 1343Weight: 64.9 kgGeneral: Well appearingEyes: Pupils equal, conjunctivae normalENT: Ears normal, no nasal dischargeResp: Normal effort, no wheezingHeart: Normal Capillary refill, palpable pulsesLymphatic: No cervical or inguinal lymphadenopathyAbdomen: Non-tender, no massesMusculoskeletal: Normocephalic head, stable for patientNeurologic: Normal sensation for patientSkin: Warm and dry to palpation, no rashLaboratory Testing:No results found for this visit on 11/25/17.Imaging:Stable USQuestion stoneStable renal scanAssessment & Plan:Juliette was seen today for urologic problem.Diagnoses and all orders for this visit:Spina bifida of thoracic region with hydrocephalusNeurogenic bladderUrinary incontinence, unspecified typeConstipation, unspecified constipation typeNeurogenic bladderCall if UTI.Continue current bladder management.Serial US with next in 12 months.Increase hydrationFollow up with Rajiv Rios MD or Soren Arevalo MDJunnicole 2017 Normal [facility] US RENAL COMPLETEon 11-26-19 US RENAL COMPLETE CLINICAL HISTORY: neurogenic bladderTECHNIQUE: Grayscale sonography of the kidneys and urinary bladder was performed while patient was sitting in the chair.COMPARISON: Renal ultrasound 07/23/2016.FINDINGS:Evaluat ion is partially limited secondary to technique and body habitus.RIGHT KIDNEY:LENGTH: 9.8 cm - normal for age.PARENCHYMA: 1 cm echogenic focus in the right kidney which may demonstrate afaint posterior acoustic shadow (image 25).COLLECTING SYSTEM: No pelvocaliectasis.LEFT KIDNEY:LENGTH: 10.5 cm - normal for age.PARENCHYMA: A 2 mm punctate echogenic focus is in the upper pole of the leftkidney (image 28).COLLECTING SYSTEM: No pelvocaliectasis.URETERS: There is no ureteral dilation.URINARY BLADDER: Mildly distended. No wall thickening or intraluminal debris.IMPRESSION: 1 cm nonobstructing calculus in the lower pole of the right kidney andquestion2 mm nonobstructing calculus in the upper pole of the left kidney.This report has been created using voice recognition softwareSigned by: Dr. Pema Leon at 11/25/2017 17:14 Normal [facility] Laboratory - Chemistry and C hemistry - challengeon 10-10-2017 Bilirubin Ql (U) Negative Normal PlotWatt [facility] Alter-G [email or web address].; [employer] [facility] [employer], [employer]. Ketones Ql (U) Negative Normal [facility] I-Shake [facility]StorageByMail.com.; [employer], Inc. pH (U) 6.0 [pH] Normal [facility] [employer].; [employer], [employer]. Specific gravity (U) [Rel density] 1.005 Normal [facility] [employer], [employer]. Laboratory - Hematology and Cell countson 10-10-2017 Hemoglobin Ql (U) HEMOLYZED 3+ Abnormal [facility] [employer].; [employer], Inc. Laboratory - Specimen inform ationon 10-10-2017 Appearance (U) CLOUDY Abnormal [employer].; [employer], Inc. Color (U) YELLOW Normal [facility].; [employer], Inc. Laboratory - Urinalysison Glucose Test strip (U) [Mass/Vol] Negative Normal [facility].; [employer], Inc. Leukocyte esterase Test strip Ql (U) 3+ Abnormal [facility].; [employer], Inc. Nitrite Ql (U) Negative Normal [employer] [facility], Inc.; [employer], Inc. Protein Ql (U) 1+ Abnormal [facility] Alter-G [facility], Inc.; [place] [employer] [facility] Alter-G [facility], Inc. No Panel Informationon 10-10 Culture Urine See Note Normal [facility] Alter-G [facility], Inc.; [place] - [facility] Alter-G [facility], Inc. UA - ODOR Negative Normal [facility], Inc.; [place] - [facility] Alter-G [facility], Inc. UA - UROBILIGEN 0.2 Normal [facility] Alter-G [email or web address].; [place] [employer] [facility] Alter-G [facility], Inc. Laboratory - Chemistry and C hemistry - challengeon 09-13-2017 Bilirubin Ql (U) Negative Normal [facility] Alter-G [facility], Inc.; [employer] [facility] Alter-G [facility], Inc. Ketones Ql (U) Negative Normal [facility] Alter-G [facility], Inc.; [employer]current Thinking - [facility] [employer], Inc. pH (U) 6.0 [pH] Normal [facility] Alter-G [facility], Inc.; [employer] [facility] Alter-G [facility], Inc. Specific gravity (U) [Rel density] 1.010 Normal [facility] Seratis.; [employer] [facility] [employer], Inc. Laboratory - Hematology and Cell countson 09-13-2017 Hemoglobin Ql (U) HEMOLYZED 3+ Abnormal [facility] Seratis.; [employer] [facility] Alter-G [facility], Inc. Laboratory - Specimen inform ationon 09-13-2017 Appearance (U) CLOUDY Abnormal [facility] Anton Alter-G [facility], Inc.; [employer] [facility] Montaño [employer], Inc. Color (U) YELLOW Normal [facility] Alter-G [facility] [email or web address].; [employer] [facility] [employer], Inc. Laboratory - Urinalysison Glucose Test strip (U) [Mass/Vol] Negative Normal [facility] Alter-G [facility], Inc.; [place] - [facility] [employer], Inc. Leukocyte esterase Test strip Ql (U) 3+ Abnormal [facility] [employer] Inc.; [employer] [facility] [employer], Inc. Nitrite Ql (U) Positive Abnormal [facility] Alter-G [facility], Inc.; [employer] [facility] [employer], Inc. Protein Ql (U) TRACE Abnormal [employer]back [facility], Inc.; [employer] [facility] Alter-G [facility], Inc. No Panel Informationon 09-13 Culture Urine See Note Normal [facility], Inc.; [facility] [place], Inc. UA - ODOR Negative Normal [facility], [facility].; [facility], [place], Inc. UA - UROBILIGEN 0.2 Normal [facility], [facility].; [facility], [place], Inc. Progress Noteon 07-06-2017 Awning Spreader Authentication Interface Message Text error Normal [facility] Awning Spreader Authentication Interface Message Text Juliette Crews is here for follow-up for: Neurogenic BladderHistory of Presenting Problem:History of neurogenic bladder. Has mitrofanoff. Bowel management with peristeen.Has a UTI now. Is on antibiotic BID. Urine was very smelly and cloudy. Also hadurinary leaking/wetting. No fevers, no blood in urine. Urine no longer cloudy orwith odor.CIC every four hours and night drain. Doing peristeen for bowel management.Doing it every other day. Could not do it every day because of a lot ofaccidentsNow is having rare bowel accident, and is just a small amount. Dry in betweencathing unless she has a UTI.A few days ago, catheterized and then when sister moved her, she had a largeaccident.Had an episode of gross hematuria one year ago. Normal renal ultrasound and KUB.Recently had UTIPast Medical History:Past Medical History:Diagnosis Date Constipation CPAP (continuous positive airway pressure) dependence only at night Delay in development Depression Hematuria Neurogenic bladder Spina bifida UTI (urinary tract infection) Wears glassesPast Surgical History:Procedure Laterality Date BACK SURGERY BLADDER SURGERY Mitrofanoff CHOLECYSTECTOMY EYE SURGERY VENTRICULOPERITONEAL SHUNTAllergies:AllergiesAl lergen Reactions Augmentin [Amoxicillin-Pot Clavulanate] Diarrhea Ciprofloxacin Other (See Comments) Joint swelling Keflex [Cephalexin] Diarrhea Zithromax [Azithromycin] DiarrheaMedications:Outpat ient Encounter Prescriptions as of 07/06/2017Medication Sig Dispense Refill Sulfamethoxazole-Trimethop rim (BACTRIM DS PO) Take by mouth 2 times daily PARoxetine (PAXIL) 40 MG TABS Take by mouth daily Multiple Vitamins-Minerals (MULTIVITAMIN ADULTS PO) Take by mouth daily Probiotic Product (PROBIOTIC PO) Take by mouth daily Docusate Sodium (COLACE PO) Take by mouth as needed Fluconazole (DIFLUCAN PO) Take by mouth as needed Ascorbic Acid (VITAMIN C PO) Take by mouth daily CALCIUM PO Take by mouth daily MedroxyPROGESTERone Acetate (DEPO-PROVERA IM) Inject into the muscle Oxybutynin Chloride (DITROPAN-XL) 15 MG TB24 CR tablet Take 1 Tab (15 mg) bymouth daily 90 Tab 3 polyethylene glycol (MIRALAX;GLYCOLAX) powder Take 17 g by mouth daily In 8ounces of non carbonated beverage. 527 g 11No facility-administered encounter medications on file as of 07/06/2017.Family Medical History:Family HistoryProblem Relation Age of Onset Hypertension Mother Thyroid Disease Mother Arthritis Mother No known problems Father No known problems SisterSocial History:Social HistorySocial History Marital status: Single Spouse name: N/A Number of children: N/A Years of education: N/AOccupational History Not on file.Social History Main Topics Smoking status: Never Smoker Smokeless tobacco: Never Used Alcohol use Not on file Drug use: Unknown Sexual activity: Not on fileOther Topics Concern Not on fileSocial History Narrative No narrative on fileAdditional History Is the patient on a special diet? No Does the patient have special needs? Wheelchair Age at toilet training? n/a Per parents, immunizations are up to date. Yes Patient lives with? Parents Factors which may affect learning NoneReview of Systems:A comprehensive review of systems was negative. no fever, no rash, no cough, nocoldPhysical Examination:Vitals: 07/06/17 0825Weight: 65.1 kgGeneral: Well appearingEyes: Pupils equal, conjunctivae normalENT: Ears normal, no nasal dischargeResp: Normal effort, no wheezingHeart: Normal Capillary refill, palpable pulsesLymphatic: No cervical or inguinal lymphadenopathyAbdomen: Non-tender, no masses-softMusculoskeletal : Normocephalic head, no lower extremity weaknessNeurologic: Normal sensationSkin: Warm and dry to palpation, no rashGU: bladder softLaboratory Testing:No results found for this visit on 07/06/17.Imaging:Difficult to visualizeAssessment & Plan:Juliette was seen today for neurogenic bladder.Diagnoses and all orders for this visit:Spina bifida of thoracic region with hydrocephalus- Kidney/Bladder UltrasoundNeurogenic bladder- Kidney/Bladder UltrasoundWill check DMSA and US in hospitalI have personally shared in the visit of Juliette Crews, providing bedsideparticipation in the E&M. I saw and evaluated the patient and the discussed theplan with the resident/HUMAN RESOURCES TRAINING MANAGER. I added additional physical exam and history andconfirmed other pertinent data. I performed all of the medical decision makingand developed the plan with the family.Luis Enrique Brennan, Jessica Geiger, CNPJanuary 2017 Normal [facility] Laboratory - Chemistry and C hemistry - challengeon 07-20-2016 Bilirubin Ql (U) Negative Normal [facility]Watt [facility] Alter-G [facility], Inc.; [employer] [facility] Boomi [facility], Inc. Ketones Ql (U) Negative Normal [facility] I-Shake [facility], Inc.; [employer], Inc. pH (U) 5.0 [pH] Normal [facility] Boomi [facility], [employer].; [employer], Inc. Specific gravity (U) [Rel density] 1.020 Normal [facility] [employer], [employer].; [employer], Inc. Laboratory - Hematology and Cell countson 07-20-2016 Hemoglobin Ql (U) HEMOLYZED 1+ Abnormal [facility].; [employer], Inc. Laboratory - Specimen inform ationon 07-20-2016 Appearance (U) CLEAR Normal [employer], [employer].; [employer], Inc. Color (U) YELLOW Normal [employer], [employer].; [employer], Inc. Laboratory - Urinalysison Glucose Test strip (U) [Mass/Vol] Negative Normal [employer], Inc.; [employer], Inc. Leukocyte esterase Test strip Ql (U) 2+ Abnormal [facility].; [employer], Inc. Nitrite Ql (U) Negative Normal [employer] [facility], Inc.; [employer], Inc. Protein Ql (U) Negative Normal [employer] [facility], Inc.; [employer], Inc. No Panel Informationon 07-20 Culture Urine SEE BELOW Normal [email or web address].; [facility] [place], Inc. UA - ODOR Negative Normal [facility].; [facility], [place], Inc. UA - UROBILIGEN 0.2 Normal [facility] Center[facility].; [facility], [place], [facility]. Laboratory - Chemistry and C hemistry - challengeon 2016 Bilirubin Ql (U) Negative Normal [facility], Inc.; [facility], [place], Inc. Ketones Ql (U) Negative Normal [facility], Inc.; [facility], [place], Inc. pH (U) 5.0 [pH] Normal [facility]icsMyColorScreen [facility].; [facility], [place], Inc. Specific gravity (U) [Rel density] 1.015 Normal [email or web address].; [facility], [place], Inc. Laboratory - Hematology and Cell countson 2016 Hemoglobin Ql (U) HEMOLYZED 2+ Abnormal [facility].com.; [facility], [place], Inc. Laboratory - Microbiology an d Antimicrobial susceptibilityon 2016 Bacteria identified Cx Nom (U) See Note Normal [facility]icsStorageByMail.com.; [employer]current [employer] [facility], Inc. Laboratory - Specimen inform ationon 2016 Appearance (U) CLOUDY Abnormal [facility] Center[facility].com.; [facility], [place], Inc. Color (U) YELLOW Normal [facility].com.; [facility], [place], Inc. Laboratory - Urinalysison Glucose Test strip (U) [Mass/Vol] Negative Normal [facility].com.; [facility], [place], Inc. Leukocyte esterase Test strip Ql (U) 3+ Abnormal [facility].com.; [facility], [place], Inc. Nitrite Ql (U) Negative Normal [facility] CenterMyColorScreen [facility].; [facility], [place], Inc. Protein Ql (U) Negative Normal [facility], Inc.; [facility] Alter-G [facility], Inc. No Panel Informationon 03-29 UA - ODOR Positive Abnormal [facility]ics[facility]ByMail.com.; [facility], [place], Inc. UA - UROBILIGEN 0.2 Normal [facility], Inc.; [place] [facility], Inc. Laboratory - Chemistry and C hemistry - challengeon 07-14-2015 Bilirubin Ql (U) Negative Normal [facility], Inc.; [facility], Inc. Ketones Ql (U) TRACE Abnormal [facility], Inc.; [facility], Inc. pH (U) 5.0 [pH] Normal [facility], Inc.; [facility], Inc. Specific gravity (U) [Rel density] 1.005 Normal [facility], [facility].; [facility], Inc. Laboratory - Hematology and Cell countson 07-14-2015 Hemoglobin Ql (U) HEMOLYZED 3+ Abnormal [facility], Inc.; [facility], Inc. Laboratory - Specimen inform ationon 07-14-2015 Appearance (U) CLEAR Normal [facility], Inc.; [facility], Inc. Color (U) YELLOW Normal [facility], [facility].; [facility], Inc. Laboratory - Urinalysison Glucose Test strip (U) [Mass/Vol] Negative Normal [facility], Inc.; [facility], Inc. Leukocyte esterase Test strip Ql (U) 3+ Abnormal [facility], [facility].; [facility], Inc. Nitrite Ql (U) Negative Normal [facility], Inc.; [facility], Inc. Protein Ql (U) Negative Normal [facility], Inc.; [facility], Inc. No Panel Informationon 07-14 UA - ODOR Negative Normal [facility], Inc.; [facility], Inc. UA - UROBILIGEN 0.2 Normal [facility], Inc.; [facility], Inc. Laboratory - Chemistry and C hemistry - challengeon 06-03-2015 Bilirubin Ql (U) Negative Normal [facility], Inc.; [employer] [facility] [place]ño Alter-G [facility], Inc. Ketones Ql (U) Negative Normal [facility] [employer] [facility], Inc.; [facility] Alter-G [facility], Inc. pH (U) 6.0 [pH] Normal [facility], Inc.; [employer] [facility] Alter-G [facility], Inc. Specific gravity (U) [Rel density] 1.025 Normal [facility] Alter-G [facility]StorageByMail.com.; [employer] [facility] Alter-G [facility], Inc. Laboratory - Hematology and Cell countson 06-03-2015 Hemoglobin Ql (U) HEMOLYZED 2+ Abnormal [facility] Alter-G [facility]Storage[facility]Mail.com.; [employer] [facility] Alter-G [facility], Inc. Laboratory - Specimen inform ationon 06-03-2015 Appearance (U) CLOUDY Abnormal [facility] Packback [facility], [employer].; [employer] [facility] Alter-G [facility], Inc. Color (U) YELLOW Normal [facility] Alter-G [facility]Storage[facility]Mail.com.; [employer] [facility] Alter-G [facility], Inc. Laboratory - Urinalysison Glucose Test strip (U) [Mass/Vol] Negative Normal [facility] Alter-G [facility]Storage[facility]Mail.com.; [employer] - [facility] Alter-G [facility], Inc. Leukocyte esterase Test strip Ql (U) 2+ Abnormal [facility] Alter-G [facility]StorageByMail.com.; [employer] [facility] Alter-G [facility], Inc. Nitrite Ql (U) Positive Abnormal [facility] [employer]back [facility], [employer].; [employer] [facility] Alter-G [facility], Inc. Protein Ql (U) TRACE Abnormal [employer] Saint [email or web address].; [employer] [facility] [employer] [facility] No Panel Informationon 06-03 UA - ODOR Positive Abnormal [email or web address].; [employer] [facility] [employer] [facility] UA - UROBILIGEN 0.2 Normal [employer] [facility] [employer] [facility] [employer] [facility] Laboratory - Chemistry and C hemistry - challengeon 02-12-2014 Bilirubin Ql (U) Negative Normal [facility].; [employer] [facility] [employer] [facility] Ketones Ql (U) Negative Normal [facility] [employer] [facility] [employer] [facility] pH (U) 6.0 [pH] Normal [facility].; [facility] [place], Inc. Specific gravity (U) [Rel density] 1.005 Normal [email or web address].; [facility] [place], Inc. Laboratory - Hematology and Cell countson 02-12-2014 Hemoglobin Ql (U) HEMOLYZED 1+ Abnormal [facility], Inc.; [facility] [place], Inc. Laboratory - Specimen inform ationon 02-12-2014 Appearance (U) CLOUDY Abnormal [facility].; [facility] [place], Inc. Color (U) YELLOW Normal [facility].; [facility] [place], Inc. Laboratory - Urinalysison Glucose Test strip (U) [Mass/Vol] Negative Normal [facility].; [facility] [place], Inc. Leukocyte esterase Test strip Ql (U) 3+ Abnormal [facility].; [facility] [place], Inc. Nitrite Ql (U) Positive Abnormal [facility].; [facility] [place], Inc. Protein Ql (U) 1+ Abnormal [facility].; [facility] [place], Inc. No Panel Informationon 02-12 UA - ODOR Negative Normal [facility].; [facility] [place], Inc. UA - UROBILIGEN 0.2 Normal [facility].; [facility] [place], Inc. Laboratory - Chemistry and C hemistry - challengeon 12-12-2013 Bilirubin Ql (U) Negative Normal [facility] [employer] [place], Inc. Ketones Ql (U) Negative Normal [facility], [employer].; [facility] [place], Inc. pH (U) 5.0 [pH] Normal [facility].; [facility] [place], Inc. Specific gravity (U) [Rel density] 1.025 Normal [email or web address].; [facility] [place], Inc. Laboratory - Hematology and Cell countson 12-12-2013 Hemoglobin Ql (U) HEMOLYZED 3+ Abnormal [facility], [facility].; [facility] [place], Inc. Laboratory - Specimen inform ationon 12-12-2013 Appearance (U) CLOUDY Abnormal [facility], [facility].; [facility] [place], Inc. Color (U) RED Abnormal [facility], Inc.; [facility] [place], Inc. Laboratory - Urinalysison Glucose Test strip (U) [Mass/Vol] Negative Normal [facility], [facility].; [facility] [place], Inc. Leukocyte esterase Test strip Ql (U) 2+ Abnormal [facility], [facility].; [facility] [place], Inc. Nitrite Ql (U) Positive Abnormal [facility].; [facility] [place], Inc. Protein Ql (U) 1+ Abnormal [facility], [facility].; [facility] [place], Inc. No Panel Informationon 12-12 UA - ODOR Positive Abnormal [facility].; [facility] [place], Inc. UA - UROBILIGEN 0.2 Normal [facility].; [place] Laboratory - Chemistry and C hemistry - challengeon 08-16-2013 Bilirubin Ql (U) Negative Normal [facility], [facility].; [facility] [place], Inc. Ketones Ql (U) Negative Normal [facility], [facility].; [facility] [place], Inc. pH (U) 6.0 [pH] Normal [facility], [facility].; [facility] [place], Inc. Specific gravity (U) [Rel density] 1.020 Normal [facility], [facility].; [facility] [place], Inc. Laboratory - Hematology and Cell countson 08-16-2013 Hemoglobin Ql (U) Negative Normal [facility], [facility].; [facility] [place], Inc. Laboratory - Specimen inform ationon 08-16-2013 Appearance (U) CLOUDY Abnormal [facility], Inc.; [facility] [place], Inc. Color (U) YELLOW Normal [email or web address].; [facility] [place], Inc. Laboratory - Urinalysison Glucose Test strip (U) [Mass/Vol] Negative Normal [facility].; [facility] [place], [facility]. Leukocyte esterase Test strip Ql (U) 2+ Abnormal [facility].; [facility] [place], Inc. Nitrite Ql (U) Positive Abnormal [facility].; [facility] [place], Inc. Protein Ql (U) Negative Normal [facility] Center[facility].; [facility] [place], Inc. No Panel Informationon 08-16 UA - ODOR Positive Abnormal [facility].; [facility] [place], [facility]. UA - UROBILIGEN 0.2 Normal [facility].; [facility] [place], [facility]. Laboratory - Chemistry and C hemistry - challengeon 04-07-2013 Bilirubin Ql (U) Negative Normal [facility].; [facility] [place], Inc. Ketones Ql (U) Negative Normal [facility].; [facility] [place], Inc. pH (U) 5.0 [pH] Normal [facility].; [facility] [place], [facility]. Specific gravity (U) [Rel density] 1.015 Normal [facility].; [facility] [place], Inc. Laboratory - Hematology and Cell countson 04-07-2013 Hemoglobin Ql (U) NON HEMOLYZED MODERATE Abnormal [facility].; [facility] [place], Inc. Laboratory - Specimen inform ationon 04-07-2013 Appearance (U) CLOUDY Abnormal [facility].; [facility] [place], Inc. Color (U) YELLOW Normal [facility].; [facility] [place], Inc. Laboratory - Urinalysison Glucose Test strip (U) [Mass/Vol] Negative Normal [email or web address].; [facility] [place], Inc. Leukocyte esterase Test strip Ql (U) 1+ Abnormal [facility] [employer].; [facility] [place], Inc. Nitrite Ql (U) Positive Abnormal [facility], [facility].; [facility] [place], Inc. Protein Ql (U) 1+ Abnormal [facility] Center[facility].; [facility] [place], Inc. No Panel Informationon 04-07 Culture Urine SEE BELOW Normal [facility], [facility].; [facility] [place], Inc. UA - ODOR Positive Abnormal [facility].; [facility] [place], Inc. UA - UROBILIGEN 0.2 Normal [facility].; [facility] [place], Inc. Laboratory - Chemistry and C hemistry - challengeon 08-15-2012 Bilirubin Ql (U) Negative Normal [facility], [facility].; [facility] [place], Inc. Ketones Ql (U) Negative Normal [facility], [facility].; [facility] [place], Inc. pH (U) 6.0 [pH] Normal [facility].; [facility] [place], Inc. Specific gravity (U) [Rel density] 1.020 Normal [facility].; [facility] [place], Inc. Laboratory - Hematology and Cell countson 08-15-2012 Hemoglobin Ql (U) Negative Normal [facility], [facility].; [facility] [place], Inc. Laboratory - Specimen inform ationon 08-15-2012 Appearance (U) CLOUDY Abnormal [facility].; [facility] [place], Inc. Color (U) YELLOW Normal [facility].; [facility] [place], Inc. Laboratory - Urinalysison Glucose Test strip (U) [Mass/Vol] Negative Normal [facility].; [facility] [place], Inc. Leukocyte esterase Test strip Ql (U) 2+ Abnormal [facility], [facility].; [facility] [place], Inc. Nitrite Ql (U) Positive Abnormal [facility], [facility].; [facility] [place], Inc. Protein Ql (U) 2+ Abnormal [facility], Inc.; [facility] [place], Inc. No Panel Informationon 08-15 UA - ODOR Positive Abnormal [facility], [facility].; [facility] [place], Inc. UA - UROBILIGEN 0.2 Normal [facility], [facility].; [facility] [place], Inc. Laboratory - Chemistry and C hemistry - challengeon 11-03-2010 Bilirubin Ql (U) Negative Normal [facility], Inc.; [facility] [place], Inc. Ketones Ql (U) Negative Normal [facility], [facility].; [facility] [place], Inc. pH (U) 5.0 [pH] Normal [facility], [facility].; [facility] [place], [facility]. Specific gravity (U) [Rel density] 1.025 Normal [facility].; [facility] [place], [facility]. Laboratory - Hematology and Cell countson 11-03-2010 Hemoglobin Ql (U) HEMOLYZED 2+ Abnormal [facility].; [facility] [place], Inc. Laboratory - Specimen inform ationon 11-03-2010 Appearance (U) CLOUDY Abnormal [facility], [employer].; [facility] [place], Inc. Color (U) LOWELL Normal [facility].; [facility] [place], Inc. Laboratory - Urinalysison Glucose Test strip (U) [Mass/Vol] Negative Normal [facility], [facility].; [facility] [place], Inc. Leukocyte esterase Test strip Ql (U) 2+ Abnormal [facility].; [facility] [place], Inc. Nitrite Ql (U) Positive Abnormal [facility], Inc.; [facility] [place], Inc. Protein Ql (U) TRACE Normal [facility], [employer].; [facility] [place], Inc. No Panel Informationon 11-03 UA - ODOR Positive Abnormal [facility], [facility].; [facility] [place], Inc. UA - UROBILIGEN 0.2 Normal [facility], [facility].; [facility] [place], Inc. Laboratory - Chemistry and C hemistry - challengeon 07-03-2010 Bilirubin Ql (U) Negative Normal [facility], [facility].; [facility] [place], Inc. Ketones Ql (U) Negative Normal [facility], Inc.; [facility] [place], Inc. pH (U) 5.0 [pH] Normal [facility], [facility].; [facility] [place], Inc. Specific gravity (U) [Rel density] 1.005 Normal [email or web address].; [employer] [facility] Laboratory - Hematology and Cell countson 07-03-2010 Hemoglobin Ql (U) HEMOLYZED 1+ Abnormal [email or web address].; [facility] [place], Inc. Laboratory - Specimen inform ationon 07-03-2010 Appearance (U) CLOUDY Abnormal [facility], [employer] [facility] Color (U) YELLOW Normal [email or web address].; [facility] [facility] Laboratory - Urinalysison Glucose Test strip (U) [Mass/Vol] Negative Normal [email or web address].; [facility] [place], Inc. Leukocyte esterase Test strip Ql (U) 1+ Abnormal [email or web address].; [employer] [facility] Nitrite Ql (U) Positive Abnormal [facility], [employer].; [facility] Protein Ql (U) Negative Normal [facility] [email or web address].; [place] [facility] No Panel Informationon 07-03 UA - ODOR Positive Abnormal [email or web address].; [place] [employer] [facility] [employer] [facility] UA - UROBILIGEN 0.2 Normal [email or web address].; [employer] [facility] [employer] [facility] Laboratory - Chemistry and C hemistry - challengeon 06-19-2010 Bilirubin Ql (U) Negative Normal [facility], [facility].; [employer] [facility] Ketones Ql (U) Negative Normal [facility], Inc.; [place] - [facility] [employer] [facility] pH (U) 7.0 [pH] Normal [facility].; [facility] [place], Inc. Specific gravity (U) [Rel density] 1.005 Normal [email or web address].; [facility] [place], [facility]. Laboratory - Hematology and Cell countson 06-19-2010 Hemoglobin Ql (U) Negative Normal [facility], [employer].; [facility] [place], Inc. Laboratory - Specimen inform ationon 06-19-2010 Appearance (U) CLEAR Normal [facility] [email or web address].; [facility] [place], Inc. Color (U) YELLOW Normal [facility].; [facility] [place], Inc. Laboratory - Urinalysison Glucose Test strip (U) [Mass/Vol] Negative Normal [facility].; [facility] [place], Inc. Leukocyte esterase Test strip Ql (U) 1+ Abnormal [facility].; [facility] [place], Inc. Nitrite Ql (U) Negative Normal [facility] [email or web address].; [facility] [place], Inc[facility] Protein Ql (U) Negative Normal [facility] [email or web address].; [facility] [place], Inc. No Panel Informationon 06-19 UA - ODOR Negative Normal [facility].; [facility] [place], Inc. UA - UROBILIGEN 0.2 Normal [facility].; [facility] [place], Inc[facility] Bacteria identified Anaer cx Nom (Unsp spec) Anaerobic Culture Anaerobic cocci [facility] Work Phone: Bacteria identified Cx Nom ( Wound) Wound Culture Staphylococcus aureus [facility] Work Phone: [phone] Wound Culture Corynebacterium striatum [facility] Work Phone: [phone] Gram stain for investigation of transfusion reaction Microscopic observation Gram stain Nom (Unsp spec) [facility] Work Phone: Vital Signs Date Time Vital Sign Value Performing Clinician Faci lity 03-28-2025 11:29-0400 Body temperature 97 [degF] Kassie Polanco [employer] TRAINING MANAGER-C Work Phone: [facility] 03-28-2025 11:29-0400 Diastolic blood pressure 97 mm[Hg] Kassie Polanco HUMAN RESOURCES TRAINING MANAGER-C Work Phone: [facility] 03-28-2025 11:29-0400 Heart rate 100 /min Kassie Sherri HUMAN RESOURCES TRAINING MANAGER-C Work Phone: [facility] 03-28-2025 11:29-0400 Respiratory rate 18 /min Kassie Sherri HUMAN RESOURCES TRAINING MANAGER-C Work Phone: [facility] 03-28-2025 11:29-0400 Systolic blood pressure 150 mm[Hg] Kassie Sherri HUMAN RESOURCES TRAINING MANAGER-C Work Phone: [facility] 03-07-2025 11:23-0400 Body temperature 97.8 [degF] Kassie Sherri HUMAN RESOURCES TRAINING MANAGER-C Work Phone: [facility] 03-07-2025 11:23-0400 Diastolic blood pressure 82 mm[Hg] Kassie Sherri HUMAN RESOURCES TRAINING MANAGER-C Work Phone: [facility] 03-07-2025 11:23-0400 Heart rate 98 /min Kassie Sherri HUMAN RESOURCES TRAINING MANAGER-C Work Phone: [facility] 03-07-2025 11:23-0400 Respiratory rate 18 /min Kassie Sherri HUMAN RESOURCES TRAINING MANAGER-C Work Phone: [facility] 03-07-2025 11:23-0400 Systolic blood pressure 116 mm[Hg] Kassie Mtzler HUMAN RESOURCES TRAINING MANAGER-C Work Phone: [facility] 02-21-2025 10:53-0400 Body temperature 97.8 [degF] Kassie Sherri HUMAN RESOURCES TRAINING MANAGER-C Work Phone: [facility] 02-21-2025 10:53-0400 Diastolic blood pressure 85 mm[Hg] Kassie Sherri HUMAN RESOURCES TRAINING MANAGER-C Work Phone: [facility] 02-21-2025 10:53-0400 Heart rate 99 /min Kassie Mtzler HUMAN RESOURCES TRAINING MANAGER-C Work Phone: [facility] 02-21-2025 10:53-0400 Respiratory rate 18 /min Kassie Polanco HUMAN RESOURCES TRAINING MANAGER-C Work Phone: [facility] 02-21-2025 10:53-0400 Systolic blood pressure 135 mm[Hg] Kassie Polanco HUMAN RESOURCES TRAINING MANAGER-C Work Phone: [facility] 01-31-2025 10:03-0400 Body temperature 97.6 [degF] Kassie Polanco HUMAN RESOURCES TRAINING MANAGER-C Work Phone: [facility] 01-31-2025 10:03-0400 Diastolic blood pressure 86 mm[Hg] Kassie Polanco HUMAN RESOURCES TRAINING MANAGER-C Work Phone: [facility] 01-31-2025 10:03-0400 Heart rate 102 /min Kassie Polanco HUMAN RESOURCES TRAINING MANAGER-C Work Phone: [facility] 01-31-2025 10:03-0400 Respiratory rate 16 /min Kassie Polanco HUMAN RESOURCES TRAINING MANAGER-C Work Phone: [facility] 01-31-2025 10:03-0400 Systolic blood pressure 115 mm[Hg] Kassie Polanco HUMAN RESOURCES TRAINING MANAGER-C Work Phone: [facility] 01-30-2025 09:14-0400 Body height 152.4 cm Kassie Polanco HUMAN RESOURCES TRAINING MANAGER-C Work Phone: [facility] 01-30-2025 09:14-0400 Body mass index (BMI) [Ratio] 26.4 kg/m2 Kassie Polanco HUMAN RESOURCES TRAINING MANAGER-C Work Phone: [facility] [facility] 01-30-2025 09:14-0400 Body weight 61.23 kg Kassie Polanco HUMAN RESOURCES TRAINING MANAGER-C Work Phone: [facility] 01-30-2025 09:14-0400 Diastolic blood pressure 81 mm[Hg] Kassie Polanco HUMAN RESOURCES TRAINING MANAGER-C Work Phone: [facility] 01-30-2025 09:14-0400 Respiratory rate 18 /min Kassie Polanco HUMAN RESOURCES TRAINING MANAGER-C Work Phone: [facility] 01-30-2025 09:14-0400 SaO2% (BldA) [Mass fraction] 95 % Kassie Polanco HUMAN RESOURCES TRAINING MANAGER-C Work Phone: [facility] 01-30-2025 09:14-0400 Systolic blood pressure 120 mm[Hg] Kassie Polanco HUMAN RESOURCES TRAINING MANAGER-C Work Phone: [facility] 01-24-2025 10:37-0400 Body temperature 96.4 [degF] Kassie Mtzler HUMAN RESOURCES TRAINING MANAGER-C Work Phone: [facility] 01-24-2025 10:37-0400 Diastolic blood pressure 85 mm[Hg] Kassie Mtzler HUMAN RESOURCES TRAINING MANAGER-C Work Phone: [facility] 01-24-2025 10:37-0400 Heart rate 110 /min Kassie Polanco HUMAN RESOURCES TRAINING MANAGER-C Work Phone: [facility] 01-24-2025 10:37-0400 Respiratory rate 18 /min Kassie Sherri HUMAN RESOURCES TRAINING MANAGER-C Work Phone: [facility] 01-24-2025 10:37-0400 Systolic blood pressure 116 mm[Hg] Kassie Mtzler HUMAN RESOURCES TRAINING MANAGER-C Work Phone: [facility] 01-22-2025 12:55-0400 Body temperature 99.2 [degF] Kassie Mtzler HUMAN RESOURCES TRAINING MANAGER-C Work Phone: [facility] 01-22-2025 12:55-0400 Diastolic blood pressure 85 mm[Hg] Kassie Mtzler HUMAN RESOURCES TRAINING MANAGER-C Work Phone: [facility] 01-22-2025 12:55-0400 Heart rate 114 /min Kassie Polanco HUMAN RESOURCES TRAINING MANAGER-C Work Phone: [facility] 01-22-2025 12:55-0400 Respiratory rate 18 /min Kassie Mtzler HUMAN RESOURCES TRAINING MANAGER-C Work Phone: [facility] 01-22-2025 12:55-0400 SaO2% (BldA) [Mass fraction] 100 % Kassie Polanco HUMAN RESOURCES TRAINING MANAGER-C Work Phone: [facility] 01-22-2025 12:55-0400 Systolic blood pressure 115 mm[Hg] Kassie Polanco HUMAN RESOURCES TRAINING MANAGER-C Work Phone: [facility] 01-22-2025 10:01-0400 Body height 152.4 cm Kassie Polanco HUMAN RESOURCES TRAINING MANAGER-C Work Phone: [facility] 01-22-2025 10:01-0400 Body mass index (BMI) [Ratio] 26.4 kg/m2 Kassie Polanco HUMAN RESOURCES TRAINING MANAGER-C Work Phone: [facility] 01-22-2025 10:01-0400 Body weight 61.23 kg Kassie Polanco HUMAN RESOURCES TRAINING MANAGER-C Work Phone: [facility] 01-17-2025 10:03-0400 Body temperature 96.4 [degF] Kassie Polanco HUMAN RESOURCES TRAINING MANAGER-C Work Phone: [facility] 01-17-2025 10:03-0400 Diastolic blood pressure 83 mm[Hg] Kassie Polanco HUMAN RESOURCES TRAINING MANAGER-C Work Phone: [facility] 01-17-2025 10:03-0400 Heart rate 100 /min Kassie Polanco HUMAN RESOURCES TRAINING MANAGER-C Work Phone: [facility] 01-17-2025 10:03-0400 Respiratory rate 18 /min Kassie Polanco HUMAN RESOURCES TRAINING MANAGER-C Work Phone: [facility] 01-17-2025 10:03-0400 Systolic blood pressure 139 mm[Hg] Kassie Polanco HUMAN RESOURCES TRAINING MANAGER-C Work Phone: [facility] 01-03-2025 08:22-0400 Body temperature 97.1 [degF] Kassie Polanco HUMAN RESOURCES TRAINING MANAGER-C Work Phone: [facility] 01-03-2025 08:22-0400 Diastolic blood pressure 76 mm[Hg] Kassie Polanco HUMAN RESOURCES TRAINING MANAGER-C Work Phone: [facility] 01-03-2025 08:22-0400 Heart rate 106 /min Kassie Sherri HUMAN RESOURCES TRAINING MANAGER-C Work Phone: [facility] 01-03-2025 08:22-0400 Respiratory rate 18 /min Kassie Sherri HUMAN RESOURCES TRAINING MANAGER-C Work Phone: [facility] 01-03-2025 08:22-0400 Systolic blood pressure 117 mm[Hg] Kassie Sherri HUMAN RESOURCES TRAINING MANAGER-C Work Phone: [facility] 12-13-2024 11:11-0400 Body temperature 97.1 [degF] Kassie Sherri HUMAN RESOURCES TRAINING MANAGER-C Work Phone: [facility] 12-13-2024 11:11-0400 Diastolic blood pressure 95 mm[Hg] Kassie Sherri HUMAN RESOURCES TRAINING MANAGER-C Work Phone: [facility] 12-13-2024 11:11-0400 Heart rate 96 /min Kassie Sherri HUMAN RESOURCES TRAINING MANAGER-C Work Phone: [facility] 12-13-2024 11:11-0400 Respiratory rate 18 /min Kasise Sherri HUMAN RESOURCES TRAINING MANAGER-C Work Phone: [facility] 12-13-2024 11:11-0400 Systolic blood pressure 131 mm[Hg] Kassie Sherri HUMAN RESOURCES TRAINING MANAGER-C Work Phone: [facility] 11-29-2024 10:50-0400 Body temperature 98.2 [degF] Kassie Sherri HUMAN RESOURCES TRAINING MANAGER-C Work Phone: [facility] 11-29-2024 10:50-0400 Diastolic blood pressure 83 mm[Hg] Kassie Sherri HUMAN RESOURCES TRAINING MANAGER-C Work Phone: [facility] 11-29-2024 10:50-0400 Heart rate 100 /min Kassie Sherri HUMAN RESOURCES TRAINING MANAGER-C Work Phone: [facility] 11-29-2024 10:50-0400 Respiratory rate 18 /min Kassie Sherri HUMAN RESOURCES TRAINING MANAGER-C Work Phone: [facility] 11-29-2024 10:50-0400 Systolic blood pressure 118 mm[Hg] Kassie Polanco HUMAN RESOURCES TRAINING MANAGER-C Work Phone: [facility] 08-21-2024 13:52-0400 Body height 141.99 cm Kassie Polanco HUMAN RESOURCES TRAINING MANAGER-C Work Phone: [facility] 08-21-2024 13:52-0400 Body mass index (BMI) [Ratio] 30.4 kg/m2 Kassie Polanco HUMAN RESOURCES TRAINING MANAGER-C Work Phone: [facility] 08-21-2024 13:52-0400 Body weight 61.23 kg Kassie Polanco HUMAN RESOURCES TRAINING MANAGER-C Work Phone: [facility] 08-21-2024 13:52-0400 Diastolic blood pressure 90 mm[Hg] Kassie Polanco HUMAN RESOURCES TRAINING MANAGER-C Work Phone: [facility] 08-21-2024 13:52-0400 Heart rate 114 /min Kassie oPlanco HUMAN RESOURCES TRAINING MANAGER-C Work Phone: [facility] 08-21-2024 13:52-0400 Respiratory rate 18 /min Kassie Polanco HUMAN RESOURCES TRAINING MANAGER-C Work Phone: [facility] 08-21-2024 13:52-0400 SaO2% (BldA) [Mass fraction] 94 % Kassie Polanco HUMAN RESOURCES TRAINING MANAGER-C Work Phone: [facility] 08-21-2024 13:52-0400 Systolic blood pressure 149 mm[Hg] Kassie Polanco HUMAN RESOURCES TRAINING MANAGER-C Work Phone: [facility] 09-23-2022 11:14-0400 Body temperature 97.5 [degF] HUMAN RESOURCES TRAINING MANAGER-C Kassie Polanco HUMAN RESOURCES TRAINING MANAGER Work Phone: [facility] 09-23-2022 11:14-0400 Diastolic blood pressure 78 mm[Hg] HUMAN RESOURCES TRAINING MANAGER-C Kassie Polanco HUMAN RESOURCES TRAINING MANAGER Work Phone: [facility] 09-23-2022 11:14-0400 Heart rate 101 /min HUMAN RESOURCES TRAINING MANAGER-C Kassie Polanco HUMAN RESOURCES TRAINING MANAGER Work Phone: [facility] 09-23-2022 11:14-0400 Respiratory rate 16 /min HUMAN RESOURCES TRAINING MANAGER-C Kassie Polanco HUMAN RESOURCES TRAINING MANAGER Work Phone: [facility] 09-23-2022 11:14-0400 Systolic blood pressure 108 mm[Hg] HUMAN RESOURCES TRAINING MANAGER-C Kassie Polanco HUMAN RESOURCES TRAINING MANAGER Work Phone: [facility] 08-26-2022 10:57-0400 Diastolic blood pressure 80 mm[Hg] HUMAN RESOURCES TRAINING MANAGER-C Kassie Polanco HUMAN RESOURCES TRAINING MANAGER Work Phone: [facility] 08-26-2022 10:57-0400 Heart rate 91 /min HUMAN RESOURCES TRAINING MANAGER-C Kassie Polanco HUMAN RESOURCES TRAINING MANAGER Work Phone: [facility] 08-26-2022 10:57-0400 Respiratory rate 16 /min HUMAN RESOURCES TRAINING MANAGER-C Kassie Polanco HUMAN RESOURCES TRAINING MANAGER Work Phone: [facility] 08-26-2022 10:57-0400 Systolic blood pressure 121 mm[Hg] HUMAN RESOURCES TRAINING MANAGER-C Kassie Polanco HUMAN RESOURCES TRAINING MANAGER Work Phone: [facility] 08-12-2022 11:18-0500 Body temperature 97 [degF] HUMAN RESOURCES TRAINING MANAGER-C Kassie Polanco HUMAN RESOURCES TRAINING MANAGER Work Phone: [facility] 08-04-2022 13:26-0500 Body height 137.2 cm Nawaf Quinn M D Work Phone: [facility] 08-04-2022 13:26-0500 Body weight 68.04 kg Nawaf Quinn M D Work Phone: [facility] 07-29-2022 10:52-0500 Body temperature 97.5 [degF] HUMAN RESOURCES TRAINING MANAGER-C Kassie Polanco HUMAN RESOURCES TRAINING MANAGER Work Phone: [facility] 07-29-2022 10:52-0500 Diastolic blood pressure 91 mm[Hg] HUMAN RESOURCES TRAINING MANAGER-C Kassie Polanco HUMAN RESOURCES TRAINING MANAGER Work Phone: [facility] 07-29-2022 10:52-0500 Heart rate 107 /min HUMAN RESOURCES TRAINING MANAGER-C Kassie Polanco HUMAN RESOURCES TRAINING MANAGER Work Phone: [facility] 07-29-2022 10:52-0500 Respiratory rate 20 /min HUMAN RESOURCES TRAINING MANAGER-C Kassie Sherri HUMAN RESOURCES TRAINING MANAGER Work Phone: [facility] 07-29-2022 10:52-0500 Systolic blood pressure 149 mm[Hg] HUMAN RESOURCES TRAINING MANAGER-C Kassie Sherri HUMAN RESOURCES TRAINING MANAGER Work Phone: [facility] 07-01-2022 10:44-0500 Body temperature 97.9 [degF] HUMAN RESOURCES TRAINING MANAGER-C Kassie Polanco HUMAN RESOURCES TRAINING MANAGER Work Phone: [facility] 07-01-2022 10:44-0500 Diastolic blood pressure 81 mm[Hg] HUMAN RESOURCES TRAINING MANAGER-C Kassie Polanco HUMAN RESOURCES TRAINING MANAGER Work Phone: [facility] 07-01-2022 10:44-0500 Heart rate 107 /min HUMAN RESOURCES TRAINING MANAGER-C Kassie Polanco HUMAN RESOURCES TRAINING MANAGER Work Phone: [facility] 07-01-2022 10:44-0500 Respiratory rate 20 /min HUMAN RESOURCES TRAINING MANAGER-C Kassie Polanco HUMAN RESOURCES TRAINING MANAGER Work Phone: [facility] 07-01-2022 10:44-0500 Systolic blood pressure 129 mm[Hg] HUMAN RESOURCES TRAINING MANAGER-C Kassie Polanco HUMAN RESOURCES TRAINING MANAGER Work Phone: [facility] 06-03-2022 10:44-0500 Body temperature 96.6 [degF] HUMAN RESOURCES TRAINING MANAGER-C Kassie Polanco HUMAN RESOURCES TRAINING MANAGER Work Phone: [facility] 06-03-2022 10:44-0500 Diastolic blood pressure 84 mm[Hg] HUMAN RESOURCES TRAINING MANAGER-C Kassie Polanco HUMAN RESOURCES TRAINING MANAGER Work Phone: [facility] 06-03-2022 10:44-0500 Heart rate 100 /min HUMAN RESOURCES TRAINING MANAGER-C Kassie Polanco HUMAN RESOURCES TRAINING MANAGER Work Phone: [facility] 06-03-2022 10:44-0500 Respiratory rate 19 /min HUMAN RESOURCES TRAINING MANAGER-C Kassie Polanco HUMAN RESOURCES TRAINING MANAGER Work Phone: [facility] 06-03-2022 10:44-0500 Systolic blood pressure 145 mm[Hg] HUMAN RESOURCES TRAINING MANAGER-C Kassie Polanco HUMAN RESOURCES TRAINING MANAGER Work Phone: [facility] 04-22-2022 11:34-0500 Body temperature 97.5 [degF] HUMAN RESOURCES TRAINING MANAGER-C Kassie Polanco HUMAN RESOURCES TRAINING MANAGER Work Phone: [facility] 04-22-2022 11:34-0500 Diastolic blood pressure 95 mm[Hg] HUMAN RESOURCES TRAINING MANAGER-C Kassie Polanco HUMAN RESOURCES TRAINING MANAGER Work Phone: [facility] 04-22-2022 11:34-0500 Heart rate 93 /min HUMAN RESOURCES TRAINING MANAGER-C Kassie Polanco HUMAN RESOURCES TRAINING MANAGER Work Phone: [facility] 04-22-2022 11:34-0500 Respiratory rate 18 /min HUMAN RESOURCES TRAINING MANAGER-C Kassie Polanco HUMAN RESOURCES TRAINING MANAGER Work Phone: [facility] 04-22-2022 11:34-0500 Systolic blood pressure 135 mm[Hg] HUMAN RESOURCES TRAINING MANAGER-C Kassie Polanco HUMAN RESOURCES TRAINING MANAGER Work Phone: [facility] 03-25-2022 11:26-0400 Body temperature 96.8 [degF] HUMAN RESOURCES TRAINING MANAGER-C Kassie Polanco HUMAN RESOURCES TRAINING MANAGER Work Phone: [facility] Work Phone: 03-25-2022 11:26-0400 Diastolic blood pressure 85 mm[Hg] HUMAN RESOURCES TRAINING MANAGER-C Kassie Polanco HUMAN RESOURCES TRAINING MANAGER Work Phone: [facility] Work Phone: 03-25-2022 11:26-0400 Heart rate 72 /min HUMAN RESOURCES TRAINING MANAGER-C Kassie Polanco HUMAN RESOURCES TRAINING MANAGER Work Phone: [facility] Work Phone: 03-25-2022 11:26-0400 Respiratory rate 20 /min HUMAN RESOURCES TRAINING MANAGER-C Kassie Polanco HUMAN RESOURCES TRAINING MANAGER Work Phone: [facility] Work Phone: 03-25-2022 11:26-0400 Systolic blood pressure 160 mm[Hg] HUMAN RESOURCES TRAINING MANAGER-C Kassie Polanco HUMAN RESOURCES TRAINING MANAGER Work Phone: [facility] Work Phone: 02-25-2022 10:40-0400 Body temperature 97.1 [degF] HUMAN RESOURCES TRAINING MANAGER-C Kassie Polanco HUMAN RESOURCES TRAINING MANAGER Work Phone: [facility] Work Phone: 02-25-2022 10:40-0400 Diastolic blood pressure 105 mm[Hg] HUMAN RESOURCES TRAINING MANAGER-C Kassie Polanco HUMAN RESOURCES TRAINING MANAGER Work Phone: [facility] Work Phone: 02-25-2022 10:40-0400 Heart rate 108 /min HUMAN RESOURCES TRAINING MANAGER-C Kassie Polanco HUMAN RESOURCES TRAINING MANAGER Work Phone: [facility] Work Phone: 02-25-2022 10:40-0400 Respiratory rate 20 /min HUMAN RESOURCES TRAINING MANAGER-C Kassie Polanco HUMAN RESOURCES TRAINING MANAGER Work Phone: [facility] Work Phone: 02-25-2022 10:40-0400 Systolic blood pressure 143 mm[Hg] HUMAN RESOURCES TRAINING MANAGER-C Kassie Polanco HUMAN RESOURCES TRAINING MANAGER Work Phone: [facility] Work Phone: 01-28-2022 13:29-0400 Body temperature 97.2 [degF] HUMAN RESOURCES TRAINING MANAGER-C Kassie Polanco HUMAN RESOURCES TRAINING MANAGER Work Phone: [facility] Work Phone: 01-28-2022 13:29-0400 Diastolic blood pressure 91 mm[Hg] HUMAN RESOURCES TRAINING MANAGER-C Kassie Polanco HUMAN RESOURCES TRAINING MANAGER Work Phone: [facility] Work Phone: 01-28-2022 13:29-0400 Heart rate 109 /min HUMAN RESOURCES TRAINING MANAGER-C Kassie Polanco HUMAN RESOURCES TRAINING MANAGER Work Phone: [facility] Work Phone: 01-28-2022 13:29-0400 Systolic blood pressure 133 mm[Hg] HUMAN RESOURCES TRAINING MANAGER-C Kassie Polanco HUMAN RESOURCES TRAINING MANAGER Work Phone: [facility] Work Phone: 01-21-2022 10:47-0400 Body temperature 98.8 [degF] HUMAN RESOURCES TRAINING MANAGER-C Kassie Polanco HUMAN RESOURCES TRAINING MANAGER Work Phone: [facility] Work Phone: 01-21-2022 10:47-0400 Diastolic blood pressure 83 mm[Hg] HUMAN RESOURCES TRAINING MANAGER-C Kassie Polanco HUMAN RESOURCES TRAINING MANAGER Work Phone: [facility] Work Phone: 01-21-2022 10:47-0400 Heart rate 112 /min HUMAN RESOURCES TRAINING MANAGER-C Kassie Polanco HUMAN RESOURCES TRAINING MANAGER Work Phone: [facility] Work Phone: 01-21-2022 10:47-0400 Respiratory rate 20 /min HUMAN RESOURCES TRAINING MANAGER-C Kassie Polanco HUMAN RESOURCES TRAINING MANAGER Work Phone: [facility] Work Phone: 01-21-2022 10:47-0400 Systolic blood pressure 134 mm[Hg] HUMAN RESOURCES TRAINING MANAGER-C Kassie Polanco HUMAN RESOURCES TRAINING MANAGER Work Phone: [facility] Work Phone: 12-24-2021 10:08-0400 Body temperature 97.6 [degF] HUMAN RESOURCES TRAINING MANAGER-C Kassie Polanco HUMAN RESOURCES TRAINING MANAGER Work Phone: [facility] Work Phone: 12-24-2021 10:08-0400 Diastolic blood pressure 93 mm[Hg] HUMAN RESOURCES TRAINING MANAGER-C Kassie Polanco HUMAN RESOURCES TRAINING MANAGER Work Phone: [facility] Work Phone: 12-24-2021 10:08-0400 Heart rate 95 /min HUMAN RESOURCES TRAINING MANAGER-C Kassie Polanco HUMAN RESOURCES TRAINING MANAGER Work Phone: [facility] Work Phone: 12-24-2021 10:08-0400 Respiratory rate 16 /min HUMAN RESOURCES TRAINING MANAGER-C Kassie Polanco HUMAN RESOURCES TRAINING MANAGER Work Phone: [facility] Work Phone: 12-24-2021 10:08-0400 Systolic blood pressure 132 mm[Hg] HUMAN RESOURCES TRAINING MANAGER-C Kassie Polanco HUMAN RESOURCES TRAINING MANAGER Work Phone: [facility] Work Phone: 11-04-2021 13:39-0400 Body height 141.99 cm HUMAN RESOURCES TRAINING MANAGER-Martell Polanco HUMAN RESOURCES TRAINING MANAGER Work Phone: [facility] Work Phone: 11-04-2021 13:39-0400 Body mass index (BMI) [Ratio] 34.2 kg/m2 HUMAN RESOURCES TRAINING MANAGER-C Kassie Polanco HUMAN RESOURCES TRAINING MANAGER Work Phone: [facility] Work Phone: 11-04-2021 13:39-0400 Body temperature 99.1 [degF] HUMAN RESOURCES TRAINING MANAGER-C Kassie Polanco HUMAN RESOURCES TRAINING MANAGER Work Phone: [facility] Work Phone: 11-04-2021 13:39-0400 Body weight 68.94 kg HUMAN RESOURCES TRAINING MANAGER-C Kassie Polanco HUMAN RESOURCES TRAINING MANAGER Work Phone: [facility] Work Phone: 11-04-2021 13:39-0400 Diastolic blood pressure 104 mm[Hg] HUMAN RESOURCES TRAINING MANAGER-C Kassie Polanco HUMAN RESOURCES TRAINING MANAGER Work Phone: [facility] Work Phone: 11-04-2021 13:39-0400 Heart rate 100 /min HUMAN RESOURCES TRAINING MANAGER-C Kassie Polanco HUMAN RESOURCES TRAINING MANAGER Work Phone: [facility] Work Phone: 11-04-2021 13:39-0400 Respiratory rate 18 /min HUMAN RESOURCES TRAINING MANAGER-C Kassie Polanco HUMAN RESOURCES TRAINING MANAGER Work Phone: [facility] Work Phone: 11-04-2021 13:39-0400 SaO2% (BldA) [Mass fraction] 98 % HUMAN RESOURCES TRAINING MANAGER-Martell Polanco HUMAN RESOURCES TRAINING MANAGER Work Phone: [facility] Work Phone: 11-04-2021 13:39-0400 Systolic blood pressure 153 mm[Hg] HUMAN RESOURCES TRAINING MANAGEREllie Polanco Work Phone: [facility] Work Phone: 10-03-2018 16:06-0400 Diastolic blood pressure 79 mm[Hg] Shantell Lopez RN [employer] Comment on above: Patient Position: Sitting; Cuff Location : Left Arm; Cuff Size: Large 10-03-2018 16:06-0400 Heart rate 90 /min Shantell Lopez RN [employer] Comment on above: Pattern: Regular 10-03-2018 16:06-0400 Systolic blood pressure 114 mm[Hg] Shantell Lopez RN [employer] Comment on above: Patient Position: Sitting; Cuff Location : Left Arm; Cuff Size: Large 08-11-2018 19:12-0500 Body temperature 97.8 [degF] [employer] Comment on above: Method: Oral 08-11-2018 19:12-0500 Diastolic blood pressure 89 mm[Hg] [employer] Comment on above: Patient Position: Sitting; Cuff Location : Left Arm; Cuff Size: Standard 08-11-2018 19:12-0500 Heart rate 102 /min MARYKlutchYER [employer] Comment on above: Pattern: Regular 08-11-2018 19:12-0500 Systolic blood pressure 124 mm[Hg] [employer] Comment on above: Patient Position: Sitting; Cuff Location : Left Arm; Cuff Size: Standard 06-12-2018 15:01-0500 Body temperature 98 [degF] Roxana Muir RN [employer] Comment on above: Method: Oral 06-12-2018 15:01-0500 Diastolic blood pressure 60 mm[Hg] Roxana Muir RN [facility] [employer] [facility] Comment on above: Patient Position: Sitting; Cuff Location : Left Arm; Cuff Size: Standard 06-12-2018 15:01-0500 Heart rate 93 /min Roxana Muir RN [facility] [employer] [facility] Comment on above: Pattern: Regular 06-12-2018 15:01-0500 Inhaled oxygen concentration 21 % Roxana Muir RN [facility] [employer] [facility] [employer] Comment on above: Room air 06-12-2018 15:01-0500 SaO2% (BldA) [Mass fraction] 91 % Roxana Muir RN [facility] [employer] [facility] [employer] 06-12-2018 15:01-0500 Systolic blood pressure 92 mm[Hg] Roxana Muir RN [facility] [employer] [facility] [employer] Comment on above: Patient Position: Sitting; Cuff Location : Left Arm; Cuff Size: Standard 03-28-2018 15:08-0400 Inhaled oxygen concentration 21 % Shantell Lopez RN [facility] [employer] [facility] Comment on above: Room air 03-28-2018 15:08-0400 SaO2% (BldA) [Mass fraction] 95 % Shantell Lopez RN [facility] [employer] [facility] [employer] [facility] [employer] 03-28-2018 14:20-0400 Body temperature 98 [degF] Shantell Lopez RN [facility] [employer] [facility] [employer] Comment on above: Method: Oral 03-28-2018 14:20-0400 Diastolic blood pressure 86 mm[Hg] Shantell Lopez RN [facility] [employer] [facility] [employer] Comment on above: Patient Position: Sitting; Cuff Location : Left Arm; Cuff Size: Large 03-28-2018 14:20-0400 Heart rate 108 /min Shantell Lopez RN [facility] [employer] [facility] [employer] Comment on above: Pattern: Regular 03-28-2018 14:20-0400 Systolic blood pressure 121 mm[Hg] [email or web address] [facility] [employer] [facility], [employer] Comment on above: Patient Position: Sitting; Cuff Location : Left Arm; Cuff Size: Large 10-10-2017 10:40-0400 Body temperature 97.4 [degF] Cherry Khan [email or web address] [employer] [facility] [employer] Comment on above: Method: Oral 10-10-2017 10:40-0400 Body weight 66.68 kg Cherry Khan RN [email or web address] [employer] [facility] [employer] [facility] [employer] 10-10-2017 10:40-0400 Diastolic blood pressure 90 mm[Hg] Cherry Khan RN [facility] Valley[facility]InScan.; [employer] [facility] [place] [employer] [facility], Inc[facility] Comment on above: Patient Position: Sitting; Cuff Location : Left Arm; Cuff Size: Large 10-10-2017 10:40-0400 Heart rate 116 /min Cherry Khan RN [facility] Valley[facility]InScan.; [employer] [facility] [place] [employer]. Comment on above: Pattern: Regular 10-10-2017 10:40-0400 Systolic blood pressure 141 mm[Hg] Cherry Khan RN [facility] ValleyHandInScan.; [employer] [facility] [place] [employer], [employer]. Comment on above: Patient Position: Sitting; Cuff Location : Left Arm; Cuff Size: Large 09-27-2017 16:07-0400 Body height 147.32 cm Nolan WOLF MD Work Phone: [facility] [employer].; [employer] [facility] [employer], [employer]. 09-27-2017 16:07-0400 Body mass index (BMI) [Ratio] 29.89 kg/m2 Nolan WOLF MD Work Phone: [facility].; [employer] [facility] [employer], [employer]. 09-27-2017 16:07-0400 Body surface area Derived from formula 1.58 m2 Nolan WOLF MD Work Phone: [employer] [facility] [employer]. 09-27-2017 16:07-0400 Body weight 64.86 kg Nolan WOLF MD Work Phone: [employer] [facility] [employer]. 09-27-2017 16:07-0400 Diastolic blood pressure 82 mm[Hg] Nolan WOLF MD Work Phone: [facility] [facility] [employer] [facility] [employer]. Comment on above: Patient Position: Sitting; Cuff Location : Left Arm; Cuff Size: Large 09-27-2017 16:07-0400 Heart rate 99 /min Nolan WOLF MD Work Phone: [employer] [facility] [employer]. Comment on above: Pattern: Regular 09-27-2017 16:07-0400 Systolic blood pressure 122 mm[Hg] Nolan WOLF MD Work Phone: [facility] [employer] [employer]. Comment on above: Patient Position: Sitting; Cuff Location : Left Arm; Cuff Size: Large 09-13-2017 15:06-0400 Body temperature 97.7 [degF] Nolan WOLF MD Work Phone: [employer]; [employer]. Comment on above: Method: Oral 09-13-2017 15:06-0400 Body weight 64.86 kg Nolan WOLF MD Work Phone: [facility]. 09-13-2017 15:06-0400 Diastolic blood pressure 90 mm[Hg] Nolan WOLF MD Work Phone: [facility] [facility] [employer]. Comment on above: Patient Position: Sitting; Cuff Location : Right Arm; Cuff Size: Large 09-13-2017 15:06-0400 Heart rate 116 /min Nolan WOLF MD Work Phone: [facility] [facility] [employer], [employer]. Comment on above: Pattern: Regular 09-13-2017 15:06-0400 Systolic blood pressure 136 mm[Hg] Nolan WOLF MD Work Phone: [facility], [employer]. Comment on above: Patient Position: Sitting; Cuff Location : Right Arm; Cuff Size: Large 09-20-2016 11:42-0400 Body temperature 97.9 [degF] Roxana Muir RN [facility] [employer], [employer]. Comment on above: Method: Oral 09-20-2016 11:42-0400 Diastolic blood pressure 78 mm[Hg] Roxana Muir RN [facility] [facility] [employer], [employer] Comment on above: Patient Position: Sitting; Cuff Location : Left Arm; Cuff Size: Standard 09-20-2016 11:42-0400 Heart rate 93 /min Roxana Muir RN [facility], [employer]. Comment on above: Pattern: Regular 09-20-2016 11:42-0400 Inhaled oxygen concentration 21 % Roxana Muir RN [facility] [employer], [employer] Comment on above: Room air 09-20-2016 11:42-0400 SaO2% (BldA) [Mass fraction] 93 % Roxana Muri RN [employer], [employer] 09-20-2016 11:42-0400 Systolic blood pressure 136 mm[Hg] Roxana Muir RN [employer], [employer].; [employer], [employer] Comment on above: Patient Position: Sitting; Cuff Location : Left Arm; Cuff Size: Standard 07-20-2016 14:42-0500 Body temperature 97.6 [degF] Shantell Lopez RN [facility] [employer], [employer] Comment on above: Method: Oral 07-20-2016 14:42-0500 Diastolic blood pressure 76 mm[Hg] Shantell Lopez RN [facility], Inc.; [facility], [place], Inc. Comment on above: Patient Position: Sitting; Cuff Location : Right Arm; Cuff Size: Large 07-20-2016 14:42-0500 Heart rate 99 /min Shantell Lopez RN [facility], Inc.; [facility], [place], Inc. Comment on above: Pattern: Regular 07-20-2016 14:42-0500 Systolic blood pressure 108 mm[Hg] Shantell Lopez RN [facility], Inc.; [facility], [place], Inc. Comment on above: Patient Position: Sitting; Cuff Location : Right Arm; Cuff Size: Large 04-09-2016 10:38-0400 Body temperature 98.3 [degF] ENEDINA Roman [facility], Inc.; [facility], Inc. Comment on above: Method: Oral 04-09-2016 10:38-0400 Diastolic blood pressure 77 mm[Hg] ENEDINA MOLINA [facility], Inc.; [facility], Inc. Comment on above: Patient Position: Sitting; Cuff Location : Left Arm; Cuff Size: Standard 04-09-2016 10:38-0400 Heart rate 106 /min ENEDINA MOLINA [facility], Inc.; [facility], Inc. Comment on above: Pattern: Regular 04-09-2016 10:38-0400 Systolic blood pressure 107 mm[Hg] ENEDINA MOLINA [facility], Inc.; [facility], Inc. Comment on above: Patient Position: Sitting; Cuff Location : Left Arm; Cuff Size: Standard 04-07-2016 15:55-0400 Body temperature 98.4 [degF] MARY [facility], Inc.; [employer] [facility], Inc. Comment on above: Method: Oral 04-07-2016 15:55-0400 Diastolic blood pressure 80 mm[Hg] MARY [facility], Inc.; [facility], Inc. Comment on above: Patient Position: Sitting; Cuff Location : Left Arm; Cuff Size: Standard 04-07-2016 15:55-0400 Heart rate 108 /min MARY [facility] [facility] HealthcareMyColorScreen Inc.; [facility]ITAL[facility] [employer] [facility], Inc. Comment on above: Pattern: Regular 04-07-2016 15:55-0400 Systolic blood pressure 112 mm[Hg] MARY TORRES [facility] [employer] [facility], Inc.; [facility] [employer] [facility], Inc. Comment on above: Patient Position: Sitting; Cuff Location : Left Arm; Cuff Size: Standard 2016 10:41-0400 Body temperature 98.2 [degF] Roxana Muir RN [facility] Alter-G [facility] [email or web address].; [employer] [facility] [employer] [facility], Inc. Comment on above: Method: Oral 2016 10:41-0400 Diastolic blood pressure 78 mm[Hg] Roxana Muir RN [facility] [employer] [facility], Inc.; [employer] [facility] [place] [employer] [facility], Inc. Comment on above: Patient Position: Sitting; Cuff Location : Right Arm; Cuff Size: Standard 2016 10:41-0400 Heart rate 98 /min Roxana Muir RN [facility] [place] [employer] [facility], Inc.; [employer] [facility] [place] [employer] [facility], [employer]. Comment on above: Pattern: Regular 2016 10:41-0400 Inhaled oxygen concentration 21 % Roxana Muir RN [facility] [place] [employer] [facility], Inc.; [employer] [facility] [place] [employer] [facility], Inc. Comment on above: Room air 2016 10:41-0400 SaO2% (BldA) [Mass fraction] 97 % Roxana Muir RN [facility] [employer] [facility], Inc.; [employer] [facility] [place] [employer] [facility], Inc[facility] 2016 10:41-0400 Systolic blood pressure 115 mm[Hg] Roxana Muir RN [facility] [place] [employer] [facility], [employer].; [employer] [facility] [place] [employer] [facility], Inc. Comment on above: Patient Position: Sitting; Cuff Location : Right Arm; Cuff Size: Standard 03-23-2016 14:07-0400 Body temperature 98.1 [degF] TALIA ALBARADO [facility] ValleyCiviQ [facility] [email or web address].; [employer] [facility] [employer] [facility], [employer]. Comment on above: Method: Oral 03-23-2016 14:07-0400 Diastolic blood pressure 77 mm[Hg] TALIA ALBARADO [facility], Inc.; [facility], Inc. Comment on above: Patient Position: Sitting; Cuff Location : Left Arm; Cuff Size: Large 03-23-2016 14:07-0400 Heart rate 101 /min TALIA VERENA [facility], Inc.; [facility], Inc. Comment on above: Pattern: Regular 03-23-2016 14:07-0400 Systolic blood pressure 120 mm[Hg] TALIA ALBARADO [facility], Inc.; [facility], Inc. Comment on above: Patient Position: Sitting; Cuff Location : Left Arm; Cuff Size: Large 08-02-2015 09:44-0500 Body temperature 98.4 [degF] MARY [facility], Inc.; [facility], [place], Inc. Comment on above: Method: Oral 08-02-2015 09:44-0500 Diastolic blood pressure 76 mm[Hg] MARY [facility] Al[employer]G [facility] HealthcareMyColorScreen Inc.; [facility], [place], Inc. Comment on above: Patient Position: Sitting; Cuff Location : Left Arm; Cuff Size: Standard 08-02-2015 09:44-0500 Heart rate 106 /min [facility] [email or web address].; [facility], [place], Inc. Comment on above: Pattern: Regular 08-02-2015 09:44-0500 Systolic blood pressure 106 mm[Hg] MARY [facility] CenterMyColorScreen Inc.; [facility], [place], Inc. Comment on above: Patient Position: Sitting; Cuff Location : Left Arm; Cuff Size: Standard 06-03-2015 15:07-0500 Body temperature 98 [degF] Shantell Lopez RN [facility] Boomi [facility] [email or web address].; [employer] [facility] [employer] [facility], Inc. Comment on above: Method: Oral 06-03-2015 15:07-0500 Diastolic blood pressure 94 mm[Hg] Shantell Lopez RN [facility] ValleyCiviQ [facility] [email or web address].; [employer] [facility], Inc. Comment on above: Patient Position: Sitting; Cuff Location : Right Arm; Cuff Size: Large 06-03-2015 15:07-0500 Heart rate 82 /min Shantell Lopez RN [facility] [employer] [facility], [employer].; [employer] [facility] Boomi [facility], Inc. Comment on above: Pattern: Regular 06-03-2015 15:07-0500 Systolic blood pressure 149 mm[Hg] Shantell Lopez RN [facility] [employer] [facility], Inc.; [employer] [facility] Boomi [facility], Inc. Comment on above: Patient Position: Sitting; Cuff Location : Right Arm; Cuff Size: Large 11-04-2014 16:04-0400 Body temperature 98.1 [degF] Cherry Khan RN [facility] [employer] [facility], [employer].; [employer] [facility] Boomi [facility], Inc. Comment on above: Method: Oral 11-04-2014 16:04-0400 Diastolic blood pressure 76 mm[Hg] Cherry Khan RN [facility] [employer] [facility], Inc.; [employer] [facility] [employer], [employer]. Comment on above: Patient Position: Sitting; Cuff Location : Left Arm; Cuff Size: Large 11-04-2014 16:04-0400 Systolic blood pressure 124 mm[Hg] Cherry Khan RN [facility] [employer] [facility], Inc.; [employer] [facility] [employer], [employer]. Comment on above: Patient Position: Sitting; Cuff Location : Left Arm; Cuff Size: Large 05-15-2014 09:53-0500 Body temperature 98.2 [degF] Shantell Lopez RN [facility] [employer] [facility], [employer].; [employer] [facility] [employer], [employer]. Comment on above: Method: Oral 05-15-2014 09:53-0500 Diastolic blood pressure 86 mm[Hg] Shantell Lopez RN [facility] [employer] [facility], Inc.; [employer] [facility] Bo[employer] [facility], Inc. Comment on above: Patient Position: Sitting; Cuff Location : Left Arm; Cuff Size: Standard 05-15-2014 09:53-0500 Heart rate 99 /min Shantell Lopez RN [facility] [employer] [facility], [employer].; [employer] [facility] Bo[employer] [facility], [employer]. Comment on above: Pattern: Regular 05-15-2014 09:53-0500 Systolic blood pressure 132 mm[Hg] Shantell Lopez RN [facility] [employer] [facility], [employer].; [employer] [facility] Bo[employer] [facility], Inc. Comment on above: Patient Position: Sitting; Cuff Location : Left Arm; Cuff Size: Standard 02-12-2014 15:39-0400 Body height 137.16 cm Cherry Khan RN [facility], Inc.; [facility], [place], Inc. 02-12-2014 15:39-0400 Body mass index (BMI) [Ratio] 34.36 kg/m2 Cherry Khan RN [facility], Inc.; [employer] [facility] [employer] [facility], Inc[facility] 02-12-2014 15:39-0400 Body surface area Derived from formula 1.5 m2 Cherry Khan RN [facility] [employer] [facility], Inc.; [employer] [facility] [employer] [facility], Inc. 02-12-2014 15:39-0400 Body temperature 98.1 [degF] Cherry Khan RN [facility] [employer] [facility], [employer].; [employer] [facility] [employer] [facility], [employer]. Comment on above: Method: Oral 02-12-2014 15:39-0400 Body weight 64.64 kg Cherry Khan RN [facility] [employer] [facility], Inc.; [employer] [facility] [employer] [facility], Inc. 02-12-2014 15:39-0400 Diastolic blood pressure 84 mm[Hg] Cherry Khan RN [facility] [employer] [facility], [employer].; [employer] [facility] [employer] [facility], [employer]. Comment on above: Patient Position: Sitting; Cuff Location : Left Arm; Cuff Size: Large 02-12-2014 15:39-0400 Heart rate 94 /min Cherry Khan RN [facility] [employer] [facility], Inc.; [employer] [facility] [employer] [facility], [employer]. Comment on above: Pattern: Regular 02-12-2014 15:39-0400 Systolic blood pressure 132 mm[Hg] Cherry Khan RN [facility] [employer] [facility], Inc.; [employer] [facility] [employer] [facility], [employer]. Comment on above: Patient Position: Sitting; Cuff Location : Left Arm; Cuff Size: Large 12-12-2013 11:45-0400 Body temperature 98.5 [degF] Shantell Lopez RN [facility] [employer] [facility], Inc.; [employer] [facility] [employer] [facility], [employer]. Comment on above: Method: Oral 12-12-2013 11:45-0400 Diastolic blood pressure 84 mm[Hg] Shantell Lopez RN [place] [facility] [email or web address].; [employer] [facility] [employer] [facility], [employer]. Comment on above: Patient Position: Sitting; Cuff Location : Left Arm; Cuff Size: Large 12-12-2013 11:45-0400 Heart rate 117 /min Shantell Lopez RN [facility] [employer] [facility], [employer].; [employer] [facility] [place] [employer] [facility], Inc. Comment on above: Pattern: Regular 12-12-2013 11:45-0400 Systolic blood pressure 123 mm[Hg] Shantell Lopez RN [facility] ValleyCiviQ [facility] [email or web address].; [employer] [facility] [employer] [facility], [employer]. Comment on above: Patient Position: Sitting; Cuff Location : Left Arm; Cuff Size: Large 08-16-2013 16:05-0400 Body temperature 98.3 [degF] Cherry Khan RN [facility] [employer] [facility] HealthcareStorageByMail.com.; [employer] [facility] [place] [employer] [facility], [employer]. Comment on above: Method: Oral 08-16-2013 16:05-0400 Diastolic blood pressure 70 mm[Hg] Cherry Khan RN [facility] ValleyCiviQ [facility] [email or web address].; [employer] [facility] [place] [employer] [facility], [employer]. Comment on above: Patient Position: Sitting; Cuff Location : Left Arm; Cuff Size: Large 08-16-2013 16:05-0400 Systolic blood pressure 126 mm[Hg] Cherry Khan RN [facility] Bo[employer] [facility] HealthcareStorageByMail.com.; [employer] [facility] [place] [employer] [facility], Inc. Comment on above: Patient Position: Sitting; Cuff Location : Left Arm; Cuff Size: Large 04-07-2013 09:09-0400 Body temperature 99.4 [degF] Shantell Lopez RN [facility] Bo[employer] [facility] HealthcareStorageByMail.com.; [employer] [facility] [place] [employer] [facility], [employer]. Comment on above: Method: Oral 04-07-2013 09:09-0400 Diastolic blood pressure 84 mm[Hg] Shantell Lopez RN [facility] Bo[employer] [facility] HealthcareStorageByMail.com.; [employer] [facility] [place] [employer] [facility], Inc. Comment on above: Patient Position: Sitting; Cuff Location : Left Arm; Cuff Size: Large 04-07-2013 09:09-0400 Heart rate 112 /min Shantell Lopez RN [facility] Bo[employer] [facility], [employer].; [employer] [facility] [place] [employer] [facility], Inc. Comment on above: Pattern: Regular 04-07-2013 09:09-0400 Systolic blood pressure 121 mm[Hg] Shantell Lopez RN [facility] [employer] [facility] HealthcareStorageByMail.com.; [facility], [place], [employer]. Comment on above: Patient Position: Sitting; Cuff Location : Left Arm; Cuff Size: Large 02-12-2013 10:21-0400 Diastolic blood pressure 82 mm[Hg] Cherry Khan RN [facility] [employer] [facility] HealthcareStorageByMail.com.; [employer] [facility] [employer] [facility], Inc. Comment on above: Patient Position: Sitting; Cuff Location : Left Arm; Cuff Size: Large 02-12-2013 10:21-0400 Heart rate 88 /min Cherry Khan RN [facility] [employer] [facility] HealthcareStorageByMail.com.; [employer] [facility] [employer] [facility], [employer]. Comment on above: Pattern: Regular 02-12-2013 10:21-0400 Systolic blood pressure 136 mm[Hg] Cherry Khan RN [facility] [employer] [facility] HealthcareStorageByMail.com.; [employer] [facility] [employer] [facility], [employer]. Comment on above: Patient Position: Sitting; Cuff Location : Left Arm; Cuff Size: Large 08-15-2012 15:12-0400 Body temperature 98.5 [degF] Cherry Khan RN [facility] [employer] [facility] HealthcareStorageByMail.com.; [employer] [facility] [employer] [facility], [employer]. Comment on above: Method: Oral 08-15-2012 15:12-0400 Diastolic blood pressure 99 mm[Hg] Cherry Khan RN [facility] ValleyCiviQ [facility] HealthcareStorageByMail.com.; [employer] [facility] [employer] [facility], [employer]. Comment on above: Patient Position: Sitting; Cuff Location : Left Arm; Cuff Size: Large 08-15-2012 15:12-0400 Heart rate 96 /min Cherry Khan RN [facility] Boomi [facility] HealthcareStorageByMail.com.; [employer] [facility] Al[employer] [facility], [employer]. Comment on above: Pattern: Regular 08-15-2012 15:12-0400 Systolic blood pressure 137 mm[Hg] Cherry Khan RN [facility] ValleyCiviQ [facility] HealthcareStorageByMail.com.; [employer] [facility] [employer] [facility], [employer]. Comment on above: Patient Position: Sitting; Cuff Location : Left Arm; Cuff Size: Large 06-17-2012 09:34-0500 Body temperature 98.4 [degF] Cherry Khan RN [facility] ValleyCiviQ [facility] HealthcareStorageByMail.com.; [employer] [facility] Alter-G [facility] HealthcareStorageByMail.com. Comment on above: Method: Oral 06-17-2012 09:34-0500 Diastolic blood pressure 90 mm[Hg] Cherry Khan RN [facility] ValleyCiviQ [facility] HealthcareStorageByMail.com.; [employer] [facility] [place] [employer] [facility], [employer]. Comment on above: Patient Position: Sitting; Cuff Location : Left Arm; Cuff Size: Large 06-17-2012 09:34-0500 Heart rate 109 /min Cherry Khan RN [facility] ValleyCiviQ [facility] HealthcareStorageByMail.com.; [employer] [facility] [place] [employer] [facility], Inc. Comment on above: Pattern: Regular 06-17-2012 09:34-0500 Systolic blood pressure 133 mm[Hg] Cherry Khan RN [facility] ValleyCiviQ [facility] HealthcareStorageByMail.com.; [employer] [facility] [place] [employer] [facility] [email or web address]. Comment on above: Patient Position: Sitting; Cuff Location : Left Arm; Cuff Size: Large 12-02-2011 14:13-0400 Body temperature 98.5 [degF] [facility] – NORMANNicole Roman T[facility] Behavioral Health CenterCiviQ [facility] HealthcareStorageByMail.com.; [employer] [facility] Boomi [facility], [employer]. Comment on above: Method: Oral 12-02-2011 14:13-0400 Diastolic blood pressure 82 mm[Hg] ENEDINA Roman [facility] [employer].; [email or web address] [facility], Inc. Comment on above: Patient Position: Sitting; Cuff Location : Left Arm; Cuff Size: Standard 12-02-2011 14:13-0400 Heart rate 113 /min ENEDINA Roman [facility] [employer].; [facility] [facility], Inc[employer] Comment on above: Pattern: Regular 12-02-2011 14:13-0400 Systolic blood pressure 131 mm[Hg] ENEDINA Roman [facility] [employer].; [employer] [facility] Boomi [facility], Inc. Comment on above: Patient Position: Sitting; Cuff Location : Left Arm; Cuff Size: Standard 11-10-2011 08:41-0400 Body height 137.16 cm ENEDINA Roman MOLINA [employer], [employer] 11-10-2011 08:41-0400 Body mass index (BMI) [Ratio] 33.51 kg/m2 ENEDINA Roman [employer] [facility], Inc[employer] 11-10-2011 08:41-0400 Body surface area Derived from formula 1.48 m2 ENEDINA Roman MOLINA [facility] Al[employer] [facility], Inc.; [facility], [place], Inc. 11-10-2011 08:41-0400 Body weight 63.05 kg GODWINNicole Roman MOLINA [facility], Inc.; [facility], [place], Inc. 11-10-2011 08:41-0400 Diastolic blood pressure 79 mm[Hg] ENEDINA Roman MOLINA [facility] [employer] [facility], Inc.; [employer] [facility] [employer] [facility], Inc. Comment on above: Patient Position: Sitting; Cuff Location : Left Arm; Cuff Size: Standard 11-10-2011 08:41-0400 Systolic blood pressure 111 mm[Hg] GODWINNicole Roman MOLINA [facility] [employer] [facility] [employer] [facility], Inc. Comment on above: Patient Position: Sitting; Cuff Location : Left Arm; Cuff Size: Standard 08-10-2011 08:58-0500 Body height 137.16 cm ENEDINA Roman MOLINA [facility].; [facility] [employer] [facility], Inc. 08-10-2011 08:58-0500 Body mass index (BMI) [Ratio] 33.51 kg/m2 GODWINNicole Roman MOLINA [facility] [facility] [place], Inc. 08-10-2011 08:58-0500 Body surface area Derived from formula 1.48 m2 ENEDINA Roman MOLINA [facility] [employer] [facility], Inc.; [facility] [place], Inc. 08-10-2011 08:58-0500 Body weight 63.05 kg ENEDINA Roman MOLINA [facility] [employer] [facility], Inc.; [facility] [employer] [facility], Inc. 08-10-2011 08:58-0500 Diastolic blood pressure 94 mm[Hg] ENEDINA Roman MOLINA [facility] [employer] [facility], Inc.; [facility] [employer] [facility], Inc. Comment on above: Patient Position: Sitting; Cuff Location : Left Arm; Cuff Size: Standard 08-10-2011 08:58-0500 Heart rate 98 /min ENEDINA MOLINA [employer] [facility].; Uniqu[employer] Montaño [employer] [facility], Inc. Comment on above: Pattern: Regular 08-10-2011 08:58-0500 Systolic blood pressure 132 mm[Hg] ENEDINA MOLINA [facility], Inc.; [facility], [place], Inc. Comment on above: Patient Position: Sitting; Cuff Location : Left Arm; Cuff Size: Standard 06-09-2011 13:07-0500 Body temperature 98.3 [degF] Roxana Muir RN [facility], [employer] [facility] [employer] [facility], Inc. Comment on above: Method: Oral 06-09-2011 13:07-0500 Diastolic blood pressure 80 mm[Hg] Roxana Muir RN [facility], Inc.; [facility] [place], Inc. Comment on above: Patient Position: Sitting; Cuff Location : Left Arm; Cuff Size: Standard 06-09-2011 13:07-0500 Heart rate 96 /min Roxana Muir RN [facility], [employer] [facility] [facility], Inc. Comment on above: Pattern: Regular 06-09-2011 13:07-0500 Systolic blood pressure 111 mm[Hg] Roxana Muir RN [facility], [employer] [facility], [place], Inc. Comment on above: Patient Position: Sitting; Cuff Location : Left Arm; Cuff Size: Standard 04-05-2011 10:07-0400 Body weight 52.16 kg Cherry Khan RN [email or web address].; [facility] [employer] [facility], Inc. 04-05-2011 10:07-0400 Diastolic blood pressure 83 mm[Hg] Cherry Khan RN [email or web address].; [facility] [place], Inc. Comment on above: Patient Position: Sitting; Cuff Location : Left Arm; Cuff Size: Large 04-05-2011 10:07-0400 Heart rate 115 /min Cherry Khan RN [facility] [employer] [facility], [facility] [employer] [facility] [employer] [facility], Inc. Comment on above: Pattern: Regular 04-05-2011 10:07-0400 Systolic blood pressure 135 mm[Hg] Cherry Khan RN [facility] [employer] [facility], [employer] [facility] [employer] [facility], Inc. Comment on above: Patient Position: Sitting; Cuff Location : Left Arm; Cuff Size: Large 03-24-2011 14:46-0400 Body temperature 98.4 [degF] Roxana Muir RN [facility], Inc.; [facility] [employer] [facility], Inc. Comment on above: Method: Oral 03-24-2011 14:46-0400 Diastolic blood pressure 81 mm[Hg] Roxana Muir RN [facility], Inc.; [facility] [employer] [facility], Inc. Comment on above: Patient Position: Sitting; Cuff Location : Left Arm; Cuff Size: Standard 03-24-2011 14:46-0400 Heart rate 103 /min Roxana Muir RN [facility], Inc.; [facility] [employer] [facility], Inc. Comment on above: Pattern: Regular 03-24-2011 14:46-0400 Systolic blood pressure 137 mm[Hg] Roxana Muir RN [facility] [employer] [facility], Inc.; [facility] [employer] [facility], Inc. Comment on above: Patient Position: Sitting; Cuff Location : Left Arm; Cuff Size: Standard 03-03-2011 15:22-0400 Body temperature 98.2 [degF] Roxana Muir RN [facility] [employer] [facility], Inc.; [facility] [employer] [facility], Inc. Comment on above: Method: Oral 03-03-2011 15:22-0400 Diastolic blood pressure 49 mm[Hg] Roxana Muir RN [facility] [employer] [facility], Inc.; [facility] [employer] [facility], Inc. Comment on above: Patient Position: Sitting; Cuff Location : Left Arm; Cuff Size: Standard 03-03-2011 15:22-0400 Heart rate 130 /min Roxana Muir RN [facility], Inc.; [facility] [employer] [facility], Inc. Comment on above: Pattern: Regular 03-03-2011 15:22-0400 Systolic blood pressure 82 mm[Hg] Roxana Muir RN [facility] [employer] [facility], Inc.; [employer] [facility] [employer] [facility], Inc. Comment on above: Patient Position: Sitting; Cuff Location : Left Arm; Cuff Size: Standard 02-17-2011 15:10-0400 Body temperature 97.9 [degF] Roxana Muir RN [facility] [employer] [facility], Inc.; [employer] [facility] [employer] [facility], Inc. Comment on above: Method: Oral 02-17-2011 15:10-0400 Diastolic blood pressure 63 mm[Hg] Roxana Muir RN [facility], [employer] [facility] [employer] [facility], [employer]. Comment on above: Patient Position: Sitting; Cuff Location : Left Arm; Cuff Size: Standard 02-17-2011 15:10-0400 Heart rate 80 /min Roxana Muir RN [facility], [employer] [facility] [employer] [facility], Inc. Comment on above: Pattern: Regular 02-17-2011 15:10-0400 Systolic blood pressure 94 mm[Hg] Roxana Muir RN [facility], [employer] [facility] [employer] [facility], [facility] [employer]. Comment on above: Patient Position: Sitting; Cuff Location : Left Arm; Cuff Size: Standard 06-19-2010 15:53-0500 Body temperature 98.9 [degF] Cherry Khan RN [email or web address].; [employer] [facility] [employer] [facility], [employer]. Comment on above: Method: Oral 06-19-2010 15:53-0500 Diastolic blood pressure 95 mm[Hg] Cherry Khan RN [facility], [employer] [facility] [employer] [facility], [facility] [employer]. Comment on above: Patient Position: Sitting; Cuff Location : Left Arm; Cuff Size: Large 06-19-2010 15:53-0500 Heart rate 106 /min Cherry Khan RN [facility], [employer] [facility] [employer] [facility], Inc. Comment on above: Pattern: Regular 06-19-2010 15:53-0500 Systolic blood pressure 138 mm[Hg] Cherry Khan RN [facility] [employer] [facility], [employer] [facility] [employer] [facility], Inc. Comment on above: Patient Position: Sitting; Cuff Location : Left Arm; Cuff Size: Large Encounters Encounter Date Encounter Type Care Provider Facility Start: 04-11-2025 ambulatory Kassie Polanco NP [facility]il [facility]y:[facility] Start: 04-02-2025 End: 04-03-2025 Emergency department patient visit KILO MICHAEL [facility] Start: 03-28-2025 ambulatory Kassie Polanco NP [facility]il [facility]y:[facility] Start: 03-28-2025 End: 04-05-2025 ambulatory Kassie Polanco NP Facility:[facility] Start: 03-07-2025 ambulatory Kassie Sherri HUMAN RESOURCES TRAINING MANAGER Facil ity:[facility] Start: 03-07-2025 Non-patient / Non-visit Dr. Savannah Kinney MD -[facility] Work Phone: Start: 03-07-2025 End: 03-18-[address] Sav[facility] Work Phone: Start: 03-07-2025 End: 03-18-2025 ambulatory Kassie Polanco NP-C Work Phone: -[facility] Start: 02-21-2025 ambulatory Kassie Polanco HUMAN RESOURCES TRAINING MANAGER Facil ity:[facility] Start: 02-21-2025 Non-patient / Non-visit Dr. Savannah Kinney MD -[facility] Work Phone: Start: 02-21-2025 End: 03-05-2025 ambulatory Kassie Polanco HUMAN RESOURCES TRAINING MANAGER-C Work Phone: -[facility] Start: 02-21-2025 End: 03-05-[address] Savannah Kinney MD -[facility] Work Phone: Start: 02-14-2025 ambulatory Kassie Polanco NP Facil [facility] Start: 02-14-2025 Non-patient / Non-visit Dr. Savannah Kinney MD -[facility] Work Phone: Start: 02-07-2025 ambulatory Kassie Polanco NP Facil [facility] Start: 02-07-2025 Non-patient / Non-visit Dr. Savannah Kinney MD -[facility] Work Phone: Start: 01-31-2025 Non-patient / Non-visit Dr. Savannah Kinney MD -[facility] Work Phone: Start: 01-31-2025 End: 02-03-2025 ambulatory Kassie Polanco NP-C Work Phone: -[facility] Start: 01-31-2025 End: 02-03-[address] Savannah Kinney MD -[facility] Work Phone: Start: 01-30-2025 End: 01-30-2025 Patient encounter procedure Shell ARELLANO -[facility] Work Phone: Start: 01-30-2025 End: 01-30-2025 ambulatory Kassie Polanco NP-C Work Phone: -[facility] Start: 01-24-2025 ambulatory Kassie Polanco NP Facil [facility] Start: 01-24-2025 Non-patient / Non-visit Dr. Savannah Kinney MD -[facility] Work Phone: Start: 01-24-[address] Sanaz Kinney MD -[facility] Work Phone: Start: 01-22-2025 ambulatory Kassie Polanco NP Facil [facility] Start: 01-22-2025 Non-patient / Non-visit Mario Rai DO -[facility] Start: 01-22-2025 End: 01-22-2025 Admission to same day surgery center Mariochip Rai -Endoscopy Work Phone: Start: 01-22-2025 End: 01-22-2025 ambulatory Kassie Polanco NP-C Work Phone: -Endoscopy Start: 01-17-2025 ambulatory Savannah Tillmani ty:[facility] Start: 01-17-2025 Non-patient / Non-visit Dr. Savannah Kinney MD -[facility] Work Phone: Start: 01-17-[address] Sanaz Kinney MD -[facility] Work Phone: Start: 01-15-2025 End: 01-15-2025 ambulatory Kassie Polanco NP-C Work Phone: -Cat Scan [facility] Start: 01-15-2025 End: 01-15-[address] Enzo Hernandez MD -[facility] Work Phone: Start: 01-15-2025 End: 01-15-2025 ambulatory Enzo Hernandez Facility:[facility] Start: 01-10-2025 ambulatory Savannah Valencia ty:[facility] Start: 01-10-2025 Non-patient / Non-visit Dr. Savannah Kinney MD -[facility] Work Phone: Start: 01-03-2025 ambulatory Kassie Polanco NP Facil [facility] Start: 01-03-2025 Non-patient / Non-visit Dr. Savannah Kinney MD -[facility] Work Phone: Start: 01-03-2025 End: 01-03-[address] Savannah Kinney MD -[facility] [place] Work Phone: Start: 01-03-2025 End: 01-03-2025 ambulatory Kassie Polanco NP-C Work Phone: -[facility] Start: 12-14-2024 End: 12-14-2024 ambulatory KASSIE POLANCO [facility] Start: 12-13-2024 ambulatory No Primary Car e Physician Facility:[facility] Start: 12-13-2024 Non-patient / Non-visit Dr. Savannah Kinney MD -[facility] Work Phone: Start: 12-13-2024 End: 12-13-2024 ambulatory Kassie Polanco NP-C Work Phone: -[facility] Start: 12-13-2024 End: 12-13-[address] Savannah Kinney MD -[facility] [place] Work Phone: Start: 12-06-2024 ambulatory No Primary Car e Physician Facility:[facility] Start: 12-06-2024 Non-patient / Non-visit Dr. Savannah Kinney MD -[facility] Work Phone: Start: 11-29-2024 Non-patient / Non-visit Dr. Brett Vincent MD -[facility] Start: 11-29-2024 End: 12-03-2024 ambulatory Kassie Polanco HUMAN RESOURCES TRAINING MANAGER-C Work Phone: -[facility] Start: 11-29-2024 End: 12-03-[address] Savannah Kinney MD -[facility] [place] Work Phone: Start: 11-22-2024 ambulatory No Primary Car e Physician Facility:[facility] Start: 11-22-2024 Non-patient / Non-visit Dr. Savannah Kinney MD -[facility] Work Phone: Start: 10-25-2024 End: 10-26-2024 Emergency department patient visit VIKTOR ALEMAN [facility] Start: 08-21-2024 End: 08-21-2024 Patient encounter procedure Shell Brewer HUMAN RESOURCES TRAINING MANAGER-C -[facility] Work Phone: Start: 08-21-2024 End: 08-21-2024 ambulatory Kassie Polanco NP Facility:[facility] Start: 01-25-2023 End: 01-25-2023 ambulatory NAWAF BARAKATWRIGHT Facility:[facility] Start: 12-28-2022 End: 12-28-2022 ambulatory KASSIE POLANCO Facility:[facility] Start: 12-14-2022 End: 12-14-2022 ambulatory NAWAF BARAKATWRIGHT Facility:[facility] Start: 11-30-2022 End: 11-30-2022 ambulatory KASSIE POLANCO Facility:[facility] Start: 11-16-2022 End: 11-16-2022 ambulatory SHELL RUTH Facility:[facility] Start: 11-09-2022 End: 11-09-2022 ambulatory NAWAF Francisco GATHERWRIGHT Facility:[facility] Start: 10-26-2022 End: 10-26-2022 ambulatory NAWAF BARAKATWRIGHT Facility:[facility] Start: 10-08-2022 ambulatory KASSIE LUU ER JOB PRESS FEEDER-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 Facility:[facility] Start: 10-05-2022 End: 10-08-2022 Evaluation and management of inpatient VIKTOR JARAMILLO Facility:[facility] Start: 09-28-2022 End: 09-29-2022 ambulatory NAWAF QUINN Facility:[facility] Start: 09-28-2022 End: 09-29-2022 ambulatory NAWAF QUINN Facility:[facility] Start: 09-28-2022 Encounter for other preprocedural examination KASSIE POLANCO [facility] Start: 09-23-2022 Non-patient / Non-visit HUMAN RESOURCES TRAINING MANAGER-C Kassie Polanco HUMAN RESOURCES TRAINING MANAGER Work Phone: [facility] Start: 09-23-2022 End: 10-03-2022 ambulatory HUMAN RESOURCES TRAINING MANAGER-C Kassie Polanco HUMAN RESOURCES TRAINING MANAGER Work Phone: [facility] Work Phone: Start: 09-23-2022 End: 10-03-2022 Discharged Recurring HUMAN RESOURCES TRAINING MANAGER-C Kassie Polanco HUMAN RESOURCES TRAINING MANAGER Work Phone: [facility] Start: 09-16-2022 Non-patient / Non-visit HUMAN RESOURCES TRAINING MANAGER-C Kassie Polanco HUMAN RESOURCES TRAINING MANAGER Work Phone: [facility] Start: 09-09-2022 Non-patient / Non-visit HUMAN RESOURCES TRAINING MANAGER-C Kassie Polanco HUMAN RESOURCES TRAINING MANAGER Work Phone: [facility] Start: 08-26-2022 Non-patient / Non-visit HUMAN RESOURCES TRAINING MANAGER-C Kassie Polanco HUMAN RESOURCES TRAINING MANAGER Work Phone: [facility] Start: 08-26-2022 End: 09-03-2022 ambulatory HUMAN RESOURCES TRAINING MANAGER-C Kassie Polanco HUMAN RESOURCES TRAINING MANAGER Work Phone: [facility] Work Phone: Start: 08-26-2022 End: 09-03-2022 Discharged Recurring HUMAN RESOURCES TRAINING MANAGER-C Kassie Polanco HUMAN RESOURCES TRAINING MANAGER Work Phone: [facility] Start: 08-12-2022 Non-patient / Non-visit HUMAN RESOURCES TRAINING MANAGER-C Kassie Polanco HUMAN RESOURCES TRAINING MANAGER Work Phone: [facility] Start: 08-05-2022 ambulatory Nawaf burnett MD Work Phone: Plastic Surgery Comment on above: Lucia wound Start: 08-05-2022 Non-patient / Non-visit HUMAN RESOURCES TRAINING MANAGER-C Kassie Polanco HUMAN RESOURCES TRAINING MANAGER Work Phone: [facility] Start: 08-04-2022 End: 08-04-2022 ambulatory NAWAF QUINN Facility:[facility] Start: 08-04-2022 End: 08-04-2022 Patient encounter procedure Nawaf Quinn MD Work Phone: Plastic Surgery Comment on above: Pressure injury of s acral region, stage 4 (HCC) (Primary Dx) Start: 07-29-2022 Non-patient / Non-visit HUMAN RESOURCES TRAINING MANAGER-C Kassie Polanco HUMAN RESOURCES TRAINING MANAGER Work Phone: [facility] Start: 07-29-2022 End: 08-03-2022 ambulatory HUMAN RESOURCES TRAINING MANAGER-C Kassie Polanco HUMAN RESOURCES TRAINING MANAGER Work Phone: [facility] Work Phone: Start: 07-29-2022 End: 08-03-2022 Discharged Recurring HUMAN RESOURCES TRAINING MANAGER-C Kassie Polanco HUMAN RESOURCES TRAINING MANAGER Work Phone: [facility] Start: 07-22-2022 Non-patient / Non-visit HUMAN RESOURCES TRAINING MANAGER-C Kassie Polanco HUMAN RESOURCES TRAINING MANAGER Work Phone: [facility] Start: 07-08-2022 Non-patient / Non-visit HUMAN RESOURCES TRAINING MANAGER-C Kassie Polanco HUMAN RESOURCES TRAINING MANAGER Work Phone: [facility] Start: 07-01-2022 Non-patient / Non-visit HUMAN RESOURCES TRAINING MANAGER-C Kassie Polanco HUMAN RESOURCES TRAINING MANAGER Work Phone: [facility] Start: 07-01-2022 End: 07-06-2022 Discharged Recurring HUMAN RESOURCES TRAINING MANAGER-C Kassie Polanco HUMAN RESOURCES TRAINING MANAGER Work Phone: [facility] Start: 06-24-2022 Non-patient / Non-visit HUMAN RESOURCES TRAINING MANAGER-C Kassie Polanco HUMAN RESOURCES TRAINING MANAGER Work Phone: [facility] Start: 06-10-2022 Non-patient / Non-visit HUMAN RESOURCES TRAINING MANAGER-C Kassie Polanco HUMAN RESOURCES TRAINING MANAGER Work Phone: [facility] Start: 06-03-2022 Non-patient / Non-visit HUMAN RESOURCES TRAINING MANAGER-C Kassie Polanco HUMAN RESOURCES TRAINING MANAGER Work Phone: [facility] Start: 06-03-2022 End: 06-05-2022 ambulatory HUMAN RESOURCES TRAINING MANAGER-C Kassie Polanco HUMAN RESOURCES TRAINING MANAGER Work Phone: [facility] Work Phone: Start: 06-03-2022 End: 06-05-2022 Discharged Recurring HUMAN RESOURCES TRAINING MANAGER-C Kassie Polanco HUMAN RESOURCES TRAINING MANAGER [facility] Start: 06-02-2022 End: 06-02-2022 Patient encounter procedure HUMAN RESOURCES TRAINING MANAGER-C Kassie Polanco HUMAN RESOURCES TRAINING MANAGER Work Phone: [facility] Start: 05-27-2022 Non-patient / Non-visit HUMAN RESOURCES TRAINING MANAGER-C Kassie Polanco HUMAN RESOURCES TRAINING MANAGER Work Phone: [facility] Start: 05-06-2022 Non-patient / Non-visit HUMAN RESOURCES TRAINING MANAGER-C Kassie Polanco HUMAN RESOURCES TRAINING MANAGER Work Phone: [facility] Start: 04-22-2022 Non-patient / Non-visit HUMAN RESOURCES TRAINING MANAGER-C Kassie Polanco HUMAN RESOURCES TRAINING MANAGER Work Phone: [facility] Start: 04-22-2022 End: 05-05-2022 ambulatory HUMAN RESOURCES TRAINING MANAGER-C Kassie Polanco HUMAN RESOURCES TRAINING MANAGER Work Phone: [facility] Work Phone: Start: 04-22-2022 End: 05-05-2022 Discharged Recurring HUMAN RESOURCES TRAINING MANAGER-C Kassie Polanco HUMAN RESOURCES TRAINING MANAGER [facility] Start: 04-08-2022 Non-patient / Non-visit HUMAN RESOURCES TRAINING MANAGER-C Kassie Polanco HUMAN RESOURCES TRAINING MANAGER Work Phone: [facility] Start: 03-25-2022 Non-patient / Non-visit HUMAN RESOURCES TRAINING MANAGER-C Kassie Polanco HUMAN RESOURCES TRAINING MANAGER Work Phone: [facility] Start: 03-25-2022 End: 04-05-2022 Discharged Recurring HUMAN RESOURCES TRAINING MANAGER-C Kassie Polanco HUMAN RESOURCES TRAINING MANAGER Work Phone: [facility] Start: 03-18-2022 Non-patient / Non-visit HUMAN RESOURCES TRAINING MANAGER-C Kassie Polanco HUMAN RESOURCES TRAINING MANAGER Work Phone: [facility] Start: 03-11-2022 Non-patient / Non-visit HUMAN RESOURCES TRAINING MANAGER-C Kassie Polanco HUMAN RESOURCES TRAINING MANAGER Work Phone: [facility] Start: 02-25-2022 Non-patient / Non-visit HUMAN RESOURCES TRAINING MANAGER-C Kassie Polanco HUMAN RESOURCES TRAINING MANAGER Work Phone: [facility] Start: 02-25-2022 End: 03-05-2022 ambulatory HUMAN RESOURCES TRAINING MANAGER-C Kassie Polanco HUMAN RESOURCES TRAINING MANAGER Work Phone: [facility] Work Phone: Start: 02-25-2022 End: 03-05-2022 Discharged Recurring HUMAN RESOURCES TRAINING MANAGER-C Kassie Polanco HUMAN RESOURCES TRAINING MANAGER Work Phone: [facility] Start: 02-18-2022 Non-patient / Non-visit HUMAN RESOURCES TRAINING MANAGER-C Kassie Polanco HUMAN RESOURCES TRAINING MANAGER Work Phone: [facility] Start: 02-11-2022 Non-patient / Non-visit HUMAN RESOURCES TRAINING MANAGER-C Kassie Polanco HUMAN RESOURCES TRAINING MANAGER Work Phone: [facility] Start: 02-04-2022 Non-patient / Non-visit HUMAN RESOURCES TRAINING MANAGER-C Kassie Polanco HUMAN RESOURCES TRAINING MANAGER Work Phone: [facility] Start: 01-28-2022 Non-patient / Non-visit HUMAN RESOURCES TRAINING MANAGER-C Kassie Polanco HUMAN RESOURCES TRAINING MANAGER Work Phone: [facility] Start: 01-28-2022 End: 02-03-2022 ambulatory HUMAN RESOURCES TRAINING MANAGER-C Kassie Polanco HUMAN RESOURCES TRAINING MANAGER Work Phone: [facility] Work Phone: Start: 01-28-2022 End: 02-03-2022 Discharged Recurring HUMAN RESOURCES TRAINING MANAGER-C Kassie Polanco HUMAN RESOURCES TRAINING MANAGER [facility] Start: 01-21-2022 Non-patient / Non-visit HUMAN RESOURCES TRAINING MANAGER-C Kassie Polanco HUMAN RESOURCES TRAINING MANAGER Work Phone: [facility] Start: 01-21-2022 Registered Recurring HUMAN RESOURCES TRAINING MANAGER-C Evangelist Polanco HUMAN RESOURCES TRAINING MANAGER [facility] Start: 01-19-2022 End: 01-19-2022 Patient encounter procedure HUMAN RESOURCES TRAINING MANAGER-C Kassie Polanco HUMAN RESOURCES TRAINING MANAGER Work Phone: [facility] Start: 01-14-2022 Non-patient / Non-visit HUMAN RESOURCES TRAINING MANAGER-C Kassie Polanco HUMAN RESOURCES TRAINING MANAGER Work Phone: [facility] Start: 01-07-2022 Non-patient / Non-visit HUMAN RESOURCES TRAINING MANAGER-C Kassie Polanco HUMAN RESOURCES TRAINING MANAGER Work Phone: [facility] Start: 12-24-2021 Non-patient / Non-visit HUMAN RESOURCES TRAINING MANAGER-C Kassie Polanco HUMAN RESOURCES TRAINING MANAGER Work Phone: [facility] Start: 12-24-2021 End: 01-03-2022 Discharged Recurring HUMAN RESOURCES TRAINING MANAGER-C Kassie Polanco HUMAN RESOURCES TRAINING MANAGER [facility] Start: 12-24-2021 Registered Recurring HUMAN RESOURCES TRAINING MANAGER-C Evangelist Polanco HUMAN RESOURCES TRAINING MANAGER Work Phone: [facility] Start: 12-17-2021 Non-patient / Non-visit HUMAN RESOURCES TRAINING MANAGER-C Kassie Polanco HUMAN RESOURCES TRAINING MANAGER Work Phone: [facility] Start: 10-28-2021 End: 10-28-2021 Patient encounter procedure HUMAN RESOURCES TRAINING MANAGER-C Kassie Polanco NP Work Phone: [facility]-Pre-Admission Testing Start: 10-12-2021 End: 10-12-[address] [facility]-Cat Scan, [facility] Start: 10-09-2021 End: 10-09-[address] [facility]-Radiology, [facility] Start: 04-30-2019 End: 04-30-2019 Historical Summary Roxana Muir RN [facility] [employer] Start: 03-12-2019 End: 03-12-2019 Historical Summary Roxana Muir RN [facility] [employer] [facility] Start: 10-03-2018 End: 10-03-2018 Office outpatient visit 15 minutes Roxana Muir RN [facility] [facility] [employer] Start: 09-23-2018 End: 09-23-2018 Medication Refill/Order Roxana Muir RN [facility] [employer] [facility] [employer] Start: 08-11-2018 End: 08-11-2018 Office outpatient visit 15 minutes Roxana Muir RN [facility] [employer] [facility] [employer] Start: 06-13-2018 End: 06-13-2018 Historical Summary Roxana Muir RN [facility] [employer] [facility] Start: 06-12-2018 End: 06-12-2018 Office outpatient visit 15 minutes Roxana Muir RN [facility] [employer] [facility] [employer] Start: 04-22-2018 End: 04-22-2018 Historical Summary Roxana Muir RN [facility] [employer] Start: 04-12-2018 End: 04-12-2018 Historical Summary Roxana uMir RN [employer] [facility] [employer] Start: 03-30-2018 End: 03-30-2018 Historical Summary Roxana Muir RN [facility] [employer] Start: 03-28-2018 End: 03-28-2018 Historical Summary Roxana Muir RN [employer] [facility] [employer] [facility] [employer] Start: 03-28-2018 End: 03-28-2018 Office outpatient visit 15 minutes Roxana Muir RN [facility] [place], [employer] Start: 03-20-2018 End: 03-20-2018 Historical Summary Roxana Muir RN [facility] Start: 03-15-2018 End: 03-15-2018 Historical Summary Roxana Muir RN [facility] [place], [employer] Start: 03-13-2018 End: 03-13-2018 Historical Summary Roxana Muir RN [facility] [place], [employer] Start: 03-09-2018 End: 03-09-2018 Historical Summary Roxana Muir RN [facility] [place], [employer] Start: 11-25-2017 End: 11-25-2017 Ambulatory LUIS ENRIQUE [facility] Start: 11-25-2017 End: 11-26-2017 Ambulatory CHRISTOPHE Nicole PENA [facility] Start: 10-13-2017 End: 10-13-2017 Medication Refill/Order Roxana Muir RN [facility] [employer] Start: 10-10-2017 End: 10-10-2017 Office outpatient visit 15 minutes Roxana Muir RN [facility] [place], [employer] Start: 09-27-2017 End: 09-27-2017 Office outpatient visit 40 minutes Roxana Muir RN [facility] [place], [employer] Start: 09-15-2017 End: 09-15-2017 Office outpatient visit 15 minutes Roxana Muir RN [facility], [employer] Start: 09-13-2017 End: 09-13-2017 Office outpatient visit 15 minutes Roxana Muir RN [facility] [place], [employer] Start: 08-27-2017 End: 08-27-2017 Results Review Roxana Muir RN [facility] [place], [employer] Start: 08-26-2017 End: 08-26-2017 Medication Refill/Order Roxana Muir RN [facility] [place], [employer] Start: 08-22-2017 End: 08-22-2017 Lab Only Roxana Muir RN [facility] [place], [employer] Start: 07-06-2017 End: 07-06-2017 Ambulatory LUIS ENRIQUE [facility] Start: 07-04-2017 End: 07-04-2017 Office outpatient visit 15 minutes Roxana Muir RN [facility] [employer] [facility] Start: 05-11-2017 End: 05-11-2017 Historical Summary Roxana Muir RN [facility], [facility] Start: 05-09-2017 End: 05-09-2017 Medication Refill/Order Roxana Muir RN [facility] [place], [employer] Start: 05-05-2017 End: 05-05-2017 Lab Only Roxana Muir RN [facility] [place], [employer] Start: 05-02-2017 End: 05-02-2017 Lab Only Roxana Muir RN [facility] [place], [employer] Start: 09-20-2016 End: 09-20-2016 Medication Refill/Order Roxana uMir RN [facility] [place], [employer] Start: 09-20-2016 End: 09-20-2016 Office outpatient visit 15 minutes Roxana Muir RN [facility] [place], [employer] Start: 07-22-2016 End: 07-22-2016 Results Review Roxana Muir RN [facility], [facility] Start: 07-20-2016 End: 07-20-2016 Office outpatient visit 15 minutes Roxana Muir RN [facility] [place], [employer] Start: 07-01-2016 End: 07-01-2016 Medication Refill/Order Roxana Muir RN [facility], [facility] Start: 06-08-2016 End: 06-08-2016 Lab Only Roxana Muir RN [facility] [place], [employer] Start: 04-09-2016 End: 04-09-2016 Office outpatient visit 15 minutes Roxana Muir RN [facility] Start: 04-07-2016 End: 04-07-2016 Office outpatient visit 15 minutes Roxana Muir RN [facility] [employer] [facility] Start: 03-31-2016 End: 03-31-2016 Results Review Roxana Muir RN [facility] Start: 2016 End: 2016 Office outpatient visit 15 minutes Roxana Muir RN [facility] [employer] [facility] Start: 03-23-2016 End: 03-23-2016 Office outpatient visit 15 minutes Roxana Muir RN [facility] Start: 02-28-2016 End: 02-28-2016 Medication Refill/Order Roxana Muir RN [facility], [facility] Start: 02-17-2016 End: 02-17-2016 Lab Only Roxana Muir RN [facility] [place], [facility] Start: 09-24-2015 End: 09-25-2015 Medication Refill/Order Roxana Muir RN [facility] [place], [employer] Start: 09-22-2015 End: 09-22-2015 Medication Refill/Order Roxana Muir RN [facility] [place], [employer] Start: 09-12-2015 End: 09-12-2015 Historical Summary Roxana Muir RN [facility] Start: 08-02-2015 End: 08-02-2015 Office outpatient visit 15 minutes Roxana Muir RN [facility] [place], [facility] Start: 07-14-2015 End: 07-14-2015 Medication Refill/Order Roxana Muir RN [facility] Start: 06-30-2015 End: 06-30-2015 Medication Refill/Order Roaxna Muir RN [facility] Start: 06-09-2015 End: 06-09-2015 Results Review Roxana Muir RN [facility] [place], [facility] Start: 06-03-2015 End: 06-03-2015 Office outpatient visit 15 minutes Roxana Muir RN [facility] [place], [facility] Start: 03-20-2015 End: 03-20-2015 Medication Refill/Order Roxana Muir RN [facility] [place], [facility] Start: 03-04-2015 End: 03-04-2015 Medication Refill/Order Roxana Muir RN [facility] Start: 03-03-2015 End: 03-03-2015 Results Review Roxana Muir RN [facility] [place], [facility] Start: 02-24-2015 End: 02-24-2015 Lab Only Roxana Muir RN [facility] Start: 11-13-2014 End: 11-13-2014 Follow-up encounter Roxana Muir RN [facility] Start: 11-12-2014 End: 11-12-2014 Office outpatient visit 15 minutes Roxana Muir RN [facility] [place], [facility] Start: 11-04-2014 End: 11-04-2014 Office outpatient visit 15 minutes Roxana Muir RN [facility] [place], [facility] Start: 09-07-2014 End: 09-07-2014 Medication Refill/Order Roxana Muir RN [facility] [place], [facility] Start: 09-02-2014 End: 09-02-2014 Lab Only Roxana Muir RN [facility] [place], [facility] Start: 07-05-2014 End: 07-05-2014 Results Review Roxana Muir RN [facility] [place], [facility] Start: 06-26-2014 End: 06-26-2014 Lab Only Roxana Muir RN [facility] [place], [facility] Start: 06-10-2014 End: 06-10-2014 Medication Refill/Order Roxana Muir RN [facility] Start: 06-04-2014 End: 06-04-2014 Results Review Roxana Muir RN [facility] [place] Start: 05-15-2014 End: 05-15-2014 Patient encounter procedure Roxana Muir RN [facility] [place], [facility] Start: 05-15-2014 End: 05-15-2014 Office outpatient visit 15 minutes Roxana Muir RN [facility] [place], [facility] Start: 04-26-2014 End: 04-26-2014 Medication Refill/Order Roxana Muir RN [facility] [place], [facility] Start: 04-23-2014 End: 04-23-2014 Lab Only Roxana Muir RN [facility] Start: 02-16-2014 End: 02-16-2014 Results Review Roxana Muir RN [facility], [facility] Start: 02-12-2014 End: 02-12-2014 Lab Only Roxana Miur RN [facility] [place], [facility] Start: 02-12-2014 End: 02-12-2014 Office outpatient visit 15 minutes Roxana Muir RN [facility] [place], [facility] Start: 12-17-2013 End: 12-17-2013 Follow-up encounter Roxana Muir RN [facility] Start: 12-17-2013 End: 12-17-2013 Historical Summary Roxana Muir RN [facility] [place] Start: 12-12-2013 End: 12-12-2013 Patient encounter procedure Roxana Muir RN [facility] [place], [facility] Start: 08-20-2013 End: 08-20-2013 Medication Refill/Order Roxana Muir RN [facility] [place] Start: 08-20-2013 End: 08-20-2013 Results Review Roxana Muir RN [facility] [place], [facility] Start: 08-16-2013 End: 08-16-2013 Lab Only Roxana Muir RN [facility] [place] Start: 08-16-2013 End: 08-16-2013 Patient encounter procedure Roxana Muir RN [facility] [place], [facility] Start: 07-28-2013 End: 07-28-2013 Medication Refill/Order Roxana Muir RN [facility], [facility] Start: 06-01-2013 End: 06-01-2013 Medication Refill/Order Roxana Muir RN [facility] Start: 04-11-2013 End: 04-11-2013 Results Review Rxoana Muir RN [facility] [place], [facility] Start: 04-07-2013 End: 04-07-2013 Patient encounter procedure Roxana Muir RN [facility] [place] Start: 03-18-2013 End: 03-18-2013 Results Review Roxana Muir RN [facility], [facility] Start: 02-15-2013 End: 02-15-2013 Patient encounter procedure Roxana Muir RN [facility] [place], [facility] Start: 02-12-2013 End: 02-12-2013 Medication Refill/Order Roxana Muir RN [facility] [place] Start: 02-12-2013 End: 02-12-2013 Patient encounter procedure Roxana Muir RN [facility] [place], [facility] Start: 08-15-2012 End: 08-15-2012 Patient encounter procedure Roxana Muir RN [facility] [place] Start: 07-03-2012 End: 07-03-2012 Medication Refill/Order Roxana Muir RN [facility] [place] Start: 07-01-2012 End: 07-01-2012 Medication Refill/Order Roxana Muir RN [facility] [place] Start: 06-17-2012 End: 06-17-2012 Patient encounter procedure Roxana Muir RN [facility] [place], [facility] Start: 12-02-2011 End: 12-02-2011 Patient encounter procedure Roxana Muir RN [facility] [place] Start: 11-10-2011 End: 11-10-2011 Nursing evaluation of patient and report Roxana Muir RN [facility] [place] Start: 10-21-2011 End: 10-21-2011 Procedure Order Roxana Muir RN [facility] [place] Start: 08-10-2011 End: 08-10-2011 Nursing evaluation of patient and report Roxana Muir RN [facility] [place] Start: 06-09-2011 End: 06-09-2011 Patient encounter procedure Roxana Muir RN [facility] [place] Start: 06-03-2011 End: 06-03-2011 Medication Refill/Order Roxana Muir RN [facility] [place] Start: 05-19-2011 End: 05-19-2011 Injection/immunization only Roxana Muir RN [facility] [place] Start: 05-03-2011 End: 05-03-2011 Medication Refill/Order Roxana Muir RN [facility] [place] Start: 04-30-2011 End: 04-30-2011 Medication Refill/Order Roxana Muir RN [facility] [place] Start: 04-27-2011 End: 04-27-2011 Procedure Order Roxana Muir RN [facility] [place] Start: 04-07-2011 End: 04-07-2011 Results Review Roxana Muir RN [facility] [place] Start: 04-05-2011 End: 04-05-2011 Admission to same day surgery center Roxana Muir RN [facility] [place] Start: 03-25-2011 End: 03-25-2011 Injection/immunization only Roxana Muir RN [facility] [place] Start: 03-24-2011 End: 03-24-2011 Patient encounter procedure Roxana Muir RN [facility] [place] Start: 03-03-2011 End: 03-03-2011 Patient encounter procedure Roxana Muir RN [facility] [place] Start: 03-01-2011 End: 03-01-2011 Medication Refill/Order Roxana Muir RN [facility] [place] Start: 02-17-2011 End: 02-17-2011 Patient encounter procedure Roxana Muir RN [facility] [place] Start: 11-27-2010 End: 11-27-2010 Injection/immunization only Roxana Muir RN [facility] [place] Start: 11-03-2010 End: 11-03-2010 Results Review Roxana Muir RN [facility] [place] Start: 10-27-2010 End: 10-27-2010 Historical Summary Roxana Muir RN [facility] [place] Start: 08-27-2010 End: 08-27-2010 Injection/immunization only Roxana Muir RN [facility] [place] Start: 07-31-2010 End: 07-31-2010 Medication Refill/Order Roxana Muir RN [facility] Start: 07-30-2010 End: 07-30-2010 Historical Summary Roxana Muir RN [facility] [place] Start: 07-15-2010 End: 07-15-2010 Phone Encounter Roxana Muir RN [facility] [place] Start: 07-06-2010 End: 07-06-2010 Results Review Roxana Muir RN [facility] [place] Start: 07-03-2010 End: 07-03-2010 Nursing evaluation of patient and report Roxana Muir RN [facility] [place] Start: 06-19-2010 End: 06-19-2010 Patient encounter procedure Roxana Muir RN [facility] [place] Start: 06-11-2010 End: 06-11-2010 Patient encounter procedure Roxana Muir RN [facility] [place] Start: 05-22-2010 End: 05-22-2010 Medication Refill/Order Roxana Muir RN [facility] [place] Start: 03-19-2010 End: 03-19-2010 Nursing evaluation of patient and report Roxana Muir RN [facility] [place] Start: 03-18-2010 End: 03-18-2010 Historical Summary Roxana Muir RN [facility] [place] Start: 02-16-2010 End: 02-16-2010 Historical Summary Roxana Muir RN [facility] [place] Start: 11-07-2009 End: 11-07-2009 Historical Summary Roxana Muir RN [facility] [place], [employer] Procedures Date Procedure Procedure Detail Performing Clinician Start: 04-03-2025 Urinalysis KILO RODRIGUEZ Comment on above: Result Comment: URIN ALYSIS Performed By: #### [id number] #### [facility],[address] [place] [address] Start: 01-22-2025 Colonoscopy Kassie muhammad HUMAN RESOURCES TRAINING MANAGER-C Work Phone: Start: 01-15-2025 CT of abdomen and pe lvis without contrast Kassie Polanco HUMAN RESOURCES TRAINING MANAGER-C Work Phone: Start: 01-03-2025 Anaerobic microbial culture Kassie Polanco HUMAN RESOURCES TRAINING MANAGER-C Work Phone: Start: 01-03-2025 Gram stain microscopy Abel Polanco HUMAN RESOURCES TRAINING MANAGER-C Work Phone: Start: 01-03-2025 End: 01-03-2025 Microbial culture, routine Kassie francisco HUMAN RESOURCES TRAINING MANAGER-C Work Phone: Start: 11-22-2024 Anaerobic microbial culture Kassie Polanco HUMAN RESOURCES TRAINING MANAGER-C Work Phone: Start: 11-22-2024 Gram stain microscopy D justino Polanco HUMAN RESOURCES TRAINING MANAGER-C Work Phone: Start: 11-22-2024 End: 11-22-2024 Microbial culture, routine Kassie francisco HUMAN RESOURCES TRAINING MANAGER-C Work Phone: Start: 10-25-2024 Urinalysis KILO SUSMHA CHEUNGY Comment on above: Result Comment: URIN ALYSIS Performed By: #### [id number] #### [facility],[address] [place] [address] Start: 10-05-2022 Antibody screen CHELSY POLANCO Comment on above: Order Comment: Speci men Type: BLOOD SPECIMENOrdering Facility: [facility] Address: [address] [place] [address] Performed By: #### 1 [id number] #### [facility] CLIA [id number] [address] OF [place] #### BACPCR #### [facility] CLIA [id number] [facility] [id number] [place] [address] OF [place] Start: 01-19-2022 Radiography of sacro coccygeal spine HUMAN RESOURCES TRAINING MANAGER-C Kassie Polanco HUMAN RESOURCES TRAINING MANAGER Work Phone: Start: 01-19-2022 X-ray of lumbar spin e, two or three views HUMAN RESOURCES TRAINING MANAGER-C Kassie Polanco HUMAN RESOURCES TRAINING MANAGER Work Phone: Start: 10-12-2021 CT of abdomen and pe lvis without contrast Start: 10-09-2021 [employer] Start: 10-03-2018 End: 10-03-2018 Dischrg meds reconciled w/current med list Nolan WOLF MD Work Phone: Start: 10-03-2018 End: 10-03-2018 Urinary Incontinence Shantell Lopez RN Comment on above: Negative. caths self Start: 06-12-2018 End: 06-12-2018 Dischrg meds reconciled w/current med list CHRISTOPHE PENA MD Work Phone: Start: 04-12-2018 End: 04-12-2018 Extraction bladder stone, lithotripsy R kidney stone RAAD NAGY Comment on above: Carri Godinez Start: 04-06-2018 End: 04-06-2018 ureteroscopy R RAAD NAGY Comment on above: With stent placement and stone fragment removal Start: 03-28-2018 End: 03-28-2018 Dischrg meds reconciled w/current med list Nolan WOLF MD Work Phone: Start: 03-11-2018 End: 03-11-2018 Echocardiography RAAD NAGY Comment on above: Normal. EF 60% ([place] ter inpt) Start: 03-06-2018 End: 03-06-2018 CT of abdomen RAAD NAGY Comment on above: CT Abd./Pel.R hydro; calc alyson pelv/R distal uret; ? shunt fragment in pelvis; ? GB calculi Start: 05-06-2017 End: 05-06-2017 Screening mammography MARY TORRES Comment on above: U/S Breast L nl Start: 11-12-2014 End: 11-13-2014 Chest x-ray Nolan WOLF MD Work Phone: Start: 05-15-2014 End: 05-15-2014 Therapeutic prophylactic/dx injection subq/im MARILEE LUGO MD Work Phone: Start: 04-07-2013 End: 04-07-2013 Ceftriaxone sodium injection MARILEE LANGFORD MD Work Phone: Start: 04-07-2013 End: 04-07-2013 Therapeutic prophylactic/dx injection subq/im MARILEE LUGO MD Work Phone: Start: 03-14-2013 End: 03-14-2013 Cholecystectomy RAAD NAGY Comment on above: Lap, Lysis of adhesi ons, revision V-P shunt, [facility] Start: 11-10-2011 End: 11-10-2011 Medrxyprogester acetate inj MARILEE L RAMAKRISHNA BURGESS MD Work Phone: Start: 08-10-2011 End: 08-10-2011 Medrxyprogester acetate inj MARILEE L DUTC HER MD Work Phone: Start: 05-19-2011 End: 05-19-2011 Medrxyprogester acetate inj MARILEE BURGESS MD Work Phone: Start: 02-17-2011 End: 02-17-2011 Medrxyprogester acetate inj MARILEE BURGESS MD Work Phone: Start: 11-27-2010 End: 11-27-2010 Medrxyprogester acetate inj [facility] Start: 08-27-2010 End: 08-27-2010 Medrxyprogester acetate inj CHRISTOPHE Roman Work Phone: Start: 08-27-2010 End: 08-27-2010 Therapeutic prophylactic/dx injection subq/im CHRISTOPHE PENA MD Work Phone: Start: 06-11-2010 End: 06-11-2010 Medrxyprogester acetate inj CHRISTOPHE Roman Work Phone: Start: 06-11-2010 End: 06-11-2010 Therapeutic prophylactic/dx injection subq/im CHRISTOPHE PENA MD Work Phone: Start: 03-19-2010 End: 03-19-2010 Medrxyprogester acetate inj CHRISTOPHE Roman Work Phone: Anaerobic microbial culture HUMAN RESOURCES TRAINING MANAGER-C Kassie Polanco HUMAN RESOURCES TRAINING MANAGER Work Phone: Anaerobic microbial culture HUMAN RESOURCES TRAINING MANAGER-C Kassie Polanco HUMAN RESOURCES TRAINING MANAGER Work Phone: Anaerobic microbial culture HUMAN RESOURCES TRAINING MANAGER-C Kassie Polanco HUMAN RESOURCES TRAINING MANAGER Work Phone: Anaerobic microbial culture HUMAN RESOURCES TRAINING MANAGER-C Kassie Polanco HUMAN RESOURCES TRAINING MANAGER Work Phone: Investigation of tra nsfusion reaction HUMAN RESOURCES TRAINING MANAGER-Martell Polanco HUMAN RESOURCES TRAINING MANAGER Work Phone: Investigation of tra nsfusion reaction HUMAN RESOURCES TRAINING MANAGER-C Kassie Polanco HUMAN RESOURCES TRAINING MANAGER Work Phone: Investigation of tra nsfusion reaction HUMAN RESOURCES TRAINING MANAGER-Martell Polanco HUMAN RESOURCES TRAINING MANAGER Work Phone: Investigation of tra nsfusion reaction HUMAN RESOURCES TRAINING MANAGER-C Kassie Polanco HUMAN RESOURCES TRAINING MANAGER Work Phone: Microbial culture, routine N P-C Kassie Polanco HUMAN RESOURCES TRAINING MANAGER Work Phone: Microbial culture, routine N P-C Kassie Polanco HUMAN RESOURCES TRAINING MANAGER Work Phone: Microbial culture, routine N P-C Kassie Polanco HUMAN RESOURCES TRAINING MANAGER Work Phone: Microbial culture, routine N P-C Kassie Polanco HUMAN RESOURCES TRAINING MANAGER Work Phone: Mitrofanoff appendicovesicostomy present RAAD NAGY Comment on above: (AKA Umbilical urina ry stoma); uses for self-catheterization Plan of Treatment Date Care Activity Detail Author Start: 03-28-2025 Non-patient / Non-visit Non-patient / Non-visit -[facility] Work Phone: Start: 03-28-2025 Registered Recurring Pressure ulcer of sacral region, stage 3 [facility] Work Phone: Start: 01-22-[address] [facility] Start: 01-22-2025 Colonoscopy flx dx w/collj spec when pfrmd DIAGNOSTIC COLONOSCOPY [facility] Start: 01-22-2025 Patient discharge [facility] Start: 01-03-2025 Anaerobic Culture Anaerobic Culture [facility] Start: 01-03-2025 Wound Culture Wound Culture [facility] Start: 01-03-[address] [facility] Start: 08-04-2022 End: 10-04-2022 aPTT in Platelet poor plasma by Coagulation assay ACTIVATED PTT Lab Routine Pressure injury of sacral region, stage 4 (HCC) Expected: 08/04/2022, Expires: 10/04/2022 [facility] Work Phone: Comment on above: Expected: 08/04/2022 , Expires: 10/04/2022 Start: 08-04-2022 End: 10-04-2022 CBC W Auto Differential panel - Blood CBC + DIFF Lab Routine Pressure injury of sacral region, stage 4 (HCC) Expected: 08/04/2022, Expires: 10/04/2022 [facility] Work Phone: Comment on above: Expected: 08/04/2022 , Expires: 10/04/2022 Start: 08-04-2022 End: 10-04-2022 Comprehensive metabolic 2000 panel - Serum or Plasma COMP METABOLIC PANEL Lab Routine Pressure injury of sacral region, stage 4 (HCC) Expected: 08/04/2022, Expires: 10/04/2022 [facility] Work Phone: Comment on above: Expected: 08/04/2022 , Expires: 10/04/2022 Start: 08-04-2022 End: 10-04-2022 Hepatic function 2000 panel - Serum or Plasma HEPATIC FUNCTION PNL Lab Routine Pressure injury of sacral region, stage 4 (HCC) Expected: 08/04/2022, Expires: 10/04/2022 [facility] Work Phone: Comment on above: Expected: 08/04/2022 , Expires: 10/04/2022 Start: 08-04-2022 End: 10-04-2022 Prealbumin [Mass/volume] in Serum or Plasma PREALBUMIN BLD Lab Routine Pressure injury of sacral region, stage 4 (HCC) Expected: 08/04/2022, Expires: 10/04/2022 [facility] Work Phone: Comment on above: Expected: 08/04/2022 , Expires: 10/04/2022 Start: 08-04-2022 End: 10-04-2022 PT panel - Platelet poor plasma by Coagulation assay PROTHROMBIN TIME/PT Lab Routine Pressure injury of sacral region, stage 4 (HCC) Expected: 08/04/2022, Expires: 10/04/2022 [facility] Work Phone: Comment on above: Expected: 08/04/2022 , Expires: 10/04/2022 Start: 06-06-2022 DEPRESSION ASSESSMENT DEPRESSION ASS ESSMENT [facility] Start: 2020 COLOGUARD (FIT-DNA) COLOGUARD (FIT-D NA) [facility] Start: 2020 Colonoscopy COLONOSCOPY [facility] Start: 2020 COLORECTAL CANCER SCREENING COLORECTAL CANCER SCREENING [facility] Start: [address] COLONOGRAPHY [facility] Start: 2020 DIABETES SCREEN DIABETES SCREEN [facility] Start: 2020 FECAL OCCULT BLOOD FECAL OCCULT BLOO D [facility] Start: 2020 LIPID SCREEN LIPID SCREEN [facility] Start: 2020 SIGMOIDOSCOPY SIGMOIDOSCOPY [facility] Start: 06-12-2018 Patient Education SINUSITIS In dication: Acute sinusitis, recurrence not specified, unspecified location Start: 12-Jun-2018 Instruction Type: Patient Education [employer]; [employer]. Start: 10-10-2017 Culture bacterial quanttative colony count urine URINE JEANETTE CULTURE-EVENS COL COUNT ([id number]) Start: 10-Oct-2017 11:41 Request [employer] [employer]. Start: 09-13-2017 Culture bacterial quanttative colony count urine URINE JEANETTE CULTURE-EVENS COL COUNT ([id number]) Start: 13-Sep-2017 15:43 [facility] [facility] [employer]. Start: 08-22-2017 Culture bacterial quanttative colony count urine URINE JEANETTE CULTURE-EVENS COL COUNT ([id number]) Start: 22-Aug-2017 16:14 Request [facility] [facility] Start: 08-22-2017 Culture bct isol&prsmptv id isolate ea urine URINE JEANETTE CULTURE-ID ([id number]) Start: 22-Aug-2017 16:14 [facility] [employer] Start: 05-05-2017 Culture bacterial quanttative colony count urine URINE JEANETTE CULTURE-EVENS COL COUNT ([id number]) Start: 05-May-2017 10:38 Request [facility] [facility] [employer]. Start: 05-05-2017 Culture bct isol&prsmptv id isolate ea urine URINE JEANETTE CULTURE-ID ([id number]) Start: 05-May-2017 10:38 Request [facility] [facility] [employer] Start: 05-02-2017 Urinls dip stick/tab let reagnt non-auto micrscpy URINALYSIS W MICROSCOPY ([id number]) Start: 02-May-2017 16:56 [facility] [facility] [employer] [facility] [employer] Start: 06-08-2016 Culture bacterial quanttative colony count urine URINE JEANETTE CULTURE-EVENS COL COUNT ([id number]) Start: 08-Jun-2016 11:28 Request [employer] [facility] [employer] Start: 06-08-2016 Culture bct isol&prsmptv id isolate ea urine URINE JEANETTE CULTURE-ID ([id number]) Start: 08-Jun-2016 11:28 Request [facility] [facility] [employer] [employer] [facility] [employer] Start: 06-08-2016 Urinls dip stick/tab let reagnt non-auto micrscpy URINALYSIS W MICROSCOPY ([id number]) Start: 08-Jun-2016 11:28 [facility] [facility] [employer] [employer] [facility] [employer] Start: 04-09-2016 Patient Education CELLULITIS I ndication: Cellulitis of foot, right Start: 09-Apr-2016 Instruction Type: Patient Education [employer] [facility] [employer]. Start: 2016 Patient Education [employer] [facility] [employer] Start: 2016 Culture bacterial quanttative colony count urine URINE JEANETTE CULTURE-EVENS COL COUNT ([id number]) Start: 29-Mar-2016 11:22 Request [employer] [facility] [employer] Start: 02-17-2016 Culture bacterial quanttative colony count urine URINE JEANETTE CULTURE-EVENS COL COUNT ([id number]) Start: 17-Feb-2016 16:50 Request [employer] [employer] Start: 02-17-2016 Culture bct isol&prsmptv id isolate ea urine URINE JEANETTE CULTURE-ID ([id number]) Start: 17-Feb-2016 16:49 Request [employer] Start: 09-12-2015 Culture bacterial quanttative colony count urine URINE JEANETTE CULTURE-EVENS COL COUNT ([id number]) Start: 12-Sep-2015 16:39 Request [employer] [employer]. Start: 08-02-2015 Patient Education SINUSITIS In dication: Sinusitis (Renamed from Sinus infection) Start: 02-Aug-2015 Instruction Type: Patient Education [employer] Start: 06-03-2015 Culture bacterial quanttative colony count urine URINE JEANETTE CULTURE-EVENS COL COUNT ([id number]) Start: 03-Jun-2015 15:22 Request [employer] Start: 06-03-2015 Culture bct isol&prsmptv id isolate ea urine URINE JEANETTE CULTURE-ID ([id number]) Start: 03-Jun-2015 15:22 Request [employer] [employer] Start: 2015 Mammography MAMMOGRAM [facility] Start: 02-24-2015 Culture bacterial quanttative colony count urine URINE JEANETTE CULTURE-EVENS COL COUNT ([id number]) Start: 24-Feb-2015 16:30 Request [employer] [facility] [employer] Start: 11-04-2014 Patient Education SINUSITIS In dication: Sinusitis (Renamed from Sinus infection) Start: 04-Nov-2014 Instruction Type: Patient Education [employer] Start: 09-02-2014 Urinls dip stick/tab let reagnt non-auto micrscpy URINALYSIS W MICROSCOPY ([id number]) Start: 02-Sep-2014 15:05 Request [employer] [employer] Start: 09-02-2014 Culture bacterial quanttative colony count urine URINE JEANETTE CULTURE-EVENS COL COUNT ([id number]) Start: 02-Sep-2014 15:04 Request [employer] Start: 09-02-2014 Culture bct isol&prsmptv id isolate ea urine URINE JEANETTE CULTURE-ID ([id number]) Start: 02-Sep-2014 15:04 Request [employer] [employer]. Start: 05-15-2014 Ceftriaxone sodium injection INJECTION, CEFTRIAXONE SODIUM, PER 250 MG ([id number]) X 4 Start: 15-May-2014 Intent [employer]; [facility] [employer]. Start: 04-23-2014 Culture bacterial quanttative colony count urine URINE JEANETTE CULTURE-EVENS COL COUNT ([id number]) Start: 23-Apr-2014 10:44 Request [employer] [employer]. Start: 04-23-2014 Culture bct isol&prsmptv id isolate ea urine URINE JEANETTE CULTURE-ID ([id number]) Start: 23-Apr-2014 10:44 Request [employer] [employer]. Start: 04-23-2014 Urinalysis qual/semiquant except immunoassays URINALYSIS ([id number]) Start: 23-Apr-2014 10:44 Request [employer] [employer]. Start: 08-16-2013 Culture bct isol&prsmptv id isolate ea urine URINE JEANETTE CULTURE-ID ([id number]) Start: 16-Aug-2013 16:46 [facility] [employer] [employer].; [facility] [employer]. Start: 08-16-2013 Patient Education DEPRESSION I ndication: Mild episode of recurrent major depressive disorder Start: 16-Aug-2013 Instruction Type: Patient Education [employer] [facility] [employer]. Start: 04-07-2013 Patient Education [employer] [facility] [employer]. Start: 04-07-2013 Culture bacterial quanttative colony count urine URINE JEANETTE CULTURE-EVENS COL COUNT ([id number]) Start: 07-Apr-2013 9:44 Request [employer] [employer].; [facility] [employer]. Start: 02-12-2013 Culture bacterial quanttative colony count urine URINE JEANETTE CULTURE-EVENS COL COUNT ([id number]) Start: 12-Feb-2013 11:00 [facility] [employer] [facility] [employer]. Start: 08-15-2012 Patient Education Sinusitis *: sinus infection Indication: Sinusitis acute Start: 15-Aug-2012 Instruction Type: Patient Education [employer]; [employer] [facility] [employer]. Start: 06-17-2012 Patient Education [facility] [employer].; [employer] [facility] [place]. Start: 06-09-2011 Patient Education BRONCHITIS, ACUTE Indication: Acute upper respiratory infection of multiple sites Start: 09-Jun-2011 Instruction Type: Patient Education [employer] [facility] [employer]. Start: 04-27-2011 Urnls dip stick/tabl et rgnt non-auto w/o micrscp URINALYSIS W/O MICROSCOPY ([id number]) Start: 27-Apr-2011 13:45 Request [employer]; [employer] [facility] [employer]. Start: 04-27-2011 Culture bacterial quanttative colony count urine URINE JEANETTE CULTURE-EVENS COL COUNT ([id number]) Start: 27-Apr-2011 13:44 Request [employer]; [employer] [facility] [employer]. Start: 04-27-2011 Culture bct isol&prsmptv id isolate ea urine URINE JEANETTE CULTURE-ID ([id number]) Start: 27-Apr-2011 13:44 Request [employer]; [employer] [facility] [employer]. Start: 04-05-2011 Exc b9 lesion mrgn x cp sk tg t/a/l 0.5 cm/< EXC TRUNK-EXTREM BENIGH W/MARGINS < 0.5 CM ([id number]) Start: 05-Apr-2011 Intent [facility] [employer]; [employer] [facility] [employer]. Start: 03-24-2011 Patient Education WART Indicat ion: Viral warts (Renamed from Cutaneous wart) Start: 24-Mar-2011 Instruction Type: Patient Education [employer] [facility] [employer]. Start: 02-17-2011 Patient Education PNEUMONIA In dication: Pneumonia (Renamed from PNA (pneumonia)) Start: 17-Feb-2011 Instruction Type: Patient Education [employer]; [facility] [place], [employer]. Start: 03-19-2010 Admin pneumococcal vaccine ADMINISTRATION OF PNEUMOCOCCAL VACCINE ([id number]) Start: 19-Mar-2010 [email or web address] [place], [facility]. Start: 2005 HPV TESTING HPV TESTING [facility] Start: 1996 PAP TESTING PAP TESTING [facility] Start: 1994 Urine microalbumin profile DTAP,TDAP,TD (1 - Tdap) [facility] Start: 1993 HEPATITIS C SCREENING HEPATITIS C SC REENING [facility] Start: 1993 HIV SCREENING HIV SCREENING [facility] Start: 1975 COVID-19 VACCINE (#1) COVID-19 VACCI NE (#1) [facility] Start: 1975 HEPATITIS B (1 of 3 - 3-dose series) HEPATITIS B (1 of 3 - 3-dose series) [facility] Bacteria identified in Unspecified specimen by Anaerobe culture [facility] Patient referral [facility] Work Phone: Thyroid stimulating hormone measurement [facility] Wound microscopy, culture and sensitivities [facility] cefTRIAXone 1 gr am solution for injection Ordered: 15-May-2014 MD MARILEE LUGO [facility], [employer].; [facility], [place], [facility]. Immunizations Immunization Date Immunization Notes Care Provider Masoud perla 03-09-2018 Influenza virus vaccine W [facility] 09-13-2017 influenza virus vaccine, unspecified formulation Roxana Muir RN [facility], [facility].; [facility], [place], Inc[employer] Comment on above: Had immunization. 06-06-2017 pneumococcal conjuga te vaccine, 13 valent Roxana Muir RN [facility], Inc.; [employer] [facility], [facility] 03-25-2017 influenza, seasonal, injectable Roxana Muir RN [facility], [facility].; [facility] [place], Inc. Comment on above: @ 10-18-2013 measles, mumps and rubella virus vaccine Roxana Muir RN [facility], [facility].; [facility] [place], Inc. 08-19-2011 tetanus toxoid, redu carol diphtheria toxoid, and acellular pertussis vaccine, adsorbed Roxana Muir RN [facility], [facility].; [facility], [place], [facility]. 03-24-2011 influenza, seasonal, injectable Roxana Muir RN [facility], [facility].; [facility], [place], Inc. Comment on above: given at [facility] 03-14-2011 pneumococcal polysaccharide vaccine, 23 marlene Quinn MD Work Phone: [facility] 03-19-2010 pneumococcal polysaccharide vaccine, 23 valent Roxana Muir RN [facility], [facility].; [employer] [facility], Inc[facility] Comment on above: Site: Anterior Thigh (Right) 09-23-2003 tetanus and diphther ia toxoids, adsorbed, preservative free, for adult use (2 Lf of tetanus toxoid and 2 Lf of diphtheria toxoid) Roxana Muir RN [facility], [facility].; [facility], [place], [facility]. 12-21-1994 measles, mumps and rubella virus vaccine Roxana Muir RN [facility], Inc.; [facility] [place], Inc. 12-21-1994 tetanus and diphther ia toxoids, adsorbed, preservative free, for adult use (2 Lf of tetanus toxoid and 2 Lf of diphtheria toxoid) Roxana Muir RN [facility], Inc.; [facility], [place], Inc. 12-19-1980 diphtheria, tetanus toxoids and acellular pertussis vaccine Roxana Muir RN [facility], Inc.; [facility], [place], [facility]. 12-19-1980 trivalent poliovirus vaccine, live, oral Roxana Muir RN [facility], [facility].; [facility], [place], [facility]. 02-19-1978 diphtheria, tetanus toxoids and pertussis vaccine Roxana Muir RN [facility], Inc.; [facility] [place], Inc. 02-19-1978 measles, mumps and rubella virus vaccine Roxana Muir RN [facility], Inc.; [facility], [place], Inc. 02-19-1978 trivalent poliovirus vaccine, live, oral Roxana Muir RN [facility], Inc.; [facility], [place], [facility]. 1975 diphtheria, tetanus toxoids and pertussis vaccine Roxana Muir RN [facility].; [facility] 1975 trivalent poliovirus vaccine, live, oral Roxana Muir RN [facility], [facility].; [facility]. 1975 diphtheria, tetanus toxoids and pertussis vaccine Roxana Muir RN [facility], [facility].; [facility], [place], [facility]. 1975 trivalent poliovirus vaccine, live, oral Roxana Muir RN [facility], [facility].; [facility], [place], [facility] Payers Date Payer Category Payer Self-pay [id number] 2017 Medicare [id number] 2013 Medicaid [id number] 2013 Medicaid MEDICAID [facility] MEDICAID [id number] 2013-Present [phone] [address] [place] [address] Medicaid [id number] 1975 Unknown [id number] 1975 Unknown [id number] 2..1.260353.3.579.2.627 1975 Unknown [id number] 2.0.1.462729.3.579.2.651 1975 Unknown [id number] 2.0.1.886167.3.579.2.651 1975 Unknown [id number] 2.840.1.670181.3.579.2.651 Medicare [id number] Unknown Unknown [id number] .840.1.667926.3.579.2.462 Unknown [id number] 2.16.840.1.063769.3.579.2.462 Unknown [id number] 2.16.840.1.116600.3.579.2.462 Unknown [id number] 2.16.840.1.904321.3.579.2.462 Unknown [id number] 2.840.1.916039.3.579.2.462 Unknown [id number] 2.840.1.030490.3.579.2.462 Unknown [id number] 2.840.1.491637.3.579.2.462 Unknown [id number] 2.840.1.882696.3.579.2.462 Unknown [id number] 2.840.1.007551.3.579.2.462 Unknown [id number] 2.840.1.559453.3.579.2.462 Unknown [id number] .840.1.485699.3.579.2.462 Unknown [id number] .840.1.686135.3.579.2.462 Unknown [id number] 2.840.1.338417.3.579.2.462 Unknown [id number] 2.840.1.652451.3.579.2.462 Unknown [id number] 2.840.1.624287.3.579.2.462 Unknown [id number] 2.840.1.673863.3.579.2.462 Unknown [id number] 2.840.1.205199.3.579.2.462 Unknown [id number] 2.840.1.955811.3.579.2.462 Unknown [id number] 2.840.1.676723.3.579.2.462 Unknown [id number] 2.16.840.1.936424.3.579.2.462 Unknown [id number] 2.16.840.1.769301.3.579.2.462 Unknown [id number] 2.16.840.1.832521.3.579.2.462 Unknown [id number] 2.16.840.1.089261.3.579.2.462 Unknown [id number] 2.16840.1.265197.3.579.2.462 Unknown [id number] 2.16.840.1.212869.3.579.2.462 Unknown [id number] 2.16840.1.531309.3.579.2.462 Unknown [id number] 2.840.1.776006.3.579.2.462 Social History Date Type Detail Facility Start: 09-19-2020 End: 10-28-2021 Tobacco smoking status [facility] Unknown if ever smoked 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 [facility].; [facility], [place], [facility]. Tobacco use: Tobacco use: ; N ever smoker. [facility].; [facility] [place], Inc Not [facility] Medical Equipment Procedure Code Equipment Code Equipment Origin al Text Equipment Identifier Dates Cystoscopy, with retrograde pyelogram and ureteral stent insertion STENT,URETERAL PIGTAIL 6FRx22 FDA Start: 09-12-2020 Cystoscopy, with retrograde pyelogram and ureteral stent insertion STENT,URETERAL PIGTAIL 6FRx22 FDA Start: 09-12-2020 Cystoscopy, with retrograde pyelogram and ureteral stent insertion STENT,URETERAL PIGTAIL 6FRx22 FDA Start: 09-12-2020 Cystoscopy, with retrograde pyelogram and ureteral stent insertion STENT,URETERAL PIGTAIL 6FRx22 FDA Start: 09-12-2020 Cystoscopy, with retrograde pyelogram and ureteral stent insertion STENT,URETERAL PIGTAIL 6FRx22 FDA Start: 09-12-2020 Cystoscopy, with retrograde pyelogram and ureteral stent insertion STENT,URETERAL PIGTAIL 6FRx22 FDA Start: 09-12-2020 Cystoscopy, with retrograde pyelogram and ureteral stent insertion STENT,URETERAL PIGTAIL 6FRx22 FDA Start: 09-12-2020 Cystoscopy, with retrograde pyelogram and ureteral stent insertion STENT,URETERAL PIGTAIL 6FRx22 FDA Start: 09-12-2020 Cystoscopy, with retrograde pyelogram and ureteral stent insertion STENT,URETERAL PIGTAIL 6FRx22 FDA Start: 09-12-2020 Cystoscopy, with retrograde pyelogram and ureteral stent insertion STENT,URETERAL PIGTAIL 6FRx22 FDA Start: 09-12-2020 Cystoscopy, with retrograde pyelogram and ureteral stent insertion STENT,URETERAL PIGTAIL 6FRx22 FDA Start: 09-12-2020 Cystoscopy, with retrograde pyelogram and ureteral stent insertion STENT,URETERAL PIGTAIL 6FRx22 FDA Start: 09-12-2020 Cystoscopy, with retrograde pyelogram and ureteral stent insertion STENT,URETERAL PIGTAIL 6FRx22 FDA Start: 09-12-2020 Cystoscopy, with retrograde pyelogram and ureteral stent insertion STENT,URETERAL PIGTAIL 6FRx22 FDA Start: 09-12-2020 Cystoscopy, with retrograde pyelogram and ureteral stent insertion STENT,URETERAL PIGTAIL 6FRx22 FDA Start: 09-12-2020 Cystoscopy, with retrograde pyelogram and ureteral stent insertion STENT,URETERAL PIGTAIL 6FRx22 FDA Start: 09-12-2020 Cystoscopy, with retrograde pyelogram and ureteral stent insertion STENT,URETERAL PIGTAIL 6FRx22 FDA Start: 09-12-2020 Cystoscopy, with retrograde pyelogram and ureteral stent insertion STENT,URETERAL PIGTAIL 6FRx22 FDA Start: 09-12-2020 Cystoscopy, with retrograde pyelogram and ureteral stent insertion STENT,URETERAL PIGTAIL 6FRx22 FDA Start: 09-12-2020 Cystoscopy, with retrograde pyelogram and ureteral stent insertion STENT,URETERAL PIGTAIL 6FRx22 FDA Start: 09-12-2020 Cystoscopy, with retrograde pyelogram and ureteral stent insertion STENT,URETERAL PIGTAIL 6FRx22 FDA Start: 09-12-2020 Cystoscopy, with laser litholapaxy STENT,URET PIGTAIL 6x22 FDA Start: 04-12-2018 Cystoscopy, with laser litholapaxy STENT,URET PIGTAIL 6x22 FDA Start: 04-12-2018 Cystoscopy, with laser litholapaxy STENT,URET PIGTAIL 6x22 FDA Start: 04-12-2018 Cystoscopy, with laser litholapaxy STENT,URET PIGTAIL 6x22 FDA Start: 04-12-2018 Cystoscopy, with laser litholapaxy STENT,URET PIGTAIL 6x22 FDA Start: 04-12-2018 Cystoscopy, with laser litholapaxy STENT,URET PIGTAIL 6x22 FDA Start: 04-12-2018 Cystoscopy, with laser litholapaxy STENT,URET PIGTAIL 6x22 FDA Start: 04-12-2018 Cystoscopy, with laser litholapaxy STENT,URET PIGTAIL 6x22 FDA Start: 04-12-2018 Cystoscopy, with laser litholapaxy STENT,URET PIGTAIL 6x22 FDA Start: 04-12-2018 Cystoscopy, with laser litholapaxy STENT,URET PIGTAIL 6x22 FDA Start: 04-12-2018 Cystoscopy, with laser litholapaxy STENT,URET PIGTAIL 6x22 FDA Start: 04-12-2018 Cystoscopy, with laser litholapaxy STENT,URET PIGTAIL 6x22 FDA Start: 04-12-2018 Cystoscopy, with laser litholapaxy STENT,URET PIGTAIL 6x22 FDA Start: 04-12-2018 Cystoscopy, with laser litholapaxy STENT,URET PIGTAIL 6x22 FDA Start: 04-12-2018 Cystoscopy, with laser litholapaxy STENT,URET PIGTAIL 6x22 FDA Start: 04-12-2018 Cystoscopy, with laser litholapaxy STENT,URET PIGTAIL 6x22 FDA Start: 04-12-2018 Cystoscopy, with laser litholapaxy STENT,URET PIGTAIL 6x22 FDA Start: 04-12-2018 Cystoscopy, with laser litholapaxy STENT,URET PIGTAIL 6x22 FDA Start: 04-12-2018 Cystoscopy, with laser litholapaxy STENT,URET PIGTAIL 6x22 FDA Start: 04-12-2018 Cystoscopy, with laser litholapaxy STENT,URET PIGTAIL 6x22 FDA Start: 04-12-2018 Cystoscopy, with laser litholapaxy STENT,URET PIGTAIL 6x22 FDA Start: 04-12-2018 STENT,URETERAL 6 FR PIG 6X26 FDA Start: 03-23-2019 STENT,URETERAL 6 FR PIG 6X26 FDA Start: 03-23-2019 STENT,URETERAL 6 FR PIG 6X26 FDA Start: 03-23-2019 STENT,URETERAL 6 FR PIG 6X26 FDA Start: 03-23-2019 STENT,URETERAL 6 FR PIG 6X26 FDA Start: 03-23-2019 STENT,URETERAL 6 FR PIG 6X26 FDA Start: 03-23-2019 STENT,URETERAL 6 FR PIG 6X26 FDA Start: 03-23-2019 STENT,URETERAL 6 FR PIG 6X26 FDA Start: 03-23-2019 STENT,URETERAL 6 FR PIG 6X26 FDA Start: 03-23-2019 STENT,URETERAL 6 FR PIG 6X26 FDA Start: 03-23-2019 STENT,URETERAL 6 FR PIG 6X26 FDA Start: 03-23-2019 STENT,URETERAL 6 FR PIG 6X26 FDA Start: 03-23-2019 STENT,URETERAL 6 FR PIG 6X26 FDA Start: 03-23-2019 STENT,URETERAL 6 FR PIG 6X26 FDA Start: 03-23-2019 STENT,URETERAL 6 FR PIG 6X26 FDA Start: 03-23-2019 STENT,URETERAL 6 FR PIG 6X26 FDA Start: 03-23-2019 STENT,URETERAL 6 FR PIG 6X26 FDA Start: 03-23-2019 STENT,URETERAL 6 FR PIG 6X26 FDA Start: 03-23-2019 STENT,URETERAL 6 FR PIG 6X26 FDA Start: 03-23-2019 STENT,URETERAL 6 FR PIG 6X26 FDA Start: 03-23-2019 STENT,URETERAL 6 FR PIG 6X26 FDA Start: 03-23-2019 Goals Date Patient Goal Desired Activity /State Mental Status Date Assessment Result Facility 01-22-2025 Cognitive function Voice/Name [facility] Work Phone: 11-04-2021 Cognitive function Awake;Alert;Appropriat e [facility] Work Phone: Clinical Notes 07-08-2022 to 03-07-2025 Note Date & Type Note Facility 03-07-2025 Progress note Note Date/Time March 07, 2025 12:17pm [facility] [address] [place] [address] Progress Note - Wound Care 03/07/25 1214 MR#: [id number] Acct: [id number] Name: JULIETTE CREWS RAI Rep #:[id number] : 1975 49 From: Savannah neri MD PCP: Kassie Polanco HUMAN RESOURCES TRAINING MANAGER-C Status:REG R CR Location: History of Present Illness Date of Service: 03/07/25 Chief Complaint: Sacral/Coccyx Ulcer History of Wound: Ms. Crews is a 49-year-old well-known to me. Recently discharged following healing of decubitus ulcers however, presents with a new sacral area ulcer. Said to have opened on Tuesday. 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 Had been off due to previous decubitus ulcers. Tuesday, new area of opening was noted. No chills, fever or feeling of unwell. Appetite is good. Progress of Wound: No new concerns at this time. Stays healed. Vaseline has been applied daily. Objective Data Objective Data Vital Signs: Vital Signs Temp Pulse Resp BP 97.8 F 98 18 116/82 H 03/07/25 11:23 03/07/25 11:23 03/07/25 11:23 03/07/25 11:23 Charges/Coding Visit Charges Office Visits / Consults: 56468 OV L3 Est 20min Physical Exam Const alert, oriented x3 and no apparent distress General Appearance: cooperative and well kempt HEENT normocephalic and hearing grossly normal bilaterally Head and Scalp: normal to inspection and atraumatic Neck full ROM and supple Resp normal respiratory effort Effort and Inspection: able to speak in complete sentences Neuro oriented x3 and CN's II-XII intact bilaterally Psych mental status grossly normal, cooperative and affect normal Appearance: grossly normal Attitude: calm Speech: normal speech Debridement Note Debridement Note Post-Debridement Measurements and Additional Note: Post-Debridement Measurements/Treatment WC - Nurse 1 - General Ulcer Assessment Start: 03/07/25 11:23 Freq: Status: Active Protocol: TOBIN Activity Type Activity Date Activity User E-sign Co-sign Detail Recorded Client Recorded Date Recorded By Document 03/07/25 11:23 RB [id number] 03/07/25 11:24 RB 03/07/25 11:23 - Today's Visit Information Type of service 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 ) Arrival Mode Ambulatory Transfer Assistance None Patient Identification Verified (Name & Yes ) Patient Requires Transmission-Based No Precautions Vital Signs Temperature (97.8 F-99.1 F) 97.8 F Temperature Source Temporal Pulse Rate (60-100) 98 Pulse Location Monitor Respiratory Rate (12-18) 18 Respiratory rate source Observation Blood Pressure (90/60-120/80) 116/82 H Blood Pressure Mean (mm Hg) 93 Source Monitor Position Semi-Fowlers Blood Pressure Location Left Arm History Since Last Visit- (Skip if this is Patient's initial visit) Have you changed medications since your No last visit? Any new allergies or adverse reactions No Had a fall/change in ADL's that may No increase risk of falls Signs or symptoms of abuse and/or No neglect since last visit Have you been in the hospital since your No last visit? Has dressing in place as prescribed Yes Has compression in place as prescribed N/A Has offloadiing in place as prescribed Yes Experienced any changes in pain level or No management Pain Scale: 0-10 Numeric Is Patient Pain Free? Yes - Nurse 1 - General Ulcer Measurement Start: 03/07/25 11:23 Freq: Status: Active Protocol: Activity Type Activity Date Activity User E-sign Co-sign Detail Recorded Client Recorded Date Recorded By Document 03/07/25 11:23 RB [id number] 03/07/25 11:24 RB 03/07/25 11:23 Wound Center Nurse 1 #9 coccyx -Combined with other wound No -Current Size (cm) - Length 0 -Current Size (cm) - Width 0 -Current Size (cm) - Depth 0 -Total Square Cm 0 -Photo Taken Yes -Epithelialization Large 67-100% WC - Nurse 2 - General Ulcer CM Notes Start: 03/07/25 11:23 Freq: Status: Active Protocol: Activity Type Activity Date Activity User E-sign Co-sign Detail Recorded Client Recorded Date Recorded By Document 03/07/25 11:42 [id number] 03/07/25 11:43 03/07/25 11:42 Wound Center Nurse 2 -Time 11:42 -Correct Patient Yes -Correct Side, Site, Position Yes -Correct Procedure No -Procedure Performed No -Tunneling No -Undermining/Tunneling No -Circular Undermining No -Wound/Ulcer Outcome Healed- Epithelialized -Ulcer Cleansing Not Cleansed -Foul Odor after Cleansing No -Bleeding Controlled with NA -Offloading No Pain Scale: 0-10 Numeric Is Patient Pain Free? Yes - Nurse 3 - General Ulcer D/C NN Start: 03/07/25 11:23 Freq: Status: Active Protocol: Activity Type Activity Date Activity User E-sign Co-sign Detail Recorded Client Recorded Date Recorded By Document 03/07/25 11:43 [id number] 03/07/25 11:45 03/07/25 11:43 Wound Care Center Nurse 3 #9 coccyx -Ulcer Cleansing Not Cleansed -Foul Odor after Cleansing No Pain Scale: 0-10 Numeric Is Patient Pain Free? Yes - Visit Discharge Discharge Condition Stable Ambulatory Status Wheelchair Transportation Private Auto Assessment/Plan Assessment/Plan (1) Pressure ulcer of sacral region, stage 3: CODE(S): L89.153 - Pressure ulcer of sacral region, stage 3 (2) Spina bifida: CODE(S): Q05.9 - Spina bifida, unspecified PLAN: Plan No debridement completed, remains healed. No new concerns reported by caregivers. Continue barrier dressing/Vaseline to buttock and sacral area with each change indefinitely. Continue offloading and reposition often. Optimal protein intake. Their questions were answered and they were advised to let us know if they had any further questions or concerns. Okay to return to workshop. Discharge from the wound center. This note was generated with Brainlyation software. It may contain incorrectwords, spelling, and punctuation that were not noted in checking the note beforesigning. 03/07/25 1217 <Electronically signed by Savannah Kinney MD> Cosigner Signature (if applicable): CC: ~ Signed [facility] Work Phone: 1(551) 876-567710-02-2025 Progress note [facility] [address] [place] [address] Progress Note - Wound Care 03/07/25 1214 MR#: [id number] Acct: [id number] Name: JULIETTE CREWS RAI Rep #:[id number] : 1975 49 From: Savannah neri MD PCP: Kassie Polanco, HUMAN RESOURCES TRAINING MANAGER-C Status:REG R CR Location: History of Present Illness Date of Service: 03/07/25 Chief Complaint: Sacral/Coccyx Ulcer History of Wound: Ms. Crews is a 49-year-old well-known to me. Recently discharged following healingof decubitus ulcers however, presents with a new sacral area ulcer. Said to have opened on Tuesday. 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 Had been off due to previous decubitus ulcers. Tuesday, new area of opening was noted. No chills, fever or feeling of unwell. Appetite is good. Progress of Wound: No new concerns at this time. Stays healed. Vaseline has been applied daily. Objective Data Objective Data Vital Signs: Vital Signs Temp Pulse Resp BP 97.8 F 98 18 116/82 H 03/07/25 11:23 03/07/25 11:23 03/07/25 11:23 03/07/25 11:23 Charges/Coding Visit Charges Office Visits / Consults: 84835 OV L3 Est 20min Physical Exam Const alert, oriented x3 and no apparent distress General Appearance: cooperative and well kempt HEENT normocephalic and hearing grossly normal bilaterally Head and Scalp: normal to inspection and atraumatic Neck full ROM and supple Resp normal respiratory effort Effort and Inspection: able to speak in complete sentences Neuro oriented x3 and CN's II-XII intact bilaterally Psych mental status grossly normal, cooperative and affect normal Appearance: grossly normal Attitude: calm Speech: normal speech Debridement Note Debridement Note Post-Debridement Measurements and Additional Note: Post-Debridement Measurements/Treatment WC - Nurse 1 - General Ulcer Assessment Start: 03/07/25 11:23 Freq: Status: Active Protocol: TOBIN Activity Type Activity Date Activity User E-sign Co-sign Detail Recorded Client Recorded Date Recorded By Document 03/07/25 11:23 RB [id number] 03/07/25 11:24 RB 03/07/25 11:23 - Today's Visit Information Type of service 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 ) Arrival Mode Ambulatory Transfer Assistance None Patient Identification Verified (Name & Yes ) Patient Requires Transmission-Based No Precautions Vital Signs Temperature (97.8 F-99.1 F) 97.8 F Temperature Source Temporal Pulse Rate (60-100) 98 Pulse Location Monitor Respiratory Rate (12-18) 18 Respiratory rate source Observation Blood Pressure (90/60-120/80) 116/82 H Blood Pressure Mean (mm Hg) 93 Source Monitor Position Semi-Fowlers Blood Pressure Location Left Arm History Since Last Visit- (Skip if this is Patient's initial visit) Have you changed medications since your No last visit? Any new allergies or adverse reactions No Had a fall/change in ADL's that may No increase risk of falls Signs or symptoms of abuse and/or No neglect since last visit Have you been in the hospital since your No last visit? Has dressing in place as prescribed Yes Has compression in place as prescribed N/A Has offloadiing in place as prescribed Yes Experienced any changes in pain level or No management Pain Scale: 0-10 Numeric Is Patient Pain Free? Yes - Nurse 1 - General Ulcer Measurement Start: 03/07/25 11:23 Freq: Status: Active Protocol: Activity Type Activity Date Activity User E-sign Co-sign Detail Recorded Client Recorded Date Recorded By Document 03/07/25 11:23 RB [id number] 03/07/25 11:24 RB 03/07/25 11:23 Wound Center Nurse 1 #9 coccyx -Combined with other wound No -Current Size (cm) - Length 0 -Current Size (cm) - Width 0 -Current Size (cm) - Depth 0 -Total Square Cm 0 -Photo Taken Yes -Epithelialization Large 67-100% - Nurse 2 - General Ulcer CM Notes Start: 03/07/25 11:23 Freq: Status: Active Protocol: Activity Type Activity Date Activity User E-sign Co-sign Detail Recorded Client Recorded Date Recorded By Document 03/07/25 11:42 [id number] 03/07/25 11:43 03/07/25 11:42 Wound Center Nurse 2 -Time 11:42 -Correct Patient Yes -Correct Side, Site, Position Yes -Correct Procedure No -Procedure Performed No -Tunneling No -Undermining/Tunneling No -Circular Undermining No -Wound/Ulcer Outcome Healed- Epithelialized -Ulcer Cleansing Not Cleansed -Foul Odor after Cleansing No -Bleeding Controlled with NA -Offloading No Pain Scale: 0-10 Numeric Is Patient Pain Free? Yes - Nurse 3 - General Ulcer D/C NN Start: 03/07/25 11:23 Freq: Status: Active Protocol: Activity Type Activity Date Activity User E-sign Co-sign Detail Recorded Client Recorded Date Recorded By Document 03/07/25 11:43 [id number] 03/07/25 11:45 03/07/25 11:43 Wound Care Center Nurse 3 #9 coccyx -Ulcer Cleansing Not Cleansed -Foul Odor after Cleansing No Pain Scale: 0-10 Numeric Is Patient Pain Free? Yes WC - Visit Discharge Discharge Condition Stable Ambulatory Status Wheelchair Transportation Private Auto Assessment/Plan Assessment/Plan (1) Pressure ulcer of sacral region, stage 3: CODE(S): L89.153 - Pressure ulcer of sacral region, stage 3 (2) Spina bifida: CODE(S): Q05.9 - Spina bifida, unspecified PLAN: Plan No debridement completed, remains healed. No new concerns reported by caregivers. Continue barrier dressing/Vaseline to buttock and sacral area with each change indefinitely. Continue offloading and reposition often. Optimal protein intake. Their questions were answered and they were advised to letus know if they had any further questions or concerns. Okay to return to workshop. Discharge from the wound center. This note was generated with Klutch dictation software. It may contain incorrectwords, spelling, and punctuation that were not noted in checking the note beforesigning. 03/07/25 1217 Cosigner Signature (if applicable): CC: ~ Signed [facility]09-18-2025 Progress note Author Savannah Kinney [facility] Note Date/Time February 21, 2025 11:55am [facility] [address] [place] [address] Progress Note - Wound Care 02/21/25 1135 MR#: [id number] Acct: [id number] Name: JULIETTE CREWS RAI Rep #:[id number] : 1975 49 From: Savannah neri MD PCP: Kassie Polanco HUMAN RESOURCES TRAINING MANAGER-C Status:REG R CR Location: History of Present Illness Date of Service: 02/21/25 Chief Complaint: Sacral/Coccyx Ulcer History of Wound: Ms. Crews is a 49-year-old well-known to me. Recently discharged following healing of decubitus ulcers however, presents with a new sacral area ulcer. Said to have opened on Tuesday. 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 Had been off due to previous decubitus ulcers. Tuesday, new area of opening was noted. No chills, fever or feeling of unwell. Appetite is good. Progress of Wound: No acute concerns at this time. Essentially healed/minimal area left. Objective Data Objective Data Vital Signs: Vital Signs Temp Pulse Resp BP O2 Del Method 97.8 F 99 18 135/85 H Room Air 02/21/25 10:53 02/21/25 10:53 02/21/25 10:53 02/21/25 10:53 02/21/25 10:53 Oxygen Delivery Method Room Air Charges/Coding Visit Charges Office Visits / Consults: 25336 OV L3 Est 20min Physical Exam Const alert, oriented x3 and no apparent distress General Appearance: cooperative and well kempt HEENT normocephalic and hearing grossly normal bilaterally Head and Scalp: normal to inspection and atraumatic Neck full ROM and supple Resp normal respiratory effort Effort and Inspection: able to speak in complete sentences Neuro oriented x3 and CN's II-XII intact bilaterally Psych mental status grossly normal, cooperative and affect normal Appearance: grossly normal Attitude: calm Speech: normal speech Debridement Note Debridement Note Post-Debridement Measurements and Additional Note: Post-Debridement Measurements/Treatment WC - Nurse 1 - General Ulcer Assessment Start: 02/07/25 10:42 Freq: Status: Active Protocol: [email or web address] Activity Type Activity Date Activity User E-sign Co-sign Detail Recorded Client Recorded Date Recorded By Document 02/07/25 10:42 NM [id number] 02/07/25 10:50 NM Document 02/14/25 11:28 KW [id number] 02/14/25 11:33 KW Document 02/21/25 10:53 KW [id number] 02/21/25 10:59 KW 02/07/25 02/14/25 02/21/25 10:42 11:28 10:53 - Today's Visit Information Type of service Follow-up Visit Follow-up Visit 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 (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 (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 ) ) ) Arrival Mode Wheelchair Wheelchair Wheelchair Accompanied by [employer] caretakers Patient Identification Verified (Name & Yes Yes Yes ) Safety Precautions Fall Prevention Vital Signs Temperature (97.8 F-99.1 F) 98 F 97.8 F Temperature Source Temporal Temporal Pulse Rate (60-100) 106 H 99 Pulse Location Monitor Monitor Respiratory Rate (12-18) 18 18 Respiratory rate source Observation Observation Oxygen Delivery Method Room Air Room Air Blood Pressure (90/60-120/80) 97/72 135/85 H Blood Pressure Mean (mm Hg) 80 101 Source Monitor Monitor Position Sitting Sitting Blood Pressure Location Right Arm Left Arm History Since Last Visit- (Skip if this is Patient's initial visit) Have you changed medications since your No No last visit? Any new allergies or adverse reactions No No Had a fall/change in ADL's that may No No increase risk of falls Signs or symptoms of abuse and/or No No neglect since last visit Have you been in the hospital since your No No last visit? Has dressing in place as prescribed Yes Yes Yes Has compression in place as prescribed Yes N/A N/A Has offloadiing in place as prescribed Yes N/A N/A Experienced any changes in pain level or Yes No No management Left Footwear Regular Shoe Slipper Slipper Right Footwear Regular Shoe Slipper Slipper Pain Scale: 0-10 Numeric Is Patient Pain Free? Yes Yes Yes - Nurse 1 - General Ulcer Measurement Start: 02/07/25 10:42 Freq: Status: Active Protocol: Activity Type Activity Date Activity User E-sign Co-sign Detail Recorded Client Recorded Date Recorded By Document 02/07/25 10:42 NM [id number] 02/07/25 10:50 NM Document 02/14/25 11:28 KW [id number] 02/14/25 11:33 Document 02/21/25 10:53 [id number] 02/21/25 10:59 02/07/25 02/14/25 02/21/25 10:42 11:28 10:53 Wound Center Nurse 1 #9 coccyx -Current Size (cm) - Length 0.7 0.2 0.1 -Current Size (cm) - Width 0.4 0.2 0.1 -Current Size (cm) - Depth 0.1 0.1 0 -Total Square Cm 0.28 0.04 0.01 -Date of Last Picture (Recall this 02/07/25 02/21/25 field) -Photo Taken Yes -Epithelialization Large 67-100% -Tunneling No -Undermining/Tunneling No -Circular Undermining No -Exudate Amt Medium Small None Present -Exudate Type Serous Serosanguineous -Wound Margin Thickened & Distinct, Rolled Under Outline Attached -Granulation Amt Large (67-100%) Large (67-100%) -Granulation Quality Pale,[place] Red -Slough/Fibrin No -Necrosis Amt Small (1-33%) -Necrotic Tissue Type Adherent Slough -Texture (Patience-wound Skin Appearance) Assessed Assessed Assessed -Moisture (Patience-wound Skin Appearance) Assessed Maceration Assessed -Color (Patience-wound Skin Appearance) Assessed Assessed Assessed -Temperature (Patience-wound Skin No Abnormality No Abnormality No Abnormality Appearance) (Pt Warm) (Pt Warm) (Pt Warm) -Tenderness on Palpation (Patience-wound No No No Skin Appearance) -Ulcer Cleansing Soap and Water Soap and Water Rinsed/ Irrigated with Saline -Foul Odor after Cleansing No No No -Anesthetic Used 5% Lidocaine 5% Lidocaine 5% Lidocaine Gel Gel Gel Lower Limb Edema Present NA WC - Nurse 2 - General Ulcer CM Notes Start: 02/07/25 10:42 Freq: Status: Active Protocol: Activity Type Activity Date Activity User E-sign Co-sign Detail Recorded Client Recorded Date Recorded By Document 02/07/25 11:14 [id number] 02/07/25 11:16 Document 02/14/25 11:52 [id number] 02/14/25 11:54 Document 02/21/25 11:05 [id number] 02/21/25 11:10 02/07/25 02/14/2525 11:14 11:52 11:05 Wound Center Nurse 2 #9 coccyx -Time 11:15 11:52 11:09 -Correct Patient Yes Yes Yes -Correct Side, Site, Position Yes Yes Yes -Correct Procedure Yes Yes No -Procedure Performed Yes Yes No -Type of Procedure Debridement Debridement -Clinical Debridement Subcutaneous Subcutaneous -Tissue Removed Subcutaneous Subcutaneous -Post Debridement (cm) - Length 1.0 0.4 -Post Debridement (cm) - Width 0.3 0.2 -Post Debridement (cm) - Depth 0.2 0.1 -Total Square (Post) (cm) 0.30 0.08 -Area of Debridement (cm) - Length 1.0 0.4 -Area of Debridement (cm) - Width 0.3 0.2 -Total Square (Area) (cm) 0.30 0.08 -Tunneling No No No -Undermining/Tunneling No No No -Circular Undermining No No No -Wound/Ulcer Outcome Not Healed Not Healed Healed- Epithelialized -Ulcer Cleansing Rinsed/ Rinsed/ Rinsed/ Irrigated with Irrigated with Irrigated with Saline Saline Saline -Foul Odor after Cleansing No No No -Bioengineered Tissue No No No -Bleeding Controlled with Pressure Pressure -Treatment Response Procedure Procedure Tolerated Well Tolerated Well -Offloading No No -Debridement - Subq, 1st 20sq cm Yes Yes Pain Scale: 0-10 Numeric Is Patient Pain Free? Yes Yes Yes - Nurse 3 - General Ulcer D/C NN Start: 02/07/25 10:42 Freq: Status: Active Protocol: Activity Type Activity Date Activity User E-sign Co-sign Detail Recorded Client Recorded Date Recorded By Document 02/07/25 11:33 DL [id number] 02/07/25 11:34 DL Document 02/21/25 11:22 RB [id number] 02/21/25 11:22 RB 02/07/25 02/21/25 11:33 11:22 Wound Care Center Nurse 3 #9 coccyx -Ulcer Cleansing Rinsed/ Rinsed/ Irrigated with Irrigated with Saline Saline -Foul Odor after Cleansing No -Primary Dressing Applied Fibracol Plus Silicone Border 4x4,Silicone Foam 4x4 Border Foam 6x6 -Fibracol Plus 4x4 1 -Silicone Border Foam 4x4 1 -Silicone Border Foam 6x6 1 Treatment Response Procedure Procedure Tolerated Well Tolerated Well Pain Scale: 0-10 Numeric Is Patient Pain Free? Yes Yes WC - Visit Discharge Discharge Condition Stable Stable Ambulatory Status Wheelchair Wheelchair Transportation Private Auto Private Auto Accompanied by home aides Medication Reconcilliation completed & No provided to patient/care provider Clinical Summary of Care Provided Yes Facility Type Industrial Waste Inspector Care Facility Orders Sent Yes Assessment/Plan Assessment/Plan (1) Pressure ulcer of sacral region, stage 3: CODE(S): L89.153 - Pressure ulcer of sacral region, stage 3 (2) Spina bifida: CODE(S): Q05.9 - Spina bifida, unspecified PLAN: Plan No debridement completed today. As above, essentially healed. Continue barrierdressing/Vaseline to buttock and sacral area with each change. Continue foam dressing to sacral area. Continue offloading and reposition often. Optimal protein intake. Their questions were answered and they were advised to let us know if they had any further questions or concerns. Follow-up in 2 weeks or sooner if needed. This note was generated with Brainlyation software. It may contain incorrectwords, spelling, and punctuation that were not noted in checking the note beforesigning. 02/21/25 115 <Electronically signed by Savannah Kinney MD> Cosigner Signature (if applicable): CC: ~ Signed [facility] Work Phone: [phone] Progress note [facility] [address] [place] [address] Progress Note - Wound Care 02/21/25 1135 MR#: [id number] Acct: [id number] Name: JULIETTE CREWS RAI Rep #:[id number] : 1975 49 From: Savannah neri MD PCP: Kassie Polanco, STEPHIE-C Status:REG R CR Location: History of Present Illness Date of Service: 02/21/25 Chief Complaint: Sacral/Coccyx Ulcer History of Wound: Ms. Crews is a 49-year-old well-known to me. Recently discharged following healingof decubitus ulcers however, presents with a new sacral area ulcer. Said to have opened on Tuesday. 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 Had been off due to previous decubitus ulcers. Tuesday, new area of opening was noted. No chills, fever or feeling of unwell. Appetite is good. Progress of Wound: No acute concerns at this time. Essentially healed/minimal area left. Objective Data Objective Data Vital Signs: Vital Signs Temp Pulse Resp BP O2 Del Method 97.8 F 99 18 135/85 H Room Air 02/21/25 10:53 02/21/25 10:53 02/21/25 10:53 02/21/25 10:53 02/21/25 10:53 Oxygen Delivery Method Room Air Charges/Coding Visit Charges Office Visits / Consults: 96957 OV L3 Est 20min Physical Exam Const alert, oriented x3 and no apparent distress General Appearance: cooperative and well kempt HEENT normocephalic and hearing grossly normal bilaterally Head and Scalp: normal to inspection and atraumatic Neck full ROM and supple Resp normal respiratory effort Effort and Inspection: able to speak in complete sentences Neuro oriented x3 and CN's II-XII intact bilaterally Psych mental status grossly normal, cooperative and affect normal Appearance: grossly normal Attitude: calm Speech: normal speech Debridement Note Debridement Note Post-Debridement Measurements and Additional Note: Post-Debridement Measurements/Treatment - Nurse 1 - General Ulcer Assessment Start: 02/07/25 10:42 Freq: Status: Active Protocol: TOBIN Activity Type Activity Date Activity User E-sign Co-sign Detail Recorded Client Recorded Date Recorded By Document 02/07/25 10:42 NM [id number] 02/07/25 10:50 NM Document 02/14/25 11:28 KW [id number] 02/14/25 11:33 Document 02/21/25 10:53 [id number] 02/21/25 10:59 KW 02/07/25 02/14/25 02/21/25 10:42 11:28 10:53 - Today's Visit Information Type of service Follow-up Visit Follow-up Visit 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 (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 (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 ) ) ) Arrival Mode Wheelchair Wheelchair Wheelchair Accompanied by AIDS CARE TAKERS caretakers Patient Identification Verified (Name & Yes Yes Yes ) Safety Precautions Fall Prevention Vital Signs Temperature (97.8 F-99.1 F) 98 F 97.8 F Temperature Source Temporal Temporal Pulse Rate (60-100) 106 H 99 Pulse Location Monitor Monitor Respiratory Rate (12-18) 18 18 Respiratory rate source Observation Observation Oxygen Delivery Method Room Air Room Air Blood Pressure (90/60-120/80) 97/72 135/85 H Blood Pressure Mean (mm Hg) 80 101 Source Monitor Monitor Position Sitting Sitting Blood Pressure Location Right Arm Left Arm History Since Last Visit- (Skip if this is Patient's initial visit) Have you changed medications since your No No last visit? Any new allergies or adverse reactions No No Had a fall/change in ADL's that may No No increase risk of falls Signs or symptoms of abuse and/or No No neglect since last visit Have you been in the hospital since your No No last visit? Has dressing in place as prescribed Yes Yes Yes Has compression in place as prescribed Yes N/A N/A Has offloadiing in place as prescribed Yes N/A N/A Experienced any changes in pain level or Yes No No management Left Footwear Regular Shoe Slipper Slipper Right Footwear Regular Shoe Slipper Slipper Pain Scale: 0-10 Numeric Is Patient Pain Free? Yes Yes Yes WC - Nurse 1 - General Ulcer Measurement Start: 02/07/25 10:42 Freq: Status: Active Protocol: Activity Type Activity Date Activity User E-sign Co-sign Detail Recorded Client Recorded Date Recorded By Document 02/07/25 10:42 NM [id number] 02/07/25 10:50 NM Document 02/14/25 11:28 KW [id number] 02/14/25 11:33 KW Document 02/21/25 10:53 [id number] 02/21/25 10:59 02/07/25 02/14/25 02/21/25 10:42 11:28 10:53 Wound Center Nurse 1 #9 coccyx -Current Size (cm) - Length 0.7 0.2 0.1 -Current Size (cm) - Width 0.4 0.2 0.1 -Current Size (cm) - Depth 0.1 0.1 0 -Total Square Cm 0.28 0.04 0.01 -Date of Last Picture (Recall this 02/07/25 02/21/25 field) -Photo Taken Yes -Epithelialization Large 67-100% -Tunneling No -Undermining/Tunneling No -Circular Undermining No -Exudate Amt Medium Small None Present -Exudate Type Serous Serosanguineous -Wound Margin Thickened & Distinct, Rolled Under Outline Attached -Granulation Amt Large (67-100%) Large (67-100%) -Granulation Quality Pale,[place] Red -Slough/Fibrin No -Necrosis Amt Small (1-33%) -Necrotic Tissue Type Adherent Slough -Texture (Patience-wound Skin Appearance) Assessed Assessed Assessed -Moisture (Patience-wound Skin Appearance) Assessed Maceration Assessed -Color (Patience-wound Skin Appearance) Assessed Assessed Assessed -Temperature (Patience-wound Skin No Abnormality No Abnormality No Abnormality Appearance) (Pt Warm) (Pt Warm) (Pt Warm) -Tenderness on Palpation (Patience-wound No No No Skin Appearance) -Ulcer Cleansing Soap and Water Soap and Water Rinsed/ Irrigated with Saline -Foul Odor after Cleansing No No No -Anesthetic Used 5% Lidocaine 5% Lidocaine 5% Lidocaine Gel Gel Gel Lower Limb Edema Present NA WC - Nurse 2 - General Ulcer CM Notes Start: 02/07/25 10:42 Freq: Status: Active Protocol: Activity Type Activity Date Activity User E-sign Co-sign Detail Recorded Client Recorded Date Recorded By Document 02/07/25 11:14 [id number] 02/07/25 11:16 Document 02/14/25 11:52 [id number] 02/14/25 11:54 Document 02/21/25 11:05 [id number] 02/21/25 11:10 02/07/25 02/14/25 02/21/25 11:14 11:52 11:05 Wound Center Nurse 2 #9 coccyx -Time 11:15 11:52 11:09 -Correct Patient Yes Yes Yes -Correct Side, Site, Position Yes Yes Yes -Correct Procedure Yes Yes No -Procedure Performed Yes Yes No -Type of Procedure Debridement Debridement -Clinical Debridement Subcutaneous Subcutaneous -Tissue Removed Subcutaneous Subcutaneous -Post Debridement (cm) - Length 1.0 0.4 -Post Debridement (cm) - Width 0.3 0.2 -Post Debridement (cm) - Depth 0.2 0.1 -Total Square (Post) (cm) 0.30 0.08 -Area of Debridement (cm) - Length 1.0 0.4 -Area of Debridement (cm) - Width 0.3 0.2 -Total Square (Area) (cm) 0.30 0.08 -Tunneling No No No -Undermining/Tunneling No No No -Circular Undermining No No No -Wound/Ulcer Outcome Not Healed Not Healed Healed- Epithelialized -Ulcer Cleansing Rinsed/ Rinsed/ Rinsed/ Irrigated with Irrigated with Irrigated with Saline Saline Saline -Foul Odor after Cleansing No No No -Bioengineered Tissue No No No -Bleeding Controlled with Pressure Pressure -Treatment Response Procedure Procedure Tolerated Well Tolerated Well -Offloading No No -Debridement - Subq, 1st 20sq cm Yes Yes Pain Scale: 0-10 Numeric Is Patient Pain Free? Yes Yes Yes - Nurse 3 - General Ulcer D/C NN Start: 02/07/25 10:42 Freq: Status: Active Protocol: Activity Type Activity Date Activity User E-sign Co-sign Detail Recorded Client Recorded Date Recorded By Document 02/07/25 11:33 DL [id number] 02/07/25 11:34 DL Document 02/21/25 11:22 RB [id number] 02/21/25 11:22 RB 02/07/25 02/21/25 11:33 11:22 Wound Care Center Nurse 3 #9 coccyx -Ulcer Cleansing Rinsed/ Rinsed/ Irrigated with Irrigated with Saline Saline -Foul Odor after Cleansing No -Primary Dressing Applied Fibracol Plus Silicone Border 4x4,Silicone Foam 4x4 Border Foam 6x6 -Fibracol Plus 4x4 1 -Silicone Border Foam 4x4 1 -Silicone Border Foam 6x6 1 Treatment Response Procedure Procedure Tolerated Well Tolerated Well Pain Scale: 0-10 Numeric Is Patient Pain Free? Yes Yes - Visit Discharge Discharge Condition Stable Stable Ambulatory Status Wheelchair Wheelchair Transportation Private Auto Private Auto Accompanied by home aides Medication Reconcilliation completed & No provided to patient/care provider Clinical Summary of Care Provided Yes Facility Type Industrial Waste Inspector Care Facility Orders Sent Yes Assessment/Plan Assessment/Plan (1) Pressure ulcer of sacral region, stage 3: CODE(S): L89.153 - Pressure ulcer of sacral region, stage 3 (2) Spina bifida: CODE(S): Q05.9 - Spina bifida, unspecified PLAN: Plan No debridement completed today. As above, essentially healed. Continue barrierdressing/Vaseline to buttock and sacral area with each change. Continue foam dressing to sacral area. Continue offloadingand reposition often. Optimal protein intake. Their questions were answered and they were advised to let us know if they had any further questions or concerns. Follow-up in 2 weeks or sooner if needed. This note was generated with Klutch dictation software. It may contain incorrectwords, spelling, and punctuation that were not noted in checking the note beforesigning. 02/21/25 1155 Cosigner Signature (if applicable): CC: ~ Signed [facility]09-11-2025 Progress note Author Savannah Kinney [facility] Note Date/Time February 14, 2025 4:34pm [facility] [address] [place] [address] Progress Note - Wound Care 02/14/25 1309 MR#: [id number] Acct: [id number] Name: JULIETTE CREWS RAI Rep #:[id number] : 1975 49 From: Savannah neri MD PCP: Kassie Polanco, HUMAN RESOURCES TRAINING MANAGER-C Status:REG R CR Location: History of Present Illness Date of Service: 02/14/25 Chief Complaint: Sacral/Coccyx Ulcer History of Wound: Ms. Crews is a 49-year-old well-known to me. Recently discharged following healing of decubitus ulcers however, presents with a new sacral area ulcer. Said to have opened on Tuesday. 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 Had been off due to previous decubitus ulcers. Tuesday, new area of opening was noted. No chills, fever or feeling of unwell. Appetite is good. Progress of Wound: No acute concerns at this time. Some improvement noted since her last visit. Caregiver states that concerns with suprapubic catheter have been resolved. Resulting in more periods of staying staying dry. No new concerns reported otherwise. Objective Data Objective Data Vital Signs: Vital Signs Temp Pulse Resp BP O2 Del Method 98 F 106 H 18 97/72 Room Air 02/07/25 10:42 02/07/25 10:42 02/07/25 10:42 02/07/25 10:42 02/07/25 10:42 Oxygen Delivery Method Room Air Charges/Coding Procedures Integumentary 111xxx-113xx: 38591 Sherlyn subq tissue 20 sq cm/< Physical Exam Const alert, oriented x3 and no apparent distress General Appearance: cooperative and well kempt HEENT normocephalic and hearing grossly normal bilaterally Head and Scalp: normal to inspection and atraumatic Neck full ROM and supple Resp normal respiratory effort Effort and Inspection: able to speak in complete sentences Skin Wounds: wounds noted size Size: See clinical note, bed granulating well, marginswell approximated, no odor and open Neuro oriented x3 and CN's II-XII intact bilaterally Psych mental status grossly normal, cooperative and affect normal Appearance: grossly normal Attitude: calm Speech: normal speech Debridement Note Debridement Note Wound debrided: Sacrum Type of Debridement: Excisional debridement Anesthesia Used: 5% Lidocaine Gel Depth: Down to and including healthy tissue and in the subcutaneous layer Percentage of wound debrided: 100 Instrument Used: - (1mm) Tissue Removed: Slough and devitalized tissue Severity: Fat Layer Exposed Amount of bleeding with debridement: Mild Bleeding Controlled with: Pressure Patient tolerated procedure: Patient tolerated procedure well Post-Debridement Measurements and Additional Note: Post-Debridement Measurements/Treatment - Nurse 1 - General Ulcer Assessment Start: 02/07/25 10:42 Freq: Status: Active Protocol: TOBIN Activity Type Activity Date Activity User E-sign Co-sign Detail Recorded Client Recorded Date Recorded By Document 02/07/25 10:42 NM [id number] 02/07/25 10:50 NM Document 02/14/25 11:28 [id number] 02/14/25 11:33 02/07/25 02/14/25 10:42 11:28 - Today's Visit Information Type of service Follow-up Visit 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 (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 ) ) Arrival Mode Wheelchair Wheelchair Accompanied by AIDS CARE TAKERS Patient Identification Verified (Name & Yes Yes ) Safety Precautions Fall Prevention Vital Signs Temperature (97.8 F-99.1 F) 98 F Temperature Source Temporal Pulse Rate (60-100) 106 H Pulse Location Monitor Respiratory Rate (12-18) 18 Respiratory rate source Observation Oxygen Delivery Method Room Air Blood Pressure (90/60-120/80) 97/72 Blood Pressure Mean (mm Hg) 80 Source Monitor Position Sitting Blood Pressure Location Right Arm History Since Last Visit- (Skip if this is Patient's initial visit) Have you changed medications since your No last visit? Any new allergies or adverse reactions No Had a fall/change in ADL's that may No increase risk of falls Signs or symptoms of abuse and/or No neglect since last visit Have you been in the hospital since your No last visit? Has dressing in place as prescribed Yes Yes Has compression in place as prescribed Yes N/A Has offloadiing in place as prescribed Yes N/A Experienced any changes in pain level or Yes No management Left Footwear Regular Shoe Slipper Right Footwear Regular Shoe Slipper Pain Scale: 0-10 Numeric Is Patient Pain Free? Yes Yes - Nurse 1 - General Ulcer Measurement Start: 02/07/25 10:42 Freq: Status: Active Protocol: Activity Type Activity Date Activity User E-sign Co-sign Detail Recorded Client Recorded Date Recorded By Document 02/07/25 10:42 MT [id number] 02/07/25 10:50 MT Document 02/14/25 11:28 KW [id number] 02/14/25 11:33 KW 02/07/25 02/14/25 10:42 11:28 Wound Center Nurse 1 #9 coccyx -Current Size (cm) - Length 0.7 0.2 -Current Size (cm) - Width 0.4 0.2 -Current Size (cm) - Depth 0.1 0.1 -Total Square Cm 0.28 0.04 -Date of Last Picture (Recall this 02/07/25 field) -Photo Taken Yes -Tunneling No -Undermining/Tunneling No -Circular Undermining No -Exudate Amt Medium Small -Exudate Type Serous Serosanguineous -Wound Margin Thickened & Distinct, Rolled Under Outline Attached -Granulation Amt Large (67-100%) Large (67-100%) -Granulation Quality Pale,[place] Red -Slough/Fibrin No -Necrosis Amt Small (1-33%) -Necrotic Tissue Type Adherent Slough -Texture (Patience-wound Skin Appearance) Assessed Assessed -Moisture (Patience-wound Skin Appearance) Assessed Maceration -Color (Patience-wound Skin Appearance) Assessed Assessed -Temperature (Patience-wound Skin No Abnormality No Abnormality Appearance) (Pt Warm) (Pt Warm) -Tenderness on Palpation (Patience-wound No No Skin Appearance) -Ulcer Cleansing Soap and Water Soap and Water -Foul Odor after Cleansing No No -Anesthetic Used 5% Lidocaine 5% Lidocaine Gel Gel Lower Limb Edema Present NA - Nurse 2 - General Ulcer CM Notes Start: 02/07/25 10:42 Freq: Status: Active Protocol: Activity Type Activity Date Activity User E-sign Co-sign Detail Recorded Client Recorded Date Recorded By Document 02/07/25 11:14 [id number] 02/07/25 11:16 Document 02/14/25 11:52 [id number] 02/14/25 11:54 02/07/25 02/14/25 11:14 11:52 Wound Center Nurse 2 #9 coccyx -Time 11:15 11:52 -Correct Patient Yes Yes -Correct Side, Site, Position Yes Yes -Correct Procedure Yes Yes -Procedure Performed Yes Yes -Type of Procedure Debridement Debridement -Clinical Debridement Subcutaneous Subcutaneous -Tissue Removed Subcutaneous Subcutaneous -Post Debridement (cm) - Length 1.0 0.4 -Post Debridement (cm) - Width 0.3 0.2 -Post Debridement (cm) - Depth 0.2 0.1 -Total Square (Post) (cm) 0.30 0.08 -Area of Debridement (cm) - Length 1.0 0.4 -Area of Debridement (cm) - Width 0.3 0.2 -Total Square (Area) (cm) 0.30 0.08 -Tunneling No No -Undermining/Tunneling No No -Circular Undermining No No -Wound/Ulcer Outcome Not Healed Not Healed -Ulcer Cleansing Rinsed/ Rinsed/ Irrigated with Irrigated with Saline Saline -Foul Odor after Cleansing No No -Bioengineered Tissue No No -Bleeding Controlled with Pressure Pressure -Treatment Response Procedure Procedure Tolerated Well Tolerated Well -Offloading No No -Debridement - Subq, 1st 20sq cm Yes Yes Pain Scale: 0-10 Numeric Is Patient Pain Free? Yes Yes WC - Nurse 3 - General Ulcer D/C NN Start: 02/07/25 10:42 Freq: Status: Active Protocol: Activity Type Activity Date Activity User E-sign Co-sign Detail Recorded Client Recorded Date Recorded By Document 02/07/25 11:33 [id number] 02/07/25 11:34 02/07/25 11:33 Wound Care Center Nurse 3 #9 coccyx -Ulcer Cleansing Rinsed/ Irrigated with Saline -Foul Odor after Cleansing No -Primary Dressing Applied Fibracol Plus 4x4,Silicone Border Foam 6x6 -Fibracol Plus 4x4 1 -Silicone Border Foam 6x6 1 Treatment Response Procedure Tolerated Well Pain Scale: 0-10 Numeric Is Patient Pain Free? 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 Good improvement noted since her last visit. 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 Continue Fibracol andfoam dressing, change at least twice daily. Continue offloading and reposition often. Optimal protein intake. Their questions were answered and they were advised to let us know if they had any further questions or concerns. Follow-upin a week or sooner if needed. This note was generated with Brainlyation software. It may contain incorrectwords, spelling, and punctuation that were not noted in checking the note beforesigning. 02/14/25 1634 <Electronically signed by Savannah Kinney MD> Cosigner Signature (if applicable): CC: ~ Signed [facility] Work Phone: [phone]) 570-141909-11-2025 Progress note [facility] [address] [place] [address] Progress Note - Wound Care 02/14/25 1309 MR#: [id number] Acct: [id number] Name: JULIETTE CREWS RAI Rep #:[id number] : 1975 49 From: Savannah neri MD PCP: Kassie Polanco NP-Martell Status:REG R CR Location: History of Present Illness Date of Service: 02/14/25 Chief Complaint: Sacral/Coccyx Ulcer History of Wound: Ms. Crews is a 49-year-old well-known to me. Recently discharged following healingof decubitus ulcers however, presents with a new sacral area ulcer. Said to have opened on Tuesday. 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 Had been off due to previous decubitus ulcers. [place], new area of opening was noted. No chills, fever or feeling of unwell. Appetite is good. Progress of Wound: No acute concerns at this time. Some improvement noted since her last visit. Caregiver states that concerns with suprapubic catheter have been resolved. Resulting in more periods of staying staying dry. No new concerns reported otherwise. Objective Data Objective Data Vital Signs: Vital Signs Temp Pulse Resp BP O2 Del Method 98 F 106 H 18 97/72 Room Air 02/07/25 10:42 02/07/25 10:42 02/07/25 10:42 02/07/25 10:42 02/07/25 10:42 Oxygen Delivery Method Room Air Charges/Coding Procedures Integumentary 111xxx-113xx: 58734 Sherlyn subq tissue 20 sq cm/< Physical Exam Const alert, oriented x3 and no apparent distress General Appearance: cooperative and well kempt HEENT normocephalic and hearing grossly normal bilaterally Head and Scalp: normal to inspection and atraumatic Neck full ROM and supple Resp normal respiratory effort Effort and Inspection: able to speak in complete sentences Skin Wounds: wounds noted size Size: See clinical note, bed granulating well, marginswell approximated, no odor and open Neuro oriented x3 and CN's II-XII intact bilaterally Psych mental status grossly normal, cooperative and affect normal Appearance: grossly normal Attitude: calm Speech: normal speech Debridement Note Debridement Note Wound debrided: Sacrum Type of Debridement: Excisional debridement Anesthesia Used: 5% Lidocaine Gel Depth: Down to and including healthy tissue and in the subcutaneous layer Percentage of wound debrided: 100 Instrument Used: - (1mm) Tissue Removed: Slough and devitalized tissue Severity: Fat Layer Exposed Amount of bleeding with debridement: Mild Bleeding Controlled with: Pressure Patient tolerated procedure: Patient tolerated procedure well Post-Debridement Measurements and Additional Note: Post-Debridement Measurements/Treatment [email or web address] - Nurse 1 - General Ulcer Assessment Start: 02/07/25 10:42 Freq: Status: Active Protocol: TOBIN Activity Type Activity Date Activity User E-sign Co-sign Detail Recorded Client Recorded Date Recorded By Document 02/07/25 10:42 MT [id number] 02/07/25 10:50 MT Document 02/14/25 11:28 KW [id number] 02/14/25 11:33 02/07/25 02/14/25 10:42 11:28 - Today's Visit Information Type of service Follow-up Visit 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 (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 ) ) Arrival Mode Wheelchair Wheelchair Accompanied by AIDS CARE TAKERS Patient Identification Verified (Name & Yes Yes ) Safety Precautions Fall Prevention Vital Signs Temperature (97.8 F-99.1 F) 98 F Temperature Source Temporal Pulse Rate (60-100) 106 H Pulse Location Monitor Respiratory Rate (12-18) 18 Respiratory rate source Observation Oxygen Delivery Method Room Air Blood Pressure (90/60-120/80) 97/72 Blood Pressure Mean (mm Hg) 80 Source Monitor Position Sitting Blood Pressure Location Right Arm History Since Last Visit- (Skip if this is Patient's initial visit) Have you changed medications since your No last visit? Any new allergies or adverse reactions No Had a fall/change in ADL's that may No increase risk of falls Signs or symptoms of abuse and/or No neglect since last visit Have you been in the hospital since your No last visit? Has dressing in place as prescribed Yes Yes Has compression in place as prescribed Yes N/A Has offloadiing in place as prescribed Yes N/A Experienced any changes in pain level or Yes No management Left Footwear Regular Shoe Slipper Right Footwear Regular Shoe Slipper Pain Scale: 0-10 Numeric Is Patient Pain Free? Yes Yes - Nurse 1 - General Ulcer Measurement Start: 02/07/25 10:42 Freq: Status: Active Protocol: Activity Type Activity Date Activity User E-sign Co-sign Detail Recorded Client Recorded Date Recorded By Document 02/07/25 10:42 NM [id number] 02/07/25 10:50 NM Document 02/14/25 11:28 [id number] 02/14/25 11:33 02/07/25 02/14/25 10:42 11:28 Wound Center Nurse 1 #9 coccyx -Current Size (cm) - Length 0.7 0.2 -Current Size (cm) - Width 0.4 0.2 -Current Size (cm) - Depth 0.1 0.1 -Total Square Cm 0.28 0.04 -Date of Last Picture (Recall this 02/07/25 field) -Photo Taken Yes -Tunneling No -Undermining/Tunneling No -Circular Undermining No -Exudate Amt Medium Small -Exudate Type Serous Serosanguineous -Wound Margin Thickened & Distinct, Rolled Under Outline Attached -Granulation Amt Large (67-100%) Large (67-100%) -Granulation Quality Pale,[place] Red -Slough/Fibrin No -Necrosis Amt Small (1-33%) -Necrotic Tissue Type Adherent Slough -Texture (Patience-wound Skin Appearance) Assessed Assessed -Moisture (Patience-wound Skin Appearance) Assessed Maceration -Color (Patience-wound Skin Appearance) Assessed Assessed -Temperature (Patience-wound Skin No Abnormality No Abnormality Appearance) (Pt Warm) (Pt Warm) -Tenderness on Palpation (Patience-wound No No Skin Appearance) -Ulcer Cleansing Soap and Water Soap and Water -Foul Odor after Cleansing No No -Anesthetic Used 5% Lidocaine 5% Lidocaine Gel Gel Lower Limb Edema Present NA WC - Nurse 2 - General Ulcer CM Notes Start: 02/07/25 10:42 Freq: Status: Active Protocol: Activity Type Activity Date Activity User E-sign Co-sign Detail Recorded Client Recorded Date Recorded By Document 02/07/25 11:14 [id number] 02/07/25 11:16 Document 02/14/25 11:52 [id number] 02/14/25 11:54 02/07/25 02/14/25 11:14 11:52 Wound Center Nurse 2 #9 coccyx -Time 11:15 11:52 -Correct Patient Yes Yes -Correct Side, Site, Position Yes Yes -Correct Procedure Yes Yes -Procedure Performed Yes Yes -Type of Procedure Debridement Debridement -Clinical Debridement Subcutaneous Subcutaneous -Tissue Removed Subcutaneous Subcutaneous -Post Debridement (cm) - Length 1.0 0.4 -Post Debridement (cm) - Width 0.3 0.2 -Post Debridement (cm) - Depth 0.2 0.1 -Total Square (Post) (cm) 0.30 0.08 -Area of Debridement (cm) - Length 1.0 0.4 -Area of Debridement (cm) - Width 0.3 0.2 -Total Square (Area) (cm) 0.30 0.08 -Tunneling No No -Undermining/Tunneling No No -Circular Undermining No No -Wound/Ulcer Outcome Not Healed Not Healed -Ulcer Cleansing Rinsed/ Rinsed/ Irrigated with Irrigated with Saline Saline -Foul Odor after Cleansing No No -Bioengineered Tissue No No -Bleeding Controlled with Pressure Pressure -Treatment Response Procedure Procedure Tolerated Well Tolerated Well -Offloading No No -Debridement - Subq, 1st 20sq cm Yes Yes Pain Scale: 0-10 Numeric Is Patient Pain Free? Yes Yes WC - Nurse 3 - General Ulcer D/C NN Start: 02/07/25 10:42 Freq: Status: Active Protocol: Activity Type Activity Date Activity User E-sign Co-sign Detail Recorded Client Recorded Date Recorded By Document 02/07/25 11:33 DL [id number] 02/07/25 11:34 DL 02/07/25 11:33 Wound Care Center Nurse 3 #9 coccyx -Ulcer Cleansing Rinsed/ Irrigated with Saline -Foul Odor after Cleansing No -Primary Dressing Applied Fibracol Plus 4x4,Silicone Border Foam 6x6 -Fibracol Plus 4x4 1 -Silicone Border Foam 6x6 1 Treatment Response Procedure Tolerated Well Pain Scale: 0-10 Numeric Is Patient Pain Free? Yes WC - Visit Discharge Discharge Condition Stable Ambulatory Status Wheelchair Transportation Private Auto Facility Type Senior Living Care Facility Orders Sent Yes Assessment/Plan Assessment/Plan (1) Pressure ulcer of sacral region, stage 3: CODE(S): L89.153 - Pressure ulcer of sacral region, stage 3 (2) Spina bifida: CODE(S): Q05.9 - Spina bifida, unspecified PLAN: Plan Debridement done as documented above, procedure was well-tolerated. Good improvement noted since her last visit. 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 Continue Fibracol andfoam dressing, change at least twice daily. Continue offloading and repos ition often. Optimal protein intake. Their questions were answered and they were advised to let us know if they had any further questions or concerns. Follow- upin a week or sooner if needed. This note was generated with Klutch dictation software. It may contain incorrectwords, spelling, and punctuation that were not noted in checking the note beforesigning. 02/14/25 1634 Cosigner Signature (if applicable): CC: ~ Signed [facility]09-04-2025 Progress note Author Savannah Kinney 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 Crews is a 49-year-old well-known to me. Recently discharged following healing of decubitus ulcers however, presents with a new sacral area ulcer. Said to have opened on Tuesday. 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 Had been off due to previous decubitus ulcers. Tuesday, new area of opening was noted. No chills, fever or feeling of unwell. Appetite is good. Progress of Wound: Worsening and increased periwound/ulcer maceration noted today. Caregiver states that in the past week she has had some concerns with her suprapubic catheter and subsequently had more wetness. No other acute concerns reported. Feels well otherwise. Objective Data Objective Data Vital Signs: Vital Signs Temp Pulse Resp BP O2 Del Method 98 F 106 H 18 97/72 Room Air 02/07/25 10:42 02/07/25 10:42 02/07/25 10:42 02/07/25 10:42 02/07/25 10:42 Oxygen Delivery Method Room Air Charges/Coding Procedures Integumentary 111xxx-113xx: 32042 Sherlyn subq tissue 20 sq cm/< Physical Exam Const alert, oriented x3 and no apparent distress General Appearance: cooperative and well kempt HEENT normocephalic and hearing grossly normal bilaterally Head and Scalp: normal to inspection and atraumatic Neck full ROM and supple Resp normal respiratory effort Effort and Inspection: able to speak in complete sentences Skin Wounds: wounds noted size Size: See clinical note, bed granulating well, marginsmacerated, no odor and open Neuro oriented x3 and CN's II-XII intact bilaterally Psych mental status grossly normal, cooperative and affect normal Appearance: grossly normal Attitude: calm Speech: normal speech Debridement Note Debridement Note Wound debrided: Sacral Type of Debridement: Excisional debridement Anesthesia Used: 5% Lidocaine Gel Depth: Down to and including healthy tissue and in the subcutaneous layer Percentage of wound debrided: 100 Instrument Used: 5mm curette Tissue Removed: Slough and devitalized tissue Severity: Fat Layer Exposed Amount of bleeding with debridement: Mild Bleeding Controlled with: Pressure Patient tolerated procedure: Patient tolerated procedure well Post-Debridement Measurements and Additional Note: Post-Debridement Measurements/Treatment JESSICA Baptiste Nurse 1 - General Ulcer Assessment Start: 02/07/25 10:42 Freq: Status: Active Protocol: TOBIN Activity Type Activity Date Activity User E-sign Co-sign Detail Recorded Client Recorded Date Recorded By Document 02/07/25 10:42 NM [id number] 02/07/25 10:50 NM 02/07/25 10:42 - Today's Visit Information Type of service 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 ) Arrival Mode Wheelchair Accompanied by AIDS Patient Identification Verified (Name & Yes ) Safety Precautions Fall Prevention Vital Signs Temperature (97.8 F-99.1 F) 98 F Temperature Source Temporal Pulse Rate (60-100) 106 H Pulse Location Monitor Respiratory Rate (12-18) 18 Respiratory rate source Observation Oxygen Delivery Method Room Air Blood Pressure (90/60-120/80) 97/72 Blood Pressure Mean (mm Hg) 80 Source Monitor Position Sitting Blood Pressure Location Right Arm History Since Last Visit- (Skip if this is Patient's initial visit) Has dressing in place as prescribed Yes Has compression in place as prescribed Yes Has offloadiing in place as prescribed Yes Experienced any changes in pain level or Yes management Left Footwear Regular Shoe Right Footwear Regular Shoe Pain Scale: 0-10 Numeric Is Patient Pain Free? Yes Emile Nurse 1 - General Ulcer Measurement Start: 02/07/25 10:42 Freq: Status: Active Protocol: Activity Type Activity Date Activity User E-sign Co-sign Detail Recorded Client Recorded Date Recorded By Document 02/07/25 10:42 NM [id number] 02/07/25 10:50 NM 02/07/25 10:42 Wound Center Nurse 1 #9 coccyx -Current Size (cm) - Length 0.7 -Current Size (cm) - Width 0.4 -Current Size (cm) - Depth 0.1 -Total Square Cm 0.28 -Date of Last Picture (Recall this 02/07/25 field) -Photo Taken Yes -Tunneling No -Undermining/Tunneling No -Circular Undermining No -Exudate Amt Medium -Exudate Type Serous -Wound Margin Thickened & Rolled Under -Granulation Amt Large (67-100%) -Granulation Quality Pale,[place] -Slough/Fibrin No -Texture (Patience-wound Skin Appearance) Assessed -Moisture (Patience-wound Skin Appearance) Assessed -Color (Patience-wound Skin Appearance) Assessed -Temperature (Patience-wound Skin No Abnormality Appearance) (Pt Warm) -Tenderness on Palpation (Patience-wound No Skin Appearance) -Ulcer Cleansing Soap and Water -Foul Odor after Cleansing No -Anesthetic Used 5% Lidocaine Gel Lower Limb Edema Present NA WC - Nurse 2 - General Ulcer CM Notes Start: 02/07/25 10:42 Freq: Status: Active Protocol: Activity Type Activity Date Activity User E-sign Co-sign Detail Recorded Client Recorded Date Recorded By Document 02/07/25 11:14 GM [id number] 02/07/25 11:16 02/07/25 11:14 Wound Center Nurse 2 #9 coccyx -Time 11:15 -Correct Patient Yes -Correct Side, Site, Position Yes -Correct Procedure Yes -Procedure Performed Yes -Type of Procedure Debridement -Clinical Debridement Subcutaneous -Tissue Removed Subcutaneous -Post Debridement (cm) - Length 1.0 -Post Debridement (cm) - Width 0.3 -Post Debridement (cm) - Depth 0.2 -Total Square (Post) (cm) 0.30 -Area of Debridement (cm) - Length 1.0 -Area of Debridement (cm) - Width 0.3 -Total Square (Area) (cm) 0.30 -Tunneling No -Undermining/Tunneling No -Circular Undermining No -Wound/Ulcer Outcome Not Healed -Ulcer Cleansing Rinsed/ Irrigated with Saline -Foul Odor after Cleansing No -Bioengineered Tissue No -Bleeding Controlled with Pressure -Treatment Response Procedure Tolerated Well -Offloading No -Debridement - Subq, 1st 20sq cm Yes Pain Scale: 0-10 Numeric Is Patient Pain Free? Yes - Nurse 3 - General Ulcer D/C NN Start: 02/07/25 10:42 Freq: Status: Active Protocol: Activity Type Activity Date Activity User E-sign Co-sign Detail Recorded Client Recorded Date Recorded By Document 02/07/25 11:33 DL [id number] 02/07/25 11:34 DL 09/04/25 11:33 Wound Care Center Nurse 3 #9 coccyx -Ulcer Cleansing Rinsed/ Irrigated with Saline -Foul Odor after Cleansing No -Primary Dressing Applied Fibracol Plus 4x4,Silicone Border Foam 6x6 -Fibracol Plus 4x4 1 -Silicone Border Foam 6x6 1 Treatment Response Procedure Tolerated Well Pain Scale: 0-10 Numeric Is Patient Pain Free? 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 As above, some worsening noted. Concern for increased moisture to the area due to problems with suprapubic catheter. Caregiver states that she has an appointmentwith her urologist shortly. Continue Fibracol and foam dressing, change at least twice daily. Continue offloading and reposition often. Optimal protein intake. Their questions were answered and they were advised to let us know if they had any further questions or concerns. Follow-up in a week or sooner if needed. This note was generated with Klutch dictation software. It may contain incorrectwords, spelling, and punctuation that were not noted in checking the note beforesigning. 02/07/25 1225 <Electronically signed by Savannah Kinney MD> Cosigner Signature (if applicable): CC: ~ Signed [facility] Work Phone: 1(932) 350-441909-04-2025 Progress note [facility] [address] [place] [address] Progress Note - Wound Care 02/07/25 1221 MR#: [id number] Acct: [id number] Name: JULIETTE CREWS RAI Rep #:[id number] : 1975 49 From: Savannah neri MD PCP: ADAN Joseph Status:REG R CR Location: History of Present Illness Date of Service: 02/07/25 Chief Complaint: Sacral/Coccyx Ulcer History of Wound: Ms. Crews is a 49-year-old well-known to me. Recently discharged following healingof decubitus ulcers however, presents with a new sacral area ulcer. Said to have opened on Tuesday. 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 Had been off due to previous decubitus ulcers. Tuesday, new area of opening was noted. No chills, fever or feeling of unwell. Appetite is good. Progress of Wound: Worsening and increased periwound/ulcer maceration noted today. Caregiver states that in the past week she has had some concerns with her suprapubic catheter and subsequently had more wetness. No other acute concerns reported. Feels well otherwise. Objective Data Objective Data Vital Signs: Vital Signs Temp Pulse Resp BP O2 Del Method 98 F 106 H 18 97/72 Room Air 02/07/25 10:42 02/07/25 10:42 02/07/25 10:42 02/07/25 10:42 02/07/25 10:42 Oxygen Delivery Method Room Air Charges/Coding Procedures Integumentary 111xxx-113xx: 04004 Sherlyn subq tissue 20 sq cm/< Physical Exam Const alert, oriented x3 and no apparent distress General Appearance: cooperative and well kempt HEENT normocephalic and hearing grossly normal bilaterally Head and Scalp: normal to inspection and atraumatic Neck full ROM and supple Resp normal respiratory effort Effort and Inspection: able to speak in complete sentences Skin Wounds: wounds noted size Size: See clinical note, bed granulating well, marginsmacerated, no odor and open Neuro oriented x3 and CN's II-XII intact bilaterally Psych mental status grossly normal, cooperative and affect normal Appearance: grossly normal Attitude: calm Speech: normal speech Debridement Note Debridement Note Wound debrided: Sacral Type of Debridement: Excisional debridement Anesthesia Used: 5% Lidocaine Gel Depth: Down to and including healthy tissue and in the subcutaneous layer Percentage of wound debrided: 100 Instrument Used: 5mm curette Tissue Removed: Slough and devitalized tissue Severity: Fat Layer Exposed Amount of bleeding with debridement: Mild Bleeding Controlled with: Pressure Patient tolerated procedure: Patient tolerated procedure well Post-Debridement Measurements and Additional Note: Post-Debridement Measurements/Treatment JESSICA - Nurse 1 - General Ulcer Assessment Start: 02/07/25 10:42 Freq: Status: Active Protocol: WC.LOWEXT Activity Type Activity Date Activity User E-sign Co-sign Detail Recorded Client Recorded Date Recorded By Document 02/07/25 10:42 NM [id number] 02/07/25 10:50 NM 02/07/25 10:42 - Today's Visit Information Type of service 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 ) Arrival Mode Wheelchair Accompanied by AIDS Patient Identification Verified (Name & Yes ) Safety Precautions Fall Prevention Vital Signs Temperature (97.8 F-99.1 F) 98 F Temperature Source Temporal Pulse Rate (60-100) 106 H Pulse Location Monitor Respiratory Rate (12-18) 18 Respiratory rate source Observation Oxygen Delivery Method Room Air Blood Pressure (90/60-120/80) 97/72 Blood Pressure Mean (mm Hg) 80 Source Monitor Position Sitting Blood Pressure Location Right Arm History Since Last Visit- (Skip if this is Patient's initial visit) Has dressing in place as prescribed Yes Has compression in place as prescribed Yes Has offloadiing in place as prescribed Yes Experienced any changes in pain level or Yes management Left Footwear Regular Shoe Right Footwear Regular Shoe Pain Scale: 0-10 Numeric Is Patient Pain Free? Yes - Nurse 1 - General Ulcer Measurement Start: 02/07/25 10:42 Freq: Status: Active Protocol: Activity Type Activity Date Activity User E-sign Co-sign Detail Recorded Client Recorded Date Recorded By Document 02/07/25 10:42 NM [id number] 02/07/25 10:50 NM 02/07/25 10:42 Wound Center Nurse 1 #9 coccyx -Current Size (cm) - Length 0.7 -Current Size (cm) - Width 0.4 -Current Size (cm) - Depth 0.1 -Total Square Cm 0.28 -Date of Last Picture (Recall this 02/07/25 field) -Photo Taken Yes -Tunneling No -Undermining/Tunneling No -Circular Undermining No -Exudate Amt Medium -Exudate Type Serous -Wound Margin Thickened & Rolled Under -Granulation Amt Large (67-100%) -Granulation Quality Pale,[place] -Slough/Fibrin No -Texture (Patience-wound Skin Appearance) Assessed -Moisture (Patience-wound Skin Appearance) Assessed -Color (Patience-wound Skin Appearance) Assessed -Temperature (Patience-wound Skin No Abnormality Appearance) (Pt Warm) -Tenderness on Palpation (Patience-wound No Skin Appearance) -Ulcer Cleansing Soap and Water -Foul Odor after Cleansing No -Anesthetic Used 5% Lidocaine Gel Lower Limb Edema Present NA WC - Nurse 2 - General Ulcer CM Notes Start: 02/07/25 10:42 Freq: Status: Active Protocol: Activity Type Activity Date Activity User E-sign Co-sign Detail Recorded Client Recorded Date Recorded By Document 02/07/25 11:14 [id number] 02/07/25 11:16 02/07/25 11:14 Wound Center Nurse 2 #9 coccyx -Time 11:15 -Correct Patient Yes -Correct Side, Site, Position Yes -Correct Procedure Yes -Procedure Performed Yes -Type of Procedure Debridement -Clinical Debridement Subcutaneous -Tissue Removed Subcutaneous -Post Debridement (cm) - Length 1.0 -Post Debridement (cm) - Width 0.3 -Post Debridement (cm) - Depth 0.2 -Total Square (Post) (cm) 0.30 -Area of Debridement (cm) - Length 1.0 -Area of Debridement (cm) - Width 0.3 -Total Square (Area) (cm) 0.30 -Tunneling No -Undermining/Tunneling No -Circular Undermining No -Wound/Ulcer Outcome Not Healed -Ulcer Cleansing Rinsed/ Irrigated with Saline -Foul Odor after Cleansing No -Bioengineered Tissue No -Bleeding Controlled with Pressure -Treatment Response Procedure Tolerated Well -Offloading No -Debridement - Subq, 1st 20sq cm Yes Pain Scale: 0-10 Numeric Is Patient Pain Free? Yes - Nurse 3 - General Ulcer D/C NN Start: 02/07/25 10:42 Freq: Status: Active Protocol: Activity Type Activity Date Activity User E-sign Co-sign Detail Recorded Client Recorded Date Recorded By Document 02/07/25 11:33 DL [id number] 02/07/25 11:34 DL 02/07/25 11:33 Wound Care Center Nurse 3 #9 coccyx -Ulcer Cleansing Rinsed/ Irrigated with Saline -Foul Odor after Cleansing No -Primary Dressing Applied Fibracol Plus 4x4,Silicone Border Foam 6x6 -Fibracol Plus 4x4 1 -Silicone Border Foam 6x6 1 Treatment Response Procedure Tolerated Well Pain Scale: 0-10 Numeric Is Patient Pain Free? 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 As above, some worsening noted.Concern for increased moisture to the area due to problems with suprapubic catheter. Caregiver states that she has an appointmentwith her urologist shortly. Continue Fibracol and foam dressing, change at least twice daily. Continue offloading and reposition often. Optimal protein intake. Their questions were answered and they were advised to let us know if they had any further questions or concerns. Follow-up in a week or sooner if needed. This note was generated with Brainlyation software. It may contain incorrectwords, spelling, and punctuation that were not noted in checking the note beforesigning. 02/07/25 1225 Cosigner Signature (if applicable): CC: ~ Signed [facility]08-28-2025 Progress note Author jana Kinney [facility] Note Date/Time January 31, 2025 11 :59am [facility] [address] [place] [address] Progress Note - Wound Care 01/31/25 1151 MR#: [id number] Acct: [id number] Name: JULIETTE CREWS RAI Rep #:[id number] : 1975 49 From: Savannah neri MD PCP: Ksasie Polanco NP-Martell Status:REG R CR Location: History of Present Illness Date of Service: 01/31/25 Chief Complaint: Sacral/Coccyx Ulcer History of Wound: Ms. Crews is a 49-year-old well-known to me. Recently discharged following healing of decubitus ulcers however, presents with a new sacral area ulcer. Said to have opened on Tuesday. 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 Had been off due to previous decubitus ulcers. Tuesday, new area of opening was noted. No chills, fever or feeling of unwell. Appetite is good. Progress of Wound: No acute concerns reported at this time, improving. Objective Data Objective Data Vital Signs: Vital Signs Temp Pulse Resp BP O2 Del Method 97.6 F L 102 H 16 115/86 H Room Air 01/31/25 10:03 01/31/25 10:03 01/31/25 10:03 01/31/25 10:03 01/31/25 10:03 Oxygen Delivery Method Room Air Charges/Coding Procedures Integumentary 111xxx-113xx: 38184 Sherlyn subq tissue 20 sq cm/< Physical Exam Const alert, oriented x3 and no apparent distress General Appearance: cooperative and well kempt HEENT normocephalic and hearing grossly normal bilaterally Head and Scalp: normal to inspection and atraumatic Neck full ROM and supple Resp normal respiratory effort Effort and Inspection: able to speak in complete sentences Skin Wounds: wounds noted size Size: See clinical note, bed granulating well, no odorand open Neuro oriented x3 and CN's II-XII intact bilaterally Psych mental status grossly normal, cooperative and affect normal Appearance: grossly normal Attitude: calm Speech: normal speech Debridement Note Debridement Note Wound debrided: Sacral Wound Grade/Stage: Stage III Type of Debridement: Excisional debridement Anesthesia Used: 5% Lidocaine Gel Depth: Down to and including healthy tissue and in the subcutaneous layer Percentage of wound debrided: 100 Instrument Used: 3mm curette Tissue Removed: Devitalized tissue Severity: Fat Layer Exposed Amount of bleeding with debridement: Mild Bleeding Controlled with: Pressure Patient tolerated procedure: Patient tolerated procedure well Post-Debridement Measurements and Additional Note: Post-Debridement Measurements/Treatment JESSICA - Nurse 1 - General Ulcer Assessment Start: 01/10/25 10:34 Freq: Status: Active Protocol: TOBIN Activity Type Activity Date Activity User E-sign Co-sign Detail Recorded Client Recorded Date Recorded By Document 01/10/25 10:34 CP [id number] 01/10/25 10:39 CP Document 01/17/25 10:03 DS [id number] 01/17/25 10:05 DS Document 01/24/25 10:37 DS [id number] 01/24/25 10:48 DS Document 01/31/25 10:03 DS [id number] 01/31/25 10:13 DS 01/10/25 01/17/25 01/24/25 10:34 10:03 10:37 WC - Today's Visit Information Type of service Follow-up Visit Follow-up Visit 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 (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 (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 ) ) ) Arrival Mode Wheelchair Wheelchair Wheelchair Transfer Assistance Manual Manual Manual Transfer Assist (Other) 2 Accompanied by aides aides Patient Identification Verified (Name & Yes Yes Yes ) Patient Requires Transmission-Based Precautions Safety Precautions Fall Prevention Vital Signs Temperature (97.8 F-99.1 F) 97 F L 96.4 F L 96.4 F L Temperature Source Temporal Temporal Temporal Pulse Rate (60-100) 92 100 110 H Pulse Location Monitor Monitor Monitor Respiratory Rate (12-18) 16 18 18 Respiratory rate source Observation Observation Observation Oxygen Delivery Method Room Air Room Air Blood Pressure (90/60-120/80) 122/85 H 139/83 H 116/85 H Blood Pressure Mean (mm Hg) 97 101 95 Source Monitor Monitor Monitor Position Semi-Fowlers Semi-Fowlers Semi-Fowlers Blood Pressure Location Left Forearm Left Forearm Left Arm History Since Last Visit- (Skip if this is Patient's initial visit) Have you changed medications since your No No No last visit? Any new allergies or adverse reactions No No No Had a fall/change in ADL's that may No No No increase risk of falls Signs or symptoms of abuse and/or No No No neglect since last visit Have you been in the hospital since your No No No last visit? Has dressing in place as prescribed Yes Yes Yes Has compression in place as prescribed N/A N/A N/A Has offloadiing in place as prescribed N/A N/A N/A Experienced any changes in pain level or No No No management Left Footwear Regular Shoe Right Footwear Regular Shoe Pain Scale: 0-10 Numeric Is Patient Pain Free? 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 ) Arrival Mode Wheelchair Transfer Assistance Manual Transfer Assist (Other) Accompanied by AIDES X2 Patient Identification Verified (Name & Yes ) Patient Requires Transmission-Based No Precautions Safety Precautions Fall Prevention Vital Signs Temperature (97.8 F-99.1 F) 97.6 F L Temperature Source Temporal Pulse Rate (60-100) 102 H Pulse Location Monitor Respiratory Rate (12-18) 16 Respiratory rate source Observation Oxygen Delivery Method Room Air Blood Pressure (90/60-120/80) 115/86 H Blood Pressure Mean (mm Hg) 95 Source Monitor Position Semi-Fowlers Blood Pressure Location Right Arm History Since Last Visit- (Skip if this is Patient's initial visit) Have you changed medications since your No last visit? Any new allergies or adverse reactions No Had a fall/change in ADL's that may No increase risk of falls Signs or symptoms of abuse and/or No neglect since last visit Have you been in the hospital since your No last visit? Has dressing in place as prescribed Yes Has compression in place as prescribed N/A Has offloadiing in place as prescribed N/A Experienced any changes in pain level or No management Left Footwear Regular Shoe Right Footwear Regular Shoe Pain Scale: 0-10 Numeric Is Patient Pain Free? Yes WC - Nurse 1 - General Ulcer Measurement Start: 01/10/25 10:34 Freq: Status: Active Protocol: Activity Type Activity Date Activity User E-sign Co-sign Detail Recorded Client Recorded Date Recorded By Document 01/10/25 10:34 CP [id number] 01/10/25 10:39 CP Document 01/17/25 10:05 DS [id number] 01/17/25 10:13 DS Document 01/24/25 10:37 DS [id number] 01/24/25 10:48 DS Document 01/31/25 10:03 DS [id number] 01/31/25 10:13 DS 01/10/25 01/17/25 01/24/25 10:34 10:05 10:37 Wound Center Nurse 1 #9 coccyx -Current Size (cm) - Length 0.7 0.9 0.4 -Current Size (cm) - Width 0.5 1.2 0.5 -Current Size (cm) - Depth 0.3 0.2 0.3 -Total Square Cm 0.35 1.08 0.20 -Date of Last Picture (Recall this 01/17/25 01/24/25 field) -Photo Taken Yes Yes Yes -Tunneling No No -Undermining/Tunneling No No -Circular Undermining No No -Exudate Amt Medium Small Medium -Exudate Type Serosanguineous Serosanguineous Serosanguineous -Wound Margin Flat & Intact Distinct, Outline Attached -Granulation Amt Large (67-100%) Small (1-33%) -Granulation Quality [place] -Slough/Fibrin No -Necrosis Amt Medium (34-66%) -Necrotic Tissue Type Adherent Slough -Structure Exposed N/A -Texture (Patience-wound Skin Appearance) No Abnormality Assessed Assessed -Moisture (Patience-wound Skin Appearance) No Abnormality Assessed Assessed, Maceration -Color (Patience-wound Skin Appearance) No Abnormality Assessed Assessed -Temperature (Patience-wound Skin No Abnormality No Abnormality No Abnormality Appearance) (Pt Warm) (Pt Warm) (Pt Warm) -Tenderness on Palpation (Patience-wound No No No Skin Appearance) -Ulcer Cleansing Soap and Water Soap and Water Rinsed/ Irrigated with Saline -Foul Odor after Cleansing No No No -Anesthetic Used 5% Lidocaine 5% Lidocaine 5% Lidocaine Gel Gel Gel 01/31/25 10:03 Wound Center Nurse 1 #9 coccyx -Current Size (cm) - Length 0.4 -Current Size (cm) - Width 0.3 -Current Size (cm) - Depth 0.1 -Total Square Cm 0.12 -Date of Last Picture (Recall this 01/31/25 field) -Photo Taken Yes -Tunneling No -Undermining/Tunneling No -Circular Undermining No -Exudate Amt None Present -Exudate Type -Wound Margin Distinct, Outline Attached -Granulation Amt Large (67-100%) -Granulation Quality [place] -Slough/Fibrin -Necrosis Amt -Necrotic Tissue Type -Structure Exposed -Texture (Patience-wound Skin Appearance) Assessed -Moisture (Patience-wound Skin Appearance) Assessed, Maceration -Color (Patience-wound Skin Appearance) Assessed -Temperature (Patience-wound Skin No Abnormality Appearance) (Pt Warm) -Tenderness on Palpation (Patience-wound No Skin Appearance) -Ulcer Cleansing Soap and Water -Foul Odor after Cleansing No -Anesthetic Used 5% Lidocaine Gel WC - Nurse 2 - General Ulcer CM Notes Start: 01/10/25 10:34 Freq: Status: Active Protocol: Activity Type Activity Date Activity User E-sign Co-sign Detail Recorded Client Recorded Date Recorded By Document 01/10/25 10:47 [id number] 01/10/25 10:53 Document 01/17/25 10:23 [id number] 01/17/25 10:30 Document 01/24/25 11:05 [id number] 01/24/25 11:06 GM Edit Result 01/24/25 11:05 GM (1) [id number] 01/24/25 11:08 GM Document 01/31/25 10:42 GM [id number] 01/31/25 10:44 GM (1) #9 coccyx - Post Debridement (cm) - Length => 0.5 - Post Debridement (cm) - Width => 0.4 - Post Debridement (cm) - Depth => 0.2 - Total Square (Post) (cm) => 0.20 - Area of Debridement (cm) - Length => 0.5 - Area of Debridement (cm) - Width => 0.4 - Total Square (Area) (cm) => 0.20 01/10/25 01/17/25 01/24/25 10:47 10:23 11:05 Wound Center Nurse 2 #9 coccyx -Time 10:47 10:24 11:05 -Correct Patient Yes Yes Yes -Correct Side, Site, Position Yes Yes Yes -Correct Procedure Yes Yes Yes -Procedure Performed Yes Yes Yes -Type of Procedure Debridement Debridement Debridement -Clinical Debridement Subcutaneous Subcutaneous Subcutaneous -Tissue Removed Subcutaneous Subcutaneous Subcutaneous -Post Debridement (cm) - Length 0.5 0.7 0.5 -Post Debridement (cm) - Width 0.9 0.5 0.4 -Post Debridement (cm) - Depth 0.6 0.4 0.2 -Total Square (Post) (cm) 0.45 0.35 0.20 -Area of Debridement (cm) - Length 0.5 0.7 0.5 -Area of Debridement (cm) - Width 0.9 0.5 0.4 -Total Square (Area) (cm) 0.45 0.35 0.20 -Tunneling No No No -Undermining/Tunneling Yes Yes No -Undermining/Tunneling Starts (O'clock 11 11 ) -Undermining/Tunneling Ends (O'clock) 2 2 -Maximum Distance (cm) 0.6 0.5 -Circular Undermining No No No -Wound/Ulcer Outcome Not Healed Not Healed Not Healed -Ulcer Cleansing Rinsed/ Rinsed/ Rinsed/ Irrigated with Irrigated with Irrigated with Saline Saline Saline -Foul Odor after Cleansing No No No -Bioengineered Tissue No No No -Bleeding Controlled with Pressure Pressure Pressure -Treatment Response Procedure Procedure Procedure Tolerated Well Tolerated Well Tolerated Well -Offloading No No No -Debridement - Subq, 1st 20sq cm Yes Yes Yes Pain Scale: 0-10 Numeric Is Patient Pain Free? Yes Yes Yes 01/31/25 10:42 Wound Center Nurse 2 #9 coccyx -Time 10:42 -Correct Patient Yes -Correct Side, Site, Position Yes -Correct Procedure Yes -Procedure Performed Yes -Type of Procedure Debridement -Clinical Debridement Subcutaneous -Tissue Removed Subcutaneous -Post Debridement (cm) - Length 0.4 -Post Debridement (cm) - Width 0.3 -Post Debridement (cm) - Depth 0.2 -Total Square (Post) (cm) 0.12 -Area of Debridement (cm) - Length 0.4 -Area of Debridement (cm) - Width 0.3 -Total Square (Area) (cm) 0.12 -Tunneling No -Undermining/Tunneling No -Undermining/Tunneling Starts (O'clock ) -Undermining/Tunneling Ends (O'clock) -Maximum Distance (cm) -Circular Undermining No -Wound/Ulcer Outcome Not Healed -Ulcer Cleansing Rinsed/ Irrigated with Saline -Foul Odor after Cleansing No -Bioengineered Tissue No -Bleeding Controlled with Pressure -Treatment Response Procedure Tolerated Well -Offloading No -Debridement - Subq, 1st 20sq cm Yes Pain Scale: 0-10 Numeric Is Patient Pain Free? Yes - Nurse 3 - General Ulcer D/C NN Start: 01/10/25 10:34 Freq: Status: Active Protocol: Activity Type Activity Date Activity User E-sign Co-sign Detail Recorded Client Recorded Date Recorded By Document 01/10/25 10:58 CP [id number] 01/10/25 11:00 CP Document 01/17/25 10:53 KW [id number] 01/17/25 10:53 KW Document 01/24/25 11:26 RB [id number] 01/24/25 11:27 RB Document 01/31/25 10:58 KW [id number] 01/31/25 10:59 KW 01/10/25 01/17/25 01/24/25 10:58 10:53 11:26 Wound Care Center Nurse 3 #9 coccyx -Ulcer Cleansing Rinsed/ Rinsed/ Irrigated with Irrigated with Saline Saline -Foul Odor after Cleansing No -Primary Dressing Applied Promogran, Fibracol Plus Fibracol Plus Silicone Border 4x4,Silicone 4x4,NonAdherent Foam 4x4 Border Foam 4x4 Contact Layer, Silicone Border Foam 4x4 -Other Dressing adaptic -Fibracol Plus 4x4 1 1 -Promogran 1 -Silicone Border Foam 4x4 1 1 1 -Silicone Border Foam 6x6 Treatment Response Procedure Tolerated Well Pain Scale: 0-10 Numeric Is Patient Pain Free? Yes Yes Yes WC - Visit Discharge Discharge Condition Stable Stable Stable Ambulatory Status Wheelchair Wheelchair Wheelchair Transportation Private Auto Private Auto Accompanied by home caregiver Medication Reconcilliation completed & No No provided to patient/care provider Clinical Summary of Care Provided Yes Yes Yes 01/31/25 10:58 Wound Care Center Nurse 3 #9 coccyx -Ulcer Cleansing -Foul Odor after Cleansing -Primary Dressing Applied Fibracol Plus 4x4,NonAdherent Contact Layer, Silicone Border Foam 6x6 -Other Dressing -Fibracol Plus 4x4 1 -Promogran -Silicone Border Foam 4x4 -Silicone Border Foam 6x6 1 Treatment Response Pain Scale: 0-10 Numeric Is Patient Pain Free? Yes WC - Visit Discharge Discharge Condition Stable Ambulatory Status Wheelchair Transportation Private Auto Accompanied by Medication Reconcilliation completed & No provided to patient/care provider Clinical Summary of Care Provided Yes Assessment/Plan Assessment/Plan (1) Pressure ulcer of sacral region, stage 3: CODE(S): L89.153 - Pressure ulcer of sacral region, stage 3 (2) Spina bifida: CODE(S): Q05.9 - Spina bifida, unspecified PLAN: Plan Debridement done as documented above, procedure was well-tolerated. Continued improvement noted. No new concerns reported or noted at this time. Continue Fibracol, cover with Adaptic and foam dressing. Change dressing daily or when soiled. Continue offloading and reposition often. Optimal protein intake. Their questions were answered and they were advised to let us know if they had any further questions or concerns. Follow-up in a week or sooner if needed. This note was generated with Brainlyation software. It may contain incorrectwords, spelling, and punctuation that were not noted in checking the note beforesigning. 01/31/25 1638 <Electronically signed by Savannah Kinney MD> Cosigner Signature (if applicable): CC: ~ Signed 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 Crews is a 49-year-old well-known to me. Recently discharged following healingof decubitus ulcers however, presents with a new sacral area ulcer. Said to have opened on Tuesday. 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 Had been off due to previous decubitus ulcers. Tuesday, new area of opening was noted. No chills, fever or feeling of unwell. Appetite is good. Progress of Wound: No acute concerns reported at this time, improving. Objective Data Objective Data Vital Signs: Vital Signs Temp Pulse Resp BP O2 Del Method 97.6 F L 102 H 16 115/86 H Room Air 01/31/25 10:03 01/31/25 10:03 01/31/25 10:03 01/31/25 10:03 01/31/25 10:03 Oxygen Delivery Method Room Air Charges/Coding Procedures Integumentary 111xxx-113xx: 18227 Sherlyn subq tissue 20 sq cm/< Physical Exam Const alert, oriented x3 and no apparent distress General Appearance: cooperative and well kempt HEENT normocephalic and hearing grossly normal bilaterally Head and Scalp: normal to inspection and atraumatic Neck full ROM and supple Resp normal respiratory effort Effort and Inspection: able to speak in complete sentences Skin Wounds: wounds noted size Size: See clinical note, bed granulating well, no odorand open Neuro oriented x3 and CN's II-XII intact bilaterally Psych mental status grossly normal, cooperative and affect normal Appearance: grossly normal Attitude: calm Speech: normal speech Debridement Note Debridement Note Wound debrided: Sacral Wound Grade/Stage: Stage III Type of Debridement: Excisional debridement Anesthesia Used: 5% Lidocaine Gel Depth: Down to and including healthy tissue and in the subcutaneous layer Percentage of wound debrided: 100 Instrument Used: 3mm curette Tissue Removed: Devitalized tissue Severity: Fat Layer Exposed Amount of bleeding with debridement: Mild Bleeding Controlled with: Pressure Patient tolerated procedure: Patient tolerated procedure well Post-Debridement Measurements and Additional Note: Post-Debridement Measurements/Treatment JESSICA - Nurse 1 - General Ulcer Assessment Start: 01/10/25 10:34 Freq: Status: Active Protocol: TOBIN Activity Type Activity Date Activity User E-sign Co-sign Detail Recorded Client Recorded Date Recorded By Document 01/10/25 10:34 CP [id number] 01/10/25 10:39 CP Document 01/17/25 10:03 DS [id number] 01/17/25 10:05 DS Document 01/24/25 10:37 DS [id number] 01/24/25 10:48 DS Document 01/31/25 10:03 DS [id number] 01/31/25 10:13 DS 01/10/25 01/17/25 01/24/25 10:34 10:03 10:37 - Today's Visit Information Type of service Follow-up Visit Follow-up Visit 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 (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 (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 ) ) ) Arrival Mode Wheelchair Wheelchair Wheelchair Transfer Assistance Manual Manual Manual Transfer Assist (Other) 2 Accompanied by aides aides Patient Identification Verified (Name & Yes Yes Yes ) Patient Requires Transmission-Based Precautions Safety Precautions Fall Prevention Vital Signs Temperature (97.8 F-99.1 F) 97 F L 96.4 F L 96.4 F L Temperature Source Temporal Temporal Temporal Pulse Rate (60-100) 92 100 110 H Pulse Location Monitor Monitor Monitor Respiratory Rate (12-18) 16 18 18 Respiratory rate source Observation Observation Observation Oxygen Delivery Method Room Air Room Air Blood Pressure (90/60-120/80) 122/85 H 139/83 H 116/85 H Blood Pressure Mean (mm Hg) 97 101 95 Source Monitor Monitor Monitor Position Semi-Fowlers Semi-Fowlers Semi-Fowlers Blood Pressure Location Left Forearm Left Forearm Left Arm History Since Last Visit- (Skip if this is Patient's initial visit) Have you changed medications since your No No No last visit? Any new allergies or adverse reactions No No No Had a fall/change in ADL's that may No No No increase risk of falls Signs or symptoms of abuse and/or No No No neglect since last visit Have you been in the hospital since your No No No last visit? Has dressing in place as prescribed Yes Yes Yes Has compression in place as prescribed N/A N/A N/A Has offloadiing in place as prescribed N/A N/A N/A Experienced any changes in pain level or No No No management Left Footwear Regular Shoe Right Footwear Regular Shoe Pain Scale: 0-10 Numeric Is Patient Pain Free? 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 ) Arrival Mode Wheelchair Transfer Assistance Manual Transfer Assist (Other) Accompanied by AIDES X2 Patient Identification Verified (Name & Yes ) Patient Requires Transmission-Based No Precautions Safety Precautions Fall Prevention Vital Signs Temperature (97.8 F-99.1 F) 97.6 F L Temperature Source Temporal Pulse Rate (60-100) 102 H Pulse Location Monitor Respiratory Rate (12-18) 16 Respiratory rate source Observation Oxygen Delivery Method Room Air Blood Pressure (90/60-120/80) 115/86 H Blood Pressure Mean (mm Hg) 95 Source Monitor Position Semi-Fowlers Blood Pressure Location Right Arm History Since Last Visit- (Skip if this is Patient's initial visit) Have you changed medications since your No last visit? Any new allergies or adverse reactions No Had a fall/change in ADL's that may No increase risk of falls Signs or symptoms of abuse and/or No neglect since last visit Have you been in the hospital since your No last visit? Has dressing in place as prescribed Yes Has compression in place as prescribed N/A Has offloadiing in place as prescribed N/A Experienced any changes in pain level or No management Left Footwear Regular Shoe Right Footwear Regular Shoe Pain Scale: 0-10 Numeric Is Patient Pain Free? Yes - Nurse 1 - General Ulcer Measurement Start: 01/10/25 10:34 Freq: Status: Active Protocol: Activity Type Activity Date Activity User E-sign Co-sign Detail Recorded Client Recorded Date Recorded By Document 01/10/25 10:34 CP [id number] 01/10/25 10:39 CP Document 01/17/25 10:05 DS [id number] 01/17/25 10:13 DS Document 01/24/25 10:37 DS [id number] 01/24/25 10:48 DS Document 01/31/25 10:03 DS [id number] 01/31/25 10:13 DS 01/10/25 01/17/25 01/24/25 10:34 10:05 10:37 Wound Center Nurse 1 #9 coccyx -Current Size (cm) - Length 0.7 0.9 0.4 -Current Size (cm) - Width 0.5 1.2 0.5 -Current Size (cm) - Depth 0.3 0.2 0.3 -Total Square Cm 0.35 1.08 0.20 -Date of Last Picture (Recall this 01/17/25 01/24/25 field) -Photo Taken Yes Yes Yes -Tunneling No No -Undermining/Tunneling No No -Circular Undermining No No -Exudate Amt Medium Small Medium -Exudate Type Serosanguineous Serosanguineous Serosanguineous -Wound Margin Flat & Intact Distinct, Outline Attached -Granulation Amt Large (67-100%) Small (1-33%) -Granulation Quality [place] -Slough/Fibrin No -Necrosis Amt Medium (34-66%) -Necrotic Tissue Type Adherent Slough -Structure Exposed N/A -Texture (Patience-wound Skin Appearance) No Abnormality Assessed Assessed -Moisture (Patience-wound Skin Appearance) No Abnormality Assessed Assessed, Maceration -Color (Patience-wound Skin Appearance) No Abnormality Assessed Assessed -Temperature (Patience-wound Skin No Abnormality No Abnormality No Abnormality Appearance) (Pt Warm) (Pt Warm) (Pt Warm) -Tenderness on Palpation (Patience-wound No No No Skin Appearance) -Ulcer Cleansing Soap and Water Soap and Water Rinsed/ Irrigated with Saline -Foul Odor after Cleansing No No No -Anesthetic Used 5% Lidocaine 5% Lidocaine 5% Lidocaine Gel Gel Gel 01/31/25 10:03 Wound Center Nurse 1 #9 coccyx -Current Size (cm) - Length 0.4 -Current Size (cm) - Width 0.3 -Current Size (cm) - Depth 0.1 -Total Square Cm 0.12 -Date of Last Picture (Recall this 01/31/25 field) -Photo Taken Yes -Tunneling No -Undermining/Tunneling No -Circular Undermining No -Exudate Amt None Present -Exudate Type -Wound Margin Distinct, Outline Attached -Granulation Amt Large (67-100%) -Granulation Quality [place] -Slough/Fibrin -Necrosis Amt -Necrotic Tissue Type -Structure Exposed -Texture (Patience-wound Skin Appearance) Assessed -Moisture (Patience-wound Skin Appearance) Assessed, Maceration -Color (Patience-wound Skin Appearance) Assessed -Temperature (Patience-wound Skin No Abnormality Appearance) (Pt Warm) -Tenderness on Palpation (Patience-wound No Skin Appearance) -Ulcer Cleansing Soap and Water -Foul Odor after Cleansing No -Anesthetic Used 5% Lidocaine Gel WC - Nurse 2 - General Ulcer CM Notes Start: 01/10/25 10:34 Freq: Status: Active Protocol: Activity Type Activity Date Activity User E-sign Co-sign Detail Recorded Client Recorded Date Recorded By Document 01/10/25 10:47 GM [id number] 01/10/25 10:53 GM Document 01/17/25 10:23 GM [id number] 01/17/25 10:30 GM Document 01/24/25 11:05 GM [id number] 01/24/25 11:06 GM Edit Result 01/24/25 11:05 GM (1) [id number] 01/24/25 11:08 GM Document 01/31/25 10:42 GM [id number] 01/31/25 10:44 GM (1) #9 coccyx - Post Debridement (cm) - Length => 0.5 - Post Debridement (cm) - Width => 0.4 - Post Debridement (cm) - Depth => 0.2 - Total Square (Post) (cm) => 0.20 - Area of Debridement (cm) - Length => 0.5 - Area of Debridement (cm) - Width => 0.4 - Total Square (Area) (cm) => 0.20 01/10/25 01/17/25 01/24/25 10:47 10:23 11:05 Wound Center Nurse 2 #9 coccyx -Time 10:47 10:24 11:05 -Correct Patient Yes Yes Yes -Correct Side, Site, Position Yes Yes Yes -Correct Procedure Yes Yes Yes -Procedure Performed Yes Yes Yes -Type of Procedure Debridement Debridement Debridement -Clinical Debridement Subcutaneous Subcutaneous Subcutaneous -Tissue Removed Subcutaneous Subcutaneous Subcutaneous -Post Debridement (cm) - Length 0.5 0.7 0.5 -Post Debridement (cm) - Width 0.9 0.5 0.4 -Post Debridement (cm) - Depth 0.6 0.4 0.2 -Total Square (Post) (cm) 0.45 0.35 0.20 -Area of Debridement (cm) - Length 0.5 0.7 0.5 -Area of Debridement (cm) - Width 0.9 0.5 0.4 -Total Square (Area) (cm) 0.45 0.35 0.20 -Tunneling No No No -Undermining/Tunneling Yes Yes No -Undermining/Tunneling Starts (O'clock 11 11 ) -Undermining/Tunneling Ends (O'clock) 2 2 -Maximum Distance (cm) 0.6 0.5 -Circular Undermining No No No -Wound/Ulcer Outcome Not Healed Not Healed Not Healed -Ulcer Cleansing Rinsed/ Rinsed/ Rinsed/ Irrigated with Irrigated with Irrigated with Saline Saline Saline -Foul Odor after Cleansing No No No -Bioengineered Tissue No No No -Bleeding Controlled with Pressure Pressure Pressure -Treatment Response Procedure Procedure Procedure Tolerated Well Tolerated Well Tolerated Well -Offloading No No No -Debridement - Subq, 1st 20sq cm Yes Yes Yes Pain Scale: 0-10 Numeric Is Patient Pain Free? Yes Yes Yes 01/31/25 10:42 Wound Center Nurse 2 #9 coccyx -Time 10:42 -Correct Patient Yes -Correct Side, Site, Position Yes -Correct Procedure Yes -Procedure Performed Yes -Type of Procedure Debridement -Clinical Debridement Subcutaneous -Tissue Removed Subcutaneous -Post Debridement (cm) - Length 0.4 -Post Debridement (cm) - Width 0.3 -Post Debridement (cm) - Depth 0.2 -Total Square (Post) (cm) 0.12 -Area of Debridement (cm) - Length 0.4 -Area of Debridement (cm) - Width 0.3 -Total Square (Area) (cm) 0.12 -Tunneling No -Undermining/Tunneling No -Undermining/Tunneling Starts (O'clock ) -Undermining/Tunneling Ends (O'clock) -Maximum Distance (cm) -Circular Undermining No -Wound/Ulcer Outcome Not Healed -Ulcer Cleansing Rinsed/ Irrigated with Saline -Foul Odor after Cleansing No -Bioengineered Tissue No -Bleeding Controlled with Pressure -Treatment Response Procedure Tolerated Well -Offloading No -Debridement - Subq, 1st 20sq cm Yes Pain Scale: 0-10 Numeric Is Patient Pain Free? Yes - Nurse 3 - General Ulcer D/C NN Start: 01/10/25 10:34 Freq: Status: Active Protocol: Activity Type Activity Date Activity User E-sign Co-sign Detail Recorded Client Recorded Date Recorded By Document 01/10/25 10:58 CP [id number] 01/10/25 11:00 CP Document 01/17/25 10:53 KW [id number] 01/17/25 10:53 KW Document 01/24/25 11:26 RB [id number] 01/24/25 11:27 RB Document 01/31/25 10:58 KW [id number] 01/31/25 10:59 KW 01/10/25 01/17/25 01/24/25 10:58 10:53 11:26 Wound Care Center Nurse 3 #9 coccyx -Ulcer Cleansing Rinsed/ Rinsed/ Irrigated with Irrigated with Saline Saline -Foul Odor after Cleansing No -Primary Dressing Applied Promogran, Fibracol Plus Fibracol Plus Silicone Border 4x4,Silicone 4x4,NonAdherent Foam 4x4 Border Foam 4x4 Contact Layer, Silicone Border Foam 4x4 -Other Dressing adaptic -Fibracol Plus 4x4 1 1 -Promogran 1 -Silicone Border Foam 4x4 1 1 1 -Silicone Border Foam 6x6 Treatment Response Procedure Tolerated Well Pain Scale: 0-10 Numeric Is Patient Pain Free? Yes Yes Yes WC - Visit Discharge Discharge Condition Stable Stable Stable Ambulatory Status Wheelchair Wheelchair Wheelchair Transportation Private Auto Private Auto Accompanied by home caregiver Medication Reconcilliation completed & No No provided to patient/care provider Clinical Summary of Care Provided Yes Yes Yes 01/31/25 10:58 Wound Care Center Nurse 3 #9 coccyx -Ulcer Cleansing -Foul Odor after Cleansing -Primary Dressing Applied Fibracol Plus 4x4,NonAdherent Contact Layer, Silicone Border Foam 6x6 -Other Dressing -Fibracol Plus 4x4 1 -Promogran -Silicone Border Foam 4x4 -Silicone Border Foam 6x6 1 Treatment Response Pain Scale: 0-10 Numeric Is Patient Pain Free? Yes WC - Visit Discharge Discharge Condition Stable Ambulatory Status Wheelchair Transportation Private Auto Accompanied by Medication Reconcilliation completed & No provided to patient/care provider Clinical Summary of Care Provided Yes Assessment/Plan Assessment/Plan (1) Pressure ulcer of sacral region, stage 3: CODE(S): L89.153 - Pressure ulcer of sacral region, stage 3 (2) Spina bifida: CODE(S): Q05.9 - Spina bifida, unspecified PLAN: Plan Debridement done as documented above, procedure was well-tolerated. Continued improvement noted. Nonew concerns reported or noted at this time. Continue Fibracol, cover with Adaptic and foam dressing. Change dressing daily or when soiled. Continue offloading and reposition often. Optimal protein intake. Their questions were answered and they were advised to let us know if they had any further questions or concerns. Follow-up in a week or sooner if needed. This note was generated with Brainlyation software. It may contain incorrectwords, spelling, and punctuation that were not noted in checking the note beforesigning. 01/31/25 1159 Cosigner Signature (if applicable): CC: ~ Signed [facility]08-27-2025 Progress [facility] [address] [place] [address] OFFICE VISIT Date of Service: 01/30/25 MR#: [id number] Acct: [id number] Name: JULIETTE CREWS RAI Rep #: [id number] : 1975 Provider: ADAN Brewer Age/Sex: 49/F Location: [facility] [place] Status: Signed Intake Vital Signs 08/21/24 13:52 01/22/25 10:01 01/30/25 09:14 Height 4 ft 7.9 in 5 ft 5 ft Weight: 135 lb BMI 26.4 BP 120/81 H Respiration 18 Pulse Oximetry (%) 95 Oxygen Delivery Method room air Intake Visit Reasons: Test Result Chief Complaint: constipaiton 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: No Accompanied by: Caregiver Is patient in pain?: No Allergies amoxicillin (From Augmentin) Adverse Reaction (Verified 01/22/25 09:34) Diarrhea azithromycin (From Zithromax Z-Turner) Adverse Reaction (Verified 01/22/25 09:34) Diarrhea ciprofloxacin (From Cipro) Adverse Reaction (Verified 01/22/25 09:34) Pain in joints clavulanic acid (From Augmentin) Adverse Reaction (Verified 01/22/25 09:34) Diarrhea Medications ?Medication ?Instructions ?Recorded ?Confirmed ?Type multivitamin with folic acid 400 1 tab PO QHS general health 04/24/13 01/30/25 History mcg tablet (Thera) omeprazole 20 mg capsule,delayed 20 mg PO QHS acid ref lux 03/11/18 01/30/25 History release aspirin 81 mg chewable tablet 81 mg PO DAILY@0800 10/0 02/2101/30/25 Rx potassium citrate 15 mEq (1,620 15 meq PO BID ##60 01/30/25 Rx mg) tablet,extended release polyethylene glycol 3350 17 gram 17 gm PO DAILY PRN KS N Constipation 09/14/20 01/30/25 History oral powder packet budesonide 0.25 mg/2 mL suspension 0.25 mg inhalation BID 10/28/21 01/30/25 History for nebulization docusate sodium 100 mg tablet 100 mg PO BID 08/21/24 0 01/30/25 History (Stool Softener) loratadine 10 mg tablet 10 mg PO QDAY 08/21/2401/30 History mupirocin calcium 2 % topical cream 1 applic topical B ID 08/21/24 01/30/25 History oxybutynin chloride 15 mg 5 mg PO TID BLADDER 08/21/24 01/30/25 History tablet,extended release 24 hr psyllium husk 0.52 gram capsule 0.52 g PO QDAY 5 01/30/25 History (Fiber Laxative (psyllium husk)) sertraline 50 mg tablet 50 mg PO QDAY 08/21/2401/30 History Bacillus coagulans 250 million 1 tab PO DAILY 01/22/25 01/30/25 History cell chewable tablet (Digestive Advantage Probiotic Gummy) lisinopril 20 mg tablet 20 mg PO DAILY 01/22/2501/05 History bisacodyl 5 mg tablet,delayed 5 mg PO ONCE PRN constip ation #30 01/30/25 01/30/25 Rx release (Dulcolax (bisacodyl)) tabs lubiprostone 24 mcg capsule 24 mcg PO BID 01/30/25 History PFSH Medical History Suprapubic catheter History of Clostridium difficile infection Anxiety Pressure ulcer Easy bruising Dietary restriction Difficulty chewing Heartburn Sleep apnea On home oxygen therapy Hypertension Decubitus ulcer of right buttock, stage 3 Decubitus ulcer of left buttock, stage 3 GI problem Seasonal allergies Wears glasses Depression Uses wheelchair History of urinary self-catheterization Back pain Constipation Gastric reflux Non-smoker BiPAP (biphasic positive airway pressure) dependence Asthma History of edema History of echocardiogram Hx of back injury Acquired scoliosis Spina bifida Surgical History History of brain surgery History of incision and drainage Hx of eye surgery Hx of ileostomy History of brain shunt History of cystoscopy Hx of cholecystectomy Social History Smoking Status: Never smoker HPI HPI Chief Complaint: constipaiton Details: OV 08/21/2024 49y/o female presents for initial consult with complaints of chronic constipation. PMH of spina bifida. Presents in WC today with her mom, sister andcaregiver from [facility]. She has tried and failed multiple OTC laxatives and enemas. She does experience abdominal distension, bloating and occasional abdominal pain with nausea. She is presently only having a BM 24-48 hours after use of an enema, and family reports this only produces a small smear of a stool.I have started her on Linzess 290mcg once daily. She will proceed with colonoscopy. Discussed risk of skin breakdown secondary to frequent soiling. [facility] and theyare aware they will need to frequently monitor for soiling. Linzess has an increased risk of diarrhea in the first two weeks of treatment. We have discussed importance of daily use and PRN use of laxative while possiblymore convenient have shown to be ineffective. Patient Instructions: Start Linzess 290mcg once daily at 1400. Take on an empty stomach, 30 minutes before a snack. Linzess may cause diarrhea and diarrhea may be worse in the first two weeks of continuous use. Increase fluid intake Discontinue bi-weekly enemas Discontinue stool softener Follow-up in office 10-14 days post procedure COLON 01/22/2025 - Preparation of the colon was fair. - Redundant colon. - Stool in the recto-sigmoid colon, in the sigmoid colon, in the descending colon, at the splenic flexure, in the transverse colon and in the cecum. - No specimens collected. - Repeat colonoscopy in 5 years for surveillance. - seen in office today with mom and staff from [facility] - presents in wheel chair - having a BM daily - denies any pain or bleeding - eating well - still taking fiber supplement daily - since starting Amitiza BID she has not needed Miralax - Bisacodyl 5mg PO every Tuesday, this causes her to stay in bed all day Tuesdaywith diarrhea - wanting to change Bisacodyl PRN - she is having a normal solid BM daily - staff is keep track of bowel movements - denies any pain, bleeding or weight loss - eating well ROS Const Constitutional: No fatigue, fever(s) or weight change ENT ENT: No difficulty swallowing Gastro GI: Positive for diarrhea; No abdominal pain, belching, bloating, change in bowel habits, change in stool character, coffee ground emesis, constipation, cramping, heartburn, difficulty swallowing, feeling full early, excessiveflatus, incontinent of stools, Vomiting blood/hematemesis, Blood in stool, loose stools, Black,tarry stools, nausea/dyspepsia, pain with swallowing, vomiting or other Musc Musculoskeletal: No joint pain Skin Skin: No yellowing of the eye or itchy eyes Psych Psychiatric: No anxiety and No depression Endo Endocrine: No fatigue or weight change Aller/Imm Allergy/Immunologic: No itchy eyes Oscar/Lymp Hematologic/Lymphatic: Positive for easy bruising; No easy bleeding Exam Const General: cooperative, healthy appearing, no acute distress and well developed Nutritional Appearance: well nourished and overweight Orientation: alert Other: presents in [facility] Head: normocephalic Ears: hearing grossly normal bilaterally Mouth: moist mucous membranes Eyes Conjunctivae: conjunctivae normal Sclera: sclerae normal Neck Neck: normal visual inspection, full ROM and trachea midline Resp Effort & Inspection: normal respiratory effort, able to speak in complete sentences and symmetric chest movement Neuro General: patient alert Speech: speech normal Psych Appearance: grossly normal and well kempt Affect: normal affect Attitude: cooperative Thought Process: normal Assessment and Plan Assessment and Plan (1) Chronic idiopathic constipation: Status: Chronic (2) GERD (gastroesophageal reflux disease): Status: Acute Medications: New bisacodyl (Dulcolax (bisacodyl)) as needed for constipation, take 5mg PO if no bowel movement in 48 hours and repeat daily until effective 5 mg PO ONCE PRN 30 tabs 3RF constipation Discontinued bisacodyl Discontinued Reason: Order Changed 5 mg PO FR Plan 49-year-old female with a history of chronic idiopathic constipation, presentingfor routine follow-up and review of current management strategies, including medication adjustments. The patient reports favorable outcomes with Amitiza, experiencing regular bowel movements and improvements in constipation symptoms. GERD remains well-managed with omeprazole. The use of bisacodyl has resulted in significant diarrhea, warranting reassessment of its current weekly schedule in favor of a PRN approach to minimize adverse effects and improve quality of life. Patient Instructions: 1. Continue Amitiza BID 2. Change Bisacodyl from 5mg once weekly to PRN 3. Follow-up in 6 months 4. Continue daily Omeprazole 5. Continue Miralax and stool softener PRN Plan Details Follow Up: 6 Months Coding Level of Care Code Off vis,est,level 3 Diagnoses Chronic idiopathic constipation K59.04 GERD (gastroesophageal reflux disease) K21.9 Clinical Quality Measures Smoking Screening Smoking Status: Never smoker 01/30/25 0927 ivonne CARD-C> Date _ Shell Brewer NP-C Cosigner Signature: Date (if applicable) CC: ~ [facility]08-21-2025 Progress note Author Savannah Kinney [facility] Note Date/Time January 24, 2025 12 :28pm [facility] [address] [place] [address] Progress Note - Wound Care 01/24/25 1225 MR#: [id number] Acct: [id number] Name: JULIETTE CREWS RAI Rep #:[id number] : 1975 49 From: Savannah neri MD PCP: Kassie Polanco H[employer] TRAINING MANAGER-C Status:REG R CR Location: History of Present Illness Date of Service: 01/24/25 Chief Complaint: Sacral/Coccyx Ulcer History of Wound: Ms. Crews is a 49-year-old well-known to me. Recently discharged following healing of decubitus ulcers however, presents with a new sacral area ulcer. Said to have opened on Tuesday. 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 Had been off due to previous decubitus ulcers. Tuesday, new area of opening was noted. No chills, fever or feeling of unwell. Appetite is good. Progress of Wound: Improving. No new concerns reported at this time. Objective Data Objective Data Vital Signs: Vital Signs Temp Pulse Resp BP O2 Del Method 96.4 F L 110 H 18 116/85 H Room Air 01/24/25 10:37 01/24/25 10:37 01/24/25 10:37 01/24/25 10:37 01/24/25 10:37 Oxygen Delivery Method Room Air Charges/Coding Procedures Integumentary 111xxx-113xx: 76580 Sherlyn subq tissue 20 sq cm/< Physical Exam Const alert, oriented x3 and no apparent distress General Appearance: cooperative and well kempt HEENT normocephalic and hearing grossly normal bilaterally Head and Scalp: normal to inspection and atraumatic Neck full ROM and supple Resp normal respiratory effort and normal air movement Effort and Inspection: able to speak in complete sentences Skin Wounds: wounds noted size Size: See clinical note, bed granulating well, no odorand open Neuro oriented x3 and CN's II-XII intact bilaterally Psych mental status grossly normal, cooperative and affect normal Appearance: grossly normal Attitude: calm Speech: normal speech Debridement Note Debridement Note Wound debrided: sacrum Wound Grade/Stage: Stage III Type of Debridement: Excisional debridement Anesthesia Used: 5% Lidocaine Gel Depth: Down to and including healthy tissue and in the subcutaneous layer Percentage of wound debrided: 100 Instrument Used: 3mm curette Tissue Removed: Devitalized tissue Severity: Fat Layer Exposed Amount of bleeding with debridement: Mild Bleeding Controlled with: Pressure Patient tolerated procedure: Patient tolerated procedure well Post-Debridement Measurements and Additional Note: Post-Debridement Measurements/Treatment WC - Nurse 1 - General Ulcer Assessment Start: 01/10/25 10:34 Freq: Status: Active Protocol: WC.LOWEXT Activity Type Activity Date Activity User E-sign Co-sign Detail Recorded Client Recorded Date Recorded By Document 01/10/25 10:34 CP [id number] 01/10/25 10:39 CP Document 01/17/25 10:03 DS [id number] 01/17/25 10:05 DS Document 01/24/25 10:37 DS [id number] 01/24/25 10:48 DS 01/10/25 01/17/25 01/24/25 10:34 10:03 10:37 - Today's Visit Information Type of service Follow-up Visit Follow-up Visit 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 (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 (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 ) ) ) Arrival Mode Wheelchair Wheelchair Wheelchair Transfer Assistance Manual Manual Manual Transfer Assist (Other) 2 Accompanied by aides aides Patient Identification Verified (Name & Yes Yes Yes ) Safety Precautions Fall Prevention Vital Signs Temperature (97.8 F-99.1 F) 97 F L 96.4 F L 96.4 F L Temperature Source Temporal Temporal Temporal Pulse Rate (60-100) 92 100 110 H Pulse Location Monitor Monitor Monitor Respiratory Rate (12-18) 16 18 18 Respiratory rate source Observation Observation Observation Oxygen Delivery Method Room Air Room Air Blood Pressure (90/60-120/80) 122/85 H 139/83 H 116/85 H Blood Pressure Mean (mm Hg) 97 101 95 Source Monitor Monitor Monitor Position Semi-Fowlers Semi-Fowlers Semi-Fowlers Blood Pressure Location Left Forearm Left Forearm Left Arm History Since Last Visit- (Skip if this is Patient's initial visit) Have you changed medications since your No No No last visit? Any new allergies or adverse reactions No No No Had a fall/change in ADL's that may No No No increase risk of falls Signs or symptoms of abuse and/or No No No neglect since last visit Have you been in the hospital since your No No No last visit? Has dressing in place as prescribed Yes Yes Yes Has compression in place as prescribed N/A N/A N/A Has offloadiing in place as prescribed N/A N/A N/A Experienced any changes in pain level or No No No management Left Footwear Regular Shoe Right Footwear Regular Shoe Pain Scale: 0-10 Numeric Is Patient Pain Free? Yes Yes Yes [facility] Nurse 1 - General Ulcer Measurement Start: 01/10/25 10:34 Freq: Status: Active Protocol: Activity Type Activity Date Activity User E-sign Co-sign Detail Recorded Client Recorded Date Recorded By Document 01/10/25 10:34 CP [id number] 01/10/25 10:39 CP Document 01/17/25 10:05 DS [id number] 01/17/25 10:13 DS Document 01/24/25 10:37 DS [id number] 01/24/25 10:48 DS 01/10/25 01/17/25 01/24/25 10:34 10:05 10:37 Wound Center Nurse 1 #9 coccyx -Current Size (cm) - Length 0.7 0.9 0.4 -Current Size (cm) - Width 0.5 1.2 0.5 -Current Size (cm) - Depth 0.3 0.2 0.3 -Total Square Cm 0.35 1.08 0.20 -Date of Last Picture (Recall this 01/17/25 01/24/25 field) -Photo Taken Yes Yes Yes -Tunneling No No -Undermining/Tunneling No No -Circular Undermining No No -Exudate Amt Medium Small Medium -Exudate Type Serosanguineous Serosanguineous Serosanguineous -Wound Margin Flat & Intact Distinct, Outline Attached -Granulation Amt Large (67-100%) Small (1-33%) -Granulation Quality [place] -Slough/Fibrin No -Necrosis Amt Medium (34-66%) -Necrotic Tissue Type Adherent Slough -Structure Exposed N/A -Texture (Patience-wound Skin Appearance) No Abnormality Assessed Assessed -Moisture (Patience-wound Skin Appearance) No Abnormality Assessed Assessed, Maceration -Color (Patience-wound Skin Appearance) No Abnormality Assessed Assessed -Temperature (Patience-wound Skin No Abnormality No Abnormality No Abnormality Appearance) (Pt Warm) (Pt Warm) (Pt Warm) -Tenderness on Palpation (Patience-wound No No No Skin Appearance) -Ulcer Cleansing Soap and Water Soap and Water Rinsed/ Irrigated with Saline -Foul Odor after Cleansing No No No -Anesthetic Used 5% Lidocaine 5% Lidocaine 5% Lidocaine Gel Gel Gel WC - Nurse 2 - General Ulcer CM Notes Start: 01/10/25 10:34 Freq: Status: Active Protocol: Activity Type Activity Date Activity User E-sign Co-sign Detail Recorded Client Recorded Date Recorded By Document 01/10/25 10:47 [id number] 01/10/25 10:53 Document 01/17/25 10:23 [id number] 01/17/25 10:30 GM Document 01/24/25 11:05 [id number] 01/24/25 11:06 GM Edit Result 01/24/25 11:05 (1) [id number] 01/24/25 11:08 GM (1) #9 coccyx - Post Debridement (cm) - Length => 0.5 - Post Debridement (cm) - Width => 0.4 - Post Debridement (cm) - Depth => 0.2 - Total Square (Post) (cm) => 0.20 - Area of Debridement (cm) - Length => 0.5 - Area of Debridement (cm) - Width => 0.4 - Total Square (Area) (cm) => 0.20 01/10/25 01/17/25 01/24/25 10:47 10:23 11:05 Wound Center Nurse 2 #9 coccyx -Time 10:47 10:24 11:05 -Correct Patient Yes Yes Yes -Correct Side, Site, Position Yes Yes Yes -Correct Procedure Yes Yes Yes -Procedure Performed Yes Yes Yes -Type of Procedure Debridement Debridement Debridement -Clinical Debridement Subcutaneous Subcutaneous Subcutaneous -Tissue Removed Subcutaneous Subcutaneous Subcutaneous -Post Debridement (cm) - Length 0.5 0.7 0.5 -Post Debridement (cm) - Width 0.9 0.5 0.4 -Post Debridement (cm) - Depth 0.6 0.4 0.2 -Total Square (Post) (cm) 0.45 0.35 0.20 -Area of Debridement (cm) - Length 0.5 0.7 0.5 -Area of Debridement (cm) - Width 0.9 0.5 0.4 -Total Square (Area) (cm) 0.45 0.35 0.20 -Tunneling No No No -Undermining/Tunneling Yes Yes No -Undermining/Tunneling Starts (O'clock 11 11 ) -Undermining/Tunneling Ends (O'clock) 2 2 -Maximum Distance (cm) 0.6 0.5 -Circular Undermining No No No -Wound/Ulcer Outcome Not Healed Not Healed Not Healed -Ulcer Cleansing Rinsed/ Rinsed/ Rinsed/ Irrigated with Irrigated with Irrigated with Saline Saline Saline -Foul Odor after Cleansing No No No -Bioengineered Tissue No No No -Bleeding Controlled with Pressure Pressure Pressure -Treatment Response Procedure Procedure Procedure Tolerated Well Tolerated Well Tolerated Well -Offloading No No No -Debridement - Subq, 1st 20sq cm Yes Yes Yes Pain Scale: 0-10 Numeric Is Patient Pain Free? Yes Yes Yes - Nurse 3 - General Ulcer D/C NN Start: 01/10/25 10:34 Freq: Status: Active Protocol: Activity Type Activity Date Activity User E-sign Co-sign Detail Recorded Client Recorded Date Recorded By Document 01/10/25 10:58 CP [id number] 01/10/25 11:00 CP Document 01/17/25 10:53 KW [id number] 01/17/25 10:53 KW Document 01/24/25 11:26 RB [id number] 01/24/25 11:27 RB 01/10/25 01/17/25 01/24/25 10:58 10:53 11:26 Wound Care Center Nurse 3 #9 coccyx -Ulcer Cleansing Rinsed/ Rinsed/ Irrigated with Irrigated with Saline Saline -Foul Odor after Cleansing No -Primary Dressing Applied Promogran, Fibracol Plus Fibracol Plus Silicone Border 4x4,Silicone 4x4,NonAdherent Foam 4x4 Border Foam 4x4 Contact Layer, Silicone Border Foam 4x4 -Other Dressing adaptic -Fibracol Plus 4x4 1 1 -Promogran 1 -Silicone Border Foam 4x4 1 1 1 Treatment Response Procedure Tolerated Well Pain Scale: 0-10 Numeric Is Patient Pain Free? Yes Yes Yes - Visit Discharge Discharge Condition Stable Stable Stable Ambulatory Status Wheelchair Wheelchair Wheelchair Transportation Private Auto Private Auto Accompanied by home caregiver Medication Reconcilliation completed & No No provided to patient/care provider Clinical Summary of Care Provided Yes Yes Yes Assessment/Plan Assessment/Plan (1) Pressure ulcer of sacral region, stage 3: CODE(S): L89.153 - Pressure ulcer of sacral region, stage 3 (2) Spina bifida: CODE(S): Q05.9 - Spina bifida, unspecified PLAN: Plan Debridement done as documented above, procedure was well-tolerated. Continued improvement noted. No new concerns reported or noted at this time. Continue Fibracol, cover with Adaptic and foam dressing. Change dressing daily or when soiled. Continue offloading and reposition often. Optimal protein intake. Their questions were answered and they were advised to let us know if they had any further questions or concerns. Follow-up in a week or sooner if needed. This note was generated with [employer] dictation software. It may contain incorrectwords, spelling, and punctuation that were not noted in checking the note beforesigning. 01/24/25 1228 <Electronically signed by Savannah Kinney MD> Cosigner Signature (if applicable): CC: ~ Signed [facility] Work Phone: 1(624) 878-179308-21-2025 Progress note [facility] [address] [place] [address] Progress Note - Wound Care 01/24/25 1225 MR#: [id number] Acct: [id number] Name: JULIETTE CREWS RAI Rep #:[id number] : 1975 49 From: Savannah neri MD PCP: Kassie Polanco NP-C Status:REG R CR Location: History of Present Illness Date of Service: 01/24/25 Chief Complaint: Sacral/Coccyx Ulcer History of Wound: Ms. Crews is a 49-year-old well-known to me. Recently discharged following healingof decubitus ulcers however, presents with a new sacral area ulcer. Said to have opened on Tuesday. 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 Had been off due to previous decubitus ulcers. Tuesday, new area of opening was noted. No chills, fever or feeling of unwell. Appetite is good. Progress of Wound: Improving. No new concerns reported at this time. Objective Data Objective Data Vital Signs: Vital Signs Temp Pulse Resp BP O2 Del Method 96.4 F L 110 H 18 116/85 H Room Air 01/24/25 10:37 01/24/25 10:37 01/24/25 10:37 01/24/25 10:37 01/24/25 10:37 Oxygen Delivery Method Room Air Charges/Coding Procedures Integumentary 111xxx-113xx: 38562 Sherlyn subq tissue 20 sq cm/< Physical Exam Const alert, oriented x3 and no apparent distress General Appearance: cooperative and well kempt HEENT normocephalic and hearing grossly normal bilaterally Head and Scalp: normal to inspection and atraumatic Neck full ROM and supple Resp normal respiratory effort and normal air movement Effort and Inspection: able to speak in complete sentences Skin Wounds: wounds noted size Size: See clinical note, bed granulating well, no odorand open Neuro oriented x3 and CN's II-XII intact bilaterally Psych mental status grossly normal, cooperative and affect normal Appearance: grossly normal Attitude: calm Speech: normal speech Debridement Note Debridement Note Wound debrided: sacrum Wound Grade/Stage: Stage III Type of Debridement: Excisional debridement Anesthesia Used: 5% Lidocaine Gel Depth: Down to and including healthy tissue and in the subcutaneous layer Percentage of wound debrided: 100 Instrument Used: 3mm curette Tissue Removed: Devitalized tissue Severity: Fat Layer Exposed Amount of bleeding with debridement: Mild Bleeding Controlled with: Pressure Patient tolerated procedure: Patient tolerated procedure well Post-Debridement Measurements and Additional Note: Post-Debridement Measurements/Treatment - Nurse 1 - General Ulcer Assessment Start: 01/10/25 10:34 Freq: Status: Active Protocol: [email or web address].DAMIÁNT Activity Type Activity Date Activity User E-sign Co-sign Detail Recorded Client Recorded Date Recorded By Document 01/10/25 10:34 CP [id number] 01/10/25 10:39 CP Document 01/17/25 10:03 DS [id number] 01/17/25 10:05 DS Document 01/24/25 10:37 DS [id number] 01/24/25 10:48 DS 01/10/25 01/17/25 01/24/25 10:34 10:03 10:37 [facility] Today's Visit Information Type of service Follow-up Visit Follow-up Visit 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 (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 (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 ) ) ) Arrival Mode Wheelchair Wheelchair Wheelchair Transfer Assistance Manual Manual Manual Transfer Assist (Other) 2 Accompanied by aides aides Patient Identification Verified (Name & Yes Yes Yes ) Safety Precautions Fall Prevention Vital Signs Temperature (97.8 F-99.1 F) 97 F L 96.4 F L 96.4 F L Temperature Source Temporal Temporal Temporal Pulse Rate (60-100) 92 100 110 H Pulse Location Monitor Monitor Monitor Respiratory Rate (12-18) 16 18 18 Respiratory rate source Observation Observation Observation Oxygen Delivery Method Room Air Room Air Blood Pressure (90/60-120/80) 122/85 H 139/83 H 116/85 H Blood Pressure Mean (mm Hg) 97 101 95 Source Monitor Monitor Monitor Position Semi-Fowlers Semi-Fowlers Semi-Fowlers Blood Pressure Location Left Forearm Left Forearm Left Arm History Since Last Visit- (Skip if this is Patient's initial visit) Have you changed medications since your No No No last visit? Any new allergies or adverse reactions No No No Had a fall/change in ADL's that may No No No increase risk of falls Signs or symptoms of abuse and/or No No No neglect since last visit Have you been in the hospital since your No No No last visit? Has dressing in place as prescribed Yes Yes Yes Has compression in place as prescribed N/A N/A N/A Has offloadiing in place as prescribed N/A N/A N/A Experienced any changes in pain level or No No No management Left Footwear Regular Shoe Right Footwear Regular Shoe Pain Scale: 0-10 Numeric Is Patient Pain Free? Yes Yes Yes WC - Nurse 1 - General Ulcer Measurement Start: 01/10/25 10:34 Freq: Status: Active Protocol: Activity Type Activity Date Activity User E-sign Co-sign Detail Recorded Client Recorded Date Recorded By Document 01/10/25 10:34 CP [id number] 01/10/25 10:39 CP Document 01/17/25 10:05 DS [id number] 01/17/25 10:13 DS Document 01/24/25 10:37 DS [id number] 01/24/25 10:48 DS 01/10/25 01/17/25 01/24/25 10:34 10:05 10:37 Wound Center Nurse 1 #9 coccyx -Current Size (cm) - Length 0.7 0.9 0.4 -Current Size (cm) - Width 0.5 1.2 0.5 -Current Size (cm) - Depth 0.3 0.2 0.3 -Total Square Cm 0.35 1.08 0.20 -Date of Last Picture (Recall this 01/17/25 01/24/25 field) -Photo Taken Yes Yes Yes -Tunneling No No -Undermining/Tunneling No No -Circular Undermining No No -Exudate Amt Medium Small Medium -Exudate Type Serosanguineous Serosanguineous Serosanguineous -Wound Margin Flat & Intact Distinct, Outline Attached -Granulation Amt Large (67-100%) Small (1-33%) -Granulation Quality [place] -Slough/Fibrin No -Necrosis Amt Medium (34-66%) -Necrotic Tissue Type Adherent Slough -Structure Exposed N/A -Texture (Patience-wound Skin Appearance) No Abnormality Assessed Assessed -Moisture (Patience-wound Skin Appearance) No Abnormality Assessed Assessed, Maceration -Color (Patience-wound Skin Appearance) No Abnormality Assessed Assessed -Temperature (Patience-wound Skin No Abnormality No Abnormality No Abnormality Appearance) (Pt Warm) (Pt Warm) (Pt Warm) -Tenderness on Palpation (Patience-wound No No No Skin Appearance) -Ulcer Cleansing Soap and Water Soap and Water Rinsed/ Irrigated with Saline -Foul Odor after Cleansing No No No -Anesthetic Used 5% Lidocaine 5% Lidocaine 5% Lidocaine Gel Gel Gel WC - Nurse 2 - General Ulcer CM Notes Start: 01/10/25 10:34 Freq: Status: Active Protocol: Activity Type Activity Date Activity User E-sign Co-sign Detail Recorded Client Recorded Date Recorded By Document 01/10/25 10:47 [id number] 01/10/25 10:53 GM Document 01/17/25 10:23 GM [id number] 01/17/25 10:30 GM Document 01/24/25 11:05 GM [id number] 01/24/25 11:06 GM Edit Result 01/24/25 11:05 GM (1) [id number] 01/24/25 11:08 GM (1) #9 coccyx - Post Debridement (cm) - Length => 0.5 - Post Debridement (cm) - Width => 0.4 - Post Debridement (cm) - Depth => 0.2 - Total Square (Post) (cm) => 0.20 - Area of Debridement (cm) - Length => 0.5 - Area of Debridement (cm) - Width => 0.4 - Total Square (Area) (cm) => 0.20 01/10/25 01/17/25 01/24/25 10:47 10:23 11:05 Wound Center Nurse 2 #9 coccyx -Time 10:47 10:24 11:05 -Correct Patient Yes Yes Yes -Correct Side, Site, Position Yes Yes Yes -Correct Procedure Yes Yes Yes -Procedure Performed Yes Yes Yes -Type of Procedure Debridement Debridement Debridement -Clinical Debridement Subcutaneous Subcutaneous Subcutaneous -Tissue Removed Subcutaneous Subcutaneous Subcutaneous -Post Debridement (cm) - Length 0.5 0.7 0.5 -Post Debridement (cm) - Width 0.9 0.5 0.4 -Post Debridement (cm) - Depth 0.6 0.4 0.2 -Total Square (Post) (cm) 0.45 0.35 0.20 -Area of Debridement (cm) - Length 0.5 0.7 0.5 -Area of Debridement (cm) - Width 0.9 0.5 0.4 -Total Square (Area) (cm) 0.45 0.35 0.20 -Tunneling No No No -Undermining/Tunneling Yes Yes No -Undermining/Tunneling Starts (O'clock 11 11 ) -Undermining/Tunneling Ends (O'clock) 2 2 -Maximum Distance (cm) 0.6 0.5 -Circular Undermining No No No -Wound/Ulcer Outcome Not Healed Not Healed Not Healed -Ulcer Cleansing Rinsed/ Rinsed/ Rinsed/ Irrigated with Irrigated with Irrigated with Saline Saline Saline -Foul Odor after Cleansing No No No -Bioengineered Tissue No No No -Bleeding Controlled with Pressure Pressure Pressure -Treatment Response Procedure Procedure Procedure Tolerated Well Tolerated Well Tolerated Well -Offloading No No No -Debridement - Subq, 1st 20sq cm Yes Yes Yes Pain Scale: 0-10 Numeric Is Patient Pain Free? Yes Yes Yes WC - Nurse 3 - General Ulcer D/C NN Start: 01/10/25 10:34 Freq: Status: Active Protocol: Activity Type Activity Date Activity User E-sign Co-sign Detail Recorded Client Recorded Date Recorded By Document 01/10/25 10:58 CP [id number] 01/10/25 11:00 CP Document 01/17/25 10:53 KW [id number] 01/17/25 10:53 KW Document 01/24/25 11:26 RB [id number] 01/24/25 11:27 RB 01/10/25 01/17/25 01/24/25 10:58 10:53 11:26 Wound Care Center Nurse 3 #9 coccyx -Ulcer Cleansing Rinsed/ Rinsed/ Irrigated with Irrigated with Saline Saline -Foul Odor after Cleansing No -Primary Dressing Applied Promogran, Fibracol Plus Fibracol Plus Silicone Border 4x4,Silicone 4x4,NonAdherent Foam 4x4 Border Foam 4x4 Contact Layer, Silicone Border Foam 4x4 -Other Dressing adaptic -Fibracol Plus 4x4 1 1 -Promogran 1 -Silicone Border Foam 4x4 1 1 1 Treatment Response Procedure Tolerated Well Pain Scale: 0-10 Numeric Is Patient Pain Free? Yes Yes Yes WC - Visit Discharge Discharge Condition Stable Stable Stable Ambulatory Status Wheelchair Wheelchair Wheelchair Transportation Private Auto Private Auto Accompanied by home caregiver Medication Reconcilliation completed & No No provided to patient/care provider Clinical Summary of Care Provided Yes Yes Yes Assessment/Plan Assessment/Plan (1) Pressure ulcer of sacral region, stage 3: CODE(S): L89.153 - Pressure ulcer of sacral region, stage 3 (2) Spina bifida: CODE(S): Q05.9 - Spina bifida, unspecified PLAN: Plan Debridement done as documented above, procedure was well-tolerated. Continued improvement noted. Nonew concerns reported or noted at this time. Continue Fibracol, cover with Adaptic and foam dressing. Change dressing daily or when soiled. Continue offloading and reposition often. Optimal protein intake. Their questions were answered and they were advised to let us know if they had any further questions or concerns. Follow-up in a week or sooner if needed. This note was generated with [employer] dictation software. It may contain incorrectwords, spelling, and punctuation that were not noted in checking the note beforesigning. 01/24/25 1228 Cosigner Signature (if applicable): CC: ~ Signed [facility]08-19-2025 History and physical note Author Mario Friend [facility] Note Date/Time January 22, 2025 11 :42am [facility] Medical Records Department [address] [place] [address] History & Physical Exam 01/22/25 1139 MR#: [id number] Acct: [id number] Name: JULIETTE CREWS RAI Rep #:[id number] : 1975 49 From: Mario Rai DO PCP: GARY JosephC Status:REG S DC Location: [place] [address] HPI - General General Date of Admission: 01/22/25 Date of Service: 01/22/25 Chief Complaint: Constipation HPI Narrative JULIETTE CREWS, is a 49 F who presents Chief Complaint: constipaiton - she is seen in the office today with her mom, sister and caregiver - used to do digital stimulation - enema on Tuesday and Fridays - stools are very small - smears or skid alexandra - Dulcolax 4 tabs and 2 stool softeners would result in an explosive stool - denies any abdominal pain - does experience abdominal distension - she will have nausea with laxatives - has a history of bed sores, presently none - has choked significantly in the past - she is supposed to be on a special diet, food is chopped up into small pieces,que often to take small bites, alternate sips and swallow - h/o CCX - denies any family h/o colon CA - in past she did a bag enema of water but this never worked, this was years ago - denies any weight loss - sister reports the idea behind the enemas two days a week, was so she could have a BM in a controlled environment and still function and go to shop during the week without interfering with her daily activities - sister reports she really needs to keep to her daily routine for her QOL - while this seems ideal, it does not appear practical [facility] Medical History Suprapubic catheter History of Clostridium difficile infection Anxiety Pressure ulcer Easy bruising Dietary restriction Difficulty chewing Heartburn Sleep apnea On home oxygen therapy Hypertension Decubitus ulcer of right buttock, stage 3 Decubitus ulcer of left buttock, stage 3 GI problem Seasonal allergies Wears glasses Depression Uses wheelchair History of urinary self-catheterization Back pain Constipation Gastric reflux Non-smoker BiPAP (biphasic positive airway pressure) dependence Asthma History of edema History of echocardiogram Hx of back injury Acquired scoliosis Spina bifida Home Medications ?Medication ?Instructions ?Recorded ?Last Taken ?Type multivitamin with folic acid 400 1 tab PO QHS general health 04/24/13 01/22/25 History mcg tablet (Thera) omeprazole 20 mg capsule,delayed 20 mg PO QHS acid ref lux 03/11/18 01/21/25 History release aspirin 81 mg chewable tablet 81 mg PO DAILY@0800 10/0 9/18 08/19/25 Rx potassium citrate 15 mEq (1,620 15 meq PO BID ##60 01/22/25 Rx mg) tablet,extended release polyethylene glycol 3350 17 gram 17 gm PO DAILY PRN KS N Constipation 09/14/20 01/22/25 History oral powder packet budesonide 0.25 mg/2 mL suspension 0.25 mg inhalation BID 10/28/21 Unknown History for nebulization bisacodyl 5 mg tablet 5 mg PO FR 08/21/24 Unknown History docusate sodium 100 mg tablet 100 mg PO BID 08/21/24 0 01/22/25 History (Stool Softener) loratadine 10 mg tablet 10 mg PO QDAY 08/21/2401/22 History mupirocin calcium 2 % topical cream 1 applic topical B ID 08/21/24 01/22/25 History oxybutynin chloride 15 mg 5 mg PO TID BLADDER 08/21/24 01/22/25 History tablet,extended release 24 hr psyllium husk 0.52 gram capsule 0.52 g PO QDAY 5 01/22/25 History (Fiber Laxative (psyllium husk)) sertraline 50 mg tablet 50 mg PO QDAY 08/21/2401/22 History peg 3350-electrolytes 236 240 ml PO Q10M #4,000 mL 01/21/25 Rx gram-22.74 gram-6.74 gram-5.86 gram solution (Golytely) Bacillus coagulans 250 million 1 tab PO DAILY 01/22/25 Unknown History cell chewable tablet (Digestive Advantage Probiotic Gummy) lisinopril 20 mg tablet 20 mg PO DAILY 01/22/2501/04 History Allergy/AdvReac Type Severity Reaction Status Date / Time amoxicillin (From Augmentin) AdvReac Diarrhea Verified 01/22/25 09:34 azithromycin (From Zithromax AdvReac Diarrhea Verified 01/22/25 09:34 Z-Turner) ciprofloxacin (From Cipro) AdvReac Pain in Verified 01/22/25 09:34 joints clavulanic acid (From AdvReac Diarrhea Verified 01/22/25 09:34 Augmentin) Surgical History History of brain surgery History of incision and drainage Hx of eye surgery Hx of ileostomy History of brain shunt History of cystoscopy Hx of cholecystectomy Social History Smoking Status: Never smoker ROS Constitutional Constitutional: Denies fatigue, fever(s), poor appetite, weight gain or weight loss Gastrointestinal Gastrointestinal: Denies belching, bloating, change in bowel habits, change in stool character, chewing difficulty, coffee ground emesis, constipation, cramping, diarrhea, dyspepsia, dysphagia, early satiety, excessive flatus, fecalincontinence, heartburn, hematemesis, hematochezia, hemorrhoids, loose stools, melena, nausea, odynophagia, rectal bleeding, tenesmus, vomiting or weight changes Vital Signs Vital Signs Vital Signs: 01/22/25 10:01 01/22/25 10:05 01/22/25 10:41 Temperature 97.5 F L Temperature Source Temporal Pulse Rate 110 H Respiratory Rate 16 Respiratory Pattern Normal Blood Pressure 137/99 H Blood Pressure Mean 111 Blood Pressure Source Monitor Blood Pressure Position Semi-Fowlers Blood Pressure Location Right Arm Pulse Ox 97 Oxygen Delivery Method Room Air Room Air Weight Weight: 135 lb Body Mass Index (BMI) 26.4 Physical Exam Const alert, oriented x3, no apparent distress and healthy appearing General Appearance: cooperative GI normal to inspection, nondistended, normoactive bowel sounds, soft to palpation,non-tender and non-distended Percussion: normal to percussion Rectal Exam: deferred Assessment & Plan Assessment/Plan (1) Constipation: QUALIFIERS: Constipation type: chronic idiopathic constipation Qualified Code(s): K59.04 - Chronic idiopathic constipation PLAN: Assessment and Plan Assessment and Plan (1) Constipation: Status: Acute Qualifiers: Constipation type: chronic idiopathic constipation Qualified Code(s): K59.04 - Chronic idiopathic constipation Orders: Orders Thyroid Stim Hormone (TSH) Today K59.00 - Constipation, unspecified Medications: New linaclotide (Linzess) 290 mcg PO QDAY 90 caps 1RF peg 3350-electrolytes 236-22.74-6.74 -5.86 gram (Golytely) take as directed for split dose bowel prep 240 mL PO Q10M 4,000 mL 0RF ondansetron HCl 4 mg orally; take two tablets PO two hours prior to start of bowel prep and one every 4 hours as needed for N/V 10 tabs 0RF Plan 49y/o female presents for initial consult with complaints of chronic constipation. PMH of spina bifida. Presents in today with her mom, sister andcaregiver from [facility]. She has tried and failed multiple OTC laxatives and enemas. She does experience abdominal distension, bloating and occasional abdominal pain with nausea. She is presently only having a BM 24-48 hours after use of an enema, and family reports this only produces a small smear of a stool.I have started her on Linzess 290mcg once daily. She will proceed with colonoscopy. Discussed risk of skin breakdown secondary to frequent soiling. She resides in [facility] and they are aware they will need to frequently monitor for soiling. Linzess has an increased risk of diarrhea in the first two weeks of treatment. We have discussed importance of daily use and PRN use of laxative while possiblymore convenient have shown to be ineffective. Patient Instructions: Start Linzess 290mcg once daily at 1400. Take on an empty stomach, 30 minutes before a snack. Linzess may cause diarrhea and diarrhea may be worse in the first two weeks of continuous use. Increase fluid intake Discontinue bi-weekly enemas Discontinue stool softener Follow-up in office 10-14 days post procedure 01/22/25 1142 <Electronically signed by Mario Rai DO> Cosigner Signature (if applicable): CC: HUMAN RESOURCES TRAINING MANAGER-C Kassie Polanco; Mario Rai DO~ Signed [facility] Work Phone: [phone]) 915-638208-19-2025 Consult note [facility] Medical Records Department [address] [place] [address] Anesthesia Postop Eval I 01/22/25 1251 MR#: [id number] Acct: [id number] Name: JULIETTE CREWS RAI Rep #:[id number] : 1975 49 From: Rex Martinez PCP: ADAN Joseph Status:REG S DC Y Race: C Location: [place] [address] Anesthesia: Postop Eval I Current Vital Signs Temperature: 99.3 F Pulse Rate: 109 Blood Pressure: 126/71 Respiratory Rate: 18 Pulse Ox: 100 Oxygen Delivery Method: Room Air Assessment Airway patent: Yes Spontaneous unlabored respirations: Yes Mental status: Awake nausea: No Vomiting: No Anesthesia Complication: Yes Anesthesia Complication Comment:: in situ IV infiltrated Fluid Hydration Crystalloid volume administer (ml): 300 Total IV fluid infused: 300 Progress Note Anesthesia document: Postop Eval 1 completed: Yes 01/22/25 1252 > Date _ Rex Martinez Cosdrake Signature: Date CC: ~ Signed [facility]08-19-2025 Procedure note [facility] Medical Records Department [address] [place] [address] Colonoscopy Report MR#: [id number] Acct: [id number] Name: JULIETTE CREWS RAI Rep #:[id number] : 1975 49 From: Mario Rai DO PCP: ADAN Joseph Status:REG S DC Patient Name: Juliette Crews Procedure Date: 01/22/2025 11:23 AM Date of : 1975 Age: 49 Procedure: Colonoscopy Indications: Screening for colorectal malignant neoplasm Providers: Mario Rai DO Referring MD: Adan Joseph Medicines: Monitored Anesthesia Care Patient Profile: This is a 49 year old female. Refer to note in patient chart for documentation of history and physical. Last Colonoscopy: none. The patient's first colonoscopy is today. Complications: No immediate complications. Procedure: Pre-Anesthesia Assessment: - Prior to the procedure, a History and Physical was performed, and patient medications and allergies were reviewed. The patient is competent. The risks and benefits of the procedure and the sedation options and risks were discussed with the patient. All questions were answered and informed consent was obtained. Patient identification and proposed procedure were verified by the physician in the pre-procedure area. Mental Status Examination: alert and oriented. Airway Examination: normal oropharyngeal airway and neck mobility. Respiratory Examination: clear to auscultation. CV Examination: normal. Prophylactic Antibiotics: The patient does not require prophylactic antibiotics. Prior Anticoagulants: The patient has taken no anticoagulant or antiplatelet agents. ASA Grade Assessment: III - A patient with severe systemic disease. After reviewing the risks and benefits, the patient was deemed in satisfactory condition to undergo the procedure. The anesthesia plan was to use monitored anesthesia care (MAC). Immediately prior to administration of medications, the patient was re-assessed for adequacy to receive sedatives. The heart rate, respiratory rate, oxygen saturations, blood pressure, adequacy of pulmonary ventilation, and response to care were monitored throughout the procedure. The physical status of the patient was re-assessed after the procedure. After I obtained informed consent, the scope was passed under direct vision. Throughout the procedure, the patient's blood pressure, pulse, and oxygen saturations were monitored continuously. The Colonoscope was introduced through the anus and advanced to the cecum, identified by appendiceal orifice and ileocecal valve. The colonoscopy was performed without difficulty. The patient tolerated the procedure well. The quality of the bowel preparation was fair. The ileocecal valve, appendiceal orifice, and rectum were photographed. Scope In: 12:21:55 PM Scope Withdrawal Time 0 hours 12 minutes 25 seconds Scope Out: 12:40:55 PM Total Procedure Duration Time 0 hours 19 minutes 0 seconds Findings: The perianal and digital rectal examinations were normal. The colon (entire examined portion) was significantly redundant. Stool was found in the recto-sigmoid colon, in the sigmoid colon, in the descending colon, at the splenic flexure, in the transverse colon and in the cecum. Lavage of the area was performed using greater than 500 mL, resulting in incomplete clearance with fair visualization. Impression: - Preparation of the colon was fair. - Redundant colon. - Stool in the recto-sigmoid colon, in the sigmoid colon, in the descending colon, at the splenic flexure, in the transverse colon and in the cecum. - No specimens collected. Recommendation: - Discharge patient to home. - Resume previous diet. - Continue present medications. - Repeat colonoscopy in 5 years for surveillance. Procedure Code(s): --- Professional --- 61859, Colonoscopy, flexible; diagnostic, including collection of specimen(s) by brushing or washing, when performed (separate procedure) CPT copyright 2021 [employer]. All rights reserved. The codes documented in this report are preliminary and upon field sales trainer review may be revised to meet current compliance requirements. Mario Rai DO 01/22/2025 12:48:14 PM This report has been signed electronically. Number of Addenda: 0 Note Initiated On: 01/22/2025 11:23 AM 01/22/25 1248 Date _ Mario Rai DO Cosigner Signature: Date (if indicated) CC: HUMAN RESOURCES TRAINING MANAGEREllie Polanco; Mario Rai DO ~ Date Dictated: 01/22/25 1123 Date Transcribed: Museum Registrar: RF Signed [facility]08-19-2025 Procedure note [facility] Medical Records Department [address] [place] [address] Provation Physician Letter MR#: [id number] Acct: [id number] Name: JULIETTE CREWS RAI Rep #:[id number] : 1975 49 From: Mario Rai DO PCP: ADAN Joseph Status:REG S DC 01/22/2025 Adan Joseph Re : Colonoscopy procedure for Juliette Crews Mitra Polanco This procedure was performed on Wednesday, January 22, 2025. My impressions and recommendations are as follows: Impressions : - Preparation of the colon was fair. - Redundant colon. - Stool in the recto-sigmoid colon, in the sigmoid colon, in the descending colon, at the splenic flexure, in the transverse colon and in the cecum. - No specimens collected. Recommendations : - Discharge patient to home. - Resume previous diet. - Continue present medications. - Repeat colonoscopy in 5 years for surveillance. My findings are described in the full procedure note, which is enclosed. If I can be of further assistance, please feel free to contact me at . Sincerely, Mario Cecelia 01/22/2025 12:48:14 PM This report has been signed electronically. 01/22/25 1248 Date _ Mario Cecelia HOPKINS Cosigner Signature: Date (if indicated) CC: HUMAN RESOURCES TRAINING MANAGER-C Kassie Polanco; Mario DO Cecelia ~ Date Dictated: 01/22/25 1123 Date Transcribed: Museum Registrar: RF Signed [facility]08-19-2025 Consult note Author Kaiser Rowland [facility] Note Date/Time January 22, 2025 10 :41am [facility] Medical Records Department [address] [place] [address] Pre-Anesthesia Evaluation 01/22/25 1040 MR#: [id number] Acct: [id number] Name: JULIETTE CREWS RAI Rep #:[id number] : 1975 49 From: Kaiser Rowland MD PCP: ADAN Joseph Status:REG S DC Y Race: C Location: [place] [address] ASA Classification* ASA Classification ASA Classification: 3 Assessment & Plan Anesthesia* Anesthesia Assessment Anesthesia Assessment: Discussed sedation and/or anesthesia options, risks, benefits, and alternatives with patient/parents/legal guardian/POA. Questions invited. The patient/parents/legal guardian/POA seems to understand and agrees to proceedwith anesthesia plan. Reviewed the physical assessment, medical history, allergy history and patient home medications list prior to surgery/procedure/anesthetic and documented any changes. Performed airway and anesthesia risk assessments. Anesthesia Type Anesthesia Type: MAC History Source History Obtained from:: Patient, Chart and Parent/ Guardian Anesthesia Focused Assessment* Oxygen Delivery Method: Room Air Airway Assessment Mouth opens: 2 cm Mallampati Score: III Teeth Condition: Intact Neck Range of motion (ROM): Full ROM Labs Anesthesia Preop lab: CBC WBC 13.0 K/mm3 (4.4-11.0) H 06/02/22 15:23 2 RBC 4.24 M/mm3 (4.2-5.4) 06/02/22 15:23 06/02/22 Hgb 12.6 g/dL (12.0-15.0) 06/02/22 15:23 06/02/22 Hct 38.7 % (37-47) 06/02/22 15:23 06/02/22 Plt Count 442 K/mm3 (150-450) 06/02/22 15:23 06/02/22 CHEMISTRY Potassium 3.4 mmol/L (3.5-5.1) L 10/12/21 14:13 10/12/21 Sodium 139 mmol/L (136-145) 10/12/21 14:13 10/12/21 Magnesium 2.0 mg/dL (1.6-2.6) 03/12/18 11:30 03/12/18 BUN 9 mg/dL (7-18) 10/12/21 14:13 10/12/21 Creatinine 0.56 mg/dL (0.55-1.02) 10/12/21 14:13 10/12/21 Glucose 122 mg/dL (74-106) H 10/12/21 14:13 10/12/21 TSH 2.40 uIU/mL (0.358-3.74) 03/12/18 11:30 COAG Urine Test Negative Negative 09/11/20 11:48 09/11/20 Pre-Assessment Diagnosis/Proposed Procedure Planned Operative Procedure(s): COLONOSCOPY Anesthesia History Anesthesia History - faculty research assistant: Anesthesia History - faculty research assistant Hx Hospitalization No 01/22/25 10:33 Any Problems With Anesthesia No 01/22/25 10:33 Cholinesterase deficiency No 01/22/25 10:33 You/Your Family Experience No 01/22/25 10:33 fever (hyperthermia) with Relationship Recent Exposure to Contagious No 11/04/21 13:39 Disease Does patient have nerve No 01/22/25 10:33 stimulator Patient instructed to have device shut off --Does patient have Pacemaker or ICD? When Was Last Pacemaker Check QUESTION #4 FULL TEXT: You/Your Family Experience fever (hyperthermia) with Anesthesia Last Oral Intake Last Oral intake: Last Oral Intake NPO since Meds taken in AM with sips of water? Meds patient instructed to take am of surgery PONV PONV - faculty research assistant: PONV - faculty research assistant Female Yes 01/22/25 10:33 HX of Motion Sickness No 01/22/25 10:33 HX of N/V After Surgery No 01/22/25 10:33 Non-Smoker Yes 01/22/25 10:33 Duration of Surgery greater No 01/22/25 10:33 than 60 minutes Number of Risk Factors 2 01/22/25 10:33 PONV Score Moderate Risk 01/22/25 10:33 Height & Weight Height & Weight: Anesthesia: Height & Weight Height 4 ft 7.9 in 08/21/24 13:52 Respiratory Assessment Respiratory Assessment - faculty research assistant: Respiratory Tract Infection Hx - faculty research assistant Hx Respiratory Tract Infection No 01/22/25 10:33 STOP Sleep Apnea STOP Sleep Apnea - faculty research assistant: STOP Sleep Apnea - faculty research assistant Hx Hypertension Yes 01/22/25 10:33 Hx Sleep Apnea Yes 01/22/25 10:33 CPAP No 01/22/25 10:33 BIPAP Yes 01/22/25 10:33 Do you snore loudly (louder than talking or can be heard Do you often feel tired/ fatigued/ sleepy during daytime? Has anyone observed you stop breathing during sleep? STOP Results Positive 01/22/25 10:33 QUESTION #5 FULL TEXT : Do you snore loudly (louder than talking or can be heard through closed doors)? Tobacco Use History Tobacco Use History - faculty research assistant: Tobacco Use History - faculty research assistant Tobacco Use Smoking Status Never smoker 01/22/25 10:33 Hx Tobacco Use No 01/22/25 10:33 Years Smoking Packs Smoked per Day Smoking Cessation Date was within the last 15 years Hx Smoking Cessation Date Hx Smoking Cessation Counseling Hematologic Medial History Hematologic Hx - faculty research assistant: Hematologic Medical Hx - medical research assistant Hx of Blood Transfusion No 01/22/25 10:33 Hx of Transfusion in last 3 No 01/22/25 10:33 Months Date of Last Transfusion (if within last 3 months) Ever experience any problems No 01/22/25 10:33 with transfusion(s)? Specify any problems Hx of Preganancy in last 3 No 01/22/25 10:33 Months Nurse Filling Out Transfusion MGRIFFITH 01/22/25 10:33 & Questions: Date: 01/22/25 01/22/25 10:33 Time: 10:34 01/22/25 10:33 Patient unable to answer at this time (ie. confused, unrespo /Reproduction History /Reproductive History - faculty research assistant: /Reproductive Hx- faculty research assistant Hx Now No 01/22/25 10:33 Gestational Age (in weeks): EDC: Hx Hx Para Hx Section SAB No 01/22/25 10:33 Active Medications Active Medications: Current Medications Generic Name Dose Route Start Last Admin Trade Name Freq PRN Reason Stop Dose Admin Lactated Ringer's 1,000 mls @ 15 mls/hr 01/22/25 09:45 01/22/25 10:01 IV 15 mls/hr .Q48H MONE Administration PFSH Medical History Decubitus ulcer of right buttock, stage 3 Decubitus ulcer of left buttock, stage 3 UTI (urinary tract infection) GI problem Kidney stone Seasonal allergies Wears glasses Depression Uses wheelchair History of urinary self-catheterization Back pain Constipation Gastric reflux Non-smoker BiPAP (biphasic positive airway pressure) dependence Asthma History of edema History of echocardiogram Hx of back injury Acquired scoliosis Spina bifida Home Medications ?Medication ?Instructions ?Recorded ?Last Taken ?Type multivitamin with folic acid 400 1 tab PO QHS general health 04/24/13 01/22/25 History mcg tablet (Thera) omeprazole 20 mg capsule,delayed 20 mg PO QHS acid ref lux 03/11/18 01/21/25 History release aspirin 81 mg chewable tablet 81 mg PO DAILY@0800 10/0 02/2101/22/25 Rx potassium citrate 15 mEq (1,620 15 meq PO BID ##60 01/22/25 Rx mg) tablet,extended release polyethylene glycol 3350 17 gram 17 gm PO DAILY PRN KS N Constipation 09/14/20 01/22/25 History oral powder packet budesonide 0.25 mg/2 mL suspension 0.25 mg inhalation BID 10/28/21 Unknown History for nebulization bisacodyl 5 mg tablet 5 mg PO FR 08/21/24 Unknown History docusate sodium 100 mg tablet 100 mg PO BID 08/21/24 0 01/22/25 History (Stool Softener) loratadine 10 mg tablet 10 mg PO QDAY 08/21/2401/22 History mupirocin calcium 2 % topical cream 1 applic topical B ID 08/21/24 01/22/25 H istory oxybutynin chloride 15 mg 5 mg PO TID BLADDER 08/21/24 01/22/25 History tablet,extended release 24 hr psyllium husk 0.52 gram capsule 0.52 g PO QDAY 5 01/22/25 History (Fiber Laxative (psyllium husk)) sertraline 50 mg tablet 50 mg PO QDAY 08/21/2401/22 History peg 3350-electrolytes 236 240 ml PO Q10M #4,000 mL 01/21/25 Rx gram-22.74 gram-6.74 gram-5.86 gram solution (Golytely) Bacillus coagulans 250 million 1 tab PO DAILY 01/22/25 Unknown History cell chewable tablet (Digestive Advantage Probiotic Gummy) lisinopril 20 mg tablet 20 mg PO DAILY 01/22/2501/04 History Allergy/AdvReac Type Severity Reaction Status Date / Time amoxicillin (From Augmentin) AdvReac Diarrhea Verified 01/22/25 09:34 azithromycin (From Zithromax AdvReac Diarrhea Verified 01/22/25 09:34 Z-Turner) ciprofloxacin (From Cipro) AdvReac Pain in Verified 01/22/25 09:34 joints clavulanic acid (From AdvReac Diarrhea Verified 01/22/25 09:34 Augmentin) Surgical History History of incision and drainage Hx of eye surgery Hx of ileostomy History of brain shunt History of cystoscopy Hx of cholecystectomy Social History Smoking Status: Never smoker Review of Systems (Anesthesia) ROS Narrative System reviewed and no additional complaints, except as documented. Physical Exam Resp normal respiratory effort and normal air movement Cardio regular rate and regular rhythm 01/22/25 1041 <Electronically signed by Kaiser Roman> Date _ Kaiser Palma Signature: Date CC: ~ Signed [facility] Work Phone: [phone] History and physical note [facility] Medical Records Department [address] [place] [address] History & Physical Exam 01/22/25 1139 MR#: [id number] Acct: [id number] Name: JULIETTE CREWS RAI Rep #:[id number] : 1975 49 From: Mario Friend DO PCP: Kassie Polanco NP-C Status:REG S DC Location: [place] [address] HPI - General General Date of Admission: 01/22/25 Date of Service: 01/22/25 Chief Complaint: Constipation HPI Narrative JULIETTE CREWS, is a 49 F who presents Chief Complaint: constipaiton - she is seen in the office today with her mom, sister and caregiver - used to do digital stimulation - enema on Tuesday and Fridays - stools are very small - smears or skid alexandra - Dulcolax 4 tabs and 2 stool softeners would result in an explosive stool - denies any abdominal pain - does experience abdominal distension - she will have nausea with laxatives - has a history of bed sores, presently none - has choked significantly in the past - she is supposed to be on a special diet, food is chopped up into small pieces,que often to take small bites, alternate sips and swallow - h/o CCX - denies any family h/o colon CA - in past she did a bag enema of water but this never worked, this was years ago - denies any weight loss - sister reports the idea behind the enemas two days a week, was so she could have a BM in a controlled environment and still function and go to shop during the week without interfering with her daily activities - sister reports she really needs to keep to her daily routine for her QOL - while this seems ideal, it does not appear practical [facility] Medical History Suprapubic catheter History of Clostridium difficile infection Anxiety Pressure ulcer Easy bruising Dietary restriction Difficulty chewing Heartburn Sleep apnea On home oxygen therapy Hypertension Decubitus ulcer of right buttock, stage 3 Decubitus ulcer of left buttock, stage 3 GI problem Seasonal allergies Wears glasses Depression Uses wheelchair History of urinary self-catheterization Back pain Constipation Gastric reflux Non-smoker BiPAP (biphasic positive airway pressure) dependence Asthma History of edema History of echocardiogram Hx of back injury Acquired scoliosis Spina bifida Home Medications ?Medication ?Instructions ?Recorded ?Last Taken ?Type multivitamin with folic acid 400 1 tab PO QHS general health 04/24/13 01/22/25 History mcg tablet (Thera) omeprazole 20 mg capsule,delayed 20 mg PO QHS acid ref lux 03/11/18 01/21/25 History release aspirin 81 mg chewable tablet 81 mg PO DAILY@0800 10/0 02/2101/22/25 Rx potassium citrate 15 mEq (1,620 15 meq PO BID ##60 01/22/25 Rx mg) tablet,extended release polyethylene glycol 3350 17 gram 17 gm PO DAILY PRN KS N Constipation 09/14/20 01/22/25 History oral powder packet budesonide 0.25 mg/2 mL suspension 0.25 mg inhalation BID 10/28/21 Unknown History for nebulization bisacodyl 5 mg tablet 5 mg PO FR 08/21/24 Unknown History docusate sodium 100 mg tablet 100 mg PO BID 08/21/24 0 01/22/25 History (Stool Softener) loratadine 10 mg tablet 10 mg PO QDAY 08/21/2401/22 History mupirocin calcium 2 % topical cream 1 applic topical B ID 08/21/24 01/22/25 History oxybutynin chloride 15 mg 5 mg PO TID BLADDER 08/21/24 01/22/25 History tablet,extended release 24 hr psyllium husk 0.52 gram capsule 0.52 g PO QDAY 2 5 01/22/25 History (Fiber Laxative (psyllium husk)) sertraline 50 mg tablet 50 mg PO QDAY 08/21/2401/22 History peg 3350-electrolytes 236 240 ml PO Q10M #4,000 mL 01/21/25 Rx gram-22.74 gram-6.74 gram-5.86 gram solution (Golytely) Bacillus coagulans 250 million 1 tab PO DAILY 01/22/25 Unknown History cell chewable tablet (Digestive Advantage Probiotic Gummy) lisinopril 20 mg tablet 20 mg PO DAILY 01/22/2501/04 History Allergy/AdvReac Type Severity Reaction Status Date / Time amoxicillin (From Augmentin) AdvReac Diarrhea Verified 01/22/25 09:34 azithromycin (From Zithromax AdvReac Diarrhea Verified 01/22/25 09:34 Z-Turner) ciprofloxacin (From Cipro) AdvReac Pain in Verified 01/22/25 09:34 joints clavulanic acid (From AdvReac Diarrhea Verified 01/22/25 09:34 Augmentin) Surgical History History of brain surgery History of incision and drainage Hx of eye surgery Hx of ileostomy History of brain shunt History of cystoscopy Hx of cholecystectomy Social History Smoking Status: Never smoker ROS Constitutional Constitutional: Denies fatigue, fever(s), poor appetite, weight gain or weight loss Gastrointestinal Gastrointestinal: Denies belching, bloating, change in bowel habits, change in stool character, chewing difficulty, coffee ground emesis, constipation, cramping, diarrhea, dyspepsia, dysphagia, earlysatiety, excessive flatus, fecalincontinence, heartburn, hematemesis, hematochezia, hemorrhoids, loose stools, melena, nausea, odynophagia, rectal bleeding, tenesmus, vomiting or weight changes Vital Signs Vital Signs Vital Signs: 01/22/25 10:01 01/22/25 10:05 01/22/25 10:41 Temperature 97.5 F L Temperature Source Temporal Pulse Rate 110 H Respiratory Rate 16 Respiratory Pattern Normal Blood Pressure 137/99 H Blood Pressure Mean 111 Blood Pressure Source Monitor Blood Pressure Position Semi-Fowlers Blood Pressure Location Right Arm Pulse Ox 97 Oxygen Delivery Method Room Air Room Air Weight Weight: 135 lb Body Mass Index (BMI) 26.4 Physical Exam Const alert, oriented x3, no apparent distress and healthy appearing General Appearance: cooperative GI normal to inspection, nondistended, normoactive bowel sounds, soft to palpation,non-tender and non-distended Percussion: normal to percussion Rectal Exam: deferred Assessment & Plan Assessment/Plan (1) Constipation: QUALIFIERS: Constipation type: chronic idiopathic constipation Qualified Code(s): K59.04 - Chronic idiopathic constipation PLAN: Assessment and Plan Assessment and Plan (1) Constipation: Status: Acute Qualifiers: Constipation type: chronic idiopathic constipation Qualified Code(s): K59.04 - Chronic idiopathic constipation Orders: Orders Thyroid Stim Hormone (TSH) Today K59.00 - Constipation, unspecified Medications: New linaclotide (Linzess) 290 mcg PO QDAY 90 caps 1RF peg 3350-electrolytes 236-22.74-6.74 -5.86 gram (Golytely) take as directed for split dose bowel prep 240 mL PO Q10M 4,000 mL 0RF ondansetron HCl 4 mg orally; take two tablets PO two hours prior to start of bowel prep and one every 4 hours as needed for N/V 10 tabs 0RF Plan 49y/o female presents for initial consult with complaints of chronic constipation. PMH of spina bifida. Presents in WC today with her mom, sister andcaregiver from [facility]. She has tried and failed multiple OTC laxatives and enemas. She does experience abdominal distension, bloating and occasional abdominal pain with nausea. She is presently only having a BM 24-48 hours after use of an enema, and family reports this only produces a small smear of a stool.I have started her on Linzess 290mcg once daily. She will proceed with colonoscopy. Discussed risk of skin breakdown secondary to frequent soiling. [facility] and theyare aware they will need to frequently monitor for soiling. Linzess has an increased risk of diarrhea in the first two weeks of treatment. We have discussed importance of daily use and PRN use of laxative while possiblymore convenient have shown to be ineffective. Patient Instructions: Start Linzess 290mcg once daily at 1400. Take on an empty stomach, 30 minutes before a snack. Linzess may cause diarrhea and diarrhea may be worse in the first two weeks of continuous use. Increase fluid intake Discontinue bi-weekly enemas Discontinue stool softener Follow-up in office 10-14 days post procedure 01/22/25 1142 Cosigner Signature (if applicable): CC: HUMAN RESOURCES TRAINING MANAGER-Martell Polanco; Mario Rai, ~ Signed [facility]08-19-2025 [facility] Medical Records Department [address] [place] [address] History Physical Exam 01/22/25 1139 MR#: [id number] Acct: [id number] Name: JULIETTE CREWS RAI Rep #: [id number] : 1975 49 From: Mario Rai DO PCP: ADAN Joseph Status:[facility] Location: [place] [address] HPI - General General Date of Admission: 01/22/25 Date of Service: 01/22/25 Chief Complaint: Constipation HPI Narrative JULIETTE CREWS, is a 49 F who presents Chief Complaint: constipaiton - she is seen in the office today with her mom, sister and caregiver - used to do digital stimulation - enema on Tuesday and Fridays - stools are very small - smears or skid alexandra - Dulcolax 4 tabs and 2 stool softeners would result in an explosive stool - denies any abdominal pain - does experience abdominal distension - she will have nausea with laxatives - has a history of bed sores, presently none - has choked significantly in the past - she is supposed to be on a special diet, food is chopped up into small pieces, que often to take small bites, alternate sips and swallow - h/o CCX - denies any family h/o colon CA - in past she did a bag enema of water but this never worked, this was years ago - denies any weight loss - sister reports the idea behind the enemas two days a week, was so she could have a BM in a controlled environment and still function and go to shop during the week without interfering with her daily activities - sister reports she really needs to keep to her daily routine for her QOL - while this seems ideal, it does not appear practical [facility] Medical History Suprapubic catheter History of Clostridium difficile infection Anxiety Pressure ulcer Easy bruising Dietary restriction Difficulty chewing Heartburn Sleep apnea On home oxygen therapy Hypertension Decubitus ulcer of right buttock, stage 3 Decubitus ulcer of left buttock, stage 3 GI problem Seasonal allergies Wears glasses Depression Uses wheelchair History of urinary self-catheterization Back pain Constipation Gastric reflux Non-smoker BiPAP (biphasic positive airway pressure) dependence Asthma History of edema History of echocardiogram Hx of back injury Acquired scoliosis Spina bifida Home Medications ???Medication ???Instructions ???Recorded ???Last Taken ???Type multivitamin with folic acid 400 1 tab PO QHS general health 01/22/25 History mcg tablet (Thera) omeprazole 20 mg capsule,delayed 20 mg PO QHS acid reflux 03/11/18 01/21/25 History release aspirin 81 mg chewable tablet 81 mg PO DAILY@0800 03/14/1801/22 Rx potassium citrate 15 mEq (1,620 15 meq PO BID ##60 03/23/19 Rx mg) tablet,extended release polyethylene glycol 3350 17 gram 17 gm PO DAILY PRN PRN Constipatio n 09/14/20 01/22/25 History oral powder packet budesonide 0.25 mg/2 mL suspension 0.25 mg inhalation BID 10/28/21 Unknown History for nebulization bisacodyl 5 mg tablet 5 mg PO FR 08/21/24 Unknown Histor y docusate sodium 100 mg tablet 100 mg PO BID 08/21/24 01/22/25 Hi story (Stool Softener) loratadine 10 mg tablet 10 mg PO QDAY 08/21/24 01/22/25 Hi story mupirocin calcium 2 % topical cream 1 applic topical BID 08/21/24 0 01/22/25 History oxybutynin chloride 15 mg 5 mg PO TID BLADDER 08/21/2401/22 History tablet,extended release 24 hr psyllium husk 0.52 gram capsule 0.52 g PO QDAY 08/21/24 01/22/25 H istory (Fiber Laxative (psyllium husk)) sertraline 50 mg tablet 50 mg PO QDAY 08/21/24 01/22/25 Hi story peg 3350-electrolytes 236 240 ml PO Q10M #4,000 mL 01/16/25 01/21/25 Rx gram-22.74 gram-6.74 gram-5.86 gram solution (Golytely) Bacillus coagulans 250 million 1 tab PO DAILY 01/22/25 Unknown Hi story cell chewable tablet (Digestive Advantage Probiotic Gummy) lisinopril 20 mg tablet 20 mg PO DAILY 01/22/25 01/22/25 H istory Allergy/AdvReac Type Severity Reaction Status Date / Time amoxicillin (From Augmentin) AdvReac Diarrhea Verified 01/22/25 09:34 azithromycin (From Zithromax AdvReac Diarrhea Verified 01/22/25 09:34 Z-Turner) ciprofloxacin (From Cipro) AdvReac Pain in Verified 01/22/25 09:34 joints clavulanic acid (From AdvReac Diarrhea Verified 01/22/25 09:34 Augmentin) Surgical History History of brain surgery History of incision and drainage Hx of eye surgery Hx of ileostomy History of brain shunt History of cystoscopy Hx of cholecystectomy Social History Smoking Status: Never smoker ROS Constitutional Constitutional: Denies fatigue, fever(s), poor appetite, weigh (more content not included)...[facility]08-19-2025 Consult note [facility] Medical Records Department [address] [place] [address] Pre-Anesthesia Evaluation 01/22/25 1040 MR#: [id number] Acct: [id number] Name: JULIETTE CREWS RAI Rep #:[id number] : 1975 49 From: Kaiser Rowland MD PCP: Kassie Polanco NP-Martell Status:REG S DC Y Race: C Location: [place] [address] ASA Classification* ASA Classification ASA Classification: 3 Assessment & Plan Anesthesia* Anesthesia Assessment Anesthesia Assessment: Discussed sedation and/or anesthesia options, risks, benefits, and alternatives with patient/parents/legal guardian/POA. Questions invited. The patient/parents/legal guardian/POA seems to understand and agrees to proceedwith anesthesia plan. Reviewed the physical assessment, medical history, allergy history and patient home medications list prior to surgery/procedure/anesthetic and documented any changes. Performed airway and anesthesia risk assessments. Anesthesia Type Anesthesia Type: MAC History Source History Obtained from:: Patient, Chart and Parent/ Guardian Anesthesia Focused Assessment* Oxygen Delivery Method: Room Air Airway Assessment Mouth opens: 2 cm Mallampati Score: III Teeth Condition: Intact Neck Range of motion (ROM): Full ROM Labs Anesthesia Preop lab: CBC WBC 13.0 K/mm3 (4.4-11.0) H 06/02/22 15:23 2 RBC 4.24 M/mm3 (4.2-5.4) 06/02/22 15:23 06/02/22 Hgb 12.6 g/dL (12.0-15.0) 06/02/22 15:23 06/02/22 Hct 38.7 % (37-47) 06/02/22 15:23 06/02/22 Plt Count 442 K/mm3 (150-450) 06/02/22 15:23 06/02/22 CHEMISTRY Potassium 3.4 mmol/L (3.5-5.1) L 10/12/21 14:13 10/12/21 Sodium 139 mmol/L (136-145) 10/12/21 14:13 10/12/21 Magnesium 2.0 mg/dL (1.6-2.6) 03/12/18 11:30 03/12/18 BUN 9 mg/dL (7-18) 10/12/21 14:13 10/12/21 Creatinine 0.56 mg/dL (0.55-1.02) 10/12/21 14:13 10/12/21 Glucose 122 mg/dL (74-106) H 10/12/21 14:13 10/12/21 TSH 2.40 uIU/mL (0.358-3.74) 03/12/18 11:30 COAG Urine Test Negative Negative 09/11/20 11:48 09/11/20 Pre-Assessment Diagnosis/Proposed Procedure Planned Operative Procedure(s): COLONOSCOPY Anesthesia History Anesthesia History - faculty research assistant: Anesthesia History - faculty research assistant Hx Hospitalization No 01/22/25 10:33 Any Problems With Anesthesia No 01/22/25 10:33 Cholinesterase deficiency No 01/22/25 10:33 You/Your Family Experience No 01/22/25 10:33 fever (hyperthermia) with Relationship Recent Exposure to Contagious No 11/04/21 13:39 Disease Does patient have nerve No 01/22/25 10:33 stimulator Patient instructed to have device shut off --Does patient have Pacemaker or ICD? When Was Last Pacemaker Check QUESTION #4 FULL TEXT: You/Your Family Experience fever (hyperthermia) with Anesthesia Last Oral Intake Last Oral intake: Last Oral Intake NPO since Meds taken in AM with sips of water? Meds patient instructed to take am of surgery PONV PONV - faculty research assistant: PONV - faculty research assistant Female Yes 01/22/25 10:33 HX of Motion Sickness No 01/22/25 10:33 HX of N/V After Surgery No 01/22/25 10:33 Non-Smoker Yes 01/22/25 10:33 Duration of Surgery greater No 01/22/25 10:33 than 60 minutes Number of Risk Factors 2 01/22/25 10:33 PONV Score Moderate Risk 01/22/25 10:33 Height & Weight Height & Weight: Anesthesia: Height & Weight Height 4 ft 7.9 in 08/21/24 13:52 Respiratory Assessment Respiratory Assessment - faculty research assistant: Respiratory Tract Infection Hx - faculty research assistant Hx Respiratory Tract Infection No 01/22/25 10:33 STOP Sleep Apnea STOP Sleep Apnea - faculty research assistant: STOP Sleep Apnea - faculty research assistant Hx Hypertension Yes 01/22/25 10:33 Hx Sleep Apnea Yes 01/22/25 10:33 CPAP No 01/22/25 10:33 BIPAP Yes 01/22/25 10:33 Do you snore loudly (louder than talking or can be heard Do you often feel tired/ fatigued/ sleepy during daytime? Has anyone observed you stop breathing during sleep? STOP Results Positive 01/22/25 10:33 QUESTION #5 FULL TEXT : Do you snore loudly (louder than talking or can be heard through closeddoors)? Tobacco Use History Tobacco Use History - faculty research assistant: Tobacco Use History - faculty research assistant Tobacco Use Smoking Status Never smoker 01/22/25 10:33 Hx Tobacco Use No 01/22/25 10:33 Years Smoking Packs Smoked per Day Smoking Cessation Date was within the last 15 years Hx Smoking Cessation Date Hx Smoking Cessation Counseling Hematologic Medial History Hematologic Hx - faculty research assistant: Hematologic Medical Hx - medical research assistant Hx of Blood Transfusion No 01/22/25 10:33 Hx of Transfusion in last 3 No 01/22/25 10:33 Months Date of Last Transfusion (if within last 3 months) Ever experience any problems No 01/22/25 10:33 with transfusion(s)? Specify any problems Hx of Preganancy in last 3 No 01/22/25 10:33 Months Nurse Filling Out Transfusion MGRIFFITH 01/22/25 10:33 & Questions: Date: 01/22/25 01/22/25 10:33 Time: 10:34 01/22/25 10:33 Patient unable to answer at this time (ie. confused, unrespo /Reproduction History /Reproductive History - faculty research assistant: /Reproductive Hx- faculty research assistant Hx Now No 01/22/25 10:33 Gestational Age (in weeks): EDC: Hx Hx Para Hx Section SAB No 01/22/25 10:33 Active Medications Active Medications: Current Medications Generic Name Dose Route Start Last Admin Trade Name Freq PRN Reason Stop Dose Admin Lactated Ringer's 1,000 mls @ 15 mls/hr 01/22/25 09:45 01/22/25 10:01 IV 15 mls/hr .Q48H MONE Administration PFSH Medical History Decubitus ulcer of right buttock, stage 3 Decubitus ulcer of left buttock, stage 3 UTI (urinary tract infection) GI problem Kidney stone Seasonal allergies Wears glasses Depression Uses wheelchair History of urinary self-catheterization Back pain Constipation Gastric reflux Non-smoker BiPAP (biphasic positive airway pressure) dependence Asthma History of edema History of echocardiogram Hx of back injury Acquired scoliosis Spina bifida Home Medications ?Medication ?Instructions ?Recorded ?Last Taken ?Type multivitamin with folic acid 400 1 tab PO QHS general health 04/24/13 01/22/25 History mcg tablet (Thera) omeprazole 20 mg capsule,delayed 20 mg PO QHS acid ref lux 03/11/18 01/21/25 History release aspirin 81 mg chewable tablet 81 mg PO DAILY@0800 10/0 02/2101/22/25 Rx potassium citrate 15 mEq (1,620 15 meq PO BID ##60 01/22/25 Rx mg) tablet,extended release polyethylene glycol 3350 17 gram 17 gm PO DAILY PRN KS N Constipation 09/14/20 01/22/25 History oral powder packet budesonide 0.25 mg/2 mL suspension 0.25 mg inhalation BID 10/28/21 Unknown History for nebulization bisacodyl 5 mg tablet 5 mg PO FR 08/21/24 Unknown History docusate sodium 100 mg tablet 100 mg PO BID 08/21/24 0 01/22/25 History (Stool Softener) loratadine 10 mg tablet 10 mg PO QDAY 08/21/2401/22 History mupirocin calcium 2 % topical cream 1 applic topical B ID 08/21/24 01/22/25 H istory oxybutynin chloride 15 mg 5 mg PO TID BLADDER 08/21/24 01/22/25 History tablet,extended release 24 hr psyllium husk 0.52 gram capsule 0.52 g PO QDAY 5 01/22/25 History (Fiber Laxative (psyllium husk)) sertraline 50 mg tablet 50 mg PO QDAY 08/21/2401/22 History peg 3350-electrolytes 236 240 ml PO Q10M #4,000 mL 01/21/25 Rx gram-22.74 gram-6.74 gram-5.86 gram solution (Golytely) Bacillus coagulans 250 million 1 tab PO DAILY 01/22/25 Unknown History cell chewable tablet (Digestive Advantage Probiotic Gummy) lisinopril 20 mg tablet 20 mg PO DAILY 01/22/2501/04 History Allergy/AdvReac Type Severity Reaction Status Date / Time amoxicillin (From Augmentin) AdvReac Diarrhea Verified 01/22/25 09:34 azithromycin (From Zithromax AdvReac Diarrhea Verified 01/22/25 09:34 Z-Turner) ciprofloxacin (From Cipro) AdvReac Pain in Verified 01/22/25 09:34 joints clavulanic acid (From AdvReac Diarrhea Verified 01/22/25 09:34 Augmentin) Surgical History History of incision and drainage Hx of eye surgery Hx of ileostomy History of brain shunt History of cystoscopy Hx of cholecystectomy Social History Smoking Status: Never smoker Review of Systems (Anesthesia) ROS Narrative System reviewed and no additional complaints, except as documented. Physical Exam Resp normal respiratory effort and normal air movement Cardio regular rate and regular rhythm 01/22/25 1041 D> Date _ Kaiser Rowland MD Cosigner Signature: Date CC: ~ Signed [facility]08-14-2025 Progress note Author [facility] Kinney [facility] Note Date/Time January 17, 2025 11 :29am [facility] [address] [place] [address] Progress Note - Wound Care 01/17/25 1037 MR#: [id number] Acct: [id number] Name: JULIETTE CREWS RAI Rep #:[id number] : 1975 49 From: Savannah neri MD PCP: Kassie Polanco, STEPHIE-C Status:REG R CR Location: History of Present Illness Date of Service: 01/17/25 Chief Complaint: Sacral/Coccyx Ulcer History of Wound: Ms. Crews is a 49-year-old well-known to me. Recently discharged following healing of decubitus ulcers however, presents with a new sacral area ulcer. Said to have opened on Tuesday. 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 Had been off due to previous decubitus ulcers. Tuesday, new area of opening was noted. No chills, fever or feeling of unwell. Appetite is good. Progress of Wound: Switched to Fibracol at her last visit due to [facility] restrictions and state laws. Caregiver states that dressing changes have been done consistently and noconcerns reported at this time. Objective Data Objective Data Vital Signs: Vital Signs Temp Pulse Resp BP O2 Del Method 96.4 F L 100 18 139/83 H Room Air 01/17/25 10:03 01/17/25 10:03 01/17/25 10:03 01/17/25 10:03 01/17/25 10:03 Oxygen Delivery Method Room Air Charges/Coding Procedures Integumentary 111xxx-113xx: 67733 Sherlyn subq tissue 20 sq cm/< Physical Exam Const alert, oriented x3 and no apparent distress General Appearance: cooperative and well kempt HEENT normocephalic and hearing grossly normal bilaterally Head and Scalp: normal to inspection and atraumatic Neck full ROM and supple Resp normal respiratory effort and normal air movement Effort and Inspection: able to speak in complete sentences Skin Wounds: wounds noted size Size: See clinical note, bed granulating well and withslough, no odor, open and surrounding erythema Neuro oriented x3 and CN's II-XII intact bilaterally Psych mental status grossly normal, cooperative and affect normal Appearance: grossly normal Attitude: calm Speech: normal speech Debridement Note Debridement Note Wound debrided: Sacrum Wound Grade/Stage: Stage III Type of Debridement: Excisional debridement Anesthesia Used: 5% Lidocaine Gel Depth: Down to and including healthy tissue and in the subcutaneous layer Percentage of wound debrided: 100 Instrument Used: 3mm curette Tissue Removed: Slough and devitalized tissue Severity: Fat Layer Exposed Amount of bleeding with debridement: Mild Bleeding Controlled with: Pressure Patient tolerated procedure: Patient tolerated procedure well Post-Debridement Measurements and Additional Note: Post-Debridement Measurements/Treatment JESSICA - Nurse 1 - General Ulcer Assessment Start: 01/10/25 10:34 Freq: Status: Active Protocol: TOBIN Activity Type Activity Date Activity User E-sign Co-sign Detail Recorded Client Recorded Date Recorded By Document 01/10/25 10:34 CP [id number] 01/10/25 10:39 CP Document 01/17/25 10:03 DS [id number] 01/17/25 10:05 [email or web address] 01/10/25 01/17/25 10:34 10:03 WC - Today's Visit Information Type of service Follow-up Visit 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 (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 ) ) Arrival Mode Wheelchair Wheelchair Transfer Assistance Manual Manual Transfer Assist (Other) 2 Accompanied by aides Patient Identification Verified (Name & Yes Yes ) Vital Signs Temperature (97.8 F-99.1 F) 97 F L 96.4 F L Temperature Source Temporal Temporal Pulse Rate (60-100) 92 100 Pulse Location Monitor Monitor Respiratory Rate (12-18) 16 18 Respiratory rate source Observation Observation Oxygen Delivery Method Room Air Blood Pressure (90/60-120/80) 122/85 H 139/83 H Blood Pressure Mean (mm Hg) 97 101 Source Monitor Monitor Position Semi-Fowlers Semi-Fowlers Blood Pressure Location Left Forearm Left Forearm History Since Last Visit- (Skip if this is Patient's initial visit) Have you changed medications since your No No last visit? Any new allergies or adverse reactions No No Had a fall/change in ADL's that may No No increase risk of falls Signs or symptoms of abuse and/or No No neglect since last visit Have you been in the hospital since your No No last visit? Has dressing in place as prescribed Yes Yes Has compression in place as prescribed N/A N/A Has offloadiing in place as prescribed N/A N/A Experienced any changes in pain level or No No management Pain Scale: 0-10 Numeric Is Patient Pain Free? Yes Yes - Nurse 1 - General Ulcer Measurement Start: 01/10/25 10:34 Freq: Status: Active Protocol: Activity Type Activity Date Activity User E-sign Co-sign Detail Recorded Client Recorded Date Recorded By Document 01/10/25 10:34 CP [id number] 01/10/25 10:39 CP Document 01/17/25 10:05 DS [id number] 01/17/25 10:13 DS 01/10/25 01/17/25 10:34 10:05 Wound Center Nurse 1 #9 coccyx -Current Size (cm) - Length 0.7 0.9 -Current Size (cm) - Width 0.5 1.2 -Current Size (cm) - Depth 0.3 0.2 -Total Square Cm 0.35 1.08 -Date of Last Picture (Recall this 01/17/25 field) -Photo Taken Yes Yes -Tunneling No -Undermining/Tunneling No -Circular Undermining No -Exudate Amt Medium Small -Exudate Type Serosanguineous Serosanguineous -Wound Margin Flat & Intact Distinct, Outline Attached -Granulation Amt Large (67-100%) Small (1-33%) -Granulation Quality [place] -Slough/Fibrin No -Necrosis Amt Medium (34-66%) -Necrotic Tissue Type Adherent Slough -Structure Exposed N/A -Texture (Patience-wound Skin Appearance) No Abnormality Assessed -Moisture (Patience-wound Skin Appearance) No Abnormality Assessed -Color (Patience-wound Skin Appearance) No Abnormality Assessed -Temperature (Patience-wound Skin No Abnormality No Abnormality Appearance) (Pt Warm) (Pt Warm) -Tenderness on Palpation (Patience-wound No No Skin Appearance) -Ulcer Cleansing Soap and Water Soap and Water -Foul Odor after Cleansing No No -Anesthetic Used 5% Lidocaine 5% Lidocaine Gel Gel WC - Nurse 2 - General Ulcer CM Notes Start: 01/10/25 10:34 Freq: Status: Active Protocol: Activity Type Activity Date Activity User E-sign Co-sign Detail Recorded Client Recorded Date Recorded By Document 01/10/25 10:47 [id number] 01/10/25 10:53 Document 01/17/25 10:23 [id number] 01/17/25 10:30 01/10/25 01/17/25 10:47 10:23 Wound Center Nurse 2 #9 coccyx -Time 10:47 10:24 -Correct Patient Yes Yes -Correct Side, Site, Position Yes Yes -Correct Procedure Yes Yes -Procedure Performed Yes Yes -Type of Procedure Debridement Debridement -Clinical Debridement Subcutaneous Subcutaneous -Tissue Removed Subcutaneous Subcutaneous -Post Debridement (cm) - Length 0.5 0.7 -Post Debridement (cm) - Width 0.9 0.5 -Post Debridement (cm) - Depth 0.6 0.4 -Total Square (Post) (cm) 0.45 0.35 -Area of Debridement (cm) - Length 0.5 0.7 -Area of Debridement (cm) - Width 0.9 0.5 -Total Square (Area) (cm) 0.45 0.35 -Tunneling No No -Undermining/Tunneling Yes Yes -Undermining/Tunneling Starts (O'clock 11 11 ) -Undermining/Tunneling Ends (O'clock) 2 2 -Maximum Distance (cm) 0.6 0.5 -Circular Undermining No No -Wound/Ulcer Outcome Not Healed Not Healed -Ulcer Cleansing Rinsed/ Rinsed/ Irrigated with Irrigated with Saline Saline -Foul Odor after Cleansing No No -Bioengineered Tissue No No -Bleeding Controlled with Pressure Pressure -Treatment Response Procedure Procedure Tolerated Well Tolerated Well -Offloading No No -Debridement - Subq, 1st 20sq cm Yes Yes Pain Scale: 0-10 Numeric Is Patient Pain Free? Yes Yes - Nurse 3 - General Ulcer D/C NN Start: 01/10/25 10:34 Freq: Status: Active Protocol: Activity Type Activity Date Activity User E-sign Co-sign Detail Recorded Client Recorded Date Recorded By Document 01/10/25 10:58 [id number] 01/10/25 11:00 CP 01/10/25 10:58 Wound Care Center Nurse 3 #9 coccyx -Ulcer Cleansing Rinsed/ Irrigated with Saline -Foul Odor after Cleansing No -Primary Dressing Applied Promogran, Silicone Border Foam 4x4 -Other Dressing adaptic -Promogran 1 -Silicone Border Foam 4x4 1 Pain Scale: 0-10 Numeric Is Patient Pain Free? Yes WC - Visit Discharge Discharge Condition Stable Ambulatory Status Wheelchair Transportation Private Auto Clinical Summary of Care Provided Yes Assessment/Plan Assessment/Plan (1) Pressure ulcer of sacral region, stage 3: CODE(S): L89.153 - Pressure ulcer of sacral region, stage 3 (2) Spina bifida: CODE(S): Q05.9 - Spina bifida, unspecified PLAN: Plan Debridement done as documented above, procedure was well-tolerated. Improving. No new concerns reported or noted at this time. Continue Fibracol, cover with Adaptic and foam dressing. Change dressing daily or when soiled. Continue offloading and reposition often. Optimal protein intake. Their questions were answered and they were advised to let us know if they had any further questions or concerns. Follow-up in a week or sooner if needed. This note was generated with Brainlyation software. It may contain incorrectwords, spelling, and punctuation that were not noted in checking the note beforesigning. 01/17/25 5620 <Electronically signed by Savannah Kinney MD> Cosigner Signature (if applicable): CC: ~ Signed [facility] Work Phone: [phone]) 937-678708-14-2025 Progress note [facility] [address] [place] [address] Progress Note - Wound Care 01/17/25 1037 MR#: [id number] Acct: [id number] Name: JULIETTE CREWS RAI Rep #:[id number] : 1975 49 From: Savannah neri MD PCP: Kassie Polanco NP-C Status:REG R CR Location: History of Present Illness Date of Service: 01/17/25 Chief Complaint: Sacral/Coccyx Ulcer History of Wound: Ms. Crews is a 49-year-old well-known to me. Recently discharged following healingof decubitus ulcers however, presents with a new sacral area ulcer. Said to have opened on Tuesday. 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 Had been off due to previous decubitus ulcers. Tuesday, new area of opening was noted. No chills, fever or feeling of unwell. Appetite is good. Progress of Wound: Switched to Fibracol at her last visit due to [facility] restrictions and state laws. Caregiver states that dressing changes have been done consistently and noconcerns reported at this time. Objective Data Objective Data Vital Signs: Vital Signs Temp Pulse Resp BP O2 Del Method 96.4 F L 100 18 139/83 H Room Air 01/17/25 10:03 01/17/25 10:03 01/17/25 10:03 01/17/25 10:03 01/17/25 10:03 Oxygen Delivery Method Room Air Charges/Coding Procedures Integumentary 111xxx-113xx: 97834 Sherlyn subq tissue 20 sq cm/< Physical Exam Const alert, oriented x3 and no apparent distress General Appearance: cooperative and well kempt HEENT normocephalic and hearing grossly normal bilaterally Head and Scalp: normal to inspection and atraumatic Neck full ROM and supple Resp normal respiratory effort and normal air movement Effort and Inspection: able to speak in complete sentences Skin Wounds: wounds noted size Size: See clinical note, bed granulating well and withslough, no odor, open and surrounding erythema Neuro oriented x3 and CN's II-XII intact bilaterally Psych mental status grossly normal, cooperative and affect normal Appearance: grossly normal Attitude: calm Speech: normal speech Debridement Note Debridement Note Wound debrided: Sacrum Wound Grade/Stage: Stage III Type of Debridement: Excisional debridement Anesthesia Used: 5% Lidocaine Gel Depth: Down to and including healthy tissue and in the subcutaneous layer Percentage of wound debrided: 100 Instrument Used: 3mm curette Tissue Removed: Slough and devitalized tissue Severity: Fat Layer Exposed Amount of bleeding with debridement: Mild Bleeding Controlled with: Pressure Patient tolerated procedure: Patient tolerated procedure well Post-Debridement Measurements and Additional Note: Post-Debridement Measurements/Treatment - Nurse 1 - General Ulcer Assessment Start: 01/10/25 10:34 Freq: Status: Active Protocol: [email or web address].[email or web address] Activity Type Activity Date Activity User E-sign Co-sign Detail Recorded Client Recorded Date Recorded By Document 01/10/25 10:34 CP [id number] 01/10/25 10:39 CP Document 01/17/25 10:03 DS [id number] 01/17/25 10:05 DS 01/10/25 01/17/25 10:34 10:03 - Today's Visit Information Type of service Follow-up Visit 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 (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 ) ) Arrival Mode Wheelchair Wheelchair Transfer Assistance Manual Manual Transfer Assist (Other) 2 Accompanied by aides Patient Identification Verified (Name & Yes Yes ) Vital Signs Temperature (97.8 F-99.1 F) 97 F L 96.4 F L Temperature Source Temporal Temporal Pulse Rate (60-100) 92 100 Pulse Location Monitor Monitor Respiratory Rate (12-18) 16 18 Respiratory rate source Observation Observation Oxygen Delivery Method Room Air Blood Pressure (90/60-120/80) 122/85 H 139/83 H Blood Pressure Mean (mm Hg) 97 101 Source Monitor Monitor Position Semi-Fowlers Semi-Fowlers Blood Pressure Location Left Forearm Left Forearm History Since Last Visit- (Skip if this is Patient's initial visit) Have you changed medications since your No No last visit? Any new allergies or adverse reactions No No Had a fall/change in ADL's that may No No increase risk of falls Signs or symptoms of abuse and/or No No neglect since last visit Have you been in the hospital since your No No last visit? Has dressing in place as prescribed Yes Yes Has compression in place as prescribed N/A N/A Has offloadiing in place as prescribed N/A N/A Experienced any changes in pain level or No No management Pain Scale: 0-10 Numeric Is Patient Pain Free? Yes Yes - Nurse 1 - General Ulcer Measurement Start: 01/10/25 10:34 Freq: Status: Active Protocol: Activity Type Activity Date Activity User E-sign Co-sign Detail Recorded Client Recorded Date Recorded By Document 01/10/25 10:34 CP [id number] 01/10/25 10:39 CP Document 01/17/25 10:05 DS [id number] 01/17/25 10:13 DS 01/10/25 01/17/25 10:34 10:05 Wound Center Nurse 1 #9 coccyx -Current Size (cm) - Length 0.7 0.9 -Current Size (cm) - Width 0.5 1.2 -Current Size (cm) - Depth 0.3 0.2 -Total Square Cm 0.35 1.08 -Date of Last Picture (Recall this 01/17/25 field) -Photo Taken Yes Yes -Tunneling No -Undermining/Tunneling No -Circular Undermining No -Exudate Amt Medium Small -Exudate Type Serosanguineous Serosanguineous -Wound Margin Flat & Intact Distinct, Outline Attached -Granulation Amt Large (67-100%) Small (1-33%) -Granulation Quality [place] -Slough/Fibrin No -Necrosis Amt Medium (34-66%) -Necrotic Tissue Type Adherent Slough -Structure Exposed N/A -Texture (Patience-wound Skin Appearance) No Abnormality Assessed -Moisture (Patience-wound Skin Appearance) No Abnormality Assessed -Color (Patience-wound Skin Appearance) No Abnormality Assessed -Temperature (Patience-wound Skin No Abnormality No Abnormality Appearance) (Pt Warm) (Pt Warm) -Tenderness on Palpation (Patience-wound No No Skin Appearance) -Ulcer Cleansing Soap and Water Soap and Water -Foul Odor after Cleansing No No -Anesthetic Used 5% Lidocaine 5% Lidocaine Gel Gel JESSICA - Nurse 2 - General Ulcer CM Notes Start: 01/10/25 10:34 Freq: Status: Active Protocol: Activity Type Activity Date Activity User E-sign Co-sign Detail Recorded Client Recorded Date Recorded By Document 01/10/25 10:47 [id number] 01/10/25 10:53 Document 01/17/25 10:23 [id number] 01/17/25 10:30 01/10/25 01/17/25 10:47 10:23 Wound Center Nurse 2 #9 coccyx -Time 10:47 10:24 -Correct Patient Yes Yes -Correct Side, Site, Position Yes Yes -Correct Procedure Yes Yes -Procedure Performed Yes Yes -Type of Procedure Debridement Debridement -Clinical Debridement Subcutaneous Subcutaneous -Tissue Removed Subcutaneous Subcutaneous -Post Debridement (cm) - Length 0.5 0.7 -Post Debridement (cm) - Width 0.9 0.5 -Post Debridement (cm) - Depth 0.6 0.4 -Total Square (Post) (cm) 0.45 0.35 -Area of Debridement (cm) - Length 0.5 0.7 -Area of Debridement (cm) - Width 0.9 0.5 -Total Square (Area) (cm) 0.45 0.35 -Tunneling No No -Undermining/Tunneling Yes Yes -Undermining/Tunneling Starts (O'clock 11 11 ) -Undermining/Tunneling Ends (O'clock) 2 2 -Maximum Distance (cm) 0.6 0.5 -Circular Undermining No No -Wound/Ulcer Outcome Not Healed Not Healed -Ulcer Cleansing Rinsed/ Rinsed/ Irrigated with Irrigated with Saline Saline -Foul Odor after Cleansing No No -Bioengineered Tissue No No -Bleeding Controlled with Pressure Pressure -Treatment Response Procedure Procedure Tolerated Well Tolerated Well -Offloading No No -Debridement - Subq, 1st 20sq cm Yes Yes Pain Scale: 0-10 Numeric Is Patient Pain Free? Yes Yes - Nurse 3 - General Ulcer D/C NN Start: 01/10/25 10:34 Freq: Status: Active Protocol: Activity Type Activity Date Activity User E-sign Co-sign Detail Recorded Client Recorded Date Recorded By Document 01/10/25 10:58 [id number] 01/10/25 11:00 01/10/25 10:58 Wound Care Center Nurse 3 #9 coccyx -Ulcer Cleansing Rinsed/ Irrigated with Saline -Foul Odor after Cleansing No -Primary Dressing Applied Promogran, Silicone Border Foam 4x4 -Other Dressing adaptic -Promogran 1 -Silicone Border Foam 4x4 1 Pain Scale: 0-10 Numeric Is Patient Pain Free? Yes - Visit Discharge Discharge Condition Stable Ambulatory Status Wheelchair Transportation Private Auto Clinical Summary of Care Provided Yes Assessment/Plan Assessment/Plan (1) Pressure ulcer of sacral region, stage 3: CODE(S): L89.153 - Pressure ulcer of sacral region, stage 3 (2) Spina bifida: CODE(S): Q05.9 - Spina bifida, unspecified PLAN: Plan Debridement done as documented above, procedure was well-tolerated. Improving. No new concerns reported or noted at this time. Continue Fibracol, cover with Adaptic and foam dressing. Change dressingdaily or when soiled. Continue offloading and reposition often. Optimal protein intake. Their questions were answered and they were advised to let us know if they had any further questions or concerns. Follow-up in a week or sooner if needed. This note was generated with Brainlyation software. It may contain incorrectwords, spelling, and punctuation that were not noted in checking the note beforesigning. 01/17/25 1129 Cosigner Signature (if applicable): CC: ~ Signed [facility]08-13-2025 Radiology Diagnostic study note [facility] [address] [place], [place] [id number] Abdomen/Pelvis without Cont MR#: [id number] Acct: [id number] Name: JULIETTE CREWS RAI Rep #: [id number] : 1975 F 49 From: Rebecca Newman MD PCP: Kassie Polanco HUMAN RESOURCES TRAINING MANAGER-C Status: REG C LI Study:Abdomen/Pelvis without Cont Date of Exa m: 01/15/25 Exam# [id number] Ordering Dr: Cristobal Hernandez MD PROCEDURE: ABDOMEN/PELVIS WITHOUT CONT 01/15/2025 REASON FOR EXAM: FREQUENCY OF MICTURITION TECHNIQUE: ABDOMEN/PELVIS WITHOUT CONT Noncontrast technique limits evaluation of the abdominal and pelvic viscera. Coronal and Sagittal reconstruction series were provided. One or more dose reduction techniques were used (e.g., Automated exposure control, adjustment of the mA and/or kV according to patient size, use of iterative reconstruction technique). RADIATION DOSE SUMMARY: CTDlvol: 15 mGy DLP: 696 mGycm COMPARISON: 10/12/2021 FINDINGS: Severe scoliosis. Thoracic cage deformity. Clear lung bases. Normal heart size. Status post cholecystectomy. Unremarkable liver, pancreas, spleen, adrenal glands, kidneys. No hydronephrosis or ureteral stone. Suprapubic catheter tip in bladder lumen. Normal uterus. No retroperitoneal or pelvic adenopathy. There is a lower pelvic mass or cyst, series 2, image 119,measuring 1.8 x 2.3 cm, nonspecific but favoring benign etiology. No free air. Distal end of ACCOUNT SERVICES REPRESENTATIVE shunt tip terminates in theperitoneal cavity. Nonobstructed bowel.. Status post appendectomy. No acute large bowel findings. Extensive thoracic lumbar scoliosis status post spinal rhonda placement. Muscle wasting. Bilateral hipjoint deformity. Sacral hypoplasia. CT/Abdomen/Pelvis without Cont IMPRESSION: No acute abdominopelvic findings. Reading Location: [place] [address] CC: HUMAN RESOURCES TRAINING MANAGER-C Kassie Polanco; Dr. Enzo Hernandez MD ~ Museum Registrar: Signed [facility]08-07-2025 Progress note Author Savannah Kinney [facility] Note Date/Time January 10, 2025 5:3 5pm [facility] [address] [place] [address] Progress Note - Wound Care 01/10/25 1127 MR#: [id number] Acct: [id number] Name: JULIETTE CREWS RAI Rep #:[id number] : 1975 49 From: Savannah neri MD PCP: ADAN Joseph Status:REG R CR Location: History of Present Illness Date of Service: 01/10/25 Chief Complaint: Sacral/Coccyx Ulcer History of Wound: Ms. Crews is a 49-year-old well-known to me. Recently discharged following healing of decubitus ulcers however, presents with a new sacral area ulcer. Said to have opened on Tuesday. 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 Had been off due to previous decubitus ulcers. Tuesday, new area of opening was noted. No chills, fever or feeling of unwell. Appetite is good. Progress of Wound: Concerns with dressing changes due to [facility] restrictions and state mandate. [facility] staff is unable to do dressing changes because Promogran is listed as a debriding agent which they cannot apply. Her sister has been having to come in for dressing changes. Otherwise, no acute concerns reported at this time. Cultures from last visit with no growth. Has a few more days of cefdinirfor cellulitis. Objective Data Objective Data Vital Signs: Vital Signs Temp Pulse Resp BP 97 F L 92 16 122/85 H 01/10/25 10:34 01/10/25 10:34 01/10/25 10:34 01/10/25 10:34 Charges/Coding Procedures Integumentary 111xxx-113xx: 08310 Sherlyn subq tissue 20 sq cm/< Physical Exam Const alert, oriented x3 and no apparent distress General Appearance: cooperative and well kempt HEENT normocephalic and hearing grossly normal bilaterally Head and Scalp: normal to inspection and atraumatic Neck full ROM and supple Resp normal respiratory effort and normal air movement Effort and Inspection: able to speak in complete sentences Skin Wounds: wounds noted size Size: See clinical note, bed granulating well and withslough, no odor, open and surrounding erythema Neuro oriented x3 and CN's II-XII intact bilaterally Psych mental status grossly normal, cooperative and affect normal Appearance: grossly normal Attitude: calm Speech: normal speech Debridement Note Debridement Note Wound debrided: Sacrum Wound Grade/Stage: Stage III Type of Debridement: Excisional debridement Anesthesia Used: 5% Lidocaine Gel Depth: Down to and including healthy tissue and in the subcutaneous layer Percentage of wound debrided: 100 Instrument Used: 3mm curette Tissue Removed: Slough and devitalized tissue Severity: Fat Layer Exposed Amount of bleeding with debridement: Mild Bleeding Controlled with: Pressure Patient tolerated procedure: Patient tolerated procedure well Post-Debridement Measurements and Additional Note: Post-Debridement Measurements/Treatment - Nurse 1 - General Ulcer Assessment Start: 01/10/25 10:34 Freq: Status: Active Protocol: TOBIN Activity Type Activity Date Activity User E-sign Co-sign Detail Recorded Client Recorded Date Recorded By Document 01/10/25 10:34 HAROON [id number] 01/10/25 10:39 CP 01/10/25 10:34 - Today's Visit Information Type of service 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 Any new allergies or adverse reactions No Had a fall/change in ADL's that may No increase risk of falls Signs or symptoms of abuse and/or No neglect since last visit Have you been in the hospital since your No last visit? Has dressing in place as prescribed Yes Has compression in place as prescribed N/A Has offloadiing in place as prescribed N/A Experienced any changes in pain level or No management Pain Scale: 0-10 Numeric Is Patient Pain Free? Yes WC - Nurse 1 - General Ulcer Measurement Start: 01/10/25 10:34 Freq: Status: Active Protocol: Activity Type Activity Date Activity User E-sign Co-sign Detail Recorded Client Recorded Date Recorded By Document 01/10/25 10:34 CP [id number] 01/10/25 10:39 CP 01/10/25 10:34 Wound Center Nurse 1 #9 coccyx -Current Size (cm) - Length 0.7 -Current Size (cm) - Width 0.5 -Current Size (cm) - Depth 0.3 -Total Square Cm 0.35 -Photo Taken Yes -Exudate Amt Medium -Exudate Type Serosanguineous -Wound Margin Flat & Intact -Granulation Amt Large (67-100%) -Granulation Quality [place] -Slough/Fibrin No -Structure Exposed N/A -Texture (Patience-wound Skin Appearance) No Abnormality -Moisture (Patience-wound Skin Appearance) No Abnormality -Color (Patience-wound Skin Appearance) No Abnormality -Temperature (Patience-wound Skin No Abnormality Appearance) (Pt Warm) -Tenderness on Palpation (Ptaience-wound No Skin Appearance) -Ulcer Cleansing Soap and Water -Foul Odor after Cleansing No -Anesthetic Used 5% Lidocaine Gel WC - Nurse 2 - General Ulcer CM Notes Start: 01/10/25 10:34 Freq: Status: Active Protocol: Activity Type Activity Date Activity User E-sign Co-sign Detail Recorded Client Recorded Date Recorded By Document 01/10/25 10:47 [id number] 01/10/25 10:53 01/10/25 10:47 Wound Center Nurse 2 -Time 10:47 -Correct Patient Yes -Correct Side, Site, Position Yes -Correct Procedure Yes -Procedure Performed Yes -Type of Procedure Debridement -Clinical Debridement Subcutaneous -Tissue Removed Subcutaneous -Post Debridement (cm) - Length 0.5 -Post Debridement (cm) - Width 0.9 -Post Debridement (cm) - Depth 0.6 -Total Square (Post) (cm) 0.45 -Area of Debridement (cm) - Length 0.5 -Area of Debridement (cm) - Width 0.9 -Total Square (Area) (cm) 0.45 -Tunneling No -Undermining/Tunneling Yes -Undermining/Tunneling Starts (O'clock 11 ) -Undermining/Tunneling Ends (O'clock) 2 -Maximum Distance (cm) 0.6 -Circular Undermining No -Wound/Ulcer Outcome Not Healed -Ulcer Cleansing Rinsed/ Irrigated with Saline -Foul Odor after Cleansing No -Bioengineered Tissue No -Bleeding Controlled with Pressure -Treatment Response Procedure Tolerated Well -Offloading No -Debridement - Subq, 1st 20sq cm Yes Pain Scale: 0-10 Numeric Is Patient Pain Free? Yes - Nurse 3 - General Ulcer D/C NN Start: 01/10/25 10:34 Freq: Status: Active Protocol: Activity Type Activity Date Activity User E-sign Co-sign Detail Recorded Client Recorded Date Recorded By Document 01/10/25 10:58 [id number] 01/10/25 11:00 01/10/25 10:58 Wound Care Center Nurse 3 #9 coccyx -Ulcer Cleansing Rinsed/ Irrigated with Saline -Foul Odor after Cleansing No -Primary Dressing Applied Promogran, Silicone Border Foam 4x4 -Other Dressing adaptic -Promogran 1 -Silicone Border Foam 4x4 1 Pain Scale: 0-10 Numeric Is Patient Pain Free? Yes - Visit Discharge Discharge Condition Stable Ambulatory Status Wheelchair Transportation Private Auto Clinical Summary of Care Provided Yes Assessment/Plan Assessment/Plan (1) Pressure ulcer of sacral region, stage 3: CODE(S): L89.153 - Pressure ulcer of sacral region, stage 3 (2) Spina bifida: CODE(S): Q05.9 - Spina bifida, unspecified PLAN: Plan Debridement done as documented above, procedure was well-tolerated. Some improvement noted. Area of erythema noted at last visit has improved/resolved. New undermining however appreciated. Due to restrictions at the [facility] we will switch from Promogran to Fibracol. This is not classified as a debriding agent. Cover with Adaptic and foam dressing. Currently applying bacitracin which is an old order that she had, they were advised that they reach out to herprescribing practitioner and to have this discontinued. Change dressing when soiled. Complete cefdinir. Continue offloading and reposition often. Optimalprotein intake. Their questions were answered and they were advised to let us know if they had any further questions or concerns. Follow-up in a week or sooner if needed. This note was generated with Brainlyation software. It may contain incorrectwords, spelling, and punctuation that were not noted in checking the note beforesigning. 01/10/25 7008 <Electronically signed by Savannah Kinney MD> Cosigner Signature (if applicable): CC: ~ Signed [facility] Work Phone: [phone] [phone] Progress note [facility] [address] [place] [id number] Progress Note - Wound Care 01/10/25 1127 MR#: [id number] Acct: [id number] Name: JULIETTE CREWS RAI Rep #:[id number] : 1975 49 From: Savannah neri MD PCP: ADAN Joseph Status:REG R CR Location: History of Present Illness Date of Service: 01/10/25 Chief Complaint: Sacral/Coccyx Ulcer History of Wound: Ms. Crews is a 49-year-old well-known to me. Recently discharged following healingof decubitus ulcers however, presents with a new sacral area ulcer. Said to have opened on Tuesday. 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 Had been off due to previous decubitus ulcers. Tuesday, new area of opening was noted. No chills, fever or feeling of unwell. Appetite is good. Progress of Wound: Concerns with dressing changes due to [facility] restrictions and state mandate. [facility] staff is unable to do dressing changes because Promogran is listed as a debriding agent which they cannotapply. Her sister has been having to come in for dressing changes. Otherwise, no acute concerns reported at this time. Cultures from last visit with no growth. Has a few more days of cefdinirfor cellulitis. Objective Data Objective Data Vital Signs: Vital Signs Temp Pulse Resp BP 97 F L 92 16 122/85 H 01/10/25 10:34 01/10/25 10:34 01/10/25 10:34 01/10/25 10:34 Charges/Coding Procedures Integumentary 111xxx-113xx: [id number] Sherlyn subq tissue 20 sq cm/< Physical Exam Const alert, oriented x3 and no apparent distress General Appearance: cooperative and well kempt HEENT normocephalic and hearing grossly normal bilaterally Head and Scalp: normal to inspection and atraumatic Neck full ROM and supple Resp normal respiratory effort and normal air movement Effort and Inspection: able to speak in complete sentences Skin Wounds: wounds noted size Size: See clinical note, bed granulating well and withslough, no odor, open and surrounding erythema Neuro oriented x3 and CN's II-XII intact bilaterally Psych mental status grossly normal, cooperative and affect normal Appearance: grossly normal Attitude: calm Speech: normal speech Debridement Note Debridement Note Wound debrided: Sacrum Wound Grade/Stage: Stage III Type of Debridement: Excisional debridement Anesthesia Used: 5% Lidocaine Gel Depth: Down to and including healthy tissue and in the subcutaneous layer Percentage of wound debrided: 100 Instrument Used: 3mm curette Tissue Removed: Slough and devitalized tissue Severity: Fat Layer Exposed Amount of bleeding with debridement: Mild Bleeding Controlled with: Pressure Patient tolerated procedure: Patient tolerated procedure well Post-Debridement Measurements and Additional Note: Post-Debridement Measurements/Treatment - Nurse 1 - General Ulcer Assessment Start: 01/10/25 10:34 Freq: Status: Active Protocol: TOBIN Activity Type Activity Date Activity User E-sign Co-sign Detail Recorded Client Recorded Date Recorded By Document 01/10/25 10:34 [email or web address] [id number] 01/10/25 10:39 CP 01/10/25 10:34 JESSICA - Today's Visit Information Type of service 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 Any new allergies or adverse reactions No Had a fall/change in ADL's that may No increase risk of falls Signs or symptoms of abuse and/or No neglect since last visit Have you been in the hospital since your No last visit? Has dressing in place as prescribed Yes Has compression in place as prescribed N/A Has offloadiing in place as prescribed N/A Experienced any changes in pain level or No management Pain Scale: 0-10 Numeric Is Patient Pain Free? Yes - Nurse 1 - General Ulcer Measurement Start: 01/10/25 10:34 Freq: Status: Active Protocol: Activity Type Activity Date Activity User E-sign Co-sign Detail Recorded Client Recorded Date Recorded By Document 01/10/25 10:34 CP [id number] 01/10/25 10:39 CP 01/10/25 10:34 Wound Center Nurse 1 #9 coccyx -Current Size (cm) - Length 0.7 -Current Size (cm) - Width 0.5 -Current Size (cm) - Depth 0.3 -Total Square Cm 0.35 -Photo Taken Yes -Exudate Amt Medium -Exudate Type Serosanguineous -Wound Margin Flat & Intact -Granulation Amt Large (67-100%) -Granulation Quality [place] -Slough/Fibrin No -Structure Exposed N/A -Texture (Patience-wound Skin Appearance) No Abnormality -Moisture (Patience-wound Skin Appearance) No Abnormality -Color (Patience-wound Skin Appearance) No Abnormality -Temperature (Patience-wound Skin No Abnormality Appearance) (Pt Warm) -Tenderness on Palpation (Patience-wound No Skin Appearance) -Ulcer Cleansing Soap and Water -Foul Odor after Cleansing No -Anesthetic Used 5% Lidocaine Gel JESSICA - Nurse 2 - General Ulcer CM Notes Start: 01/10/25 10:34 Freq: Status: Active Protocol: Activity Type Activity Date Activity User E-sign Co-sign Detail Recorded Client Recorded Date Recorded By Document 01/10/25 10:47 [id number] 01/10/25 10:53 01/10/25 10:47 Wound Center Nurse 2 -Time 10:47 -Correct Patient Yes -Correct Side, Site, Position Yes -Correct Procedure Yes -Procedure Performed Yes -Type of Procedure Debridement -Clinical Debridement Subcutaneous -Tissue Removed Subcutaneous -Post Debridement (cm) - Length 0.5 -Post Debridement (cm) - Width 0.9 -Post Debridement (cm) - Depth 0.6 -Total Square (Post) (cm) 0.45 -Area of Debridement (cm) - Length 0.5 -Area of Debridement (cm) - Width 0.9 -Total Square (Area) (cm) 0.45 -Tunneling No -Undermining/Tunneling Yes -Undermining/Tunneling Starts (O'clock 11 ) -Undermining/Tunneling Ends (O'clock) 2 -Maximum Distance (cm) 0.6 -Circular Undermining No -Wound/Ulcer Outcome Not Healed -Ulcer Cleansing Rinsed/ Irrigated with Saline -Foul Odor after Cleansing No -Bioengineered Tissue No -Bleeding Controlled with Pressure -Treatment Response Procedure Tolerated Well -Offloading No -Debridement - Subq, 1st 20sq cm Yes Pain Scale: 0-10 Numeric Is Patient Pain Free? Yes - Nurse 3 - General Ulcer D/C NN Start: 01/10/25 10:34 Freq: Status: Active Protocol: Activity Type Activity Date Activity User E-sign Co-sign Detail Recorded Client Recorded Date Recorded By Document 01/10/25 10:58 [id number] 01/10/25 11:00 01/10/25 10:58 Wound Care Center Nurse 3 #9 coccyx -Ulcer Cleansing Rinsed/ Irrigated with Saline -Foul Odor after Cleansing No -Primary Dressing Applied Promogran, Silicone Border Foam 4x4 -Other Dressing adaptic -Promogran 1 -Silicone Border Foam 4x4 1 Pain Scale: 0-10 Numeric Is Patient Pain Free? Yes WC - Visit Discharge Discharge Condition Stable Ambulatory Status Wheelchair Transportation Private Auto Clinical Summary of Care Provided Yes Assessment/Plan Assessment/Plan (1) Pressure ulcer of sacral region, stage 3: CODE(S): L89.153 - Pressure ulcer of sacral region, stage 3 (2) Spina bifida: CODE(S): Q05.9 - Spina bifida, unspecified PLAN: Plan Debridement done as documented above, procedure was well-tolerated. Some improvement noted. Area oferythema noted at last visit has improved/resolved. New undermining however appreciated. Due to restrictions at the [facility] we will switch from Promogran to Fibracol. This is not classified as a debriding agent. Cover with Adaptic and foam dressing. Currently applying bacitracin which is an oldorder that she had, they were advised that they reach out to herprescribing practitioner and to have this discontinued. Change dressing when soiled. Complete cefdinir. Continue offloading and reposition often. Optimalprotein intake. Their questions were answered and they were advised to let us knowif they had any further questions or concerns. Follow-up in a week or sooner if needed. This note was generated with Klutch dictation software. It may contain incorrectwords, spelling, and punctuation that were not noted in checking the note beforesigning. 01/10/25 1735 Cosigner Signature (if applicable): CC: ~ Signed [facility]07-31-2025 History and physical note Author Savannah Kinney [facility] Note Date/Time January 03, 2025 5:[address] [facility] [address] [place] [id number] H&P Exam - Wound Care 01/03/25 0925 MR#: [id number] Acct: [id number] Name: JULIETTE CREWS RAI Rep #:[id number] : 1975 49 From: Savannah neri MD PCP: Kassie Polanco NP-Martell Status:REG R CR Location: History of Present Illness Date of Service: 01/03/25 Chief Complaint: Sacral/Coccyx Ulcer History of Wound: Ms. Crews is a 49-year-old well-known to me. Recently discharged following healing of decubitus ulcers however, presents with a new sacral area ulcer. Said to have opened on Tuesday. 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 Had been off due to previous decubitus ulcers. Ajiro, new area of opening was noted. No chills, fever or feeling of unwell. Appetite is good. [facility] Medical History Decubitus ulcer of right buttock, stage 3 Decubitus ulcer of left buttock, stage 3 UTI (urinary tract infection) GI problem Kidney stone Seasonal allergies Wears glasses Depression Uses wheelchair History of urinary self-catheterization Back pain Constipation Gastric reflux Non-smoker BiPAP (biphasic positive airway pressure) dependence Asthma History of edema History of echocardiogram Hx of back injury Acquired scoliosis Spina bifida Home Medications ?Medication ?Instructions ?Recorded ?Last Taken ?Type multivitamin with folic acid 400 1 tab PO QHS general health 04/24/13 09/25/20 17:30 History mcg tablet (Thera) omeprazole 20 mg capsule,delayed 20 mg PO QHS acid ref lux 03/11/18 09/25/20 17:30 History release aspirin 81 mg chewable tablet 81 mg PO DAILY@0800 1002/2111/02/21 Rx potassium citrate 15 mEq (1,620 15 meq PO BID ##60 09/25/20 17:30 Rx mg) tablet,extended release Bacillus coagulans 10 billion cell 1 each PO QHS IMMUN E HEALTH 09/11/20 09/25/20 17:30 History capsule,delayed release polyethylene glycol 3350 17 gram 17 gm PO DAILY PRN KS N Constipation 09/14/20 09/25/20 17:30 History oral powder packet budesonide 0.25 mg/2 mL suspension 0.25 mg inhalation BID 10/28/21 Unknown History for nebulization bisacodyl 5 mg tablet 5 mg PO .once weekly 5 Unknown History docusate sodium 100 mg tablet 100 mg PO BID 08/21/24 U nknown History (Stool Softener) loratadine 10 mg tablet 10 mg PO QDAY 08/21/24 Unkno wn History mineral oil (Fleet Mineral Oil 118 ml KS .QTUFR Unknown History enema) mupirocin calcium 2 % topical cream 1 applic topical B ID 08/21/24 Unknown History ondansetron HCl 4 mg tablet 4 mg PO .COMPLEX #10 tabs 08/21/24 Unknown Rx oxybutynin chloride 15 mg 5 mg PO TID BLADDER 08/21/24 Unknown History tablet,extended release 24 hr peg 3350-electrolytes 236 240 ml PO Q10M #4,000 mL Unknown Rx gram-22.74 gram-6.74 gram-5.86 gram solution (Golytely) psyllium husk 0.52 gram capsule 0.52 g PO QDAY 5 Unknown History (Fiber Laxative (psyllium husk)) sertraline 50 mg tablet 50 mg PO QDAY 08/21/24 Unkno wn History amoxicillin 500 mg-potassium 1 tab PO BID #14 tabs Unknown Rx clavulanate 125 mg tablet (Augmentin) sulfamethoxazole 800 1 tab PO BID #14 tabs Unknown Rx mg-trimethoprim 160 mg tablet (Bactrim DS) lubiprostone 24 mcg capsule 24 mcg PO BID constipation #60 caps 12/08/24 Unknown Rx (Amitiza) cefdinir 300 mg capsule 300 mg PO BID #20 caps 01/03 Unknown Rx Allergy/AdvReac Type Severity Reaction Status Date / Time amoxicillin (From Augmentin) AdvReac Diarrhea Verified 11/04/21 13:39 azithromycin (From Zithromax AdvReac Diarrhea Verified 11/04/21 13:39 Z-Turner) ciprofloxacin (From Cipro) AdvReac Pain in Verified 11/04/21 13:39 joints clavulanic acid (From AdvReac Diarrhea Verified 11/04/21 13:39 Augmentin) Surgical History History of incision and drainage Hx of eye surgery Hx of ileostomy History of brain shunt History of cystoscopy Hx of cholecystectomy Social History Smoking Status: Never smoker ROS Constitutional Constitutional: Denies body ache(s), change in weight, frequent falls, headache(s), increased appetite, poor appetite or snoring Eyes Eyes: Denies change in vision, decreased night vision, discharge from eye(s), exophthalmos, halo effect, itchy eyes, loss of central vision or loss of peripheral vision ENT HEENT: Denies dysphagia, ear discharge, facial pain, halitosis, headache(s), nasal congestion or nasal obstruction Cardiovascular Cardiovascular: Denies clubbing, cyanosis, diaphoresis, dyspnea at rest, dyspneaon exertion, easily tiring during activity or erythema on extremities Respiratory/Chest Respiratory/Chest: Denies dyspnea, dyspnea on exertion, hemoptysis, hoarseness, inability to speak, nail bed cyanosis or patience-oral cyanosis Gastrointestinal Gastrointestinal: Denies chewing difficulty, coffee ground emesis, constipation,cramping, diarrhea, dry heaves or dyspepsia Genitourinary Genitourinary: Denies abdominal discomfort, anuria, burning urination, difficulty urinating, dysuria or genital lesions Musculoskeletal Musculoskeletal: Denies joint stiffness, joint swelling, loss of height, muscle cramps, muscle spasms or muscle weakness Integumentary Integumentary: Denies erythema, furuncle, hirsutism, jaundice, lesions, nail changes or new lesions Neurologic Neurologic: Denies burning sensations, confusion, convulsions, disequilibrium, dizziness, focal weakness or frequent falls Psychiatric Psychiatric: Denies change in appetite, confusion, depression, difficulty concentrating, hallucinations, homicidal ideation or hopelessness Endocrine Endocrinology: Denies deepening of the voice, flushing, heat intolerance, palpitations, polydipsia, polyphagia or polyuria Allergic/Immunologic Allergic/Immunologic: Denies lip swelling, seasonal rhinorrhea, tongue swelling,hives, urticaria, eczemia or wheezing Vital Signs Vital Signs Vital Signs: 01/03/25 08:22 Temperature 97.1 F L Temperature Source Temporal Pulse Rate 106 H Respiratory Rate 18 Blood Pressure 117/76 Blood Pressure Mean 89 Blood Pressure Source Monitor Blood Pressure Position Semi-Fowlers Blood Pressure Location Right Arm Oxygen Delivery Method Room Air Physical Exam Const alert, oriented x3 and no apparent distress General Appearance: cooperative and well kempt HEENT normocephalic and hearing grossly normal bilaterally Head and Scalp: normal to inspection and atraumatic Neck full ROM and supple Resp normal respiratory effort Effort and Inspection: able to speak in complete sentences Skin Wounds: wounds noted size Size: See clinical note, bed with slough, no odor, open and surrounding erythema Neuro oriented x3 and CN's II-XII intact bilaterally Psych mental status grossly normal, cooperative and affect normal Appearance: grossly normal Attitude: calm Speech: normal speech Debridement Note Debridement Note Wound debrided: Sacrum Wound Grade/Stage: Stage III Type of Debridement: Excisional debridement Anesthesia Used: 5% Lidocaine Gel Depth: Down to and including healthy tissue and in the subcutaneous layer Percentage of wound debrided: 100 Instrument Used: 3mm curette Tissue Removed: Slough and devitalized tissue Severity: Fat Layer Exposed Amount of bleeding with debridement: Mild Bleeding Controlled with: Pressure Patient tolerated procedure: Patient did not tolerate procedure well Post-Debridement Measurements and Additional Note: Post-Debridement Measurements/Treatment JESSICA - Nurse 1 - General Ulcer Assessment Start: 01/03/25 08:21 Freq: Status: Active Protocol: TOBIN Activity Type Activity Date Activity User E-sign Co-sign Detail Recorded Client Recorded Date Recorded By Document 01/03/25 08:22 DS [id number] 01/03/25 08:26 DS 01/03/25 08:22 JESSICA Baptiste Today's Visit Information Type of service Initial Visit Arrival Mode Wheelchair Accompanied by mother and sister Patient Identification Verified (Name & Yes ) Patient Requires Transmission-Based No Precautions Safety Precautions Fall Prevention Vital Signs Temperature (97.8 F-99.1 F) 97.1 F L Temperature Source Temporal Pulse Rate (60-100) 106 H Pulse Location Monitor Respiratory Rate (12-18) 18 Respiratory rate source Observation Oxygen Delivery Method Room Air Blood Pressure (90/60-120/80) 117/76 Blood Pressure Mean 89 Source Monitor Position Semi-Fowlers Blood Pressure Location Right Arm Pain Scale: 0-10 Numeric Is Patient Pain Free? Yes Communication Assessment Preferred language Latvian Able to Read Yes Able to Write Yes Communication Tools None Right Hearing Abillity Normal Left Hearing Abillity Normal Visual Assistive Devices Glasses Teaching Assessment Preferences Verbal,Written Readiness To Learn Excellent Willingness to Engage in Self Management High Activies Readiness to Engage in Self Management High Activities Anxiety Level Calm Cooperation Cooperative Perception Coherent Interest in Health Problem Asks Questions Education Importance Acknowledges Need Does Patient Smoke tobacco or other No substances Is Patient Diabetic No Functional Assessment Recent Decline in Ability to Perform Denies Any Declines Teaching: Wound Center *Welcome to the Wound Center -Person Taught Patient,Family -Teaching Method Discussion -Response to teaching Verbalize Understanding JESSICA Baptiste Nurse 1 - General Ulcer Measurement Start: 01/03/25 08:21 Freq: Status: Active Protocol: Activity Type Activity Date Activity User E-sign Co-sign Detail Recorded Client Recorded Date Recorded By Document 01/03/25 08:26 [email or web address] [id number] 01/03/25 08:36 DS 01/03/25 08:26 Wound Center Nurse 1 #9 coccyx -Current Size (cm) - Length 0.9 -Current Size (cm) - Width 0.9 -Current Size (cm) - Depth 0.1 -Total Square Cm 0.81 -Date of Last Picture (Recall this 01/03/25 field) -Photo Taken Yes -Tunneling No -Undermining/Tunneling No -Circular Undermining No -Exudate Amt None Present -Wound Margin Distinct, Outline Attached -Texture (Patience-wound Skin Appearance) Assessed -Moisture (Patience-wound Skin Appearance) Assessed -Color (Patience-wound Skin Appearance) Assessed -Temperature (Patience-wound Skin No Abnormality Appearance) (Pt Warm) -Tenderness on Palpation (Patience-wound No Skin Appearance) -Ulcer Cleansing Soap and Water -Foul Odor after Cleansing No -Anesthetic Used 5% Lidocaine Gel WC - Nurse 2 - General Ulcer CM Notes Start: 01/03/25 08:21 Freq: Status: Active Protocol: Activity Type Activity Date Activity User E-sign Co-sign Detail Recorded Client Recorded Date Recorded By Document 01/03/25 08:41 [id number] 01/03/25 08:46 01/03/25 08:41 Wound Center Nurse 2 -Time 08:41 -Correct Patient Yes -Correct Side, Site, Position Yes -Correct Procedure Yes -Procedure Performed Yes -Type of Procedure Debridement -Clinical Debridement Subcutaneous -Tissue Removed Subcutaneous -Post Debridement (cm) - Length 0.9 -Post Debridement (cm) - Width 1.0 -Post Debridement (cm) - Depth 0.1 -Total Square (Post) (cm) 0.90 -Area of Debridement (cm) - Length 0.9 -Area of Debridement (cm) - Width 1.0 -Total Square (Area) (cm) 0.90 -Tunneling No -Undermining/Tunneling No -Circular Undermining No -Wound/Ulcer Outcome Not Healed -Ulcer Cleansing Rinsed/ Irrigated with Saline -Foul Odor after Cleansing No -Bioengineered Tissue No -Bleeding Controlled with Pressure -Treatment Response Procedure Tolerated Well -Offloading No -Debridement - Subq, 1st 20sq cm Yes Pain Scale: 0-10 Numeric Is Patient Pain Free? Yes JESSICA - Nurse 3 - General Ulcer D/C NN Start: 01/03/25 08:21 Freq: Status: Active Protocol: Activity Type Activity Date Activity User E-sign Co-sign Detail Recorded Client Recorded Date Recorded By Document 01/03/25 08:52 NM [id number] 01/03/25 09:06 NM 01/03/25 08:52 Wound Care Center Nurse 3 #9 coccyx -Primary Dressing Applied Promogran, Silicone Border Foam 4x4 -Other Dressing adaptic -Promogran 1 -Silicone Border Foam 4x4 2 Pain Scale: 0-10 Numeric Is Patient Pain Free? Yes WC - Visit Discharge Discharge Condition Stable Ambulatory Status Wheelchair Transportation Private Auto Medication Reconcilliation completed & No provided to patient/care provider Clinical Summary of Care Provided Yes Notes: explained new dressing changes to family and pt. they verbalized understanding. Charges/Coding Visit Charges Office Visits / Consults: 82184 OV L3 Est 20min Procedures Integumentary 111xxx-113xx: 85655 Sherlyn subq tissue 20 sq cm/< Assessment/Plan Assessment/Plan (1) Pressure ulcer of sacral region, stage 3: CODE(S): L89.153 - Pressure ulcer of sacral region, stage 3 (2) Spina bifida: CODE(S): Q05.9 - Spina bifida, unspecified PLAN: Plan New area of opening. Noted on Tuesday. No known precipitating factors however recently went back to her workshop. No chills, fever or feeling of unwell. Debridement done as documented above, procedure was well-tolerated. Area of erythema noted surrounding ulceration. Concern for cellulitis. Culture taken. Empirically starting cefdinir 300 mg twice daily for 10 days. For now, Promogran daily. Cover with Adaptic and foam dressing. Change when soiled. Continue offloading and reposition often. Optimal protein intake. Their questions were answered and they were advised to let us know if they had any further questions or concerns. Follow-up in a week or sooner if needed. This note was generated with Klutch dictation software. It may contain incorrectwords, spelling, and punctuation that were not noted in checking the note beforesigning. 01/03/25 1712 <Electronically signed by Savannah Kinney MD> Cosigner Signature (if applicable): CC: ~ Signed [facility] Work Phone: [phone] 642-289507-31-2025 History and physical note [facility] [address] [place] [address] H&P Exam - Wound Care 01/03/25 0925 MR#: [id number] Acct: [id number] Name: JULIETTE CREWS RAI Rep #:[id number] : 1975 49 From: Savannah neri MD PCP: Kassie Polanco, HUMAN RESOURCES TRAINING MANAGER-C Status:REG R CR Location: History of Present Illness Date of Service: 01/03/25 Chief Complaint: Sacral/Coccyx Ulcer History of Wound: Ms. Crews is a 49-year-old well-known to me. Recently discharged following healingof decubitus ulcers however, presents with a new sacral area ulcer. Said to have opened on Tuesday. 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 Had been off due to previous decubitus ulcers. Tuesday, new area of opening was noted. No chills, fever or feeling of unwell. Appetite is good. [facility] Medical History Decubitus ulcer of right buttock, stage 3 Decubitus ulcer of left buttock, stage 3 UTI (urinary tract infection) GI problem Kidney stone Seasonal allergies Wears glasses Depression Uses wheelchair History of urinary self-catheterization Back pain Constipation Gastric reflux Non-smoker BiPAP (biphasic positive airway pressure) dependence Asthma History of edema History of echocardiogram Hx of back injury Acquired scoliosis Spina bifida Home Medications ?Medication ?Instructions ?Recorded ?Last Taken ?Type multivitamin with folic acid 400 1 tab PO QHS general health 04/24/13 09/25/20 17:30 History mcg tablet (Thera) omeprazole 20 mg capsule,delayed 20 mg PO QHS acid ref lux 03/11/18 09/25/20 17:30 History release aspirin 81 mg chewable tablet 81 mg PO DAILY@0800 10/0 02/2111/02/21 Rx potassium citrate 15 mEq (1,620 15 meq PO BID ##60 09/25/20 17:30 Rx mg) tablet,extended release Bacillus coagulans 10 billion cell 1 each PO QHS [facility] 09/11/20 09/25/20 17:30 History capsule,delayed release polyethylene glycol 3350 17 gram 17 gm PO DAILY PRN KS N Constipation 09/14/20 09/25/20 17:30 History oral powder packet budesonide 0.25 mg/2 mL suspension 0.25 mg inhalation BID 10/28/21 Unknown History for nebulization bisacodyl 5 mg tablet 5 mg PO .once weekly 5 Unknown History docusate sodium 100 mg tablet 100 mg PO BID 08/21/24 U nknown History (Stool Softener) loratadine 10 mg tablet 10 mg PO QDAY 08/21/24 Unkno wn History mineral oil (Fleet Mineral Oil 118 ml [place] .QTUFR Unknown History enema) mupirocin calcium 2 % topical cream 1 applic topical B ID 08/21/24 Unknown History ondansetron HCl 4 mg tablet 4 mg PO .COMPLEX #10 tabs 08/21/24 Unknown Rx oxybutynin chloride 15 mg 5 mg PO TID BLADDER 08/21/24 Unknown History tablet,extended release 24 hr peg 3350-electrolytes 236 240 ml PO Q10M #4,000 mL Unknown Rx gram-22.74 gram-6.74 gram-5.86 gram solution (Golytely) psyllium husk 0.52 gram capsule 0.52 g PO QDAY 5 Unknown History (Fiber Laxative (psyllium husk)) sertraline 50 mg tablet 50 mg PO QDAY 08/21/24 Unkno wn History amoxicillin 500 mg-potassium 1 tab PO BID #14 tabs Unknown Rx clavulanate 125 mg tablet (Augmentin) sulfamethoxazole 800 1 tab PO BID #14 tabs Unknown Rx mg-trimethoprim 160 mg tablet (Bactrim DS) lubiprostone 24 mcg capsule 24 mcg PO BID constipation #60 caps 12/08/24 Unknown Rx (Amitiza) cefdinir 300 mg capsule 300 mg PO BID #20 caps 01/03 Unknown Rx Allergy/AdvReac Type Severity Reaction Status Date / Time amoxicillin (From Augmentin) AdvReac Diarrhea Verified 11/04/21 13:39 azithromycin (From Zithromax AdvReac Diarrhea Verified 11/04/21 13:39 Z-Turner) ciprofloxacin (From Cipro) AdvReac Pain in Verified 11/04/21 13:39 joints clavulanic acid (From AdvReac Diarrhea Verified 11/04/21 13:39 Augmentin) Surgical History History of incision and drainage Hx of eye surgery Hx of ileostomy History of brain shunt History of cystoscopy Hx of cholecystectomy Social History Smoking Status: Never smoker ROS Constitutional Constitutional: Denies body ache(s), change in weight, frequent falls, headache(s), increased appetite, poor appetite or snoring Eyes Eyes: Denies change in vision, decreased night vision, discharge from eye(s), exophthalmos, halo effect, itchy eyes, loss of central vision or loss of peripheral vision ENT HEENT: Denies dysphagia, ear discharge, facial pain, halitosis, headache(s), nasal congestion or nasal obstruction Cardiovascular Cardiovascular: Denies clubbing, cyanosis, diaphoresis, dyspnea at rest, dyspneaon exertion, easilytiring during activity or erythema on extremities Respiratory/Chest Respiratory/Chest: Denies dyspnea, dyspnea on exertion, hemoptysis, hoarseness, inability to speak,nail bed cyanosis or patience-oral cyanosis Gastrointestinal Gastrointestinal: Denies chewing difficulty, coffee ground emesis, constipation,cramping, diarrhea,dry heaves or dyspepsia Genitourinary Genitourinary: Denies abdominal discomfort, anuria, burning urination, difficulty urinating, dysuria or genital lesions Musculoskeletal Musculoskeletal: Denies joint stiffness, joint swelling, loss of height, muscle cramps, muscle spasms or muscle weakness Integumentary Integumentary: Denies erythema, furuncle, hirsutism, jaundice, lesions, nail changes or new lesions Neurologic Neurologic: Denies burning sensations, confusion, convulsions, disequilibrium, dizziness, focal weakness or frequent falls Psychiatric Psychiatric: Denies change in appetite, confusion, depression, difficulty concentrating, hallucinations, homicidal ideation or hopelessness Endocrine Endocrinology: Denies deepening of the voice, flushing, heat intolerance, palpitations, polydipsia,polyphagia or polyuria Allergic/Immunologic Allergic/Immunologic: Denies lip swelling, seasonal rhinorrhea, tongue swelling,hives, urticaria, eczemia or wheezing Vital Signs Vital Signs Vital Signs: 01/03/25 08:22 Temperature 97.1 F L Temperature Source Temporal Pulse Rate 106 H Respiratory Rate 18 Blood Pressure 117/76 Blood Pressure Mean 89 Blood Pressure Source Monitor Blood Pressure Position Semi-Fowlers Blood Pressure Location Right Arm Oxygen Delivery Method Room Air Physical Exam Const alert, oriented x3 and no apparent distress General Appearance: cooperative and well kempt HEENT normocephalic and hearing grossly normal bilaterally Head and Scalp: normal to inspection and atraumatic Neck full ROM and supple Resp normal respiratory effort Effort and Inspection: able to speak in complete sentences Skin Wounds: wounds noted size Size: See clinical note, bed with slough, no odor, open and surrounding erythema Neuro oriented x3 and CN's II-XII intact bilaterally Psych mental status grossly normal, cooperative and affect normal Appearance: grossly normal Attitude: calm Speech: normal speech Debridement Note Debridement Note Wound debrided: Sacrum Wound Grade/Stage: Stage III Type of Debridement: Excisional debridement Anesthesia Used: 5% Lidocaine Gel Depth: Down to and including healthy tissue and in the subcutaneous layer Percentage of wound debrided: 100 Instrument Used: 3mm curette Tissue Removed: Slough and devitalized tissue Severity: Fat Layer Exposed Amount of bleeding with debridement: Mild Bleeding Controlled with: Pressure Patient tolerated procedure: Patient did not tolerate procedure well Post-Debridement Measurements and Additional Note: Post-Debridement Measurements/Treatment - Nurse 1 - General Ulcer Assessment Start: 01/03/25 08:21 Freq: Status: Active Protocol: [email or web address] Activity Type Activity Date Activity User E-sign Co-sign Detail Recorded Client Recorded Date Recorded By Document 01/03/25 08:22 MALIKA [id number] 01/03/25 08:26 DS 01/03/25 08:22 - Today's Visit Information Type of service Initial Visit Arrival Mode Wheelchair Accompanied by mother and sister Patient Identification Verified (Name & Yes ) Patient Requires Transmission-Based No Precautions Safety Precautions Fall Prevention Vital Signs Temperature (97.8 F-99.1 F) 97.1 F L Temperature Source Temporal Pulse Rate (60-100) 106 H Pulse Location Monitor Respiratory Rate (12-18) 18 Respiratory rate source Observation Oxygen Delivery Method Room Air Blood Pressure (90/60-120/80) 117/76 Blood Pressure Mean 89 Source Monitor Position Semi-Fowlers Blood Pressure Location Right Arm Pain Scale: 0-10 Numeric Is Patient Pain Free? Yes Communication Assessment Preferred language Latvian Able to Read Yes Able to Write Yes Communication Tools None Right Hearing Abillity Normal Left Hearing Abillity Normal Visual Assistive Devices Glasses Teaching Assessment Preferences Verbal,Written Readiness To Learn Excellent Willingness to Engage in Self Management High Activies Readiness to Engage in Self Management High Activities Anxiety Level Calm Cooperation Cooperative Perception Coherent Interest in Health Problem Asks Questions Education Importance Acknowledges Need Does Patient Smoke tobacco or other No substances Is Patient Diabetic No Functional Assessment Recent Decline in Ability to Perform Denies Any Declines Teaching: Wound Center *Welcome to the Wound Center -Person Taught Patient,Family -Teaching Method Discussion -Response to teaching Verbalize Understanding WC - Nurse 1 - General Ulcer Measurement Start: 01/03/25 08:21 Freq: Status: Active Protocol: Activity Type Activity Date Activity User E-sign Co-sign Detail Recorded Client Recorded Date Recorded By Document 01/03/25 08:26 DS [id number] 01/03/25 08:36 DS 01/03/25 08:26 Wound Center Nurse 1 #9 coccyx -Current Size (cm) - Length 0.9 -Current Size (cm) - Width 0.9 -Current Size (cm) - Depth 0.1 -Total Square Cm 0.81 -Date of Last Picture (Recall this 01/03/25 field) -Photo Taken Yes -Tunneling No -Undermining/Tunneling No -Circular Undermining No -Exudate Amt None Present -Wound Margin Distinct, Outline Attached -Texture (Patience-wound Skin Appearance) Assessed -Moisture (Patience-wound Skin Appearance) Assessed -Color (Patience-wound Skin Appearance) Assessed -Temperature (Patience-wound Skin No Abnormality Appearance) (Pt Warm) -Tenderness on Palpation (Patience-wound No Skin Appearance) -Ulcer Cleansing Soap and Water -Foul Odor after Cleansing No -Anesthetic Used 5% Lidocaine Gel WC - Nurse 2 - General Ulcer CM Notes Start: 01/03/25 08:21 Freq: Status: Active Protocol: Activity Type Activity Date Activity User E-sign Co-sign Detail Recorded Client Recorded Date Recorded By Document 01/03/25 08:41 [id number] 01/03/25 08:46 GM 01/03/25 08:41 Wound Center Nurse 2 -Time 08:41 -Correct Patient Yes -Correct Side, Site, Position Yes -Correct Procedure Yes -Procedure Performed Yes -Type of Procedure Debridement -Clinical Debridement Subcutaneous -Tissue Removed Subcutaneous -Post Debridement (cm) - Length 0.9 -Post Debridement (cm) - Width 1.0 -Post Debridement (cm) - Depth 0.1 -Total Square (Post) (cm) 0.90 -Area of Debridement (cm) - Length 0.9 -Area of Debridement (cm) - Width 1.0 -Total Square (Area) (cm) 0.90 -Tunneling No -Undermining/Tunneling No -Circular Undermining No -Wound/Ulcer Outcome Not Healed -Ulcer Cleansing Rinsed/ Irrigated with Saline -Foul Odor after Cleansing No -Bioengineered Tissue No -Bleeding Controlled with Pressure -Treatment Response Procedure Tolerated Well -Offloading No -Debridement - Subq, 1st 20sq cm Yes Pain Scale: 0-10 Numeric Is Patient Pain Free? Yes - Nurse 3 - General Ulcer D/C NN Start: 01/03/25 08:21 Freq: Status: Active Protocol: Activity Type Activity Date Activity User E-sign Co-sign Detail Recorded Client Recorded Date Recorded By Document 01/03/25 08:52 NM [id number] 01/03/25 09:06 NM 01/03/25 08:52 Wound Care Center Nurse 3 #9 coccyx -Primary Dressing Applied Promogran, Silicone Border Foam 4x4 -Other Dressing adaptic -Promogran 1 -Silicone Border Foam 4x4 2 Pain Scale: 0-10 Numeric Is Patient Pain Free? Yes - Visit Discharge Discharge Condition Stable Ambulatory Status Wheelchair Transportation Private Auto Medication Reconcilliation completed & No provided to patient/care provider Clinical Summary of Care Provided Yes Notes: explained new dressing changes to family and pt. they verbalized understanding. Charges/Coding Visit Charges Office Visits / Consults: 64393 OV L3 Est 20min Procedures Integumentary 111xxx-113xx: 98825 Sherlyn subq tissue 20 sq cm/< Assessment/Plan Assessment/Plan (1) Pressure ulcer of sacral region, stage 3: CODE(S): L89.153 - Pressure ulcer of sacral region, stage 3 (2) Spina bifida: CODE(S): Q05.9 - Spina bifida, unspecified PLAN: Plan New area of opening. Noted on Tuesday. No known precipitating factors however recently went back to her workshop. No chills, fever or feeling of unwell. Debridement done as documented above, procedurewas well-tolerated. Area of erythema noted surrounding ulceration. Concern for cellulitis. Culture taken. Empirically starting cefdinir 300 mg twice daily for 10 days. For now, Promogran daily. Coverwith Adaptic and foam dressing. Change when soiled. Continue offloading and reposition often. Optimal protein intake. Their questions were answered and they were advised to let us know if they had any further questions or concerns. Follow-up in a week or sooner if needed. This note was generated with Brainlyation software. It may contain incorrectwords, spelling, and punctuation that were not noted in checking the note beforesigning. 01/03/25 171 Cosigner Signature (if applicable): CC: ~ Signed [facility]07-10-2025 Evaluation note* Diagnosis Onset Date Resolution Status Admit Date Decubitus ulcer of left buttock, stage 3 acute December 13, 2024 10:45am Decubitus ulcer of right buttock, stage 3 acute December 13, 2024 10:45am Pressure ulcer of sacral region, stage 3 chronic December 13, 2024 10:45am Spina bifida chronic December 13 10:45am Pressure ulcer of sacral region, stage 3 chronic January 03, 2025 8:08am Spina bifida chronic January 03 8:08am Constipation acute January 22, 2025 8:42am GERD (gastroesophageal reflu x disease) acute January 30 8:57am Chronic idiopathic constipation chronic January 30 8:57am Pressure ulcer of sacral region, stage 3 chronic January 31 10:00am Spina bifida chronic January 31, 2025 10:00am Pressure ulcer of sacral region, stage 3 chronic February 21, 2025 10:30am Spina bifida chronic February 212024 10:30am Pressure ulcer of sacral region, stage 3 chronic March 07 10:53am Spina bifida chronic March 07, 2025 10:53am Pressure ulcer of sacral region, stage 3 chronic March 28 11:23am Spina bifida chronic March 11:23am [facility] Work Phone: 1(254) 940-430407-03-2025 Progress note Author Savannah Kinney [facility] Note Date/Time December 06, 2024 1:44p m [facility] [address] [place] [address] Progress Note - Wound Care 12/06/24 1340 MR#: [id number] Acct: [id number] Name: JULIETTE CREWS RAI Rep #:[id number] : 1975 49 From: Savannah neri MD PCP: Kassie Polanco, HUMAN RESOURCES TRAINING MANAGER-C Status:REG R CR Location: History of Present Illness Date of Service: 12/06/24 Chief Complaint: Recurrent decubitus buttock and sacral ulcers History of Wound: A courtesy visit is provided today on behalf of the patient's regular Wound Center physician, Dr. Kinney. The patient's medical history is asfollows: Juliette is a 49-year-old well-known to the wound center who presented due to decubitus ulcers. She has a history of spinal bifida and paraplegia. She currently resides in a [facility]. Her family noted bleeding on her underwear during routine care and subsequently examined her buttock area where they noted some blisters and open areas. Since then, they had been applying Vaseline to the area and subsequently presented here. She has been relatively stable. No history of diabetes mellitus or tobacco use. She has been having more daily bowel movements however no significant watery bowel movements or concern for fecal contamination. She feels well otherwise. Progress of Wound: No acute concerns reported at this time. Has made significant progress since her last visit. Tolerating antibiotics well so far. Objective Data Objective Data Vital Signs: Vital Signs Temp Pulse Resp BP 97.5 F L 112 H 18 107/62 12/06/24 11:29 12/06/24 11:29 12/06/24 11:29 12/06/24 11:29 Charges/Coding Procedures Integumentary 111xxx-113xx: 22531 Sherlyn subq tissue 20 sq cm/< Physical Exam Const alert, oriented x3 and no apparent distress General Appearance: cooperative and well kempt HEENT normocephalic and hearing grossly normal bilaterally Head and Scalp: normal to inspection and atraumatic Neck full ROM and supple Resp normal respiratory effort and normal air movement Effort and Inspection: able to speak in complete sentences Skin Wounds: wounds noted size Size: See clinical note, bed with slough, no odor, open and surrounding erythema Neuro oriented x3 and CN's II-XII intact bilaterally Psych mental status grossly normal, cooperative and affect normal Appearance: grossly normal Attitude: calm Speech: normal speech Debridement Note Debridement Note Wound debrided: Left buttock cluster Wound Grade/Stage: Stage III Type of Debridement: Excisional debridement Anesthesia Used: 5% Lidocaine Gel Depth: Down to and including healthy tissue and in the subcutaneous layer Percentage of wound debrided: 100 Instrument Used: 5mm curette Tissue Removed: Slough and devitalized tissue Severity: Fat Layer Exposed Amount of bleeding with debridement: Mild Bleeding Controlled with: Pressure Patient tolerated procedure: Patient tolerated procedure well Post-Debridement Measurements and Additional Note: Post-Debridement Measurements/Treatment - Nurse 1 - General Ulcer Assessment Start: 12/06/24 11:29 Freq: Status: Active Protocol: TOBIN Activity Type Activity Date Activity User E-sign Co-sign Detail Recorded Client Recorded Date Recorded By Document 12/06/24 11:29 [email or web address] [id number] 12/06/24 11:33 ALFREDO 12/06/24 11:29 WC - Today's Visit Information Type of service 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 ) Arrival Mode Ambulatory Transfer Assistance Manual Transfer Assist (Other) three assist Patient Identification Verified (Name & Yes ) Patient Requires Transmission-Based No Precautions Safety Precautions NA Vital Signs Temperature (97.8 F-99.1 F) 97.5 F L Temperature Source Temporal Pulse Rate (60-100) 112 H Pulse Location Monitor Respiratory Rate (12-18) 18 Respiratory rate source Observation Blood Pressure (90/60-120/80) 107/62 Blood Pressure Mean (mm Hg) 77 Source Monitor Position Semi-Fowlers Blood Pressure Location Left Arm History Since Last Visit- (Skip if this is Patient's initial visit) Have you changed medications since your No last visit? Any new allergies or adverse reactions No Had a fall/change in ADL's that may No increase risk of falls Signs or symptoms of abuse and/or No neglect since last visit Have you been in the hospital since your No last visit? Has dressing in place as prescribed Yes Has compression in place as prescribed N/A Has offloadiing in place as prescribed N/A Experienced any changes in pain level or No management Pain Scale: 0-10 Numeric Is Patient Pain Free? Yes - Nurse 1 - General Ulcer Measurement Start: 12/06/24 11:29 Freq: Status: Active Protocol: Activity Type Activity Date Activity User E-sign Co-sign Detail Recorded Client Recorded Date Recorded By Document 12/06/24 11:29 [email or web address] [id number] 12/06/24 11:33 [email or web address] 12/06/24 11:29 Wound Center Nurse 1 #8 Right ishium cluster -Combined with other wound No -Current Size (cm) - Length 0.1 -Current Size (cm) - Width 0.1 -Current Size (cm) - Depth 0.1 -Total Square Cm 0.01 -Photo Taken Yes -Tunneling No -Undermining/Tunneling No -Circular Undermining No -Exudate Amt Medium -Exudate Type Serosanguineous -Wound Margin Distinct, Outline Attached -Granulation Amt Medium (34-66%) -Granulation Quality [place] -Slough/Fibrin Yes -Necrosis Amt Medium (34-66%) -Necrotic Tissue Type Adherent Slough -Structure Exposed N/A -Texture (Patience-wound Skin Appearance) Scarring -Moisture (Patience-wound Skin Appearance) Assessed -Color (Patience-wound Skin Appearance) Assessed -Temperature (Patience-wound Skin No Abnormality Appearance) (Pt Warm) -Tenderness on Palpation (Patience-wound No Skin Appearance) -Ulcer Cleansing Wound Cleanser -Foul Odor after Cleansing No #7 L Ishium cluster -Combined with other wound No -Current Size (cm) - Length 4.2 -Current Size (cm) - Width 1 -Current Size (cm) - Depth 0.1 -Total Square Cm 4.2 -Photo Taken Yes -Tunneling No -Undermining/Tunneling No -Circular Undermining No -Exudate Amt Medium -Exudate Type Serosanguineous -Wound Margin Distinct, Outline Attached -Granulation Amt Medium (34-66%) -Granulation Quality [place] -Slough/Fibrin Yes -Necrosis Amt Medium (34-66%) -Necrotic Tissue Type Adherent Slough -Structure Exposed N/A -Texture (Patience-wound Skin Appearance) Assessed, Scarring -Moisture (Patience-wound Skin Appearance) Assessed -Color (Patience-wound Skin Appearance) Assessed -Temperature (Patience-wound Skin No Abnormality Appearance) (Pt Warm) -Tenderness on Palpation (Patience-wound No Skin Appearance) -Ulcer Cleansing Wound Cleanser -Foul Odor after Cleansing No -Anesthetic Used 5% Lidocaine Gel #6- sacrum -Combined with other wound No -Current Size (cm) - Length 0.1 -Current Size (cm) - Width 0.1 -Current Size (cm) - Depth 0.1 -Total Square Cm 0.01 -Photo Taken Yes -Tunneling No -Undermining/Tunneling No -Circular Undermining No -Exudate Amt Medium -Exudate Type Serosanguineous -Wound Margin Distinct, Outline Attached -Granulation Amt Medium (34-66%) -Granulation Quality [place] -Slough/Fibrin Yes -Necrosis Amt Medium (34-66%) -Necrotic Tissue Type Adherent Slough -Structure Exposed N/A -Texture (Patience-wound Skin Appearance) Assessed -Moisture (Patience-wound Skin Appearance) Assessed -Color (Patience-wound Skin Appearance) Assessed -Temperature (Patience-wound Skin No Abnormality Appearance) (Pt Warm) -Tenderness on Palpation (Patience-wound No Skin Appearance) -Ulcer Cleansing Wound Cleanser -Foul Odor after Cleansing No -Anesthetic Used 5% Lidocaine Gel WC - Nurse 2 - General Ulcer CM Notes Start: 12/06/24 11:29 Freq: Status: Active Protocol: Activity Type Activity Date Activity User E-sign Co-sign Detail Recorded Client Recorded Date Recorded By Document 12/06/24 11:40 [id number] 12/06/24 11:44 GM 12/06/24 11:40 Wound Center Nurse 2 #8 Right ishium cluster -Time 11:43 -Correct Patient Yes -Correct Side, Site, Position Yes -Correct Procedure No -Procedure Performed No -Wound/Ulcer Outcome Healed- Epithelialized -Foul Odor after Cleansing No -Bioengineered Tissue No -Bleeding Controlled with NA #7 L Ishium cluster -Time 11:44 -Correct Patient Yes -Correct Side, Site, Position Yes -Correct Procedure Yes -Procedure Performed Yes -Type of Procedure Debridement -Clinical Debridement Subcutaneous -Tissue Removed Subcutaneous -Post Debridement (cm) - Length 3.7 -Post Debridement (cm) - Width 0.7 -Post Debridement (cm) - Depth 0.1 -Total Square (Post) (cm) 2.59 -Area of Debridement (cm) - Length 3.7 -Area of Debridement (cm) - Width 0.7 -Total Square (Area) (cm) 2.59 -Tunneling No -Undermining/Tunneling No -Circular Undermining No -Wound/Ulcer Outcome Not Healed -Ulcer Cleansing Rinsed/ Irrigated with Saline -Foul Odor after Cleansing No -Bioengineered Tissue No -Bleeding Controlled with Pressure -Treatment Response Procedure Tolerated Well -Offloading No -Debridement - Subq, 1st 20sq cm Yes #6- sacrum -Time 11:40 -Correct Patient Yes -Correct Side, Site, Position Yes -Correct Procedure No -Procedure Performed No -Wound/Ulcer Outcome Healed- Epithelialized -Foul Odor after Cleansing No -Bioengineered Tissue No -Bleeding Controlled with NA Pain Scale: 0-10 Numeric Is Patient Pain Free? Yes - Nurse 3 - General Ulcer D/C NN Start: 12/06/24 11:29 Freq: Status: Active Protocol: Activity Type Activity Date Activity User E-sign Co-sign Detail Recorded Client Recorded Date Recorded By Document 12/06/24 12:00 NM [id number] 12/06/24 12:02 NM 12/06/24 12:00 Wound Care Center Nurse 3 #8 Right ishium cluster -Foul Odor after Cleansing No -Negative Pressure Wound Therapy N/A -Primary Dressing Applied Fibracol Plus 4x4,Silicone Border Foam 4x4 -Fibracol Plus 4x4 1 -Silicone Border Foam 4x4 1 Pain Scale: 0-10 Numeric Is Patient Pain Free? Yes - Visit Discharge Discharge Condition Stable Ambulatory Status Ambulatory Transportation Private Auto Medication Reconcilliation completed & No provided to patient/care provider Clinical Summary of Care Provided Yes Assessment/Plan Assessment/Plan (1) Pressure ulcer of sacral region, stage 3: CODE(S): L89.153 - Pressure ulcer of sacral region, stage 3 (2) Decubitus ulcer of left buttock, stage 3: CODE(S): L89.323 - Pressure ulcer of left buttock, stage 3 (3) Decubitus ulcer of right buttock, stage 3: CODE(S): L89.313 - Pressure ulcer of right buttock, stage 3 (4) Spina bifida: CODE(S): Q05.9 - Spina bifida, unspecified PLAN: Plan Debridement done as documented above, procedure was well-tolerated. Has done remarkably well since her last visit. Sacral and right buttock ulcers have essentially healed. Left also with significant improvement. Has an appointmentwith urology on the due to concern for malfunctioning suprapubic catheter. Continue lightly moistened Fibracol and cover with foam dressing. Continue zincoxide/diaper rash cream for skin protection. Change daily or when soiled. Appetite is said to be good, continue optimal protein intake. Continue use of offloading devices/mattress. 6 weeks off workshop/work given to help with monitoring area properly, changing once soiled and repositioning. Their questions were answered and they were advised to let us know if they had any further questions or concerns. Follow-up in a week or sooner if needed. This note was generated with Brainlyation software. It may contain incorrectwords, spelling, and punctuation that were not noted in checking the note beforesigning. 12/06/24 1344 <Electronically signed by Savannah Kinney MD> Cosigner Signature (if applicable): CC: ~ Signed [facility] Work Phone: [phone] 438-406907-03-2025 Progress note [facility] [address] [place] [address] Progress Note - Wound Care 12/06/24 1340 MR#: [id number] Acct: [id number] Name: JULIETTE CREWS RAI Rep #:[id number] : 1975 49 From: Savannah neri MD PCP: ADAN Joseph Status:REG R CR Location: History of Present Illness Date of Service: 12/06/24 Chief Complaint: Recurrent decubitus buttock and sacral ulcers History of Wound: A courtesy visit is provided today on behalf of the patient's regular Wound Center physician, Dr. Kinney. The patient's medical history is asfollows: Juliette is a 49-year-old well-known to the wound center who presented due to decubitus ulcers. She has a history of spinal bifida and paraplegia. She currently resides [facility]. Her family noted bleeding on her underwear during routine care and subsequently examined her buttock area where they noted some blisters and open areas. Since then, they had been applying Vaseline to the area and subsequently presented here. She has been relatively stable. No history of diabetes mellitus or tobacco use. She has been having more daily bowel movements however no significant watery bowel movementsor concern for fecal contamination. She feels well otherwise. Progress of Wound: No acute concerns reported at this time. Has made significant progress since her last visit. Tolerating antibiotics well so far. Objective Data Objective Data Vital Signs: Vital Signs Temp Pulse Resp BP 97.5 F L 112 H 18 107/62 12/06/24 11:29 12/06/24 11:29 12/06/24 11:29 12/06/24 11:29 Charges/Coding Procedures Integumentary [id number]: [id number] Sherlyn subq tissue 20 sq cm/< Physical Exam Const alert, oriented x3 and no apparent distress General Appearance: cooperative and well kempt HEENT normocephalic and hearing grossly normal bilaterally Head and Scalp: normal to inspection and atraumatic Neck full ROM and supple Resp normal respiratory effort and normal air movement Effort and Inspection: able to speak in complete sentences Skin Wounds: wounds noted size Size: See clinical note, bed with slough, no odor, open and surrounding erythema Neuro oriented x3 and CN's II-XII intact bilaterally Psych mental status grossly normal, cooperative and affect normal Appearance: grossly normal Attitude: calm Speech: normal speech Debridement Note Debridement Note Wound debrided: Left buttock cluster Wound Grade/Stage: Stage III Type of Debridement: Excisional debridement Anesthesia Used: 5% Lidocaine Gel Depth: Down to and including healthy tissue and in the subcutaneous layer Percentage of wound debrided: 100 Instrument Used: 5mm curette Tissue Removed: Slough and devitalized tissue Severity: Fat Layer Exposed Amount of bleeding with debridement: Mild Bleeding Controlled with: Pressure Patient tolerated procedure: Patient tolerated procedure well Post-Debridement Measurements and Additional Note: Post-Debridement Measurements/Treatment - Nurse 1 - General Ulcer Assessment Start: 12/06/24 11:29 Freq: Status: Active Protocol: TOBIN Activity Type Activity Date Activity User E-sign Co-sign Detail Recorded Client Recorded Date Recorded By Document 12/06/24 11:29 [email or web address] [id number] 12/06/24 11:33 RB 12/06/24 11:29 - Today's Visit Information Type of service 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 ) Arrival Mode Ambulatory Transfer Assistance Manual Transfer Assist (Other) three assist Patient Identification Verified (Name & Yes ) Patient Requires Transmission-Based No Precautions Safety Precautions NA Vital Signs Temperature (97.8 F-99.1 F) 97.5 F L Temperature Source Temporal Pulse Rate (60-100) 112 H Pulse Location Monitor Respiratory Rate (12-18) 18 Respiratory rate source Observation Blood Pressure (90/60-120/80) 107/62 Blood Pressure Mean (mm Hg) 77 Source Monitor Position Semi-Fowlers Blood Pressure Location Left Arm History Since Last Visit- (Skip if this is Patient's initial visit) Have you changed medications since your No last visit? Any new allergies or adverse reactions No Had a fall/change in ADL's that may No increase risk of falls Signs or symptoms of abuse and/or No neglect since last visit Have you been in the hospital since your No last visit? Has dressing in place as prescribed Yes Has compression in place as prescribed N/A Has offloadiing in place as prescribed N/A Experienced any changes in pain level or No management Pain Scale: 0-10 Numeric Is Patient Pain Free? Yes WC - Nurse 1 - General Ulcer Measurement Start: 12/06/24 11:29 Freq: Status: Active Protocol: Activity Type Activity Date Activity User E-sign Co-sign Detail Recorded Client Recorded Date Recorded By Document 12/06/24 11:29 RB [id number] 12/06/24 11:33 RB 12/06/24 11:29 Wound Center Nurse 1 #8 Right ishium cluster -Combined with other wound No -Current Size (cm) - Length 0.1 -Current Size (cm) - Width 0.1 -Current Size (cm) - Depth 0.1 -Total Square Cm 0.01 -Photo Taken Yes -Tunneling No -Undermining/Tunneling No -Circular Undermining No -Exudate Amt Medium -Exudate Type Serosanguineous -Wound Margin Distinct, Outline Attached -Granulation Amt Medium (34-66%) -Granulation Quality [place] -Slough/Fibrin Yes -Necrosis Amt Medium (34-66%) -Necrotic Tissue Type Adherent Slough -Structure Exposed N/A -Texture (Patience-wound Skin Appearance) Scarring -Moisture (Patience-wound Skin Appearance) Assessed -Color (Patience-wound Skin Appearance) Assessed -Temperature (Patience-wound Skin No Abnormality Appearance) (Pt Warm) -Tenderness on Palpation (Patience-wound No Skin Appearance) -Ulcer Cleansing Wound Cleanser -Foul Odor after Cleansing No #7 L Ishium cluster -Combined with other wound No -Current Size (cm) - Length 4.2 -Current Size (cm) - Width 1 -Current Size (cm) - Depth 0.1 -Total Square Cm 4.2 -Photo Taken Yes -Tunneling No -Undermining/Tunneling No -Circular Undermining No -Exudate Amt Medium -Exudate Type Serosanguineous -Wound Margin Distinct, Outline Attached -Granulation Amt Medium (34-66%) -Granulation Quality [place] -Slough/Fibrin Yes -Necrosis Amt Medium (34-66%) -Necrotic Tissue Type Adherent Slough -Structure Exposed N/A -Texture (Patience-wound Skin Appearance) Assessed, Scarring -Moisture (Patience-wound Skin Appearance) Assessed -Color (Patience-wound Skin Appearance) Assessed -Temperature (Patience-wound Skin No Abnormality Appearance) (Pt Warm) -Tenderness on Palpation (Patience-wound No Skin Appearance) -Ulcer Cleansing Wound Cleanser -Foul Odor after Cleansing No -Anesthetic Used 5% Lidocaine Gel #6- sacrum -Combined with other wound No -Current Size (cm) - Length 0.1 -Current Size (cm) - Width 0.1 -Current Size (cm) - Depth 0.1 -Total Square Cm 0.01 -Photo Taken Yes -Tunneling No -Undermining/Tunneling No -Circular Undermining No -Exudate Amt Medium -Exudate Type Serosanguineous -Wound Margin Distinct, Outline Attached -Granulation Amt Medium (34-66%) -Granulation Quality [place] -Slough/Fibrin Yes -Necrosis Amt Medium (34-66%) -Necrotic Tissue Type Adherent Slough -Structure Exposed N/A -Texture (Patience-wound Skin Appearance) Assessed -Moisture (Patience-wound Skin Appearance) Assessed -Color (Patience-wound Skin Appearance) Assessed -Temperature (Patience-wound Skin No Abnormality Appearance) (Pt Warm) -Tenderness on Palpation (Patience-wound No Skin Appearance) -Ulcer Cleansing Wound Cleanser -Foul Odor after Cleansing No -Anesthetic Used 5% Lidocaine Gel WC - Nurse 2 - General Ulcer CM Notes Start: 12/06/24 11:29 Freq: Status: Active Protocol: Activity Type Activity Date Activity User E-sign Co-sign Detail Recorded Client Recorded Date Recorded By Document 12/06/24 11:40 [id number] 12/06/24 11:44 12/06/24 11:40 Wound Center Nurse 2 #8 Right [place] cluster -Time 11:43 -Correct Patient Yes -Correct Side, Site, Position Yes -Correct Procedure No -Procedure Performed No -Wound/Ulcer Outcome Healed- Epithelialized -Foul Odor after Cleansing No -Bioengineered Tissue No -Bleeding Controlled with NA #7 L Ishium cluster -Time 11:44 -Correct Patient Yes -Correct Side, Site, Position Yes -Correct Procedure Yes -Procedure Performed Yes -Type of Procedure Debridement -Clinical Debridement Subcutaneous -Tissue Removed Subcutaneous -Post Debridement (cm) - Length 3.7 -Post Debridement (cm) - Width 0.7 -Post Debridement (cm) - Depth 0.1 -Total Square (Post) (cm) 2.59 -Area of Debridement (cm) - Length 3.7 -Area of Debridement (cm) - Width 0.7 -Total Square (Area) (cm) 2.59 -Tunneling No -Undermining/Tunneling No -Circular Undermining No -Wound/Ulcer Outcome Not Healed -Ulcer Cleansing Rinsed/ Irrigated with Saline -Foul Odor after Cleansing No -Bioengineered Tissue No -Bleeding Controlled with Pressure -Treatment Response Procedure Tolerated Well -Offloading No -Debridement - Subq, 1st 20sq cm Yes #6- sacrum -Time 11:40 -Correct Patient Yes -Correct Side, Site, Position Yes -Correct Procedure No -Procedure Performed No -Wound/Ulcer Outcome Healed- Epithelialized -Foul Odor after Cleansing No -Bioengineered Tissue No -Bleeding Controlled with NA Pain Scale: 0-10 Numeric Is Patient Pain Free? Yes WC - Nurse 3 - General Ulcer D/C NN Start: 12/06/24 11:29 Freq: Status: Active Protocol: Activity Type Activity Date Activity User E-sign Co-sign Detail Recorded Client Recorded Date Recorded By Document 12/06/24 12:00 NM [id number] 12/06/24 12:02 NM 12/06/24 12:00 Wound Care Center Nurse 3 #8 Right [place] cluster -Foul Odor after Cleansing No -Negative Pressure Wound Therapy N/A -Primary Dressing Applied Fibracol Plus 4x4,Silicone Border Foam 4x4 -Fibracol Plus 4x4 1 -Silicone Border Foam 4x4 1 Pain Scale: 0-10 Numeric Is Patient Pain Free? Yes WC - Visit Discharge Discharge Condition Stable Ambulatory Status Ambulatory Transportation Private Auto Medication Reconcilliation completed & No provided to patient/care provider Clinical Summary of Care Provided Yes Assessment/Plan Assessment/Plan (1) Pressure ulcer of sacral region, stage 3: CODE(S): L89.153 - Pressure ulcer of sacral region, stage 3 (2) Decubitus ulcer of left buttock, stage 3: CODE(S): L89.323 - Pressure ulcer of left buttock, stage 3 (3) Decubitus ulcer of right buttock, stage 3: CODE(S): L89.313 - Pressure ulcer of right buttock, stage 3 (4) Spina bifida: CODE(S): Q05.9 - Spina bifida, unspecified PLAN: Plan Debridement done as documented above, procedure was well-tolerated. Has done remarkably well since her last visit. Sacral and right buttock ulcers have essentially healed. Left also with significant improvement. Has an appointmentwith urology on the due to concern for malfunctioning suprapubic catheter. Continue lightly moistened Fibracol and cover with foam dressing. Continue zincoxide/diaper rash cream for skin protection. Change daily or when soiled. Appetite is said to be good, continue optimal protein intake. Continue use of offloading devices/mattress. 6 weeks off workshop/work given to help with monitoring area properly, changing once soiled and repositioning. Their questions were answered and they were advised to let us know if they had any further questions or concerns. Follow-up in a week or sooner if needed. This note was generated with Klutch dictation software. It may contain incorrectwords, spelling, and punctuation that were not noted in checking the note beforesigning. 12/06/24 1344 Cosigner Signature (if applicable): CC: ~ Signed [facility]06-27-2025 History and physical note Author Brett Vincent [facility] Note Date/Time November 30, 2024 9:[address] [facility] [address] [place] [address] H&P Exam - Wound Care 11/29/24 1637 MR#: [id number] Acct: [id number] Name: JULIETTE CREWS RAI Rep #:[id number] : 1975 49 From: Brett Roman PCP: Kassie Polanco NP-C Status:REG R CR Location: ADDENDUM by Dr. Brett Vincent MD on 11/30/24 at 0947 Addendum Because of the effect of Bactrim in association with the patient's daily potassium supplementation, the patient's caregivers have been instructed to halfthe dose of the patient's current potassium medication. 11/30/24 0947<Electronically signed by Brett Vincent MD> Cosigner Signature (if applicable): cc: ~* Signed History of Present Illness Date of Service: 11/29/24 Chief Complaint: Recurrent decubitus buttock and sacral ulcers History of Wound: A courtesy visit is provided today on behalf of the patient's regular Wound Center physician, Dr. Kinney. The patient's medical history is asfollows: Juliette is a 49-year-old well-known to the wound center who presented due to decubitus ulcers. She has a history of spinal bifida and paraplegia. She currently resides in [facility]. Her family noted bleeding on her underwear during routine care and subsequently examined her buttock area where they noted some blisters and open areas. Since then, they had been applying Vaseline to the area and subsequently presented here. She has been relatively stable. No history of diabetes mellitus or tobacco use. She has been having more daily bowel movements however no significant watery bowel movements or concern for fecal contamination. She feels well otherwise. [facility] Medical History Decubitus ulcer of right buttock, stage 3 Decubitus ulcer of left buttock, stage 3 UTI (urinary tract infection) GI problem Kidney stone Seasonal allergies Wears glasses Depression Uses wheelchair History of urinary self-catheterization Back pain Constipation Gastric reflux Non-smoker BiPAP (biphasic positive airway pressure) dependence Asthma History of edema History of echocardiogram Hx of back injury Acquired scoliosis Spina bifida Home Medications ?Medication ?Instructions ?Recorded ?Last Taken ?Type multivitamin with folic acid 400 1 tab PO QHS general health 04/24/13 09/25/20 17:30 History mcg tablet (Thera) omeprazole 20 mg capsule,delayed 20 mg PO QHS acid ref lux 03/11/18 09/25/20 17:30 History release aspirin 81 mg chewable tablet 81 mg PO DAILY@0800 10/0 02/2111/02/21 Rx potassium citrate 15 mEq (1,620 15 meq PO BID ##60 09/25/20 17:30 Rx mg) tablet,extended release Bacillus coagulans 10 billion cell 1 each PO QHS [facility] E [facility] 09/11/20 09/25/20 17:30 History capsule,delayed release polyethylene glycol 3350 17 gram 17 gm PO DAILY PRN KS N Constipation 09/14/20 09/25/20 17:30 History oral powder packet budesonide 0.25 mg/2 mL suspension 0.25 mg inhalation BID 10/28/21 Unknown History for nebulization bisacodyl 5 mg tablet 5 mg PO .once weekly 5 Unknown History docusate sodium 100 mg tablet 100 mg PO BID 08/21/24 U nknown History (Stool Softener) loratadine 10 mg tablet 10 mg PO QDAY 08/21/24 Unkno wn History mineral oil (Fleet Mineral Oil 118 ml [place] .QTUFR Unknown History enema) mupirocin calcium 2 % topical cream 1 applic topical B ID 08/21/24 Unknown History ondansetron HCl 4 mg tablet 4 mg PO .COMPLEX #10 tabs 08/21/24 Unknown Rx oxybutynin chloride 15 mg 5 mg PO TID BLADDER 08/21/24 Unknown History tablet,extended release 24 hr peg 3350-electrolytes 236 240 ml PO Q10M #4,000 mL Unknown Rx gram-22.74 gram-6.74 gram-5.86 gram solution (Golytely) psyllium husk 0.52 gram capsule 0.52 g PO QDAY 5 Unknown History (Fiber Laxative (psyllium husk)) sertraline 50 mg tablet 50 mg PO QDAY 08/21/24 Unkno wn History lubiprostone 24 mcg capsule 24 mcg PO BID constipation #60 caps 09/04/24 Unknown Rx (Amitiza) Allergy/AdvReac Type Severity Reaction Status Date / Time amoxicillin (From Augmentin) AdvReac Diarrhea Verified 11/04/21 13:39 azithromycin (From Zithromax AdvReac Diarrhea Verified 11/04/21 13:39 Z-Turner) ciprofloxacin (From Cipro) AdvReac Pain in Verified 11/04/21 13:39 joints clavulanic acid (From AdvReac Diarrhea Verified 11/04/21 13:39 Augmentin) Surgical History History of incision and drainage Hx of eye surgery Hx of ileostomy History of brain shunt History of cystoscopy Hx of cholecystectomy Social History Smoking Status: Never smoker Vital Signs Vital Signs Vital Signs: 11/29/24 10:50 Temperature 98.2 F Temperature Source Temporal Pulse Rate 100 Respiratory Rate 18 Blood Pressure 118/83 H Blood Pressure Mean 94 Blood Pressure Source Monitor Blood Pressure Position Semi-Fowlers Blood Pressure Location Right Arm Oxygen Delivery Method Room Air Physical Exam Const alert, oriented x3 and no apparent distress General Appearance: cooperative and well kempt Orientation / Consciousness: awake HEENT normocephalic and head/scalp atraumatic Head and Scalp: normal to inspection and atraumatic Nose: external nose normal External Ear: external ears normal Resp normal respiratory effort, normal air movement, no retractions and no use of accessory muscles Effort and Inspection: able to speak in complete sentences Extremity Extremity Narrative: Lower extremities are atrophic. Skin Wounds: wounds noted size Size: See clinical note, bed with slough, no odor, open and surrounding erythema Wound Narrative: Stage II/III pressure ulcerations are noted in the perineal area. These are located on the sacrum, and in the ischial areas bilaterally. There is 1 pressure ulceration on the right ischium. There are 2 separate ulcerations on the left ischial area. The base of the ulcerations are generally pink and healthy in appearance, with a small amount of bioburden. Ulcer margins are wellbeveled. There is no overt sign of infection or cellulitis. Dimensions of eachulceration are documented elsewhere. Neuro oriented x3 and CN's II-XII intact bilaterally Neuro Narrative: The patient is paraplegic. Sensorium / Orientation: awake and alert Psych mental status grossly normal, cooperative and affect normal Appearance: grossly normal Attitude: calm Speech: normal speech Debridement Note Debridement Note Wound debrided: Left ischial ulcerations x 2 Laterality: Left Wound Grade/Stage: Stage II/III Type of Debridement: Excisional debridement Anesthesia Used: 5% Lidocaine Gel Depth: Down to and including healthy tissue and in the subcutaneous layer Percentage of wound debrided: 100 Instrument Used: 3mm curette Tissue Removed: Bioburden Severity: Fat Layer Exposed Amount of bleeding with debridement: Mild Bleeding Controlled with: Compression and gauze Patient tolerated procedure: Patient tolerated procedure well Post-Debridement Measurements and Additional Note: Post-Debridement Measurements/Treatment - Nurse 1 - General Ulcer Assessment Start: 11/22/24 10:38 Freq: Status: Active Protocol: EVRYTHNGFAITH Activity Type Activity Date Activity User E-sign Co-sign Detail Recorded Client Recorded Date Recorded By Document 11/22/24 10:48 DS [id number] 11/22/24 10:52 DS Document 11/29/24 10:50 DS [id number] 11/29/24 11:07 DS 11/22/24 11/29/24 10:48 10:50 - Today's Visit Information Type of service Initial Visit 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 ) Arrival Mode Wheelchair Wheelchair Transfer Assistance Manual Patient Identification Verified (Name & Yes ) Patient Requires Transmission-Based No No Precautions Safety Precautions Fall Prevention Fall Prevention Vital Signs Temperature (97.8 F-99.1 F) 98.4 F 98.2 F Temperature Source Temporal Temporal Pulse Rate (60-100) 87 100 Pulse Location Monitor Respiratory Rate (12-18) 18 18 Respiratory rate source Observation Observation Oxygen Delivery Method Nasal Cannula Room Air Blood Pressure (90/60-120/80) 139/103 H 118/83 H Blood Pressure Mean 115 94 Source Monitor Monitor Position Semi-Fowlers Semi-Fowlers Blood Pressure Location Right Arm Right Arm Pain Scale: 0-10 Numeric Is Patient Pain Free? Yes Yes Communication Assessment Preferred language Latvian 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 No Able to Read Yes Able to Write Yes Right Hearing Abillity Normal Left Hearing Abillity Normal Visual Assistive Devices Glasses Teaching Assessment Preferences Verbal,Written, Demonstration Barriers to Learning Knowledge Deficit Readiness To Learn Good Willingness to Engage in Self Management Med Activies Readiness to Engage in Self Management Med Activities Anxiety Level Calm Cooperation Cooperative Perception Coherent Interest in Health Problem Uninterested Education Importance Acknowledges Need Does Patient Smoke tobacco or other No substances Is Patient Diabetic No Functional Assessment Recent Decline in Ability to Perform Denies Any Declines List Device(s) with Patient family support Culture/Hinduism/Public Health Clinical Nurse Specialist Cultural/Hinduism Needs that may affect No Treatment Plan Teaching: Wound Center *Welcome to the Wound Center -Person Taught Patient,Family, Significant Other -Teaching Method Discussion -Response to teaching Verbalize Understanding WC - Nurse 1 - General Ulcer Measurement Start: 11/22/24 10:38 Freq: Status: Active Protocol: Activity Type Activity Date Activity User E-sign Co-sign Detail Recorded Client Recorded Date Recorded By Document 11/22/24 11:09 DS [id number] 11/22/24 11:13 DS Document 11/29/24 10:50 DS [id number] 11/29/24 11:07 DS 11/22/24 11/29/24 11:09 10:50 Wound Center Nurse 1 #10 rectum -Current Size (cm) - Length 0.9 -Current Size (cm) - Width 1.4 -Current Size (cm) - Depth 0.1 -Total Square Cm 1.26 -Date of Last Picture (Recall this 11/22/24 field) -Photo Taken Yes -Tunneling No -Undermining/Tunneling No -Circular Undermining No -Exudate Amt None Present -Wound Margin Distinct, Outline Attached -Granulation Amt Large (67-100%) -Granulation Quality [place] -Slough/Fibrin No -Texture (Patience-wound Skin Appearance) Assessed -Moisture (Patience-wound Skin Appearance) Assessed -Color (Patience-wound Skin Appearance) Assessed -Temperature (Patience-wound Skin No Abnormality Appearance) (Pt Warm) -Ulcer Cleansing Soap and Water -Foul Odor after Cleansing No -Anesthetic Used 5% Lidocaine Gel #9 left superior ischium -Current Size (cm) - Length 2.1 -Current Size (cm) - Width 3.8 -Current Size (cm) - Depth 0.1 -Total Square Cm 7.98 -Date of Last Picture (Recall this 11/22/24 field) -Photo Taken Yes -Tunneling No -Undermining/Tunneling No -Circular Undermining No -Exudate Amt None Present -Wound Margin Distinct, Outline Attached -Granulation Amt Large (67-100%) -Granulation Quality Red -Slough/Fibrin No -Texture (Patience-wound Skin Appearance) Assessed -Moisture (Patience-wound Skin Appearance) Assessed -Color (Patience-wound Skin Appearance) Assessed -Temperature (Patience-wound Skin No Abnormality Appearance) (Pt Warm) -Tenderness on Palpation (Patience-wound No Skin Appearance) -Ulcer Cleansing Soap and Water -Foul Odor after Cleansing No -Anesthetic Used 5% Lidocaine Gel #8 left inferior ischium -Current Size (cm) - Length 2.1 -Current Size (cm) - Width 6.0 -Current Size (cm) - Depth 0.1 -Total Square Cm 12.60 -Date of Last Picture (Recall this 11/22/24 field) -Photo Taken Yes -Tunneling No -Undermining/Tunneling No -Circular Undermining No -Exudate Amt None Present -Wound Margin Distinct, Outline Attached -Granulation Amt Large (67-100%) -Granulation Quality Red -Slough/Fibrin No -Texture (Patience-wound Skin Appearance) Assessed -Moisture (Patience-wound Skin Appearance) Assessed -Color (Patience-wound Skin Appearance) Assessed -Temperature (Patience-wound Skin No Abnormality Appearance) (Pt Warm) -Tenderness on Palpation (Patience-wound No Skin Appearance) -Ulcer Cleansing Soap and Water -Foul Odor after Cleansing No -Anesthetic Used 5% Lidocaine Gel #7 right ischiu -Current Size (cm) - Length 1.8 -Current Size (cm) - Width 3.0 -Current Size (cm) - Depth 0.1 -Total Square Cm 5.40 -Date of Last Picture (Recall this 11/22/24 field) -Photo Taken Yes -Tunneling No -Undermining/Tunneling No -Circular Undermining No -Exudate Amt None Present -Wound Margin Distinct, Outline Attached -Granulation Amt Large (67-100%) -Granulation Quality [place] -Slough/Fibrin No -Texture (Patience-wound Skin Appearance) Assessed -Moisture (Patience-wound Skin Appearance) Assessed -Color (Patience-wound Skin Appearance) Assessed -Temperature (Patience-wound Skin No Abnormality Appearance) (Pt Warm) -Ulcer Cleansing Soap and Water -Foul Odor after Cleansing No -Anesthetic Used 5% Lidocaine Gel #8 Right ishium cluster -Current Size (cm) - Length 1.5 -Current Size (cm) - Width 2.5 -Current Size (cm) - Depth 0.1 -Total Square Cm 3.75 -Date of Last Picture (Recall this 11/29/24 field) -Photo Taken Yes -Tunneling No -Undermining/Tunneling No -Circular Undermining No -Exudate Amt Medium -Exudate Type Serosanguineous -Wound Margin Distinct, Outline Attached -Granulation Amt Large (67-100%) -Granulation Quality Red -Necrosis Amt None Present (0 %) -Texture (Patience-wound Skin Appearance) Assessed -Moisture (Patience-wound Skin Appearance) Assessed -Color (Patience-wound Skin Appearance) Assessed -Temperature (Patience-wound Skin No Abnormality Appearance) (Pt Warm) -Tenderness on Palpation (Patience-wound No Skin Appearance) -Ulcer Cleansing Soap and Water -Anesthetic Used 5% Lidocaine Gel #7 L Ishium cluster -Current Size (cm) - Length 5.0 -Current Size (cm) - Width 5.0 -Current Size (cm) - Depth 0.1 -Total Square Cm 25.00 -Date of Last Picture (Recall this 11/29/24 field) -Photo Taken Yes -Tunneling No -Undermining/Tunneling No -Circular Undermining No -Exudate Amt Medium -Exudate Type Serosanguineous -Granulation Amt Large (67-100%) -Granulation Quality [place] -Necrosis Amt Small (1-33%) -Necrotic Tissue Type Adherent Slough -Texture (Patience-wound Skin Appearance) Assessed -Moisture (Patience-wound Skin Appearance) Assessed -Color (Patience-wound Skin Appearance) Assessed -Temperature (Patience-wound Skin No Abnormality Appearance) (Pt Warm) -Tenderness on Palpation (Patience-wound No Skin Appearance) -Ulcer Cleansing Soap and Water -Anesthetic Used 5% Lidocaine Gel #6- sacrum -Current Size (cm) - Length 2.0 -Current Size (cm) - Width 1.0 -Current Size (cm) - Depth 0.1 -Total Square Cm 2.00 -Date of Last Picture (Recall this 11/29/24 field) -Photo Taken Yes -Tunneling No -Undermining/Tunneling No -Circular Undermining No -Exudate Amt Medium -Exudate Type Serosanguineous -Wound Margin Distinct, Outline Attached -Granulation Amt Large (67-100%) -Granulation Quality [place] -Texture (Patience-wound Skin Appearance) Assessed -Moisture (Patience-wound Skin Appearance) Assessed -Color (Patience-wound Skin Appearance) Assessed -Temperature (Patience-wound Skin No Abnormality Appearance) (Pt Warm) -Tenderness on Palpation (Patience-wound No Skin Appearance) -Ulcer Cleansing Soap and Water -Anesthetic Used 5% Lidocaine Gel WC - Nurse 2 - General Ulcer CM Notes Start: 11/22/24 10:38 Freq: Status: Active Protocol: Activity Type Activity Date Activity User E-sign Co-sign Detail Recorded Client Recorded Date Recorded By Document 11/22/24 11:12 GM [id number] 11/22/24 11:33 GM Document 11/29/24 11:19 GM [id number] 11/29/24 11:24 GM Edit Result 11/29/24 11:19 GM (1) [id number] 11/29/24 11:28 GM (1) #8 Right ishium cluster - Post Debridement (cm) - Length => 1.5 - Post Debridement (cm) - Width => 2.5 - Post Debridement (cm) - Depth => 0.1 - Total Square (Post) (cm) => 3.75 - Area of Debridement (cm) - Length => 1.5 - Area of Debridement (cm) - Width => 2.5 - Total Square (Area) (cm) => 3.75 #7 L Ishium cluster - Post Debridement (cm) - Length => 5.0 - Post Debridement (cm) - Width => 5.0 - Post Debridement (cm) - Depth => 0.1 - Total Square (Post) (cm) => 25.00 - Area of Debridement (cm) - Length => 5.0 - Area of Debridement (cm) - Width => 5.0 - Total Square (Area) (cm) => 25.00 #6- sacrum - Post Debridement (cm) - Length => 2.0 - Post Debridement (cm) - Width => 1.0 - Post Debridement (cm) - Depth => 0.1 - Total Square (Post) (cm) => 2.00 - Area of Debridement (cm) - Length => 2.0 - Area of Debridement (cm) - Width => 1.0 - Total Square (Area) (cm) => 2.00 - Debridement, SubQ, ea addt'l 20sq cm => 1 or part thereof 11/22/24 11/29/24 11:12 11:19 Wound Center Nurse 2 #8 Right ishium cluster -Time 11:32 11:21 -Correct Patient Yes Yes -Correct Side, Site, Position Yes Yes -Correct Procedure Yes Yes -Procedure Performed Yes Yes -Type of Procedure Debridement Debridement -Clinical Debridement Subcutaneous Subcutaneous -Tissue Removed Subcutaneous Subcutaneous -Post Debridement (cm) - Length 3.4 1.5 -Post Debridement (cm) - Width 3.3 2.5 -Post Debridement (cm) - Depth 0.1 0.1 -Total Square (Post) (cm) 11.22 3.75 -Area of Debridement (cm) - Length 3.4 1.5 -Area of Debridement (cm) - Width 3.3 2.5 -Total Square (Area) (cm) 11.22 3.75 -Tunneling No No -Undermining/Tunneling No No -Circular Undermining No No -Wound/Ulcer Outcome Not Healed Not Healed -Ulcer Cleansing Rinsed/ Rinsed/ Irrigated with Irrigated with Saline Saline -Foul Odor after Cleansing No No -Bioengineered Tissue No No -Bleeding Controlled with Pressure Pressure -Treatment Response Procedure Procedure Tolerated Well Tolerated Well -Offloading No -Debridement - Subq, 1st 20sq cm Yes No -Debridement, SubQ, ea addt'l 20sq cm 2 or part thereof #7 L Ishium cluster -Time 11:18 11:21 -Correct Patient Yes Yes -Correct Side, Site, Position Yes Yes -Correct Procedure Yes Yes -Procedure Performed Yes Yes -Type of Procedure Debridement Debridement -Clinical Debridement Subcutaneous Subcutaneous -Tissue Removed Subcutaneous Subcutaneous -Post Debridement (cm) - Length 6.0 5.0 -Post Debridement (cm) - Width 6.0 5.0 -Post Debridement (cm) - Depth 0.1 0.1 -Total Square (Post) (cm) 36.00 25.00 -Area of Debridement (cm) - Length 6.0 5.0 -Area of Debridement (cm) - Width 6.0 5.0 -Total Square (Area) (cm) 36.00 25.00 -Tunneling No No -Undermining/Tunneling No No -Circular Undermining No No -Wound/Ulcer Outcome Not Healed Not Healed -Ulcer Cleansing Rinsed/ Rinsed/ Irrigated with Irrigated with Saline Saline -Foul Odor after Cleansing No No -Bioengineered Tissue No No -Bleeding Controlled with Pressure Pressure -Treatment Response Procedure Procedure Tolerated Well Tolerated Well -Offloading No No -Debridement - Subq, 1st 20sq cm No No #6- sacrum -Time 11:12 11:22 -Correct Patient Yes Yes -Correct Side, Site, Position Yes Yes -Correct Procedure Yes Yes -Procedure Performed Yes Yes -Type of Procedure Debridement Debridement -Clinical Debridement Subcutaneous Subcutaneous -Tissue Removed Subcutaneous Subcutaneous -Post Debridement (cm) - Length 1.0 2.0 -Post Debridement (cm) - Width 0.4 1.0 -Post Debridement (cm) - Depth 0.1 0.1 -Total Square (Post) (cm) 0.40 2.00 -Area of Debridement (cm) - Length 1.0 2.0 -Area of Debridement (cm) - Width 0.4 1.0 -Total Square (Area) (cm) 0.40 2.00 -Tunneling No No -Undermining/Tunneling No No -Circular Undermining No No -Wound/Ulcer Outcome Not Healed Not Healed -Ulcer Cleansing Rinsed/ Rinsed/ Irrigated with Irrigated with Saline Saline -Foul Odor after Cleansing No No -Bioengineered Tissue No No -Bleeding Controlled with Pressure Pressure -Treatment Response Procedure Procedure Tolerated Well Tolerated Well -Offloading No -Debridement - Subq, 1st 20sq cm No Yes -Debridement, SubQ, ea addt'l 20sq cm 1 or part thereof Pain Scale: 0-10 Numeric Is Patient Pain Free? Yes Yes WC - Nurse 3 - General Ulcer D/C NN Start: 11/22/24 10:38 Freq: Status: Active Protocol: Activity Type Activity Date Activity User E-sign Co-sign Detail Recorded Client Recorded Date Recorded By Document 11/22/24 11:47 DS [id number] 11/22/24 11:54 DS Edit Result 11/22/24 11:47 DS (1) [id number] 11/22/24 12:01 DS Document 11/29/24 11:28 GM [id number] 11/29/24 11:32 GM (1) #7 L Ishium cluster - Fibracol Plus 4x4 0 => 1 11/22/24 11/29/24 11:47 11:28 Wound Care Center Nurse 3 #8 Right ishium cluster -Ulcer Cleansing Not Cleansed -Foul Odor after Cleansing No -Primary Dressing Applied Fibracol Plus Fibracol Plus 4x4,Silicone 4x4,Silicone Border Foam 6x6 Border Foam 4x4 -Fibracol Plus 4x4 1 1 -Silicone Border Foam 4x4 1 -Silicone Border Foam 6x6 1 #7 L Ishium cluster -Ulcer Cleansing Not Cleansed -Foul Odor after Cleansing No -Primary Dressing Applied Fibracol Plus Silicone Border 4x4,Silicone Foam 4x4 Border Foam 4x4 -Fibracol Plus 4x4 1 -Silicone Border Foam 4x4 1 1 #6- sacrum -Ulcer Cleansing Not Cleansed -Foul Odor after Cleansing No -Negative Pressure Wound Therapy N/A -Primary Dressing Applied Fibracol Plus Silicone Border 4x4,Silicone Foam 4x4 Border Foam 4x4 -Fibracol Plus 4x4 0 -Silicone Border Foam 4x4 1 1 Pain Scale: 0-10 Numeric Is Patient Pain Free? Yes Yes WC - Visit Discharge Discharge Condition Stable Stable Ambulatory Status Wheelchair Wheelchair Transportation Private Auto Private Auto Accompanied by mother/sister Additional Wound Wound debrided: Right ischial pressure ulceration Laterality: Right Wound Grade/Stage: Stage II/III Type of Debridement: Excisional debridement Anesthesia Used: 5% Lidocaine Gel Depth: Down to and including healthy tissue and in the subcutaneous layer Percentage of wound debrided: 100 Instrument Used: 3mm curette Tissue Removed: Bioburden Severity: Fat Layer Exposed Amount of bleeding with debridement: Mild Bleeding Controlled with: Compression and gauze Patient tolerated procedure: Patient tolerated procedure well Additional Wound Wound debrided: Sacral pressure ulceration Laterality: Not Applicable Wound Grade/Stage: Stage III Type of Debridement: Excisional debridement Anesthesia Used: 5% Lidocaine Gel Depth: Down to and including healthy tissue and in the subcutaneous layer Percentage of wound debrided: 100 Instrument Used: 3mm curette Tissue Removed: Bioburden Severity: Fat Layer Exposed Amount of bleeding with debridement: Mild Bleeding Controlled with: Compression and gauze Patient tolerated procedure: Patient tolerated procedure well Lab / Micro Data Micro: Microbiology 11/22/24 11:30 Wound - Ischium Gram Stain - Final 11/22/24 11:30 Wound - Ischium Wound Culture - Final Citrobacter freundii Klebsiella aerogenes Corynebacterium striatum Enterococcus faecalis 11/22/24 11:30 Wound - Ischium Anaerobic Culture - Final Cutibacterium granulosum Anaerobic cocci Charges/Coding Procedures Integumentary Add On Codes: 40799 Sherlyn subq tissue add-on Multi Select Codes Visit Charges Office Visit/Consults: 05013 OV L4 New 45 min Integumentary Integumentary CPT Codes: 77368 Sherlyn subq tissue 20 sq cm/< Assessment/Plan Assessment/Plan (1) Pressure ulcer of sacral region, stage 3: CODE(S): L89.153 - Pressure ulcer of sacral region, stage 3 (2) Decubitus ulcer of left buttock, stage 3: CODE(S): L89.323 - Pressure ulcer of left buttock, stage 3 (3) Decubitus ulcer of right buttock, stage 3: CODE(S): L89.313 - Pressure ulcer of right buttock, stage 3 (4) Spina bifida: CODE(S): Q05.9 - Spina bifida, unspecified PLAN: Plan This is a 49-year-old female with spina bifida and lower extremity paraplegia. She is accompanied by her mother and a caregiver from her [facility]. It is ascertained that offloading measures have been implemented, and the patient usesa Roho cushion on her wheelchair. We have reviewed the importance of offloadingin detail today. Moistened Fibricol is currently being used topically on a daily basis, and is to continue. Daily cleansing with an antibacterial soap is also to continue. Nutritional optimization has been discussed, and the patient encouraged to consume a healthy, high-protein diet. The patient is not known vishnu diabetic, and she does not smoke. The patient is incontinent of urine, and currently has a urinary suprapubic catheter. She is incontinent of stool, and caregivers have been instructed to maintain optimal hygiene to the perineal area. A wound culture was obtained on November 22, 2024, the results of which have isolated Citrobacter freundii, Klebsiella aerogenes, Corynebacterium stratum, Enterococcus faecalis, Cutibacterium granulosum, and anaerobic cocci. Based upon sensitivity results, the patient is to be placed on a week-long course of Augmentin 875 mg twice daily, and Bactrim double strength twice daily. The patient is to follow-up in [address] Kinney. Total time: 48 minutes 11/29/24 2197 <Electronically signed by Brett Vincent MD> Cosigner Signature (if applicable): CC: ~ Signed [facility] Work Phone: [phone] History and physical note [facility] [address] [place] [address] H&P Exam - Wound Care 11/29/24 1637 MR#: [id number] Acct: [id number] Name: JULIETTE CREWS RAI Rep #:[id number] : 1975 49 From: Brett Roman PCP: Kassie Polanco [employer] [facility] Status:REG R CR Location: ADDENDUM by Dr. Brett Vincent MD on 11/30/24 at 0947 Addendum Because of the effect of Bactrim in association with the patient's daily potassium supplementation,the patient's caregivers have been instructed to halfthe dose of the patient's current potassium medication. 11/30/24946 Cosigner Signature (if applicable): cc: ~* Signed History of Present Illness Date of Service: 11/29/24 Chief Complaint: Recurrent decubitus buttock and sacral ulcers History of Wound: A courtesy visit is provided today on behalf of the patient's regular Wound Center physician, Dr. Kinney. The patient's medical history is asfollows: Juliette is a 49-year-old well-known to the wound center who presented due to decubitus ulcers. She has a history of spinal bifida and paraplegia. She currently resides in a [facility]. Her family noted bleeding on her underwear during routine care and subsequently examined her buttock area where they noted some blisters and open areas. Since then, they had been applying Vaseline to the area and subsequently presented here. She has been relatively stable. No history of diabetes mellitus or tobacco use. She has been having more daily bowel movements however no significant watery bowel movementsor concern for fecal contamination. She feels well otherwise. [facility] Medical History Decubitus ulcer of right buttock, stage 3 Decubitus ulcer of left buttock, stage 3 UTI (urinary tract infection) GI problem Kidney stone Seasonal allergies Wears glasses Depression Uses wheelchair History of urinary self-catheterization Back pain Constipation Gastric reflux Non-smoker BiPAP (biphasic positive airway pressure) dependence Asthma History of edema History of echocardiogram Hx of back injury Acquired scoliosis Spina bifida Home Medications ?Medication ?Instructions ?Recorded ?Last Taken ?Type multivitamin with folic acid 400 1 tab PO QHS general health 04/24/13 09/25/20 17:30 History mcg tablet (Thera) omeprazole 20 mg capsule,delayed 20 mg PO QHS acid ref lux 03/11/18 09/25/20 17:30 History release aspirin 81 mg chewable tablet 81 mg PO DAILY@0800 10/0 02/2111/02/21 Rx potassium citrate 15 mEq (1,620 15 meq PO BID ##60 09/25/20 17:30 Rx mg) tablet,extended release Bacillus coagulans 10 billion cell 1 each PO QHS [facility] E [facility] 09/11/20 09/25/20 17:30 History capsule,delayed release polyethylene glycol 3350 17 gram 17 gm PO DAILY PRN KS N Constipation 09/14/20 09/25/20 17:30 History oral powder packet budesonide 0.25 mg/2 mL suspension 0.25 mg inhalation BID 10/28/21 Unknown History for nebulization bisacodyl 5 mg tablet 5 mg PO .once weekly 5 Unknown History docusate sodium 100 mg tablet 100 mg PO BID 08/21/24 U nknown History (Stool Softener) loratadine 10 mg tablet 10 mg PO QDAY 08/21/24 Unkno wn History mineral oil (Fleet Mineral Oil 118 ml [place] .QTUFR Unknown History enema) mupirocin calcium 2 % topical cream 1 applic topical B ID 08/21/24 Unknown History ondansetron HCl 4 mg tablet 4 mg PO .COMPLEX #10 tabs 08/21/24 Unknown Rx oxybutynin chloride 15 mg 5 mg PO TID BLADDER 08/21/24 Unknown History tablet,extended release 24 hr peg 3350-electrolytes 236 240 ml PO Q10M #4,000 mL Unknown Rx gram-22.74 gram-6.74 gram-5.86 gram solution (Golytely) psyllium husk 0.52 gram capsule 0.52 g PO QDAY 5 Unknown History (Fiber Laxative (psyllium husk)) sertraline 50 mg tablet 50 mg PO QDAY 08/21/24 Unkno wn History lubiprostone 24 mcg capsule 24 mcg PO BID constipation #60 caps 09/04/24 Unknown Rx (Amitiza) Allergy/AdvReac Type Severity Reaction Status Date / Time amoxicillin (From Augmentin) AdvReac Diarrhea Verified 11/04/21 13:39 azithromycin (From Zithromax AdvReac Diarrhea Verified 11/04/21 13:39 Z-Turner) ciprofloxacin (From Cipro) AdvReac Pain in Verified 11/04/21 13:39 joints clavulanic acid (From AdvReac Diarrhea Verified 11/04/21 13:39 Augmentin) Surgical History History of incision and drainage Hx of eye surgery Hx of ileostomy History of brain shunt History of cystoscopy Hx of cholecystectomy Social History Smoking Status: Never smoker Vital Signs Vital Signs Vital Signs: 11/29/24 10:50 Temperature 98.2 F Temperature Source Temporal Pulse Rate 100 Respiratory Rate 18 Blood Pressure 118/83 H Blood Pressure Mean 94 Blood Pressure Source Monitor Blood Pressure Position Semi-Fowlers Blood Pressure Location Right Arm Oxygen Delivery Method Room Air Physical Exam Const alert, oriented x3 and no apparent distress General Appearance: cooperative and well kempt Orientation / Consciousness: awake HEENT normocephalic and head/scalp atraumatic Head and Scalp: normal to inspection and atraumatic Nose: external nose normal External Ear: external ears normal Resp normal respiratory effort, normal air movement, no retractions and no use of accessory muscles Effort and Inspection: able to speak in complete sentences Extremity Extremity Narrative: Lower extremities are atrophic. Skin Wounds: wounds noted size Size: See clinical note, bed with slough, no odor, open and surrounding erythema Wound Narrative: Stage II/III pressure ulcerations are noted in the perineal area. These are located on the sacrum, and in the ischial areas bilaterally. There is 1 pressure ulceration on the right ischium. There are2 separate ulcerations on the left ischial area. The base of the ulcerations are generally pink andhealthy in appearance, with a small amount of bioburden. Ulcer margins are wellbeveled. There is noovert sign of infection or cellulitis. Dimensions of eachulceration are documented elsewhere. Neuro oriented x3 and CN's II-XII intact bilaterally Neuro Narrative: The patient is paraplegic. Sensorium / Orientation: awake and alert Psych mental status grossly normal, cooperative and affect normal Appearance: grossly normal Attitude: calm Speech: normal speech Debridement Note Debridement Note Wound debrided: Left ischial ulcerations x 2 Laterality: Left Wound Grade/Stage: Stage II/III Type of Debridement: Excisional debridement Anesthesia Used: 5% Lidocaine Gel Depth: Down to and including healthy tissue and in the subcutaneous layer Percentage of wound debrided: 100 Instrument Used: 3mm curette Tissue Removed: Bioburden Severity: Fat Layer Exposed Amount of bleeding with debridement: Mild Bleeding Controlled with: Compression and gauze Patient tolerated procedure: Patient tolerated procedure well Post-Debridement Measurements and Additional Note: Post-Debridement Measurements/Treatment - Nurse 1 - General Ulcer Assessment Start: 11/22/24 10:38 Freq: Status: Active Protocol: [email or web address] Activity Type Activity Date Activity User E-sign Co-sign Detail Recorded Client Recorded Date Recorded By Document 11/22/24 10:48 [id number] 11/22/24 10:52 DS Document 11/29/24 10:50 DS [id number] 11/29/24 11:07 DS 11/22/24 11/29/24 10:48 10:50 - Today's Visit Information Type of service Initial Visit 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 ) Arrival Mode Wheelchair Wheelchair Transfer Assistance Manual Patient Identification Verified (Name & Yes ) Patient Requires Transmission-Based No No Precautions Safety Precautions Fall Prevention Fall Prevention Vital Signs Temperature (97.8 F-99.1 F) 98.4 F 98.2 F Temperature Source Temporal Temporal Pulse Rate (60-100) 87 100 Pulse Location Monitor Respiratory Rate (12-18) 18 18 Respiratory rate source Observation Observation Oxygen Delivery Method Nasal Cannula Room Air Blood Pressure (90/60-120/80) 139/103 H 118/83 H Blood Pressure Mean 115 94 Source Monitor Monitor Position Semi-Fowlers Semi-Fowlers Blood Pressure Location Right Arm Right Arm Pain Scale: 0-10 Numeric Is Patient Pain Free? Yes Yes Communication Assessment Preferred language Latvian 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 No Able to Read Yes Able to Write Yes Right Hearing Abillity Normal Left Hearing Abillity Normal Visual Assistive Devices Glasses Teaching Assessment Preferences Verbal,Written, Demonstration Barriers to Learning Knowledge Deficit Readiness To Learn Good Willingness to Engage in Self Management Med Activies Readiness to Engage in Self Management Med Activities Anxiety Level Calm Cooperation Cooperative Perception Coherent Interest in Health Problem Uninterested Education Importance Acknowledges Need Does Patient Smoke tobacco or other No substances Is Patient Diabetic No Functional Assessment Recent Decline in Ability to Perform Denies Any Declines List Device(s) with Patient family support Culture/Hinduism/Public Health Clinical Nurse Specialist Cultural/Hinduism Needs that may affect No Treatment Plan Teaching: Wound Center *Welcome to the Wound Center -Person Taught Patient,Family, Significant Other -Teaching Method Discussion -Response to teaching Verbalize Understanding WC - Nurse 1 - General Ulcer Measurement Start: 11/22/24 10:38 Freq: Status: Active Protocol: Activity Type Activity Date Activity User E-sign Co-sign Detail Recorded Client Recorded Date Recorded By Document 11/22/24 11:09 DS [id number] 11/22/24 11:13 DS Document 11/29/24 10:50 DS [id number] 11/29/24 11:07 DS 11/22/24 11/29/24 11:09 10:50 Wound Center Nurse 1 #10 rectum -Current Size (cm) - Length 0.9 -Current Size (cm) - Width 1.4 -Current Size (cm) - Depth 0.1 -Total Square Cm 1.26 -Date of Last Picture (Recall this 11/22/24 field) -Photo Taken Yes -Tunneling No -Undermining/Tunneling No -Circular Undermining No -Exudate Amt None Present -Wound Margin Distinct, Outline Attached -Granulation Amt Large (67-100%) -Granulation Quality [place] -Slough/Fibrin No -Texture (Patience-wound Skin Appearance) Assessed -Moisture (Patience-wound Skin Appearance) Assessed -Color (Patience-wound Skin Appearance) Assessed -Temperature (Patience-wound Skin No Abnormality Appearance) (Pt Warm) -Ulcer Cleansing Soap and Water -Foul Odor after Cleansing No -Anesthetic Used 5% Lidocaine Gel #9 left superior ischium -Current Size (cm) - Length 2.1 -Current Size (cm) - Width 3.8 -Current Size (cm) - Depth 0.1 -Total Square Cm 7.98 -Date of Last Picture (Recall this 11/22/24 field) -Photo Taken Yes -Tunneling No -Undermining/Tunneling No -Circular Undermining No -Exudate Amt None Present -Wound Margin Distinct, Outline Attached -Granulation Amt Large (67-100%) -Granulation Quality Red -Slough/Fibrin No -Texture (Patience-wound Skin Appearance) Assessed -Moisture (Patience-wound Skin Appearance) Assessed -Color (Patience-wound Skin Appearance) Assessed -Temperature (Patience-wound Skin No Abnormality Appearance) (Pt Warm) -Tenderness on Palpation (Patience-wound No Skin Appearance) -Ulcer Cleansing Soap and Water -Foul Odor after Cleansing No -Anesthetic Used 5% Lidocaine Gel #8 left inferior ischium -Current Size (cm) - Length 2.1 -Current Size (cm) - Width 6.0 -Current Size (cm) - Depth 0.1 -Total Square Cm 12.60 -Date of Last Picture (Recall this 11/22/24 field) -Photo Taken Yes -Tunneling No -Undermining/Tunneling No -Circular Undermining No -Exudate Amt None Present -Wound Margin Distinct, Outline Attached -Granulation Amt Large (67-100%) -Granulation Quality Red -Slough/Fibrin No -Texture (Patience-wound Skin Appearance) Assessed -Moisture (Patience-wound Skin Appearance) Assessed -Color (Patience-wound Skin Appearance) Assessed -Temperature (Patience-wound Skin No Abnormality Appearance) (Pt Warm) -Tenderness on Palpation (Patience-wound No Skin Appearance) -Ulcer Cleansing Soap and Water -Foul Odor after Cleansing No -Anesthetic Used 5% Lidocaine Gel #7 right ischiu -Current Size (cm) - Length 1.8 -Current Size (cm) - Width 3.0 -Current Size (cm) - Depth 0.1 -Total Square Cm 5.40 -Date of Last Picture (Recall this 11/22/24 field) -Photo Taken Yes -Tunneling No -Undermining/Tunneling No -Circular Undermining No -Exudate Amt None Present -Wound Margin Distinct, Outline Attached -Granulation Amt Large (67-100%) -Granulation Quality [place] -Slough/Fibrin No -Texture (Patience-wound Skin Appearance) Assessed -Moisture (Patience-wound Skin Appearance) Assessed -Color (Patience-wound Skin Appearance) Assessed -Temperature (Patience-wound Skin No Abnormality Appearance) (Pt Warm) -Ulcer Cleansing Soap and Water -Foul Odor after Cleansing No -Anesthetic Used 5% Lidocaine Gel #8 Right ishium cluster -Current Size (cm) - Length 1.5 -Current Size (cm) - Width 2.5 -Current Size (cm) - Depth 0.1 -Total Square Cm 3.75 -Date of Last Picture (Recall this 11/29/24 field) -Photo Taken Yes -Tunneling No -Undermining/Tunneling No -Circular Undermining No -Exudate Amt Medium -Exudate Type Serosanguineous -Wound Margin Distinct, Outline Attached -Granulation Amt Large (67-100%) -Granulation Quality Red -Necrosis Amt None Present (0 %) -Texture (Patience-wound Skin Appearance) Assessed -Moisture (Patience-wound Skin Appearance) Assessed -Color (Patience-wound Skin Appearance) Assessed -Temperature (Patience-wound Skin No Abnormality Appearance) (Pt Warm) -Tenderness on Palpation (Patience-wound No Skin Appearance) -Ulcer Cleansing Soap and Water -Anesthetic Used 5% Lidocaine Gel #7 L Ishium cluster -Current Size (cm) - Length 5.0 -Current Size (cm) - Width 5.0 -Current Size (cm) - Depth 0.1 -Total Square Cm 25.00 -Date of Last Picture (Recall this 11/29/24 field) -Photo Taken Yes -Tunneling No -Undermining/Tunneling No -Circular Undermining No -Exudate Amt Medium -Exudate Type Serosanguineous -Granulation Amt Large (67-100%) -Granulation Quality [place] -Necrosis Amt Small (1-33%) -Necrotic Tissue Type Adherent Slough -Texture (Patience-wound Skin Appearance) Assessed -Moisture (Patience-wound Skin Appearance) Assessed -Color (Patiecne-wound Skin Appearance) Assessed -Temperature (Patience-wound Skin No Abnormality Appearance) (Pt Warm) -Tenderness on Palpation (Patience-wound No Skin Appearance) -Ulcer Cleansing Soap and Water -Anesthetic Used 5% Lidocaine Gel #6- sacrum -Current Size (cm) - Length 2.0 -Current Size (cm) - Width 1.0 -Current Size (cm) - Depth 0.1 -Total Square Cm 2.00 -Date of Last Picture (Recall this 11/29/24 field) -Photo Taken Yes -Tunneling No -Undermining/Tunneling No -Circular Undermining No -Exudate Amt Medium -Exudate Type Serosanguineous -Wound Margin Distinct, Outline Attached -Granulation Amt Large (67-100%) -Granulation Quality [place] -Texture (Patience-wound Skin Appearance) Assessed -Moisture (Patience-wound Skin Appearance) Assessed -Color (Patience-wound Skin Appearance) Assessed -Temperature (Patience-wound Skin No Abnormality Appearance) (Pt Warm) -Tenderness on Palpation (Patience-wound No Skin Appearance) -Ulcer Cleansing Soap and Water -Anesthetic Used 5% Lidocaine Gel WC - Nurse 2 - General Ulcer CM Notes Start: 11/22/24 10:38 Freq: Status: Active Protocol: Activity Type Activity Date Activity User E-sign Co-sign Detail Recorded Client Recorded Date Recorded By Document 11/22/24 11:12 GM [id number] 11/22/24 11:33 GM Document 11/29/24 11:19 GM [id number] 11/29/24 11:24 GM Edit Result 11/29/24 11:19 GM (1) [id number] 11/29/24 11:28 GM (1) #8 Right ishium cluster - Post Debridement (cm) - Length => 1.5 - Post Debridement (cm) - Width => 2.5 - Post Debridement (cm) - Depth => 0.1 - Total Square (Post) (cm) => 3.75 - Area of Debridement (cm) - Length => 1.5 - Area of Debridement (cm) - Width => 2.5 - Total Square (Area) (cm) => 3.75 #7 L Ishium cluster - Post Debridement (cm) - Length => 5.0 - Post Debridement (cm) - Width => 5.0 - Post Debridement (cm) - Depth => 0.1 - Total Square (Post) (cm) => 25.00 - Area of Debridement (cm) - Length => 5.0 - Area of Debridement (cm) - Width => 5.0 - Total Square (Area) (cm) => 25.00 #6- sacrum - Post Debridement (cm) - Length => 2.0 - Post Debridement (cm) - Width => 1.0 - Post Debridement (cm) - Depth => 0.1 - Total Square (Post) (cm) => 2.00 - Area of Debridement (cm) - Length => 2.0 - Area of Debridement (cm) - Width => 1.0 - Total Square (Area) (cm) => 2.00 - Debridement, SubQ, ea addt'l 20sq cm => 1 or part thereof 11/22/24 11/29/24 11:12 11:19 Wound Center Nurse 2 #8 Right [facility] cluster -Time 11:32 11:21 -Correct Patient Yes Yes -Correct Side, Site, Position Yes Yes -Correct Procedure Yes Yes -Procedure Performed Yes Yes -Type of Procedure Debridement Debridement -Clinical Debridement Subcutaneous Subcutaneous -Tissue Removed Subcutaneous Subcutaneous -Post Debridement (cm) - Length 3.4 1.5 -Post Debridement (cm) - Width 3.3 2.5 -Post Debridement (cm) - Depth 0.1 0.1 -Total Square (Post) (cm) 11.22 3.75 -Area of Debridement (cm) - Length 3.4 1.5 -Area of Debridement (cm) - Width 3.3 2.5 -Total Square (Area) (cm) 11.22 3.75 -Tunneling No No -Undermining/Tunneling No No -Circular Undermining No No -Wound/Ulcer Outcome Not Healed Not Healed -Ulcer Cleansing Rinsed/ Rinsed/ Irrigated with Irrigated with Saline Saline -Foul Odor after Cleansing No No -Bioengineered Tissue No No -Bleeding Controlled with Pressure Pressure -Treatment Response Procedure Procedure Tolerated Well Tolerated Well -Offloading No -Debridement - Subq, 1st 20sq cm Yes No -Debridement, SubQ, ea addt'l 20sq cm 2 or part thereof #7 L [facility] cluster -Time 11:18 11:21 -Correct Patient Yes Yes -Correct Side, Site, Position Yes Yes -Correct Procedure Yes Yes -Procedure Performed Yes Yes -Type of Procedure Debridement Debridement -Clinical Debridement Subcutaneous Subcutaneous -Tissue Removed Subcutaneous Subcutaneous -Post Debridement (cm) - Length 6.0 5.0 -Post Debridement (cm) - Width 6.0 5.0 -Post Debridement (cm) - Depth 0.1 0.1 -Total Square (Post) (cm) 36.00 25.00 -Area of Debridement (cm) - Length 6.0 5.0 -Area of Debridement (cm) - Width 6.0 5.0 -Total Square (Area) (cm) 36.00 25.00 -Tunneling No No -Undermining/Tunneling No No -Circular Undermining No No -Wound/Ulcer Outcome Not Healed Not Healed -Ulcer Cleansing Rinsed/ Rinsed/ Irrigated with Irrigated with Saline Saline -Foul Odor after Cleansing No No -Bioengineered Tissue No No -Bleeding Controlled with Pressure Pressure -Treatment Response Procedure Procedure Tolerated Well Tolerated Well -Offloading No No -Debridement - Subq, 1st 20sq cm No No #6- sacrum -Time 11:12 11:22 -Correct Patient Yes Yes -Correct Side, Site, Position Yes Yes -Correct Procedure Yes Yes -Procedure Performed Yes Yes -Type of Procedure Debridement Debridement -Clinical Debridement Subcutaneous Subcutaneous -Tissue Removed Subcutaneous Subcutaneous -Post Debridement (cm) - Length 1.0 2.0 -Post Debridement (cm) - Width 0.4 1.0 -Post Debridement (cm) - Depth 0.1 0.1 -Total Square (Post) (cm) 0.40 2.00 -Area of Debridement (cm) - Length 1.0 2.0 -Area of Debridement (cm) - Width 0.4 1.0 -Total Square (Area) (cm) 0.40 2.00 -Tunneling No No -Undermining/Tunneling No No -Circular Undermining No No -Wound/Ulcer Outcome Not Healed Not Healed -Ulcer Cleansing Rinsed/ Rinsed/ Irrigated with Irrigated with Saline Saline -Foul Odor after Cleansing No No -Bioengineered Tissue No No -Bleeding Controlled with Pressure Pressure -Treatment Response Procedure Procedure Tolerated Well Tolerated Well -Offloading No -Debridement - Subq, 1st 20sq cm No Yes -Debridement, SubQ, ea addt'l 20sq cm 1 or part thereof Pain Scale: 0-10 Numeric Is Patient Pain Free? Yes Yes WC - Nurse 3 - General Ulcer D/C NN Start: 11/22/24 10:38 Freq: Status: Active Protocol: Activity Type Activity Date Activity User E-sign Co-sign Detail Recorded Client Recorded Date Recorded By Document 11/22/24 11:47 DS [id number] 11/22/24 11:54 DS Edit Result 11/22/24 11:47 DS (1) [id number] 11/22/24 12:01 DS Document 11/29/24 11:28 GM [id number] 11/29/24 11:32 GM (1) #7 L Ishium cluster - Fibracol Plus 4x4 0 => 1 11/22/24 11/29/24 11:47 11:28 Wound Care Center Nurse 3 #8 Right ishium cluster -Ulcer Cleansing Not Cleansed -Foul Odor after Cleansing No -Primary Dressing Applied Fibracol Plus Fibracol Plus 4x4,Silicone 4x4,Silicone Border Foam 6x6 Border Foam 4x4 -Fibracol Plus 4x4 1 1 -Silicone Border Foam 4x4 1 -Silicone Border Foam 6x6 1 #7 L Ishium cluster -Ulcer Cleansing Not Cleansed -Foul Odor after Cleansing No -Primary Dressing Applied Fibracol Plus Silicone Border 4x4,Silicone Foam 4x4 Border Foam 4x4 -Fibracol Plus 4x4 1 -Silicone Border Foam 4x4 1 1 #6- sacrum -Ulcer Cleansing Not Cleansed -Foul Odor after Cleansing No -Negative Pressure Wound Therapy N/A -Primary Dressing Applied Fibracol Plus Silicone Border 4x4,Silicone Foam 4x4 Border Foam 4x4 -Fibracol Plus 4x4 0 -Silicone Border Foam 4x4 1 1 Pain Scale: 0-10 Numeric Is Patient Pain Free? Yes Yes WC - Visit Discharge Discharge Condition Stable Stable Ambulatory Status Wheelchair Wheelchair Transportation Private Auto Private Auto Accompanied by mother/sister Additional Wound Wound debrided: Right ischial pressure ulceration Laterality: Right Wound Grade/Stage: Stage II/III Type of Debridement: Excisional debridement Anesthesia Used: 5% Lidocaine Gel Depth: Down to and including healthy tissue and in the subcutaneous layer Percentage of wound debrided: 100 Instrument Used: 3mm curette Tissue Removed: Bioburden Severity: Fat Layer Exposed Amount of bleeding with debridement: Mild Bleeding Controlled with: Compression and gauze Patient tolerated procedure: Patient tolerated procedure well Additional Wound Wound debrided: Sacral pressure ulceration Laterality: Not Applicable Wound Grade/Stage: Stage III Type of Debridement: Excisional debridement Anesthesia Used: 5% Lidocaine Gel Depth: Down to and including healthy tissue and in the subcutaneous layer Percentage of wound debrided: 100 Instrument Used: 3mm curette Tissue Removed: Bioburden Severity: Fat Layer Exposed Amount of bleeding with debridement: Mild Bleeding Controlled with: Compression and gauze Patient tolerated procedure: Patient tolerated procedure well Lab / Micro Data Micro: Microbiology 11/22/24 11:30 Wound - Ischium Gram Stain - Final 11/22/24 11:30 Wound - Ischium Wound Culture - Final Citrobacter freundii Klebsiella aerogenes Corynebacterium striatum Enterococcus faecalis 11/22/24 11:30 Wound - Ischium Anaerobic Culture - Final Cutibacterium granulosum Anaerobic cocci Charges/Coding Procedures Integumentary Add On Codes: 87947 Sherlyn subq tissue add-on Multi Select Codes Visit Charges Office Visit/Consults: 65081 OV L4 New 45 min Integumentary Integumentary CPT Codes: 02812 Sherlyn subq tissue 20 sq cm/< Assessment/Plan Assessment/Plan (1) Pressure ulcer of sacral region, stage 3: CODE(S): L89.153 - Pressure ulcer of sacral region, stage 3 (2) Decubitus ulcer of left buttock, stage 3: CODE(S): L89.323 - Pressure ulcer of left buttock, stage 3 (3) Decubitus ulcer of right buttock, stage 3: CODE(S): L89.313 - Pressure ulcer of right buttock, stage 3 (4) Spina bifida: CODE(S): Q05.9 - Spina bifida, unspecified PLAN: Plan This is a 49-year-old female with spina bifida and lower extremity paraplegia. She is accompanied by her mother and a caregiver from her [facility]. It is ascertained that offloading measures have been implemented, and the patient usesa Roho cushion on her wheelchair. We have reviewed the importance of offloadingin detail today. Moistened Fibricol is currently being used topically on a daily basis, and is to continue. Daily cleansing with an antibacterial soap is also to continue. Nutritional optimization has been discussed, and the patient encouraged to consume a healthy, high-protein diet. The patient is not known vishnu diabetic, and she does not smoke. The patient is incontinent of urine,and currently has a urinary suprapubic catheter. She is incontinent of stool, and caregivers have been instructed to maintain optimal hygiene to the perineal area. A wound culture was obtained on November 22, 2024, the results of which have isolated Citrobacter freundii, Klebsiella aerogenes, Corynebacterium stratum, Enterococcus faecalis, Cutibacterium granulosum, and anaerobic cocci. Based upon sensitivity results, the patient is to be placed on a week-long course of Augmentin 875 mg twice daily,and Bactrim double strength twice daily. The patient is to follow-up in [address] Kinney. Total time: 48 minutes 11/29/24 1704 Cosigner Signature (if applicable): CC: ~ Signed [facility]06-26-2025 Evaluation note* Diagnosis Onset Date Resolution Status Admit Date Decubitus ulcer of left buttock, stage 3 acute November 29, 2024 10:30am Decubitus ulcer of right buttock, stage 3 acute November 29, 2024 10:30am Pressure ulcer of sacral region, stage 3 chronic November 29, 2024 10:30am Spina bifida chronic November 29, 025 10:30am Decubitus ulcer of left buttock, stage 3 acute December 13, 2024 10:45am Decubitus ulcer of right buttock, stage 3 acute December 13, 2024 10:45am Pressure ulcer of sacral region, stage 3 chronic December 13, 2024 10:45am Spina bifida chronic December 13, 10:45am Pressure ulcer of sacral region, stage 3 chronic January 03, 2025 8:08am Spina bifida chronic January 03, 8:08am [facility] Work Phone: 1([phone]) 552-811906-26-2025 Evaluation note* Diagnosis Onset Date Resolution Status Admit Date Decubitus ulcer of left buttock, stage 3 acute November 29, 2024 10:30am Decubitus ulcer of right buttock, stage 3 acute November 29, 2024 10:30am Pressure ulcer of sacral region, stage 3 chronic November 29, 2024 10:30am Spina bifida chronic November 29, 10:30am Decubitus ulcer of left buttock, stage 3 acute December 13, 2024 10:45am Decubitus ulcer of right buttock, stage 3 acute December 13, 2024 10:45am Pressure ulcer of sacral region, stage 3 chronic December 13, 2024 10:45am Spina bifida chronic December 13, 025 10:45am Pressure ulcer of sacral region, stage 3 chronic January 03, 2025 8:08am Spina bifida chronic January 03, 025 8:08am Pressure ulcer of sacral region, stage 3 chronic January 17 10:15am Spina bifida chronic January 17, 2025 10:15am Constipation acute January 22, 2025 8:42am [facility] Work Phone: 1(139) 230-929806-26-2025 Evaluation note* Diagnosis Onset Date Resolution Status Admit Date Decubitus ulcer of left buttock, stage 3 acute November 29, 2024 10:30am Decubitus ulcer of right buttock, stage 3 acute November 29, 2024 10:30am Pressure ulcer of sacral region, stage 3 chronic November 29, 2024 10:30am Spina bifida chronic November 29, 025 10:30am Decubitus ulcer of left buttock, stage 3 acute December 13, 2024 10:45am Decubitus ulcer of right buttock, stage 3 acute December 13, 2024 10:45am Pressure ulcer of sacral region, stage 3 chronic December 13, 2024 10:45am Spina bifida chronic December 13, 10:45am Pressure ulcer of sacral region, stage 3 chronic January 03, 2025 8:08am Spina bifida chronic January 03, 025 8:08am Constipation acute January 22, 2025 8:42am Pressure ulcer of sacral region, stage 3 chronic January 24 10:00am Spina bifida chronic January 24, 2025 10:00am GERD (gastroesophageal reflu x disease) acute January 30 8:57am Chronic idiopathic constipation lunchroom mother alicja January 30, 2025 8:57am [facility] Work Phone: 1([phone]) 970-545106-26-2025 Evaluation note* Diagnosis Onset Date Resolution Status Admit Date Decubitus ulcer of left buttock, stage 3 acute November 29, 2024 10:30am Decubitus ulcer of right buttock, stage 3 acute November 29, 2024 10:30am Pressure ulcer of sacral region, stage 3 chronic November 29, 2024 10:30am Spina bifida chronic November 29, 025 10:30am Decubitus ulcer of left buttock, stage 3 acute December 13, 2024 10:45am Decubitus ulcer of right buttock, stage 3 acute December 13, 2024 10:45am Pressure ulcer of sacral region, stage 3 chronic December 13, 2024 10:45am Spina bifida chronic December 13, 025 10:45am Pressure ulcer of sacral region, stage 3 chronic January 03, 2025 8:08am Spina bifida chronic January 03, 2 025 8:08am Constipation acute January 22, 2025 8:42am GERD (gastroesophageal reflu x disease) acute January 30 8:57am Chronic idiopathic constipation lunchroom mother alicja January 30, 2025 8:57am Pressure ulcer of sacral region, stage 3 chronic January 31 10:00am Spina bifida chronic January 31, 2025 10:[address] [facility] Work Phone: 1([phone]) 542-307306-26-2025 Evaluation note* Diagnosis Onset Date Resolution Status Admit Date Decubitus ulcer of left buttock, stage 3 acute November 29, 2024 10:30am Decubitus ulcer of right buttock, stage 3 acute November 29, 2024 10:30am Pressure ulcer of sacral region, stage 3 chronic November 29, 2024 10:30am Spina bifida chronic November 29, 10:30am Decubitus ulcer of left buttock, stage 3 acute December 13, 2024 10:45am Decubitus ulcer of right buttock, stage 3 acute December 13, 2024 10:45am Pressure ulcer of sacral region, stage 3 chronic December 13, 2024 10:45am Spina bifida chronic December 13, 025 10:45am Pressure ulcer of sacral region, stage 3 chronic January 03, 2025 8:08am Spina bifida chronic January 03, 025 8:08am Constipation acute January 22, 2025 8:42am GERD (gastroesophageal reflu x disease) acute January 30 8:57am Chronic idiopathic constipation chronic January 30 8:57am Pressure ulcer of sacral region, stage 3 chronic January 31 10:00am Spina bifida chronic January 31, 2025 10:00am Pressure ulcer of sacral region, stage 3 chronic February 21, 2025 10:30am Spina bifida chronic February 212024 10:30am [facility] Work Phone: [phone]) [phone] History and physical note Author Savannah Kinney [facility] Note Date/Time November 23, 2024 5:[address] [facility] [place] [address] H&P Exam - Wound Care 11/22/24 1938 MR#: [id number] Acct: [id number] Name: JULIETTE CREWS RAI Rep #:[id number] : 1975 49 From: Savannah neri MD PCP: Kassie Polanco [employer] MANAGEREllie Status:REG R CR Location: History of Present Illness Date of Service: 11/22/24 Chief Complaint: Recurrent decubitus buttock and sacral ulcers History of Wound: Juliette is a 49-year-old well-known to the wound center who presents today due to decubitus ulcers. History of spinal bifida and paraplegia. Currently resides in a home. Family noted bleeding on her underwear during routine care and subsequently examined her buttock area where they noted some blisters and open areas. Since then, they have been applying Vaseline to the area and subsequently presented here. Has been relatively stable. No history of diabetes mellitus or tobacco use. Has been having more daily bowel movements however no significant watery bowel movements or concern for fecal contamination. Feels well otherwise. [facility] Medical History (Updated 11/22/24 @ 20:[address] Saavnnah Kinney MD) Decubitus ulcer of right buttock, stage 3 Decubitus ulcer of left buttock, stage 3 UTI (urinary tract infection) GI problem Kidney stone Seasonal allergies Wears glasses Depression Uses wheelchair History of urinary self-catheterization Back pain Constipation Gastric reflux Non-smoker BiPAP (biphasic positive airway pressure) dependence Asthma History of edema History of echocardiogram Hx of back injury Acquired scoliosis Spina bifida Home Medications ?Medication ?Instructions ?Recorded ?Last Taken ?Type multivitamin with folic acid 400 1 tab PO QHS general health 04/24/13 09/25/20 17:30 History mcg tablet (Thera) omeprazole 20 mg capsule,delayed 20 mg PO QHS acid ref lux 03/11/18 09/25/20 17:30 History release aspirin 81 mg chewable tablet 81 mg PO DAILY@0800 10/02/2111/02/21 Rx potassium citrate 15 mEq (1,620 15 meq PO BID ##60 09/25/20 17:30 Rx mg) tablet,extended release Bacillus coagulans 10 billion cell 1 each PO QHS IMMUN E HEALTH 09/11/20 09/25/20 17:30 History capsule,delayed release polyethylene glycol 3350 17 gram 17 gm PO DAILY PRN KS N Constipation 09/14/20 09/25/20 17:30 History oral powder packet budesonide 0.25 mg/2 mL suspension 0.25 mg inhalation BID 10/28/21 Unknown History for nebulization bisacodyl 5 mg tablet 5 mg PO .once weekly 5 Unknown History docusate sodium 100 mg tablet 100 mg PO BID 08/21/24 U nknown History (Stool Softener) loratadine 10 mg tablet 10 mg PO QDAY 08/21/24 Unkno wn History mineral oil (Fleet Mineral Oil 118 ml [place] .QTUFR Unknown History enema) mupirocin calcium 2 % topical cream 1 applic topical B ID 08/21/24 Unknown History ondansetron HCl 4 mg tablet 4 mg PO .COMPLEX #10 tabs 08/21/24 Unknown Rx oxybutynin chloride 15 mg 5 mg PO TID BLADDER 08/21/24 Unknown History tablet,extended release 24 hr peg 3350-electrolytes 236 240 ml PO Q10M #4,000 mL Unknown Rx gram-22.74 gram-6.74 gram-5.86 gram solution (Golytely) psyllium husk 0.52 gram capsule 0.52 g PO QDAY 5 Unknown History (Fiber Laxative (psyllium husk)) sertraline 50 mg tablet 50 mg PO QDAY 08/21/24 Unkno wn History lubiprostone 24 mcg capsule 24 mcg PO BID constipation #60 caps 09/04/24 Unknown Rx (Amitiza) Allergy/AdvReac Type Severity Reaction Status Date / Time amoxicillin (From Augmentin) AdvReac Diarrhea Verified 11/04/21 13:39 azithromycin (From Zithromax AdvReac Diarrhea Verified 11/04/21 13:39 Z-Turner) ciprofloxacin (From Cipro) AdvReac Pain in Verified 11/04/21 13:39 joints clavulanic acid (From AdvReac Diarrhea Verified 11/04/21 13:39 Augmentin) Surgical History History of incision and drainage Hx of eye surgery Hx of ileostomy History of brain shunt History of cystoscopy Hx of cholecystectomy Social History Smoking Status: Never smoker ROS Constitutional Constitutional: Denies body ache(s), change in weight, frequent falls, headache(s), increased appetite, poor appetite or snoring Eyes Eyes: Denies change in vision, decreased night vision, discharge from eye(s), exophthalmos, halo effect, itchy eyes, loss of central vision or loss of peripheral vision ENT HEENT: Denies dysphagia, ear discharge, facial pain, halitosis, headache(s), nasal congestion or nasal obstruction Cardiovascular Cardiovascular: Denies clubbing, cyanosis, diaphoresis, dyspnea at rest, dyspneaon exertion, easily tiring during activity or erythema on extremities Respiratory/Chest Respiratory/Chest: Denies dyspnea, dyspnea on exertion, hemoptysis, hoarseness, inability to speak, nail bed cyanosis or patience-oral cyanosis Gastrointestinal Gastrointestinal: Denies chewing difficulty, coffee ground emesis, constipation,cramping, diarrhea, dry heaves or dyspepsia Genitourinary Genitourinary: Denies abdominal discomfort, anuria, burning urination, difficulty urinating, dysuria or genital lesions Musculoskeletal Musculoskeletal: Denies joint stiffness, joint swelling, loss of height, muscle cramps, muscle spasms or muscle weakness Integumentary Integumentary: Denies erythema, furuncle, hirsutism, jaundice, lesions, nail changes or new lesions Neurologic Neurologic: Denies burning sensations, confusion, convulsions, disequilibrium, dizziness, focal weakness or frequent falls Psychiatric Psychiatric: Denies change in appetite, confusion, depression, difficulty concentrating, hallucinations, homicidal ideation or hopelessness Endocrine Endocrinology: Denies deepening of the voice, flushing, heat intolerance, palpitations, polydipsia, polyphagia or polyuria Allergic/Immunologic Allergic/Immunologic: Denies lip swelling, seasonal rhinorrhea, tongue swelling,hives, urticaria, eczemia or wheezing Vital Signs Vital Signs Vital Signs: 11/22/24 10:48 Temperature 98.4 F Temperature Source Temporal Pulse Rate 87 Respiratory Rate 18 Blood Pressure 139/103 H Blood Pressure Mean 115 Blood Pressure Source Monitor Blood Pressure Position Semi-Fowlers Blood Pressure Location Right Arm Oxygen Delivery Method Nasal Cannula Physical Exam Const alert, oriented x3 and no apparent distress General Appearance: cooperative and well kempt HEENT normocephalic and hearing grossly normal bilaterally Head and Scalp: normal to inspection and atraumatic Neck full ROM and supple Resp normal respiratory effort and normal air movement Effort and Inspection: able to speak in complete sentences Cardio regular rate, regular rhythm, S1 normal heart sound and S2 normal heart sound GI soft to palpation and non-tender Skin Wounds: wounds noted size Size: See clinical note, bed with slough, no odor, open and surrounding erythema Neuro oriented x3 and CN's II-XII intact bilaterally Psych mental status grossly normal, cooperative and affect normal Appearance: grossly normal Attitude: calm Speech: normal speech Debridement Note Debridement Note Wound debrided: Sacral Wound Grade/Stage: Stage III Type of Debridement: Excisional debridement Anesthesia Used: 5% Lidocaine Gel Depth: Down to and including healthy tissue and in the subcutaneous layer Percentage of wound debrided: 100 Instrument Used: 3mm curette Tissue Removed: Slough and devitalized tissue Severity: Fat Layer Exposed Amount of bleeding with debridement: Mild Bleeding Controlled with: Pressure Patient tolerated procedure: Patient tolerated procedure well Post-Debridement Measurements and Additional Note: Post-Debridement Measurements/Treatment [facility] Nurse 1 - General Ulcer Assessment Start: 11/22/24 10:38 Freq: Status: Active Protocol: TOBIN Activity Type Activity Date Activity User E-sign Co-sign Detail Recorded Client Recorded Date Recorded By Document 11/22/24 10:48 MALIKA [id number] 11/22/24 10:52 MALIKA 11/22/24 10:48 - Today's Visit Information Type of service Initial Visit Arrival Mode Wheelchair Transfer Assistance Manual Patient Identification Verified (Name & Yes ) Patient Requires Transmission-Based No Precautions Safety Precautions Fall Prevention Vital Signs Temperature (97.8 F-99.1 F) 98.4 F Temperature Source Temporal Pulse Rate (60-100) 87 Pulse Location Monitor Respiratory Rate (12-18) 18 Respiratory rate source Observation Oxygen Delivery Method Nasal Cannula Blood Pressure (90/60-120/80) 139/103 H Blood Pressure Mean 115 Source Monitor Position Semi-Fowlers Blood Pressure Location Right Arm Pain Scale: 0-10 Numeric Is Patient Pain Free? Yes Communication Assessment Preferred language Latvian 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 No Able to Read Yes Able to Write Yes Right Hearing Abillity Normal Left Hearing Abillity Normal Visual Assistive Devices Glasses Teaching Assessment Preferences Verbal,Written, Demonstration Barriers to Learning Knowledge Deficit Readiness To Learn Good Willingness to Engage in Self Management Med Activies Readiness to Engage in Self Management Med Activities Anxiety Level Calm Cooperation Cooperative Perception Coherent Interest in Health Problem Uninterested Education Importance Acknowledges Need Does Patient Smoke tobacco or other No substances Is Patient Diabetic No Functional Assessment Recent Decline in Ability to Perform Denies Any Declines List Device(s) with Patient family support Culture/Hinduism/Public Health Clinical Nurse Specialist Cultural/Hinduism Needs that may affect No Treatment Plan Teaching: Wound Center *Welcome to the Wound Center -Person Taught Patient,Family, Significant Other -Teaching Method Discussion -Response to teaching Verbalize Understanding WC - Nurse 1 - General Ulcer Measurement Start: 11/22/24 10:38 Freq: Status: Active Protocol: Activity Type Activity Date Activity User E-sign Co-sign Detail Recorded Client Recorded Date Recorded By Document 11/22/24 11:09 DS [id number] 11/22/24 11:13 DS 11/22/24 11:09 Wound Center Nurse 1 #10 rectum -Current Size (cm) - Length 0.9 -Current Size (cm) - Width 1.4 -Current Size (cm) - Depth 0.1 -Total Square Cm 1.26 -Date of Last Picture (Recall this 11/22/24 field) -Photo Taken Yes -Tunneling No -Undermining/Tunneling No -Circular Undermining No -Exudate Amt None Present -Wound Margin Distinct, Outline Attached -Granulation Amt Large (67-100%) -Granulation Quality [place] -Slough/Fibrin No -Texture (Patience-wound Skin Appearance) Assessed -Moisture (Patience-wound Skin Appearance) Assessed -Color (Patience-wound Skin Appearance) Assessed -Temperature (Patience-wound Skin No Abnormality Appearance) (Pt Warm) -Ulcer Cleansing Soap and Water -Foul Odor after Cleansing No -Anesthetic Used 5% Lidocaine Gel #9 left superior ischium -Current Size (cm) - Length 2.1 -Current Size (cm) - Width 3.8 -Current Size (cm) - Depth 0.1 -Total Square Cm 7.98 -Date of Last Picture (Recall this 11/22/24 field) -Photo Taken Yes -Tunneling No -Undermining/Tunneling No -Circular Undermining No -Exudate Amt None Present -Wound Margin Distinct, Outline Attached -Granulation Amt Large (67-100%) -Granulation Quality Red -Slough/Fibrin No -Texture (Patience-wound Skin Appearance) Assessed -Moisture (Patience-wound Skin Appearance) Assessed -Color (Patience-wound Skin Appearance) Assessed -Temperature (Patience-wound Skin No Abnormality Appearance) (Pt Warm) -Tenderness on Palpation (Patience-wound No Skin Appearance) -Ulcer Cleansing Soap and Water -Foul Odor after Cleansing No -Anesthetic Used 5% Lidocaine Gel #8 left inferior ischium -Current Size (cm) - Length 2.1 -Current Size (cm) - Width 6.0 -Current Size (cm) - Depth 0.1 -Total Square Cm 12.60 -Date of Last Picture (Recall this 11/22/24 field) -Photo Taken Yes -Tunneling No -Undermining/Tunneling No -Circular Undermining No -Exudate Amt None Present -Wound Margin Distinct, Outline Attached -Granulation Amt Large (67-100%) -Granulation Quality Red -Slough/Fibrin No -Texture (Patience-wound Skin Appearance) Assessed -Moisture (Patience-wound Skin Appearance) Assessed -Color (Patience-wound Skin Appearance) Assessed -Temperature (Patience-wound Skin No Abnormality Appearance) (Pt Warm) -Tenderness on Palpation (Patience-wound No Skin Appearance) -Ulcer Cleansing Soap and Water -Foul Odor after Cleansing No -Anesthetic Used 5% Lidocaine Gel #7 right ischiu -Current Size (cm) - Length 1.8 -Current Size (cm) - Width 3.0 -Current Size (cm) - Depth 0.1 -Total Square Cm 5.40 -Date of Last Picture (Recall this 11/22/24 field) -Photo Taken Yes -Tunneling No -Undermining/Tunneling No -Circular Undermining No -Exudate Amt None Present -Wound Margin Distinct, Outline Attached -Granulation Amt Large (67-100%) -Granulation Quality [place] -Slough/Fibrin No -Texture (Patience-wound Skin Appearance) Assessed -Moisture (Patience-wound Skin Appearance) Assessed -Color (Patience-wound Skin Appearance) Assessed -Temperature (Patience-wound Skin No Abnormality Appearance) (Pt Warm) -Ulcer Cleansing Soap and Water -Foul Odor after Cleansing No -Anesthetic Used 5% Lidocaine Gel WC - Nurse 2 - General Ulcer CM Notes Start: 11/22/24 10:38 Freq: Status: Active Protocol: Activity Type Activity Date Activity User E-sign Co-sign Detail Recorded Client Recorded Date Recorded By Document 11/22/24 11:12 [id number] 11/22/24 11:33 11/22/24 11:12 Wound Center Nurse 2 #8 Right [facility] cluster -Time 11:32 -Correct Patient Yes -Correct Side, Site, Position Yes -Correct Procedure Yes -Procedure Performed Yes -Type of Procedure Debridement -Clinical Debridement Subcutaneous -Tissue Removed Subcutaneous -Post Debridement (cm) - Length 3.4 -Post Debridement (cm) - Width 3.3 -Post Debridement (cm) - Depth 0.1 -Total Square (Post) (cm) 11.22 -Area of Debridement (cm) - Length 3.4 -Area of Debridement (cm) - Width 3.3 -Total Square (Area) (cm) 11.22 -Tunneling No -Undermining/Tunneling No -Circular Undermining No -Wound/Ulcer Outcome Not Healed -Ulcer Cleansing Rinsed/ Irrigated with Saline -Foul Odor after Cleansing No -Bioengineered Tissue No -Bleeding Controlled with Pressure -Treatment Response Procedure Tolerated Well -Debridement - Subq, 1st 20sq cm Yes -Debridement, SubQ, ea addt'l 20sq cm 2 or part thereof #[facility] -Time 11:18 -Correct Patient Yes -Correct Side, Site, Position Yes -Correct Procedure Yes -Procedure Performed Yes -Type of Procedure Debridement -Clinical Debridement Subcutaneous -Tissue Removed Subcutaneous -Post Debridement (cm) - Length 6.0 -Post Debridement (cm) - Width 6.0 -Post Debridement (cm) - Depth 0.1 -Total Square (Post) (cm) 36.00 -Area of Debridement (cm) - Length 6.0 -Area of Debridement (cm) - Width 6.0 -Total Square (Area) (cm) 36.00 -Tunneling No -Undermining/Tunneling No -Circular Undermining No -Wound/Ulcer Outcome Not Healed -Ulcer Cleansing Rinsed/ Irrigated with Saline -Foul Odor after Cleansing No -Bioengineered Tissue No -Bleeding Controlled with Pressure -Treatment Response Procedure Tolerated Well -Offloading No -Debridement - Subq, 1st 20sq cm No #6- sacrum -Time 11:12 -Correct Patient Yes -Correct Side, Site, Position Yes -Correct Procedure Yes -Procedure Performed Yes -Type of Procedure Debridement -Clinical Debridement Subcutaneous -Tissue Removed Subcutaneous -Post Debridement (cm) - Length 1.0 -Post Debridement (cm) - Width 0.4 -Post Debridement (cm) - Depth 0.1 -Total Square (Post) (cm) 0.40 -Area of Debridement (cm) - Length 1.0 -Area of Debridement (cm) - Width 0.4 -Total Square (Area) (cm) 0.40 -Tunneling No -Undermining/Tunneling No -Circular Undermining No -Wound/Ulcer Outcome Not Healed -Ulcer Cleansing Rinsed/ Irrigated with Saline -Foul Odor after Cleansing No -Bioengineered Tissue No -Bleeding Controlled with Pressure -Treatment Response Procedure Tolerated Well -Debridement - Subq, 1st 20sq cm No Pain Scale: 0-10 Numeric Is Patient Pain Free? Yes - Nurse 3 - General Ulcer D/C NN Start: 11/22/24 10:38 Freq: Status: Active Protocol: Activity Type Activity Date Activity User E-sign Co-sign Detail Recorded Client Recorded Date Recorded By Document 11/22/24 11:47 DS [id number] 11/22/24 11:54 DS Edit Result 11/22/24 11:47 DS (1) [id number] 11/22/24 12:01 DS (1) #7 L Ish[place] cluster - Fibracol Plus 4x4 0 => 1 11/22/24 11:47 Wound Care Center Nurse 3 #8 Right ishium cluster -Primary Dressing Applied Fibracol Plus 4x4,Silicone Border Foam 6x6 -Fibracol Plus 4x4 1 -Silicone Border Foam 6x6 1 #7 L Ish[place] cluster -Primary Dressing Applied Fibracol Plus 4x4,Silicone Border Foam 4x4 -Fibracol Plus 4x4 1 -Silicone Border Foam 4x4 1 #6- sacrum -Primary Dressing Applied Fibracol Plus 4x4,Silicone Border Foam 4x4 -Fibracol Plus 4x4 0 -Silicone Border Foam 4x4 1 Pain Scale: 0-10 Numeric Is Patient Pain Free? Yes - Visit Discharge Discharge Condition Stable Ambulatory Status Wheelchair Transportation Private Auto Accompanied by mother/sister Additional Wound Wound debrided: Right buttock cluster Wound Grade/Stage: Stage III Type of Debridement: Excisional debridement Anesthesia Used: 5% Lidocaine Gel Depth: Down to and including healthy tissue and in the subcutaneous layer Percentage of wound debrided: 100 Instrument Used: 5mm curette Tissue Removed: Slough and devitalized tissue Severity: Fat Layer Exposed Amount of bleeding with debridement: Mild Bleeding Controlled with: Pressure Patient tolerated procedure: Patient tolerated procedure well Additional Wound Wound debrided: Left buttock cluster Wound Grade/Stage: Stage III Type of Debridement: Excisional debridement Anesthesia Used: 5% Lidocaine Gel Depth: Down to and including healthy tissue and in the subcutaneous layer Percentage of wound debrided: 100 Instrument Used: 5mm curette Tissue Removed: Slough and devitalized tissue Severity: Fat Layer Exposed Amount of bleeding with debridement: Mild Bleeding Controlled with: Pressure Patient tolerated procedure: Patient tolerated procedure well Charges/Coding Visit Charges Office Visits / Consults: 15035 OV L4 Est 30min Procedures Integumentary [id number]: [id number] Sherlyn subq tissue 20 sq cm/< Add On Codes: [id number] Sherlyn subq tissue add-on (x2 Additional square centimeters debrided, please refer to clinical note.) Assessment/Plan Assessment/Plan (1) Pressure ulcer of sacral region, stage 3: CODE(S): L89.153 - Pressure ulcer of sacral region, stage 3 (2) Decubitus ulcer of left buttock, stage 3: CODE(S): L89.323 - Pressure ulcer of left buttock, stage 3 (3) Decubitus ulcer of right buttock, stage 3: CODE(S): L89.313 - Pressure ulcer of right buttock, stage 3 (4) Spina bifida: CODE(S): Q05.9 - Spina bifida, unspecified PLAN: Plan Debridement done as documented above, procedure was well-tolerated. No significant depth to ulcers. Cultures taken, will review. Recently had labs about a month ago following recent ER visit, will request records. Apply Fibracol daily to all ulcers, moisten lightly and cover with foam dressing. Diaper rash cream to surrounding area of erythema. Change daily or when soiled. Appetite is said to be good, continue optimal protein intake. Continue use of offloading devices/mattress. 6 weeks off workshop/work given to help with monitoring area properly, changing once soiled and repositioning. Here with Margo Carlson and her mother, their questions were answered and they were advised to let us know if they had any further questions or concerns. Follow-upin a week or sooner if needed. Follow-up in 2 weeks with me. This note was generated with [employer] dictation software. It may contain incorrectwords, spelling, and punctuation that were not noted in checking the note beforesigning. 11/23/24 1701 <Electronically signed by Savannah Kinney MD> Cosigner Signature (if applicable): CC: ~ Signed [facility] Work Phone: [phone] History and physical note [facility] [address] [place] [address] H&P Exam - Wound Care 11/22/24 1355 MR#: [id number] Acct: [id number] Name: JULIETTE CREWS RAI Rep #:[id number] : 1975 49 From: Savannah neri MD PCP: Kassie Polanco NP-C Status:REG R CR Location: History of Present Illness Date of Service: 11/22/24 Chief Complaint: Recurrent decubitus buttock and sacral ulcers History of Wound: Juliette is a 49-year-old well-known to the wound center who presents today due todecubitus ulcers. History of spinal bifida and paraplegia. Currently resides in a home. Family noted bleeding on her underwear during routine care and subsequently examined her buttock area where they noted some blisters and open areas. Since then, they have been applying Vaseline to the area and subsequently presented here. Has been relatively stable. No history of diabetes mellitus or tobacco use. Has been having more daily bowel movements however no significant watery bowel movements or concern for fecal contamination. Feels well otherwise. [facility] Medical History (Updated 11/22/24 @ 20:[address] Savannah Kinney MD) Decubitus ulcer of right buttock, stage 3 Decubitus ulcer of left buttock, stage 3 UTI (urinary tract infection) GI problem Kidney stone Seasonal allergies Wears glasses Depression Uses wheelchair History of urinary self-catheterization Back pain Constipation Gastric reflux Non-smoker BiPAP (biphasic positive airway pressure) dependence Asthma History of edema History of echocardiogram Hx of back injury Acquired scoliosis Spina bifida Home Medications ?Medication ?Instructions ?Recorded ?Last Taken ?Type multivitamin with folic acid 400 1 tab PO [facility] general health 04/24/13 09/25/20 17:30 History mcg tablet (Thera) omeprazole 20 mg capsule,delayed 20 mg PO QHS acid ref lux 03/11/18 09/25/20 17:30 History release aspirin 81 mg chewable tablet 81 mg PO DAILY@0800 10/0 02/2111/02/21 Rx potassium citrate 15 mEq (1,620 15 meq PO BID ##60 09/25/20 17:30 Rx mg) tablet,extended release Bacillus coagulans 10 billion cell 1 each PO QHS IMMUN E HEALTH 09/11/20 09/25/20 17:30 History capsule,delayed release polyethylene glycol 3350 17 gram 17 gm PO DAILY PRN [place] N Constipation 09/14/20 09/25/20 17:30 History oral powder packet budesonide 0.25 mg/2 mL suspension 0.25 mg inhalation BID 10/28/21 Unknown History for nebulization bisacodyl 5 mg tablet 5 mg PO .once weekly 5 Unknown History docusate sodium 100 mg tablet 100 mg PO BID 08/21/24 U nknown History (Stool Softener) loratadine 10 mg tablet 10 mg PO QDAY 08/21/24 Unkno wn History mineral oil (Fleet Mineral Oil 118 ml [place] .QTUFR Unknown History enema) mupirocin calcium 2 % topical cream 1 applic topical B ID 08/21/24 Unknown History ondansetron HCl 4 mg tablet 4 mg PO .COMPLEX #10 tabs 08/21/24 Unknown Rx oxybutynin chloride 15 mg 5 mg PO TID BLADDER 08/21/24 Unknown History tablet,extended release 24 hr peg 3350-electrolytes 236 240 ml PO Q10M #4,000 mL Unknown Rx gram-22.74 gram-6.74 gram-5.86 gram solution (Golytely) psyllium husk 0.52 gram capsule 0.52 g PO QDAY 5 Unknown History (Fiber Laxative (psyllium husk)) sertraline 50 mg tablet 50 mg PO QDAY 08/21/24 Unkno wn History lubiprostone 24 mcg capsule 24 mcg PO BID constipation #60 caps 09/04/24 Unknown Rx (Amitiza) Allergy/AdvReac Type Severity Reaction Status Date / Time amoxicillin (From Augmentin) AdvReac Diarrhea Verified 11/04/21 13:39 azithromycin (From Zithromax AdvReac Diarrhea Verified 11/04/21 13:39 Z-Turner) ciprofloxacin (From Cipro) AdvReac Pain in Verified 11/04/21 13:39 joints clavulanic acid (From AdvReac Diarrhea Verified 11/04/21 13:39 Augmentin) Surgical History History of incision and drainage Hx of eye surgery Hx of ileostomy History of brain shunt History of cystoscopy Hx of cholecystectomy Social History Smoking Status: Never smoker ROS Constitutional Constitutional: Denies body ache(s), change in weight, frequent falls, headache(s), increased appetite, poor appetite or snoring Eyes Eyes: Denies change in vision, decreased night vision, discharge from eye(s), exophthalmos, halo effect, itchy eyes, loss of central vision or loss of peripheral vision ENT HEENT: Denies dysphagia, ear discharge, facial pain, halitosis, headache(s), nasal congestion or nasal obstruction Cardiovascular Cardiovascular: Denies clubbing, cyanosis, diaphoresis, dyspnea at rest, dyspneaon exertion, easilytiring during activity or erythema on extremities Respiratory/Chest Respiratory/Chest: Denies dyspnea, dyspnea on exertion, hemoptysis, hoarseness, inability to speak,nail bed cyanosis or patience-oral cyanosis Gastrointestinal Gastrointestinal: Denies chewing difficulty, coffee ground emesis, constipation,cramping, diarrhea,dry heaves or dyspepsia Genitourinary Genitourinary: Denies abdominal discomfort, anuria, burning urination, difficulty urinating, dysuria or genital lesions Musculoskeletal Musculoskeletal: Denies joint stiffness, joint swelling, loss of height, muscle cramps, muscle spasms or muscle weakness Integumentary Integumentary: Denies erythema, furuncle, hirsutism, jaundice, lesions, nail changes or new lesions Neurologic Neurologic: Denies burning sensations, confusion, convulsions, disequilibrium, dizziness, focal weakness or frequent falls Psychiatric Psychiatric: Denies change in appetite, confusion, depression, difficulty concentrating, hallucinations, homicidal ideation or hopelessness Endocrine Endocrinology: Denies deepening of the voice, flushing, heat intolerance, palpitations, polydipsia,polyphagia or polyuria Allergic/Immunologic Allergic/Immunologic: Denies lip swelling, seasonal rhinorrhea, tongue swelling,hives, urticaria, eczemia or wheezing Vital Signs Vital Signs Vital Signs: 11/22/24 10:48 Temperature 98.4 F Temperature Source Temporal Pulse Rate 87 Respiratory Rate 18 Blood Pressure 139/103 H Blood Pressure Mean 115 Blood Pressure Source Monitor Blood Pressure Position Semi-Fowlers Blood Pressure Location Right Arm Oxygen Delivery Method Nasal Cannula Physical Exam Const alert, oriented x3 and no apparent distress General Appearance: cooperative and well kempt HEENT normocephalic and hearing grossly normal bilaterally Head and Scalp: normal to inspection and atraumatic Neck full ROM and supple Resp normal respiratory effort and normal air movement Effort and Inspection: able to speak in complete sentences Cardio regular rate, regular rhythm, S1 normal heart sound and S2 normal heart sound GI soft to palpation and non-tender Skin Wounds: wounds noted size Size: See clinical note, bed with slough, no odor, open and surrounding erythema Neuro oriented x3 and CN's II-XII intact bilaterally Psych mental status grossly normal, cooperative and affect normal Appearance: grossly normal Attitude: calm Speech: normal speech Debridement Note Debridement Note Wound debrided: Sacral Wound Grade/Stage: Stage III Type of Debridement: Excisional debridement Anesthesia Used: 5% Lidocaine Gel Depth: Down to and including healthy tissue and in the subcutaneous layer Percentage of wound debrided: 100 Instrument Used: 3mm curette Tissue Removed: Slough and devitalized tissue Severity: Fat Layer Exposed Amount of bleeding with debridement: Mild Bleeding Controlled with: Pressure Patient tolerated procedure: Patient tolerated procedure well Post-Debridement Measurements and Additional Note: Post-Debridement Measurements/Treatment [facility] Nurse 1 - General Ulcer Assessment Start: 11/22/24 10:38 Freq: Status: Active Protocol: TOBIN Activity Type Activity Date Activity User E-sign Co-sign Detail Recorded Client Recorded Date Recorded By Document 11/22/24 10:48 MALIKA [id number] 11/22/24 10:52 DS 11/22/24 10:48 - Today's Visit Information Type of service Initial Visit Arrival Mode Wheelchair Transfer Assistance Manual Patient Identification Verified (Name & Yes ) Patient Requires Transmission-Based No Precautions Safety Precautions Fall Prevention Vital Signs Temperature (97.8 F-99.1 F) 98.4 F Temperature Source Temporal Pulse Rate (60-100) 87 Pulse Location Monitor Respiratory Rate (12-18) 18 Respiratory rate source Observation Oxygen Delivery Method Nasal Cannula Blood Pressure (90/60-120/80) 139/103 H Blood Pressure Mean 115 Source Monitor Position Semi-Fowlers Blood Pressure Location Right Arm Pain Scale: 0-10 Numeric Is Patient Pain Free? Yes Communication Assessment Preferred language Latvian 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 No Able to Read Yes Able to Write Yes Right Hearing Abillity Normal Left Hearing Abillity Normal Visual Assistive Devices Glasses Teaching Assessment Preferences Verbal,Written, Demonstration Barriers to Learning Knowledge Deficit Readiness To Learn Good Willingness to Engage in Self Management Med Activies Readiness to Engage in Self Management Med Activities Anxiety Level Calm Cooperation Cooperative Perception Coherent Interest in Health Problem Uninterested Education Importance Acknowledges Need Does Patient Smoke tobacco or other No substances Is Patient Diabetic No Functional Assessment Recent Decline in Ability to Perform Denies Any Declines List Device(s) with Patient family support Culture/Hinduism/Public Health Clinical Nurse Specialist Cultural/Hinduism Needs that may affect No Treatment Plan Teaching: Wound Center *Welcome to the Wound Center -Person Taught Patient,Family, Significant Other -Teaching Method Discussion -Response to teaching Verbalize Understanding WC - Nurse 1 - General Ulcer Measurement Start: 11/22/24 10:38 Freq: Status: Active Protocol: Activity Type Activity Date Activity User E-sign Co-sign Detail Recorded Client Recorded Date Recorded By Document 11/22/24 11:09 DS [id number] 11/22/24 11:13 DS 11/22/24 11:09 Wound Center Nurse 1 #10 rectum -Current Size (cm) - Length 0.9 -Current Size (cm) - Width 1.4 -Current Size (cm) - Depth 0.1 -Total Square Cm 1.26 -Date of Last Picture (Recall this 11/22/24 field) -Photo Taken Yes -Tunneling No -Undermining/Tunneling No -Circular Undermining No -Exudate Amt None Present -Wound Margin Distinct, Outline Attached -Granulation Amt Large (67-100%) -Granulation Quality [place] -Slough/Fibrin No -Texture (Patience-wound Skin Appearance) Assessed -Moisture (Patience-wound Skin Appearance) Assessed -Color (Patience-wound Skin Appearance) Assessed -Temperature (Patience-wound Skin No Abnormality Appearance) (Pt Warm) -Ulcer Cleansing Soap and Water -Foul Odor after Cleansing No -Anesthetic Used 5% Lidocaine Gel #9 left superior ischium -Current Size (cm) - Length 2.1 -Current Size (cm) - Width 3.8 -Current Size (cm) - Depth 0.1 -Total Square Cm 7.98 -Date of Last Picture (Recall this 11/22/24 field) -Photo Taken Yes -Tunneling No -Undermining/Tunneling No -Circular Undermining No -Exudate Amt None Present -Wound Margin Distinct, Outline Attached -Granulation Amt Large (67-100%) -Granulation Quality Red -Slough/Fibrin No -Texture (Patience-wound Skin Appearance) Assessed -Moisture (Patience-wound Skin Appearance) Assessed -Color (Patience-wound Skin Appearance) Assessed -Temperature (Patience-wound Skin No Abnormality Appearance) (Pt Warm) -Tenderness on Palpation (Patience-wound No Skin Appearance) -Ulcer Cleansing Soap and Water -Foul Odor after Cleansing No -Anesthetic Used 5% Lidocaine Gel #8 left inferior ischium -Current Size (cm) - Length 2.1 -Current Size (cm) - Width 6.0 -Current Size (cm) - Depth 0.1 -Total Square Cm 12.60 -Date of Last Picture (Recall this 11/22/24 field) -Photo Taken Yes -Tunneling No -Undermining/Tunneling No -Circular Undermining No -Exudate Amt None Present -Wound Margin Distinct, Outline Attached -Granulation Amt Large (67-100%) -Granulation Quality Red -Slough/Fibrin No -Texture (Patience-wound Skin Appearance) Assessed -Moisture (Patience-wound Skin Appearance) Assessed -Color (Patience-wound Skin Appearance) Assessed -Temperature (Patience-wound Skin No Abnormality Appearance) (Pt Warm) -Tenderness on Palpation (Patience-wound No Skin Appearance) -Ulcer Cleansing Soap and Water -Foul Odor after Cleansing No -Anesthetic Used 5% Lidocaine Gel #7 right ischiu -Current Size (cm) - Length 1.8 -Current Size (cm) - Width 3.0 -Current Size (cm) - Depth 0.1 -Total Square Cm 5.40 -Date of Last Picture (Recall this 11/22/24 field) -Photo Taken Yes -Tunneling No -Undermining/Tunneling No -Circular Undermining No -Exudate Amt None Present -Wound Margin Distinct, Outline Attached -Granulation Amt Large (67-100%) -Granulation Quality [place] -Slough/Fibrin No -Texture (Patience-wound Skin Appearance) Assessed -Moisture (Patience-wound Skin Appearance) Assessed -Color (Patience-wound Skin Appearance) Assessed -Temperature (Patience-wound Skin No Abnormality Appearance) (Pt Warm) -Ulcer Cleansing Soap and Water -Foul Odor after Cleansing No -Anesthetic Used 5% Lidocaine Gel WC - Nurse 2 - General Ulcer CM Notes Start: 11/22/24 10:38 Freq: Status: Active Protocol: Activity Type Activity Date Activity User E-sign Co-sign Detail Recorded Client Recorded Date Recorded By Document 11/22/24 11:12 [id number] 11/22/24 11:33 11/22/24 11:12 Wound Center Nurse 2 #8 Right ishium cluster -Time 11:32 -Correct Patient Yes -Correct Side, Site, Position Yes -Correct Procedure Yes -Procedure Performed Yes -Type of Procedure Debridement -Clinical Debridement Subcutaneous -Tissue Removed Subcutaneous -Post Debridement (cm) - Length 3.4 -Post Debridement (cm) - Width 3.3 -Post Debridement (cm) - Depth 0.1 -Total Square (Post) (cm) 11.22 -Area of Debridement (cm) - Length 3.4 -Area of Debridement (cm) - Width 3.3 -Total Square (Area) (cm) 11.22 -Tunneling No -Undermining/Tunneling No -Circular Undermining No -Wound/Ulcer Outcome Not Healed -Ulcer Cleansing Rinsed/ Irrigated with Saline -Foul Odor after Cleansing No -Bioengineered Tissue No -Bleeding Controlled with Pressure -Treatment Response Procedure Tolerated Well -Debridement - Subq, 1st 20sq cm Yes -Debridement, SubQ, ea addt'l 20sq cm 2 or part thereof #7 L Ishium cluster -Time 11:18 -Correct Patient Yes -Correct Side, Site, Position Yes -Correct Procedure Yes -Procedure Performed Yes -Type of Procedure Debridement -Clinical Debridement Subcutaneous -Tissue Removed Subcutaneous -Post Debridement (cm) - Length 6.0 -Post Debridement (cm) - Width 6.0 -Post Debridement (cm) - Depth 0.1 -Total Square (Post) (cm) 36.00 -Area of Debridement (cm) - Length 6.0 -Area of Debridement (cm) - Width 6.0 -Total Square (Area) (cm) 36.00 -Tunneling No -Undermining/Tunneling No -Circular Undermining No -Wound/Ulcer Outcome Not Healed -Ulcer Cleansing Rinsed/ Irrigated with Saline -Foul Odor after Cleansing No -Bioengineered Tissue No -Bleeding Controlled with Pressure -Treatment Response Procedure Tolerated Well -Offloading No -Debridement - Subq, 1st 20sq cm No #6- sacrum -Time 11:12 -Correct Patient Yes -Correct Side, Site, Position Yes -Correct Procedure Yes -Procedure Performed Yes -Type of Procedure Debridement -Clinical Debridement Subcutaneous -Tissue Removed Subcutaneous -Post Debridement (cm) - Length 1.0 -Post Debridement (cm) - Width 0.4 -Post Debridement (cm) - Depth 0.1 -Total Square (Post) (cm) 0.40 -Area of Debridement (cm) - Length 1.0 -Area of Debridement (cm) - Width 0.4 -Total Square (Area) (cm) 0.40 -Tunneling No -Undermining/Tunneling No -Circular Undermining No -Wound/Ulcer Outcome Not Healed -Ulcer Cleansing Rinsed/ Irrigated with Saline -Foul Odor after Cleansing No -Bioengineered Tissue No -Bleeding Controlled with Pressure -Treatment Response Procedure Tolerated Well -Debridement - Subq, 1st 20sq cm No Pain Scale: 0-10 Numeric Is Patient Pain Free? Yes WC - Nurse 3 - General Ulcer D/C NN Start: 11/22/24 10:38 Freq: Status: Active Protocol: Activity Type Activity Date Activity User E-sign Co-sign Detail Recorded Client Recorded Date Recorded By Document 11/22/24 11:47 DS [id number] 11/22/24 11:54 DS Edit Result 11/22/24 11:47 DS (1) [id number] 11/22/24 12:01 DS (1) #7 L Ishium cluster - Fibracol Plus 4x4 0 => 1 11/22/24 11:47 Wound Care Center Nurse 3 #8 Right ishium cluster -Primary Dressing Applied Fibracol Plus 4x4,Silicone Border Foam 6x6 -Fibracol Plus 4x4 1 -Silicone Border Foam 6x6 1 #7 L Ishium cluster -Primary Dressing Applied Fibracol Plus 4x4,Silicone Border Foam 4x4 -Fibracol Plus 4x4 1 -Silicone Border Foam 4x4 1 #6- sacrum -Primary Dressing Applied Fibracol Plus 4x4,Silicone Border Foam 4x4 -Fibracol Plus 4x4 0 -Silicone Border Foam 4x4 1 Pain Scale: 0-10 Numeric Is Patient Pain Free? Yes WC - Visit Discharge Discharge Condition Stable Ambulatory Status Wheelchair Transportation Private Auto Accompanied by mother/sister Additional Wound Wound debrided: Right buttock cluster Wound Grade/Stage: Stage III Type of Debridement: Excisional debridement Anesthesia Used: 5% Lidocaine Gel Depth: Down to and including healthy tissue and in the subcutaneous layer Percentage of wound debrided: 100 Instrument Used: 5mm curette Tissue Removed: Slough and devitalized tissue Severity: Fat Layer Exposed Amount of bleeding with debridement: Mild Bleeding Controlled with: Pressure Patient tolerated procedure: Patient tolerated procedure well Additional Wound Wound debrided: Left buttock cluster Wound Grade/Stage: Stage III Type of Debridement: Excisional debridement Anesthesia Used: 5% Lidocaine Gel Depth: Down to and including healthy tissue and in the subcutaneous layer Percentage of wound debrided: 100 Instrument Used: 5mm curette Tissue Removed: Slough and devitalized tissue Severity: Fat Layer Exposed Amount of bleeding with debridement: Mild Bleeding Controlled with: Pressure Patient tolerated procedure: Patient tolerated procedure well Charges/Coding Visit Charges Office Visits / Consults: 11815 OV L4 Est 30min Procedures Integumentary 111xxx-113xx: [id number] Sherlyn subq tissue 20 sq cm/< Add On Codes: 29130 Sherlyn subq tissue add-on (x2 Additional square centimeters debrided, please referto clinical note.) Assessment/Plan Assessment/Plan (1) Pressure ulcer of sacral region, stage 3: CODE(S): L89.153 - Pressure ulcer of sacral region, stage 3 (2) Decubitus ulcer of left buttock, stage 3: CODE(S): L89.323 - Pressure ulcer of left buttock, stage 3 (3) Decubitus ulcer of right buttock, stage 3: CODE(S): L89.313 - Pressure ulcer of right buttock, stage 3 (4) Spina bifida: CODE(S): Q05.9 - Spina bifida, unspecified PLAN: Plan Debridement done as documented above, procedure was well-tolerated. No significant depth to ulcers.Cultures taken, will review. Recently had labs about a month ago following recent ER visit, will request records. Apply Fibracol daily to all ulcers, moisten lightly and cover with foam dressing. Diaper rash cream to surrounding area of erythema. Change daily or when soiled. Appetite is said to be good, continue optimal protein intake. Continue use of offloading devices/mattress. 6 weeks off workshop/work given to help with monitoring area properly, changing once soiled and repositioning. Here with Margo Carlson and her mother, their questions were answered and they were advised to let us know if they had any further questions or concerns. Follow-upin a week or sooner if needed. Follow-up in 2 weeks with me. This note was generated with Brainlyation software. It may contain incorrectwords, spelling, and punctuation that were not noted in checking the note beforesigning. 11/23/24 1701 Cosigner Signature (if applicable): CC: ~ Signed [facility]03-18-2025 Evaluation note* Diagnosis Onset Date Resolution Status Admit Date Constipation acute August 21, 2024 1:19pm Decubitus ulcer of left buttock, stage 3 acute November 29, 2024 10:30am Decubitus ulcer of right buttock, stage 3 acute November 29, 2024 10:30am Pressure ulcer of sacral region, stage 3 chronic November 29, 2024 10:30am Spina bifida chronic November 29 025 10:30am [facility] Work Phone: 1(565) 660-580803-18-2025 Evaluation note* Diagnosis Onset Date Resolution Status Admit Date Constipation acute August 21, 2024 1:19pm Decubitus ulcer of left buttock, stage 3 acute November 29, 2024 10:30am Decubitus ulcer of right buttock, stage 3 acute November 29, 2024 10:30am Pressure ulcer of sacral region, stage 3 chronic November 29, 2024 10:30am Spina bifida chronic November 29 025 10:30am Decubitus ulcer of left buttock, stage 3 acute December 13, 2024 10:45am Decubitus ulcer of right buttock, stage 3 acute December 13, 2024 10:45am Pressure ulcer of sacral region, stage 3 chronic December 13, 2024 10:45am Spina bifida chronic Roxanna 10th, 2 025 10:45am [facility] Work Phone: 1(932) 815-874103-03-2024 Note. MICRO - Microbiology PROCEDURE: Blood Culture (bacterial) [*1] SOURCE: Blood BODY SITE: COLLECTED DATE/TIME: 08/02/2023 11:48 EST RECEIVED DATE/TIME: 08/02/2023 18:04 EST START DATE/TIME: 08/02/2023 18:04 EST FREE TEXT SOURCE: FINAL REPORTS Final Report [] Verified Date/Time/Personnel: 08/07/2023 18:59 EST Blood Culture: No Growth at 5 days. PRELIMINARY REPORTS Preliminary Report [] Verified Date/Time/Personnel: 08/02/2023 18:59 EST Culture has been received in lab and is no growth to date. Routine cultures are held for 5 days. Performing Locations *1: This test was performed at: [address], [facility] , [facility] ([place])08-07-2023 Note. MICRO - Microbiology PROCEDURE: Blood Culture (bacterial) [*1] SOURCE: Blood BODY SITE: COLLECTED DATE/TIME: 08/02/2023 11:30 EST RECEIVED DATE/TIME: 08/02/2023 18:02 EST START DATE/TIME: 08/02/2023 18:02 EST FREE TEXT SOURCE: Set #2 FINAL REPORTS Final Report [] Verified Date/Time/Personnel: 08/07/2023 18:59 EST Blood Culture: No Growth at 5 days. PRELIMINARY REPORTS Preliminary Report [] Verified Date/Time/Personnel: 08/02/2023 18:59 EST Culture has been received in lab and is no growth to date. Routine cultures are held for 5 days. Performing Locations *1: This test was performed at: [address], [address] [place] [address] ([place])01-25-2023 NoteHNO ID: [id number] Author: Nawaf Quinn MD Service: ? Author Type: Physician Type: Progress Notes Filed: 01/26/2023 5:10 PM Note Text: S: NAES. Wound care nurse/me felt continued NPWT not indicated. O: Gen alert, nad Sacral area - superficial skin loss, base of wound with healthy appearing granulation tissue, depth <2-3 mm, no cellulitis/abscess/infection A/P 47 year old female s/p pressure sore excision and gluteal rotation flap with delayed healing - now with superficial delayed healing. Silver nitrate applied. Can DC VAC and WTD dressing and convert to non-adherent gauze/small dressing. Patient can sit for no longer than 2 hrs followed by recovery period of 2 hrs. Sitting to recovery period should be 1:1 eg 30 min on/30 min off until complete resolution of wound healing. Patient may shower and return to her facility. Fu 6 weeks/prn. During this patient visit I have spent approximately 15 minutes out of 30 in counseling regarding treatment options and coordinating care.[facility]07-25-2023 NoteHNO ID: [id number] Author: Shell Ruth PA-C Service: ? Author Type: Physician Gear Setter Type: Progress Notes Filed: 01/12/2023 4:09 PM Note Text: Plastic Surgery Postop Note Subjective: Juliette Crews is a 47 year old female who presents 2.5 month(s) post-op: excision sacral wound with myocutaneous flap coverage . She has been treating the area of delayed wound healing with wound vac. The central wound is healing and becoming more superficial. Using wound vac and home care is still coming in. It is healing well. She also has an area to the right of the wound that is leaking. Fluid is serosang with no odor. It is Coming from a pinpoint opening. No surrounding erythema. Culture taken ROS: Review of Systems Constitutional: Negative for chills and fever. Skin: Negative for rash. Physical Exam General Appearance: Well appearing, alert, in no acute distress, well-hydrated, well nourished.. Skin: Skin color, texture, turgor normal, no suspicious rashes or lesions. INCISION: Wound becoming more superficial. 1.5 cm x 0.8 cm No erythema or drainage. To the right of the wound there is a pinpoint area of ss leakage. no erythema. Not malodorous. Assessment: (Z98.890) Post-operative state (primary encounter diagnosis) improving area of delayed healing Plan: ABSCESS AND WOUND CULTURE WITH GRAM STAIN Plan: - Continue wound vac - Culture pending - FU 3 weeks or prn with photos Shell Ruth PA-C 12/30/22- spoke with mother regarding culture results ( she does not use Mychart) [facility]07-17-2023 NoteHNO ID: [id number] Author: Joshua Cabrera APRN.[facility] Service: ? Author Type: Nurse Practitioner Type: Progress Notes Filed: 12/20/2022 11:37 AM Note Text: Spoke with home nurse, Donna. She requested revised wound vac dressing change order to include layer of adaptic to prevent foam adhesion to wound bed. Called Alina and updated this. Joshua Cabrera APRN.[facility]07-11-2023 NoteHNO ID: [id number] Author: Nawaf Quinn MD Service: ? Author Type: Physician Type: Progress Notes Filed: 12/19/2022 8:13 PM Note Text: Plastic Surgery Postop Note All documentation from previous visit was copied and pasted, documentation has been reviewed and edited as necessary for today's visit. Subjective: Juliette Crews is a 47 year old female who presents today in post operative visit to 10/05/22 Excision sacral pressure sore [id number] 2. ATT [id number] NAES. Dehiscence again. Physical Exam General Appearance: Well appearing, alert, in no acute distress, well-hydrated, well nourished.. Skin: Skin color, texture, turgor normal, no suspicious rashes or lesions. Neurologic: Gait normal. Reflexes normal and symmetric. Sensation grossly intact.. INCISION: mostly clean dry/intact, most medial portion of incision with partial dehiscence, no e/o infection, no palpable bone, sutures removed, and NPWT dressing placed Assessment: S/p above - Plan: NPWT device placed Change MWF Will fu virtually one week, may try delayed primary closure based on healing vs continued NPWT The patient is seen and examined by Dr. Quinn and the following reflects his/her service. Scribed by Oralia Burnett MA I agree with the Chief Complaint, ROS, and Past Histories independently gathered by the clinical mining support worker and the remaining scribed note accurately describes my personal service to the patient.[facility]06-27-2023 NoteHNO ID: [id number] Author: Nawaf Quinn MD Service: ? Author Type: Physician Type: Progress Notes Filed: 12/01/2022 5:39 PM Note Text: Plastic Surgery Postop Note All documentation from previous visit was copied and pasted, documentation has been reviewed and edited as necessary for today's visit. Subjective: Juliette Crews is a 47 year old female who presents today in post operative visit to 10/05/22 Excision sacral pressure sore [id number] 2. ATT [id number] NAES. Dehiscence ?worsened. Physical Exam General Appearance: Well appearing, alert, in no acute distress, well-hydrated, well nourished.. Skin: Skin color, texture, turgor normal, no suspicious rashes or lesions. Neurologic: Gait normal. Reflexes normal and symmetric. Sensation grossly intact.. INCISION: mostly clean dry/intact, most medial portion of incision with partial dehiscence, no e/o infection, no palpable bone (silver nitrate placed), sutures placed Assessment: S/p above - Plan: Closed today - unfortunately at area of maximal tension and movement during transfers. No palpable bone, healthy granulating base. May consider wound VAC in future if delayed closure fails. Abx for 7 days prxis. The patient is seen and examined by Dr. Quinn and the following reflects his/her service. Scribed by Oralia Burnett MA I agree with the Chief Complaint, ROS, and Past Histories independently gathered by the clinical mining support worker and the remaining scribed note accurately describes my personal service to the patient.[facility]06-15-2023 Note. MICRO - Microbiology PROCEDURE: Blood Culture (bacterial) [*1] SOURCE: Blood BODY SITE: COLLECTED DATE/TIME: 11/15/2022 14:35 EDT RECEIVED DATE/TIME: 11/16/2022 15:56 EDT START DATE/TIME: 11/16/2022 15:56 EDT FREE TEXT SOURCE: FINAL REPORTS Final Report [] Verified Date/Time/Personnel: 11/18/2022 08:09 EDT Group A Beta Hemolytic Strep (Strep pyogenes) Isolated from aerobe and anaerobe bottles. Refer to previous culture for susceptibility. [id number] This organism causes a reportable disease. Infection Control has been notified. PRELIMINARY REPORTS Preliminary Report [] Verified Date/Time/Personnel: 11/17/2022 10:04 EDT Group A Beta Hemolytic Strep (Strep pyogenes) Isolated from aerobe and anaerobe bottles. Final report to follow. This organism causes a reportable disease. Infection Control has been notified. Preliminary Report [] Verified Date/Time/Personnel: 11/16/2022 16:59 EDT Culture has been received in lab and is no growth to date. Routine cultures are held for 5 days. STAINS GSANA [] Verified Date/Time/Personnel: 11/18/2022 08:11 EDT *Corrected Anaerobic Bottle Gram Stain Report* Gram Positive Cocci in chains Previously Reported As: Gram Negative Rods and Gram Positive Cocci in chains GSANA [] Verified Date/Time/Personnel: 11/16/2022 23:17 EDT Gram Negative Rods and Gram Positive Cocci in chains GSAER [] Verified Date/Time/Personnel: 11/16/2022 22:24 EDT Gram Positive Cocci in chains Performing Locations *1: This test was performed at: [address], [facility] , [facility] ([place])11-18-2022 Note. MICRO - Microbiology PROCEDURE: Blood Culture (bacterial) [*1] SOURCE: Blood BODY SITE: COLLECTED DATE/TIME: 11/15/2022 14:30 EDT RECEIVED DATE/TIME: 11/16/2022 15:56 EDT START DATE/TIME: 11/16/2022 15:56 EDT FREE TEXT SOURCE: FINAL REPORTS Final Report [] Verified Date/Time/Personnel: 11/18/2022 08:00 EDT Group A Beta Hemolytic Strep (Strep pyogenes) Isolated from aerobe bottle only. This organism causes a reportable disease. Infection Control has been notified. PRELIMINARY REPORTS Preliminary Report [] Verified Date/Time/Personnel: 11/17/2022 10:02 EDT Group A Beta Hemolytic Strep (Strep pyogenes) Isolated from aerobe bottle only. KELSEY to follow This organism causes a reportable disease. Infection Control has been notified. Preliminary Report [] Verified Date/Time/Personnel: 11/16/2022 16:59 EDT Culture has been received in lab and is no growth to date. Routine cultures are held for 5 days. STAINS GSAER [] Verified Date/Time/Personnel: 11/16/2022 22:24 EDT Gram Positive Cocci in chains SUSCEPTIBILITY RESULTS Group A Beta Hemolytic Strep (Strep pyogenes) Antibiotic KELSEY Dilut KELSEY Inter Azithromycin <=0.25 Susceptible Cefotaxime <=0.25 Susceptible Clindamycin <=0.06 Susceptible Penicillin <=0.03 Susceptible Vancomycin 0.5 Susceptible Performing Locations *1: This test was performed at: [address], [facility] , [facility] ([place])11-17-2022 NoteHNO ID: [id number] Author: Shell Ruth PA-C Service: ? Author Type: Physician Gear Setter Type: Progress Notes Filed: 11/17/2022 12:13 PM Note Text: Plastic Surgery Postop Note Subjective: Juliette Crews is a 47 year old female who presents 6 week(s) post-op: excision sacral pressure ulcer with reconstruction . The wound has opened up. No pain. Minimal drainage. Mother has been packing the wound with Iodoform. ROS: Review of Systems Constitutional: Negative for chills and fever. Skin: Negative for rash. Physical Exam General Appearance: Well appearing, alert, in no acute distress, well-hydrated, well nourished.. Skin: Skin color, texture, turgor normal, no suspicious rashes or lesions. INCISION: Dehiscence of central area of the wound 2cm x 1 cm with undermining medially approx 2 cm. no drainage or odor. No bone palpated. Assessment: (Z98.890) Post-operative state (primary encounter diagnosis) Plan: - Continue WTD packing dressing changes BID - Pressure offloading - Ok to send photos if symptoms worsen - FU as scheduled [facility]06-06-2023 NoteHNO ID: [id number] Author: Nawaf Quinn MD Service: ? Author Type: Physician Type: Progress Notes Filed: 11/09/2022 4:53 PM Note Text: Plastic Surgery Postop Note All documentation from previous visit was copied and pasted, documentation has been reviewed and edited as necessary for today's visit. Subjective: Juliette Crews is a 47 year old female who presents today in post operative visit to 10/05/22 Excision sacral pressure sore [id number] 2. ATT [id number] NAES. Stable wound. Physical Exam General Appearance: Well appearing, alert, in no acute distress, well-hydrated, well nourished.. Skin: Skin color, texture, turgor normal, no suspicious rashes or lesions. Neurologic: Gait normal. Reflexes normal and symmetric. Sensation grossly intact.. INCISION: mostly clean dry/intact, most medial portion of incision with partial dehiscence, no e/o infection, no palpable bone (silver nitrate placed), sutures removed Assessment: S/p above - Plan: Cont local wound care Graduated sitting Fu as scheduled - will remove drain at that time. The patient is seen and examined by Dr. Quinn and the following reflects his/her service. Scribed by Oralia Burnett MA I agree with the Chief Complaint, ROS, and Past Histories independently gathered by the clinical mining support worker and the remaining scribed note accurately describes my personal service to the patient.[facility]05-23-2023 NoteHNO ID: [id number] Author: Nawaf Quinn MD Service: ? Author Type: Physician Type: Progress Notes Filed: 10/29/2022 4:54 PM Note Text: Plastic Surgery Postop Note Subjective: Juliette Crews is a 47 year old female who presents today in post operative visit to 10/05/22 Excision sacral pressure sore [id number] 2. ATT [id number] Physical Exam General Appearance: Well appearing, alert, in no acute distress, well-hydrated, well nourished.. Skin: Skin color, texture, turgor normal, no suspicious rashes or lesions. Neurologic: Gait normal. Reflexes normal and symmetric. Sensation grossly intact.. INCISION: mostly clean dry/intact, most medial portion of incision with partial dehiscence, no e/o infection, no palpable bone Assessment: S/p above - Plan: Cont local wound care Delay in sitting protocol until healing Fu as scheduled The patient is seen and examined by Dr. Quinn and the following reflects his/her service. Scribed by Oralia Burnett MA I agree with the Chief Complaint, ROS, and Past Histories independently gathered by the clinical mining support worker and the remaining scribed note accurately describes my personal service to the patient.[facility]05-05-2023 NoteHNO ID: [id number] Author: Christina Turpin RN Service: Care Management Author Type: Registered Nurse Type: Care Mgt Progress Note Filed: 10/08/2022 1:43 PM Note Text: CARE MANAGEMENT PROGRESS NOTE SERVICE DATE: 10/08/2022 SERVICE TIME: 1:43 PM LOS: 3 days IMM Follow Up Copy Given: Yes Copy given to:: Patient Production Operations Engineer Name/Relationship: mother Mirella Method: By Phone SIGNATURE: Christina Turpin RN PATIENT NAME: Juliette Crews DATE: October 08, 2022 TIME: 1:42 PM PAGER/CONTACT #: [phone] [facility]-05-2023 NoteHNO ID: [id number] Author: Christina Turpin RN Service: Care Management Author Type: Registered Nurse Type: Care Mgt Progress Note Filed: 10/08/2022 1:35 PM Note Text: CARE MANAGEMENT DISCHARGE NOTE SERVICE DATE: October 08, 2022 SERVICE TIME: 1:32 PM Admission Date: 10/05/2022 LOS: 3 days Discharge Arrangement Discharge Arrangement: Home with Home Health Services Arranged Medical Services: Skilled Home Health Care Type: [facility] Provider Name: [facility] Your Caregiver Assessment Caregiver is ready, willing and able to meet the patient's needs as recommended by the inter-professional team: No Caregiver needed Transportation Arrangements Transportation Arrangements: Car Additional Information: Discharge orders in place , pt going home with PO antibiotics, [facility] able to provide long-term, home care order and dc summary sent to home care, pt's mother able to provide transportation home; Mitch from [place] [employer] notified of discharge ; pt ready for discharge from care management standpoint SIGNATURE: Christina Turpin RN PATIENT NAME: Juliette Crews DATE: October 08, 2022 TIME: 1:32 PM CONTACT #: [id number] [facility] Note HNO ID: [id number] Author: Viktor Jaramillo MD Service: Infectious Disease Author Type: Physician Type: Plan of Care Filed: 10/08/2022 12:28 PM Note Text: ID Clinically either by operative findings or cultures, this is not infected bone. You can get false positive Gram stain for gram-positive's just by debris that can look like little dots of gram positivity. Plastics did not report any pus or abnormal tissue. Soft bone could easily be from the pressure necrosis. In case of normal caitlin which could be skin caitlin sitting in the area of a recently operated piece of bone and tissue, recommend 2 weeks oral doxycycline 100 mg p.o. twice daily, or 10 more days after today because she has had 4 days vancomycin. No need for ID follow-up. Viktor Jaramillo MD 10/08/2022 12:28 PM [id number] NoteHNO ID: [id number] Author: Shell Ruth PA-C Service: Plastic Surgery Author Type: Physician Gear Setter Type: Progress Notes Filed: 10/08/2022 9:30 AM Note Text: PLASTIC SURGERY INPATIENT PROGRESS NOTE SERVICE DATE: 10/08/2022 SERVICE TIME: 9:13 AM Assessment/Plan POD #3 excision sacral pressure sore [id number] 2. ATT [id number] - N: Continue pain control - P: Continue IS - CV: chronic tachycardia- asymptomatic - GI: regular diet - :continue straight cath q 4, Recommend Urology consult after DC - Heme: Hg stable - ID - waiting for final recs - Endo: stable - Phoph: SCD's ASA - Activity: Bedrest, supine except HOB 30 degrees for meals - Wound: open to air, no sheet or pads on bed - Drain: continue to record output - Dispo: home with C after final ID recs Subjective INTERVAL HPI: Pt is POD 3# excision sacral wound and gluteal rotation flap. Hg today 8.1. She is doing well. no complaints. Mother at bedside. Eating breakfast. ADELAIDA 70 cc yesterday SS fluid Current Facility-Administered Medications Medication Dose Route Frequency ascorbic acid (vitamin C) 500 mg tab(s) (VITAMIN C) 500 mg ORAL DAILY budesonide 0.25 mg/2 mL 0.25 mg (PULMICORT) 0.25 mg INHALATION DAILY aspirin 81 mg chewable tab(s) 81 mg ORAL DAILY polyethylene glycol 3350 17 g packet 17 g ORAL DAILY PRN lactulose 30 g CUP 30 g ORAL BID PRN NaCl 0.9% iv flush bag 20 mL INTRAVENOUS PRN keTORolac 15 mg injection (Toradol) 15 mg INTRAVENOUS q 6 H acetaminophen 325 mg tab(s) (TYLENOL) 325 mg ORAL q 6 H PRN oxyCODONE-acetaminophen 5-325 mg 2 tablet (PERCOCET) 2 tablet ORAL q 4 H PRN morphine 2 mg injection 2 mg INTRAVENOUS q 4 H PRN ondansetron 4 mg tab(s) (ZOFRAN) 4 mg ORAL q 6 H PRN Or ondansetron (PF) 4 mg injection (ZOFRAN) 4 mg INTRAVENOUS q [address] 40 mg tab(s) (PROTONIX) 40 mg ORAL DAILY (6 AM) trospium 20 mg tab(s) (SANCTURA) 20 mg ORAL BID AC PARoxetine 40 mg tab(s) (PAXIL) 40 mg ORAL DAILY vancomycin dosing and monitoring per pharmacy OTHER As Directed vancomycin iv piggyback 1 g in D5W 200 mL (VANCOCIN) 0.015 g/kg/dose INTRAVENOUS q 12 HR Objective PHYSICAL EXAM: BP 111/69 Pulse 121 Temp (Src) 99.7 (Oral) Resp 18 Ht 4' 10 (1.47m) Wt 150 lb (68.0kg) SpO2 95% BMI 31.36 kg/(m2). O2 Therapy: Room Air, Liters: 2 Physical Exam Performed GENERAL: Alert, no distress, cooperative SKIN: Skin color, texture, turgor normal. No rashes or lesions. WOUND: Clean, dry and intact, WWP, no e/o infection DATA: Diagnostic tests reviewed for today's visit: Most recent labs Medication and Non-Pharmacologic VTE Prophylaxis/Anticoagulants Anticoagulant AND Antiplatelet Medications (From admission, onward) Start Dose Route Frequency Last Action Ordered Stop 10/05/22 1500 aspirin 81 mg chewable tab(s) 81 mg ORAL DAILY Given, 10/07 0937 10/05/22 1450 -- 10/05/22 1500 vte pharmacologic prophylaxis contraindicated (il,oh) 10/05/22 1500 pneumatic compression stockings (il,nd) VTE Prophylaxis: VTE prophylaxis appropriate SIGNATURE: Shell Ruth PA-C PATIENT NAME: Juliette Crews DATE: October 08, 2022 TIME: 9:13 [facility]05-04-2023 NoteHNO ID: [id number] Author: Shell Ruth PA-C Service: Plastic Surgery Author Type: Physician Gear Setter Type: Progress Notes Filed: 10/07/2022 5:18 PM Note Text: PLASTIC SURGERY INPATIENT PROGRESS NOTE SERVICE DATE: 10/07/2022 SERVICE TIME: 4:41 PM Assessment/Plan POD #2 excision sacral pressure sore [id number] 2. ATT [id number] - N: Continue pain control - P: Continue IS - CV: chronic tachycardia- asymptomatic - GI: regular diet - :continue straight cath q 4 - Heme: Hg stable - ID - waiting for final recs - Endo: stable - Phoph: SCD's ASA - Activity: Bedrest, supine except HOB 30 degrees for meals - Wound: open to air, no sheet or pads on bed - Drain: continue to record output - Dispo: home with [facility] after final ID recs Subjective INTERVAL HPI: Pt is POD #2 Excision sacral pressure wound with gluteal rotation flap. She is doing well. Pain controlled. Mother at bedside. Drain serosang- 40 cc today Hg 7.9- stable WBC 16.41 Current Facility-Administered Medications Medication Dose Route Frequency ascorbic acid (vitamin C) 500 mg tab(s) (VITAMIN C) 500 mg ORAL DAILY budesonide 0.25 mg/2 mL 0.25 mg (PULMICORT) 0.25 mg INHALATION DAILY aspirin 81 mg chewable tab(s) 81 mg ORAL DAILY polyethylene glycol 3350 17 g packet 17 g ORAL DAILY PRN lactulose 30 g CUP 30 g ORAL BID PRN NaCl 0.9% iv flush bag 20 mL INTRAVENOUS PRN keTORolac 15 mg injection (Toradol) 15 mg INTRAVENOUS q 6 H acetaminophen 325 mg tab(s) (TYLENOL) 325 mg ORAL q 6 H PRN oxyCODONE-acetaminophen 5-325 mg 2 tablet (PERCOCET) 2 tablet ORAL q 4 H PRN morphine 2 mg injection 2 mg INTRAVENOUS q 4 H PRN ondansetron 4 mg tab(s) (ZOFRAN) 4 mg ORAL q 6 H PRN Or ondansetron (PF) 4 mg injection (ZOFRAN) 4 mg INTRAVENOUS q [address] 40 mg tab(s) (PROTONIX) 40 mg ORAL DAILY (6 AM) trospium 20 mg tab(s) (SANCTURA) 20 mg ORAL BID AC PARoxetine 40 mg tab(s) (PAXIL) 40 mg ORAL DAILY vancomycin dosing and monitoring per pharmacy OTHER As Directed vancomycin iv piggyback 1 g in D5W 200 mL (VANCOCIN) 0.015 g/kg/dose INTRAVENOUS q 12 HR Objective PHYSICAL EXAM: BP 120/79 Pulse 118 Temp (Src) 98.8 (Oral) Resp 20 Ht 4' 10 (1.47m) Wt 150 lb (68.0kg) SpO2 96% BMI 31.36 kg/(m2). O2 Therapy: Room Air Physical Exam Performed GENERAL: Alert, no distress, cooperative SKIN: Skin color, texture, turgor normal. No rashes or lesions. WOUND: Clean, dry and intact. WWP, no e/o hematoma or infection DATA: Diagnostic tests reviewed for today's visit: Most recent labs Medication and Non-Pharmacologic VTE Prophylaxis/Anticoagulants Anticoagulant AND Antiplatelet Medications (From admission, onward) Start Dose Route Frequency Last Action Ordered Stop 10/05/22 1500 aspirin 81 mg chewable tab(s) 81 mg ORAL DAILY Given, 10/07 0937 10/05/22 1450 -- 10/05/22 1500 vte pharmacologic prophylaxis contraindicated (il,oh) 10/05/22 1500 pneumatic compression stockings (il,nd) VTE Prophylaxis: VTE prophylaxis appropriate SIGNATURE: Shell Ruth PA-C PATIENT NAME: Juliette Crews DATE: October 07, 2022 TIME: 4:40 [facility]05-04-2023 NoteHNO ID: [id number] Author: CHERYL Beth Service: Care Management Author Type: Ball Rolling Machine Operator Type: Care Mgt Progress Note Filed: 10/07/2022 4:24 PM Note Text: CARE MANAGEMENT PROGRESS NOTE SERVICE DATE: 10/07/2022 SERVICE TIME: 4:20 PM LOS: 2 days SW called and spoke with Mitchlola from [facility]. Explained to Mitch that at this time, patient is decisional and can make her own decisions. Patient is choosing to go home to her mothers at discharge. Explained that if patient does not have the capacity to make a decision, her mother would become her decision maker as patient has advance directives in her chart name her mother as her primary agent. Reassured Mitch that [facility] has been secured. [facility] to provide service once patient is discharged. Mitch and patient [facility] staff have concerns about patient going to her mothers at discharge, but understood it is patients choice regarding discharge plans. SIGNATURE: CHERYL Beth PATIENT NAME: Juliette Crews DATE: October 07, 2022 TIME: 4:20 PM PAGER/CONTACT #: [phone]. [facility] 10-07-2022 NoteHNO ID: [id number] Author: Christina Turpin RN Service: Care Management Author Type: Registered Nurse Type: Care Mgt Progress Note Filed: 10/07/2022 3:29 PM Note Text: CARE MANAGEMENT PROGRESS NOTE SERVICE DATE: 10/07/2022 SERVICE TIME: 3:22 PM LOS: 2 days Received phone call from from Mitch from [facility] of ( [phone]) , made me aware that she will need discharge plan information and dc summary once pt leaves that hospital; She also expressed concerns about pt going home with her mother and [facility] rather than SNF, feels that pt would benefit from short SNF stay and is concerned about the quality of care that the pt's mother is able to provide at home; will revisit topic of SNF with pt at another time Original plan was to go home with [facility] , [facility] able to accept ; pt has wound care needs and will potentially need IV antibiotics, waiting on cultures SIGNATURE: Christina Turpin RN PATIENT NAME: Juliette Mabryr DATE: October 07, 2022 TIME: 3:22 PM PAGER/CONTACT #: [phone] [facility]05-03-2023 NoteHNO ID: [id number] Author: Christina Turpin RN Service: Care Management Author Type: Registered Nurse Type: Care Mgt Initial Assessment Filed: 10/06/2022 3:45 PM Note Text: CARE MANAGEMENT: ASSESSMENT AND DISCHARGE PLAN SERVICE DATE: October 06, 2022 SERVICE TIME: 3:36 PM PCP: Kassie Polanco APRN.CNP Primary Contact: Extended Emergency Contact Information Primary Emergency Contact: Mirella Pena Address: [address] [place] [address] Relation: Mother Admission Status: Inpatient Insurance Provider: [place] MEDICAID Discharge Planning requested by: Per Department Practice Potential Transition Plans Home Care Advance Directives Current Advance Directive: Health Care Power of Banquet Supervisor In Chart: Yes Up To Date and Valid: Yes Current Living Arrangements and Support Lives with: Other person(s) assisted living Type of Residence: Assisted Living Facility Does the patient have to climb stairs at home?: No Support: Other: See Comment How do you manage to accomplish the following: Dependent: Ambulation;Bathe/Shower;Dress;Meals/Meal Prep;Going to the bathroom;Medication Management;Transportation to appointments/community Current Services/Equipment Current Post-Acute Service(s): DME Current DME Type: Wheelchair-electric, Shower seat, Hospital bed Discharge Planning Patient Goal(s): Heal wounds [place] Explained: [place] Given: No Reason Not Given: Patient refused Are you interested in bedside delivery of your medications? No Discharge Planning Participant(s): Patient;Parents Patient/Family Comments: Caregiver Assessment: Caregiver is ready, willing and able to meet the patient's needs as recommended by the inter-professional team: No Caregiver needed Transport at Discharge: Transportation Arrangements: Car Needs Prior to Discharge: Needs Prior to Discharge: IV Antibiotics;Wound Care;Home Care Order;Facility or Agency Choices Post-Acute Discharge Plan: Functional:needs assistance with ADLs Transportation: pt's family able to provide own transportation at dc Equipment Prior to Admission: hospital bed, wheelchair, shower bench Support: pt from Assisted living, nursing staff and mother typically assist with daily wound care [facility]acy: [facility] PCP: Kassie Polanco Spoke with pt and pt's mother for initial assessment , states that prior to admission pt was going to [facility] wound care center every and [facility] nursing staff and her mother assisting with daily wound care ; at this time pt and pt's mother are hoping for pt to return home at her mother's house with [facility] at discharge; they are agreeable to [facility] to assist with wound care at home ; still also need ID recs for antibiotics ; pt's mother able to provide transportation home SIGNATURE: Christina Turpin RN PATIENT NAME: Juliette Crews DATE: October 06, 2022 TIME: 3:36 PM CONTACT #: [id number] Valley Hospital05-03-2023 Note HNO ID: [id number] Author: Shell Ruth PA-C Service: Plastic Surgery Author Type: Physician Gear Setter Type: Progress Notes Filed: 10/07/2022 5:04 PM Note Text: Pt is POD #1 excision sacral wound gluteal rotation flap.[facility] NoteHNO ID: [id number] Author: Michael Deleon MD Service: Orthopaedic Surgery Author Type: Resident Type: Progress Notes Filed: 10/06/2022 6:29 AM Note Text: Plastic Surgery Inpatient Progress Note Assessment Juliette Crews is a 47 year old female who is POD #1 status-post 1. Excision sacral pressure sore [id number] 2. ATT 97x15ol. Plan - Pain control. - Dressing(s): Maintain c/d/i - Drain(s): ADELAIDA to suction, Record output per shift - DVT PPx: SCDs. Hold chemoppx - GPCs on GS, CX pending - Bedrest - Monitor hgb and record I/O s/p multiple blood transfusions - Disposition: cultures and ID recs pending. Subjective No acute events overnight. Pain well controlled. No fevers, chills, chest pain, or shortness of breath. No new complaints. Physical Examination Vitals BP 125/86 Pulse 108 Temp 36.8 ?C (98.2 ?F) (Axillary) Resp 20 Ht 147.3 cm (4' 10) Wt 68 kg (150 lb) SpO2 97% BMI 31.35 kg/m? General Alert and oriented. No acute distress. Cooperative with interview. ADELAIDA drain to suction with sanguinous output Femoral and radial pulses 2+ [place] with some leakage Skin warm and well perfused Labs Recent Labs 05/03/23 0501 10/05/22 1022 NA 140 -- K 3.9 -- CHLOR 104 -- CO2 28 -- BUN 10 -- CREAT 0.56* -- GLUC 98 -- ANION 8* -- CA 8.5 -- WBC 13.68* -- HB 7.9* -- HCT 23.3* -- PLT 184 -- PCO2 -- 39.2 PO2 -- 32* BE -- -2 HCO3 -- 23.4 Michael Deleon MD October 06, 2022 6:05 [facility]05-02-2023 NoteHNO ID: [id number] Author: Chelsea Astorga RN Service: Nursing Author Type: Registered Nurse Type: Nursing Progress Note Filed: 10/05/2022 12:55 PM Note Text: Dr Quinn at [facility]05-02-2023 NoteHNO ID: [id number] Author: Chelsea Astorga RN Service: Nursing Author Type: Registered Nurse Type: Nursing Progress Note Filed: 10/05/2022 12:55 PM Note Text: Dr Tavarez returns to [facility]05-02-2023 NoteHNO ID: [id number] Author: Chelsea Astorga RN Service: Nursing Author Type: Registered Nurse Type: Nursing Progress Note Filed: 10/05/2022 12:55 PM Note Text: Dr Tavarez at [facility]05-02-2023 NoteHNO ID: [id number] Author: Chelsea Astorga RN Service: Nursing Author Type: Registered Nurse Type: Nursing Progress Note Filed: 10/05/2022 12:54 PM Note Text: Dr Tavarez and Dr Quinn at [facility]05-02-2023 NoteHNO ID: [id number] Author: Chelsea Astorga RN Service: Nursing Author Type: Registered Nurse Type: Nursing Progress Note Filed: 10/05/2022 12:54 PM Note Text: Dr Tavarez at bedside and aware of [facility]05-02-2023 NoteHNO ID: [id number] Author: Sarah Kemp APRN.CRNA Service: Anesthesiology Author Type: Nurse Forging Press Operator Type: Anesthesia Procedure Notes Filed: 10/05/2022 9:27 AM Note Text: ANESTHESIOLOGY PROCEDURE NOTE PIV General Information Procedure Start Time/Medication Administration: 10/05/2022 9:12 AM Patient Location: OR Staffing HEAD OF MOBILE: Sarah Kemp APRN.HEAD OF MOBILE Performed by: CARMENCITA Preparation Sterility Preparation: hand hygiene performed prior to procedure, sterile gloves, drapes, and procedure tray, gown used during line insertion, surgical cap used, mask used, sterile drape used during line insertion, skin prep agent completely dried prior to procedure Sterility Technique Not Completely Performed Due to Extreme Emergency: No Site Prep: alcohol Procedure Details Indication: need for IV access Needle Size/Type: 18 gauge angiocath Orientation: Left Location: Hand Imaging Guidance Used: No SIGNATURE: Sarah Kemp APRN.CRNA PATIENT NAME: Juliette Crews DATE: October 05, 2022 TIME: 9:26 AM CSN: [id number] Valley Hospital05-02-2023 NoteHNO ID: [id number] Author: Sarah Kemp APRN.CRNA Service: Anesthesiology Author Type: Nurse Forging Press Operator Type: Anesthesia Procedure Notes Filed: 10/05/2022 8:37 AM Note Text: ANESTHESIOLOGY PROCEDURE NOTE Airway General Information Procedure Start Time/Medication Administration: 10/05/2022 8:15 AM Patient location during procedure: OR Timeout Performed Pre-procedure: timeout performed Consent Obtained: Yes Patient identity confirmed: arm band Staffing HEAD OF MOBILE: Sarah Kemp APRN.HEAD OF MOBILE Performed by: CARMENCITA Indications and Patient Condition Indications for airway management: anesthesia and airway protection Preoxygenated: yes anesthesia circuit Patient position: sniffing Method: asleep Cricoid Pressure: No Manual In-Line Stabilization: No Difficult Mask: No Final Airway Details Final airway type: endotracheal airway Final Endotracheal Airway: ETT Cuffed: yes Successful intubation technique: direct laryngoscopy Endotracheal tube insertion site: oral Blade: Molina Blade size: #2 ETT size (mm): 7.0 Measured from: lips Measurement (cm): 21 Placement verified by: chest auscultation and capnometry Cormack-Lehane Classification: grade I - full view of glottis Number of attempts at approach: 1 Failed airway: no Airway not difficult SIGNATURE: Sarah Kemp APRN.CRNA PATIENT NAME: Juliette Crews DATE: October 05, 2022 TIME: 8:37 AM CSN: [id number] Valley Hospital04-20-[address] September 23, 2022 12:28pm Note Date/Time September 23, 2022 12: 28pm [facility] [address] [place] [address] Progress Note - Wound Care 09/23/22 1225 MR#: [id number] Acct: [id number] Name: JULIETTE CREWS RAI Rep #:[id number] : 1975 47 From: Savannah neri MD PCP: Kassie Polanco HUMAN RESOURCES TRAINING MANAGER-C Status:REG R CR Location: History of Present Illness Date of Service: 09/23/22 Chief Complaint: Recurrent sacral pressure sore, Stage III. History of Wound: Ms. Crews is a 46-year-old woman with a history of spina bifidareturns today with a 10 day history of breakdown and recurrence of a previous sacral pressure ulcer. She denies any known precipitating factor. Mother states that she noted it on the 07 of December. Has been applying dry dressing. Nosignificant improvement. She typically a lot of moisture in the area and there has been. She otherwise feels well denies chills, fever nausea vomiting. Progress of Wound: Stable ulcer, no acute concerns at this time. Surgery is scheduled for the 05 of October. Objective Data Objective Data Vital Signs: Vital Signs Temp Pulse Resp BP O2 Del Method 97.5 F L 101 H 16 108/78 Room Air 09/23/22 11:14 09/23/22 11:14 09/23/22 11:14 09/23/22 11:14 09/23/22 11:14 Oxygen Delivery Method Room Air Charges/Coding Procedures Integumentary 111xxx-113xx: 61411 Sherlyn subq tissue 20 sq cm/< Physical Exam Const alert, oriented x3 and no apparent distress General Appearance: cooperative and well kempt HEENT normocephalic and hearing grossly normal bilaterally Head and Scalp: normal to inspection and atraumatic Neck full ROM and supple Resp normal respiratory effort Effort and Inspection: able to speak in complete sentences Skin Wounds: wounds noted Neuro oriented x3, CN's II-XII intact bilaterally and moves all extremities Psych mental status grossly normal, cooperative and affect normal Appearance: grossly normal Speech: normal speech Debridement Note Debridement Note Wound debrided: Sacral Type of Debridement: Excisional debridement Anesthesia Used: 5% Lidocaine Gel Depth: Down to and including healthy tissue and in the subcutaneous layer Percentage of wound debrided: 100 Instrument Used: 5mm curette Tissue Removed: Slough and devitalized tissue Severity: Fat Layer Exposed Amount of bleeding with debridement: Mild Bleeding Controlled with: Pressure Patient tolerated procedure: Patient tolerated procedure well Post-Debridement Measurements and Additional Note: Post-Debridement Measurements/Treatment - Nurse 1 - General Ulcer Assessment Start: 09/09/22 11:23 Freq: Status: Active Protocol: TOBIN Activity Type Activity Date Activity User E-sign Co-sign Detail Recorded Client Recorded Date Recorded By Document 09/09/22 11:24 [id number] 09/09/22 11:31 Document 09/16/22 11:25 [facility] [id number] 09/16/22 11:33 [facility] Document 09/23/22 11:14 [facility] [id number] 09/23/22 11:21 [facility] 09/09/22 09/16/22 09/23/22 11:24 11:25 11:14 - Today's Visit Information Type of service Follow-up Visit Follow-up Visit 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 (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 (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 ) ) ) Arrival Mode Wheelchair Wheelchair Wheelchair Transfer Assistance Manual Other Other Transfer Assist (Other) X2 2 caregivers transfer pt Accompanied by 2 CAREGIVERS 2 caregivers Patient Identification Verified (Name & Yes Yes ) Patient Requires Transmission-Based No No Precautions Vital Signs Temperature (97.8 F-99.1 F) 97.1 F L 97.5 F L 97.5 F L Temperature Source Temporal Temporal Temporal Pulse Rate (60-100) 108 H 101 H 101 H Pulse Location Monitor Monitor Monitor Respiratory Rate (12-18) 20 H 18 16 Respiratory rate source Observation Observation Observation Oxygen Delivery Method Room Air Room Air Blood Pressure (90/60-120/80) 112/75 146/87 H 108/78 Blood Pressure Mean (mm Hg) 87 106 88 Source Monitor Monitor Monitor Position Sitting Sitting Blood Pressure Location Left Forearm Left Forearm History Since Last Visit- (Skip if this is Patient's initial visit) Have you changed medications since your No No No last visit? Any new allergies or adverse reactions No No No Had a fall/change in ADL's that may No No No increase risk of falls Signs or symptoms of abuse and/or No No No neglect since last visit Have you been in the hospital since your No No No last visit? Has dressing in place as prescribed Yes Yes Yes Has compression in place as prescribed N/A N/A Has offloadiing in place as prescribed Yes N/A N/A Experienced any changes in pain level or No No No management Left Footwear Slipper Slipper Right Footwear Slipper Slipper Pain Scale: 0-10 Numeric Is Patient Pain Free? Yes Yes Yes WC - Nurse 1 - General Ulcer Measurement Start: 09/09/22 11:23 Freq: Status: Active Protocol: Activity Type Activity Date Activity User E-sign Co-sign Detail Recorded Client Recorded Date Recorded By Document 09/09/22 11:24 [id number] 09/09/22 11:31 DL Document 09/16/22 11:25 [facility] [id number] 09/16/22 11:33 BMF Document 09/23/22 11:14 [facility] [id number] 09/23/22 11:21 BMF 09/09/22 09/16/22 09/23/22 11:24 11:25 11:14 Wound Center Nurse 1 #6- sacral cluster -Combined with other wound No No -Current Size (cm) - Length 2.6 2.7 2.2 -Current Size (cm) - Width 2.1 1.9 2.3 -Current Size (cm) - Depth 1.1 1.4 1.6 -Total Square Cm 5.46 5.13 5.06 -Date of Last Picture (Recall this 09/16/22 09/23/22 field) -Photo Taken No Yes Yes -Epithelialization None Present None Present -Tunneling No No -Undermining/Tunneling No No -Undermining/Tunneling Starts (O'clock 1 ) -Undermining/Tunneling Ends (O'clock) 2 -Maximum Distance (cm) 1 -Circular Undermining No No -Exudate Amt Medium Medium -Exudate Type Serosanguineous Serosanguineous Serous -Wound Margin Thickened & Thickened & Thickened & Rolled Under Rolled Under Rolled Under -Granulation Amt None Present (0 None Present (0 Small (1-33%) %) %) -Granulation Quality Red -Slough/Fibrin Yes Yes -Necrosis Amt Large (67-100%) Large (67-100%) Large (67-100%) -Necrotic Tissue Type Adherent Slough Adherent Slough Adherent Slough -Structure Exposed N/A -Texture (Patience-wound Skin Appearance) Scarring Assessed, Assessed, Scarring Scarring -Moisture (Patience-wound Skin Appearance) No Abnormality Assessed Assessed -Color (Patience-wound Skin Appearance) No Abnormality Assessed, Assessed Erythema -Temperature (Patience-wound Skin No Abnormality No Abnormality No Abnormality Appearance) (Pt Warm) (Pt Warm) (Pt Warm) -Tenderness on Palpation (Patience-wound No No No Skin Appearance) -Ulcer Cleansing Rinsed/ Rinsed/ Rinsed/ Irrigated with Irrigated with Irrigated with Saline Saline Saline -Foul Odor after Cleansing No No No -Anesthetic Used 5% Lidocaine 5% Lidocaine 5% Lidocaine Gel Gel Gel WC - Nurse 2 - General Ulcer CM Notes Start: 09/09/22 11:23 Freq: Status: Active Protocol: Activity Type Activity Date Activity User E-sign Co-sign Detail Recorded Client Recorded Date Recorded By Document 09/09/22 11:51 MW [id number] 09/09/22 11:54 MW Document 09/16/22 12:02 MW [id number] 09/16/22 12:03 MW Document 09/23/22 11:30 MW [id number] 09/23/22 11:34 MW 09/09/22 09/16/22 09/23/22 11:51 12:02 11:30 Wound Center Nurse 2 #6- sacral cluster -Time 11:51 12:02 11:30 -Correct Patient Yes Yes Yes -Correct Side, Site, Position Yes Yes Yes -Correct Procedure Yes Yes Yes -Procedure Performed Yes Yes Yes -Type of Procedure Debridement Debridement Debridement -Clinical Debridement Subcutaneous Subcutaneous Subcutaneous -Tissue Removed Subcutaneous Subcutaneous Subcutaneous -Post Debridement (cm) - Length 2.5 2.5 2.4 -Post Debridement (cm) - Width 2.5 2.1 2.5 -Post Debridement (cm) - Depth 1.0 1.0 1.2 -Total Square (Post) (cm) 6.25 5.25 6.00 -Area of Debridement (cm) - Length 2.5 2.5 2.4 -Area of Debridement (cm) - Width 2.5 2.1 2.5 -Total Square (Area) (cm) 6.25 5.25 6.00 -Tunneling No No No -Undermining/Tunneling No No No -Circular Undermining No No No -Wound/Ulcer Outcome Not Healed Not Healed Not Healed -Ulcer Cleansing Rinsed/ Rinsed/ Rinsed/ Irrigated with Irrigated with Irrigated with Saline Saline Saline -Foul Odor after Cleansing No No No -Bioengineered Tissue No No No -Bleeding Controlled with Pressure Pressure Pressure -Treatment Response Procedure Procedure Procedure Tolerated Well Tolerated Well Tolerated Well -Offloading No No No -Debridement - Subq, 1st 20sq cm Yes Yes Yes Pain Scale: 0-10 Numeric Is Patient Pain Free? Yes Yes Yes - Nurse 3 - General Ulcer D/C NN Start: 09/09/22 11:23 Freq: Status: Active Protocol: Activity Type Activity Date Activity User E-sign Co-sign Detail Recorded Client Recorded Date Recorded By Document 09/09/22 12:06 [id number] 09/09/22 12:07 Document 09/16/22 12:16 [facility] [id number] 09/16/22 12:17 [facility] Document 09/23/22 11:48 [facility] [id number] 09/23/22 11:48 [facility] 09/09/22 09/16/22 09/23/22 12:06 12:16 11:48 Wound Care Center Nurse 3 #6- sacral cluster -Ulcer Cleansing Rinsed/ Rinsed/ Rinsed/ Irrigated with Irrigated with Irrigated with Saline Saline Saline -Foul Odor after Cleansing No No No -Negative Pressure Wound Therapy N/A -Primary Dressing Applied Aquacel Extra Aquacel Extra Aquacel Extra -Other Dressing bactroban BACTROBAN, DRSG bactroban PER DL TELEGRAPH AND TELETYPE OPERATOR -Primary Dressing Covered/Secured with Secured with Secured with Tape Tape -Other Covering abd pad ABD abd; drsg per dl sanitation truck cleaner -Aquacel Extra 1 1 1 Treatment Response Procedure Procedure Procedure Tolerated Well Tolerated Well Tolerated Well Pain Scale: 0-10 Numeric Is Patient Pain Free? Yes Yes Yes Teaching: Wound Center Dressing Your Wound -Person Taught Patient,Primary Caregiver -Teaching Method Discussion, Demonstration -Response to teaching Verbalize understanding WC - Visit Discharge Discharge Condition Stable Stable Stable Ambulatory Status Wheelchair Wheelchair Wheelchair Transportation Private Auto DETENTION Private Auto TRANSPORT Accompanied by caregivers 2 caregivers from [facility] Medication Reconcilliation completed & No provided to patient/care provider Clinical Summary of Care Provided Yes Facility Type Home Health Other DETENTION Assessment/Plan Assessment/Plan (1) Pressure ulcer of sacral region, stage 3: CODE(S): L89.153 - Pressure ulcer of sacral region, stage 3 (2) Spina bifida: CODE(S): Q05.9 - Spina bifida, unspecified PLAN: Plan Debridement done as documented above, procedure was well-tolerated. Stable, no new concerns. Plan is for surgery on the 05 of October. Continue Aquacel extra, cover with gauze and ABD and change daily to twice daily depending on drainage. Continue mupirocin ointment. Offloading very strongly recommended. Continue adequate protein intake, vitamin C and zinc. Their questions were answered and they were advised to call with any further questions or concerns. Since plan is for surgery in 2 weeks, patient was discharged from the wound center. She was advised to call if she has any questions or concerns. Patient and caregivers voiced understanding. This note was generated with Klutch dictation software. It may contain incorrectwords, spelling, and punctuation that were not noted in checking the note beforesigning. 09/23/22 1228 <Electronically signed by Savannah Kinney MD> Cosigner Signature (if applicable): CC: ~ Signed [facility] Work Phone: [phone]) 732-843004-13-[address] [facility] September 16, 2022 1:23pm Note Date/Time September 16, 2022 1:2 3pm [facility] [address] [place] [address] Progress Note - Wound Care 09/16/22 1321 MR#: [id number] Acct: [id number] Name: JULIETTE CREWS RAI Rep #:[id number] : 1975 47 From: Savannah neri MD PCP: Kassie Polanco HUMAN RESOURCES TRAINING MANAGER-C Status:REG R CR Location: History of Present Illness Date of Service: 09/16/22 Chief Complaint: Recurrent sacral pressure sore, Stage III. History of Wound: Ms. Crews is a 46-year-old woman with a history of spina bifidareturns today with a 10 day history of breakdown and recurrence of a previous sacral pressure ulcer. She denies any known precipitating factor. Mother states that she noted it on the 07 of December. Has been applying dry dressing. Nosignificant improvement. She typically a lot of moisture in the area and there has been. She otherwise feels well denies chills, fever nausea vomiting. Progress of Wound: Stable ulcer, no acute concerns at this time. Objective Data Objective Data Vital Signs: Vital Signs Temp Pulse Resp BP O2 Del Method 97.5 F L 101 H 18 146/87 H Room Air 09/16/22 11:25 09/16/22 11:25 09/16/22 11:25 09/16/22 11:25 09/16/22 11:25 Oxygen Delivery Method Room Air Charges/Coding Procedures Integumentary 111xxx-113xx: 87811 Sherlyn subq tissue 20 sq cm/< Physical Exam Const alert, oriented x3 and no apparent distress General Appearance: cooperative and well kempt HEENT normocephalic and hearing grossly normal bilaterally Head and Scalp: normal to inspection and atraumatic Neck full ROM and supple Resp normal respiratory effort Effort and Inspection: able to speak in complete sentences Skin Wounds: wounds noted Neuro oriented x3, CN's II-XII intact bilaterally and moves all extremities Psych mental status grossly normal, cooperative and affect normal Appearance: grossly normal Speech: normal speech Debridement Note Debridement Note Wound debrided: Sacral Type of Debridement: Excisional debridement Anesthesia Used: 5% Lidocaine Gel Depth: Down to and including healthy tissue and in the subcutaneous layer Percentage of wound debrided: 100 Instrument Used: 5mm curette Tissue Removed: Slough and devitalized tissue Severity: Fat Layer Exposed Amount of bleeding with debridement: Mild Bleeding Controlled with: Pressure Patient tolerated procedure: Patient tolerated procedure well Post-Debridement Measurements and Additional Note: Post-Debridement Measurements/Treatment WC - Nurse 1 - General Ulcer Assessment Start: 09/09/22 11:23 Freq: Status: Active Protocol: TOBIN Activity Type Activity Date Activity User E-sign Co-sign Detail Recorded Client Recorded Date Recorded By Document 09/09/22 11:24 DL [id number] 09/09/22 11:31 DL Document 09/16/22 11:25 [facility] [id number] 09/16/22 11:33 BM 09/09/22 09/16/22 11:24 11:25 - Today's Visit Information Type of service Follow-up Visit 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 (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 ) ) Arrival Mode Wheelchair Wheelchair Transfer Assistance Manual Other Transfer Assist (Other) X2 2 Accompanied by 2 CAREGIVERS Patient Identification Verified (Name & Yes ) Patient Requires Transmission-Based No Precautions Vital Signs Temperature (97.8 F-99.1 F) 97.1 F L 97.5 F L Temperature Source Temporal Temporal Pulse Rate (60-100) 108 H 101 H Pulse Location Monitor Monitor Respiratory Rate (12-18) 20 H 18 Respiratory rate source Observation Observation Oxygen Delivery Method Room Air Blood Pressure (90/60-120/80) 112/75 146/87 H Blood Pressure Mean (mm Hg) 87 106 Source Monitor Monitor Position Sitting Blood Pressure Location Left Forearm History Since Last Visit- (Skip if this is Patient's initial visit) Have you changed medications since your No No last visit? Any new allergies or adverse reactions No No Had a fall/change in ADL's that may No No increase risk of falls Signs or symptoms of abuse and/or No No neglect since last visit Have you been in the hospital since your No No last visit? Has dressing in place as prescribed Yes Yes Has compression in place as prescribed N/A Has offloadiing in place as prescribed Yes N/A Experienced any changes in pain level or No No management Left Footwear Slipper Right Footwear Slipper Pain Scale: 0-10 Numeric Is Patient Pain Free? Yes Yes - Nurse 1 - General Ulcer Measurement Start: 09/09/22 11:23 Freq: Status: Active Protocol: Activity Type Activity Date Activity User E-sign Co-sign Detail Recorded Client Recorded Date Recorded By Document 09/09/22 11:24 DL [id number] 09/09/22 11:31 DL Document 09/16/22 11:25 BMF [id number] 09/16/22 11:33 BMF 09/09/22 09/16/22 11:24 11:25 Wound Center Nurse 1 #6- sacral cluster -Combined with other wound No -Current Size (cm) - Length 2.6 2.7 -Current Size (cm) - Width 2.1 1.9 -Current Size (cm) - Depth 1.1 1.4 -Total Square Cm 5.46 5.13 -Date of Last Picture (Recall this 09/16/22 field) -Photo Taken No Yes -Epithelialization None Present -Tunneling No -Undermining/Tunneling No -Undermining/Tunneling Starts (O'clock 1 ) -Undermining/Tunneling Ends (O'clock) 2 -Maximum Distance (cm) 1 -Circular Undermining No -Exudate Amt Medium -Exudate Type Serosanguineous Serosanguineous -Wound Margin Thickened & Thickened & Rolled Under Rolled Under -Granulation Amt None Present (0 None Present (0 %) %) -Slough/Fibrin Yes -Necrosis Amt Large (67-100%) Large (67-100%) -Necrotic Tissue Type Adherent Slough Adherent Slough -Structure Exposed N/A -Texture (Patience-wound Skin Appearance) Scarring Assessed, Scarring -Moisture (Patience-wound Skin Appearance) No Abnormality Assessed -Color (Patience-wound Skin Appearance) No Abnormality Assessed, Erythema -Temperature (Patience-wound Skin No Abnormality No Abnormality Appearance) (Pt Warm) (Pt Warm) -Tenderness on Palpation (Patience-wound No No Skin Appearance) -Ulcer Cleansing Rinsed/ Rinsed/ Irrigated with Irrigated with Saline Saline -Foul Odor after Cleansing No No -Anesthetic Used 5% Lidocaine 5% Lidocaine Gel Gel WC - Nurse 2 - General Ulcer CM Notes Start: 09/09/22 11:23 Freq: Status: Active Protocol: Activity Type Activity Date Activity User E-sign Co-sign Detail Recorded Client Recorded Date Recorded By Document 09/09/22 11:51 MW [id number] 09/09/22 11:54 MW Document 09/16/22 12:02 MW [id number] 09/16/22 12:03 MW 09/09/22 09/16/22 11:51 12:02 Wound Center Nurse 2 #6- sacral cluster -Time 11:51 12:02 -Correct Patient Yes Yes -Correct Side, Site, Position Yes Yes -Correct Procedure Yes Yes -Procedure Performed Yes Yes -Type of Procedure Debridement Debridement -Clinical Debridement Subcutaneous Subcutaneous -Tissue Removed Subcutaneous Subcutaneous -Post Debridement (cm) - Length 2.5 2.5 -Post Debridement (cm) - Width 2.5 2.1 -Post Debridement (cm) - Depth 1.0 1.0 -Total Square (Post) (cm) 6.25 5.25 -Area of Debridement (cm) - Length 2.5 2.5 -Area of Debridement (cm) - Width 2.5 2.1 -Total Square (Area) (cm) 6.25 5.25 -Tunneling No No -Undermining/Tunneling No No -Circular Undermining No No -Wound/Ulcer Outcome Not Healed Not Healed -Ulcer Cleansing Rinsed/ Rinsed/ Irrigated with Irrigated with Saline Saline -Foul Odor after Cleansing No No -Bioengineered Tissue No No -Bleeding Controlled with Pressure Pressure -Treatment Response Procedure Procedure Tolerated Well Tolerated Well -Offloading No No -Debridement - Subq, 1st 20sq cm Yes Yes Pain Scale: 0-10 Numeric Is Patient Pain Free? Yes Yes - Nurse 3 - General Ulcer D/C NN Start: 09/09/22 11:23 Freq: Status: Active Protocol: Activity Type Activity Date Activity User E-sign Co-sign Detail Recorded Client Recorded Date Recorded By Document 09/09/22 12:06 [id number] 09/09/22 12:07 MW Document 09/16/22 12:16 [facility] [id number] 09/16/22 12:17 [facility] 09/09/22 09/16/22 12:06 12:16 Wound Care Center Nurse 3 #6- sacral cluster -Ulcer Cleansing Rinsed/ Rinsed/ Irrigated with Irrigated with Saline Saline -Foul Odor after Cleansing No No -Negative Pressure Wound Therapy N/A -Primary Dressing Applied Aquacel Extra Aquacel Extra -Other Dressing bactroban BACTROBAN, DRSG PER DL TELEGRAPH AND TELETYPE OPERATOR -Primary Dressing Covered/Secured with Secured with Tape -Other Covering abd pad ABD -Aquacel Extra 1 1 Treatment Response Procedure Procedure Tolerated Well Tolerated Well Pain Scale: 0-10 Numeric Is Patient Pain Free? Yes Yes Teaching: Wound Center Dressing Your Wound -Person Taught Patient,Primary Caregiver -Teaching Method Discussion, Demonstration -Response to teaching Verbalize understanding WC - Visit Discharge Discharge Condition Stable Stable Ambulatory Status Wheelchair Wheelchair Transportation Private Auto DETENTION TRANSPORT Accompanied by caregivers Medication Reconcilliation completed & No provided to patient/care provider Clinical Summary of Care Provided Yes Other DETENTION Assessment/Plan Assessment/Plan (1) Pressure ulcer of sacral region, stage 3: CODE(S): L89.153 - Pressure ulcer of sacral region, stage 3 (2) Spina bifida: CODE(S): Q05.9 - Spina bifida, unspecified PLAN: Plan Debridement done as documented above, procedure was well-tolerated. Stable, no new concerns. Plan per patient is for surgery in October, this has however not beenfinalized.. Continue Aquacel extra, cover with gauze and ABD and change daily to twice daily depending on drainage. Continue mupirocin ointment. Offloading very strongly recommended. Continue adequate protein intake, vitamin C and zinc. Their questions were answered and they were advised to call with any further questions or concerns. Follow-up in 1 week. This note was generated with Klutch dictation software. It may contain incorrectwords, spelling, and punctuation that were not noted in checking the note beforesigning. 09/16/22 1323 <Electronically signed by Savannah Kinney MD> Cosigner Signature (if applicable): CC: ~ Signed [facility] Work Phone: [phone] [facility] September 09, 2022 5:10pm Note Date/Time September 09, 2022 5:[address] [facility] [address] [place] [address] Progress Note - Wound Care 09/09/22 1708 MR#: [id number] Acct: [id number] Name: JULIETTE CREWS RAI Rep #:[id number] : 1975 47 From: Savannah neri MD PCP: ADAN Joseph Status:REG R CR Location: History of Present Illness Date of Service: 09/09/22 Chief Complaint: Recurrent sacral pressure sore, Stage III. History of Wound: Ms. Crews is a 46-year-old woman with a history of spina bifidareturns today with a 10 day history of breakdown and recurrence of a previous sacral pressure ulcer. She denies any known precipitating factor. Mother states that she noted it on the 07 of December. Has been applying dry dressing. Nosignificant improvement. She typically a lot of moisture in the area and there has been. She otherwise feels well denies chills, fever nausea vomiting. Progress of Wound: Stable ulcer, no acute concerns at this time. Objective Data Objective Data Vital Signs: Vital Signs Temp Pulse Resp BP 97.1 F L 108 H 20 H 112/75 09/09/22 11:24 09/09/22 11:24 09/09/22 11:24 09/09/22 11:24 Charges/Coding Procedures Integumentary 111xxx-113xx: 27819 Sherlyn subq tissue 20 sq cm/< Physical Exam Const alert, oriented x3 and no apparent distress General Appearance: cooperative and well kempt HEENT normocephalic and hearing grossly normal bilaterally Head and Scalp: normal to inspection and atraumatic Neck full ROM and supple Resp normal respiratory effort Effort and Inspection: able to speak in complete sentences Skin Wounds: wounds noted Neuro oriented x3, CN's II-XII intact bilaterally and moves all extremities Psych mental status grossly normal, cooperative and affect normal Appearance: grossly normal Speech: normal speech Debridement Note Debridement Note Wound debrided: Sacral Type of Debridement: Excisional debridement Anesthesia Used: 5% Lidocaine Gel Depth: Down to and including healthy tissue and in the subcutaneous layer Percentage of wound debrided: 100 Instrument Used: 5mm curette Tissue Removed: Slough and devitalized tissue Severity: Fat Layer Exposed Amount of bleeding with debridement: Mild Bleeding Controlled with: Pressure Patient tolerated procedure: Patient tolerated procedure well Post-Debridement Measurements and Additional Note: Post-Debridement Measurements/Treatment JESSICA - Nurse 1 - General Ulcer Assessment Start: 09/09/22 11:23 Freq: Status: Active Protocol: TOBIN Activity Type Activity Date Activity User E-sign Co-sign Detail Recorded Client Recorded Date Recorded By Document 09/09/22 11:24 INO [id number] 09/09/22 11:31 DL 09/09/22 11:24 - Today's Visit Information Type of service 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 ) Arrival Mode Wheelchair Transfer Assistance Manual Transfer Assist (Other) X2 Patient Identification Verified (Name & Yes ) Patient Requires Transmission-Based No Precautions Vital Signs Temperature (97.8 F-99.1 F) 97.1 F L Temperature Source Temporal Pulse Rate (60-100) 108 H Pulse Location Monitor Respiratory Rate (12-18) 20 H Respiratory rate source Observation Blood Pressure (90/60-120/80) 112/75 Blood Pressure Mean (mm Hg) 87 Source Monitor History Since Last Visit- (Skip if this is Patient's initial visit) Have you changed medications since your No last visit? Any new allergies or adverse reactions No Had a fall/change in ADL's that may No increase risk of falls Signs or symptoms of abuse and/or No neglect since last visit Have you been in the hospital since your No last visit? Has dressing in place as prescribed Yes Has offloadiing in place as prescribed Yes Experienced any changes in pain level or No management Pain Scale: 0-10 Numeric Is Patient Pain Free? Yes - Nurse 1 - General Ulcer Measurement Start: 09/09/22 11:23 Freq: Status: Active Protocol: Activity Type Activity Date Activity User E-sign Co-sign Detail Recorded Client Recorded Date Recorded By Document 09/09/22 11:24 [id number] 09/09/22 11:31 DL 09/09/22 11:24 Wound Center Nurse 1 #6- sacral cluster -Current Size (cm) - Length 2.6 -Current Size (cm) - Width 2.1 -Current Size (cm) - Depth 1.1 -Total Square Cm 5.46 -Photo Taken No -Undermining/Tunneling Starts (O'clock 1 ) -Undermining/Tunneling Ends (O'clock) 2 -Maximum Distance (cm) 1 -Exudate Type Serosanguineous -Wound Margin Thickened & Rolled Under -Granulation Amt None Present (0 %) -Necrosis Amt Large (67-100%) -Necrotic Tissue Type Adherent Slough -Structure Exposed N/A -Texture (Patience-wound Skin Appearance) Scarring -Moisture (Patience-wound Skin Appearance) No Abnormality -Color (Patience-wound Skin Appearance) No Abnormality -Temperature (Patience-wound Skin No Abnormality Appearance) (Pt Warm) -Tenderness on Palpation (Patience-wound No Skin Appearance) -Ulcer Cleansing Rinsed/ Irrigated with Saline -Foul Odor after Cleansing No -Anesthetic Used 5% Lidocaine Gel - Nurse 2 - General Ulcer CM Notes Start: 09/09/22 11:23 Freq: Status: Active Protocol: Activity Type Activity Date Activity User E-sign Co-sign Detail Recorded Client Recorded Date Recorded By Document 09/09/22 11:51 MW [id number] 09/09/22 11:54 MW 09/09/22 11:51 Wound Center Nurse 2 -Time 11:51 -Correct Patient Yes -Correct Side, Site, Position Yes -Correct Procedure Yes -Procedure Performed Yes -Type of Procedure Debridement -Clinical Debridement Subcutaneous -Tissue Removed Subcutaneous -Post Debridement (cm) - Length 2.5 -Post Debridement (cm) - Width 2.5 -Post Debridement (cm) - Depth 1.0 -Total Square (Post) (cm) 6.25 -Area of Debridement (cm) - Length 2.5 -Area of Debridement (cm) - Width 2.5 -Total Square (Area) (cm) 6.25 -Tunneling No -Undermining/Tunneling No -Circular Undermining No -Wound/Ulcer Outcome Not Healed -Ulcer Cleansing Rinsed/ Irrigated with Saline -Foul Odor after Cleansing No -Bioengineered Tissue No -Bleeding Controlled with Pressure -Treatment Response Procedure Tolerated Well -Offloading No -Debridement - Subq, 1st 20sq cm Yes Pain Scale: 0-10 Numeric Is Patient Pain Free? Yes - Nurse 3 - General Ulcer D/C NN Start: 09/09/22 11:23 Freq: Status: Active Protocol: Activity Type Activity Date Activity User E-sign Co-sign Detail Recorded Client Recorded Date Recorded By Document 09/09/22 12:06 MW [id number] 09/09/22 12:07 MW 09/09/22 12:06 Wound Care Center Nurse 3 #6- sacral cluster -Ulcer Cleansing Rinsed/ Irrigated with Saline -Foul Odor after Cleansing No -Negative Pressure Wound Therapy N/A -Primary Dressing Applied Aquacel Extra -Other Dressing bactroban -Other Covering abd pad -Aquacel Extra 1 Treatment Response Procedure Tolerated Well Pain Scale: 0-10 Numeric Is Patient Pain Free? Yes Teaching: Wound Center Dressing Your Wound -Person Taught Patient,Primary Caregiver -Teaching Method Discussion, Demonstration -Response to teaching Verbalize understanding WC - Visit Discharge Discharge Condition Stable Ambulatory Status Wheelchair Transportation Private Auto Accompanied by caregivers Medication Reconcilliation completed & No provided to patient/care provider Clinical Summary of Care Provided Yes Assessment/Plan Assessment/Plan (1) Pressure ulcer of sacral region, stage 3: CODE(S): L89.153 - Pressure ulcer of sacral region, stage 3 (2) Spina bifida: CODE(S): Q05.9 - Spina bifida, unspecified PLAN: Plan Debridement done as documented above, procedure was well-tolerated. Stable, no new concerns. ? Plan per patient is for surgery in October this has however not been finalized.. Continue Aquacel extra, cover with gauze and ABD and change daily to twice daily depending on drainage. Continue mupirocin ointment. Offloading very strongly recommended. Continue adequate protein intake, vitaminC and zinc. Their questions were answered and they were advised to call with any further questions or concerns. Follow-up in 1 week. This note was generated with Klutch dictation software. It may contain incorrectwords, spelling, and punctuation that were not noted in checking the note beforesigning. 09/09/22 1710 <Electronically signed by Savannah Kinney MD> Cosigner Signature (if applicable): CC: ~ Signed [facility] Work Phone: [phone] [facility] August 26, 2022 12:34pm Note Date/Time August 26, 2022 12: 30pm [facility] [address] [place] [address] Progress Note - Wound Care 08/26/22 1227 MR#: [id number] Acct: [id number] Name: JULIETTE CREWS RAI Rep #:[id number] : 1975 47 From: Savannah neri MD PCP: ADAN Joseph Status:REG R CR Location: History of Present Illness Date of Service: 08/26/22 Chief Complaint: Recurrent sacral pressure sore, Stage III. History of Wound: Ms. Crews is a 46-year-old woman with a history of spina bifidareturns today with a 10 day history of breakdown and recurrence of a previous sacral pressure ulcer. She denies any known precipitating factor. Mother states that she noted it on the 07 of December. Has been applying dry dressing. Nosignificant improvement. She typically a lot of moisture in the area and there has been. She otherwise feels well denies chills, fever nausea vomiting. Progress of Wound: Stable. No new concerns at this time. Scheduled for her procedure in October. Objective Data Objective Data Vital Signs: Vital Signs Temp Pulse Resp BP O2 Del Method 97 F L 91 16 121/80 H Room Air 08/12/22 11:18 08/26/22 10:57 08/26/22 10:57 08/26/22 10:57 08/26/22 10:57 Oxygen Delivery Method Room Air Physical Exam Const alert, oriented x3 and no apparent distress General Appearance: cooperative and well kempt HEENT normocephalic and hearing grossly normal bilaterally Head and Scalp: normal to inspection and atraumatic Neck full ROM and supple Resp normal respiratory effort Effort and Inspection: able to speak in complete sentences Skin Wounds: wounds noted Neuro oriented x3, CN's II-XII intact bilaterally and moves all extremities Psych mental status grossly normal, cooperative and affect normal Appearance: grossly normal Speech: normal speech Debridement Note Debridement Note Wound debrided: Sacral Type of Debridement: Excisional debridement Anesthesia Used: 5% Lidocaine Gel Depth: Down to and including healthy tissue and in the subcutaneous layer Percentage of wound debrided: 100 Instrument Used: 5mm curette Tissue Removed: Slough and devitalized tissue Severity: Fat Layer Exposed Amount of bleeding with debridement: Mild Bleeding Controlled with: Pressure Patient tolerated procedure: Patient tolerated procedure well Post-Debridement Measurements and Additional Note: Post-Debridement Measurements/Treatment JESSICA - Nurse 1 - General Ulcer Assessment Start: 08/05/22 10:27 Freq: Status: Active Protocol: TOBIN Activity Type Activity Date Activity User E-sign Co-sign Detail Recorded Client Recorded Date Recorded By Document 08/05/22 10:27 [facility] [id number] 08/05/22 10:37 [facility] Document 08/12/22 11:18 [facility] [id number] 08/12/22 11:24 BM Document 08/26/22 10:57 [facility] [id number] 08/26/22 11:05 [facility] 08/05/22 08/12/22 08/26/22 10:27 11:18 10:57 - Today's Visit Information Type of service Follow-up Visit Follow-up Visit 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 (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 (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 ) ) ) Arrival Mode Wheelchair Wheelchair Wheelchair Transfer Assistance Manual Other Other Transfer Assist (Other) 2 W/ SLIDE 2 2 BOARD Accompanied by 2 CAREGIVERS 2CAREGIVERS 2 CAREGIVERS Patient Identification Verified (Name & Yes Yes Yes ) Patient Requires Transmission-Based No No No Precautions Vital Signs Temperature (97.8 F-99.1 F) 98.4 F 97 F L Temperature Source Temporal Temporal Pulse Rate (60-100) 110 H 109 H 91 Pulse Location Monitor Monitor Monitor Respiratory Rate (12-18) 16 16 Respiratory rate source Observation Observation Oxygen Delivery Method Room Air Room Air Blood Pressure (90/60-120/80) 138/98 H 126/87 H 121/80 H Blood Pressure Mean (mm Hg) 111 100 93 Source Monitor Monitor Monitor Position Sitting Sitting Sitting Blood Pressure Location Right Arm Right Forearm Right Forearm History Since Last Visit- (Skip if this is Patient's initial visit) Have you changed medications since your No No No last visit? Any new allergies or adverse reactions No No No Had a fall/change in ADL's that may No No No increase risk of falls Signs or symptoms of abuse and/or No No No neglect since last visit Have you been in the hospital since your No No No last visit? Has dressing in place as prescribed Yes Yes Yes Has compression in place as prescribed N/A N/A N/A Has offloadiing in place as prescribed N/A N/A N/A Experienced any changes in pain level or No No No management Left Footwear Regular Shoe Slipper Slipper Right Footwear Regular Shoe Slipper Slipper Pain Scale: 0-10 Numeric Is Patient Pain Free? Yes Yes Yes - Nurse 1 - General Ulcer Measurement Start: 08/05/22 10:27 Freq: Status: Active Protocol: Activity Type Activity Date Activity User E-sign Co-sign Detail Recorded Client Recorded Date Recorded By Document 08/05/22 10:27 [facility] [id number] 08/05/22 10:37 [facility] Document 08/12/22 11:18 [facility] [id number] 08/12/22 11:24 [facility] Document 08/26/22 10:57 [facility] [id number] 08/26/22 11:05 [facility] 08/05/22 08/12/22 08/26/22 10:27 11:18 10:57 Wound Center Nurse 1 #6- sacral cluster -Combined with other wound No No No -Current Size (cm) - Length 2 2.1 2.5 -Current Size (cm) - Width 2.7 2.9 2.4 -Current Size (cm) - Depth 1.3 1 1 -Total Square Cm 5.4 6.09 6.00 -Date of Last Picture (Recall this 08/05/22 08/12/22 08/26/22 field) -Photo Taken Yes Yes Yes -Epithelialization None Present None Present None Present -Tunneling No No No -Undermining/Tunneling No No No -Circular Undermining No No No -Exudate Amt Medium Medium Medium -Exudate Type Serosanguineous Serosanguineous Serous -Wound Margin Thickened Thickened Distinct, Outline Attached -Granulation Amt Small (1-33%) Small (1-33%) None Present (0 %) -Granulation Quality [place] Red -Slough/Fibrin Yes Yes Yes -Necrosis Amt Large (67-100%) Large (67-100%) Large (67-100%) -Necrotic Tissue Type Adherent Slough Adherent Slough Adherent Slough -Texture (Patience-wound Skin Appearance) Assessed, Assessed, Assessed, Scarring Scarring Scarring -Moisture (Patience-wound Skin Appearance) Assessed Assessed Assessed -Color (Patience-wound Skin Appearance) Assessed, Assessed Assessed Erythema -Temperature (Patience-wound Skin No Abnormality No Abnormality No Abnormality Appearance) (Pt Warm) (Pt Warm) (Pt Warm) -Tenderness on Palpation (Patience-wound No No No Skin Appearance) -Ulcer Cleansing Soap and Water Rinsed/ Soap and Water Irrigated with Saline -Foul Odor after Cleansing No No No -Anesthetic Used 5% Lidocaine 5% Lidocaine 5% Lidocaine Gel Gel Gel WC - Nurse 2 - General Ulcer CM Notes Start: 08/05/22 10:27 Freq: Status: Active Protocol: Activity Type Activity Date Activity User E-sign Co-sign Detail Recorded Client Recorded Date Recorded By Document 08/05/22 10:48 MW [id number] 08/05/22 10:52 MW Document 08/12/22 11:28 BMF [id number] 08/12/22 11:47 BM[facility] Document 08/26/22 11:26 MW [id number] 08/26/22 11:29 MW 08/05/22 08/12/22 08/26/22 10:48 11:28 11:26 Wound Center Nurse 2 #6- sacral cluster -Time 10:49 11:30 11:27 -Correct Patient Yes Yes Yes -Correct Side, Site, Position Yes Yes Yes -Correct Procedure Yes Yes Yes -Procedure Performed Yes Yes Yes -Type of Procedure Debridement Debridement Debridement -Clinical Debridement Subcutaneous Subcutaneous Subcutaneous -Tissue Removed Subcutaneous Subcutaneous, Subcutaneous Slough -Post Debridement (cm) - Length 3.0 2.3 2.5 -Post Debridement (cm) - Width 3.0 2.6 2.5 -Post Debridement (cm) - Depth 1.7 1.1 1.1 -Total Square (Post) (cm) 9.00 5.98 6.25 -Area of Debridement (cm) - Length 3.0 2.3 2.5 -Area of Debridement (cm) - Width 3.0 2.6 2.5 -Total Square (Area) (cm) 9.00 5.98 6.25 -Tunneling No No No -Undermining/Tunneling No No No -Circular Undermining No No No -Wound/Ulcer Outcome Not Healed Not Healed Not Healed -Ulcer Cleansing Rinsed/ Rinsed/ Rinsed/ Irrigated with Irrigated with Irrigated with Saline Saline Saline -Foul Odor after Cleansing No No No -Bioengineered Tissue No No No -Bleeding Controlled with Pressure Pressure Pressure -Treatment Response Procedure Procedure Procedure Tolerated Well Tolerated Well Tolerated Well -Offloading No No -Assistive Device(s) Wheelchair -Pressure Reduction Wheelchair cushion -Debridement - Subq, 1st 20sq cm Yes Yes Yes Pain Scale: 0-10 Numeric Is Patient Pain Free? Yes Yes Yes WC - Nurse 3 - General Ulcer D/C NN Start: 08/05/22 10:27 Freq: Status: Active Protocol: Activity Type Activity Date Activity User E-sign Co-sign Detail Recorded Client Recorded Date Recorded By Document 08/05/22 11:15 [facility] [id number] 08/05/22 11:15 [facility] Document 08/12/22 11:52 [id number] 08/12/22 11:52 Document 08/26/22 11:36 BMF [id number] 08/26/22 11:38 BMF Edit Result 08/26/22 11:36 BMF (1) [id number] 08/26/22 11:40 BMF (1) #6- sacral cluster - Other Covering ABD => ABD; - Aquacel Extra 1 => 3 08/05/22 08/12/22 08/26/22 11:15 11:52 11:36 Wound Care Center Nurse 3 #6- sacral cluster -Ulcer Cleansing Rinsed/ Rinsed/ Rinsed/ Irrigated with Irrigated with Irrigated with Saline Saline Saline -Foul Odor after Cleansing No No No -Primary Dressing Applied Aquacel Extra Aquacel Extra Aquacel Extra -Other Dressing BACTROBAN BACTROBAN BACTROBAN -Primary Dressing Covered/Secured with Secured with Dry Gauze, Tape,Other Secured with Tape -Other Covering ABD ABD; -Aquacel Extra 1 1 3 Treatment Response Procedure Tolerated Well Pain Scale: 0-10 Numeric Is Patient Pain Free? Yes Yes Yes WC - Visit Discharge Discharge Condition Stable Stable Stable Ambulatory Status Wheelchair Wheelchair Wheelchair Transportation Private Auto Private Auto Private Auto Accompanied by 2 CAREGIVERS Medication Reconcilliation completed & Yes provided to patient/care provider Clinical Summary of Care Provided Yes Facility Type Home Health Other [facility] Orders Sent Yes Assessment/Plan Assessment/Plan (1) Pressure ulcer of sacral region, stage 3: CODE(S): L89.153 - Pressure ulcer of sacral region, stage 3 (2) Spina bifida: CODE(S): Q05.9 - Spina bifida, unspecified PLAN: Plan Debridement done as documented above, procedure was well-tolerated. Stable, no new concerns. Plan per patient is for surgery in October. Continue Aquacel extra, cover with gauze and ABD and change daily to twice daily depending on drainage. Continue mupirocin ointment. Offloading very strongly recommended. Continue adequate protein intake, vitamin C and zinc. Their questions were answered and they were advised to call with any further questions or concerns. Follow-up in 2 weeks. This note was generated with Klutch dictation software. It may contain incorrectwords, spelling, and punctuation that were not noted in checking the note beforesigning. 08/26/22 1234 <Electronically signed by Savannah Kinney MD> Cosigner Signature (if applicable): CC: ~ Signed [facility] Work Phone: [phone] [facility] August 12, 2022 11:39am Note Date/Time August 12, 2022 11:3 9am [facility] [address] [place] [id number] Progress Note - Wound Care 08/12/22 1137 MR#: [id number] Acct: [id number] Name: JULIETTE CREWS RAI Rep #:[id number] : 1975 47 From: Savannah neri MD PCP: Kassie Polanco NP-C Status:REG R CR Location: History of Present Illness Date of Service: 08/12/22 Chief Complaint: Recurrent sacral pressure sore, Stage III. History of Wound: Ms. Crews is a 46-year-old woman with a history of spina bifidareturns today with a 10 day history of breakdown and recurrence of a previous sacral pressure ulcer. She denies any known precipitating factor. Mother states that she noted it on the 07 of December. Has been applying dry dressing. Nosignificant improvement. She typically a lot of moisture in the area and there has been. She otherwise feels well denies chills, fever nausea vomiting. Progress of Wound: No new concerns at this time, some improvement noted. Objective Data Objective Data Vital Signs: Vital Signs Temp Pulse Resp BP O2 Del Method 97 F L 109 H 16 126/87 H Room Air 08/12/22 11:18 08/12/22 11:18 08/05/22 10:27 08/12/22 11:18 08/05/22 10:27 Oxygen Delivery Method Room Air Charges/Coding Procedures Integumentary 111xxx-113xx: 82002 Sherlyn subq tissue 20 sq cm/< Physical Exam Const alert, oriented x3 and no apparent distress General Appearance: cooperative and well kempt HEENT normocephalic and hearing grossly normal bilaterally Head and Scalp: normal to inspection and atraumatic Neck full ROM and supple Resp normal respiratory effort Effort and Inspection: able to speak in complete sentences Skin Wounds: wounds noted Neuro oriented x3, CN's II-XII intact bilaterally and moves all extremities Psych mental status grossly normal, cooperative and affect normal Appearance: grossly normal Speech: normal speech Debridement Note Debridement Note Wound debrided: Sacral Type of Debridement: Excisional debridement Anesthesia Used: 5% Lidocaine Gel Depth: Down to and including healthy tissue and in the subcutaneous layer Percentage of wound debrided: 100 Instrument Used: 5mm curette Tissue Removed: Slough and devitalized tissue Severity: Fat Layer Exposed Amount of bleeding with debridement: Mild Bleeding Controlled with: Pressure Patient tolerated procedure: Patient tolerated procedure well Post-Debridement Measurements and Additional Note: Post-Debridement Measurements/Treatment - Nurse 1 - General Ulcer Assessment Start: 08/05/22 10:27 Freq: Status: Active Protocol: TOBIN Activity Type Activity Date Activity User E-sign Co-sign Detail Recorded Client Recorded Date Recorded By Document 08/05/22 10:27 [facility] [id number] 08/05/22 10:37 [facility] Document 08/12/22 11:18 [facility] [id number] 08/12/22 11:24 [facility] 08/05/22 08/12/22 10:27 11:18 - Today's Visit Information Type of service Follow-up Visit 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 (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 ) ) Arrival Mode Wheelchair Wheelchair Transfer Assistance Manual Other Transfer Assist (Other) 2 W/ SLIDE 2 BOARD Accompanied by 2 CAREGIVERS 2CAREGIVERS Patient Identification Verified (Name & Yes Yes ) Patient Requires Transmission-Based No No Precautions Vital Signs Temperature (97.8 F-99.1 F) 98.4 F 97 F L Temperature Source Temporal Temporal Pulse Rate (60-100) 110 H 109 H Pulse Location Monitor Monitor Respiratory Rate (12-18) 16 Respiratory rate source Observation Oxygen Delivery Method Room Air Blood Pressure (90/60-120/80) 138/98 H 126/87 H Blood Pressure Mean (mm Hg) 111 100 Source Monitor Monitor Position Sitting Sitting Blood Pressure Location Right Arm Right Forearm History Since Last Visit- (Skip if this is Patient's initial visit) Have you changed medications since your No No last visit? Any new allergies or adverse reactions No No Had a fall/change in ADL's that may No No increase risk of falls Signs or symptoms of abuse and/or No No neglect since last visit Have you been in the hospital since your No No last visit? Has dressing in place as prescribed Yes Yes Has compression in place as prescribed N/A N/A Has offloadiing in place as prescribed N/A N/A Experienced any changes in pain level or No No management Left Footwear Regular Shoe Slipper Right Footwear Regular Shoe Slipper Pain Scale: 0-10 Numeric Is Patient Pain Free? Yes Yes WC - Nurse 1 - General Ulcer Measurement Start: 08/05/22 10:27 Freq: Status: Active Protocol: Activity Type Activity Date Activity User E-sign Co-sign Detail Recorded Client Recorded Date Recorded By Document 08/05/22 10:27 [facility] [id number] 08/05/22 10:37 [facility] Document 08/12/22 11:18 [facility] [id number] 08/12/22 11:24 [facility] 08/05/22 08/12/22 10:27 11:18 Wound Center Nurse 1 #6- sacral cluster -Combined with other wound No No -Current Size (cm) - Length 2 2.1 -Current Size (cm) - Width 2.7 2.9 -Current Size (cm) - Depth 1.3 1 -Total Square Cm 5.4 6.09 -Date of Last Picture (Recall this 08/05/22 08/12/22 field) -Photo Taken Yes Yes -Epithelialization None Present None Present -Tunneling No No -Undermining/Tunneling No No -Circular Undermining No No -Exudate Amt Medium Medium -Exudate Type Serosanguineous Serosanguineous -Wound Margin Thickened Thickened -Granulation Amt Small (1-33%) Small (1-33%) -Granulation Quality [place] Red -Slough/Fibrin Yes Yes -Necrosis Amt Large (67-100%) Large (67-100%) -Necrotic Tissue Type Adherent Slough Adherent Slough -Texture (Patience-wound Skin Appearance) Assessed, Assessed, Scarring Scarring -Moisture (Patience-wound Skin Appearance) Assessed Assessed -Color (Patience-wound Skin Appearance) Assessed, Assessed Erythema -Temperature (Patience-wound Skin No Abnormality No Abnormality Appearance) (Pt Warm) (Pt Warm) -Tenderness on Palpation (Patience-wound No No Skin Appearance) -Ulcer Cleansing Soap and Water Rinsed/ Irrigated with Saline -Foul Odor after Cleansing No No -Anesthetic Used 5% Lidocaine 5% Lidocaine Gel Gel WC - Nurse 2 - General Ulcer CM Notes Start: 08/05/22 10:27 Freq: Status: Active Protocol: Activity Type Activity Date Activity User E-sign Co-sign Detail Recorded Client Recorded Date Recorded By Document 08/05/22 10:48 MW [id number] 08/05/22 10:52 MW 08/05/22 10:48 Wound Center Nurse 2 -Time 10:49 -Correct Patient Yes -Correct Side, Site, Position Yes -Correct Procedure Yes -Procedure Performed Yes -Type of Procedure Debridement -Clinical Debridement Subcutaneous -Tissue Removed Subcutaneous -Post Debridement (cm) - Length 3.0 -Post Debridement (cm) - Width 3.0 -Post Debridement (cm) - Depth 1.7 -Total Square (Post) (cm) 9.00 -Area of Debridement (cm) - Length 3.0 -Area of Debridement (cm) - Width 3.0 -Total Square (Area) (cm) 9.00 -Tunneling No -Undermining/Tunneling No -Circular Undermining No -Wound/Ulcer Outcome Not Healed -Ulcer Cleansing Rinsed/ Irrigated with Saline -Foul Odor after Cleansing No -Bioengineered Tissue No -Bleeding Controlled with Pressure -Treatment Response Procedure Tolerated Well -Offloading No -Debridement - Subq, 1st 20sq cm Yes Pain Scale: 0-10 Numeric Is Patient Pain Free? Yes - Nurse 3 - General Ulcer D/C NN Start: 08/05/22 10:27 Freq: Status: Active Protocol: Activity Type Activity Date Activity User E-sign Co-sign Detail Recorded Client Recorded Date Recorded By Document 08/05/22 11:15 [facility] [id number] 08/05/22 11:15 [facility] 08/05/22 11:15 Wound Care Center Nurse 3 #6- sacral cluster -Ulcer Cleansing Rinsed/ Irrigated with Saline -Foul Odor after Cleansing No -Primary Dressing Applied Aquacel Extra -Other Dressing BACTROBAN -Primary Dressing Covered/Secured with Secured with Tape,Other -Other Covering ABD -Aquacel Extra 1 Treatment Response Procedure Tolerated Well Pain Scale: 0-10 Numeric Is Patient Pain Free? Yes WC - Visit Discharge Discharge Condition Stable Ambulatory Status Wheelchair Transportation Private Auto Accompanied by 2 CAREGIVERS Other DETENTION Assessment/Plan Assessment/Plan (1) Pressure ulcer of sacral region, stage 3: CODE(S): L89.153 - Pressure ulcer of sacral region, stage 3 (2) Spina bifida: CODE(S): Q05.9 - Spina bifida, unspecified PLAN: Plan Debridement done as documented above, procedure was well-tolerated. Some improvement noted, no new concerns. Still awaiting neck steps from plastics. Continue Aquacel extra, cover with gauze and ABD and change daily to twice dailydepending on drainage. Continue mupirocin ointment. Offloading very strongly recommended. Continue adequate protein intake, vitamin C and zinc. Their questions were answered and they were advised to call with any further questionsor concerns. Follow-up in 1 week. This note was generated with Klutch dictation software. It may contain incorrectwords, spelling, and punctuation that were not noted in checking the note beforesigning. 08/12/22 1133 <Electronically signed by Savannah Kinney MD> Cosigner Signature (if applicable): CC: ~ Signed [facility] Work Phone: 1(659) 852-212603-02-2023 Miscellaneous Notes* Telephone Encounter - Nunu Alex LPN - 08/05/2022 3:34 PM EST Hi- Dr. Quinn saw this patient yesterday in office. Would this be okay to call in instead of[facility] if she would like to go through her pharmacy? Thank you! Nunu Alex LPN [facility]ney [facility] August 05, 2022 1:30pm Note Date/Time August 05, 2022 1:[address] [facility] [address] [place] [address] Progress Note - Wound Care 08/05/22 1327 MR#: [id number] Acct: [id number] Name: JULIETTE CREWS RAI Rep #:[id number] : 1975 47 From: Savannah neri MD PCP: Kassie Polanco HUMAN RESOURCES TRAINING MANAGER-C Status:REG R CR Location: History of Present Illness Date of Service: 08/05/22 Chief Complaint: Recurrent sacral pressure sore, Stage III. History of Wound: Ms. Crews is a 46-year-old woman with a history of spina bifidareturns today with a 10 day history of breakdown and recurrence of a previous sacral pressure ulcer. She denies any known precipitating factor. Mother states that she noted it on the 07 of December. Has been applying dry dressing. Nosignificant improvement. She typically a lot of moisture in the area and there has been. She otherwise feels well denies chills, fever nausea vomiting. Progress of Wound: No new concerns at this time. Established with plastic surgery and plan is for surgery however date has not been fixed. Objective Data Objective Data Vital Signs: Vital Signs Temp Pulse Resp BP O2 Del Method 98.4 F 110 H 16 138/98 H Room Air 08/05/22 10:27 08/05/22 10:27 08/05/22 10:27 08/05/22 10:27 08/05/22 10:27 Oxygen Delivery Method Room Air Charges/Coding Procedures Integumentary 111xxx-113xx: 36251 Sherlyn subq tissue 20 sq cm/< Physical Exam Const alert, oriented x3 and no apparent distress General Appearance: cooperative and well kempt HEENT normocephalic and hearing grossly normal bilaterally Head and Scalp: normal to inspection and atraumatic Neck full ROM and supple Resp normal respiratory effort Effort and Inspection: able to speak in complete sentences Skin Wounds: wounds noted Neuro oriented x3, CN's II-XII intact bilaterally and moves all extremities Psych mental status grossly normal, cooperative and affect normal Appearance: grossly normal Attitude: calm Speech: normal speech Debridement Note Debridement Note Wound debrided: Sacral Type of Debridement: Excisional debridement Anesthesia Used: 5% Lidocaine Gel Depth: Down to and including healthy tissue and in the subcutaneous layer Percentage of wound debrided: 100 Instrument Used: 5mm curette Tissue Removed: Slough and devitalized tissue Severity: Fat Layer Exposed Amount of bleeding with debridement: Mild Bleeding Controlled with: Pressure Patient tolerated procedure: Patient tolerated procedure well Post-Debridement Measurements and Additional Note: Post-Debridement Measurements/Treatment - Nurse 1 - General Ulcer Assessment Start: 08/05/22 10:27 Freq: Status: Active Protocol: APRIL Activity Type Activity Date Activity User E-sign Co-sign Detail Recorded Client Recorded Date Recorded By Document 08/05/22 10:27 [facility] [id number] 08/05/22 10:37 [facility] 08/05/22 10:27 WC - Today's Visit Information Type of service 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 ) Arrival Mode Wheelchair Transfer Assistance Manual Transfer Assist (Other) 2 W/ SLIDE BOARD Accompanied by 2 CAREGIVERS Patient Identification Verified (Name & Yes ) Patient Requires Transmission-Based No Precautions Vital Signs Temperature (97.8 F-99.1 F) 98.4 F Temperature Source Temporal Pulse Rate (60-100) 110 H Pulse Location Monitor Respiratory Rate (12-18) 16 Respiratory rate source Observation Oxygen Delivery Method Room Air Blood Pressure (90/60-120/80) 138/98 H Blood Pressure Mean (mm Hg) 111 Source Monitor Position Sitting Blood Pressure Location Right Arm History Since Last Visit- (Skip if this is Patient's initial visit) Have you changed medications since your No last visit? Any new allergies or adverse reactions No Had a fall/change in ADL's that may No increase risk of falls Signs or symptoms of abuse and/or No neglect since last visit Have you been in the hospital since your No last visit? Has dressing in place as prescribed Yes Has compression in place as prescribed N/A Has offloadiing in place as prescribed N/A Experienced any changes in pain level or No management Left Footwear Regular Shoe Right Footwear Regular Shoe Pain Scale: 0-10 Numeric Is Patient Pain Free? Yes - Nurse 1 - General Ulcer Measurement Start: 08/05/22 10:27 Freq: Status: Active Protocol: Activity Type Activity Date Activity User E-sign Co-sign Detail Recorded Client Recorded Date Recorded By Document 08/05/22 10:27 [facility] [id number] 08/05/22 10:37 [facility] 08/05/22 10:27 Wound Center Nurse 1 #6- sacral cluster -Combined with other wound No -Current Size (cm) - Length 2 -Current Size (cm) - Width 2.7 -Current Size (cm) - Depth 1.3 -Total Square Cm 5.4 -Date of Last Picture (Recall this 08/05/22 field) -Photo Taken Yes -Epithelialization None Present -Tunneling No -Undermining/Tunneling No -Circular Undermining No -Exudate Amt Medium -Exudate Type Serosanguineous -Wound Margin Thickened -Granulation Amt Small (1-33%) -Granulation Quality [place] -Slough/Fibrin Yes -Necrosis Amt Large (67-100%) -Necrotic Tissue Type Adherent Slough -Texture (Patience-wound Skin Appearance) Assessed, Scarring -Moisture (Patience-wound Skin Appearance) Assessed -Color (Patience-wound Skin Appearance) Assessed, Erythema -Temperature (Patience-wound Skin No Abnormality Appearance) (Pt Warm) -Tenderness on Palpation (Patience-wound No Skin Appearance) -Ulcer Cleansing Soap and Water -Foul Odor after Cleansing No -Anesthetic Used 5% Lidocaine Gel WC - Nurse 2 - General Ulcer CM Notes Start: 08/05/22 10:27 Freq: Status: Active Protocol: Activity Type Activity Date Activity User E-sign Co-sign Detail Recorded Client Recorded Date Recorded By Document 08/05/22 10:48 MW [id number] 08/05/22 10:52 MW 08/05/22 10:48 Wound Center Nurse 2 -Time 10:49 -Correct Patient Yes -Correct Side, Site, Position Yes -Correct Procedure Yes -Procedure Performed Yes -Type of Procedure Debridement -Clinical Debridement Subcutaneous -Tissue Removed Subcutaneous -Post Debridement (cm) - Length 3.0 -Post Debridement (cm) - Width 3.0 -Post Debridement (cm) - Depth 1.7 -Total Square (Post) (cm) 9.00 -Area of Debridement (cm) - Length 3.0 -Area of Debridement (cm) - Width 3.0 -Total Square (Area) (cm) 9.00 -Tunneling No -Undermining/Tunneling No -Circular Undermining No -Wound/Ulcer Outcome Not Healed -Ulcer Cleansing Rinsed/ Irrigated with Saline -Foul Odor after Cleansing No -Bioengineered Tissue No -Bleeding Controlled with Pressure -Treatment Response Procedure Tolerated Well -Offloading No -Debridement - Subq, 1st 20sq cm Yes Pain Scale: 0-10 Numeric Is Patient Pain Free? Yes WC - Nurse 3 - General Ulcer D/C NN Start: 08/05/22 10:27 Freq: Status: Active Protocol: Activity Type Activity Date Activity User E-sign Co-sign Detail Recorded Client Recorded Date Recorded By Document 08/05/22 11:15 [facility] [id number] 08/05/22 11:15 [facility] 08/05/22 11:15 Wound Care Center Nurse 3 #6- sacral cluster -Ulcer Cleansing Rinsed/ Irrigated with Saline -Foul Odor after Cleansing No -Primary Dressing Applied Aquacel Extra -Other Dressing BACTROBAN -Primary Dressing Covered/Secured with Secured with Tape,Other -Other Covering ABD -Aquacel Extra 1 Treatment Response Procedure Tolerated Well Pain Scale: 0-10 Numeric Is Patient Pain Free? Yes WC - Visit Discharge Discharge Condition Stable Ambulatory Status Wheelchair Transportation Private Auto Accompanied by 2 CAREGIVERS Other DETENTION Assessment/Plan Assessment/Plan (1) Pressure ulcer of sacral region, stage 3: CODE(S): L89.153 - Pressure ulcer of sacral region, stage 3 (2) Spina bifida: CODE(S): Q05.9 - Spina bifida, unspecified PLAN: Plan Debridement done as documented above, procedure was well-tolerated. As above, has established with plastics and plan is for surgery but date still pending. Continue Aquacel extra, cover with gauze and ABD and change daily to twice dailydepending on drainage. Continue mupirocin ointment. Offloading very strongly recommended. Continue adequate protein intake, vitamin C and zinc. Their questions were answered and they were advised to call with any further questionsor concerns. Follow-up in 1 week. This note was generated with Klutch dictation software. It may contain incorrectwords, spelling, and punctuation that were not noted in checking the note beforesigning. 08/05/22 1330 <Electronically signed by Savannah Kinney MD> Cosigner Signature (if applicable): CC: ~ Signed [facility] Work Phone: 1(547) 329-626003-01-2023 NoteHNO ID: [id number] Author: Nawaf Quinn MD Service: ? Author Type: Physician Type: Progress Notes Filed: 08/05/2022 12:10 PM Note Text: Nawaf Quinn [address] [facility] [address] [place] [address] Plastic Surgery New Office Note CC: Wound Check HPI: Juliette is a 47 year old female here today for wound check. Patient is here today for sacral wound. Present since December. Previous gluteal rotational flap. PAST MEDICAL HISTORY Diagnosis Date Hydrocephalus Paraplegia Spina bifida UTI (lower urinary tract infection) PAST SURGICAL HISTORY Procedure Laterality Date PAST SURGICAL HISTORY OF last in 1994 5 shunts placed PAST SURGICAL HISTORY OF rhonda in right foot PAST SURGICAL HISTORY OF bladder surgery and cath in belly button PAST SURGICAL HISTORY OF 5 buttock surgeries for pressure ulcer PAST SURGICAL HISTORY OF rhonda in back PAST SURGICAL HISTORY OF eye surgery No family history on file. Social History Tobacco Use Smoking status: Never Smokeless tobacco: Never Substance Use Topics Alcohol use: No Drug use: No Current Outpatient Medications Medication Sig sulfamethoxazole-trimethoprim (BACTRIM DS) 800-160 mg per tablet Take 1 tablet by mouth twice daily. Calcium Carbonate 1,000 mg Tab Take by mouth. ascorbic acid (VITAMIN C) 500 mg tablet Take 500 mg by mouth once daily. Multivitamins (CHEWABLE MULTI VITAMIN) Chew Take by mouth. PARoxetine 20 mg tablet Take 1 tablet by mouth once daily. oxybutynin XL (DITROPAN XL) 15 mg 24 hr tablet Take 1 tablet by mouth once daily. No current facility-administered medications for this visit. ALLERGIES Allergen Reactions Augmentin [Amoxicil* Diarrhea Ciprofloxacin Other: See Comments joint swelling Zpak [Azithromycin] Diarrhea REVIEW OF SYSTEMS: ROS PHYSICAL EXAM: Ht 4' 6 (1.37m) Wt 150 lb (68.0kg) BMI 36.15 kg/(m2). CONSTITUTIONAL: awake, alert, cooperative Sacral pressure wound - bone palpable, not obviously soft, wound 5x5cm, undermines all directions, epibole, no cellulitis, moderate amt of exudate, right sided previous gluteal rotation flap, insensate ASSESSMENT / PLAN: 47 year old y/o female with stage IV pressure sore of sacrum - plan for below. The risks/benefits of surgery were discussed. I have explained the risks and benefits including but not limited to infection, hematoma, seroma, open wounds, chronic wounds, prolonged time off and possibility for additional surgery. I have answered all patients questions to the best of my ability and to the patients satisfaction. The patient voiced understanding of the above and had no further questions and agreed to proceed with surgery. During this patient visit I have spent approximately 30 minutes out of 45 in counseling regarding treatment options and coordinating care. The patient is seen and examined by Dr. Quinn and the following reflects his/her service. Scribed by Oralia Burnett MA I agree with the Chief Complaint, ROS, and Past Histories independently gathered by the clinical mining support worker and the remaining scribed note accurately describes my personal service to the patient. Surgery Scheduling Juliette Crews 1975 Procedure: excision sacral pressure sore, immediate reconstruction with gluteal rotations or v-y advancement flap OR Time Needed: 3 hrs [place] or [facility] Equipment Request: clinitron bed, ronguers, rasps, plastic set, two bovies, 19F drains x2, 2-0 undyed vicryl, 3-0 nylon, stapler (extra), prineo SA Requested: Yes Anesthesia: General - prone Post op appointment: 3,6 Inpatient stay:Yes Block Needed: No Pre Testing Needed: Yes Occupational Therapy: No Cosmetic: No Nawaf Quinn, [facility]03-01-2023 History of Present illness Narrative* Nawaf Quinn MD - 08/04/2022 1:30 PM EST Images from the original note were not included. Nawaf Quinn [address] [address] Plastic Surgery New Office Note CC: Wound Check HPI: Juliette is a 47 year old female here today for wound check. Patient is here today for sacral wound. Present since December. Previous gluteal rotational flap. PAST MEDICAL HISTORY Diagnosis Date Hydrocephalus Paraplegia Spina bifida UTI (lower urinary tract infection) PAST SURGICAL HISTORY Procedure Laterality Date PAST SURGICAL HISTORY OF last in 1994 5 shunts placed PAST SURGICAL HISTORY OF rhonda in right foot PAST SURGICAL HISTORY OF bladder surgery and cath in belly button PAST SURGICAL HISTORY OF 5 buttock surgeries for pressure ulcer PAST SURGICAL HISTORY OF rhonda in back PAST SURGICAL HISTORY OF eye surgery No family history on file. Social History Tobacco Use Smoking status: Never Smokeless tobacco: Never Substance Use Topics Alcohol use: No Drug use: No Current Outpatient Medications Medication Sig sulfamethoxazole-trimethoprim (BACTRIM DS) 800-160 mg per tablet Take 1 tablet by mouth twice daily. Calcium Carbonate 1,000 mg Tab Take by mouth. ascorbic acid (VITAMIN C) 500 mg tablet Take 500 mg by mouth once daily. Multivitamins (CHEWABLE MULTI VITAMIN) Chew Take by mouth. PARoxetine 20 mg tablet Take 1 tablet by mouth once daily. oxybutynin XL (DITROPAN XL) 15 mg 24 hr tablet Take 1 tablet by mouth once daily. No current facility-administered medications for this visit. ALLERGIES Allergen Reactions Augmentin [Amoxicil* Diarrhea Ciprofloxacin Other: See Comments joint swelling Zpak [Azithromycin] Diarrhea REVIEW OF SYSTEMS: ROS PHYSICAL EXAM: Ht 4' 6 (1.37m) Wt 150 lb (68.0kg) BMI 36.15 kg/(m^2). CONSTITUTIONAL: awake, alert, cooperative Sacral pressure wound - bone palpable, not obviously soft, wound 5x5cm, undermines all directions, epibole, no cellulitis, moderate amt of exudate, right sided previous gluteal rotation flap, insensate ASSESSMENT / PLAN: 47 year old y/o female with stage IV pressure sore of sacrum - plan for below. The risks/benefits of surgery were discussed. I have explained the risks and benefits including but not limited to infection, hematoma, seroma, open wounds, chronic wounds, prolonged time off and possibility for additional surgery. I have answered all patients questions to the best of my ability and to the patients satisfaction. The patient voiced understanding of the above and had no further questions and agreed to proceed with surgery. During this patient visit I have spent approximately 30 minutes out of 45 in counseling regarding treatment options and coordinating care. The patient is seen and examined by Dr. Quinn and the following reflects his/her service. Scribed by Oralia Burnett MA I agree with the Chief Complaint, ROS, and Past Histories independently gathered by the clinical mining support worker and the remaining scribed note accurately describes my personal service to the patient. Surgery Scheduling Juliette Crews 1975 Procedure: excision sacral pressure sore, immediate reconstruction with gluteal rotations or v-y advancement flap OR Time Needed: 3 hrs [place] or [facility] Equipment Request: clinitron bed, ronguers, rasps, plastic set, two bovies, 19F drains x2, 2-0 undyed vicryl, 3-0 nylon, stapler (extra), prineo SA Requested: Yes Anesthesia: General - prone Post op appointment: 3,6 Inpatient stay:Yes Block Needed: No Pre Testing Needed: Yes Occupational Therapy: No Cosmetic: No Nawaf Quinn MD documented [facility]ney [facility] July 29, 2022 12:34pm Note Date/Time July 29, 2022 12:30pm [facility] [address] [facility] [place] [address] Progress Note - Wound Care 07/29/22 1227 MR#: [id number] Acct: [id number] Name: JULIETTE CREWS RAI Rep #:[id number] : 1975 47 From: Savannah neri MD PCP: Kassie Polanco, HUMAN RESOURCES TRAINING MANAGER-C Status:REG R CR Location: History of Present Illness Date of Service: 07/29/22 Chief Complaint: Recurrent sacral pressure sore, Stage III. History of Wound: Ms. Crews is a 46-year-old woman with a history of spina bifidareturns today with a 10 day history of breakdown and recurrence of a previous sacral pressure ulcer. She denies any known precipitating factor. Mother states that she noted it on the 07 of December. Has been applying dry dressing. Nosignificant improvement. She typically a lot of moisture in the area and there has been. She otherwise feels well denies chills, fever nausea vomiting. Progress of Wound: Stable. No new concerns or significant changes since last visit. Objective Data Objective Data Vital Signs: Vital Signs Temp Pulse Resp BP 97.5 F L 107 H 20 H 149/91 H 07/29/22 10:52 07/29/22 10:52 07/29/22 10:52 07/29/22 10:52 Lab / Micro Data Micro: Microbiology 07/22/22 10:50 Wound - Sacral Gram Stain - Final 07/22/22 10:50 Wound - Sacral Wound Culture - Final Proteus mirabilis Staphylococcus aureus 07/22/22 10:50 Wound - Sacral Anaerobic Culture - Final No anaerobic bacteria isolated. Charges/Coding Procedures Integumentary 111xxx-113xx: 98454 Sherlyn subq tissue 20 sq cm/< Physical Exam Const alert, oriented x3 and no apparent distress General Appearance: cooperative and well kempt HEENT normocephalic and hearing grossly normal bilaterally Head and Scalp: normal to inspection and atraumatic Neck full ROM and supple Resp normal respiratory effort Effort and Inspection: able to speak in complete sentences Skin Wounds: wounds noted Neuro oriented x3, CN's II-XII intact bilaterally and moves all extremities Psych mental status grossly normal, cooperative and affect normal Appearance: grossly normal Attitude: calm Speech: normal speech Debridement Note Debridement Note Wound debrided: Sacral Type of Debridement: Excisional debridement Anesthesia Used: 5% Lidocaine Gel Depth: Down to and including healthy tissue and in the subcutaneous layer Percentage of wound debrided: 100 Instrument Used: 5mm curette Tissue Removed: Slough and devitalized tissue Severity: Fat Layer Exposed Amount of bleeding with debridement: Mild Bleeding Controlled with: Pressure Patient tolerated procedure: Patient tolerated procedure well Post-Debridement Measurements and Additional Note: Post-Debridement Measurements/Treatment - Nurse 1 - General Ulcer Assessment Start: 07/08/22 10:14 Freq: Status: Active Protocol: [email or web address] Activity Type Activity Date Activity User E-sign Co-sign Detail Recorded Client Recorded Date Recorded By Document 07/08/22 10:15 DL [id number] 07/08/22 10:25 DL Document 07/22/22 10:10 [facility] [id number] 07/22/22 10:20 [facility] Document 07/29/22 10:52 DL [id number] 07/29/22 10:54 DL 07/08/22 07/22/22 07/29/22 10:15 10:10 10:52 - Today's Visit Information Type of service Follow-up Visit Follow-up Visit 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 (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 (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 ) ) ) Arrival Mode Wheelchair Wheelchair Wheelchair Transfer Assistance Manual,None Manual Manual,None Transfer Assist (Other) x2 2 w/slide board x1 Accompanied by mom and caregiver Patient Identification Verified (Name & Yes Yes No ) Patient Requires Transmission-Based No No Precautions Vital Signs Temperature (97.8 F-99.1 F) 98 F 97.8 F 97.5 F L Temperature Source Temporal Temporal Temporal Pulse Rate (60-100) 113 H 108 H 107 H Pulse Location Monitor Monitor Respiratory Rate (12-18) 20 H 20 H Respiratory rate source Observation Observation Blood Pressure (90/60-120/80) 97/72 148/86 H 149/91 H Blood Pressure Mean (mm Hg) 80 106 110 Source Monitor Monitor Monitor Position Sitting Blood Pressure Location Left Forearm History Since Last Visit- (Skip if this is Patient's initial visit) Have you changed medications since your No No No last visit? Any new allergies or adverse reactions No No No Had a fall/change in ADL's that may No No No increase risk of falls Signs or symptoms of abuse and/or No No No neglect since last visit Have you been in the hospital since your No No No last visit? Has dressing in place as prescribed Yes Yes Yes Has compression in place as prescribed N/A N/A N/A Has offloadiing in place as prescribed N/A Yes Experienced any changes in pain level or No No No management Left Footwear Regular Shoe Right Footwear Regular Shoe Pain Scale: 0-10 Numeric Is Patient Pain Free? Yes Yes Yes WC - Nurse 1 - General Ulcer Measurement Start: 07/08/22 10:14 Freq: Status: Active Protocol: Activity Type Activity Date Activity User E-sign Co-sign Detail Recorded Client Recorded Date Recorded By Document 07/08/22 10:15 DL [id number] 07/08/22 10:25 DL Document 07/22/22 10:10 [facility] [id number] 07/22/22 10:20 [facility] Document 07/29/22 10:52 DL [id number] 07/29/22 10:54 DL 07/08/22 07/22/22 07/29/22 10:15 10:10 10:52 Wound Center Nurse 1 #6- sacral cluster -Combined with other wound No -Current Size (cm) - Length 1.8 2.6 2.2 -Current Size (cm) - Width 1.9 2.6 2.4 -Current Size (cm) - Depth 0.7 1.6 1.5 -Total Square Cm 3.42 6.76 5.28 -Date of Last Picture (Recall this 07/22/22 field) -Photo Taken Yes Yes Yes -Epithelialization None Present -Tunneling No -Undermining/Tunneling No -Circular Undermining No -Exudate Amt Medium Medium Medium -Exudate Type Serosanguineous Serosanguineous Serosanguineous -Wound Margin Distinct, Distinct, Thickened & Outline Outline Rolled Under Attached Attached -Granulation Amt Medium (34-66%) Small (1-33%) Medium (34-66%) -Granulation Quality [place],Red Red [place],Red -Slough/Fibrin Yes -Necrosis Amt Medium (34-66%) Large (67-100%) Medium (34-66%) -Necrotic Tissue Type Adherent Slough Adherent Slough Adherent Slough -Structure Exposed N/A N/A -Texture (Patience-wound Skin Appearance) Scarring Assessed, Scarring Scarring -Moisture (Patience-wound Skin Appearance) No Abnormality Assessed Dry/Scaly -Color (Patience-wound Skin Appearance) No Abnormality Assessed, No Abnormality Erythema -Temperature (Patience-wound Skin No Abnormality No Abnormality No Abnormality Appearance) (Pt Warm) (Pt Warm) (Pt Warm) -Tenderness on Palpation (Patience-wound No No Skin Appearance) -Ulcer Cleansing Rinsed/ Rinsed/ Soap and Water Irrigated with Irrigated with Saline Saline -Foul Odor after Cleansing Yes, Due to No No Product Use -Anesthetic Used 5% Lidocaine 5% Lidocaine 5% Lidocaine Gel Gel Gel WC - Nurse 2 - General Ulcer CM Notes Start: 07/08/22 10:14 Freq: Status: Active Protocol: Activity Type Activity Date Activity User E-sign Co-sign Detail Recorded Client Recorded Date Recorded By Document 07/08/22 10:29 MW [id number] 07/08/22 10:31 MW Document 07/22/22 10:47 MW [id number] 07/22/22 10:55 MW Document 07/29/22 10:59 MW [id number] 07/29/22 11:05 MW 07/08/22 07/22/22 07/29/22 10:29 10:47 10:59 Wound Center Nurse 2 #6- sacral cluster -Time 10: 10:47 11:00 -Correct Patient Yes Yes Yes -Correct Side, Site, Position Yes Yes Yes -Correct Procedure Yes Yes Yes -Procedure Performed Yes Yes Yes -Type of Procedure Debridement Debridement Debridement -Clinical Debridement Subcutaneous Subcutaneous Subcutaneous -Tissue Removed Subcutaneous Subcutaneous Subcutaneous -Post Debridement (cm) - Length 1.8 2.3 2.8 -Post Debridement (cm) - Width 2.0 2.6 2.4 -Post Debridement (cm) - Depth 0.4 1.5 1.6 -Total Square (Post) (cm) 3.60 5.98 6.72 -Area of Debridement (cm) - Length 1.8 2.3 2.8 -Area of Debridement (cm) - Width 2.0 2.6 2.4 -Total Square (Area) (cm) 3.60 5.98 6.72 -Tunneling No No No -Undermining/Tunneling No No No -Circular Undermining No No No -Wound/Ulcer Outcome Not Healed Not Healed Not Healed -Ulcer Cleansing Rinsed/ Wound Cleanser Rinsed/ Irrigated with Irrigated with Saline Saline -Foul Odor after Cleansing No No No -Bioengineered Tissue No No No -Bleeding Controlled with Pressure Pressure Pressure -Treatment Response Procedure Procedure Procedure Tolerated Well Tolerated Well Tolerated Well -Offloading No No No -Debridement - Subq, 1st 20sq cm Yes Yes Yes Pain Scale: 0-10 Numeric Is Patient Pain Free? Yes Yes Yes WC - Nurse 3 - General Ulcer D/C NN Start: 07/08/22 10:14 Freq: Status: Active Protocol: Activity Type Activity Date Activity User E-sign Co-sign Detail Recorded Client Recorded Date Recorded By Document 07/08/22 10:31 MW [id number] 07/08/22 10:32 MW Document 07/22/22 11:07 MW [id number] 07/22/22 11:08 MW 07/08/22 07/22/22 10:31 11:07 Wound Care Center Nurse 3 #6- sacral cluster -Ulcer Cleansing Rinsed/ Rinsed/ Irrigated with Irrigated with Saline Saline -Foul Odor after Cleansing No No -Negative Pressure Wound Therapy N/A N/A -Primary Dressing Applied Aquacel Extra Aquacel Extra, NonAdherent Contact Layer -Primary Dressing Covered/Secured with Secured with Tape -Other Covering ABD PAD ABD pad -Aquacel Extra 1 1 Treatment Response Procedure Procedure Tolerated Well Tolerated Well Pain Scale: 0-10 Numeric Is Patient Pain Free? Yes Yes Teaching: Wound Center Dressing Your Wound -Person Taught Patient,Family Patient,Family, Primary Caregiver -Teaching Method Discussion, Discussion Demonstration -Response to teaching Verbalize Verbalize understanding understanding WC - Visit Discharge Discharge Condition Stable Stable Ambulatory Status Walker Wheelchair Transportation Private Auto Private Auto Accompanied by MOM mom and caregiver Medication Reconcilliation completed & No provided to patient/care provider Clinical Summary of Care Provided Yes Yes Assessment/Plan Assessment/Plan (1) Pressure ulcer of sacral region, stage 3: CODE(S): L89.153 - Pressure ulcer of sacral region, stage 3 (2) Spina bifida: CODE(S): Q05.9 - Spina bifida, unspecified PLAN: Plan Debridement done as documented above, procedure was well-tolerated. No significant change since last visit. Culture reviewed, Proteus and staph with minimal growth. Allergy to fluoroquinolones, doxycycline prescribed. Mupirocinointment also recommended. Has an appointment with plastic surgery on the . Continue Aquacel extra, cover with gauze and ABD and change daily to twice daily depending on drainage. Offloading very strongly recommended. Continue adequate protein intake, vitamin C and zinc. Their questions were answered and they were advised to call with any further questions or concerns. Follow-up in 1 week. This note was generated with Klutch dictation software. It may contain incorrectwords, spelling, and punctuation that were not noted in checking the note beforesigning. 07/29/22 1234 <Electronically signed by Savannah Kinney MD> Cosigner Signature (if applicable): CC: ~ Signed [facility] Work Phone: [phone] 318-225302-16-[address] [facility] July 22, 2022 12:59pm Note Date/Time July 22, 2022 12:59pm [facility] [address] [place] [address] Progress Note - Wound Care 07/22/22 1254 MR#: [id number] Acct: [id number] Name: JULIETTE CREWS RAI Rep #:[id number] : 1975 47 From: Savannah neri MD PCP: Kassie Polanco [employer] TRAINING MANAGER-C Status:REG R CR Location: History of Present Illness Date of Service: 07/22/22 Chief Complaint: Recurrent sacral pressure sore, Stage III. History of Wound: Ms. Crews is a 46-year-old woman with a history of spina bifidareturns today with a 10 day history of breakdown and recurrence of a previous sacral pressure ulcer. She denies any known precipitating factor. Mother states that she noted it on the 07 of December. Has been applying dry dressing. Nosignificant improvement. She typically a lot of moisture in the area and there has been. She otherwise feels well denies chills, fever nausea vomiting. Progress of Wound: Significant worsening noted since her last visit. Has not been here in 2 weeks. Here today with her mother and caregiver. Mother has been ill so care has been largely by her caregivers at home. They state that she has not been laying for too long on her back. Caregiver also states that there has been increased drainage. No chills, fever or otherwise feeling of unwell. Objective Data Objective Data Vital Signs: Vital Signs Temp Pulse Resp BP 97.8 F 108 H 20 H 148/86 H 07/22/22 10:10 07/22/22 10:10 07/08/22 10:15 07/22/22 10:10 Charges/Coding Procedures Integumentary 111xxx-113xx: 91718 Sherlyn subq tissue 20 sq cm/< Physical Exam Const alert, oriented x3 and no apparent distress General Appearance: cooperative and well kempt HEENT normocephalic and hearing grossly normal bilaterally Head and Scalp: normal to inspection and atraumatic Neck full ROM and supple Resp normal respiratory effort Effort and Inspection: able to speak in complete sentences Skin Wounds: wounds noted Neuro oriented x3, CN's II-XII intact bilaterally and moves all extremities Psych mental status grossly normal, cooperative and affect normal Appearance: grossly normal Attitude: calm Speech: normal speech Debridement Note Debridement Note Wound debrided: Sacral Type of Debridement: Excisional debridement Anesthesia Used: 5% Lidocaine Gel Depth: Down to and including healthy tissue and in the subcutaneous layer Percentage of wound debrided: 100 Instrument Used: 3mm curette Tissue Removed: Slough and devitalized tissue Severity: Fat Layer Exposed Amount of bleeding with debridement: Mild Bleeding Controlled with: Pressure Patient tolerated procedure: Patient tolerated procedure well Post-Debridement Measurements and Additional Note: Post-Debridement Measurements/Treatment - Nurse 1 - General Ulcer Assessment Start: 07/08/22 10:14 Freq: Status: Active Protocol: [email or web address] Activity Type Activity Date Activity User E-sign Co-sign Detail Recorded Client Recorded Date Recorded By Document 07/08/22 10:15 DL [id number] 07/08/22 10:25 DL Document 07/22/22 10:10 BM [id number] 07/22/22 10:20 BMF 07/08/22 07/22/22 10:15 10:10 WC - Today's Visit Information Type of service Follow-up Visit 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 (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 ) ) Arrival Mode Wheelchair Wheelchair Transfer Assistance Manual,None Manual Transfer Assist (Other) x2 2 w/slide board Accompanied by mom and caregiver Patient Identification Verified (Name & Yes Yes ) Patient Requires Transmission-Based No No Precautions Vital Signs Temperature (97.8 F-99.1 F) 98 F 97.8 F Temperature Source Temporal Temporal Pulse Rate (60-100) 113 H 108 H Pulse Location Monitor Respiratory Rate (12-18) 20 H Respiratory rate source Observation Blood Pressure (90/60-120/80) 97/72 148/86 H Blood Pressure Mean (mm Hg) 80 106 Source Monitor Monitor Position Sitting Blood Pressure Location Left Forearm History Since Last Visit- (Skip if this is Patient's initial visit) Have you changed medications since your No No last visit? Any new allergies or adverse reactions No No Had a fall/change in ADL's that may No No increase risk of falls Signs or symptoms of abuse and/or No No neglect since last visit Have you been in the hospital since your No No last visit? Has dressing in place as prescribed Yes Yes Has compression in place as prescribed N/A N/A Has offloadiing in place as prescribed N/A Experienced any changes in pain level or No No management Left Footwear Regular Shoe Right Footwear Regular Shoe Pain Scale: 0-10 Numeric Is Patient Pain Free? Yes Yes JESSICA - Nurse 1 - General Ulcer Measurement Start: 07/08/22 10:14 Freq: Status: Active Protocol: Activity Type Activity Date Activity User E-sign Co-sign Detail Recorded Client Recorded Date Recorded By Document 07/08/22 10:15 DL [id number] 07/08/22 10:25 DL Document 07/22/22 10:10 BM [id number] 07/22/22 10:20 BMF 07/08/22 07/22/22 10:15 10:10 Wound Center Nurse 1 #6- sacral cluster -Combined with other wound No -Current Size (cm) - Length 1.8 2.6 -Current Size (cm) - Width 1.9 2.6 -Current Size (cm) - Depth 0.7 1.6 -Total Square Cm 3.42 6.76 -Date of Last Picture (Recall this 07/22/22 field) -Photo Taken Yes Yes -Epithelialization None Present -Tunneling No -Undermining/Tunneling No -Circular Undermining No -Exudate Amt Medium Medium -Exudate Type Serosanguineous Serosanguineous -Wound Margin Distinct, Distinct, Outline Outline Attached Attached -Granulation Amt Medium (34-66%) Small (1-33%) -Granulation Quality [place],Red Red -Slough/Fibrin Yes -Necrosis Amt Medium (34-66%) Large (67-100%) -Necrotic Tissue Type Adherent Slough Adherent Slough -Structure Exposed N/A -Texture (Patience-wound Skin Appearance) Scarring Assessed, Scarring -Moisture (Patience-wound Skin Appearance) No Abnormality Assessed -Color (Patience-wound Skin Appearance) No Abnormality Assessed, Erythema -Temperature (Patience-wound Skin No Abnormality No Abnormality Appearance) (Pt Warm) (Pt Warm) -Tenderness on Palpation (Patience-wound No No Skin Appearance) -Ulcer Cleansing Rinsed/ Rinsed/ Irrigated with Irrigated with Saline Saline -Foul Odor after Cleansing Yes, Due to No Product Use -Anesthetic Used 5% Lidocaine 5% Lidocaine Gel Gel WC - Nurse 2 - General Ulcer CM Notes Start: 07/08/22 10:14 Freq: Status: Active Protocol: Activity Type Activity Date Activity User E-sign Co-sign Detail Recorded Client Recorded Date Recorded By Document 07/08/22 10:29 MW [id number] 07/08/22 10:31 MW Document 07/22/22 10:47 MW [id number] 07/22/22 10:55 MW 07/08/22 07/22/22 10:29 10:47 Wound Center Nurse 2 #6- sacral cluster -Time 10:29 10:47 -Correct Patient Yes Yes -Correct Side, Site, Position Yes Yes -Correct Procedure Yes Yes -Procedure Performed Yes Yes -Type of Procedure Debridement Debridement -Clinical Debridement Subcutaneous Subcutaneous -Tissue Removed Subcutaneous Subcutaneous -Post Debridement (cm) - Length 1.8 2.3 -Post Debridement (cm) - Width 2.0 2.6 -Post Debridement (cm) - Depth 0.4 1.5 -Total Square (Post) (cm) 3.60 5.98 -Area of Debridement (cm) - Length 1.8 2.3 -Area of Debridement (cm) - Width 2.0 2.6 -Total Square (Area) (cm) 3.60 5.98 -Tunneling No No -Undermining/Tunneling No No -Circular Undermining No No -Wound/Ulcer Outcome Not Healed Not Healed -Ulcer Cleansing Rinsed/ Wound Cleanser Irrigated with Saline -Foul Odor after Cleansing No No -Bioengineered Tissue No No -Bleeding Controlled with Pressure Pressure -Treatment Response Procedure Procedure Tolerated Well Tolerated Well -Offloading No No -Debridement - Subq, 1st 20sq cm Yes Yes Pain Scale: 0-10 Numeric Is Patient Pain Free? Yes Yes WC - Nurse 3 - General Ulcer D/C NN Start: 07/08/22 10:14 Freq: Status: Active Protocol: Activity Type Activity Date Activity User E-sign Co-sign Detail Recorded Client Recorded Date Recorded By Document 07/08/22 10:31 MW [id number] 07/08/22 10:32 MW Document 07/22/22 11:07 MW [id number] 07/22/22 11:08 MW 07/08/22 07/22/22 10:31 11:07 Wound Care Center Nurse 3 #6- sacral cluster -Ulcer Cleansing Rinsed/ Rinsed/ Irrigated with Irrigated with Saline Saline -Foul Odor after Cleansing No No -Negative Pressure Wound Therapy N/A N/A -Primary Dressing Applied Aquacel Extra Aquacel Extra, NonAdherent Contact Layer -Primary Dressing Covered/Secured with Secured with Tape -Other Covering ABD PAD ABD pad -Aquacel Extra 1 1 Treatment Response Procedure Procedure Tolerated Well Tolerated Well Pain Scale: 0-10 Numeric Is Patient Pain Free? Yes Yes Teaching: Wound Center Dressing Your Wound -Person Taught Patient,Family Patient,Family, Primary Caregiver -Teaching Method Discussion, Discussion Demonstration -Response to teaching Verbalize Verbalize understanding understanding WC - Visit Discharge Discharge Condition Stable Stable Ambulatory Status Walker Wheelchair Transportation Private Auto Private Auto Accompanied by MOM mom and caregiver Medication Reconcilliation completed & No provided to patient/care provider Clinical Summary of Care Provided Yes Yes Assessment/Plan Assessment/Plan (1) Pressure ulcer of sacral region, stage 3: CODE(S): L89.153 - Pressure ulcer of sacral region, stage 3 (2) Spina bifida: CODE(S): Q05.9 - Spina bifida, unspecified PLAN: Plan Debridement done as documented above, procedure was well-tolerated. Significantworsening since her last visit. Missed her last appointment because her mother could not bring her here. Cultures taken however does not look clinically/grossly infected. May have been due to worsening pressure. Has an appointment with plastic surgery on the . Continue Aquacel extra, cover with gauze and ABD and change daily to twice daily depending on drainage. Offloading very strongly recommended. Continue adequate protein intake, vitaminC and zinc. Their questions were answered and they were advised to call with any further questions or concerns. Follow-up in 1 week. This note was generated with Brainlyation software. It may contain incorrectwords, spelling, and punctuation that were not noted in checking the note beforesigning. 07/22/22 1259 <Electronically signed by Savannah Kinney MD> Cosigner Signature (if applicable): CC: ~ Signed [facility] Work Phone: [phone]) [phone] [facility] July 08, 2022 10:44am Note Date/Time July 08, 2022 1 0:37am [facility] [address] [place] [address] Progress Note - Wound Care 07/08/22 1035 MR#: [id number] Acct: [id number] Name: JULIETTE CREWS RAI Rep #:[id number] : 1975 47 From: Savannah neri MD PCP: Kassie Polanco [employer] TRAINING MANAGER-C Status:REG R CR Location: History of Present Illness Date of Service: 07/08/22 Chief Complaint: Recurrent sacral pressure sore, Stage III. History of Wound: Ms. Crews is a 46-year-old woman with a history of spina bifidareturns today with a 10 day history of breakdown and recurrence of a previous sacral pressure ulcer. She denies any known precipitating factor. Mother states that she noted it on the 07 of December. Has been applying dry dressing. Nosignificant improvement. She typically a lot of moisture in the area and there has been. She otherwise feels well denies chills, fever nausea vomiting. Progress of Wound: Some improvement noted. No new concerns reported. Now using Aquacel extra. Objective Data Objective Data Vital Signs: Vital Signs Temp Pulse Resp BP 98 F 113 H 20 H 97/72 07/08/22 10:15 07/08/22 10:15 07/08/22 10:15 07/08/22 10:15 Charges/Coding Procedures Integumentary 111xxx-113xx: 68927 Sherlyn subq tissue 20 sq cm/< Physical Exam Const alert, oriented x3 and no apparent distress General Appearance: cooperative and well kempt HEENT normocephalic and hearing grossly normal bilaterally Head and Scalp: normal to inspection and atraumatic Neck full ROM and supple Resp normal respiratory effort Effort and Inspection: able to speak in complete sentences Skin Wounds: wounds noted Neuro oriented x3, CN's II-XII intact bilaterally and moves all extremities Psych mental status grossly normal, cooperative and affect normal Appearance: grossly normal Attitude: calm Speech: normal speech Debridement Note Debridement Note Wound debrided: Sacral Type of Debridement: Excisional debridement Anesthesia Used: 4% Lidocaine Solution Depth: Down to and including healthy tissue and in the subcutaneous layer Percentage of wound debrided: 100 Instrument Used: 3mm curette Tissue Removed: Slough and devitalized tissue Severity: Fat Layer Exposed Amount of bleeding with debridement: Mild Bleeding Controlled with: Pressure Patient tolerated procedure: Patient tolerated procedure well Post-Debridement Measurements and Additional Note: Post-Debridement Measurements/Treatment - Nurse 1 - General Ulcer Assessment Start: 07/08/22 10:14 Freq: Status: Active Protocol: [email or web address] Activity Type Activity Date Activity User E-sign Co-sign Detail Recorded Client Recorded Date Recorded By Document 07/08/22 10:15 DL [id number] 07/08/22 10:25 DL 07/08/22 10:15 - Today's Visit Information Type of service 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 ) Arrival Mode Wheelchair Transfer Assistance Manual,None Transfer Assist (Other) x2 Patient Identification Verified (Name & Yes ) Patient Requires Transmission-Based No Precautions Vital Signs Temperature (97.8 F-99.1 F) 98 F Temperature Source Temporal Pulse Rate (60-100) 113 H Respiratory Rate (12-18) 20 H Respiratory rate source Observation Blood Pressure (90/60-120/80) 97/72 Blood Pressure Mean (mm Hg) 80 Source Monitor History Since Last Visit- (Skip if this is Patient's initial visit) Have you changed medications since your No last visit? Any new allergies or adverse reactions No Had a fall/change in ADL's that may No increase risk of falls Signs or symptoms of abuse and/or No neglect since last visit Have you been in the hospital since your No last visit? Has dressing in place as prescribed Yes Has compression in place as prescribed N/A Experienced any changes in pain level or No management Pain Scale: 0-10 Numeric Is Patient Pain Free? Yes - Nurse 1 - General Ulcer Measurement Start: 07/08/22 10:14 Freq: Status: Active Protocol: Activity Type Activity Date Activity User E-sign Co-sign Detail Recorded Client Recorded Date Recorded By Document 07/08/22 10:15 DL [id number] 07/08/22 10:25 DL 07/08/22 10:15 Wound Center Nurse 1 #6- sacral cluster -Current Size (cm) - Length 1.8 -Current Size (cm) - Width 1.9 -Current Size (cm) - Depth 0.7 -Total Square Cm 3.42 -Photo Taken Yes -Exudate Amt Medium -Exudate Type Serosanguineous -Wound Margin Distinct, Outline Attached -Granulation Amt Medium (34-66%) -Granulation Quality [place],Red -Necrosis Amt Medium (34-66%) -Necrotic Tissue Type Adherent Slough -Structure Exposed N/A -Texture (Patience-wound Skin Appearance) Scarring -Moisture (Patience-wound Skin Appearance) No Abnormality -Color (Patience-wound Skin Appearance) No Abnormality -Temperature (Patience-wound Skin No Abnormality Appearance) (Pt Warm) -Tenderness on Palpation (Patience-wound No Skin Appearance) -Ulcer Cleansing Rinsed/ Irrigated with Saline -Foul Odor after Cleansing Yes, Due to Product Use -Anesthetic Used 5% Lidocaine Gel WC - Nurse 2 - General Ulcer CM Notes Start: 07/08/22 10:14 Freq: Status: Active Protocol: Activity Type Activity Date Activity User E-sign Co-sign Detail Recorded Client Recorded Date Recorded By Document 07/08/22 10:29 MW [id number] 07/08/22 10:31 MW 07/08/22 10:29 Wound Center Nurse 2 -Time 10:29 -Correct Patient Yes -Correct Side, Site, Position Yes -Correct Procedure Yes -Procedure Performed Yes -Type of Procedure Debridement -Clinical Debridement Subcutaneous -Tissue Removed Subcutaneous -Post Debridement (cm) - Length 1.8 -Post Debridement (cm) - Width 2.0 -Post Debridement (cm) - Depth 0.4 -Total Square (Post) (cm) 3.60 -Area of Debridement (cm) - Length 1.8 -Area of Debridement (cm) - Width 2.0 -Total Square (Area) (cm) 3.60 -Tunneling No -Undermining/Tunneling No -Circular Undermining No -Wound/Ulcer Outcome Not Healed -Ulcer Cleansing Rinsed/ Irrigated with Saline -Foul Odor after Cleansing No -Bioengineered Tissue No -Bleeding Controlled with Pressure -Treatment Response Procedure Tolerated Well -Offloading No -Debridement - Subq, 1st 20sq cm Yes Pain Scale: 0-10 Numeric Is Patient Pain Free? Yes WC - Nurse 3 - General Ulcer D/C NN Start: 07/08/22 10:14 Freq: Status: Active Protocol: Activity Type Activity Date Activity User E-sign Co-sign Detail Recorded Client Recorded Date Recorded By Document 07/08/22 10:31 MW [id number] 07/08/22 10:32 MW 07/08/22 10:31 Wound Care Center Nurse 3 #6- sacral cluster -Ulcer Cleansing Rinsed/ Irrigated with Saline -Foul Odor after Cleansing No -Negative Pressure Wound Therapy N/A -Primary Dressing Applied Aquacel Extra -Other Covering ABD PAD -Aquacel Extra 1 Treatment Response Procedure Tolerated Well Pain Scale: 0-10 Numeric Is Patient Pain Free? Yes Teaching: Wound Center Dressing Your Wound -Person Taught Patient,Family -Teaching Method Discussion, Demonstration -Response to teaching Verbalize understanding WC - Visit Discharge Discharge Condition Stable Ambulatory Status Walker Transportation Private Auto Accompanied by MOM Clinical Summary of Care Provided Yes Assessment/Plan Assessment/Plan (1) Pressure ulcer of sacral region, stage 3: CODE(S): L89.153 - Pressure ulcer of sacral region, stage 3 (2) Spina bifida: CODE(S): Q05.9 - Spina bifida, unspecified PLAN: Plan Debridement done as documented above, procedure was well-tolerated. Some improvement noted this week. Continue Aquacel extra, cover with gauze and ABD and change daily to twice daily depending on drainage. Offloading very stronglyrecommended. Continue adequate protein intake, vitamin C and zinc. Their questions were answered and they were advised to call with any further questionsor concerns. Follow-up in 1 week. This note was generated with Klutch dictation software. It may contain incorrectwords, spelling, and punctuation that were not noted in checking the note beforesigning. 07/08/22 1044 <Electronically signed by Savannah Kinney MD> Cosigner Signature (if applicable): CC: ~ Signed [facility] Work Phone: Consult note Author Rex Martinez [facility] Note Date/Time January 22, 2025 12 :52pm [facility] Medical Records Department [address] [place] [id number] Anesthesia Postop Eval I 01/22/25 1251 MR#: [id number] Acct: [id number] Name: JULIETTE CREWS RAI Rep #:[id number] : 1975 49 From: Rex Martinez PCP: GARY JosephC Status:REG S DC Y Race: C Location: [place] [address] Anesthesia: Postop Eval I Current Vital Signs Temperature: 99.3 F Pulse Rate: 109 Blood Pressure: 126/71 Respiratory Rate: 18 Pulse Ox: 100 Oxygen Delivery Method: Room Air Assessment Airway patent: Yes Spontaneous unlabored respirations: Yes Mental status: Awake nausea: No Vomiting: No Anesthesia Complication: Yes Anesthesia Complication Comment:: in situ IV infiltrated Fluid Hydration Crystalloid volume administer (ml): 300 Total IV fluid infused: 300 Progress Note Anesthesia document: Postop Eval 1 completed: Yes 01/22/25 1252 <Electronically signed by Rex Martinez > Date _ Rex Palma Signature: Date CC: ~ Signed [facility] Work Phone: evaluation noteNo assessment information available [facility] Work Phone: evaluation note* Diagnosis Onset Date Resolution Status Pressure ulcer of sacral region, stage [address] [facility] Work Phone: evaluation note* Diagnosis Onset Date Resolution Status Pressure ulcer of sacral region, stage 3 chronic Spina bifida chronic Pressure ulcer of sacral region, stage [address] [facility] Work Phone: evaluation note* Diagnosis Onset Date Resolution Status Pressure ulcer of sacral region, stage 3 chronic Spina bifida chronic Pressure ulcer of sacral region, stage 3 chronic Spina bifida chronic Pressure ulcer of sacral region, stage [address] [facility] Work Phone: evaluation note* Diagnosis Onset Date Resolution Status Pressure ulcer of sacral region, stage 3 chronic Spina bifida chronic Pressure ulcer of sacral region, stage 3 chronic Spina bifida chronic Pressure ulcer of sacral region, stage 3 chronic Spina bifida chronic Pressure ulcer of sacral region, stage [address] [facility] Work Phone: evaluation note* Diagnosis Pressure injury of sacral region, stage 4 (HCC)- Primary [facility] Author Shell Brewer [facility] Note Date/Time January 30, 2025 9: 27am [facility] [address] [place] [address] OFFICE VISIT Date of Service: 01/30/25 MR#: [id number] Acct: [id number] Name: JULIETTE CREWS RAI Rep #: [id number] : 1975 Provider: ADAN Brewer Age/Sex: 49/F [place] [facility] [place] Status: Signed Intake Vital Signs 08/21/24 13:52 01/22/25 10:01 01/30/25 09:14 Height 4 ft 7.9 in 5 ft 5 ft Weight: 135 lb BMI 26.4 BP 120/81 H Respiration 18 Pulse Oximetry (%) 95 Oxygen Delivery Method room air Intake Visit Reasons: Test Result Chief Complaint: constipaiton 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: No Accompanied by: Caregiver Is patient in pain?: No Allergies amoxicillin (From Augmentin) Adverse Reaction (Verified 01/22/25 09:34) Diarrhea azithromycin (From Zithromax Z-Turner) Adverse Reaction (Verified 01/22/25 09:34) Diarrhea ciprofloxacin (From Cipro) Adverse Reaction (Verified 01/22/25 09:34) Pain in joints clavulanic acid (From Augmentin) Adverse Reaction (Verified 01/22/25 09:34) Diarrhea Medications ?Medication ?Instructions ?Recorded ?Confirmed ?Type multivitamin with folic acid 400 1 tab PO QHS general health 04/24/13 01/30/25 History mcg tablet (Thera) omeprazole 20 mg capsule,delayed 20 mg PO QHS acid ref lux 03/11/18 01/30/25 History release aspirin 81 mg chewable tablet 81 mg PO DAILY@0800 10/0 02/2101/30/25 Rx potassium citrate 15 mEq (1,620 15 meq PO BID ##60 01/30/25 Rx mg) tablet,extended release polyethylene glycol 3350 17 gram 17 gm PO DAILY PRN KS N Constipation 09/14/20 01/30/25 History oral powder packet budesonide 0.25 mg/2 mL suspension 0.25 mg inhalation BID 10/28/21 01/30/25 History for nebulization docusate sodium 100 mg tablet 100 mg PO BID 08/21/24 0 01/30/25 History (Stool Softener) loratadine 10 mg tablet 10 mg PO QDAY 08/21/2401/30 History mupirocin calcium 2 % topical cream 1 applic topical B ID 08/21/24 01/30/25 History oxybutynin chloride 15 mg 5 mg PO TID BLADDER 08/21/24 01/30/25 History tablet,extended release 24 hr psyllium husk 0.52 gram capsule 0.52 g PO QDAY 5 01/30/25 History (Fiber Laxative (psyllium husk)) sertraline 50 mg tablet 50 mg PO QDAY 08/21/2401/30 History Bacillus coagulans 250 million 1 tab PO DAILY 01/22/25 01/30/25 History cell chewable tablet (Digestive Advantage Probiotic Gummy) lisinopril 20 mg tablet 20 mg PO DAILY 01/22/2501/05 History bisacodyl 5 mg tablet,delayed 5 mg PO ONCE PRN constip ation #30 01/30/25 01/30/25 Rx release (Dulcolax (bisacodyl)) tabs lubiprostone 24 mcg capsule 24 mcg PO BID 01/30/25 History PFSH Medical History Suprapubic catheter History of Clostridium difficile infection Anxiety Pressure ulcer Easy bruising Dietary restriction Difficulty chewing Heartburn Sleep apnea On home oxygen therapy Hypertension Decubitus ulcer of right buttock, stage 3 Decubitus ulcer of left buttock, stage 3 GI problem Seasonal allergies Wears glasses Depression Uses wheelchair History of urinary self-catheterization Back pain Constipation Gastric reflux Non-smoker BiPAP (biphasic positive airway pressure) dependence Asthma History of edema History of echocardiogram Hx of back injury Acquired scoliosis Spina bifida Surgical History History of brain surgery History of incision and drainage Hx of eye surgery Hx of ileostomy History of brain shunt History of cystoscopy Hx of cholecystectomy Social History Smoking Status: Never smoker HPI HPI Chief Complaint: constipaiton Details: OV 08/21/2024 49y/o female presents for initial consult with complaints of chronic constipation. PMH of spina bifida. Presents in WC today with her mom, sister andcaregiver from [facility]. She has tried and failed multiple OTC laxatives and enemas. She does experience abdominal distension, bloating and occasional abdominal pain with nausea. She is presently only having a BM 24-48 hours after use of an enema, and family reports this only produces a small smear of a stool.I have started her on Linzess 290mcg once daily. She will proceed with colonoscopy. Discussed risk of skin breakdown secondary to frequent soiling. She resides in [facility] and they are aware they will need to frequently monitor for soiling. Linzess has an increased risk of diarrhea in the first two weeks of treatment. We have discussed importance of daily use and PRN use of laxative while possiblymore convenient have shown to be ineffective. Patient Instructions: Start Linzess 290mcg once daily at 1400. Take on an empty stomach, 30 minutes before a snack. Linzess may cause diarrhea and diarrhea may be worse in the first two weeks of continuous use. Increase fluid intake Discontinue bi-weekly enemas Discontinue stool softener Follow-up in office 10-14 days post procedure COLON 01/22/2025 - Preparation of the colon was fair. - Redundant colon. - Stool in the recto-sigmoid colon, in the sigmoid colon, in the descending colon, at the splenic flexure, in the transverse colon and in the cecum. - No specimens collected. - Repeat colonoscopy in 5 years for surveillance. - seen in office today with mom and staff from [facility] - presents in wheel chair - having a BM daily - denies any pain or bleeding - eating well - still taking fiber supplement daily - since starting Amitiza BID she has not needed Miralax - Bisacodyl 5mg PO every Tuesday, this causes her to stay in bed all day Tuesdaywith diarrhea - wanting to change Bisacodyl PRN - she is having a normal solid BM daily - staff is keep track of bowel movements - denies any pain, bleeding or weight loss - eating well ROS Const Constitutional: No fatigue, fever(s) or weight change ENT ENT: No difficulty swallowing Gastro GI: Positive for diarrhea; No abdominal pain, belching, bloating, change in bowel habits, change in stool character, coffee ground emesis, constipation, cramping, heartburn, difficulty swallowing, feeling full early, excessive flatus, incontinent of stools, Vomiting blood/hematemesis, Blood in stool, loose stools, Black,tarry stools, nausea/dyspepsia, pain with swallowing, vomiting or other Musc Musculoskeletal: No joint pain Skin Skin: No yellowing of the eye or itchy eyes Psych Psychiatric: No anxiety and No depression Endo Endocrine: No fatigue or weight change Aller/Imm Allergy/Immunologic: No itchy eyes Oscar/Lymp Hematologic/Lymphatic: Positive for easy bruising; No easy bleeding Exam Const General: cooperative, healthy appearing, no acute distress and well developed Nutritional Appearance: well nourished and overweight Orientation: alert Other: presents in [facility] Head: normocephalic Ears: hearing grossly normal bilaterally Mouth: moist mucous membranes Eyes Conjunctivae: conjunctivae normal Sclera: sclerae normal Neck Neck: normal visual inspection, full ROM and trachea midline Resp Effort & Inspection: normal respiratory effort, able to speak in complete sentences and symmetric chest movement Neuro General: patient alert Speech: speech normal Psych Appearance: grossly normal and well kempt Affect: normal affect Attitude: cooperative Thought Process: normal Assessment and Plan Assessment and Plan (1) Chronic idiopathic constipation: Status: Chronic (2) GERD (gastroesophageal reflux disease): Status: Acute Medications: New bisacodyl (Dulcolax (bisacodyl)) as needed for constipation, take 5mg PO if no bowel movement in 48 hours and repeat daily until effective 5 mg PO ONCE PRN 30 tabs 3RF constipation Discontinued bisacodyl Discontinued Reason: Order Changed 5 mg PO FR Plan 49-year-old female with a history of chronic idiopathic constipation, presentingfor routine follow-up and review of current management strategies, including medication adjustments. The patient reports favorable outcomes with Amitiza, experiencing regular bowel movements and improvements in constipation symptoms. GERD remains well-managed with omeprazole. The use of bisacodyl has resulted in significant diarrhea, warranting reassessment of its current weekly schedule in favor of a PRN approach to minimize adverse effects and improve quality of life. Patient Instructions: 1. Continue Amitiza BID 2. Change Bisacodyl from 5mg once weekly to PRN 3. Follow-up in 6 months 4. Continue daily Omeprazole 5. Continue Miralax and stool softener PRN Plan Details Follow Up: 6 Months Coding Level of Care Code Off vis,est,level 3 Diagnoses Chronic idiopathic constipation K59.04 GERD (gastroesophageal reflux disease) K21.9 Clinical Quality Measures Smoking Screening Smoking Status: Never smoker 01/30/25 0927 <Electronically signed by Shell VEGAC> Date _ Shell VEGAC Cosigner Signature: Date (if applicable) CC: ~ [facility] Work Phone: Reason for referral (narrative)No reason for referral information availableWKettering [facility] Work Phone: Summary Purpose Family History No Family History Records Found Relationship Condition Age at Onset Recorded Date/T china Unknown Family History?- Unknown March 6:38am Family History?No pe rtinent history Unknown August 29, 2019 12:24pm Relationship Condition Age at Onset Recorded Date/T china Unknown Family History?- Unknown March 5:38am Family History?No pe rtinent history Unknown August 29, 2019 11:24am Advance Directives No Advanced Directives Records Found Advance Directive Response Recorded Date/ Time Living Will Yes September 19, 2020 8:37am Power of Banquet Supervisor Yes September 19 8:37am Advance Directive Response Recorded Date/ Time Name of Medical Power of Banquet Supervisor MOTHER October 28, 2021 12:53pm Living Will Yes October 28, 2021 1 2:53pm Power of Banquet Supervisor Yes October 28, 2021 12:53pm Advance Directive Response Recorded Date/ Time Living Will Yes October 28, 2021 1 2:53pm Power of Banquet Supervisor Yes October 28, 2021 12:53pm Advance Directive Response Recorded Date/ Time Living Will Yes October 28, 2021 1 1:53am Power of Banquet Supervisor Yes October 28, 2021 11:53am Documents on File Type Date Recorded 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 Yes January 22, 2025 10:33am Chief Complaint and Reason for Visit Chief Complaint GERD, COUGH *WHEELCH AIR BOUND* GROSS HEMATURIA Chief Complaint GERD, COUGH *WHEELCH AIR BOUND* GROSS HEMATURIA CYSTO, BILATERAL RETROGRADES WOUND WOUND WOUND Reason for Visit Pressure ulcer of sa cral region, stage 3 Spina bifida Chief Complaint GERD, COUGH *WHEELCH AIR BOUND* GROSS HEMATURIA CYSTO, BILATERAL RETROGRADES WOUND WOUND WOUND WOUND WOUND WOUND WOUND Reason for Visit Pressure ulcer of sa cral region, stage 3 Spina bifida Pressure ulcer of sacral region, stage 3 Spina bifida Chief Complaint GERD, COUGH *WHEELCH AIR BOUND* GROSS HEMATURIA CYSTO, BILATERAL RETROGRADES WOUND WOUND WOUND WOUND WOUND WOUND WOUND WOUND Reason for Visit Pressure ulcer of sa cral region, stage 3 Spina bifida Pressure ulcer of sacral region, stage 3 Spina bifida Chief Complaint WOUND WOUND WOUND WOUND WOUND WOUND WOUND WOUND WOUND WOUND WOUND WOUND WOUND Reason for Visit Pressure ulcer of sa cral region, stage 3 Spina bifida Pressure ulcer of sacral region, stage 3 Spina bifida Pressure ulcer of sacral region, stage 3 Spina bifida Chief Complaint WOUND WOUND WOUND WOUND WOUND WOUND WOUND WOUND WOUND WOUND WOUND WOUND WOUND WOUND WOUND WOUND WOUND Reason for Visit Pressure ulcer of sa cral region, stage 3 Spina bifida Pressure ulcer of sacral region, stage 3 Spina bifida Pressure ulcer of sacral region, stage 3 Spina bifida Pressure ulcer of sacral region, stage 3 Spina bifida Chief Complaint WOUND WOUND WOUND WOUND WOUND WOUND WOUND WOUND WOUND WOUND WOUND WOUND WOUND WOUND WOUND Reason for Visit Pressure ulcer of sa cral region, stage 3 Spina bifida Pressure ulcer of sacral region, stage 3 Spina bifida Pressure ulcer of sacral region, stage 3 Spina bifida Pressure ulcer of sacral region, stage 3 Spina bifida Chief Complaint WOUND WOUND WOUND WOUND WOUND WOUND WOUND WOUND WOUND WOUND WOUND WOUND WOUND WOUND WOUND WOUND Reason for Visit Pressure ulcer of sa cral region, stage 3 Spina bifida Pressure ulcer of sacral region, stage 3 Spina bifida Pressure ulcer of sacral region, stage 3 Spina bifida Pressure ulcer of sacral region, stage 3 Spina bifida Chief Complaint Admit Date CHRONIC CONSTIPATION August 21, 2024 1: 19pm wound on vagina area November 22, 2024 1:5 5pm wound on vagina area November 29, 2024 10: 30am wound on vagina area November 29, 2024 4:3 7pm Reason for Visit Admit Date Constipation August 21, 2024 1:1 9pm Decubitus ulcer of left buttock, stage 3 November 29, 2024 10:30am Decubitus ulcer of right buttock, stage 3 November 29, 2024 10:30am Pressure ulcer of sacral region, stage 3 November 29, 2024 10:30am Spina bifida November 29, 2024 10:3 0am Chief Complaint Admit Date CHRONIC CONSTIPATION August 21, 2024 1: 19pm wound on vagina area November 22, 2024 1:5 5pm wound on vagina area November 29, 2024 10: 30am wound on vagina area November 29, 2024 4:3 7pm wound on vagina area December 06, 2024 1:40 pm wound on vagina area December 13, 2024 10: 45am Reason for Visit Admit Date Constipation August 21, 2024 1:1 9pm Decubitus ulcer of left buttock, stage 3 November 29, 2024 10:30am Decubitus ulcer of right buttock, stage 3 November 29, 2024 10:30am Pressure ulcer of sacral region, stage 3 November 29, 2024 10:30am Spina bifida November 29, 2024 10:3 0am Decubitus ulcer of left buttock, stage 3 December 13, 2024 10:45am Decubitus ulcer of right buttock, stage 3 December 13, 2024 10:45am Pressure ulcer of sacral region, stage 3 December 13, 2024 10:45am Spina bifida December 13, 2024 10:4 5am Chief Complaint Admit Date wound on vagina area November 22, 2024 1:5 5pm wound on vagina area November 29, 2024 10: 30am wound on vagina area November 29, 2024 4:3 7pm wound on vagina area December 06, 2024 1:40 pm wound on vagina area December 13, 2024 10: 45am wound on vagina area December 13, 2024 12: 20pm wound January 03, 2025 8:08 am wound January 03, 2025 9:25 am Reason for Visit Admit Date Decubitus ulcer of left buttock, stage 3 November 29, 2024 10:30am Decubitus ulcer of right buttock, stage 3 November 29, 2024 10:30am Pressure ulcer of sacral region, stage 3 November 29, 2024 10:30am Spina bifida November 29, 2024 10:3 0am Decubitus ulcer of left buttock, stage 3 December 13, 2024 10:45am Decubitus ulcer of right buttock, stage 3 December 13, 2024 10:45am Pressure ulcer of sacral region, stage 3 December 13, 2024 10:45am Spina bifida December 13, 2024 10:4 5am Pressure ulcer of sacral region, stage 3 January 03, 2025 8:08am Spina bifida January 03, 2025 8:08 am Chief Complaint Admit Date wound on vagina area November 22, 2024 1:5 5pm wound on vagina area November 29, 2024 10: 30am wound on vagina area November 29, 2024 4:3 7pm wound on vagina area December 06, 2024 1:40 pm wound on vagina area December 13, 2024 10: 45am wound on vagina area December 13, 2024 12: 20pm wound January 03, 2025 8:08 am wound January 03, 2025 9:25 am wound January 10, 2025 11: 27am Frequency of micturition January 15 6:34pm wound January 17, 2025 10 :15am wound January 17, 2025 10 :37am Reason for Visit Admit Date Decubitus ulcer of left buttock, stage 3 November 29, 2024 10:30am Decubitus ulcer of right buttock, stage 3 November 29, 2024 10:30am Pressure ulcer of sacral region, stage 3 November 29, 2024 10:30am Spina bifida November 29, 2024 10:3 0am Decubitus ulcer of left buttock, stage 3 December 13, 2024 10:45am Decubitus ulcer of right buttock, stage 3 December 13, 2024 10:45am Pressure ulcer of sacral region, stage 3 December 13, 2024 10:45am Spina bifida December 13, 2024 10:4 5am Pressure ulcer of sacral region, stage 3 January 03, 2025 8:08am Spina bifida January 03, 2025 8:08 am Pressure ulcer of sacral region, stage 3 January 17, 2025 10:15am Spina bifida January 17, 2025 10 :15am Constipation January 22, 2025 8: 42am Chief Complaint Admit Date wound on vagina area November 22, 2024 1:5 5pm wound on vagina area November 29, 2024 10: 30am wound on vagina area November 29, 2024 4:3 7pm wound on vagina area December 06, 2024 1:40 pm wound on vagina area December 13, 2024 10: 45am wound on vagina area December 13, 2024 12: 20pm wound January 03, 2025 8:08 am wound January 03, 2025 9:25 am wound January 10, 2025 11: 27am Frequency of micturition January 15 6:34pm wound January 17, 2025 10 :37am wound January 24, 2025 10 :00am wound January 24, 2025 12 :25pm Test Result January 30, 2025 8: 57am Reason for Visit Admit Date Decubitus ulcer of left buttock, stage 3 November 29, 2024 10:30am Decubitus ulcer of right buttock, stage 3 November 29, 2024 10:30am Pressure ulcer of sacral region, stage 3 November 29, 2024 10:30am Spina bifida November 29, 2024 10:3 0am Decubitus ulcer of left buttock, stage 3 December 13, 2024 10:45am Decubitus ulcer of right buttock, stage 3 December 13, 2024 10:45am Pressure ulcer of sacral region, stage 3 December 13, 2024 10:45am Spina bifida December 13, 2024 10:4 5am Pressure ulcer of sacral region, stage 3 January 03, 2025 8:08am Spina bifida January 03, 2025 8:08 am Constipation January 22, 2025 8: 42am Pressure ulcer of sacral region, stage 3 January 24, 2025 10:00am Spina bifida January 24, 2025 10 :00am GERD (gastroesophageal reflux disease) A ugust 2024 8:57am Chronic idiopathic constipation January 052024 8:57am Chief Complaint Admit Date wound on vagina area November 22, 2024 1:5 5pm wound on vagina area November 29, 2024 10: 30am wound on vagina area November 29, 2024 4:3 7pm wound on vagina area December 06, 2024 1:40 pm wound on vagina area December 13, 2024 10: 45am wound on vagina area December 13, 2024 12: 20pm wound January 03, 2025 8:08 am wound January 03, 2025 9:25 am wound January 10, 2025 11: 27am Frequency of micturition January 15 6:34pm wound January 17, 2025 10 :37am wound January 24, 2025 12 :25pm Test Result January 30, 2025 8: 57am wound January 31, 2025 10 :00am wound January 31, 2025 11 :51am Reason for Visit Admit Date Decubitus ulcer of left buttock, stage 3 November 29, 2024 10:30am Decubitus ulcer of right buttock, stage 3 November 29, 2024 10:30am Pressure ulcer of sacral region, stage 3 November 29, 2024 10:30am Spina bifida November 29, 2024 10:3 0am Decubitus ulcer of left buttock, stage 3 December 13, 2024 10:45am Decubitus ulcer of right buttock, stage 3 December 13, 2024 10:45am Pressure ulcer of sacral region, stage 3 December 13, 2024 10:45am Spina bifida December 13, 2024 10:4 5am Pressure ulcer of sacral region, stage 3 January 03, 2025 8:08am Spina bifida January 03, 2025 8:08 am Constipation January 22, 2025 8: 42am GERD (gastroesophageal reflux disease) A ugust 2024 8:57am Chronic idiopathic constipation January 052024 8:57am Pressure ulcer of sacral region, stage 3 January 31, 2025 10:00am Spina bifida January 31, 2025 10 :00am Chief Complaint Admit Date wound on vagina area November 22, 2024 1:5 5pm wound on vagina area November 29, 2024 10: 30am wound on vagina area November 29, 2024 4:3 7pm wound on vagina area December 06, 2024 1:40 pm wound on vagina area December 13, 2024 10: 45am wound on vagina area December 13, 2024 12: 20pm wound January 03, 2025 8:08 am wound January 03, 2025 9:25 am wound January 10, 2025 11: 27am Frequency of micturition January 15 6:34pm wound January 17, 2025 10 :37am wound January 24, 2025 12 :25pm Test Result January 30, 2025 8: 57am wound January 31, 2025 10 :00am wound January 31, 2025 11 :51am wound February 07, 2025 12:21pm wound February 14, 2025 1:09pm wound February 21, 2025 10:30am wound February 21, 2025 11:35am Reason for Visit Admit Date Decubitus ulcer of left buttock, stage 3 November 29, 2024 10:30am Decubitus ulcer of right buttock, stage 3 November 29, 2024 10:30am Pressure ulcer of sacral region, stage 3 November 29, 2024 10:30am Spina bifida November 29, 2024 10:3 0am Decubitus ulcer of left buttock, stage 3 December 13, 2024 10:45am Decubitus ulcer of right buttock, stage 3 December 13, 2024 10:45am Pressure ulcer of sacral region, stage 3 December 13, 2024 10:45am Spina bifida December 13, 2024 10:4 5am Pressure ulcer of sacral region, stage 3 January 03, 2025 8:08am Spina bifida January 03, 2025 8:08 am Constipation January 22, 2025 8: 42am GERD (gastroesophageal reflux disease) A ugust 2024 8:57am Chronic idiopathic constipation January 052024 8:57am Pressure ulcer of sacral region, stage 3 January 31, 2025 10:00am Spina bifida January 31, 2025 10 :00am Pressure ulcer of sacral region, stage 3 February 21, 2025 10:30am Spina bifida February 21, 2025 10:30am Chief Complaint Admit Date wound on vagina area December 06, 2024 1:40 pm wound on vagina area December 13, 2024 10: 45am wound on vagina area December 13, 2024 12: 20pm wound January 03, 2025 8:08 am wound January 03, 2025 9:25 am wound January 10, 2025 11: 27am Frequency of micturition January 15 6:34pm wound January 17, 2025 10 :37am wound January 24, 2025 12 :25pm Test Result January 30, 2025 8: 57am wound January 31, 2025 10 :00am wound January 31, 2025 11 :51am wound February 07, 2025 12:21pm wound February 14, 2025 1:09pm wound February 21, 2025 10:30am wound February 21, 2025 11:35am wound March 07, 2025 10 :53am wound March 07, 2025 12 :14pm wound March 28, 2025 1 1:23am wound March 28, 2025 1 2:27pm Reason for Visit Admit Date Decubitus ulcer of left buttock, stage 3 December 13, 2024 10:45am Decubitus ulcer of right buttock, stage 3 December 13, 2024 10:45am Pressure ulcer of sacral region, stage 3 December 13, 2024 10:45am Spina bifida December 13, 2024 10:4 5am Pressure ulcer of sacral region, stage 3 January 03, 2025 8:08am Spina bifida January 03, 2025 8:08 am Constipation January 22, 2025 8: 42am GERD (gastroesophageal reflux disease) A ugust 2024 8:57am Chronic idiopathic constipation January 052024 8:57am Pressure ulcer of sacral region, stage 3 January 31, 2025 10:00am Spina bifida January 31, 2025 10 :00am Pressure ulcer of sacral region, stage 3 February 21, 2025 10:30am Spina bifida February 21, 2025 10:30am Pressure ulcer of sacral region, stage 3 March 07, 2025 10:53am Spina bifida March 07, 2025 10 :53am Pressure ulcer of sacral region, stage 3 March 28, 2025 11:23am Spina bifida March 28, 2025 1 1:23am Additional Source Comments INFORMATION SOURCE (unrecogn ized section and content) DATE CREATED AUTHOR 11/28/2017 [facility] DATE CREATED AUTHOR AUTHOR'S ORGANIZ ATION 10/10/2022 [facility] ([place]) DATE CREATED AUTHOR AUTHOR'S ORGANIZ ATION 03/18/2023 [facility] DATE CREATED AUTHOR AUTHOR'S ORGANIZ ATION 08/08/2023 [facility] ([place]) DATE CREATED AUTHOR AUTHOR'S ORGANIZ ATION 04/06/2025 [facility] DATE CREATED AUTHOR AUTHOR'S ORGANIZ ATION 04/18/2025 [facility] Goals (unrecognized section and content) Goals may be documented in a n alternate sectionGoals may be documented in an alternate sectionGoals may be documented in an alternate sectionGoals may be documented in an alternate sectionGoals may be documented in an alternate sectionGoals may be documented in an alternate sectionGoals may be documented in an alternate sectionGoals may be documented in an alternate sectionGoals may be documented in an alternate sectionGoals may be documented in an alternate sectionGoals may be documented in an alternate section Care Teams (unrecognized sec tion and content) Team Status: Active Member Role Status Dates Dr. Parviz Wolf MD Family Provider Active Kassie Polanco NP, HUMAN RESOURCES TRAINING MANAGER-C Primary Care Provider Active Team Status: Active Member Role Status Dates Kassie Polanco NP, HUMAN RESOURCES TRAINING MANAGER-C Primary Care Provider Active Dr. Savannah Kinney MD Attending Provider, Other Ut ovider Active Team Status: Inactive Member Role Status Dates Kassie Polanco NP, HUMAN RESOURCES TRAINING MANAGER-C Primary Care Provider Active Dr. Savannah Kinney MD Attending Provider Active Team Status: Active Member Role/Relationship Status Dates Kassie Polanco NP, HUMAN RESOURCES TRAINING MANAGER-C Primary Care Provider Active Team Status: Inactive Member Role/Relationship Status Dates Kassie Polanco NP, HUMAN RESOURCES TRAINING MANAGER-C Primary Care Provider Active Start: August 21, 2024 End: August 21, 2024 Kassie Polanco NP, NP-C Referring Provider Active Start: August 21, 2024 End: August 21, 2024 Shell Brewer NP-C Attending Provider Active Start: August 21, 2024 End: August 21, 2024 Team Status: Active Member Role/Relationship Status Dates Kassie Polanco NP, HUMAN RESOURCES TRAINING MANAGER-C Primary Care Provider Active Start: November 22, 2024 Dr. Savannah Kinney MD Attending Provider Active Start: November 22, 2024 Dr. Savannah Kinney MD Other Provider Active Start: November 22, 2024 No Primary Care Physician Referring Provider Active Start: November 22, 2024 Team Status: Inactive Member Role/Relationship Status Dates Kassie Polanco NP, HUMAN RESOURCES TRAINING MANAGER-C Primary Care Provider Active Start: November 29, 2024 End: December 03, 2024 Dr. Savannah Kinney MD Attending Provider Active Start: November 29, 2024 End: December 03, 2024 No Primary Care Physician Referring Provider Active Start: November 29, 2024 End: December 03, 2024 Team Status: Active Member Role/Relationship Status Dates Kassie Polanco HUMAN RESOURCES TRAINING MANAGER, HUMAN RESOURCES TRAINING MANAGER-C Primary Care Provider Active Start: November 29, 2024 Dr. Savannah Kinney MD Other Provider Active Start: November 29, 2024 No Primary Care Physician Referring Provider Active Start: November 29, 2024 Dr. Brett Vincent MD Attending Provider Active Start: November 29, 2024 Team Status: Active Member Role/Relationship Status Dates Kassie Polanco NP, HUMAN RESOURCES TRAINING MANAGER-C Primary Care Provider Active Start: December 06, 2024 Dr. Savannah Kinney MD Attending Provider Active Start: December 06, 2024 Dr. Savannah Kinney MD Other Provider Active Start: December 06, 2024 No Primary Care Physician Referring Provider Active Start: December 06, 2024 Team Status: Inactive Member Role/Relationship Status Dates Kassie Polanco NP, HUMAN RESOURCES TRAINING MANAGER-C Primary Care Provider Active Start: December 13, 2024 End: December 13, 2024 Dr. Savannah Kinney MD Attending Provider Active Start: December 13, 2024 End: December 13, 2024 No Primary Care Physician Referring Provider Active Start: December 13, 2024 End: December 13, 2024 Team Status: Active Member Role/Relationship Status Dates Kassie Polanco NP, HUMAN RESOURCES TRAINING MANAGER-C Primary Care Provider Active Start: November 22, 2024 Dr. Savannah Kinney MD Attending Provider Active Start: November 22, 2024 Dr. Savannah Kinney MD Other Provider Active Start: November 22, 2024 No Primary Care Physician Referring Provider Active Start: November 22, 2024 Team Status: Inactive Member Role/Relationship Status Dates Kassie Polanco HUMAN RESOURCES TRAINING MANAGER, HUMAN RESOURCES TRAINING MANAGER-C Primary Care Provider Active Start: November 29, 2024 End: December 03, 2024 Dr. Savannah Kinney MD Attending Provider Active Start: November 29, 2024 End: December 03, 2024 No Primary Care Physician Referring Provider Active Start: November 29, 2024 End: December 03, 2024 Team Status: Active Member Role/Relationship Status Dates Kassie Polanco NP, HUMAN RESOURCES TRAINING MANAGER-C Primary Care Provider Active Start: November 29, 2024 Dr. Savannah Kinney MD Other Provider Active Start: November 29, 2024 No Primary Care Physician Referring Provider Active Start: November 29, 2024 Dr. Brett Vincent MD Attending Provider Active Start: November 29, 2024 Team Status: Active Member Role/Relationship Status Dates Kassie Polanco HUMAN RESOURCES TRAINING MANAGER, HUMAN RESOURCES TRAINING MANAGER-C Primary Care Provider Active Start: December 06, 2024 Dr. Savannah Kinney MD Attending Provider Active Start: December 06, 2024 Dr. Savannah Kinney MD Other Provider Active Start: December 06, 2024 No Primary Care Physician Referring Provider Active Start: December 06, 2024 Team Status: Inactive Member Role/Relationship Status Dates Kassie Polanco HUMAN RESOURCES TRAINING MANAGER, HUMAN RESOURCES TRAINING MANAGER-C Primary Care Provider Active Start: December 13, 2024 End: December 13, 2024 Dr. Savannah Kinney MD Attending Provider Active Start: December 13, 2024 End: December 13, 2024 No Primary Care Physician Referring Provider Active Start: December 13, 2024 End: December 13, 2024 Team Status: Active Member Role/Relationship Status Dates Kassie Polanco HUMAN RESOURCES TRAINING MANAGER, HUMAN RESOURCES TRAINING MANAGER-C Primary Care Provider Active Start: December 13, 2024 Dr. Savannah Kinney MD Attending Provider Active Start: December 13, 2024 Dr. Savannah Kinney MD Other Provider Active Start: December 13, 2024 No Primary Care Physician Referring Provider Active Start: December 13, 2024 Team Status: Inactive Member Role/Relationship Status Dates Kassie Polanco HUMAN RESOURCES TRAINING MANAGER, HUMAN RESOURCES TRAINING MANAGER-C Primary Care Provider Active Start: January 03, 2025 End: January 03, 2025 Dr. Savannah Kinney MD Attending Provider Active Start: January 03, 2025 End: January 03, 2025 Dr. Savannah Kinney MD Referring Provider Active Start: January 03, 2025 End: January 03, 2025 Team Status: Active Member Role/Relationship Status Dates Kassie Polanco HUMAN RESOURCES TRAINING MANAGER, HUMAN RESOURCES TRAINING MANAGER-C Primary Care Provider Active Start: January 03, 2025 Dr. Savannah Kinney MD Attending Provider Active Start: January 03, 2025 Dr. Savannah Kinney MD Referring Provider Active Start: January 03, 2025 Dr. Savannah Kinney MD Other Provider Active Start: January 03, 2025 Team Status: Active Member Role/Relationship Status Dates Kassie Polanco HUMAN RESOURCES TRAINING MANAGER, HUMAN RESOURCES TRAINING MANAGER-C Primary Care Provider Active Start: January 10, 2025 Dr. Savannah Kinney MD Attending Provider Active Start: January 10, 2025 Dr. Savannah Kinney MD Referring Provider Active Start: January 10, 2025 Dr. Savannah Kinney MD Other Provider Active Start: January 10, 2025 Team Status: Active Member Role/Relationship Status Dates Kassie Polanco HUMAN RESOURCES TRAINING MANAGER, HUMAN RESOURCES TRAINING MANAGER-C Primary Care Provider Active Start: January 15, 2025 Dr. Enzo Hernandez MD Attending Provider Active Start: January 15, 2025 Dr. Enzo Hernandez MD Referring Provider Active Start: January 15, 2025 Team Status: Active Member Role/Relationship Status Dates Kassie Polanco HUMAN RESOURCES TRAINING MANAGER, HUMAN RESOURCES TRAINING MANAGER-C Primary Care Provider Active Start: January 17, 2025 Dr. Savannah Kinney MD Attending Provider Active Start: January 17, 2025 Dr. Savannah Kinney MD Referring Provider Active Start: January 17, 2025 Team Status: Active Member Role/Relationship Status Dates Kassie Polanco HUMAN RESOURCES TRAINING MANAGER, HUMAN RESOURCES TRAINING MANAGER-C Primary Care Provider Active Start: January 17, 2025 Dr. Savannah Kinney MD Attending Provider Active Start: January 17, 2025 Dr. Savannah Kinney MD Referring Provider Active Start: January 17, 2025 Dr. Savannah Kinney MD Other Provider Active Start: January 17, 2025 Team Status: Inactive Member Role/Relationship Status Dates Kassie Polanco HUMAN RESOURCES TRAINING MANAGER, HUMAN RESOURCES TRAINING MANAGER-C Primary Care Provider Active Start: January 22, 2025 End: January 22, 2025 Kassie Polanco HUMAN RESOURCES TRAINING MANAGER, HUMAN RESOURCES TRAINING MANAGER-C Referring Provider Active Start: January 22, 2025 End: January 22, 2025 Dr. Mario Rai DO Attending Provider Active Start: January 22, 2025 End: January 22, 2025 Team Status: Active Member Role/Relationship Status Dates Kassie Polanco HUMAN RESOURCES TRAINING MANAGER, HUMAN RESOURCES TRAINING MANAGER-C Primary Care Provider Active Start: January 22, 2025 Kassie Polanco HUMAN RESOURCES TRAINING MANAGER, HUMAN RESOURCES TRAINING MANAGER-C Referring Provider Active Start: January 22, 2025 Dr. Mario Rai DO Attending Provider Active Start: January 22, 2025 Dr. Mario Rai DO Other Provider Active St art: January 22, 2025 Team Status: Inactive Member Role/Relationship Status Dates Kassie Polanco HUMAN RESOURCES TRAINING MANAGER, HUMAN RESOURCES TRAINING MANAGER-C Primary Care Provider Active Start: January 15, 2025 End: January 15, 2025 Dr. Enzo Hernandez MD Attending Provider Active Start: January 15, 2025 End: January 15, 2025 Dr. Enzo Hernandez MD Referring Provider Active Start: January 15, 2025 End: January 15, 2025 Team Status: Active Member Role/Relationship Status Dates Kassie Polanco NP, HUMAN RESOURCES TRAINING MANAGER-C Primary Care Provider Active Start: January 17, 2025 Dr. Savannah Kinney MD Attending Provider Active Start: January 17, 2025 Dr. Savannah Kinney MD Referring Provider Active Start: January 17, 2025 Dr. Savannah Kinney MD Other Provider Active Start: January 17, 2025 Team Status: Inactive Member Role/Relationship Status Dates Kassie Polanco HUMAN RESOURCES TRAINING MANAGER, HUMAN RESOURCES TRAINING MANAGER-C Primary Care Provider Active Start: January 22, 2025 End: January 22, 2025 Kassie Polanco HUMAN RESOURCES TRAINING MANAGER, HUMAN RESOURCES TRAINING MANAGER-C Referring Provider Active Start: January 22, 2025 End: January 22, 2025 Dr. Mario Rai DO Attending Provider Active Start: January 22, 2025 End: January 22, 2025 Team Status: Active Member Role/Relationship Status Dates Kassie Polanco HUMAN RESOURCES TRAINING MANAGER, HUMAN RESOURCES TRAINING MANAGER-C Primary Care Provider Active Start: January 22, 2025 Kassie Polanco HUMAN RESOURCES TRAINING MANAGER, HUMAN RESOURCES TRAINING MANAGER-C Referring Provider Active Start: January 22, 2025 Dr. Mario Rai DO Attending Provider Active Start: January 22, 2025 Dr. Mario Rai DO Other Provider Active St art: January 22, 2025 Team Status: Active Member Role/Relationship Status Dates Kassie Polanco NP, HUMAN RESOURCES TRAINING MANAGER-C Primary Care Provider Active Start: January 24, 2025 Dr. Savannah Kinney MD Attending Provider Active Start: January 24, 2025 Dr. Savannah Kinney MD Referring Provider Active Start: January 24, 2025 Team Status: Active Member Role/Relationship Status Dates Kassie Polanco HUMAN RESOURCES TRAINING MANAGER, HUMAN RESOURCES TRAINING MANAGER-C Primary Care Provider Active Start: January 24, 2025 Dr. Savannah Kinney MD Attending Provider Active Start: January 24, 2025 Dr. Savannah Kinney MD Referring Provider Active Start: January 24, 2025 Dr. Savannah Kinney MD Other Provider Active Start: January 24, 2025 Team Status: Inactive Member Role/Relationship Status Dates Kassie Polanco HUMAN RESOURCES TRAINING MANAGER, HUMAN RESOURCES TRAINING MANAGER-C Primary Care Provider Active Start: January 30, 2025 End: January 30, 2025 Kassie Polanco HUMAN RESOURCES TRAINING MANAGER, HUMAN RESOURCES TRAINING MANAGER-C Referring Provider Active Start: January 30, 2025 End: January 30, 2025 Shell Brewer NP-C Attending Provider Active Start: January 30, 2025 End: January 30, 2025 Team Status: Active Member Role/Relationship Status Dates Kassie Polanco NP, HUMAN RESOURCES TRAINING MANAGER-C Primary Care Provider Active Start: January 24, 2025 Dr. Savannah Kinney MD Attending Provider Active Start: January 24, 2025 Dr. Savannah Kinney MD Referring Provider Active Start: January 24, 2025 Dr. Savannah Kinney MD Other Provider Active Start: January 24, 2025 Team Status: Inactive Member Role/Relationship Status Dates Kassie Polanoc HUMAN RESOURCES TRAINING MANAGER, HUMAN RESOURCES TRAINING MANAGER-C Primary Care Provider Active Start: January 30, 2025 End: January 30, 2025 Kassie Polanco HUMAN RESOURCES TRAINING MANAGER, HUMAN RESOURCES TRAINING MANAGER-C Referring Provider Active Start: January 30, 2025 End: January 30, 2025 Shell Brewer NP-C Attending Provider Active Start: January 30, 2025 End: January 30, 2025 Team Status: Inactive Member Role/Relationship Status Dates Kassie Polanco NP, HUMAN RESOURCES TRAINING MANAGER-C Primary Care Provider Active Start: January 31, 2025 End: February 03, 2025 Dr. Savannah Kinney MD Attending Provider Active Start: January 31, 2025 End: February 03, 2025 Dr. Savannah Kinney MD Referring Provider Active Start: January 31, 2025 End: February 03, 2025 Team Status: Active Member Role/Relationship Status Dates Kassie Polanco HUMAN RESOURCES TRAINING MANAGER, HUMAN RESOURCES TRAINING MANAGER-C Primary Care Provider Active Start: January 31, 2025 Dr. Savannah Kinney MD Attending Provider Active Start: January 31, 2025 Dr. Savannah Kinney MD Referring Provider Active Start: January 31, 2025 Dr. Savannah Kinney MD Other Provider Active Start: January 31, 2025 Team Status: Active Member Role/Relationship Status Dates Kassie Polanco HUMAN RESOURCES TRAINING MANAGER, HUMAN RESOURCES TRAINING MANAGER-C Primary care physician Active Team Status: Active Member Role/Relationship Status Dates Kassie Polanco HUMAN RESOURCES TRAINING MANAGER, HUMAN RESOURCES TRAINING MANAGER-C Primary care physician Active Start: November 22, 2024 Dr. Savannah Kinney MD Attending physician Active Start: November 22, 2024 Dr. Savannah Kinney MD Nurse Practitioner Active Start: November 22, 2024 No Primary Care Physician Referring Provider Active Start: November 22, 2024 Team Status: Inactive Member Role/Relationship Status Dates Kassie Polanco HUMAN RESOURCES TRAINING MANAGER, HUMAN RESOURCES TRAINING MANAGER-C Primary care physician Active Start: November 29, 2024 End: December 03, 2024 Dr. Savannah Kinney MD Attending physician Active Start: November 29, 2024 End: December 03, 2024 No Primary Care Physician Referring Provider Active Start: November 29, 2024 End: December 03, 2024 Team Status: Active Member Role/Relationship Status Dates Kassie Polanco NP, HUMAN RESOURCES TRAINING MANAGER-C Primary care physician Active Start: November 29, 2024 Dr. Savannah Kinney MD Nurse Practitioner Active Start: November 29, 2024 No Primary Care Physician Referring Provider Active Start: November 29, 2024 Dr. Brett Vincent MD Attending physician Active Start: November 29, 2024 Team Status: Active Member Role/Relationship Status Dates Kassie Polanco NP, HUMAN RESOURCES TRAINING MANAGER-C Primary care physician Active Start: December 06, 2024 Dr. Savannah Kinney MD Attending physician Active Start: December 06, 2024 Dr. Savannah Kinney MD Nurse Practitioner Active Start: December 06, 2024 No Primary Care Physician Referring Provider Active Start: December 06, 2024 Team Status: Inactive Member Role/Relationship Status Dates Kassie Polanco HUMAN RESOURCES TRAINING MANAGER, HUMAN RESOURCES TRAINING MANAGER-C Primary care physician Active Start: December 13, 2024 End: December 13, 2024 Dr. Savannah Kinney MD Attending physician Active Start: December 13, 2024 End: December 13, 2024 No Primary Care Physician Referring Provider Active Start: December 13, 2024 End: December 13, 2024 Team Status: Active Member Role/Relationship Status Dates Kassie Polanco NP, HUMAN RESOURCES TRAINING MANAGER-C Primary care physician Active Start: December 13, 2024 Dr. Savannah Kinney MD Attending physician Active Start: December 13, 2024 Dr. Savannah Kinney MD Nurse Practitioner Active Start: December 13, 2024 No Primary Care Physician Referring Provider Active Start: December 13, 2024 Team Status: Inactive Member Role/Relationship Status Dates Kassie Polanco NP, HUMAN RESOURCES TRAINING MANAGER-C Primary care physician Active Start: January 03, 2025 End: January 03, 2025 Dr. Savannah Kinney MD Attending physician Active Start: January 03, 2025 End: January 03, 2025 Dr. Savannah Kinney MD Referring Provider Active Start: January 03, 2025 End: January 03, 2025 Team Status: Active Member Role/Relationship Status Dates Kassie Polanco NP, HUMAN RESOURCES TRAINING MANAGER-C Primary care physician Active Start: January 03, 2025 Dr. Savannah Kinney MD Attending physician Active Start: January 03, 2025 Dr. Savannah Kinney MD Referring Provider Active Start: January 03, 2025 Dr. Savannah Kinney MD Nurse Practitioner Active Start: January 03, 2025 Team Status: Active Member Role/Relationship Status Dates Kassie Polanco NP, HUMAN RESOURCES TRAINING MANAGER-C Primary care physician Active Start: January 10, 2025 Dr. Savannah Kinney MD Attending physician Active Start: January 10, 2025 Dr. Savannah Kinney MD Referring Provider Active Start: January 10, 2025 Dr. Savannah Kinney MD Nurse Practitioner Active Start: January 10, 2025 Team Status: Inactive Member Role/Relationship Status Dates Kassie Polanco HUMAN RESOURCES TRAINING MANAGER, HUMAN RESOURCES TRAINING MANAGER-C Primary care physician Active Start: January 15, 2025 End: January 15, 2025 Dr. Enzo Hernandez MD Attending physician Active Start: January 15, 2025 End: January 15, 2025 Dr. Enzo Hernandez MD Referring Provider Active Start: January 15, 2025 End: January 15, 2025 Team Status: Active Member Role/Relationship Status Dates Kassie Polanco HUMAN RESOURCES TRAINING MANAGER, HUMAN RESOURCES TRAINING MANAGER-C Primary care physician Active Start: January 17, 2025 Dr. Savannah Kinney MD Attending physician Active Start: January 17, 2025 Dr. Savannah Kinney MD Referring Provider Active Start: January 17, 2025 Dr. Savannah Kinney MD Nurse Practitioner Active Start: January 17, 2025 Team Status: Inactive Member Role/Relationship Status Dates Kassie Polanco HUMAN RESOURCES TRAINING MANAGER, HUMAN RESOURCES TRAINING MANAGER-C Primary care physician Active Start: January 22, 2025 End: January 22, 2025 Kassie Polanco HUMAN RESOURCES TRAINING MANAGER, HUMAN RESOURCES TRAINING MANAGER-C Referring Provider Active Start: January 22, 2025 End: January 22, 2025 Dr. Mario Rai DO Attending physician Active Start: January 22, 2025 End: January 22, 2025 Team Status: Active Member Role/Relationship Status Dates Kassie Polanco HUMAN RESOURCES TRAINING MANAGER, HUMAN RESOURCES TRAINING MANAGER-C Primary care physician Active Start: January 22, 2025 Kassie Polanco HUMAN RESOURCES TRAINING MANAGER, HUMAN RESOURCES TRAINING MANAGER-C Referring Provider Active Start: January 22, 2025 Dr. Mario Rai DO Attending physician Active Start: January 22, 2025 Dr. Mario Rai DO Nurse Practitioner Active Start: January 22, 2025 Team Status: Active Member Role/Relationship Status Dates Kassie Polanco NP, HUMAN RESOURCES TRAINING MANAGER-C Primary care physician Active Start: January 24, 2025 Dr. Savannah Kinney MD Attending physician Active Start: January 24, 2025 Dr. Savannah Kinney MD Referring Provider Active Start: January 24, 2025 Dr. Savannah Kinney MD Nurse Practitioner Active Start: January 24, 2025 Team Status: Inactive Member Role/Relationship Status Dates Kassie Sherri HUMAN RESOURCES TRAINING MANAGER, HUMAN RESOURCES TRAINING MANAGER-C Primary care physician Active Start: January 30, 2025 End: January 30, 2025 Kassie Polanco HUMAN RESOURCES TRAINING MANAGER, HUMAN RESOURCES TRAINING MANAGER-C Referring Provider Active Start: January 30, 2025 End: January 30, 2025 Shell Brewer HUMAN RESOURCES TRAINING MANAGER-C Attending physician Active Start: January 30, 2025 End: January 30, 2025 Team Status: Inactive Member Role/Relationship Status Dates Kassie Polanco NP, HUMAN RESOURCES TRAINING MANAGER-C Primary care physician Active Start: January 31, 2025 End: February 03, 2025 Dr. Savannah Kinney MD Attending physician Active Start: January 31, 2025 End: February 03, 2025 Dr. Savannah Kinney MD Referring Provider Active Start: January 31, 2025 End: February 03, 2025 Team Status: Active Member Role/Relationship Status Dates Kassie Polanco HUMAN RESOURCES TRAINING MANAGER, HUMAN RESOURCES TRAINING MANAGER-C Primary care physician Active Start: January 31, 2025 Dr. Savannah Kinney MD Attending physician Active Start: January 31, 2025 Dr. Savannah Kinney MD Referring Provider Active Start: January 31, 2025 Dr. Savannah Kinney MD Nurse Practitioner Active Start: January 31, 2025 Team Status: Active Member Role/Relationship Status Dates Kassie Polanco NP, HUMAN RESOURCES TRAINING MANAGER-C Primary care physician Active Start: February 07, 2025 Dr. Savannah Kinney MD Attending physician Active Start: February 07, 2025 Dr. Savannah Kinney MD Referring Provider Active Start: February 07, 2025 Dr. Savannah Kinney MD Nurse Practitioner Active Start: February 07, 2025 Team Status: Active Member Role/Relationship Status Dates Kassie Polanco NP, HUMAN RESOURCES TRAINING MANAGER-C Primary care physician Active Start: February 14, 2025 Dr. Savannah Kinney MD Attending physician Active Start: February 14, 2025 Dr. Savannah Kinney MD Referring Provider Active Start: February 14, 2025 Dr. Savannah Kinney MD Nurse Practitioner Active Start: February 14, 2025 Team Status: Inactive Member Role/Relationship Status Dates Kassie Polanco HUMAN RESOURCES TRAINING MANAGER, HUMAN RESOURCES TRAINING MANAGER-C Primary care physician Active Start: February 21, 2025 End: March 05, 2025 Dr. Savannah Kinney MD Attending physician Active Start: February 21, 2025 End: March 05, 2025 Dr. Savannah Kinney MD Referring Provider Active Start: February 21, 2025 End: March 05, 2025 Team Status: Active Member Role/Relationship Status Dates Kassie Polanco NP, HUMAN RESOURCES TRAINING MANAGER-C Primary care physician Active Start: February 21, 2025 Dr. Savannah Kinney MD Attending physician Active Start: February 21, 2025 Dr. Savannah Kinney MD Referring Provider Active Start: February 21, 2025 Dr. Savannah Kinney MD Nurse Practitioner Active Start: February 21, 2025 Team Status: Active Member Role/Relationship Status Dates Kassie Polanco HUMAN RESOURCES TRAINING MANAGER, HUMAN RESOURCES TRAINING MANAGER-C Primary care physician Active Start: December 06, 2024 Dr. Savannah Kinney MD Attending physician Active Start: December 06, 2024 Dr. Savannah Kinney MD Nurse Practitioner Active Start: December 06, 2024 No Primary Care Physician Referring Provider Active Start: December 06, 2024 Team Status: Inactive Member Role/Relationship Status Dates Kassie Polanco NP, HUMAN RESOURCES TRAINING MANAGER-C Primary care physician Active Start: December 13, 2024 End: December 13, 2024 Dr. Savannah Kinney MD Attending physician Active Start: December 13, 2024 End: December 13, 2024 No Primary Care Physician Referring Provider Active Start: December 13, 2024 End: December 13, 2024 Team Status: Active Member Role/Relationship Status Dates Kassie Polanco NP, HUMAN RESOURCES TRAINING MANAGER-C Primary care physician Active Start: December 13, 2024 Dr. Savannah Kinney MD Attending physician Active Start: December 13, 2024 Dr. Savannah Kinney MD Nurse Practitioner Active Start: December 13, 2024 No Primary Care Physician Referring Provider Active Start: December 13, 2024 Team Status: Inactive Member Role/Relationship Status Dates Kassie Polanco HUMAN RESOURCES TRAINING MANAGER, HUMAN RESOURCES TRAINING MANAGER-C Primary care physician Active Start: January 03, 2025 End: January 03, 2025 Dr. Savannah Kinney MD Attending physician Active Start: January 03, 2025 End: January 03, 2025 Dr. Savannah Kinney MD Referring Provider Active Start: January 03, 2025 End: January 03, 2025 Team Status: Active Member Role/Relationship Status Dates Kassie Polanco HUMAN RESOURCES TRAINING MANAGER, HUMAN RESOURCES TRAINING MANAGER-C Primary care physician Active Start: January 03, 2025 Dr. Savannah Kinney MD Attending physician Active Start: January 03, 2025 Dr. Savannah Kinney MD Referring Provider Active Start: January 03, 2025 Dr. Savannah Kinney MD Nurse Practitioner Active Start: January 03, 2025 Team Status: Active Member Role/Relationship Status Dates Kassie Polanco NP, HUMAN RESOURCES TRAINING MANAGER-C Primary care physician Active Start: January 10, 2025 Dr. Savannah Kinney MD Attending physician Active Start: January 10, 2025 Dr. Savannah Kinney MD Referring Provider Active Start: January 10, 2025 Dr. Saavnnah Kinney MD Nurse Practitioner Active Start: January 10, 2025 Team Status: Inactive Member Role/Relationship Status Dates Kassie Polanco NP, HUMAN RESOURCES TRAINING MANAGER-C Primary care physician Active Start: January 15, 2025 End: January 15, 2025 Dr. Enzo Hernandez MD Attending physician Active Start: January 15, 2025 End: January 15, 2025 Dr. Enzo Hernandez MD Referring Provider Active Start: January 15, 2025 End: January 15, 2025 Team Status: Active Member Role/Relationship Status Dates Kassie Polanco NP, HUMAN RESOURCES TRAINING MANAGER-C Primary care physician Active Start: January 17, 2025 Dr. Savannah Kinney MD Attending physician Active Start: January 17, 2025 Dr. Savannah Kinney MD Referring Provider Active Start: January 17, 2025 Dr. Savannah Kinney MD Nurse Practitioner Active Start: January 17, 2025 Team Status: Inactive Member Role/Relationship Status Dates Kassie Polanco HUMAN RESOURCES TRAINING MANAGER, HUMAN RESOURCES TRAINING MANAGER-C Primary care physician Active Start: January 22, 2025 End: January 22, 2025 Kassie Ploanco HUMAN RESOURCES TRAINING MANAGER, HUMAN RESOURCES TRAINING MANAGER-C Referring Provider Active Start: January 22, 2025 End: January 22, 2025 Dr. Mario Rai DO Attending physician Active Start: January 22, 2025 End: January 22, 2025 Team Status: Active Member Role/Relationship Status Dates Kassie Polanco HUMAN RESOURCES TRAINING MANAGER, HUMAN RESOURCES TRAINING MANAGER-C Primary care physician Active Start: January 22, 2025 Kassie Polanco HUMAN RESOURCES TRAINING MANAGER, HUMAN RESOURCES TRAINING MANAGER-C Referring Provider Active Start: January 22, 2025 Dr. Mario Rai DO Attending physician Active Start: January 22, 2025 Dr. Mario Rai DO Nurse Practitioner Active Start: January 22, 2025 Team Status: Active Member Role/Relationship Status Dates Kassie Polanco NP, HUMAN RESOURCES TRAINING MANAGER-C Primary care physician Active Start: January 24, 2025 Dr. Savannah Kinney MD Attending physician Active Start: January 24, 2025 Dr. Savannah Kinney MD Referring Provider Active Start: January 24, 2025 Dr. Savannah Kinney MD Nurse Practitioner Active Start: January 24, 2025 Team Status: Inactive Member Role/Relationship Status Dates Kassie Polanco HUMAN RESOURCES TRAINING MANAGER, HUMAN RESOURCES TRAINING MANAGER-C Primary care physician Active Start: January 30, 2025 End: January 30, 2025 Kassie Polanco HUMAN RESOURCES TRAINING MANAGER, HUMAN RESOURCES TRAINING MANAGER-C Referring Provider Active Start: January 30, 2025 End: January 30, 2025 Shell Brewer NP-C Attending physician Active Start: January 30, 2025 End: January 30, 2025 Team Status: Inactive Member Role/Relationship Status Dates Kassie Polanco NP, HUMAN RESOURCES TRAINING MANAGER-C Primary care physician Active Start: January 31, 2025 End: February 03, 2025 Dr. Savannah Kinney MD Attending physician Active Start: January 31, 2025 End: February 03, 2025 Dr. Savannah Kinney MD Referring Provider Active Start: January 31, 2025 End: February 03, 2025 Team Status: Active Member Role/Relationship Status Dates Kassie Polanco NP, HUMAN RESOURCES TRAINING MANAGER-C Primary care physician Active Start: January 31, 2025 Dr. Savannah Kinney MD Attending physician Active Start: January 31, 2025 Dr. Savannah Kinney MD Referring Provider Active Start: January 31, 2025 Dr. Savannah Kinney MD Nurse Practitioner Active Start: January 31, 2025 Team Status: Active Member Role/Relationship Status Dates Kassie Polanco NP, HUMAN RESOURCES TRAINING MANAGER-C Primary care physician Active Start: February 07, 2025 Dr. Savannah Kinney MD Attending physician Active Start: February 07, 2025 Dr. Savannah Kinney MD Referring Provider Active Start: February 07, 2025 Dr. Savannah Kinney MD Nurse Practitioner Active Start: February 07, 2025 Team Status: Active Member Role/Relationship Status Dates Kassie Polanco HUMAN RESOURCES TRAINING MANAGER, HUMAN RESOURCES TRAINING MANAGER-C Primary care physician Active Start: February 14, 2025 Dr. Savannah Kinney MD Attending physician Active Start: February 14, 2025 Dr. Savannah Kinney MD Referring Provider Active Start: February 14, 2025 Dr. Savannah Kinney MD Nurse Practitioner Active Start: February 14, 2025 Team Status: Inactive Member Role/Relationship Status Dates Kassie Polanco NP, HUMAN RESOURCES TRAINING MANAGER-C Primary care physician Active Start: February 21, 2025 End: March 05, 2025 Dr. Savannah Kinney MD Attending physician Active Start: February 21, 2025 End: March 05, 2025 Dr. Savannah Kinney MD Referring Provider Active Start: February 21, 2025 End: March 05, 2025 Team Status: Active Member Role/Relationship Status Dates Kassie Polanco NP, HUMAN RESOURCES TRAINING MANAGER-C Primary care physician Active Start: February 21, 2025 Dr. Savannah Kinney MD Attending physician Active Start: February 21, 2025 Dr. Savannah Kinney MD Referring Provider Active Start: February 21, 2025 Dr. Savannah Kinney MD Nurse Practitioner Active Start: February 21, 2025 Team Status: Inactive Member Role/Relationship Status Dates Kassie Polanco HUMAN RESOURCES TRAINING MANAGER, HUMAN RESOURCES TRAINING MANAGER-C Primary care physician Active Start: March 07, 2025 End: March 18, 2025 Dr. Savannah Kinney MD Attending physician Active Start: March 07, 2025 End: March 18, 2025 Dr. Savannah Kinney MD Referring Provider Active Start: March 07, 2025 End: March 18, 2025 Team Status: Active Member Role/Relationship Status Dates Kassie Polanco NP, HUMAN RESOURCES TRAINING MANAGER-C Primary care physician Active Start: March 07, 2025 Dr. Savannah Kinney MD Attending physician Active Start: March 07, 2025 Dr. Savannah Kinney MD Referring Provider Active Start: March 07, 2025 Dr. Savannah Kinney MD Nurse Practitioner Active Start: March 07, 2025 Team Status: Active Member Role/Relationship Status Dates Kassie Polanco NP, HUMAN RESOURCES TRAINING MANAGER-C Primary care physician Active Start: March 28, 2025 Dr. Savannah Kinney MD Attending physician Active Start: March 28, 2025 Dr. Savannah Kinney MD Referring Provider Active Start: March 28, 2025 Team Status: Active Member Role/Relationship Status Dates Kassie Polanco NP, HUMAN RESOURCES TRAINING MANAGER-C Primary care physician Active Start: March 28, 2025 Dr. Savannah Kinney MD Attending physician Active Start: March 28, 2025 Dr. Savannah Kinney MD Referring Provider Active Start: March 28, 2025 Dr. Savannah Kinney MD Nurse Practitioner Active Start: March 28, 2025 Source Comments (unrecognize d section and content) In the event this informatio n is protected by the Federal Confidentiality of Alcohol and Drug Abuse Patient Records regulations: The Federal rules restrict any use of the information to criminally investigate or prosecute any alcohol or drug abuse patient.[facility] the event this information is protected by the Federal Confidentiality of Alcohol and Drug Abuse Patient Records regulations: The Federal rules restrict any use of the information to criminally investigate or prosecute any alcohol or drug abuse patient.[facility] Reason for Visit (unrecogniz ed section and content) Reason Comments New Patient FOR RECORDS PERTAINING TO PATIENTS WHO ARE OR HAVE BEEN ENROLLED IN A CHEMICAL DEPENDENCY/SUBSTANCEABUSE PROGRAM, SOME INFORMATION MAY BE OMITTED. This clinical summary was aggregated from multiple sources. Caution should be exercised in using it in the provision of clinical care. This summary normalizes information from multiple sources, and as a consequence, information in this document may materially change the coding, format and clinical context of patient data. In addition, data may be omitted in some cases. CLINICAL DECISIONS SHOULD BE BASED ON THE PRIMARY CLINICAL RECORDS. [facility]. provides no warranty or guarantee of the accuracy or completeness of information in this document.
--- NOTE | 2025-05-23 22:46 | EKG12_ITS ---
Test Reason : DYSRHYTHMIA Blood Pressure : */* mmHG Vent. Rate : 117 BPM Atrial Rate : 117 BPM P-R Int : 116 ms QRS Dur : 62 ms QT Int : 302 ms P-R-T Axes : 20 37 62 degrees QTcB Int : 421 ms Sinus tachycardia Otherwise normal ECG Reconfirmed by Royce Hendricks ([id number]), editorial director TSERING WEINBERG ([id number]) on 05/27/2025 10:13:28 AM Also confirmed by Royce Hendricks ([id number]), editorial director TSERING WEINBERG ([id number]) on 05/28/2025 8:11:54 AM Referred By: Confirmed By: Royce Hendricks
[2025-05-23 22:48] VITALS: BP 122/80; PULSE 116; RESP 22; TEMP 37.1; O2SAT 94; BMI 28.4
[2025-05-23] MEDS: 0.9% Normal Saline (1000mL) 1,000 ML 999 ML IV (23:09)
[2025-05-23] MEDS: Ceftriaxone 2 GM in 0.9% Normal Saline (50mL MB+) 50 ML IV (23:09)
--- NOTE | 2025-05-23 23:10 | EDS_ITS ---
HPI History of Present Illness Chief Complaint: Complaint Narrative Narrative: Patient was seen and examined after presenting to ED for evaluation after not improving after 2 full days with the Bactrim for UTI patient has history of spina bifida she has a suprapubic catheter as well. [facility] Medical History Suprapubic catheter History of Clostridium difficile infection Anxiety Pressure ulcer Easy bruising Dietary restriction Difficulty chewing Heartburn Sleep apnea On home oxygen therapy Hypertension Decubitus ulcer of right buttock, stage 3 Decubitus ulcer of left buttock, stage 3 GI problem Seasonal allergies Wears glasses Depression Uses wheelchair History of urinary self-catheterization Back pain Constipation Gastric reflux Non-smoker BiPAP (biphasic positive airway pressure) dependence Asthma History of edema History of echocardiogram Hx of back injury Acquired scoliosis Spina bifida Home Medications ?Medication ?Instructions ?Recorded ?Last Taken ?Type multivitamin with folic acid 400 1 tab PO QHS general health 04/24/13 05/24/25 History mcg tablet (Thera) omeprazole 20 mg capsule,delayed 20 mg PO QHS acid ref lux 03/11/18 05/24/25 History release aspirin 81 mg chewable tablet 81 mg PO DAILY@0800 10/0 02/2105/24/25 Rx polyethylene glycol 3350 17 gram 17 gm PO DAILY PRN WA N Constipation 09/14/20 01/22/25 History oral powder packet budesonide 0.25 mg/2 mL suspension 0.25 mg inhalation BID respiratory 10/28/21 05/24/25 History for nebulization loratadine 10 mg tablet 10 mg PO QDAY allergies 08/0405/24/25 History mupirocin calcium 2 % topical cream 1 applic topical B ID skin 08/21/24 05/24/25 History oxybutynin chloride 15 mg 5 mg PO TID BLADDER 08/21/24 05/24/25 History tablet,extended release 24 hr psyllium husk 0.52 gram capsule 0.52 g PO QDAY constip ation 08/21/24 05/24/25 History (Fiber Laxative (psyllium husk)) sertraline 50 mg tablet 50 mg PO QDAY antidepressant 08/21/24 05/24/25 History Bacillus coagulans 250 million 1 tab PO DAILY probioti c 01/22/25 05/24/25 History cell chewable tablet (Digestive Advantage Probiotic Gummy) lisinopril 20 mg tablet 20 mg PO DAILY BP 01/22/25 1 07/25/24 History bisacodyl 5 mg tablet,delayed 5 mg PO ONCE PRN constip ation #30 01/30/25 Unknown Rx release (Dulcolax (bisacodyl)) tabs lubiprostone 24 mcg capsule 24 mcg PO BID constipation 01/30/25 05/24/25 History potassium citrate 10 mEq (1,080 10 meq PO BID suppleme nt 05/23/25 05/24/25 History mg) tablet,extended release sulfamethoxazole 800 1 tab PO BID infection 05/2405/24/25 History mg-trimethoprim 160 mg tablet Allergy/AdvReac Type Severity Reaction Status Date / Time amoxicillin (From Augmentin) AdvReac Diarrhea Verified 05/23/25 20:47 azithromycin (From Zithromax AdvReac Diarrhea Verified 05/23/25 20:47 Z-Turner) ciprofloxacin (From Cipro) AdvReac Pain in Verified 05/23/25 20:47 joints clavulanic acid (From AdvReac Diarrhea Verified 05/23/25 20:47 Augmentin) Family History (Updated 05/24/25 @ 01:[address] Roque Nieto MD) Other Hypertension Surgical History History of brain surgery History of incision and drainage Hx of eye surgery Hx of ileostomy History of brain shunt History of cystoscopy Hx of cholecystectomy Social History Smoking Status: Never smoker ROS ROS ED ROS Narrative Pertinent Positives: Altered mental status more confused tachycardic overall weaker recently diagnosed with UTI on Bactrim Pertinent Negatives: Fevers vomiting rash The remainder of review of systems negative unless otherwise stated in the HPI above. Systems reviewed including constitutional, psychiatric, cardiovascular, respiratory, integument, HENT, gastrointestinal. EXAM Physical Exam Narrative Exam Narrative: Patient is afebrile she is tachycardic and tachypneic apparently having bouts of effusion. Abdomen is soft nontender nondistended her skin is warm and well- perfused Const Vital Signs: 05/23/25 20:45 05/23/25 22:48 05/23/25 22:48 Temperature 98.2 F 98.7 F Temperature Source Oral Oral Pulse Rate 117 H 116 H Respiratory Rate 16 22 H Blood Pressure 110/90 H 122/80 H Blood Pressure Mean 96 94 Pulse Ox 96 94 94 Oxygen Delivery Method Room Air Room Air Room Air 05/23/25 23:14 05/24/25 00:16 05/24/25 00:50 Temperature 98.7 F 98.5 F 98.5 F Temperature Source Oral Oral Pulse Rate 118 H 107 H 107 H Respiratory Rate 20 H 20 H 20 H Blood Pressure 100/78 114/82 H 114/82 H Blood Pressure Mean 85 92 92 Pulse Ox 94 95 95 Oxygen Delivery Method Room Air Room Air Sepsis Attestation Sepsis Alert: Yes Sepsis Attestation: Agree w/Sepsis Date exam was performed: 05/23/25 Time exam was performed: 22:35 Possible Source of Sepsis: Genitourinary Sepsis Organ Dysfunction Criteria Present: New/Unexplained change in mental status Fluid Resuscitation Fluid resuscitation indicated?: Yes Fluid Resuscitation ordered: Lesser volume fluid bolus ordered Amount of fluid ordered: 2,000 Reason for lesser fluid bolus:: Other (Not hypotensive and lactic acid was not greater than 4) Sepsis Note Date exam was performed: 05/24/25 Time exam was performed: 00:34 Sepsis Attestation: Sepsis re-evaluation was performed MDM MDM MDM Narrative Medical decision making narrative: Nursing notes, triage notes, available previous documentation, and vital signs were reviewed. Any discrepancies noted were addressed. Differential Diagnoses: Concern for sepsis from failure of outpatient therapy for her UTI low suspicion for meningitis Interventions: Antibiotics Given: Ceftriaxone Fluids Given: 2 L normal saline Labs Reviewed: No coagulopathy electrolyte abnormality renal insufficiency or transaminitis lactic acid was less than 1. Urine appears to be infected she also has 15 ketones. Patient has a leukocytosis of 13.5 hemoglobin is 12.7 Imaging Reviewed: Personally reviewed and interpreted by me: Chest x-ray no pneumonia. You can see her hardware in her back. EKG: Sinus tachycardia rate of 117. EKG interpretation is noted and agreed to in the EMR. The interpretation of this patient's EKG contributed directly to the care and management of this patient. Previous Documentation Reviewed: None available or applicable at this time. ED Course: Patient presenting with tachycardia tachypnea and confusion and concern that the patient may be developing sepsis from failure to outpatient treatment for UTI she will be given antibiotics here we will likely hydrate her with IV fluids and plan for admission. Patient found to have a UTI still which she was failing the treatment for no evidence of pneumonia on the chest x-ray but given her tachycardia tachypnea encephalopathy with the failure of outpatient treatment she we will require admission for more IV antibiotics I did discuss with the hospitalist who was agreeable to admission This note was made utilizing voice recognition software. All attempts were made to correct spelling or other errors prior to note completion. However, due to the fast-paced nature of emergency medicine, some errors may still be present. Lab Data Labs: Laboratory Results - last 24 hr 05/23/25 05/23/25 22:50 23:00 WBC 13.5 H RBC 4.74 Hgb 12.7 Hct 40.3 MCV 85.0 MCH 26.8 L MCHC 31.5 L RDW Std Deviation 52.1 H RDW Coeff of Melodie 16.9 H Plt Count 554 H MPV 9.4 Immature Gran % (Auto) 0.400 Neut % (Auto) 67.6 Lymph % (Auto) 23.6 Young % (Auto) 5.9 Eos % (Auto) 1.8 Baso % (Auto) 0.7 Absolute Neuts (auto) 9.1 H Absolute Lymphs (auto) 3.18 Nucleated RBC % 0 PT 13.4 INR 1.0 APTT 29.3 Sodium 133 Potassium 4.4 Chloride 97 L Carbon Dioxide 24.3 Anion Gap 13 BUN 17 Creatinine 0.65 L Estim Creat Clear Calc 87.58 Est GFR (MDRD) Non-Af 107 BUN/Creatinine Ratio 26.2 H Glucose 100 H Lactic Acid < 1.0 Calcium 9.7 Total Bilirubin 0.16 AST 19 ALT 25 Alkaline Phosphatase 106 H Total Protein 7.8 Albumin 4.1 Globulin 3.6 Albumin/Globulin Ratio 1.1 Urine Color Yellow Urine Clarity Sl. Cloudy Urine pH 6.0 Ur Specific [place] 1.020 Urine Protein 30 H Urine Glucose (UA) Normal Urine Ketones 15 H Urine Occult Blood 25 H Urine Nitrite Negative Urine Bilirubin 1 H Urine Urobilinogen 1 H Ur Leukocyte Esterase 500 H Urine RBC 0-5 SEEN Urine WBC 10-25 SEEN Ur Squamous Epith Cells 0-5 SEEN Urine Bacteria 1+ Urine Mucus RARE Radiography Diagnostic Testing: Clinical Impression(s) from Imaging Studies Chest X-Ray 05/23/25 23:35 IMPRESSION: No Acute Findings. Reading [facility] Discharge Plan Dx/Rx/DC Orders Clinical Impression: Sepsis, Failure of outpatient treatment, Encephalopathy, Acute urinary tract infection Disposition Disposition: Acute Care Hospital [facility] Discharge Date/Time: 05/24/25 01:55
[2025-05-23 23:12] LABS: Color, Urine Yellow (Yellow); Glucose, Dipstick Normal (Normal); Ketone-Dipstick 15 mg/dl (Negative); Leukocyte Esterase-Dipstick 500 /ul (Negative); Nitrite-Dipstick Negative (Negative); Occult Blood-Urine 25 /ul (Negative); Protein-Dipstick 30 mg/dl (Negative); Specific Gravity, Urine 1.020 (1.002-1.030)
[2025-05-23 23:14] VITALS: BP 100/78; PULSE 118; RESP 20; TEMP 37.1; O2SAT 94
[2025-05-23 23:24] LABS: Prothrombin Time (Protime)PT. 13.4 SECONDS (11.7-14.9)
[2025-05-23 23:25] LABS: Partial Thromboplast Time 29.3 Seconds (24.1-36.2)
[2025-05-23 23:30] LABS: Urine Bilirubin Dipstick 1 mg/dL (Negative)
[2025-05-23 23:31] LABS: Mucous, Urine RARE /hpf (<or=2+); Red Blood Cells-Urine 0-5 SEEN /hpf (0-5); Squamous Epithelial Cells - UA 0-5 SEEN /hpf (5-10)
--- NOTE | 2025-05-23 23:35 | RAD_ITS ---
PROCEDURE: CHEST 1 VIEW (PORTABLE) 05/23/2025 REASON FOR EXAM: WORSENING INFECTION TECHNIQUE: Frontal view of the chest. COMPARISON: None available. FINDINGS: Hardware: None. Heart: The heart size is normal. Lungs: The lungs are clear. No pneumothorax or pleural effusion. Bones: Severe scoliosis of the visualized spine. Partially imaged spinal fixation hardware. RAD/Chest 1 View (Portable) IMPRESSION: No Acute Findings. [facility]
[2025-05-23 23:50] LABS: AST(SGOT) 19 U/L (<=31); Alanine Aminotransfer ALT/SGPT 25 U/L (<=34); Albumin, Serum 4.1 g/dL (3.5-5.0); Alkaline Phosphatase 106 U/L (35-104); Anion Gap 13 (5-15); BUN 17 mg/dL (4-19); BUN/Creat Ratio 26.2 RATIO (10-20); Calcium,Total 9.7 mg/dL (7.6-11.0); Carbon Dioxide 24.3 mmol/L (21.0-32.0); Chloride 97 mmol/L (98-108); Estimated Creatinine Clearance 87.58 ml/min (50-250); Globulin 3.6 g/dL (2.2-4.2); Glucose 100 mg/dL (70-99); Potassium 4.4 mmol/L (3.3-5.1)
[2025-05-24] VITALS (10 sets, daily range): BP systolic 88–117; BP diastolic 57–82; PULSE 95–117; RESP 16–22; TEMP 36.8–37.1; O2SAT 93–95; BMI 26.9
[2025-05-24 00:13] LABS: Hematocrit 40.3 % (37-47); Hemoglobin 12.7 g/dL (12.0-15.0); Immature Granulocytes Count 0.060 X10^3/uL (0.0-0.0); Mean Corp Hgb Conc 31.5 g/dL (32-36); Mean Corpuscular Volume 85.0 fL (81-99); Mean Platelet Vol. 9.4 fl (6.2-12.0); NRBC Flagged by Analyzer 0 % (0-5); Platelet Count 554 K/mm3 (150-450); RBC Distribution Width CV 16.9 % (11.6-14.6); RBC Distribution Width SD 52.1 fl (35.1-43.9); Red Blood Count 4.74 M/mm3 (4.2-5.4); White Blood Count 13.5 K/mm3 (4.4-11.0)
--- NOTE | 2025-05-24 01:10 | PCM.HP.STD ---
HPI - General General Date of Admission: 05/24/25 HPI Narrative TOMMY DE LA TORRE, is a 50 F who presents to the hospital for failure of outpatient treatment for a UTI. She went to an outside hospital on 05/20/2025 and was diagnosed with UTI and started on Bactrim. In review of the culture data from that hospital she has greater than 100,000 CFU's of Klebsiella that is resistant to Bactrim which is the antibiotic she was placed on. She does have a suprapubic catheter and has history of frequent UTIs, this has been replaced. She is tachycardic here in the hospital but she is always tachycardic, she has a white count of 13.5 and tachypnea up to 22 consistent with sepsis. She was given a dose of Rocephin in the emergency room and repeat urine cultures and blood cultures were obtained. FORMERLY [facility], [facility] Medical History Suprapubic catheter History of Clostridium difficile infection Anxiety Pressure ulcer Easy bruising Dietary restriction Difficulty chewing Heartburn Sleep apnea On home oxygen therapy Hypertension Decubitus ulcer of right buttock, stage 3 Decubitus ulcer of left buttock, stage 3 GI problem Seasonal allergies Wears glasses Depression Uses wheelchair History of urinary self-catheterization Back pain Constipation Gastric reflux Non-smoker BiPAP (biphasic positive airway pressure) dependence Asthma History of edema History of echocardiogram Hx of back injury Acquired scoliosis Spina bifida Home Medications ?Medication ?Instructions ?Recorded ?Last Taken ?Type multivitamin with folic acid 400 1 tab PO QHS general health 04/24/13 01/22/25 History mcg tablet (Thera) omeprazole 20 mg capsule,delayed 20 mg PO QHS acid reflux 03/11/18 01/21/25 History release aspirin 81 mg chewable tablet 81 mg PO DAILY@0800 03/14/18 01/22/25 Rx polyethylene glycol 3350 17 gram 17 gm PO DAILY PRN PRN Constipation 09/14/20 01/22/25 History oral powder packet budesonide 0.25 mg/2 mL suspension 0.25 mg inhalation BID 10/28/21 Unknown History for nebulization loratadine 10 mg tablet 10 mg PO QDAY 08/21/24 01/22/25 History mupirocin calcium 2 % topical cream 1 applic topical BID 08/21/24 01/22/25 History oxybutynin chloride 15 mg 5 mg PO TID BLADDER 08/21/24 01/22/25 History tablet,extended release 24 hr psyllium husk 0.52 gram capsule 0.52 g PO QDAY 08/21/24 01/22/25 History (Fiber Laxative (psyllium husk)) sertraline 50 mg tablet 50 mg PO QDAY 08/21/24 01/22/25 History Bacillus coagulans 250 million 1 tab PO DAILY 01/22/25 Unknown History cell chewable tablet (Digestive Advantage Probiotic Gummy) lisinopril 20 mg tablet 20 mg PO DAILY 01/22/25 01/22/25 History bisacodyl 5 mg tablet,delayed 5 mg PO ONCE PRN constipation #30 01/30/25 Unknown Rx release (Dulcolax (bisacodyl)) tabs lubiprostone 24 mcg capsule 24 mcg PO BID 01/30/25 Unknown History potassium citrate 10 mEq (1,080 10 meq PO BID 05/23/25 Unknown History mg) tablet,extended release Allergy/AdvReac Type Severity Reaction Status Date / Time amoxicillin (From Augmentin) AdvReac Diarrhea Verified 05/23/25 20:47 azithromycin (From Zithromax AdvReac Diarrhea Verified 05/23/25 20:47 Z-Turner) ciprofloxacin (From Cipro) AdvReac Pain in Verified 05/23/25 20:47 joints clavulanic acid (From AdvReac Diarrhea Verified 05/23/25 20:47 Augmentin) Family History (Updated 05/24/25 @ 01:[address] Roque Nieto MD) Other Hypertension Surgical History History of brain surgery History of incision and drainage Hx of eye surgery Hx of ileostomy History of brain shunt History of cystoscopy Hx of cholecystectomy Social History Smoking Status: Never smoker ROS Constitutional Constitutional: Denies chills, fatigue, fever(s) or malaise Eyes Eyes: Denies blurry vision ENT HEENT: Denies headache(s) or nasal discharge Cardiovascular Cardiovascular: Denies chest pain, dyspnea on exertion or syncope Respiratory/Chest Respiratory/Chest: Denies cough, shortness of breath at rest or shortness of breath with exertion Gastrointestinal Gastrointestinal: Denies constipation, diarrhea, nausea or vomiting Genitourinary Genitourinary: Denies dysuria Neurologic Neurologic: Reports confusion; Denies focal weakness, numbness or tremor(s) Psychiatric Psychiatric: Denies anxiety or depression Patient's Goals Of Care . Unable to discuss care goals with the patient and or patient sales representative metals at this time: Yes Vital Signs Vital Signs Vital Signs: 05/23/25 20:45 05/23/25 22:48 05/23/25 22:48 Temperature 98.2 F 98.7 F Temperature Source Oral Oral Pulse Rate 117 H 116 H Respiratory Rate 16 22 H Blood Pressure 110/90 H 122/80 H Blood Pressure Mean 96 94 Pulse Ox 96 94 94 Oxygen Delivery Method Room Air Room Air Room Air 05/23/25 23:14 05/24/25 00:16 05/24/25 00:50 Temperature 98.7 F 98.5 F 98.5 F Temperature Source Oral Oral Pulse Rate 118 H 107 H 107 H Respiratory Rate 20 H 20 H 20 H Blood Pressure 100/78 114/82 H 114/82 H Blood Pressure Mean 85 92 92 Pulse Ox 94 95 95 Oxygen Delivery Method Room Air Room Air Weight Weight: 144 lb 13.499 oz Body Mass Index (BMI) 28.4 Physical Exam Narrative General: Alert, Oriented x2, Cooperative, No apparent distress HEENT: Atraumatic, PERRLA, EOMI, Normocephalic Oral: Moist Mucosa Neck: Supple, No JVD Lungs: Diminished, Normal air movement, No rhonchi, No wheeze, No rales Cardiovascular: Tachycardic, Regular Rhythm, Normal S1, Normal S2, No murmurs Abdomen: Soft, Non Tender, Non-Distended, No Hepato-splenomegaly, suprapubic catheter Extremities: Edema, Capillary Refill Less than 3 Seconds Skin: No rashes, No breakdown Musculoskeletal: No Tenderness to Palpation of Joints or Extremities Neurological: No focal neurological deficits, baseline neurological issues with her history of spina bifida Psych/Mental Status: Normal Affect, Appropriate Results Lab / Micro Data 05/23/25 22:50 05/23/25 22:50 Labs: Laboratory Results - last 24 hr 05/23/25 22:50: WBC 13.5 H, RBC 4.74, Hgb 12.7, Hct 40.3, MCV 85.0, MCH 26.8 L, MCHC 31.5 L, RDW Std Deviation 52.1 H, RDW Coeff of Melodie 16.9 H, Plt Count 554 H, MPV 9.4, Immature Gran % (Auto) 0.400, Neut % (Auto) 67.6, Lymph % (Auto) 23.6, [place] % (Auto) 5.9, Eos % (Auto) 1.8, Baso % (Auto) 0.7, Absolute Neuts (auto) 9.1 H, Absolute Lymphs (auto) 3.18, Nucleated RBC % 0, PT 13.4, INR 1.0, APTT 29.3, Sodium 133, Potassium 4.4, Chloride 97 L, Carbon Dioxide 24.3, Anion Gap 13, BUN 17, Creatinine 0.65 L, Estim Creat Clear Calc 87.58, Est GFR (MDRD) Non-Af 107, BUN/Creatinine Ratio 26.2 H, Glucose 100 H, Lactic Acid < 1.0, Calcium 9.7, Total Bilirubin 0.16, AST 19, ALT 25, Alkaline Phosphatase 106 H, Total Protein 7.8, Albumin 4.1, Globulin 3.6, Albumin/Globulin Ratio 1.1 05/23/25 23:00: Urine Color Yellow, Urine Clarity Sl. Cloudy, Urine pH 6.0, Ur Specific [place] 1.020, Urine Protein 30 H, Urine Glucose (UA) Normal, Urine Ketones 15 H, Urine Occult Blood 25 H, Urine Nitrite Negative, Urine Bilirubin 1 H, Urine Urobilinogen 1 H, Ur Leukocyte Esterase 500 H, Urine RBC 0-5 SEEN, Urine WBC 10-25 SEEN, Ur Squamous Epith Cells 0-5 SEEN, Urine Bacteria 1+, Urine Mucus RARE Imaging Radiology Impression Chest X-Ray 05/23/25 23:35 IMPRESSION: No Acute Findings. [facility] Assessment & Plan Assessment/Plan (1) Acute urinary tract infection: PLAN: Plan 1. Sepsis secondary to UTI with failure of outpatient antibiotics ?>=100,000 CFU/ml Klebsiella pneumoniae ORGANISM: KLEBSIELLA PNEUMONIAE ANTIBIOTIC KELSEY DILUTN KELSEY INTERP Ampicillin >=32 Resistant Cefazolin <=4 Susceptible For uncomplicated urinary tract infections, cefazolin results can be used to pre Ceftriaxone <=1 Susceptible Cefepime <=1 Susceptible Ertapenem <=0.5 Susceptible Meropenem <=0.25 Susceptible Ampicillin/Sulbact 4 Susceptible Piperacillin/Tazobac <=4 Susceptible Gentamicin <=1 Susceptible Tobramycin <=1 Susceptible Trimeth sulfameth >=320 Resistant Ciprofloxacin <=0.25 Susceptible Nitrofurantoin 64 Intermediate ? Continue with antibiotics ? Urine cultures and blood cultures are pending ? Her suprapubic catheter was changed on arrival to the emergency room 2. Essential HTN ? Blood pressures are stable for now ? Will hold blood pressure medications for now can restart if necessary 3. Spina bifida with chronic wounds ? She is followed in the wound center 4. GERD ? Stable ? Continue PPI 5. Anxiety/depression ? Stable ? Continue Zoloft DVT: Lovenox Charges/Coding Visit Charges Inpatient E&M: 12296 Init Hosp L2
--- OUTSIDE RECORDS SUMMARY | 2025-05-24 01:29 | XMS RPT_ITS | CCD ---
Author Organization [facility] Care Team Providers Care Heel Stainer Name Role Phone LUIS ENRIQUE BRENNAN Unavailable Unavailable PENA, CHRISTOPHE E Unavailable Unavailable PENA, CHRISTOPHE E Unavailable Unavailable YOUSSEFI, MAXI Unavailable Unavailable YOUSSEFI, MAIX Unavailable Unavailable PENA, CHRISTOPHE E Unavailable Unavailable PENA, CHRISTOPHE E Unavailable Unavailable YOUSSEFI, MAXI Unavailable Unavailable YOUSSEFI, MAXI Unavailable Unavailable LUIS ENRIQUE BRENNAN Unavailable Unavailable PENA, CHRISTOPHE E Unavailable Unavailable PENA, CHRISTOPHE E Unavailable Unavailable Sherri LAW ENFORCEMENT DIRECTOR, LAW ENFORCEMENT DIRECTOR-C Kassie Primary Care Provider [phone] Dr. Savannah Kinney Attending Provider [phone] Dr. Savannah Kinney Other Provider [phone] Beto LAW ENFORCEMENT DIRECTOR, LAW ENFORCEMENT DIRECTOR-C Steph E Attending Provider [phone] Beto LAW ENFORCEMENT DIRECTOR, LAW ENFORCEMENT DIRECTOR-C Steph E Referring Provider [phone] Sherri CARD, LAW ENFORCEMENT DIRECTOR-C Kassie Primary Care Provider Dr. Savannah Kinney Attending Provider [phone] Savannah Kinney Other Provider [phone] Beto LAW ENFORCEMENT DIRECTOR, LAW ENFORCEMENT DIRECTOR-C Steph E Attending Provider Beto LAW ENFORCEMENT DIRECTOR, LAW ENFORCEMENT DIRECTOR-C Steph E Referring Provider Sherri CARD, LAW ENFORCEMENT DIRECTOR-C Kassie Primary Care Provider [phone] Dr. Savannah Kinney Attending Provider [phone] Savannah Kinney Other Provider [phone] Sherri LAW ENFORCEMENT DIRECTOR, LAW ENFORCEMENT DIRECTOR-C Kassie Primary Care Provider Dr. Savannah Kinney Attending Provider [phone] Gregoria, Dr. Nuñez Other Provider [phone] Unavailable Primary Care Provider Unavailyue Polanco LAW ENFORCEMENT DIRECTOR, LAW ENFORCEMENT DIRECTOR-C Kassie Primary Care Provider [phone] Dr. Savannah Kinney Attending Provider [phone] Dr. Savannah Kinney Other Provider [phone] Sherri LAW ENFORCEMENT DIRECTOR, LAW ENFORCEMENT DIRECTOR-C Kassie Primary Care Provider Gregoria, Dr. Nuñez Attending Provider [phone] Dr. Savannah Kinney Other Provider [phone] SHERRI CRYSTAL GAZER-REGULATORY AFFAIRS INTERN, KASSIE Roman Primary Care Unava ilable PHYSICIAN, [...] PENA MD Unavailable MARILEE LUGO MD Unavailable TALIA ALBARADO Unavailable Unavailable Nolan WOLF MD Unavailable [phone] ENEDINA MOLINA Unavailable Unavailable Bethany Molina Unavailable Unavailable Cristobal MOLINA MD Unavailable Raad Nagy Unavailable Unavailable RAAD NAGY Unavailable Unavailable Juliette Kenyon Unavailable Unavailable Kenyetta Hodge Unavailable Unavailable AYESHA SAMANO, RONNIE Andrade Unavailable Loir Hodge Unavailable Unavailable Bill MACHADO, Cherry Unavailable Unavaila MARY Corley Unavailable Unavailable John RN, Shantell Unavailable Unavailable Unavailable Unavailable MARYANN SAMANO, DR SAEED Primary Care Unavailable Sherri LAW ENFORCEMENT DIRECTOR-C, Kassie Primary Care Provider Sherri LAW ENFORCEMENT DIRECTOR-C, Kassie Referring Provider Osman LAW ENFORCEMENT DIRECTOR-C, Shell Attending Provider Gregoria SAMANO, Dr. Nuñez Attending Provider [phone] Gregoria SAMANO, Dr. Nuñez Other Provider [phone] Care Physician, No Primary Referring Provider Un available Dr. Brett Vincent MD Attending Provider Sherri LAW ENFORCEMENT DIRECTOR-C, Kassie Primary Care Provider Dr. Savannah Kinney MD Referring Provider [phone] Mary SAMANO, Dr. Enzo Stout Attending Provider Dr. Enzo Hernandez MD Referring Provider Sherri CARD-C, Kassie Referring Provider Dr. Mario Rai DO Attending Provider Dr. Mario Rai DO Other Provider Osman LAW ENFORCEMENT DIRECTORShell Argueta Attending Provider Sherri CARD-C, Kassie Primary Care Physician [phone] Dr. Savannah Kinney MD Attending Physician Dr. Savannah Kinney MD Nurse Practitioner [phone] Dr. Brett Vincent MD Attending Physician Mary [...] Consulting Unavailable PROVIDER, UNKNOWN Consulting Unavailable Sherri LAW ENFORCEMENT DIRECTOR, Kassie Primary Care Unavailable Oleghe, Efewongbe Attending Unavailable Oleghe, Efewongbe Referring Unavailable Oleghe, Efewongbe Consulting Unavailable Sherri LAW ENFORCEMENT DIRECTOR, Kassie Referring Unavailable Sherri LAW ENFORCEMENT DIRECTOR, Kassie Primary Care Unavailable Shell Brewer Attending Unavailable Care Physician, No Primary Referring Unava ilable Sherri LAW ENFORCEMENT DIRECTOR, Kassie Primary Care Unavailable Oleghe, Efewongbe Attending Unavailable Oleghe, Efewongbe Consulting Unavailable Sherri LAW ENFORCEMENT DIRECTOR, Kassie Primary Care Unavailable Oleghe, Efewongbe Referring Unavailable Oleghe, Efewongbe Attending Unavailable Oleghe, Efewongbe Consulting Unavailable Sherri LAW ENFORCEMENT DIRECTOR, Kassie Primary Care Unavailable Oleghe, Efewongbe Attending Unavailable Oleghe, Efewongbe Referring Unavailable Sherri LAW ENFORCEMENT DIRECTOR, Kassie Primary Care Unavailable Oleghe, Efewongbe Attending Unavailable Oleghe, Efewongbe Referring Unavailable Oleghe, Efewongbe Consulting Unavailable Sherri LAW ENFORCEMENT DIRECTOR, [facility] Primary Care Unavailable Oleghe, Efewongbe Attending Unavailable Oleghe, Efewongbe Referring Unavailable Sherri LAW ENFORCEMENT DIRECTOR, Kassie Referring Unavailable Sherri LAW ENFORCEMENT DIRECTOR, [facility] Primary Care Unavailable Friend, Mario Consulting Unavailable Friend, Mario Attending Unavailable Sherri LAW ENFORCEMENT DIRECTOR, [facility] Primary Care Unavailable Oleghe, Efewongbe Attending Unavailable Oleghe, Efewongbe Referring Unavailable Oleghe, Efewongbe Consulting Unavailable Sherri LAW ENFORCEMENT DIRECTOR, [facility] Primary Care Unavailable Oleghe, Efewongbe Referring Unavailable Oleghe, Efewongbe Attending Unavailable Oleghe, Efewongbe Consulting Unavailable Sherri LAW ENFORCEMENT DIRECTOR, [facility] Primary Care Unavailable Oleghe, Efewongbe Consulting Unavailable Oleghe, Efewongbe Attending Unavailable Oleghe, Efewongbe Referring Unavailable Sherri LAW ENFORCEMENT DIRECTOR, [facility] Primary Care Unavailable Oleghe, Efewongbe Referring Unavailable Oleghe, Efewongbe Attending Unavailable Care Physician, No Primary Referring Unava ilable Sherri LAW ENFORCEMENT DIRECTOR, [facility] Primary Care Unavailable Oleghe, Efewongbe Attending Unavailable Care Physician, No Primary Referring Unava ilable Sherri LAW ENFORCEMENT DIRECTOR, [facility] Primary Care Unavailable Oleghe, Efewongbe Attending Unavailable Sherri LAW ENFORCEMENT DIRECTOR, [facility] Primary Care Unavailable Oleghe, Efewongbe Referring Unavailable Oleghe, Efewongbe Attending Unavailable MaryEnzoGabriel Attending Unavailable Mary Gabriel Referring Unavailable Sherri LAW ENFORCEMENT DIRECTOR, [facility] Primary Care Unavailable Oleghe, Efewongbe Consulting Unavailable Sherri LAW ENFORCEMENT DIRECTOR, [facility] Primary Care Unavailable Oleghe, Efewongbe Attending Unavailable Oleghe, Efewongbe Referring Unavailable Sherri LAW ENFORCEMENT DIRECTOR, [facility] Primary Care Unavailable Oleghe, Efewongbe Attending Unavailable Oleghe, Efewongbe Referring Unavailable Oleghe, Efewongbe Consulting Unavailable Sherri LAW ENFORCEMENT DIRECTOR, Kassie Referring Unavailable Sherri LAW ENFORCEMENT DIRECTOR, [facility] Primary [facility] Unavailable Friend, Mario Attending Unavailable Sherri LAW ENFORCEMENT DIRECTOR, [facility] Primary Care Unavailable Oleghe, Efewongbe Referring Unavailable Oleghe, Efewongbe Attending Unavailable Sherri LAW ENFORCEMENT DIRECTOR, [facility] Primary Care Unavailable Oleghe, Efewongbe Attending Unavailable Oleghe, Efewongbe Referring Unavailable Sherri LAW ENFORCEMENT DIRECTOR, [facility] Primary Care Unavailable Oleghe, Efewongbe Attending Unavailable Oleghe, Efewongbe Referring Unavailable Oleghe, Efewongbe Consulting Unavailable Care Physician, No Primary Referring Unava ilable Sherri LAW ENFORCEMENT DIRECTOR, Kassie Primary Care Unavailable Oleghe, Efewongbe Consulting Unavailable Oleghe, Efewongbe Attending Unavailable Care Physician, No Primary Referring Unava ilable Sherri LAW ENFORCEMENT DIRECTOR, Kassie Primary Care Unavailable Oleghe, Efewongbe Consulting Unavailable Oleghe, Efewongbe Attending Unavailable Sherri LAW ENFORCEMENT DIRECTOR, Kassie Referring Unavailable Sherri LAW ENFORCEMENT DIRECTOR, Kassie Primary Care Unavailable Shell Brewer Attending Unavailable Sherri LAW ENFORCEMENT DIRECTOR, Kassie Primary Care Unavailable Oleghe, Efewongbe Referring Unavailable Oleghe, Efewongbe Attending Unavailable Oleghe, Efewongbe Consulting Unavailable Sherri LAW ENFORCEMENT DIRECTOR, Kassie Primary Care Unavailable Oleghe, Efewongbe Referring Unavailable Oleghe, Efewongbe Attending Unavailable Oleghe, Efewongbe Consulting Unavailable Allergies Allergy Classification Reported Allergen(s) Allergy Type Date of Onset Reaction(s) Facility (20 sources) azithromycin; Translations: [AZITHROMYCIN] Drug Allergy 3 Diarrhea [facility] Repository (2 sources) cephalexin; Translations: [CEPHALEXIN] Drug Allergy 8 [facility] Repository (20 sources) ciprofloxacin; Translations: [CIPROFLOXACIN] Drug Allergy 3 Other: See Comments [facility] Repository (4 sources) AMOXICILLIN-POT CLAVULANATE; Translations: [AMOXICILLIN-POT CLAVULANATE] Propensity to adverse reactions to drug (disorder) 3 Diarrhea [facility] Repository (20 sources) Amoxicillin Drug Allergy 1 [facility] (20 sources) Clavulanate; Translations: [CLAVULANIC ACID] Drug Allergy 9 [facility] (1 source) Albuterol; Translations: [ALBUTEROL] Drug Allergy 3 [facility] Repository (1 source) Amoxicillin / Clavulanate Drug Allergy 9 [facility], [facility].; [facility], [facility]. (1 source) Cephalexin Drug Allergy 9 [facility]. (1 source) Ciprofloxacin Drug Allergy 9 [facility].; [facility]. (1 source) Erythromycin Drug Allergy 9 Diarrhea [facility].; [facility]. (1 source) Z Turner (Renamed from Zithromax Z-Turner *MACROLIDES*) 9 Diarrhea [facility] (1 source) Albuterol Drug Allergy [facility] Repository (1 source) Amoxicillin Drug Allergy [facility] Repository (1 source) Amoxicillin / Clavulanate Drug Allergy [facility] Repository (1 source) Ciprofloxacin Drug Allergy [facility] Repository (1 source) Amoxicillin Drug Allergy 5 [facility] Repository (1 source) Clavulanate Drug Allergy 5 [facility] Repository Medications Current Medications Medication Drug Class(es) [...] 1 (one) daily (81 MG) bacillus coagulans [id number] unt chewable tablet (18 sources) Start: 01-22-2025 [...] keiry th once daily. polyethylene glycol 3350 12813 mg powder for oral solution (20 sources) [...] times daily (500 MG) Status: Inactive Comments: [facility] Comment on above: [facility] codeine phosphate 2 mg/ml / guaiFENesin [...] needed. docusate sodium 50 mg / sennosides, care home 8.6 mg oral tablet (19 sources) Start: [...] 150 MG/ML syringe Discontinued 150 mg IM .[id number] March 19, 2019 12:00am August 21, 2024 4:03pm Start: 03-19-2019 inject 150 mg by int ramuscular injection every three months Medroxyprogesterone Active 150 MG IM .[id number] March 19, 2019 12:00am Depo-Provera 150 MG/ML [...] keiry th once daily. polyethylene glycol 3350 [id number] mg / potassium chloride 2970 mg / sodium bicarbonate 6740 mg / sodium chloride 5860 mg / sodium sulfate 53812 mg powder for oral solution (15 sources) [...] SPRAY, 0.65% (Nasal Solution) ; 1 (one) [place](s) every hour, as needed for 0 days [...] Comment on above: Take 1 tablet by [facility] twice daily. 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 Note for cough: Seen 03/23/2016 at [place] 2016 Unclassified (1 source) [ADDITIONAL REASON] Urinary [...] discharge was 03/14/18. The hospitalization was at [facility]. Note for recheck after being in the hospital: Pt said she is feeling better. Pt is seeing Dr. Mack and Dr. Hernandez. [facility] is seeing pt for P.T. and O.T. [...] gets cathed for urine. Sees urologist at [facility] and would to see about someone in [facility] or [place]. c/o frequent UTI's. 10-10-2017 Unclassified (1 source) [...] transitioning into care from an emergency room ([facility] 04/07/16) and a summary of care was reviewed . Note for Transition into care: . 04-09-2016 Unclassified (1 source) Skin lesion - The skin lesion has been occurring for 1 day. The skin lesion is located on the lower extremity (right foot). 04-07-2016 Unclassified (1 source) !Patient notification of lab results 1 - [facility]. The test(s) that you had done were/was [...] fever. Note for Pyelonephritis: Pt was at [facility] from 05/13/14 to 05/14/14. Pt said [...] to Dr Lynch at (Dr Lynch at [facility]). 02-15-2013 Unclassified (2 sources) Unspecified Diagnosis 02-12-2013 Unclassified (1 source) Abdominal Pain, Female - Note for Abdominal pain: seen at [facility] for abd pain. 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 Had UTI that was treated by [facility] 01-30-13 and wants lab order for recheck [...] types, and no one SOURCE: Urine (Nonspecific) [facility] [address] [place] [address] Hardik Zarate III, M.D. [id number] SEND TO IC YES Normal [facility] Comment on above: Performed By: #### 2 [id number] #### 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 Scanned 1 of [address] [facility] ED NURSES CLINICAL NOTEon ED NURSES CLINICAL NOTE Nurse Narrative - JULIETTE CREWS, : 1975, , Nurse Clinical Narrative [address] [place] [address] [id number] 04/02/2025 19:28:00 Patient: JULIETTE CREWS Sex: Female [...] light pl (more content not included)... Normal [facility] ED ORDER SHEET (CPOE ONLY)on 04-03-2025 ED ORDER SHEET (CPOE ONLY) Order Sheet - JULIETTE CREWS, : 1975, , Order Sheet [address] [address] [id number] 04/02/2025 Patient: JULIETTE CREWS Sex: Female : [...] (04/03/2025 04:14 EDT)] 3 of [address] [facility] ED PHYSICIAN CLINICAL REPORT on 04-03-2025 ED PHYSICIAN CLINICAL REPORT Narrative - JULIETTE CREWS, : 1975, , Physician Clinical Narrative [address] [address] [id number] 04/02/2025 19:28:00 Patient: JULIETTE CREWS Sex: Female [...] uti (cath), will place on abx, patient's animal care attendant checked with patient's mother, bactrim is used to to treat her uti; will place on bactrim for three days, till culture returns, sister/animal care attendant ok with this plan.). CLINICAL IMPRESSION Recurrent [...] days, dispense 20 tablet. Refills 0. Pharmacy: [facility] [phone] [place] [address]. Bactrim DS 800 mg-160 mg tablet: Take 1 tablet by mouth twice a day for 10 days, dispense 20 tablet. Refills 0. Pharmacy: [facility] [id number] [place] [address]. Understanding of the discharge instructions verbalized by family. (Electronically signed by Kilo Benson D.O. 04/03/25 04:14:32 EDT) Generated by [facility] 4 of [address] [facility] ED SUPER BILLon 04-03-2025 ED SUPER BILL [facility] - ALICIA CREWS : 1975, , [address] [place] [address] [id number] 04/02/2025 Patient: JULIETTE CREWS Sex: Female : 1975 Age: 50y Item Facility Profession Category Description Code al Code Quantity Fee Total Nurse/E/M EMERGENCY 696196 1 $0.00 $0.00 DEPARTMEN T VISIT HIGH/URGEN T SEVERITY (16977-65) Grand Total $0.00 Providers Kilo Benson D.O. Chief Complaint HEADACHE. Principal Diagnosis Recurrent migraine headache. labile blood pressure r/o urinary tract infection. 1 of 2 [facility] - JULIETTE CREWS, : 1975, , ICD-10 Codes G43.909: Migraine, unspecified, not intractable, without status migrainosus 2 of 2 [facility] ED VISIT SUMMARYon ED VISIT SUMMARY Visit JULIETTE Lang : 1975, , Visit [address] [address] [id number] 04/02/2025 Patient: JULIETTE CREWS Sex: Female : [...] RECURRENT MIGRAINE HEADACHE 4 of [address] [facility] ED VITALS FLOW SHEETon 04-03 ED VITALS FLOW SHEET Vitals - MIGEL CREWS : 1975, , Vital Sign Flow Sheet [place] [address] [place] [address] [id number] 04/02/2025 Patient: JULIETTE CREWS Sex: Female : [...] F 10 04/02/2025 5 of [address] [facility] URINALYSISon 04-03-2025 Amorphous 1+ Normal [facility] Comment on above: Performed By: #### 2 69645 #### [facility],[address] [place] [address] Bacteria 3+ Normal [facility] Comment on above: Performed By: #### 2 77760 #### [facility],[address] [place] [address] Bilirubin Ql (U) Negative Normal NORMAL: NEGATIVE [facility] Comment on above: Performed By: #### 2 41466 #### [facility],[address] [place] [address] Casts NONE Normal [facility] Comment on above: Performed By: #### 2 28116 #### [facility],[address] [place] [address] Clarity (U) SL. CLOUDY Abnormal NORMAL: CLEAR [facility] Comment on above: Performed By: #### 2 17807 #### [facility],[address] [place] [address] Color (U) YELLOW Normal NORMAL: YELLOW [facility] Comment on above: Performed By: #### 2 90226 #### [facility],[address] [place] [address] Crystals LM Nom (Urine sed) NONE Normal [facility] Comment on above: Performed By: #### 2 03760 #### [facility],[address] [place] [address] Epi Cells OCC Normal [facility] Comment on above: Performed By: #### 2 95465 #### [facility],[address] [place] [address] Glucose Ql (U) NORM Normal NORMAL: NORMAL [facility] Comment on above: Performed By: #### 2 76283 #### [facility],[address] [place], [place] [address] Hemoglobin Ql (U) 25 Abnormal NORMAL: NEGATIVE [facility] Comment on above: Performed By: #### 2 15081 #### [facility],[address] [place], [place] [address] Ketone Negative Normal NORMAL: NEGATIVE [facility] Comment on above: Performed By: #### 2 91220 #### [facility],[address] [place] [address] Leukocytes 500 Abnormal NORMAL: NEGATIVE [facility] Comment on above: Performed By: #### 2 97914 #### [facility],[address] [place] [address] Mucous NONE Normal [facility] Comment on above: Performed By: #### 2 37136 #### [facility],[address] [place] [address] Nitrite Ql (U) Negative Normal NORMAL: NEGATIVE [facility] Comment on above: Performed By: #### 2 93425 #### [facility],[address] [place] [address] pH (U) 7.0 [pH] Normal NORMAL: 5.0-8.[address] [facility] Comment on above: Performed By: #### 2 38755 #### [facility],[address] [place] [address] Protein Ql (U) 15 Abnormal NORMAL: NEGATIVE [facility] Comment on above: Performed By: #### 2 89486 #### [facility],[address] [place] [address] Rbc 5-10 Normal 0-3/hpf [facility] Comment on above: Performed By: #### 2 36779 #### [facility],[address] [place] [address] Sp Randolph 1.010 Normal NORMAL: 1.010-1.[address] [facility] Comment on above: Performed By: #### 2 33093 #### [facility],[address] [place] [address] Specimen Type Catheter Normal [facility] Comment on above: Performed By: #### 2 38055 #### [facility],[address] [place] [address] Urinalysis dipstick W Reflex Microscopic panel (U) SEE BELOW Normal [facility] Comment on above: Result Comment: MICR OSCOPIC Performed By: #### 2 27363 #### [facility],[address] [place] [address] Urobilinog NORMAL Normal NORMAL: NORMAL [facility] Comment on above: Performed By: #### 2 13447 #### [facility],[address] [place] [address] Wbc 26-50 Normal 0-5/hpf [facility] Comment on above: Performed By: #### 2 70832 #### [facility],[address] [place] [address] Yeast NONE Normal [facility] Comment on above: Performed By: #### 2 24174 #### [facility],[address] [place] [address] CBC + DIFFon 04-02-2025 Baso # 0.03 x10EE3/UL Normal 0.00 - 0.[address] [facility] Comment on above: Performed By: #### 2 81249 #### [place] [address] Basophils/100 WBC (Bld) 0.2 % Normal 0.0 - 2.[address] [facility] Comment on above: Performed By: #### 2 56608 #### [facility],[address] [place] [address] CBC + DIFF Normal [facility] Comment on above: Result Comment: CBC- COMPLETE BLOOD COUNT Performed By: #### 2 85392 #### [place] [address] EO # 0.19 x10EE3/UL Normal 0.00 - 0.[address] [facility] Comment on above: Performed By: #### 2 17553 #### [place] [address] Eosinophils/100 WBC (Bld) 1.2 % Normal 0.0 - 7.[address] [facility] Comment on above: Performed By: #### 2 54919 #### [place] [address] Erythrocyte distribution width (RBC) [Ratio] 15.1 % Normal 12.0 - 15.[address] [facility] Comment on above: Performed By: #### 2 58838 #### [place] [address] Hematocrit (Bld) [Volume fraction] 37.1 % Normal 34.0 - 46.[address] [facility] Comment on above: Performed By: #### 2 49429 #### [place] [address] Hemoglobin (Bld) [Mass/Vol] 12.0 g/dL Normal 12.0 - 16.[address] [facility] Comment on above: Performed By: #### 2 78054 #### [facility],[address] [place] [address] Lymph # 1.78 x10EE3/UL Normal 0.80 - 2.80 [facility] Comment on above: Performed By: #### 2 78188 #### [facility],[address] [place] [address] Lymphocytes/100 WBC (Bld) 11.2 % Low 20.0 - 45.[address] [facility] Comment on above: Performed By: #### 2 55372 #### [facility],[address] [place] [address] MANUAL DIFF N/A Normal [facility] Comment on above: Performed By: #### 2 36675 #### [facility],[address] [place] [address] MCH (RBC) [Entitic mass] 27 pg Normal 27 - [address] [facility] Comment on above: Performed By: #### 2 48085 #### [place] [address] MCHC 32 X10 3 Normal 32 - [address] [facility] Comment on above: Performed By: #### 2 84466 #### [place] [address] MCV (RBC) [Entitic vol] 82 fL Normal 80 - [address] [facility] Comment on above: Performed By: #### 2 55120 #### [place] [address] [place] # 0.63 x10EE3/UL Normal 0.20 - 1.[address] [facility] Comment on above: Performed By: #### 2 17830 #### [place] [address] MONOS % 4.0 % Normal 0.0 - 10.[address] [facility] Comment on above: Performed By: #### 2 82719 #### [facility],[address],[place] [address] Morphology Harry (Bld) [Interp] N/A Normal [facility] Comment on above: Performed By: #### 2 95574 #### [facility],[address] [place] [address]655 Neut # 13.27 x10EE3/UL High 1.50 - 7.[address] [facility] Comment on above: Performed By: #### 2 42265 #### [facility],[address] [place] [address] Neutrophils/100 WBC (Bld) 83.5 % High 46.0 - 76.[address] [facility] Comment on above: Performed By: #### 2 04549 #### [facility],[address] [place] [address] PLATELET 555 x10EE3/UL High 150 - [address] [facility] Comment on above: Performed By: #### 2 84554 #### [facility],[address] [place] [address] Platelet mean volume (Bld) [Entitic vol] 7.0 fL Normal 6.6 - 10.[address] [facility] Comment on above: Result Comment: AUTO MATED DIFFERENTIAL Performed By: #### 2 18275 #### [facility],[address] [place], [place] [address] RBC 4.53 x 10EE6/UL Normal 4.10 - 5.[address] [facility] Comment on above: Performed By: #### 2 45973 #### [facility],[address] [place], [place] [address] WBC 15.9 x 10EE3/UL High 4.5 - 10.[address] [facility] Comment on above: Performed By: #### 2 08081 #### [facility],[address] [place] [address] CMP with eGFRon 04-02-2025 AGE 50 years Normal [facility] Comment on above: Performed By: #### 2 65022 #### [facility],[address] [place] [address] 65467 Albumin [Mass/Vol] 3.2 g/dL Low 3.4 - 5.[address] [facility] Comment on above: Performed By: #### 2 56267 #### [facility],[address] [place] [address] 90479 Albumin/Globulin [Mass ratio] 0.7 {ratio} Low 0.9 - 1.[address] [facility] Comment on above: Performed By: #### 2 78873 #### [facility],[address] [place] [address] 93464 ALK PHOS 120 U/L High 46 - [address] [facility] Comment on above: Performed By: #### 2 41114 #### [facility],[address] [place] [address] 29285 ALT [Catalytic activity/Vol] 30 U/L Normal 16 - [address] [facility] Comment on above: Performed By: #### 2 67118 #### [facility],[address] [place] [address] 55466 Anion gap [Moles/Vol] 13 mmol/L Normal 10 - [address] [facility] Comment on above: Performed By: #### 2 32400 #### [facility],[address] [place] [address] 39181 AST [Catalytic activity/Vol] 18 U/L Normal 13 - [address] [facility] Comment on above: Performed By: #### 2 81756 #### [facility],[address] [place] [address] 04030 B/C RATIO 24 ratio Normal 0 - [address] [facility] Comment on above: Performed By: #### 2 37903 #### [facility],[address] [place] [address] 64627 Bilirubin [Mass/Vol] 0.1 mg/dL Low 0.2 - 1.[address] [facility] Comment on above: Performed By: #### 2 94240 #### [facility],[address] [place] [address] 35429 Calcium [Mass/Vol] 9.3 mg/dL Normal 8.5 - 10.[address] [facility] Comment on above: Performed By: #### 2 97648 #### [facility],[address] [place] [address] 45439 Chloride [Moles/Vol] 97 mmol/L Low 98 - [address] [facility] Comment on above: Performed By: #### 2 57737 #### [facility],[address] [place] [address] 26132 CMP with eGFR Normal [facility] Comment on above: Result Comment: COMP REHENSIVE METABOLIC PANEL Performed By: #### 2 45813 #### [facility],[address] [place] [address] 04266 CO2 [Moles/Vol] 29.3 mmol/L Normal 21.0 - 32.[address] [facility] Comment on above: Performed By: #### 2 61590 #### [facility],[address] [place] [address] 06841 Creatinine [Mass/Vol] 0.46 mg/dL Low 0.55 - 1.[address] [facility] Comment on above: Performed By: #### 2 82861 #### [facility],[address] [place] [address] 96943 GFR/1.73 sq M.predicted among non-blacks MDRD (S/P/Bld) [Vol rate/Area] mL/min/{1.73_m2} Normal 60 - [address] [facility] Comment on above: Performed By: #### 2 06207 #### [facility],[address] [place] [address] 623[address] Result Comment: ACCO RDING TO THE NATIONAL KIDNEY DISEASE EDUCATION PROGRAM(NKDE), A NORMAL eGFR IS A VALUE GREATER THAN OR EQUAL TO 60 ML/MIN/1.73 SQ METERS. CHRONIC KIDNEY DISEASE: <60mL/MIN/1.73 SQ METERS KIDNEY FAILURE: <15mL/MIN/1.73 SQ METERS THIS TEST SHOULD ONLY BE USED FOR PATIENTS 18 YEARS OF AGE AND OLDER. Globulin (S) [Mass/Vol] 4.3 g/dL High 1.5 - 3.[address] [facility] Comment on above: Performed By: #### 2 31266 #### [facility],[address] [place] [address] 22899 Glucose [Mass/Vol] 118 mg/dL High 74 - [address] [facility] Comment on above: Performed By: #### 2 66623 #### [facility],[address] [place] [address] 46224 Potassium [Moles/Vol] 3.9 mmol/L Normal 3.5 - 5.[address] [facility] Comment on above: Performed By: #### 2 49525 #### [facility],[address] [place] [address] 10079 Protein [Mass/Vol] 7.5 g/dL Normal 6.4 - 8.[address] [facility] Comment on above: Performed By: #### 2 94552 #### [facility],[address] [place] [address] 18061 Sodium [Moles/Vol] 135 mmol/L Low 136 - [address] [facility] Comment on above: Performed By: #### 2 00422 #### [facility],[address] [place] [address] 40733 Urea nitrogen [Mass/Vol] 11 mg/dL Normal 7 - [address] [facility] Comment on above: Performed By: #### 2 41366 #### [facility],[address] [place] [address] BRAIN W/O CONTRAST 03-07 CT BRAIN W/O CONTRAST [address] ? [place] [address] ? Patient: JULIETTE CREWS Phone#: : 1975 Age: 50 Gender: F Pt. Type: ER Account: [id number] Location: 052 Ordering: DR. KILO BENSON Exam Date: 04/02/2025/21:06 Family Phys: KASSIE POLANCO Charge Code: 491264 Physician: [place] Order #: [id number] Dose#: [id number] PROCEDURE: CT BRAIN WITHOUT CONTRAST COMPARISON: [facility], CT, BRAIN W/O CON, 10/25/2024, 20:55. INDICATIONS: [...] Ledbetter MD on 04/02/2025 at 21:[address] [facility] SEDRATEon 04-02-2025 SEDRATE 53 mm/hr High 0 - [address] [facility] Comment on above: Performed By: #### 2 00332 #### [facility],[address] [place], [place] [address] Gastroenterology Visit Repor ton 01-30-2025 Gastroenterology Visit Report [facility] Gastroenterology [address] [place] [address] OFFICE VISIT Date of Service: 01/30/25 MR#: [id number] Acct: [id number] Name: JULIETTE CREWS RAI Rep #: [id number] : 1975 Provider: ADAN grimes Age/Sex: 49/F [place] [facility] [place] Status: Signed Intake Vital Signs 08/21/24 13:52 01/22/25 10:01 01/30/25 09:14 Height 4 ft 7.9 in 5 ft 5 ft Weight: 135 lb BMI 26.4 BP 120/81 H Respiration 18 Pulse Oximetry (%) 95 Oxygen Delivery Method room air Intake Visit Reasons: Test Result Chief Complaint: constipaiton [employer] Required: No Accompanied by: Caregiver Is patient [...] with her mom, sister and caregiver from [facility]. She has tried and failed multiple OTC [...] to frequent soiling. She resides in a [facility] and they are aware they will need to frequently monitor for soiling. Linzess has an increased risk of juliet rrhea in the first two weeks of treatment. We have discussed importance of daily use and PRN use of laxative while possibly more convenient have shown to be ineffective. Patient Instructions: Start Linzess 290mcg once (more content not included)... Normal [facility] Colonoscopy Reporton 025 Colonoscopy Report [facility] Medical Records Department [address] [place] [address] Colonoscopy Report MR#: [id number] Acct: [id number] Name: JULIETTE CREWS RAI Rep #: [id number] : 1975 49 From: Mario Rai DO PCP: ADAN Joseph Status:REG [facility] [place] Patient Name: Juliette Crews Procedure Date: 01/22/2025 11:23 AM Date of : 1975 Age: 49 Procedure: Colonoscopy Indications: Screening for colorectal malignant neoplasm Providers: Mario aRi DO Referring MD: Adan Joseph Medicines: Monitored [...] for surveillance. Procedure Code(s): --- Professional --- 64910, Colonoscopy, flexible; diagnostic, including collection of specimen(s) by brushing or washing, when performed (separate procedure) CPT copyright 2021 [employer]. All rights reserved. The codes documented in this report are preliminary and upon clinical coder review may be revised to meet current compliance requirements. Mario Rai DO 01/22/2025 12:48:14 PM This report has been signed electronically. Number of Addenda: 0 Note Initiated On: 01/22/2025 11:23 AM 01/22/25 1248 Date Mario Rai DO Cosigner Signature: Date (if indicated) CC: ADAN Polanco; Mario Rai DO Date Dictated: 01/22/25 1123 Date Transcribed: Percussion Instrument Tuner: GRANT Signed [facility] Medical Records Department [address] [place] [address] Provation Physician Letter MR#: [id number] Acct: [id number] Name: JULIETTE CREWS RAI Rep #: [id number] : 1975 49 From: Mario Rai DO PCP: ADAN Joseph Status:REG [facility] [place] 01/22/2025 Adan Joseph Re : Colonoscopy procedure [...] Mario Iverson Signature: Date (if indicated) CC: LAW ENFORCEMENT DIRECTOR-C Kassie Polanco; Mario Rai DO Date Dictated: 01/22/25 1123 Date Transcribed: Percussion Instrument Tuner: GRANT Signed [facility] MR/POSTOP.[facility] 01-22-2025 MR/POSTOP.[facility] Medical Records Department [address] [place] [address] Anesthesia Postop Eval I 01/22/25 1251 MR#: [id number] Acct: [id number] Name: JULIETTE CREWS RAI Rep #: [id number] : 1975 49 From: Rex Martinez PCP: ADAN Joseph Status:REG SD Y Race: C Location: [place] [address] Anesthesia: Postop Eval I Current Vital Signs [...] Rex Palma Signature: Date CC: Signed Normal [facility] MR/[id number] 01-22-2025 MR/POSTOPAN2 [facility] Medical Records Department [address] [place] [address] Anesthesia Postop Eval II 01/22/25 1431 MR#: [id number] Acct: [id number] Name: JULIETTE CREWS RAI Rep #: [id number] : 1975 49 From: Kaiser Rowland MD PCP: Kassie Polanco NP-C Status:DEP [facility] [place] Y Race: C Location: EN Anesthesia Postop [...] MD Cosigner Signature: Date CC: Signed Normal [facility] Abdomen/Pelvis without Conto n 01-15-2025 Abdomen/Pelvis without Cont [facility] Imaging Services [address] [place] [address] Abdomen/Pelvis without Cont MR#: [id number] Acct: [id number] Name: JULIETTE CREWS RAI Rep #: [id number] : 1975 F 49 From: Peter Newman MD PCP: Kassie Polanco NP-C Status: REG CLI Study: Abdomen/Pelvis without Cont Date of Exam: 01/04 07/31 Exam# [id number] Ordering Dr: Enzo Hernandez MD PROCEDURE: ABDOMEN/PELVIS [...] etiology. No free air. Distal end of EMERGENCY SPILL RESPONSE TECHNICIAN shunt tip terminates in the peritoneal cavity. Nonobstructed bowel.. Status post appendectomy. No acute large bowel findings. Extensive thoracic lumbar scoliosis status post spinal rhonda placement. Muscle wasting. Bilateral hip joint deformity. Sacral hypoplasia. CT/Abdomen/Pelvis without Cont IMPRESSION: No acute abdominopelvic findings. Reading Location: [place] [address] CC: ADAN Polanco; Dr. Enzo Hernandez MD Percussion Instrument Tuner: Signed Normal [facility] Culture, Anaerobic Any Sourc forrest 01-08-2025 CUAN List Antibiotics [place] t 48 Hours? none List Antibiotics to be Started? doxycine, ceftiner No growth in 5 days. Normal [facility] Comment on above: Performed By: #### M 100.2000, M100.4001, M100.3000 #### [facility] Laboratory [address] [facility] [place], [address] Wound Cultureon 01-05-2025 WC List Antibiotics Las t 48 Hours? none List Antibiotics to be Started? doxycine, ceftiner No growth aerobically. Normal [facility] Comment on above: Performed By: #### M 100.2000, M100.4001, M100.3000 #### [facility] [address] [facility] [place], [address] Anaerobic cultureOrdered By: Savannah Kinney on 01-03-2025 Bacteria identified Anaer cx Nom (Unsp spec) No growth in 5 days. [facility] Gram Stainon 01-03-2025 GS List Antibiotics Las t 48 Hours? none List Antibiotics to be Started? doxycine, ceftiner Gram Stain No organisms seen No cells seen Normal [facility] Comment on above: Performed By: #### M 100.2000, M100.4001, M100.3000 #### [facility] [address] [facility] [place], [address] Gram stainOrdered By: Germania Kinney on 01-03-2025 Microscopic observation Gram stain Nom (Unsp spec) [facility] Wound Ctr History AND Physic nitza 01-03-2025 Wound Ctr History & Physical [facility] [address] [place] [address] H P Exam - Wound Care 01/03/25 0925 MR#: [id number] Acct: [id number] Name: ELEONORAJULIETTE RAI Rep #: [id number] : 1975 49 From: Savannah Kinney MD [...] or feeling of unwell. Appetite is good. [facility] Medical History Decubitus ulcer of right buttock, [...] mineral oil (Fleet Mineral Oil 118 ml AL .QTUFR 08/21/24 Unknown History enema) mupirocin calcium [...] during activity (more content not included)... Normal [facility] CBC + DIFFon 12-14-2024 Baso # 0.01 x10EE3/UL Normal 0.00 - 0.[address] [facility] Comment on above: Performed By: #### 2 02817 #### [facility],[address] [place] [address] Basophils/100 WBC (Bld) 0.1 % Normal 0.0 - 2.[address] [facility] Comment on above: Performed By: #### 2 97952 #### [facility],[address] [place] [address] CBC + DIFF Normal [facility] Comment on above: Result Comment: CBC- COMPLETE BLOOD COUNT Performed By: #### 2 48106 #### [facility],[address] [place] [address] EO # 0.27 x10EE3/UL Normal 0.00 - 0.[address] [facility] Comment on above: Performed By: #### 2 55051 #### [facility],[address] [place] [address] 11434 Eosinophils/100 WBC (Bld) 2.6 % Normal 0.0 - 7.[address] [facility] Comment on above: Performed By: #### 2 62741 #### [facility],[address] [place] [address] 52322 Erythrocyte distribution width (RBC) [Ratio] 17.7 % High 12.0 - 15.[address] [facility] Comment on above: Performed By: #### 2 65522 #### [facility],[address] [place] [address] Hematocrit (Bld) [Volume fraction] 31.6 % Low 34.0 - 46.[address] [facility] Comment on above: Performed By: #### 2 97397 #### [facility],[address] [place] [address] Hemoglobin (Bld) [Mass/Vol] 10.8 g/dL Low 12.0 - 16.[address] [facility] Comment on above: Performed By: #### 2 23678 #### [facility],[address] [place] [address] Lymph # 2.61 x10EE3/UL Normal 0.80 - 2.[address] [facility] Comment on above: Performed By: #### 2 27922 #### [facility],[address] [place], [place] [address] Lymphocytes/100 WBC (Bld) 25.5 % Normal 20.0 - 45.[address] [facility] Comment on above: Performed By: #### 2 47783 #### [facility],[address] [place], [place] [address] MANUAL DIFF N/A Normal [facility] Comment on above: Performed By: #### 2 19705 #### [facility],[address] [place] [address] 27778 MCH (RBC) [Entitic mass] 28 pg Normal 27 - [address] [facility] Comment on above: Performed By: #### 2 02156 #### [facility],[address] [place] [address] 37053 MCHC 34 X10 3 Normal 32 - [address] [facility] Comment on above: Performed By: #### 2 82041 #### [facility],[address] [place] [address] 24899 MCV (RBC) [Entitic vol] 81 fL Normal 80 - [address] [facility] Comment on above: Performed By: #### 2 75870 #### [facility],[address] [place] [address] 95820 [place] # 0.48 x10EE3/UL Normal 0.20 - 1.[address] [facility] Comment on above: Performed By: #### 2 61794 #### [facility],[address] [place] [address] 05130 MONOS % 4.7 % Normal 0.0 - 10.[address] [facility] Comment on above: Performed By: #### 2 24991 #### [facility],[address] [place] [address] 87114 Morphology Harry (Bld) [Interp] N/A Normal [facility] Comment on above: Performed By: #### 2 01653 #### [facility],[address] [place] [address] 51764 Neut # 6.86 x10EE3/UL Normal 1.50 - 7.[address] [facility] Comment on above: Performed By: #### 2 70084 #### [facility],[address] [place] [address] 25861 Neutrophils/100 WBC (Bld) 67.1 % Normal 46.0 - 76.[address] [facility] Comment on above: Performed By: #### 2 35216 #### [facility],[address] [place] [address] 06055 PLATELET 427 x10EE3/UL Normal 150 - [address] [facility] Comment on above: Performed By: #### 2 92831 #### [facility],[address] [place] [address] 40049 Platelet mean volume (Bld) [Entitic vol] 7.3 fL Normal 6.6 - 10.[address] [facility] Comment on above: Result Comment: AUTO MATED DIFFERENTIAL Performed By: #### 2 31340 #### [facility],[address] [place] [address] RBC 3.90 x 10EE6/UL Low 4.10 - 5.[address] [facility] Comment on above: Performed By: #### 2 84471 #### [facility],[address] [place] [address] WBC 10.2 x 10EE3/UL Normal 4.5 - 10.[address] [facility] Comment on above: Performed By: #### 2 55741 #### [facility],[address] [place] [address] CMP with eGFRon 12-14-2024 AGE 49 years Normal [facility] Comment on above: Performed By: #### 2 99765 #### [facility],[address] [place] [address] Albumin [Mass/Vol] 3.1 g/dL Low 3.4 - 5.[address] [facility] Comment on above: Performed By: #### 2 49144 #### [facility],[address] [place] [address] Albumin/Globulin [Mass ratio] 0.7 {ratio} Low 0.9 - 1.[address] [facility] Comment on above: Performed By: #### 2 10447 #### [facility],[address] [place], [place] [address] ALK PHOS 120 U/L High 46 - [address] [facility] Comment on above: Performed By: #### 2 09145 #### [facility],[address] [place] [address] 90702 ALT [Catalytic activity/Vol] 23 U/L Normal 16 - [address] [facility] Comment on above: Performed By: #### 2 28720 #### [facility],[address] [place], [place] [address] Anion gap [Moles/Vol] 14 mmol/L Normal 10 - [address] [facility] Comment on above: Performed By: #### 2 22343 #### [facility],[address] [place] [address] AST [Catalytic activity/Vol] 10 U/L Low 13 - [address] [facility] Comment on above: Performed By: #### 2 18223 #### [facility],[address] [place] [address] B/C RATIO 64 ratio High 0 - [address] [facility] Comment on above: Performed By: #### 2 02149 #### [facility],[address] [place] [address] Bilirubin [Mass/Vol] 0.1 mg/dL Low 0.2 - 1.[address] [facility] Comment on above: Performed By: #### 2 21628 #### [facility],[address] [place] [address] Calcium [Mass/Vol] 9.2 mg/dL Normal 8.5 - 10.[address] [facility] Comment on above: Performed By: #### 2 29209 #### [facility],[address] [place] [address] Chloride [Moles/Vol] 100 mmol/L Normal 98 - [address] [facility] Comment on above: Performed By: #### 2 62828 #### [facility],[address] [place] [address] 24678 CMP with eGFR Normal [facility] Comment on above: Result Comment: COMP REHENSIVE METABOLIC PANEL Performed By: #### 2 77583 #### [facility],[address] [place] [address] 36402 CO2 [Moles/Vol] 28.8 mmol/L Normal 21.0 - 32.[address] [facility] Comment on above: Performed By: #### 2 22000 #### [facility] [facility],[address] [place] [address] Creatinine [Mass/Vol] 0.42 mg/dL Low 0.55 - 1.[address] [facility] Comment on above: Performed By: #### 2 91762 #### [facility],[address] [place] [address] GFR/1.73 sq M.predicted among non-blacks MDRD (S/P/Bld) [Vol rate/Area] mL/min/{1.73_m2} Normal 60 - [address] [facility] Comment on above: Performed By: #### 2 61888 #### [facility],[address] [place] [address] Result Comment: ACCO RDING TO THE NATIONAL KIDNEY DISEASE EDUCATION PROGRAM(NKDE), A NORMAL eGFR IS A VALUE GREATER THAN OR EQUAL TO 60 ML/MIN/1.73 SQ METERS. CHRONIC KIDNEY DISEASE: <60mL/MIN/1.73 SQ METERS KIDNEY FAILURE: <15mL/MIN/1.73 SQ METERS THIS TEST SHOULD ONLY BE USED FOR PATIENTS 18 YEARS OF AGE AND OLDER. Globulin (S) [Mass/Vol] 4.6 g/dL High 1.5 - 3.[address] [facility] Comment on above: Performed By: #### 2 01099 #### [facility],[address] [place], [place] [address] Glucose [Mass/Vol] 88 mg/dL Normal 74 - [address] [facility] Comment on above: Performed By: #### 2 07072 #### [facility],[address] [place] [address] 01166 Potassium [Moles/Vol] 4.3 mmol/L Normal 3.5 - 5.[address] [facility] Comment on above: Performed By: #### 2 97427 #### [facility],[address] [place], [place] [address] Protein [Mass/Vol] 7.7 g/dL Normal 6.4 - 8.[address] [facility] Comment on above: Performed By: #### 2 36970 #### [facility],[address] [place] [address] 59265 Sodium [Moles/Vol] 138 mmol/L Normal 136 - [address] [facility] Comment on above: Performed By: #### 2 17327 #### [facility],[address] [place] [address] 63730 Urea nitrogen [Mass/Vol] 27 mg/dL High 7 - [address] [facility] Comment on above: Performed By: #### 2 76182 #### [facility],[address] [place] [address] 52214 LIPID PROFILEon 12-14-2024 Cholesterol [Mass/Vol] 163 mg/dL Normal 0 - [address] [facility] Comment on above: Performed By: #### 2 05662 #### [facility],[address] [place] [address] 50650 Cholesterol in HDL [Mass/Vol] 55 mg/dL Normal 40 - [address] [facility] Comment on above: Performed By: #### 2 89536 #### [facility],[address] [place] [address] 28299 Cholesterol in LDL [Mass/Vol] 97 mg/dL Normal 0 - [address] [facility] Comment on above: Performed By: #### 2 82086 #### [facility],[address] [place] [address] 69832 Cholesterol.total/Ch olesterol in HDL [Mass ratio] 3.0 {ratio} Normal 0.0 - 5.[address] [facility] Comment on above: Performed By: #### 2 66008 #### [facility],[address] [place] [address] 18185 Lipid 1996 panel Normal [facility] Comment on above: Result Comment: LIPI D PROFILE Performed By: #### 2 44228 #### [facility],[address] [place] [address] 54627 Triglyceride [Mass/Vol] 55 mg/dL Normal 0 - [address] [facility] Comment on above: Performed By: #### 2 22383 #### [facility],[address] [facility] [address] Wound Ctr History AND Physic nitza 11-29-2024 Wound Ctr History & Physical [facility] [address] [place] [address] H P Exam - Wound Care 11/29/24 1637 MR#: [id number] Acct: [id number] Name: JULIETTE CREWS RAI Rep #: [id number] : 1975 49 From: Brett Vincent MD [...] and paraplegia. She currently resides in a [facility]. Her family noted bleeding on her underwear [...] for fecal contamination. She feels well otherwise. [facility] Medical History Decubitus ulcer of right buttock, [...] mineral oil (Fleet Mineral Oil 118 ml AL .QTUFR 08/21/24 Unknown History enema) mupirocin calcium [...] 10:50 Temp (more content not included)... Normal [facility] Culture, Anaerobic Any Sourc forrest 11-28-2024 CUAN [...] to Clindamycin Cutibacterium granulosum Anaerobic cocci Normal [facility] Comment on above: Performed By: #### M 100.2000, M100.4001, M100.3000 #### [facility] Laboratory [address] [place], [address] Wound Cultureon 11-25-2024 List Antibiotics [...] SYN-S S Vancomycin Islt KELSEY 1 Normal [facility] Comment on above: Performed By: #### M 100.2000, M100.4001, M100.3000 #### [facility] [address], [place], [id number] Gram Stainon 11-23-2024 GS List Antibiotics Las t 48 Hours? none List Antibiotics to be Started? none Gram Stain No organisms seen No cells seen Normal [facility] Comment on above: Performed By: #### M 100.2000, M100.4001, M100.3000 #### [facility] [address], [place], [address] Anaerobic cultureOrdered By: Savannah Kinney on 11-22-2024 Bacteria identified Anaer cx Nom (Unsp spec) Cutibacterium granulosum Abnormal [facility] Bacteria identified Anaer cx Nom (Unsp spec) Anaerobic cocci Abnormal [facility] Gram stainOrdered By: Germania Kinney on 11-22-2024 Microscopic observation Gram stain Nom (Unsp spec) [facility] Wound Ctr History AND Physic nitza 11-22-2024 Wound Ctr History & Physical [facility] [address] [place] [address] H P Exam - Wound Care 11/22/24 1355 MR#: [id number] Acct: [id number] Name: JULIETTE CREWS RAI Rep #: [id number] : 1975 49 From: Savannah Kinney MD [...] concern for fecal contamination. Feels well otherwise. [facility] Medical History (Updated 11/22/24 @ 20:49 by [...] mineral oil (Fleet Mineral Oil 118 ml AL .QTUFR 08/21/24 Unknown History enema) mupirocin calcium [...] extremities Respi (more content not included)... Normal [facility] ED MED ADMINISTRATION DETAIL on 10-30-2024 ED MED ADMINISTRATION DETAIL Commercial Management Accountant Medication Administration Record [address] [place] [address] [id number] 10/25/2024 Patient: JULIETTE CREWS Sex: Female : [...] Ro Saini R.N. 1 of [address] [facility] ED NURSES CLINICAL NOTEon ED NURSES CLINICAL NOTE Nurse Narrative Nurse Clinical Narrative [facility] [address] [facility] [place] [address] [id number] 10/25/2024 19:31:00 Patient: JULIETTE CREWS Sex: Female : 1975 Age: 49y Disposition: Discharge to Care Home Disposition Decision Time: 00:46 10/26/2024 Departure Time: [...] #1 st (more content not included)... Normal [facility] ED ORDER SHEET (CPOE ONLY)on 10-30-2024 ED ORDER SHEET (CPOE ONLY) Order Sheet Order Sheet [address] [place] [address] [id number] 10/25/2024 Patient: JULIETTE CREWS Sex: Female : [...] minutes Ivanna Odom Alisha Whytsell, R.N. R.N. Radiation Protection Technician 20:10 10/25/2024 20:24 10/25/2024 20:29 10/25/2024 Ivanna Odom Alisha Whytsell, R.N. R.N. Oxygen titrate to 92% 20:10 10/25/2024 20:23 10/25/2024 20:24 10/25/2024 Ivanna Odom R.N. Alex Mast, R.N. [Electronically signed by Viktor Foy D.O. (10/26/2024 02:26 EDT)] 3 of [address] [facility] ED PHYSICIAN CLINICAL REPORT on 10-30-2024 ED PHYSICIAN CLINICAL REPORT Narrative Physician Clinical [address] [address] [id number] 10/25/2024 19:31:00 Patient: JULIETTE CREWS Sex: Female : 1975 Age: 49y Disposition: Discharge to Care Home Disposition Decision Time: 00:46 10/26/2024 Departure Time: [...] Comments 10/25/2024 (more content not included)... Normal [facility] ED SUPER BILLon 10-30-2024 ED SUPER BILL [address] [address] [id number] 10/25/2024 Patient: JULIETTE CREWS Sex: Female : 1975 Age: 49y Facility Professional Category Item Description Code Code Quantity Fee Total Nurse/E/M EMERGENCY 670055 1 $0.00 $0.00 DEPT VISIT HIGH SEVERITYFUNCJ (77999-37) Nurse/IV/IM/Infusions IVP initial (62861) [id number] 1 $0.00 $0.00 Grand $0.00 Total Providers Viktor Foy D.O. Chief Complaint HEADACHE. Principal Diagnosis Hypertensive headache Essential hypertension. 1 of 2 [facility] ICD-10 Codes I10: Essential (primary) hypertension R51.9: Headache, unspecified I10: Essential (primary) hypertension 2 of [address] [facility] ED VISIT SUMMARYon ED VISIT SUMMARY Visit Overview Visit Overview [address] [address] [id number] 10/25/2024 Patient: JULIETTE CREWS Sex: Female : [...] HYPERTENSION HYPERTENSIVE HEADACHE 4 of [address] [facility] ED VITALS FLOW SHEETon 10-30 ED VITALS FLOW SHEET Vitals Vital Sign Flow Sheet [facility] [address] [facility] [place] [address] [id number] 10/25/2024 Patient: JULIETTE CREWS Sex: Female : [...] of 4 Vitals 4 of [address] [facility] C-REACTIVE PROTEINon 025 CRP 0.98 mg/dl High 0.00 - 0.[address] [facility] Comment on above: Performed By: #### 2 32145 #### [facility],[address] [place] [address] CBC + DIFFon 10-25-2024 Baso # 0.02 x10EE3/UL Normal 0.00 - 0.[address] [facility] Comment on above: Performed By: #### 2 71146 #### [facility],[address] [place] [address] Basophils/100 WBC (Bld) 0.1 % Normal 0.0 - 2.[address] [facility] Comment on above: Performed By: #### 2 87107 #### [facility],[address] [place] [address] 75447 CBC + DIFF Normal [facility] Comment on above: Result Comment: CBC- COMPLETE BLOOD COUNT Performed By: #### 2 48775 #### [facility],[address] [place] [address] 89486 EO # 0.45 x10EE3/UL Normal 0.00 - 0.[address] [facility] Comment on above: Performed By: #### 2 40972 #### [facility],[address] [place] [address] 73820 Eosinophils/100 WBC (Bld) 3.0 % Normal 0.0 - 7.[address] [facility] Comment on above: Performed By: #### 2 17070 #### [facility],[address] [place], [place] [address] Erythrocyte distribution width (RBC) [Ratio] 16.5 % High 12.0 - 15.[address] [facility] Comment on above: Performed By: #### 2 79527 #### [facility],[address] [place] [address] 75306 Hematocrit (Bld) [Volume fraction] 34.3 % Normal 34.0 - 46.[address] [facility] Comment on above: Performed By: #### 2 64122 #### [facility],[address] [place] [address] 83149 Hemoglobin (Bld) [Mass/Vol] 11.6 g/dL Low 12.0 - 16.[address] [facility] Comment on above: Performed By: #### 2 18086 #### [facility],[address] [place] [address] 92024 Lymph # 3.09 x10EE3/UL High 0.80 - 2.[address] [facility] Comment on above: Performed By: #### 2 77311 #### [facility],[address] [place] [address] 73270 Lymphocytes/100 WBC (Bld) 21.0 % Normal 20.0 - 45.[address] [facility] Comment on above: Performed By: #### 2 69808 #### [facility],[address] [place] [address] MANUAL DIFF N/A Normal [facility] Comment on above: Performed By: #### 2 39478 #### [facility],[address] [place] [address] MCH (RBC) [Entitic mass] 28 pg Normal 27 - [address] [facility] Comment on above: Performed By: #### 2 59025 #### [facility],[address] [place] [address] MCHC 34 X10 3 Normal 32 - [address] [facility] Comment on above: Performed By: #### 2 56148 #### [facility],[address] [place] [address] MCV (RBC) [Entitic vol] 82 fL Normal 80 - [address] [facility] Comment on above: Performed By: #### 2 61970 #### [facility],[address] [place] [address] Saguache # 0.88 x10EE3/UL Normal 0.20 - 1.[address] [facility] Comment on above: Performed By: #### 2 85272 #### [facility],[address] [place] [address] MONOS % 6.0 % Normal 0.0 - 10.[address] [facility] Comment on above: Performed By: #### 2 73252 #### [facility],[address] [place], [place] [address] Morphology Harry (Bld) [Interp] N/A Normal [facility] Comment on above: Performed By: #### 2 69947 #### [facility],[address] [place] [address] Neut # 10.30 x10EE3/UL High 1.50 - 7.[address] [facility] Comment on above: Performed By: #### 2 34237 #### [facility],[address] [place] [address] 13887 Neutrophils/100 WBC (Bld) 69.9 % Normal 46.0 - 76.[address] [facility] Comment on above: Performed By: #### 2 69770 #### [facility],[address] [place] [address] 04588 PLATELET 488 x10EE3/UL High 150 - [address] [facility] Comment on above: Performed By: #### 2 51042 #### [facility],[address] [place] [address] 66543 Platelet mean volume (Bld) [Entitic vol] 7.1 fL Normal 6.6 - 10.[address] [facility] Comment on above: Result Comment: AUTO MATED DIFFERENTIAL Performed By: #### 2 76767 #### [facility],[address] [place] [address] 12211 RBC 4.17 x 10EE6/UL Normal 4.10 - 5.[address] [facility] Comment on above: Performed By: #### 2 85443 #### [facility],[address] [place] [address] 17738 WBC 14.7 x 10EE3/UL High 4.5 - 10.[address] [facility] Comment on above: Performed By: #### 2 30280 #### [facility],[address] [place] [address] 36664 CMP with eGFRon 10-25-2024 AGE 49 years Normal [facility] Comment on above: Performed By: #### 2 20436 #### [facility],[address] [place] [address] 84447 Albumin [Mass/Vol] 3.1 g/dL Low 3.4 - 5.[address] [facility] Comment on above: Performed By: #### 2 43510 #### [facility],[address] [place] [address] 91570 Albumin/Globulin [Mass ratio] 0.7 {ratio} Low 0.9 - 1.[address] [facility] Comment on above: Performed By: #### 2 89818 #### [facility],[address] [place] [address] 24989 ALK PHOS 133 U/L High 46 - [address] [facility] Comment on above: Performed By: #### 2 99842 #### [facility],[address] [place] [address] 08163 ALT [Catalytic activity/Vol] 25 U/L Normal 16 - [address] [facility] Comment on above: Performed By: #### 2 42259 #### [facility],[address] [place] [address] 10369 Anion gap [Moles/Vol] 8 mmol/L Low 10 - [address] [facility] Comment on above: Performed By: #### 2 84563 #### [facility],[address] [place] [address] 14225 AST [Catalytic activity/Vol] 11 U/L Low 13 - [address] [facility] Comment on above: Performed By: #### 2 22285 #### [facility],[address] [place] [address] 86028 B/C RATIO 24 ratio Normal 0 - [address] [facility] Comment on above: Performed By: #### 2 19569 #### [facility],[address] [place] [address] 34900 Bilirubin [Mass/Vol] 0.1 mg/dL Low 0.2 - 1.[address] [facility] Comment on above: Performed By: #### 2 65156 #### [facility],[address] [place] [address] 97968 Calcium [Mass/Vol] 8.9 mg/dL Normal 8.5 - 10.[address] [facility] Comment on above: Performed By: #### 2 69843 #### [facility],[address] [place] [address] 44497 Chloride [Moles/Vol] 100 mmol/L Normal 98 - [address] [facility] Comment on above: Performed By: #### 2 17467 #### [facility],[address] [place], [place] [address] CMP with eGFR Normal [facility] Comment on above: Result Comment: COMP REHENSIVE METABOLIC PANEL Performed By: #### 2 29370 #### [facility],[address] [place], [place] [address] CO2 [Moles/Vol] 32.8 mmol/L High 21.0 - 32.[address] [facility] Comment on above: Performed By: #### 2 89492 #### [facility],[address] [place] [address] Creatinine [Mass/Vol] 0.58 mg/dL Normal 0.55 - 1.[address] [facility] Comment on above: Performed By: #### 2 64342 #### [facility],[address] [place] [address] GFR/1.73 sq M.predicted among non-blacks MDRD (S/P/Bld) [Vol rate/Area] mL/min/{1.73_m2} Normal 60 - [address] [facility] Comment on above: Performed By: #### 2 13787 #### [facility],[address] [place] [address] Result Comment: ACCO RDING TO THE NATIONAL KIDNEY DISEASE EDUCATION PROGRAM(NKDE), A NORMAL eGFR IS A VALUE GREATER THAN OR EQUAL TO 60 ML/MIN/1.73 SQ METERS. CHRONIC KIDNEY DISEASE: <60mL/MIN/1.73 SQ METERS KIDNEY FAILURE: <15mL/MIN/1.73 SQ METERS THIS TEST SHOULD ONLY BE USED FOR PATIENTS 18 YEARS OF AGE AND OLDER. Globulin (S) [Mass/Vol] 4.6 g/dL High 1.5 - 3.[address] [facility] Comment on above: Performed By: #### 2 49437 #### [facility],[address] [place], [place] [address] Glucose [Mass/Vol] 84 mg/dL Normal 74 - [address] [facility] Comment on above: Performed By: #### 2 17558 #### [facility],[address] [place] [address] 88151 Potassium [Moles/Vol] 4.0 mmol/L Normal 3.5 - 5.[address] [facility] Comment on above: Performed By: #### 2 26333 #### [facility],[address] [place] [address] 59339 Protein [Mass/Vol] 7.7 g/dL Normal 6.4 - 8.[address] [facility] Comment on above: Performed By: #### 2 89764 #### [facility],[address] [place] [address] Sodium [Moles/Vol] 137 mmol/L Normal 136 - [address] [facility] Comment on above: Performed By: #### 2 06903 #### [facility],[address] [place] [address] Urea nitrogen [Mass/Vol] 14 mg/dL Normal 7 - [address] [facility] Comment on above: Performed By: #### 2 92079 #### [facility],[address] [place] [address] CORONAVIRUS (SARS) ANTIGEN T ESTon 10-25-2024 EXTERNAL QC DONE? YES Normal [facility] Comment on above: Performed By: #### 2 80196 #### [facility],[address] [place] [address] INTERNAL CONTROL PASS Normal [facility] Comment on above: Performed By: #### 2 78749 #### [facility],[address] [place] [address] 54884 SARS ANTIGEN Negative Normal NORMAL: NEGATIVE [facility] Comment on above: Performed By: #### 2 06203 #### [facility],[address] [place], [place] [address] SEND TO ? NO Normal [facility] Comment on above: Result Comment: SARS -CoV-2 THIS TEST IS BEING USED UNDER THE FDA EUA PROCEDURE. THIS ASSAY HAS BEEN VALIDATED AT [facility] FOR USE WITH NASAL AND NASOPHARYNGEAL SWAB SPECIMENS. INTERPRETIVE DATA TEST RESULTS SHOULD ALWAYS BE CONSIDERED IN THE CONTEXT OF CLINICAL OBSERVATIONS AND EPIDEMIOLOGICAL DATA IN MAKING FINAL DIAGNOSIS AND PATIENT MANAGEMENT DECISIONS. PATIENT MANAGEMENT SHOULD FOLLOW CURRENT CDC GUIDELINES. THE RODY SARS ANTIGEN ROBERT DOES NOT DIFFERENTIATE BETWEEN [...] PUBLIC HEALTH AUTHORITIES. Performed By: #### 2 42891 #### [facility],[address] [place] [address] CT BRAIN W/O CONTRAST 10-05 CT BRAIN W/O CONTRAST [place] [address] Patient: JULIETTE CREWS Phone#: : 1975 Age: 49 Gender: F Pt. Type: ER Account: [id number] Location: 052 Ordering: VIKTOR FOY Exam Date: 10/25/2024/20:55 Family Phys: KASSIE POLANCO Charge Code: 669843 Physician: [place] Order #: [id number] Dose#: [id number] PROCEDURE: CT BRAIN WITHOUT CONTRAST COMPARISON: [facility], CT, BRAIN W W/O CON, 08/03/2023, 10:18. [...] 49 Gender: F Pt. Type: ER Account: [id number] Location: 052 Ordering: VIKTOR FOY Exam Date: 10/25/2024/20:55 Family Phys: KASSIE POLANCO Charge Code: [id number] Physician: [place] Order #: [id number] Dose#: [id number] Approved by: Millicent Torres MD on 10/25/2024 at 21:[address] [facility] INFLUENZA VIRUS RAPID A/Bon 10-25-2024 INFLUENZA VIRUS [...] TO THREE DAYS. RESULT CRITICAL? NO Normal [facility] Comment on above: Performed By: #### 2 70629 #### [facility],[address] [place] [address] SERUM QUALon 10-25 EXTERNAL QC DONE? YES Normal [facility] Comment on above: Performed By: #### 2 80180 #### [facility],[address] [place] [address] INTERNAL QC PASS Normal [facility] Comment on above: Performed By: #### 2 28230 #### [facility],[address] [place] [address] SER Negative Normal NEGATIVE [facility] Comment on above: Performed By: #### 2 14672 #### [facility],[address] [place] [address] TROPONINon 10-25-2024 HS TROPONIN 5.6 pg/mL Normal 0.0 - 51.[address] [facility] Comment on above: Performed By: #### 2 93677 #### [facility],[address] [place] [address] URINALYSISon 10-25-2024 Amorphous NONE Normal [facility] Comment on above: Performed By: #### 2 19076 #### [facility],[address] [place] [address] Bacteria NONE Normal [facility] Comment on above: Performed By: #### 2 93382 #### [facility],[address] [place] [address] 53105 Bilirubin Ql (U) Negative Normal NORMAL: NEGATIVE [facility] Comment on above: Performed By: #### 2 61594 #### [facility],[address] [place] [address] 26116 Casts NONE Normal [facility] Comment on above: Performed By: #### 2 48534 #### [facility],[address] [place] [address] 74798 Clarity (U) clear Normal NORMAL: CLEAR [facility] Comment on above: Performed By: #### 2 78834 #### [facility],[address] [place] [address] 37718 Color (U) p.yel Normal NORMAL: YELLOW [facility] Comment on above: Performed By: #### 2 22196 #### [facility],[address] [place] [address] 74955 Crystals LM Nom (Urine sed) NONE Normal [facility] Comment on above: Performed By: #### 2 12229 #### [facility],[address] [place] [address] 06879 Epi Cells NONE Normal [facility] Comment on above: Performed By: #### 2 46707 #### [facility],[address] [place] [address] 58645 Glucose Ql (U) NORM Normal NORMAL: NORMAL [facility] Comment on above: Performed By: #### 2 60450 #### [facility],[address] [place] [address] 76768 Hemoglobin Ql (U) 10 Abnormal NORMAL: NEGATIVE [facility] Comment on above: Performed By: #### 2 57909 #### [facility],[address] [place] [address] 68743 Ketone Negative Normal NORMAL: NEGATIVE [facility] Comment on above: Performed By: #### 2 54311 #### [facility],[address] [place] [address] 60683 Leukocytes 25 Abnormal NORMAL: NEGATIVE [facility] Comment on above: Performed By: #### 2 71578 #### [facility],[address] [place] [address] 38961 Mucous NONE Normal [facility] Comment on above: Performed By: #### 2 96569 #### [facility],[address] [place] [address] Nitrite Ql (U) Negative Normal NORMAL: NEGATIVE [facility] Comment on above: Performed By: #### 2 04095 #### [facility],[address] [place] [address] pH (U) 8 [pH] Normal NORMAL: 5.0-8.[address] [facility] Comment on above: Performed By: #### 2 87897 #### [facility],[address] [place] [address] Protein Ql (U) Negative Normal NORMAL: NEGATIVE [facility] Comment on above: Performed By: #### 2 89071 #### [facility],[address] [place] [address] Rbc 0-5 Normal 0-3/hpf [facility] Comment on above: Performed By: #### 2 06787 #### [facility],[address] [place] [address] Sp Randolph 1.015 Normal NORMAL: 1.010-1.[address] [facility] Comment on above: Performed By: #### 2 31781 #### [facility],[address] [place] [address] Specimen Type R Normal [facility] Comment on above: Performed By: #### 2 85464 #### [facility],[address] [place], [place] [address] Urinalysis dipstick W Reflex Microscopic panel (U) SEE BELOW Normal [facility] Comment on above: Result Comment: MICR OSCOPIC Performed By: #### 2 17071 #### [facility],[address] [place] [address] 04205 Urobilinog NORM Normal NORMAL: NORMAL [facility] Comment on above: Performed By: #### 2 99122 #### [facility],[address] [place] [address] 50118 Wbc NONE Normal 0-5/hpf [facility] Comment on above: Performed By: #### 2 77833 #### [facility],[address] [place] [address] 61888 Yeast NONE Normal [facility] Comment on above: Performed By: #### 2 93577 #### [facility],[address] [place], [place] [address] Gastroenterology Visit Repor ton 08-21-2024 Gastroenterology Visit Report [facility] Gastroenterology [address] [place] [id number] OFFICE VISIT Date of Service: 08/21/24 MR#: [id number] Acct: [id number] Name: JULIETTE CREWS RAI Rep #: [id number] : 1975 Provider: ADAN grimes Age/Sex: 49/F Location: [facility] Status: Signed Intake Vital Signs 11/04/21 13:39 08/21/24 13:52 Height 4 ft 7.9 in 4 ft 7.9 in Weight: 135 lb BMI 30.4 BP 149/90 H Respiration 18 Pulse 114 H Pulse Oximetry (%) 94 Oxygen Delivery Method room air Intake Visit Reasons: CHRONIC CONSTIPATION Chief Complaint: constipaiton [employer] Required: No Accompanied by: Sister Is patient [...] mineral oil (Fleet Mineral Oil 118 ml AL .QTUFR 08/21/24 08/21/24 History enema) mupirocin calcium [...] are very small - smears or skid alexadnra - Dulcolax 4 tabs and 2 stool [...] to ke (more content not included)... Normal [facility] No Panel Informationon 06-07 [facility], [facility], [facility]. CNCOon 03-16-2023 CNCO Letter Text Normal [facility] CNCOon 03-09-2023 CNCO Letter Text Normal [facility] CNCOon 03-02-2023 CNCO Letter Text Normal [facility] CNCOon 01-28-2023 CNCO Letter Text Normal [facility] CNOVon 01-25-2023 CNOV Office Visit (PLHWBA ) -- JULIETTE CREWS ([id number]) 1975 F Date Time Provider Department 01/25/23 3:00 PM [facility] visit today, we recorded [...] As Of Date 01/25/2023 Noted Resolved S/P EMERGENCY SPILL RESPONSE TECHNICIAN shunt [Z98.2] 03/12/2013 Hydrocephalus [G91.9] 03/12/2013 Edema [...] Encounter Status:Closed by NAWAF QUINN on 01/26/23 [facility] CNPNon 01-12-2023 CNPN Telephone (AKPRAD) -- JULIETTE CREWS ([id number]) 1975 F Date Time Provider Department 01/12/23 [...] As Of Date 01/12/2023 Noted Resolved S/P EMERGENCY SPILL RESPONSE TECHNICIAN shunt [Z98.2] 03/12/2013 Hydrocephalus [G91.9] 03/12/2013 Edema [...] Encounter Status:Closed by SHELL RUTH on 01/14/23 [facility] Bacteria Wnd Culton 12-29-19 Bacteria identified Cx [...] , Intermediate >.25 , Resistant >.5 Abnormal [facility] Comment on above: Performed By: #### 6 462-6 #### [facility] CLIA [id number] [address] CNOVon 12-28-2022 CNOV Office Visit ([facility]) -- JULIETTE CREWS ([id number]) 1975 F Date Time Provider Department 12/28/22 1:00 PM SHELL RUTH [facility] During your visit today, we recorded the [...] CULTURE WITH GRAM STAIN [SQWCUL] Order #: [id number]. #:[id number] Prescriptions as of 01/12/2023 - bisacodyl EC [...] As Of Date 12/28/2022 Noted Resolved S/P EMERGENCY SPILL RESPONSE TECHNICIAN shunt [Z98.2] 03/12/2013 Hydrocephalus [G91.9] 03/12/2013 Edema [...] Encounter Status:Closed by SHELL RUTH on 12/28/22 [facility] Carlos 12-16-2022 [facility] Telephone (PLWBA) -- JULIETTE CREWS ([id number]) 1975 F Date Time Provider Department 12/16/22 NAWAF QUINN [facility] During your visit today, we recorded the following information about you: Love Falcon 12/16/2022 1:57 PM Signed Madonna from [facility] (P: [phone] F: [phone]) called asking for instructions for pt's wound [...] As Of Date 12/16/2022 Noted Resolved S/P EMERGENCY SPILL RESPONSE TECHNICIAN shunt [Z98.2] 03/12/2013 Hydrocephalus [G91.9] 03/12/2013 Edema [...] Encounter Status:Closed by [facility]CON [facility] (PLHWBA ) -- JULIETTE CREWS ([id number]) 1975 F Date Time Provider Department 12/14/22 3:30 PM [facility] During your visit today, we recorded [...] visit to 10/05/22 Excision sacral pressure sore [id number] 2. ATT [id number] NAES. Dehiscence again. Physical Exam General Appearance: [...] Past Histories independently gathered by the clinical technical sales support specialist and the remaining scribed note accurately describes [...] As Of Date 12/14/2022 Noted Resolved S/P EMERGENCY SPILL RESPONSE TECHNICIAN shunt [Z98.2] 03/12/2013 Hydrocephalus [G91.9] 03/12/2013 Edema [...] Encounter Status:Closed by NAWAF QUINN on 12/19/22 [facility] Carlos 12-03-2022 [facility] Telephone (AGPLASBTH ) -- ELEONORAJULIETTE ([id number]) 1975 F Date Time Provider Department 12/03/22 NAWAF QUINN [facility] During your visit today, we recorded the following information about you: Love Falcon 12/03/2022 1:07 PM Signed [facility] [address] [facility] [phone] F: [phone]. They need to know what procedure was [...] As Of Date 12/03/2022 Noted Resolved S/P EMERGENCY SPILL RESPONSE TECHNICIAN shunt [Z98.2] 03/12/2013 Hydrocephalus [G91.9] 03/12/2013 Edema [...] Encounter Status:Closed by NUNU ALEX on 12/08/22 [facility] CNOVon 11-30-2022 CNOV Office Visit (PLHWBA ) -- JULIETTE CREWS ([id number]) 1975 F Date Time Provider Department 11/30/22 10:15 AM NWAAF QUINN PLHWBA During your visit today, we [...] visit to 10/05/22 Excision sacral pressure sore [id number] 2. ATT [id number] NAES. Dehiscence ?worsened. Physical Exam General Appearance: [...] Past Histories independently gathered by the clinical technical sales support specialist and the remaining scribed note accurately describes [...] As Of Date 11/30/2022 Noted Resolved S/P EMERGENCY SPILL RESPONSE TECHNICIAN shunt [Z98.2] 03/12/2013 Hydrocephalus [G91.9] 03/12/2013 Edema [...] Encounter Status:Closed by NAWAF QUINN on 12/01/22 [facility] 11-19-2022 [facility] Telephone (AGPLASBT ) -- JULIETTE CREWS ([id number]) 1975 F Date Time Provider Department 11/19/22 SHELL RUTH [facility] During your visit today, we recorded the following information about you: Nunu Alex LPN 11/19/2022 1:16 PM Signed Hi Sabra Sher [facility] is calling regarding concern for patient's [...] you Nunu Alex LPN -Fax orders to: [phone] Allergies As of Date: 11/19/2022 Noted Allergy [...] As Of Date 11/19/2022 Noted Resolved S/P EMERGENCY SPILL RESPONSE TECHNICIAN shunt [Z98.2] 03/12/2013 Hydrocephalus [G91.9] 03/12/2013 Edema [...] Status:Closed by NUNU ALEX on 11/19/22 Normal [facility] BCIDon 11-17-2022 Acinetobacter gerber-baumanii complex Not detected Normal Not Detected [facility] ([place]) Comment on above: Performed By: #### B AMITA #### [place] [address] Bacteroides fragilis Not detected Normal Not Detected [facility] ([place]) Comment on above: Performed By: #### B AMITA #### [place] [address] BCID Comment See Comment Normal [facility] ([place]) Comment on above: Result Comment: Anti microbial [...] follow. Performed By: #### B AMITA #### [place] [address] Janki albicans Not detected Normal Not Detected [facility] ([place]) Comment on above: Performed By: #### B AMITA #### [place] [id number] Janki auris Not detected Normal Not Detected [facility] ([place]) Comment on above: Performed By: #### B AMITA #### [place] [id number] Janki glabrata Not detected Normal Not Detected [facility] ([place]) Comment on above: Performed By: #### B AMITA #### [facility] [address] [place] [address] Janki krusei Not detected Normal Not Detected [facility] ([place]) Comment on above: Performed By: #### B AMITA #### [facility] [address] [place] [address] Janki parapsilosis Not detected Normal Not Detected [facility] ([place]) Comment on above: Performed By: #### B AMITA #### [facility] [address] [place] [address] Janki tropicalis Not detected Normal Not Detected [facility] ([place]) Comment on above: Performed By: #### B AMITA #### [place] [address] Cryptococcus neoformans-gattii Not detected Normal Not Detected [facility] ([place]) Comment on above: Performed By: #### B AMITA #### [place] [address] CTX-M (ESBL) Not Applicable Normal Not Detected [facility] ([place]) Comment on above: Performed By: #### B AMITA #### [place] [address] E. Coli Not detected Normal Not Detected [facility] ([place]) Comment on above: Performed By: #### B AMITA #### [place] [address] Enterobacter cloacae Complex Not detected Normal Not Detected [facility] ([place]) Comment on above: Performed By: #### B AMITA #### [place] [address] Enterobacterales Not detected Normal Not Detected [facility] ([place]) Comment on above: Performed By: #### B AMITA #### [place] [address] Enterococcus faecalis Not detected Normal Not Detected [facility] ([place]) Comment on above: Performed By: #### B AMITA #### [place] [address] Enterococcus faecium Not detected Normal Not Detected [facility] ([place]) Comment on above: Performed By: #### B AMTIA #### [facility] [address] [place] [address] Haemophilus influenzae Not detected Normal Not Detected [facility] ([place]) Comment on above: Performed By: #### B AMITA #### [facility] [address] [place] [address] IMP (Carbapenemase) Not Applicable Normal Not Detected [facility] ([place]) Comment on above: Performed By: #### B AMITA #### [place] [address] Klebsiella aerogenes Not detected Normal Not Detected [facility] ([place]) Comment on above: Performed By: #### B AMITA #### [place] [address] Klebsiella oxytoca Not detected Normal Not Detected [facility] ([place]) Comment on above: Performed By: #### B AMITA #### [place] [address] Klebsiella pneumoniae group Not detected Normal Not Detected [facility] ([place]) Comment on above: Performed By: #### B AMITA #### [place] [address] KPC (Carbapenemase) Not Applicable Normal Not Detected [facility] ([place]) Comment on above: Performed By: #### B AMITA #### [place] [address] Listeria monocytogenes Not detected Normal Not Detected [facility] ([place]) Comment on above: Performed By: #### B AMITA #### [place] [address] MCR-1 (Colistin Resistance) Not Applicable Normal Not Detected [facility] ([place]) Comment on above: Performed By: #### B AMITA #### [place] [address] Mec A/C Not Applicable Normal Not Detected [facility] ([place]) Comment on above: Performed By: #### B AMITA #### [place] [address] Mec A/C-MREJ (MRSA) Not Applicable Normal Not Detected [facility] ([place]) Comment on above: Performed By: #### B AMITA #### [facility] [address] [place] [address] NDM (Carbapenemase) Not Applicable Normal Not Detected [facility] ([place]) Comment on above: Performed By: #### B AMITA #### [facility] [address] [place] [address] Neisseria meningitidis (Encapsalated) Not detected Normal Not Detected [facility] ([place]) Comment on above: Performed By: #### B AMITA #### [facility] [address] [place] [address] OXA-48 like (Carbapenemase) Not Applicable Normal Not Detected [facility] ([place]) Comment on above: Performed By: #### B AMITA #### [place] [address] Proteus Not detected Normal Not Detected [facility] ([place]) Comment on above: Performed By: #### B AMITA #### [place] [address] Pseudomonas aeruginosa Not detected Normal Not Detected [facility] ([place]) Comment on above: Performed By: #### B AMIAT #### [place] [address] S. agalactiae Org specific cx Ql (Vag fld) Not detected Normal Not Detected [facility] ([place]) Comment on above: Performed By: #### B AMITA #### [address] [address] Salmonella species Not detected Normal Not Detected [facility] ([place]) Comment on above: Performed By: #### B AMITA #### [place] [address] Serratia marcescens Not detected Normal Not Detected [facility] ([place]) Comment on above: Performed By: #### B AMITA #### [address] [address] Staphylococcus Not detected Normal Not Detected [facility] ([place]) Comment on above: Performed By: #### B AMITA #### [address] [address] Staphylococcus aureus Not detected Normal Not Detected [facility] ([place]) Comment on above: Result Comment: If S taphylococcus aureus is Detected, an Infectious Disease physician consult is required on identification. Performed By: #### B AMITA #### [place] [address] Staphylococcus epidermidis Not detected Normal Not Detected [facility] ([place]) Comment on above: Performed By: #### B AMITA #### [place] [address] Staphylococcus lugdunensis Not detected Normal Not Detected [facility] ([place]) Comment on above: Performed By: #### B AMITA #### [place] [address] Stenotropomonas maltophilia Not detected Normal Not Detected [facility] ([place] Comment on above: Performed By: #### B AMITA #### [place] [address] Streptococcus Detected Abnormal Not Detected [facility] ([place]) Comment on above: Performed By: #### B AMITA #### [place] [address] Streptococcus pneumoniae Not detected Normal Not Detected [facility] ([place]) Comment on above: Performed By: #### B AMITA #### [place] [address] Streptococcus pyogenes Detected Abnormal Not Detected [facility] ([place]) Comment on above: Performed By: #### B AMITA #### [place] [address] Van A/B Not Applicable Normal Not Detected [facility] ([place]) Comment on above: Performed By: #### B AMITA #### [place] [address] VIM (Carbapenemase) Not Applicable Normal Not Detected [facility] ([place]) Comment on above: Performed By: #### B AMITA #### [place] [address] Aida 11-16-2022 CNOV Office Visit ([facility]) -- JULIETTE CREWS ([id number]) 1975 F Date Time Provider Department 11/16/22 2:00 PM SHELL RUTHASBTBharti During your visit today, we recorded the [...] As Of Date 11/16/2022 Noted Resolved S/P EMERGENCY SPILL RESPONSE 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 shunt [Z98.2] 03/12/2013 Hydrocephalus [G91.9] 03/12/2013 Edema [...] Date Provider Department Center 11/16/2022 [facility] Encounter Status:Closed by SHELL RUTH on 11/17/22 [facility] CNPFern 11-15-2022 CNPN Telephone (AGPLASBT ) -- JULIETTE CREWS ([id number]) 1975 F Date Time Provider Department 11/15/22 NAWAF QUINN [facility] During your visit today, we recorded the following information about you: Oralia Burnett MA 11/15/2022 1:23 PM Signed Loi Degroot with [facility] [phone] called in to inform you over these events that happened over the weekend . ADELAIDA Drained fell out Tuesday. Was Keeping it clean and dry with guaze. Today an ambulance was called due to high blood pressure, fever, rapid heart rate. Patent was transported to [place] . Oralia Burnett MA Allergies As of [...] As Of Date 11/15/2022 Noted Resolved S/P EMERGENCY SPILL RESPONSE TECHNICIAN shunt [Z98.2] 03/12/2013 Hydrocephalus [G91.9] 03/12/2013 Edema [...] Encounter Status:Closed by ORALIA BURNETT on 11/16/22 [facility] Aida 11-09-2022 CNOV Office Visit (PLHWBA ) -- JULIETTE CREWS ([id number]) 1975 F Date Time Provider Department 11/09/22 [...] visit to 10/05/22 Excision sacral pressure sore [id number] 2. ATT [id number] NAES. Stable wound. Physical Exam General Appearance: [...] Past Histories independently gathered by the clinical technical sales support specialist and the remaining scribed note accurately describes [...] As Of Date 11/09/2022 Noted Resolved S/P EMERGENCY SPILL RESPONSE TECHNICIAN shunt [Z98.2] 03/12/2013 Hydrocephalus [G91.9] 03/12/2013 Edema [...] Encounter Status:Closed by NAWAF QUINN on 11/09/22 [facility] CNOVon 10-26-2022 CNOV Office Visit (PLHWBA ) -- JULIETTE CREWS ([id number]) 1975 F Date Time Provider Department 10/26/22 10:15 AM [facility] During your visit today, we recorded the following information about you: Nawaf Quinn MD 10/29/2022 4:54 PM Signed Plastic Surgery Postop Note Subjective: Juliette Crews is a 47 year old female who presents today in post operative visit to 10/05/22 Excision sacral pressure sore [id number] 2. ATT [id number] Physical Exam General Appearance: Well appearing, alert, [...] Past Histories independently gathered by the clinical technical sales support specialist and the remaining scribed note accurately describes [...] As Of Date 10/26/2022 Noted Resolved S/P EMERGENCY SPILL RESPONSE TECHNICIAN shunt [Z98.2] 03/12/2013 Hydrocephalus [G91.9] 03/12/2013 Edema [...] Encounter Status:Closed by NAWAF QUINN on 10/29/22 [facility] CNPNon 10-11-2022 CNPN Telephone (PLHWBA) -- JULIETTE CREWS ([id number]) 1975 F Date Time Provider Department 10/11/22 NAWAF QUINN PLHWBA During your visit today, we recorded the following information about you: Oralia Burnett MA 10/11/2022 3:51 PM Signed Timbo [...] to add anything? Oralia Burnett MA Timbo [phone] Shell Ruth PA-C 10/13/2022 3:06 PM Signed [...] As Of Date 10/11/2022 Noted Resolved S/P EMERGENCY SPILL RESPONSE TECHNICIAN shunt [Z98.2] 03/12/2013 Hydrocephalus [G91.9] 03/12/2013 Edema [...] Status:Closed by ORALIA BURNETT on 10/13/22 Normal [facility] Basic metabolic 2000 panelon 10-08-2022 Anion gap [Moles/Vol] 8 mmol/L Low 9-18 [facility] Comment on above: Order Comment: Speci men Type: BLOOD SPECIMENOrdering Facility: [facility] Address: [address] [place] [address] Performed By: #### 1 1475-1, 635-3, 07480-6 #### [facility] CLIA [id number] [address] [place] [address] [place] #### BACPCR #### [facility] CLIA [id number] [address] [place] [address] [place] Calcium [Mass/Vol] 9.0 mg/dL Normal 8.5-10.2 [facility] Comment on above: Order Comment: Speci men Type: BLOOD SPECIMENOrdering Facility: [facility] Address: [address] Performed By: #### 1 1475-1, 635-3, 20247-8 #### [facility] CLIA [id number] [address] [place] [address] [place] #### BACPCR #### [facility] CLIA [id number] [address] [place] [address] [place] Chloride [Moles/Vol] 101 mmol/L Normal 97-105 [facility] Comment on above: Order Comment: Speci men Type: BLOOD SPECIMENOrdering Facility: [facility] Address: [address] Performed By: #### 1 1475-1, 635-3, 93982-5 #### [facility] CLIA [id number] [address] [place] [address] [place] #### BACPCR #### [facility] CLIA [id number] [address] [place] CO2 [Moles/Vol] 30 mmol/L Normal 22-30 [facility] Comment on above: Order Comment: Speci men Type: BLOOD SPECIMENOrdering Facility: [facility] Address: [address] [place] [address] Performed By: #### 1 1475-1, 635-3, 56031-3 #### [facility] CLIA [id number] [address] #### BACPCR #### [facility] CLIA [id number] [facility] [place] Creatinine [Mass/Vol] 0.58 mg/dL Normal 0.58-0.96 [facility] Comment on above: Order Comment: Speci men Type: BLOOD SPECIMENOrdering Facility: [facility] Address: [address] [place] [address] Performed By: #### 1 1475-1, 635-3, 09007-0 #### [facility] CLIA [id number] [address] #### BACPCR #### [facility] CLIA [id number] [address] [place] [address] ESTIMATED GLOMERULAR FILTRATION RATE 112 mL/min/1.73m??? Normal >=60 [facility] Comment on above: Order Comment: Speci men Type: BLOOD SPECIMENOrdering Facility: [facility] Address: [address] [address] Result Comment: Priya mated Glomerular Filtration Rate [...] GFR. Performed By: #### 1 1475-1, 635-3, 98336-6 #### [facility] CLIA [id number] 1 [place] [address] [place] #### BACPCR #### [facility] CLIA [id number] [address] [place] [address] [place] Glucose [Mass/Vol] 116 mg/dL High 74-99 [facility] Comment on above: Order Comment: Speci men Type: BLOOD SPECIMENOrdering Facility: [facility] Address: [address] [place] [address] Result Comment: The [place] [employer] (ADA) provides guidance for cutoff [...] Standards of Medical Care in Diabetes 2016, [place] [employer]. Diabetes Care. 2016.39(Suppl 1). Performed By: #### 1 1475-1, 635-3, 76237-4 #### [facility] CLIA [id number] 1 [place] [address] [place] #### BACPCR #### [facility] CLIA [id number] [facility] [place] [address] [place] Potassium [Moles/Vol] 3.9 mmol/L Normal 3.7-5.1 [facility] Comment on above: Order Comment: Speci men Type: BLOOD SPECIMENOrdering Facility: [facility] Address: [address] [place], [place] [address] Performed By: #### 1 1475-1, 635-3, 44755-3 #### [facility] CLIA [id number] 1 [place] [address] [place] #### BACPCR #### [facility] CLIA [id number] [address] [place] [address] [place] Sodium [Moles/Vol] 139 mmol/L Normal 136-144 [facility] Comment on above: Order Comment: Speci men Type: BLOOD SPECIMENOrdering Facility: [facility] Address: [address] [address] Performed By: #### 1 1475-1, 635-3, 04379-3 #### [facility] CLIA [id number] [address] [place] [address] [place] #### BACPCR #### [facility] CLIA [id number] [facility] [address] [place] Urea nitrogen [Mass/Vol] 8 mg/dL Normal 7-21 [facility] Comment on above: Order Comment: Speci men Type: BLOOD SPECIMENOrdering Facility: [facility] Address: [address] [place] [address] Performed By: #### 1 1475-1, 63-3, 52615-9 #### [facility] CLIA [id number] [address] STATES [facility] #### BACPCR #### [facility] CLIA [id number] [address] [place] [address] [place] CBC panel Auto (Bld)on 10-08 Erythrocyte distribution width (RBC) [Ratio] 14.7 % Normal 11.5-15.0 [facility] Comment on above: Order Comment: Speci men Type: BLOOD SPECIMENOrdering Facility: [facility] Address: [address] [place] [address] Performed By: #### 1 1475-1, 635-3, 49680-8 #### [facility] CLIA [id number] [address] [place] #### BACPCR #### [facility] CLIA [id number] [address] [place] [address] [place] Hematocrit (Bld) [Volume fraction] 25.2 % Low 36.0-46.0 [facility] Comment on above: Order Comment: Speci men Type: BLOOD SPECIMENOrdering Facility: [facility] Address: [address] [address] Performed By: #### 1 1475-1, 63-3, 73415-5 #### [facility] CLIA [id number] [address] [place] [address] [place] #### BACPCR #### [facility] CLIA [id number] [address] [place] [address] [place] Hemoglobin (Bld) [Mass/Vol] 8.1 g/dL Low 11.5-15.5 [facility] Comment on above: Order Comment: Speci men Type: BLOOD SPECIMENOrdering Facility: [facility] Address: [address] [place] [address] Performed By: #### 1 1475-, 62-3, 74317-1 #### [facility] CLIA [id number] 1 [place] [address] [place] #### BACPCR #### [facility] CLIA [id number] [address] [place] [address] [place] MCH (RBC) [Entitic mass] 30.1 pg Normal 26.0-34.0 [facility] Comment on above: Order Comment: Speci men Type: BLOOD SPECIMENOrdering Facility: [facility] Address: [address] Performed By: #### 1 1475-1, 63-3, 10862-0 #### [facility] CLIA [id number] 1 [place] [address] [place] #### BACPCR #### [facility] CLIA [id number] [address] [place] [address] [place] MCHC (RBC) [Mass/Vol] 32.1 g/dL Normal 30.5-36.0 [facility] Comment on above: Order Comment: Speci men Type: BLOOD SPECIMENOrdering Facility: [facility] Address: [address] [address] Performed By: #### 1 1475-1, 635-3, 62876-2 #### [facility] CLIA [id number] [address] [place] [address] [place] #### BACPCR #### [facility] CLIA [id number] [address] [place] [address] [place] MCV (RBC) [Entitic vol] 93.7 fL Normal 80.0-100.0 [facility] Comment on above: Order Comment: Speci men Type: BLOOD SPECIMENOrdering Facility: [facility] Address: [address] [place] [address] Performed By: #### 1 1475-1, 63-3, 35205-3 #### [facility] CLIA [id number] [address] [place] [address] [place] #### BACPCR #### [facility] CLIA [id number] [address] [place] [address] [place] Nucleated RBC (Bld) [#/Vol] 10*3/uL Normal <0.01 [facility] Comment on above: Order Comment: Speci men Type: BLOOD SPECIMENOrdering Facility: [facility] Address: [address] [place] [address] Performed By: #### 1 1475-1, 635-3, 94898-9 #### [facility] CLIA [id number] [address] [place] [address] [place] #### BACPCR #### [facility] CLIA [id number] [address] [place] [address] [place] Platelet mean volume (Bld) [Entitic vol] 9.4 fL Normal 9.0-12.7 [facility] Comment on above: Order Comment: Speci men Type: BLOOD SPECIMENOrdering Facility: [facility] Address: [address] [place] [address] Performed By: #### 1 1475-1, 635-3, 27964-6 #### [facility] CLIA [id number] [address] [place] #### BACPCR #### [facility] CLIA [id number] [address] [place] [address] [place] Platelets (Bld) [#/Vol] 276 10*3/uL Normal 150-400 [facility] Comment on above: Order Comment: Speci men Type: BLOOD SPECIMENOrdering Facility: [facility] Address: [address] [place] [address] Performed By: #### 1 1475-1, 635-3, 81070-0 #### [facility] CLIA [id number] [address] [place] #### BACPCR #### [facility] CLIA [id number] [address] [place] [address] [place] RBC (Bld) [#/Vol] 2.69 10*6/uL Low 3.90-5.20 [facility] Comment on above: Order Comment: Speci men Type: BLOOD SPECIMENOrdering Facility: [facility] Address: [address] [place] [address] Performed By: #### 1 1475-1, 635-3, 04027-2 #### [facility] CLIA [id number] [address] [place] #### BACPCR #### [facility] CLIA [id number] [address] [place] [address] [place] WBC (Bld) [#/Vol] 14.12 10*3/uL High 3.70-11.00 [facility] Comment on above: Order Comment: Speci men Type: BLOOD SPECIMENOrdering Facility: [facility] Address: [address] [id number] Performed By: #### 1 1475-1, 635-3, 80258-2 #### [facility] CLIA [id number] 1 [place] [address] [facility] [place] #### BACPCR #### [facility] CLIA [id number] [address] [facility] [address] [address] [facility] [place] CONSULT PROGon 10-08-2022 CONSULT PROG HNO ID: [id number] Author: Dacia Gonzalez bharti Service: Pharmacy Author [...] have any questions, [place] [phone]. Age: [age] year old Allergies: ALLERGIES Allergen [...] Date/Time Value 10/08/2022 0505 16.9 Dacia Gonzalez [facility] Normal [facility] Vancomycin random [Mass/Vol] on 10-08-2022 Vancomycin [Mass/Vol] 16.9 ug/mL Normal 10.0-20.0 [facility] Comment on above: Order Comment: Speci men Type: BLOOD SPECIMENOrdering Facility: [facility] Address: [address] [place] [address] Result Comment: Refe rence ranges and high/low indicator flags are provided as general guidelines only. The treating physician must determine appropriate target levels/dosing based on the specific clinical situation. Performed By: #### 1 1475-1, 635-3, 26499-1 #### [facility] CLIA [id number] 1 [place] [address] [place] #### BACPCR #### [facility] CLIA [id number] [address] [place] [address] [place] Basic metabolic 2000 panelon 10-07-2022 Anion gap [Moles/Vol] 8 mmol/L Low 9-18 [facility] Comment on above: Order Comment: Speci men Type: BLOOD SPECIMENOrdering Facility: [facility] Address: [address] Performed By: #### 1 1475-1, 635-3, 68293-8 #### [facility] CLIA [id number] [address] [place] [address] [place] #### BACPCR #### [facility] CLIA [id number] [address] [place] [address] [place] Calcium [Mass/Vol] 8.7 mg/dL Normal 8.5-10.2 [facility] Comment on above: Order Comment: Speci men Type: BLOOD SPECIMENOrdering Facility: [facility] Address: [address] [place] [address] Performed By: #### 1 1475-1, 635-3, 91566-8 #### [facility] CLIA [id number] [address] [place] [address] [place] #### BACPCR #### [facility] CLIA [id number] [address] [place] [address] [place] Chloride [Moles/Vol] 101 mmol/L Normal 97-105 [facility] Comment on above: Order Comment: Speci men Type: BLOOD SPECIMENOrdering Facility: [facility] Address: [address] [place] [address] Performed By: #### 1 1475-1, 635-3, 41872-3 #### [facility] CLIA [id number] [address] [place] [address] [place] #### BACPCR #### [facility] CLIA [id number] [address] [place] [address] [place] CO2 [Moles/Vol] 27 mmol/L Normal 22-30 [facility] Comment on above: Order Comment: Speci men Type: BLOOD SPECIMENOrdering Facility: [facility] Address: [address] [address] Performed By: #### 1 1475-1, 635-3, 14120-5 #### [facility] CLIA [id number] [address] [place] #### BACPCR #### [facility] CLIA [id number] [address] [place] Creatinine [Mass/Vol] 0.39 mg/dL Low 0.58-0.96 [facility] Comment on above: Order Comment: Speci men Type: BLOOD SPECIMENOrdering Facility: [facility] Address: [address] [place] [address] Performed By: #### 1 1475-1, 635-3, 79225-4 #### [facility] CLIA [id number] [address] [place] [address] [place] #### BACPCR #### [facility] CLIA [id number] [address] [place] [address] [place] ESTIMATED GLOMERULAR FILTRATION RATE 124 mL/min/1.73m??? Normal >=60 [facility] Comment on above: Order Comment: Speci men Type: BLOOD SPECIMENOrdering Facility: [facility] Address: [address] [place] [address] Result Comment: Priya mated Glomerular Filtration Rate [...] GFR. Performed By: #### 1 1475-1, 635-3, 84352-7 #### [facility] CLIA [id number] 1 [place] [address] [place] #### BACPCR #### [facility] CLIA [id number] [address] [place] [address] [place] Glucose [Mass/Vol] 106 mg/dL High 74-99 [facility] Comment on above: Order Comment: Speci men Type: BLOOD SPECIMENOrdering Facility: [facility] Address: [address] [id number] Result Comment: The [place] [employer] (ADA) provides guidance for cutoff [...] Standards of Medical Care in Diabetes 2016, [place] [employer]. Diabetes Care. 2016.39(Suppl 1). Performed By: #### 1 1475-1, 635-3, 22137-0 #### [facility] CLIA [id number] 1 [place] [address] [place] #### BACPCR #### [facility] CLIA [id number] [facility] [place] [address] [place] Potassium [Moles/Vol] 3.6 mmol/L Low 3.7-5.1 [facility] Comment on above: Order Comment: Speci men Type: BLOOD SPECIMENOrdering Facility: [facility] Address: [address] [id number] Performed By: #### 1 1475-1, 635-3, 23722-1 #### [facility] CLIA [id number] 1 [place] [address] [place] #### BACPCR #### [facility] CLIA [id number] [address] [place] [address] [place] Sodium [Moles/Vol] 136 mmol/L Normal 136-144 [facility] Comment on above: Order Comment: Speci men Type: BLOOD SPECIMENOrdering Facility: [facility] Address: [address] [address] Performed By: #### 1 1475-1, 635-3, 58744-0 #### [facility] CLIA [id number] [address] [place] [address] [place] #### BACPCR #### [facility] CLIA [id number] [facility] [place] [address] [place] Urea nitrogen [Mass/Vol] 5 mg/dL Low 7-21 [facility] Comment on above: Order Comment: Speci men Type: BLOOD SPECIMENOrdering Facility: [facility] Address: [address] [place] [address] Performed By: #### 1 1475-1, 63-3, 19282-4 #### [facility] CLIA [id number] 1 [place] [address] [place] #### BACPCR #### [facility] CLIA [id number] [address] [place] [address] [place] CBC panel Auto (Bld)on 10-07 Erythrocyte distribution width (RBC) [Ratio] 14.9 % Normal 11.5-15.0 [facility] Comment on above: Order Comment: Speci men Type: BLOOD SPECIMENOrdering Facility: [facility] Address: [address] [place] [address] Performed By: #### 1 1475-1, 635-3, 49060-0 #### [facility] CLIA [id number] 1 [place] [address] [place] #### BACPCR #### [facility] CLIA [id number] [address] [place] Hematocrit (Bld) [Volume fraction] 23.8 % Low 36.0-46.0 [facility] Comment on above: Order Comment: Speci men Type: BLOOD SPECIMENOrdering Facility: [facility] Address: [address] [address] Performed By: #### 1 1475-1, 635-3, 65109-8 #### [facility] CLIA [id number] [address] [place] [address] [place] [facility] #### BACPCR #### [facility] CLIA [id number] [address] [place] [address] [place] Hemoglobin (Bld) [Mass/Vol] 7.9 g/dL Low 11.5-15.5 [facility] Comment on above: Order Comment: Speci men Type: BLOOD SPECIMENOrdering Facility: [facility] Address: [address] [place] [address] Performed By: #### 1 1475-1, 395-3, 14004-6 #### [facility] CLIA [id number] [address] [place] [address] [place] #### BACPCR #### [facility] CLIA [id number] [address] [place] [address] [place] MCH (RBC) [Entitic mass] 30.2 pg Normal 26.0-34.0 [facility] Comment on above: Order Comment: Speci men Type: BLOOD SPECIMENOrdering Facility: [facility] Address: [address] Performed By: #### 1 1475-1, 955-3, 86194-2 #### [facility] CLIA [id number] [address] [place] [address] [place] #### BACPCR #### [facility] CLIA [id number] [facility] [address] [place] MCHC (RBC) [Mass/Vol] 33.2 g/dL Normal 30.5-36.0 [facility] Comment on above: Order Comment: Speci men Type: BLOOD SPECIMENOrdering Facility: [facility] Address: [address] [place] [address] Performed By: #### 1 1475-1, 635-3, 67794-8 #### [facility] CLIA [id number] [address] #### BACPCR #### [facility] CLIA [id number] [address] [place] [address] [place] MCV (RBC) [Entitic vol] 90.8 fL Normal 80.0-100.0 [facility] Comment on above: Order Comment: Speci men Type: BLOOD SPECIMENOrdering Facility: [facility] Address: [address] [place] [address] Performed By: #### 1 1475-1, 63-3, 15821-3 #### [facility] CLIA [id number] [address] [place] [address] [place] #### BACPCR #### [facility] CLIA [id number] [address] [place] [address] [place] Nucleated RBC (Bld) [#/Vol] 10*3/uL Normal <0.01 [facility] Comment on above: Order Comment: Speci men Type: BLOOD SPECIMENOrdering Facility: [facility] Address: [address] [place] [address] Performed By: #### 1 1475-1, 635-3, 16216-2 #### [facility] CLIA [id number] [address] [place] #### BACPCR #### [facility] CLIA [id number] [address] [place] [address] [place] Platelet mean volume (Bld) [Entitic vol] 9.7 fL Normal 9.0-12.7 [facility] Comment on above: Order Comment: Speci men Type: BLOOD SPECIMENOrdering Facility: [facility] Address: [address] [place] [address] Performed By: #### 1 1475-1, 635-3, 04129-1 #### [facility] CLIA [id number] [address] [place] #### BACPCR #### [facility] CLIA [id number] [address] [place] [address] [place] Platelets (Bld) [#/Vol] 224 10*3/uL Normal 150-400 [facility] Comment on above: Order Comment: Speci men Type: BLOOD SPECIMENOrdering Facility: [facility] Address: [address] [place] [address] Performed By: #### 1 1475-1, 635-3, 70588-4 #### [facility] CLIA [id number] [address] [place] #### BACPCR #### [facility] CLIA [id number] [address] [place] [address] [place] RBC (Bld) [#/Vol] 2.62 10*6/uL Low 3.90-5.20 [facility] Comment on above: Order Comment: Speci men Type: BLOOD SPECIMENOrdering Facility: [facility] Address: [address] [place], [place] [address] Performed By: #### 1 1475-1, 635-3, 14025-2 #### [facility] CLIA [id number] [address] #### BACPCR #### [facility] CLIA [id number] [address] [place] [address] [place] WBC (Bld) [#/Vol] 16.41 10*3/uL High 3.70-11.00 [facility] Comment on above: Order Comment: Speci men Type: BLOOD SPECIMENOrdering Facility: [facility] Address: [address] [id number] Performed By: #### 1 1475-1, 635-3, 23607-6 #### [facility] CLIA [id number] 1 [place] [address] [facility] [place] #### BACPCR #### [facility] CLIA [id number] [address] [facility] [place] [address] [facility] CNDSon 10-07-2022 CNDS HNO ID: [id number] Author: Shell Ruth PA-C Service: Plastic Surgery Author Type: Physician Service Tech Type: Discharge Summary Filed: 10/08/2022 1:13 PM Note Text: DISCHARGE SUMMARY PATIENT NAME: Juliette Crews ADMISSION DATE: 10/05/2022 DISCHARGE DATE: 10/08/2022 [...] Patient and Guardian I have performed the xrik-rc-ezxj and relevant services for a total of >30 minutes. SIGNATURE: Shell Ruth PA-C DATE: October 07, 2022 TIME: 11:14 AM Normal [facility] CNPN Telephone (PLHWBA) -- JULIETTE CREWS ([id number]) 1975 F Date Time Provider Department 10/07/22 [facility] During your visit today, we recorded the following information about you: Nunu Alex LPN 10/07/2022 9:34 AM Signed Update: Mitch Burnett from [facility] Board of called in wanting to speak with patient's transplant case manager regarding after care summary post-op surgery on [...] As Of Date 10/07/2022 Noted Resolved S/P EMERGENCY SPILL RESPONSE TECHNICIAN shunt [Z98.2] 03/12/2013 Hydrocephalus [G91.9] 03/12/2013 Edema [...] Encounter Status:Closed by NUNU ALEX on 10/07/22 [facility] 10-06-2022 ALLIED HEALTH HNO ID: [id number] Author: Chaplain Taj Ribera Service: Spiritual Care Author Type: Student Type: Allied Health Filed: 10/06/2022 2:11 PM Note Text: SPIRITUAL CARE PROGRESS NOTE SERVICE DATE: 10/06/2022 SERVICE TIME: 9:53 am Initial visit, the patient request a prayer, after that she express gratitude To contact the Spiritual Care Department: Please call [phone]. SIGNATURE: Chaplain Mounika Student PATIENT NAME: Juliette Crews DATE: October 06, 2022 TIME: 2:09 PM PAGER/CONTACT #: [phone] [facility] Basic metabolic 2000 panelon 10-06-2022 Anion gap [Moles/Vol] 8 mmol/L Low 9-18 [facility] Comment on above: Order Comment: Speci men Type: BLOOD SPECIMENOrdering Facility: [facility] Address: [address] Performed By: #### 1 1475-1, 63-3, 15652-6 #### [facility] CLIA [id number] 1 [place] [address] [place] #### BACPCR #### [facility] CLIA [id number] [address] [place] [address] [place] Calcium [Mass/Vol] 8.5 mg/dL Normal 8.5-10.2 [facility] Comment on above: Order Comment: Speci men Type: BLOOD SPECIMENOrdering Facility: [facility] Address: [address] Performed By: #### 1 1475-1, 633, 25969-9 #### [facility] CLIA [id number] [address] [place] #### BACPCR #### [facility] CLIA [id number] [address] [place] [address] [place] Chloride [Moles/Vol] 104 mmol/L Normal 97-105 [facility] Comment on above: Order Comment: Speci men Type: BLOOD SPECIMENOrdering Facility: [facility] Address: [address] Performed By: #### 1 1475-1, 633, 44108-2 #### [facility] CLIA [id number] [address] [place] [address] [place] #### BACPCR #### [facility] CLIA [id number] [address] [place] [address] [place] CO2 [Moles/Vol] 28 mmol/L Normal 22-30 [facility] Comment on above: Order Comment: Speci men Type: BLOOD SPECIMENOrdering Facility: [facility] Address: [address] Performed By: #### 1 1475-1, 63-3, 67875-9 #### [facility] CLIA [id number] [address] #### BACPCR #### [facility] CLIA [id number] [address] [place] Creatinine [Mass/Vol] 0.56 mg/dL Low 0.58-0.96 [facility] Comment on above: Order Comment: Speci men Type: BLOOD SPECIMENOrdering Facility: [facility] Address: [address] [place] [address] Performed By: #### 1 1475-1, 635-3, 01127-8 #### [facility] CLIA [id number] [address] #### BACPCR #### [facility] CLIA [id number] [address] [place] [address] ESTIMATED GLOMERULAR FILTRATION RATE 113 mL/min/1.73m??? Normal >=60 [facility] Comment on above: Order Comment: Speci men Type: BLOOD SPECIMENOrdering Facility: [facility] Address: [address] [place] [address] Result Comment: Priya mated Glomerular Filtration Rate [...] GFR. Performed By: #### 1 1475-1, 635-3, 60635-2 #### [facility] CLIA [id number] [address] [place] #### BACPCR #### [facility] CLIA [id number] [address] STATES [facility] Glucose [Mass/Vol] 98 mg/dL Normal 74-99 [facility] Comment on above: Order Comment: Audi lozano Type: BLOOD SPECIMENOrdering Facility: [facility] Address: [place] [id number] Result Comment: The [place] Diabetes Association (ADA) provides guidance for cutoff [...] Standards of Medical Care in Diabetes 2016, [place] [employer]. Diabetes Care. 2016.39(Suppl 1). Performed By: #### 1 1475-1, 635-3, 83409-7 #### [facility] CLIA [id number] [address] [place] [address] [place] #### BACPCR #### [facility] CLIA [id number] [address] [place] [address] [place] Potassium [Moles/Vol] 3.9 mmol/L Normal 3.7-5.1 [facility] Comment on above: Order Comment: Audi lozano Type: BLOOD SPECIMENOrdering Facility: [facility] Address: [place] [id number] Performed By: #### 1 1475-1, 635-3, 97638-9 #### [facility] CLIA [id number] 1 [place] [address] [place] #### BACPCR #### [facility] CLIA [id number] [address] [place] [address] [place] Sodium [Moles/Vol] 140 mmol/L Normal 136-144 [facility] Comment on above: Order Comment: Audi lozano Type: BLOOD SPECIMENOrdering Facility: [facility] Address: [address] [place] [address] Performed By: #### 1 1475-1, 635-3, 59075-4 #### [facility] CLIA [id number] [address] #### BACPCR #### [facility] CLIA [id number] [address] [place] Urea nitrogen [Mass/Vol] 10 mg/dL Normal 7-21 [facility] Comment on above: Order Comment: Speci men Type: BLOOD SPECIMENOrdering Facility: [facility] Address: [address] [place] [address] Performed By: #### 1 1475-1, 635-3, 98662-1 #### [facility] CLIA [id number] [address] [place] [address] #### BACPCR #### [facility] CLIA [id number] [address] [place] [address] [place] CBC panel Auto (Bld)on 10-06 Erythrocyte distribution width (RBC) [Ratio] 15.0 % Normal 11.5-15.0 [facility] Comment on above: Order Comment: Speci men Type: BLOOD SPECIMENOrdering Facility: [facility] Address: [address] Performed By: #### 1 1475-1, 635-3, 42640-3 #### [facility] CLIA [id number] [address] [place] [address] [place] #### BACPCR #### [facility] CLIA [id number] [address] [place] [address] [place] Hematocrit (Bld) [Volume fraction] 23.3 % Low 36.0-46.0 [facility] Comment on above: Order Comment: Speci men Type: BLOOD SPECIMENOrdering Facility: [facility] Address: [address] [place] [address] Performed By: #### 1 1475-1, 635-3, 32286-9 #### [facility] CLIA [id number] [address] [place] #### BACPCR #### [facility] CLIA [id number] [address] [place] [address] [place] Hemoglobin (Bld) [Mass/Vol] 7.9 g/dL Low 11.5-15.5 [facility] Comment on above: Order Comment: Speci men Type: BLOOD SPECIMENOrdering Facility: [facility] Address: [address] Performed By: #### 1 1475-1, 63-3, 37019-5 #### [facility] CLIA [id number] [address] [place] [address] #### BACPCR #### [facility] CLIA [id number] [address] [place] [address] [place] MCH (RBC) [Entitic mass] 30.4 pg Normal 26.0-34.0 [facility] Comment on above: Order Comment: Speci men Type: BLOOD SPECIMENOrdering Facility: [facility] Address: [address] [place] [address] Performed By: #### 1 1475-1, 63-3, 94951-4 #### [facility] CLIA [id number] [address] [place] [address] #### BACPCR #### [facility] CLIA [id number] [address] [place] MCHC (RBC) [Mass/Vol] 33.9 g/dL Normal 30.5-36.0 [facility] Comment on above: Order Comment: Speci men Type: BLOOD SPECIMENOrdering Facility: [facility] Address: [address] Performed By: #### 1 1475-1, 63-3, 83998-4 #### [facility] CLIA [id number] [address] #### BACPCR #### [facility] CLIA [id number] [address] [place] MCV (RBC) [Entitic vol] 89.6 fL Normal 80.0-100.0 [facility] Comment on above: Order Comment: Speci men Type: BLOOD SPECIMENOrdering Facility: [facility] Address: [address] Performed By: #### 1 1475-1, , 57567-5 #### [facility] CLIA [id number] [address] #### BACPCR #### [facility] CLIA [id number] [facility] [address] [place] Nucleated RBC (Bld) [#/Vol] 10*3/uL Normal <0.01 [facility] Comment on above: Order Comment: Speci men Type: BLOOD SPECIMENOrdering Facility: [facility] Address: [address] [place] [address] Performed By: #### 1 1475-1, , 43859-9 #### [facility] CLIA [id number] [address] #### BACPCR #### [facility] CLIA [id number] [address] [place] [address] [place] Platelet mean volume (Bld) [Entitic vol] 9.7 fL Normal 9.0-12.7 [facility] Comment on above: Order Comment: Speci men Type: BLOOD SPECIMENOrdering Facility: [facility] Address: [address] [place] Performed By: #### 1 1475-1, 63-3, 29346-7 #### [facility] CLIA [id number] [address] [place] #### BACPCR #### [facility] CLIA [id number] [address] [place] [address] [place] Platelets (Bld) [#/Vol] 184 10*3/uL Normal 150-400 [facility] Comment on above: Order Comment: Speci men Type: BLOOD SPECIMENOrdering Facility: [facility] Address: [address] [place] [address] Performed By: #### 1 1475-1, 63-3, 11636-3 #### [facility] CLIA [id number] [address] [place] #### BACPCR #### [facility] CLIA [id number] [address] [place] [address] [place] RBC (Bld) [#/Vol] 2.60 10*6/uL Low 3.90-5.20 [facility] Comment on above: Order Comment: Speci men Type: BLOOD SPECIMENOrdering Facility: [facility] Address: [address] [place] [address] Performed By: #### 1 1475-1, 633, 86371-8 #### [facility] CLIA [id number] [address] [place] #### BACPCR #### [facility] CLIA [id number] [address] [place] [address] [place] WBC (Bld) [#/Vol] 13.68 10*3/uL High 3.70-11.00 [facility] Comment on above: Order Comment: Speci men Type: BLOOD SPECIMENOrdering Facility: [facility] Address: [address] [place] [address] Performed By: #### 1 1475-1, 63-3, 68226-6 #### [facility] CLIA [id number] 1 [place] [address] [place] #### BACPCR #### [facility] CLIA [id number] [address] [address] [place] CONSULTon 10-06-2022 CONSULT HNO ID: [id number] Author: Viktor Jaramillo MD Service: Infectious Disease [...] infection. 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 Mother provides most of the history and the patient occasionally answers. Apparently this ulcer has been there while in spite of various wound center attempts down in [place]. Apparently did not drain pus with a [...] tobacco: Never (more content not included)... Normal [facility] CONSULT PROGon 10-06-2022 CONSULT PROG HNO ID: [id number] Author: Edie Stringer RPh Service: Pharmacy Author [...] contact Edie Stringer (Pharmacist) at Ext # [phone] Age: [age] year old Allergies: ALLERGIES Allergen [...] No results found for: MARILURYLEE Edie Stringer [facility] NUTRITIONon 10-06-2022 NUTRITION HNO ID: [id number] Author: Evelyn Diego RD Service: Nutrition Therapy [...] bought her a chicken salad sandwich from [employer] and she ate all of it. Encouraged protein foods. Monitor and Evaluation: Meet greater than 75% of estimated needs, Monitor bowel function, Monitor labs, I/Os, vital signs, weight Discharge Recommendations: Diet Diet: Regular HPI: Juliette Crews is here from a [facility] where she has 24 hr care and an airflow bed. 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 She had an excision of a sacral pressure injury on 10/05/22. She started vancomycin on 10/05/22. ATB will be adjusted depending on if this is soft tissue infection of actual osteomyelitis of the sacrum. PAST MEDICAL HISTORY Diagnosis Date Newberry catheter at Hydrocephalus ([facility]) Living in assisted living [facility] Paraplegia ([facility]ERLY [facility]) Pressure injury of sacral region, stage 4 ([facility]ERLY [facility]) Self-catheterizes urinary bladder 4X/DAY Spina bifida ([facility]ERLY [facility]) USES COMPRESSION VEST UTI (lower urinary tract [...] October 06, 2022 TIME: 2:00 PM 1074 [facility] ALLIED HEALTHon 10-05-2022 ALLIED HEALTH HNO ID: [id number] Author: Chaplain Gris Service: Spiritual Care Author Type: Supervisor Research Kennel Type: Allied Health Filed: 10/05/2022 7:54 AM Note Text: SPIRITUAL CARE PROGRESS NOTE SERVICE DATE: 10/05/2022 SERVICE TIME: 7:10am As manager of global, visited with patient and loved ones in presurgery area. Listened empathetically and offered emotional and spiritual support. Prayed with patient and loved ones, per request. Informed patient and loved ones of 27/12 spiritual care. To contact the Spiritual Care Department: Please call [phone]. SIGNATURE: Chaplain Gris PATIENT NAME: Juliette Crews DATE: October 05, 2022 TIME: 7:52 AM PAGER/CONTACT #: [phone] [facility] ANES POSTPROC EVALon 023 ANES POSTPROC EVAL HNO ID: [id number] Author: Yamini Tavarez MD Service: Anesthesiology Author Type: Anesthesiologist Type: Anesthesia Postprocedure Evaluation Filed: 10/05/2022 2:41 PM Note Text: POST ANESTHESIA EVALUATION NOTE : 1975 Procedure Summary Date: 10/05/22 Room / Location: CO OR CO OR Anesthesia Start: 808 Anesthesia Stop: 1118 [...] October 05, 2022 TIME: 2:41 PM CSN: [id number] [facility] ANES PRE-OPon 10-05-2022 ANES PRE-OP HNO ID: [id number] Author: Yamini Tavarez MD Service: Anesthesiology Author [...] Problems GI (+) Gastroesophageal reflux disease - 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 Patient / Responsible Libertarian agrees to proceed: yes Patient / Surrogate [...] October 05, 2022 TIME: 7:54 AM CSN: [id number] [facility] BRIEF OP NOTon 10-05-2022 BRIEF OP NOT HNO ID: [id number] Author: Nawaf Quinn MD Service: Plastic Surgery Author Type: Physician Type: Brief Op Note Filed: 10/05/2022 11:45 AM Note Text: BRIEF OPERATIVE / PROCEDURE NOTE LOG ID: [id number] SURGERY/PROCEDURE DATE: 10/05/2022 INCISION/PROCEDURE START TIME: 8:35 AM INCISION CLOSE/PROCEDURE END TIME: 10:51 AM SURGEON(S)/PROCEDURALIST(S ) AND INDUSTRIAL SEWER(S): Surgeon(s) and Role: * Nawaf Quinn MD - Primary * Michael Deleon MD - Resident - Assisting Mold Maker Helper: Brenda Leong SA SURGERY/PROCEDURE(S): 1. Excision sacral pressure sore 21s01oa0 2. ATT 88u89pf ANESTHESIA: General FINDINGS: see dictation ESTIMATED BLOOD LOSS: 1000 mls SPECIMENS: sacral bone, sacral wound COMPLICATIONS: None DRAINS: Modified CLOSURE TECHNIQUE: Non-primary PRE-OP/PRE-PROCEDURE DIAGNOSIS: sacral pressure sore POST-OP/POST-PROCEDURE DIAGNOSIS: Same as Preop SIGNATURE: Nawaf Quinn MD PATIENT NAME: Juliette Crews DATE: October 05, 2022 TIME: 11:44 AM Normal [facility] Bacteria Spec Anaerobe Culto n 10-05-2022 Bacteria identified Anaer cx Nom (Unsp spec) Negative Normal [facility] Comment on above: Performed By: #### 1 1475-1, 635-3, 75767-3 #### [facility] CLIA [id number] [address] [place] [address] #### BACPCR #### [facility] CLIA [id number] [address] [place] [address] [place] Bacteria identified Anaer cx Nom (Unsp spec) Negative Normal [facility] Comment on above: Performed By: #### 1 1475-1, 54353-0, 635-3 #### [facility] CLIA [id number] [address] [place] [address] [place] Bacteria Tiss Culton 023 Bacteria identified Cx Nom (Tiss) CULTURE, TISSUE: No growth 5 days GRAM STAIN: No cells or organisms seen PLEASE NOTE CORRECTED GRAM STAIN. PREVIOULSY REPORTED MODERATE GRAM POSITIVE COCCI Normal [facility] Comment on above: Performed By: #### 1 1475-1, 635-3, 87207-7 #### [facility] CLIA [id number] [address] [place] #### BACPCR #### [facility] CLIA [id number] [address] [place] [address] [place] Bacteria identified Cx Nom (Tiss) CULTURE, TISSUE: No growth GRAM STAIN: No cells or organisms seen Normal [facility] Comment on above: Performed By: #### 1 1475-1, 36825-0, 635-3 #### [facility] CLIA [id number] [address] CONFIRM BLOOD TYPEon 023 ABO A Normal [facility] Comment on above: Order Comment: Speci men Type: BLOOD SPECIMENOrdering Facility: [facility] Address: [address] [place] [address] Performed By: #### 1 1475-1, 635-3, 12006-0 #### [facility] CLIA [id number] [address] #### BACPCR #### [facility] CLIA [id number] [address] [place] [address] [place] Rh Nom (Bld) Positive Normal [facility] Comment on above: Order Comment: Speci men Type: BLOOD SPECIMENOrdering Facility: [facility] Address: [address] [place] [address] Performed By: #### 1 1475-1, 635-3, 50542-7 #### [facility] CLIA [id number] [address] #### BACPCR #### [facility] CLIA [id number] [address] [place] HISTORY PHYSICALon HISTORY PHYSICAL HNO ID: [id number] Author: Shell Ruth PA-C Service: Plastic Surgery Author Type: Physician Service Tech Type: HANDP Filed: 10/05/2022 7:55 AM Note [...] October 05, 2022 TIME: 7:54 AM Normal [facility] Microorganism Spec Culton Microorganism identified Cx Nom (Unsp spec) CULTURE, FUNGAL: No Fungus isolated after 28 days FUNGAL SMEAR: No fungus seen Normal [facility] Comment on above: Performed By: #### 1 1475-1, 635-3, 18120-4 #### [facility] CLIA [id number] [address] [place] #### BACPCR #### [facility] CLIA [id number] [address] [place] [address] [place] Microorganism identified Cx Nom (Unsp spec) CULTURE, AFB: No Acid Fast Bacilli isolated after 42 days AFB STAIN: No acid fast bacilli seen by flurochrome stain [facility] Comment on above: Performed By: #### 1 1475-1, 635-3, 28805-6 #### [facility] CLIA [id number] [address] [place] #### BACPCR #### [facility] CLIA [id number] [address] [place] [address] [place] Microorganism identified Cx Nom (Unsp spec) CULTURE, FUNGAL: No Fungus isolated after 28 days FUNGAL SMEAR: No fungus seen [facility] Comment on above: Performed By: #### 1 1475-1, 37801-6, 635-3 #### [facility] CLIA [id number] [address] [place] Microorganism identified Cx Nom (Unsp spec) CULTURE, AFB: No Acid Fast Bacilli isolated after 42 days AFB STAIN: No acid fast bacilli seen by flurochrome stain [facility] Comment on above: Performed By: #### 1 1475-1, 48784-7, 635-3 #### [facility] [id number] [address] [facility] OPERATIVE NOon 10-05-2022 OPERATIVE NO HNO ID: [id number] Author: Nawaf Quinn MD Service: Plastic Surgery Author Type: Physician Type: Operative Report Filed: 10/11/2022 11:39 AM Note Text: OPERATIVE / PROCEDURE NOTE LOG ID: [id number] SURGERY/PROCEDURE DATE: 10/05/2022 INCISION/PROCEDURE START TIME: 8:35 AM INCISION CLOSE/PROCEDURE END TIME: 10:51 AM SURGEON(S)/PROCEDURALIST(S ) AND INDUSTRIAL SEWER(S): Surgeon(s) and Role: * Nawaf Quinn MD - Primary * Michael Deleon MD - Resident - Assisting Mold Maker Helper: Brenda Leong SA SURGERY/PROCEDURE(S): 1. Excision sacral pressure sore 83y76ic9 2. ATT 61e80xh ANESTHESIA: General FINDINGS: see dictation ESTIMATED BLOOD [...] done using a 2-0 Vicryl. A 19 Tajik drain was placed prior to definitive closure. [...] was present for the entire procedure. Normal [facility] SURGICAL PATHOLOGYon 023 CASE REPORT Normal [facility] Comment on above: Order Comment: Speci men Type: TISSUE SPECIMENOrdering Facility: [facility] Address: [address] [place] [address] [place] [address] Result Comment: Surg [facility] Pathology Report Case: [id number] Authorizing Provider: Nawaf Quinn MD Collected: 10/05/2022 08:53 AM Ordering Location: [facility] Received: 10/05/2022 01:06 PM Pathologist: Karly Berumen MD Specimen: SOFT TISSUE, sacral wound for permanent Performed By: #### 1 1475-1, 635-3, 12534-5 #### [facility] CLIA [id number] [address] [place] [address] [place] [facility] #### BACPCR #### [facility] CLIA [id number] [address] [place] [address] [place] CLINICAL HISTORY Normal [facility] Comment on above: Order Comment: Speci men Type: TISSUE SPECIMENOrdering Facility: [facility] Address: [address] [place] [address] Result Comment: Pre- op diagnosis: Pressure injury of sacral region, stage 4 (HCC) [L89.154] Performed By: #### 1 1475-1, 635-3, 06816-6 #### [facility] CLIA [id number] [address] [place] [address] [place] [facility] #### BACPCR #### [facility] CLIA [id number] [address] [place] [address] [place] FINAL DIAGNOSIS Normal [facility] Comment on above: Order Comment: Speci men Type: TISSUE SPECIMENOrdering Facility: [facility] Address: [address] [place] [address] Result Comment: A. S acral wound, excision: -- Skin and underlying subcutaneous tissue with ulceration, fibrinoid necrosis, fibrosis and chronic inflammation. Performed By: #### 1 1475-1, 635-3, 02877-1 #### [facility] CLIA [id number] [address] [place] #### BACPCR #### [facility] CLIA [id number] [address] FINAL PERFORMING LAB Normal [facility] Comment on above: Order Comment: Speci men Type: TISSUE SPECIMENOrdering Facility: [facility] Address: [address] [place] [address] Result Comment: Diag nostic interpretation performed at [facility], [address] [place] [address] CLIA# [id number] Optician Apprentice Dispensing: Cecil Sainz M.D. Performed By: #### 1 1475-1, 635-3, 69801-1 #### [facility] CLIA [id number] [address] [place] [address] #### BACPCR #### [facility] CLIA [id number] [address] [place] [address] GROSS DESCRIPTION A. SOFT TISSUE Normal [facility] Comment on above: Order Comment: Speci men Type: TISSUE SPECIMENOrdering Facility: [facility] Address: [address] [place] [address] Result Comment: A. R eceived in formalin [...] specimen displays a white fibrous cut surface. Lead Pharmacy Technician sections are submitted in formalin in 2 cassettes. Gross examination performed at [facility], [address] [place] [address] KVB October 05, 2022 1:33 PM Performed By: #### 1 1475-1, 635-3, 68843-6 #### [facility] CLIA [id number] [address] [place] [address] #### BACPCR #### [facility] CLIA [id number] [address] [place] [address] [place] TYPE + SCREENon 10-05-2022 ABO A Normal [facility] Comment on above: Order Comment: Speci men Type: BLOOD SPECIMENOrdering Facility: [facility] Address: [address] [place] [address] Performed By: #### 1 1475-1, 635-3, 75972-2 #### [facility] CLIA [id number] [address] [place] [address] [place] #### BACPCR #### [facility] CLIA [id number] [address] [place] [address] [place] HISTORICAL AB SCR STATUS Negative Normal [facility] Comment on above: Order Comment: Speci men Type: BLOOD SPECIMENOrdering Facility: [facility] Address: [address] [place] [address] Performed By: #### 1 1475-1, 635-3, 10280-8 #### [facility] CLIA [id number] [address] [place] #### BACPCR #### [facility] CLIA [id number] [address] [place] [address] [place] Rh Nom (Bld) Positive Normal [facility] Comment on above: Order Comment: Speci men Type: BLOOD SPECIMENOrdering Facility: [facility] Address: [address] [place], [place] [address] Performed By: #### 1 1475-1, 635-3, 98115-7 #### [facility] CLIA [id number] [address] [place] [address] [place] #### BACPCR #### [facility] CLIA [id number] [address] [place] [address] [place] TYPE AND SCREEN EXPIRATION 10/08/2022 23:59 Normal [facility] Comment on above: Order Comment: Speci men Type: BLOOD SPECIMENOrdering Facility: [facility] Address: [address] [place] [address] Performed By: #### 1 1475-1, 635-3, 53756-8 #### [facility] CLIA [id number] [address] [place] [address] [place] #### BACPCR #### [facility] CLIA [id number] [address] [place] UNIVERSAL BACTERIAL PCRon Bacteria identified based on 16S rRNA gene Sequencing Nom (Unsp spec) Mixed Sequences Detected by 16S rDNA gene sequencing. Unable to identify the bacterial DNA in the sample Abnormal [facility] Comment on above: Order Comment: Speci men Type: SPECIMEN FROM BONE Ordering Facility: [facility] Address: [address] [place] [address] Performed By: #### 1 1475-1, 635-3, 00370-3 #### [facility] CLIA [id number] [address] [place] [address] [place] #### BACPCR #### [facility] CLIA [id number] [address] [place] [address] [place] Bacteria identified based on 16S rRNA gene Sequencing Nom (Unsp spec) Detected Normal [facility] Comment on above: Order Comment: Speci men Type: TISSUE SPECIMENOrdering Facility: [facility] Address: [address] [address] Performed By: #### 1 1475-1, 635-3, 68810-9 #### [facility] CLIA [id number] [address] [place] #### BACPCR #### [facility] CLIA [id number] [address] [place] Carlos 10-04-2022 VANESSAN Telephone (PLHWBA) -- JULIETTE CREWS ([id number]) 1975 F Date Time Provider Department 10/04/22 [...] Date Reviewed: 09/28/2022 Reviewed by: Mayi Grimes APRN.REGULATORY AFFAIRS INTERN - Fully Assessed Reason for Visit: Patient [...] As Of Date 10/04/2022 Noted Resolved S/P 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 SPILL RESPONSE TECHNICIAN shunt [Z98.2] 03/12/2013 Hydrocephalus [G91.9] 03/12/2013 Edema of lower extremity [R60.0] 09/28/2022 Gastroesophageal reflux disease [K21.9] 10/12/2021 Encounter Status:Closed by ORALIA BURNETT on 10/06/22 Normal [facility] Bilirub Conj SerPl-mCncon Bilirubin.conjugated [Mass/Vol] mg/dL Normal <0.2 [facility] Comment on above: Order Comment: Speci men Type: BLOOD SPECIMENOrdering Facility: [facility] Address: [address] [place], [place] [address] [address] Performed By: #### 1 1475-1, 22469-1, 635-3 #### [facility] CLIA [id number] [address] CBC W Auto Differential pane l (Bld)on 09-28-2022 Basophils (Bld) [#/Vol] 0.06 10*3/uL Normal <0.11 [facility] Comment on above: Order Comment: Speci men Type: BLOOD SPECIMENOrdering Facility: [facility] Address: [address] [address] Performed By: #### 1 1475-1, 63-3, 26098-6 #### [facility] CLIA [id number] [address] [place] [address] #### BACPCR #### [facility] CLIA [id number] [address] [place] [address] Basophils/100 WBC (Bld) 0.6 % Normal [facility] Comment on above: Order Comment: Speci men Type: BLOOD SPECIMENOrdering Facility: [facility] Address: [address] [address] Performed By: #### 1 1475-1, 63-3, 68914-5 #### [facility] CLIA [id number] [address] [place] [address] #### BACPCR #### [facility] CLIA [id number] [address] [place] [address] [place] Differential cell count method Nom (Bld) Auto Normal [facility] Comment on above: Order Comment: Speci men Type: BLOOD SPECIMENOrdering Facility: [facility] Address: [address] Performed By: #### 1 1475-1, 635-3, 76104-4 #### [facility] CLIA [id number] [address] [place] [address] [place] #### BACPCR #### [facility] CLIA [id number] [address] [place] [address] [place] Eosinophils (Bld) [#/Vol] 0.26 10*3/uL Normal <0.46 [facility] Comment on above: Order Comment: Speci men Type: BLOOD SPECIMENOrdering Facility: [facility] Address: [address] [address] Performed By: #### 1 1475-1, 635-3, 62680-2 #### [facility] CLIA [id number] [address] [place] #### BACPCR #### [facility] CLIA [id number] [address] [place] [address] [place] Eosinophils/100 WBC (Bld) 2.5 % Normal [facility] Comment on above: Order Comment: Speci men Type: BLOOD SPECIMENOrdering Facility: [facility] Address: [address] [place] [address] Performed By: #### 1 1475-, 63-3, 21459-4 #### [facility] CLIA [id number] [address] [place] #### BACPCR #### [facility] CLIA [id number] [address] [place] [address] [place] Erythrocyte distribution width (RBC) [Ratio] 15.0 % Normal 11.5-15.0 [facility] Comment on above: Order Comment: Speci men Type: BLOOD SPECIMENOrdering Facility: [facility] Address: [address] [place] [address] Performed By: #### 1 1475-1, 63-3, 23390-1 #### [facility] CLIA [id number] [address] [place] #### BACPCR #### [facility] CLIA [id number] [address] [place] [address] [place] Hematocrit (Bld) [Volume fraction] 38.8 % Normal 36.0-46.0 [facility] Comment on above: Order Comment: Speci men Type: BLOOD SPECIMENOrdering Facility: [facility] Address: [address] [address] Performed By: #### 1 1475-1, 635-3, 54269-5 #### [facility] CLIA [id number] [address] [place] #### BACPCR #### [facility] CLIA [id number] [address] [place] [address] [place] Hemoglobin (Bld) [Mass/Vol] 12.1 g/dL Normal 11.5-15.5 [facility] Comment on above: Order Comment: Speci men Type: BLOOD SPECIMENOrdering Facility: [facility] Address: [address] Performed By: #### 1 1475-, 63-3, 94641-1 #### [facility] CLIA [id number] [address] [place] #### BACPCR #### [facility] CLIA [id number] [address] [place] [address] [place] Immature granulocytes (Bld) [#/Vol] 10*3/uL Normal <0.10 [facility] Comment on above: Order Comment: Speci men Type: BLOOD SPECIMENOrdering Facility: [facility] Address: [address] Performed By: #### 1 1475-1, 63-3, 09071-0 #### [facility] CLIA [id number] [address] [place] #### BACPCR #### [facility] CLIA [id number] [facility] [place] Immature granulocytes/100 WBC (Bld) 0.2 % Normal [facility] Comment on above: Order Comment: Speci men Type: BLOOD SPECIMENOrdering Facility: [facility] Address: [address] [place] [address] Performed By: #### 1 1475-1, 635-3, 88755-8 #### [facility] CLIA [id number] 1 [place] [address] [place] #### BACPCR #### [facility] CLIA [id number] [address] [place] [address] [place] Lymphocytes (Bld) [#/Vol] 2.64 10*3/uL Normal 1.00-4.00 [facility] Comment on above: Order Comment: Speci men Type: BLOOD SPECIMENOrdering Facility: [facility] Address: [address] [place] [address] Performed By: #### 1 1475-1, 63-3, 48559-1 #### [facility] CLIA [id number] 1 [place] [address] [place] #### BACPCR #### [facility] CLIA [id number] [address] [place] [address] [place] Lymphocytes/100 WBC (Bld) 25.6 % Normal [facility] Comment on above: Order Comment: Speci men Type: BLOOD SPECIMENOrdering Facility: [facility] Address: [address] [place], [place] [address] Performed By: #### 1 1475-1, 635-3, 37657-2 #### [facility] CLIA [id number] 1 [place] [address] [place] #### BACPCR #### [facility] CLIA [id number] [facility] [place] [address] [place] MCH (RBC) [Entitic mass] 29.2 pg Normal 26.0-34.0 [facility] Comment on above: Order Comment: Speci men Type: BLOOD SPECIMENOrdering Facility: [facility] Address: [address] [address] Performed By: #### 1 1475-1, 63-3, 01679-8 #### [facility] CLIA [id number] [address] #### BACPCR #### [facility] CLIA [id number] [address] [place] [address] [place] MCHC (RBC) [Mass/Vol] 31.2 g/dL Normal 30.5-36.0 [facility] Comment on above: Order Comment: Speci men Type: BLOOD SPECIMENOrdering Facility: [facility] Address: [address] [address] Performed By: #### 1 1475, , 77030-2 #### [facility] CLIA [id number] [address] [place] [address] #### BACPCR #### [facility] CLIA [id number] [address] [place] [address] [place] MCV (RBC) [Entitic vol] 93.5 fL Normal 80.0-100.0 [facility] Comment on above: Order Comment: Speci men Type: BLOOD SPECIMENOrdering Facility: [facility] Address: [address] Performed By: #### 1 1475-1, 63-3, 84579-9 #### [facility] CLIA [id number] [address] [place] #### BACPCR #### [facility] CLIA [id number] [facility] [place] [address] [place] Monocytes (Bld) [#/Vol] 0.50 10*3/uL Normal <0.87 [facility] Comment on above: Order Comment: Speci men Type: BLOOD SPECIMENOrdering Facility: [facility] Address: [address] Performed By: #### 1 1475-1, 63-3, 66869-9 #### [facility] CLIA [id number] 1 [place] [address] [place] #### BACPCR #### [facility] CLIA [id number] [address] [place] Monocytes/100 WBC (Bld) 4.8 % Normal [facility] Comment on above: Order Comment: Speci men Type: BLOOD SPECIMENOrdering Facility: [facility] Address: [address] Performed By: #### 1 1475-, 6310-06, 01800-8 #### [facility] CLIA [id number] [address] [place] [address] #### BACPCR #### [facility] CLIA [id number] [address] [place] [address] [place] Neutrophils (Bld) [#/Vol] 6.83 10*3/uL Normal 1.45-7.50 [facility] Comment on above: Order Comment: Speci men Type: BLOOD SPECIMENOrdering Facility: [facility] Address: [address] Performed By: #### 1 1475-, 6310-06, 41985-1 #### [facility] CLIA [id number] [address] [place] [address] [place] #### BACPCR #### [facility] CLIA [id number] [address] [place] [address] [place] Neutrophils/100 WBC (Bld) 66.3 % Normal [facility] Comment on above: Order Comment: Speci men Type: BLOOD SPECIMENOrdering Facility: [facility] Address: [address] [place] [address] Performed By: #### 1 1475-1, 633, 71593-5 #### [facility] CLIA [id number] [address] #### BACPCR #### [facility] CLIA [id number] [address] Nucleated RBC (Bld) [#/Vol] 10*3/uL Normal <0.01 [facility] Comment on above: Order Comment: Speci men Type: BLOOD SPECIMENOrdering Facility: [facility] Address: [address] [address] Performed By: #### 1 1475, , 44288-2 #### [facility] CLIA [id number] [address] #### BACPCR #### [facility] CLIA [id number] [address] [place] [address] [place] [facility] Nucleated RBC/100 WBC (Bld) [Ratio] 0.0 /100 WBC Normal [facility] Comment on above: Order Comment: Speci men Type: BLOOD SPECIMENOrdering Facility: [facility] Address: [address] [address] Performed By: #### 1 1475, , 47866-7 #### [facility] CLIA [id number] [address] #### BACPCR #### [facility] CLIA [id number] [facility] [address] STATES [facility] Platelet mean volume (Bld) [Entitic vol] 9.9 fL Normal 9.0-12.7 [facility] Comment on above: Order Comment: Speci men Type: BLOOD SPECIMENOrdering Facility: [facility] Address: [address] [address] Performed By: #### 1 1475-1, 63-3, 54408-5 #### [facility] CLIA [id number] [address] [place] #### BACPCR #### [facility] CLIA [id number] [address] [place] [address] [place] Platelets (Bld) [#/Vol] 412 10*3/uL High 150-400 [facility] Comment on above: Order Comment: Speci men Type: BLOOD SPECIMENOrdering Facility: [facility] Address: [address] [address] Performed By: #### 1 1475-1, 635-3, 63405-1 #### [facility] CLIA [id number] [address] #### BACPCR #### [facility] CLIA [id number] [address] [place] [address] [place] RBC (Bld) [#/Vol] 4.15 10*6/uL Normal 3.90-5.20 [facility] Comment on above: Order Comment: Speci men Type: BLOOD SPECIMENOrdering Facility: [facility] Address: [address] [place] [address] Performed By: #### 1 1475-1, 63-3, 23273-7 #### [facility] CLIA [id number] [address] [place] #### BACPCR #### [facility] CLIA [id number] [address] [place] [address] [place] WBC (Bld) [#/Vol] 10.31 10*3/uL Normal 3.70-11.00 [facility] Comment on above: Order Comment: Speci men Type: BLOOD SPECIMENOrdering Facility: [facility] Address: [address] [address] Performed By: #### 1 1475-1, 63-3, 17372-1 #### [facility] CLIA [id number] [address] #### BACPCR #### [facility] CLIA [id number] [address] [facility] DESK [id number] Comprehensive metabolic 2000 panelon 09-28-2022 Albumin [Mass/Vol] 4.0 g/dL Normal 3.9-4.9 [facility] Comment on above: Order Comment: Speci men Type: BLOOD SPECIMENOrdering Facility: [facility] Address: [address] [address] Performed By: #### 1 1475-1, 38052-1, 635-3 #### [facility] CLIA [id number] [address] ALP [Catalytic activity/Vol] 104 U/L Normal 34-123 [facility] Comment on above: Order Comment: Speci men Type: BLOOD SPECIMENOrdering Facility: [facility] Address: [address] [address] Performed By: #### 1 1475-1, 47229-6, 635-3 #### [facility] CLIA [id number] [address] ALT With P-5'-P [Catalytic activity/Vol] 17 U/L Normal 7-38 [facility] Comment on above: Order Comment: Speci men Type: BLOOD SPECIMENOrdering Facility: [facility] Address: [address] [address] Performed By: #### 1 1475-1, 65134-7, 635-3 #### [facility] CLIA [id number] [address] Anion gap [Moles/Vol] 11 mmol/L Normal 9-18 [facility] Comment on above: Order Comment: Speci men Type: BLOOD SPECIMENOrdering Facility: [facility] Address: [address] [address] Performed By: #### 1 1475-1, 68437-0, 635-3 #### [facility] CLIA [id number] 1 [place] [address] [place] AST With P-5'-P [Catalytic activity/Vol] 15 U/L Normal 13-35 [facility] Comment on above: Order Comment: Speci men Type: BLOOD SPECIMENOrdering Facility: [facility] Address: [address] [place] [address] Performed By: #### 1 1475-1, 04601-1, 635-3 #### [facility] CLIA [id number] [address] [place] Bilirubin [Mass/Vol] mg/dL Low 0.2-1.3 [facility] Comment on above: Order Comment: Speci men Type: BLOOD SPECIMENOrdering Facility: [facility] Address: [address] [place] [address] Performed By: #### 1 1475-1, 24926-4, 64-3 #### [facility] CLIA [id number] 1 [place] [address] [place] Calcium [Mass/Vol] 10.1 mg/dL Normal 8.5-10.2 [facility] Comment on above: Order Comment: Speci men Type: BLOOD SPECIMENOrdering Facility: [facility] Address: [address] [place] [address] Performed By: #### 1 1475-1, 11471-6, 635-3 #### [facility] CLIA [id number] 1 [place] [address] [place] Chloride [Moles/Vol] 100 mmol/L Normal 97-105 [facility] Comment on above: Order Comment: Speci men Type: BLOOD SPECIMENOrdering Facility: [facility] Address: [address] [place] [address] Performed By: #### 1 1475-1, 11265-8, 635-3 #### [facility] CLIA [id number] 1 [place] [address] [place] CO2 [Moles/Vol] 28 mmol/L Normal 22-30 [facility] Comment on above: Order Comment: Speci men Type: BLOOD SPECIMENOrdering Facility: [facility] Address: [address] [place] [address] Performed By: #### 1 1475-1, 57348-6, 635-3 #### [facility] CLIA [id number] [address] [place] Creatinine [Mass/Vol] 0.48 mg/dL Low 0.58-0.96 [facility] Comment on above: Order Comment: Speci men Type: BLOOD SPECIMENOrdering Facility: [facility] Address: [address] [place] [address] Performed By: #### 1 1475-1, 77126-2, 635-3 #### [facility] CLIA [id number] [address] OF [facility] ESTIMATED GLOMERULAR FILTRATION RATE 118 mL/min/1.73m??? Normal >=60 [facility] Comment on above: Order Comment: Speci men Type: BLOOD SPECIMENOrdering Facility: [facility] Address: [address] [place] [address] Result Comment: Priya mated Glomerular Filtration Rate [...] actual GFR. Performed By: #### 1 1475-1, 22390-6, 635-3 #### [facility] CLIA [id number] [address] [place] Glucose [Mass/Vol] 90 mg/dL Normal 74-99 [facility] Comment on above: Order Comment: Speci men Type: BLOOD SPECIMENOrdering Facility: [facility] Address: [address] [place] [address] Result Comment: The [place] [employer] (ADA) provides guidance for cutoff [...] Standards of Medical Care in Diabetes 2016, [place] [employer]. Diabetes Care. 2016.39(Suppl 1). Performed By: #### 1 1475-1, 22567-8, 635-3 #### [facility] CLIA [id number] 1 [place] [address] [place] Potassium [Moles/Vol] 4.7 mmol/L Normal 3.7-5.1 [facility] Comment on above: Order Comment: Audi men Type: BLOOD SPECIMENOrdering Facility: [facility] Address: [address] [address] Performed By: #### 1 1475-1, 00075-9, 635-3 #### [facility] CLIA [id number] 1 [place] [address] [place] Protein [Mass/Vol] 7.2 g/dL Normal 6.3-8.0 [facility] Comment on above: Order Comment: Jeremiahi marta Type: BLOOD SPECIMENOrdering Facility: [facility] Address: [address] [address] Performed By: #### 1 1475-1, 29694-4, 635-3 #### [facility] CLIA [id number] 1 [place] [address] [place] Sodium [Moles/Vol] 139 mmol/L Normal 136-144 [facility] Comment on above: Order Comment: Jeremiahi men Type: BLOOD SPECIMENOrdering Facility: [facility] Address: [address] [address] Performed By: #### 1 1475-1, 22906-4, 635-3 #### [facility] CLIA [id number] 1 [place] [address] [place] Urea nitrogen [Mass/Vol] 14 mg/dL Normal 7-21 [facility] Comment on above: Order Comment: Speci men Type: BLOOD SPECIMENOrdering Facility: [facility] Address: [facility] [place] [id number] Performed By: #### 1 1475-1, 08591-7, 635-3 #### [facility] CLIA [id number] 1 [place] [address] [place] HISTORY PHYSICALon HISTORY PHYSICAL HNO ID: [id number] Author: Mayi Grimes APRN.REGULATORY AFFAIRS INTERN Service: ? 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 Pt presents with mother and caregiver for PST for OR 10/05/2022 for excision pressure ulcer sacral with flap or skin graft closure with Dr Urbina. REVIEW OF SYSTEMS: General: No weight loss, malaise or fevers. Negative for: unintentional weight change, malaise and fever. Neurological: Hydrocephalus with EMERGENCY SPILL RESPONSE TECHNICIAN shunt Positive for: paraplegia. Negative for: headaches [...] comments fo (more content not included)... Normal [facility] PT panel Coag (PPP)on 2022 INR Coag (PPP) [Relative time] 1.0 {INR} Normal 0.9-1.3 [facility] Comment on above: Order Comment: Speci men Type: BLOOD SPECIMENOrdering Facility: [facility] Address: [address] [place] [address] [place] [address] Result Comment: Lucia min K Antagonist (VKA) Therapeutic Range: INR 2 to 3 (Target INR of 2.5) Note: For patients treated with VKA drugs, such as warfarin, the [place] [employer] 2012 Guideline recommends [...] Chest 2012, 141:7S-47S Yudith LYON, et al. [facility] 2017, 70: 252-289 Performed By: #### 1 1475-1, 635-3, 23322-8 #### [facility] CLIA [id number] [address] [place] #### BACPCR #### [facility] CLIA [id number] [address] [place] PT Coag (PPP) [Time] 9.4 s Normal <13.1 [facility] Comment on above: Order Comment: Speci men Type: BLOOD SPECIMENOrdering Facility: [facility] Address: [address] [address] Performed By: #### 1 1475-1, 63-3, 11200-7 #### [facility] CLIA [id number] [address] STATES OF [facility] #### BACPCR #### [facility] CLIA [id number] [address] [place] Prealbumin [Mass/Vol]on 09-05 Prealbumin Nephelometry [Mass/Vol] 23 mg/dL Normal 17-36 [facility] Comment on above: Order Comment: Speci men Type: BLOOD SPECIMENOrdering Facility: [facility] Address: [address] [address] Performed By: #### 1 1475-1, 87665-0, 63-3 #### [facility] CLIA [id number] [address] [place] aPTT PPPon 09-28-2022 aPTT Coag (PPP) [Time] 25.9 s Normal 23.0-32.4 [facility] Comment on above: Order Comment: Speci men Type: BLOOD SPECIMENOrdering Facility: [facility] Address: [address] [address] Performed By: #### 1 1475-1, 635-3, 66916-4 #### [facility] CLIA [id number] [address] [place] [address] [place] #### BACPCR #### [facility] CLIA [id number] [address] [address] [place] Carlos 08-19-2022 CNPN Telephone (PLHWBA) -- JULIETTE CREWS ([id number]) 1975 F Date Time Provider Department 08/19/22 [facility] During your visit today, we recorded the following information about you: Nunu Alex LPN 08/19/2022 11:45 AM Signed Hi, Patient scheduled for surgery on October 05. 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 During your visit today, we recorded the following information about you: Weight Height 68 kg 1.372 m Nawaf Quinn MD 08/05/2022 12:10 PM Signed Nawaf Quinn [id number] [facility] [address] [place] [address] Plastic Surgery New Office Note CC: Wound [...] Past Histories independently gathered by the clinical technical sales support specialist and the remaining scribed note accurately describes my personal service to the patient. Surgery Scheduling Juliette Francisco Eleonora 1975 Procedure: excision sacral pressure sore, immediate reconstruction with gluteal rotations or v-y advancement flap OR Time Needed: 3 hrs [place] or [facility] Equipment Request: clinitron bed, ronguers, rasps, [...] [L89.154] Order(s):CBC + DIFF [SQCBCDIF] Order #: [id number] FUTURE COMP METABOLIC PANEL [SQCMP] Order #: [id number] FUTURE HEPATIC FUNCTION PNL [SQHFP] Order #: [id number] FUTURE PREALBUMIN BLD [SQPREALB] Order #: [id number] FUTURE PROTHROMBIN TIME/PT [SQPT] Order #: [id number] FUTURE ACTIVATED PTT [SQPTT] Order #: [id number] FUTURE Prescriptions as of 08/05/2022 - sulfamethoxazole-trimethop rim (BACTRIM DS,SEPTRA DS) 800-160 mg per tablet Take 1 tablet by mouth twice daily. - Calcium Carbonate 1,000 mg (more content not included)... Normal [facility] Bacteria identified Cx Nom ( Wound)Ordered By: Dr. Kinney on 07-26-2022 Wound Culture Proteus mirabilis [facility] Wound Culture Staphylococcus aureus [facility] Anaerobic cultureOrdered By: Dr. Kinney on 07-25-2022 Bacteria identified Anaer cx Nom (Unsp spec) No anaerobic bacteria isolated. [facility] Gram stain for investigation of transfusion reactionOrdered By: Dr. Kinney on 07-23-2022 Microscopic observation Gram stain Nom (Unsp spec) [facility] Anaerobic cultureOrdered By: Dr. Kinney on 06-28-2022 Bacteria identified Anaer cx Nom (Unsp spec) No anaerobic bacteria isolated. [facility] Bacteria identified Cx Nom ( Wound)Ordered By: Dr. Kinney on 06-27-2022 Wound Culture Proteus mirabilis [facility] Wound Culture Staphylococcus aureus [facility] Wound Culture Corynebacterium striatum [facility] Gram stain for investigation of transfusion reactionOrdered By: Dr. Kinney on 06-24-2022 Microscopic observation Gram stain Nom (Unsp spec) [facility] Absolute lymphocyte countOrd ered By: Dr. Kinney on 06-02-2022 Lymphocytes Auto (Unsp spec) [#/Vol] 2.34 10*3/uL 0.83-4.51 [facility] Basophil percentageOrdered B y: Dr. Kinney on 06-02-2022 Basophils/100 WBC (Bld) 0.4 % 0-1 [facility] Eosinophils/100 WBC (Bld) 2.1 % 0-5 [facility] Neutrophils (Bld) [#/Vol] 9.6 10*3/uL 2.0-7.7 [facility] Neutrophils/100 WBC (Bld) 73.8 % 47-70 [facility] WBC (Bld) [#/Vol] 13.0 10*3/uL 4.4-11.0 [facility] Blood erythrocytes count (nu mber/volume)Ordered By: Dr. Kinney on 06-02-2022 RBC (Bld) [#/Vol] 4.24 10*6/uL 4.2-5.4 [facility] Blood hemoglobin measurement (mass/volume)Ordered By: Dr. Kinney on 06-02-2022 Hemoglobin (Bld) [Mass/Vol] 12.6 g/dL 12.0-15.0 [facility] Blood lymphocytes/100 leukoc ytesOrdered By: Dr. Kinney on 06-02-2022 Lymphocytes/100 WBC (Bld) 18.0 % 19-41 [facility] Blood monocytes/100 leukocyt esOrdered By: Dr. Kinney on 06-02-2022 Monocytes/100 WBC (Bld) 5.3 % 0-10 [facility] Blood platelet mean volumeOr dered By: Dr. Kinney on 06-02-2022 Platelet mean volume (Bld) [Entitic vol] 9.3 fL 6.2-12.0 [facility] Determination of erythrocyte mean corpuscular volume (MCV)Ordered By: Dr. Kinney on 06-02-2022 MCV (RBC) [Entitic vol] 91.3 fL 81-99 [facility] Erythrocyte sedimentation ra teOrdered By: Dr. Kinney on 06-02-2022 ESR (Bld) [Velocity] 97 mm/h 0-30 [facility] Hematocrit Auto (Bld) [Volum e fraction]Ordered By: Dr. Kinney on 06-02-2022 Hematocrit (Bld) [Volume fraction] 38.7 % 37-47 [facility] Laboratory - Hematology and Cell countsOrdered By: Dr. Kinney on 06-02-2022 Erythrocyte distribution width (RBC) [Entitic vol] 48.2 fL 35.1-43.9 [facility] Erythrocyte distribution width (RBC) [Ratio] 14.6 % 11.6-14.6 [facility] Immature granulocytes/100 WBC (Bld) 0.400 % 0.0-0.9 [facility] Comment on above: IG% - Immature Granu locytes (promyelocytes, myelocytes and metamyelocytes) > 1% indicates that a LEFT SHIFT is Present. MCH (RBC) [Entitic mass] 29.7 pg 27.0-32.0 [facility] Nucleated RBC/100 WBC (Bld) [Ratio] 0 % 0-5 [facility] MCHC Auto (RBC) [Mass/Vol]Or dered By: Dr. Kinney on 06-02-2022 MCHC (RBC) [Mass/Vol] 32.6 g/dL 32-36 [facility] Platelets bldOrdered By: Dr. Kinney on 06-02-2022 Platelets (Bld) [#/Vol] 442 10*3/uL 150-450 [facility] Serum or plasma C reactive p rotein measurement (mass/volume)Ordered By: Dr. Kinney on 06-02-2022 CRP [Mass/Vol] 53.50 mg/L 0.0-3.0 [facility] Comment on above: C-Reactive Protein ( CRP) provides useful information for thediagnosis, therapy and monitoring of inflammatory processesand associated diseases. For the evaluation of Relative Riskfor Cardiovascular Disease, a High Sensitivity CRP (HSCRP)should be ordered. Serum or plasma transthyreti n measurement (mass/volume)Ordered By: Dr. Kinney on 06-02-2022 Prealbumin [Mass/Vol] 18.7 mg/dL 20.0-40.0 [facility] Bacteria identified Anaer cx Nom (Unsp spec)Ordered By: Dr. Kinney on 06-01-2022 Anaerobic Culture Anaerobic cocci [facility] Bacteria identified Cx Nom ( Wound)Ordered By: Dr. Kinney on 05-30-2022 Wound Culture Staphylococcus aureus [facility] Wound Culture Corynebacterium striatum [facility] Gram stain for investigation of transfusion reactionOrdered By: Dr. Kinney on 05-27-2022 Microscopic observation Gram stain Nom (Unsp spec) [facility] Basophil percentageon 2021 Chloride [Moles/Vol] 102 mmol/L 98-107 [facility] Work Phone: Glucose [Mass/Vol] 122 mg/dL 74-106 [facility] Work Phone: Comment on above: Fasting Glucose resu lt from 100 to 125 mg/dL suggests IMPAIRED HOMEOSTASIS per A.D.A. criteria. Potassium [Moles/Vol] 3.4 mmol/L 3.5-5.1 [facility] Work Phone: Sodium [Moles/Vol] 139 mmol/L 136-145 [facility] Work Phone: Laboratory - Chemistry and C hemistry - challengeon 10-12-2021 CO2 [Moles/Vol] 33.0 mmol/L 21.0-32.0 [facility] Work Phone: Urea nitrogen/Creatinine [Mass ratio] 16.2 mg/mg 10-20 [facility] Work Phone: No Panel Informationon 10-12 Estimated GFR (MDRD) Amer 151 mL/min >60 [facility] Work Phone: Comment on above: GFR Calc Estimated GFR (MDRD) Non-Af Amer 125 mL/min >60 [facility] Work Phone: Comment on above: Non- GFR Calc Serum or plasma calcium rodger urement (mass/volume)on 10-12-2021 Calcium [Mass/Vol] 9.3 mg/dL 8.5-10.1 [facility] Work Phone: Serum or plasma creatinine m easurement (mass/volume)on 10-12-2021 Creatinine [Mass/Vol] 0.56 mg/dL 0.55-1.02 [facility] Work Phone: Comment on above: The validity of the calculated GFR & GFRAA in patients over 70 years has not been determined. Clinical correlation is essential. Serum or plasma urea nitroge n measurement (mass/volume)on 10-12-2021 Urea nitrogen [Mass/Vol] 9 mg/dL 7-18 [facility] Work Phone: Thin prep Papanicolaou smear with manual screeningon 10-12-2021 Thin prep Papanicolaou smear with manual screening 4 5-15 [facility] Work Phone: NM RENAL STATIC & FUNCTIONon [...] Dr. Praneeth Thomas at 11/25/2017 14:50 Normal [facility] Progress Noteon 11-25-2017 [employer] Authentication Interface Message Text Juliette Crews is [...] MD or Soren Arevalo MDJunnicole 2017 Normal [facility] US RENAL COMPLETEon 11-26-19 US RENAL [...] Dr. Pema Leon at 11/25/2017 17:14 Normal [facility] Laboratory - Chemistry and C hemistry - challengeon 10-10-2017 Bilirubin Ql (U) Negative Normal [employer] [facility] [employer] [facility] HospitalInMobi.; [employer], Inc. [facility] [employer], [employer]. Ketones Ql (U) Negative Normal [facility] [employer] [facility] HospitalInMobi.; [place], Inc. pH (U) 6.0 [pH] Normal [facility] [employer].; [place], [employer]. Specific gravity (U) [Rel density] 1.005 Normal [employer].; [place], [employer]. Laboratory - Hematology and Cell countson 10-10-2017 Hemoglobin Ql (U) HEMOLYZED 3+ Abnormal [facility] [employer].; [place], Inc. Laboratory - Specimen inform ationon 10-10-2017 Appearance (U) CLOUDY Abnormal [employer].; [place], Inc. Color (U) YELLOW Normal [employer].; [place], Inc. Laboratory - Urinalysison Glucose Test strip (U) [Mass/Vol] Negative Normal [employer].; [place], Inc. Leukocyte esterase Test strip Ql (U) 3+ Abnormal [employer].; [place], Inc. Nitrite Ql (U) Negative Normal [employer] [facility], Inc.; [place], Inc. Protein Ql (U) 1+ Abnormal [facility] [employer] [facility], Inc.; [place] [employer], Inc. [facility] [employer] [facility], Inc. No Panel Informationon 10-10 Culture Urine See Note Normal [facility] [employer] [facility], Inc.; [place] - [facility] [employer] [facility], Inc. UA - ODOR Negative Normal [facility], Inc.; [place] - [facility] [employer] [facility], Inc. UA - UROBILIGEN 0.2 Normal [facility] [employer] [facility] HospitalInMobi.; [place] [employer], Inc. [facility] [employer] [facility], Inc. Laboratory - Chemistry and C hemistry - challengeon 09-13-2017 Bilirubin Ql (U) Negative Normal [facility] [employer] [facility], Inc.; [employer], Inc. [facility] [employer] [facility], Inc. Ketones Ql (U) Negative Normal [facility] [employer] [facility], Inc.; [employer] - [facility] [employer], Inc. pH (U) 6.0 [pH] Normal [facility] [employer] [facility], Inc.; [employer], Inc. [facility] [employer] [facility], Inc. Specific gravity (U) [Rel density] 1.010 Normal [facility] [email or web address].; [employer], Inc. [facility] [employer], Inc. Laboratory - Hematology and Cell countson 09-13-2017 Hemoglobin Ql (U) HEMOLYZED 3+ Abnormal [facility] [email or web address].; [employer], Inc. [facility] [employer] [facility], Inc. Laboratory - Specimen inform ationon 09-13-2017 Appearance (U) CLOUDY Abnormal [facility] Anton [employer] [facility], Inc.; [employer], Inc. [facility] Montaño [employer], Inc. Color (U) YELLOW Normal [facility] [employer] [facility] HospitalInMobi.; [employer], Inc. [facility] [employer], Inc. Laboratory - Urinalysison Glucose Test strip (U) [Mass/Vol] Negative Normal [facility] [employer] [facility], Inc.; [place] - [facility] [employer], Inc. Leukocyte esterase Test strip Ql (U) 3+ Abnormal [facility] [employer] Inc.; [employer], Inc. [facility] [employer], Inc. Nitrite Ql (U) Positive Abnormal [facility] [employer] [facility], Inc.; [employer], Inc. [facility] [employer], Inc. Protein Ql (U) TRACE Abnormal [employer] [place] [facility], Inc.; [employer], Inc. [facility] [employer] [facility], Inc. No Panel Informationon 09-13 Culture Urine See Note Normal [facility], Inc.; [facility], Inc. UA - ODOR Negative Normal [facility], [facility].; [facility], Inc. UA - UROBILIGEN 0.2 Normal [facility], [facility].; [facility], Inc. Progress Noteon 07-06-2017 [employer] Helper Authentication Interface Message Text error Normal [facility] [employer] Helper Authentication Interface Message Text Juliette Crews is [...] patient and the discussed theplan with the resident/LAW ENFORCEMENT DIRECTOR. I added additional physical exam and history andconfirmed other pertinent data. I performed all of the medical decision makingand developed the plan with the family.Luis Enrique Brennan, Jessica Geiger, CNPJanuary 2017 Normal [facility] Laboratory - Chemistry and C hemistry - challengeon 07-20-2016 Bilirubin Ql (U) Negative Normal [facility] [employer] [facility], Inc.; [employer], Inc. [facility] [employer]ree [employer] [facility], Inc. Ketones Ql (U) Negative Normal [facility], Inc.; [place], Inc. pH (U) 5.0 [pH] Normal [facility] [employer] [facility], [employer].; [place], Inc. Specific gravity (U) [Rel density] 1.020 Normal [facility] [employer], [employer].; [place], Inc. Laboratory - Hematology and Cell countson 07-20-2016 Hemoglobin Ql (U) HEMOLYZED 1+ Abnormal [employer].; [place], Inc. Laboratory - Specimen inform ationon 07-20-2016 Appearance (U) CLEAR Normal [employer], [employer].; [place], Inc. Color (U) YELLOW Normal [email or web address], [employer].; [place], Inc. Laboratory - Urinalysison Glucose Test strip (U) [Mass/Vol] Negative Normal [email or web address], Inc.; [place], Inc. Leukocyte esterase Test strip Ql (U) 2+ Abnormal [employer].; [place], Inc. Nitrite Ql (U) Negative Normal [employer], Inc.; [place], Inc. Protein Ql (U) Negative Normal [employer], Inc.; [place], Inc. No Panel Informationon 07-20 Culture Urine SEE BELOW Normal [email or web address].; [facility], Inc. UA - ODOR Negative Normal [facility] HealthcareInMobi.; [facility], Inc. UA - UROBILIGEN 0.2 Normal [facility].; [facility], [facility]. Laboratory - Chemistry and C hemistry - challengeon 2016 Bilirubin Ql (U) Negative Normal [facility], Inc.; [facility], Inc. Ketones Ql (U) Negative Normal [facility], Inc.; [facility], Inc. pH (U) 5.0 [pH] Normal [facility].; [facility], Inc. Specific gravity (U) [Rel density] 1.015 Normal [facility] HealthcareInMobi.; [facility], Inc. Laboratory - Hematology and Cell countson 2016 Hemoglobin Ql (U) HEMOLYZED 2+ Abnormal [facility].; [facility], Inc. Laboratory - Microbiology an d Antimicrobial susceptibilityon 2016 Bacteria identified Cx Nom (U) See Note Normal [facility] HealthcareInMobi.; [employer] [facility], Inc. Laboratory - Specimen inform ationon 2016 Appearance (U) CLOUDY Abnormal [facility].; [facility], Inc. Color (U) YELLOW Normal [facility].; [facility], Inc. Laboratory - Urinalysison Glucose Test strip (U) [Mass/Vol] Negative Normal [facility] HealthcareInMobi.; [facility], Inc. Leukocyte esterase Test strip Ql (U) 3+ Abnormal [facility] HealthcareInMobi.; [facility], Inc. Nitrite Ql (U) Negative Normal [facility].; [facility], Inc. Protein Ql (U) Negative Normal [facility], Inc.; [facility] [employer] [facility], Inc. No Panel Informationon 03-29 UA - ODOR Positive Abnormal [facility]InMobi.; [facility], Inc. UA - UROBILIGEN 0.2 Normal [facility], Inc.; [place] [facility], Inc. Laboratory - Chemistry and C hemistry - challengeon 07-14-2015 Bilirubin Ql (U) Negative Normal [facility], Inc.; [facility], Inc. Ketones Ql (U) TRACE Abnormal [facility], Inc.; [facility], Inc. pH (U) 5.0 [pH] Normal [facility], Inc.; [facility], Inc. Specific gravity (U) [Rel density] 1.005 Normal [facility], [facility].; [facility], Inc. Laboratory - Hematology and Cell countson 07-14-2015 Hemoglobin Ql (U) HEMOLYZED 3+ Abnormal [facility], Inc.; [facility], Inc. Laboratory - Specimen inform ationon 07-14-2015 Appearance (U) CLEAR Normal [facility], Inc.; [facility], Inc. Color (U) YELLOW Normal [facility], [facility].; [facility], Inc. Laboratory - Urinalysison Glucose Test strip (U) [Mass/Vol] Negative Normal [facility], Inc.; [facility], Inc. Leukocyte esterase Test strip Ql (U) 3+ Abnormal [facility], [facility].; [facility], Inc. Nitrite Ql (U) Negative Normal [facility], Inc.; [facility], Inc. Protein Ql (U) Negative Normal [facility], Inc.; [facility], Inc. No Panel Informationon 07-14 UA - ODOR Negative Normal [facility], Inc.; [facility], Inc. UA - UROBILIGEN 0.2 Normal [facility], Inc.; [facility], Inc. Laboratory - Chemistry and C hemistry - challengeon 06-03-2015 Bilirubin Ql (U) Negative Normal [facility], Inc.; [employer], Inc. [facility] Montaño [employer] [facility], Inc. Ketones Ql (U) Negative Normal [facility] [employer] [facility], Inc.; [facility] [employer] [facility], Inc. pH (U) 6.0 [pH] Normal [facility], Inc.; [employer] [facility] [employer] [facility], Inc. Specific gravity (U) [Rel density] 1.025 Normal [facility] [employer] [facility] HospitalInMobi.; [employer] [facility] [employer] [facility], Inc. Laboratory - Hematology and Cell countson 06-03-2015 Hemoglobin Ql (U) HEMOLYZED 2+ Abnormal [facility] [employer] [facility] HospitalInMobi.; [employer] [facility] [employer] [facility], Inc. Laboratory - Specimen inform ationon 06-03-2015 Appearance (U) CLOUDY Abnormal [facility] [employer] [place] [facility], [employer].; [employer], Inc. [facility] [employer] [facility], Inc. Color (U) YELLOW Normal [facility] [employer] [facility] HospitalInMobi.; [employer] [facility] [employer] [facility], Inc. Laboratory - Urinalysison Glucose Test strip (U) [Mass/Vol] Negative Normal [facility] [employer] [facility] HospitalInMobi.; [employer] - [facility] [employer] [facility], Inc. Leukocyte esterase Test strip Ql (U) 2+ Abnormal [facility] [employer] [facility] HospitalInMobi.; [employer] [facility] [employer] [facility], Inc. Nitrite Ql (U) Positive Abnormal [facility] [employer] [place] [facility], [employer].; [employer], Inc. [facility] [employer] [facility], Inc. Protein Ql (U) TRACE Abnormal [employer] [facility] HospitalInMobi.; [employer], Inc. [facility] [employer] [facility], Inc. No Panel Informationon 06-03 UA - ODOR Positive Abnormal [facility] [employer] [facility]InMobi.; [employer], Inc. [facility] [employer] [facility], Inc. UA - UROBILIGEN 0.2 Normal [employer] [facility] HospitalInMobi.; [employer], Inc. [facility] [employer] [facility], Inc. Laboratory - Chemistry and C hemistry - challengeon 02-12-2014 Bilirubin Ql (U) Negative Normal [facility] [employer] [facility], Inc.; [employer], Inc. [facility] [employer] [facility], Inc. Ketones Ql (U) Negative Normal [facility], Inc.; [employer], Inc. [facility] [employer] [facility], Inc. pH (U) 6.0 [pH] Normal [facility] HealthcareWh[facility] Group Inc.; [facility], Inc. Specific gravity (U) [Rel density] 1.005 Normal [facility] HealthcareInMobi.; [facility], Inc. Laboratory - Hematology and Cell countson 02-12-2014 Hemoglobin Ql (U) HEMOLYZED 1+ Abnormal [facility], Inc.; [facility], Inc. Laboratory - Specimen inform ationon 02-12-2014 Appearance (U) CLOUDY Abnormal [facility].; [facility], Inc. Color (U) YELLOW Normal [facility].; [facility], Inc. Laboratory - Urinalysison Glucose Test strip (U) [Mass/Vol] Negative Normal [facility].; [facility], Inc. Leukocyte esterase Test strip Ql (U) 3+ Abnormal [facility].; [facility], Inc. Nitrite Ql (U) Positive Abnormal [facility].; [facility], Inc. Protein Ql (U) 1+ Abnormal [facility].; [facility], Inc. No Panel Informationon 02-12 UA - ODOR Negative Normal [facility].; [facility], Inc. UA - UROBILIGEN 0.2 Normal [facility].; [facility], Inc. Laboratory - Chemistry and C hemistry - challengeon 12-12-2013 Bilirubin Ql (U) Negative Normal [facility], [employer].; [facility], Inc. Ketones Ql (U) Negative Normal [facility] [facility] pH (U) 5.0 [pH] Normal [facility].; [facility] Specific gravity (U) [Rel density] 1.025 Normal [facility] [employer] [facility] Laboratory - Hematology and Cell countson 12-12-2013 Hemoglobin Ql (U) HEMOLYZED 3+ Abnormal [facility], [facility].; [facility] Laboratory - Specimen inform ationon 12-12-2013 Appearance (U) CLOUDY Abnormal [facility], [facility].; [facility] Color (U) RED Abnormal [facility] Laboratory - Urinalysison Glucose Test strip (U) [Mass/Vol] Negative Normal [facility], [facility].; [facility] Leukocyte esterase Test strip Ql (U) 2+ Abnormal [facility], [facility].; [facility] Nitrite Ql (U) Positive Abnormal [facility].; [facility] Protein Ql (U) 1+ Abnormal [facility], [facility].; [facility] No Panel Informationon 12-12 UA - ODOR Positive Abnormal [facility].; [facility] UA - UROBILIGEN 0.2 Normal [facility].; [place] [facility] Laboratory - Chemistry and C hemistry - challengeon 08-16-2013 Bilirubin Ql (U) Negative Normal [facility], [facility].; [facility] Ketones Ql (U) Negative Normal [facility], [facility].; [facility] pH (U) 6.0 [pH] Normal [facility], [facility].; [facility] Specific gravity (U) [Rel density] 1.020 Normal [facility], [facility].; [facility] Laboratory - Hematology and Cell countson 08-16-2013 Hemoglobin Ql (U) Negative Normal [facility], [facility].; [facility] Laboratory - Specimen inform ationon 08-16-2013 Appearance (U) CLOUDY Abnormal [facility] Color (U) YELLOW Normal [facility] Laboratory - Urinalysison Glucose Test strip (U) [Mass/Vol] Negative Normal [facility].; [facility], [facility]. Leukocyte esterase Test strip Ql (U) 2+ Abnormal [facility].; [facility] Nitrite Ql (U) Positive Abnormal [facility].; [facility] Protein Ql (U) Negative Normal [facility].; [facility] No Panel Informationon 08-16 UA - ODOR Positive Abnormal [facility].; [facility], [facility]. UA - UROBILIGEN 0.2 Normal [facility].; [facility], [facility]. Laboratory - Chemistry and C hemistry - challengeon 04-07-2013 Bilirubin Ql (U) Negative Normal [facility].; [facility] Ketones Ql (U) Negative Normal [facility].; [facility] pH (U) 5.0 [pH] Normal [facility].; [facility], [facility]. Specific gravity (U) [Rel density] 1.015 Normal [facility].; [facility] Laboratory - Hematology and Cell countson 04-07-2013 Hemoglobin Ql (U) NON HEMOLYZED MODERATE Abnormal [facility].; [facility] Laboratory - Specimen inform ationon 04-07-2013 Appearance (U) CLOUDY Abnormal [facility].; [facility] Color (U) YELLOW Normal [facility].; [facility] Laboratory - Urinalysison Glucose Test strip (U) [Mass/Vol] Negative Normal [facility] Leukocyte esterase Test strip Ql (U) 1+ Abnormal [facility] [employer] Nitrite Ql (U) Positive Abnormal [facility], [facility].; [facility] Protein Ql (U) 1+ Abnormal [facility].; [facility] No Panel Informationon 04-07 Culture Urine SEE BELOW Normal [facility], [facility].; [facility] UA - ODOR Positive Abnormal [facility].; [facility] UA - UROBILIGEN 0.2 Normal [facility].; [facility] Laboratory - Chemistry and C hemistry - challengeon 08-15-2012 Bilirubin Ql (U) Negative Normal [facility], [facility].; [facility] Ketones Ql (U) Negative Normal [facility], [facility].; [facility] pH (U) 6.0 [pH] Normal [facility].; [facility] Specific gravity (U) [Rel density] 1.020 Normal [facility].; [facility] Laboratory - Hematology and Cell countson 08-15-2012 Hemoglobin Ql (U) Negative Normal [facility], [facility].; [facility] Laboratory - Specimen inform ationon 08-15-2012 Appearance (U) CLOUDY Abnormal [facility].; [facility] Color (U) YELLOW Normal [facility].; [facility] Laboratory - Urinalysison Glucose Test strip (U) [Mass/Vol] Negative Normal [facility].; [facility] Leukocyte esterase Test strip Ql (U) 2+ Abnormal [facility], [facility].; [facility] Nitrite Ql (U) Positive Abnormal [facility], [facility].; [facility] Protein Ql (U) 2+ Abnormal [facility] No Panel Informationon 08-15 UA - ODOR Positive Abnormal [facility], [facility].; [facility] UA - UROBILIGEN 0.2 Normal [facility], [facility].; [facility] Laboratory - Chemistry and C hemistry - challengeon 11-03-2010 Bilirubin Ql (U) Negative Normal [facility], [facility] Ketones Ql (U) Negative Normal [facility], [facility].; [facility] pH (U) 5.0 [pH] Normal [facility], [facility].; [facility], [facility]. Specific gravity (U) [Rel density] 1.025 Normal [facility].; [facility], [facility]. Laboratory - Hematology and Cell countson 11-03-2010 Hemoglobin Ql (U) HEMOLYZED 2+ Abnormal [facility].; [facility] Laboratory - Specimen inform ationon 11-03-2010 Appearance (U) CLOUDY Abnormal [facility], [employer] Color (U) LOWELL Normal [facility].; [facility] Laboratory - Urinalysison Glucose Test strip (U) [Mass/Vol] Negative Normal [facility], [facility].; [facility] Leukocyte esterase Test strip Ql (U) 2+ Abnormal [facility].; [facility] Nitrite Ql (U) Positive Abnormal [facility] Protein Ql (U) TRACE Normal [facility], [employer] [facility] No Panel Informationon 11-03 UA - ODOR Positive Abnormal [facility], [facility].; [facility] UA - UROBILIGEN 0.2 Normal [facility], [facility].; [facility] Laboratory - Chemistry and C hemistry - challengeon 07-03-2010 Bilirubin Ql (U) Negative Normal [facility], [facility] Ketones Ql (U) Negative Normal [facility] pH (U) 5.0 [pH] Normal [facility] Specific gravity (U) [Rel density] 1.005 Normal [facility].; [employer] [facility] Laboratory - Hematology and Cell countson 07-03-2010 Hemoglobin Ql (U) HEMOLYZED 1+ Abnormal [facility].; [facility] Laboratory - Specimen inform ationon 07-03-2010 Appearance (U) CLOUDY Abnormal [facility], [employer] [employer] [facility] Color (U) YELLOW Normal [facility] [employer] [facility] Laboratory - Urinalysison Glucose Test strip (U) [Mass/Vol] Negative Normal [facility].; [facility] Leukocyte esterase Test strip Ql (U) 1+ Abnormal [facility].; [employer] [facility] Nitrite Ql (U) Positive Abnormal [facility], [employer] [employer] [facility] Protein Ql (U) Negative Normal [facility].; [place] [facility] [employer] [facility] No Panel Informationon 07-03 UA - ODOR Positive Abnormal [facility].; [place] [employer] [facility] [employer] [facility] UA - UROBILIGEN 0.2 Normal [facility].; [employer] - [facility] [employer] [facility] Laboratory - Chemistry and C hemistry - challengeon 06-19-2010 Bilirubin Ql (U) Negative Normal [facility], [facility] [employer] [facility] [employer] [facility] Ketones Ql (U) Negative Normal [facility], [facility] [place] - [facility] [employer] [facility] pH (U) 7.0 [pH] Normal [facility] Specific gravity (U) [Rel density] 1.005 Normal [facility], [facility]. Laboratory - Hematology and Cell countson 06-19-2010 Hemoglobin Ql (U) Negative Normal [facility], [employer] Laboratory - Specimen inform ationon 06-19-2010 Appearance (U) CLEAR Normal [facility].; [facility] Color (U) YELLOW Normal [facility].; [facility] Laboratory - Urinalysison Glucose Test strip (U) [Mass/Vol] Negative Normal [facility].; [facility] Leukocyte esterase Test strip Ql (U) 1+ Abnormal [facility].; [facility] Nitrite Ql (U) Negative Normal [facility].; [facility] Protein Ql (U) Negative Normal [facility].; [facility] No Panel Informationon 06-19 UA - ODOR Negative Normal [facility].; [facility] UA - UROBILIGEN 0.2 Normal [facility].; [facility] Bacteria identified Anaer cx Nom (Unsp spec) Anaerobic Culture Anaerobic cocci [facility] Work Phone: Bacteria identified Cx Nom ( Wound) Wound Culture Staphylococcus aureus [facility] Work Phone: [phone] Wound Culture Corynebacterium striatum [facility] Work Phone: [phone] Gram stain for investigation of transfusion reaction Microscopic observation Gram stain Nom (Unsp spec) [facility] Work Phone: Vital Signs Date Time Vital Sign Value Performing Clinician Faci lity 03-28-2025 11:29-0400 Body temperature 97 [degF] Kassie Polanco LAW ENFORCEMENT DIRECTOR-C Work Phone: [facility] 03-28-2025 11:29-0400 Diastolic blood pressure 97 mm[Hg] Kassie Polanco LAW ENFORCEMENT DIRECTOR-C Work Phone: [facility] 03-28-2025 11:29-0400 Heart rate 100 /min Kassie Sherri LAW ENFORCEMENT DIRECTOR-C Work Phone: [facility] 03-28-2025 11:29-0400 Respiratory rate 18 /min Kassie Sherri LAW ENFORCEMENT DIRECTOR-C Work Phone: [facility] 03-28-2025 11:29-0400 Systolic blood pressure 150 mm[Hg] Kassie Sherri LAW ENFORCEMENT DIRECTOR-C Work Phone: [facility] 03-07-2025 11:23-0400 Body temperature 97.8 [degF] Kassie Sherri LAW ENFORCEMENT DIRECTOR-C Work Phone: [facility] 03-07-2025 11:23-0400 Diastolic blood pressure 82 mm[Hg] Kassie Sherri LAW ENFORCEMENT DIRECTOR-C Work Phone: [facility] 03-07-2025 11:23-0400 Heart rate 98 /min Kassie Sherri LAW ENFORCEMENT DIRECTOR-C Work Phone: [facility] 03-07-2025 11:23-0400 Respiratory rate 18 /min Kassie Sherri LAW ENFORCEMENT DIRECTOR-C Work Phone: [facility] 03-07-2025 11:23-0400 Systolic blood pressure 116 mm[Hg] Kassie Mtzler LAW ENFORCEMENT DIRECTOR-C Work Phone: [facility] 02-21-2025 10:53-0400 Body temperature 97.8 [degF] Kassie Sherri LAW ENFORCEMENT DIRECTOR-C Work Phone: [facility] 02-21-2025 10:53-0400 Diastolic blood pressure 85 mm[Hg] Kassie Sherri LAW ENFORCEMENT DIRECTOR-C Work Phone: [facility] 02-21-2025 10:53-0400 Heart rate 99 /min Kassie Mtzler LAW ENFORCEMENT DIRECTOR-C Work Phone: [facility] 02-21-2025 10:53-0400 Respiratory rate 18 /min Kassie Polanco LAW ENFORCEMENT DIRECTOR-C Work Phone: [facility] 02-21-2025 10:53-0400 Systolic blood pressure 135 mm[Hg] Kassie Polanco LAW ENFORCEMENT DIRECTOR-C Work Phone: [facility] 01-31-2025 10:03-0400 Body temperature 97.6 [degF] Kassie Polanco LAW ENFORCEMENT DIRECTOR-C Work Phone: [facility] 01-31-2025 10:03-0400 Diastolic blood pressure 86 mm[Hg] Kassie Polanco LAW ENFORCEMENT DIRECTOR-C Work Phone: [facility] 01-31-2025 10:03-0400 Heart rate 102 /min Kassie Polanco LAW ENFORCEMENT DIRECTOR-C Work Phone: [facility] 01-31-2025 10:03-0400 Respiratory rate 16 /min Kassie Polanco LAW ENFORCEMENT DIRECTOR-C Work Phone: [facility] 01-31-2025 10:03-0400 Systolic blood pressure 115 mm[Hg] Kassie Polanco LAW ENFORCEMENT DIRECTOR-C Work Phone: [facility] 01-30-2025 09:14-0400 Body height 152.4 cm Kassie Polanco LAW ENFORCEMENT DIRECTOR-C Work Phone: [facility] 01-30-2025 09:14-0400 Body mass index (BMI) [Ratio] 26.4 kg/m2 Kassie Polanco LAW ENFORCEMENT DIRECTOR-C Work Phone: [facility] 01-30-2025 09:14-0400 Body weight 61.23 kg Kassie Polanco LAW ENFORCEMENT DIRECTOR-C Work Phone: [facility] 01-30-2025 09:14-0400 Diastolic blood pressure 81 mm[Hg] Kassie Polanco LAW ENFORCEMENT DIRECTOR-C Work Phone: [facility] 01-30-2025 09:14-0400 Respiratory rate 18 /min Kassie Polanco LAW ENFORCEMENT DIRECTOR-C Work Phone: [facility] 01-30-2025 09:14-0400 SaO2% (BldA) [Mass fraction] 95 % Kassie Polanco LAW ENFORCEMENT DIRECTOR-C Work Phone: [facility] 01-30-2025 09:14-0400 Systolic blood pressure 120 mm[Hg] Kassie Polanco LAW ENFORCEMENT DIRECTOR-C Work Phone: [facility] 01-24-2025 10:37-0400 Body temperature 96.4 [degF] Kassie Mtzler LAW ENFORCEMENT DIRECTOR-C Work Phone: [facility] 01-24-2025 10:37-0400 Diastolic blood pressure 85 mm[Hg] Kassie Mtzler LAW ENFORCEMENT DIRECTOR-C Work Phone: [facility] 01-24-2025 10:37-0400 Heart rate 110 /min Kassie Polanco LAW ENFORCEMENT DIRECTOR-C Work Phone: [facility] 01-24-2025 10:37-0400 Respiratory rate 18 /min Kassie Sherri LAW ENFORCEMENT DIRECTOR-C Work Phone: [facility] 01-24-2025 10:37-0400 Systolic blood pressure 116 mm[Hg] Kassie Mtzler LAW ENFORCEMENT DIRECTOR-C Work Phone: [facility] 01-22-2025 12:55-0400 Body temperature 99.2 [degF] Kassie Mtzler LAW ENFORCEMENT DIRECTOR-C Work Phone: [facility] 01-22-2025 12:55-0400 Diastolic blood pressure 85 mm[Hg] Kassie Mtzler LAW ENFORCEMENT DIRECTOR-C Work Phone: [facility] 01-22-2025 12:55-0400 Heart rate 114 /min Kassie Polanco LAW ENFORCEMENT DIRECTOR-C Work Phone: [facility] 01-22-2025 12:55-0400 Respiratory rate 18 /min Kassie Mtzler LAW ENFORCEMENT DIRECTOR-C Work Phone: [facility] 01-22-2025 12:55-0400 SaO2% (BldA) [Mass fraction] 100 % Kassie Polanco LAW ENFORCEMENT DIRECTOR-C Work Phone: [facility] 01-22-2025 12:55-0400 Systolic blood pressure 115 mm[Hg] Kassie Polanco LAW ENFORCEMENT DIRECTOR-C Work Phone: [facility] 01-22-2025 10:01-0400 Body height 152.4 cm Kassie Polanco LAW ENFORCEMENT DIRECTOR-C Work Phone: [facility] 01-22-2025 10:01-0400 Body mass index (BMI) [Ratio] 26.4 kg/m2 Kassie Polanco LAW ENFORCEMENT DIRECTOR-C Work Phone: [facility] 01-22-2025 10:01-0400 Body weight 61.23 kg Kassie Polanco LAW ENFORCEMENT DIRECTOR-C Work Phone: [facility] 01-17-2025 10:03-0400 Body temperature 96.4 [degF] Kassie Polanco LAW ENFORCEMENT DIRECTOR-C Work Phone: [facility] 01-17-2025 10:03-0400 Diastolic blood pressure 83 mm[Hg] Kassie Polanco LAW ENFORCEMENT DIRECTOR-C Work Phone: [facility] 01-17-2025 10:03-0400 Heart rate 100 /min Kassie Polanco LAW ENFORCEMENT DIRECTOR-C Work Phone: [facility] 01-17-2025 10:03-0400 Respiratory rate 18 /min Kassie Polanco LAW ENFORCEMENT DIRECTOR-C Work Phone: [facility] 01-17-2025 10:03-0400 Systolic blood pressure 139 mm[Hg] Kassie Polanco LAW ENFORCEMENT DIRECTOR-C Work Phone: [facility] 01-03-2025 08:22-0400 Body temperature 97.1 [degF] Kassie Polanco LAW ENFORCEMENT DIRECTOR-C Work Phone: [facility] 01-03-2025 08:22-0400 Diastolic blood pressure 76 mm[Hg] Kassie Polanco LAW ENFORCEMENT DIRECTOR-C Work Phone: [facility] 01-03-2025 08:22-0400 Heart rate 106 /min Kassie Sherri LAW ENFORCEMENT DIRECTOR-C Work Phone: [facility] 01-03-2025 08:22-0400 Respiratory rate 18 /min Kassie Sherri LAW ENFORCEMENT DIRECTOR-C Work Phone: [facility] 01-03-2025 08:22-0400 Systolic blood pressure 117 mm[Hg] Kassie Sherri LAW ENFORCEMENT DIRECTOR-C Work Phone: [facility] 12-13-2024 11:11-0400 Body temperature 97.1 [degF] Kassie Sherri LAW ENFORCEMENT DIRECTOR-C Work Phone: [facility] 12-13-2024 11:11-0400 Diastolic blood pressure 95 mm[Hg] Kassie Sherri LAW ENFORCEMENT DIRECTOR-C Work Phone: [facility] 12-13-2024 11:11-0400 Heart rate 96 /min Kassie Sherri LAW ENFORCEMENT DIRECTOR-C Work Phone: [facility] 12-13-2024 11:11-0400 Respiratory rate 18 /min Kassie Sherri LAW ENFORCEMENT DIRECTOR-C Work Phone: [facility] 12-13-2024 11:11-0400 Systolic blood pressure 131 mm[Hg] Kassie Sherri LAW ENFORCEMENT DIRECTOR-C Work Phone: [facility] 11-29-2024 10:50-0400 Body temperature 98.2 [degF] Kassie Sherri LAW ENFORCEMENT DIRECTOR-C Work Phone: [facility] 11-29-2024 10:50-0400 Diastolic blood pressure 83 mm[Hg] Kassie Sherri LAW ENFORCEMENT DIRECTOR-C Work Phone: [facility] 11-29-2024 10:50-0400 Heart rate 100 /min Kassie Sherri LAW ENFORCEMENT DIRECTOR-C Work Phone: [facility] 11-29-2024 10:50-0400 Respiratory rate 18 /min Kassie Sherri LAW ENFORCEMENT DIRECTOR-C Work Phone: [facility] 11-29-2024 10:50-0400 Systolic blood pressure 118 mm[Hg] Kassie Polanco LAW ENFORCEMENT DIRECTOR-C Work Phone: [facility] 08-21-2024 13:52-0400 Body height 141.99 cm Kassie Polanco LAW ENFORCEMENT DIRECTOR-C Work Phone: [facility] 08-21-2024 13:52-0400 Body mass index (BMI) [Ratio] 30.4 kg/m2 Kassie Polanco LAW ENFORCEMENT DIRECTOR-C Work Phone: [facility] 08-21-2024 13:52-0400 Body weight 61.23 kg Kassie Polanco LAW ENFORCEMENT DIRECTOR-C Work Phone: [facility] 08-21-2024 13:52-0400 Diastolic blood pressure 90 mm[Hg] Kassie Polanco LAW ENFORCEMENT DIRECTOR-C Work Phone: [facility] 08-21-2024 13:52-0400 Heart rate 114 /min Kassie Polanco LAW ENFORCEMENT DIRECTOR-C Work Phone: [facility] 08-21-2024 13:52-0400 Respiratory rate 18 /min Kassie Polanco LAW ENFORCEMENT DIRECTOR-C Work Phone: [facility] 08-21-2024 13:52-0400 SaO2% (BldA) [Mass fraction] 94 % Kassie Polanco LAW ENFORCEMENT DIRECTOR-C Work Phone: [facility] 08-21-2024 13:52-0400 Systolic blood pressure 149 mm[Hg] Kassie Polanco LAW ENFORCEMENT DIRECTOR-C Work Phone: [facility] 09-23-2022 11:14-0400 Body temperature 97.5 [degF] LAW ENFORCEMENT DIRECTOR-C Kassie Polanco LAW ENFORCEMENT DIRECTOR Work Phone: [facility] 09-23-2022 11:14-0400 Diastolic blood pressure 78 mm[Hg] LAW ENFORCEMENT DIRECTOR-C Kassie Polanco LAW ENFORCEMENT DIRECTOR Work Phone: [facility] 09-23-2022 11:14-0400 Heart rate 101 /min LAW ENFORCEMENT DIRECTOR-C Kassie Polanco LAW ENFORCEMENT DIRECTOR Work Phone: [facility] 09-23-2022 11:14-0400 Respiratory rate 16 /min LAW ENFORCEMENT DIRECTOR-C Kassie Polanco LAW ENFORCEMENT DIRECTOR Work Phone: [facility] 09-23-2022 11:14-0400 Systolic blood pressure 108 mm[Hg] LAW ENFORCEMENT DIRECTOR-C Kassie Polanco LAW ENFORCEMENT DIRECTOR Work Phone: [facility] 08-26-2022 10:57-0400 Diastolic blood pressure 80 mm[Hg] LAW ENFORCEMENT DIRECTOR-C Kassie Polanco LAW ENFORCEMENT DIRECTOR Work Phone: [facility] 08-26-2022 10:57-0400 Heart rate 91 /min LAW ENFORCEMENT DIRECTOR-C Kassie Polanco LAW ENFORCEMENT DIRECTOR Work Phone: [facility] 08-26-2022 10:57-0400 Respiratory rate 16 /min LAW ENFORCEMENT DIRECTOR-C Kassie Polanco LAW ENFORCEMENT DIRECTOR Work Phone: [facility] 08-26-2022 10:57-0400 Systolic blood pressure 121 mm[Hg] LAW ENFORCEMENT DIRECTOR-C Kassie Polanco LAW ENFORCEMENT DIRECTOR Work Phone: [facility] 08-12-2022 11:18-0500 Body temperature 97 [degF] LAW ENFORCEMENT DIRECTOR-C Kassie Polanco LAW ENFORCEMENT DIRECTOR Work Phone: [facility] 08-04-2022 13:26-0500 Body height 137.2 cm Nawaf Quinn M D Work Phone: [facility] 08-04-2022 13:26-0500 Body weight 68.04 kg Nawaf Quinn M D Work Phone: [facility] 07-29-2022 10:52-0500 Body temperature 97.5 [degF] LAW ENFORCEMENT DIRECTOR-C Kassie Polanco LAW ENFORCEMENT DIRECTOR Work Phone: [facility] 07-29-2022 10:52-0500 Diastolic blood pressure 91 mm[Hg] LAW ENFORCEMENT DIRECTOR-C Kassie Polanco LAW ENFORCEMENT DIRECTOR Work Phone: [facility] 07-29-2022 10:52-0500 Heart rate 107 /min LAW ENFORCEMENT DIRECTOR-C Kassie Polanco LAW ENFORCEMENT DIRECTOR Work Phone: [facility] 07-29-2022 10:52-0500 Respiratory rate 20 /min LAW ENFORCEMENT DIRECTOR-C Kassie Sherri LAW ENFORCEMENT DIRECTOR Work Phone: [facility] 07-29-2022 10:52-0500 Systolic blood pressure 149 mm[Hg] LAW ENFORCEMENT DIRECTOR-C Kassie Sherri LAW ENFORCEMENT DIRECTOR Work Phone: [facility] 07-01-2022 10:44-0500 Body temperature 97.9 [degF] LAW ENFORCEMENT DIRECTOR-C Kassie Polanco LAW ENFORCEMENT DIRECTOR Work Phone: [facility] 07-01-2022 10:44-0500 Diastolic blood pressure 81 mm[Hg] LAW ENFORCEMENT DIRECTOR-C Kassie Polanco LAW ENFORCEMENT DIRECTOR Work Phone: [facility] 07-01-2022 10:44-0500 Heart rate 107 /min LAW ENFORCEMENT DIRECTOR-C Kassie Polanco LAW ENFORCEMENT DIRECTOR Work Phone: [facility] 07-01-2022 10:44-0500 Respiratory rate 20 /min LAW ENFORCEMENT DIRECTOR-C Kassie Polanco LAW ENFORCEMENT DIRECTOR Work Phone: [facility] 07-01-2022 10:44-0500 Systolic blood pressure 129 mm[Hg] LAW ENFORCEMENT DIRECTOR-C Kassie Polanco LAW ENFORCEMENT DIRECTOR Work Phone: [facility] 06-03-2022 10:44-0500 Body temperature 96.6 [degF] LAW ENFORCEMENT DIRECTOR-C Kassie Polanco LAW ENFORCEMENT DIRECTOR Work Phone: [facility] 06-03-2022 10:44-0500 Diastolic blood pressure 84 mm[Hg] LAW ENFORCEMENT DIRECTOR-C Kassie Polanco LAW ENFORCEMENT DIRECTOR Work Phone: [facility] 06-03-2022 10:44-0500 Heart rate 100 /min LAW ENFORCEMENT DIRECTOR-C Kassie Polanco LAW ENFORCEMENT DIRECTOR Work Phone: [facility] 06-03-2022 10:44-0500 Respiratory rate 19 /min LAW ENFORCEMENT DIRECTOR-C Kassie Polanco LAW ENFORCEMENT DIRECTOR Work Phone: [facility] 06-03-2022 10:44-0500 Systolic blood pressure 145 mm[Hg] LAW ENFORCEMENT DIRECTOR-C Kassie Polanco LAW ENFORCEMENT DIRECTOR Work Phone: [facility] 04-22-2022 11:34-0500 Body temperature 97.5 [degF] LAW ENFORCEMENT DIRECTOR-C Kassie Polanco LAW ENFORCEMENT DIRECTOR Work Phone: [facility] 04-22-2022 11:34-0500 Diastolic blood pressure 95 mm[Hg] LAW ENFORCEMENT DIRECTOR-C Kassie Polanco LAW ENFORCEMENT DIRECTOR Work Phone: [facility] 04-22-2022 11:34-0500 Heart rate 93 /min LAW ENFORCEMENT DIRECTOR-C Kassie Polanco LAW ENFORCEMENT DIRECTOR Work Phone: [facility] 04-22-2022 11:34-0500 Respiratory rate 18 /min LAW ENFORCEMENT DIRECTOR-C Kassie Polanco LAW ENFORCEMENT DIRECTOR Work Phone: [facility] 04-22-2022 11:34-0500 Systolic blood pressure 135 mm[Hg] LAW ENFORCEMENT DIRECTOR-C Kasise Polanco LAW ENFORCEMENT DIRECTOR Work Phone: [facility] 03-25-2022 11:26-0400 Body temperature 96.8 [degF] LAW ENFORCEMENT DIRECTOR-C Kassie Polanco LAW ENFORCEMENT DIRECTOR Work Phone: [facility] Work Phone: 03-25-2022 11:26-0400 Diastolic blood pressure 85 mm[Hg] LAW ENFORCEMENT DIRECTOR-C Kassie Polanco LAW ENFORCEMENT DIRECTOR Work Phone: [facility] Work Phone: 03-25-2022 11:26-0400 Heart rate 72 /min LAW ENFORCEMENT DIRECTOR-C Kassie Polanco LAW ENFORCEMENT DIRECTOR Work Phone: [facility] Work Phone: 03-25-2022 11:26-0400 Respiratory rate 20 /min LAW ENFORCEMENT DIRECTOR-C Kassie Polanco LAW ENFORCEMENT DIRECTOR Work Phone: [facility] Work Phone: 03-25-2022 11:26-0400 Systolic blood pressure 160 mm[Hg] LAW ENFORCEMENT DIRECTOR-C Kassie Polanco LAW ENFORCEMENT DIRECTOR Work Phone: [facility] Work Phone: 02-25-2022 10:40-0400 Body temperature 97.1 [degF] LAW ENFORCEMENT DIRECTOR-C Kassie Polanco LAW ENFORCEMENT DIRECTOR Work Phone: [facility] Work Phone: 02-25-2022 10:40-0400 Diastolic blood pressure 105 mm[Hg] LAW ENFORCEMENT DIRECTOR-C Kassie Polanco LAW ENFORCEMENT DIRECTOR Work Phone: [facility] Work Phone: 02-25-2022 10:40-0400 Heart rate 108 /min LAW ENFORCEMENT DIRECTOR-C Kassie Polanco LAW ENFORCEMENT DIRECTOR Work Phone: [facility] Work Phone: 02-25-2022 10:40-0400 Respiratory rate 20 /min LAW ENFORCEMENT DIRECTOR-C Kassie Polanco LAW ENFORCEMENT DIRECTOR Work Phone: [facility] Work Phone: 02-25-2022 10:40-0400 Systolic blood pressure 143 mm[Hg] LAW ENFORCEMENT DIRECTOR-C Kassie Polanco LAW ENFORCEMENT DIRECTOR Work Phone: [facility] Work Phone: 01-28-2022 13:29-0400 Body temperature 97.2 [degF] LAW ENFORCEMENT DIRECTOR-C Kassie Polanco LAW ENFORCEMENT DIRECTOR Work Phone: [facility] Work Phone: 01-28-2022 13:29-0400 Diastolic blood pressure 91 mm[Hg] LAW ENFORCEMENT DIRECTOR-C Kassie Polanco LAW ENFORCEMENT DIRECTOR Work Phone: [facility] Work Phone: 01-28-2022 13:29-0400 Heart rate 109 /min LAW ENFORCEMENT DIRECTOR-C Kassie Polanco LAW ENFORCEMENT DIRECTOR Work Phone: [facility] Work Phone: 01-28-2022 13:29-0400 Systolic blood pressure 133 mm[Hg] LAW ENFORCEMENT DIRECTOR-C Kassie Polanco LAW ENFORCEMENT DIRECTOR Work Phone: [facility] Work Phone: 01-21-2022 10:47-0400 Body temperature 98.8 [degF] LAW ENFORCEMENT DIRECTOR-C Kassie Polanco LAW ENFORCEMENT DIRECTOR Work Phone: [facility] Work Phone: 01-21-2022 10:47-0400 Diastolic blood pressure 83 mm[Hg] LAW ENFORCEMENT DIRECTOR-C Kassie Polanco LAW ENFORCEMENT DIRECTOR Work Phone: [facility] Work Phone: 01-21-2022 10:47-0400 Heart rate 112 /min LAW ENFORCEMENT DIRECTOR-C Kassie Polanco LAW ENFORCEMENT DIRECTOR Work Phone: [facility] Work Phone: 01-21-2022 10:47-0400 Respiratory rate 20 /min LAW ENFORCEMENT DIRECTOR-C Kassie Polanco LAW ENFORCEMENT DIRECTOR Work Phone: [facility] Work Phone: 01-21-2022 10:47-0400 Systolic blood pressure 134 mm[Hg] LAW ENFORCEMENT DIRECTOR-C Kassie Polanco LAW ENFORCEMENT DIRECTOR Work Phone: [facility] Work Phone: 12-24-2021 10:08-0400 Body temperature 97.6 [degF] LAW ENFORCEMENT DIRECTOR-C Kassie Polanco LAW ENFORCEMENT DIRECTOR Work Phone: [facility] Work Phone: 12-24-2021 10:08-0400 Diastolic blood pressure 93 mm[Hg] LAW ENFORCEMENT DIRECTOR-C Kassie Polanco LAW ENFORCEMENT DIRECTOR Work Phone: [facility] Work Phone: 12-24-2021 10:08-0400 Heart rate 95 /min LAW ENFORCEMENT DIRECTOR-C Kassie Polanco LAW ENFORCEMENT DIRECTOR Work Phone: [facility] Work Phone: 12-24-2021 10:08-0400 Respiratory rate 16 /min LAW ENFORCEMENT DIRECTOR-C Kassie Polanco LAW ENFORCEMENT DIRECTOR Work Phone: [facility] Work Phone: 12-24-2021 10:08-0400 Systolic blood pressure 132 mm[Hg] LAW ENFORCEMENT DIRECTOR-C Kassie Polanco LAW ENFORCEMENT DIRECTOR Work Phone: [facility] Work Phone: 11-04-2021 13:39-0400 Body height 141.99 cm LAW ENFORCEMENT DIRECTOR-Martell Polanco LAW ENFORCEMENT DIRECTOR Work Phone: [facility] Work Phone: 11-04-2021 13:39-0400 Body mass index (BMI) [Ratio] 34.2 kg/m2 LAW ENFORCEMENT DIRECTOR-C Kassie Polanco LAW ENFORCEMENT DIRECTOR Work Phone: [facility] Work Phone: 11-04-2021 13:39-0400 Body temperature 99.1 [degF] LAW ENFORCEMENT DIRECTOR-C Kassie Polanco LAW ENFORCEMENT DIRECTOR Work Phone: [facility] Work Phone: 11-04-2021 13:39-0400 Body weight 68.94 kg LAW ENFORCEMENT DIRECTOR-C Kassie Polanco LAW ENFORCEMENT DIRECTOR Work Phone: [facility] Work Phone: 11-04-2021 13:39-0400 Diastolic blood pressure 104 mm[Hg] LAW ENFORCEMENT DIRECTOR-C Kassie Polanco LAW ENFORCEMENT DIRECTOR Work Phone: [facility] Work Phone: 11-04-2021 13:39-0400 Heart rate 100 /min LAW ENFORCEMENT DIRECTOR-C Kassie Polanco LAW ENFORCEMENT DIRECTOR Work Phone: [facility] Work Phone: 11-04-2021 13:39-0400 Respiratory rate 18 /min LAW ENFORCEMENT DIRECTOR-C Kassie Polanco LAW ENFORCEMENT DIRECTOR Work Phone: [facility] Work Phone: 11-04-2021 13:39-0400 SaO2% (BldA) [Mass fraction] 98 % LAW ENFORCEMENT DIRECTOR-Martell Polanco LAW ENFORCEMENT DIRECTOR Work Phone: [facility] Work Phone: 11-04-2021 13:39-0400 Systolic blood pressure 153 mm[Hg] LAW ENFORCEMENT DIRECTOREllie Polanco Work Phone: [facility] Work Phone: 10-03-2018 16:06-0400 Diastolic blood pressure 79 mm[Hg] Shantell Lopez RN [email or web address] [place] Comment on above: Patient Position: Sitting; Cuff Location : Left Arm; Cuff Size: Large 10-03-2018 16:06-0400 Heart rate 90 /min Shantell Lopez RN [email or web address] [place] Comment on above: Pattern: Regular 10-03-2018 16:06-0400 Systolic blood pressure 114 mm[Hg] Shantell Lopez RN [email or web address] [place] Comment on above: Patient Position: Sitting; Cuff Location : Left Arm; Cuff Size: Large 08-11-2018 19:12-0500 Body temperature 97.8 [degF] [employer] [place] Comment on above: Method: Oral 08-11-2018 19:12-0500 Diastolic blood pressure 89 mm[Hg] [employer] [place] Comment on above: Patient Position: Sitting; Cuff Location : Left Arm; Cuff Size: Standard 08-11-2018 19:12-0500 Heart rate 102 /min MARYAlive JuicesYER [email or web address] [place] Comment on above: Pattern: Regular 08-11-2018 19:12-0500 Systolic blood pressure 124 mm[Hg] [employer] [place] Comment on above: Patient Position: Sitting; Cuff Location : Left Arm; Cuff Size: Standard 06-12-2018 15:01-0500 Body temperature 98 [degF] Roxana Muir RN [email or web address] [place] Comment on above: Method: Oral 06-12-2018 15:01-0500 Diastolic blood pressure 60 mm[Hg] Roxana Muir RN [facility] [employer] [facility], [employer] [place] Comment on above: Patient Position: Sitting; Cuff Location : Left Arm; Cuff Size: Standard 06-12-2018 15:01-0500 Heart rate 93 /min Roxana Muir RN [facility] [employer] [facility], [employer] [place] Comment on above: Pattern: Regular 06-12-2018 15:01-0500 Inhaled oxygen concentration 21 % Roxana Muir RN [facility] [employer] [facility], [employer] [place] Comment on above: Room air 06-12-2018 15:01-0500 SaO2% (BldA) [Mass fraction] 91 % Roxana Muir RN [facility] [employer] [facility], [employer] 06-12-2018 15:01-0500 Systolic blood pressure 92 mm[Hg] Roxana Muir RN [facility] [employer] [facility], [employer] [place] Comment on above: Patient Position: Sitting; Cuff Location : Left Arm; Cuff Size: Standard 03-28-2018 15:08-0400 Inhaled oxygen concentration 21 % Shantell Lopez RN [facility] [employer] [facility], [employer] [place] Comment on above: Room air 03-28-2018 15:08-0400 SaO2% (BldA) [Mass fraction] 95 % Shantell Lopez RN [facility] [employer] [facility], Inc.; [employer] [facility] [employer] 03-28-2018 14:20-0400 Body temperature 98 [degF] Shantell Lopez RN [facility] [employer] [facility], [employer] [place] Comment on above: Method: Oral 03-28-2018 14:20-0400 Diastolic blood pressure 86 mm[Hg] Shantell Lopez RN [facility] [employer] [facility], [employer] [place] Comment on above: Patient Position: Sitting; Cuff Location : Left Arm; Cuff Size: Large 03-28-2018 14:20-0400 Heart rate 108 /min Shantell Lopez RN [facility] [employer] [facility], [employer] Comment on above: Pattern: Regular 03-28-2018 14:20-0400 Systolic blood pressure 121 mm[Hg] Shantell Lopez RN [facility] Love [facility] HospitalInMobi.; [employer] [facility] [employer] [facility], [employer]. Comment on above: Patient Position: Sitting; Cuff Location : Left Arm; Cuff Size: Large 10-10-2017 10:40-0400 Body temperature 97.4 [degF] Cherry Khan RN [facility] Love QC [facility] HospitalInMobi.; [employer], [employer] [facility] [employer], [employer] Comment on above: Method: Oral 10-10-2017 10:40-0400 Body weight 66.68 kg Cherry Khan RN [facility] Network[facility] Love QC [facility] HospitalInMobi.; [employer] [facility] [employer] [facility], [employer] 10-10-2017 10:40-0400 Diastolic blood pressure 90 mm[Hg] Cherry Khan RN [facility] NetworkSimpleCrew.; [employer], [employer] [facility] [place] [facility], [employer] Comment on above: Patient Position: Sitting; Cuff Location : Left Arm; Cuff Size: Large 10-10-2017 10:40-0400 Heart rate 116 /min Cherry Khan RN [facility] NetworkSimpleCrew.; [employer], [employer] [facility] [employer] Comment on above: Pattern: Regular 10-10-2017 10:40-0400 Systolic blood pressure 141 mm[Hg] Cherry Khan RN [facility] NetworkSimpleCrew.; [employer], [employer] [facility] [place] Comment on above: Patient Position: Sitting; Cuff Location : Left Arm; Cuff Size: Large 09-27-2017 16:07-0400 Body height 147.32 cm Nolan WOLF MD Work Phone: [facility] [employer], [employer] [facility] [employer], [employer]. 09-27-2017 16:07-0400 Body mass index (BMI) [Ratio] 29.89 kg/m2 Nolan WOLF MD Work Phone: [facility]Crew.; [employer], [employer] [facility] [employer], [employer]. 09-27-2017 16:07-0400 Body surface area Derived from formula 1.58 m2 Nolan WOLF MD Work Phone: [employer]. 09-27-2017 16:07-0400 Body weight 64.86 kg Nolan WOLF MD Work Phone: [employer]. 09-27-2017 16:07-0400 Diastolic blood pressure 82 mm[Hg] Nolan WOLF MD Work Phone: [employer], [employer] [facility] [employer]. Comment on above: Patient Position: Sitting; Cuff Location : Left Arm; Cuff Size: Large 09-27-2017 16:07-0400 Heart rate 99 /min Nolan WOLF MD Work Phone: [employer]. Comment on above: Pattern: Regular 09-27-2017 16:07-0400 Systolic blood pressure 122 mm[Hg] Nolan WOLF MD Work Phone: [employer]. Comment on above: Patient Position: Sitting; Cuff Location : Left Arm; Cuff Size: Large 09-13-2017 15:06-0400 Body temperature 97.7 [degF] Nolan WOLF MD Work Phone: [employer]; [employer]. Comment on above: Method: Oral 09-13-2017 15:06-0400 Body weight 64.86 kg Nolan WOLF MD Work Phone: [employer]. 09-13-2017 15:06-0400 Diastolic blood pressure 90 mm[Hg] Nolan WOLF MD Work Phone: [employer]. Comment on above: Patient Position: Sitting; Cuff Location : Right Arm; Cuff Size: Large 09-13-2017 15:06-0400 Heart rate 116 /min Nolan WOLF MD Work Phone: [employer] [place], [employer]. Comment on above: Pattern: Regular 09-13-2017 15:06-0400 Systolic blood pressure 136 mm[Hg] Nolan WOLF MD Work Phone: [employer] [place], [employer]. Comment on above: Patient Position: Sitting; Cuff Location : Right Arm; Cuff Size: Large 09-20-2016 11:42-0400 Body temperature 97.9 [degF] Roxana Muir RN [employer] [place], [employer]. Comment on above: Method: Oral 09-20-2016 11:42-0400 Diastolic blood pressure 78 mm[Hg] Roxana Muir RN [employer] [place] Comment on above: Patient Position: Sitting; Cuff Location : Left Arm; Cuff Size: Standard 09-20-2016 11:42-0400 Heart rate 93 /min Roxana Muir RN [employer] [place], [employer]. Comment on above: Pattern: Regular 09-20-2016 11:42-0400 Inhaled oxygen concentration 21 % Roxana Muir RN [employer] [place] Comment on above: Room air 09-20-2016 11:42-0400 SaO2% (BldA) [Mass fraction] 93 % Roxana Muir RN [email or web address] [place] 09-20-2016 11:42-0400 Systolic blood pressure 136 mm[Hg] Roxana Muir RN [email or web address], [employer] [place] Comment on above: Patient Position: Sitting; Cuff Location : Left Arm; Cuff Size: Standard 07-20-2016 14:42-0500 Body temperature 97.6 [degF] Shantell Lopez RN [employer] [place] Comment on above: Method: Oral 07-20-2016 14:42-0500 Diastolic blood pressure 76 mm[Hg] Shantell Lopez RN [facility], Inc.; [facility], Inc[facility] Comment on above: Patient Position: Sitting; Cuff Location : Right Arm; Cuff Size: Large 07-20-2016 14:42-0500 Heart rate 99 /min Shantell Lopez RN [facility], Inc.; [facility], Inc[employer] Comment on above: Pattern: Regular 07-20-2016 14:42-0500 Systolic blood pressure 108 mm[Hg] Shnatell Lopez RN [facility], Inc.; [facility], Inc[facility] Comment on above: Patient Position: Sitting; Cuff Location : Right Arm; Cuff Size: Large 04-09-2016 10:38-0400 Body temperature 98.3 [degF] ENEDINA Roman [facility], Inc.; [facility], Inc. Comment on above: Method: Oral 04-09-2016 10:38-0400 Diastolic blood pressure 77 mm[Hg] ENEDINA MOLINA [facility], Inc.; [facility], Inc. Comment on above: Patient Position: Sitting; Cuff Location : Left Arm; Cuff Size: Standard 04-09-2016 10:38-0400 Heart rate 106 /min ENEDINA MOLINA [facility], Inc.; [facility], Inc. Comment on above: Pattern: Regular 04-09-2016 10:38-0400 Systolic blood pressure 107 mm[Hg] ENEDINA MOLINA [facility], Inc.; [facility], Inc. Comment on above: Patient Position: Sitting; Cuff Location : Left Arm; Cuff Size: Standard 04-07-2016 15:55-0400 Body temperature 98.4 [degF] MARY [facility], Inc.; [employer] [facility], Inc[employer] Comment on above: Method: Oral 04-07-2016 15:55-0400 Diastolic blood pressure 80 mm[Hg] MARY [facility], Inc.; [facility], Inc[facility] Comment on above: Patient Position: Sitting; Cuff Location : Left Arm; Cuff Size: Standard 04-07-2016 15:55-0400 Heart rate 108 /min MARY [facility] [employer] [facility] HospitalWhistle [employer] [facility] [employer] [facility], [employer] Comment on above: Pattern: Regular 04-07-2016 15:55-0400 Systolic blood pressure 112 mm[Hg] MARY TORRES [facility] [employer] [facility], Inc.; [facility] [employer] [facility], Inc[employer] Comment on above: Patient Position: Sitting; Cuff Location : Left Arm; Cuff Size: Standard 2016 10:41-0400 Body temperature 98.2 [degF] Roxana Muir RN [facility] [employer] [facility] HospitalInMobi.; [employer] [facility] [employer] [facility], Inc[employer] Comment on above: Method: Oral 2016 10:41-0400 Diastolic blood pressure 78 mm[Hg] Roxana Muir RN [facility] [employer] [facility], Inc[employer], [employer] [facility] [employer] [facility], [employer] Comment on above: Patient Position: Sitting; Cuff Location : Right Arm; Cuff Size: Standard 2016 10:41-0400 Heart rate 98 /min Roxana Muir RN [facility] [employer] [facility], Inc[employer], [employer] [facility] [place] [facility], [employer]. Comment on above: Pattern: Regular 2016 10:41-0400 Inhaled oxygen concentration 21 % Roxana Muir RN [facility] [place] [facility], Inc[employer], [employer] [facility] [place] [facility], Inc[employer] Comment on above: Room air 2016 10:41-0400 SaO2% (BldA) [Mass fraction] 97 % Roxana Muir RN [facility] [employer] [facility], [employer], [employer] [facility] [place] [facility], Inc[employer] 2016 10:41-0400 Systolic blood pressure 115 mm[Hg] Roxana Muir RN [facility] [place] [facility], [employer], [employer] [facility] [place] [facility], Inc[employer] Comment on above: Patient Position: Sitting; Cuff Location : Right Arm; Cuff Size: Standard 03-23-2016 14:07-0400 Body temperature 98.1 [degF] TALIA ALBARADO [facility] Love [facility] HospitalInMobi.; [employer] [facility] [employer] [facility] [place] Comment on above: Method: Oral 03-23-2016 14:07-0400 Diastolic blood pressure 77 mm[Hg] TALIA ALBARADO [facility] Comment on above: Patient Position: Sitting; Cuff Location : Left Arm; Cuff Size: Large 03-23-2016 14:07-0400 Heart rate 101 /min TALIA VERENA [facility] Comment on above: Pattern: Regular 03-23-2016 14:07-0400 Systolic blood pressure 120 mm[Hg] TALIA ALBARADO [facility] Inc[facility] Comment on above: Patient Position: Sitting; Cuff Location : Left Arm; Cuff Size: Large 08-02-2015 09:44-0500 Body temperature 98.4 [degF] MARY [facility], [facility].; [facility], Inc[facility] Comment on above: Method: Oral 08-02-2015 09:44-0500 Diastolic blood pressure 76 mm[Hg] MARY [facility] [employer] [facility] Hospital[facility].; [facility], Inc[facility] Comment on above: Patient Position: Sitting; Cuff Location : Left Arm; Cuff Size: Standard 08-02-2015 09:44-0500 Heart rate 106 /min [facility] Inc[facility] Comment on above: Pattern: Regular 08-02-2015 09:44-0500 Systolic blood pressure 106 mm[Hg] MARY [facility].; [facility], Inc[facility] Comment on above: Patient Position: Sitting; Cuff Location : Left Arm; Cuff Size: Standard 06-03-2015 15:07-0500 Body temperature 98 [degF] Shantell Lopez RN [facility] [employer] [facility].; [employer] [facility] [employer] [facility], [facility] Comment on above: Method: Oral 06-03-2015 15:07-0500 Diastolic blood pressure 94 mm[Hg] Shantell Lopez RN [facility].; [employer] [facility], Inc[facility] Comment on above: Patient Position: Sitting; Cuff Location : Right Arm; Cuff Size: Large 06-03-2015 15:07-0500 Heart rate 82 /min hSantell Lopez RN [facility] [employer] [facility] [place] [facility] [employer] [facility], [facility] Comment on above: Pattern: Regular 06-03-2015 15:07-0500 Systolic blood pressure 149 mm[Hg] Shantell Lopez RN [facility] [employer] [facility], [facility].; [employer], [employer] [facility] [employer] [facility], Inc[facility] Comment on above: Patient Position: Sitting; Cuff Location : Right Arm; Cuff Size: Large 11-04-2014 16:04-0400 Body temperature 98.1 [degF] Cherry Khan RN [facility] [employer] [facility] [place], [employer]. [facility] [employer] [facility], Inc[facility] Comment on above: Method: Oral 11-04-2014 16:04-0400 Diastolic blood pressure 76 mm[Hg] Cherry Khan RN [facility] [employer] [facility], [facility].; [employer], [employer]. [facility] [employer], [employer] Comment on above: Patient Position: Sitting; Cuff Location : Left Arm; Cuff Size: Large 11-04-2014 16:04-0400 Systolic blood pressure 124 mm[Hg] Cherry Khan RN [facility] [employer] [facility], [facility].; [employer], [employer] [facility] [employer], [employer] Comment on above: Patient Position: Sitting; Cuff Location : Left Arm; Cuff Size: Large 05-15-2014 09:53-0500 Body temperature 98.2 [degF] Shantell Lopez RN [facility] [employer] [facility] [place], [employer] [facility] [employer], [employer] Comment on above: Method: Oral 05-15-2014 09:53-0500 Diastolic blood pressure 86 mm[Hg] Shantell Lopez RN [facility] [employer] [facility], Inc.; [employer], [employer] [facility] [employer] [facility], Inc[facility] Comment on above: Patient Position: Sitting; Cuff Location : Left Arm; Cuff Size: Standard 05-15-2014 09:53-0500 Heart rate 99 /min Shantell Lopez RN [facility] [employer] [facility] [place], [employer] [facility] [employer] [facility], Inc[facility] Comment on above: Pattern: Regular 05-15-2014 09:53-0500 Systolic blood pressure 132 mm[Hg] Shantell Lopez RN [facility] [employer] [facility] [place], [employer] [facility] [employer] [facility], Inc[facility] Comment on above: Patient Position: Sitting; Cuff Location : Left Arm; Cuff Size: Standard 02-12-2014 15:39-0400 Body height 137.16 cm Cherry Khan RN [facility] Inc[facility] 02-12-2014 15:39-0400 Body mass index (BMI) [Ratio] 34.36 kg/m2 Cherry Khan RN [facility] [employer] [facility] [employer] [facility] 02-12-2014 15:39-0400 Body surface area Derived from formula 1.5 m2 Cherry Khan RN [facility] [employer] [facility], [facility].; [employer] [facility] [employer] [facility], [facility] 02-12-2014 15:39-0400 Body temperature 98.1 [degF] Cherry Khan RN [facility] [employer] [facility] [place] [facility] [employer] [facility] [place] Comment on above: Method: Oral 02-12-2014 15:39-0400 Body weight 64.64 kg Cherry Khan RN [facility] [employer] [facility], [facility].; [employer] [facility] [employer] [facility] 02-12-2014 15:39-0400 Diastolic blood pressure 84 mm[Hg] Cherry Khan RN [facility] [employer] [facility] [place] [facility] [employer] [facility] [place]. Comment on above: Patient Position: Sitting; Cuff Location : Left Arm; Cuff Size: Large 02-12-2014 15:39-0400 Heart rate 94 /min Cherry Khan RN [facility] [employer] [facility], [facility].; [employer] [facility] [employer] [facility] [place]. Comment on above: Pattern: Regular 02-12-2014 15:39-0400 Systolic blood pressure 132 mm[Hg] Cherry Khan RN [facility] [employer] [facility], [facility] [employer] [facility] [employer] [facility] [place]. Comment on above: Patient Position: Sitting; Cuff Location : Left Arm; Cuff Size: Large 12-12-2013 11:45-0400 Body temperature 98.5 [degF] Shantell Lopez RN [facility] [employer] [facility], [facility] [employer] [facility] [employer] [facility] [place] Comment on above: Method: Oral 12-12-2013 11:45-0400 Diastolic blood pressure 84 mm[Hg] Shantell Lopez RN [place] [employer] [facility] HospitalIn[facility].; [employer] [facility] [employer] [facility] [place] Comment on above: Patient Position: Sitting; Cuff Location : Left Arm; Cuff Size: Large 12-12-2013 11:45-0400 Heart rate 117 /min Shantell Lopez RN [facility] [employer] [facility] [place], [employer] [facility] [place] [employer] [facility], [facility] Comment on above: Pattern: Regular 12-12-2013 11:45-0400 Systolic blood pressure 123 mm[Hg] Shantell Lopez RN [facility] NetworkI [facility] HospitalIn[facility].; [employer] [facility] [employer] [facility] [place] Comment on above: Patient Position: Sitting; Cuff Location : Left Arm; Cuff Size: Large 08-16-2013 16:05-0400 Body temperature 98.3 [degF] Cherry Khan RN [facility] [employer] [facility] HospitalIn[facility].; [employer], [employer]. [facility] [place] [employer] [facility] [place] Comment on above: Method: Oral 08-16-2013 16:05-0400 Diastolic blood pressure 70 mm[Hg] Cherry Khan RN [facility] Network[facility] HospitalIn[facility].; [employer], [employer]. [facility] [place] [employer] [facility] [place] Comment on above: Patient Position: Sitting; Cuff Location : Left Arm; Cuff Size: Large 08-16-2013 16:05-0400 Systolic blood pressure 126 mm[Hg] Cherry Khan RN [facility] [employer] [facility]In[facility].; [employer], [employer]. [facility] [place] [employer] [facility], [facility] Comment on above: Patient Position: Sitting; Cuff Location : Left Arm; Cuff Size: Large 04-07-2013 09:09-0400 Body temperature 99.4 [degF] Shantell Lopez RN [facility] [employer] [facility] HospitalIn[facility].; [employer], [employer]. [facility] [place] [employer] [facility] [place] Comment on above: Method: Oral 04-07-2013 09:09-0400 Diastolic blood pressure 84 mm[Hg] Shantell Lopez RN [facility] [employer] [employer] [facility] HospitalInM[facility].; [employer], [employer]. [facility] [place] [employer] [facility], [facility] Comment on above: Patient Position: Sitting; Cuff Location : Left Arm; Cuff Size: Large 04-07-2013 09:09-0400 Heart rate 112 /min Shantell Lopez RN [facility] [employer] [employer] [facility] [place], [employer] [facility] [place] [employer] [facility], [facility] Comment on above: Pattern: Regular 04-07-2013 09:09-0400 Systolic blood pressure 121 mm[Hg] Shantell Lopez RN [facility] [employer] [facility] HospitalIn[facility].; [facility] [place]. Comment on above: Patient Position: Sitting; Cuff Location : Left Arm; Cuff Size: Large 02-12-2013 10:21-0400 Diastolic blood pressure 82 mm[Hg] Cherry Khan RN [facility] [employer] [facility] HospitalIn[facility].; [employer], [employer] [facility] [employer] [facility], [facility] Comment on above: Patient Position: Sitting; Cuff Location : Left Arm; Cuff Size: Large 02-12-2013 10:21-0400 Heart rate 88 /min Cherry Khan RN [facility] [employer] [facility] HospitalIn[facility].; [employer] [facility] [employer] [facility] [place]. Comment on above: Pattern: Regular 02-12-2013 10:21-0400 Systolic blood pressure 136 mm[Hg] Cherry Khan RN [facility] [employer] [facility] HospitalIn[facility].; [employer], [employer] [facility] [employer] [facility] [place]. Comment on above: Patient Position: Sitting; Cuff Location : Left Arm; Cuff Size: Large 08-15-2012 15:12-0400 Body temperature 98.5 [degF] Cherry Khan RN [facility] [employer] [facility] HospitalIn[facility].; [employer] [facility] [employer] [facility] [place]. Comment on above: Method: Oral 08-15-2012 15:12-0400 Diastolic blood pressure 99 mm[Hg] Cherry Khan RN [facility] NetworkI Love QC [facility] HospitalInMobi.; [employer], Inc[employer] [facility] [employer] [facility] [place]. Comment on above: Patient Position: Sitting; Cuff Location : Left Arm; Cuff Size: Large 08-15-2012 15:12-0400 Heart rate 96 /min Cherry Khan RN [facility] [employer] [facility]InM[facility].; [employer], [employer] [facility] [employer] [facility] [place]. Comment on above: Pattern: Regular 08-15-2012 15:12-0400 Systolic blood pressure 137 mm[Hg] Cherry Khan RN [facility] NetworkI [facility] QC [facility] HospitalInM[facility].; [employer] [facility] [employer] [facility] [place]. Comment on above: Patient Position: Sitting; Cuff Location : Left Arm; Cuff Size: Large 06-17-2012 09:34-0500 Body temperature 98.4 [degF] Cherry Khan RN [facility] NetworkI Love QC [facility] HospitalInM[facility].; [employer], [employer] [facility] [employer] [facility] HospitalIn[facility]. Comment on above: Method: Oral 06-17-2012 09:34-0500 Diastolic blood pressure 90 mm[Hg] Cherry Khan RN [facility] NetworkI [facility] QC [facility]InM[facility].; [employer], Inc. [facility] [place] [employer] [facility] [place]. Comment on above: Patient Position: Sitting; Cuff Location : Left Arm; Cuff Size: Large 06-17-2012 09:34-0500 Heart rate 109 /min Cherry Khan RN [facility] NetworkI [facility] QC [facility] HospitalInM[facility].; [employer], [employer]. [facility] [place] [employer] [facility], [facility] Comment on above: Pattern: Regular 06-17-2012 09:34-0500 Systolic blood pressure 133 mm[Hg] Cherry Khan RN [facility] NetworkI [facility] HospitalInM[facility].; [employer], [employer]. [facility] [place] [employer] [facility] HospitalInM[facility]. Comment on above: Patient Position: Sitting; Cuff Location : Left Arm; Cuff Size: Large 12-02-2011 14:13-0400 Body temperature 98.5 [degF] [facility] [place] [facility] [place] [employer]I [employer] [facility] HospitalInM[facility].; [employer], [employer]. [facility] [place] [facility] [place]. Comment on above: Method: Oral 12-02-2011 14:13-0400 Diastolic blood pressure 82 mm[Hg] ENEDINA Roman [facility] [employer] [place] [facility], [facility] Comment on above: Patient Position: Sitting; Cuff Location : Left Arm; Cuff Size: Standard 12-02-2011 14:13-0400 Heart rate 113 /min ENEDINA Roman [facility] [employer] [place], [employer] Comment on above: Pattern: Regular 12-02-2011 14:13-0400 Systolic blood pressure 131 mm[Hg] ENEDINA Roman [facility] [employer], [employer]. [facility] [place] [employer] [facility], [facility] Comment on above: Patient Position: Sitting; Cuff Location : Left Arm; Cuff Size: Standard 11-10-2011 08:41-0400 Body height 137.16 cm ENEDINA Roman MOLINA [employer] [place], [employer] 11-10-2011 08:41-0400 Body mass index (BMI) [Ratio] 33.51 kg/m2 ENEDINA Roman [employer] [place], [employer] 11-10-2011 08:41-0400 Body surface area Derived from formula 1.48 m2 ENEDINA Roman MOLINA [facility] [employer] [facility], [facility].; [facility], Inc[facility] 11-10-2011 08:41-0400 Body weight 63.05 kg GODWINNicole Roman MOLINA [facility], Inc[facility] 11-10-2011 08:41-0400 Diastolic blood pressure 79 mm[Hg] ENEDINA Roman MOLINA [facility] [employer] [facility], [facility].; [employer] [facility] [employer] [facility], [facility] Comment on above: Patient Position: Sitting; Cuff Location : Left Arm; Cuff Size: Standard 11-10-2011 08:41-0400 Systolic blood pressure 111 mm[Hg] GODWINNicole Roman MOLINA [facility] [employer] [facility] HospitalWhistle Group Inc.; [employer] [facility] [employer] [facility], [facility] Comment on above: Patient Position: Sitting; Cuff Location : Left Arm; Cuff Size: Standard 08-10-2011 08:58-0500 Body height 137.16 cm ENEDINA Roman MOLINA [facility] [employer] [facility] HospitalWh[facility] Inc.; [facility] [employer] [facility], [facility] 08-10-2011 08:58-0500 Body mass index (BMI) [Ratio] 33.51 kg/m2 GODWINNicole Roman MOLINA [facility] [employer] [facility] HospitalWh[facility] Inc.; [facility], Inc[facility] 08-10-2011 08:58-0500 Body surface area Derived from formula 1.48 m2 ENEDINA Roman MOLINA [facility] [employer] [facility], [facility].; [facility], Inc[facility] 08-10-2011 08:58-0500 Body weight 63.05 kg ENEDINA Roman MOLINA [facility] [employer] [facility], [facility].; [facility] [employer] [facility], [facility] 08-10-2011 08:58-0500 Diastolic blood pressure 94 mm[Hg] ENEDINA Roman MOLINA [facility] [employer] [facility], [facility].; [facility] [employer] [facility], [facility] Comment on above: Patient Position: Sitting; Cuff Location : Left Arm; Cuff Size: Standard 08-10-2011 08:58-0500 Heart rate 98 /min ENEDINA MOLINA [place] [employer] [facility] HospitalWh[facility] Inc.; [place] [employer] [facility], [facility] Comment on above: Pattern: Regular 08-10-2011 08:58-0500 Systolic blood pressure 132 mm[Hg] ENEDINA MOLINA [facility], Inc[facility] Comment on above: Patient Position: Sitting; Cuff Location : Left Arm; Cuff Size: Standard 06-09-2011 13:07-0500 Body temperature 98.3 [degF] Roxana Muir RN [facility] [place] [employer] [facility], [facility] Comment on above: Method: Oral 06-09-2011 13:07-0500 Diastolic blood pressure 80 mm[Hg] Roxana Muir RN [facility], [facility], Inc[facility] Comment on above: Patient Position: Sitting; Cuff Location : Left Arm; Cuff Size: Standard 06-09-2011 13:07-0500 Heart rate 96 /min Roxana Muir RN [facility] [employer] [facility] [employer] [facility], [facility] Comment on above: Pattern: Regular 06-09-2011 13:07-0500 Systolic blood pressure 111 mm[Hg] Roxana Muir RN [facility], [place] [facility], Inc[facility] Comment on above: Patient Position: Sitting; Cuff Location : Left Arm; Cuff Size: Standard 04-05-2011 10:07-0400 Body weight 52.16 kg Cherry Khan RN [facility] HealthcareIn[facility].; [facility] [employer] [facility], [facility] 04-05-2011 10:07-0400 Diastolic blood pressure 83 mm[Hg] Cherry Khan RN [facility]In[facility].; [facility], Inc[facility] Comment on above: Patient Position: Sitting; Cuff Location : Left Arm; Cuff Size: Large 04-05-2011 10:07-0400 Heart rate 115 /min Cherry Khan RN [facility] [employer] [facility] [place] [facility] [employer] [facility], [facility] Comment on above: Pattern: Regular 04-05-2011 10:07-0400 Systolic blood pressure 135 mm[Hg] Cherry Khan RN [facility] [employer] [facility] [place] [facility] [employer] [facility], [facility] Comment on above: Patient Position: Sitting; Cuff Location : Left Arm; Cuff Size: Large 03-24-2011 14:46-0400 Body temperature 98.4 [degF] Roxana Muir RN [facility], [facility] [employer] [facility], [facility] Comment on above: Method: Oral 03-24-2011 14:46-0400 Diastolic blood pressure 81 mm[Hg] Roxana Muir RN [facility], [facility] [employer] [facility], [facility] Comment on above: Patient Position: Sitting; Cuff Location : Left Arm; Cuff Size: Standard 03-24-2011 14:46-0400 Heart rate 103 /min Roxana Muir RN [facility], [facility] [employer] [facility] Comment on above: Pattern: Regular 03-24-2011 14:46-0400 Systolic blood pressure 137 mm[Hg] Roxana Muir RN [facility] [employer] [facility], [facility].; [facility] [employer] [facility], [facility] Comment on above: Patient Position: Sitting; Cuff Location : Left Arm; Cuff Size: Standard 03-03-2011 15:22-0400 Body temperature 98.2 [degF] Roxana Muir RN [facility] [employer] [facility], [facility].; [facility] [employer] [facility] Comment on above: Method: Oral 03-03-2011 15:22-0400 Diastolic blood pressure 49 mm[Hg] Roxana Muir RN [facility] [employer] [facility], [facility].; [facility] [employer] [facility] Comment on above: Patient Position: Sitting; Cuff Location : Left Arm; Cuff Size: Standard 03-03-2011 15:22-0400 Heart rate 130 /min Roxana Muir RN [facility] [employer] [facility] Comment on above: Pattern: Regular 03-03-2011 15:22-0400 Systolic blood pressure 82 mm[Hg] Roxana Muir RN [facility] [employer] [facility], [facility].; [employer] [facility] [employer] [facility], [facility] Comment on above: Patient Position: Sitting; Cuff Location : Left Arm; Cuff Size: Standard 02-17-2011 15:10-0400 Body temperature 97.9 [degF] Roxana Muir RN [facility] [employer] [facility], [facility].; [employer] [facility] [employer] [facility], [facility] Comment on above: Method: Oral 02-17-2011 15:10-0400 Diastolic blood pressure 63 mm[Hg] Roxana Muir RN [facility] [place] [facility] [employer] [facility] [place] Comment on above: Patient Position: Sitting; Cuff Location : Left Arm; Cuff Size: Standard 02-17-2011 15:10-0400 Heart rate 80 /min Roxana Muir RN [facility] [place] [facility] [employer] [facility] Comment on above: Pattern: Regular 02-17-2011 15:10-0400 Systolic blood pressure 94 mm[Hg] Roxana Muir RN [facility] [place] [facility] [employer] [facility] [place] Comment on above: Patient Position: Sitting; Cuff Location : Left Arm; Cuff Size: Standard 06-19-2010 15:53-0500 Body temperature 98.9 [degF] Cherry Khan RN [facility]In[facility].; [employer], [employer] [facility] [employer] [facility] [place] Comment on above: Method: Oral 06-19-2010 15:53-0500 Diastolic blood pressure 95 mm[Hg] Cherry Khan RN [facility] [employer] [facility] [employer] [facility] [place] Comment on above: Patient Position: Sitting; Cuff Location : Left Arm; Cuff Size: Large 06-19-2010 15:53-0500 Heart rate 106 /min Cherry Khan RN [facility] [place] [facility] [employer] [facility] Comment on above: Pattern: Regular 06-19-2010 15:53-0500 Systolic blood pressure 138 mm[Hg] Cherry Khan RN [facility] [employer] [facility] [place] [facility] [employer] [facility] Comment on above: Patient Position: Sitting; Cuff Location : Left Arm; Cuff Size: Large Encounters Encounter Date Encounter Type Care Provider Facility Start: 04-11-2025 ambulatory Kassie Polanco NP Facil ity:[facility] Start: 04-02-2025 End: 04-03-2025 Emergency department patient visit KILO MICHAEL [facility] Start: 03-28-2025 ambulatory Kassie Polanco NP Facil [facility]y:[facility] Start: 03-28-2025 End: 04-05-2025 ambulatory Kassie Polanco NP Facility:[facility] Start: 03-07-2025 ambulatory Kassie Sherri LAW ENFORCEMENT DIRECTOR Facil ity:[facility] Start: 03-07-2025 Non-patient / Non-visit Dr. Savannah Kinney MD -[facility] Work Phone: Start: 03-07-2025 End: 03-18-[address] [facility] Work Phone: Start: 03-07-2025 End: 03-18-2025 ambulatory Kassie Polanco NP-C Work Phone: -[facility] Start: 02-21-2025 ambulatory Kassie Polanco LAW ENFORCEMENT DIRECTOR Facil ity:[facility] Start: 02-21-2025 Non-patient / Non-visit Dr. Savannah Kinney MD -[facility] Work Phone: Start: 02-21-2025 End: 03-05-2025 ambulatory Kassie Polanco LAW ENFORCEMENT DIRECTOR-C Work Phone: -[facility] Start: 02-21-2025 End: 03-05-[address] Savannah Kinney MD -[facility] Work Phone: Start: 02-14-2025 ambulatory Kassie Polanco NP Facil ity:[facility] Start: 02-14-2025 Non-patient / Non-visit Dr. Savannah Kinney MD -[facility] Work Phone: Start: 02-07-2025 ambulatory Kassie Polanco NP Facil ity:[facility] Start: 02-07-2025 Non-patient / Non-visit Dr. Savannah Kinney MD -[facility] Work Phone: Start: 01-31-2025 Non-patient / Non-visit Dr. Savannah Kinney MD -[facility] Work Phone: Start: 01-31-2025 End: 02-03-2025 ambulatory Kassie Polanco NP-C Work Phone: -[facility] Start: 01-31-2025 End: 02-03-[address] Savannah Kinney MD -[facility] Work Phone: Start: 01-30-2025 End: 01-30-2025 Patient encounter procedure Shell ARELLANO -[facility] Work Phone: Start: 01-30-2025 End: 01-30-2025 ambulatory Kassie Polanco NP-C Work Phone: -[facility] Start: 01-24-2025 ambulatory Kassie Polanco NP Facil ity:[facility] Start: 01-24-2025 Non-patient / Non-visit Dr. Savannah Kinney MD -[facility] Work Phone: Start: 01-24-[address] Sanaz Kinney MD -[facility] Work Phone: Start: 01-22-2025 ambulatory Kassie Polanco NP Facil ity:[facility] Start: 01-22-2025 Non-patient / Non-visit Mario Rai DO -[facility] Start: 01-22-2025 End: 01-22-2025 Admission to same day surgery center Mariochip Rai -Endoscopy Work Phone: Start: 01-22-2025 End: 01-22-2025 ambulatory Kassie Polanco NP-C Work Phone: -Endoscopy Start: 01-17-2025 ambulatory Savannah Tillmani ty:[facility] Start: 01-17-2025 Non-patient / Non-visit Dr. Savannah Kinney MD -[facility] Work Phone: Start: 01-17-[address] Sanaz Kinney MD -[facility] Work Phone: Start: 01-15-2025 End: 01-15-2025 ambulatory Kassie Polanco NP-C Work Phone: -Cat Scan [facility] Start: 01-15-2025 End: 01-15-[address] Enzo Hernandez MD -Cat Scan [facility] Work Phone: Start: 01-15-2025 End: 01-15-2025 ambulatory Enzo Hernandez Facility:[facility] Start: 01-10-2025 ambulatory Savannah Valencia ty:[facility] Start: 01-10-2025 Non-patient / Non-visit Dr. Savannah Kinney MD -[facility] Work Phone: Start: 01-03-2025 ambulatory Kassie Polanco NP Facil ity:[facility] Start: 01-03-2025 Non-patient / Non-visit Dr. Savannah Kinney MD -[facility] Work Phone: Start: 01-03-2025 End: 01-03-[address] Savannah Kinney MD -[facility] Work Phone: Start: 01-03-2025 End: 01-03-2025 ambulatory Kassie Polanco NP-C Work Phone: -[facility] Start: 12-14-2024 End: 12-14-2024 ambulatory KASSIE POLANCO [facility] Start: 12-13-2024 ambulatory No Primary Car e Physician Facility:[facility] Start: 12-13-2024 Non-patient / Non-visit Dr. Savannah Kinney MD -[facility] Work Phone: Start: 12-13-2024 End: 12-13-2024 ambulatory Kassie Polanco NP-C Work Phone: -[facility] Start: 12-13-2024 End: 12-13-[address] Savannah Kinney MD -[facility] [place] Work Phone: Start: 12-06-2024 ambulatory No Primary Car e Physician Facility:[facility] Start: 12-06-2024 Non-patient / Non-visit Dr. Savannah Kinney MD -[facility] Work Phone: Start: 11-29-2024 Non-patient / Non-visit Dr. Brett Vincent MD -[facility] Start: 11-29-2024 End: 12-03-2024 ambulatory Kassie Polanco LAW ENFORCEMENT DIRECTOR-C Work Phone: -[facility] Start: 11-29-2024 End: 12-03-[address] Savannah Kinney MD -[facility] Work Phone: Start: 11-22-2024 ambulatory No Primary Car e Physician Facility:[facility] Start: 11-22-2024 Non-patient / Non-visit Dr. Savannah Kinney MD -[facility] Work Phone: Start: 10-25-2024 End: 10-26-2024 Emergency department patient visit VIKTOR ALEMAN [facility] Start: 08-21-2024 End: 08-21-2024 Patient encounter procedure Shell Brewer LAW ENFORCEMENT DIRECTOR-C -[facility] Work Phone: Start: 08-21-2024 End: 08-21-2024 ambulatory Kassie Polanco NP Facility:[facility] Start: 01-25-2023 End: 01-25-2023 ambulatory NAWAF BARAKATWRIGHT Facility:[facility] Start: 12-28-2022 End: 12-28-2022 ambulatory KASSIE POLANCO Facility:[facility] Start: 12-14-2022 End: 12-14-2022 ambulatory NAWAF BARAKATWRIGHT Facility:[facility] Start: 11-30-2022 End: 11-30-2022 ambulatory KASSIE POLANCO Facility:[facility] Start: 11-16-2022 End: 11-16-2022 ambulatory SHELL RTUH Facility:[facility] Start: 11-09-2022 End: 11-09-2022 ambulatory NAWAF Francisco GATHERWRIGHT Facility:[facility] Start: 10-26-2022 End: 10-26-2022 ambulatory NAWAF BARAKATWRIGHT Facility:[facility] Start: 10-08-2022 ambulatory KASSIE LUU ER [facility] Facility:[facility] Start: 10-05-2022 End: 10-08-2022 Evaluation and management of inpatient VIKTOR JARAMILLO Facility:[facility] Start: 09-28-2022 End: 09-29-2022 ambulatory NAWAF QUINN [facility] Start: 09-28-2022 End: 09-29-2022 ambulatory NAWAF QUINN [facility] Start: 09-28-2022 Encounter for other preprocedural examination KASSIE POLANCO [facility] Start: 09-23-2022 Non-patient / Non-visit LAW ENFORCEMENT DIRECTOR-C Kassie Polanco LAW ENFORCEMENT DIRECTOR Work Phone: [facility] Start: 09-23-2022 End: 10-03-2022 ambulatory LAW ENFORCEMENT DIRECTOR-C Kassie Polanco LAW ENFORCEMENT DIRECTOR Work Phone: [facility] Work Phone: Start: 09-23-2022 End: 10-03-2022 Discharged Recurring LAW ENFORCEMENT DIRECTOR-C Kassie Polanco LAW ENFORCEMENT DIRECTOR Work Phone: [facility] Start: 09-16-2022 Non-patient / Non-visit LAW ENFORCEMENT DIRECTOR-C Kassie Polanco LAW ENFORCEMENT DIRECTOR Work Phone: [facility] Start: 09-09-2022 Non-patient / Non-visit LAW ENFORCEMENT DIRECTOR-C Kassie Polanco LAW ENFORCEMENT DIRECTOR Work Phone: [facility] Start: 08-26-2022 Non-patient / Non-visit LAW ENFORCEMENT DIRECTOR-C Kassie Polanco LAW ENFORCEMENT DIRECTOR Work Phone: [facility] Start: 08-26-2022 End: 09-03-2022 ambulatory LAW ENFORCEMENT DIRECTOR-C Kassie Polanco LAW ENFORCEMENT DIRECTOR Work Phone: [facility] Work Phone: Start: 08-26-2022 End: 09-03-2022 Discharged Recurring LAW ENFORCEMENT DIRECTOR-C Kassie Polanco LAW ENFORCEMENT DIRECTOR Work Phone: [facility] Start: 08-12-2022 Non-patient / Non-visit LAW ENFORCEMENT DIRECTOR-C Kassie Polanco LAW ENFORCEMENT DIRECTOR Work Phone: [facility] Start: 08-05-2022 ambulatory Nawaf burnett MD Work Phone: Plastic Surgery Comment on above: Lucia wound Start: 08-05-2022 Non-patient / Non-visit LAW ENFORCEMENT DIRECTOR-C Kassie Polanco LAW ENFORCEMENT DIRECTOR Work Phone: [facility] Start: 08-04-2022 End: 08-04-2022 ambulatory NAWAF QUINN Facility:[facility] Start: 08-04-2022 End: 08-04-2022 Patient encounter procedure Nawaf Quinn MD Work Phone: Plastic Surgery Comment on above: Pressure injury of s acral region, stage 4 (HCC) (Primary Dx) Start: 07-29-2022 Non-patient / Non-visit LAW ENFORCEMENT DIRECTOR-C Kassie Polanco LAW ENFORCEMENT DIRECTOR Work Phone: [facility] Start: 07-29-2022 End: 08-03-2022 ambulatory LAW ENFORCEMENT DIRECTOR-C Kassie Polanco LAW ENFORCEMENT DIRECTOR Work Phone: [facility] Work Phone: Start: 07-29-2022 End: 08-03-2022 Discharged Recurring LAW ENFORCEMENT DIRECTOR-C Kassie Polanco LAW ENFORCEMENT DIRECTOR Work Phone: [facility] Start: 07-22-2022 Non-patient / Non-visit LAW ENFORCEMENT DIRECTOR-C Kassie Polanco LAW ENFORCEMENT DIRECTOR Work Phone: [facility] Start: 07-08-2022 Non-patient / Non-visit LAW ENFORCEMENT DIRECTOR-C Kassie Polanco LAW ENFORCEMENT DIRECTOR Work Phone: [facility] Start: 07-01-2022 Non-patient / Non-visit LAW ENFORCEMENT DIRECTOR-C Kassie Polanco LAW ENFORCEMENT DIRECTOR Work Phone: [facility] Start: 07-01-2022 End: 07-06-2022 Discharged Recurring LAW ENFORCEMENT DIRECTOR-C Kassie Polanco LAW ENFORCEMENT DIRECTOR Work Phone: [facility] Start: 06-24-2022 Non-patient / Non-visit LAW ENFORCEMENT DIRECTOR-C Kassie Polanco LAW ENFORCEMENT DIRECTOR Work Phone: [facility] Start: 06-10-2022 Non-patient / Non-visit LAW ENFORCEMENT DIRECTOR-C Kassie Polanco LAW ENFORCEMENT DIRECTOR Work Phone: [facility] Start: 06-03-2022 Non-patient / Non-visit LAW ENFORCEMENT DIRECTOR-C Kassie Polanco LAW ENFORCEMENT DIRECTOR Work Phone: [facility] Start: 06-03-2022 End: 06-05-2022 ambulatory LAW ENFORCEMENT DIRECTOR-C Kassie Polanco LAW ENFORCEMENT DIRECTOR Work Phone: [facility] Work Phone: Start: 06-03-2022 End: 06-05-2022 Discharged Recurring LAW ENFORCEMENT DIRECTOR-C Kassie Polanco LAW ENFORCEMENT DIRECTOR [facility] Start: 06-02-2022 End: 06-02-2022 Patient encounter procedure LAW ENFORCEMENT DIRECTOR-C Kassie Polanco LAW ENFORCEMENT DIRECTOR Work Phone: [facility]-Laboratory Start: 05-27-2022 Non-patient / Non-visit LAW ENFORCEMENT DIRECTOR-C Kassie Polanco LAW ENFORCEMENT DIRECTOR Work Phone: [facility] Start: 05-06-2022 Non-patient / Non-visit LAW ENFORCEMENT DIRECTOR-C Kassie Polanco LAW ENFORCEMENT DIRECTOR Work Phone: [facility] Start: 04-22-2022 Non-patient / Non-visit LAW ENFORCEMENT DIRECTOR-C Kassie Polanco LAW ENFORCEMENT DIRECTOR Work Phone: [facility] Start: 04-22-2022 End: 05-05-2022 ambulatory LAW ENFORCEMENT DIRECTOR-C Kassie Polanco LAW ENFORCEMENT DIRECTOR Work Phone: [facility] Work Phone: Start: 04-22-2022 End: 05-05-2022 Discharged Recurring LAW ENFORCEMENT DIRECTOR-C Kassie Polanco LAW ENFORCEMENT DIRECTOR [facility] Start: 04-08-2022 Non-patient / Non-visit LAW ENFORCEMENT DIRECTOR-C Kassie Polanco LAW ENFORCEMENT DIRECTOR Work Phone: [facility] Start: 03-25-2022 Non-patient / Non-visit LAW ENFORCEMENT DIRECTOR-C Kassie Polanco LAW ENFORCEMENT DIRECTOR Work Phone: [facility] Start: 03-25-2022 End: 04-05-2022 Discharged Recurring LAW ENFORCEMENT DIRECTOR-C Kassie Polanco LAW ENFORCEMENT DIRECTOR Work Phone: [facility] Start: 03-18-2022 Non-patient / Non-visit LAW ENFORCEMENT DIRECTOR-C Kassie Polanco LAW ENFORCEMENT DIRECTOR Work Phone: [facility] Start: 03-11-2022 Non-patient / Non-visit LAW ENFORCEMENT DIRECTOR-C Kassie Polanco LAW ENFORCEMENT DIRECTOR Work Phone: [facility] Start: 02-25-2022 Non-patient / Non-visit LAW ENFORCEMENT DIRECTOR-C Kassie Polanco LAW ENFORCEMENT DIRECTOR Work Phone: [facility] Start: 02-25-2022 End: 03-05-2022 ambulatory LAW ENFORCEMENT DIRECTOR-C Kassie Polanco LAW ENFORCEMENT DIRECTOR Work Phone: [facility] Work Phone: Start: 02-25-2022 End: 03-05-2022 Discharged Recurring LAW ENFORCEMENT DIRECTOR-C Kassie Polanco LAW ENFORCEMENT DIRECTOR Work Phone: [facility] Start: 02-18-2022 Non-patient / Non-visit LAW ENFORCEMENT DIRECTOR-C Kassie Polanco LAW ENFORCEMENT DIRECTOR Work Phone: [facility] Start: 02-11-2022 Non-patient / Non-visit LAW ENFORCEMENT DIRECTOR-C Kassie Polanco LAW ENFORCEMENT DIRECTOR Work Phone: [facility] Start: 02-04-2022 Non-patient / Non-visit LAW ENFORCEMENT DIRECTOR-C aKssie Polanco LAW ENFORCEMENT DIRECTOR Work Phone: [facility] Start: 01-28-2022 Non-patient / Non-visit LAW ENFORCEMENT DIRECTOR-C Kassie Polanco LAW ENFORCEMENT DIRECTOR Work Phone: [facility] Start: 01-28-2022 End: 02-03-2022 ambulatory LAW ENFORCEMENT DIRECTOR-C Kassie Polanco LAW ENFORCEMENT DIRECTOR Work Phone: [facility] Work Phone: Start: 01-28-2022 End: 02-03-2022 Discharged Recurring LAW ENFORCEMENT DIRECTOR-C Kassie Polanco LAW ENFORCEMENT DIRECTOR [facility] [place] Start: 01-21-2022 Non-patient / Non-visit LAW ENFORCEMENT DIRECTOR-C Kassie Polanco LAW ENFORCEMENT DIRECTOR Work Phone: [facility] Start: 01-21-2022 Registered Recurring LAW ENFORCEMENT DIRECTOR-C Evangelist Polanco LAW ENFORCEMENT DIRECTOR [facility] Start: 01-19-2022 End: 01-19-2022 Patient encounter procedure LAW ENFORCEMENT DIRECTOR-C Kassie Polanco LAW ENFORCEMENT DIRECTOR Work Phone: [facility] Start: 01-14-2022 Non-patient / Non-visit LAW ENFORCEMENT DIRECTOR-C Kassie Poalnco LAW ENFORCEMENT DIRECTOR Work Phone: [facility] Start: 01-07-2022 Non-patient / Non-visit LAW ENFORCEMENT DIRECTOR-C Kassie Polanco LAW ENFORCEMENT DIRECTOR Work Phone: [facility] Start: 12-24-2021 Non-patient / Non-visit LAW ENFORCEMENT DIRECTOR-C Kassie Polanco LAW ENFORCEMENT DIRECTOR Work Phone: [facility] Start: 12-24-2021 End: 01-03-2022 Discharged Recurring LAW ENFORCEMENT DIRECTOR-C Kassie Polanco LAW ENFORCEMENT DIRECTOR [facility] Start: 12-24-2021 Registered Recurring LAW ENFORCEMENT DIRECTOR-C Evangelist Polanco LAW ENFORCEMENT DIRECTOR [facility] Start: 12-17-2021 Non-patient / Non-visit LAW ENFORCEMENT DIRECTOR-C Kassie Polanco LAW ENFORCEMENT DIRECTOR Work Phone: [facility] Start: 10-28-2021 End: 10-28-2021 Patient encounter procedure LAW ENFORCEMENT DIRECTOR-C Kassie Polanco NP Work Phone: [facility]-Pre-Admission Testing Start: 10-12-2021 End: 10-12-2021 Patient encounter procedure [facility]-Cat Scan, [facility] Start: 10-09-2021 End: 10-09-2021 Patient encounter procedure [facility]-Radiology, [facility] Start: 04-30-2019 End: 04-30-2019 Historical Summary Roxana Muir RN [facility] Start: 03-12-2019 End: 03-12-2019 Historical Summary Roxana Muir RN [facility] [employer] [facility] Start: 10-03-2018 End: 10-03-2018 Office outpatient visit 15 minutes Roxana Muir RN [facility] [employer] [facility] Start: 09-23-2018 End: 09-23-2018 Medication Refill/Order Roxana Muir RN [facility] [employer] [facility] Start: 08-11-2018 End: 08-11-2018 Office outpatient visit 15 minutes Roxana Muir RN [facility] [facility] Start: 06-13-2018 End: 06-13-2018 Historical Summary Roxana Muir RN [facility] [facility] Start: 06-12-2018 End: 06-12-2018 Office outpatient visit 15 minutes Roxana Muir RN [facility] [facility] Start: 04-22-2018 End: 04-22-2018 Historical Summary Roxana Muir RN [facility] [employer] Start: 04-12-2018 End: 04-12-2018 Historical Summary Roxana Muir RN [employer] [facility] [employer] Start: 03-30-2018 End: 03-30-2018 Historical Summary Roxana Muir RN [facility] [employer] Start: 03-28-2018 End: 03-28-2018 Historical Summary Roxana Muir RN [employer] [facility] [employer] [facility] Start: 03-28-2018 End: 03-28-2018 Office outpatient visit 15 minutes Roxana Muir RN [facility] Start: 03-20-2018 End: 03-20-2018 Historical Summary Roxana Muir RN [facility] Start: 03-15-2018 End: 03-15-2018 Historical Summary Roxana Muir RN [facility] Start: 03-13-2018 End: 03-13-2018 Historical Summary Roxana Muir RN [facility] Start: 03-09-2018 End: 03-09-2018 Historical Summary Roxana Muir RN [facility] Start: 11-25-2017 End: 11-25-2017 Ambulatory LUIS ENRIQUE Francisco [facility] Start: 11-25-2017 End: 11-26-2017 Ambulatory CHRISTOPHE Nicole PENA [facility] Start: 10-13-2017 End: 10-13-2017 Medication Refill/Order Roxana Muir RN [facility] Start: 10-10-2017 End: 10-10-2017 Office outpatient visit 15 minutes Roxana Muir RN [facility] Start: 09-27-2017 End: 09-27-2017 Office outpatient visit 40 minutes Roxana Muir RN [facility] Start: 09-15-2017 End: 09-15-2017 Office outpatient visit 15 minutes Roxana Muir RN [facility] [employer] Start: 09-13-2017 End: 09-13-2017 Office outpatient visit 15 minutes Roxana Muir RN [facility] Start: 08-27-2017 End: 08-27-2017 Results Review Roxana Muir RN [facility] Start: 08-26-2017 End: 08-26-2017 Medication Refill/Order Roxana Muir RN [facility] Start: 08-22-2017 End: 08-22-2017 Lab Only Roxana Muir RN [facility] Start: 07-06-2017 End: 07-06-2017 Ambulatory LUIS ENRIQUE Francisco [facility] Start: 07-04-2017 End: 07-04-2017 Office outpatient visit 15 minutes Roxana Muir RN [facility] [employer] [facility] Start: 05-11-2017 End: 05-11-2017 Historical Summary Roxana Muir RN [facility] Start: 05-09-2017 End: 05-09-2017 Medication Refill/Order Roxana Muir RN [facility] Start: 05-05-2017 End: 05-05-2017 Lab Only Roxana Muir RN [facility] Start: 05-02-2017 End: 05-02-2017 Lab Only Roxana Muir RN [facility] Start: 09-20-2016 End: 09-20-2016 Medication Refill/Order Roxana Muir RN [facility] Start: 09-20-2016 End: 09-20-2016 Office outpatient visit 15 minutes Roxana Muir RN [facility] Start: 07-22-2016 End: 07-22-2016 Results Review Roxana Muir RN [facility] Start: 07-20-2016 End: 07-20-2016 Office outpatient visit 15 minutes Roxana Muir RN [facility] Start: 07-01-2016 End: 07-01-2016 Medication Refill/Order Roxana Muir RN [facility] Start: 06-08-2016 End: 06-08-2016 Lab Only Roxana Muir RN [facility] Start: 04-09-2016 End: 04-09-2016 Office outpatient visit 15 minutes Roxana Muir RN [facility] [employer] [facility] Start: 04-07-2016 End: 04-07-2016 Office outpatient visit 15 minutes Roxana Muir RN [facility] [employer] [facility] Start: 03-31-2016 End: 03-31-2016 Results Review Roxana Muir RN [facility] [employer] [facility] Start: 2016 End: 2016 Office outpatient visit 15 minutes Roxana Muir RN [facility] [employer] [facility] Start: 03-23-2016 End: 03-23-2016 Office outpatient visit 15 minutes Roxana Muir RN [facility] Start: 02-28-2016 End: 02-28-2016 Medication Refill/Order Roxana Muir RN [facility] Start: 02-17-2016 End: 02-17-2016 Lab Only Roxana Muir RN [facility] Start: 09-24-2015 End: 09-25-2015 Medication Refill/Order Roxana Muir RN [facility] Start: 09-22-2015 End: 09-22-2015 Medication Refill/Order Roxana Muir RN [facility] Start: 09-12-2015 End: 09-12-2015 Historical Summary Roxana Muir RN [facility] Start: 08-02-2015 End: 08-02-2015 Office outpatient visit 15 minutes Roxana Muir RN [facility] Start: 07-14-2015 End: 07-14-2015 Medication Refill/Order Roxana Muir RN [facility] Start: 06-30-2015 End: 06-30-2015 Medication Refill/Order Roxana Muir RN [facility] Start: 06-09-2015 End: 06-09-2015 Results Review Roxana Muir RN [facility] Start: 06-03-2015 End: 06-03-2015 Office outpatient visit 15 minutes Roxana Muir RN [facility] Start: 03-20-2015 End: 03-20-2015 Medication Refill/Order Roxana Muir RN [facility] Start: 03-04-2015 End: 03-04-2015 Medication Refill/Order Roxana Muir RN [facility] Start: 03-03-2015 End: 03-03-2015 Results Review Roxana Muir RN [facility] Start: 02-24-2015 End: 02-24-2015 Lab Only Roxana Muir RN [facility] Start: 11-13-2014 End: 11-13-2014 Follow-up encounter Roxana Muir RN [facility] Start: 11-12-2014 End: 11-12-2014 Office outpatient visit 15 minutes Roxana Muir RN [facility] Start: 11-04-2014 End: 11-04-2014 Office outpatient visit 15 minutes Roxana Muir RN [facility] Start: 09-07-2014 End: 09-07-2014 Medication Refill/Order Roxana Muir RN [facility] Start: 09-02-2014 End: 09-02-2014 Lab Only Roxana Muir RN [facility] Start: 07-05-2014 End: 07-05-2014 Results Review Roxana Muir RN [facility] Start: 06-26-2014 End: 06-26-2014 Lab Only Roxana Muir RN [facility] Start: 06-10-2014 End: 06-10-2014 Medication Refill/Order Roxana Muir RN [facility] Start: 06-04-2014 End: 06-04-2014 Results Review Roxana Muir RN [facility] Start: 05-15-2014 End: 05-15-2014 Patient encounter procedure Roxana Muir RN [facility] Start: 05-15-2014 End: 05-15-2014 Office outpatient visit 15 minutes Roxana Muir RN [facility] Start: 04-26-2014 End: 04-26-2014 Medication Refill/Order Roxana Muir RN [facility] Start: 04-23-2014 End: 04-23-2014 Lab Only Roxana Muir RN [facility] Start: 02-16-2014 End: 02-16-2014 Results Review Roxana Muir RN [facility] Start: 02-12-2014 End: 02-12-2014 Lab Only Roxana Muir RN [facility] Start: 02-12-2014 End: 02-12-2014 Office outpatient visit 15 minutes Roxana Muir RN [facility] Start: 12-17-2013 End: 12-17-2013 Follow-up encounter Roxana Muir RN [facility] Start: 12-17-2013 End: 12-17-2013 Historical Summary Roxana Muir RN [facility] Start: 12-12-2013 End: 12-12-2013 Patient encounter procedure Roxana Muir RN [facility] Start: 08-20-2013 End: 08-20-2013 Medication Refill/Order Roxana Muir RN [facility] Start: 08-20-2013 End: 08-20-2013 Results Review Roxana Muir RN [facility] Start: 08-16-2013 End: 08-16-2013 Lab Only Roxana Muir RN [facility] Start: 08-16-2013 End: 08-16-2013 Patient encounter procedure Roxana Muir RN [facility] Start: 07-28-2013 End: 07-28-2013 Medication Refill/Order Roxana Muir RN [facility] Start: 06-01-2013 End: 06-01-2013 Medication Refill/Order Roxana Muir RN [facility] Start: 04-11-2013 End: 04-11-2013 Results Review Roxana Muir RN [facility] Start: 04-07-2013 End: 04-07-2013 Patient encounter procedure Roxana Muir RN [facility] Start: 03-18-2013 End: 03-18-2013 Results Review Roxana Muir RN [facility] Start: 02-15-2013 End: 02-15-2013 Patient encounter procedure Roxana Muir RN [facility] Start: 02-12-2013 End: 02-12-2013 Medication Refill/Order Roxana Muir RN [facility] Start: 02-12-2013 End: 02-12-2013 Patient encounter procedure Roxana Muir RN [facility] Start: 08-15-2012 End: 08-15-2012 Patient encounter procedure Roxana Muir RN [facility] Start: 07-03-2012 End: 07-03-2012 Medication Refill/Order Roxana Muir RN [facility] Start: 07-01-2012 End: 07-01-2012 Medication Refill/Order Roxana Muir RN [facility] Start: 06-17-2012 End: 06-17-2012 Patient encounter procedure Roxana Muir RN [facility] Start: 12-02-2011 End: 12-02-2011 Patient encounter procedure Roxana Muir RN [facility] Start: 11-10-2011 End: 11-10-2011 Nursing evaluation of patient and report Roxana Muir RN [facility] Start: 10-21-2011 End: 10-21-2011 Procedure Order Roxana Muir RN [facility] Start: 08-10-2011 End: 08-10-2011 Nursing evaluation of patient and report Roxana Muir RN [facility] Start: 06-09-2011 End: 06-09-2011 Patient encounter procedure Roxana Muir RN [facility] Start: 06-03-2011 End: 06-03-2011 Medication Refill/Order Roxana Muir RN [facility] Start: 05-19-2011 End: 05-19-2011 Injection/immunization only Roxana Muir RN [facility] Start: 05-03-2011 End: 05-03-2011 Medication Refill/Order Roxana Muir RN [facility] Start: 04-30-2011 End: 04-30-2011 Medication Refill/Order Roxana Muir RN [facility] Start: 04-27-2011 End: 04-27-2011 Procedure Order Roxana Muir RN [facility] Start: 04-07-2011 End: 04-07-2011 Results Review Roxana Muir RN [facility] Start: 04-05-2011 End: 04-05-2011 Admission to same day surgery center Roxana Muir RN [facility] Start: 03-25-2011 End: 03-25-2011 Injection/immunization only Roxana Muir RN [facility] Start: 03-24-2011 End: 03-24-2011 Patient encounter procedure Roxana Muir RN [facility] Start: 03-03-2011 End: 03-03-2011 Patient encounter procedure Roxana Muir RN [facility] Start: 03-01-2011 End: 03-01-2011 Medication Refill/Order Roxana Muir RN [facility] Start: 02-17-2011 End: 02-17-2011 Patient encounter procedure Roxana Muir RN [facility] Start: 11-27-2010 End: 11-27-2010 Injection/immunization only Roxana Muir RN [facility] Start: 11-03-2010 End: 11-03-2010 Results Review Roxana Muir RN [facility] Start: 10-27-2010 End: 10-27-2010 Historical Summary Roxana Muir RN [facility] Start: 08-27-2010 End: 08-27-2010 Injection/immunization only Roxana Muir RN [facility] Start: 07-31-2010 End: 07-31-2010 Medication Refill/Order Roxana Muir RN [facility] Start: 07-30-2010 End: 07-30-2010 Historical Summary Roxana Muir RN [facility] Start: 07-15-2010 End: 07-15-2010 Phone Encounter Roxana Muir RN [facility] Start: 07-06-2010 End: 07-06-2010 Results Review Roxana Muir RN [facility] Start: 07-03-2010 End: 07-03-2010 Nursing evaluation of patient and report Roxana Muir RN [facility] Start: 06-19-2010 End: 06-19-2010 Patient encounter procedure Roxana Muir RN [facility] Start: 06-11-2010 End: 06-11-2010 Patient encounter procedure Roxana Muir RN [facility] Start: 05-22-2010 End: 05-22-2010 Medication Refill/Order Roxana Muir RN [facility] Start: 03-19-2010 End: 03-19-2010 Nursing evaluation of patient and report Roxana Muir RN [facility] Start: 03-18-2010 End: 03-18-2010 Historical Summary Roxana Muir RN [facility] Start: 02-16-2010 End: 02-16-2010 Historical Summary Roxana Muir RN [facility] Start: 11-07-2009 End: 11-07-2009 Historical Summary Roxana Muir RN [facility] [employer] Procedures Date Procedure Procedure Detail Performing Clinician Start: 04-03-2025 Urinalysis KILO RODRIGUEZ Comment on above: Result Comment: URIN ALYSIS Performed By: #### [id number] #### [facility],[address] [place] [address] Start: 01-22-2025 Colonoscopy Kassie muhammad LAW ENFORCEMENT DIRECTOR-C Work Phone: Start: 01-15-2025 CT of abdomen and pe lvis without contrast Kassie Polanco LAW ENFORCEMENT DIRECTOR-C Work Phone: Start: 01-03-2025 Anaerobic microbial culture Kassie Polanco LAW ENFORCEMENT DIRECTOR-C Work Phone: Start: 01-03-2025 Gram stain microscopy Abel Polanco LAW ENFORCEMENT DIRECTOR-C Work Phone: Start: 01-03-2025 End: 01-03-2025 Microbial culture, routine Kassie francisco LAW ENFORCEMENT DIRECTOR-C Work Phone: Start: 11-22-2024 Anaerobic microbial culture Kassie Polanco LAW ENFORCEMENT DIRECTOR-C Work Phone: Start: 11-22-2024 Gram stain microscopy D justino Polanco LAW ENFORCEMENT DIRECTOR-C Work Phone: Start: 11-22-2024 End: 11-22-2024 Microbial culture, routine Kassie francisco LAW ENFORCEMENT DIRECTOR-C Work Phone: Start: 10-25-2024 Urinalysis KILO SUHSMA CHEUNGY Comment on above: Result Comment: URIN ALYSIS Performed By: #### [id number] #### [facility],[address] [place] [address] Start: 10-05-2022 Antibody screen CHELSY POLANCO Comment on above: Order Comment: Speci men Type: BLOOD SPECIMENOrdering Facility: [facility] Address: [address] [place] [address] Performed By: #### 1 [id number] #### [facility] CLIA [id number] [address] OF [place] #### BACPCR #### [facility] CLIA [id number] [address] [facility] [id number] [place] [address] OF [place] Start: 01-19-2022 Radiography of sacro coccygeal spine LAW ENFORCEMENT DIRECTOR-C Kassie Polanco LAW ENFORCEMENT DIRECTOR Work Phone: Start: 01-19-2022 X-ray of lumbar spin e, two or three views LAW ENFORCEMENT DIRECTOR-C Kassie Polanco LAW ENFORCEMENT DIRECTOR Work Phone: Start: 10-12-2021 CT of abdomen [...] CHRISTOPHE Roman Work Phone: Anaerobic microbial culture LAW ENFORCEMENT DIRECTOR-C Kassie Polanco LAW ENFORCEMENT DIRECTOR Work Phone: Anaerobic microbial culture LAW ENFORCEMENT DIRECTOR-C Kassie Polanco LAW ENFORCEMENT DIRECTOR Work Phone: Anaerobic microbial culture LAW ENFORCEMENT DIRECTOR-C Kassie Polanco LAW ENFORCEMENT DIRECTOR Work Phone: Anaerobic microbial culture LAW ENFORCEMENT DIRECTOR-C Kassie Polanco LAW ENFORCEMENT DIRECTOR Work Phone: Investigation of tra nsfusion reaction LAW ENFORCEMENT DIRECTOR-Martell Polanco LAW ENFORCEMENT DIRECTOR Work Phone: Investigation of tra nsfusion reaction LAW ENFORCEMENT DIRECTOR-C Kassie Polanco LAW ENFORCEMENT DIRECTOR Work Phone: Investigation of tra nsfusion reaction LAW ENFORCEMENT DIRECTOR-Martell Polanco LAW ENFORCEMENT DIRECTOR Work Phone: Investigation of tra nsfusion reaction LAW ENFORCEMENT DIRECTOR-C Kassie Polanco LAW ENFORCEMENT DIRECTOR Work Phone: Microbial culture, routine N P-C Kassie Polanco LAW ENFORCEMENT DIRECTOR Work Phone: Microbial culture, routine N P-C Kassie Polanco LAW ENFORCEMENT DIRECTOR Work Phone: Microbial culture, routine N P-C Kassie Polanco LAW ENFORCEMENT DIRECTOR Work Phone: Microbial culture, routine N P-C Kassie Polanco LAW ENFORCEMENT DIRECTOR Work Phone: Mitrofanoff appendicovesicostomy present RAAD NAGY Comment on above: (AKA Umbilical urina ry stoma); uses for self-catheterization Plan of Treatment Date Care Activity Detail Author Start: 03-28-2025 Non-patient / Non-visit Non-patient / Non-visit -[facility] Work Phone: Start: 03-28-2025 Registered Recurring Pressure ulcer of sacral region, stage 3 [facility] Work Phone: Start: 01-22-2025 Colonoscopy DIAGNOSTIC COLONOSCOPY [facility] Start: 01-22-2025 Colonoscopy flx dx w/collj spec when pfrmd DIAGNOSTIC COLONOSCOPY [facility] Start: 01-22-2025 Patient discharge [facility] Start: 01-03-2025 Anaerobic Culture Anaerobic Culture [facility] Start: 01-03-2025 Wound Culture Wound Culture [facility] Start: 01-03-2025 Source specific culture [facility] Start: 08-04-2022 End: 10-04-2022 aPTT in Platelet poor plasma by Coagulation assay ACTIVATED PTT Lab Routine Pressure injury of sacral region, stage 4 (HCC) Expected: 08/04/2022, Expires: 10/04/2022 [facility] Work Phone: Comment on above: Expected: 08/04/2022 , Expires: 10/04/2022 Start: 08-04-2022 End: 10-04-2022 CBC W Auto Differential panel - Blood CBC + DIFF Lab Routine Pressure injury of sacral region, stage 4 (HCC) Expected: 08/04/2022, Expires: 10/04/2022 [facility] Work Phone: Comment on above: Expected: 08/04/2022 , Expires: 10/04/2022 Start: 08-04-2022 End: 10-04-2022 Comprehensive metabolic 2000 panel - Serum or Plasma COMP METABOLIC PANEL Lab Routine Pressure injury of sacral region, stage 4 (HCC) Expected: 08/04/2022, Expires: 10/04/2022 [facility] Work Phone: Comment on above: Expected: 08/04/2022 , Expires: 10/04/2022 Start: 08-04-2022 End: 10-04-2022 Hepatic function 2000 panel - Serum or Plasma HEPATIC FUNCTION PNL Lab Routine Pressure injury of sacral region, stage 4 (HCC) Expected: 08/04/2022, Expires: 10/04/2022 [facility] Work Phone: Comment on above: Expected: 08/04/2022 , Expires: 10/04/2022 Start: 08-04-2022 End: 10-04-2022 Prealbumin [Mass/volume] in Serum or Plasma PREALBUMIN BLD Lab Routine Pressure injury of sacral region, stage 4 (HCC) Expected: 08/04/2022, Expires: 10/04/2022 [facility] Work Phone: Comment on above: Expected: 08/04/2022 , Expires: 10/04/2022 Start: 08-04-2022 End: 10-04-2022 PT panel - Platelet poor plasma by Coagulation assay PROTHROMBIN TIME/PT Lab Routine Pressure injury of sacral region, stage 4 (HCC) Expected: 08/04/2022, Expires: 10/04/2022 [facility] Work Phone: Comment on above: Expected: 08/04/2022 , Expires: 10/04/2022 Start: 06-06-2022 DEPRESSION ASSESSMENT DEPRESSION ASS ESSMENT [facility] Start: 2020 COLOGUARD (FIT-DNA) COLOGUARD (FIT-D NA) [facility] Start: 2020 Colonoscopy COLONOSCOPY [facility] Start: 2020 COLORECTAL CANCER SCREENING COLORECTAL CANCER SCREENING [facility] Start: [address] COLONOGRAPHY [facility] Start: 2020 DIABETES SCREEN DIABETES SCREEN [facility] Start: 2020 FECAL OCCULT BLOOD FECAL OCCULT BLOO D [facility] Start: 2020 LIPID SCREEN LIPID SCREEN [facility] Start: 2020 SIGMOIDOSCOPY SIGMOIDOSCOPY [facility] Start: 06-12-2018 Patient Education SINUSITIS In dication: Acute sinusitis, recurrence not specified, unspecified location Start: 12-Jun-2018 Instruction Type: Patient Education [employer]; [employer]. Start: 10-10-2017 Culture bacterial quanttative colony count urine URINE JEANETTE CULTURE-EVENS COL COUNT ([id number]) Start: 10-Oct-2017 11:41 Request [employer].; [employer]. Start: 09-13-2017 Culture bacterial quanttative colony count urine URINE JEANETTE CULTURE-EVENS COL COUNT ([id number]) Start: 13-Sep-2017 15:43 Request [employer].; [employer]. Start: 08-22-2017 Culture bacterial quanttative colony count urine URINE JEANETTE CULTURE-EVENS COL COUNT ([id number]) Start: 22-Aug-2017 16:14 Request [employer].; [employer] Start: 08-22-2017 Culture bct isol&prsmptv id isolate ea urine URINE JEANETTE CULTURE-ID ([id number]) Start: 22-Aug-2017 16:14 Request [employer].; [employer] Start: 05-05-2017 Culture bacterial quanttative colony count urine URINE JEANETTE CULTURE-EVENS COL COUNT ([id number]) Start: 05-May-2017 10:38 Request [employer].; [employer]. Start: 05-05-2017 Culture bct isol&prsmptv id isolate ea urine URINE JEANETTE CULTURE-ID ([id number]) Start: 05-May-2017 10:38 Request [employer].; [employer] Start: 05-02-2017 Urinls dip stick/tab let reagnt non-auto micrscpy URINALYSIS W MICROSCOPY ([id number]) Start: 02-May-2017 16:56 Request [employer].; [employer] [facility] [employer] Start: 06-08-2016 Culture bacterial quanttative colony count urine URINE JEANETTE CULTURE-EVENS COL COUNT ([id number]) Start: 08-Jun-2016 11:28 Request [employer] [facility] [employer] Start: 06-08-2016 Culture bct isol&prsmptv id isolate ea urine URINE JEANETTE CULTURE-ID ([id number]) Start: 08-Jun-2016 11:28 Request [employer].; [employer] [facility] [employer] Start: 06-08-2016 Urinls dip stick/tab let reagnt non-auto micrscpy URINALYSIS W MICROSCOPY ([id number]) Start: 08-Jun-2016 11:28 Request [employer].; [employer] [facility] [employer] Start: 04-09-2016 Patient Education CELLULITIS I ndication: Cellulitis of foot, right Start: 09-Apr-2016 Instruction Type: Patient Education [employer].; WALNUT MANZANITA [facility] [employer]. Start: 2016 Patient Education [employer].; [employer] [facility] [employer] Start: 2016 Culture bacterial quanttative colony count urine URINE JEANETTE CULTURE-EVENS COL COUNT ([id number]) Start: 29-Mar-2016 11:22 Request [employer].; [employer] [facility] [employer] Start: 02-17-2016 Culture bacterial quanttative colony count urine URINE JEANETTE CULTURE-EVENS COL COUNT ([id number]) Start: 17-Feb-2016 16:50 Request [employer].; [employer] Start: 02-17-2016 Culture bct isol&prsmptv id isolate ea urine URINE JEANETTE CULTURE-ID ([id number]) Start: 17-Feb-2016 16:49 Request [employer] Start: 09-12-2015 Culture bacterial quanttative colony count urine URINE JEANETTE CULTURE-EVENS COL COUNT ([id number]) Start: 12-Sep-2015 16:39 Request [employer].; [employer] Start: 08-02-2015 Patient Education SINUSITIS In dication: Sinusitis (Renamed from Sinus infection) Start: 02-Aug-2015 Instruction Type: Patient Education [employer].; [employer] Start: 06-03-2015 Culture bacterial quanttative colony count urine URINE JEANETTE CULTURE-EVENS COL COUNT ([id number]) Start: 03-Jun-2015 15:22 Request [employer].; [employer] Start: 06-03-2015 Culture bct isol&prsmptv id isolate ea urine URINE JEANETTE CULTURE-ID ([id number]) Start: 03-Jun-2015 15:22 Request [employer].; [employer] Start: 2015 Mammography MAMMOGRAM [facility] Start: 02-24-2015 Culture bacterial quanttative colony count urine URINE JEANETTE CULTURE-EVENS COL COUNT ([id number]) Start: 24-Feb-2015 16:30 Request [employer].; [employer] Start: 11-04-2014 Patient Education SINUSITIS In dication: Sinusitis (Renamed from Sinus infection) Start: 04-Nov-2014 Instruction Type: Patient Education [employer].; [employer] Start: 09-02-2014 Urinls dip stick/tab let reagnt non-auto micrscpy URINALYSIS W MICROSCOPY ([id number]) Start: 02-Sep-2014 15:05 Request [employer].; [employer] Start: 09-02-2014 Culture bacterial quanttative colony count urine URINE JEANETTE CULTURE-EVENS COL COUNT ([id number]) Start: 02-Sep-2014 15:04 Request [employer].; [employer] Start: 09-02-2014 Culture bct isol&prsmptv id isolate ea urine URINE JEANETTE CULTURE-ID ([id number]) Start: 02-Sep-2014 15:04 Request [employer].; [facility] [email or web address]. Start: 05-15-2014 Ceftriaxone sodium injection INJECTION, CEFTRIAXONE SODIUM, PER 250 MG ([id number]) X 4 Start: 15-May-2014 Intent [employer]lect; [facility] [email or web address]. Start: 04-23-2014 Culture bacterial quanttative colony count urine URINE JEANETTE CULTURE-EVENS COL COUNT ([id number]) Start: 23-Apr-2014 10:44 Request [employer].; [facility] [email or web address]. Start: 04-23-2014 Culture bct isol&prsmptv id isolate ea urine URINE JEANETTE CULTURE-ID ([id number]) Start: 23-Apr-2014 10:44 Request [employer].; [facility] [employer]. Start: 04-23-2014 Urinalysis qual/semiquant except immunoassays URINALYSIS ([id number]) Start: 23-Apr-2014 10:44 Request [employer].; [facility] [email or web address]. Start: 08-16-2013 Culture bct isol&prsmptv id isolate ea urine URINE JEANETTE CULTURE-ID ([id number]) Start: 16-Aug-2013 16:46 Request [employer].; [facility] [email or web address]. Start: 08-16-2013 Patient Education DEPRESSION I ndication: Mild episode of recurrent major depressive disorder Start: 16-Aug-2013 Instruction Type: Patient Education [employer].; [employer] [facility] [email or web address]. Start: 04-07-2013 Patient Education [employer].; [employer] [facility] [email or web address]. Start: 04-07-2013 Culture bacterial quanttative colony count urine URINE JEANETTE CULTURE-EVENS COL COUNT ([id number]) Start: 07-Apr-2013 9:44 Request [employer].; [facility] [employer]. Start: 02-12-2013 Culture bacterial quanttative colony count urine URINE JEANETTE CULTURE-EVENS COL COUNT ([id number]) Start: 12-Feb-2013 11:00 Request [employer].; [employer] [place] [employer]. Start: 08-15-2012 Patient Education Sinusitis *: sinus infection Indication: Sinusitis acute Start: 15-Aug-2012 Instruction Type: Patient Education Stylect; [employer] [facility] [employer]. Start: 06-17-2012 Patient Education [facility] [employer].; [employer] [facility] [email or web address]. Start: 06-09-2011 Patient Education BRONCHITIS, ACUTE Indication: Acute upper respiratory infection of multiple sites Start: 09-Jun-2011 Instruction Type: Patient Education [employer].; [employer] [facility] [place]. Start: 04-27-2011 Urnls dip stick/tabl et rgnt non-auto w/o micrscp URINALYSIS W/O MICROSCOPY ([id number]) Start: 27-Apr-2011 13:45 Request [employer]lect; [employer] [facility] [email or web address]. Start: 04-27-2011 Culture bacterial quanttative colony count urine URINE JEANETTE CULTURE-EVENS COL COUNT ([id number]) Start: 27-Apr-2011 13:44 Request [employer]lect; [employer] [facility] [email or web address]. Start: 04-27-2011 Culture bct isol&prsmptv id isolate ea urine URINE JEANETTE CULTURE-ID ([id number]) Start: 27-Apr-2011 13:44 Request [employer]; [employer] [facility] [employer]. Start: 04-05-2011 Exc b9 lesion mrgn x cp sk tg t/a/l 0.5 cm/< EXC TRUNK-EXTREM BENIGH W/MARGINS < 0.5 CM ([id number]) Start: 05-Apr-2011 Intent [facility] [employer]; [employer] [facility] [email or web address]. Start: 03-24-2011 Patient Education WART Indicat ion: Viral warts (Renamed from Cutaneous wart) Start: 24-Mar-2011 Instruction Type: Patient Education [employer].; [employer] [facility] [employer]. Start: 02-17-2011 Patient Education PNEUMONIA In dication: Pneumonia (Renamed from PNA (pneumonia)) Start: 17-Feb-2011 Instruction Type: Patient Education Stylect; [facility] [employer]. Start: 03-19-2010 Admin pneumococcal vaccine ADMINISTRATION OF PNEUMOCOCCAL VACCINE ([id number]) Start: 19-Mar-2010 [facility], [facility]. Start: 2005 HPV TESTING HPV TESTING [facility] Start: 1996 PAP TESTING PAP TESTING [facility] Start: 1994 Urine microalbumin profile DTAP,TDAP,TD (1 - Tdap) [facility] Start: 1993 HEPATITIS C SCREENING HEPATITIS C SC REENING [facility] Start: 1993 HIV SCREENING HIV SCREENING [facility] Start: 1975 COVID-19 VACCINE (#1) COVID-19 VACCI NE (#1) [facility] Start: 1975 HEPATITIS B (1 of 3 - 3-dose series) HEPATITIS B (1 of 3 - 3-dose series) [facility] Bacteria identified in Unspecified specimen by Anaerobe culture [facility] Patient referral [facility] Work Phone: Thyroid stimulating hormone measurement [facility] Wound microscopy, culture and sensitivities [facility] cefTRIAXone 1 gr am solution for injection Ordered: 15-May-2014 MD MARILEE LUGO [facility], [employer] [facility], [facility]. Immunizations Immunization Date Immunization Notes Care Provider Masoud perla 03-09-2018 Influenza virus vaccine W [facility] 09-13-2017 influenza virus vaccine, unspecified formulation Roxana Muir RN [facility] Comment on above: Had immunization. 06-06-2017 pneumococcal conjuga te vaccine, 13 valent Roxana Muir RN [facility] [employer] [facility] 03-25-2017 influenza, seasonal, injectable Roxana Muir RN [facility] Comment on above: @ 10-18-2013 measles, mumps and rubella virus vaccine Roxana Muir RN [facility] 08-19-2011 tetanus toxoid, redu carol diphtheria toxoid, and acellular pertussis vaccine, adsorbed Roxana Muir RN [facility], [facility]. 03-24-2011 influenza, seasonal, injectable Roxana Muir RN [facility], [facility].; [facility] Comment on above: given at [facility] 03-14-2011 pneumococcal polysaccharide vaccine, 23 marlene Quinn MD Work Phone: [facility] 03-19-2010 pneumococcal polysaccharide vaccine, 23 valent Roxana Muir RN [facility] [employer] [facility] Comment on above: Site: Anterior Thigh (Right) 09-23-2003 tetanus and diphther ia toxoids, adsorbed, preservative free, for adult use (2 Lf of tetanus toxoid and 2 Lf of diphtheria toxoid) Roxana Muir RN [facility], [facility]. 12-21-1994 measles, mumps and rubella virus vaccine Roxana Muir RN [facility], [facility] 12-21-1994 tetanus and diphther ia toxoids, adsorbed, preservative free, for adult use (2 Lf of tetanus toxoid and 2 Lf of diphtheria toxoid) Roxana Muir RN [facility], [facility] 12-19-1980 diphtheria, tetanus toxoids and acellular pertussis vaccine Roxana Muir RN [facility], [facility]. 12-19-1980 trivalent poliovirus vaccine, live, oral Roxana Muir RN [facility], [facility]. 02-19-1978 diphtheria, tetanus toxoids and pertussis vaccine Roxana Muir RN [facility] 02-19-1978 measles, mumps and rubella virus vaccine Roxana Muir RN [facility] 02-19-1978 trivalent poliovirus vaccine, live, oral Roxana Muir RN [facility], [facility]. 1975 diphtheria, tetanus toxoids and pertussis vaccine Roxana Muir RN [facility] 1975 trivalent poliovirus vaccine, live, oral Roxana Muir RN [facility], [facility].; [facility]. 1975 diphtheria, tetanus toxoids and pertussis vaccine Roxana Muir RN [facility], [facility].; [facility], [facility]. 1975 trivalent poliovirus vaccine, live, oral Roxana Muir RN [facility], [facility].; [facility], [facility] Payers Date Payer Category Payer Self-pay [id number] 2017 Medicare [id number] 2013 Medicaid [id number] 2013 Medicaid MEDICAID [facility] MEDICAID [id number] 2013-Present [phone] [address] [place] [address] Medicaid [id number] 1975 Unknown [id number] .0.1.433582.3.579.2.627 1975 Unknown [id number] 2..1.253603.3.579.2.627 1975 Unknown [id number] 2.0.1.516803.3.579.2.651 1975 Unknown [id number] 2.0.1.346605.3.579.2.651 1975 Unknown [id number] 2.840.1.973786.3.579.2.651 Medicare [id number] Unknown Unknown [id number] .840.1.632350.3.579.2.462 Unknown [id number] 2.16.840.1.363425.3.579.2.462 Unknown [id number] 2.16.840.1.510643.3.579.2.462 Unknown [id number] 2.16.840.1.643786.3.579.2.462 Unknown [id number] 2.840.1.117226.3.579.2.462 Unknown [id number] 2.840.1.825100.3.579.2.462 Unknown [id number] 2.840.1.805784.3.579.2.462 Unknown [id number] 2.840.1.365005.3.579.2.462 Unknown [id number] 2.840.1.605922.3.579.2.462 Unknown [id number] 2.840.1.616402.3.579.2.462 Unknown [id number] .840.1.911724.3.579.2.462 Unknown [id number] .840.1.514965.3.579.2.462 Unknown [id number] 2.840.1.251967.3.579.2.462 Unknown [id number] 2.840.1.959836.3.579.2.462 Unknown [id number] 2.840.1.502084.3.579.2.462 Unknown [id number] 2.840.1.769481.3.579.2.462 Unknown [id number] 2.840.1.583345.3.579.2.462 Unknown [id number] 2.840.1.740164.3.579.2.462 Unknown [id number] 2.840.1.068723.3.579.2.462 Unknown [id number] 2.16.840.1.662065.3.579.2.462 Unknown [id number] 2.16.840.1.576232.3.579.2.462 Unknown [id number] 2.16.840.1.179183.3.579.2.462 Unknown [id number] 2.16.840.1.023978.3.579.2.462 Unknown [id number] 2.16840.1.616031.3.579.2.462 Unknown [id number] 2.16.840.1.711589.3.579.2.462 Unknown [id number] 2.16840.1.460839.3.579.2.462 Unknown [id number] 2.840.1.598375.3.579.2.462 Social History Date Type Detail Facility Start: 09-19-2020 End: 10-28-2021 Tobacco smoking status [facility] Unknown if ever smoked [facility] Start: 08-29-2019 None [facility] Start: 09-11-2020 With Family [facility] Start: 10-05-2019 Non-smoker [facility] Start: 1975 Sex Assigned At Female W [facility] Start: 03-14-2013 End: 01-30-2025 Tobacco smoking status [facility] Never smoked tobacco [facility] Start: 03-14-2013 Tobacco use and exposure Smokeless tobacco non-user [facility] Start: 08-04-2022 Alcohol intake 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 [facility], [facility]. Tobacco use: Tobacco use: ; N ever smoker. [facility].; [facility] Not [facility] Medical Equipment Procedure Code Equipment Code Equipment [...] Assessment Result Facility 01-22-2025 Cognitive function Voice/Name [facility] Work Phone: 11-04-2021 Cognitive function Awake;Alert;Appropriat e [facility] Work Phone: Clinical Notes 07-08-2022 to 03-07-2025 Note Date & Type Note Facility 03-07-2025 Progress note Note Date/Time March 07, 2025 12:17pm [facility] [address] [place] [address] Progress Note - Wound Care 03/07/25 1214 MR#: [id number] Acct: [id number] Name: JULIETTE CREWS RAI Rep #:[id number] : 1975 49 From: Savannah neri MD PCP: Kassie Polanco LAW ENFORCEMENT DIRECTOR-C Status:REG R CR Location: History of Present [...] Charges/Coding Visit Charges Office Visits / Consults: 14846 OV L3 Est 20min Physical Exam Const [...] Date Recorded By Document 03/07/25 11:23 RB [id number] 03/07/25 11:24 RB 03/07/25 11:23 - Today's Visit Information Type of service Follow-up Visit (Physician/REGULATORY AFFAIRS INTERN ) Arrival Mode Ambulatory Transfer Assistance None [...] Date Recorded By Document 03/07/25 11:23 RB [id number] 03/07/25 11:24 RB 03/07/25 11:23 Wound Center [...] Recorded Date Recorded By Document 03/07/25 11:42 [id number] 03/07/25 11:43 03/07/25 11:42 Wound Center Nurse [...] Recorded Date Recorded By Document 03/07/25 11:43 [id number] 03/07/25 11:45 03/07/25 11:43 Wound Care Center [...] wound center. This note was generated with [employer] software. It may contain incorrectwords, spelling, and punctuation that were not noted in checking the note beforesigning. 03/07/25 1217 <Electronically signed by Savannah Kinney MD> Cosigner Signature (if applicable): CC: ~ Signed [facility] Work Phone: 1(385) 311-930210-02-2025 Progress note [facility] [address] [place] [address] Progress Note - Wound Care 03/07/25 1214 MR#: [id number] Acct: [id number] Name: JULIETTE CREWS RAI Rep #:[id number] : 1975 49 From: Savannah neri MD PCP: Kassie Polanco, LAW ENFORCEMENT DIRECTOR-C Status:REG R CR Location: History of Present [...] Charges/Coding Visit Charges Office Visits / Consults: 89494 OV L3 Est 20min Physical Exam Const [...] Date Recorded By Document 03/07/25 11:23 RB [id number] 03/07/25 11:24 RB 03/07/25 11:23 - Today's Visit Information Type of service Follow-up Visit (Physician/REGULATORY AFFAIRS INTERN ) Arrival Mode Ambulatory Transfer Assistance None [...] Date Recorded By Document 03/07/25 11:23 RB [id number] 03/07/25 11:24 RB 03/07/25 11:23 Wound Center [...] Recorded Date Recorded By Document 03/07/25 11:42 [id number] 03/07/25 11:43 03/07/25 11:42 Wound Center Nurse [...] Recorded Date Recorded By Document 03/07/25 11:43 [id number] 03/07/25 11:45 03/07/25 11:43 Wound Care Center [...] wound center. This note was generated with [facility] dictation software. It may contain incorrectwords, spelling, and punctuation that were not noted in checking the note beforesigning. 03/07/25 1217 Cosigner Signature (if applicable): CC: ~ Signed [facility]09-18-2025 Progress note Author Savannah Kinney [facility] Note Date/Time February 21, 2025 11:55am [facility] [address] [place] [address] Progress Note - Wound Care 02/21/25 1135 MR#: [id number] Acct: [id number] Name: JULIETTE CREWS RAI Rep #:[id number] : 1975 49 From: Savannah neri MD PCP: Kassie Polanco LAW ENFORCEMENT DIRECTOR-C Status:REG R CR Location: History of Present [...] Charges/Coding Visit Charges Office Visits / Consults: 77690 OV L3 Est 20min Physical Exam Const [...] Recorded Date Recorded By Document 02/07/25 10:42 RI [id number] 02/07/25 10:50 RI Document 02/14/25 11:28 KW [id number] 02/14/25 11:33 KW Document 02/21/25 10:53 KW [id number] 02/21/25 10:59 KW 02/07/25 02/14/25 02/21/25 10:42 11:28 10:53 - Today's Visit Information Type of service Follow-up Visit Follow-up Visit Follow-up Visit (Physician/REGULATORY AFFAIRS INTERN (Physician/REGULATORY AFFAIRS INTERN (Physician/REGULATORY AFFAIRS INTERN ) ) ) Arrival Mode Wheelchair Wheelchair [...] Recorded Date Recorded By Document 02/07/25 10:42 RI [id number] 02/07/25 10:50 RI Document 02/14/25 11:28 KW [id number] 02/14/25 11:33 Document 02/21/25 10:53 [id number] 02/21/25 10:59 02/07/25 02/14/25 02/21/25 10:42 11:28 [...] Amt Large (67-100%) Large (67-100%) -Granulation Quality Pale,[place] Red -Slough/Fibrin No -Necrosis Amt Small (1-33%) [...] Recorded Date Recorded By Document 02/07/25 11:14 [id number] 02/07/25 11:16 Document 02/14/25 11:52 [id number] 02/14/25 11:54 Document 02/21/25 11:05 [id number] 02/21/25 11:10 02/07/25 02/14/2525 11:14 11:52 11:05 [...] Date Recorded By Document 02/07/25 11:33 DL [id number] 02/07/25 11:34 DL Document 02/21/25 11:22 RB [id number] 02/21/25 11:22 RB 02/07/25 02/21/25 11:33 11:22 [...] Summary of Care Provided Yes Facility Type Palaeontologist Care Facility Orders Sent Yes Assessment/Plan Assessment/Plan [...] if needed. This note was generated with [employer] software. It may contain incorrectwords, spelling, and punctuation that were not noted in checking the note beforesigning. 02/21/25 1159 <Electronically signed by Savannah Kinney MD> Cosigner Signature (if applicable): CC: ~ Signed [facility] Work Phone: 1(652) 737-328309-18-2025 Progress note [facility] [address] [place] [address] Progress Note - Wound Care 02/21/25 1135 MR#: [id number] Acct: [id number] Name: JULIETTE CREWS RAI Rep #:[id number] : 1975 49 From: Savannah neri MD [...] Charges/Coding Visit Charges Office Visits / Consults: 19742 OV L3 Est 20min Physical Exam Const [...] Recorded Date Recorded By Document 02/07/25 10:42 RI [id number] 02/07/25 10:50 RI Document 02/14/25 11:28 KW [id number] 02/14/25 11:33 Document 02/21/25 10:53 [id number] 02/21/25 10:59 KW 02/07/25 02/14/25 02/21/25 10:42 11:28 10:53 - Today's Visit Information Type of service Follow-up Visit Follow-up Visit Follow-up Visit (Physician/REGULATORY AFFAIRS INTERN (Physician/REGULATORY AFFAIRS INTERN (Physician/REGULATORY AFFAIRS INTERN ) ) ) Arrival Mode Wheelchair Wheelchair [...] Recorded Date Recorded By Document 02/07/25 10:42 RI [id number] 02/07/25 10:50 RI Document 02/14/25 11:28 KW [id number] 02/14/25 11:33 KW Document 02/21/25 10:53 [id number] 02/21/25 10:59 02/07/25 02/14/25 02/21/25 10:42 11:28 [...] Amt Large (67-100%) Large (67-100%) -Granulation Quality Pale,[place] Red -Slough/Fibrin No -Necrosis Amt Small (1-33%) -Necrotic Tissue Type Adherent Slough -Texture (Aptience-wound Skin Appearance) Assessed Assessed Assessed -Moisture (Patience-wound [...] Recorded Date Recorded By Document 02/07/25 11:14 [id number] 02/07/25 11:16 Document 02/14/25 11:52 [id number] 02/14/25 11:54 Document 02/21/25 11:05 [id number] 02/21/25 11:10 02/07/25 02/14/25 02/21/25 11:14 11:52 [...] Date Recorded By Document 02/07/25 11:33 DL [id number] 02/07/25 11:34 DL Document 02/21/25 11:22 RB [id number] 02/21/25 11:22 RB 02/07/25 02/21/25 11:33 11:22 [...] Summary of Care Provided Yes Facility Type Palaeontologist Care Facility Orders Sent Yes Assessment/Plan Assessment/Plan [...] if needed. This note was generated with [facility] dictation software. It may contain incorrectwords, spelling, and punctuation that were not noted in checking the note beforesigning. 02/21/25 1155 Cosigner Signature (if applicable): CC: ~ Signed [facility]09-11-2025 Progress note Author Savannah Kinney [facility] Note Date/Time February 14, 2025 4:34pm [facility] [address] [place] [address] Progress Note - Wound Care 02/14/25 1309 MR#: [id number] Acct: [id number] Name: JULIETTE CREWS RAI Rep #:[id number] : 1975 49 From: Savannah neri MD PCP: Kassie Polanco, LAW ENFORCEMENT DIRECTOR-C Status:REG R CR Location: History of Present [...] Method Room Air Charges/Coding Procedures Integumentary 111xxx-113xx: 90085 Sherlyn subq tissue 20 sq cm/< Physical [...] Recorded Date Recorded By Document 02/07/25 10:42 RI [id number] 02/07/25 10:50 RI Document 02/14/25 11:28 [id number] 02/14/25 11:33 02/07/25 02/14/25 10:42 11:28 - Today's Visit Information Type of service Follow-up Visit Follow-up Visit (Physician/REGULATORY AFFAIRS INTERN (Physician/REGULATORY AFFAIRS INTERN ) ) Arrival Mode Wheelchair Wheelchair Accompanied [...] Date Recorded By Document 02/07/25 10:42 MT [id number] 02/07/25 10:50 MT Document 02/14/25 11:28 KW [id number] 02/14/25 11:33 KW 02/07/25 02/14/25 10:42 11:28 [...] Amt Large (67-100%) Large (67-100%) -Granulation Quality Pale,[place] Red -Slough/Fibrin No -Necrosis Amt Small (1-33%) [...] Recorded Date Recorded By Document 02/07/25 11:14 [id number] 02/07/25 11:16 Document 02/14/25 11:52 [id number] 02/14/25 11:54 02/07/25 02/14/25 11:14 11:52 Wound [...] Recorded Date Recorded By Document 02/07/25 11:33 [id number] 02/07/25 11:34 02/07/25 11:33 Wound Care Center [...] Status Wheelchair Transportation Private Auto Facility Type Palaeontologist Care Facility Orders Sent Yes Assessment/Plan Assessment/Plan (1) Pressure ulcer of sacral region, stage 3: CODE(S): L89.153 - Pressure ulcer of sacral region, stage 3 (2) Spina bifida: CODE(S): Q05.9 - Spina bifida, unspecified PLAN: Plan Debridement done as documented above, procedure was well-tolerated. Good improvement noted since her last visit. As above, concerns with suprapubic catheter has been resolved several has been oven drier tender lately. Continue Fibracol andfoam dressing, change at least twice daily. Continue offloading and reposition often. Optimal protein intake. Their questions were answered and they were advised to let us know if they had any further questions or concerns. Follow-upin a week or sooner if needed. This note was generated with [employer] software. It may contain incorrectwords, spelling, and punctuation that were not noted in checking the note beforesigning. 02/14/25 1634 <Electronically signed by Savannah Kinney MD> Cosigner Signature (if applicable): CC: ~ Signed [facility] Work Phone: 1(375) 736-658309-11-2025 Progress note [facility] [address] [place] [address] Progress Note - Wound Care 02/14/25 1309 MR#: [id number] Acct: [id number] Name: JULIETTE CREWS RAI Rep #:[id number] : 1975 49 From: Savannah neri MD [...] Method Room Air Charges/Coding Procedures Integumentary 111xxx-113xx: 93281 Sherlyn subq tissue 20 sq cm/< Physical [...] Date Recorded By Document 02/07/25 10:42 MT [id number] 02/07/25 10:50 MT Document 02/14/25 11:28 KW [id number] 02/14/25 11:33 02/07/25 02/14/25 10:42 11:28 - Today's Visit Information Type of service Follow-up Visit Follow-up Visit (Physician/REGULATORY AFFAIRS INTERN (Physician/REGULATORY AFFAIRS INTERN ) ) Arrival Mode Wheelchair Wheelchair Accompanied [...] Recorded Date Recorded By Document 02/07/25 10:42 RI [id number] 02/07/25 10:50 RI Document 02/14/25 11:28 [id number] 02/14/25 11:33 02/07/25 02/14/25 10:42 11:28 Wound [...] Amt Large (67-100%) Large (67-100%) -Granulation Quality Pale,[place] Red -Slough/Fibrin No -Necrosis Amt Small (1-33%) [...] Recorded Date Recorded By Document 02/07/25 11:14 [id number] 02/07/25 11:16 Document 02/14/25 11:52 [id number] 02/14/25 11:54 02/07/25 02/14/25 11:14 11:52 Wound [...] Date Recorded By Document 02/07/25 11:33 DL [id number] 02/07/25 11:34 DL 02/07/25 11:33 Wound Care [...] Status Wheelchair Transportation Private Auto Facility Type Skilled Nursing Care Facility Orders Sent Yes Assessment/Plan Assessment/Plan (1) Pressure ulcer of sacral region, stage 3: CODE(S): L89.153 - Pressure ulcer of sacral region, stage 3 (2) Spina bifida: CODE(S): Q05.9 - Spina bifida, unspecified PLAN: Plan Debridement done as documented above, procedure was well-tolerated. Good improvement noted since her last visit. As above, concerns with suprapubic catheter has been resolved several has been oven drier tender lately. Continue Fibracol andfoam dressing, change at least twice daily. Continue offloading and repos ition often. Optimal protein intake. Their questions were answered and they were advised to let us know if they had any further questions or concerns. Follow- upin a week or sooner if needed. This note was generated with [facility] dictation software. It may contain incorrectwords, spelling, and punctuation that were not noted in checking the note beforesigning. 02/14/25 1634 Cosigner Signature (if applicable): CC: ~ Signed [facility]09-04-2025 Progress note Author Savannah Kinney [facility] Note Date/Time February 07, 2025 12:25pm [facility] [address] [place] [address] Progress Note - Wound Care 02/07/25 1221 MR#: [id number] Acct: [id number] Name: JULIETTE CREWS RAI Rep #:[id number] : 1975 49 From: Savannah neri MD PCP: Kassie Polanco LAW ENFORCEMENT DIRECTOR-C Status:REG R CR Location: History of Present [...] Method Room Air Charges/Coding Procedures Integumentary 111xxx-113xx: 58788 Sherlyn subq tissue 20 sq cm/< Physical [...] Recorded Date Recorded By Document 02/07/25 10:42 RI [id number] 02/07/25 10:50 RI 02/07/25 10:42 - Today's Visit Information Type of service Follow-up Visit (Physician/REGULATORY AFFAIRS INTERN ) Arrival Mode Wheelchair Accompanied by AIDS [...] Recorded Date Recorded By Document 02/07/25 10:42 RI [id number] 02/07/25 10:50 RI 02/07/25 10:42 Wound Center Nurse 1 #9 [...] Under -Granulation Amt Large (67-100%) -Granulation Quality Pale,[place] -Slough/Fibrin No -Texture (Patience-wound Skin Appearance) Assessed [...] Date Recorded By Document 02/07/25 11:14 GM [id number] 02/07/25 11:16 02/07/25 11:14 Wound Center Nurse [...] Date Recorded By Document 02/07/25 11:33 DL [id number] 02/07/25 11:34 DL 09/04/25 11:33 Wound Care [...] Status Wheelchair Transportation Private Auto Facility Type Palaeontologist Care Facility Orders Sent Yes Assessment/Plan Assessment/Plan [...] if needed. This note was generated with [facility] dictation software. It may contain incorrectwords, spelling, and punctuation that were not noted in checking the note beforesigning. 02/07/25 1225 <Electronically signed by Savannah Kinney MD> Cosigner Signature (if applicable): CC: ~ Signed [facility] Work Phone: 1(360) 304-498009-04-2025 Progress note [facility] [address] [place] [address] Progress Note - Wound Care 02/07/25 1221 MR#: [id number] Acct: [id number] Name: JULIETTE CREWS RAI Rep #:[id number] : 1975 49 From: Savannah neri MD [...] Method Room Air Charges/Coding Procedures Integumentary 111xxx-113xx: 72826 Sherlyn subq tissue 20 sq cm/< Physical [...] Recorded Date Recorded By Document 02/07/25 10:42 RI [id number] 02/07/25 10:50 RI 02/07/25 10:42 - Today's Visit Information Type of service Follow-up Visit (Physician/REGULATORY AFFAIRS INTERN ) Arrival Mode Wheelchair Accompanied by AIDS [...] Recorded Date Recorded By Document 02/07/25 10:42 RI [id number] 02/07/25 10:50 RI 02/07/25 10:42 Wound Center Nurse 1 #9 [...] Under -Granulation Amt Large (67-100%) -Granulation Quality Pale,[place] -Slough/Fibrin No -Texture (Patience-wound Skin Appearance) Assessed [...] Recorded Date Recorded By Document 02/07/25 11:14 [id number] 02/07/25 11:16 02/07/25 11:14 Wound Center Nurse [...] Date Recorded By Document 02/07/25 11:33 DL [id number] 02/07/25 11:34 DL 02/07/25 11:33 Wound Care [...] Status Wheelchair Transportation Private Auto Facility Type Palaeontologist Care Facility Orders Sent Yes Assessment/Plan Assessment/Plan [...] if needed. This note was generated with [employer] software. It may contain incorrectwords, spelling, and punctuation that were not noted in checking the note beforesigning. 02/07/25 1225 Cosigner Signature (if applicable): CC: ~ Signed [facility]08-28-2025 Progress note Author jana Kinney [facility] Note Date/Time January 31, 2025 11 :59am [facility] [address] [place] [address] Progress Note - Wound Care 01/31/25 1151 MR#: [id number] Acct: [id number] Name: JULIETTE CREWS RAI Rep #:[id number] : 1975 49 From: Savannah neri MD [...] Method Room Air Charges/Coding Procedures Integumentary 111xxx-113xx: 93948 Sherlyn subq tissue 20 sq cm/< Physical [...] Start: 01/10/25 10:34 Freq: Status: Active Protocol: TOBNI Activity Type Activity Date Activity User E-sign Co-sign Detail Recorded Client Recorded Date Recorded By Document 01/10/25 10:34 CP [id number] 01/10/25 10:39 CP Document 01/17/25 10:03 DS [id number] 01/17/25 10:05 DS Document 01/24/25 10:37 DS [id number] 01/24/25 10:48 DS Document 01/31/25 10:03 DS [id number] 01/31/25 10:13 DS 01/10/25 01/17/25 01/24/25 10:34 10:03 10:37 WC - Today's Visit Information Type of service Follow-up Visit Follow-up Visit Follow-up Visit (Physician/REGULATORY AFFAIRS INTERN (Physician/REGULATORY AFFAIRS INTERN (Physician/REGULATORY AFFAIRS INTERN ) ) ) Arrival Mode Wheelchair Wheelchair [...] Pain Free? Yes Yes Yes 01/31/25 10:03 [facility] Today's Visit Information Type of service Follow-up Visit (Physician/REGULATORY AFFAIRS INTERN ) Arrival Mode Wheelchair Transfer Assistance Manual [...] Date Recorded By Document 01/10/25 10:34 CP [id number] 01/10/25 10:39 CP Document 01/17/25 10:05 DS [id number] 01/17/25 10:13 DS Document 01/24/25 10:37 DS [id number] 01/24/25 10:48 DS Document 01/31/25 10:03 DS [id number] 01/31/25 10:13 DS 01/10/25 01/17/25 01/24/25 10:34 [...] Amt Large (67-100%) Small (1-33%) -Granulation Quality [place] -Slough/Fibrin No -Necrosis Amt Medium (34-66%) -Necrotic [...] Attached -Granulation Amt Large (67-100%) -Granulation Quality [place] -Slough/Fibrin -Necrosis Amt -Necrotic Tissue Type -Structure [...] Recorded Date Recorded By Document 01/10/25 10:47 [id number] 01/10/25 10:53 Document 01/17/25 10:23 [id number] 01/17/25 10:30 Document 01/24/25 11:05 [id number] 01/24/25 11:06 GM Edit Result 01/24/25 11:05 GM (1) [id number] 01/24/25 11:08 GM Document 01/31/25 10:42 GM [id number] 01/31/25 10:44 GM (1) #9 coccyx - [...] Date Recorded By Document 01/10/25 10:58 CP [id number] 01/10/25 11:00 CP Document 01/17/25 10:53 KW [id number] 01/17/25 10:53 KW Document 01/24/25 11:26 RB [id number] 01/24/25 11:27 RB Document 01/31/25 10:58 KW [id number] 01/31/25 10:59 KW 01/10/25 01/17/25 01/24/25 10:58 [...] if needed. This note was generated with [employer] software. It may contain incorrectwords, spelling, and punctuation that were not noted in checking the note beforesigning. 01/31/25 9634 <Electronically signed by Savannah Kinney MD> Cosigner Signature (if applicable): CC: ~ Signed [facility] Work Phone: 1(367) 633-514908-28-2025 Progress note [facility] [address] [place] [address] Progress Note - Wound Care 01/31/25 1151 MR#: [id number] Acct: [id number] Name: JULIETTE CREWS RAI Rep #:[id number] : 1975 49 From: Savannah neri MD PCP: Kassie Polanco LAW ENFORCEMENT DIRECTOR-C Status:REG R CR Location: History of Present [...] Method Room Air Charges/Coding Procedures Integumentary 111xxx-113xx: 72950 Sherlyn subq tissue 20 sq cm/< Physical [...] Date Recorded By Document 01/10/25 10:34 CP [id number] 01/10/25 10:39 CP Document 01/17/25 10:03 DS [id number] 01/17/25 10:05 DS Document 01/24/25 10:37 DS [id number] 01/24/25 10:48 DS Document 01/31/25 10:03 DS [id number] 01/31/25 10:13 DS 01/10/25 01/17/25 01/24/25 10:34 10:03 10:37 - Today's Visit Information Type of service Follow-up Visit Follow-up Visit Follow-up Visit (Physician/REGULATORY AFFAIRS INTERN (Physician/REGULATORY AFFAIRS INTERN (Physician/REGULATORY AFFAIRS INTERN ) ) ) Arrival Mode Wheelchair Wheelchair [...] Visit Information Type of service Follow-up Visit (Physician/REGULATORY AFFAIRS INTERN ) Arrival Mode Wheelchair Transfer Assistance Manual [...] Date Recorded By Document 01/10/25 10:34 CP [id number] 01/10/25 10:39 CP Document 01/17/25 10:05 DS [id number] 01/17/25 10:13 DS Document 01/24/25 10:37 DS [id number] 01/24/25 10:48 DS Document 01/31/25 10:03 DS [id number] 01/31/25 10:13 DS 01/10/25 01/17/25 01/24/25 10:34 [...] Amt Large (67-100%) Small (1-33%) -Granulation Quality [place] -Slough/Fibrin No -Necrosis Amt Medium (34-66%) -Necrotic [...] Attached -Granulation Amt Large (67-100%) -Granulation Quality [place] -Slough/Fibrin -Necrosis Amt -Necrotic Tissue Type -Structure [...] Date Recorded By Document 01/10/25 10:47 GM [id number] 01/10/25 10:53 GM Document 01/17/25 10:23 GM [id number] 01/17/25 10:30 GM Document 01/24/25 11:05 GM [id number] 01/24/25 11:06 GM Edit Result 01/24/25 11:05 GM (1) [id number] 01/24/25 11:08 GM Document 01/31/25 10:42 GM [id number] 01/31/25 10:44 GM (1) #9 coccyx - [...] Date Recorded By Document 01/10/25 10:58 CP [id number] 01/10/25 11:00 CP Document 01/17/25 10:53 KW [id number] 01/17/25 10:53 KW Document 01/24/25 11:26 RB [id number] 01/24/25 11:27 RB Document 01/31/25 10:58 KW [id number] 01/31/25 10:59 KW 01/10/25 01/17/25 01/24/25 10:58 [...] if needed. This note was generated with [employer] software. It may contain incorrectwords, spelling, and punctuation that were not noted in checking the note beforesigning. 01/31/25 1159 Cosigner Signature (if applicable): CC: ~ Signed [facility]08-27-2025 Progress [facility] [address] [place] [address] OFFICE VISIT Date of Service: 01/30/25 MR#: [id number] Acct: [id number] Name: JULIETTE CREWS RAI Rep #: [id number] : 1975 Provider: ADAN Brewer Age/Sex: 49/F [place] [facility] [place] Status: Signed Intake Vital Signs 08/21/24 13:52 01/22/25 10:01 01/30/25 09:14 Height 4 ft 7.9 in 5 ft 5 ft Weight: 135 lb BMI 26.4 BP 120/81 H Respiration 18 Pulse Oximetry (%) 95 Oxygen Delivery Method room air Intake Visit Reasons: Test Result Chief Complaint: constipaiton [employer] Required: No Accompanied by: Caregiver Is patient [...] 17 gram 17 gm PO DAILY PRN AL N Constipation 09/14/20 01/30/25 History oral powder [...] today with her mom, sister andcaregiver from [facility]. She has tried and failed multiple OTC [...] secondary to frequent soiling. She resides [facility] and theyare aware they will need to [...] office today with mom and staff from [facility] - presents in wheel chair - having [...] and overweight Orientation: alert Other: presents in [facility] Head: normocephalic Ears: hearing grossly normal bilaterally [...] Cosigner Signature: Date (if applicable) CC: ~ [facility]08-21-2025 Progress note Author Savannah Kinney [facility] Note Date/Time January 24, 2025 12 :28pm [facility] [address] [place] [address] Progress Note - Wound Care 01/24/25 1225 MR#: [id number] Acct: [id number] Name: JULIETTE CREWS RAI Rep #:[id number] : 1975 49 From: Savannah neri MD PCP: Kassie Polanco LAW ENFORCEMENT DIRECTOR-C Status:REG R CR Location: History of Present [...] Method Room Air Charges/Coding Procedures Integumentary 111xxx-113xx: 09816 Sherlyn subq tissue 20 sq cm/< Physical [...] Date Recorded By Document 01/10/25 10:34 CP [id number] 01/10/25 10:39 CP Document 01/17/25 10:03 DS [id number] 01/17/25 10:05 DS Document 01/24/25 10:37 DS [id number] 01/24/25 10:48 DS 01/10/25 01/17/25 01/24/25 10:34 10:03 10:37 - Today's Visit Information Type of service Follow-up Visit Follow-up Visit Follow-up Visit (Physician/REGULATORY AFFAIRS INTERN (Physician/REGULATORY AFFAIRS INTERN (Physician/REGULATORY AFFAIRS INTERN ) ) ) Arrival Mode Wheelchair Wheelchair [...] Is Patient Pain Free? Yes Yes Yes [facility] Nurse 1 - General Ulcer Measurement Start: 01/10/25 10:34 Freq: Status: Active Protocol: Activity Type Activity Date Activity User E-sign Co-sign Detail Recorded Client Recorded Date Recorded By Document 01/10/25 10:34 CP [id number] 01/10/25 10:39 CP Document 01/17/25 10:05 DS [id number] 01/17/25 10:13 DS Document 01/24/25 10:37 DS [id number] 01/24/25 10:48 DS 01/10/25 01/17/25 01/24/25 10:34 [...] Amt Large (67-100%) Small (1-33%) -Granulation Quality [place] -Slough/Fibrin No -Necrosis Amt Medium (34-66%) -Necrotic [...] Recorded Date Recorded By Document 01/10/25 10:47 [id number] 01/10/25 10:53 Document 01/17/25 10:23 [id number] 01/17/25 10:30 GM Document 01/24/25 11:05 [id number] 01/24/25 11:06 GM Edit Result 01/24/25 11:05 (1) [id number] 01/24/25 11:08 GM (1) #9 coccyx - [...] Date Recorded By Document 01/10/25 10:58 CP [id number] 01/10/25 11:00 CP Document 01/17/25 10:53 KW [id number] 01/17/25 10:53 KW Document 01/24/25 11:26 RB [id number] 01/24/25 11:27 RB 01/10/25 01/17/25 01/24/25 10:58 [...] if needed. This note was generated with [facility] dictation software. It may contain incorrectwords, spelling, and punctuation that were not noted in checking the note beforesigning. 01/24/25 1228 <Electronically signed by Savannah Kinney MD> Cosigner Signature (if applicable): CC: ~ Signed [facility] Work Phone: 1(800) 912-464908-21-2025 Progress note [facility] [address] [place] [address] Progress Note - Wound Care 01/24/25 1225 MR#: [id number] Acct: [id number] Name: JULIETTE CREWS RAI Rep #:[id number] : 1975 49 From: Savannah neri MD [...] Method Room Air Charges/Coding Procedures Integumentary 111xxx-113xx: 17030 Sherlyn subq tissue 20 sq cm/< Physical [...] Date Recorded By Document 01/10/25 10:34 CP [id number] 01/10/25 10:39 CP Document 01/17/25 10:03 DS [id number] 01/17/25 10:05 DS Document 01/24/25 10:37 DS [id number] 01/24/25 10:48 DS 01/10/25 01/17/25 01/24/25 10:34 10:03 10:37 [facility] Today's Visit Information Type of service Follow-up Visit Follow-up Visit Follow-up Visit (Physician/REGULATORY AFFAIRS INTERN (Physician/REGULATORY AFFAIRS INTERN (Physician/REGULATORY AFFAIRS INTERN ) ) ) Arrival Mode Wheelchair Wheelchair [...] Date Recorded By Document 01/10/25 10:34 CP [id number] 01/10/25 10:39 CP Document 01/17/25 10:05 DS [id number] 01/17/25 10:13 DS Document 01/24/25 10:37 DS [id number] 01/24/25 10:48 DS 01/10/25 01/17/25 01/24/25 10:34 [...] Amt Large (67-100%) Small (1-33%) -Granulation Quality [place] -Slough/Fibrin No -Necrosis Amt Medium (34-66%) -Necrotic [...] Recorded Date Recorded By Document 01/10/25 10:47 [id number] 01/10/25 10:53 GM Document 01/17/25 10:23 GM [id number] 01/17/25 10:30 GM Document 01/24/25 11:05 GM [id number] 01/24/25 11:06 GM Edit Result 01/24/25 11:05 GM (1) [id number] 01/24/25 11:08 GM (1) #9 coccyx - [...] Date Recorded By Document 01/10/25 10:58 CP [id number] 01/10/25 11:00 CP Document 01/17/25 10:53 KW [id number] 01/17/25 10:53 KW Document 01/24/25 11:26 RB [id number] 01/24/25 11:27 RB 01/10/25 01/17/25 01/24/25 10:58 [...] if needed. This note was generated with [facility] dictation software. It may contain incorrectwords, spelling, and punctuation that were not noted in checking the note beforesigning. 01/24/25 1228 Cosigner Signature (if applicable): CC: ~ Signed [facility]08-19-2025 History and physical note Author Mario Friend [facility] Note Date/Time January 22, 2025 11 :42am [facility] Medical Records Department [address] [place] [address] History & Physical Exam 01/22/25 1139 MR#: [id number] Acct: [id number] Name: JULIETTE CREWS RAI Rep #:[id number] : 1975 49 From: Mario Rai DO PCP: GARY JosephC Status:REG S DC Location: [place] [address] HPI - General General Date of Admission: [...] seems ideal, it does not appear practical [facility] Medical History Suprapubic catheter History of Clostridium [...] 17 gram 17 gm PO DAILY PRN AL N Constipation 09/14/20 01/22/25 History oral powder [...] today with her mom, sister andcaregiver from [facility]. She has tried and failed multiple OTC [...] secondary to frequent soiling. She resides in [facility] and they are aware they [...] Rai DO> Cosigner Signature (if applicable): CC: LAW ENFORCEMENT DIRECTOR-C Kassie Polanco; Mario Rai DO~ Signed [facility] Work Phone: 1(792) 870-543808-19-[address] [facility] Medical Records Department [address] [place] [address] Anesthesia Postop Eval I 01/22/25 1251 MR#: [id number] Acct: [id number] Name: JULIETTE CREWS RAI Rep #:[id number] : 1975 49 From: Rex Martinez PCP: ADAN Joseph Status:REG S DC Y Race: C Location: [place] [address] Anesthesia: Postop Eval I Current Vital Signs [...] Martinez Cosdrake Signature: Date CC: ~ Signed [facility]08-19-[address] [facility] Medical Records Department [address] [place] [address] Colonoscopy Report MR#: [id number] Acct: [id number] Name: JULIETTE CREWS RAI Rep #:[id number] : 1975 49 From: Mario Rai DO [...] for surveillance. Procedure Code(s): --- Professional --- 03875, Colonoscopy, flexible; diagnostic, including collection of specimen(s) by brushing or washing, when performed (separate procedure) CPT copyright 2021 [employer]. All rights reserved. The codes documented in this report are preliminary and upon clinical coder review may be revised to meet current compliance requirements. Mario Rai DO 01/22/2025 12:48:14 PM This report has been signed electronically. Number of Addenda: 0 Note Initiated On: 01/22/2025 11:23 AM 01/22/25 1248 Date _ Mario Rai DO Cosigner Signature: Date (if indicated) CC: LAW ENFORCEMENT DIRECTOREllie Polanco; Mario Rai DO ~ Date Dictated: 01/22/25 1123 Date Transcribed: Percussion Instrument Tuner: RF Signed [facility]08-19-[address] [facility] Medical Records Department [address] [place] [address] Provation Physician Letter MR#: [id number] Acct: [id number] Name: JULIETTE CREWS RAI Rep #:[id number] : 1975 49 From: Mario Rai DO [...] HOPKINS Cosigner Signature: Date (if indicated) CC: LAW ENFORCEMENT DIRECTOR-C Kassie Polanco; Mario DO Cecelia ~ Date Dictated: 01/22/25 1123 Date Transcribed: Percussion Instrument Tuner: RF Signed [facility]08-19-2025 Consult note Author Kaiser Rowland [facility] Note Date/Time January 22, 2025 10 :41am [facility] Medical Records Department [address] [place] [address] Pre-Anesthesia Evaluation 01/22/25 1040 MR#: [id number] Acct: [id number] Name: JULIETTE CREWS RAI Rep #:[id number] : 1975 49 From: Kaiser Rowland MD PCP: ADAN Joseph Status:REG S DC Y Race: C Location: [place] [address] ASA Classification* ASA Classification ASA Classification: 3 [...] Procedure(s): COLONOSCOPY Anesthesia History Anesthesia History - dietetic technician: Anesthesia History - dietetic technician Hx Hospitalization No 01/22/25 10:33 Any Problems [...] take am of surgery PONV PONV - dietetic technician: PONV - dietetic technician Female Yes 01/22/25 10:33 HX of Motion [...] 08/21/24 13:52 Respiratory Assessment Respiratory Assessment - dietetic technician: Respiratory Tract Infection Hx - dietetic technician Hx Respiratory Tract Infection No 01/22/25 10:33 STOP Sleep Apnea STOP Sleep Apnea - dietetic technician: STOP Sleep Apnea - dietetic technician Hx Hypertension Yes 01/22/25 10:33 Hx Sleep [...] Tobacco Use History Tobacco Use History - dietetic technician: Tobacco Use History - dietetic technician Tobacco Use Smoking Status Never smoker 01/22/25 10:33 Hx Tobacco Use No 01/22/25 10:33 Years Smoking Packs Smoked per Day Smoking Cessation Date was within the last 15 years Hx Smoking Cessation Date Hx Smoking Cessation Counseling Hematologic Medial History Hematologic Hx - dietetic technician: 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 Hx of Blood Transfusion No 01/22/25 10:33 [...] confused, unrespo /Reproduction History /Reproductive History - dietetic technician: /Reproductive Hx- dietetic technician Hx Now No 01/22/25 10:33 Gestational Age [...] 17 gram 17 gm PO DAILY PRN AL N Constipation 09/14/20 01/22/25 History oral powder [...] Kaiser Palma Signature: Date CC: ~ Signed [facility] Work Phone: 1(471) 852-257208-19-2025 History and physical note [facility] Medical Records Department [address] [place] [address] History & Physical Exam 01/22/25 1139 MR#: [id number] Acct: [id number] Name: JULIETTE CREWS RAI Rep #:[id number] : 1975 49 From: Mario Friend DO PCP: Kassie Polanco NP-C Status:REG S DC Location: [place] [address] HPI - General General Date of Admission: [...] seems ideal, it does not appear practical [facility] Medical History Suprapubic catheter History of Clostridium [...] 17 gram 17 gm PO DAILY PRN AL N Constipation 09/14/20 01/22/25 History oral powder [...] today with her mom, sister andcaregiver from [facility]. She has tried and failed multiple OTC [...] secondary to frequent soiling. She resides in [facility] and theyare aware they will need to [...] 01/22/25 1142 Cosigner Signature (if applicable): CC: LAW ENFORCEMENT DIRECTOR-Martell Polanco; Mario Rai, ~ Signed [facility]08-19-2025 [facility] Medical Records Department [address] [place] [address] History Physical Exam 01/22/25 1139 MR#: [id number] Acct: [id number] Name: JULIETTE CREWS RAI Rep #: [id number] : 1975 49 From: Mario Rai DO PCP: ADAN Joseph Status:[facility] Location: [place] [address] HPI - General General Date of Admission: 01/22/25 Date of Service: 01/22/25 Chief Complaint: Constipation HPI Narrative JULIETTE RCEWS, is a 49 F who presents Chief [...] seems ideal, it does not appear practical [facility] Medical History Suprapubic catheter History of Clostridium [...] fever(s), poor appetite, weigh (more content not included)...[facility]08-19-[address] [facility] Medical Records Department [address] [place] [address] Pre-Anesthesia Evaluation 01/22/25 1040 MR#: [id number] Acct: [id number] Name: JULIETTE CREWS RAI Rep #:[id number] : 1975 49 From: Kaiser Rowland MD PCP: Kassie Polanco NP-Martell Status:REG S DC Y Race: C Location: [place] [address] ASA Classification* ASA Classification ASA Classification: 3 [...] Procedure(s): COLONOSCOPY Anesthesia History Anesthesia History - dietetic technician: Anesthesia History - dietetic technician Hx Hospitalization No 01/22/25 10:33 Any Problems [...] take am of surgery PONV PONV - dietetic technician: PONV - dietetic technician Female Yes 01/22/25 10:33 HX of Motion [...] 08/21/24 13:52 Respiratory Assessment Respiratory Assessment - dietetic technician: Respiratory Tract Infection Hx - dietetic technician Hx Respiratory Tract Infection No 01/22/25 10:33 STOP Sleep Apnea STOP Sleep Apnea - dietetic technician: STOP Sleep Apnea - dietetic technician Hx Hypertension Yes 01/22/25 10:33 Hx Sleep [...] Tobacco Use History Tobacco Use History - dietetic technician: Tobacco Use History - dietetic technician Tobacco Use Smoking Status Never smoker 01/22/25 10:33 Hx Tobacco Use No 01/22/25 10:33 Years Smoking Packs Smoked per Day Smoking Cessation Date was within the last 15 years Hx Smoking Cessation Date Hx Smoking Cessation Counseling Hematologic Medial History Hematologic Hx - dietetic technician: 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 Hx of Blood Transfusion No 01/22/25 10:33 [...] confused, unrespo /Reproduction History /Reproductive History - dietetic technician: /Reproductive Hx- dietetic technician Hx Now No 01/22/25 10:33 Gestational Age [...] 17 gram 17 gm PO DAILY PRN AL N Constipation 09/14/20 01/22/25 History oral powder [...] MD Cosigner Signature: Date CC: ~ Signed [facility]08-14-2025 Progress note Author [facility] Kin[facility] Note Date/Time January 17, 2025 11 :29am [facility] [address] [place] [address] Progress Note - Wound Care 01/17/25 1037 MR#: [id number] Acct: [id number] Name: JULIETTE CREWS RAI Rep #:[id number] : 1975 49 From: Savannah neri MD [...] Fibracol at her last visit due to [facility] restrictions and state laws. Caregiver states that dressing changes have been done consistently and noconcerns reported at this time. Objective Data Objective Data Vital Signs: Vital Signs Temp Pulse Resp BP O2 Del Method 96.4 F L 100 18 139/83 H Room Air 01/17/25 10:03 01/17/25 10:03 01/17/25 10:03 01/17/25 10:03 01/17/25 10:03 Oxygen Delivery Method Room Air Charges/Coding Procedures Integumentary 111xxx-113xx: 31995 Sherlyn subq tissue 20 sq cm/< Physical [...] Date Recorded By Document 01/10/25 10:34 CP [id number] 01/10/25 10:39 CP Document 01/17/25 10:03 DS [id number] 01/17/25 10:05 MALIKA 01/10/25 01/17/25 10:34 10:03 WC - Today's Visit Information Type of service Follow-up Visit Follow-up Visit (Physician/REGULATORY AFFAIRS INTERN (Physician/REGULATORY AFFAIRS INTERN ) ) Arrival Mode Wheelchair Wheelchair Transfer [...] Date Recorded By Document 01/10/25 10:34 CP [id number] 01/10/25 10:39 CP Document 01/17/25 10:05 DS [id number] 01/17/25 10:13 DS 01/10/25 01/17/25 10:34 10:05 [...] Amt Large (67-100%) Small (1-33%) -Granulation Quality [place] -Slough/Fibrin No -Necrosis Amt Medium (34-66%) -Necrotic [...] Recorded Date Recorded By Document 01/10/25 10:47 [id number] 01/10/25 10:53 Document 01/17/25 10:23 [id number] 01/17/25 10:30 01/10/25 01/17/25 10:47 10:23 Wound [...] Recorded Date Recorded By Document 01/10/25 10:58 [id number] 01/10/25 11:00 CP 01/10/25 10:58 Wound Care [...] if needed. This note was generated with [employer] software. It may contain incorrectwords, spelling, and punctuation that were not noted in checking the note beforesigning. 01/17/25 6463 <Electronically signed by Savannah Kinney MD> Cosigner Signature (if applicable): CC: ~ Signed [facility] Work Phone: 1(655) 581-988808-14-2025 Progress note [facility] [address] [place] [address] Progress Note - Wound Care 01/17/25 1037 MR#: [id number] Acct: [id number] Name: JULIETTE CREWS RAI Rep #:[id number] : 1975 49 From: Savannah neri MD [...] Fibracol at her last visit due to [facility] restrictions and state laws. Caregiver states that dressing changes have been done consistently and noconcerns reported at this time. Objective Data Objective Data Vital Signs: Vital Signs Temp Pulse Resp BP O2 Del Method 96.4 F L 100 18 139/83 H Room Air 01/17/25 10:03 01/17/25 10:03 01/17/25 10:03 01/17/25 10:03 01/17/25 10:03 Oxygen Delivery Method Room Air Charges/Coding Procedures Integumentary 111xxx-113xx: 38193 Sherlyn subq tissue 20 sq cm/< Physical [...] Start: 01/10/25 10:34 Freq: Status: Active Protocol: [email or web address] Activity Type Activity Date Activity User E-sign Co-sign Detail Recorded Client Recorded Date Recorded By Document 01/10/25 10:34 CP [id number] 01/10/25 10:39 CP Document 01/17/25 10:03 DS [id number] 01/17/25 10:05 DS 01/10/25 01/17/25 10:34 10:03 - Today's Visit Information Type of service Follow-up Visit Follow-up Visit (Physician/REGULATORY AFFAIRS INTERN (Physician/REGULATORY AFFAIRS INTERN ) ) Arrival Mode Wheelchair Wheelchair Transfer [...] Date Recorded By Document 01/10/25 10:34 CP [id number] 01/10/25 10:39 CP Document 01/17/25 10:05 DS [id number] 01/17/25 10:13 DS 01/10/25 01/17/25 10:34 10:05 [...] Amt Large (67-100%) Small (1-33%) -Granulation Quality [place] -Slough/Fibrin No -Necrosis Amt Medium (34-66%) -Necrotic [...] Recorded Date Recorded By Document 01/10/25 10:47 [id number] 01/10/25 10:53 Document 01/17/25 10:23 [id number] 01/17/25 10:30 01/10/25 01/17/25 10:47 10:23 Wound [...] Recorded Date Recorded By Document 01/10/25 10:58 [id number] 01/10/25 11:00 01/10/25 10:58 Wound Care Center [...] if needed. This note was generated with [employer] software. It may contain incorrectwords, spelling, and punctuation that were not noted in checking the note beforesigning. 01/17/25 1129 Cosigner Signature (if applicable): CC: ~ Signed [facility]08-13-2025 Radiology Diagnostic study note [facility] Imaging Services [address] [place], [place] [address] Abdomen/Pelvis without Cont MR#: [id number] Acct: [id number] Name: JULIETTE CREWS RAI Rep #: [id number] : 1975 F 49 From: Rebecca Newman MD PCP: Kassie Polanco LAW ENFORCEMENT DIRECTOR-C Status: REG C LI Study:Abdomen/Pelvis without Cont Date of Exa m: 01/15/25 Exam# [id number] Ordering Dr: Cristobal Hernandez MD PROCEDURE: ABDOMEN/PELVIS [...] etiology. No free air. 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 Nonobstructed bowel.. Status post appendectomy. No acute large bowel findings. Extensive thoracic lumbar scoliosis status post spinal rhonda placement. Muscle wasting. Bilateral hipjoint deformity. Sacral hypoplasia. CT/Abdomen/Pelvis without Cont IMPRESSION: No acute abdominopelvic findings. Reading Location: [place] [address] CC: LAW ENFORCEMENT DIRECTOR-C Kassie Polanco; Dr. Enzo Hernandez MD ~ Percussion Instrument Tuner: Signed [facility]08-07-2025 Progress note Author Savannah Kinney [facility] Note Date/Time January 10, 2025 5:3 5pm [facility] [address] [place] [address] Progress Note - Wound Care 01/10/25 1127 MR#: [id number] Acct: [id number] Name: JULIETTE CREWS RAI Rep #:[id number] : 1975 49 From: Savannah neri MD [...] Wound: Concerns with dressing changes due to [facility] restrictions and state mandate. longterm staff is unable to do dressing changes [...] 10:34 01/10/25 10:34 Charges/Coding Procedures Integumentary 111xxx-113xx: 97668 Sherlyn subq tissue 20 sq cm/< Physical [...] Date Recorded By Document 01/10/25 10:34 HAROON [id number] 01/10/25 10:39 CP 01/10/25 10:34 - Today's Visit Information Type of service Follow-up Visit (Physician/REGULATORY AFFAIRS INTERN ) Arrival Mode Wheelchair Transfer Assistance Manual [...] Date Recorded By Document 01/10/25 10:34 CP [id number] 01/10/25 10:39 CP 01/10/25 10:34 Wound Center Nurse 1 #9 coccyx -Current Size (cm) - Length 0.7 -Current Size (cm) - Width 0.5 -Current Size (cm) - Depth 0.3 -Total Square Cm 0.35 -Photo Taken Yes -Exudate Amt Medium -Exudate Type Serosanguineous -Wound Margin Flat & Intact -Granulation Amt Large (67-100%) -Granulation Quality [place] -Slough/Fibrin No -Structure Exposed N/A -Texture (Patience-wound [...] Recorded Date Recorded By Document 01/10/25 10:47 [id number] 01/10/25 10:53 01/10/25 10:47 Wound Center Nurse [...] Recorded Date Recorded By Document 01/10/25 10:58 [id number] 01/10/25 11:00 01/10/25 10:58 Wound Care Center [...] however appreciated. Due to restrictions at the [facility] we will switch from Promogran to Fibracol. [...] if needed. This note was generated with [employer] software. It may contain incorrectwords, spelling, and punctuation that were not noted in checking the note beforesigning. 01/10/25 1731 <Electronically signed by Savannah Kinney MD> Cosigner Signature (if applicable): CC: ~ Signed [facility] Work Phone: 1(881) 602-843708-07-2025 Progress note [facility] [address] [place] [address] Progress Note - Wound Care 01/10/25 1127 MR#: [id number] Acct: [id number] Name: JULIETTE CREWS RAI Rep #:[id number] : 1975 49 From: Savannah neri MD [...] Wound: Concerns with dressing changes due to [facility] restrictions and state mandate. longterm staff is unable to do dressing changes [...] 10:34 01/10/25 10:34 Charges/Coding Procedures Integumentary 111xxx-113xx: 99681 Sherlyn subq tissue 20 sq cm/< Physical [...] Date Recorded By Document 01/10/25 10:34 HAROON [id number] 01/10/25 10:39 CP 01/10/25 10:34 JESSICA - Today's Visit Information Type of service Follow-up Visit (Physician/REGULATORY AFFAIRS INTERN ) Arrival Mode Wheelchair Transfer Assistance Manual [...] Date Recorded By Document 01/10/25 10:34 CP [id number] 01/10/25 10:39 CP 01/10/25 10:34 Wound Center Nurse 1 #9 coccyx -Current Size (cm) - Length 0.7 -Current Size (cm) - Width 0.5 -Current Size (cm) - Depth 0.3 -Total Square Cm 0.35 -Photo Taken Yes -Exudate Amt Medium -Exudate Type Serosanguineous -Wound Margin Flat & Intact -Granulation Amt Large (67-100%) -Granulation Quality [place] -Slough/Fibrin No -Structure Exposed N/A -Texture (Patience-wound [...] Recorded Date Recorded By Document 01/10/25 10:47 [id number] 01/10/25 10:53 01/10/25 10:47 Wound Center Nurse [...] Recorded Date Recorded By Document 01/10/25 10:58 [id number] 01/10/25 11:00 01/10/25 10:58 Wound Care Center [...] however appreciated. Due to restrictions at the [facility] we will switch from Promogran to Fibracol. [...] if needed. This note was generated with [facility] dictation software. It may contain incorrectwords, spelling, and punctuation that were not noted in checking the note beforesigning. 01/10/25 1735 Cosigner Signature (if applicable): CC: ~ Signed [facility]07-31-2025 History and physical note Author Savannah Kinney [facility] Note Date/Time January 03, 2025 5:12 pm [facility] [address] [place] [address] H&P Exam - Wound Care 01/03/25 0925 MR#: [id number] Acct: [id number] Name: JULIETTE CREWS RAI Rep #:[id number] : 1975 49 From: Savannah neri MD [...] or feeling of unwell. Appetite is good. [facility] Medical History Decubitus ulcer of right buttock, [...] 17 gram 17 gm PO DAILY PRN AL N Constipation 09/14/20 09/25/20 17:30 History oral [...] mineral oil (Fleet Mineral Oil 118 ml AL .QTUFR Unknown History enema) mupirocin calcium 2 [...] Date Recorded By Document 01/03/25 08:22 DS [id number] 01/03/25 08:26 DS 01/03/25 08:22 JESSICA Baptiste [...] Pain Free? Yes Communication Assessment Preferred language Macedonian Able to Read Yes Able to Write [...] Date Recorded By Document 01/03/25 08:26 MALIKA [id number] 01/03/25 08:36 DS 01/03/25 08:26 Wound Center [...] Recorded Date Recorded By Document 01/03/25 08:41 [id number] 01/03/25 08:46 01/03/25 08:41 Wound Center Nurse [...] Recorded Date Recorded By Document 01/03/25 08:52 RI [id number] 01/03/25 09:06 RI 01/03/25 08:52 Wound Care Center Nurse 3 [...] Charges/Coding Visit Charges Office Visits / Consults: 03047 OV L3 Est 20min Procedures Integumentary 111xxx-113xx: 68391 Sherlyn subq tissue 20 sq cm/< Assessment/Plan [...] if needed. This note was generated with [facility] dictation software. It may contain incorrectwords, spelling, and punctuation that were not noted in checking the note beforesigning. 01/03/25 1712 <Electronically signed by Savannah Kinney MD> Cosigner Signature (if applicable): CC: ~ Signed [facility] Work Phone: 1(194) 254-652107-31-2025 History and physical note [facility] [address] [place] [address] H&P Exam - Wound Care 01/03/25 0925 MR#: [id number] Acct: [id number] Name: JULIETTE CREWS RAI Rep #:[id number] : 1975 49 From: Savannah neri MD PCP: Kassie Polanco, LAW ENFORCEMENT DIRECTOR-C Status:REG R CR Location: History of Present [...] or feeling of unwell. Appetite is good. [facility] Medical History Decubitus ulcer of right buttock, [...] 17 gram 17 gm PO DAILY PRN AL N Constipation 09/14/20 09/25/20 17:30 History oral [...] mineral oil (Fleet Mineral Oil 118 ml AL .QTUFR Unknown History enema) mupirocin calcium 2 [...] Date Recorded By Document 01/03/25 08:22 MALIKA [id number] 01/03/25 08:26 DS 01/03/25 08:22 - Today's [...] Pain Free? Yes Communication Assessment Preferred language Macedonian Able to Read Yes Able to Write [...] Date Recorded By Document 01/03/25 08:26 DS [id number] 01/03/25 08:36 DS 01/03/25 08:26 Wound Center [...] Recorded Date Recorded By Document 01/03/25 08:41 [id number] 01/03/25 08:46 GM 01/03/25 08:41 Wound Center [...] Recorded Date Recorded By Document 01/03/25 08:52 RI [id number] 01/03/25 09:06 RI 01/03/25 08:52 Wound Care Center Nurse 3 [...] Charges/Coding Visit Charges Office Visits / Consults: 38613 OV L3 Est 20min Procedures Integumentary 111xxx-113xx: 27958 Sherlny subq tissue 20 sq cm/< Assessment/Plan Assessment/Plan [...] if needed. This note was generated with [employer] software. It may contain incorrectwords, spelling, and punctuation that were not noted in checking the note beforesigning. 01/03/25 171 Cosigner Signature (if applicable): CC: ~ Signed [facility]07-10-2025 Evaluation note* Diagnosis Onset Date Resolution Status [...] 28 11:23am Spina bifida chronic March 11:23am [facility] Work Phone: 1(154) 894-861107-03-2025 Progress note Author Savannah Kinney [facility] Note Date/Time December 06, 2024 1:44p m [facility] [address] [place] [address] Progress Note - Wound Care 12/06/24 1340 MR#: [id number] Acct: [id number] Name: JULIETTE CREWS RAI Rep #:[id number] : 1975 49 From: Savannah neri MD PCP: Kassie Polanco, LAW ENFORCEMENT DIRECTOR-C Status:REG R CR Location: History of Present [...] and paraplegia. She currently resides in a [facility]. Her family noted bleeding on her underwear [...] 11:29 12/06/24 11:29 Charges/Coding Procedures Integumentary 111xxx-113xx: 80376 Sherlyn subq tissue 20 sq cm/< Physical [...] Date Recorded By Document 12/06/24 11:29 ALFREDO [id number] 12/06/24 11:33 ALFREDO 12/06/24 11:29 WC - Today's Visit Information Type of service Follow-up Visit (Physician/REGULATORY AFFAIRS INTERN ) Arrival Mode Ambulatory Transfer Assistance Manual [...] Date Recorded By Document 12/06/24 11:29 ALFREDO [id number] 12/06/24 11:33 ALFREDO 12/06/24 11:29 Wound Center [...] Attached -Granulation Amt Medium (34-66%) -Granulation Quality [place] -Slough/Fibrin Yes -Necrosis Amt Medium (34-66%) -Necrotic [...] Attached -Granulation Amt Medium (34-66%) -Granulation Quality [place] -Slough/Fibrin Yes -Necrosis Amt Medium (34-66%) -Necrotic [...] Attached -Granulation Amt Medium (34-66%) -Granulation Quality [place] -Slough/Fibrin Yes -Necrosis Amt Medium (34-66%) -Necrotic [...] Recorded Date Recorded By Document 12/06/24 11:40 [id number] 12/06/24 11:44 GM 12/06/24 11:40 Wound Center [...] Recorded Date Recorded By Document 12/06/24 12:00 RI [id number] 12/06/24 12:02 RI 12/06/24 12:00 Wound Care Center Nurse 3 [...] if needed. This note was generated with [employer] software. It may contain incorrectwords, spelling, and punctuation that were not noted in checking the note beforesigning. 12/06/24 1344 <Electronically signed by Savannah Kinney MD> Cosigner Signature (if applicable): CC: ~ Signed [facility] Work Phone: 1(822) 374-238907-03-2025 Progress note [facility] [address] [place] [address] Progress Note - Wound Care 12/06/24 1340 MR#: [id number] Acct: [id number] Name: JULIETTE CREWS RAI Rep #:[id number] : 1975 49 From: Savannah neri MD [...] and paraplegia. She currently resides in a [facility]. Her family noted bleeding on her underwear [...] 11:29 12/06/24 11:29 Charges/Coding Procedures Integumentary 111xxx-113xx: 99282 Sherlyn subq tissue 20 sq cm/< Physical [...] Date Recorded By Document 12/06/24 11:29 ALFREDO [id number] 12/06/24 11:33 RB 12/06/24 11:29 - Today's Visit Information Type of service Follow-up Visit (Physician/REGULATORY AFFAIRS INTERN ) Arrival Mode Ambulatory Transfer Assistance Manual [...] Date Recorded By Document 12/06/24 11:29 RB [id number] 12/06/24 11:33 RB 12/06/24 11:29 Wound Center [...] Attached -Granulation Amt Medium (34-66%) -Granulation Quality [place] -Slough/Fibrin Yes -Necrosis Amt Medium (34-66%) -Necrotic [...] Attached -Granulation Amt Medium (34-66%) -Granulation Quality [place] -Slough/Fibrin Yes -Necrosis Amt Medium (34-66%) -Necrotic [...] Attached -Granulation Amt Medium (34-66%) -Granulation Quality [place] -Slough/Fibrin Yes -Necrosis Amt Medium (34-66%) -Necrotic [...] Recorded Date Recorded By Document 12/06/24 11:40 [id number] 12/06/24 11:44 12/06/24 11:40 Wound Center Nurse [...] Recorded Date Recorded By Document 12/06/24 12:00 RI [id number] 12/06/24 12:02 RI 12/06/24 12:00 Wound Care Center Nurse 3 [...] if needed. This note was generated with [facility] dictation software. It may contain incorrectwords, spelling, and punctuation that were not noted in checking the note beforesigning. 12/06/24 1344 Cosigner Signature (if applicable): CC: ~ Signed [facility]06-27-2025 History and physical note Author Brett Vincent [facility] Note Date/Time November 30, 2024 9:47 am [facility] [address] [place] [address] H&P Exam - Wound Care 11/29/24 1637 MR#: [id number] Acct: [id number] Name: JULIETTE CREWS RAI Rep #:[id number] : 1975 49 From: Brett Roman PCP: [...] and paraplegia. She currently resides in a [facility]. Her family noted bleeding on her underwear [...] for fecal contamination. She feels well otherwise. [facility] Medical History Decubitus ulcer of right buttock, [...] 17 gram 17 gm PO DAILY PRN AL N Constipation 09/14/20 09/25/20 17:30 History oral [...] mineral oil (Fleet Mineral Oil 118 ml AL .QTUFR Unknown History enema) mupirocin calcium 2 [...] Start: 11/22/24 10:38 Freq: Status: Active Protocol: [employer] Activity Type Activity Date Activity User E-sign Co-sign Detail Recorded Client Recorded Date Recorded By Document 11/22/24 10:48 DS [id number] 11/22/24 10:52 DS Document 11/29/24 10:50 DS [id number] 11/29/24 11:07 DS 11/22/24 11/29/24 10:48 10:50 - Today's Visit Information Type of service Initial Visit Follow-up Visit (Physician/REGULATORY AFFAIRS INTERN ) Arrival Mode Wheelchair Wheelchair Transfer Assistance [...] Free? Yes Yes Communication Assessment Preferred language Macedonian Captain Fire Prevention Bureau Required No Able to Read Yes Able [...] Declines List Device(s) with Patient family support Culture/Sikh/Supervisor Research Kennel Cultural/Sikh Needs that may affect No Treatment Plan Teaching: Wound Center *Welcome to the Wound Center -Person Taught Patient,Family, Significant Other -Teaching Method Discussion -Response to teaching Verbalize Understanding WC - Nurse 1 - General Ulcer Measurement Start: 11/22/24 10:38 Freq: Status: Active Protocol: Activity Type Activity Date Activity User E-sign Co-sign Detail Recorded Client Recorded Date Recorded By Document 11/22/24 11:09 DS [id number] 11/22/24 11:13 DS Document 11/29/24 10:50 DS [id number] 11/29/24 11:07 DS 11/22/24 11/29/24 11:09 10:50 [...] Attached -Granulation Amt Large (67-100%) -Granulation Quality [place] -Slough/Fibrin No -Texture (Patience-wound Skin Appearance) Assessed [...] Attached -Granulation Amt Large (67-100%) -Granulation Quality [place] -Slough/Fibrin No -Texture (Patience-wound Skin Appearance) Assessed [...] Serosanguineous -Granulation Amt Large (67-100%) -Granulation Quality [place] -Necrosis Amt Small (1-33%) -Necrotic Tissue Type [...] Attached -Granulation Amt Large (67-100%) -Granulation Quality [place] -Texture (Patience-wound Skin Appearance) Assessed -Moisture (Patience-wound [...] Date Recorded By Document 11/22/24 11:12 GM [id number] 11/22/24 11:33 GM Document 11/29/24 11:19 GM [id number] 11/29/24 11:24 GM Edit Result 11/29/24 11:19 GM (1) [id number] 11/29/24 11:28 GM (1) #8 Right ishium [...] Date Recorded By Document 11/22/24 11:47 DS [id number] 11/22/24 11:54 DS Edit Result 11/22/24 11:47 DS (1) [id number] 11/22/24 12:01 DS Document 11/29/24 11:28 GM [id number] 11/29/24 11:32 GM (1) #7 L Ishium [...] cocci Charges/Coding Procedures Integumentary Add On Codes: 00426 Sherlyn subq tissue add-on Multi Select Codes Visit Charges Office Visit/Consults: 81764 OV L4 New 45 min Integumentary Integumentary CPT Codes: 94839 Sherlyn subq tissue 20 sq cm/< Assessment/Plan [...] her mother and a caregiver from her [facility]. It is ascertained that offloading measures have [...] Dr. Kinney. Total time: 48 minutes 11/29/24 6416 <Electronically signed by Brett Vincent MD> Cosigner Signature (if applicable): CC: ~ Signed [facility] Work Phone: 1([phone]) 307-835406-27-2025 History and physical note [facility] [address] [place] [address] H&P Exam - Wound Care 11/29/24 1637 MR#: [id number] Acct: [id number] Name: JULIETTE CREWS RAI Rep #:[id number] : 1975 49 From: Brett Roman PCP: Kassie Polanco LAW ENFORCEMENT DIRECTOREmileC Status:REG R CR Location: ADDENDUM by Dr. [...] and paraplegia. She currently resides in a [facility]. Her family noted bleeding on her underwear [...] for fecal contamination. She feels well otherwise. [facility] Medical History Decubitus ulcer of right buttock, [...] 17 gram 17 gm PO DAILY PRN AL N Constipation 09/14/20 09/25/20 17:30 History oral [...] mineral oil (Fleet Mineral Oil 118 ml AL .QTUFR Unknown History enema) mupirocin calcium 2 [...] Recorded Date Recorded By Document 11/22/24 10:48 [id number] 11/22/24 10:52 DS Document 11/29/24 10:50 DS [id number] 11/29/24 11:07 DS 11/22/24 11/29/24 10:48 10:50 - Today's Visit Information Type of service Initial Visit Follow-up Visit (Physician/REGULATORY AFFAIRS INTERN ) Arrival Mode Wheelchair Wheelchair Transfer Assistance [...] Free? Yes Yes Communication Assessment Preferred language Macedonian Captain Fire Prevention Bureau Required No Able to Read Yes Able [...] Declines List Device(s) with Patient family support Culture/Sikh/Supervisor Research Kennel Cultural/Sikh Needs that may affect No Treatment Plan Teaching: Wound Center *Welcome to the Wound Center -Person Taught Patient,Family, Significant Other -Teaching Method Discussion -Response to teaching Verbalize Understanding WC - Nurse 1 - General Ulcer Measurement Start: 11/22/24 10:38 Freq: Status: Active Protocol: Activity Type Activity Date Activity User E-sign Co-sign Detail Recorded Client Recorded Date Recorded By Document 11/22/24 11:09 DS [id number] 11/22/24 11:13 DS Document 11/29/24 10:50 DS [id number] 11/29/24 11:07 DS 11/22/24 11/29/24 11:09 10:50 [...] Attached -Granulation Amt Large (67-100%) -Granulation Quality [place] -Slough/Fibrin No -Texture (Patience-wound Skin Appearance) Assessed [...] Attached -Granulation Amt Large (67-100%) -Granulation Quality [place] -Slough/Fibrin No -Texture (Patience-wound Skin Appearance) Assessed [...] Serosanguineous -Granulation Amt Large (67-100%) -Granulation Quality [place] -Necrosis Amt Small (1-33%) -Necrotic Tissue Type [...] Attached -Granulation Amt Large (67-100%) -Granulation Quality [place] -Texture (Patience-wound Skin Appearance) Assessed -Moisture (Patience-wound [...] Date Recorded By Document 11/22/24 11:12 GM [id number] 11/22/24 11:33 GM Document 11/29/24 11:19 GM [id number] 11/29/24 11:24 GM Edit Result 11/29/24 11:19 GM (1) [id number] 11/29/24 11:28 GM (1) #8 Right ishium [...] 11:19 Wound Center Nurse 2 #8 Right [facility] cluster -Time 11:32 11:21 -Correct Patient Yes [...] cm 2 or part thereof #7 L [facility] cluster -Time 11:18 11:21 -Correct Patient [...] Date Recorded By Document 11/22/24 11:47 DS [id number] 11/22/24 11:54 DS Edit Result 11/22/24 11:47 DS (1) [id number] 11/22/24 12:01 DS Document 11/29/24 11:28 GM [id number] 11/29/24 11:32 GM (1) #7 L Ishium [...] cocci Charges/Coding Procedures Integumentary Add On Codes: 05225 Sherlyn subq tissue add-on Multi Select Codes Visit Charges Office Visit/Consults: 93214 OV L4 New 45 min Integumentary Integumentary CPT Codes: 78130 Sherlyn subq tissue 20 sq cm/< Assessment/Plan [...] her mother and a caregiver from her [facility]. It is ascertained that offloading measures have [...] Cosigner Signature (if applicable): CC: ~ Signed [facility]06-26-2025 Evaluation note* Diagnosis Onset Date Resolution Status [...] 8:08am Spina bifida chronic January 03, 8:08am [facility] Work Phone: 1(690) [phone] Evaluation note* Diagnosis Onset Date Resolution Status [...] 10:15am Constipation acute January 22, 2025 8:42am [facility] Work Phone: [phone] Evaluation note* Diagnosis Onset Date Resolution Status [...] acute January 30 8:57am Chronic idiopathic constipation [facility] alicja January 30, 2025 8:57am [facility] Work Phone: 1([phone]) [phone] Evaluation note* Diagnosis Onset Date Resolution Status [...] acute January 30 8:57am Chronic idiopathic constipation [facility] wed[facility] alicja January 30, 2025 8:57am Pressure ulcer of sacral region, stage 3 chronic January 31 10:00am Spina bifida chronic January 31, 2025 10:00am [facility] Work Phone: [phone]) [phone] Evaluation note* Diagnosis Onset Date Resolution Status [...] 10:30am Spina bifida chronic February 212024 10:30am [facility] Work Phone: 1([phone]) [phone] History and physical note Author Savannah Kinney [facility] Note Date/Time November 23, 2024 5:01 pm [facility] [address] [address] H&P Exam - Wound Care 11/22/24 2763 MR#: [id number] Acct: [id number] Name: JULIETTE CREWS RAI Rep #:[id number] : 1975 49 From: Savannah neri MD PCP: Kassie Polanco LAW ENFORCEMENT DIRECTOREllie Status:REG R CR Location: History of Present [...] concern for fecal contamination. Feels well otherwise. [facility] Medical History (Updated 11/22/24 @ 20:49 by [...] 17 gram 17 gm PO DAILY PRN AL N Constipation 09/14/20 09/25/20 17:30 History oral [...] mineral oil (Fleet Mineral Oil 118 ml AL .QTUFR Unknown History enema) mupirocin calcium 2 [...] Post-Debridement Measurements and Additional Note: Post-Debridement Measurements/Treatment [facility] Nurse 1 - General Ulcer Assessment Start: 11/22/24 10:38 Freq: Status: Active Protocol: TOBIN Activity Type Activity Date Activity User E-sign Co-sign Detail Recorded Client Recorded Date Recorded By Document 11/22/24 10:48 MALIKA [id number] 11/22/24 10:52 MALIKA 11/22/24 10:48 - Today's [...] Pain Free? Yes Communication Assessment Preferred language Macedonian Captain Fire Prevention Bureau Required No Able to Read Yes Able [...] Declines List Device(s) with Patient family support Culture/Sikh/Supervisor Research Kennel Cultural/Sikh Needs that may affect No Treatment Plan Teaching: Wound Center *Welcome to the Wound Center -Person Taught Patient,Family, Significant Other -Teaching Method Discussion -Response to teaching Verbalize Understanding WC - Nurse 1 - General Ulcer Measurement Start: 11/22/24 10:38 Freq: Status: Active Protocol: Activity Type Activity Date Activity User E-sign Co-sign Detail Recorded Client Recorded Date Recorded By Document 11/22/24 11:09 DS [id number] 11/22/24 11:13 DS 11/22/24 11:09 Wound Center [...] Attached -Granulation Amt Large (67-100%) -Granulation Quality [place] -Slough/Fibrin No -Texture (Patience-wound Skin Appearance) Assessed [...] Attached -Granulation Amt Large (67-100%) -Granulation Quality [place] -Slough/Fibrin No -Texture (Patience-wound Skin Appearance) Assessed [...] Recorded Date Recorded By Document 11/22/24 11:12 [id number] 11/22/24 11:33 11/22/24 11:12 Wound Center Nurse 2 #8 Right [facility] cluster -Time 11:32 -Correct Patient Yes -Correct [...] cm 2 or part thereof #7 [facility] -[facility] 11:18 -Correct Patient Yes [...] Date Recorded By Document 11/22/24 11:47 DS [id number] 11/22/24 11:54 DS Edit Result 11/22/24 11:47 DS (1) [id number] 11/22/24 12:01 DS (1) #7 L Ishium [...] Charges/Coding Visit Charges Office Visits / Consults: 53068 OV L4 Est 30min Procedures Integumentary 111xxx-113xx: 33164 Sherlyn subq tissue 20 sq cm/< Add On Codes: 50831 Sherlyn subq tissue add-on (x2 Additional square [...] with me. This note was generated with [facility] dictation software. It may contain incorrectwords, spelling, and punctuation that were not noted in checking the note beforesigning. 11/23/24 1701 <Electronically signed by Savannah Kinney MD> Cosigner Signature (if applicable): CC: ~ Signed [facility] Work Phone: 1(407) 370-952306-20-2025 History and physical note [facility] [address] [place] [address] H&P Exam - Wound Care 11/22/24 1355 MR#: [id number] Acct: [id number] Name: JULIETTE CREWS RAI Rep #:[id number] : 1975 49 From: Savannah neri MD [...] concern for fecal contamination. Feels well otherwise. [facility] Medical History (Updated 11/22/24 @ 20:49 by [...] with folic acid [address] [facility] general health 04/24/13 09/25/20 17:30 History mcg [...] 17 gram 17 gm PO DAILY PRN AL N Constipation 09/14/20 09/25/20 17:30 History oral [...] mineral oil (Fleet Mineral Oil 118 ml AL .QTUFR Unknown History enema) mupirocin calcium 2 [...] Post-Debridement Measurements and Additional Note: Post-Debridement Measurements/Treatment [facility] Nurse 1 - General Ulcer Assessment Start: 11/22/24 10:38 Freq: Status: Active Protocol: TOBIN Activity Type Activity Date Activity User E-sign Co-sign Detail Recorded Client Recorded Date Recorded By Document 11/22/24 10:48 MALIKA [id number] 11/22/24 10:52 DS 11/22/24 10:48 - Today's [...] Pain Free? Yes Communication Assessment Preferred language Macedonian Captain Fire Prevention Bureau Required No Able to Read Yes Able [...] Declines List Device(s) with Patient family support Culture/Sikh/Supervisor Research Kennel Cultural/Sikh Needs that may affect No Treatment Plan Teaching: Wound Center *Welcome to the Wound Center -Person Taught Patient,Family, Significant Other -Teaching Method Discussion -Response to teaching Verbalize Understanding WC - Nurse 1 - General Ulcer Measurement Start: 11/22/24 10:38 Freq: Status: Active Protocol: Activity Type Activity Date Activity User E-sign Co-sign Detail Recorded Client Recorded Date Recorded By Document 11/22/24 11:09 DS [id number] 11/22/24 11:13 DS 11/22/24 11:09 Wound Center [...] Attached -Granulation Amt Large (67-100%) -Granulation Quality [place] -Slough/Fibrin No -Texture (Patience-wound Skin Appearance) Assessed [...] Attached -Granulation Amt Large (67-100%) -Granulation Quality [place] -Slough/Fibrin No -Texture (Patience-wound Skin Appearance) Assessed [...] Recorded Date Recorded By Document 11/22/24 11:12 [id number] 11/22/24 11:33 11/22/24 11:12 Wound Center Nurse [...] Date Recorded By Document 11/22/24 11:47 DS [id number] 11/22/24 11:54 DS Edit Result 11/22/24 11:47 DS (1) [id number] 11/22/24 12:01 DS (1) #7 L Ishium [...] Charges/Coding Visit Charges Office Visits / Consults: 21222 OV L4 Est 30min Procedures Integumentary 111xxx-113xx: 42771 Sherlyn subq tissue 20 sq cm/< Add On Codes: 74385 Sherlyn subq tissue add-on (x2 Additional square [...] with me. This note was generated with [employer] software. It may contain incorrectwords, spelling, and punctuation that were not noted in checking the note beforesigning. 11/23/24 1701 Cosigner Signature (if applicable): CC: ~ Signed [facility]03-18-2025 Evaluation note* Diagnosis Onset Date Resolution Status Admit Date Constipation acute August 21, 2024 1:19pm Decubitus ulcer of left buttock, stage 3 acute November 29, 2024 10:30am Decubitus ulcer of right buttock, stage 3 acute November 29, 2024 10:30am Pressure ulcer of sacral region, stage 3 chronic November 29, 2024 10:30am Spina bifida chronic November 29 025 10:30am [facility] Work Phone: 1(378) 517-506103-18-2025 Evaluation note* Diagnosis Onset Date Resolution Status [...] bifida chronic Roxanna 10th, 2 025 10:45am [facility] Work Phone: 1(604) 213-532103-03-2024 Note. MICRO - Microbiology PROCEDURE: Blood Culture [...] Locations *1: This test was performed at: [address], [facility] , [facility] (MD)08-07-2023 Note. MICRO - Microbiology PROCEDURE: Blood Culture [...] Locations *1: This test was performed at: [address], [address] [place] [address] (MD)01-25-2023 NoteHNO ID: [id number] Author: Nawaf Quinn MD Service: ? Author [...] in counseling regarding treatment options and coordinating care.[facility]07-25-2023 NoteHNO ID: [id number] Author: Shell Ruth PA-C Service: ? Author Type: Physician Service Tech Type: Progress Notes Filed: 01/12/2023 4:09 PM [...] ( she does not use Mychart) [facility]07-17-2023 NoteHNO ID: [id number] Author: Joshua Cabrera APRN.[facility] Service: ? Author Type: Nurse Practitioner Type: Progress Notes Filed: 12/20/2022 11:37 AM Note Text: Spoke with home nurse, Donna. She requested revised wound vac dressing change order to include layer of adaptic to prevent foam adhesion to wound bed. Called Alina and updated this. Joshua Cabrera APRN.[facility]07-11-2023 NoteHNO ID: [id number] Author: Nawaf Quinn MD Service: ? Author [...] visit to 10/05/22 Excision sacral pressure sore 40x17wx7 2. ATT 30k27fd NAES. Dehiscence again. Physical Exam General Appearance: [...] Past Histories independently gathered by the clinical technical sales support specialist and the remaining scribed note accurately describes my personal service to the patient.[facility]06-27-2023 NoteHNO ID: [id number] Author: Nawaf Quinn MD Service: ? Author [...] visit to 10/05/22 Excision sacral pressure sore 94i82lc5 2. ATT 02y57gz NAES. Dehiscence ?worsened. Physical Exam General Appearance: [...] Past Histories independently gathered by the clinical technical sales support specialist and the remaining scribed note accurately describes my personal service to the patient.[facility]06-15-2023 Note. MICRO - Microbiology PROCEDURE: Blood Culture (bacterial) [*1] SOURCE: Blood BODY SITE: COLLECTED DATE/TIME: 11/15/2022 14:35 EDT RECEIVED DATE/TIME: 11/16/2022 15:56 EDT START DATE/TIME: 11/16/2022 15:56 EDT FREE TEXT SOURCE: FINAL REPORTS Final Report [] Verified Date/Time/Personnel: 11/18/2022 08:09 EDT Group A Beta Hemolytic Strep (Strep pyogenes) Isolated from aerobe and anaerobe bottles. Refer to previous culture for susceptibility. [phone] This organism causes a reportable disease. Infection [...] Locations *1: This test was performed at: [address], [facility] , [facility] (MD)11-18-2022 Note. MICRO - Microbiology PROCEDURE: Blood Culture [...] Locations *1: This test was performed at: [address], [facility] , [facility] (MD)11-17-2022 NoteHNO ID: [id number] Author: Shell Ruht PA-C Service: ? Author Type: Physician Service Tech Type: Progress Notes Filed: 11/17/2022 12:13 PM [...] symptoms worsen - FU as scheduled [facility]06-06-2023 NoteHNO ID: [id number] Author: Nawaf Quinn MD Service: ? Author [...] visit to 10/05/22 Excision sacral pressure sore 46i63iq3 2. ATT 21l50pa NAES. Stable wound. Physical Exam General Appearance: [...] Past Histories independently gathered by the clinical technical sales support specialist and the remaining scribed note accurately describes my personal service to the patient.[facility]05-23-2023 NoteHNO ID: [id number] Author: Nawaf Quinn MD Service: ? Author Type: Physician Type: Progress Notes Filed: 10/29/2022 4:54 PM Note Text: Plastic Surgery Postop Note Subjective: Juliette Crews is a 47 year old female who presents today in post operative visit to 10/05/22 Excision sacral pressure sore 35j90pi6 2. ATT 38p87pr Physical Exam General Appearance: Well appearing, alert, [...] Past Histories independently gathered by the clinical technical sales support specialist and the remaining scribed note accurately describes my personal service to the patient.[facility]05-05-2023 NoteHNO ID: [id number] Author: Christina Turpin RN Service: Care Management Author Type: Registered Nurse Type: Care Mgt Progress Note Filed: 10/08/2022 1:43 PM Note Text: CARE MANAGEMENT PROGRESS NOTE SERVICE DATE: 10/08/2022 SERVICE TIME: 1:43 PM LOS: 3 days IMM Follow Up Copy Given: Yes Copy given to:: Patient Lead Pharmacy Technician Name/Relationship: mother Mierlla Method: By Phone SIGNATURE: Christina Turpin RN PATIENT NAME: Juliette Crews DATE: October 08, 2022 TIME: 1:42 PM PAGER/CONTACT #: [phone]05-05-2023 NoteHNO ID: [id number] Author: Christina Turpin RN Service: Care Management Author Type: Registered Nurse Type: Care Mgt Progress Note Filed: 10/08/2022 1:35 PM Note Text: CARE MANAGEMENT DISCHARGE NOTE SERVICE DATE: October 08, 2022 SERVICE TIME: 1:32 PM Admission Date: 10/05/2022 LOS: 3 days Discharge Arrangement Discharge Arrangement: Home with Home Health Services Arranged Medical Services: Skilled Home Health Care Type: Mcfp Provider Name: [facility] Caregiver Assessment Caregiver is ready, willing and able to meet the patient's needs as recommended by the inter-professional team: No Caregiver needed Transportation Arrangements Transportation Arrangements: Car Additional Information: Discharge orders in place , pt going home with PO antibiotics, [facility] able to provide alf, home care order and dc summary sent to home care, pt's mother able to provide transportation home; Mitch from [place] [employer] notified of discharge ; pt ready for discharge from care management standpoint SIGNATURE: Christina Turpin RN PATIENT NAME: Juliette Crews DATE: October 08, 2022 TIME: 1:32 PM CONTACT #: [id number] Hospital05-05-2023 Note HNO ID: [id number] Author: Viktor Jaramillo MD Service: Infectious Disease [...] follow-up. Viktor Jaramillo MD 10/08/2022 12:28 PM [facility] NoteHNO ID: [id number] Author: Shell Ruth PA-C Service: Plastic Surgery Author Type: Physician Service Tech Type: Progress Notes Filed: 10/08/2022 9:30 AM Note Text: PLASTIC SURGERY INPATIENT PROGRESS NOTE SERVICE DATE: 10/08/2022 SERVICE TIME: 9:13 AM Assessment/Plan POD #3 excision sacral pressure sore 14z35hj2 2. ATT 93b01xa - N: Continue pain control - P: [...] -- 10/05/22 1500 vte pharmacologic prophylaxis contraindicated (mn,oh) 10/05/22 1500 pneumatic compression stockings (mn,ca) VTE Prophylaxis: VTE prophylaxis appropriate SIGNATURE: Shell Ruth PA-C PATIENT NAME: Juliette Crews DATE: October 08, 2022 TIME: 9:13 [facility]05-04-2023 NoteHNO ID: [id number] Author: Shell Ruth PA-C Service: Plastic Surgery Author Type: Physician Service Tech Type: Progress Notes Filed: 10/07/2022 5:18 PM Note Text: PLASTIC SURGERY INPATIENT PROGRESS NOTE SERVICE DATE: 10/07/2022 SERVICE TIME: 4:41 PM Assessment/Plan POD #2 excision sacral pressure sore 68r95nl5 2. ATT 64f08bu - N: Continue pain control - P: [...] to record output - Dispo: home with [facility] after final ID recs Subjective INTERVAL HPI: [...] -- 10/05/22 1500 vte pharmacologic prophylaxis contraindicated (mn,oh) 10/05/22 1500 pneumatic compression stockings (mn,ca) VTE Prophylaxis: VTE prophylaxis appropriate SIGNATURE: Shell Ruth PA-C PATIENT NAME: Juliette Crews DATE: October 07, 2022 TIME: 4:40 [facility]05-04-2023 NoteHNO ID: [id number] Author: CHERYL Beth Service: Care Management Author Type: Jai Alai Player Type: Care Mgt Progress Note Filed: 10/07/2022 4:24 PM Note Text: CARE MANAGEMENT PROGRESS NOTE SERVICE DATE: 10/07/2022 SERVICE TIME: 4:20 PM LOS: 2 days SW called and spoke with Mitchlola from [facility]. Explained to Mitch that at this [...] as her primary agent. Reassured Mitch that [facility] has been secured. [facility] to provide service once patient is discharged. Mitch and patient [facility] staff have concerns about patient going to her mothers at discharge, but understood it is patients choice regarding discharge plans. SIGNATURE: CHERYL Beth PATIENT NAME: Juliette Crews DATE: October 07, 2022 TIME: 4:20 PM PAGER/CONTACT #: [phone] 10-07-2022 NoteHNO ID: [id number] Author: Christina Turpin RN Service: Care Management Author Type: Registered Nurse Type: Care Mgt Progress Note Filed: 10/07/2022 3:29 PM Note Text: CARE MANAGEMENT PROGRESS NOTE SERVICE DATE: 10/07/2022 SERVICE TIME: 3:22 PM LOS: 2 days Received phone call from from Mitch from [facility] of ) , made me aware that she will need discharge plan information and dc summary once pt leaves that hospital; She also expressed concerns about pt going home with her mother and [facility] rather than SNF, feels that pt would benefit from short SNF stay and is concerned about the quality of care that the pt's mother is able to provide at home; will revisit topic of SNF with pt at another time Original plan was to go home with [facility] , [facility] able to accept ; pt has wound care needs and will potentially need IV antibiotics, waiting on cultures SIGNATURE: Christina Turpin RN PATIENT NAME: Juliette Mabryr DATE: October 07, 2022 TIME: 3:22 PM PAGER/CONTACT #: [phone] Hospital05-03-2023 NoteHNO ID: [id number] Author: Christina Turpin RN Service: Care Management Author Type: Registered Nurse Type: Care Mgt Initial Assessment Filed: 10/06/2022 3:45 PM Note Text: CARE MANAGEMENT: ASSESSMENT AND DISCHARGE PLAN SERVICE DATE: October 06, 2022 SERVICE TIME: 3:36 PM PCP: Kassie Polanco APRN.CNP Primary Contact: Extended Emergency Contact Information Primary Emergency Contact: Mirella Pena Address: [address] [place] [address] Relation: Mother Admission Status: Inpatient Insurance Provider: [place] Discharge Planning requested by: Per Department Practice Potential Transition Plans Home Care Advance Directives Current Advance Directive: Health Care Power of Pre Certification Specialist In Chart: Yes Up To Date and [...] bed Discharge Planning Patient Goal(s): Heal wounds [place] of Choice Explained: [place] of [place] Given: No Reason Not Given: [...] prior to admission pt was going to [facility]'s wound care center every and [place] nursing staff and her mother assisting with daily wound care ; at this time pt and pt's mother are hoping for pt to return home at her mother's house with [facility] at discharge; they are agreeable to [facility] to assist with wound care at home ; still also need ID recs for antibiotics ; pt's mother able to provide transportation home SIGNATURE: Christina Turpin RN PATIENT NAME: Juliette Crews DATE: October 06, 2022 TIME: 3:36 PM CONTACT #: [id number] Hospital05-03-2023 Note HNO ID: [id number] Author: Shell Ruth PA-C Service: Plastic Surgery Author Type: Physician Service Tech Type: Progress Notes Filed: 10/07/2022 5:04 PM Note Text: Pt is POD #1 excision sacral wound gluteal rotation flap.[facility]05-03-2023 NoteHNO ID: [id number] Author: Michael Deleon MD Service: Orthopaedic Surgery Author Type: Resident Type: Progress Notes Filed: 10/06/2022 6:29 AM Note Text: Plastic Surgery Inpatient Progress Note Assessment Juliette Crews is a 47 year old female who is POD #1 status-post 1. Excision sacral pressure sore 19d54xh3 2. ATT 99s78si. Plan - Pain control. - Dressing(s): Maintain [...] Michael Deleon MD October 06, 2022 6:05 [facility]05-02-2023 NoteHNO ID: [id number] Author: Chelsea Astorga RN Service: Nursing Author Type: Registered Nurse Type: Nursing Progress Note Filed: 10/05/2022 12:55 PM Note Text: Dr Quinn at [facility]05-02-2023 NoteHNO ID: [id number] Author: Chelsea Astorga RN Service: Nursing Author Type: Registered Nurse Type: Nursing Progress Note Filed: 10/05/2022 12:55 PM Note Text: Dr Tavarez returns to [facility]05-02-2023 NoteHNO ID: [id number] Author: Chelsea Astorga RN Service: Nursing Author Type: Registered Nurse Type: Nursing Progress Note Filed: 10/05/2022 12:55 PM Note Text: Dr Tavarez at [facility]05-02-2023 NoteHNO ID: [id number] Author: Chelsea Astorga RN Service: Nursing Author Type: Registered Nurse Type: Nursing Progress Note Filed: 10/05/2022 12:54 PM Note Text: Dr Tavarez and Dr Quinn at [facility]05-02-2023 NoteHNO ID: [id number] Author: Chelsea Astorga RN Service: Nursing Author Type: Registered Nurse Type: Nursing Progress Note Filed: 10/05/2022 12:54 PM Note Text: Dr Tavarez at bedside and aware of [facility]05-02-2023 NoteHNO ID: [id number] Author: Sarah Kemp APRN.CRNA Service: Anesthesiology Author Type: Nurse Email Marketing Processor Type: Anesthesia Procedure Notes Filed: 10/05/2022 9:27 AM Note Text: ANESTHESIOLOGY PROCEDURE NOTE PIV General Information Procedure Start Time/Medication Administration: 10/05/2022 9:12 AM Patient Location: OR Staffing MAINTENANCE CLERK: Sarah Kemp APRN.MAINTENANCE CLERK Performed by: CARMENCITA Preparation Sterility Preparation: hand [...] October 05, 2022 TIME: 9:26 AM CSN: [id number] Hospital05-02-2023 NoteHNO ID: [id number] Author: Sarah Kemp APRN.CRNA Service: Anesthesiology Author Type: Nurse Email Marketing Processor Type: Anesthesia Procedure Notes Filed: 10/05/2022 8:37 AM Note Text: ANESTHESIOLOGY PROCEDURE NOTE Airway General Information Procedure Start Time/Medication Administration: 10/05/2022 8:15 AM Patient location during procedure: OR Timeout Performed Pre-procedure: timeout performed Consent Obtained: Yes Patient identity confirmed: arm band Staffing MAINTENANCE CLERK: Sarah Kemp APRN.MAINTENANCE CLERK Performed by: CARMENCITA Indications and Patient Condition [...] October 05, 2022 TIME: 8:37 AM CSN: [id number] Hospital04-20-[address] Kinney [facility] September 23, 2022 12:28pm Note Date/Time September 23, 2022 12: 28pm [facility] [address] [place] [address] Progress Note - Wound Care 09/23/22 1225 MR#: [id number] Acct: [id number] Name: JULIETTE CREWS RAI Rep #:[id number] : 1975 47 From: Savannah neri MD PCP: Kassie Polanco LAW ENFORCEMENT DIRECTOR-C Status:REG R CR Location: History of Present [...] Method Room Air Charges/Coding Procedures Integumentary 111xxx-113xx: 40367 Sherlyn subq tissue 20 sq cm/< Physical [...] Recorded Date Recorded By Document 09/09/22 11:24 [id number] 09/09/22 11:31 Document 09/16/22 11:25 [facility] [id number] 09/16/22 11:33 [facility] Document 09/23/22 11:14 [facility] [id number] 09/23/22 11:21 [facility] 09/09/22 09/16/22 09/23/22 11:24 11:25 11:14 - Today's Visit Information Type of service Follow-up Visit Follow-up Visit Follow-up Visit (Physician/REGULATORY AFFAIRS INTERN (Physician/REGULATORY AFFAIRS INTERN (Physician/REGULATORY AFFAIRS INTERN ) ) ) Arrival Mode Wheelchair Wheelchair [...] Recorded Date Recorded By Document 09/09/22 11:24 [id number] 09/09/22 11:31 DL Document 09/16/22 11:25 [facility] [id number] 09/16/22 11:33 BMF Document 09/23/22 11:14 [facility] [id number] 09/23/22 11:21 BMF 09/09/22 09/16/22 09/23/22 11:24 [...] Date Recorded By Document 09/09/22 11:51 MW [id number] 09/09/22 11:54 MW Document 09/16/22 12:02 MW [id number] 09/16/22 12:03 MW Document 09/23/22 11:30 MW [id number] 09/23/22 11:34 MW 09/09/22 09/16/22 09/23/22 11:51 [...] Recorded Date Recorded By Document 09/09/22 12:06 [id number] 09/09/22 12:07 Document 09/16/22 12:16 [facility] [id number] 09/16/22 12:17 [facility] Document 09/23/22 11:48 [facility] [id number] 09/23/22 11:48 [facility] 09/09/22 09/16/22 09/23/22 12:06 12:16 11:48 Wound Care Center Nurse 3 #6- sacral cluster -Ulcer Cleansing Rinsed/ Rinsed/ Rinsed/ Irrigated with Irrigated with Irrigated with Saline Saline Saline -Foul Odor after Cleansing No No No -Negative Pressure Wound Therapy N/A -Primary Dressing Applied Aquacel Extra Aquacel Extra Aquacel Extra -Other Dressing bactroban BACTROBAN, DRSG bactroban PER DL PRODUCTION SUPPLY EQUIPMENT TENDER -Primary Dressing Covered/Secured with Secured with Secured with Tape Tape -Other Covering abd pad ABD abd; drsg per dl rn angiography -Aquacel Extra 1 1 1 Treatment Response Procedure Procedure Procedure Tolerated Well Tolerated Well Tolerated Well Pain Scale: 0-10 Numeric Is Patient Pain Free? Yes Yes Yes Teaching: Wound Center Dressing Your Wound -Person Taught Patient,Primary Caregiver -Teaching Method Discussion, Demonstration -Response to teaching Verbalize understanding WC - Visit Discharge Discharge Condition Stable Stable Stable Ambulatory Status Wheelchair Wheelchair Wheelchair Transportation Private Auto [facility] Private Auto TRANSPORT Accompanied by caregivers 2 caregivers from [facility] Medication Reconcilliation completed & No provided to patient/care provider Clinical Summary of Care Provided Yes Facility Type Home Health Other [facility] Assessment/Plan Assessment/Plan (1) Pressure ulcer of sacral [...] voiced understanding. This note was generated with [facility] dictation software. It may contain incorrectwords, spelling, and punctuation that were not noted in checking the note beforesigning. 09/23/22 1228 <Electronically signed by Savannah Kinney MD> Cosigner Signature (if applicable): CC: ~ Signed [facility] Work Phone: 1(810) 285-868604-13-[address] Kinney [facility] September 16, 2022 1:23pm Note Date/Time September 16, 2022 1:2 3pm [facility] [address] [place] [address] Progress Note - Wound Care 09/16/22 1321 MR#: [id number] Acct: [id number] Name: JULIETTE CREWS RAI Rep #:[id number] : 1975 47 From: Savannah neri MD PCP: Kassie Polanco LAW ENFORCEMENT DIRECTOR-C Status:REG R CR Location: History of Present [...] Method Room Air Charges/Coding Procedures Integumentary 111xxx-113xx: 53100 Sherlyn subq tissue 20 sq cm/< Physical [...] Date Recorded By Document 09/09/22 11:24 DL [id number] 09/09/22 11:31 DL Document 09/16/22 11:25 [facility] [id number] 09/16/22 11:33 BM 09/09/22 09/16/22 11:24 11:25 - Today's Visit Information Type of service Follow-up Visit Follow-up Visit (Physician/REGULATORY AFFAIRS INTERN (Physician/REGULATORY AFFAIRS INTERN ) ) Arrival Mode Wheelchair Wheelchair Transfer [...] Date Recorded By Document 09/09/22 11:24 DL [id number] 09/09/22 11:31 DL Document 09/16/22 11:25 BMF [id number] 09/16/22 11:33 BMF 09/09/22 09/16/22 11:24 11:25 [...] Date Recorded By Document 09/09/22 11:51 MW [id number] 09/09/22 11:54 MW Document 09/16/22 12:02 MW [id number] 09/16/22 12:03 MW 09/09/22 09/16/22 11:51 12:02 [...] Recorded Date Recorded By Document 09/09/22 12:06 [id number] 09/09/22 12:07 MW Document 09/16/22 12:16 [facility] [id number] 09/16/22 12:17 [facility] 09/09/22 09/16/22 12:06 12:16 Wound Care Center Nurse 3 #6- sacral cluster -Ulcer Cleansing Rinsed/ Rinsed/ Irrigated with Irrigated with Saline Saline -Foul Odor after Cleansing No No -Negative Pressure Wound Therapy N/A -Primary Dressing Applied Aquacel Extra Aquacel Extra -Other Dressing bactroban BACTROBAN, DRSG PER DL PRODUCTION SUPPLY EQUIPMENT TENDER -Primary Dressing Covered/Secured with Secured with Tape [...] Ambulatory Status Wheelchair Wheelchair Transportation Private Auto [facility] TRANSPORT Accompanied by caregivers Medication Reconcilliation completed & No provided to patient/care provider Clinical Summary of Care Provided Yes Other [facility] Assessment/Plan Assessment/Plan (1) Pressure ulcer of sacral [...] 1 week. This note was generated with [facility] dictation software. It may contain incorrectwords, spelling, and punctuation that were not noted in checking the note beforesigning. 09/16/22 1323 <Electronically signed by Savannah Kinney MD> Cosigner Signature (if applicable): CC: ~ Signed [facility] Work Phone: 1(116) 648-150304-06-[address] Kinney [facility] September 09, 2022 5:10pm Note Date/Time September 09, 2022 5:10 pm [facility] [address] [place] [address] Progress Note - Wound Care 09/09/22 1708 MR#: [id number] Acct: [id number] Name: JULIETTE CREWS RAI Rep #:[id number] : 1975 47 From: Savannah neri MD [...] 11:24 09/09/22 11:24 Charges/Coding Procedures Integumentary 111xxx-113xx: 10360 Sherlyn subq tissue 20 sq cm/< Physical [...] Date Recorded By Document 09/09/22 11:24 INO [id number] 09/09/22 11:31 DL 09/09/22 11:24 - Today's Visit Information Type of service Follow-up Visit (Physician/REGULATORY AFFAIRS INTERN ) Arrival Mode Wheelchair Transfer Assistance Manual [...] Recorded Date Recorded By Document 09/09/22 11:24 [id number] 09/09/22 11:31 DL 09/09/22 11:24 Wound Center [...] Date Recorded By Document 09/09/22 11:51 MW [id number] 09/09/22 11:54 MW 09/09/22 11:51 Wound Center [...] Date Recorded By Document 09/09/22 12:06 MW [id number] 09/09/22 12:07 MW 09/09/22 12:06 Wound Care [...] 1 week. This note was generated with [facility] dictation software. It may contain incorrectwords, spelling, and punctuation that were not noted in checking the note beforesigning. 09/09/22 1710 <Electronically signed by Savannah Kinney MD> Cosigner Signature (if applicable): CC: ~ Signed [facility] Work Phone: 1(492) 133-117103-23-[address] Kinney [facility] August 26, 2022 12:34pm Note Date/Time August 26, 2022 12: 30pm [facility] [address] [place] [address] Progress Note - Wound Care 08/26/22 1227 MR#: [id number] Acct: [id number] Name: JULIETTE CREWS RAI Rep #:[id number] : 1975 47 From: Savannah neri MD PCP: ADAN Joesph Status:REG R CR Location: History of Present [...] Recorded Date Recorded By Document 08/05/22 10:27 [facility] [id number] 08/05/22 10:37 [facility] Document 08/12/22 11:18 [facility] [id number] 08/12/22 11:24 BM Document 08/26/22 10:57 [facility] [id number] 08/26/22 11:05 [facility] 08/05/22 08/12/22 08/26/22 10:27 11:18 10:57 - Today's Visit Information Type of service Follow-up Visit Follow-up Visit Follow-up Visit (Physician/REGULATORY AFFAIRS INTERN (Physician/REGULATORY AFFAIRS INTERN (Physician/REGULATORY AFFAIRS INTERN ) ) ) Arrival Mode Wheelchair Wheelchair [...] Recorded Date Recorded By Document 08/05/22 10:27 [facility] [id number] 08/05/22 10:37 [facility] Document 08/12/22 11:18 [facility] [id number] 08/12/22 11:24 [facility] Document 08/26/22 10:57 [facility] [id number] 08/26/22 11:05 [facility] 08/05/22 08/12/22 08/26/22 10:27 11:18 10:57 [...] (1-33%) None Present (0 %) -Granulation Quality [place] Red -Slough/Fibrin Yes Yes Yes -Necrosis Amt [...] Date Recorded By Document 08/05/22 10:48 MW [id number] 08/05/22 10:52 MW Document 08/12/22 11:28 BMF [id number] 08/12/22 11:47 BMF Document 08/26/22 11:26 MW [id number] 08/26/22 11:29 MW 08/05/22 08/12/22 08/26/22 10:48 [...] Recorded Date Recorded By Document 08/05/22 11:15 [facility] [id number] 08/05/22 11:15 [facility] Document 08/12/22 11:52 [id number] 08/12/22 11:52 Document 08/26/22 11:36 BMF [id number] 08/26/22 11:38 BMF Edit Result 08/26/22 11:36 BMF (1) [id number] 08/26/22 11:40 BMF (1) #6- sacral cluster [...] Provided Yes Facility Type Home Health Other [facility] Orders Sent Yes Assessment/Plan Assessment/Plan (1) Pressure [...] 2 weeks. This note was generated with [facility] dictation software. It may contain incorrectwords, spelling, and punctuation that were not noted in checking the note beforesigning. 08/26/22 1234 <Electronically signed by Savannah Kinney MD> Cosigner Signature (if applicable): CC: ~ Signed [facility] Work Phone: 1(775) 378-496103-09-[address] Kinney [facility] August 12, 2022 11:39am Note Date/Time August 12, 2022 11:3 9am [facility] [address] [place] [address] Progress Note - Wound Care 08/12/22 1137 MR#: [id number] Acct: [id number] Name: JULIETTE CREWS RAI Rep #:[id number] : 1975 47 From: Savannah neri MD [...] Method Room Air Charges/Coding Procedures Integumentary 111xxx-113xx: 80129 Sherlyn subq tissue 20 sq cm/< Physical [...] Recorded Date Recorded By Document 08/05/22 10:27 [facility] [id number] 08/05/22 10:37 [facility] Document 08/12/22 11:18 [facility] [id number] 08/12/22 11:24 [facility] 08/05/22 08/12/22 10:27 11:18 - Today's Visit Information Type of service Follow-up Visit Follow-up Visit (Physician/REGULATORY AFFAIRS INTERN (Physician/REGULATORY AFFAIRS INTERN ) ) Arrival Mode Wheelchair Wheelchair Transfer [...] Recorded Date Recorded By Document 08/05/22 10:27 [facility] [id number] 08/05/22 10:37 [facility] Document 08/12/22 11:18 [facility] [id number] 08/12/22 11:24 [facility] 08/05/22 08/12/22 10:27 11:18 Wound Center [...] Amt Small (1-33%) Small (1-33%) -Granulation Quality [place] Red -Slough/Fibrin Yes Yes -Necrosis Amt Large [...] Date Recorded By Document 08/05/22 10:48 MW [id number] 08/05/22 10:52 MW 08/05/22 10:48 Wound Center [...] Recorded Date Recorded By Document 08/05/22 11:15 [facility] [id number] 08/05/22 11:15 [facility] 08/05/22 11:15 Wound Care Center Nurse [...] Private Auto Accompanied by 2 CAREGIVERS Other [facility] Assessment/Plan Assessment/Plan (1) Pressure ulcer of sacral [...] 1 week. This note was generated with [facility] dictation software. It may contain incorrectwords, spelling, and punctuation that were not noted in checking the note beforesigning. 08/12/22 1137 <Electronically signed by Savannah Kinney MD> Cosigner Signature (if applicable): CC: ~ Signed [facility] Work Phone: 1(535) 396-251903-02-2023 Miscellaneous Notes* Telephone Encounter - Nunu Alex LPN - 08/05/2022 3:34 PM EST Hi- Dr. Quinn saw this patient yesterday in office. Would this be okay to call in instead of[facility] if she would like to go through her pharmacy? Thank you! Nunu Alex LPN documented in [facility] Kinney [facility] August 05, 2022 1:30pm Note Date/Time August 05, 2022 1:30 pm [facility] [address] [place] [address] Progress Note - Wound Care 08/05/22 1327 MR#: [id number] Acct: [id number] Name: JULIETTE CREWS RAI Rep #:[id number] : 1975 47 From: Savannah neri MD PCP: Kassie Polanco LAW ENFORCEMENT DIRECTOR-C Status:REG R CR Location: History of Present [...] Method Room Air Charges/Coding Procedures Integumentary 111xxx-113xx: 35677 Sherlyn subq tissue 20 sq cm/< Physical [...] Recorded Date Recorded By Document 08/05/22 10:27 [facility] [id number] 08/05/22 10:37 [facility] 08/05/22 10:27 WC - Today's Visit Information Type of service Follow-up Visit (Physician/REGULATORY AFFAIRS INTERN ) Arrival Mode Wheelchair Transfer Assistance Manual [...] Recorded Date Recorded By Document 08/05/22 10:27 [facility] [id number] 08/05/22 10:37 [facility] 08/05/22 10:27 Wound Center Nurse 1 [...] Thickened -Granulation Amt Small (1-33%) -Granulation Quality [place] -Slough/Fibrin Yes -Necrosis Amt Large (67-100%) -Necrotic [...] Date Recorded By Document 08/05/22 10:48 MW [id number] 08/05/22 10:52 MW 08/05/22 10:48 Wound Center [...] Recorded Date Recorded By Document 08/05/22 11:15 [facility] [id number] 08/05/22 11:15 [facility] 08/05/22 11:15 Wound Care Center Nurse [...] Private Auto Accompanied by 2 CAREGIVERS Other [facility] Assessment/Plan Assessment/Plan (1) Pressure ulcer of sacral [...] 1 week. This note was generated with [facility] dictation software. It may contain incorrectwords, spelling, and punctuation that were not noted in checking the note beforesigning. 08/05/22 1330 <Electronically signed by Savannah Kinney MD> Cosigner Signature (if applicable): CC: ~ Signed [facility] Work Phone: 1(796) 613-681203-01-2023 NoteHNO ID: [id number] Author: Nawaf Quinn MD Service: ? Author Type: Physician Type: Progress Notes Filed: 08/05/2022 12:10 PM Note Text: Nawaf Quinn [address] [facility] [address] [place] [address] Plastic Surgery New Office Note CC: Wound [...] Past Histories independently gathered by the clinical technical sales support specialist and the remaining scribed note accurately describes my personal service to the patient. Surgery Scheduling Juliette Crews 1975 Procedure: excision sacral pressure sore, immediate reconstruction with gluteal rotations or v-y advancement flap OR Time Needed: 3 hrs [place] or [facility] Equipment Request: clinitron bed, ronguers, rasps, plastic set, two bovies, 19F drains x2, 2-0 undyed vicryl, 3-0 nylon, stapler (extra), prineo SA Requested: Yes Anesthesia: General - prone Post op appointment: 3,6 Inpatient stay:Yes Block Needed: No Pre Testing Needed: Yes Occupational Therapy: No Cosmetic: No Nawaf Quinn, [facility]03-01-2023 History of Present illness Narrative* Nawaf Quinn MD - 08/04/2022 1:30 PM EST Images from the original note were not included. Nawaf Quinn [address] [address] Plastic Surgery New Office Note CC: Wound [...] Past Histories independently gathered by the clinical technical sales support specialist and the remaining scribed note accurately describes my personal service to the patient. Surgery Scheduling Juliette Crews 1975 Procedure: excision sacral pressure sore, immediate reconstruction with gluteal rotations or v-y advancement flap OR Time Needed: 3 hrs [place] or [facility] Equipment Request: clinitron bed, ronguers, rasps, plastic set, two bovies, 19F drains x2, 2-0 undyed vicryl, 3-0 nylon, stapler (extra), prineo SA Requested: Yes Anesthesia: General - prone Post op appointment: 3,6 Inpatient stay:Yes Block Needed: No Pre Testing Needed: Yes Occupational Therapy: No Cosmetic: No Nawaf Quinn MD documented in this encounterUniversity [facility]02-23-[address] Kinney [facility] July 29, 2022 12:34pm Note Date/Time July 29, 2022 12:30pm [facility] [address] [facility] [place] [address] Progress Note - Wound Care 07/29/22 1227 MR#: [id number] Acct: [id number] Name: JULIETTE CREWS RAI Rep #:[id number] : 1975 47 From: Savannah neri MD PCP: Kassie Polanco, LAW ENFORCEMENT DIRECTOR-C Status:REG R CR Location: History of Present [...] anaerobic bacteria isolated. Charges/Coding Procedures Integumentary 111xxx-113xx: 55372 Sherlyn subq tissue 20 sq cm/< Physical [...] Date Recorded By Document 07/08/22 10:15 DL [id number] 07/08/22 10:25 DL Document 07/22/22 10:10 [facility] [id number] 07/22/22 10:20 [facility] Document 07/29/22 10:52 DL [id number] 07/29/22 10:54 DL 07/08/22 07/22/22 07/29/22 10:15 10:10 10:52 - Today's Visit Information Type of service Follow-up Visit Follow-up Visit Follow-up Visit (Physician/REGULATORY AFFAIRS INTERN (Physician/REGULATORY AFFAIRS INTERN (Physician/REGULATORY AFFAIRS INTERN ) ) ) Arrival Mode Wheelchair Wheelchair [...] Date Recorded By Document 07/08/22 10:15 DL [id number] 07/08/22 10:25 DL Document 07/22/22 10:10 [facility] [id number] 07/22/22 10:20 [facility] Document 07/29/22 10:52 DL [id number] 07/29/22 10:54 DL 07/08/22 07/22/22 07/29/22 10:15 [...] (34-66%) Small (1-33%) Medium (34-66%) -Granulation Quality [place],Red Red [place],Red -Slough/Fibrin Yes -Necrosis Amt Medium (34-66%) Large [...] Date Recorded By Document 07/08/22 10:29 MW [id number] 07/08/22 10:31 MW Document 07/22/22 10:47 MW [id number] 07/22/22 10:55 MW Document 07/29/22 10:59 MW [id number] 07/29/22 11:05 MW 07/08/22 07/22/22 07/29/22 10:29 [...] Date Recorded By Document 07/08/22 10:31 MW [id number] 07/08/22 10:32 MW Document 07/22/22 11:07 MW [id number] 07/22/22 11:08 MW 07/08/22 07/22/22 10:31 11:07 [...] 1 week. This note was generated with [facility] dictation software. It may contain incorrectwords, spelling, and punctuation that were not noted in checking the note beforesigning. 07/29/22 1234 <Electronically signed by Savannah Kinney MD> Cosigner Signature (if applicable): CC: ~ Signed [facility] Work Phone: 1(142) 611-348302-16-[address] Kinney [facility] July 22, 2022 12:59pm Note Date/Time July 22, 2022 12:59pm [facility] [address] [place] [address] Progress Note - Wound Care 07/22/22 1254 MR#: [id number] Acct: [id number] Name: JULIETTE CREWS RAI Rep #:[id number] : 1975 47 From: Savannah neri MD PCP: Kassie Polanco LAW ENFORCEMENT DIRECTOR-C Status:REG R CR Location: History of Present [...] 10:15 07/22/22 10:10 Charges/Coding Procedures Integumentary 111xxx-113xx: 47158 Sherlyn subq tissue 20 sq cm/< Physical [...] Date Recorded By Document 07/08/22 10:15 DL [id number] 07/08/22 10:25 DL Document 07/22/22 10:10 BM [id number] 07/22/22 10:20 BMF 07/08/22 07/22/22 10:15 10:10 WC - Today's Visit Information Type of service Follow-up Visit Follow-up Visit (Physician/REGULATORY AFFAIRS INTERN (Physician/REGULATORY AFFAIRS INTERN ) ) Arrival Mode Wheelchair Wheelchair Transfer [...] Date Recorded By Document 07/08/22 10:15 DL [id number] 07/08/22 10:25 DL Document 07/22/22 10:10 BM [id number] 07/22/22 10:20 BMF 07/08/22 07/22/22 10:15 10:10 [...] Amt Medium (34-66%) Small (1-33%) -Granulation Quality [place],Red Red -Slough/Fibrin Yes -Necrosis Amt Medium (34-66%) [...] Date Recorded By Document 07/08/22 10:29 MW [id number] 07/08/22 10:31 MW Document 07/22/22 10:47 MW [id number] 07/22/22 10:55 MW 07/08/22 07/22/22 10:29 10:47 [...] Date Recorded By Document 07/08/22 10:31 MW [id number] 07/08/22 10:32 MW Document 07/22/22 11:07 MW [id number] 07/22/22 11:08 MW 07/08/22 07/22/22 10:31 11:07 [...] 1 week. This note was generated with [employer] [facility] [employer] software. It may contain incorrectwords, spelling, and punctuation that were not noted in checking the note beforesigning. 07/22/22 1259 <Electronically signed by Savannah Kinney MD> Cosigner Signature (if applicable): CC: ~ Signed [facility] Work Phone: 1(276) 425-851602-02-[address] Kinney [facility] July 08, 2022 10:44am Note Date/Time July 08, 2022 1 0:37am [facility] [address] [place] [address] Progress Note - Wound Care 07/08/22 1035 MR#: [id number] Acct: [id number] Name: JULIETTE CERWS RAI Rep #:[id number] : 1975 47 From: Savannah neri MD PCP: Kassie Polanco LAW ENFORCEMENT DIRECTOR-C Status:REG R CR Location: History of Present [...] 10:15 07/08/22 10:15 Charges/Coding Procedures Integumentary 111xxx-113xx: 38341 Sherlyn subq tissue 20 sq cm/< Physical [...] Date Recorded By Document 07/08/22 10:15 DL [id number] 07/08/22 10:25 DL 07/08/22 10:15 - Today's Visit Information Type of service Follow-up Visit (Physician/REGULATORY AFFAIRS INTERN ) Arrival Mode Wheelchair Transfer Assistance Manual,None [...] Date Recorded By Document 07/08/22 10:15 DL [id number] 07/08/22 10:25 DL 07/08/22 10:15 Wound Center Nurse 1 #6- sacral cluster -Current Size (cm) - Length 1.8 -Current Size (cm) - Width 1.9 -Current Size (cm) - Depth 0.7 -Total Square Cm 3.42 -Photo Taken Yes -Exudate Amt Medium -Exudate Type Serosanguineous -Wound Margin Distinct, Outline Attached -Granulation Amt Medium (34-66%) -Granulation Quality [place],Red -Necrosis Amt Medium (34-66%) -Necrotic Tissue Type [...] Date Recorded By Document 07/08/22 10:29 MW [id number] 07/08/22 10:31 MW 07/08/22 10:29 Wound Center [...] Date Recorded By Document 07/08/22 10:31 MW [id number] 07/08/22 10:32 MW 07/08/22 10:31 Wound Care [...] 1 week. This note was generated with [facility] dictation software. It may contain incorrectwords, spelling, and punctuation that were not noted in checking the note beforesigning. 07/08/22 1044 <Electronically signed by Savannah Kinney MD> Cosigner Signature (if applicable): CC: ~ Signed [facility] Work Phone: Consult note Author Rex Martinez [facility] Note Date/Time January 22, 2025 12 :52pm [facility] Medical Records Department [address] [place] [address] Anesthesia Postop Eval I 01/22/25 1251 MR#: [id number] Acct: [id number] Name: JULIETTE CREWS RAI Rep #:[id number] : 1975 49 From: Rex Martinez PCP: GARY JosephC Status:REG S DC Y Race: C Location: [place] [address] Anesthesia: Postop Eval I Current Vital Signs [...] Rex Palma Signature: Date CC: ~ Signed [facility] Work Phone: evaluation noteNo assessment information available [facility] Work Phone: evaluation note* Diagnosis Onset Date Resolution Status Pressure ulcer of sacral region, stage 3 chronic Spina bifida [facility] Work Phone: evaluation note* Diagnosis Onset Date Resolution Status Pressure ulcer of sacral region, stage 3 chronic Spina bifida chronic Pressure ulcer of sacral region, stage 3 chronic Spina bifida chronic [facility] Work Phone: evaluation note* Diagnosis Onset Date Resolution Status Pressure ulcer of sacral region, stage 3 chronic Spina bifida chronic Pressure ulcer of sacral region, stage 3 chronic Spina bifida chronic Pressure ulcer of sacral region, stage 3 chronic Spina bifida chronic [facility] Work Phone: evaluation note* Diagnosis Onset Date Resolution Status Pressure ulcer of sacral region, stage 3 chronic Spina bifida chronic Pressure ulcer of sacral region, stage 3 chronic Spina bifida chronic Pressure ulcer of sacral region, stage 3 chronic Spina bifida chronic Pressure ulcer of sacral region, stage 3 chronic Spina bifida chronic [facility] Work Phone: evaluation note* Diagnosis Pressure injury of sacral region, stage 4 (HCC)- Primary documented in this encounter [facility] Author Shell Brewer [facility] Note Date/Time January 30, 2025 9: 27am [facility] [address] [place] [address] OFFICE VISIT Date of Service: 01/30/25 MR#: [id number] Acct: [id number] Name: JULIETTE CREWS RAI Rep #: [id number] : 1975 Provider: ADAN Brewer Age/Sex: 49/F Location: [facility] Status: Signed Intake Vital Signs 08/21/24 13:52 01/22/25 10:01 01/30/25 09:14 Height 4 ft 7.9 in 5 ft 5 ft Weight: 135 lb BMI 26.4 BP 120/81 H Respiration 18 Pulse Oximetry (%) 95 Oxygen Delivery Method room air Intake Visit Reasons: Test Result Chief Complaint: constipaiton [employer] Required: No Accompanied by: Caregiver Is patient [...] 17 gram 17 gm PO DAILY PRN AL N Constipation 09/14/20 01/30/25 History oral powder [...] today with her mom, sister andcaregiver from [facility]. She has tried and failed multiple OTC [...] secondary to frequent soiling. She resides in [facility] and they are aware they [...] office today with mom and staff from [facility] - presents in wheel chair - having [...] and overweight Orientation: alert Other: presents in [facility] Head: normocephalic Ears: hearing grossly normal bilaterally [...] Cosigner Signature: Date (if applicable) CC: ~ [facility] Work Phone: Reason for referral (narrative)No reason for referral information availableWOur [facility] Work Phone: Summary Purpose Family History No [...] Yes September 19, 2020 8:37am Power of Pre Certification Specialist Yes September 19 8:37am Advance Directive Response Recorded Date/ Time Name of Medical Power of Pre Certification Specialist MOTHER October 28, 2021 12:53pm Living Will Yes October 28, 2021 1 2:53pm Power of Pre Certification Specialist Yes October 28, 2021 12:53pm Advance Directive Response Recorded Date/ Time Living Will Yes October 28, 2021 1 2:53pm Power of Pre Certification Specialist Yes October 28, 2021 12:53pm Advance Directive Response Recorded Date/ Time Living Will Yes October 28, 2021 1 1:53am Power of Pre Certification Specialist Yes October 28, 2021 11:53am Documents on File Type Date Recorded Patient Lead Pharmacy Technician Expl anation Advance Directive(s) 03/12/2013 9:52 AM Advance Directive Response Recorded Date/ Time Do you have a Healthcare Power of Pre Certification Specialist? Yes January 22, 2025 10:33am Chief Complaint [...] section and content) DATE CREATED AUTHOR 11/28/2017 [facility] DATE CREATED AUTHOR AUTHOR'S ORGANIZ ATION 10/10/2022 [facility] ([place] DATE CREATED AUTHOR AUTHOR'S ORGANIZ ATION 03/18/2023 [facility] DATE CREATED AUTHOR AUTHOR'S ORGANIZ ATION 08/08/2023 [facility] [place]) DATE CREATED AUTHOR AUTHOR'S ORGANIZ ATION 04/06/2025 [facility] DATE CREATED AUTHOR AUTHOR'S ORGANIZ ATION 04/18/2025 [facility] Goals (unrecognized section and content) Goals may [...] MD Family Provider Active Kassie Polanco NP, LAW ENFORCEMENT DIRECTOR-C Primary Care Provider Active Team Status: Active Member Role Status Dates Kassie Polanco NP, LAW ENFORCEMENT DIRECTOR-C Primary Care Provider Active Dr. Savannah Kinney MD Attending Provider, Other Mn ovider Active Team Status: Inactive Member Role Status Dates Kassie Polanco NP, LAW ENFORCEMENT DIRECTOR-C Primary Care Provider Active Dr. Savannah Kinney MD Attending Provider Active Team Status: Active Member Role/Relationship Status Dates Kassie Polanco NP, LAW ENFORCEMENT DIRECTOR-C Primary Care Provider Active Team Status: Inactive Member Role/Relationship Status Dates aKssie Polanco NP, LAW ENFORCEMENT DIRECTOR-C Primary Care Provider Active Start: August 21, 2024 End: August 21, 2024 Kassie Polanco NP, NP-C Referring Provider Active Start: August 21, 2024 End: August 21, 2024 Shell Brewer NP-C Attending Provider Active Start: August 21, 2024 End: August 21, 2024 Team Status: Active Member Role/Relationship Status Dates Kassie Polanco NP, LAW ENFORCEMENT DIRECTOR-C Primary Care Provider Active Start: November 22, 2024 Dr. Savannah Kinney MD Attending Provider Active Start: November 22, 2024 Dr. Savannah Kinney MD Other Provider Active Start: November 22, 2024 No Primary Care Physician Referring Provider Active Start: November 22, 2024 Team Status: Inactive Member Role/Relationship Status Dates Kassie Polanco NP, LAW ENFORCEMENT DIRECTOR-C Primary Care Provider Active Start: November 29, 2024 End: December 03, 2024 Dr. Savannah Kinney MD Attending Provider Active Start: November 29, 2024 End: December 03, 2024 No Primary Care Physician Referring Provider Active Start: November 29, 2024 End: December 03, 2024 Team Status: Active Member Role/Relationship Status Dates Kassie Polanco LAW ENFORCEMENT DIRECTOR, LAW ENFORCEMENT DIRECTOR-C Primary Care Provider Active Start: November 29, 2024 Dr. Savannah Kinney MD Other Provider Active Start: November 29, 2024 No Primary Care Physician Referring Provider Active Start: November 29, 2024 Dr. Brett Vincent MD Attending Provider Active Start: November 29, 2024 Team Status: Active Member Role/Relationship Status Dates Kassie Polanco NP, LAW ENFORCEMENT DIRECTOR-C Primary Care Provider Active Start: December 06, 2024 Dr. Savannah Kinney MD Attending Provider Active Start: December 06, 2024 Dr. Savannah Kinney MD Other Provider Active Start: December 06, 2024 No Primary Care Physician Referring Provider Active Start: December 06, 2024 Team Status: Inactive Member Role/Relationship Status Dates Kassie Polanco NP, LAW ENFORCEMENT DIRECTOR-C Primary Care Provider Active Start: December 13, 2024 End: December 13, 2024 Dr. Savannah Kinney MD Attending Provider Active Start: December 13, 2024 End: December 13, 2024 No Primary Care Physician Referring Provider Active Start: December 13, 2024 End: December 13, 2024 Team Status: Active Member Role/Relationship Status Dates Kassie Polanco NP, LAW ENFORCEMENT DIRECTOR-C Primary Care Provider Active Start: November 22, 2024 Dr. Savannah Kinney MD Attending Provider Active Start: November 22, 2024 Dr. Savannah Kinney MD Other Provider Active Start: November 22, 2024 No Primary Care Physician Referring Provider Active Start: November 22, 2024 Team Status: Inactive Member Role/Relationship Status Dates Kassie Polanco LAW ENFORCEMENT DIRECTOR, LAW ENFORCEMENT DIRECTOR-C Primary Care Provider Active Start: November 29, 2024 End: December 03, 2024 Dr. Savannah Kinney MD Attending Provider Active Start: November 29, 2024 End: December 03, 2024 No Primary Care Physician Referring Provider Active Start: November 29, 2024 End: December 03, 2024 Team Status: Active Member Role/Relationship Status Dates Kassie Polanco NP, LAW ENFORCEMENT DIRECTOR-C Primary Care Provider Active Start: November 29, 2024 Dr. Savannah Kinney MD Other Provider Active Start: November 29, 2024 No Primary Care Physician Referring Provider Active Start: November 29, 2024 Dr. Brett Vincent MD Attending Provider Active Start: November 29, 2024 Team Status: Active Member Role/Relationship Status Dates Kassie Polanco LAW ENFORCEMENT DIRECTOR, LAW ENFORCEMENT DIRECTOR-C Primary Care Provider Active Start: December 06, 2024 Dr. Savannah Kinney MD Attending Provider Active Start: December 06, 2024 Dr. Savannah Kinney MD Other Provider Active Start: December 06, 2024 No Primary Care Physician Referring Provider Active Start: December 06, 2024 Team Status: Inactive Member Role/Relationship Status Dates Kassie Polanco LAW ENFORCEMENT DIRECTOR, LAW ENFORCEMENT DIRECTOR-C Primary Care Provider Active Start: December 13, 2024 End: December 13, 2024 Dr. Savannah Kinney MD Attending Provider Active Start: December 13, 2024 End: December 13, 2024 No Primary Care Physician Referring Provider Active Start: December 13, 2024 End: December 13, 2024 Team Status: Active Member Role/Relationship Status Dates Kassie Polanco LAW ENFORCEMENT DIRECTOR, LAW ENFORCEMENT DIRECTOR-C Primary Care Provider Active Start: December 13, 2024 Dr. Savannah Kinney MD Attending Provider Active Start: December 13, 2024 Dr. Savannah Kinney MD Other Provider Active Start: December 13, 2024 No Primary Care Physician Referring Provider Active Start: December 13, 2024 Team Status: Inactive Member Role/Relationship Status Dates Kassie Polanco LAW ENFORCEMENT DIRECTOR, LAW ENFORCEMENT DIRECTOR-C Primary Care Provider Active Start: January 03, 2025 End: January 03, 2025 Dr. Savannah Kinney MD Attending Provider Active Start: January 03, 2025 End: January 03, 2025 Dr. Savannah Kinney MD Referring Provider Active Start: January 03, 2025 End: January 03, 2025 Team Status: Active Member Role/Relationship Status Dates Kassie Polanco LAW ENFORCEMENT DIRECTOR, LAW ENFORCEMENT DIRECTOR-C Primary Care Provider Active Start: January 03, 2025 Dr. Savannah Kinney MD Attending Provider Active Start: January 03, 2025 Dr. Savannah Kinney MD Referring Provider Active Start: January 03, 2025 Dr. Savannah Kinney MD Other Provider Active Start: January 03, 2025 Team Status: Active Member Role/Relationship Status Dates Kassie Polanco LAW ENFORCEMENT DIRECTOR, LAW ENFORCEMENT DIRECTOR-C Primary Care Provider Active Start: January 10, 2025 Dr. Savannah Kinney MD Attending Provider Active Start: January 10, 2025 Dr. Savannah Kinney MD Referring Provider Active Start: January 10, 2025 Dr. Savannah Kinney MD Other Provider Active Start: January 10, 2025 Team Status: Active Member Role/Relationship Status Dates Kassie Polanco LAW ENFORCEMENT DIRECTOR, LAW ENFORCEMENT DIRECTOR-C Primary Care Provider Active Start: January 15, 2025 Dr. Enzo Hernandez MD Attending Provider Active Start: January 15, 2025 Dr. Enzo Hernandez MD Referring Provider Active Start: January 15, 2025 Team Status: Active Member Role/Relationship Status Dates Kassie Polanco LAW ENFORCEMENT DIRECTOR, LAW ENFORCEMENT DIRECTOR-C Primary Care Provider Active Start: January 17, 2025 Dr. Savannah Kinney MD Attending Provider Active Start: January 17, 2025 Dr. Savannah Kinney MD Referring Provider Active Start: January 17, 2025 Team Status: Active Member Role/Relationship Status Dates Kassie Polanco LAW ENFORCEMENT DIRECTOR, LAW ENFORCEMENT DIRECTOR-C Primary Care Provider Active Start: January 17, 2025 Dr. Savannah Kinney MD Attending Provider Active Start: January 17, 2025 Dr. Savannah Kinney MD Referring Provider Active Start: January 17, 2025 Dr. Savannah Kinney MD Other Provider Active Start: January 17, 2025 Team Status: Inactive Member Role/Relationship Status Dates Kassie Polanco LAW ENFORCEMENT DIRECTOR, LAW ENFORCEMENT DIRECTOR-C Primary Care Provider Active Start: January 22, 2025 End: January 22, 2025 Kassie Polanco LAW ENFORCEMENT DIRECTOR, LAW ENFORCEMENT DIRECTOR-C Referring Provider Active Start: January 22, 2025 End: January 22, 2025 Dr. Mario Rai DO Attending Provider Active Start: January 22, 2025 End: January 22, 2025 Team Status: Active Member Role/Relationship Status Dates Kassie Polanco LAW ENFORCEMENT DIRECTOR, LAW ENFORCEMENT DIRECTOR-C Primary Care Provider Active Start: January 22, 2025 Kassie Polanco LAW ENFORCEMENT DIRECTOR, LAW ENFORCEMENT DIRECTOR-C Referring Provider Active Start: January 22, 2025 Dr. Mario Rai DO Attending Provider Active Start: January 22, 2025 Dr. Mario Rai DO Other Provider Active St art: January 22, 2025 Team Status: Inactive Member Role/Relationship Status Dates Kassie Polanco LAW ENFORCEMENT DIRECTOR, LAW ENFORCEMENT DIRECTOR-C Primary Care Provider Active Start: January 15, 2025 End: January 15, 2025 Dr. Enzo Hernandez MD Attending Provider Active Start: January 15, 2025 End: January 15, 2025 Dr. Enzo Hernandez MD Referring Provider Active Start: January 15, 2025 End: January 15, 2025 Team Status: Active Member Role/Relationship Status Dates Kassie Polanco NP, LAW ENFORCEMENT DIRECTOR-C Primary Care Provider Active Start: January 17, 2025 Dr. Savannah Kinney MD Attending Provider Active Start: January 17, 2025 Dr. Savannah Kinney MD Referring Provider Active Start: January 17, 2025 Dr. Savannah Kinney MD Other Provider Active Start: January 17, 2025 Team Status: Inactive Member Role/Relationship Status Dates Kassie Polanco LAW ENFORCEMENT DIRECTOR, LAW ENFORCEMENT DIRECTOR-C Primary Care Provider Active Start: January 22, 2025 End: January 22, 2025 Kassie Polanco LAW ENFORCEMENT DIRECTOR, LAW ENFORCEMENT DIRECTOR-C Referring Provider Active Start: January 22, 2025 End: January 22, 2025 Dr. Mario Rai DO Attending Provider Active Start: January 22, 2025 End: January 22, 2025 Team Status: Active Member Role/Relationship Status Dates Kassie Polanco LAW ENFORCEMENT DIRECTOR, LAW ENFORCEMENT DIRECTOR-C Primary Care Provider Active Start: January 22, 2025 Kassie Polanco LAW ENFORCEMENT DIRECTOR, LAW ENFORCEMENT DIRECTOR-C Referring Provider Active Start: January 22, 2025 Dr. Mario Rai DO Attending Provider Active Start: January 22, 2025 Dr. Mario Rai DO Other Provider Active St art: January 22, 2025 Team Status: Active Member Role/Relationship Status Dates Kassie Polacno NP, LAW ENFORCEMENT DIRECTOR-C Primary Care Provider Active Start: January 24, 2025 Dr. Savannah Kinney MD Attending Provider Active Start: January 24, 2025 Dr. Savannah Kinney MD Referring Provider Active Start: January 24, 2025 Team Status: Active Member Role/Relationship Status Dates Kassie Polanco LAW ENFORCEMENT DIRECTOR, LAW ENFORCEMENT DIRECTOR-C Primary Care Provider Active Start: January 24, 2025 Dr. Savannah Kinney MD Attending Provider Active Start: January 24, 2025 Dr. Savannah Kinney MD Referring Provider Active Start: January 24, 2025 Dr. Savannah Kinney MD Other Provider Active Start: January 24, 2025 Team Status: Inactive Member Role/Relationship Status Dates Kassie Polanco LAW ENFORCEMENT DIRECTOR, LAW ENFORCEMENT DIRECTOR-C Primary Care Provider Active Start: January 30, 2025 End: January 30, 2025 Kassie Polanco LAW ENFORCEMENT DIRECTOR, LAW ENFORCEMENT DIRECTOR-C Referring Provider Active Start: January 30, 2025 End: January 30, 2025 Shell Brewer NP-C Attending Provider Active Start: January 30, 2025 End: January 30, 2025 Team Status: Active Member Role/Relationship Status Dates Kassie Polanco NP, LAW ENFORCEMENT DIRECTOR-C Primary Care Provider Active Start: January 24, 2025 Dr. Savannah Kinney MD Attending Provider Active Start: January 24, 2025 Dr. Savannah Kinney MD Referring Provider Active Start: January 24, 2025 Dr. Savannah Kinney MD Other Provider Active Start: January 24, 2025 Team Status: Inactive Member Role/Relationship Status Dates Kassie Polanco LAW ENFORCEMENT DIRECTOR, LAW ENFORCEMENT DIRECTOR-C Primary Care Provider Active Start: January 30, 2025 End: January 30, 2025 Kassie Polanco LAW ENFORCEMENT DIRECTOR, LAW ENFORCEMENT DIRECTOR-C Referring Provider Active Start: January 30, 2025 End: January 30, 2025 Shell Brewer NP-C Attending Provider Active Start: January 30, 2025 End: January 30, 2025 Team Status: Inactive Member Role/Relationship Status Dates Kassie Polanco NP, LAW ENFORCEMENT DIRECTOR-C Primary Care Provider Active Start: January 31, 2025 End: February 03, 2025 Dr. Savannah Kinney MD Attending Provider Active Start: January 31, 2025 End: February 03, 2025 Dr. Savannah Kinney MD Referring Provider Active Start: January 31, 2025 End: February 03, 2025 Team Status: Active Member Role/Relationship Status Dates Kassie Polanco LAW ENFORCEMENT DIRECTOR, LAW ENFORCEMENT DIRECTOR-C Primary Care Provider Active Start: January 31, 2025 Dr. Savannah Kinney MD Attending Provider Active Start: January 31, 2025 Dr. Savannah Kinney MD Referring Provider Active Start: January 31, 2025 Dr. Savannah Kinney MD Other Provider Active Start: January 31, 2025 Team Status: Active Member Role/Relationship Status Dates Kassie Polanco LAW ENFORCEMENT DIRECTOR, LAW ENFORCEMENT DIRECTOR-C Primary care physician Active Team Status: Active Member Role/Relationship Status Dates Kassie Polanco LAW ENFORCEMENT DIRECTOR, LAW ENFORCEMENT DIRECTOR-C Primary care physician Active Start: November 22, 2024 Dr. Savannah Kinney MD Attending physician Active Start: November 22, 2024 Dr. Savannah Kinney MD Nurse Practitioner Active Start: November 22, 2024 No Primary Care Physician Referring Provider Active Start: November 22, 2024 Team Status: Inactive Member Role/Relationship Status Dates Kassie Polanco LAW ENFORCEMENT DIRECTOR, LAW ENFORCEMENT DIRECTOR-C Primary care physician Active Start: November 29, 2024 End: December 03, 2024 Dr. Savannah Kinney MD Attending physician Active Start: November 29, 2024 End: December 03, 2024 No Primary Care Physician Referring Provider Active Start: November 29, 2024 End: December 03, 2024 Team Status: Active Member Role/Relationship Status Dates Kassie Polanco NP, LAW ENFORCEMENT DIRECTOR-C Primary care physician Active Start: November 29, 2024 Dr. Savannah Kinney MD Nurse Practitioner Active Start: November 29, 2024 No Primary Care Physician Referring Provider Active Start: November 29, 2024 Dr. Brett Vincent MD Attending physician Active Start: November 29, 2024 Team Status: Active Member Role/Relationship Status Dates Kassie Polanco NP, LAW ENFORCEMENT DIRECTOR-C Primary care physician Active Start: December 06, 2024 Dr. Savannah Kinney MD Attending physician Active Start: December 06, 2024 Dr. Savannah Kinney MD Nurse Practitioner Active Start: December 06, 2024 No Primary Care Physician Referring Provider Active Start: December 06, 2024 Team Status: Inactive Member Role/Relationship Status Dates Kassie Polanco LAW ENFORCEMENT DIRECTOR, LAW ENFORCEMENT DIRECTOR-C Primary care physician Active Start: December 13, 2024 End: December 13, 2024 Dr. Savannah Kinney MD Attending physician Active Start: December 13, 2024 End: December 13, 2024 No Primary Care Physician Referring Provider Active Start: December 13, 2024 End: December 13, 2024 Team Status: Active Member Role/Relationship Status Dates Kassie Polanco NP, LAW ENFORCEMENT DIRECTOR-C Primary care physician Active Start: December 13, 2024 Dr. Savannah Kinney MD Attending physician Active Start: December 13, 2024 Dr. Savannah Kinney MD Nurse Practitioner Active Start: December 13, 2024 No Primary Care Physician Referring Provider Active Start: December 13, 2024 Team Status: Inactive Member Role/Relationship Status Dates Kassie Polanco NP, LAW ENFORCEMENT DIRECTOR-C Primary care physician Active Start: January 03, 2025 End: January 03, 2025 Dr. Savannah Kinney MD Attending physician Active Start: January 03, 2025 End: January 03, 2025 Dr. Savannah Kinney MD Referring Provider Active Start: January 03, 2025 End: January 03, 2025 Team Status: Active Member Role/Relationship Status Dates Kassie Polanco NP, LAW ENFORCEMENT DIRECTOR-C Primary care physician Active Start: January 03, 2025 Dr. Savannah Kinney MD Attending physician Active Start: January 03, 2025 Dr. Savannah Kinney MD Referring Provider Active Start: January 03, 2025 Dr. Savannah Kinney MD Nurse Practitioner Active Start: January 03, 2025 Team Status: Active Member Role/Relationship Status Dates Kassie Polanco NP, LAW ENFORCEMENT DIRECTOR-C Primary care physician Active Start: January 10, 2025 Dr. Savannah Kinney MD Attending physician Active Start: January 10, 2025 Dr. Savannah Kinney MD Referring Provider Active Start: January 10, 2025 Dr. Savannah Kinney MD Nurse Practitioner Active Start: January 10, 2025 Team Status: Inactive Member Role/Relationship Status Dates Kassie Polanco LAW ENFORCEMENT DIRECTOR, LAW ENFORCEMENT DIRECTOR-C Primary care physician Active Start: January 15, 2025 End: January 15, 2025 Dr. Enzo Hernandez MD Attending physician Active Start: January 15, 2025 End: January 15, 2025 Dr. Enzo Hernandez MD Referring Provider Active Start: January 15, 2025 End: January 15, 2025 Team Status: Active Member Role/Relationship Status Dates Kassie Polanco LAW ENFORCEMENT DIRECTOR, LAW ENFORCEMENT DIRECTOR-C Primary care physician Active Start: January 17, 2025 Dr. Savannah Kinney MD Attending physician Active Start: January 17, 2025 Dr. Savannah Kinney MD Referring Provider Active Start: January 17, 2025 Dr. Savannah Kinney MD Nurse Practitioner Active Start: January 17, 2025 Team Status: Inactive Member Role/Relationship Status Dates Kassie Polanco LAW ENFORCEMENT DIRECTOR, LAW ENFORCEMENT DIRECTOR-C Primary care physician Active Start: January 22, 2025 End: January 22, 2025 Kassie Polanco LAW ENFORCEMENT DIRECTOR, LAW ENFORCEMENT DIRECTOR-C Referring Provider Active Start: January 22, 2025 End: January 22, 2025 Dr. Mario Rai DO Attending physician Active Start: January 22, 2025 End: January 22, 2025 Team Status: Active Member Role/Relationship Status Dates Kassie Polanco LAW ENFORCEMENT DIRECTOR, LAW ENFORCEMENT DIRECTOR-C Primary care physician Active Start: January 22, 2025 Kassie Polanco LAW ENFORCEMENT DIRECTOR, LAW ENFORCEMENT DIRECTOR-C Referring Provider Active Start: January 22, 2025 Dr. Mario Rai DO Attending physician Active Start: January 22, 2025 Dr. Mario Rai DO Nurse Practitioner Active Start: January 22, 2025 Team Status: Active Member Role/Relationship Status Dates Kassie Polanco NP, LAW ENFORCEMENT DIRECTOR-C Primary care physician Active Start: January 24, 2025 Dr. Savannah Kinney MD Attending physician Active Start: January 24, 2025 Dr. Savannah Kinney MD Referring Provider Active Start: January 24, 2025 Dr. Savannah Kinney MD Nurse Practitioner Active Start: January 24, 2025 Team Status: Inactive Member Role/Relationship Status Dates Kassie Sherri LAW ENFORCEMENT DIRECTOR, LAW ENFORCEMENT DIRECTOR-C Primary care physician Active Start: January 30, 2025 End: January 30, 2025 Kassie Polanco LAW ENFORCEMENT DIRECTOR, LAW ENFORCEMENT DIRECTOR-C Referring Provider Active Start: January 30, 2025 End: January 30, 2025 Shell Brewer LAW ENFORCEMENT DIRECTOR-C Attending physician Active Start: January 30, 2025 End: January 30, 2025 Team Status: Inactive Member Role/Relationship Status Dates Kassie Polanco NP, LAW ENFORCEMENT DIRECTOR-C Primary care physician Active Start: January 31, 2025 End: February 03, 2025 Dr. Savannah Kinney MD Attending physician Active Start: January 31, 2025 End: February 03, 2025 Dr. Savannah Kinney MD Referring Provider Active Start: January 31, 2025 End: February 03, 2025 Team Status: Active Member Role/Relationship Status Dates Kassie Polanco LAW ENFORCEMENT DIRECTOR, LAW ENFORCEMENT DIRECTOR-C Primary care physician Active Start: January 31, 2025 Dr. Savannah Kinney MD Attending physician Active Start: January 31, 2025 Dr. Savannah Kinney MD Referring Provider Active Start: January 31, 2025 Dr. Savannah Kinney MD Nurse Practitioner Active Start: January 31, 2025 Team Status: Active Member Role/Relationship Status Dates Kassie Polanco NP, LAW ENFORCEMENT DIRECTOR-C Primary care physician Active Start: February 07, 2025 Dr. Savannah Kinney MD Attending physician Active Start: February 07, 2025 Dr. Savannah Kinney MD Referring Provider Active Start: February 07, 2025 Dr. Savannah Kinney MD Nurse Practitioner Active Start: February 07, 2025 Team Status: Active Member Role/Relationship Status Dates Kassie Polanco NP, LAW ENFORCEMENT DIRECTOR-C Primary care physician Active Start: February 14, 2025 Dr. Savannah Kinney MD Attending physician Active Start: February 14, 2025 Dr. Savannah Kinney MD Referring Provider Active Start: February 14, 2025 Dr. Savannah Kinney MD Nurse Practitioner Active Start: February 14, 2025 Team Status: Inactive Member Role/Relationship Status Dates Kassie Polanco LAW ENFORCEMENT DIRECTOR, LAW ENFORCEMENT DIRECTOR-C Primary care physician Active Start: February 21, 2025 End: March 05, 2025 Dr. Savannah Kinney MD Attending physician Active Start: February 21, 2025 End: March 05, 2025 Dr. Savannah Kinney MD Referring Provider Active Start: February 21, 2025 End: March 05, 2025 Team Status: Active Member Role/Relationship Status Dates Kassie Polanco NP, LAW ENFORCEMENT DIRECTOR-C Primary care physician Active Start: February 21, 2025 Dr. Savannah Kinney MD Attending physician Active Start: February 21, 2025 Dr. Savannah Kinney MD Referring Provider Active Start: February 21, 2025 Dr. Savannah Kinney MD Nurse Practitioner Active Start: February 21, 2025 Team Status: Active Member Role/Relationship Status Dates Kassie Polanco LAW ENFORCEMENT DIRECTOR, LAW ENFORCEMENT DIRECTOR-C Primary care physician Active Start: December 06, 2024 Dr. Savannah Kinney MD Attending physician Active Start: December 06, 2024 Dr. Savannah Kinney MD Nurse Practitioner Active Start: December 06, 2024 No Primary Care Physician Referring Provider Active Start: December 06, 2024 Team Status: Inactive Member Role/Relationship Status Dates Kassie Polanco NP, LAW ENFORCEMENT DIRECTOR-C Primary care physician Active Start: December 13, 2024 End: December 13, 2024 Dr. Savannah Kinney MD Attending physician Active Start: December 13, 2024 End: December 13, 2024 No Primary Care Physician Referring Provider Active Start: December 13, 2024 End: December 13, 2024 Team Status: Active Member Role/Relationship Status Dates Kassie Polanco NP, LAW ENFORCEMENT DIRECTOR-C Primary care physician Active Start: December 13, 2024 Dr. Savannah Kinney MD Attending physician Active Start: December 13, 2024 Dr. Savannah Kinney MD Nurse Practitioner Active Start: December 13, 2024 No Primary Care Physician Referring Provider Active Start: December 13, 2024 Team Status: Inactive Member Role/Relationship Status Dates Kassie Polanco LAW ENFORCEMENT DIRECTOR, LAW ENFORCEMENT DIRECTOR-C Primary care physician Active Start: January 03, 2025 End: January 03, 2025 Dr. Savannah Kinney MD Attending physician Active Start: January 03, 2025 End: January 03, 2025 Dr. Savannah Kinney MD Referring Provider Active Start: January 03, 2025 End: January 03, 2025 Team Status: Active Member Role/Relationship Status Dates Kassie Polanco LAW ENFORCEMENT DIRECTOR, LAW ENFORCEMENT DIRECTOR-C Primary care physician Active Start: January 03, 2025 Dr. Savannah Kinney MD Attending physician Active Start: January 03, 2025 Dr. Savannah Kinney MD Referring Provider Active Start: January 03, 2025 Dr. Savannah Kinney MD Nurse Practitioner Active Start: January 03, 2025 Team Status: Active Member Role/Relationship Status Dates Kassie Polanco NP, LAW ENFORCEMENT DIRECTOR-C Primary care physician Active Start: January 10, 2025 Dr. Savannah Kinney MD Attending physician Active Start: January 10, 2025 Dr. Savannah Kinney MD Referring Provider Active Start: January 10, 2025 Dr. Savannah Kinney MD Nurse Practitioner Active Start: January 10, 2025 Team Status: Inactive Member Role/Relationship Status Dates Kassie Polanco NP, LAW ENFORCEMENT DIRECTOR-C Primary care physician Active Start: January 15, 2025 End: January 15, 2025 Dr. Enzo Hernandez MD Attending physician Active Start: January 15, 2025 End: January 15, 2025 Dr. Enzo Hernandez MD Referring Provider Active Start: January 15, 2025 End: January 15, 2025 Team Status: Active Member Role/Relationship Status Dates Kassie Polanco NP, LAW ENFORCEMENT DIRECTOR-C Primary care physician Active Start: January 17, 2025 Dr. Savannah Kinney MD Attending physician Active Start: January 17, 2025 Dr. Savannah Kinney MD Referring Provider Active Start: January 17, 2025 Dr. Savannah Kinney MD Nurse Practitioner Active Start: January 17, 2025 Team Status: Inactive Member Role/Relationship Status Dates Kassie Polanco LAW ENFORCEMENT DIRECTOR, LAW ENFORCEMENT DIRECTOR-C Primary care physician Active Start: January 22, 2025 End: January 22, 2025 Kassie Polanco LAW ENFORCEMENT DIRECTOR, LAW ENFORCEMENT DIRECTOR-C Referring Provider Active Start: January 22, 2025 End: January 22, 2025 Dr. Mario Rai DO Attending physician Active Start: January 22, 2025 End: January 22, 2025 Team Status: Active Member Role/Relationship Status Dates Kassie Polanco LAW ENFORCEMENT DIRECTOR, LAW ENFORCEMENT DIRECTOR-C Primary care physician Active Start: January 22, 2025 Kassie Polanco LAW ENFORCEMENT DIRECTOR, LAW ENFORCEMENT DIRECTOR-C Referring Provider Active Start: January 22, 2025 Dr. Mario Rai DO Attending physician Active Start: January 22, 2025 Dr. Mario Rai DO Nurse Practitioner Active Start: January 22, 2025 Team Status: Active Member Role/Relationship Status Dates Kassie Polanco NP, LAW ENFORCEMENT DIRECTOR-C Primary care physician Active Start: January 24, 2025 Dr. Savannah Kinney MD Attending physician Active Start: January 24, 2025 Dr. Savannah Kinney MD Referring Provider Active Start: January 24, 2025 Dr. Savannah Kinney MD Nurse Practitioner Active Start: January 24, 2025 Team Status: Inactive Member Role/Relationship Status Dates Kassie Polanco LAW ENFORCEMENT DIRECTOR, LAW ENFORCEMENT DIRECTOR-C Primary care physician Active Start: January 30, 2025 End: January 30, 2025 Kassie Polanco LAW ENFORCEMENT DIRECTOR, LAW ENFORCEMENT DIRECTOR-C Referring Provider Active Start: January 30, 2025 End: January 30, 2025 Shell Brewer NP-C Attending physician Active Start: January 30, 2025 End: January 30, 2025 Team Status: Inactive Member Role/Relationship Status Dates Kassie Polanco NP, LAW ENFORCEMENT DIRECTOR-C Primary care physician Active Start: January 31, 2025 End: February 03, 2025 Dr. Savannah Kinney MD Attending physician Active Start: January 31, 2025 End: February 03, 2025 Dr. Savannah Kinney MD Referring Provider Active Start: January 31, 2025 End: February 03, 2025 Team Status: Active Member Role/Relationship Status Dates Kassie Polanco NP, LAW ENFORCEMENT DIRECTOR-C Primary care physician Active Start: January 31, 2025 Dr. Savannah Kinney MD Attending physician Active Start: January 31, 2025 Dr. Savannah Kinney MD Referring Provider Active Start: January 31, 2025 Dr. Savannah Kinney MD Nurse Practitioner Active Start: January 31, 2025 Team Status: Active Member Role/Relationship Status Dates Kassie Polanco NP, LAW ENFORCEMENT DIRECTOR-C Primary care physician Active Start: February 07, 2025 Dr. Savannah Kinney MD Attending physician Active Start: February 07, 2025 Dr. Savannah Kinney MD Referring Provider Active Start: February 07, 2025 Dr. Savannah Kinney MD Nurse Practitioner Active Start: February 07, 2025 Team Status: Active Member Role/Relationship Status Dates Kassie Polanco LAW ENFORCEMENT DIRECTOR, LAW ENFORCEMENT DIRECTOR-C Primary care physician Active Start: February 14, 2025 Dr. Savannah Kinney MD Attending physician Active Start: February 14, 2025 Dr. Savannah Kinney MD Referring Provider Active Start: February 14, 2025 Dr. Savannah Kinney MD Nurse Practitioner Active Start: February 14, 2025 Team Status: Inactive Member Role/Relationship Status Dates Kassie Polanco NP, LAW ENFORCEMENT DIRECTOR-C Primary care physician Active Start: February 21, 2025 End: March 05, 2025 Dr. Savannah Kinney MD Attending physician Active Start: February 21, 2025 End: March 05, 2025 Dr. Savannah Kinney MD Referring Provider Active Start: February 21, 2025 End: March 05, 2025 Team Status: Active Member Role/Relationship Status Dates Kassie Polanco NP, LAW ENFORCEMENT DIRECTOR-C Primary care physician Active Start: February 21, 2025 Dr. Savannah Kinney MD Attending physician Active Start: February 21, 2025 Dr. Savannah Kinney MD Referring Provider Active Start: February 21, 2025 Dr. Savannah Kinney MD Nurse Practitioner Active Start: February 21, 2025 Team Status: Inactive Member Role/Relationship Status Dates Kassie Polanco LAW ENFORCEMENT DIRECTOR, LAW ENFORCEMENT DIRECTOR-C Primary care physician Active Start: March 07, 2025 End: March 18, 2025 Dr. Savannah Kinney MD Attending physician Active Start: March 07, 2025 End: March 18, 2025 Dr. Savannah Kinney MD Referring Provider Active Start: March 07, 2025 End: March 18, 2025 Team Status: Active Member Role/Relationship Status Dates Kassie Polanco NP, LAW ENFORCEMENT DIRECTOR-C Primary care physician Active Start: March 07, 2025 Dr. Savannah Kinney MD Attending physician Active Start: March 07, 2025 Dr. Savannah Kinney MD Referring Provider Active Start: March 07, 2025 Dr. Savannah Kinney MD Nurse Practitioner Active Start: March 07, 2025 Team Status: Active Member Role/Relationship Status Dates Kassie Polanco NP, LAW ENFORCEMENT DIRECTOR-C Primary care physician Active Start: March 28, 2025 Dr. Savannah Kinney MD Attending physician Active Start: March 28, 2025 Dr. Savannah Kinney MD Referring Provider Active Start: March 28, 2025 Team Status: Active Member Role/Relationship Status Dates Kassie Polanco NP, LAW ENFORCEMENT DIRECTOR-C Primary care physician Active Start: March 28, [...] or prosecute any alcohol or drug abuse patient.[facility] Center[facility] the event this information is protected by the Federal Confidentiality of Alcohol and Drug Abuse Patient Records regulations: The Federal rules restrict any use of the information to criminally investigate or prosecute any alcohol or drug abuse patient.[facility] Reason for Visit (unrecogniz ed section and [...] BE BASED ON THE PRIMARY CLINICAL RECORDS. [facility] [employer] [facility]. provides no warranty or guarantee of the accuracy or completeness of information in this document.
--- NOTE | 2025-05-24 02:53 | NURSING ---
Addendum entered by Christina Roman Read 05/24/25 02:58: speech consult placed by primary nurse to ensure pt. receives correct consistency/ further eval. Original Note: per pt.'s caregiver, pt.'s diet @ home is minced meats/ tougher foods,foods cut into bite size pieces,Regular liquids; and 1:1 supervision. Pt. has seen speech multiple times outpt. for choking/ coughing on food d/t fast rate of eating.
[2025-05-24 04:40] LABS: Hematocrit 34.4 % (37-47); Hemoglobin 10.7 g/dL (12.0-15.0); Immature Granulocytes Count 0.030 X10^3/uL (0.0-0.0); Mean Corp Hgb Conc 31.1 g/dL (32-36); Mean Corpuscular Volume 85.1 fL (81-99); Mean Platelet Vol. 9.1 fl (6.2-12.0); NRBC Flagged by Analyzer 0 % (0-5); Platelet Count 458 K/mm3 (150-450); RBC Distribution Width CV 16.9 % (11.6-14.6); RBC Distribution Width SD 52.8 fl (35.1-43.9); Red Blood Count 4.04 M/mm3 (4.2-5.4); White Blood Count 11.7 K/mm3 (4.4-11.0)
[2025-05-24 05:16] LABS: Anion Gap 11 (5-15); BUN 15 mg/dL (4-19); BUN/Creat Ratio 30.8 RATIO (10-20); Calcium,Total 8.7 mg/dL (7.6-11.0); Carbon Dioxide 21.8 mmol/L (21.0-32.0); Chloride 102 mmol/L (98-108); Estimated Creatinine Clearance 111.22 ml/min (50-250); Glucose 82 mg/dL (70-99); Potassium 4.2 mmol/L (3.3-5.1)
--- NOTE | 2025-05-24 07:41 | PCM.PN.HOSP ---
Subjective Subjective Patient is a 50-year-old lady with past medical history significant for spina bifida with suprapubic catheter who had been diagnosed with UTI a week prior to her admission. Was seen at an outside hospital discharged on Bactrim. Patient urine cultures however came back positive for Klebsiella pneumonia resistant to Bactrim. Patient was brought to the emergency department with worsening clinical condition and some intermittent confusion Objective Data Objective Data Vital Signs: Vital Signs Temp Pulse Resp BP Pulse Ox O2 Del Method 98.6 F 106 H 18 88/57 L 93 Room Air 05/24/25 06:14 05/24/25 06:14 05/24/25 06:14 05/24/25 06:14 05/24/25 06:14 05/24/25 06:14 Oxygen Delivery Method Room Air Weight: 62.6 kg Body Mass Index (BMI) 26.9 Intake & Output: Intake and Output for Last 24 Hours 05/22/25 05/23/25 05/24/25 23:59 23:59 23:59 Intake Total 50 / 50 1000 / 1000 Output Total 150 / 150 Balance 50 / 50 850 / 850 Lab / Micro Data 05/24/25 04:19 05/24/25 04:19 Labs: Laboratory Results - last 24 hr 05/23/25 22:50: WBC 13.5 H, RBC 4.74, Hgb 12.7, Hct 40.3, MCV 85.0, MCH 26.8 L, MCHC 31.5 L, RDW Std Deviation 52.1 H, RDW Coeff of Melodie 16.9 H, Plt Count 554 H, MPV 9.4, Immature Gran % (Auto) 0.400, Neut % (Auto) 67.6, Lymph % (Auto) 23.6, [place] % (Auto) 5.9, Eos % (Auto) 1.8, Baso % (Auto) 0.7, Absolute Neuts (auto) 9.1 H, Absolute Lymphs (auto) 3.18, Nucleated RBC % 0, PT 13.4, INR 1.0, APTT 29.3, Sodium 133, Potassium 4.4, Chloride 97 L, Carbon Dioxide 24.3, Anion Gap 13, BUN 17, Creatinine 0.65 L, Estim Creat Clear Calc 87.58, Est GFR (MDRD) Non-Af 107, BUN/Creatinine Ratio 26.2 H, Glucose 100 H, Lactic Acid < 1.0, Calcium 9.7, Total Bilirubin 0.16, AST 19, ALT 25, Alkaline Phosphatase 106 H, Total Protein 7.8, Albumin 4.1, Globulin 3.6, Albumin/Globulin Ratio 1.1 05/23/25 23:00: Urine Color Yellow, Urine Clarity Sl. Cloudy, Urine pH 6.0, Ur Specific Creola 1.020, Urine Protein 30 H, Urine Glucose (UA) Normal, Urine Ketones 15 H, Urine Occult Blood 25 H, Urine Nitrite Negative, Urine Bilirubin 1 H, Urine Urobilinogen 1 H, Ur Leukocyte Esterase 500 H, Urine RBC 0-5 SEEN, Urine WBC 10-25 SEEN, Ur Squamous Epith Cells 0-5 SEEN, Urine Bacteria 1+, Urine Mucus RARE 05/24/25 04:19: WBC 11.7 H, RBC 4.04 L, Hgb 10.7 L, Hct 34.4 L, MCV 85.1, MCH 26.5 L, MCHC 31.1 L, RDW Std Deviation 52.8 H, RDW Coeff of Melodie 16.9 H, Plt Count 458 H, MPV 9.1, Immature Gran % (Auto) 0.300, Neut % (Auto) 61.7, Lymph % (Auto) 28.3, Adair % (Auto) 6.0, Eos % (Auto) 2.9, Baso % (Auto) 0.8, Absolute Neuts (auto) 7.2, Absolute Lymphs (auto) 3.31, Nucleated RBC % 0, Sodium 134, Potassium 4.2, Chloride 102, Carbon Dioxide 21.8, Anion Gap 11, BUN 15, Creatinine 0.50 L, Estim Creat Clear Calc 111.22, Est GFR (MDRD) Non-Af 114, BUN/Creatinine Ratio 30.8 H, Glucose 82, Calcium 8.7 Radiography Diagnostic Testing: Radiology Impression Chest X-Ray 05/23/25 23:35 IMPRESSION: No Acute Findings. Reading Location: [facility] Physical Exam Narrative GENERAL: Patient appears comfortable at rest HEENT: Atraumatic; normocephalic EYES; Anicteric, Normal Conjunctiva NECK; supple, normal thyroid, RESPIRATORY: Diminished to auscultation CARDIOVASCULAR: Regular S1 S2, GI: soft, normoactive bowel sounds, : Suprapubic catheter in place EXTREMITIES: No edema, no clubbing, MUSCULOSKELETAL: no muscle wasting NEURO: Awake; no lateralizing signs. SKIN: No Rash PSYCH; Flat affect Assessment & Plan Assessment/Plan (1) Acute urinary tract infection: PLAN: Plan Patient is a 50-year-old lady with past medical history significant for spina bifida with suprapubic catheter who had been diagnosed with UTI a week prior to her admission. Was seen at an outside hospital discharged on Bactrim. Patient urine cultures however came back positive for Klebsiella pneumonia resistant to Bactrim. Patient was brought to the emergency department with worsening clinical condition and some intermittent confusion 1 sepsis secondary to acute complicated UTI with Klebsiella pneumonia UTI ? Secondary to presence of suprapubic catheter. Patient did fail outpatient treatment. Admitted to a regular nursing floor patient was started on ceftriaxone based on cultures.Repeat cultures sent 2. Acute metabolic encephalopathy ? Present on admission secondary to UTI management as discussed above 3. Suspected aspiration ? Patient was noted to have choked on her diet subsequently kept n.p.o. consult placed to therapy for speech and swallow eval 4. Hypertension ? Blood pressure controlled, home medications continued with dose adjustment as needed 5. Spina bifida ? With chronic wounds for which patient is seen at the wound care center consult was placed wound care nurse 6. GERD ? On PPI 7. Depression with anxiety ? Patient is on sertraline continue 8. Anemia ? Secondary to chronic disorder monitoring H&H and transfuse if patient becomes symptomatic or hemoglobin falls below 7 9. DVT prophylaxis ? Subcu Lovenox Charges/Coding Visit Charges Inpatient E&M: 76929 Subs Hosp L2
--- NOTE | 2025-05-24 09:41 | ST.MBS ---
Modified Barium Swallow Patient Information Study Date: 05/24/25 Study Time: 13:00 Direct Billable Minutes: 85 Total Minutes procedure & reportin Diagnosis: GERD K21.9; Spina bifida Q05.9 Referring Physician: Vineet Ibrahim Reason for Referral: Assess swallow function, assess risk for aspiration, and determine recommendations for least restrictive diet textures and compensatory strategies to improve swallowing safety. Medical History: The patient presented to [facility] ED 05/24/2025 for failure of outpatient treatment for a UTI. She went to an outside hospital on 05/20/2025 and was diagnosed with UTI and started on Bactrim. Pt medically worsened and there was concern for sepsis. Tachycardia at baseline. Pt admitted for further management. Per RN, pt is being monitored, but not septic at this time. ST consulted d/t hx of dysphagia and need for modified diet. BSE completed today w/ PET TRAINER and pt had a severe coughing episode on peaches, concerning for choking given pt had weak cough and was turning red in the face. PET TRAINER his staff assist button to alert help, but the patient was able to clear the bite w/ extensive coughing. BSE recommended puree textures / thin liquids and this MBSS to further assess swallow function and aspiration risk given an additional coughing episode (less severe) minutes after completion of all trials. MBSS completed at this facility 10/09/2021 revealing mild oropharyngeal phase dysphagia w/ recommendations for Soft and bite size textures (IDDSI Level 6) with Minced and moist meats (IDDSI Level 5), Thin Liquids...Compensatory Strategies: Small Bites - Clear oral cavity prior to taking each next bite, Small Sips - Consider use of Provale cup or sips by tsp if unable to reliably consume small sips with direct supervision and verbal cues, Slow Rate - Sips and bites one at a time, Sitting upright, Remain sitting upright for 30 minutes after PO intake, Assist with verbal cues to use recommended strategies; Supervision: 1:1 Close Supervision. Medical History Suprapubic catheter History of Clostridium difficile infection Anxiety Pressure ulcer Easy bruising Dietary restriction Difficulty chewing Heartburn Sleep apnea On home oxygen therapy Hypertension Decubitus ulcer of right buttock, stage 3 Decubitus ulcer of left buttock, stage 3 GI problem Seasonal allergies Wears glasses Depression Uses wheelchair History of urinary self-catheterization Back pain Constipation Gastric reflux Non-smoker BiPAP (biphasic positive airway pressure) dependence Asthma History of edema History of echocardiogram Hx of back injury Acquired scoliosis Spina bifida Current Diet Ordered: Puree / Thin Dentition: Natural Teeth and Missing Teeth Mental Status: Impaired (Difficulty following some commands during BSE, impulsivity w/ eating) Respiratory Status: Oxygenating on Room Air Penetration-Aspiration Scale Penetration-Aspiration Scale: OBJECTIVE ASSESSMENT OF SWALLOW FUNCTION (QUANTITATIVE ? PER TRIAL): PENETRATION / ASPIRATION SCALE (MORENO): 1 = does not enter airway 2 = enters airway/above vocal folds/ejected 3 = enters airway/above vocal folds/not ejected 4 = enters airway/contacts vocal folds/ejected 5 = enters airway/contacts vocal folds/not ejected 6 = enters airway/below vocal folds/ejected 7 = enters airway/below vocal folds/not ejected despite effort 8 = enters airway/below vocal folds/no effort VIDEOFLOROSCOPIC SCALE SCORE (MORENO): Grade I = aspiration of material that has penetrated into the laryngeal vestibule, intact cough reflex Grade II = aspiration < 10 % of the bolus, intact cough reflex Grade III = aspiration of < 10 % of the bolus, reduced cough reflex or aspiration of > 10 % of the bolus, intact cough reflex Grade IV = aspiration of > 10 % of the bolus, reduced cough reflex Penetration-Aspiration Scale Score Thin Liquid via teaspoon: Result: 2= enter airway/above vocal folds/ejected Thin Liquid via teaspoon Trial 2: Result: 2= enter airway/above vocal folds/ejected Thin Liquid via small single sip: cup: Result: 2= enter airway/above vocal folds/ejected Thin Liquid via single sip: straw: Result: 1= does not enter airway Thin Liquid via sequential sips:straw: Result: 7= enters airways/below vocal folds/not ejected despite effort Comment: Initially, PET TRAINER scored the patient for PAS of 1 during the swallow; however, pt had coughing episode following this trial. When the next trial was provided (pudding), pt had liquid barium residue in her trachea. Unknown if the patient aspirated during or after the swallow. View of trachea was limited throughout the evaluation d/t pt's body habitus. Pudding via teaspoon: Result: 1= does not enter airway Comment: Esophageal screen - Retention primarily in the middle and lower esophagus w/ retrograde flow. 1/4 Cookie coated in pudding: Result: 1= does not enter airway [place] Thick Liquid via small single sip: cup: Result: 1= does not enter airway Thin Liquid via single sip: straw Trial 2: Result: 2= enter airway/above vocal folds/ejected [place] Thick Liquid via single sip: straw: Result: 1= does not enter airway Comment: Esophageal screen - Retention in the middle and lower esophagus. [place] Thick Liquid via sequential sips:straw: Result: 2= enter airway/above vocal folds/ejected Comment: Esophageal screen - Retention in the middle and lower esophagus w/ retrograde flow to the upper esophagus. Thin Liquid via single sip: straw Trial 3: Result: 7= enters airways/below vocal folds/not ejected despite effort (Delayed throat clear) [place] Thick Liquid via single sip: straw Trial 2: Result: 1= does not enter airway [place] Thick Liquid via single sip: straw Trial 3: Result: 1= does not enter airway Thin Liquid via small single sip: cup Effortful swallow: Result: 1= does not enter airway Thin Liquid via small single sip: cup Effortful swallow Trial 2: Result: 1= does not enter airway Oral Phase Labial Seal: Escape progressing to mid-chin Tongue Control During Bolus Hold: Posterior escape of greater than half of bolus Bolus Preparation/Mastication: Slow prolonged chewing/mashing with complete recollection Bolus Transport/Lingual Motion: Repetitive/disorganized tongue motion Oral Residue: Residue collection on oral structures Pharyngeal Phase Initiation of Pharyngeal Swallow: Bolus head in pyriforms Soft Palate Elevation: Trace column of contrast/air between soft palate and pharyngeal wall Laryngeal Elevation: Partial superior movement thyroid cart/partial apprx aryt-epig petiole Anterior Hyoid Excursion: Partial anterior movement Epiglottic Movement: Complete inversion Laryngeal Vestibule Closure at Height of Swallow: Incomplete; narrow column of air/contrast in laryngeal vestibule Pharyngeal Stripping Wave: Present - complete Pharyngoesophageal Segment Opening: Complete distension and complete duration; no obstruction of flow Tongue Base Retraction: Narrow column of contrast between tongue base & post. pharyngeal wall Pharyngeal Residue: Collection of residue within or on pharyngeal structures Esophageal Phase Esophageal Clearance: Esophageal retention w/ retrograde flow below pharyngoesophageal seg. Diagnosis/Impression Diagnosis: Moderate oropharyngeal dysphagia R13.12; Esophageal dysphagia R13.14 MBS Impressions: The oral phase is primarily marked by... -Decreased bolus control w/ premature posterior loss of >1/2 of liquids to the pyriform sinuses prior to swallow onset. -Slowed, disorganized tongue motion for A-P transport. -Slowed, but complete mastication of 1/2 cookie. Piecemeal deglutition of cookie. -Mild oral residue. Pt not sensate of mild oral residue of cookie. The pharyngeal phase is primarily marked by... -Delayed swallow onset. -Decreased pharyngeal motility due to decreased mildly decreased TB retraction. Trace-mild pharyngeal residue. -Decreased airway closure during the swallow due to decreased anterior hyoid excursion and laryngeal elevation. Aspiration of thin liquids via sequential straw and single straw sip. Weak, delayed cough reflex for aspiration of sequential sips of thin liquids. Weak throat clear response for aspiration of single straw sip of thin liquids. The esophageal phase is primarily marked by... -Retention of pudding, cookie, and mildly thick liquids (sequential sips) in the middle and lower esophagus w/ retrograde flow of liquids to the upper esophagus. Recommendations Diet: Puree Textures and Mildly Thick Liquids Comment: Meds whole w/ mildly thick liquids, 1 at a time STOP meal if increased s/s of aspiration despite use of strategies below Compensatory Strategies: Small Bites, Small Sips, Slow Rate (BITES/SIPS 1 AT A TIME), Alternate bites/solids and sips/liquids (TAKE A SIP AFTER EVERY 1-2 BITES) and Sitting upright (DURING AND 30-60MIN AFTER MEAL) Supervision: 1:1 Direct Supervision (ALL FOOD AND DRINK, Family is ok to provide supervision if present) Recommend Repeat Modified Barium Swallow: Yes (3-5 weeks after participation in oral motor and oropharyngeal exercise program) Need for Skilled Speech Therapy Services: Yes Comment: -Train the patient, family, and staff in use of strategies to decrease risk for aspiration, reflux aspiration, and choking. -Ongoing assessment of diet tolerance of recommended textures. Monitor respiratory status closely. After GI intervention, recommend trials of minced and moist textures w/ PET TRAINER to consider diet advancement. Trials of thin liquids via cup w/ use of SMALL sips and effortful swallow w/ PET TRAINER only. Consider use of bolus control cup/straw. -Train the patient, family, and staff in a thorough oral care routine. -Train the patient in oral motor and oropharyngeal exercise program (lingual resistance and coordination exercises, lip press, effortful swallow, CTAR). Recommended Referrals: GI Consult (PET TRAINER informed Dr. Ibrahim via backline) Education Completed: 1. Described result of evaluation., 2. Pt understands evaluation & agrees with goals and treatment plan., 4. Family/caregivers understand evaluation & agree w/ goals & tx plan., 6. Family/caregivers demonstrate recommended strategies. (Mother verbalized good awareness of necessary aspiration and choking precautions) and 7. Pt requires further education on strategies & risks. Status Active ST Patient: Active Contact Information [facility] Speech Therapy:: Anitra Garcia M.A. [facility]-PET TRAINER Speech-Language Pathologist [facility] [address] [place] [address] [email or web address] [phone]
--- NOTE | 2025-05-24 10:20 | CASEMGMT ---
Social Work HUBERT called and spoke with the legal guardian Juliette who is the patients sister. Robyn reported the patient's home is not a skilled nursing but is owned by [employer]. Juliette lives in the house with 2 other people. Robyn and Mirella- mom live close by. She reported Juliette lives at this home by choice. A company called [employer] provides caregivers. HUBERT spoke with her about possible at [place]. Juliette reported they would HH if the patient needs nursing at [place]. CHRISTINE Jaquez
--- NOTE | 2025-05-24 11:20 | CASEMGMT ---
Social Work SW spoke with the sister Robyn who is legal guardian to complete the assessment. Admitting Dx: UTI Primary Care Doctor: Dr. Toure Speciality doctors: Dr. Abiola MCMANUS, Dr. Hernandez-urologist, neuro Insurance: Medicare and Medicaid Pharmacy: Patient utilizes [facility] in [place] Advanced directives: yes LNOK:. sister Robyn is legal guardian, [place] Living Situation: Robyn reported the patient's home is not a jail but is owned by [employer]. Juliette lives in the house with 2 other people. Robyn and Naif barrera live close by. She reported Juliette lives at this home by choice. A [employer] called [employer] provides caregivers 27/12. ADL's/Prior level of functioning: : Transportation: caregivers or family DME: [facility] correction/home health history: Mental Health: anxiety Substance abuse history: none Assessment: Robyn reported the patient's home is not a jail but is owned by [employer]. Juliette lives in the house with 2 other people. Robyn and Naif barrera live close by. She reported Juliette lives at this home by choice. A [employer] called [employer] provides caregivers 27/12. Juliette reported they would want HH if the patient needs nursing at [place]. PLAN: Juliette reported they would want HH if the patient needs nursing at [place]. CHRISTINE Jaquez
--- NOTE | 2025-05-24 12:35 | CASEMGMT ---
Discharge Planning A list of HH providers including quality and resource use data and consistent with the patient's preferred geographic region, medical needs, and insurance network was created in [employer] Guide.? This list was sent via email to pts sister/legal guardian ( .[place]asty[place]) Nahomy Weiner, Discharge Planning Asst.
[2025-05-24] MEDS: Budesonide Respules 0.5 MG/2 ML AMPUL.NEB. 0.25 MG INHALATION ×2 (14:09→22:22)
--- NOTE | 2025-05-24 15:21 | CASEMGMT ---
Social Work SW called the sister and LM asking for her choice for HH. HUBERT stated that HH would be for SN and CHRISTNIE Friedman
--- NOTE | 2025-05-24 15:34 | CASEMGMT ---
Social Work SW spoke with the mother in the patients room about DC with HH. SW explained SW emailed her a daughter the HH list. SW provided the mother a copy of HH list of?providers including quality and resource use data and consistent with the patient's preferred geographic region, medical needs, and insurance network was created in [employer] Guide.CHRISTINE Collins
--- NOTE | 2025-05-24 16:47 | CASEMGMT ---
Discharge Planning Pt sister/guardian chose [facility] as first HH choice. Call placed and they are unable to provide needed disciplines. Pt sister then asked for referrals to be sent to all. HH referral was sent to [facility], [facility], [facility], [facility], and [facility]. Referral not sent to [facility] d/t them being at capacity. Nahomy Weiner DC Planning Asst.
[2025-05-24] MEDS: 0.9% Saline Lock 10 ML Syringe IV (21:10)
[2025-05-25 05:17] VITALS: BP 136/95; PULSE 104; RESP 17; TEMP 36.1; O2SAT 95
[2025-05-25] MEDS: Budesonide Respules 0.5 MG/2 ML AMPUL.NEB. 0.25 MG INHALATION ×2 (07:33→21:10)
--- NOTE | 2025-05-25 07:40 | PCM.PN.HOSP ---
Subjective Subjective Patient urine cultures came back positive for ESBL Klebsiella pneumoniae sp pneum. Patient has been started on cefdinir on admission discontinue started on meropenem. Patient also underwent speech and swallow eval which revealed aspiration of thin liquid, esophageal retention with retrograde flow. Recommendation was made to consult general surgery consult placed the day before Objective Data Objective Data Vital Signs: Vital Signs Temp Pulse Resp BP Pulse Ox O2 Del Method O2 Flow Rate 97.0 F L 104 H 17 136/95 H 95 CPAP 2 05/25/25 05:17 05/25/25 05:17 05/25/25 05:17 05/25/25 05:17 05/25/25 05:17 05/25/25 05:17 05/25/25 05:17 Oxygen Flow Rate (L/min) 2 Oxygen Delivery Method CPAP Weight: 62.6 kg Body Mass Index (BMI) 26.9 Intake & Output: Intake and Output for Last 24 Hours 05/23/25 05/24/25 05/25/25 23:59 23:59 23:59 Intake Total 50 / 50 1240 / 1240 Output Total 675 / 675 1050 / 1050 Balance 50 / 50 565 / 565 -1050 / -1050 Lab / Micro Data 05/24/25 04:19 05/24/25 04:19 Micro: Microbiology 05/23/25 23:00 Urine Catheter - Catheter Urine Culture - Preliminary Klebsiella pneumoniae sp pneum Physical Exam Narrative GENERAL: Patient appears comfortable at rest HEENT: Atraumatic; normocephalic EYES; Anicteric, Normal Conjunctiva NECK; supple, normal thyroid, RESPIRATORY: Diminished to auscultation CARDIOVASCULAR: Regular S1 S2, GI: soft, normoactive bowel sounds, : Suprapubic catheter in place EXTREMITIES: No edema, no clubbing, MUSCULOSKELETAL: no muscle wasting NEURO: Awake; no lateralizing signs. SKIN: No Rash PSYCH; Flat affect Assessment & Plan Assessment/Plan (1) Acute urinary tract infection: PLAN: Plan Patient is a 50-year-old lady with past medical history significant for spina bifida with suprapubic catheter who had been diagnosed with UTI a week prior to her admission. Was seen at an outside hospital discharged on Bactrim. Patient urine cultures however came back positive for Klebsiella pneumonia resistant to Bactrim. Patient was brought to the emergency department with worsening clinical condition and some intermittent confusion 1. Sepsis secondary to acute complicated UTI with Klebsiella pneumonia UTI ? Secondary to presence of suprapubic catheter. Patient did fail outpatient treatment. Admitted to a regular nursing floor patient was started on ceftriaxone based on cultures.Repeat cultures sent ? 05/25/2025Patient urine cultures came back positive for ESBL Klebsiella pneumoniae sp pneum. Patient has been started on cefdinir on admission discontinue started on meropenem. 2. Acute metabolic encephalopathy ? Present on admission secondary to UTI management as discussed above 3. Suspected aspiration ? Patient was noted to have choked on her diet subsequently kept n.p.o. consult placed to therapy for speech and swallow eval ? 05/25/2025;Patient also underwent speech and swallow eval which revealed aspiration of thin liquid, esophageal retention with retrograde flow. Recommendation was made to consult general surgery consult placed the day before 4. Hypertension ? Blood pressure controlled, home medications continued with dose adjustment as needed 5. Spina bifida ? With chronic wounds for which patient is seen at the wound care center consult was placed wound care nurse 6. GERD ? On PPI 7. Depression with anxiety ? Patient is on sertraline continue 8. Anemia ? Secondary to chronic disorder monitoring H&H and transfuse if patient becomes symptomatic or hemoglobin falls below 7 9. DVT prophylaxis ? Subcu Lovenox Charges/Coding Visit Charges Inpatient E&M: 74072 Subs Hosp L2
[2025-05-25 07:48] VITALS: PULSE 106; RESP 18
[2025-05-25 09:01] VITALS: BP 111/97; PULSE 100; RESP 14; TEMP 36.9; O2SAT 96
[2025-05-25] MEDS: Lactobacillis Acidophilus 1 CAP PO (09:06)
[2025-05-25] MEDS: 0.9% Normal Saline (250mL Bag) 250 ML 15 ML IV (09:08)
[2025-05-25] MEDS: Psyllium 1 PACKET PO (09:08)
[2025-05-25] MEDS: 0.9% Saline Lock 10 ML Syringe IV (09:09)
[2025-05-25] MEDS: Meropenem 1 GM in 0.9% Normal Saline (100mL MB+) 100 ML IV ×3 (09:09→21:44)
--- NOTE | 2025-05-25 14:15 | CASEMGMT ---
Social Work Per physician, pt will need IV ATB once a day at discharge. Phone call to pts sister/legal guardian Robyn. Robyn states that the staff will not be able to administer IVATB, but Robyn is willing to come to pts home once a day to administer. Robyn also stating that pt's diet has been changed to puree with nectar thick liquids. Robyn confirms that pt's home can accommodate this diet restriction as long as physician orders are sent indicating needed diet. Robyn wants to make sure that pt gets both home health custodial and speech therapy. [facility] is unable to accept pt. [facility] and [facility] are able to provide SN but not Speech therapy. 4 home health agencies have not made determination of acceptance yet. Home antibiotics and home health will need to be set up prior to pt's discharge home, therefore pt cannot be discharged over the weekend. SW/RNCM will continue with discharge planning on Tuesday. Sister Robyn made aware of this. Physician updated. CHERYL White
[2025-05-25 15:39] VITALS: BP 117/83; PULSE 114; RESP 15; TEMP 36.7; O2SAT 97
[2025-05-25 21:00] VITALS: BP 94/66; PULSE 108; RESP 18; TEMP 36.6; O2SAT 96
[2025-05-25 21:10] VITALS: PULSE 109; RESP 22
[2025-05-26 03:15] VITALS: BP 122/80; PULSE 106; RESP 18; TEMP 36.9; O2SAT 94
[2025-05-26] MEDS: Meropenem 1 GM in 0.9% Normal Saline (100mL MB+) 100 ML IV ×3 (05:36→21:31)
[2025-05-26] MEDS: 0.9% Normal Saline (250mL Bag) 250 ML 15 ML IV (05:36)
[2025-05-26] MEDS: Budesonide Respules 0.5 MG/2 ML AMPUL.NEB. 0.25 MG INHALATION ×2 (07:38→20:38)
[2025-05-26 07:41] VITALS: PULSE 110; RESP 20
--- NOTE | 2025-05-26 08:52 | PCM.PN.HOSP ---
Subjective Subjective Patient seen had a relatively uneventful night. Midline was placed the day prior. Did discuss with case management plan is for patient to be discharged back to her retirement with IV antibiotics Objective Data Objective Data Vital Signs: Vital Signs Temp Pulse Resp BP Pulse Ox O2 Del Method O2 Flow Rate 98.4 F 110 H 20 H 122/80 H 94 Room Air 2 05/26/25 03:15 05/26/25 07:41 05/26/25 07:41 05/26/25 03:15 05/26/25 03:15 05/26/25 03:15 05/25/25 05:17 Oxygen Flow Rate (L/min) 2 Oxygen Delivery Method Room Air Weight: 62.6 kg Body Mass Index (BMI) 26.9 Intake & Output: Intake and Output for Last 24 Hours 05/24/25 05/25/25 05/26/25 23:59 23:59 23:59 Intake Total 1240 / 1240 980 / 980 86.60 / 86.60 Output Total 675 / 675 1900 / 2800 1150 / 1150 Balance 565 / 565 -920 / -1820 -1063.40 / -1063.40 Lab / Micro Data 05/24/25 04:19 05/24/25 04:19 Micro: Microbiology 05/23/25 23:00 Urine Catheter - Catheter Urine Culture - Final ESBL Klebsiella pneumoniae pne Physical Exam Narrative GENERAL: Patient appears comfortable at rest HEENT: Atraumatic; normocephalic EYES; Anicteric, Normal Conjunctiva NECK; supple, normal thyroid, RESPIRATORY: Diminished to auscultation CARDIOVASCULAR: Regular S1 S2, GI: soft, normoactive bowel sounds, : Suprapubic catheter in place EXTREMITIES: No edema, no clubbing, MUSCULOSKELETAL: no muscle wasting NEURO: Awake; no lateralizing signs. SKIN: No Rash PSYCH; Flat affect Assessment & Plan Assessment/Plan (1) Acute urinary tract infection: PLAN: Plan Patient is a 50-year-old lady with past medical history significant for spina bifida with suprapubic catheter who had been diagnosed with UTI a week prior to her admission. Was seen at an outside hospital discharged on Bactrim. Patient urine cultures however came back positive for Klebsiella pneumonia resistant to Bactrim. Patient was brought to the emergency department with worsening clinical condition and some intermittent confusion 1. Sepsis secondary to acute complicated UTI with Klebsiella pneumonia UTI ? Secondary to presence of suprapubic catheter. Patient did fail outpatient treatment. Admitted to a regular nursing floor patient was started on ceftriaxone based on cultures.Repeat cultures sent ? 05/25/2025Patient urine cultures came back positive for ESBL Klebsiella pneumoniae sp pneum. Patient has been started on cefdinir on admission discontinue started on meropenem. ? 05/26/2025; Midline was placed the day prior. Did discuss with case management plan is for patient to be discharged back to her retirement with IV antibiotics 2. Acute metabolic encephalopathy ? Present on admission secondary to UTI management as discussed above ? 05/26/2025; patient back to baseline 3. Suspected aspiration ? Patient was noted to have choked on her diet subsequently kept n.p.o. consult placed to therapy for speech and swallow eval ? 05/25/2025;Patient also underwent speech and swallow eval which revealed aspiration of thin liquid, esophageal retention with retrograde flow. Recommendation was made to consult general surgery consult placed the day before 4. Hypertension ? Blood pressure controlled, home medications continued with dose adjustment as needed 5. Spina bifida ? With chronic wounds for which patient is seen at the wound care center consult was placed wound care nurse 6. GERD ? On PPI 7. Depression with anxiety ? Patient is on sertraline continue 8. Anemia ? Secondary to chronic disorder monitoring H&H and transfuse if patient becomes symptomatic or hemoglobin falls below 7 9. Obstructive sleep apnea ? PAP therapy at night 10. DVT prophylaxis ? Subcu Lovenox Time spent in the patient's overall evaluation,decision-making process, review of diagnostic data, adjustment of management, discussion with other providers, nursing nursing and ancillary staff involved in patient's care documentation, 35 Minutes Charges/Coding Visit Charges Inpatient E&M: 14667 Subs Hosp L2
[2025-05-26 09:26] VITALS: BP 130/89; PULSE 109; RESP 14; TEMP 36.6; O2SAT 95
[2025-05-26] MEDS: Psyllium 1 PACKET PO (09:43)
[2025-05-26] MEDS: Lactobacillis Acidophilus 1 CAP PO (09:44)
[2025-05-26 15:05] VITALS: BP 99/56; PULSE 110; RESP 15; TEMP 36.8; O2SAT 97
--- NOTE | 2025-05-26 18:39 | CON.PCM.GI_ITS ---
HPI Consult Data Date of Consult: 05/26/25 HPI Narrative HPI Narrative: TOMMY DE LA TORRE, is a 50-year-old female with a history of frequent urinary tract infections and a suprapubic catheter presents to the hospital for failure of outpatient treatment for a UTI. Patient was diagnosed with a UTI on 05/20/2025 at an outside hospital and started on Bactrim. Symptoms persisted, leading to current admission. She was initially diagnosed with a UTI and started on Bactrim at an outside hospital on 05/20/2025. Her medical history is significant for a prior choking episode and a prescribed special diet (chopped food, small bites, alternating sips/swallows).? A speech and swallow evaluation was conducted on 05/25/2025. The evaluation revealed aspiration of thin liquids, esophageal retention with retrograde flow, and a history of significant past choking episodes. GI was consulted regarding the abnormal swallowing study.? * Aspiration Event: Patient was noted to have choked on her diet and subsequently kept NPO . * GI Symptoms: Consult was placed to GI regarding an abnormal swallowing study.? [facility] Medical History Suprapubic catheter History of Clostridium difficile infection Anxiety Pressure ulcer Easy bruising Dietary restriction Difficulty chewing Heartburn Sleep apnea On home oxygen therapy Hypertension Decubitus ulcer of right buttock, stage 3 Decubitus ulcer of left buttock, stage 3 GI problem Seasonal allergies Wears glasses Depression Uses wheelchair History of urinary self-catheterization Back pain Constipation Gastric reflux Non-smoker BiPAP (biphasic positive airway pressure) dependence Asthma History of edema History of echocardiogram Hx of back injury Acquired scoliosis Spina bifida Home Medications ?Medication ?Instructions ?Recorded ?Last Taken ?Type multivitamin with folic acid 400 1 tab PO QHS general health 04/24/13 05/24/25 History mcg tablet (Thera) omeprazole 20 mg capsule,delayed 20 mg PO QHS acid ref lux 03/11/18 05/24/25 History release aspirin 81 mg chewable tablet 81 mg PO DAILY@0800 10/0 02/2105/24/25 Rx polyethylene glycol 3350 17 gram 17 gm PO DAILY PRN WV N Constipation 09/14/20 01/22/25 History oral powder packet budesonide 0.25 mg/2 mL suspension 0.25 mg inhalation BID respiratory 10/28/21 05/24/25 History for nebulization loratadine 10 mg tablet 10 mg PO QDAY allergies 08/0405/24/25 History mupirocin calcium 2 % topical cream 1 applic topical B ID skin 08/21/24 05/24/25 History oxybutynin chloride 15 mg 5 mg PO TID BLADDER 08/21/24 05/24/25 History tablet,extended release 24 hr psyllium husk 0.52 gram capsule 0.52 g PO QDAY constip ation 08/21/24 05/24/25 History (Fiber Laxative (psyllium husk)) sertraline 50 mg tablet 50 mg PO QDAY antidepressant 08/21/24 05/24/25 History Bacillus coagulans 250 million 1 tab PO DAILY probioti c 01/22/25 05/24/25 History cell chewable tablet (Digestive Advantage Probiotic Gummy) lisinopril 20 mg tablet 20 mg PO DAILY BP 01/22/25 1 07/25/24 History bisacodyl 5 mg tablet,delayed 5 mg PO ONCE PRN constip ation #30 01/30/25 Unknown Rx release (Dulcolax (bisacodyl)) tabs lubiprostone 24 mcg capsule 24 mcg PO BID constipation 01/30/25 05/24/25 History potassium citrate 10 mEq (1,080 10 meq PO BID suppleme nt 05/23/25 05/24/25 History mg) tablet,extended release sulfamethoxazole 800 1 tab PO BID infection 05/2405/24/25 History mg-trimethoprim 160 mg tablet Allergy/AdvReac Type Severity Reaction Status Date / Time amoxicillin (From Augmentin) AdvReac Diarrhea Verified 05/23/25 20:47 azithromycin (From Zithromax AdvReac Diarrhea Verified 05/23/25 20:47 Z-Turner) ciprofloxacin (From Cipro) AdvReac Pain in Verified 05/23/25 20:47 joints clavulanic acid (From AdvReac Diarrhea Verified 05/23/25 20:47 Augmentin) Family History Other Hypertension Surgical History History of brain surgery History of incision and drainage Hx of eye surgery Hx of ileostomy History of brain shunt History of cystoscopy Hx of cholecystectomy Social History Smoking Status: Never smoker ROS Constitutional Constitutional: Denies fatigue, fever(s), poor appetite, weight gain or weight loss Gastrointestinal Gastrointestinal: Denies belching, bloating, change in bowel habits, change in stool character, chewing difficulty, coffee ground emesis, constipation, cramping, diarrhea, dyspepsia, dysphagia, early satiety, excessive flatus, fecal incontinence, heartburn, hematemesis, hematochezia, hemorrhoids, loose stools, melena, nausea, odynophagia, rectal bleeding, tenesmus, vomiting or weight changes Physical Exam Const alert, oriented x3, no apparent distress and healthy appearing General Appearance: cooperative GI normal to inspection, nondistended, normoactive bowel sounds, soft to palpation, non-tender and non-distended Percussion: normal to percussion Rectal Exam: deferred Lab / Micro Data 05/24/25 04:19 05/24/25 04:19 Micro: Microbiology 05/23/25 22:45 Blood Culture (Wb) - Right Hand Blood Culture - Preliminary No growth in 48 hours. 05/23/25 22:50 Blood Culture (Wb) - Right Forearm Blood Culture - Preliminary No growth in 48 hours. 05/23/25 23:00 Urine Catheter - Catheter Urine Culture - Final ESBL Klebsiella pneumoniae pne Assessment & Plan Assessment/Plan (1) Acute urinary tract infection: (2) GERD (gastroesophageal reflux disease): (3) Dysphagia: PLAN: The patient's current UTI is likely not improving due to the?Klebsiella? pathogen being resistant to the prescribed Bactrim. This represents a failure of appropriate antibiotic therapy.The patient has a significant swallowing disorder (dysphagia), confirmed by recent speech and swallow evaluation, with evidence of aspiration risk and esophageal dysfunction. This history and current presentation necessitate close monitoring of diet consistency and swallow precautions.? Plan * Infectious Disease (UTI): * As per primary team * Monitor clinical response to new antibiotic regimen, including vital signs and symptom improvement. * Gastroenterology (GI)/Swallowing Dysfunction: * RecommendNPO status at present due to aspiration risk.Esophageal gastric duodenoscopy with evaluation of the upper GI tract plus or minus manometry * Implement recommended diet modifications based on the speech and swallow evaluation findings once cleared for oral intake; likely requires thickened liquids and mechanically altered solids, with strict adherence to swallow precautions (small bites, slow pace, alternating sips/swallows). * Continue close collaboration with Speech Therapy for ongoing management and patient/family education on safe swallowing techniques.? * N.p.o. at midnight Charges/Coding Visit Charges Inpatient E&M: 96426 Init Hosp L3
--- NOTE | 2025-05-26 19:43 | NURSING ---
Patient's sister and mom refused to have test done for procedure
[2025-05-26 20:40] VITALS: PULSE 112; RESP 16; O2SAT 95
[2025-05-26 21:15] VITALS: BP 108/64; PULSE 110; RESP 18; TEMP 36.6; O2SAT 99
--- NOTE | 2025-05-26 23:25 | NURSING ---
Sister at bedside, RN was called to room for leaking suprapubic catheter. When RN entered the room the sister had already pulled the catheter and was putting another catheter in. RN tried to assist sister and help with patient care but was told she can do it herself and this RN can leave. RN updated charge nurse about sister showing signs of being upset. The charge nurse went in to talk with sister and was told again that she is fine and does not need our help. The charge nurse explained to the sister that we can help and are here if she needs anything.
[2025-05-27] VITALS (13 sets, daily range): BP systolic 106–126; BP diastolic 67–91; PULSE 103–111; RESP 14–18; TEMP 36.2–37.3; O2SAT 93–96; BMI 28.3
[2025-05-27 04:47] LABS: Hematocrit 36.1 % (37-47); Hemoglobin 11.3 g/dL (12.0-15.0); Immature Granulocytes Count 0.040 X10^3/uL (0.0-0.0); Mean Corp Hgb Conc 31.3 g/dL (32-36); Mean Corpuscular Volume 85.7 fL (81-99); Mean Platelet Vol. 9.3 fl (6.2-12.0); NRBC Flagged by Analyzer 0 % (0-5); Platelet Count 458 K/mm3 (150-450); RBC Distribution Width CV 17.1 % (11.6-14.6); RBC Distribution Width SD 52.9 fl (35.1-43.9); Red Blood Count 4.21 M/mm3 (4.2-5.4); White Blood Count 11.0 K/mm3 (4.4-11.0)
[2025-05-27 05:10] LABS: Anion Gap 13 (5-15); BUN 13 mg/dL (4-19); BUN/Creat Ratio 29.5 RATIO (10-20); Calcium,Total 9.3 mg/dL (7.6-11.0); Carbon Dioxide 25.4 mmol/L (21.0-32.0); Chloride 97 mmol/L (98-108); Estimated Creatinine Clearance 132.41 ml/min (50-250); Glucose 109 mg/dL (70-99); Magnesium 2.3 mg/dL (1.5-2.2); Potassium 4.3 mmol/L (3.3-5.1)
[2025-05-27] MEDS: Meropenem 1 GM in 0.9% Normal Saline (100mL MB+) 100 ML IV ×3 (05:37→21:43)
--- NOTE | 2025-05-27 07:07 | PCM.PN.HOSP ---
Subjective Subjective Patient seen plan is for patient to undergo modified barium swallow after which patient will be assessed for possible discharge Objective Data Objective Data Vital Signs: Vital Signs Temp Pulse Resp BP Pulse Ox O2 Del Method O2 Flow Rate 97.9 F 105 H 18 106/67 96 CPAP 2 05/27/25 03:40 05/27/25 03:40 05/27/25 03:40 05/27/25 03:40 05/27/25 03:40 05/27/25 03:40 05/26/25 21:00 Oxygen Flow Rate (L/min) 2 Oxygen Delivery Method CPAP Weight: 62.6 kg Body Mass Index (BMI) 26.9 Intake & Output: Intake and Output for Last 24 Hours 05/25/25 05/26/25 05/27/25 23:59 23:59 23:59 Intake Total 980 / 980 1006.60 / 1006.60 90.2 / 90.2 Output Total 1900 / 2800 1450 / 1450 500 / 500 Balance -920 / -1820 -443.40 / -443.40 -409.8 / -409.8 Lab / Micro Data 05/27/25 04:00 05/27/25 04:00 Labs: Laboratory Results - last 24 hr 05/27/25 04:00: WBC 11.0, RBC 4.21, Hgb 11.3 L, Hct 36.1 L, MCV 85.7, MCH 26.8 L, MCHC 31.3 L, RDW Std Deviation 52.9 H, RDW Coeff of Melodie 17.1 H, Plt Count 458 H, MPV 9.3, Immature Gran % (Auto) 0.400, Neut % (Auto) 57.6, Lymph % (Auto) 33.1, [place] % (Auto) 4.8, Eos % (Auto) 3.6, Baso % (Auto) 0.5, Absolute Neuts (auto) 6.3, Absolute Lymphs (auto) 3.62, Nucleated RBC % 0, Sodium 136, Potassium 4.3, Chloride 97 L, Carbon Dioxide 25.4, Anion Gap 13, BUN 13, Creatinine 0.42 L, Estim Creat Clear Calc 132.41, Est GFR (MDRD) Non-Af 119, BUN/Creatinine Ratio 29.5 H, Glucose 109 H, Calcium 9.3, Phosphorus 3.3, Magnesium 2.3 H Micro: Microbiology 05/23/25 22:45 Blood Culture (Wb) - Right Hand Blood Culture - Preliminary No growth in 48 hours. 05/23/25 22:50 Blood Culture (Wb) - Right Forearm Blood Culture - Preliminary No growth in 48 hours. 05/23/25 23:00 Urine Catheter - Catheter Urine Culture - Final ESBL Klebsiella pneumoniae pne Physical Exam Narrative GENERAL: Patient appears comfortable at rest HEENT: Atraumatic; normocephalic EYES; Anicteric, Normal Conjunctiva NECK; supple, normal thyroid, RESPIRATORY: Diminished to auscultation CARDIOVASCULAR: Regular S1 S2, GI: soft, normoactive bowel sounds, : Suprapubic catheter in place EXTREMITIES: No edema, no clubbing, MUSCULOSKELETAL: no muscle wasting NEURO: Awake; no lateralizing signs. SKIN: No Rash PSYCH; Flat affect Assessment & Plan Assessment/Plan (1) Acute urinary tract infection: PLAN: Plan Patient is a 50-year-old lady with past medical history significant for spina bifida with suprapubic catheter who had been diagnosed with UTI a week prior to her admission. Was seen at an outside hospital discharged on Bactrim. Patient urine cultures however came back positive for Klebsiella pneumonia resistant to Bactrim. Patient was brought to the emergency department with worsening clinical condition and some intermittent confusion 1. Sepsis secondary to acute complicated UTI with Klebsiella pneumonia UTI ? Secondary to presence of suprapubic catheter. Patient did fail outpatient treatment. Admitted to a regular nursing floor patient was started on ceftriaxone based on cultures.Repeat cultures sent ? 05/25/2025Patient urine cultures came back positive for ESBL Klebsiella pneumoniae sp pneum. Patient has been started on cefdinir on admission discontinue started on meropenem. ? 05/26/2025; Midline was placed the day prior. Did discuss with case management plan is for patient to be discharged [facility] to her [facility] with IV antibiotics 2. Acute metabolic encephalopathy ? Present on admission secondary to UTI management as discussed above ? 05/26/2025; patient back to baseline 3. Suspected aspiration ? Patient was noted to have choked on her diet subsequently kept n.p.o. consult placed to therapy for speech and swallow eval ? 05/25/2025;Patient also underwent speech and swallow eval which revealed aspiration of thin liquid, esophageal retention with retrograde flow. Recommendation was made to consult general surgery consult placed the day before ? Plan is for patient to undergo modified barium swallow after which patient will be assessed for possible 4. Hypertension ? Blood pressure controlled, home medications continued with dose adjustment as needed 5. Spina bifida ? With chronic wounds for which patient is seen at the wound care center consult was placed wound care nurse 6. GERD ? On PPI 7. Depression with anxiety ? Patient is on sertraline continue 8. Anemia ? Secondary to chronic disorder monitoring H&H and transfuse if patient becomes symptomatic or hemoglobin falls below 7 9. Obstructive sleep apnea ? PAP therapy at night 10. DVT prophylaxis ? Subcu Lovenox Time spent in the patient's overall evaluation,decision-making process, review of diagnostic data, adjustment of management, discussion with other providers, nursing nursing and ancillary staff involved in patient's care documentation, 35 Minutes
--- NOTE | 2025-05-27 08:43 | PCM.DC.SUM ---
Providers Date of Admission: 05/24/25 Date of Discharge: 05/27/25 Primary Care Physician: Kelsey Toure, ADAN Consultations 05/24/25 14:31 Consult: Gastroenterology Routine Consulting Provider: [facility] Reason for Consult: dysphagia EMERGENT Consult: No MD Notified: Yes Date Notified: 05/24/25 Time Notified: 14:31 Method of Notification: Text Reason For Visit: UTI Diagnosis Discharge Diagnosis (1) Acute urinary tract infection: Status: Acute Code(s): N39.0 - Urinary tract infection, site not specified Plan Patient is a 50-year-old lady with past medical history significant for spina bifida with suprapubic catheter who had been diagnosed with UTI a week prior to her admission. Was seen at an outside hospital discharged on Bactrim. Patient urine cultures however came back positive for Klebsiella pneumonia resistant to Bactrim. Patient was brought to the emergency department with worsening clinical condition and some intermittent confusion 1. Sepsis secondary to acute complicated UTI with Klebsiella pneumonia UTI ? Secondary to presence of suprapubic catheter. Patient did fail outpatient treatment. Admitted to a regular nursing floor patient was started on ceftriaxone based on cultures.Repeat cultures sent ? 05/25/2025Patient urine cultures came back positive for ESBL Klebsiella pneumoniae sp pneum. Patient has been started on cefdinir on admission discontinue started on meropenem. ? 05/26/2025; Midline was placed the day prior. Did discuss with case management plan is for patient to be discharged back to her snf with IV antibiotics 2. Acute metabolic encephalopathy ? Present on admission secondary to UTI management as discussed above ? 05/26/2025; patient back to baseline 3. Suspected aspiration ? Patient was noted to have choked on her diet subsequently kept n.p.o. consult placed to therapy for speech and swallow eval ? 05/25/2025;Patient also underwent speech and swallow eval which revealed aspiration of thin liquid, esophageal retention with retrograde flow. Recommendation was made to consult general surgery consult placed the day before ? Plan is for patient to undergo modified barium swallow after which patient will be assessed for possible 4. Hypertension ? Blood pressure controlled, home medications continued with dose adjustment as needed 5. Spina bifida ? With chronic wounds for which patient is seen at the wound care center consult was placed wound care nurse 6. GERD ? On PPI 7. Depression with anxiety ? Patient is on sertraline continue 8. Anemia ? Secondary to chronic disorder monitoring H&H and transfuse if patient becomes symptomatic or hemoglobin falls below 7 9. Obstructive sleep apnea ? PAP therapy at night 10. DVT prophylaxis ? Subcu Lovenox Time spent in the patient's overall evaluation,decision-making process, review of diagnostic data, adjustment of management, discussion with other providers, nursing nursing and ancillary staff involved in patient's care documentation, 35 Minutes Medications at Discharge Home Medications multivitamin with folic acid 400 mcg tablet (Thera) 1 tab PO QHS general health 04/24/13 omeprazole 20 mg capsule,delayed release 20 mg PO QHS acid reflux 03/11/18 aspirin 81 mg chewable tablet 81 mg PO DAILY@0800 03/14/18 polyethylene glycol 3350 17 gram oral powder packet 17 gm PO DAILY PRN PRN Constipation 09/14/20 budesonide 0.25 mg/2 mL suspension for nebulization 0.25 mg inhalation BID respiratory 10/28/21 loratadine 10 mg tablet 10 mg PO QDAY allergies 08/21/24 mupirocin calcium 2 % topical cream 1 applic topical BID skin 08/21/24 oxybutynin chloride 15 mg tablet,extended release 24 hr 5 mg PO TID BLADDER 08/21/24 psyllium husk 0.52 gram capsule (Fiber Laxative (psyllium husk)) 0.52 g PO QDAY constipation 08/21/24 sertraline 50 mg tablet 50 mg PO QDAY antidepressant 08/21/24 Bacillus coagulans 250 million cell chewable tablet (Digestive Advantage Probiotic Gummy) 1 tab PO DAILY probiotic 01/22/25 lisinopril 20 mg tablet 20 mg PO DAILY BP 01/22/25 bisacodyl 5 mg tablet,delayed release (Dulcolax (bisacodyl)) 5 mg PO ONCE PRN constipation #30 tabs 01/30/25 lubiprostone 24 mcg capsule 24 mcg PO BID constipation 01/30/25 potassium citrate 10 mEq (1,080 mg) tablet,extended release 10 meq PO BID supplement 05/23/25 ertapenem 1 gram solution for injection 1 g IV DAILY 10 days 05/27/25 Physical Exam Narrative GENERAL: Patient appears comfortable at rest HEENT: Atraumatic; normocephalic EYES; Anicteric, Normal Conjunctiva NECK; supple, normal thyroid, RESPIRATORY: Diminished to auscultation CARDIOVASCULAR: Regular S1 S2, GI: soft, normoactive bowel sounds, : Suprapubic catheter in place EXTREMITIES: No edema, no clubbing, MUSCULOSKELETAL: no muscle wasting NEURO: Awake; no lateralizing signs. SKIN: No Rash PSYCH; Flat affect Weight / BMI Weight Weight: 62.6 kg Body Mass Index (BMI) 26.9 ABG / Lab / Microbiology Data 05/27/25 04:00 05/27/25 04:00 Laboratory: Laboratory Results - last 24 hr 05/27/25 04:00: WBC 11.0, RBC 4.21, Hgb 11.3 L, Hct 36.1 L, MCV 85.7, MCH 26.8 L, MCHC 31.3 L, RDW Std Deviation 52.9 H, RDW Coeff of Melodie 17.1 H, Plt Count 458 H, MPV 9.3, Immature Gran % (Auto) 0.400, Neut % (Auto) 57.6, Lymph % (Auto) 33.1, Cross % (Auto) 4.8, Eos % (Auto) 3.6, Baso % (Auto) 0.5, Absolute Neuts (auto) 6.3, Absolute Lymphs (auto) 3.62, Nucleated RBC % 0, Sodium 136, Potassium 4.3, Chloride 97 L, Carbon Dioxide 25.4, Anion Gap 13, BUN 13, Creatinine 0.42 L, Estim Creat Clear Calc 132.41, Est GFR (MDRD) Non-Af 119, BUN/Creatinine Ratio 29.5 H, Glucose 109 H, Calcium 9.3, Phosphorus 3.3, Magnesium 2.3 H Microbiology: Microbiology 05/23/25 22:45 Blood Culture (Wb) - Right Hand Blood Culture - Preliminary No growth in 48 hours. 05/23/25 22:50 Blood Culture (Wb) - Right Forearm Blood Culture - Preliminary No growth in 48 hours. 05/23/25 23:00 Urine Catheter - Catheter Urine Culture - Final ESBL Klebsiella pneumoniae pne Meaningful Use Info Meaningful Use Meaningful Use Diagnoses (Choose all that apply): None applicable Discharge Plan Admission Admit Date/Time: 05/24/25 01:05 Attending Provider: Vineet Ibrahim Primary Care Provider: Kelsey Toure NP Consulting Providers: Roque Nieto Prakash; Mario Rai; Juliette Mendez; Shell Brewer; Manda Butler Discharge Orders/Prescriptions Prescriptions: New ertapenem 1 gram recon soln 1 g IV DAILY 10 Days Continued psyllium husk [Fiber Laxative (psyllium husk)] 0.52 gram capsule 0.52 g PO QDAY loratadine 10 mg tablet 10 mg PO QDAY mupirocin calcium 2 % cream 1 applic topical BID sertraline 50 mg tablet 50 mg PO QDAY lubiprostone 24 mcg capsule 24 mcg PO BID bisacodyl [Dulcolax (bisacodyl)] 5 mg tablet,delayed release (DR/EC) 5 mg PO ONCE PRN (Reason: constipation) Qty: 30 3RF Rx Instructions: as needed for constipation, take 5mg PO if no bowel movement in 48 hours and repeat daily until effective multivitamin with folic acid [Thera] 1 TABLET tablet 1 tab PO QHS omeprazole 20 MG capsule 20 mg PO QHS aspirin 81 MG tablet,chewable 81 mg PO DAILY@0800 0RF Patient Comments: to stop aspirin per Dr Hernandez/ last dose 09/18/20 polyethylene glycol 3350 17 GM packet 17 gm PO DAILY PRN PRN (Reason: Constipation) oxybutynin chloride 15 mg tablet extended release 24hr 5 mg PO TID budesonide 0.25 mg/2 mL Suspension For Nebulization 0.25 mg INHALATION BID Digestive Advantage Prob Gummy 250 million cell tablet,chewable 1 tab PO DAILY lisinopril 20 mg tablet 20 mg PO DAILY potassium citrate 10 mEq (1,080 mg) tablet extended release 10 meq PO BID Discontinued sulfamethoxazole-trimethoprim 800-160 mg tablet 1 tab PO BID Other Ambulatory Orders: Basic Metabolic Profile (BMP) (Routine) Timeframe: [id number] Facility: [facility] - Location: Laboratory Ordered By: Dr. Vineet Ibrhaim CBC W/Diff, Automated (Routine) Timeframe: [id number] Facility: [facility] - Location: Laboratory Ordered By: Dr. Vineet Ibrahim Referrals / Follow Up: Kelsey Toure NP, EMERGENCY ROOM CLERK-C [Primary Care Provider, Internal Medicine] - Within 1 Week Disposition Disposition (needs filled in before D/C Order can be placed): .Default Discharge Orders: Discharge Patient (Routine); Ordered 05/27/25 Ordered By: Dr. Vineet Ibrahim Charges/Coding Visit Charges Inpatient E&M: 13745 Disch Hosp >30min
--- NOTE | 2025-05-27 10:33 | CASEMGMT ---
Social Work SW called the sister Robyn and discussed DC plans. SW discussed that HH is declining the referral because they do not have speech therapy. SW discussed having HH for the IV antibiotics and then going to OP ST once the IV antibiotics are completed in 10 days. SW discussed the patient DC to a SNF so she can get her IV antibiotics and speech therapy until the antibiotics are completed. The sister reported she wants to discuss the options with her mom. The sister reported she is okay with using [facility] for [place] antibiotics. Plan: [facility] will follow up with the family on decision. CHRISTINE Jaquez
--- NOTE | 2025-05-27 10:46 | CASEMGMT ---
Discharge Planning A list of?SNF providers including quality and resource use data and consistent with the patient's preferred geographic region, medical needs, and insurance network was created in [employer]Port Guide.? This list was provided to the HUBERT. Nahomy Weiner, Discharge Planning Asst
[2025-05-27] MEDS: Budesonide Respules 0.5 MG/2 ML AMPUL.NEB. 0.25 MG INHALATION (10:57)
--- NOTE | 2025-05-27 11:19 | PCM.PRE.AN2 ---
ASA Classification* ASA Classification ASA Classification: 3 Assessment & Plan Anesthesia* Anesthesia Assessment Anesthesia Assessment: Discussed sedation and/or anesthesia options, risks, benefits, and alternatives with patient/parents/legal guardian/POA. Questions invited. The patient/parents/legal guardian/POA seems to understand and agrees to proceed with anesthesia plan. Reviewed the physical assessment, medical history, allergy history and patient home medications list prior to surgery/procedure/anesthetic and documented any changes. Performed airway and anesthesia risk assessments. Anesthesia Type Anesthesia Type: MAC Anesthesia Focused Assessment* Temperature: 97.7 F Pulse Rate: 104 Blood Pressure: 116/84 Respiratory Rate: 18 Pulse Ox: 95 Oxygen Flow Rate (L/min): 2 Airway Assessment Mouth opens: >3 cm Mallampati Score: II Labs Anesthesia Preop lab: CBC WBC, (4.4-11.0) 11.0 K/mm3 Today, 04:00 RBC, (4.2-5.4) 4.21 M/mm3 Today, 04:00 Hgb, (12.0-15.0) 11.3 g/dL L Today, 04:00 Hct, (37-47) 36.1 % L Today, 04:00 Plt Count, (150-450) 458 K/mm3 H Today, 04:00 CHEMISTRY Potassium, (3.3-5.1) 4.3 mmol/L Today, 04:00 Sodium, (133-145) 136 mmol/L Today, 04:00 Magnesium, (1.5-2.2) 2.3 mg/dL H Today, 04:00 Phosphorus, (2.7-4.5) 3.3 mg/dL Today, 04:00 BUN, (4-19) 13 mg/dL Today, 04:00 Creatinine, (0.70-1.20) 0.42 mg/dL L Today, 04:00 Glucose, (70-99) 109 mg/dL H Today, 04:00 TSH, (0.358-3.74) 2.40 uIU/mL 03/12/18, 11:30 COAG PT, (11.7-14.9) 13.4 SECONDS 05/23/, 22:50 Urine Test Negative Negative 09/11/20, 11:48 Pre-Assessment Diagnosis/Proposed Procedure Planned Operative Procedure(s): EGD Anesthesia History Anesthesia History - post secondary professional: Anesthesia History - post secondary professional Hx Hospitalization No 01/22/25 10:33 Any Problems With Anesthesia No 05/26/25 19:44 Cholinesterase deficiency No 05/26/25 19:44 You/Your Family Experience No 05/26/25 19:44 fever (hyperthermia) with Relationship Recent Exposure to Contagious No 05/26/25 19:44 Disease Does patient have nerve No 05/26/25 19:44 stimulator Patient instructed to have No 05/26/25 19:44 device shut off --Does patient have Pacemaker No 05/27/25 11:14 or ICD? When Was Last Pacemaker Check QUESTION #4 FULL TEXT: You/Your Family Experience fever (hyperthermia) with Anesthesia Last Oral Intake Last Oral intake: Last Oral Intake NPO since 23:45 05/27/25 11:14 Meds taken in AM with sips of No 05/27/25 11:14 water? Meds patient instructed to take am of surgery PONV PONV - post secondary professional: PONV - post secondary professional Female HX of Motion Sickness HX of N/V After Surgery Non-Smoker Duration of Surgery greater than 60 minutes Number of Risk Factors PONV Score Height & Weight Height & Weight: Anesthesia: Height & Weight Height 4 ft 10 in 05/27/25 11:14 Weight: 61.518 kg 05/27/25 11:14 Body Mass Index (BMI) 28.3 05/27/25 11:14 Respiratory Assessment Respiratory Assessment - post secondary professional: Respiratory Tract Infection Hx - post secondary professional Hx Respiratory Tract Infection No 05/26/25 19:44 STOP Sleep Apnea STOP Sleep Apnea - post secondary professional: STOP Sleep Apnea - post secondary professional Hx Hypertension Yes 05/24/25 02:52 Hx Sleep Apnea Yes 05/24/25 02:52 CPAP No 05/24/25 02:52 BIPAP Yes 05/24/25 02:52 Do you snore loudly (louder than talking or can be heard Do you often feel tired/ fatigued/ sleepy during daytime? Has anyone observed you stop breathing during sleep? STOP Results Positive 05/24/25 02:52 QUESTION #5 FULL TEXT : Do you snore loudly (louder than talking or can be heard through closed doors)? 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 Specify any problems Hx of Preganancy in last 3 No 05/24/25 02:52 Months Nurse Filling Out Transfusion RMAIBACH 05/24/25 02:52 & Questions: Date: 05/24/25 05/24/25 02:52 Time: 02:53 05/24/25 02:52 Patient unable to answer at this time (ie. confused, unrespo /Reproduction History /Reproductive History - post secondary professional: /Reproductive Hx- post secondary professional Hx Now No: Family refused 05/26/25 19:44 test Gestational Age (in weeks): EDC: Hx Hx Para Hx Section SAB No 05/26/25 19:44 Does the father of the baby or his family experience fever w Father of the baby Malignant Hypertension history comment Active Medications Active Medications: Current Medications Generic Name Dose Route Start Last Admin Trade Name Freq PRN Reason Stop Dose Admin Aspirin 81 mg 05/24/25 08:00 05/26/25 09:43 Aspirin 81 Mg Tab.Chew PO 81 mg DAILY@0800 MONE Administration Bisacodyl 5 mg 05/24/25 15:00 05/24/25 21:14 Bisacodyl 5 Mg Tablet PO 5 mg X1 PRN Administration Constipation Budesonide 0.25 mg 05/24/25 10:00 05/27/25 10:57 Budesonide Respules 0.5 Mg/2 Ml Ampul.Neb. INHALATION 0.25 mg BID.RT MONE Administration Enoxaparin Sodium 40 mg 05/24/25 10:00 05/26/25 12:18 Enoxaparin 40 Mg/0.4 Ml Syringe SC 40 mg DAILY MONE Administration Sodium Chloride 250 mls @ 15 mls/hr 05/24/25 02:03 05/26/25 05:37 IV 0 mls/hr .[id number] PRN Infusion Saline Flush Sodium Chloride 250 mls @ 15 mls/hr 05/24/25 02:03 IV .[id number] PRN Additional IVPB Infusion Meropenem 1 gm/ Sodium 100 mls @ 33 mls/hr 05/25/25 08:00 05/27/25 08:54 Chloride IV Infused Q8 MONE Infusion Lisinopril 20 mg 05/25/25 10:00 05/26/25 09:43 Lisinopril 20 Mg Tablet PO 20 mg DAILY MONE Administration Protocol Loratadine 10 mg 05/25/25 10:00 05/26/25 09:43 Loratadine 10 Mg Tablet PO 10 mg DAILY MONE Administration Multivitamins 1 tablet 05/24/25 22:00 05/26/25 21:31 Multivitamins,Therapeutic Tablet PO 1 tablet QHS MONE Administration Oxybutynin Chloride 5 mg 05/24/25 17:00 05/27/25 10:16 Oxybutynin 5 Mg Tablet PO Not Given TIDCM MONE Pantoprazole Sodium 20 mg 05/24/25 22:00 05/26/25 21:31 Pantoprazole Sodium 20 Mg Tablet PO 20 mg QHS MONE Administration Polyethylene Glycol 17 gm 05/24/25 02:03 Polyethylene Glycol 3350 17 Gm Packet PO DAILY PRN PRN CONSTIPATION Psyllium Hydrophilic Mucilloid 1 packet 05/25/25 10:00 05/26/25 09:43 Psyllium 1 Packet PO 1 packet DAILY MONE Administration Sertraline HCl 50 mg 05/24/25 10:00 05/26/25 09:43 Sertraline 50 Mg Tablet PO 50 mg DAILY MONE Administration Sodium Chloride 10 - 40 ml 05/24/25 02:03 05/25/25 09:09 0.9% Saline Lock 10 Ml Syringe IV 10 ml UD PRN Administration SALINE FLUSH [facility] Medical History Suprapubic catheter History of Clostridium difficile infection Anxiety Pressure ulcer Easy bruising Dietary restriction Difficulty chewing Heartburn Sleep apnea On home oxygen therapy Hypertension Decubitus ulcer of right buttock, stage 3 Decubitus ulcer of left buttock, stage 3 GI problem Seasonal allergies Wears glasses Depression Uses wheelchair History of urinary self-catheterization Back pain Constipation Gastric reflux Non-smoker BiPAP (biphasic positive airway pressure) dependence Asthma History of edema History of echocardiogram Hx of back injury Acquired scoliosis Spina bifida Home Medications ?Medication ?Instructions ?Recorded ?Last Taken ?Type multivitamin with folic acid 400 1 tab PO QHS general health 04/24/13 05/24/25 History mcg tablet (Thera) omeprazole 20 mg capsule,delayed 20 mg PO QHS acid reflux 03/11/18 05/24/25 History release aspirin 81 mg chewable tablet 81 mg PO DAILY@0800 03/14/18 05/24/25 Rx polyethylene glycol 3350 17 gram 17 gm PO DAILY PRN PRN Constipation 09/14/20 01/22/25 History oral powder packet budesonide 0.25 mg/2 mL suspension 0.25 mg inhalation BID respiratory 10/28/21 05/24/25 History for nebulization loratadine 10 mg tablet 10 mg PO QDAY allergies 08/21/24 05/24/25 History mupirocin calcium 2 % topical cream 1 applic topical BID skin 08/21/24 05/24/25 History oxybutynin chloride 15 mg 5 mg PO TID BLADDER 08/21/24 05/24/25 History tablet,extended release 24 hr psyllium husk 0.52 gram capsule 0.52 g PO QDAY constipation 08/21/24 05/24/25 History (Fiber Laxative (psyllium husk)) sertraline 50 mg tablet 50 mg PO QDAY antidepressant 08/21/24 05/24/25 History Bacillus coagulans 250 million 1 tab PO DAILY probiotic 01/22/25 05/24/25 History cell chewable tablet (Digestive Advantage Probiotic Gummy) lisinopril 20 mg tablet 20 mg PO DAILY BP 01/22/25 05/24/25 History bisacodyl 5 mg tablet,delayed 5 mg PO ONCE PRN constipation #30 01/30/25 Unknown Rx release (Dulcolax (bisacodyl)) tabs lubiprostone 24 mcg capsule 24 mcg PO BID constipation 01/30/25 05/24/25 History potassium citrate 10 mEq (1,080 10 meq PO BID supplement 05/23/25 05/24/25 History mg) tablet,extended release ertapenem 1 gram solution for 1 g IV DAILY 10 days 05/27/25 Unknown Rx injection Allergy/AdvReac Type Severity Reaction Status Date / Time amoxicillin (From Augmentin) AdvReac Diarrhea Verified 05/23/25 20:47 azithromycin (From Zithromax AdvReac Diarrhea Verified 05/23/25 20:47 Z-Turner) ciprofloxacin (From Cipro) AdvReac Pain in Verified 05/23/25 20:47 joints clavulanic acid (From AdvReac Diarrhea Verified 05/23/25 20:47 Augmentin) Family History Other Hypertension Surgical History History of brain surgery History of incision and drainage Hx of eye surgery Hx of ileostomy History of brain shunt History of cystoscopy Hx of cholecystectomy Social History Smoking Status: Never smoker Review of Systems (Anesthesia) ROS Narrative System reviewed and no additional complaints, except as documented.
[2025-05-27] MEDS: Lactated Ringers 1,000 ML 15 ML IV (11:24)
--- NOTE | 2025-05-27 11:37 | CASEMGMT ---
Social Work SW spoke with the sister Robyn and the mother. SW provided them a list of?SNF providers including quality and resource use data and consistent with the patient's preferred geographic region, medical needs, and insurance network was created in [employer]Port Guide.?The sister chose [facility] longterm. A referral will be sent to [facility] for SNF. CHRISTINE Jaquez
--- NOTE | 2025-05-27 11:38 | CASEMGMT ---
Addendum entered by Nahomy Weiner 05/27/25 15:25: [facility]. SW updated. Original Note: Discharge Planning Referral sent via [facility] to [facility]. Nahomy Weiner DC Planning Asst.
--- NOTE | 2025-05-27 11:46 | CASEMGMT ---
Addendum entered by Shahrzad Contreras 05/27/25 11:53: Due to testing and DC planning. Original Note: Social Work SW called the sister Robyn and informed the DC has been cancelled for today. CHRISTINE Jaquez
--- NOTE | 2025-05-27 12:15 | EGD_PTH ---
PATIENT: JULIETTE DE LA TORRE RAI LOC: [facility] U#:[id number] AGE/SX: 50/F ROOM: [facility] RE05/24/[address]: Dr. Vineet Ibrahim MD : 1975 BED: 1 DIS: 05/28/2025 SPEC #: [id number] RECD: 05/27/25 13:09 STATUS: JOSE D RESheryl #: [id number] KAILA: 05/27/25 12:[address]: Ra Ceceliahsaan DEPT: SURGICAL PATHOLOGY RECD BY: Que Delaney ENTERED: 05/27/25 14:53 SP TYPE: EGD BIOPSY OT DR: MD Dr. Roque Claros MD Dr. Prakash Chand, MD Dr. Robert Leininger, MD Danielle Byler, POURER-C Juliette Mendez, POURER-Martell Brewer, POURER-C CHARBEL Garcia Tissues: A - Esophagus, NOS Procedures: Surgery Specimen Level IV HEADER OPERATION: EGD with dilation PRE-OP DIAGNOSIS: Dysphagia TISSUE SUBMITTED: A. random esophagus biopsy MICROSCOPIC DIAGNOSIS A. Esophagus, random, biopsy: - Squamous mucosa with reactive changes, mild acute inflammation and rare eosinophils. - PASD stain is negative for fungal organisms. MICROSCOPIC DESCRIPTION Slides are reviewed. All matched controls reacted appropriately. These tests were developed and their performance characteristics determined by [facility]. They may not have been cleared or approved by the U.S. Food and Drug Administration. The FDA has determined that such clearance or approval is not necessary. The above immunohistochemical markers and/or special?stains have been reviewed by the Pathologist. GROSS DESCRIPTION A. Received is one container labeled with the patient name and designated random esophagus. The specimen consists of two irregular fragments of lentz tissue that measure 0.4cm. The specimen is totally submitted in one cassette. VT 05/27/2025 CPT: 57352,44410
--- NOTE | 2025-05-27 13:12 | OP.EGD_ITS ---
Patient Name: Juliette Crews Procedure Date: 05/27/2025 12:08 PM Date of : 1975 Age: 50 Procedure: Upper GI endoscopy Indications: Dysphagia Providers: Mario Rai DO Medicines: Monitored Anesthesia Care Patient Profile: This is a 50 year old female. Refer to note in patient chart for documentation of history and physical. Patient has symptoms of dysphagia with both liquids and solids. Complications: No immediate complications. Procedure: Pre-Anesthesia Assessment: - Prior to the procedure, a History and Physical was performed, and patient medications and allergies were reviewed. The patient is competent. The risks and benefits of the procedure and the sedation options and risks were discussed with the patient. All questions were answered and informed consent was obtained. Patient identification and proposed procedure were verified by the physician in the pre-procedure area. Mental Status Examination: alert and oriented. Airway Examination: normal oropharyngeal airway and neck mobility. Respiratory Examination: clear to auscultation. CV Examination: normal. Prophylactic Antibiotics: The patient does not require prophylactic antibiotics. Prior Anticoagulants: The patient has taken no anticoagulant or antiplatelet agents. ASA Grade Assessment: II - A patient with mild systemic disease. After reviewing the risks and benefits, the patient was deemed in satisfactory condition to undergo the procedure. The anesthesia plan was to use monitored anesthesia care (MAC). Immediately prior to administration of medications, the patient was re-assessed for adequacy to receive sedatives. The heart rate, respiratory rate, oxygen saturations, blood pressure, adequacy of pulmonary ventilation, and response to care were monitored throughout the procedure. The physical status of the patient was re-assessed after the procedure. After obtaining informed consent, the endoscope was passed under direct vision. Throughout the procedure, the patient's blood pressure, pulse, and oxygen saturations were monitored continuously. The Endoscope was introduced through the mouth, and advanced to the second part of duodenum. The upper GI endoscopy was accomplished without difficulty. The patient tolerated the procedure well. Scope In: 12:46:57 PM Scope Out: 1:00:08 PM Total Procedure Duration Time 0 hours 13 minutes 11 seconds Findings: Abnormal motility was noted in the esophagus. The cricopharyngeus was abnormal. There are extra peristaltic waves in the esophageal body. The distal esophagus/lower esophageal sphincter is spastic, but gives up passage to the endoscope. Tertiary peristaltic waves are noted. Biopsies were taken with a cold forceps for histology. Verification of patient identification for the specimen was done. Estimated blood loss was minimal. A guidewire was placed and the scope was withdrawn. Dilation was performed with a Savary dilator with no resistance at 57 Fr. The dilation site was examined and showed moderate mucosal disruption. A few medium sessile polyps with no stigmata of recent bleeding were found in the gastric body. No gross lesions were noted in the entire examined duodenum. Impression: - Abnormal esophageal motility. Biopsied. Dilated. - A few gastric polyps. - No gross lesions in the entire examined duodenum. - Repeat swallowing study and if still abnormal she will need to undergo manometry Recommendation: - Await pathology results. - Continue present medications. Procedure Code(s): --- Professional --- 30679, Esophagogastroduodenoscopy, flexible, transoral; with insertion of guide wire followed by passage of dilator(s) through esophagus over guide wire 99127, 59, Esophagogastroduodenoscopy, flexible, transoral; with biopsy, single or multiple CPT copyright 2021 [employer]. All rights reserved. The codes documented in this report are preliminary and upon certified medical coder review may be revised to meet current compliance requirements. Mario Rai DO 05/27/2025 1:12:06 PM This report has been signed electronically. Number of Addenda: 0 Note Initiated On: 05/27/2025 12:08 PM
--- NOTE | 2025-05-27 13:12 | OP.PROVAT_ITS ---
05/27/2025 Sangeeta Joseph Re : Upper GI endoscopy procedure for Juliette Crews Dear [place] This procedure was performed on Tuesday, May 27, 2025. My impressions and recommendations are as follows: Impressions : - Abnormal esophageal motility. Biopsied. Dilated. - A few gastric polyps. - No gross lesions in the entire examined duodenum. - Repeat swallowing study and if still abnormal she will need to undergo manometry Recommendations : - Await pathology results. - Continue present medications. My findings are described in the full procedure note, which is enclosed. If I can be of further assistance, please feel free to contact me at . Sincerely, Mario Rai, 05/27/2025 1:12:06 PM This report has been signed electronically.
--- NOTE | 2025-05-27 13:39 | PCM.POST.ANE ---
Anesthesia: Postop Eval I Current Vital Signs Temperature: 98.3 F Pulse Rate: 103 Blood Pressure: 126/86 Respiratory Rate: 14 Pulse Ox: 94 Oxygen Delivery Method: Room Air Assessment Airway patent: Yes Spontaneous unlabored respirations: Yes Mental status: Awake nausea: No Vomiting: No Anesthesia Complication: No Fluid Hydration Crystalloid volume administer (ml): 100 Total IV fluid infused: 100 Progress Note Anesthesia document: Postop Eval 1 completed: Yes
--- NOTE | 2025-05-27 13:42 | PCM.POSTANE2 ---
Anesthesia Postop Eval I Sum Postop Eval Completion status Anesthesia document: Postop Eval 1 completed: Yes Anesthesia Postop Eval I Summary Anesthesia Postop Eval I Summary: Anesthesia Postop Eval I: Assessment Summary Airway patent Yes 05/27/25 13:40 Spontaneous unlabored Yes 05/27/25 13:40 respirations Mental status Awake 05/27/25 13:40 nausea No 05/27/25 13:40 Vomiting No 05/27/25 13:40 Anesthesia Postop Eval I: Fluid Summary Crystalloid volume administer 100 05/27/25 13:40 (ml) Colloids volume administered ( ml) Blood Product volume administered (ml) Total IV fluid infused 100 05/27/25 13:40 Anesthesia Postop Eval I: Summary Notes Anesthesia Complication No 05/27/25 13:40 Anesthesia Complication Comment: Post-operative progress note Anesthesia: Postop Eval II Evaluation Mental status: Awake Pain Level: 0 nausea: No Vomiting: No
--- NOTE | 2025-05-27 13:47 | PCM.POST.ANE ---
Anesthesia: Postop Eval I Current Vital Signs Temperature: 98.3 F Pulse Rate: 103 Blood Pressure: 126/86 Respiratory Rate: 18 Pulse Ox: 94 Oxygen Delivery Method: Room Air Assessment Airway patent: Yes Spontaneous unlabored respirations: Yes Mental status: Awake and Calm nausea: No Vomiting: No Anesthesia Complication: No Fluid Hydration Crystalloid volume administer (ml): 400 Total IV fluid infused: 400 Progress Note Anesthesia document: Postop Eval 1 completed: Yes
[2025-05-27] MEDS: Lactobacillis Acidophilus 1 CAP PO (14:38)
[2025-05-27] MEDS: Psyllium 1 PACKET PO (14:38)
--- NOTE | 2025-05-27 15:23 | CASEMGMT ---
Social Work SW called the sister Robyn and informed that her sister has been accepted at [facility]
[2025-05-27] MEDS: 0.9% Saline Lock 10 ML Syringe IV (21:45)
[2025-05-28 00:25] VITALS: O2SAT 95
[2025-05-28 04:55] VITALS: PULSE 104; RESP 16; O2SAT 92
[2025-05-28] MEDS: Budesonide Respules 0.5 MG/2 ML AMPUL.NEB. 0.25 MG INHALATION (04:55)
[2025-05-28] MEDS: Meropenem 1 GM in 0.9% Normal Saline (100mL MB+) 100 ML IV (05:18)
[2025-05-28 05:19] VITALS: BP 124/66; PULSE 100; RESP 17; TEMP 37.3; O2SAT 93
[2025-05-28 06:14] LABS: Hematocrit 34.6 % (37-47); Hemoglobin 10.9 g/dL (12.0-15.0); Immature Granulocytes Count 0.030 X10^3/uL (0.0-0.0); Mean Corp Hgb Conc 31.5 g/dL (32-36); Mean Corpuscular Volume 86.1 fL (81-99); Mean Platelet Vol. 9.2 fl (6.2-12.0); NRBC Flagged by Analyzer 0 % (0-5); Platelet Count 427 K/mm3 (150-450); RBC Distribution Width CV 17.2 % (11.6-14.6); RBC Distribution Width SD 53.4 fl (35.1-43.9); Red Blood Count 4.02 M/mm3 (4.2-5.4); White Blood Count 11.4 K/mm3 (4.4-11.0)
[2025-05-28 06:42] LABS: Anion Gap 11 (7-18); BUN 9 mg/dL (4-19); BUN/Creat Ratio 24.2 RATIO (10-20); Calcium,Total 9.0 mg/dL (7.6-11.0); Carbon Dioxide 27.3 mmol/L (20.0-29.0); Chloride 99 mmol/L (96-106); Estimated Creatinine Clearance 149.06 ml/min (50-250); Glucose 92 mg/dL (70-99); Potassium 4.3 mmol/L (3.5-5.1)
--- NOTE | 2025-05-28 07:16 | PN.HOSP_ITS ---
Subjective Subjective Patient underwent EGD by Dr. Rai on 05/28/2025, findings as documented below Objective Data Objective Data Vital Signs: Vital Signs Temp Pulse Resp BP Pulse Ox O2 Del Method O2 Flow Rate 99.2 F H 100 17 124/66 H 93 Room Air 2 05/28/25 05:19 05/28/25 05:19 05/28/25 05:19 05/28/25 05:19 05/28/25 05:19 05/28/25 05:19 05/28/25 00:25 Oxygen Flow Rate (L/min) 2 Oxygen Delivery Method Room Air Weight: 61.518 kg Body Mass Index (BMI) 28.3 Intake & Output: Intake and Output for Last 24 Hours 05/26/25 05/27/25 05/28/25 23:59 23:59 23:59 Intake Total 1006.60 / 1006.60 853.2 / 853.2 100 / 100 Output Total 1450 / 1450 1050 / 1050 1050 / 1050 Balance -443.40 / -443.40 -196.8 / -196.8 -950 / -950 Lab / Micro Data 05/28/25 05:37 05/28/25 05:37 Labs: Laboratory Results - last 24 hr 05/28/25 05:37: WBC 11.4 H, RBC 4.02 L, Hgb 10.9 L, Hct 34.6 L, MCV 86.1, MCH 27.1, MCHC 31.5 L, RDW Std Deviation 53.4 H, RDW Coeff of Melodie 17.2 H, Plt Count 427, MPV 9.2, Immature Gran % (Auto) 0.300, Neut % (Auto) 64.8, Lymph % (Auto) 24.9, [place] % (Auto) 6.1, Eos % (Auto) 3.4, Baso % (Auto) 0.5, Absolute Neuts (auto) 7.4, Absolute Lymphs (auto) 2.83, Nucleated RBC % 0, Sodium 137, Potassium 4.3, Chloride 99, Carbon Dioxide 27.3, Anion Gap 11, BUN 9, Creatinine 0.37 L, Estim Creat Clear Calc 149.06, Est GFR (MDRD) Non-Af 123, BUN/Creatinine Ratio 24.2 H, Glucose 92, Calcium 9.0 Micro: Microbiology 05/23/25 22:45 Blood Culture (Wb) - Right Hand Blood Culture - Preliminary No growth in 48 hours. 05/23/25 22:50 Blood Culture (Wb) - Right Forearm Blood Culture - Preliminary No growth in 48 hours. 05/23/25 23:00 Urine Catheter - Catheter Urine Culture - Final ESBL Klebsiella pneumoniae pne Physical Exam Narrative GENERAL: Patient appears comfortable at rest HEENT: Atraumatic; normocephalic EYES; Anicteric, Normal Conjunctiva NECK; supple, normal thyroid, RESPIRATORY: Diminished to auscultation CARDIOVASCULAR: Regular S1 S2, GI: soft, normoactive bowel sounds, : Suprapubic catheter in place EXTREMITIES: No edema, no clubbing, MUSCULOSKELETAL: no muscle wasting NEURO: Awake; no lateralizing signs. SKIN: No Rash PSYCH; Flat affect Assessment & Plan Assessment/Plan (1) Acute urinary tract infection: PLAN: Plan Patient is a 50-year-old lady with past medical history significant for spina bifida with suprapubic catheter who had been diagnosed with UTI a week prior to her admission. Was seen at an outside hospital discharged on Bactrim. Patient urine cultures however came back positive for Klebsiella pneumonia resistant to Bactrim. Patient was brought to the emergency department with worsening clinical condition and some intermittent confusion 1. Sepsis secondary to acute complicated UTI with Klebsiella pneumonia UTI ? Secondary to presence of suprapubic catheter. Patient did fail outpatient treatment. Admitted to a regular nursing floor patient was started on ceftriaxone based on cultures.Repeat cultures sent ? 05/25/2025Patient urine cultures came back positive for ESBL Klebsiella pneumoniae sp pneum. Patient has been started on cefdinir on admission discontinue started on meropenem. ? 05/26/2025; Midline was placed the day prior. Did discuss with case management plan is for patient to be discharged back to her [facility] with IV antibiotics 2. Acute metabolic encephalopathy ? Present on admission secondary to UTI management as discussed above ? 05/26/2025; patient back to baseline 3. Suspected aspiration ? Patient was noted to have choked on her diet subsequently kept n.p.o. consult placed to therapy for speech and swallow eval ? 05/25/2025;Patient also underwent speech and swallow eval which revealed aspiration of thin liquid, esophageal retention with retrograde flow. Recommendation was made to consult general surgery consult placed the day before ? Plan is for patient to undergo modified barium swallow after which patient will be assessed for possible ? 05/28/2025; Impressions : - Abnormal esophageal motility. Biopsied. Dilated. - A few gastric polyps. - No gross lesions in the entire examined duodenum. - Repeat swallowing study and if still abnormal she will need to undergo manometry Recommendations : - Await pathology results. 4. Hypertension ? Blood pressure controlled, home medications continued with dose adjustment as needed 5. Spina bifida ? With chronic wounds for which patient is seen at the wound care center consult was placed wound care nurse 6. GERD ? On PPI 7. Depression with anxiety ? Patient is on sertraline continue 8. Anemia ? Secondary to chronic disorder monitoring H&H and transfuse if patient becomes symptomatic or hemoglobin falls below 7 9. Obstructive sleep apnea ? PAP therapy at night 10. DVT prophylaxis ? Subcu Lovenox Time spent in the patient's overall evaluation,decision-making process, review of diagnostic data, adjustment of management, discussion with other providers, nursing nursing and ancillary staff involved in patient's care documentation, 35 Minutes
--- NOTE | 2025-05-28 09:14 | TREXTCAR_ITS ---
Diet Diet Order/Speech Therapy: INPATIENT Hospital Diet / Speech Therapy Order(s) 05/27/25 14:15 Diet: Regular - General Food consistency:: Pureed Liquid Consistency:: Reed/Mildly Thick Speech Therapy Comments: Direct sup for all food/drink, SLOW RATE, meds whole w/ water 1 at a time Routine Orders/Code Status Code Status: Full Code DC O2, CPAP, BIPAP needs Home O2 Discharge instructions: No Wound(s) Coccyx/Back: Wound Type: Pressure Injury Therapies Physical Therapy: Eval and Treat Occupational Therapy: Eval and Treat Speech Therapy: Eval and Treat Problem/Diagnosis (1) Acute urinary tract infection: Status: Acute Code(s): N39.0 - Urinary tract infection, site not specified Plan Patient is a 50-year-old lady with past medical history significant for spina bifida with suprapubic catheter who had been diagnosed with UTI a week prior to her admission. Was seen at an outside hospital discharged on Bactrim. Patient urine cultures however came back positive for Klebsiella pneumonia resistant to Bactrim. Patient was brought to the emergency department with worsening clinical condition and some intermittent confusion 1. Sepsis secondary to acute complicated UTI with Klebsiella pneumonia UTI ? Secondary to presence of suprapubic catheter. Patient did fail outpatient treatment. Admitted to a regular nursing floor patient was started on ceftriaxone based on cultures.Repeat cultures sent ? 05/25/2025Patient urine cultures came back positive for ESBL Klebsiella pneumoniae sp pneum. Patient has been started on cefdinir on admission discontinue started on meropenem. ? 05/26/2025; Midline was placed the day prior. Did discuss with case management plan is for patient to be discharged back to her [facility] with IV antibiotics 2. Acute metabolic encephalopathy ? Present on admission secondary to UTI management as discussed above ? 05/26/2025; patient back to baseline 3. Suspected aspiration ? Patient was noted to have choked on her diet subsequently kept n.p.o. consult placed to therapy for speech and swallow eval ? 05/25/2025;Patient also underwent speech and swallow eval which revealed aspiration of thin liquid, esophageal retention with retrograde flow. Recommendation was made to consult general surgery consult placed the day before ? Plan is for patient to undergo modified barium swallow after which patient will be assessed for possible ? 05/28/2025; Impressions : - Abnormal esophageal motility. Biopsied. Dilated. - A few gastric polyps. - No gross lesions in the entire examined duodenum. - Repeat swallowing study and if still abnormal she will need to undergo manometry Recommendations : - Await pathology results. 4. Hypertension ? Blood pressure controlled, home medications continued with dose adjustment as needed 5. Spina bifida ? With chronic wounds for which patient is seen at the wound care center consult was placed wound care nurse 6. GERD ? On PPI 7. Depression with anxiety ? Patient is on sertraline continue 8. Anemia ? Secondary to chronic disorder monitoring H&H and transfuse if patient becomes symptomatic or hemoglobin falls below 7 9. Obstructive sleep apnea ? PAP therapy at night 10. DVT prophylaxis ? Subcu Lovenox Time spent in the patient's overall evaluation,decision-making process, review of diagnostic data, adjustment of management, discussion with other providers, nursing nursing and ancillary staff involved in patient's care documentation, 35 Minutes Allergies/Procedures Done in Hospital Allergies amoxicillin (From Augmentin) Adverse Reaction (Verified 05/23/25 20:47) Diarrhea azithromycin (From Zithromax Z-Turner) Adverse Reaction (Verified 05/23/25 20:47) Diarrhea ciprofloxacin (From Cipro) Adverse Reaction (Verified 05/23/25 20:47) Pain in joints clavulanic acid (From Augmentin) Adverse Reaction (Verified 05/23/25 20:47) Diarrhea Type of Care/Length of Stay Estimated LOS: Convalescent Care Less Than 30 days Type of Care Needed: Skilled Rehab Potential: Fair Prognosis: Fair Additional Orders/Day of Discharge Day of Discharge: 05/28/25 Dietary and Speech Recommendations Dietitian Recommendations/Changes: Recommend advanced diet as tolerated to regular per T RAIL TURNER recommendations. Recommend theron with breakfast and dinner per T RAIL TURNER recommendations to promote wound healing, as diet is advanced. Will monitor weight trends, labs, and PO intake. Discharge Plan Admission Admit Date/Time: 05/24/25 01:05 Attending Provider: Vineet Ibrahim Primary Care Provider: Kelsey Toure NP Consulting Providers: Roque Nieto; Sage Pérez; Mario Rai; Juliette Mendez; Shell Brewer; Manda Butler; Parviz Nayak Discharge Orders/Prescriptions Prescriptions: New ertapenem 1 gram recon soln 1 g IV DAILY 5 Days Rx Instructions: stop date 06/01/25. Dx: ESBL infection. Routine midline care per protocol. Continued psyllium husk [Fiber Laxative (psyllium husk)] 0.52 gram capsule 0.52 g PO QDAY loratadine 10 mg tablet 10 mg PO QDAY mupirocin calcium 2 % cream 1 applic topical BID sertraline 50 mg tablet 50 mg PO QDAY lubiprostone 24 mcg capsule 24 mcg PO BID bisacodyl [Dulcolax (bisacodyl)] 5 mg tablet,delayed release (DR/EC) 5 mg PO ONCE PRN (Reason: constipation) Qty: 30 3RF Rx Instructions: as needed for constipation, take 5mg PO if no bowel movement in 48 hours and repeat daily until effective multivitamin with folic acid [Thera] 1 TABLET tablet 1 tab PO QHS omeprazole 20 MG capsule 20 mg PO QHS aspirin 81 MG tablet,chewable 81 mg PO DAILY@0800 0RF Patient Comments: to stop aspirin per Mary/ last dose 09/18/20 polyethylene glycol 3350 17 GM packet 17 gm PO DAILY PRN PRN (Reason: Constipation) oxybutynin chloride 15 mg tablet extended release 24hr 5 mg PO TID budesonide 0.25 mg/2 mL Suspension For Nebulization 0.25 mg INHALATION BID Digestive Advantage Prob Gummy 250 million cell tablet,chewable 1 tab PO DAILY lisinopril 20 mg tablet 20 mg PO DAILY potassium citrate 10 mEq (1,080 mg) tablet extended release 10 meq PO BID Discontinued sulfamethoxazole-trimethoprim 800-160 mg tablet 1 tab PO BID Other Ambulatory Orders: Basic Metabolic Profile (BMP) (Routine) Timeframe: [id number] Facility: [facility] [place] - Location: Laboratory Ordered By: Dr. Vineet Ibrahim CBC W/Diff, Automated (Routine) Timeframe: [id number] Facility: [facility] [place] - Location: Laboratory Ordered By: Dr. Vineet Ibrahim Referrals / Follow Up: Kelsey Toure NP, [facility] [Primary Care Provider, Internal Medicine] - Within 1 Week Disposition Disposition (needs filled in before D/C Order can be placed): .Default
--- NOTE | 2025-05-28 09:18 | PCM.DC.SUM ---
Providers Date of Admission: 05/24/25 Date of Discharge: 05/28/25 Primary Care Physician: Kelsey Toure, ADAN Consultations 05/24/25 14:31 Consult: Gastroenterology Routine Consulting Provider: Sal[facility] Reason for Consult: dysphagia EMERGENT Consult: No Notified: Yes Date Notified: 05/24/25 Time Notified: 14:31 Method of Notification: Text 05/27/25 09:43 Consult: Infectious Disease Routine Consulting Provider: Parviz Naayk Reason for Consult: need for outpt antibiotics for ESBL EMERGENT Consult: No Notified: Yes Date Notified: 05/27/25 Time Notified: 09:43 Method of Notification: Text Reason For Visit: UTI Diagnosis Discharge Diagnosis (1) Acute urinary tract infection: Status: Acute Code(s): N39.0 - Urinary tract infection, site not specified Plan Patient is a 50-year-old lady with past medical history significant for spina bifida with suprapubic catheter who had been diagnosed with UTI a week prior to her admission. Was seen at an outside hospital discharged on Bactrim. Patient urine cultures however came back positive for Klebsiella pneumonia resistant to Bactrim. Patient was brought to the emergency department with worsening clinical condition and some intermittent confusion 1. Sepsis secondary to acute complicated UTI with Klebsiella pneumonia UTI ? Secondary to presence of suprapubic catheter. Patient did fail outpatient treatment. Admitted to a regular nursing floor patient was started on ceftriaxone based on cultures.Repeat cultures sent ? 05/25/2025Patient urine cultures came back positive for ESBL Klebsiella pneumoniae sp pneum. Patient has been started on cefdinir on admission discontinue started on meropenem. ? 05/26/2025; Midline was placed the day prior. Did discuss with case management plan is for patient to be discharged back to her alf with IV antibiotics 2. Acute metabolic encephalopathy ? Present on admission secondary to UTI management as discussed above ? 05/26/2025; patient back to baseline 3. Suspected aspiration ? Patient was noted to have choked on her diet subsequently kept n.p.o. consult placed to therapy for speech and swallow eval ? 05/25/2025;Patient also underwent speech and swallow eval which revealed aspiration of thin liquid, esophageal retention with retrograde flow. Recommendation was made to consult general surgery consult placed the day before ? Plan is for patient to undergo modified barium swallow after which patient will be assessed for possible ? 05/28/2025; Impressions : - Abnormal esophageal motility. Biopsied. Dilated. - A few gastric polyps. - No gross lesions in the entire examined duodenum. - Repeat swallowing study and if still abnormal she will need to undergo manometry Recommendations : - Await pathology results. 4. Hypertension ? Blood pressure controlled, home medications continued with dose adjustment as needed 5. Spina bifida ? With chronic wounds for which patient is seen at the wound care center consult was placed wound care nurse 6. GERD ? On PPI 7. Depression with anxiety ? Patient is on sertraline continue 8. Anemia ? Secondary to chronic disorder monitoring H&H and transfuse if patient becomes symptomatic or hemoglobin falls below 7 9. Obstructive sleep apnea ? PAP therapy at night 10. DVT prophylaxis ? Subcu Lovenox Time spent in the patient's overall evaluation,decision-making process, review of diagnostic data, adjustment of management, discussion with other providers, nursing nursing and ancillary staff involved in patient's care documentation, 35 Minutes Medications at Discharge Home Medications multivitamin with folic acid 400 mcg tablet (Thera) 1 tab PO QHS general health 04/24/13 omeprazole 20 mg capsule,delayed release 20 mg PO QHS acid reflux 03/11/18 aspirin 81 mg chewable tablet 81 mg PO DAILY@0800 03/14/18 polyethylene glycol 3350 17 gram oral powder packet 17 gm PO DAILY PRN PRN Constipation 09/14/20 budesonide 0.25 mg/2 mL suspension for nebulization 0.25 mg inhalation BID respiratory 10/28/21 loratadine 10 mg tablet 10 mg PO QDAY allergies 08/21/24 mupirocin calcium 2 % topical cream 1 applic topical BID skin 08/21/24 oxybutynin chloride 15 mg tablet,extended release 24 hr 5 mg PO TID BLADDER 08/21/24 psyllium husk 0.52 gram capsule (Fiber Laxative (psyllium husk)) 0.52 g PO QDAY constipation 08/21/24 sertraline 50 mg tablet 50 mg PO QDAY antidepressant 08/21/24 Bacillus coagulans 250 million cell chewable tablet (Digestive Advantage Probiotic Gummy) 1 tab PO DAILY probiotic 01/22/25 lisinopril 20 mg tablet 20 mg PO DAILY BP 01/22/25 bisacodyl 5 mg tablet,delayed release (Dulcolax (bisacodyl)) 5 mg PO ONCE PRN constipation #30 tabs 01/30/25 lubiprostone 24 mcg capsule 24 mcg PO BID constipation 01/30/25 potassium citrate 10 mEq (1,080 mg) tablet,extended release 10 meq PO BID supplement 05/23/25 ertapenem 1 gram solution for injection 1 g IV DAILY 5 days 05/27/25 Physical Exam Narrative GENERAL: Patient appears comfortable at rest HEENT: Atraumatic; normocephalic EYES; Anicteric, Normal Conjunctiva NECK; supple, normal thyroid, RESPIRATORY: Diminished to auscultation CARDIOVASCULAR: Regular S1 S2, GI: soft, normoactive bowel sounds, : Suprapubic catheter in place EXTREMITIES: No edema, no clubbing, MUSCULOSKELETAL: no muscle wasting NEURO: Awake; no lateralizing signs. SKIN: No Rash PSYCH; Flat affect Weight / BMI Weight Weight: 61.518 kg Body Mass Index (BMI) 28.3 ABG / Lab / Microbiology Data 05/28/25 05:37 05/28/25 05:37 Laboratory: Laboratory Results - last 24 hr 05/28/25 05:37: WBC 11.4 H, RBC 4.02 L, Hgb 10.9 L, Hct 34.6 L, MCV 86.1, MCH 27.1, MCHC 31.5 L, RDW Std Deviation 53.4 H, RDW Coeff of Melodie 17.2 H, Plt Count 427, MPV 9.2, Immature Gran % (Auto) 0.300, Neut % (Auto) 64.8, Lymph % (Auto) 24.9, Swisher % (Auto) 6.1, Eos % (Auto) 3.4, Baso % (Auto) 0.5, Absolute Neuts (auto) 7.4, Absolute Lymphs (auto) 2.83, Nucleated RBC % 0, Sodium 137, Potassium 4.3, Chloride 99, Carbon Dioxide 27.3, Anion Gap 11, BUN 9, Creatinine 0.37 L, Estim Creat Clear Calc 149.06, Est GFR (MDRD) Non-Af 123, BUN/Creatinine Ratio 24.2 H, Glucose 92, Calcium 9.0 Microbiology: Microbiology 05/23/25 22:45 Blood Culture (Wb) - Right Hand Blood Culture - Preliminary No growth in 48 hours. 05/23/25 22:50 Blood Culture (Wb) - Right Forearm Blood Culture - Preliminary No growth in 48 hours. 05/23/25 23:00 Urine Catheter - Catheter Urine Culture - Final ESBL Klebsiella pneumoniae pne D/C Instructions DC O2, CPAP, BIPAP Needs Home O2 Discharge instructions: No Meaningful Use Info Meaningful Use Meaningful Use Diagnoses (Choose all that apply): None applicable Discharge Plan Admission Admit Date/Time: 05/24/25 01:05 Attending Provider: Vineet Ibrahim Primary Care Provider: Kelsey Toure [employer]FORMATION TECH[employer]OLOGY INTERN Consulting Providers: Roque Nieto; Sage Pérez; Mario Rai; Juliette Mendez; Shell Brewer; Manda Butler; Parviz Nayak Discharge Orders/Prescriptions Prescriptions: New ertapenem 1 gram recon soln 1 g IV DAILY 5 Days Rx Instructions: stop date 06/01/25. Dx: ESBL infection. Routine midline care per protocol. Continued psyllium husk [Fiber Laxative (psyllium husk)] 0.52 gram capsule 0.52 g PO QDAY loratadine 10 mg tablet 10 mg PO QDAY mupirocin calcium 2 % cream 1 applic topical BID sertraline 50 mg tablet 50 mg PO QDAY lubiprostone 24 mcg capsule 24 mcg PO BID bisacodyl [Dulcolax (bisacodyl)] 5 mg tablet,delayed release (DR/EC) 5 mg PO ONCE PRN (Reason: constipation) Qty: 30 3RF Rx Instructions: as needed for constipation, take 5mg PO if no bowel movement in 48 hours and repeat daily until effective multivitamin with folic acid [Thera] 1 TABLET tablet 1 tab PO QHS omeprazole 20 MG capsule 20 mg PO QHS aspirin 81 MG tablet,chewable 81 mg PO DAILY@0800 0RF Patient Comments: to stop aspirin per Dr Hernandez/ last dose 09/18/20 polyethylene glycol 3350 17 GM packet 17 gm PO DAILY PRN PRN (Reason: Constipation) oxybutynin chloride 15 mg tablet extended release 24hr 5 mg PO TID budesonide 0.25 mg/2 mL Suspension For Nebulization 0.25 mg INHALATION BID Digestive Advantage Prob Gummy 250 million cell tablet,chewable 1 tab PO DAILY lisinopril 20 mg tablet 20 mg PO DAILY potassium citrate 10 mEq (1,080 mg) tablet extended release 10 meq PO BID Discontinued sulfamethoxazole-trimethoprim 800-160 mg tablet 1 tab PO BID Other Ambulatory Orders: Basic Metabolic Profile (BMP) (Routine) Timeframe: [id number] Facility: [facility] - Location: Laboratory Ordered By: Dr. Vineet Ibrahim CBC W/Diff, Automated (Routine) Timeframe: [id number] Facility: [facility] - Location: Laboratory Ordered By: Dr. Vineet Ibrahim Referrals / Follow Up: Kelsey Tuore NP, INFORMATION TECH[employer]OLOGY INTERN-C [Primary Care Provider, Internal Medicine] - Within 1 Week Disposition Disposition (needs filled in before D/C Order can be placed): .Default Charges/Coding Visit Charges Inpatient E&M: 70899 Disch Hosp >30min
[2025-05-28 09:19] VITALS: BP 141/93; PULSE 110; RESP 17; TEMP 36.7; O2SAT 94
[2025-05-28] MEDS: Lactobacillis Acidophilus 1 CAP PO (09:25)
[2025-05-28 09:26] VITALS: O2SAT 93
[2025-05-28] MEDS: Psyllium 1 PACKET PO (09:26)
--- NOTE | 2025-05-28 09:42 | CASEMGMT ---
Social Work Per physician, pt is ready for dc today. Pt has been accepted at [facility]. 7000 exemption form completed in [facility]. DC catalog library assistant updated and to complete DC. Disposition: [facility], skilled level of care under convalescent stay CHERYL White
--- NOTE | 2025-05-28 11:00 | PHA.DC_ITS ---
Ph[facility]acy [facility] has performed discharge medication reconciliation for this patient. The patient's discharge medication list was reviewed for discrepancies and discrepancies were resolved. Medications at Discharge Home Medications multivitamin with folic acid 400 mcg tablet (Thera) 1 tab PO QHS general health 04/24/13 omeprazole 20 mg capsule,delayed release 20 mg PO QHS acid reflux 03/11/18 aspirin 81 mg chewable tablet 81 mg PO DAILY@0800 03/14/18 polyethylene glycol 3350 17 gram oral powder packet 17 gm PO DAILY PRN PRN Constipation 09/14/20 budesonide 0.25 mg/2 mL suspension for nebulization 0.25 mg inhalation BID respiratory 10/28/21 loratadine 10 mg tablet 10 mg PO QDAY allergies 08/21/24 mupirocin calcium 2 % topical cream 1 applic topical BID skin 08/21/24 oxybutynin chloride 15 mg tablet,extended release 24 hr 5 mg PO TID BLADDER 08/21/24 psyllium husk 0.52 gram capsule (Fiber Laxative (psyllium husk)) 0.52 g PO QDAY constipation 08/21/24 sertraline 50 mg tablet 50 mg PO QDAY antidepressant 08/21/24 Bacillus coagulans 250 million cell chewable tablet (Digestive Advantage Probiotic Gummy) 1 tab PO DAILY probiotic 01/22/25 lisinopril 20 mg tablet 20 mg PO DAILY BP 01/22/25 bisacodyl 5 mg tablet,delayed release (Dulcolax (bisacodyl)) 5 mg PO ONCE PRN constipation #30 tabs 01/30/25 lubiprostone 24 mcg capsule 24 mcg PO BID constipation 01/30/25 potassium citrate 10 mEq (1,080 mg) tablet,extended release 10 meq PO BID supp lement 05/23/25 ertapenem 1 gram solution for injection 1 g IV DAILY 5 days 05/27/25
--- NOTE | 2025-05-28 12:48 | PCM.CONS.GEN ---
Assessment & Plan Assessment/Plan (1) Urinary tract infection due to ESBL Klebsiella: PLAN: Will write for 5 more days iv ertapenem once daily with dose here prior to discharge. Line in place. Will follow prn, thank you, d/w Dr. Ibrahim and case planner yesterday HPI Consult Data Date of Consult: 05/28/25 HPI Narrative Reason for Consultation: esbl infection HPI Narrative: TOMMY DE LA TORRE, is a 50 F with h/o spina bifida, suprapubic catheter in place, recurrent uti. Typical symptoms of uti are fatigue, back pain, not feeling well. Was at [facility], sent home with bactrim 10 days ago but no improvement in symptoms. No fever. Admitted her 05/24, put on meropenem, sx improved per her mother. ROS unobtainable due to mental status [facility] Medical History Suprapubic catheter History of Clostridium difficile infection Anxiety Pressure ulcer Easy bruising Dietary restriction Difficulty chewing Heartburn Sleep apnea On home oxygen therapy Hypertension Decubitus ulcer of right buttock, stage 3 Decubitus ulcer of left buttock, stage 3 GI problem Seasonal allergies Wears glasses Depression Uses wheelchair History of urinary self-catheterization Back pain Constipation Gastric reflux Non-smoker BiPAP (biphasic positive airway pressure) dependence Asthma History of edema History of echocardiogram Hx of back injury Acquired scoliosis Spina bifida Home Medications ?Medication ?Instructions ?Recorded ?Last Taken ?Type multivitamin with folic acid 400 1 tab PO QHS general health 04/24/13 05/24/25 History mcg tablet (Thera) omeprazole 20 mg capsule,delayed 20 mg PO QHS acid reflux 03/11/18 05/24/25 History release aspirin 81 mg chewable tablet 81 mg PO DAILY@0800 03/14/18 05/24/25 Rx polyethylene glycol 3350 17 gram 17 gm PO DAILY PRN PRN Constipation 09/14/20 01/22/25 History oral powder packet budesonide 0.25 mg/2 mL suspension 0.25 mg inhalation BID respiratory 10/28/21 05/24/25 History for nebulization loratadine 10 mg tablet 10 mg PO QDAY allergies 08/21/24 05/24/25 History mupirocin calcium 2 % topical cream 1 applic topical BID skin 08/21/24 05/24/25 History oxybutynin chloride 15 mg 5 mg PO TID BLADDER 08/21/24 05/24/25 History tablet,extended release 24 hr psyllium husk 0.52 gram capsule 0.52 g PO QDAY constipation 08/21/24 05/24/25 History (Fiber Laxative (psyllium husk)) sertraline 50 mg tablet 50 mg PO QDAY antidepressant 08/21/24 05/24/25 History Bacillus coagulans 250 million 1 tab PO DAILY probiotic 01/22/25 05/24/25 History cell chewable tablet (Digestive Advantage Probiotic Gummy) lisinopril 20 mg tablet 20 mg PO DAILY BP 01/22/25 05/24/25 History bisacodyl 5 mg tablet,delayed 5 mg PO ONCE PRN constipation #30 01/30/25 Unknown Rx release (Dulcolax (bisacodyl)) tabs lubiprostone 24 mcg capsule 24 mcg PO BID constipation 01/30/25 05/24/25 History potassium citrate 10 mEq (1,080 10 meq PO BID supplement 05/23/25 05/24/25 History mg) tablet,extended release ertapenem 1 gram solution for 1 g IV DAILY 5 days 05/27/25 Unknown Rx injection Allergy/AdvReac Type Severity Reaction Status Date / Time amoxicillin (From Augmentin) AdvReac Diarrhea Verified 05/23/25 20:47 azithromycin (From Zithromax AdvReac Diarrhea Verified 05/23/25 20:47 Z-Turner) ciprofloxacin (From Cipro) AdvReac Pain in Verified 05/23/25 20:47 joints clavulanic acid (From AdvReac Diarrhea Verified 05/23/25 20:47 Augmentin) Family History Other Hypertension Surgical History History of brain surgery History of incision and drainage Hx of eye surgery Hx of ileostomy History of brain shunt History of cystoscopy Hx of cholecystectomy Social History Smoking Status: Never smoker Physical Exam Const alert HEENT normocephalic and head/scalp atraumatic Eyes PERRL and EOMs intact bilaterally Neck supple and No nodes Resp normal air movement and clear to auscultation bilaterally Cardio regular rate and regular rhythm GI soft to palpation, non-tender and non-distended Extremity General Extremity: Negative for edema Skin no rashes or lesions noted Neuro CN's II-XII intact bilaterally Lab / Micro Data Attestation: I reviewed the patient's lab results. 05/28/25 05:37 05/28/25 05:37 Labs: Laboratory Results - last 24 hr 05/28/25 05:37: WBC 11.4 H, RBC 4.02 L, Hgb 10.9 L, Hct 34.6 L, MCV 86.1, MCH 27.1, MCHC 31.5 L, RDW Std Deviation 53.4 H, RDW Coeff of Melodie 17.2 H, Plt Count 427, MPV 9.2, Immature Gran % (Auto) 0.300, Neut % (Auto) 64.8, Lymph % (Auto) 24.9, Bureau % (Auto) 6.1, Eos % (Auto) 3.4, Baso % (Auto) 0.5, Absolute Neuts (auto) 7.4, Absolute Lymphs (auto) 2.83, Nucleated RBC % 0, Sodium 137, Potassium 4.3, Chloride 99, Carbon Dioxide 27.3, Anion Gap 11, BUN 9, Creatinine 0.37 L, Estim Creat Clear Calc 149.06, Est GFR (MDRD) Non-Af 123, BUN/Creatinine Ratio 24.2 H, Glucose 92, Calcium 9.0
[2025-05-28] MEDS: Ertapenem Sod 1 GM in 0.9% Normal Saline (50mL MB+) 50 ML IV (13:24)
[2025-05-28] MEDS: 0.9% Saline Lock 10 ML Syringe IV (14:33)
--- NOTE | 2025-05-28 14:44 | PCM.TXEXTCAR ---
Diet Diet Order/Speech Therapy: INPATIENT Hospital Diet / Speech Therapy Order(s) 05/27/25 14:15 Diet: Regular - General Food consistency:: Mechanical (Minced/Moist) Liquid Consistency:: [place]/Mildly Thick Speech Therapy Comments: Direct sup for all food/drink, SLOW RATE, meds whole w/ water 1 at a time Routine Orders/Code Status Code Status: Full Code DC O2, CPAP, BIPAP needs Home O2 Discharge instructions: No Wound(s) Coccyx/Back: Wound Type: Pressure Injury Therapies Physical Therapy: Eval and Treat Occupational Therapy: Eval and Treat Speech Therapy: Eval and Treat Problem/Diagnosis (1) Urinary tract infection due to ESBL Klebsiella: Status: Acute Code(s): N39.0 - Urinary tract infection, site not specified; B96.89 - Other specified bacterial agents as the cause of diseases classified elsewhere Plan Patient is a 50-year-old lady with past medical history significant for spina bifida with suprapubic catheter who had been diagnosed with UTI a week prior to her admission. Was seen at an outside hospital discharged on Bactrim. Patient urine cultures however came back positive for Klebsiella pneumonia resistant to Bactrim. Patient was brought to the emergency department with worsening clinical condition and some intermittent confusion 1. Sepsis secondary to acute complicated UTI with Klebsiella pneumonia UTI ? Secondary to presence of suprapubic catheter. Patient did fail outpatient treatment. Admitted to a regular nursing floor patient was started on ceftriaxone based on cultures.Repeat cultures sent ? 05/25/2025Patient urine cultures came back positive for ESBL Klebsiella pneumoniae sp pneum. Patient has been started on cefdinir on admission discontinue started on meropenem. ? 05/26/2025; Midline was placed the day prior. Did discuss with case management plan is for patient to be discharged back to her detention with IV antibiotics 2. Acute metabolic encephalopathy ? Present on admission secondary to UTI management as discussed above ? 05/26/2025; patient back to baseline 3. Suspected aspiration ? Patient was noted to have choked on her diet subsequently kept n.p.o. consult placed to therapy for speech and swallow eval ? 05/25/2025;Patient also underwent speech and swallow eval which revealed aspiration of thin liquid, esophageal retention with retrograde flow. Recommendation was made to consult general surgery consult placed the day before ? Plan is for patient to undergo modified barium swallow after which patient will be assessed for possible ? 05/28/2025; Impressions : - Abnormal esophageal motility. Biopsied. Dilated. - A few gastric polyps. - No gross lesions in the entire examined duodenum. - Repeat swallowing study and if still abnormal she will need to undergo manometry Recommendations : - Await pathology results. 4. Hypertension ? Blood pressure controlled, home medications continued with dose adjustment as needed 5. Spina bifida ? With chronic wounds for which patient is seen at the wound care center consult was placed wound care nurse 6. GERD ? On PPI 7. Depression with anxiety ? Patient is on sertraline continue 8. Anemia ? Secondary to chronic disorder monitoring H&H and transfuse if patient becomes symptomatic or hemoglobin falls below 7 9. Obstructive sleep apnea ? PAP therapy at night 10. DVT prophylaxis ? Subcu Lovenox Time spent in the patient's overall evaluation,decision-making process, review of diagnostic data, adjustment of management, discussion with other providers, nursing nursing and ancillary staff involved in patient's care documentation, 35 Minutes Allergies/Procedures Done in Hospital Allergies amoxicillin (From Augmentin) Adverse Reaction (Verified 05/23/25 20:47) Diarrhea azithromycin (From Zithromax Z-Turner) Adverse Reaction (Verified 05/23/25 20:47) Diarrhea ciprofloxacin (From Cipro) Adverse Reaction (Verified 05/23/25 20:47) Pain in joints clavulanic acid (From Augmentin) Adverse Reaction (Verified 05/23/25 20:47) Diarrhea Type of Care/Length of Stay Estimated LOS: Convalescent Care Less Than 30 days Type of Care Needed: Skilled Rehab Potential: Fair Prognosis: Fair Additional Orders/Day of Discharge Day of Discharge: 05/28/25 Dietary and Speech Recommendations Dietitian Recommendations/Changes: Recommend advanced diet as tolerated to regular per GAG WRITER recommendations. Recommend theron with breakfast and dinner per GAG WRITER recommendations to promote wound healing, as diet is advanced. Will monitor weight trends, labs, and PO intake. Discharge Plan Admission Admit Date/Time: 05/24/25 01:05 Attending Provider: Vineet Ibrahim Primary Care Provider: Kelsey Toure NP Consulting Providers: Roque Nieto; Sage Pérez; Mario Rai; Juliette Mendez; Shell Brewer; Manda Butler; Parviz Nayak Discharge Orders/Prescriptions Prescriptions: New ertapenem 1 gram recon soln 1 g IV DAILY 5 Days Rx Instructions: stop date 06/01/25. Dx: ESBL infection. Routine midline care per protocol. Continued psyllium husk [Fiber Laxative (psyllium husk)] 0.52 gram capsule 0.52 g PO QDAY loratadine 10 mg tablet 10 mg PO QDAY mupirocin calcium 2 % cream 1 applic topical BID sertraline 50 mg tablet 50 mg PO QDAY lubiprostone 24 mcg capsule 24 mcg PO BID bisacodyl [Dulcolax (bisacodyl)] 5 mg tablet,delayed release (DR/EC) 5 mg PO ONCE PRN (Reason: constipation) Qty: 30 3RF Rx Instructions: as needed for constipation, take 5mg PO if no bowel movement in 48 hours and repeat daily until effective multivitamin with folic acid [Thera] 1 TABLET tablet 1 tab PO QHS omeprazole 20 MG capsule 20 mg PO QHS aspirin 81 MG tablet,chewable 81 mg PO DAILY@0800 0RF Patient Comments: to stop aspirin per Dr Hernandez/ last dose 09/18/20 polyethylene glycol 3350 17 GM packet 17 gm PO DAILY PRN PRN (Reason: Constipation) oxybutynin chloride 15 mg tablet extended release 24hr 5 mg PO TID budesonide 0.25 mg/2 mL Suspension For Nebulization 0.25 mg INHALATION BID Digestive Advantage Prob Gummy 250 million cell tablet,chewable 1 tab PO DAILY lisinopril 20 mg tablet 20 mg PO DAILY potassium citrate 10 mEq (1,080 mg) tablet extended release 10 meq PO BID Discontinued sulfamethoxazole-trimethoprim 800-160 mg tablet 1 tab PO BID Other Ambulatory Orders: Basic Metabolic Profile (BMP) (Routine) Timeframe: [id number] Facility: [facility] - Location: Laboratory Ordered By: Dr. Vineet Ibrahim CBC W/Diff, Automated (Routine) Timeframe: [id number] Facility: [facility] - Location: Laboratory Ordered By: Dr. Vineet Ibrahim Referrals / Follow Up: Kelsey Toure NP, [employer] TE[employer] MEMBER-C [Primary Care Provider, Internal Medicine] - Within 1 Week Disposition Disposition (needs filled in before D/C Order can be placed): [facility] Facility
[2025-05-28 15:06] VITALS: BP 115/84; PULSE 105; RESP 17; TEMP 36.8; O2SAT 96
--- NOTE | 2025-05-28 15:36 | CASEMGMT ---
Discharge Planning Discharge orders, signed med list, and transport time sent via [facility] to [facility]. Pts mother will transport. Pt sister/legal guardian is aware of discharge. Nahomy Weiner DC Planning Asst.
--- NOTE | 2025-05-28 15:40 | NURSING ---
Report called to [facility] nurse, Chiquita. Patient's family transported patient with right upper arm midline in place.
== END 2025-05-28 15:34 | disposition skilled nursing facility (03) | DRG 698 ==
LOC: ED 22:38 → PCU 05-24 01:26
PROVIDERS: Emergency Medicine; Internal Medicine Gastroenterology; Admitting Provider Family Medicine; Emergency Provider Specialist/Technologist Athletic Trainer; PCP Nurse Practitioner Family; Visit Provider Internal Medicine
PROC: 0DJ08ZZ Inspection of Upper Intestinal Tract, Via Natural or Artificial Opening Endoscopic (ICD-10-PCS; CPT 43235; principal; 2025-05-27 12:10)
DX: T83.518A Infection and inflammatory reaction due to other urinary catheter, initial encounter (principal); G93.41 Metabolic encephalopathy; J15.0 Pneumonia due to Klebsiella pneumoniae; A41.59 Other Gram-negative sepsis; N39.0 Urinary tract infection, site not specified; I10 Essential (primary) hypertension; F32.A Depression, unspecified; D63.8 Anemia in other chronic diseases classified elsewhere; Q05.9 Spina bifida, unspecified; K21.9 Gastro-esophageal reflux disease without esophagitis; G47.33 Obstructive sleep apnea (adult) (pediatric); K22.4 Dyskinesia of esophagus; K31.7 Polyp of stomach and duodenum; F41.9 Anxiety disorder, unspecified; B96.1 Klebsiella pneumoniae [K. pneumoniae] as the cause of diseases classified elsewhere; R13.10 Dysphagia, unspecified; Z79.899 Other long term (current) drug therapy; Z79.51 Long term (current) use of inhaled steroids; Z79.82 Long term (current) use of aspirin; X58.XXXA Exposure to other specified factors, initial encounter
CPT/HCPCS: 36415; 71045; 74230; 80048; 80053; 81001; 83605; 83735; 84100; 85025; 85610; 85730; 87040; 87077; 87086; 87088; 87186; 88305; 92507; 92526; 92610; 92611; 93005; 94640; 94667; 94668; 99284; J2185; A4216; C1769; J0696